=== PATIENT | female | born 1970 | race Caucasian/White ===

== ENCOUNTER 2022-04-23 15:22 | Outpatient (CLI) | payer BC, SELFPAY ==
--- OUTSIDE RECORDS SUMMARY | 2022-04-23 15:31 | XMS_ITS ---
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 Problem Chronic fatigue R53.82 Active 5270 2002 ALLERGIES No Known Allergies ENCOUNTERS Encounter Location Date Diagnosis [facility], [place] and [place], [place] climacteric sta latonya N95.1 [address] and Acute axilla ry lymphadenitis L0 4.2 [facility] [address] 15 Sep, 2021 Encounter f or cervical Pap [place] smear with pelvi c exam [address] Z01.419 ; Screen ing for hypothyroidism Z 13.29 ; Climacteric synd gurjit N95.1 ; Weight gain R6 3.5 and Pain in other criselda int M25.[address] [facility] [address] Sep, [place] climacteric sta latonya N95.1 ; [address] Chronic fatigue R53.82 ; Pain in other criselda int M25.59 ; Lymphadenitis I88.9 and Weight gain R63. 5 IMMUNIZATIONS No Known Immunizations SOCIAL HISTORY Qualifiers Date Never Smoker REASON FOR REFERRAL FUNCTIONAL STATUS PLAN OF CARE Activity Details Future Appointment Provider Name:Nabeel Colby, 2022-05-24 10:00:00 AM, [address] [place], [address], VITAL SIGNS Height 60 in 2021-09-17 Weight 151.4 lbs 2021-09-17 BMI 29.57 kg/m2 2021-09-17 Blood pressure systolic 128 mm Hg 2021-09-17 Blood pressure diastolic 68 mm Hg 2021-09-17 MEDICATIONS Medication Instructions Dosage Frequency Start Date End Date Duration S tatus Cyclobenzaprine HCl Acti ve Calcium Active Vitamin D3 Active Probiotic Active PROCEDURES Procedure Date Ordered Result Body Site ASSAY OF SEX HORMONE GLOBUL Sep 18, 2021 GONADOTROPIN (LH) Sep 18, 2021 ASSAY OF PROLACTIN Sep 18, 2021 GONADOTROPIN (FSH) Sep 18, 2021 ASSAY OF ESTRADIOL Sep 18, 2021 DEHYDROEPIANDROSTERONE Sep 18, 2021 TOTAL CORTISOL Sep 18, 2021 ASSAY THYROID STIM HORMONE Sep 18, 2021 ASSAY OF TOTAL TESTOSTERONE Sep 18, 2021 ASSAY OF TESTOSTERONE Sep 18, 2021 COMPLETE CBC W/AUTO DIFF WBC Sep 18, 2021 RESULTS Name Result Date Reference Range CBC (INCLUDES DIFF/PLT) 2021-09-17 ABSOLUTE BASOPHILS 32 0-200 ABSOLUTE EOSINOPHILS 103 15-500 ABSOLUTE LYMPHOCYTES 2258 696-2352 ABSOLUTE MONOCYTES 697 200-950 ABSOLUTE NEUTROPHILS 3105 0030-7098 BASOPHILS 0.6 EOSINOPHILS 1.9 HEMATOCRIT 40.8 35.0-45.0 HEMOGLOBIN 13.7 11.7-15.5 LYMPHOCYTES 27.1 MCH 28.7 27.0-33.0 MCHC 33.6 32.0-36.0 MCV 85.5 80.0-100.0 MONOCYTES 12.9 MPV 9.3 7.5-12.5 NEUTROPHILS 57.5 PLATELET COUNT 291 140-400 RDW 13.0 11.0-15.0 RED BLOOD CELL COUNT 4.77 3.80-5.10 WHITE BLOOD CELL COUNT 5.4 3.8-10.8 ESTRADIOL 2021-09-17 ESTRADIOL <15 DHEA SULFATE 2021-09-17 DHEA SULFATE 26 5-167 FSH 2021-09-17 FSH 198.0 LH 2021-09-17 LH 57.3 PROLACTIN 2021-09-17 PROLACTIN 8.1 CORTISOL, TOTAL 2021-09-17 CORTISOL, TOTAL 4.1 TSH 2021-09-17 TSH 1.32 SEX HORMONE BINDING GLOBULIN 2021-09-17 SEX HORMONE BINDING GLOBULIN 55 17- 124 TESTOSTERONE, TOTAL, LC/MS/MS 2021-09-17 TESTOSTERONE, TOTAL, MS 14 2-45 TESTOSTERONE, FREE 2021-09-17 TESTOSTERONE, FREE 1.1 0.2-5.0 REASON FOR VISIT Insurance Providers [facility]ly [facility] Health Member Patient Patient Patient Patient Patient Subscriber Subscriber Subscriber Group Insurance Plan Plan Plan Plan ID Relationship Address Phone Name Date of ID Name Date of No Type Insurance Insurance Insurance Coverage to Subscriber Address Phone Name Dates BCBS [address] [place] self [place] [id number] [place] [id number] [address] [facility] [id number] MEDICAL (GENERAL) HISTORY Type Description Date Medical History Arthritits Surgical History Tonsils/adenoids- childhood Surgical History tubes as child Surgical History shoulder surgery 2018 Surgical History carpal tunnel surgery 95 and 96 Surgical History low back fusion Surgical History neck fusion 2008 Surgical History breast implants 2011 breast reduction 20 08 Surgical History hernia repair 2019
--- OUTSIDE RECORDS SUMMARY | 2022-04-23 15:31 | XMS_ITS | Clinical Summary ---
:1970 Author Organization [facility] [place] [address] Care Team Providers Name Role Phone Nonstaff, Doctor Primary Care Provider Unavailable Allergies Active Allergy Reactions Severity Noted Date Comments Mold *Unknown 01/30/2017 sinus infection Medications Medication Sig Dispensed Refills Start Date End Date Status pregabalin (LYRICA) 100 Take 75 mg by 0 Active mg capsule mouth. Lactobac 0 Active no.41-Bifidobact no.7 (PROBIOTIC-10) 70 mg (3 billion cell) cap acetaminophen (TYLENOL Take 500 mg by 0 Active EXTRA STRGTH) 500 mg mouth. tablet acetaminophen-codeine, Take 1-2 Tabs by 0 05/09/2018 Active 300-30 mg, mouth. (TYLENOL-CODEINE #3) tablet azithromycin (ZITHROMAX) TAKE 2 TABLETS 0 09/10/2018 Active 250 mg tablet BY MOUTH FOR ONE DAY THEN ONE TABLET DAILY FOR FOUR DAYS cefdinir (OMNICEF) 300 TAKE ONE CAPSULE 0 09/04/2018 Active mg capsule BY MOUTH TWICE A DAY FOR 10 DAYS cyclobenzaprine Take 10 mg by 0 Active (FLEXERIL) 10 mg tablet mouth. LYRICA 75 mg capsule 0 10/07/2018 Active Active Problems No known active problems Social History Tobacco Use Types Packs/Day Years Used Date Never Assessed Sex Assigned at Date Recorded Not on file Obstetrics History Last Filed Vital Signs Vital Sign Reading Time Taken Comments Blood Pressure - - Pulse - - Temperature - - Respiratory Rate - - Oxygen Saturation - - Inhaled Oxygen Concentration - - Weight 59 kg (130 lb) 10/20/2018 8:18 AM CDT Height 152.4 cm (5') 10/20/2018 8:18 AM CDT Body Mass Index 25.39 10/20/2018 8:18 AM CDT Plan of Treatment Health Maintenance Due Date Last Done Comments COVID-19 vaccine series (#1) 1970 Tdap 1979 Depression screening for age 12+ 1980 Hepatitis C screening for age 1005/29/1986 18-79 Tetanus booster 1988 Colonoscopy through age 75 2013 Lipids for age 45-75 2013 Mammogram for age 45-75 2013 Zoster (shingles) series for age 1005/29/2018 50+ (1 of 2) BMI (ht and wt on same day) for 10/21/2019 10/20/2018 age 18+ Pap test for age 21-65 10/16/2021 10/16/2018, 10/16/2018, 08/19/2013, Additional history exists Influenza for age 50-64 04/04/2022 Results Not on filefrom Last 3 Months Insurance Payer Benefit Plan / Subscriber ID Effective Dates Phone Addre ss Type Group BLUE CROSS BLUE CROSS OF [id number] 2017-Present [address] [place] [address] Care Teams Handling Tech Relationship Specialty Start Date End Date Nonstaff, Doctor PCP - General 06/14/11 NON STAFF DOCTOR
--- OUTSIDE RECORDS SUMMARY | 2022-04-23 15:32 | XMS_ITS | Encounter Summary ---
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 #1: Juan - Phone 1: [phone] Health and Illness - Reason for Admission heriated disc perfusion c6-7 as Stated by Patient Role Relationships/Living Environment - Significant spouse; child; 2 children (16 & 14 y.o.) Relationships - Primary parent; wage earner Roles/Responsibiliti_ es - 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; 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 For - Lives With children; spouse - Living Arrangements house; Main floor, upstairs, basement - Home Accessibility stairs w/i home; stairs to enter home; stairs (1 railing present) - Number of Stairs to 5 Enter Home - Number of Stairs 18 Within Home - Transportation family or friend will provide Available Review of Systems - Usual Activity moderate Tolerance - Regular Exercise yes - Exercise Type walking; running prior to january - Exercise 5-7 times/wk Amount/Frequency - Equipment Currently no Used at Home - Ambulation 0 - Independent with ambulation - Transferring 0 - Independent with transfers - Toileting 0- Independent with toileting - Bathing 4- Completely dependent for bathing - Dressing 4- Completely dependent for dressing - Eating 0- Independent with eating - Swallowing no swallowing issues reported - Cognition no cognition issues reported - Communication/speech no speech or language problems - Fall history within No history of falls last six months - Which of the above none functional risks had a recent onset or change? - Influenza vaccine N/A; Not currently flu season (11/02 - 05/03) - Pneumococcal Vaccine never immunized BERNICE Pressley (PT)[Signed 08:58] Authored: Role Relationships/Living Environment, Review of Systems WENDY GIANG (RN)[Signed 17:03] Authored: General Information, Health and Illness, Review of Systems Interface, Recycling Program Manager - 10/20/2010 9:18 PM CDT Progress Note - :: D: Pt arrived from PACU 1445 post ACDF, L illiac graft. VSS. Neuro's intact. Dsg anterior neck is CDI, NIYA draining scant serosanguious drainage. Pt nauseous, vomited x2, some retching. LS clear, BS hypo. IV infusing L hand. Assisted to BR x2. PVR showed 447cc. Pt would like to try to void again before being cathed. Tolerating sips of clears. Rates pain @ 4, declines pain med @ this time. I/A; Instructed in pain managment plan and to ask if she needs anything. Medicated for nausea x1. Pt has menses. Will moniter UO, straight cath if unable to empty adequately. Instructed on IS, uses with encouragement. P: Continue with POC. Signatures WENDY GIANG (RN)[Signed 18:11] Authored: Progress Note documented in this encounter Plan of Treatment Not on filedocumented as of this encounter Visit Diagnoses Not on filedocumented in this encounter
--- OUTSIDE RECORDS SUMMARY | 2022-04-23 15:32 | XMS_ITS | Encounter Summary ---
:1970 Author Organization [facility] Address [address] [place] [address] Care Team Providers Name Role Phone Unavailable Primary Care Provider Unavailable Encounter Details Date Type Department Care Team Description 03/10/2009 Office Visit-[place] [address] [place], [place] [address] (Wo rk) Social History Tobacco Use Types Packs/Day Years Used Date Never Assessed Sex Assigned at Date Recorded Not on file documented as of this encounter Progress Notes Bishop Smith MD - 03/10/2009 1:30 PM CDT Director Of Field Coordination: Aliyah Keane Status: Amended, Final Encounter: 10 Mar 2009 Type: Rooming Note Reason For Visit Neck pain/herniated cervial disk Do you have any other appointments, tests or procedures within the [facility] system for this same day? No. Pain Eval Current history of pain associated with this visit is as follows: Location: neck, bilateral upper extremities Quality: Severity: 7-8 (Pain scale 1-10, with 10 being the worst) Duration: constant Timing: constant Context: Modifying factors: Associated signs/symptoms: Personal Hx Behavioral history: No tobacco use. Home environment: No secondhand tobacco smoke in home. Vital Signs Recorded by tswi on 10 Mar 2009 01:44 PM BP:115/70, RUE, Sitting, HR: 89 b/min, Height: 60 in, Weight: 127.5 lb, BMI: 24.9 kg/m2, Pain Scale: 8. Current Meds Multivitamin/Iron TABS;TAKE 1 TABLET ONCE DAILY.; RPT Ibuprofen 200 TABS;TAKE 1 TABLET EVERY 6 HOURS NEEDED.; RPT. Signature Signed By: Aliyah Keane RN; 03/10/2009 1:45 PM SCRUB TECH. Signed By: Aliyah Keane RN; 03/10/2009 2:44 PM SCRUB TECH. Signed By: Aliyah Keane RN; 03/10/2009 4:13 PM SCRUB TECH. Bishop Smith MD - 03/10/2009 1:30 PM CDT Director Of Field Coordination: Bishop Smith Status: Final - Signature Encounter: 10 Mar 2009 Type: Neurosurgery Letter Department of Neurosurgery [address] [facility] [address] [place] [address] [facility] First Floor, Clinic [address] [place] [address] March 10, 2009 Lor Grimaldo MD [address] [place] [address] RE: Josie Booker : 1970 AROLDO: 03/10/[address] Grimaldo: It was pleasure to see Ms. Booker today in consultation for her cervical radiculopathy. As you knowglynn is a 38-year-old female who has had a several year history of neck pain. However, over the last month or two this neck pain has worsened and has started to cause problems with tingling and pain in the right arm as well as some mild tingling in the left arm. She also reports having some mild neck spasms. The patient has tried several modes of conservative therapy including cervical traction, chiropractic, physical therapy and epidural injections. These have all helped somewhat however, these haveall eventually worn off and she is left with her worsening pain. For her past medical, family, social history was reviewed and the patient filled out a neurosurgicalservices patient health history form which is scanned into the medical record. Of note the patient has previously had a lumbar fusion for spondylolisthesis. She also has had carpal tunnel surgery, otherwise she is in good health and is quite physically fit. Current medications include ibuprofen and Tylenol with codeine. 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 On examination the patient is awake, alert, and oriented, in no apparent distress. Speech is fluent and clear. The patient is oriented to person, place and time. Pupils are equal, round and reactive tolight. Extraocular movements are intact. Facial sensation is intact to light touch. Hearing is intact to speech. Facial movements are full and symmetric. Tongue is midline. Palate elevates symmetrically. Shoulder shrug is 5/5 bilaterally. Strength in upper extremities is 5/5 in all muscle groups. Strength in her lower extremities is 5/5 in all muscle groups bilaterally. Reflexes are normal and symmetric with 1 bilaterally in the triceps and biceps and 1 in the quadriceps. To pinprick testing the patient does not have any obvious sensory loss. Imaging: On review of her imaging the patient has a fairly large right-sided C6- 7 herniated disc. This is superimposed on a picture of a mild multilevel degenerative disease. Assessment: Right C7 radiculopathy with C6-7 herniated disc. Plan: I had a long discussion with Ms. Booker today about the treatment options for this. The patient has already tried multiple nonoperative management strategies. I do not have much to add in regards to this. The patient is clearly frustrated with her lack of her improvement given what she has tried so far and is eager to be rid of her pain. For cervical radiculopathy there are two potential treatment options, one would be C6-7 anterior cervical discectomy and fusion and the second would be a right C6-7 foraminotomy and posterior discectomy. The advantages and disadvantages of these were discussed with the patient. The disadvantage of the anterior surgery would be that it would be a fusion and that this could eventually lead to accelerated degeneration advancement to the level of the fusion, although relatively speaking this risk if not that great in magnitude however, the advantages that a fusion would eliminate any risk in the future of further problem at this level. A posterior cervical foraminotomy and discectomy would have the disadvantage of potentially causing more neck pain althoughI do this through a minimally invasive approach, which usually neck pain is not too problematic, butin not performing a fusion it is possible to have recurrent symptoms from more problems at this level in the future. I have discussed these problems at length with the patient and her . While the patient and her seem eager to proceed with surgery she would like the weekend to think about it, especially which approach she would prefer me to take. I stated that my first choice would probably be the anterior cervical discectomy and fusion but that the posterior approach would bequite reasonable as well. The patient is planning on calling when they return from out of town on Friday and we will discuss which approach and when we will perform the surgery. Thank you very much for this kind referral. Sincerely, Bishop Smith M.D. Crusher Assembler Department of Neurosurgery MEDINA:11 Electronically signed by:Bishop Smith M.D. Mar 15 2009 7:38AM SCRUB TECH Author documented in this encounter Plan of Treatment Not on filedocumented as of this encounter Visit Diagnoses Not on filedocumented in this encounter
--- OUTSIDE RECORDS SUMMARY | 2022-04-23 15:32 | XMS_ITS | Encounter Summary ---
:1970 Author Organization [facility] Address [address] [place] [address]. [place] [address] Care Team Providers Name Role Phone [facility] Primary Care Provide r Reason for Referral Diagnostic Imaging XR (Routine) - Closed Specialty Diagnoses / Procedures Referred By Contact Refer red To Contact Diagnoses Oropharyngeal dysphagia Richard Mullins MD Procedures XR Video Swallow with MALTED MILK SUPERVISOR or OT [facility] [address] [place] [address] Referral ID Status Reason Start Date Expiration Date Visits Requ ested Visits Authorized [id number] Closed 11/23/2021 11/23/2022 1 1 Reason for Visit Diagnostic Imaging XR (Routine) - Closed Specialty Diagnoses / Procedures Referred By Contact Refer red To Contact Diagnoses Oropharyngeal dysphagia Richard Mullins MD Procedures XR Video Swallow with MALTED MILK SUPERVISOR or OT [facility] [address] [place] [address] Referral ID Status Reason Start Date Expiration Date Visits Requ ested Visits Authorized [id number] Closed 11/23/2021 11/23/2022 1 1 Encounter Details Date Type Department Care Team Description 12/13/2021 Hospital Encounter [facility] Richard Mullins O ropharyngeal [facility] MD dysphagia [address] GA[place] [address] [phone] [address] [place] [address] Social History Tobacco Use Types Packs/Day Years Used Date Never Smoker Alcohol Use Standard Drinks/Week Comments Yes 0 (1 standard drink = 0.6 oz pure alcoho l) Sex Assigned at Date Recorded Not on file COVID-19 Exposure Response Date Recorded In the last 10 days, have you been in contact with No / Unsu re 12/13/2021 1:43 PM CDT someone who was confirmed or suspected to have Coronavirus/COVID-19? documented as of this encounter Medications at Time of Discharge Medication Sig Dispensed Refills Start Date End Date acetaminophen-codeine Take 1-2 tablets by 12 tablet 0 05/09 (TYLENOL WITH CODEINE #3) mouth every 6 hours 300-30 MG per tablet as needed for pain CYCLOBENZAPRINE HCL PO 0 oxyCODONE-acetaminophen Take 1-2 tablets by 15 tablet 0 (PERCOCET) 5-325 MG per mouth every 4 hours tablet as needed for moderate to severe pain Pregabalin (LYRICA PO) Take 75 mg by mouth 2 0 times daily Vitamins A & D (VITAMIN A Apply topically as 0 & D) ointment needed for dry skin or irritation documented as of this encounter Plan of Treatment Not on filedocumented as of this encounter Procedures Procedure Name Priority Date/Time Associated Diagnosis Comme nts XR VIDEO SWALLOW Routine 12/13/2021 2:18 PM Oropharyngeal Resu lts for this WITH MALTED MILK SUPERVISOR OR OT CDT dysphagia procedure are in the results section. documented in this encounter Results XR Video Swallow with MALTED MILK SUPERVISOR or OT (12/13/2021 2:18 PM CDT) Anatomical Region Laterality Modality Radio Fluoroscopy Specimen (Source) Anatomical Location Collection Method / Collectio n Time Received Time / Laterality Volume Impressions 12/13/2021 4:18 PM CDT IMPRESSION: 1. No aspiration or penetration. 2. Please refer to the speech pathology report for further details. This study includes only the cervical es ophagus. EVER MONTALVO MD Narrative 12/13/2021 4:18 PM CDT VIDEO SWALLOW WITH MALTED MILK SUPERVISOR OR OT ?? 12/13/2021 2:18 PM HISTORY: Oropharyngeal dysphagia. COMPARISON: None. FINDINGS: ??A swallow study was performe d in coordination with a member from the speech pathology service. Total fluoroscopy time was 0.6 minutes. 10 spot fluoroscopic images, an d/or cine clips were obtained. 1 view in lateral projection. Various co nsistencies of barium were given to the patient to swallow, and the swallowing mechanism was observed using fluoroscopy. No aspiration or penetration. Normal pil l swallowing. Procedure Note Ever Montalvo MD - 12/13/2021Forma tting of this note might be different from the original. VIDEO SWALLOW WITH MALTED MILK SUPERVISOR OR OT 12/13/2021 2 :18 PM HISTORY: Oropharyngeal dysphagia. COMPARISON: None. FINDINGS: A swallow study was performed in coordination with a member from the speech pathology service. Total fluoroscopy time was 0.6 minutes. 10 spot fluoroscopic images, an d/or cine clips were obtained. 1 view in lateral projection. Various co nsistencies of barium were given to the patient to swallow, and the swallowing mechanism was observed using fluoroscopy. No aspiration or penetration. Normal pil l swallowing. IMPRESSION: 1. No aspiration or penetration. 2. Please refer to the speech pathology report for further details. This study includes only the cervical es ophagus. EVER MONTALVO MD Richard Mullins MD IMG DIAGNOSTIC IMAGING ORDER PORSHA documented in this encounter Visit Diagnoses Diagnosis Oropharyngeal dysphagia Dysphagia, oropharyngeal phase documented in this encounter Administered Medications Inactive Administered Medications - up to 3 most recent administrations Medication Order MAR Action Action Date Dose Rate Site barium sulfate (EZ-DISK) 700 MG tablet Starting on Yadira 12/13/21 at 1400, For 1 dose, Kerry Burgess: cabinet override barium sulfate (EZ-DISK) tablet 700 mg Given 12/13/2021 2:09 PM CDT 700 mg 700 mg, Oral, ONCE, On Yadira 12/13/21 at 1430, For 1 dose barium sulfate (VARIBAR THIN Liquid) 40 % oral Given 0 12/13/2021 2:08 PM CDT 24 g suspension 24 g 24 g (60 mL), Oral, ONCE, On Yadira 12/13/21 at 1430, For 1 dose barium sulfate (VARIBAR) 40 % pudding/paste Given 12/13/2021 2:09 PM CDT 20 mLs 20 mL 20 mL, Oral, ONCE, On Yadira 12/13/21 at 1430, For 1 dose documented in this encounter Care Teams Display Associate Relationship Specialty Start Date End Date Clinic, [facility] PCP - General 05/09/[address] [place] [address] documented as of this encounter
--- OUTSIDE RECORDS SUMMARY | 2022-04-23 15:32 | XMS_ITS | Encounter Summary ---
:1970 Author Organization [facility] Address [address] [place] [address] Care Team Providers Name Role Phone Unavailable Primary Care Provider Unavailable Encounter Details Date Type Department Care Team Description 03/10/2009 Office Visit-[facility] INTERFACE [facility] DEPT Unknown, Provider Social History Tobacco Use Types Packs/Day Years Used Date Never Assessed Sex Assigned at Date Recorded Not on file documented as of this encounter Progress Notes Unknown, Provider - 03/10/2009 1:30 PM CDT Air Motor Repairer: Aliyah Keane Status: Final Encounter: 10 Mar 2009 Type: Teaching Flowsheet Teaching Flowsheet Relevant Diagnosis: herniated cervical disk Teaching Topic:pre op teaching Person(s) involved in teaching: Patient Spouse Motivation Level: Asks Questions: Yes Eager to Learn: Yes Cooperative: Yes Receptive (willing/able to accept information): Yes Patient Family demonstrates understanding of the following: Reason for the appointment, diagnosis and treatment plan: Yes Knowledge of proper use of medications and conditions for which they are ordered (with special attention to potential side effects or drug interactions): Yes Which situations necessitate calling provider and whom to contact: Yes Teaching Concerns Addressed Pre-op Teaching Discussed pre-op routine and requirements to include: surgical procedure, post- op recovery and expectations, need for H&P, NPO prior to OR, pre-op antibacterial showers, pain control and importanceof follow-up visits. Surgery scheduling will coordinate OR time/date and update patient as appropriate. 3C will call with more instructions 24-48 hour pre-op. Ample time was provided for patient questions and in-depth discussion of topics of heightened interest. An eight ounce bottle of antibacterial soap solution was given to patient as well as specific instructions for use. Patient/family/significant other verbalized understanding of instructions. Approximately 20 minutes spent with patient and family discussing and reviewing. Proper use and care of pre op folder and technicare (medical equip, care aids, etc.): Yes Nutritional needs and diet plan: Yes Pain management techniques: Yes Wound Care: Yes How and/when to access community resources: Yes Instructional Materials Used/Given: pre op folder and technicare. Signature Signed By: Aliyah Keane RN; 03/10/2009 2:48 PM PLASTIC SURGEON. documented in this encounter Plan of Treatment Not on filedocumented as of this encounter Visit Diagnoses Not on filedocumented in this encounter
--- OUTSIDE RECORDS SUMMARY | 2022-04-23 15:32 | XMS_ITS | Encounter Summary ---
:1970 Author Organization [facility] Address [address] [place] [address] Care Team Providers Name Role Phone Unavailable Primary Care Provider Unavailable Encounter Details Date Type Department Care Team Description 03/20/2009 Discharge Summary [facility] Richar Mackay (Needle Control Cheniller) [facility] MD Axel Results [facility] [address] [place], [place] [address] (Wo rk) Social History Tobacco Use Types Packs/Day Years Used Date Never Assessed Sex Assigned at Date Recorded Not on file documented as of this encounter Progress Notes Richar Dupree - 04/05/2009 8:29 AM CDT FINAL REVISED On the day of admission, Ms. Thomason underwent an uncomplicated anterior cervical decompression andfusion at C6-C7 for a large disk herniation. The surgery went well. She awoke, was neurologically intact. Her voice was working well. Her arm pain is much relieved and her triceps and other C7 enervated muscles are showing early recovery. She was able to be discharged home on the afternoon of the first postoperative day with Percocet and Valium for pain management. She will be seen in the outpatient setting in 1 week's time for further clinical follow-up. Revised account #: 04/05/2009, hn Electronically signed on 04/05/2009 08:27 by RICHAR DUPREE MD MT: Name: RAHAT THOMASON MRN: [id number] Account: [id number] : 1970 Admit Date: [id number] Discharge Date: 03/21/2009 Document: [id number] documented in this encounter Plan of Treatment Not on filedocumented as of this encounter Visit Diagnoses Not on filedocumented in this encounter
--- OUTSIDE RECORDS SUMMARY | 2022-04-23 15:32 | XMS_ITS | Clinical Summary ---
:1970 Author Organization [facility] Address [address] [place] [address] Care Team Providers Name Role Phone Clinic, [facility] Primary Care Provide r Allergies No known active allergies Medications Medication Sig Dispensed Refills Start Date End Date Status Vitamins A & D (VITAMIN Apply topically 0 Active A & D) ointment as needed for dry skin or irritation oxyCODONE-acetaminophen Take 1-2 tablets 15 tablet 0 4 Active (PERCOCET) 5-325 MG per by mouth every 4 tablet hours as needed for moderate to severe pain Pregabalin (LYRICA PO) Take 75 mg by 0 Active mouth 2 times daily CYCLOBENZAPRINE HCL PO 0 Active acetaminophen-codeine Take 1-2 tablets 12 tablet 0 05/09/2018 Active (TYLENOL WITH CODEINE by mouth every 6 #3) 300-30 MG per hours as needed tablet for pain Social History Tobacco Use Types Packs/Day Years Used Date Never Smoker Alcohol Use Standard Drinks/Week Comments Yes 0 (1 standard drink = 0.6 oz pure alcoho l) Sex Assigned at Date Recorded Not on file Last Filed Vital Signs Vital Sign Reading Time Taken Comments Blood Pressure 111/69 05/09/2018 3:30 AM CDT Pulse 76 05/09/2018 5:18 AM CDT Temperature 36.6 ??C (97.9 ??F) 05/09/2018 12:20 AM CDT Respiratory Rate 16 05/09/2018 5:18 AM CDT Oxygen Saturation 99% 05/09/2018 5:18 AM CDT Inhaled Oxygen Concentration - - Weight 58.5 kg (129 lb) 06/24/2014 7:51 PM INSTRUMENTATION AND CONTROLS TECHNICIAN Height 152.4 cm (5') 06/24/2014 7:51 PM INSTRUMENTATION AND CONTROLS TECHNICIAN Body Mass Index 25.19 06/24/2014 7:51 PM INSTRUMENTATION AND CONTROLS TECHNICIAN Plan of Treatment Health Maintenance Due Date Last Done Comments ADVANCE CARE PLANNING 1970 ANNUAL REVIEW OF HM ORDERS 1968 CT COLONOGRAPHY 1968 FIT-DNA (Cologuard) 1970 FIT 1970 FLEX SIG 1970 MAMMO SCREENING 1970 PREVENTIVE CARE VISIT 1968 COLONOSCOPY 1978 COLORECTAL CANCER SCREENING 1978 HIV SCREENING 1983 HEPATITIS C SCREENING 1986 PAP 1989 LIPID 2013 ZOSTER IMMUNIZATION (1 of 2018 2) PHQ-2 (once per calendar 08/04/2021 year) COVID-19 Vaccine (4 - 10/06/2021 06/08/2021, 10/27/2020, Booster for Moderna series) 09/28/2020 INFLUENZA VACCINE (#1) 2022 04/28/2020, 05/31/2019, 05/31/2019, Additional history exists DTAP/TDAP/TD IMMUNIZATION 05/07/2022 05/07/2012, 02/23/2009 , (5 - Td or Tdap) 04/27/1999, Additional history exists HEPATITIS B IMMUNIZATION Aged Out 02/24/2015, 01/19/2015 No longer eligible based on patient 's age to complete this topic IPV IMMUNIZATION Aged Out No longer eligi ble based on patient 's age to complete this topic MENINGITIS IMMUNIZATION Aged Out No longe r eligible based on patient 's age to complete this topic Pneumococcal Vaccine: Aged Out No longer eligible Pediatrics (0 to 5 Years) based on patient's age and At-Risk Patients (6 to to co mplete this topic 64 Years) Insurance Payer Benefit Plan / Subscriber ID Effective Dates Phone Addre ss Type Group BCBS [place] OF [place] [id number] 2017-[employer] [phone] [address] [address] Indemnity t 0 [place]EL [id number] Care Teams Concrete Vibrator Operator Relationship Specialty Start Date End Date Clinic, [facility] PCP - General 05/09/[address] [place] [address]
--- OUTSIDE RECORDS SUMMARY | 2022-04-23 15:32 | XMS_ITS | Encounter Summary ---
:1970 Author Organization [facility] Address [address] [place] [address]. [place] [address] Care Team Providers Name Role Phone [facility] Primary Care Provide r Reason for Referral Rehab Therapy Integrated Services (Routine) - Authorized Specialty Diagnoses / Procedures Referred By Contact Refer red To Contact Diagnoses Oropharyngeal dysphagia [address] [place] [address] Phone: Referral ID Status Reason Start Date Expiration Date Visits V isits Requested Authorized [id number] Authorized 11/23/2021 08/03/2022 365 365 Encounter Details Date Type Department Care Team Description 11/23/2021 Transcribe Orders GENERIC EXTERNAL Richard Mullins, Sydnie pharyngeal DATA DEPARTMENT dysphagia (Primary Dx) [facility] [address] [place], [place] [address] Social History Tobacco Use Types Packs/Day Years Used Date Never Smoker Alcohol Use Standard Drinks/Week Comments Yes 0 (1 standard drink = 0.6 oz pure alcoho l) Sex Assigned at Date Recorded Not on file documented as of this encounter Plan of Treatment Scheduled Referrals Name Type Priority Associated Diagnoses Order S chedule Speech Therapy Referral Referral Routine Oropharyngeal dys phagia Ordered: 11/23/2021 documented as of this encounter Visit Diagnoses Diagnosis Oropharyngeal dysphagia - Primary Dysphagia, oropharyngeal phase documented in this encounter Care Teams Emr Specialist Relationship Specialty Start Date End Date [facility] PCP - General 05/09/18 [address] [place] [address] documented as of this encounter
--- OUTSIDE RECORDS SUMMARY | 2022-04-23 15:32 | XMS_ITS | Encounter Summary ---
:1970 Author Organization [facility] Address [address] [place] [address]. [place] [address] Care Team Providers Name Role Phone [facility] Primary Care Provide r Reason for Visit Rehab Therapy Integrated Services (Routine) - Authorized Specialty Diagnoses / Procedures Referred By Contact Refer red To Contact Diagnoses Oropharyngeal dysphagia [address] [address] Phone: Referral ID Status Reason Start Date Expiration Date Visits V isits Requested Authorized [id number] Authorized 11/23/2021 08/03/2022 365 365 Encounter Details Date Type Department Care Team Description 12/13/2021 Hospital Encounter [facility] Adwoa Mullins MD [facility] [address] [place] [address] Rehabilitation Services Janell Chowdhury, SUPERVISOR [employer] [facility] [address] [place] [address] Social History Tobacco Use Types Packs/Day Years [...] or irritation documented as of this encounter Progress Notes Janell Chowdhury, SUPERVIS[employer] - 12/13/2021 2:58 PM CDT Video Fluoroscopic Swallow Study (VFSS): 12/13/21 1400 General Information Type Of Visit Initial Start Of Care Date 12/13/21 Referring Physician Richard Mullins MD ([facility]) Orders Evaluate And Treat Medical Diagnosis oropharyngeal dysphagia R13.12 Onset Of Illness/injury Or Date Of Surgery 11/19/21 (order date) Precautions/limitations No Known Precautions/limitations Hearing WFL Pertinent History of Current Problem/OT: Additional Occupational Profile Info Referral from pt's GI provider to assess oropharyngeal swallow function in the context of the following dysphagia symptoms: difficulty swallowing foods such as breads, feeling as if they stick near thelevel of the sternal notch. She has had the following esophageal assessments completed within the last 3 months: esophaghram (per pt results showed classic acid reflux) and EGD (per patient no significant findings). She reports getting medical care through multiple different health care entities (e.g., most recently with [facility], [place] [facility]) and I do not have access to all her PMHx/notes/testing within my EMR. Per patient, her PMHx includes: C6-7 anterior cervical fusion ~ 9 years ago. She reports she has recently been diagnosed with fibromyalgia, chronic fatigue syndrome and a neural desensitizedsyndrome. During a recent test she reports that an unidentified lesion was found at C2, provider at [place] is ordering an MRI for further assessment though this has not been completed. She says work up for MS is occuring as well. Respiratory Status Room air Prior Level Of Function Swallowing Prior Level Of Function Comment Regular solid foods/thin liquids. Recently has been taking extra time to chew her food thoroughly. 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 Patient Role/employment History Employed Patient/family Goals To figure out what's causing her dysphagia symptoms Abuse Screen (yes response referral indicated) Feels Unsafe at Home or Work/School no Feels Threatened by Someone no Does Anyone Try to Keep You From Having Contact with Others or Doing Things Outside Your Home? no Physical Signs of Abuse Present no VFSS Evaluation VFSS Additional Documentation Yes VFSS Eval: Radiology Radiologist Dr. Montalvo Views Taken left lateral;A/P Physical Location of Procedure [facility], Radiology Dept, Fluoroscopy Suite VFSS Eval: Thin Liquid Texture Trial Mode of Presentation, Thin Liquid cup;straw;self-fed Order of Presentation 1, 2, 7 Preparatory Phase WFL Oral Phase, Thin Liquid Premature pharyngeal entry Pharyngeal Phase, Thin Liquid Delayed swallow reflex Rosenbek's Penetration Aspiration Scale: Thin Liquid Trial Results 2 - contrast enters airway, remains above the vocal cords, no residue remains (penetration) Diagnostic Statement Flash laryngeal penetration with thin liquids 2/2 premature bolus spillage, though this is deemed functional. VFSS Eval: Puree Solid Texture Trial Mode of Presentation, Puree spoon;self-fed Order of Presentation 3 Preparatory Phase WFL Oral Phase, Puree WFL Pharyngeal Phase, Puree WFL Rosenbek's Penetration Aspiration Scale: Puree Food Trial Results 1 - no aspiration, contrast does not enter airway VFSS Eval: Regular Texture Trial (Solid) Mode of Presentation self-fed Order of Presentation 4, 5, 6; barium tablet: 8, 9, 10 Preparatory Phase WFL Oral Phase WFL Pharyngeal Phase WFL Rosenbek's Penetration Aspiration Scale 1 - no aspiration, contrast does not enter airway Diagnostic Statement No pharyngeal bolus retention observed even when pt verbalized beginning of sensation of food sticking, pointing to level of sternal notch (after 2nd and 3rd gosia cracker bites in a row, videos 5/6) -- by time esophageal sweep was completed, no retention was observed within esophagus either. Barium tablet with notable slow movement through esophagus, requiring x3 extra sips of water for it to enter the stomach Esophageal Phase of Swallow Patient reports or presents with symptoms of esophageal dysphagia Yes Esophageal sweep performed during today???s vidofluoroscopic exam Yes;Please refer to radiologist's report for details Esophageal comments No barium residuals observed in esophagus during esophageal sweep; Barium tabletwith notable slow movement through esophagus, requiring x3 extra sips of water for it to enter the stomach Swallow Eval: Clinical Impressions Skilled Criteria for Therapy Intervention No problems identified which require skilled intervention Functional Assessment Scale (FAS) 6 Dysphagia Outcome Severity Scale (KEVYN) Level 6 - KEVYN Treatment Diagnosis functional oropharyngeal swallow Diet texture recommendations Regular diet;Thin liquids (level 0) Recommended Feeding/Eating Techniques alternate between small bites and sips of food/liquid (chew thorroghly --- strategies for esophageal clearance) Demonstrates Need for Referral to Another Service (back to GI provider) Anticipated Discharge Disposition home Patient, family and/or staff in agreement with Plan of Care Yes Clinical Impression Comments Pt presents with no appreciable oropharyngeal dysphagia, swallow within functional limits (WFL), on video fluoroscopic swallow study. Pt assessed with thin liquids, puree solids, regular solids and 13 mm barium tablet in lateral and anteroposterior (A/P) positioning. Mastication WFL, anterior to posterior bolus oral transit WFL and oral clearance WFL. Premature bolus spillage to the pyriform sinuses with thin liquids without significant delay (judged WFL); timely pharyngeal swallow at the base of tongue with solids. Base of tongue retraction WFL, hyolaryngeal elevation/excursion WFL, epiglottic inversion WFL/complete and upper esophageal sphincter relaxation during the swallow WFL. Symmetrical bolus transfer through pharynx in A/P view. Flash laryngeal penetration with thin liquids 2/2 premature bolus spillage, though this is deemed functional. No pharyngeal bolus retention observed even when pt verbalized beginning of sensation of food sticking, pointing to level of sternal notch (after 2nd and 3rd gosia cracker bites in a row, videos 5/6) -- by time esophageal sweep was completed, no retention was observed within esophagus either. Barium tablet with notable slow movement through esophagus, requiring x3 extra sips of water for it to enterthe stomach. Pt inquiring re: C6-7 cervical hardware's possible effects on swallow - I educated her that I do notsee any posterior protrusions around this hardware (which can sometimes occur) and it did not appearto impact swallow function during this assessment. Pt educated on results of assessment directly following including video review with explanation of oropharyngeal anatomy/physiology, her current functional swallow and recommendations to follow up withGI provider. Total Session Time [employer] Eval: VideoFluoroscopic Swallow function Minutes (62011) 16 Total Evaluation Time 16 documented in this encounter Plan of Treatment Scheduled Referrals Name Type Priority Associated Diagnoses Order S chedule Speech Therapy Referral Referral Routine Oropharyngeal dys phagia Ordered: 11/23/2021 documented as of this encounter Visit Diagnoses Not on filedocumented in this encounter Care Teams Orthotics Technician Relationship Specialty Start Date End Date Clinic, [facility] PCP - General 05/09/[address] [place] [id number] documented as of this encounter
--- OUTSIDE RECORDS SUMMARY | 2022-04-23 15:32 | XMS_ITS | Encounter Summary ---
:1970 Author Organization [place] Address [address] [facility] [place] [address] Care Team Providers Name Role Phone Clinic, [facility] Primary Care Provide r Reason for Visit Reason Comments Shoulder Pain Encounter Details Date Type Department Care Team Description 05/09/2018 [facility] of [facility]; [facility] Emergency Dep t [address] [facility] Biceps tendonitis, left; [address] [place], [place] Bursitis [place] [id number] [phone] Social History Tobacco Use Types Packs/Day Years Used Date Never Smoker Alcohol Use Standard Drinks/Week Comments Yes 0 (1 standard drink = 0.6 oz pure alcoho l) Sex Assigned at Date Recorded Not on file documented as of this encounter Last Filed Vital Signs Vital Sign Reading Time Taken Comments Blood Pressure 111/69 05/09/2018 3:30 AM CDT Pulse 76 05/09/2018 5:18 AM CDT Temperature 36.6 ??C (97.9 ??F) 05/09/2018 12:20 AM CDT Respiratory Rate 16 05/09/2018 5:18 AM CDT Oxygen Saturation 99% 05/09/2018 5:18 AM CDT Inhaled Oxygen Concentration - - Weight - - Height - - Body Mass Index - - documented in this encounter Discharge Instructions Discharge InstructionsNanci De La Vega MD - 05/09/2018 4:36 AM CDT Images from the original note were not included. Understanding Biceps Tendonitis A tendon is a strong band of tissue that connects muscle to bone. The biceps muscle is in the front of the upper arm. It helps with movements such as bending the elbow or raising the arm. The upper endof the biceps muscle is called the proximal end. It has two tendons called the long head and the short head. These tendons attach the muscle to the bones in the shoulder. Biceps tendonitis occurs when either of these tendons is irritated or red and swollen (inflamed). Most cases involve the long head. Causes of biceps tendonitis Causes can include: ?? Wear and tear of the tendon from aging or normal use over time ?? Overuse of the tendon from sports or work activities, especially those that involve repeated overhead movements ?? Injury to the tendon from a fall or other accident ?? Other problems in the shoulder, such as shoulder impingement or a rotator cuff tear Symptoms of biceps tendonitis Common symptoms include: ?? Pain in the front of the shoulder that may also travel down the arm. The pain may be worse with activity and at night. ?? Swelling in the shoulder ?? Clicking or catching sensation when using the arm and shoulder ?? Trouble moving the arm and shoulder Treating biceps tendonitis Treatment for biceps tendonitis may include: ?? Resting the arm and shoulder. This involves limiting certain movements, such as reaching above the head or raising the arm. These can slow healing and make symptoms worse. You may also need to limitcertain sports and types of work for a time. ?? Cold therapy. This involves using items such as ice packs to help relieve symptoms. Cold can helpreduce pain and swelling. ?? Medicines. These help relieve pain and swelling. NSAIDs (nonsteroidal anti- inflammatory drugs) are the most common medicines used. Medicines may be prescribed or bought hyht-vbh-[id number]. They may begiven as pills. Or they may be applied to the skin in the form of a gel, cream, or patch. ?? Injections of medicine into the injured area. These help relieve pain and swelling for a time. ?? Physical therapy and exercises. ??These help improve strength and range of motion in the arm and shoulder. Possible complications ?? If the tendon isn???t given time to heal, symptoms may worsen. Also, the tendon may tear (rupture). ?? If the tendon ruptures or doesn???t get better with treatment, your healthcare provider may recommend surgery. This most often involves repairing and reattaching the tendon. ?? When to call your healthcare provider Call your healthcare provider right away if you have any of these: ?? Fever of 100.4??F (38??C) or higher, or as directed ?? Symptoms that don???t get better with treatment, or get worse ?? Weakness or instability in the arm or shoulder ?? Sudden sharp pain, bruising, swelling, popping or snapping sensation, or bulge in the upper arm or shoulder ?? New symptoms Date Last Reviewed: 10/12/2015 ?? [phone] [employer]. [address] [place] [address], [place] 1969767. All rights reserved. This information is not intended as a substitute for professional medical care. Always follow your healthcare professional's instructions. Bursitis You have bursitis. This is an inflammation of the bursa. These are small, fluid- filled sacs that surround the larger joints of the body. The bursa help the muscles and tendons move smoothly over the joints. Bursitis often happens in the shoulder. But it can also affect the elbows, hips, pelvis, knees, toes, and heels. Bursitis can be caused by injury, overuse of the joint, or infection of the bursa. Symptoms include pain and tenderness over a joint. Symptoms get worse with movement. Bursitis is treated with an anti-inflammatory medicine and by resting the joint. More severe cases require injection of medicine directly into the bursa. Home care ?? Rest the painful joint and protect it from movement. This will allow the inflammation to heal faster. ?? Apply an ice pack over the injured area for??no more than 15 to??20 minutes. Do this every??3 to 6??hours??for the first??24 to 48 hours. Keep using ice packs 3 to 4 times a day until the pain and swelling improves.? To make an ice pack, put ice cubes in a sealed plastic??zip-lock??bag. Wrap the bag in a??clean, thin??towel or cloth. Never put ice or an ice pack directly on the skin. As the ice melts, be carefulto avoid getting any wrap or splint wet. ?? You may take??czuz-zsh-dvcdzwe pain medicine to treat pain and inflammation, unless another medicine was prescribed.??Anti-inflammatory pain medicines may be more effective. Talk with your provider beforeusing these medicines if you have chronic liver or kidney disease, or ever had a stomach ulcer or GI (gastrointestinal) bleeding. ?? As your symptoms improve, slowly begin to move the joint. Do not overuse the joint. This may cause the symptoms to flare up again. When to seek medical advice Call your healthcare provider right away if any of these occur: ?? Redness over the painful area ?? Increasing pain or swelling at the joint ?? Fever of 100.4??F (38??C) or above lasting for 24 to 48 hours Date Last Reviewed: 06/24/2015 ?? [id number] [employer]. [address] [place] [address], [place] [address]. All rights reserved. This information is not intended as a substitute for professional medical care. Always follow your healthcare professional's instructions. documented in this encounter Medications at Time of Discharge [...] or irritation documented as of this encounter ED Notes Roel High RN - 05/09/2018 3:45 AM CDT Pt continues to report no pain, still appearing comfortable. Roel High RN - 05/09/2018 2:45 AM CDT Pt reports improvement in pain and that it is easier to move her arm, pt unable to give a severity number, but says she is feeling much improved, sleeping upon entry to room. Sujit Gross RN - 05/09/2018 12:18 AM CDT Left shoulder pain getting worst. History of bilateral shoulder pain, surgery on right shoulder. HasMRI schedule on . ABCs intact, gcs 15, AA&Ox3. Nanci De La Vega MD - 05/09/2018 12:08 AM CDT History Chief Complaint: Shoulder Pain HPI Josie Booker is a 47 year old female with a history of chronic back and neck pain and calcific tendinitis in both shoulders who presents with her for evaluation of left shoulder pain. Per the patient's report, she had right shoulder surgery in October to remove calcium deposits brought on by her calcific tendinitis. Her recovery went well but lately her left shoulder has been having increased pain. She notes that her left arm feels like there is a rubber band around it, decreasing circulation, and feels cold. Additionally, the patient reports that she does not have full range of motion in her left arm and her left shoulder is tender to the touch. This evening the patient went to shut a door with her left arm when pain originating in her left shoulder was so painful that it prompted her to present to the emergency department. The pain wraps around her upper arm to the front and radiates down. She had an X-ray a while ago that confirmed tendinitis in both of her shoulders but the pain in her left shoulder has accelerated faster than she remembers her right shoulder pain progressing. The patient mentions that she has an MRI scheduled for next and an appointment with her orthopedic surgeon at [facility] on June 02. All other symptoms are negative. Allergies: No known drug allergies Medications: Cyclobenzaprine Lyrica Percocet Past Medical History: The patient does not have any past pertinent medical history. Past Surgical History: Back surgery Breast surgery ENT surgery Orthopedic surgery Family History: History reviewed. No pertinent family history. Social History: Smoking status: Never smoker Alcohol use: Yes Marital Status: [2] Review of Systems Constitutional: Negative for fever. Musculoskeletal: Positive for arthralgias and myalgias. Negative for joint swelling. Skin: Negative for rash and wound. Neurological: Positive for weakness. All other systems reviewed and are negative. Physical Exam Patient Vitals for the past 24 hrs: BP Temp Temp src Pulse Heart Rate Resp SpO2 05/09/18 0358 - - - - - - 95 % 05/09/18 0357 - - - 95 95 - 95 % 05/09/18 0356 - - - - - - 95 % 05/09/18 0330 111/69 - - - - - 95 % 05/09/18 0315 121/71 - - - - - 96 % 05/09/18 0300 122/67 - - - - - 96 % 05/09/18 0245 123/70 - - - - - 93 % 05/09/18 0236 127/76 - - - - - 97 % 05/09/18 0215 - - - - - - 99 % 05/09/18 0200 - - - - - - 99 % 05/09/18 0145 - - - - - - 97 % 05/09/18 0020 (!) 140/98 97.9 ??F (36.6 ??C) Oral 103 103 24 100 % Physical Exam General: Patient is alert and interactive when I enter the room, in distress secondary to pain Head: The scalp, face, and head appear normal Eyes: Conjunctivae are normal ENT: The nose is normal Pinnae are normal External acoustic canals are normal Neck: Trachea midline CV: Pulses are normal Resp: No respiratory distress Abdomen: Soft, non-tender, non-distended Musc: Normal muscular tone Maximal and significant tenderness to insertion of proximal biceps tendon, difficulty with ROM secondary to pain and thus difficult to test strength, 2+ radial pulse, arm well perfused, no shoulder effusion palpated with no erythema or warmth Skin: No rash or lesions noted Neuro: Speech is normal and fluent. Face is symmetric. Moving all extremities well. Psych: Awake. Alert. Normal affect. Appropriate interactions. Emergency Department Course Imaging: Radiographic findings were communicated with the patient who voiced understanding of the findings. XR shoulder left G/E 3 views IMPRESSION: No acute fracture or dislocation. As read by Radiology Laboratory: CBC: WNL (WBC 7.0, HGB 12.1, PLT 212) BMP: Glucose 104 (H), Calcium 8.1 (L), WNL (Creatinine 0.97) CRP inflammation: <2.9 Erythrocyte sedimentation rate: 6 Interventions: 0206 Tylenol 300-30 MG 1 tablet PO 0234 Toradol 15 mg IM Emergency Department Course: Past medical records, nursing notes, and vitals reviewed. 0106: I performed an exam of the patient and obtained history, as documented above. IV inserted and blood drawn. The patient was sent for a shoulder XR while in the emergency department, findings above. 0203: I rechecked the patient. Explained findings to the patient. 0306: I rechecked the patient. 0436: I rechecked the patient. Findings and plan explained to the Patient. Patient discharged home with instructions regarding supportive care, medications, and reasons to return. The importance of close follow-up was reviewed. Impression & Plan Medical Decision Making: Josie Booker is a 47 year old female with a history of osteoarthritis who presents with left shoulder pain. Patient was quite uncomfortable when I arrived to the room. She has maximal tenderness at her biceps tendon which is concerning for bicep tendinitis. She has tenderness in her left triceps and u pper arm as well, she is warm and well perfused distally. It is difficult to assess strength secondary to her pain. It is very mildly warm to touch with no erythema and no obvious effusion palpated. When I did do a bedside ultrasound there was no effusion within the joint, however there was fluid around her bicep tendon and the humerus, possibly the bursa thus it could be bicep tendinitis versus shoulder bursitis. She was persistently tachycardic even though after pain medication she was greatly improved and almost resolved. Given this, we did do blood work and IV fluids. Her heart rate came down with this. She has no signs of infection on her blood work and with no fever and rapid improvement of her pain I think patient can be discharged. I will give her a course of pain medication and have her follow up with orthopedics and then get an MRI scheduled. Return precautions discussed. Patient discharged. Diagnosis: ICD-10-CM 1. Acute pain of left shoulder M25.512 CBC with platelets differential Basic metabolic panel CRP inflammation Erythrocyte sedimentation rate auto 2. Biceps tendonitis, left M75.22 3. Bursitis of shoulder, left M75.52 Disposition: discharged to home Discharge Medications: New Prescriptions ACETAMINOPHEN-CODEINE (TYLENOL WITH CODEINE #3) 300-30 MG PER TABLET Take 1-2 tablets by mouth every 6 hours as needed for pain Heron Mateo 05/09/2018 [facility] EMERGENCY DEPARTMENT Scribe Disclosure: I, Heron Mateo, am serving as a scribe at 1:06 AM on 05/09/2018 to document services personally performed by Nanci De La Vega MD based on my observations and the provider's statements to me. Nanci De La Vega MD 05/09/182309 Nanci De La Vega MD 05/09/182311 documented in this encounter Plan of Treatment Not on filedocumented as of this encounter Procedures Procedure Name Priority Date/Time Associated Comments Diagnosis CBC WITH PLATELETS & STAT 05/09/2018 3:49 AM Acute pain of left Results for this DIFFERENTIAL CDT shoulder procedure are i n the results section. ERYTHROCYTE STAT 05/09/2018 3:49 AM Acute pain of left Res ults for this SEDIMENTATION RATE CDT shoulder procedure are in AUTO the results section. CRP INFLAMMATION STAT 05/09/2018 3:49 AM Acute pain of left Results for this CDT shoulder procedure are i n the results section. BASIC METABOLIC PANEL STAT 05/09/2018 3:49 AM Acute pain of left Results for this CDT shoulder procedure are i n the results section. XR SHOULDER LEFT G/E 3 STAT 05/09/2018 1:34 AM Results for this VIEWS CDT procedure are i n the results section. documented in this encounter Results Erythrocyte sedimentation rate auto (05/09/2018 3:49 AM CDT) P athologist Signature Sed Rate 6 0 - 20 mm/h 05/09/2018 [facility] 4:33 AM CDT HOSPITAL Specimen Anatomical Collection Method Collection Time Receive d Time (Source) Location / / Volume Laterality Blood specimen 05/09/2018 3:49 AM 018 4:11 (specimen) CDT AM CDT Nanci De La Vega MD LAB - BLOOD ORDERABLES Performing Organization Address City/State/ZIP Code Phon e Number [facility] [address] [place], [place] [address] [facility] [address] [place], [place] [address] [phone] CRP inflammation (05/09/2018 3:49 AM CDT) athologist Signature CRP Inflammation <2.9 0.0 - 8.0 05/09/2018 [place] mg/L 4:23 AM [facility] Specimen Anatomical Collection Method Collection Time Receive d Time (Source) Location / / Volume Laterality Blood specimen 05/09/2018 3:49 AM 018 4:11 (specimen) CDT AM CDT Nanci De La Vega MD LAB - BLOOD ORDERABLES Performing Organization Address City/State/ZIP Code Phon e Number [place] [address] [place] [place], [place] [address] [place] [address] [address] [place], [place] [address] [phone] (ABNORMAL) Basic metabolic panel (05/09/2018 3:49 AM CDT) athologist [facility] Sodium 139 133 - 144 05/09/2018 [place] mmol/L 4:23 AM [facility] Potassium 3.8 3.4 - 5.3 05/09/2018 [place] mmol/L 4:23 AM [facility] Chloride 107 94 - 109 05/09/2018 [facility] mmol/L 4:23 AM [facility] Carbon Dioxide 27 20 - 32 05/09/2018 [place] mmol/L 4:23 AM [facility] Anion Gap 5 3 - 14 05/09/2018 [facility] mmol/L 4:23 AM [facility] Glucose 104 (H) 70 - 99 05/09/2018 [place] mg/dL 4:23 AM [facility] Urea Nitrogen 19 7 - 30 05/09/2018 [place] mg/dL 4:23 AM [facility] Creatinine 0.97 0.52 - 05/09/2018 [facility] 1.04 mg/dL 4:23 AM [facility] GFR Estimate 61 >60 05/09/2018 [place] mL/min/1.7 4:[address] Comment: Non GFR Calc GFR Estimate If 74 >60 mL/min/1.7m2 05/09/2018 4:23 A M [facility] Comment: GFR Calc Calcium 8.1 (L) 8.5 - 10.1 mg/dL 05/09/2018 4:23 AM [facility] Specimen Anatomical Collection Method Collection Time Receive d Time (Source) Location / / Volume Laterality Blood specimen 05/09/2018 3:49 AM 018 4:11 (specimen) CDT AM CDT Nanci De La Vega MD LAB - BLOOD ORDERABLES Performing Organization Address City/State/ZIP Code Phon e Number [place] [address] [address] [place] [address] [facility] [address] [phone] CBC with platelets differential (05/09/2018 3:49 AM CDT) [facility] Method Time Signature WBC 7.0 4.0 - 05/09/2018 [facility] 11.0 4:13 AM [facility] 10e9/L [facility] RBC Count 4.17 3.8 - 5.2 05/09/2018 [facility] 10e12/L 4:13 AM [facility] Hemoglobin 12.1 11.7 - 05/09/2018 [facility] 15.7 g/dL 4:13 AM [facility] Hematocrit 35.4 35.0 - 05/09/2018 [facility] 47.0 % 4:13 AM [facility] MCV 85 78 - 100 05/09/2018 [facility] fl 4:13 AM [facility] MCH 29.0 26.5 - 05/09/2018 [facility] 33.0 pg 4:13 AM [facility] MCHC 34.2 31.5 - 05/09/2018 [facility] 36.5 g/dL 4:13 AM [facility] RDW 12.5 10.0 - 05/09/2018 [facility] 15.0 % 4:13 AM [facility] Platelet Count 212 150 - 450 05/09/2018 [facility] 10e9/L 4:13 AM [facility] Diff Method Automated 05/09/2018 [facility] Method 4:13 AM [facility] % Neutrophils 74.6 % 05/09/2018 [facility] 4:13 AM [facility] % Lymphocytes 13.2 % 05/09/2018 [facility] 4:13 AM [facility] % Monocytes 10.7 % 05/09/2018 [facility] 4:13 AM [facility] % Eosinophils 0.6 % 05/09/2018 [facility] 4:13 AM [facility] % Basophils 0.6 % 05/09/2018 [facility] 4:13 AM [facility] % Immature 0.3 % 05/09/2018 [facility] Granulocytes 4:13 AM [facility] Nucleated RBCs 0 0 /100 05/09/2018 [facility] 4:13 AM [facility] Absolute 5.2 1.6 - 8.3 05/09/2018 [facility] Neutrophil 10e9/L 4:13 AM [facility] Absolute 0.9 0.8 - 5.3 05/09/2018 [facility] Lymphocytes 10e9/L 4:13 AM [facility] Absolute 0.8 0.0 - 1.3 05/09/2018 [facility] Monocytes 10e9/L 4:13 AM [facility] Absolute 0.0 0.0 - 0.7 05/09/2018 [facility] Eosinophils 10e9/L 4:13 AM [facility] Absolute 0.0 0.0 - 0.2 05/09/2018 [facility] Basophils 10e9/L 4:13 AM [facility] Abs Immature 0.0 0 - 0.4 05/09/2018 [facility] Granulocytes 10e9/L 4:13 AM [facility] Absolute 0.0 05/09/2018 [facility] Nucleated RBC 4:13 AM [facility] Specimen Anatomical Collection Method Collection Time Receive d Time (Source) Location / / Volume Laterality Blood specimen 05/09/2018 3:49 AM 018 4:11 (specimen) CDT AM T Nanci De La Vega MD LAB - BLOOD ORDERABLES Performing Organization Address City/State/ZIP Code Phon e Number M [facility] [address] [place] [address] [facility] [address] [address] [phone] XR Shoulder Left G/E 3 Views (05/09/2018 1:34 AM CDT) Anatomical Region Laterality Modality Shoulder, Left Shoulder Left Digital Radiogra phy Specimen (Source) Anatomical Location Collection Method / Collectio n Time Received Time / Laterality Volume Impressions 05/09/2018 3:04 AM CDT IMPRESSION: No acute fracture or dislocation. SRIRAM CRAIG MD Narrative 05/09/2018 3:04 AM CDT XR SHOULDER LT G/E 3 VW ??05/09/2018 1:34 AM INDICATION: Pain, no trauma. COMPARISON: None. Procedure Note Sriram Craig MD - 05/09/2018F ormatting of this note might be different from the original. XR SHOULDER LT G/E 3 VW 05/09/2018 1:34 A M INDICATION: Pain, no trauma. COMPARISON: None. IMPRESSION: No acute fracture or disloca tion. SRIRAM CRAIG MD Nanci De La Vega MD IMG DIAGNOSTIC IMAGING ORDER PORSHA documented in this encounter Visit Diagnoses Diagnosis Acute pain of left shoulder Biceps tendonitis, left Bursitis of shoulder, left Disorders of bursae and tendons in shoul daly region, unspecified documented in this encounter Administered Medications Inactive Administered Medications - up to 3 most recent administrations Medication Order MAR Action Action Date Dose Rate Site acetaminophen-codeine (TYLENOL Given 05/09/2018 2:06 AM CDT 1 ta blet #3) 300-30 MG per tablet 1 tablet 1 tablet, Oral, ONCE, On 05/09/18 at 0201, For 1 dose, Maximum acetaminophen dose from all sources= 75 mg/kg/day not to exceed 4 grams ketorolac (TORADOL) injection 15 mg Given 05/09/2018 2:34 AM CDT 15 mg 15 mg, Intramuscular, ONCE, On 05/09/18 at 0229, For 1 dose, Can cause pain on injection. Administer through a running maintenance fluid over 1 minute followed by a flush. If patient complains of pain on injection, may dilute 15-30 mg in 5 mL and push over 1 to 2 minutes. documented in this encounter Active and Recently Administered Medications Times are shown in CDT. Scheduled Medication Order 05/07/2018 05/08/2018 05/09/2018 acetaminophen-codeine (TYLENOL #3) 300-30 MG per tablet 1 tablet (COMPLETED) 0206 (Given - Provider: Terrell Haji RN) 1 tablet, Oral, ONCE, 05/09/18 at 020 1, For 1 dose, Maximum acetaminophen dose from all sources= 75 mg/kg/day not to exceed 4 grams ketorolac (TORADOL) injection 15 mg (COMPLETED) 0234 (Given - Provider: Terrell Haji RN) 15 mg, Intramuscular, ONCE, 05/09/18 at 0229, For 1 dose, Can cause pain on injection. Administer through a running maintenance fluid over 1 minute followed by a flush. If patient complains of pain o n injection, may dilute 15-30 mg in 5 mL and push over 1 to 2 mi nutes. documented in this encounter Care Teams Press Washer Relationship Specialty Start Date End Date Clinic, [facility] PCP - General 05/09/[address] [place] [id number] documented as of this encounter
--- OUTSIDE RECORDS SUMMARY | 2022-04-23 15:32 | XMS_ITS | Encounter Summary ---
:1970 Author Organization [facility] Address [address] [place] [address] Care Team Providers Name Role Phone Clinic, [facility] Primary Care Provider [phone] Reason for Visit Reason Comments Abdominal Pain Encounter Details Date Type Department Care Team Description 06/24/2014 Emergency [facility] Gene Reddy MD Acute epigastric pain (Primary Dx); [facility] Emergency Dep t EMERGENCY PHYSICIANS Atypical chest pain [address] [place], [place] [address] [id number] [place] [address] [place] [address] (Wo rk) Social History Tobacco Use Types Packs/Day Years Used Date Never Smoker Alcohol Use Standard Drinks/Week Comments Yes 0 (1 standard drink = 0.6 oz pure alcoho l) Sex Assigned at Date Recorded Not on file documented as of this encounter Last Filed Vital Signs Vital Sign Reading Time Taken Comments Blood Pressure 107/69 06/24/2014 10:15 PM TRUCK MANAGER Pulse 97 06/24/2014 7:51 PM TRUCK MANAGER Temperature 37.1 ??C (98.8 ??F) 06/24/2014 7:51 PM TRUCK MANAGER Respiratory Rate 18 06/24/2014 7:51 PM TRUCK MANAGER Oxygen Saturation 96% 06/24/2014 10:15 PM TRUCK MANAGER Inhaled Oxygen Concentration - - Weight 58.5 kg (129 lb) 06/24/2014 7:51 PM TRUCK MANAGER Height 152.4 cm (5') 06/24/2014 7:51 PM TRUCK MANAGER Body Mass Index 25.19 06/24/2014 7:51 PM TRUCK MANAGER documented in this encounter Discharge Instructions Discharge InstructionsShapin, Gene P, MD - 06/24/2014 10:06 PM CST Discharge Instructions Abdominal Pain Abdominal pain can be caused by many things. Your evaluation today does not show the exact cause foryour pain. Your doctor today has decided that it is unlikely your pain is due to a life threatening problem, or a problem requiring surgery or hospital admission. Sometimes those problems cannot be found right away, so it is very important that you follow up as directed. Sometimes only the changes which occur over time allow the cause of your pain to be found. Return to the Emergency Department for a recheck in 8-12 hours if your pain continues. If your pain gets worse, changes in location, or feels different, return to the Emergency Department right away. ADULTS: Return to the Emergency Department right away if: ??? You get an oral temperature above 102oF or as directed by your doctor. ??? You have blood in your stools (bright red or black, tarry stools). ??? You keep throwing up or can???t drink liquids. ??? You see blood when you throw up. ??? You can???t have a bowel movement or you can???t pass gas. ??? Your stomach gets bloated or bigger. ??? Your skin or the whites of your eyes look yellow. ??? You faint. ??? You have bloody, frequent or painful urination. ??? You have new symptoms or anything that worries you. CHILDREN: Return to the Emergency Department right away if your child has any of the above-listed symptoms or the following: ??? Pushes your hand away or screams/cries when his/her belly is touched. ??? You notice your child is very fussy or weak. ??? Your child is very tired and is too tired to eat or drink. ??? Your child is dehydrated. Signs of dehydration can be: o Your has had no wet diapers in 4-5 hours. o Your older child has not passed urine in 6-8 hours. o Your infant or child starts to have dry mouth and lips, or no saliva or tears. WOMEN: Return to the Emergency Department right away if you have any of the above-listed symptoms or the following: ??? You have bleeding, leaking fluid or passing tissue from the vagina. ??? You have worse pain or cramping, or pain in your shoulder or back. ??? You have vomiting that will not stop. ??? You have painful or bloody urination. ??? You have a temperature of 100oF or more. ??? Your baby is not moving as much as usual. ??? You faint. ??? You get a bad headache with or without eye problems and abdominal pain. ??? You have a convulsion or seizure. ??? You have unusual discharge from your vagina and abdominal pain. Abdominal pain is pretty common during . Your pain may or may not be related to your . You should follow-up closely with your OB doctor so they can evaluate you and your baby. Until you follow-up with your regular doctor, do the following: ??? Avoid sex and do not put anything in your vagina. ??? Drink clear fluids. ??? Only take medications approved by your doctor. MORE INFORMATION: Appendicitis: A possible cause of abdominal pain in any person who still has their appendix is acuteappendicitis. Appendicitis is often hard to diagnose. Testing does not always rule out early appendicitis or other causes of abdominal pain. Close follow-up with your doctor and re-evaluations may be needed to figure out the reason for your abdominal pain. Follow-up: It is very important that you make an appointment with your clinic and go to the appointment. If you do not follow-up with your primary doctor, it may result in missing an important development which could result in permanent injury or disability and/or lasting pain. If there is any problemkeeping your appointment, call your doctor or return to the Emergency Department. Medications: Take your medications as directed by your doctor today. Before using ylip-hop-suibmxd medications, ask your doctor and make sure to take the medications as directed. If you have any questions about medications, ask your doctor. Diet: Resume your normal diet as much as possible, but do not eat fried, fatty or spicy foods while you have pain. Do not drink alcohol or have caffeine. Do not smoke tobacco. Probiotics: If you have been given an antibiotic, you may want to also take a probiotic pill or eat yogurt with live cultures. Probiotics have good bacteria to help your intestines stay healthy. Studies have shown that probiotics help prevent diarrhea and other intestine problems (including C. diff infection) when you take antibiotics. You can buy these without a prescription in the pharmacy section of the store. If you were given a prescription for medicine here today, be sure to read all of the information (including the package insert) that comes with your prescription. This will include important information about the medicine, its side effects, and any warnings that you need to know about. The pharmacist who fills the prescription can provide more information and answer questions you may have about the medicine. If you have questions or concerns that the pharmacist cannot address, please call or return to the Emergency Department. Opioid Medication Information Pain medications are among the most commonly prescribed medicines, so we are including this information for all our patients. If you did not receive pain medication or get a prescription for pain medicine, you can ignore it. You may have been given a prescription for an opioid (narcotic) pain medicine and/or have received apain medicine while here in the Emergency Department. These medicines can make you drowsy or impaired. You must not drive, operate dangerous equipment, or engage in any other dangerous activities whiletaking these medications. If you drive while taking these medications, you could be arrested for DUI, or driving under the influence. Do not drink any alcohol while you are taking these medications. Opioid pain medications can cause addiction. If you have a history of chemical dependency of any type, you are at a higher risk of becoming addicted to pain medications. Only take these prescribed medications to treat your pain when all other options have been tried. Take it for as short a time and asfew doses as possible. Store your pain pills in a secure place, as they are frequently stolen and provide a dangerous opportunity for children or visitors in your house to start abusing these powerful medications. We will not replace any lost or stolen medicine. As soon as your pain is better, you should flush all your remaining medication. Many prescription pain medications contain Tylenol?? (acetaminophen), including Vicodin??, Tylenol #3??, Elkin??, Lortab??, and Percocet??. You should not take any extra pills of Tylenol?? if you are using these prescription medications or you can get very sick. Do not ever take more than 3000 mg of acetaminophen in any 24 hour period. All opioids tend to cause constipation. Drink plenty of water and eat foods that have a lot of fiber, such as fruits, vegetables, prune juice, apple juice and high fiber cereal. Take a laxative if you don???t move your bowels at least every other day. Miralax??, Milk of Magnesia, Colace??, or Senna?? can be used to keep you regular. Remember that you can always come back to the Emergency Department if you are not able to see your regular doctor in the amount of time listed above, if you get any new symptoms, or if there is anything that worries you. Discharge Instructions Chest Pain You have been seen today for chest pain or discomfort. At this time, your doctor has found no signs that your chest pain is due to a serious or life-threatening condition, (or you have declined more testing and/or admission to the hospital). However, sometimes there is a serious problem that does not show up right away. Your evaluation today may not be complete and you may need further testing and evaluation. You need to follow-up with your regular doctor within 3 days. Return to the Emergency Department if: ??? Your chest pain changes, gets worse, starts to happen more often, or comes with less activity. ??? You are short of breath. ??? You get very weak or tired. ??? You pass out or faint. ??? You have any new symptoms, like fever, cough, numb legs, or you cough up blood. ??? You have anything else that worries you. Until you follow-up with your regular doctor please do the following: ??? Take one aspirin daily unless you have an allergy or are told not to by your doctor. ??? If a stress test appointment has been made, go to the appointment. ??? If you have questions, contact your regular doctor. If your doctor today has told you to follow-up with your regular doctor, it is very important that you make an appointment with your clinic and go to the appointment. If you do not follow-up with your primary doctor, it may result in missing an important development which could result in permanent injury or disability and/or lasting pain. If there is any problem keeping your appointment, call your doctor or return to the Emergency Department. If you were given a prescription for medicine here today, be sure to read all of the information (including the package insert) that comes with your prescription. This will include important information about the medicine, its side effects, and any warnings that you need to know about. The pharmacist who fills the prescription can provide more information and answer questions you may have about the medicine. If you have questions or concerns that the pharmacist cannot address, please call or return to the Emergency Department. Opioid Medication Information Pain medications are among the most commonly prescribed medicines, so we are including this information for all our patients. If you did not receive pain medication or get a prescription for pain medicine, you can ignore it. You may have been given a prescription for an opioid (narcotic) pain medicine and/or have received apain medicine while here in the Emergency Department. These medicines can make you drowsy or impaired. You must not drive, operate dangerous equipment, or engage in any other dangerous activities whiletaking these medications. If you drive while taking these medications, you could be arrested for DUI, or driving under the influence. Do not drink any alcohol while you are taking these medications. Opioid pain medications can cause addiction. If you have a history of chemical dependency of any type, you are at a higher risk of becoming addicted to pain medications. Only take these prescribed medications to treat your pain when all other options have been tried. Take it for as short a time and asfew doses as possible. Store your pain pills in a secure place, as they are frequently stolen and provide a dangerous opportunity for children or visitors in your house to start abusing these powerful medications. We will not replace any lost or stolen medicine. As soon as your pain is better, you should flush all your remaining medication. Many prescription pain medications contain Tylenol?? (acetaminophen), including Vicodin??, Tylenol #3??, Elkin??, Lortab??, and Percocet??. You should not take any extra pills of Tylenol?? if you are using these prescription medications or you can get very sick. Do not ever take more than 3000 mg of acetaminophen in any 24 hour period. All opioids tend to cause constipation. Drink plenty of water and eat foods that have a lot of fiber, such as fruits, vegetables, prune juice, apple juice and high fiber cereal. Take a laxative if you don???t move your bowels at least every other day. Miralax??, Milk of Magnesia, Colace??, or Senna?? can be used to keep you regular. Remember that you can always come back to the Emergency Department if you are not able to see your regular doctor in the amount of time listed above, if you get any new symptoms, or if there is anything that worries you. K MANAGER documented in this encounter Medications at Time of Discharge Medication Sig Dispensed Refills Start Date End Date oxyCODONE-acetaminophen Take 1-2 tablets by 15 tablet 0 (PERCOCET) 5-325 MG per mouth every 4 hours tablet as needed for moderate to severe pain Vitamins A & D (VITAMIN A Apply topically as 0 & D) ointment needed for dry skin or irritation ondansetron (ZOFRAN ODT) Take 1 tablet (4 mg) 10 tablet 0 1 08/24/2013 06/27/2014 4 MG disintegrating by mouth every 8 tablet hours as needed for nausea ranitidine (ZANTAC) 150 Take 1 tablet (150 30 tablet 0 06/0507/09/2014 MG tablet mg) by mouth 2 times daily for 15 days documented as of this encounter ED Notes Jennifer Young RN - 06/24/2014 8:35 PM CST Pt refused dilaudid. K MANAGER Gene Reddy MD - 06/24/2014 7:56 PM CST History Chief Complaint: Abdominal Pain HPI Josie Booker is an otherwise healthy 44 year old female who presents with abdominal pain. At approximately 7 AM today the patient states she developed dull, achy diffuse abdominal pain that was intermittent throughout the day and resolved after lunch. At approximately 3:30 PM the patient states shehad the onset of severe RUQ pain that made it difficult to breathe and she doubled over. [facility] [place], had a GI cocktail with no relief, had a bedside US performed, and was diagnosed with a gall stone. She was advised to present to the ED for possible surgical intervention. Currently here in the ED the patient complains of RUQ abdominal pain that radiates tothe mid sternum. The patient states she has never had this pain before. She denies nausea, vomit, orfever. The patient also reports feeling fatigued as of late. She voices no other complaints at this time. Allergies: NKDA Medications: The patient is currently on no regular medications. Past Medical History: History reviewed. No pertinent past medical history. Past Surgical History: Breast surgery Back surgery ENT surgery Orthopedic surgery Family History: The patient denies a pertinent family history. Social History: Marital status: Tobacco use: negative Alcohol use: negative Patient presents to the ED with . Review of Systems Constitutional: Positive for fatigue. Negative for fever. Cardiovascular: Positive for chest pain. Gastrointestinal: Positive for abdominal pain. Negative for nausea and vomiting. All other systems reviewed and are negative. Physical Exam First Vitals: BP: 134/81 mmHg Pulse: 97 Temp: 98.8 ??F (37.1 ??C) Resp: 18 Height: 152.4 cm (5') Weight: 58.514 kg (129 lb) SpO2: 98 % Physical Exam Constitutional: Oriented to person, place, and time. Appears in minor distress secondary to pain. HENT: Head: Atraumatic Mouth/Throat: Oropharynx is clear and moist. Eyes: EOM are normal. Pupils are equal, round, and reactive to light. Neck: Neck supple. Cardiovascular: Normal rate, regular rhythm and normal heart sounds. Exam reveals no gallop and no friction rub. No murmur heard. Pulmonary/Chest: Effort normal and breath sounds normal. No respiratory distress. No wheezes. No rales. Abdominal: Soft. No distension.RUQ tenderness with positive Valenzuela's sign. No rebound and no guarding. Musculoskeletal: Normal range of motion. Neurological: Alert and oriented to person, place, and time. Moves all 4 extremities spontaneously Skin: No rash noted. No pallor. Emergency Department Course ECG: @ 2019 Rate 88 bpm. AK interval 150 ms. QRS duration 66 ms. QT/QTc 346/418 ms. P-R-T axes 65. Notes: Normal sinus rhythm with sinus arrhythmia. Septal infarct, age undetermined. Abnormal ECG. Time read 2019. Imaging: US Abdomen Limited: IMPRESSION: Negative, no gallstones identified. REJI CASILLAS MD Radiographic findings were communicated with the patient and family who voiced understanding of the findings. Laboratory: CBC: WBC 5.7 (WNL) HGB 14.9 (WNL) PLT 212 (WNL) Rest WNL CMP: Cr 1.02 (WNL) GFR 58 (low) Alkphos 22 (low) Rest WNL Lipase: 239 (WNL) HCG: negative Interventions: Zantac, 50 mg, IV Zofran, 4 mg, IV NS, 1 L, IV ED Course: The patient was roomed. The patient was placed on pulse oximetry. The patient's medical charts were reviewed and I examined the patient. I personally reviewed the laboratory results with the Patient and spouse and answered all related questions prior to discharge. Findings and plan explained to the Patient and spouse. Patient discharged home with instructions regarding supportive care, medications, and reasons to return. The importance of close follow-up was reviewed. The patient was prescribed Percocet, Zofran, and Zantac. Impression & Plan Medical Decision Making: This patient is a 44 year old female who presents to the ED complaining of RUQ abdominal pain radiating to her chest. She was referred here from her primary doctor???s office with concern for possible biliary colic. The differential includes biliary colic, pneumothorax, GERD, ACS, gastritis, and othercauses. She had a work up as seen above. Her ECG shows no ischemic changes. Her troponin was negative. The patient has a PERC score of zero and I think PE is unlikely. US is negative for obvious occultcystitis. Lab work is otherwise reassuring. Upon reevaluation the patient???s pain has greatly improved. There still may be biliary colic. If symptoms continue she may require a HIDA scan which I do bel ieve can be appropriately done as an outpatient. She will be discharged to home with a prescription for Zantac, Zofran, and Percocet. The patient was advised to follow up with her PCP. She should return for worsening abdominal pain, fever, vomiting, shortness of breath, or chest pain. Diagnosis: 1. Acute epigastric pain (789.06, 338.19) 2. Atypical chest pain (786.59) Disposition: The patient was discharged home and advised to follow up with PCP. IMaria T, am serving as a scribe on 06/24/2014 at 7:56 PM to personally document servicesperformed by Dr. Shapin based on my observations and the provider's statements to me. Gene Reddy MD 06/24/14 2244 K MANAGER Aimee Taylor, RN - 06/24/2014 7:54 PM CST Sent over from clinic, epigastric pain started this am subsided and then again worse at home 05/13 Did have U/S Tonight at Dx with gallstone Was told to come over to er and have possible surgery ABC intact K MANAGER documented in this encounter Plan of Treatment Not on filedocumented as of this encounter Procedures Procedure Name Priority Date/Time Associated Comments Diagnosis XR CHEST 2 VIEWS STAT 06/24/2014 10:02 Results for this PM TRUCK MANAGER procedure are i n the results section. TROPONIN POCT Routine 06/24/2014 9:38 PM Results for this TRUCK MANAGER procedure are i n the results section. US ABDOMEN LIMITED STAT 06/24/2014 9:14 PM Res ults for this TRUCK MANAGER procedure are i n the results section. CBC WITH PLATELETS & STAT 06/24/2014 8:30 PM R esults for this DIFFERENTIAL TRUCK MANAGER procedure are i n the results section. LIPASE STAT 06/24/2014 8:30 PM Results f or this TRUCK MANAGER procedure are i n the results section. HCG QUALITATIVE STAT 06/24/2014 8:30 PM Result s for this TRUCK MANAGER procedure are i n the results section. COMPREHENSIVE STAT 06/24/2014 8:30 PM Results for this METABOLIC PANEL TRUCK MANAGER procedure ar e in the results section. EKG 12-LEAD, TRACING STAT 06/24/2014 8:19 PM R esults for this ONLY TRUCK MANAGER procedure are i n the results section. documented in this encounter Results Chest XR, PA & LAT (06/24/2014 10:02 PM TRUCK MANAGER) Anatomical Region Laterality Modality Chest Computed Radiography Specimen (Source) Anatomical Location Collection Method / Collectio n Time Received Time / Laterality Volume Impressions 06/24/2014 10:04 PM TRUCK MANAGER IMPRESSION: No active infiltrate. ? REJI CASILLAS MD Narrative 06/24/2014 10:04 PM TRUCK MANAGER XR CHEST 2 VW ?? 06/24/2014 10:02 PM HISTORY: chest pain, COMPARISON: None. FINDINGS: The heart is negative. ??The l ungs are clear. The pulmonary vasculature is normal. ??The bones and s oft tissues are unremarkable. ? Procedure Note Thien Casillas MD - 06/24/2014For matting of this note might be different from the original. XR CHEST 2 VW 06/24/2014 10:02 PM HISTORY: chest pain, COMPARISON: None. FINDINGS: The heart is negative. The jeanne gs are clear. The pulmonary vasculature is normal. The bones and sof t tissues are unremarkable. IMPRESSION IMPRESSION: No active infiltrate. REJI CASILLAS MD Gene Reddy MD IMG DIAGNOSTIC IMAGING ORDER PORSHA Troponin POCT (06/24/2014 9:38 PM TRUCK MANAGER) athologist Signature Troponin I 0.00 0.00 - 0.10 POINT OF CARE ug/L TEST, HANDHELD METER Specimen Anatomical Collection Method Collection Time Receive d Time (Source) Location / / Volume Laterality 06/24/2014 9:38 PM 4 TRUCK MANAGER 10:00 PM TRUCK MANAGER Gene Reddy MD LAB - ENTER/EDIT POCT Performing Organization Address City/State/ZIP Code Phon e Number FV POINT OF CARE TEST, HANDHELD METER POINT OF CARE TEST, HANDHELD METER US Abdomen Limited (06/24/2014 9:14 PM TRUCK MANAGER) Anatomical Region Laterality Modality Abdomen/Pelvis Ultrasound Specimen (Source) Anatomical Location Collection Method / Collectio n Time Received Time / Laterality Volume Impressions 06/24/2014 9:25 PM TRUCK MANAGER IMPRESSION: ??Negative, no gallstones identified. REJI CASILLAS MD Narrative 06/24/2014 9:25 PM TRUCK MANAGER US ABDOMEN LIMITED ??06/24/2014 9:14 PM HISTORY: ??RUQ pain, COMPARISON: None. FINDINGS: Gallbladder: Normal with no cholelithias is, no wall thickening, and no focal tenderness. Bile ducts: ??CHD is normal diameter. ?? No intrahepatic biliary dilatation. Liver: ??Normal. Pancreas: ??Normal. Right kidney: ??Normal. ? Procedure Note Thien Casillas MD - 06/24/2014For matting of this note might be different from the original. US ABDOMEN LIMITED 06/24/2014 9:14 PM HISTORY: RUQ pain, COMPARISON: None. FINDINGS: Gallbladder: Normal with no cholelithias is, no wall thickening, and no focal tenderness. Bile ducts: CHD is normal diameter. No i ntrahepatic biliary dilatation. Liver: Normal. Pancreas: Normal. Right kidney: Normal. IMPRESSION IMPRESSION: Negative, no gallstones iden tified. REJI CASILLAS MD Gene Reddy MD IMG US ORDERABLES HCG QUALitative (06/24/2014 8:30 PM TRUCK MANAGER) [facility] Method Time Signature HCG Qualitative Negative NEG [facility] LAB Specimen Anatomical Collection Method Collection Time Receive d Time (Source) Location / / Volume Laterality Blood specimen 06/24/2014 8:30 PM 014 8:49 (specimen) TRUCK MANAGER PM TRUCK MANAGER Gene Reddy MD LAB - BLOOD ORDERABLES Performing Organization Address [facility]/ZIP [facility] e Number [facility] [address], [place] [address] [facility] LAB Lipase (06/24/2014 8:30 PM TRUCK MANAGER) athologist Signature Lipase [phone] [facility] U/L [facility] [facility] Comment: Effective 03/02/2014, the reference range for this assay has changed to reflect new instrumentation/methodology. Specimen Anatomical Collection Method Collection Time Receive d Time (Source) Location / / Volume Laterality Blood specimen 06/24/2014 8:30 PM 014 8:49 (specimen) TRUCK MANAGER PM TRUCK MANAGER Gene Reddy MD LAB - BLOOD ORDERABLES Performing Organization Address [facility] e Number [facility] [address], [place] [address] [facility] (ABNORMAL) Comprehensive metabolic panel (06/24/2014 8:30 PM TRUCK MANAGER) athologist Signature Sodium 138 133 - 144 [place] mmol/L [facility] Potassium 3.6 3.4 - 5.3 [place] mmol/L [facility] Chloride 104 94 - 109 [place] mmol/L [facility] Carbon Dioxide 27 20 - 32 [place] mmol/[facility] Anion Gap 7 3 - 14 [place] mmol/L [facility] Glucose 88 70 - 99 [place] mg/dL [facility] Comment: Effective 03/02/2014, the reference range for this assay has changed to reflect new instrumentation/methodology. Urea Nitrogen 21 7 - 30 mg/dL [facility] Comment: Effective 03/02/2014, the reference range for this assay has changed to reflect new instrumentation/methodology. Creatinine 1.02 0.52 - 1.04 mg/dL [facility] GFR Estimate 58 (L) >60 mL/min/1.7m2 [facility] Comment: Non GFR Calc GFR Estimate If Black 71 >60 mL/min/1.7m2 [facility] Comment: GFR Calc Calcium 8.8 8.5 - 10.1 mg/dL [facility] Comment: Effective 03/02/2014, the reference range for this assay has changed to reflect new instrumentation/methodology. Bilirubin Total 0.5 0.2 - 1.3 mg/dL [facility] Albumin 4.1 3.4 - 5.0 g/dL [facility] Protein Total 7.5 6.8 - 8.8 g/dL [facility] Alkaline Phosphatase 22 (L) 40 - 150 U/L [facility] ALT 25 0 - 50 U/L [facility] AST 21 0 - 45 U/L [facility] Specimen Anatomical Collection Method Collection Time Receive d Time (Source) Location / / Volume Laterality Blood specimen 06/24/2014 8:30 PM 014 8:49 (specimen) TRUCK MANAGER PM TRUCK MANAGER Gene Reddy MD LAB - BLOOD ORDERABLES Performing Organization Address City/State/ZIP Code Phon e Number M [facility] [address] [address] [facility] CBC with platelets differential (06/24/2014 8:30 PM TRUCK MANAGER) [facility] gist Method Time Signature WBC 5.7 4.0 - [facility] 11.0 [facility] 10e9/L [facility] RBC Count 5.03 3.8 - 5.2 [place] 10e12/L [facility] Hemoglobin 14.9 11.7 - [place] 15.7 g/dL [facility] Hematocrit 42.9 35.0 - [place] 47.0 % [facility] MCV 85 78 - 100 [place] fl [facility] MCH 29.6 26.5 - [facility] 33.0 pg [facility] MCHC 34.7 31.5 - [place] 36.5 g/dL [facility] RDW 12.5 10.0 - [place] 15.0 % [facility] Platelet Count 212 150 - 450 [place] 10e9[facility] Diff Method Automated [facility] % Neutrophils 60.6 % [facility] % Lymphocytes 25.1 % [facility] % Monocytes 13.3 % [facility] % Eosinophils 0.5 % [facility] % Basophils 0.5 % [facility] % Immature 0.0 % [place] Granulocytes [facility] Absolute 3.5 1.6 - 8.3 [place] Neutrophil 10e9/[facility] Absolute 1.4 0.8 - 5.3 [place] Lymphocytes [address] LAB Absolute 0.8 0.0 - 1.3 [place] Monocytes [address] [place] [address] LAB Absolute 0.0 0.0 - 0.[address] [place] Eosinophils [address] [place] [address] LAB Absolute 0.0 0.0 - 0.[address] [place] Basophils [address] [place] [address] LAB Abs Immature 0.0 0 - 0.4 [place] Granulocytes [address] [place] [address] LAB Specimen Anatomical Collection Method Collection Time Receive d Time (Source) Location / / Volume Laterality Blood specimen 06/24/2014 8:30 PM 014 8:49 (specimen) TRUCK MANAGER PM TRUCK MANAGER Gene Reddy MD LAB - BLOOD ORDERABLES Performing Organization Address City/State/ZIP Code Phon e Number M [facility] [address] [place], [place] [address] [facility] EKG 12-lead, tracing only (06/24/2014 8:19 PM TRUCK MANAGER) [facility] gist Method Time Signature Interpretation ECG Click View RADIOLOGY Image link RESULTS to view waveform and result Specimen (Source) Anatomical Collection Method Collection Time Re ceived Time Location / / Volume Laterality 06/24/2014 8:19 PM TRUCK MANAGER Gene Reddy MD ECG ORDERABLES Performing Organization Address City/State/ZIP Code Phon e Number RADIOLOGY RESULTS documented in this encounter Visit Diagnoses Diagnosis Acute epigastric pain - Primary Abdominal pain, epigastric Atypical chest pain Other chest pain documented in this encounter Administered Medications Inactive Administered Medications - up to 3 most recent administrations Medication Order MAR Action Action Date Dose Rate Site ondansetron (ZOFRAN) injection 4 mg Given 06/24/2014 8:31 PM TRUCK MANAGER 4 mg 4 mg, Intravenous, EVERY 30 MIN PRN, nausea, vomiting, Administer over 2-5 Minutes, Starting on Fri06/24/14 at 2003, For 3 doses, May repeat in 30 minutes as needed, up to 3 doses. ranitidine (ZANTAC) injection 50 mg Given 06/24/2014 8:34 PM TRUCK MANAGER 50 mg 50 mg, Intravenous, ONCE, On Fri06/24/14 at 2004, For 1 dose sodium chloride 0.9 % BOLUS New Bag 06/24/2014 8:37 PM TRUCK MANAGER 1,000 m Ls 1000 mL/hr 1,000 mL Intravenous, 1,000 mL, ONCE, at 1,000 mL/hr, Administer over 1 Hours, On Fri06/24/14 at 2004, For 1 dose documented in this encounter Active and Recently Administered Medications Times are shown in TRUCK MANAGER. Scheduled Medication Order 06/22/2014 06/23/2014 06/24/2014 ranitidine (ZANTAC) injection 50 mg (COMPLETED) 2033 (Given - Provider: Jennifer Young RN) 50 mg, Intravenous, ONCE, Fri06/24/14 at 2004, For 1 dose sodium chloride 0.9 % BOLUS 1,000 mL (COMPLETED) 2036 (New Bag - Provider: Jennifer Young RN)2207 (Stopped - Provider: Jennifer Young RN) Intravenous, 1,000 mL, ONCE, at 1,000 mL /hr, Administer over 1 Hours, On Fri06/24/14 at 2004, For 1 dose PRN Medication Order 06/22/2014 06/23/2014 06/24/2014 ondansetron (ZOFRAN) injection 4 mg (CANCELED) 2030 (Given - Provider: Jennifer Young, BRIAN) 4 mg, Intravenous, EVERY 30 MIN PRN, [place], vomiting, for 2 Minutes, Starting 06/24/14 at 2004, For 3 doses, May repeat in 30 minutes as needed, up to 3 doses. documented in this encounter Care Teams [address] Judge Relationship Specialty Start Date End Date Clinic, [facility] PCP - General 06/24/14 05/08/[address] [place] [id number] documented as of this encounter
--- OUTSIDE RECORDS SUMMARY | 2022-04-23 15:32 | XMS_ITS | Encounter Summary ---
:1970 Author Organization [place] Address [address] [facility] [place] [address] Care Team Providers Name Role Phone Unavailable Primary Care Provider Unavailable Encounter Details Date Type Department Care Team Description 03/20/2009 Results Only [facility] Richar Dupree, [facility] Radiology Results [facility] [address] [place], [place] [id number] (Wo rk) Social History Tobacco Use Types Packs/Day Years Used Date Never Assessed Sex Assigned at Date Recorded Not on file documented as of this encounter Plan of Treatment Not on filedocumented as of this encounter Procedures Procedure Name Priority Date/Time Associated Diagnosis Comme [facility] X-RAY CERV SPINE Routine 03/20/2009 8:13 AM Re sults for this COMPLETE CDT procedure are i n the results section. documented in this encounter Results X-RAY CERV SPINE 7 VIEWS (03/20/2009 8:13 AM CDT) Specimen (Source) Anatomical Collection Method Collection Time Re ceived Time Location / / Volume Laterality 03/20/2009 8:13 AM CDT Impressions RADIOLOGY RESULTS - 03/20/2009 2:09 PM C DT CERVICAL SPINE FIVE OR MORE VIEWS ??Mar 20, 2009 8:13 AM HISTORY: Preoperative anterior cervical decompression. Fusion C6-C7. FINDINGS: Five views of the cervical spi ne including flexion and extension views demonstrates C1 through C7 without sign of fracture, displacement, or other acute findings. T here is intervertebral disc space narrowing noted associated with C5 -C6. Flexion and extension views suggest reduced flexion range of m otion without evidence for subluxation/instability. Prevertebral so ft tissues appear normal. IMPRESSION: C5-C6 disc space narrowing w ith lesser involvement of the disc above and below. Reduced flexion ra nge of motion without subluxation. Richar Dupree MD GENERAL IMAGING Performing Organization Address City/State/ZIP Code Phon e Number RADIOLOGY RESULTS documented in this encounter Visit Diagnoses Not on filedocumented in this encounter
--- OUTSIDE RECORDS SUMMARY | 2022-04-23 15:32 | XMS_ITS | Encounter Summary ---
:1970 Author Organization [place] Address [address] [place] [address] Care Team Providers Name Role Phone [facility] Primary Care Provide r Encounter Details Date Type Department Care Team Description 12/13/2021 Travel Social History Tobacco Use Types Packs/Day Years [...] have Coronavirus/COVID-19? documented as of this encounter Plan of Treatment Not on filedocumented as of this encounter Visit Diagnoses Not on filedocumented in this encounter Care Teams Street Supervisor Relationship Specialty Start Date End Date [facility] PCP - General 05/09/[address] [place] [id number] documented as of this encounter
--- OUTSIDE RECORDS SUMMARY | 2022-04-23 15:32 | XMS_ITS | Encounter Summary ---
:1970 Author Organization [place] Address [address] [place] [address] Care Team Providers Name Role Phone Unavailable Primary Care Provider Unavailable Encounter Details Date Type Department Care Team Description 03/25/2009 Historic Gripper Installer INTERFACED REPORT InterfaceOksana MD Social History Tobacco Use Types Packs/Day Years Used Date Never Assessed Sex Assigned at Date Recorded Not on file documented as of this encounter Plan of Treatment Not on filedocumented as of this encounter Visit Diagnoses Not on filedocumented in this encounter
--- OUTSIDE RECORDS SUMMARY | 2022-04-23 15:32 | XMS_ITS | Encounter Summary ---
:1970 Author Organization [place] Address [address] [place] [address] Care Team Providers Name Role Phone Unavailable Primary Care Provider Unavailable Encounter Details Date Type Department Care Team Description 03/21/2009 Historic Notes INTERFACED REPORT Interface, Transcript on, Social History Tobacco Use Types Packs/Day Years Used Date Never Assessed Sex Assigned at Date Recorded Not on file documented as of this encounter Progress Notes Interface, Interventional Technologist - 10/20/2010 9:16 PM CDT Progress Note - :: Status: D: VSS, HR 113, pain 6/10- gave MOrphine- pt is hesitant about taking pain meds, nausea early on during the night- gave 10mg compazine- pt is feeling better, soft collar on -JAMES dressing, independently using BR- voiding, NIYA has minimal serosang. drainage, CMS intact- strong hand dried fruit washer, PIV infusing for now. I/A: discussed plan for the night, administered pain meds and antiematic, performed routine assessments and frequent checks, encouraged pt to express needs and concerns, placed call within reach length, pt seems to be resting for now. P: Will continue to monitor and assess and intervene if necessary. AMANDA Valenzuela (BRIAN)[Signed 06:47] Authored: Progress Note Interface, Interventional Technologist - 10/20/2010 9:16 PM CDT General Information - Patient Profile See Profile for full history and prior level of Review: function - Onset Date: - Referring Physician: Richar Dupree - Patient/Family Goals: Dress and move around house on own - History of Present DJD Problem: - Treatment Diagnosis: C6-7 disc herniation - Precautions/Limitati_ Spine precautions ons: - Weight Bearing No weight bearing restrictions Status: - Observations: Lying in bed. Seems fatigued Cognitive Status - Orientation: orientation to person, place and time - Level of alert; lethargic/somnolent Consciousness: - Follows Commands and 100% of the time Answers Questions: - Personal Safety and intact Judgment: - Memory: intact Pain - Pain: Yes (see Vital Signs flowsheet), back of neck; 10 Posture - Posture: Posture was appropriate Range of Motion - Range of Motion: ROM was appropriate in all areas Strength - Strength: Deficits were identified - Comments: Pain with MMT biceps bilaterally, 4-/5 All other MMT 5/5 Bed Mobility: Rolling/Turning - Level of independent [place]: Bed Mobility: Scooting/Bridging - Level of independent [place]: Bed Mobility: Sit to Supine - Level of independent [place]: Bed Mobility: Supine to Sit - Level of independent [place]: Transfer: Sit to Stand - Level of independent [place]: Transfer: Stand to Sit - Level of independent [place]: Gait Skills - Level of modified independent [place]: - Gait Distance: 150 feet Gait Analysis - Gait Deviations Slowed gait speed Noted: - Comments: Pt became nauseated and had a vomiting episode on return to room. Pt transferred to , returned to room. Stairs/Curb - Stairs: Modified independent, 1 rail, Stairs, 3 Sensation - Sensation: Sensation was appropriate in all areas Proprioception/Coordination - Proprioception/coord_ proprioception and coordination were appropriate ination: in all area Treatment Plan - Treatments: Gait Training, Strengthening Clinical Impression - Skilled Criteria for Yes Therapy Intervention Met: - PT Practice Pattern: Musculoskeletal - Assessment: Pt is a 38 y.o. female s/p cervical spine surgery. Pt has 2 flights of stairs at home that she needs to be able to ambulate up/down independently. Pt children are able to assist her with minor needs during the day. available at night. PT intervention indicated for 1 additional session to train in stair ambulation and instruct/educate in HEP and spinal health program. - Rehabilitation Good, to achieve stated therapy goals Potential: - Predicted Duration of 1 day Therapy: - Predicted Frequency BID of Therapy: - Discharge Home; Home with outpatient services Destination: - Risks and Benefits of Yes Treatment have been explained.: - Patient, family Yes and/or staff in agreement with Plan of Care: BERNICE Pressley (PT)[Signed 09:23] Authored: General Information, Cognitive Status, Pain, Posture, Range of Motion, Strength, Bed Mobility: Rolling/Turning, Bed Mobility: Scooting/Bridging, Bed Mobility: Sit to Supine, Bed Mobility: Supine to Sit, Transfer: Sit to Stand, Transfer: Stand to Sit, Gait Skills, Gait Analysis, Stairs/Curb, Sensation, Proprioception/Coordination, Treatment Plan, Clinical Impression Interface, Interventional Technologist - 10/20/2010 9:15 PM CDT Discharge Summary - Reason for Discharge All goals and outcomes met, no further needs identified, Discharge from facility, to home - Progress toward Goals met achieving short term goals/half-way goals - Comments PT: Pt will meet the following goals by 03/21/09 1) Pt will ambulate up/down 18 stairs wtih 1 rail mod I in order to get to her bedroom at home. 2) Pt will ambulate 75' with no nausea or dizziness. 3) Pt will be I in HEP - Continued Therapy Possible need to outpatient PT depending on Recommended return of UE strength and/or UE tingling symptoms BERNICE Pressley (PT)[Signed 13:30] Authored: Discharge Summary Interface, Interventional Technologist - 10/20/2010 9:14 PM CDT Progress Note - :: Focus: Discharge D- Patient has orders to discharge and meets criteria. The patient is agreeable to discharge. I/A Reviewed discharge orders with the patient, including medications. Pt declined prescriptions and will take only ES tylenol @ home. Pain relief is adequate from this and stronger meds make her nauseous. Patient understands discharge orders as they are written. Wearing soft collar. P. Discharge as ordered. Patient instructed to follow up with primary physican with any further questions they may have. WENDY Bray (RN)[Signed 20:07] Authored: Progress Note documented in this encounter Plan of Treatment Not on filedocumented as of this encounter Visit Diagnoses Not on filedocumented in this encounter
--- OUTSIDE RECORDS SUMMARY | 2022-04-23 15:32 | XMS_ITS | Encounter Summary ---
:1970 Author Organization [place] Address [address] [place] [address] Care Team Providers Name Role Phone Unavailable Primary Care Provider Unavailable Encounter Details Date Type Department Care Team Description 03/28/2009 Discharge Summary [facility] Richar Mackay (Automotive Service Advisor) [facility] MD Axel Results [facility] [address] [place], [place] [id number] (Wo rk) Social History Tobacco Use Types Packs/Day Years Used Date Never Assessed Sex Assigned at Date Recorded Not on file documented as of this encounter Progress Notes Richar Dupree - 04/04/2009 7:03 AM CDT PRELIMINARY On the day of admission, Ms. Thomason [...] in 1 week's time for further clinical followup. RICHAR DUPREE MD [place]: Name: ARHAT THOMASON MRN: [id number] Account: [id number] : 1970 Admit Date: [id number] Discharge Date: 03/28/2009 Document: [id number] documented in this encounter Plan of Treatment Not on filedocumented as of this encounter Visit Diagnoses Not on filedocumented in this encounter
--- OUTSIDE RECORDS SUMMARY | 2022-04-23 15:32 | XMS_ITS | Encounter Summary ---
:1970 Author Organization [facility] Address [address] [place] [address] Care Team Providers Name Role Phone Unavailable Primary Care Provider Unavailable Encounter Details Date Type Department Care Team Description 03/20/2009 Operative Report [facility] Richar Dupree (Manager Field Sales) [facility] MD Axel Results [facility] [address] [place], [place] [id number] (Wo rk) Social History Tobacco Use Types Packs/Day Years Used Date Never Assessed Sex Assigned at Date Recorded Not on file documented as of this encounter Progress Notes Richar Dupree - 03/21/2009 2:57 PM CDT FINAL SURGEON: Richar Dupree MD GARBAGE PICK UP WORKER: MARIELLE Stearns PREOPERATIVE DIAGNOSIS: Large herniated disc C6-C7 with triceps weakness. POSTOPERATIVE DIAGNOSIS: Large herniated disc C6-C7 with triceps weakness. PROCEDURE PERFORMED: Anterior cervical decompression and fusion C6-C7, bone marrow aspirate, allograft bone plate fixation. DESCRIPTION OF PROCEDURE: Ms. Thomason was taken to the operating room, given satisfactory general endotracheal anesthetic, was appropriately positioned, prepared and draped for anterior cervical surgery. All neurovascular pressure points were carefully and deliberately protected. Great care was used to maintain the neck well within demonstrated preoperative range of motion, no tapes were used. After careful positioning, prepping and draping, a standard left-sided anterolateral exposure was utilized. Proximal 1 inch incision was used. Skin, subcutaneous tissue and platysma were divided via skin incision and the anterior border of sternocleidomastoid was mobilized proximally and distally andreleased. The middle layer of cervical fascia was put on stretch and released. She had a high-ridingand proximally inserted omohyoid and for that reason, the dissection was done below the omohyoid. The middle layer of cervical fascia was bluntly dissected. Great care was used to avoid the tracheoesophageal groove and recurrent laryngeal nerve, neither of which were seen or sought after. The retropharyngeal space was bluntly developed and ultimately once clear, the pretracheal and prevertebral fascia was split thus exposing the anterior spine and check radiograph verified our operative level. Careful bilateral subperiosteal reflection of the longus colli was carried out and surprisingly, deep self-retaining retractors were necessary in order to clear the clavicle and provide adequate exposure. Up-down exposure was maintained with [place] pin post device. The discectomy was begun by first cleaning anterior osteophytes away from the annulus with hand instruments, so the disc annulus was incised and piecemeal discectomy down the posterior longitudinal ligament was carried out. Motorized dissection was used in a parallel fashion to remove cartilaginous endplate and improve operative exposure. The posterior longitudinal ligament was identified, thinned and ultimately removed from [id number]. It became quite clear that this lady had an extruded disc herniation. There was some tenaciousness to the fibrovascular granulation tissue which had formed aboutthe take-off of the nerve root. A very deliberate decompression of the takeoff of the nerve root was carried out once the epidural space positively identified. Numerous small fragments and one extrudedfragment was removed. Given the chronicity of this disc, we did not get one clean large fragment butrather numerous bits of small somewhat scarred disc material. Ultimately, the takeoff of the nerve root was identified and decompressed within the absolute limits of the anterior approach. At the termination of the decompression, a blunt nerve hook was carefully swept about the distal margins of the vertebral endplate. The dura appeared to not be tented by an obvious fragment. Everything appeared to be satisfactory decompressed and a blunt nerve hook passed into the foramen without incident. The hemostasis was secured. There were several epidural veins, which required judicious use of pledgets of Gelfoam but ultimately prior to bone graft placement, to be described below, the vertebral body endplates and the epidural space were quite dry. Careful measurement of the disc space with a gentle mechanical distraction yielded 7-mm size and this allograft was soaked with a 2 mL of bone marrow aspirate, which was harvested from the left anterior superior iliac spine suitably distal to the ASIS. A unicortical laterally based puncture was used to withdraw 2 mL and soak the bone graft. Additional morcellized fragments from the osteophytectomy and uncovertebral section were used to augment the fusion construct off to the sides. A 12-mm Biomet plate was sculpted to accept the anterior cervical lordosis. 12- mm screws were incrementally inserted. Her bone was outstandingly hard and had superb fixation at all 4 screws. Incremental images were obtained to guide plate placement. Given the limited exposure, the plate went on the AP view was very slightly canted to allow for the screws to be passed into the [place] post-holes. After verification of the locking mechanisms per pipe bending machine operator's instructions, final images were stored for documentation sake. The posterior aspect of the esophagus was inspected. It was clean and dry. There was no evidence oftrauma, tear or leakage. Indigo [place] was instilled. There was no evidence of leakage. A layered anatomical closure over suction drain consisting of 3-0 in the platysma, 4-0 in the subcutaneous tissue and 5-0 Prolene in the skin completed the operation. Estimated blood loss was less than 25 mL. Sponge and needle count correct. There were no apparent intraoperative or technical complications. Of note is that the endotracheal tube was deflated and reinflated in order to minimize intratracheal pressure as well as loosening the retractors went feasible. Final clinical diagnosis is that of chronic soft disc herniation requiring anterior decompression and fusion. There was a large annular tear over the posterior longitudinal ligament and the extruded fragments contained therein. Electronically signed on 03/21/2009 14:57 by RICHAR DUPREE MD MT: [id number] Name: RAHAT THOMASON MRN: [id number] Account: [id number] : 1970 Procedure Date: 03/20/2009 Document: [id number] cc: Lor Grimaldo MD documented in this encounter Plan of Treatment Not on filedocumented as of this encounter Visit Diagnoses Not on filedocumented in this encounter
--- OUTSIDE RECORDS SUMMARY | 2022-04-23 15:33 | XMS_ITS | Encounter Summary ---
:1970 Author Organization [facility] Address [address] [place] [address] Care Team Providers Name Role Phone Britney Jarrett MD Primary Care Provider Reason for Referral (Routine) - Closed Specialty Diagnoses / Procedures Referred By Contact Refer red To Contact Diagnoses Left lumbar radiculitis Braeden Barragan MD Procedures Dexamethasone [address] [facility] [address] [place] [address] Referral ID Status Reason Start Date Expiration Date Visits Requ ested Visits Authorized [id number] Closed 10/07/2018 01/06/2020 1 1 LOGGING MUD ANALYSIS CAPTAIN (Routine) - Closed Specialty Diagnoses / Procedures Referred By Contact Refer red To Contact Diagnoses Left lumbar radiculitis Braeden Barragan MD Procedures Dexamethasone [address] [facility] [address] [place] [address] Referral ID Status Reason Start Date Expiration Date Visits Requ ested Visits Authorized [id number] Closed 10/07/2018 01/06/2020 1 1 LOGGING MUD ANALYSIS CAPTAIN Reason for Visit Reason Comments Procedure Procedure/Equipment (Routine) - Incomplete Specialty Diagnoses / Procedures Referred By Contact Refer red To Contact Diagnoses Left lumbar radiculitis Doni Conway MD Procedures FL C Arm 20 Pain Management [address] [facility] [address] [place] [address] Referral ID Status Reason Start Date Expiration Date Visits V isits Requested Authorized [id number] Incomplete 10/03/2018 01/02/2020 1 1 Encounter Details Date Type Department Care Team Description 10/07/2018 Procedure Visit [facility] Doni Conway MD [address] [facility] [place] [id number] Procedure [address] [facility] Braeden Barragan MD [address] [facility] [place] [id number] [place] [address] 3, Tria Rad Rn [phone] Social History Tobacco Use Types Packs/Day Years Used Date Smoking Tobacco: Never Smokeless Tobacco: Never Alcohol Use Standard Drinks/Week Comments Yes 0 (1 standard drink = 0.6 oz pure alcoho l) rare Alcohol Habits Answer Date Recorded How often do you have a drink containing alcohol? Not asked How many drinks containing alcohol do you have on a typical Not asked day when you are drinking? How often do you have six or more drinks on one occasion? No t asked Comment: rare 03/23/2016 Sex Assigned at Date Recorded Not on file documented as of this encounter Last Filed Vital Signs Vital Sign Reading Time Taken Comments Blood Pressure 131/76 10/07/2018 3:35 PM WELL LOGGING MUD ANALYSIS CAPTAIN Pulse 87 10/07/2018 3:35 PM WELL LOGGING MUD ANALYSIS CAPTAIN Temperature 37 ??C (98.6 ??F) 10/07/2018 2:47 PM WELL LOGGING MUD ANALYSIS CAPTAIN Respiratory Rate 18 10/07/2018 3:35 PM WELL LOGGING MUD ANALYSIS CAPTAIN Oxygen Saturation 100% 10/07/2018 3:35 PM WELL LOGGING MUD ANALYSIS CAPTAIN Inhaled Oxygen Concentration - - Weight 59 kg (130 lb) 10/07/2018 2:47 PM WELL LOGGING MUD ANALYSIS CAPTAIN Height 152.4 cm (5') 10/07/2018 2:47 PM WELL LOGGING MUD ANALYSIS CAPTAIN Body Mass Index 25.39 10/07/2018 2:47 PM WELL LOGGING MUD ANALYSIS CAPTAIN documented in this encounter Patient Instructions Patient InstructionsSaElina power RN - 10/07/2018 2:50 PM CST FOLLOW UP PLAN: Please follow up with Dr. Doni Conway in 10-14 days; call [phone] to schedule an appointment if you do not already have one. Lumbar Epidural Injection Post-Procedure Instructions: ?? Rest today, you may resume your normal activities tomorrow (Physical Therapy & director day care center can also be resumed next day). ?? Refrain from driving until tomorrow (Local anesthetic near the spine has the potential to make you weak or slow your reaction time) ?? Apply ice to site (20 minutes on/ 20 minutes off) for the next 48 hours if you experience any soreness or pain. ?? No heat to site for next 48 hours (car seat warmers, heating pads, electric blankets, etc) ?? No tub baths, pools, hot tubs or lakes for 2 days. You may shower. ?? Resume your regular diet and medications ?? One or more band-aids have been applied to the injection site(s). Please leave on today; you may remove them in the morning. If they fall off, no need to replace. ?? After a few hours the numbing (anesthetic) will wear off and pain may return. It often takes about 3-10 days for the steroid to reach full effect, as a result you may not notice any significant decrease in pain for a week or more ?? If you experience shortness of breath, pain when breathing, or severe swelling, perineal numbness, loss of bowel or bladder control, or progressive extremity weakness that does not resolve in 6 hours notify the doctor. If it is after normal clinic hours (8a-4p), go to the nearest emergency room for evaluation. ?? You may experience the following symptoms which are NORMAL ?? up to 6 hours after your injection: ?? Warmth ?? Tingling ?? Heaviness ?? Numbness ?? Can last a day or 2 post injection ?? Flushing in face ?? Insomnia/difficulty sleeping ?? If the symptoms last more than 12 hours, call the doctor If you have a severe headache that goes away when lying down, this may be a spinal headache - thisis not an emergency, but please alert our team so we can help you manage it. This is uncommon. Dr. Braeden Barragan MD Interventional Pain Physician and Anesthesiologist Please contact the Pain Nurse ([phone]) for all medical/procedural questions regarding your care at the [facility] Please contact our Nitrogen Operator ([phone]) for all administrative/scheduling questions related to the [facility] Medication Requests: ?? Prescriptions requiring refills must be requested from the prescribing physician. If Dr. Barragan prescribed your medication, call the number above. If any other physician prescribed your medication, please contact his or her office to discuss. LOGGING MUD ANALYSIS CAPTAIN documented in this encounter Progress Notes Renetta Domingo RN - 10/07/2018 2:50 PM CST Patient here for LESI procedure. Patient rates pain in lower back, 3/10 at rest, 8/10 with activity.Verified NPO status. Pre-op teaching completed, patient verbalizes understanding. 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 Consent per MD. LOGGING MUD ANALYSIS CAPTAIN Elina Eduardo RN - 10/07/2018 2:50 PM CST Patient tolerated procedure well, vital signs stable. Post-procedure pain level 0/10 at rest, 0/10 with activity. Discharge instructions given (written & verbal review), patient verbalized understanding. Patient discharged to home at 1558 via wheelchair with spouse. Patient c/o of heaviness left leg, patient advised to use caution over the next 6 hours until resolves. Assisted to car in wheelchair. LOGGING MUD ANALYSIS CAPTAIN documented in this encounter Procedure Notes Braeden Barragan MD - 10/07/2018 2:50 PM CST Procedure Note Lumbar Transforaminal Epidural Steroid Injection under Flouro Procedure Date: 10/07/2018 Patient: Josie Booker 1970 PREOPERATIVE DIAGNOSIS: Lumbar Radicular Pain POSTOPERATIVE DIAGNOSIS: Lumbar Radicular Pain OPERATION PERFORMED: Left Lumbar Transforaminal Epidural Steroid Injection at levels: L5/S1 Given the patient's grade 3 spondylolisthesis and altered anatomy, as well as significant osteophytic change, approach at this level required a high degree of cranial tilt of the C-arm. Interventionalist: Braeden Barragan MD Sedation was not used ESTIMATED BLOOD LOSS: None FLUIDS: 0 mL FLUOROSCOPY WAS USED. TOTAL SEDATION TIME: 0 minutes. INDICATIONS FOR PROCEDURE: This is a 48 y.o. year old female with a clinical picture consistent with the above-mentioned diagnosis, resulting in radicular pain to the Left lower extremity as confirmed on clinical exam and imaging studies. Pain has been refractory to conservative therapy. PROCEDURE AND FINDINGS: The patient was greeted in the pre procedure holding area. The risk, benefits and alternatives to the procedure were again reviewed with the patient and written informed consent was placed in the chart. Prior to the procedure a time out was completed, verifying correct patient, procedure, site, positioning, and implants and/or special equipment. The patient was taken to the procedure room and positioned prone on the fluoroscopy table. Then a shale planer operator film was taken to identify the correct level. The skin was prepped and draped in the usual sterile fashion. The overlying skin and subcutaneous tissue was anesthetized using a 25-gauge 1-1/2 inch needle with 1% preservative-free lidocaine for a total volume of 2 mls. Then a 22-gauge 5 inch Quincke spinal needle was advanced under fluoroscopic guidance using an oblique view just inferior to the pedicle of the L5 level to the laterality mentioned above. The fluoroscopy view was changed to the AP and lateral views and the needle position was confirmed to be within the foramen. I then attached a flushed 20-inch length of low-volume microbore tubing to the needle hub to minimize any further needle movement or introduction of air. Then 1 mls of Isovue-M 200 dye from a10cc vial was injected under AP view at each level with DSA and confirmed adequate spread along the nerve root and in the epidural space. There was no evidence of intravascular uptake or intrathecal spr ead on imaging. A lateral view was also taken confirming adequate epidural spread. At this point, 10 mg of dexamethasone was injected along with 2.0 mls of 0.25% bupivacaine per level. The needle was then re-styletted and removed. The needle insertion site was dressed appropriately. The patient was carefully escorted to the recovery room where they were monitored for a brief periodof time. 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 Prior to the procedure, the patient reported a pain score of 3/10 at rest and 8/10 with activity. Shortly before discharge, we noted a pain score of 0/10 at rest and 0/10 with activity. Follow-up will be Clinic Visit with Dr. Conway, per pertinent documentation. COMPLICATIONS: None LOGGING MUD ANALYSIS CAPTAIN documented in this encounter Plan of Treatment Not on filedocumented as of this encounter Procedures Procedure Name Priority Date/Time Associated Diagnosis Comme nts FL C ARM 20 PAIN Routine 10/07/2018 3:24 PM Left lumbar Resul ts for this MANAGEMENT WELL LOGGING MUD ANALYSIS CAPTAIN radiculitis procedure are i n the results section. documented in this encounter Results FL C Arm 20 Pain Management (10/07/2018 3:24 PM WELL LOGGING MUD ANALYSIS CAPTAIN) Anatomical Region Laterality Modality Radiographic Imaging Specimen (Source) Anatomical Location Collection Method / Collectio n Time Received Time / Laterality Volume Narrative 10/07/2018 3:47 PM WELL LOGGING MUD ANALYSIS CAPTAIN Images obtained during surgical procedure. Doni Conway MD RAD FL documented in this encounter Visit Diagnoses Diagnosis Left lumbar radiculitis Thoracic or lumbosacral neuritis or radi culitis, unspecified documented in this encounter Care Teams Nurse Midwife Relationship Specialty Start Date End Date Britney Jarrett MD PCP - General 04/04/161999 [place] [address] documented as of this encounter
--- OUTSIDE RECORDS SUMMARY | 2022-04-23 15:33 | XMS_ITS | Encounter Summary ---
:1970 Author Organization [facility] Address [address] [place] [address] Care Team Providers Name Role Phone Britney Jarrett MD Primary Care Provider Reason for Visit Procedure/Equipment (Routine) - Incomplete Specialty Diagnoses / Procedures Referred By Contact Refer red To Contact Diagnoses Chronic pain of right knee Cristal Calero MD Procedures XR Knee Lt 1-[address] [facility] [facility] [address] [place] [address] Referral ID Status Reason Start Date Expiration Date Visits V isits Requested Authorized [id number] Incomplete 03/27/2020 06/26/2021 1 1 Encounter Details Date Type Department Care Team Description 03/27/2020 Ancillary [facility] Cristal Calero Chronic pain of Procedure [address] [facility] [place] [address] [phone] Social History Tobacco Use Types Packs/Day Years [...] Name Priority Date/Time Associated Comments Diagnosis XR KNEE LT 1-2 VIEWS Routine 03/27/2020 12:19 PM Chronic pain of Results for this COMPARISON CDT right knee procedure are i n the results section. XR KNEE RT 3 VIEWS Routine 03/27/2020 12:19 PM Chronic pain of Results for this CDT right knee procedure are i n the results section. documented in this encounter Results XR Knee Lt 1-2 Views Comparison (03/27/2020 12:19 PM CDT) Anatomical Region Laterality Modality Lower Extremity, Knee Digital Radiograph y Specimen (Source) Anatomical Collection Method Collection Time Re ceived Time Location / / Volume Laterality 03/27/2020 12:09 PM CDT Impressions 03/27/2020 12:35 PM CDT COMPARISON: ??05/26/2016 FINDINGS: ?? Right knee: 3 views. No acute fractures or dislocations. Mild narrowing of the medial compartment may be degenerative. Lateral compartment is unremarkable. Mild lateral patellar subluxation and tilt wit h mild degenerative arthrosis. No joint effusion. Left knee: 2 views. No acute fractures o r dislocations. Chondrocalcinosis of the medial and lateral compartments. Mild narrowing of the medial compartment is likely degenerative. Lateral compartment is unremarkable. Lateral patellar subluxati on and tilt with mild degenerative arthrosis. Procedure Note Richar Lockwood MD - 03/27/2020Formatti ng of this note might be different from the original. IMPRESSION COMPARISON: 05/26/2016 FINDINGS: Right knee: 3 views. No acute fractures or dislocations. Mild narrowing of the medial compartment may be degenerative. Lateral compartment is unremarkable. Mild lateral patellar subluxation and tilt with mild degenerative arthrosis. No joint effusio n. Left knee: 2 views. No acute fractures o r dislocations. Chondrocalcinosis of the medial and lateral compartments. Mild narrowing of the medial compartment is likely degenerative. Lateral compartment is unremarkable. Lateral patellar subluxation and tilt wi th mild degenerative arthrosis. Cristal Calero MD RAD GD XR Knee Rt 3 Views (03/27/2020 12:19 PM CDT) Anatomical Region Laterality Modality Lower Extremity, Knee Digital Radiograph y Specimen (Source) Anatomical Collection Method Collection Time Re ceived Time Location / / Volume Laterality 03/27/2020 12:09 PM CDT Impressions 03/27/2020 12:35 PM CDT COMPARISON: ??05/26/2016 FINDINGS: ?? Right knee: 3 views. No acute fractures or dislocations. Mild narrowing of the medial compartment may be degenerative. Lateral compartment is unremarkable. Mild lateral patellar subluxation and tilt wit h mild degenerative arthrosis. No joint effusion. Left knee: 2 views. No acute fractures o r dislocations. Chondrocalcinosis of the medial and lateral compartments. Mild narrowing of the medial compartment is likely degenerative. Lateral compartment is unremarkable. Lateral patellar subluxati on and tilt with mild degenerative arthrosis. Procedure Note Richar Lockwood MD - 03/27/2020Formatti ng of this note might be different from the original. IMPRESSION COMPARISON: 05/26/2016 FINDINGS: Right knee: 3 views. No acute fractures or dislocations. Mild narrowing of the medial compartment may be degenerative. Lateral compartment is unremarkable. Mild lateral patellar subluxation and tilt with mild degenerative arthrosis. No joint effusio n. Left knee: 2 views. No acute fractures o r dislocations. Chondrocalcinosis of the medial and lateral compartments. Mild narrowing of the medial compartment is likely degenerative. Lateral compartment is unremarkable. Lateral patellar subluxation and tilt wi th mild degenerative arthrosis. Cristal Calero MD RAD GD documented in this encounter Visit Diagnoses Diagnosis Chronic pain of right knee documented in this encounter Care Teams Java Performance Engineer Relationship Specialty Start Date End Date Britney Jarrett MD PCP - General 04/04/161999 [place] [address] documented as of this encounter
--- OUTSIDE RECORDS SUMMARY | 2022-04-23 15:33 | XMS_ITS | Encounter Summary ---
:1970 Author Organization [facility] Address [address] [place] [address] Care Team Providers Name Role Phone Britney Jarrett MD Primary Care Provider Reason for Visit Reason Comments QUESTIONS, GENERAL Encounter Details Date Type Department Care Team Description 01/31/2020 Telephone [facility] Terrell Velasquez, QUESTIONS, GENERAL [address] [facility] [place], [place] [address] [address] [facility] [phone] [place] [address] (Wo rk) Social History Tobacco Use Types [...] on file documented as of this encounter Nursing Notes Radha Mckee - 01/31/2020 10:48 AM CDT Has the patient recently had surgery or an injury? No How may we help you today? Patient is wondering how long she would have to wait if any before she can get into the pool after her injection. Describe your symptoms/concerns: n/a When did the issue start: n/a Have you been seen for this recently?: n/a [Recruiting And Selection Consultant/Appt Center: If yes, please include date and provider.] Is it okay to leave detailed message on your voicemail? Yes [Recruiting And Selection Consultant/Appt Center: If this call is after 3 p.m., communicate to patient: If we are not able to get back to you by the end of the day and your symptoms worsen please contact the Careline] documented in this encounter Plan of Treatment Not on filedocumented as of this encounter Visit Diagnoses Not on filedocumented in this encounter Additional Health Concerns Infection Onset Date Last Indicated Resolved Time R/O COVID19 03/08/2020 03/08/2020 03/11/2020 1:28 AM CDT documented as of this encounter Care Teams Chief Cloth Finishing Range Operator Relationship Specialty Start Date End Date Britney Jarrett MD PCP - General 04/04/[address] [place] [address] documented as of this encounter
--- OUTSIDE RECORDS SUMMARY | 2022-04-23 15:33 | XMS_ITS | Encounter Summary ---
:1970 Author Organization [facility] Address [address], [place] [address] Care Team Providers Name Role Phone Britney Jarrett MD Primary Care Provider Reason for Visit Reason Comments Post Visit Follow Up Phone Call Encounter Details Date Type Department Care Team Description 03/23/2019 Telephone [facility] Cary Lyons, Post Visit Follow Up [address] [facility] RN Phone Call [place], [place] [address] Social History Tobacco Use Types Packs/Day Years [...] on filedocumented in this encounter Care Teams Computer Consultant Relationship Specialty Start Date End Date Britney Jarrett MD PCP - General 04/04/[address]1999 [place] [address] documented as of this encounter
--- OUTSIDE RECORDS SUMMARY | 2022-04-23 15:33 | XMS_ITS | Encounter Summary ---
:1970 Author Organization [facility] Address [address] [place] [address] Care Team Providers Name Role Phone Britney Jarrett MD Primary Care Provider Reason for Visit Reason Comments Questions office visit 4-17 Encounter Details Date Type Department Care Team Description 11/20/2017 Telephone [facility] Terrell Mccarthy, Talisha price (office CENTER MD visit 4-17) [address] [facility] [address] [place] [address] [place] [address] [address] [place], [place] [phone] (Wo rk) Social History Tobacco Use Types [...] documented as of this encounter Nursing Notes Manuel [place] RN - 11/25/2017 4:13 PM CDT Note is available. Pt called and left a message that if she has questions to call back. A message was left with the plan of care for her. Direct nursing line given to call back with any other questions or concerns. Megan Mckeon RN - 11/20/2017 8:30 AM CDT Patient called in with questions that she had after her clinic visit. Note from visit not ready from dictation yet. Left voice mail answering some of the questions but told her I wanted the note for reference. Will call back after note available. Left message on patient voice mail regarding this. documented in this encounter Plan of Treatment Not on filedocumented as of this encounter Visit Diagnoses Not on filedocumented in this encounter Care Teams Plant Reliability Engineer Relationship Specialty Start Date End Date Britney Jarrett MD PCP - General 04/04/[address] [place] [address] documented as of this encounter
--- OUTSIDE RECORDS SUMMARY | 2022-04-23 15:33 | XMS_ITS | Encounter Summary ---
:1970 Author Organization [facility] Address [address], [place] [address] Care Team Providers Name Role Phone Britney Jarrett MD Primary Care Provider Encounter Details Date Type Department Care Team Description 10/04/2018 Correspondence External to [facility] ORDER Social History Tobacco Use Types Packs/Day Years [...] documented as of this encounter Care Teams Baker Biscuit Relationship Specialty Start Date End Date Britney Jarrett MD PCP - General 04/04/[address] [place] [address] documented as of this encounter
--- OUTSIDE RECORDS SUMMARY | 2022-04-23 15:33 | XMS_ITS | Encounter Summary ---
:1970 Author Organization [facility] Address [address], [place] [address] Care Team Providers Name Role Phone Britney Jarrett MD Primary Care Provider Reason for Visit Reason Comments Pre-procedure Call Encounter Details Date Type Department Care Team Description 03/17/2019 Telephone [facility] Cary Lyons, Pre-procedure Call [address] [place], [place] [address] Social History Tobacco Use Types [...] on filedocumented in this encounter Care Teams Automated Access Systems Technician Relationship Specialty Start Date End Date Britney Jarrett MD PCP - General 04/04/[address] [place] [address] documented as of this encounter
--- OUTSIDE RECORDS SUMMARY | 2022-04-23 15:33 | XMS_ITS | Encounter Summary ---
:1970 Author Organization [facility] Address [address] [place] [address] Care Team Providers Name Role Phone Britney Jarrett MD Primary Care Provider Reason for Visit Reason Comments SHOULDER PAIN Encounter Details Date Type Department Care Team Description 05/26/2018 Office Visit [facility] Terrell Mccarthy, [facility] shoulder CENTER pain, unspecified [address] [facility] [address] [facility] [address] laterality (Primary [place], [place] [address] [place], [place] Dx) [phone] (Wo rk) Social History Tobacco Use Types [...] documented as of this encounter Progress Notes Terrell Mccarthy MD - 05/26/2018 4:27 PM CDT NAME: RAHAT THOMASON MR#: [id number] CSN: [id number] AUTHENTICATING CLINICIAN: Terrell Mccarthy MD CONFIRM #: [id number] LOC: 711 CLINIC PROGRESS NOTE DATE OF VISIT: 05/26/2018 : 1970 CHIEF COMPLAINT: Right shoulder status post distal clavicle excision, biceps tenodesis, glenohumeral debridement, left shoulder pain. HISTORY OF PRESENT ILLNESS: Ms. Thomason returns today for followup. She has done pretty well in the right shoulder, but she had excruciating left shoulder pain recently. This was so bad she went to the emergency department where they did an ultrasound and found fluid in there. They told her that she needed to go to be evaluated. She came to the acute injury clinic where she had an MRI scan ordered and was given a subacromial steroid injection by Dr. Flores. This included Marcaine. She has seen a substantial and significant improvement in her symptoms on that left side since. I reviewed with her the findings of her MRI scan. It was done at [facility], but in scanned into our electronic medical record. To my interpretation, it shows a mild superior labral abnormality. There is no evidence of full-thickness rotator cuff tearing. There is no medialization of the biceps. There are some mild arthritic changes at the acromioclavicular joint, but no evidence of full- thickness cartilageloss in the glenohumeral joint. There is no evidence of full- thickness rotator cuff tearing or fattyatrophy. PHYSICAL EXAM: On exam today, she is a well-developed woman in mild distress. She articulates and communicates wellwith a normal affect. She discusses her care well. I spent a total of 17 minutes of [id number]-mi-[id number] time, 12 of which was spent on coordination of care and counseling, discussing her care with her today. I think on her right side she can progress as tolerated, but on her left, I told her that I did not see anything surgically urgent. I told her that I thought it was reasonable for her to continue to do a home exercise program on this side as well. I told her that if her shoulder injection wears off, I would like to see her back so I can evaluate her and see what the most stimulated portions of her examination are, so that we could guide her intervention, such surgical treatment better. I told her that at that time, we would have a discussion about what kind of surgical interventions might be possible if such were indeed indicated at that time. She demonstrated a good understanding of this. We also talked about the possibility that she could have some kind of enthesopathy or rheumatologic disorder. She has previously seen a sports clerk, and was told she did not have rheumatoid arthritis because her labs were negative. We discussed that labs canchange over time, and how there can be non rheumatoid rheumatologic disorders. She demonstrated an excellent understanding of all of this, and will contact the office down the road should any additional problems arise. JPB:MEDQ C: R:05/26/18 16:52 CONFIRM#:[id number] documented in this encounter Plan of Treatment Not on filedocumented as of this encounter Visit Diagnoses Diagnosis Chronic shoulder pain, unspecified later ality - Primary documented in this encounter Care Teams Vice President Network Relationship Specialty Start Date End Date Britney Jarrett MD PCP - General 04/04/[address] [place] [address] documented as of this encounter
--- OUTSIDE RECORDS SUMMARY | 2022-04-23 15:33 | XMS_ITS | Encounter Summary ---
:1970 Author Organization [facility] Address [address] [place] [address] Care Team Providers Name Role Phone Britney Jarrett MD Primary Care Provider Reason for Visit Procedure/Equipment (Routine) - Incomplete Specialty Diagnoses / Procedures Referred By Contact Refer red To Contact Diagnoses Chronic left shoulder pain Terrell Mccarthy MD Procedures US Injection Lt Tendon or Ligament [address] [facility] [address] [place] [address] Referral ID Status Reason Start Date Expiration Date Visits V isits Requested Authorized [id number] Incomplete 12/28/2019 03/28/2021 1 1 Encounter Details Date Type Department Care Team Description 02/23/2020 Ancillary [facility] Terrell Mccarthy Chronic left Procedure [address] MD [address] [facility] [address] [phone] Social History Tobacco Use Types Packs/Day Years [...] Name Priority Date/Time Associated Diagnosis Comme nts US INJECTION LT Routine 02/23/2020 11:00 AM Chronic left Resul ts for this TENDON OR LIGAMENT CDT shoulder pain procedur e are in the results section. documented in this encounter Results US Injection Lt Tendon or Ligament (02/23/2020 11:00 AM CDT) Anatomical Region Laterality Modality Ultrasound Specimen (Source) Anatomical Collection Method Collection Time Re ceived Time Location / / Volume Laterality 02/23/2020 10:38 AM CDT Impressions 02/23/2020 11:03 AM CDT PROCEDURE: Calcific deposit noted over t he distal subscapularis tendon. The risks, benefits, and alternatives were discusse d and the patient granted informed written and verbal consent. ??A final pause was performed to verify site of injection and patient identification. ??1% lidocaine w as utilized for local anesthesia. ??Using sterile technique and ultrasound guidanc e a 25-gauge needle was advanced into the left shoulder biceps tendon sheath. ??Ne edle tip position within the left shoulder biceps tendon sheath was confirmed with ultrasound and permanent images were stored in PACS. Approximately 2 mL Lidocaine an d 1 mL Depo-Medrol (40 mg/mL) administered into the left shoulder biceps tendon she ath without complication. ??The patient's preprocedure pain score was 3/10, immedi ate post procedure pain score 3/10. Procedure Note Jayesh Tipton MD - 02/23/2020 IMPRESSION PROCEDURE: Calcific deposit noted over t he distal subscapularis tendon. The risks, benefits, and alternatives were discussed and the patient granted informed written and verbal consent. A final pause was performed to verify site of injection and patient identification. 1% lidocaine was utilized for local anesthesia. Using sterile technique and ultrasound guidance a 25-gauge needle was advanced into the left shoulder biceps tendon sheath. Needle tip position withi n the left shoulder biceps tendon sheath was confirmed with ultrasound and permanent images were stored in PACS. Approximately 2 mL Lidocaine and 1 mL Depo-Medrol (40 mg/mL) administered into the left shoulder radha ps tendon sheath without complication. The patient's preprocedure pain score was 3/10, immediate post procedure pain score 3/10. Terrell Mccarthy MD [facility] documented in this encounter Visit Diagnoses Diagnosis Chronic left shoulder pain Pain in joint, shoulder region documented in this encounter Administered Medications Inactive Administered Medications - up to 3 most recent administrations Medication Order MAR Action Action Date Dose Rate Site methylPREDNISolone acetate Given 02/23/2020 11:15 AM 40 mg Other (DEPO-medrol) injection 40 mg CDT 40 mg, Intramuscular, ONCE, On Fri02/23/20 at 1115, For 1 dose, Do not give in deltoid muscle. documented in this encounter Care Teams Inter Com Servicer Relationship Specialty Start Date End Date Britney Jarrett MD PCP - General 04/04/[address] [place] [address] documented as of this encounter
--- OUTSIDE RECORDS SUMMARY | 2022-04-23 15:33 | XMS_ITS | Encounter Summary ---
:1970 Author Organization [facility] Address [address] [place] [address] Care Team Providers Name Role Phone Britney Jarrett MD Primary Care Provider Encounter Details Date Type Department Care Team Description 03/08/2020 Notes/Orders [place] [address] Family Roz Diehl Ph aryngitis, unspecified etiology; Medicine [place], RN Chest pressure; [address] Fatigue, unspecified type; [place], [place] Headache, unsp ecified headache type [phone] Social History Tobacco Use Types Packs/Day Years [...] Name Priority Date/Time Associated Diagnosis Comme nts 2019 NOVEL Routine 03/08/2020 10:58 Pharyngitis, Results for this CORONAVIRUS AM CDT unspecified etio logy procedure are in Chest pressure the results Fatigue, unspecified section . type Headache, unspecified headache type documented in this encounter Results 2019 Novel Coronavirus (COVID-19) (03/08/2020 10:58 AM CDT) Patholo gist Method Time Signature SARS Cov-2 Not Provided 03/11/2020 [facility] Source 12:28 AM CDT LABORATORIES Comment: Specimen source was not provided. ??Plea se refer to the [facility] Test Directory for validated specimen source information: [email or web address]/test ing. ??Interpret results with caution. SARS-CoV-2 by PCR Not Detected 03/11/2020 12:28 AM CDT [facility] Comment: INTERPRETIVE INFORMATION: SARS-CoV-2 (CO VID-19) by SANDRA This test should be ordered for the dete ction of the 2019 novel coronavirus SARS-CoV-2 in individuals wh o meet SARS-CoV-2 clinical and/or epidemiological criteria. The Coronavirus SARS-CoV-2 (COVID-19) by nucleic acid amplification test is for in vitro diagn ostic use under the FDA Emergency Use Authorization (EUA) for US laboratories certified under CLIA to perform high complexity te sts. This test has not been FDA cleared or approved. In complia nce with this authorization, please visit [email or web address]/infectious-disea se/coronavirus for more information and to access the applicable information sheets. If the result is Not Detected, this does not rule out the presence of PCR inhibitors in the patient specime n or assay specific nucleic acid in concentrations below the level of detection by the assay. Performed by [facility], [address] [place] [address] [email or web address], Evangelist Mcfadden MD, Lab. Director Specimen Anatomical Collection Method Collection Time Receive d Time (Source) Location / / Volume Laterality Swab (Source Non-blood 03/08/2020 10:58 03/08/2020 8:25 Required) Collection / AM CDT PM CDT Unknown Asaf Diop PA-C LAB_1 Performing Organization Address City/State/ZIP Code Phon e Number [facility] [address] [place] [address] [phone] documented in this encounter Visit Diagnoses Diagnosis Pharyngitis, unspecified etiology Chest pressure Other chest pain Fatigue, unspecified type Headache, unspecified headache type documented in this encounter Additional Health Concerns Infection Onset Date Last Indicated Resolved Time R/O COVID19 03/08/2020 03/08/2020 03/11/2020 1:28 AM CDT documented as of this encounter Care Teams Laboratory Associate Relationship Specialty Start Date End Date Britney Jarrett MD PCP - General 04/04/[address] [place] [address] documented as of this encounter
--- OUTSIDE RECORDS SUMMARY | 2022-04-23 15:33 | XMS_ITS | Encounter Summary ---
:1970 Author Organization [facility] Address [address], [place] [address] Care Team Providers Name Role Phone Britney Jarrett MD Primary Care Provider Reason for Visit Procedure/Equipment (Routine) - Incomplete Specialty Diagnoses / Procedures Referred By Contact Refer red To Contact Procedures Provider, Foreign Images Foreign Image(S) XR Shoulder [address] [place] [address] Referral ID Status Reason Start Date Expiration Date Visits V isits Requested Authorized [id number] Incomplete 05/09/2018 08/08/2019 1 1 Encounter Details Date Type Department Care Team Description 05/09/2018 Imaging Radiology PACS Provider, Foreign Images [address] [facility] [address] [place] [address] [place] [address] Social History Tobacco Use Types Packs/Day Years [...] Name Priority Date/Time Associated Diagnosis Comme nts FOREIGN IMAGE(S) XR Routine 05/09/2018 1:34 PM Re sults for this SHOULDER LT CDT procedure are i n the results section. documented in this encounter Results Foreign Image(S) XR Shoulder Lt (05/09/2018 1:34 PM CDT) Specimen (Source) Anatomical Location Collection Method / Collectio n Time Received Time / Laterality Volume Narrative PN POCT - 05/09/2018 1:34 PM CDT These outside images have been uploaded into PACS. If the results were provided, they will be located in the pa brigido's chart under the Media or Imaging tab. Foreign Images Provider RAD NON-REPORTABLES Performing Organization Address City/State/ZIP Code Phon e Number POCT PN POCT documented in this encounter Visit Diagnoses Not on filedocumented in this encounter Care Teams Solvent Recoverer Relationship Specialty Start Date End Date Britney Jarrett MD PCP - General 04/04/[address] [place] [address] documented as of this encounter
--- OUTSIDE RECORDS SUMMARY | 2022-04-23 15:33 | XMS_ITS | Encounter Summary ---
:1970 Author Organization [facility] Address [address] [address] Care Team Providers Name Role Phone Britney Jarrett MD Primary Care Provider Reason for Visit Reason Comments CONSULT Arthritis Encounter Details Date Type Department Care Team Description 04/24/2018 Initial Consult [place] Osteoarthri tis of multiple joints, unspecified osteoarthritis type (Primary Dx); Rheumatology MD Dao Degenerative spinal arthritis [address] [id number] [phone] Social History Tobacco Use Types Packs/Day Years [...] Sign Reading Time Taken Comments Blood Pressure 124/85 04/24/2018 2:48 PM CDT Pulse 83 04/24/2018 2:48 PM CDT Temperature - - Respiratory Rate - - Oxygen Saturation - - Inhaled Oxygen Concentration - - Weight - - Height - - Body Mass Index - - documented in this encounter Progress Notes Dao Ron MD - 04/24/2018 1:30 PM CDT Subjective: I was requested by JEVON Barrett to evaluate the patient for arthritis. History of present illness: A 47-year-old female who came in here for evaluation of arthritis. She has decided to have an evaluation with a color artist for the 1st time to help rule out rheumatoid arthritis and anything else that she could possibly miss, and possible fibromyalgia. She is known to have significant osteoarthritis and degenerative arthritis for several years. 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 However, she did not recall of having had an obvious injury. She was also told to have calcific shoudler tendinitis clinically and radio-graphically requiring left shoulder surgery, history of torn meniscus and osteoarthritis of the left knee on the MRI, and significant degenerative arthritis over her cervical spines and lower back. She underwent C6-C7 fusion 8 years ago and L5-S1 surgical fusion when she was in high school. Overall, her symptoms were under good control with all things considered until approximately 3 yearsago when she started noticing more pain over her mid lower back. She decided to have a chiropractic treatment at that time. After the chiropractic maneuver, she developed worsening lower back pain and occasional distal radiation into the left leg. Her symptoms have been present ever since. The symptoms of low back and peripheral joints are present more or less all day long. They could potentially be worsened with more activities such as prolonged standing, bending. She has not been able to exercise like what she wanted to do in the past. If she pushes herself to do exercise, she will pay for it on the following day. She tries several medications including acetaminophen, glwd-vpw-[id number] anti- inflammatory medication, cortisone injection, massage therapy, chiropractor, physical therapy, inversion table. They are temporarily helpful but not adequately. She went to [facility] to see a spinal surgeon who ordered several MRIs and told her that she has an incurable and irreversible arthritis, with lower back spondylolisthesis. Additional surgery was not offered. She also was evaluated at pain clinic at [facility]. She has been certified for medical marijuana use but has not started it. She was also suspected by her primary care provider to have a possible fibromyalgia. She was tried on Cymbalta but could not tolerate it. Gabapentin was not much helpful. She has been prescribed Wegfcs18 mg capsule to try but has not started it yet. She has had chronic insomnia and attributes it to joint aching and pain. She also has intermittent muscle spasm and uses cyclobenzaprine as needed which seems to be helpful. It also helps her maintain sleeping. She has not tried taking this medication on the regular basis. She usually goes to bed about 10:50 PM but does not fall asleep until 1 am. 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 She has been frustrated and has exhausted lots of options including surgeries. She would like to know whether this could be rheumatoid arthritis, what type of exercises she should do, whether that she also has fibromyalgia and what other treatment she can try. If possible, she would like to use as least medication as possible. She reported no unusual skin rashes to suggest psoriasis, cutaneous manifestation of systemic lupus/dermatomyositis or scleroderma syndrome, history of unexplained pericardial/pleural effusion, Raynaud, tightening of the skin, history of unexplained nephritis/proteinuria, jaundice/hepatitis, previous blood transfusion, bleeding tendency, peptic ulcer disease/GI bleeding, thrombotic event, is complicated with frequent miscarriages/congenital heart block/ lupus or toxic the pregnancyor complications associated with antiphospholipid syndrome. Her mother and maternal grandmother both have osteoarthritis. Paternal grandfather had osteoarthritis. A sister of her requires knee arthroplasty for knee arthritis. A nephew has ichthyosis. There is no obvious family history of psoriasis, psoriatic arthritis, iritis/uveitis, spondylitis/spondyloarthropathy, inflammatory bowel disease, rheumatoid arthritis, systemic lupus, polymyositis/dermatomyositis, Sjogren's syndrome, scleroderma syndrome, mixed connective tissue disease or crystal-induced arthritis. A complete review of the systems is otherwise unremarkable except for subjective weakness of her left upper extremity due to shoulder pain, occasional tingling of her feet on the left side, depression due to chronic pain. Past Medical History: Calcific tendinitis left shoulder. Discoid meniscus of knee. Chondrocalcinosis. Medial epicondylitis available. History of cervical spine surgery. Herniated disc. Seasonal allergies. Status post lumbar spinal fusion 1984. Status post breast implants. History of tonsillectomy. Status post carpal tunnel surgery. History of cervical spinal fusion. History of endometrial ablation. History of left shoulder surgery. 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 Nonsmoker. Drinks lightly twice a month. with 2 children. Current medications: Please see the most updated medication lists in the EMR. These are reviewed. Adverse drug reactions: No known adverse drug reaction. Physical exams: BP 124/85 (BP Location: Left Arm, BP Cuff Size: Adult Regular/Long) Pulse 83 General appearance: A middle-aged female who was not in acute physical distress. Skin: No rash, tophus, nodules, open-wound ulcers, Raynaud changes, telangiectasia, sclerodermatous and dermatomyositis skin changes, psoriasis, psoriatic nail or anything suggesting vasculitis, erythema nodosum. Normal nailfold capillaries. HEENT: No psoriasis on the scalp. No conjunctivitis, scleritis or active uveitis or synaechia. Normal extra ocular movements. No sinus tenderness. No malar rash, discoid rash, oral or nasal mucosal ulcers. No nasal septal perforation. No thyromegaly. Respiratory: Normal respiratory effort. Lungs are clear with good breath sounds. Heart: RR without audible murmurs, rubs, or gallops. Musculoskeletal exams: All 4 extremities were examined. Left-sided anterior surgical scar and lower back surgical scars. Osteoarthritic changes at various degrees over her finger knuckle joints, more prominent over the DIP and PIP joints, less prominent over thumb IP and 1st CMC joints. Similar osteoarthritic changes over her 1st MTP joints. Left bunionette. Patellar crepitus without signs of inflammation or effusion. Low back surgical scars as described above. No tenderness, obvious kyphoscoliosis of the spine so palpable muscle spasm. Negative straight leg raising test. Normal gait, normal musclepower and tone. She has 14/18 fibromyalgia tender spots. Laboratory exams: On 11/02/2015, ESR 2. CRP less than 0.5. On 11/18/2017, x-ray of the right shoulder demonstrate a status post resection of calcium and postsurgical changes proximal humerus. Otherwise normal shoulder. On 03/17/2017, x-ray of the left shoulder demonstrated no acute fracture. Glenohumeral joint is located. No proximal migration of the humeral head noted. No joint space narrowing noted in the glenohumeral joint. No joint space noted is joint. Calcium deposits noted in the rotator cuff consistent with calcific tendinitis. On 07/29/2016, MRI of the left knee demonstrated: 1. Mild strain in the musculotendinous portion of the popliteus and adjacent posterior lateral jointcapsule. 2. No other evidence of significant ligamentous or tendinous injury. 3. Mild to moderate chondromalacia in the patellofemoral and medial compartments. 4. Small tears in the medial and lateral menisci as described above. On 06/18/2014, MRI of the right knee demonstrated: 1. Lower pole patellar full-thickness lateral chondromalacia and mild to moderate medial chondral thinning and fissuring. Chondral surface fibrillation otherwise. Adjacent Hoffa fat pad T2 signal with enlargement of the small cyst, suggesting lateral fat pad impingement. No evidence of patella jose guadalupe or patellar subluxation. 2. No other internal derangement identified. Outside records from [facility]: On 09/25/2017, white blood cells 5.1, hemoglobin 13.4, platelet count 206. Normal serum electrolytes.Normal ionized calcium. Glucose 90. Negative blood test for the Babesia, anaplasma, and Ehrlichia. Assessment and plans: 1. Osteoarthritis/degenerative arthritis of both peripheral and axial joints. 2. No clinical evidence of autoimmune inflammatory arthritis including rheumatoid arthritis. 3. Concurrent secondary fibromyalgia. Pain is rated as 6.5. RAPID 3 score is 14.7. I had a long discussion with the patient. It has seemed to me that osteoarthritis has developed in this patient at a relatively early age. Although this is a not uncommon, it is not impossible and thisseems to run in her family and sibling members. 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 In addition, she also has significant centralized component of pain due to poor sleep, which is partly blamed by her musculoskeletal joint symptoms. The centralized component of pain has caused heightened nerve sensitivity causing secondary fibromyalgia. I assured her today that I do not see a clinical evidence of autoimmune inflammatory arthritis including rheumatoid arthritis or an autoimmune inflammatory arthritis. She has no clinical joint effusion, synovitis/inflammatory arthritis on examination. I would recommend the followin. Discussed with the patient about my clinical impression as above. I assured her clinically that she does not have clinical autoimmune inflammatory arthritis. 2. We discussed about management of osteoarthritis and concurrent presence of secondary fibromyalgia. There is no curative medical treatment available at this point. For osteoarthritis, there is no available disease modifying agent at this point. We discussed about general joint protection, avoiding injuries/trauma, low- impact exercises in the poor is preferable, topical treatment with heating/icing of cream containing salicylate/lidocaine gel, as needed acetaminophen up to 3000 mg a day and/nbra-ryy-pxptdki anti-inflammatory medication as needed. Intra-articularcortisone injection if medication is not adequate considering a surgical option after failing medication. If the symptoms are still not under good control, I suggested her to continue having a follow-up with pain clinic for symptomatic control. She actually has been certified to qualify for medical marijuana use. She asked about spinal stimulation. I told her that I have very limited experience with some of my patients with these procedures. The data from randomized control trial is lacking and the benefit varies. She can discuss this option with her provider in the pain clinic if this will be the option that she would like to explore. For her fibromyalgia, I suggested low-impact exercises and improving sleep. She has tried Cymbalta and gabapentin and they are either not tolerated or not effective. I asked her to start with regular use of cyclobenzaprine 10-40 mg before bedtime to adjust the dose to assure good sleep without unacceptable morning grogginess or side effects. If this is helpful, she will continue it. If this is not helpful, the use of Lyrica can also be added. The dose should be slowly titrated up by 50-75 mg every few days to the maximal tolerated dose per symptoms but not more than 100 mg 3 times a day. If this isstill not tolerated or not helpful enough, pain management through pain clinic will be the last resource. 3. I suggested her to have blood tests today for 25-hydroxy vitamin D, TSH, iron studies and serum calcium. I will correspond with her regarding the test results. Follow up in rheumatology there is an additional question. She will have a follow-up with her primary care provider and provider in the pain clinic with the above recommendation. Total time 60 minutes, 40 minutes counseling. CC: JEVON Barrett [address] [place] [address] documented in this encounter Plan of Treatment Not on filedocumented as of this encounter Results GLORIA - Ferritin (04/24/2018 3:02 PM CDT) athologist Signature Ferritin Serum 152 9 - 204 PN SOFT ng/mL Specimen Anatomical Collection Method Collection Time Receive d Time (Source) Location / / Volume Laterality 04/24/2018 3:02 PM 8 6:30 CDT PM CDT Narrative PN SOFT - 04/24/2018 7:25 PM CDT Performed at [address] [address] CLIA number [id number] Dao Ron MD LAB_1 Performing Organization Address [facility] Phon e Number PN SOFT [address] [place] [address] [phone] (ABNORMAL) Total Iron and Iron Binding Capacity (04/24/2018 3:02 PM CDT) athologist Signature Iron, Serum 53 50 - 170 PN SOFT ug/dL Transferrin 228 180 - 382 PN SOFT mg/dL Iron Binding 285 250 - 450 PN SOFT Capacity, ug/dL Calculated Iron Saturation 19 (L) 20 - 55 % PN SOFT Specimen Anatomical Collection Method Collection Time Receive d Time (Source) Location / / Volume Laterality 04/24/2018 3:02 PM 8 6:30 CDT PM CDT Narrative PN SOFT - 04/24/2018 7:51 PM CDT Performed at [address] [address] CLIA number [id number] Dao Ron MD LAB_1 Performing Organization Address [facility] Phon e Number PN SOFT [address] [place] [address] [phone] CA - Calcium (04/24/2018 3:02 PM CDT) athologist Signature Calcium 9.7 8.4 - 10.4 PN SOFT mg/dL Specimen Anatomical Collection Method Collection Time Receive d Time (Source) Location / / Volume Laterality 04/24/2018 3:02 PM 8 3:02 CDT PM CDT Narrative PN SOFT - 04/24/2018 3:26 PM CDT Performed at [facility], [address] [place] [address] CLIA number [id number] Dao Ron MD LAB_1 Performing Organization Address [facility] Phon e Number PN SOFT [address] [place] [address] TSH with Free T4 (if TSH Abnormal) (04/24/2018 3:02 PM CDT) athologist Signature Thyroid 0.80 0.30 - PN SOFT Stimulating 4.50 Hormone uIU/mL Specimen Anatomical Collection Method Collection Time Receive d Time (Source) Location / / Volume Laterality 04/24/2018 3:02 PM 8 6:30 CDT PM CDT Narrative PN SOFT - 04/24/2018 7:25 PM CDT Performed at [address] [address] CLIA number [id number] Dao Ron MD LAB_1 Performing Organization Address [facility] Phon e Number PN SOFT [address] [place] [address] VITD - Vitamin D (In house) (04/24/2018 3:02 PM CDT) athologist Signature Vitamin D 25 Oh 25 20 - 80 PN SOFT ng/mL Comment: Deficiency = <20 Adequate ??= 20-29 Preferred = 30-50 Uncertain safety = 51-80 High = >80 Specimen Anatomical Collection Method Collection Time Receive d Time (Source) Location / / Volume Laterality 04/24/2018 3:02 PM 8 6:23 CDT PM CDT Narrative PN SOFT - 04/24/2018 6:58 PM CDT Performed at [address] [address] CLIA number [id number] Dao Ron MD LAB_1 Performing Organization Address [facility] Phon e Number PN SOFT [address] [place] [address] [phone] documented in this encounter Visit Diagnoses Diagnosis Osteoarthritis of multiple joints, unspe cified osteoarthritis type - Primary Degenerative spinal arthritis ([facility]) Spondylosis of unspecified site without mention of myelopathy Osteoarthritis of multiple joints, unspe cified osteoarthritis type Degenerative spinal arthritis ([facility]) Spondylosis of unspecified site without mention of myelopathy documented in this encounter Care Teams Adhesion Tester Relationship Specialty Start Date End Date Britney Jarrett MD PCP - General 04/04/161999 [place] [address] documented as of this encounter
--- OUTSIDE RECORDS SUMMARY | 2022-04-23 15:33 | XMS_ITS | Encounter Summary ---
:1970 Author Organization [facility] Address [address] [place] [address] Care Team Providers Name Role Phone Britney Jarrett MD Primary Care Provider Reason for Referral (Routine) - Closed Specialty Diagnoses / Procedures Referred By Contact Refer red To Contact Diagnoses Calcific tendinitis of left shoulder Garrett Chairez MD Procedures Triamcinolone Acet Inj Nos: (per 10 mg) [address] [facility] [place], [place] [address] Referral ID Status Reason Start Date Expiration Date Visits Requ ested Visits Authorized [id number] Closed 07/10/2020 10/09/2021 1 1 S TUTOR Reason for Visit Reason Comments SHOULDER PAIN recheck left calficic tendin its Encounter Details Date Type Department Care Team Description 07/09/2020 Office Visit [facility] Garrett Chairez, Calcif ic tendinitis Urgent Care MD of left shoulder [address] [facility] (Primary Dx) [place], [place] [address] [place], [place] [phone] (Wo rk) Social History Tobacco Use Types [...] Pressure - - Pulse - - Temperature 36.8 ??C (98.2 ??F) 07/09/2020 10:24 AM MATHS TUTOR Respiratory Rate - - Oxygen Saturation - - Inhaled Oxygen Concentration - - Weight - - Height - - Body Mass Index - - documented in this encounter Patient Instructions Patient InstructionsArt Woo, ATC - 07/09/2020 10:[address] Garrett Chairez MD [facility], [place] [facility] Nurse Line: [phone] Please contact Orthopedic Urgent Care line for all requests and questions. Medication Requests: Prescriptions are not filled on Weekends or on Weekdays after 3:00PM For all medication refills: Request a refill using [employer] or contact your Pharmacy To schedule appointments: [phone] Paperwork Requests: FMLA or disability paperwork can be faxed to: [phone] Medical records: [phone] (option 4) [facility] Worker's Compensation Services E-mail Address: [email or web address] Diagnosis: Left shoulder calcific tendonitis and biceps tendonitis Plan: Toradol injection Follow-up with Dr. Mccarthy The left shoulder was injected with Kenalog-40 and lidocaine. Avoid Strenuous Activity for the remainder of the day and avoid activities that cause pain for one to two weeks following the injection. Signs and Symptoms to watch for: If you have any redness, warmth or increasing pain at the site of the injection or develop a fever, please call [phone] You've just had a steroid (cortisone) injection: Steroid injections are among the most frequently used treatments in orthopedics. Steroid injections are used for a wide range of conditions from arthritis, to bursitis, to tennis elbow, etc. The two most common side-effects of steroid shots called ???steroid flare??? and ???steroid flush. Steroid flare can cause an increase in symptoms in the first 24-48 hours after a steroid injection. This will usually subside within a few days, and is a cause from the additional fluid in your joint, and the trauma to the joint lining from the injection. This pain usually subsides quickly and can be aided with an ice pack and over the counter anti-inflammatory medication. Steroid flush is a flushing sensation and redness of their face. This reaction is more common in women, but can occur in men as well, and is seen into up to 15 percent of patients. This can begin within a few hours of the injection and may last for a few days. It is not dangerous, and will resolve itself. Diabetic patients also can have their blood sugar levels affected. Patients with diabetes should carefully monitor their blood sugar as steroid can cause a temporary rise in their levels. Patients taking insulin should be especially careful, checking their blood sugar often and adjusting the insulin doses, if necessary. Steroid injections can only be repeated every 3 or 4 months. For some conditions there may also be alimited total number of times it is safe to repeat an injection. RISKS: Infection ?? Whenever there is a break in the skin, like when a needle is used to administer steroid, there darren chance of infection this is very unlikely to happen, usually would occur days after the injection.Signs and symptoms to watch for: fever, streaking redness, pus, drainage, foul odor, localized redness that continues to get worse, come to the office if symptoms are recognized during business hours, or proceed to the emergency room if symptoms are recognized after office hours. Skin Pigment Changes ?? Patients should also be aware that steroid may cause skin around the injection site to lighten. This is not harmful or long lasting. Loss of Fatty Tissue ?? This is one reason we limit the number of steroid injections administered. High doses of steroid can have detrimental effects on some tissues in the body, though due to the dosage we use the risk isextremely rare. When injected into fatty tissue, steroid can lead to a problem called fat atrophy. Fat atrophy causes loss of fatty tissue, which can lead to dimpling of the skin or the thinning out offat. Skin will feel thin. Patients who get steroid injections in the heel to treat plantar fasciitismay find walking painful as fat that usually cushions their steps may thin out. Tendon Rupture ?? Steroid can also cause weakening of tendons. This is one reason to limit the number of steroid injections administered. S TUTOR documented in this encounter Progress Notes Garrett Chairez MD - 07/09/2020 10:20 AM CST Josie Booker [id number] 1970 [facility] Follow-Up 07/09/2020 History of Present Illness: Josie Booker is a 50 y.o. female who presents for follow-up regarding calcific tendinitis of the left shoulder. She was last evaluated for this problem on 12/28/[address] Terrell Mccarthy. At that time, Dr. Tejada recommended physical therapy after obtaining an injection. About 2 years ago, she was unable to lift her arm and was seen in the ER. She was given a Toradol injection which provided relief. She had an injection in February in her biceps for bicep tendinosis. Today, she states she is experiencing the same symptoms she did 2 years ago. Physical Exam: Temp 36.8 ??C (98.2 ??F) (Tympanic) General: The patient is alert. Neuro: Normal Cardiovascular: Normal capillary refill Left Shoulder: Very tender at the anterior shoulder, less so posteriorly. Very limited motion secondary to pain. Passively I can get her to full motion but is quite guarded. Good initial cuff strength but has weakness. Positive Speed's test and Araujo's. Neck: Some limitation to flexion and external rotation. Patient has had surgery there. Imaging: None indicated. Assessment: Diagnosis and Associated Orders ICD-10-CM 1. Calcific tendinitis of left shoulder M75.32 Biceps tenosynovitis Plan: Educated the patient regarding her condition and management. After a discussion recommended a subacromial injection to buy her some time. She also responded well to a Toradol injection. The patient verbalized understanding. Follow-up with Dr. Mccarthy. Procedure: Left Subacromial Cortisone Injection Risks, alternatives, and potential benefits were discussed, and the patient consents to proceed witha steroid injection. Using aseptic technique and a betadine prep, the patient underwent a left shoulder subacromial joint injection using a 22-gauge needle with 9mL 1% plain Lidocaine and 40 mg of triamcinolone. There were no complications with the procedure. Scribe Disclosure: I, Mehnaz Manley, am serving as a scribe to document services personally performed by Garrett Chairez MD at this visit, based upon the provider's statements to me. All documentation has been reviewed by the aforementioned provider prior to being entered into the official medical record. Portions of this medical record were completed by a scribe. UPON MY REVIEW AND AUTHENTICATION BY ELECTRONIC SIGNATURE, this confirms (a) I performed the applicable clinical services, and (b) the recordis accurate. Garrett Chairez MD S TUTOR documented in this encounter Plan of Treatment Not on filedocumented as of this encounter Visit Diagnoses Diagnosis Calcific tendinitis of left shoulder - P rimary Calcifying tendinitis of shoulder documented in this encounter Care Teams Sheet Metal Installer Relationship Specialty Start Date End Date Britney Jarrett MD PCP - General 04/04/161999 [place] [address] documented as of this encounter
--- OUTSIDE RECORDS SUMMARY | 2022-04-23 15:33 | XMS_ITS | Encounter Summary ---
:1970 Author Organization [employer] [facility] Address [address] [place] [address] Care Team Providers Name Role Phone Britney Jarrett MD Primary Care Provider Reason for Referral Procedure/Equipment (Routine) - Incomplete Specialty Diagnoses / Procedures Referred By Contact Refer red To Contact Diagnoses Chronic left shoulder pain Terrell Mccarthy MD Procedures US Injection Lt Tendon or Ligament [address] [facility] [address] [address] [place], [place] [address] Referral ID Status Reason Start Date Expiration Date Visits V isits Requested Authorized [id number] Incomplete 12/28/2019 03/28/2021 1 1 Procedure/Equipment (Routine) - Incomplete Specialty Diagnoses / Procedures Referred By Contact Refer red To Contact Diagnoses Chronic left shoulder pain Terrell Mccarthy MD Procedures XR Shoulder Lt 2+ Views [address] [place] [address] [address] [place], [place] [address] Referral ID Status Reason Start Date Expiration Date Visits V isits Requested Authorized [id number] Incomplete 12/28/2019 03/28/2021 1 1 Reason for Visit Reason Comments Follow-up Lt shoulder Encounter Details Date Type Department Care Team Description 12/28/2019 Office Visit [facility] Terrell Mccarthy, Substation Inspector [facility] shoulder CENTER MD pain (Primary Dx) [address] [facility] [address] [place] [address] [place] [address] [place] [phone] (Wo rk) Social History Tobacco Use Types [...] encounter Progress Notes Terrell Mccarthy MD - 12/28/2019 12:00 PM CDT NAME: RAHAT THOMASON MR#: [id number] CSN: [id number] AUTHENTICATING CLINICIAN: Terrell Mccarthy MD CONFIRM #: [id number] LOC: 711 CLINIC PROGRESS NOTE DATE OF VISIT: 12/28/2019 : 1970 CHIEF COMPLAINT: Left shoulder pain. HISTORY OF PRESENT ILLNESS: Ms. Thomason is a very pleasant 49-year-old woman who returns today for followup regarding her left shoulder. Of note, she has had a previous right shoulder distal clavicle excision, biceps tenodesis, glenohumeral debridement on October 02, 2017. She states that her right shoulder is doing very well; however, she is starting to have increasing symptoms in her left shoulder, which prompted her visit today. She states that she has pain primarily in the anterior aspect of the shoulder; however, she additionally has pain with any sort of lateral movements away from her body in that shoulder. She describes the pain as deep, achy, occasionally sharp, radiating to her deltoid insertion anteriorly down the front of her shoulder into her elbow. She denies any pain radiating distally. She does mention that shehas a history of prior cervical radiculopathy infusions that are being managed at a [facility]. Additionally, she has lumbar fusions. Additionally, they are being managed down at [facility] and is doing well. She states that the left shoulder pain has actually slightly improved since her spine surgeon started her on Arthrotec approximately 1 week ago; however, she does continue to have occasional symptoms. She mentions that she has no acute injury to the shoulder that she can remember; however, ithas been bothering her for quite some time. She has tried anti-inflammatory medications, as mentioned previously with Arthrotec helping some, as well as physical therapy; however, the physical therapy has not been consistent for her left shoulder. She has had physical therapy on her previously operated on shoulder and her back. Additionally, she states she had some sort of injection anteriorly into her left shoulder, which she states was into the biceps muscle belly itself. This provided little to no relief and she is curious in pursuing additional details and options. PHYSICAL EXAM: GENERAL: Alert and oriented x3. Appropriate mood and affect. No acute distress. EXTREMITIES: Left shoulder range of motion is forward elevation to about 120 degrees and limited by pain, lateral elevation to about 85 degrees, limited by exquisite pain, this is actively passively. She is additionally limited by pain with lateral elevation. Her external rotation with the arm in abduction is 80 degrees. Internal rotation is to the inferior border of the scapula. She has a negative lift-off, negative belly press, negative horn blower. She has 5/5 strength in her infraspinatus and supraspinatus tendons and these are quite painful when tested. She does have tenderness anteriorly in her biceps groove and additionally is demonstrated with a positive speed's, positive Chetek's that is improved with supination. She has no tenderness in her acromioclavicular joint. She does have tenderness laterally over the shoulder at the rotator cuff insertion. She is neurovascularly intact distally and has good palpable pulses. IMAGING STUDIES: X-rays of the left shoulder, 4 views, including AP, Grashey, scapular Y and axillary lateral were reviewed. These demonstrate some fluffy calcifications in the rotator cuff near the insertion, likely resources representative of calcific tendinosis as well as well-maintained joint spaces. She has no glenohumeraljoint space narrowing. No fractures, dislocations, or additional osseous lesions. ASSESSMENT: 1.Proximal biceps tendinitis. 2.Calcific tendinopathy of the rotator cuff. PLAN: We had a nice long discussion with Ms. Thomason regarding her left shoulder and that she has a diagnosis of a proximal biceps tendinitis and calcific tendinitis as well. We mentioned that we are encouraged by the improvement in her symptoms with her current regimen Arthrotec and would like her to continue with that. Additionally, we think she may benefit from an ultrasound-guided bicipital sheath injection as this is likely her primary pain generator. We will also recommend her with formal physical therapy for the left shoulder, as she has not done this, to begin approximately 1 week after her injection and she voiced understanding with the reasoning regarding this and that this may help with all of her above diagnoses of the calcific tendinitis and proximal biceps tendinopathy. We mentioned to her that this is more reliably going to improve some of the symptoms in her proximal biceps; however, the calcific tendinitis is a relatively unpredictable clinical entity and that we may have to wait andsee if she will require a similar surgery as she had on her right, which would be a potential proximal biceps tenodesis versus a tenotomy, which she actually mentioned that she would favor a tenotomy on the left side given her cervical issues and pain with prolonged sling use from her previous surgery. We think this is perfectly reasonable, so the final plan for her is going to be a proximal biceps injection and physical therapy. Follow up in 2-3 months p.r.n. I have personally examined this patient, and have reviewed the clinical presentation and progress note, including the pertinent radiographs with the fellow. I agree with the treatment plan as outlined.The plan was formulated with the fellow on the day of the dictation and personally edited by me where appropriate. I personally discussed the treatment plan with the patient. Dictated by: Zeus Blanchard MD JPB:WILDER C: R:12/28/19 22:36 CONFIRM#:[id number] documented in this encounter Plan of Treatment Not on filedocumented as of this encounter Results US Injection Lt Tendon [...] procedure pain score 3/10. Terrell Mccarthy MD RAD US XR Shoulder Lt 2+ Views (12/28/2019 3:15 PM CDT) Anatomical Region Laterality Modality Upper Extremity, Shoulder Digital Radiog yazmin Specimen (Source) Anatomical Location Collection Method / Collectio n Time Received Time / Laterality Volume Narrative 01/09/2020 12:11 PM CDT Lleft shoulder, 4 views, including AP, Grashey, scapular Y and axillary lateral were reviewed. ??These demonstra te some fluffy calcifications in the rotator cuff near the insertion, lik herbert resources representative of calcific tendinosis as well as well-maintained criselda int spaces. ??She has no glenohumeral joint space narrowing. ??No fractures, dislocations, or additional osseous lesions. Terrell Mccarthy MD RAD GD documented in this encounter Visit Diagnoses Diagnosis Chronic left shoulder pain - Primary Pain in joint, shoulder region Chronic left shoulder pain Pain in joint, shoulder region Chronic left shoulder pain Pain in joint, shoulder region documented in this encounter Care Teams Wood Milling Machine Hand Relationship Specialty Start Date End Date Britney Jarrett MD PCP - General 04/04/161999 [place] [address] documented as of this encounter
--- OUTSIDE RECORDS SUMMARY | 2022-04-23 15:33 | XMS_ITS | Encounter Summary ---
:1970 Author Organization [facility] Address [address] [place] [address] Care Team Providers Name Role Phone Britney Jarrett MD Primary Care Provider Reason for Referral (Routine) - Closed Specialty Diagnoses / Procedures Referred By Contact Refer red To Contact Diagnoses Calcific tendinitis of left shoulder Jignesh Flores DO Procedures Triamcinolone Acet Inj Nos: (per 10 mg) [address] [facility] [place], [place] [address] Referral ID Status Reason Start Date Expiration Date Visits Requ ested Visits Authorized [id number] Closed 05/10/2018 08/09/2019 1 1 Reason for Visit Reason Comments SHOULDER PAIN left / ongoing Encounter Details Date Type Department Care Team Description 05/09/2018 Office Visit [facility] Jignesh Flores DO Calcific tendinitis Urgent Care [address] of left shoulder [address] [place], [place] (Primary Dx) [place], [place] [phone] (Wo rk) Social History Tobacco Use Types [...] Pressure - - Pulse - - Temperature 36.5 ??C (97.7 ??F) 05/09/2018 12:52 PM CDT Respiratory Rate - - Oxygen Saturation - - Inhaled Oxygen Concentration - - Weight - - Height - - Body Mass Index - - documented in this encounter Patient Instructions Patient InstructionsMary Santoyo RN - 05/09/2018 12:[address] Augusto Flores DO, [facility] Primary Care Sports Medicine Medication Requests: Prescriptions are not filled on Weekends or on Weekdays after 3:00PM For all medication refills: Request a refill using MyChart or contact your Pharmacy Acute Injury Clinic Nurse Line: Please contact Acute Injury Clinic Nurse line for all medical requests and questions at [phone] MRI Scheduling: To schedule an MRI at [facility] please call [phone] Paperwork Requests: Questions regarding FMLA or disability paperwork please call [phone] Phone lines are answered 8AM to 5PM Friday - Friday Workers??? Compensation: Please contact our department for any Work Comp concerns at Email: [email or web address] Shoulder injection for calcific tendonitis Follow up with Dr. Mccarthy as planned The left shoulder was injected with Kenalog-40 and marcaine. Avoid Strenuous Activity for the remainder of the day and avoid activities that cause pain for one to two weeks following the injection. Signs and Symptoms to watch for: If you have any redness, warmth or increasing pain at the site of the injection or develop a fever, please call [phone] documented in this encounter Progress Notes Jignesh Flores DO - 05/09/2018 12:40 PM CDT [facility] [place] [facility] 05/09/2018 Chief Complaint: Left shoulder pain History of Present Illness: Josie Booker is a 47 y.o. female who presents for evaluation of left shoulder pain. The patient reports she has na ongoing history of bilateral shoulder pain which she has been seeing Dr. Mccarthy for. She had a right shoulder surgery done with Dr. Mccarthy last month and since then everything has beengoing well in the right shoulder. She reports the left shoulder pain, localized to the triceps and radiating down into the arm, has grown progressively worse in the last couple of weeks. She feels thispain is similar to the right shoulder pain however it onset quicker and seems to be more severe. Last night, on 05/08/2018, she went to the ER as her pain was excruciating with any arm movement. Theydid x-rays and an ultrasound and administered a shot of Tramadol. She is here today requesting an injection to get her through until her appointment scheduled with Dr. Mccarthy on 06/02/2018 as she is travelling out of state on 05[place]20/2018 and her pain is interfering with all daily activities. Review of Systems: Positive for numbness and tingling and arthritis. Negative for fevers, chills, or sweats. Negative for cardiovascular, pulmonary, gastrointestinal, neurologic, renal, or endocrine issues. 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 Enjoys reading, movies, and exercising. Family History: Joint problems Bone problems Heart problems Diabetes Cancer Physical Exam: Temp 36.5 ??C (97.7 ??F) (Tympanic) General: Normal Gait Skin: Skin is warm and dry without lesions or rashes. Neuro: Normal. Cardiovascular: Normal capillary refill. Left Shoulder: Non-tender over the sternoclavicular joint, acromioclavicular joint, and rotator cuff. Tender over the anterior capsule and proximal biceps tendon. Active range of motion unable due to agurding. Rotator cuff strength testing: not assessed. Right Shoulder: Exam normal. Imaging: Radiographs of the left shoulder - 3 views (05/08/18): No acute fracture or dislocation. Foreign images. I independently reviewed and interpreted the imaging studies above; the results were discussed with the patient during today's visit. Assessment: Diagnosis and Associated Orders ICD-10-CM 1. Calcific tendinitis of left shoulder M75.32 Plan: Diagnosis and treatment options were discussed with the patient. After a discussion, recommended a left shoulder subacromial cortisone injection. The patient verbalized understanding and wished to proceed. The patient will follow- up with Dr. Mccarthy for further care. Procedure: Left Shoulder Cortisone Injection Therapeutic cortisone injection was discussed with patient. They elected to proceed after risks, alternatives, and potential benefits were discussed. 40mg triamcinolone and 9cc Marcaine injected into the left subacromial shoulder using sterile technique. The patient tolerated the procedure well without any complications. Scribe Disclosure: Mary Kay Burgos, am serving as a scribe to document services personally performed by Jignesh Flores DO at this visit, based upon the provider's statements to me. All documentation has been reviewed by the aforementioned provider prior to being entered into the official medical record. Portions of this medical record were completed by a scribe. UPON MY REVIEW AND AUTHENTICATION BY ELECTRONIC SIGNATURE, this confirms (a) I performed the applicable clinical services, and (b) the recordis accurate. Jignesh Flores DO documented in this encounter Plan of Treatment Not on filedocumented as of this encounter Visit Diagnoses Diagnosis Calcific tendinitis of left shoulder - P rimary Calcifying tendinitis of shoulder documented in this encounter Care Teams Civil Engineering Professor Relationship Specialty Start Date End Date Britney Jarrett MD PCP - General 04/04/161999 [place] [address] documented as of this encounter
--- OUTSIDE RECORDS SUMMARY | 2022-04-23 15:33 | XMS_ITS | Encounter Summary ---
:1970 Author Organization [facility] Address [address] [address] Care Team Providers Name Role Phone Britney Jarrett MD Primary Care Provider Reason for Visit Reason Onset Date Comments Pharyngitis way cough occas chest heaviness no chest pain sinus juan facial pressure no fever fa tigue not sleeping well x5d Video Visit 03/08/2020 Encounter Details Date Type Department Care Team Description 03/08/2020 Telemedicine [place] [address] Asaf Diop J, Pharyngi tis, unspecified etiology (Primary Dx); Family Medicine PA-C Chest pressure; [address] [address] [facility] Fatigue, unspecified type; [place], [place] Headache, uns pecified headache type; [id number] Suspected COVID-19 virus infection [phone] Social History Tobacco Use Types Packs/Day Years [...] - Inhaled Oxygen Concentration - - Weight 62.1 kg (137 lb) 03/08/2020 9:34 AM CDT per pt Height - - Body Mass Index 26.76 03/22/2019 8:38 AM CDT documented in this encounter Progress Notes Asaf Diop PA-C - 03/08/2020 10:00 AM CDT Subjective: Today's visit with Josie was conducted as a scheduled video visit. Chief Complaint Patient presents with ??? Pharyngitis way cough occas chest heaviness no chest pain sinus juan facial pressure no fever fatigue not sleeping well x5d ??? Video Visit History of present illness: Josie Booker is a 49 y.o. female via video visit with a 5 day history of sore throat, headache, cough, and body aches. Has mild congestion. Has some chest pressure/heaviness but no overt shortness of breath or chest pain. No abdominal pain, nausea or vomiting. Did have one day where she had a metallic taste in mouth but that has resolved. No loss of smell. No obvious exposure to anyone with COVID but at a couple of showers this past week where people did not where masks. No underlying health issues. Review of Systems: Constitutional: No fevers, but body aches and fatigue Eyes: No eye pain, redness, drainage ENT: Positive for sore throat, mild congested. No current loss of taste/smell CHEST: Positive for cough, and chest pressure HEART: No chest pain, no edema. ABD: No abdominal pain, nausea, vomiting or diarrhea. M/S: No back pain, joint pain or swelling, no muscle pain. NEURO: Positive for headaches. No dizziness, weakness SKIN: No rashes or itching, no worrisome skin lesions. PSYCH: No issues with anxiety or depression. Medications: Reviewed and reconciled in medical record at visit. Allergies: Reviewed and updated in medical record at visit. Objective: Wt 137 lb (62.1 kg) Comment: per pt BMI 26.76 kg/m?? GEN: Alert, oriented, not acutely distressed.Does not appear acutely ill. EYES: EOMI, no redness or drainage. ENT: Appears mildly congested NECK: Normal ROM CHEST: Normal effort ABD: No apparent discomfort SKIN: No noted rashes M/S: No noted joint swelling or redness. NEURO: CN 2-12 appear grossly intact. Moving all extremities PSYCH: Alert and oriented. Normal affect. Assessment/Plan: 1. Pharyngitis, unspecified etiology 2. Chest pressure 3. Fatigue, unspecified type 4. Headache, unspecified headache type 5. Suspected COVID-19 virus infection Plan: Discussed signs and symptoms of worsening condition as well as indications for more acute follow up/ER follow up. Given the followin). Orders placed to set up drive through COVID and Strep testing. Will follow up and treat accordingly. 2). Continue symptomatic treatment with fluids, rest, Ibuprofen, and Tylenol. 3). Close follow-up with worsening symptoms, increased breathing difficulty, feeling sicker, or withany concerns, or if not improving. Clinician located at clinic. Patient located at home Billing based on: Complexity Asaf Diop PA-C documented in this encounter Plan of Treatment Not on filedocumented as of this encounter Procedures Procedure Name Priority Date/Time Associated Diagnosis Comme nts STREP GROUP A, Waiting 03/08/2020 10:58 AM Pharyngitis, Result s for this MOLECULAR DETECTION CDT unspecified etiology procedure are in Headache, the results unspecified headache section . type documented in this encounter Results STREP GROUP A, Molecular Detection (03/08/2020 10:58 AM CDT) [facility] Group A Strep Not Detected Not Detected 03/08/2020 [facility] 5:09 PM CDT LAB Specimen Anatomical Collection Method Collection Time Receive d Time (Source) Location / / Volume Laterality Swab (Source THROAT SWAB / Non-blood 03/08/2020 10:58 03/08/2020 2:37 Required) Unknown Collection / AM CDT PM CDT Unknown Asaf Diop PA-C LAB_1 Performing Organization Address City/State/ZIP Code Phon e Number [facility] [address] [place] [address] [phone] 2018 Novel Coronavirus (COVID-19) (03/08/2020 10:58 AM CDT) [facility] Signature SARS Cov-2 Not Provided 03/11/2020 [facility] 12:28 AM CDT LABORATORIES Comment: Specimen source was not provided. ??Plea se refer to the [facility] Laboratory Test Directory for validated specimen source information: [email or web address].[facility]/test ing. ??Interpret results with caution. SARS-CoV-2 by PCR Not Detected 03/11/2020 12:28 AM CDT [facility]ORATOR[facility] Comment: INTERPRETIVE INFORMATION: SARS-CoV-2 (CO VID-19) by [...] complia nce with this authorization, please visit [email or web address]/infectious-disea [email or web address] for more information and to access the applicable information sheets. If the result is Not Detected, this does not rule out the presence of PCR inhibitors in the patient specime n or assay specific nucleic acid in concentrations below the level of detection by the assay. Performed by [facility], [address] [place] [address] [email or web address], Evangelist Mcfadden MD, Lab. Director Specimen Anatomical Collection Method Collection Time Receive d Time (Source) Location / / Volume Laterality Swab (Source Non-blood 03/08/2020 10:58 03/08/2020 8:25 Required) Collection / AM CDT PM CDT Unknown Asaf Diop PA-C LAB_1 Performing Organization Address City/State/ZIP Code Phon e Number [facility] [address] [place], [place] [address] documented in this encounter Visit Diagnoses Diagnosis Pharyngitis, unspecified etiology - Prim christine Chest pressure Other chest pain Fatigue, unspecified type Headache, unspecified headache type Suspected COVID-19 virus infection documented in this encounter Care Teams Phy Therapist Relationship Specialty Start Date End Date Britney Jarrett MD PCP - General 04/04/[address] [place] [address] documented as of this encounter
--- OUTSIDE RECORDS SUMMARY | 2022-04-23 15:33 | XMS_ITS | Encounter Summary ---
:1970 Author Organization [facility] Address [address] [place] [address] Care Team Providers Name Role Phone Britney Jarrett MD Primary Care Provider Reason for Visit Procedure/Equipment (Routine) - Incomplete Specialty Diagnoses / Procedures Referred By Contact Refer red To Contact Diagnoses Arthralgia of right ankle Cristal Calero MD Procedures XR Ankle Rt 3 Views [address] [facility] [address] [place] [address] Referral ID Status Reason Start Date Expiration Date Visits V isits Requested Authorized [id number] Incomplete 03/27/2020 06/26/2021 1 1 Encounter Details Date Type Department Care Team Description 03/27/2020 Ancillary [facility] Cristal Calero Arthralgia of right Procedure [address] [facility] [place] [address] [phone] Social History Tobacco Use Types Packs/Day Years [...] Priority Date/Time Associated Diagnosis Comme nts XR ANKLE RT 3 VIEWS Routine 03/27/2020 12:20 PM Arthralgia of right Results for this CDT ankle procedure are i n the results section. documented in this encounter Results XR Ankle Rt 3 Views (03/27/2020 12:20 PM CDT) Anatomical Region Laterality Modality Lower Extremity, Ankle, Foot & Ankle Dig ital Radiography Specimen (Source) Anatomical Collection Method Collection Time Re ceived Time Location / / Volume Laterality 03/27/2020 12:09 PM CDT Impressions 03/27/2020 12:32 PM CDT COMPARISON: ??None. FINDINGS: ??No definite fracture or disl ocation is identified. ??Ankle mortise appears intact. Plantar calcaneal enthesophyte. Procedure Note Richar Lockwood MD - 03/27/2020Formatti ng of this note might be different from the original. IMPRESSION COMPARISON: None. FINDINGS: No definite fracture or disloc ation is identified. Ankle mortise appears intact. Plantar calcaneal enthesophyte. Cristal Calero MD RAD GD documented in this encounter Visit Diagnoses Diagnosis Arthralgia of right ankle Pain in joint, ankle and foot documented in this encounter Care Teams Student Support Services Director Relationship Specialty Start Date End Date Britney Jarrett MD PCP - General 04/04/[address] [place] [address] documented as of this encounter
--- OUTSIDE RECORDS SUMMARY | 2022-04-23 15:33 | XMS_ITS | Encounter Summary ---
:1970 Author Organization [facility] Address [address] [place] [address] Care Team Providers Name Role Phone Britney Jarrett MD Primary Care Provider Reason for Visit Procedure/Equipment (Routine) - Incomplete Specialty Diagnoses / Procedures Referred By Contact Refer red To Contact Diagnoses Chronic left shoulder pain Terrell Mccarthy MD Procedures XR Shoulder Lt 2+ Views [address] [facility] [address] [place] [address] Referral ID Status Reason Start Date Expiration Date Visits V isits Requested Authorized [id number] Incomplete 12/28/2019 03/28/2021 1 1 Encounter Details Date Type Department Care Team Description 12/28/2019 Ancillary [facility] Terrell Mccarthy Chronic left Procedure [address] [facility] [place] [address] [phone] Social History Tobacco Use Types Packs/Day Years [...] Priority Date/Time Associated Diagnosis Comme nts XR SHOULDER LT 2+ Routine 12/28/2019 3:15 PM Chronic left Resu lts for this VIEWS CDT shoulder pain procedure are in the results section. 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 ??She has no glenohumeral joint space narrowing. ??No fractures, dislocations, or additional osseous lesions. Terrell Mccarthy MD RAD GD documented in this encounter Visit Diagnoses Diagnosis Chronic left shoulder pain Pain in joint, shoulder region documented in this encounter Care Teams Registered Radiographer Relationship Specialty Start Date End Date Britney Jarrett MD PCP - General 04/04/[address] [place] [address] documented as of this encounter
--- OUTSIDE RECORDS SUMMARY | 2022-04-23 15:33 | XMS_ITS | Clinical Summary ---
:1970 Author Organization [facility] Address [address] [place] [address] Care Team Providers Name Role Phone Britney Jarrett MD Primary Care Provider Source Comments You are receiving this document as you are listed as the primary care provider,follow-up provider, or the patient has been referred to you for consultation.This is in compliance with the Medicare and Medicaid EHR Incentive Program,which states Providers who transition their patient to another setting of careor provider of care or refers their patient to another provider of care shouldprovide summarycare record for each transition of care or referral. [facility] Allergies No known active allergies Medications Medication Sig Dispensed Refills Start Date End Date Status Probiotic Product (SUPER 0 Active PROBIOTIC OR) cyclobenzaprine Take 10 mg by 0 Active (FLEXERIL) 10 MG tablet mouth three times a day as needed for Muscle Spasms. VITAMIN D OR 1,000 mg. 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 Status post lumbar spinal fusion 03/27/2020 Overview: L3-4 and L5-S1 Calcific tendinitis of left shoulder 03/17/2017 Calcific tendonitis 08/26/2016 Overview: Calcific tendonitis, right shoulder Discoid meniscus of knee 08/24/2016 Chondrocalcinosis 08/24/2016 Overview: Chondrocalcinosis, left knee H/O cervical spine surgery 02/23/2014 Medial epicondylitis of elbow 02/11/2014 Unspecified disorder of menstruation and other abnorma l bleeding from 12/12/2005 female genital tract Overview: 12/07SisiAlepawel Immunizations Name Administration Dates Next Due DT Ped 07/22/1994 Flu Vac (3+ yrs) 06/14/2003, 06/17/2002, 06/23/2001, 07/24/2000, 05/14/1999 Influenza, Unspecified Formulation 05/12/1998, 05/18/1997, 1 Td 04/27/1999, 07/22/1994 Varicella 09/08/1997 (Deferred: Immune by Disease) Family History Medical History Relation Name Comments Diabetes Father Stroke Maternal Grandmother 92 Heart Attack Paternal Grandfather ag e 45 Cancer Paternal Grandmother breast ? 65 Cancer, Colon Negative Family History Hyperlipidemia Negative Family History Hypertension Negative Family History Thyroid Disorder Negative Family History Relation Name Status Comments Father Alive Mother Alive Brother 1 Alive Brother 2 Alive Daughter Alive Maternal Grandfather Maternal Grandmother Paternal Grandfather Paternal Grandmother Sister 1 Alive Sister 2 Alive Son Alive Social History Tobacco Use Types Packs/Day Years [...] Sign Reading Time Taken Comments Blood Pressure 123/72 03/22/2019 9:27 AM CDT Pulse 80 03/22/2019 9:27 AM CDT Temperature 36.8 ??C (98.2 ??F) 07/09/2020 10:24 AM SUPERVISOR ASSEMBLY ROOM Respiratory Rate 18 03/22/2019 9:27 AM CDT Oxygen Saturation 97% 03/22/2019 9:27 AM CDT Inhaled Oxygen Concentration - - Weight 63.5 kg (140 lb) 03/27/2020 12:03 PM CDT Height 152.4 cm (5') 03/27/2020 12:03 PM CDT Body Mass Index 27.34 03/27/2020 12:03 PM CDT Plan of Treatment Health Maintenance Due Date Last Done Comments Colon Cancer Screening Plan 1970 Due Hep C Screening (Preventive 1970 Services) HepB (1) 1970 COVID-19 Vaccine (#1) 1970 HIV Screening (Preventive 1984 Services) Mammogram 10/25/1998 10/25/1997 Cervical Cancer Screening 02/06/2007 02/05/2007, 04/02/2004 , Due 05/17/2002, Additional history exists Adult Preventive Visit 02/06/2008 02/05/2007, 04/05/2005, 04/02/2004, Additional history exists Cholesterol 2013 02/02/2007, 04/02/2004, 08/08/1998 Zoster/Shingles (1 of 2) 2018 Influenza (#1) 2022 04/28/2020, 05/31/2019, 05/05/2018, Additional history exists DTaP/Tdap/Td (4 - Tdap) 05/07/2022 05/07/2012, 04/27/1999, 07/22/1994, Additional history exists HepA Aged Out 02/24/2015, 01/19/2015 No longer eligible based on patient 's age to complete this topic Hib Aged Out No longer eligib le based on patient 's age to complete this topic IPV (Polio) Aged Out No longer eligib le based on patient 's age to complete this topic MCV4 Aged Out No longer eligib le based on patient 's age to complete this topic Pneumococcal Aged Out No longer eligib le based on patient 's age to complete this topic Medical Devices Implanted Type Area Lotteries Agent Device Shelf Model / Identifier Expiration Serial / Date Lot Scr Biotendesis Swivelock - [id number] DEVICE Right: [employer] 05/03/2019 AR- [id number] / Implanted: Qty: 1 on 10/02/2017 by Terrell Mccarthy MD at [facility] 0 / [id number] Insurance Payer Benefit Plan Subscriber ID Effective Phone Address Typ e / Group Dates [place]OY[place] [id number] 2013-Pre [phone] [address] Workers Comp [employer] sent [address] [place] [address] [place] [id number] 2019-Pres [address] ent [id number] [place] [address] Josie Booker Personal/Family Self 1970 [id number] [phone] [employer] (Work) [id number] Josie Booker Personal/Family Self 1970 [id number] [place] [address] Josie Booker Workers Comp Self 1970 [id number] [place] [address] Josie Booker Workers Comp Self 1970 [id number] [address] Advance Directives Latest Code Status on File Code Status Date Activated Date Inactivated Comments 03/07/2005 4:09 PM 03/07/2005 4:09 PM Care Teams Security Control Assessor Relationship Specialty Start Date End Date Britney Jarrett MD PCP - General 04/04/16[address] [place] [address]
--- OUTSIDE RECORDS SUMMARY | 2022-04-23 15:33 | XMS_ITS | Encounter Summary ---
:1970 Author Organization [facility] Address [address] [place] [address] Care Team Providers Name Role Phone Britney Jarrett MD Primary Care Provider Reason for Referral Procedure/Equipment (Routine) - Incomplete Specialty Diagnoses / Procedures Referred By Contact Refer red To Contact Diagnoses Left lumbar radiculitis Doni Conway MD Procedures FL C Arm 20 Pain Management [address] [facility] [place], [place] [address] Referral ID Status Reason Start Date Expiration Date Visits V isits Requested Authorized [id number] Incomplete 10/03/2018 01/02/2020 1 1 [facility] [employer] [facility]S Reason for Visit Reason Comments Follow-up lumbar MRI results Encounter Details Date Type Department Care Team Description 10/03/2018 Office Visit [facility] Doni Conway MD Left lumbar radiculitis (Primary Dx); Urgent Care [address] [place] [address] History of lumbar fusion [address] [place], [place] [address] [phone] (Wo rk) Social History Tobacco Use Types [...] on file documented as of this encounter Patient Instructions Patient InstructionsMary Santoyo RN - 10/03/2018 2:[address] Doni Conway MD Sports & Orthopaedic Medicine [facility] Medication Requests: Prescriptions are not filled on Weekends or on Weekdays after 3:00PM For all medication refills: Request a refill using MyChart or contact your Pharmacy Acute Injury Clinic Nurse Line: Please contact Acute Injury Clinic Nurse line for all medical requests and questions at [phone] Junior Account Manager: Please call Jess Webb for all administrative questions at MRI Scheduling: To schedule an MRI at [facility] please call [phone] Phone lines are answered 8AM to 5PM Friday - Friday. Workers??? Compensation: Please contact our department for any Work Comp concerns at Email: [email or web address] Response Strategies discharge [facility] [employer] [facility] documented in this encounter Progress Notes Doni Conway MD - 10/03/2018 2:30 PM CST Josie Booker [id number] 1970 [facility] Orthopaedic [facility] Follow-Up 10/03/2018 History of Present Illness: Josie Booker is a 48 y.o. female who presents for follow-up regarding low back pain. I last evaluated the patient on 09/21/2018 at which time she reported intermittent low back pain Exacerbated by sitting and standing. She had been using Lyrica and animal daycare provider as treatment. The patient noted new left medial leg and heel pain. I recommended undergoing a repeat MRI of the lumbar spine for further evaluation and continuing with her other interventions. Today, she presents to discuss the resultsof her MRI. There have not been any new or worsening symptoms. Imaging: MR of the lumbar spine (09/29/2018): 1. Solid dorsal fusion from L4 the sacrum and the interbody fusion at L5-S1 with residual grade 3 spondylolisthesis at L5-S1 and persistent severe bilateral upper down the foraminal stenosis/L5 ganglion compression. 2. Mild left subarticular recess encroachment at L3-4 due to facet/ligamentum flavum hypertrophy andsmall gas-containing synovial cyst as noted on 12/13/2016 CT imaging. 3. No central stenosis. Report per radiology. I independently reviewed the imaging study above; the results were discussed with the patient. Diagnostic Impression: 1. Left lumbar radiculitis 2. History of lumbar fusion Plan: We discussed the results of her MRI and I updated the patient on her condition and treatment optionsavailable to her. The patient verbalized understanding of the information discussed. I recommended undergoing a TFESI targeting the left L5 nerve root. We also discussed the possibility of a spinal cord stimulator. Follow-up two weeks after her injection. Total Time: 20 minutes Counseling Time: 20 minutes discussing above Scribe Disclosure: ITobin, am serving as a scribe to document services personally performed by Doni Conway MD at this visit, based upon the provider's statements to me. All documentation has been reviewed by the aforementioned provider prior to being entered into the official medical record. Portions of this medical record were completed by a scribe. UPON MY REVIEW AND AUTHENTICATION BY ELECTRONIC SIGNATURE, this confirms (a) I performed the applicable clinical services, and (b) the recordis accurate. Doni Conway MD documented in this encounter Plan of Treatment Not on filedocumented as of this encounter Results FL C Arm 20 Pain Management (10/07/2018 3:24 PM DIRECTOR OF GRANTS) Anatomical Region Laterality Modality Radiographic Imaging Specimen (Source) Anatomical Location Collection Method / Collectio n Time Received Time / Laterality Volume Narrative 10/07/2018 3:47 PM DIRECTOR OF GRANTS Images obtained during surgical procedure. Doni Conway MD RAD [place] documented in this encounter Visit Diagnoses Diagnosis Left lumbar radiculitis - Primary Thoracic or lumbosacral neuritis or radi culitis, unspecified History of lumbar fusion Left lumbar radiculitis Thoracic or lumbosacral neuritis or radi culitis, unspecified documented in this encounter Care Teams Event Security Officer Relationship Specialty Start Date End Date Britney Jarrett MD PCP - General 04/04/16[address] [place] [address] documented as of this encounter
--- OUTSIDE RECORDS SUMMARY | 2022-04-23 15:33 | XMS_ITS | Encounter Summary ---
:1970 Author Organization [facility] Address [address] [place] [address] Care Team Providers Name Role Phone Britney Jarrett MD Primary Care Provider Reason for Visit Reason Comments APPOINTMENT REQUEST Encounter Details Date Type Department Care Team Description 12/15/2019 Telephone [facility] Terrell Velasquez, APPOINTMENT REQUEST [address] [facility] [place], [place] [address] [address] [facility] [phone] [place] [address] (Wo rk) Social History Tobacco Use Types [...] documented as of this encounter Nursing Notes Stu Paz - 12/15/2019 10:13 AM CDT This telegraphic typewriter repairer left the following voicemail with the patient regarding her appointment with Dr. Mccarthy on 01/04/20: ???I???m calling regarding your appointment with Dr. Mccarthy on January 03. Dr. Mccarthy has been summoned for jury duty during that time. Dr. Mccarthy has reviewed your upcoming clinic visit and would like to see in person in clinic on December 27 at 3:00pm. Please give us a call back at [phone] to reschedule your January 03 appointment to December 27 at 3:00pm. If that date does not work for you, your appointment will need to be rescheduled to a later date. Thanks.?? documented in this encounter Plan of Treatment Not on filedocumented as of this encounter Visit Diagnoses Not on filedocumented in this encounter Care Teams Paper Production Engineer Relationship Specialty Start Date End Date Britney Jarrett MD PCP - General 04/04/16[address] [place] [address] documented as of this encounter
--- OUTSIDE RECORDS SUMMARY | 2022-04-23 15:33 | XMS_ITS | Encounter Summary ---
:1970 Author Organization [facility] Address [address] [place] [address] Care Team Providers Name Role Phone Britney Jarrett MD Primary Care Provider Encounter Details Date Type Department Care Team Description 04/24/2018 Lab Visit [facility] Osteoarthritis of multiple j oints, unspecified osteoarthritis type; 09456 [facility] Deg[place] [address] Social History Tobacco Use Types Packs/Day Years [...] Name Priority Date/Time Associated Diagnosis Comme nts VITAMIN D Routine 04/24/2018 3:02 PM Osteoarthritis of Resu lts for this 25-HYDROXY, TOTAL CDT multiple joints, proced ure are in unspecified the results osteoarthritis t ype section. Degenerative spinal arthritis FERRITIN Routine 04/24/2018 3:02 PM Osteoarthritis of Resu lts for this CDT multiple joints, procedure a re in unspecified the results osteoarthritis t ype section. Degenerative spinal arthritis TSH, SENSITIVE Routine 04/24/2018 3:02 PM Osteoarthritis of Re sults for this (WITH REFLEX) CDT multiple joints, procedure are in unspecified the results osteoarthritis t ype section. Degenerative spinal arthritis IRON PROFILE Routine 04/24/2018 3:02 PM Osteoarthritis of Resu lts for this (IRON,TIBC,%SAT.(C CDT multiple joints, proce dure are in ALC)) unspecified the results osteoarthritis t ype section. Degenerative spinal arthritis CALCIUM Routine 04/24/2018 3:02 PM Osteoarthritis of Resu lts for this CDT multiple joints, procedure a re in unspecified the results osteoarthritis t ype section. Degenerative spinal arthritis documented in this encounter Results GLORIA - Ferritin (04/24/2018 3:02 PM CDT) athologist Signature Ferritin Serum 152 9 - 204 PN SOFT ng/mL Specimen Anatomical Collection Method Collection Time Receive d Time (Source) Location / / Volume Laterality 04/24/2018 3:02 PM 8 6:30 CDT PM CDT Narrative PN SOFT - 04/24/2018 7:25 PM CD[place] [address] CLIA number [id number] Dao Ron MD LAB_1 Performing Organization Address [facility] Phon e Number PN SOFT [address] [place] [phone] (ABNORMAL) Total Iron and Iron Binding Capacity [...] - 04/24/2018 7:51 PM CDT Performed at [place] [address] [place] [address] CLIA number [id number] Dao Ron MD LAB_1 Performing Organization Address [facility]/ZIP Code Phon e Number PN SOFT [address] [place] [address] [place] - Calcium (04/24/2018 3:02 PM CDT) athologist Signature Calcium 9.7 8.4 - 10.4 PN SOFT mg/dL Specimen Anatomical Collection Method Collection Time Receive d Time (Source) Location / / Volume Laterality 04/24/2018 3:02 PM 8 3:02 CDT PM CDT Narrative PN SOFT - 04/24/2018 3:26 PM CDT Performed at [facility], [address] [place] [address] CLIA number [id number] Dao Ron MD LAB_1 Performing Organization Address [facility] Phon e Number PN SOFT [address] [place] [address] TSH with Free T4 (if TSH Abnormal) (04/24/2018 3:02 PM CDT) athologist Signature Thyroid 0.80 0.30 - PN SOFT Stimulating 4.50 Hormone uIU/mL Specimen Anatomical Collection Method Collection Time Receive d Time (Source) Location / / Volume Laterality 04/24/2018 3:02 PM 8 6:30 CDT PM CDT Narrative PN SOFT - 04/24/2018 7:25 PM CDT Performed at [facility] [address] [place] [address] CLIA number [id number] Dao Ron MD LAB_1 Performing Organization Address [facility] Phon e Number PN SOFT [address] [place] [address] VITD - Vitamin D (In house) (04/24/2018 [...] PM 8 6:23 CDT PM CDT Narrative MARIELLA MORE - 04/24/2018 6:58 PM CDT Performed at [facility], [address] [place] [address] CLIA number [id number] Dao Ron MD LAB_1 Performing Organization Address City/State/ZIP Code Phon e Number [facility] [address] [place] [address] documented in this encounter Visit Diagnoses Diagnosis Osteoarthritis of multiple joints, unspe cified osteoarthritis type Degenerative spinal arthritis ([facility]) Spondylosis of unspecified site without mention of myelopathy documented in this encounter Care Teams Commissary Production Supervisor Relationship Specialty Start Date End Date Britney Jarrett MD PCP - General 04/04/16[address] [place] [address] documented as of this encounter
--- OUTSIDE RECORDS SUMMARY | 2022-04-23 15:33 | XMS_ITS | Encounter Summary ---
:1970 Author Organization [facility] Address [address], [place] [address] Care Team Providers Name Role Phone Britney Jarrett MD Primary Care Provider Reason for Visit Procedure/Equipment (Routine) - Incomplete Specialty Diagnoses / Procedures Referred By Contact Refer red To Contact Procedures Provider, Foreign Images Foreign Image(S) XR [address] [facility] [place] [address] Referral ID Status Reason Start Date Expiration Date Visits V isits Requested Authorized [id number] Incomplete 05/26/2018 08/25/2019 1 1 Encounter Details Date Type Department Care Team Description 05/14/2018 Imaging Radiology PACS Provider, Foreign Images [address] [facility] [address] [place] [address] [place] [address] Social History Tobacco Use Types Packs/Day Years [...] Procedure Name Priority Date/Time Associated Comments Diagnosis FOREIGN IMAGE(S) XR Routine 05/14/2018 2:50 PM Re sults for this FLUOROSCOPY CDT procedure are i n the results section. documented in this encounter Results Foreign Image(S) XR Fluoroscopy (05/14/2018 2:50 PM CDT) Specimen (Source) Anatomical Location Collection Method / Collectio n Time Received Time / Laterality Volume Narrative PN POCT - 05/26/2018 2:43 PM CDT These outside images have been uploaded into PACS. If the results were provided, they will be located in the pa marcelnt's chart under the Media or Imaging tab. Foreign Images Provider RAD NON-REPORTABLES Performing Organization Address City/State/ZIP Code Phon e Number POCT PN POCT documented in this encounter Visit Diagnoses Not on filedocumented in this encounter Care Teams Welt Wheeler Relationship Specialty Start Date End Date Britney Jarrett MD PCP - General 04/04/16[address] [place] [address] documented as of this encounter
--- OUTSIDE RECORDS SUMMARY | 2022-04-23 15:33 | XMS_ITS | Encounter Summary ---
:1970 Author Organization [facility] Address [address], [place] [address] Care Team Providers Name Role Phone Britney Jarrett MD Primary Care Provider Reason for Referral Procedure/Equipment (Routine) - Incomplete Specialty Diagnoses / Procedures Referred By Contact Refer red To Contact Diagnoses Left lumbar radiculitis Doni Conway MD Procedures FL C Arm 20 [facility] [address] [place] [address] 1 Referral ID Status Reason Start Date Expiration Date Visits V isits Requested Authorized [id number] Incomplete 03/02/2019 05/31/2020 1 1 Reason for Visit Reason Comments Orders Needed injection Encounter Details Date Type Department Care Team Description 03/02/2019 Telephone [facility] Doni Conway MD Orders Needed CENTER [address] [place] [address] (injection) [address] [place], [place] [address] [phone] (Wo rk) Social History Tobacco Use Types [...] documented as of this encounter Nursing Notes Oralia Carlos, RN - 03/02/2019 12:02 PM CDT Pt calling and requesting repeat back injection. Pt states good relief from last injection and wouldlike the same one. Pt of Zoraida last seen 10/03 for Diagnostic Impression: 1. Left lumbar radiculitis 2. History of lumbar fusion Orders placed for Left TFESI L5 with Dr. Barragan. Pt advised to f/u 2 weeks after injection documented in this encounter Plan of Treatment Not on filedocumented as of this encounter Results FL C Arm 20 Pain Management (03/22/2019 9:17 AM CDT) Anatomical Region Laterality Modality Radiographic Imaging Specimen (Source) Anatomical Location Collection Method / Collectio n Time Received Time / Laterality Volume Narrative 03/22/2019 9:20 AM CDT Images obtained during surgical procedure. Doni Conway MD RAD FL documented in this encounter Visit Diagnoses Diagnosis Left lumbar radiculitis - Primary Thoracic or lumbosacral neuritis or radi culitis, unspecified Left lumbar radiculitis Thoracic or lumbosacral neuritis or radi culitis, unspecified documented in this encounter Care Teams Biomedical Engineer Relationship Specialty Start Date End Date Britney Jarrett MD PCP - General 04/04/161999 [place] [address] documented as of this encounter
--- OUTSIDE RECORDS SUMMARY | 2022-04-23 15:33 | XMS_ITS | Encounter Summary ---
:1970 Author Organization [facility] Address [address], [place] [address] Care Team Providers Name Role Phone Britney Jarrett MD Primary Care Provider Encounter Details Date Type Department Care Team Description 04/27/2018 Notes/Orders [facility] [address] [facility] [place] [address] [facility] [phone] [facility] N [id number] (Wo rk) Social History Tobacco Use Types [...] on filedocumented in this encounter Care Teams Ticket Taker Ferryboat Relationship Specialty Start Date End Date Britney Jarrett MD PCP - General 04/04/161999 [place] [address] documented as of this encounter
--- OUTSIDE RECORDS SUMMARY | 2022-04-23 15:33 | XMS_ITS | Encounter Summary ---
:1970 Author Organization [facility] Address [address] [place] [address] Care Team Providers Name Role Phone Britney Jarrtet MD Primary Care Provider Reason for Referral Consult/Transfer Care (Routine) - Closed Specialty Diagnoses / Procedures Referred By Contact Refer red To Contact Diagnoses Tarlov Doni Sal MD [address] [place] [address]102 1 Referral ID Status Reason Start Date Expiration Date Visits Requ ested Visits Authorized [id number] Closed 10/04/2018 01/03/2020 1 1 Scheduling Instructions Your provider has recommended an appoint ment with Calista Schumacher. You may call [phone] to schedule your appoi ntment. If you do not schedule an appointment within the next 1 to 3 business days, we will call you to help arrange your appointment. We suggest you call your [facility] insurance company about your coverage and benefits for this appointment. OR Reason for Visit Reason Comments Orders Needed Encounter Details Date Type Department Care Team Description 10/04/2018 Telephone [facility] Shayna Conway MD Orders Needed Care [facility] [address] [place] [address] [place] [phone] Social History Tobacco Use Types Packs/Day Years [...] documented as of this encounter Nursing Notes Do Ku RN - 10/07/2018 8:31 AM CST Order and facesheet faxed to Dr. Lane's office at [phone]. Pt informed via VM. Shanel Fink RN - 10/05/2018 1:44 PM CST Clinical Lab Specialist l/m on an identified secure voicemail informing the pt. That called from Neurosurgery clinic stating Dr. Miller no longer see pt.s with Tarlov cysts. He has not seen pt.s for four years regarding these cyst. He doesn't know of anyone in the area thatdoes. Clinical Lab Specialist informed the pt. That she would be routing this new information back to Dr. Conway and his nurse, Do. The pt. Was informed that Dr. Conway is in house on 10/07/18. Shanel Fink RN - 10/05/2018 1:41 PM CST , from Neurosurgery dept. Called and informed chief writer that Dr. Miller no longer sees pt.s with Tarlov cysts. He hasn't done so in four years. They don't know of anyone that does see pt.s with this. Please advise and inform the pt. Shanel Fink RN - 10/05/2018 10:26 AM CST Pt. L/m stating the fax number for Dr. Allen office is: [phone]. Faxed her order successfully and l/m on her identified secure voicemail stating this. Shanel Fink RN - 10/04/2018 12:08 PM CST Clinical Lab Specialist informed the pt. That Dr. Conway had placed a neurosurgery consult for her and that it was faxed successfully to the [facility]. Shanel Fink RN - 10/04/2018 11:21 AM CST Per VO from Dr. Conway, 1. The left hip pain may be coming from the Lumbar issues. Will address this concern two weeks afterthe JUNIOR with Dr. Conway. He can do this injection in office then, if needed. 2. Dr. To see for the Tarlov cysts is: Dr. Jaylen Allen at [facility].Faxed this order successfully to [phone], Dr. Allen office. Pt. Was given this information above as well as the phone number and address to the [facility] in [place], [place]. She asked that we place a consult to the neurosurgery center. Pended. Please approve or deny. Shanel Fink RN - 10/04/2018 11:01 AM CST Pt. Calling in stating she saw Dr. Conway yesterday in the [facility]. She has two questions: 1. Who is the Dr. She is to see about the two Tarlov cysts at S [address]. She states Dr. Conway was going to let her know. 2. She is wondering if she could have a cortisone injection to the left hip trochanter as well on the day of her JUNIOR (40 mg Kenalog each site). She states she has bursitis. Pt. Says this can be found in her images. Advise. 10/03/18 Dr. Conway Diagnostic Impression: 1. Left lumbar radiculitis 2. History of lumbar fusion ?? Plan: We discussed the results of her MRI and I updated the patient on her condition and treatment optionsavailable to her. The patient verbalized understanding of the information discussed. I recommended undergoing a TFESI targeting the left L5 nerve root. We also discussed the possibility of a spinal cord stimulator. Follow-up two weeks after her injection. ? Total Time: 20 minutes Counseling Time: 20 minutes discussing above ? Scribe Disclosure: I, Tobin Solorzano, am serving as a scribe to document services personally performed by Doni Conway MD at this visit, based upon the provider's statements to me. All documentation has been reviewed by the aforementioned provider prior to being entered into the official medical record. ?? Portions of this medical record were completed by a scribe. UPON MY REVIEW AND AUTHENTICATION BY ELECTRONIC SIGNATURE, this confirms (a) I performed the applicable clinical services, and (b) the recordis accurate. ? Doni Conway MD Note Details OR documented in this encounter Plan of Treatment Scheduled Referrals Name Type Priority Associated Diagnoses [facility] Referral Routine Tarlov cysts Ord ered: 10/04/2018 Consult-Adult documented as of this encounter Visit Diagnoses Diagnosis Tarlov cysts - Primary Mononeuritis of unspecified site documented in this encounter Care Teams Director Apparel Relationship Specialty Start Date End Date Britney Jarrett MD PCP - General 04/04/161999 [place] [address] documented as of this encounter
--- OUTSIDE RECORDS SUMMARY | 2022-04-23 15:33 | XMS_ITS | Encounter Summary ---
:1970 Author Organization [facility] Address [address] [place] [address] Care Team Providers Name Role Phone Britney Jarrett MD Primary Care Provider Reason for Referral (Routine) - Closed Specialty Diagnoses / Procedures Referred By Contact Refer red To Contact Diagnoses Left lumbar radiculitis Braeden Barragan MD Procedures Dexamethasone [address] [place] [address] Dr [place] [address] Referral ID Status Reason Start Date Expiration Date Visits Requ ested Visits Authorized [id number] Closed 03/22/2019 06/20/2020 1 1 Reason for Visit Reason Comments Post Visit Follow Up Phone Call Procedure Procedure/Equipment (Routine) - Incomplete Specialty Diagnoses / Procedures Referred By Contact Refer red To Contact Diagnoses Left lumbar radiculitis Doni Conway MD Procedures FL C Arm 20 [facility] Management [address] [place] [address] Dr [place] [address] Referral ID Status Reason Start Date Expiration Date Visits V isits Requested Authorized [id number] Incomplete 03/02/2019 05/31/2020 1 1 Encounter Details Date Type Department Care Team Description 03/22/2019 Procedure Visit [facility] Doni Conway MD [address] [facility] [place] [address] Post Visit Follow Up [address] [place] [address] Braeden Barragan MD [address] [facility] [place] [address] Phone Call; [place] [address], Micaela [place] [address] Social History Tobacco Use Types Packs/Day Years [...] Pulse 80 03/22/2019 9:27 AM CDT Temperature 36.6 ??C (97.9 ??F) 03/22/2019 8:38 AM CDT Respiratory Rate 18 03/22/2019 9:27 AM CDT Oxygen Saturation 97% 03/22/2019 9:27 AM CDT Inhaled Oxygen Concentration - - Weight 59.9 kg (132 lb) 03/22/2019 8:38 AM CDT Height 152.4 cm (5') 03/22/2019 8:38 AM CDT Body Mass Index 25.78 03/22/2019 8:38 AM CDT documented in this encounter Patient Instructions Patient InstructionsRenetta Domingo RN - 03/22/2019 8:30 AM CDT FOLLOW UP PLAN: Please follow up with Dr. Doni Conway in 10-14 days; call [phone] to schedule an appointment if you do not already have one. Lumbar Epidural Injection Post-Procedure Instructions: ?? Rest today, you may resume your normal activities tomorrow (Physical Therapy & skin care specialist can also be resumed next day). ?? [...] and Anesthesiologist Please contact the Pain Nurse ([phone]) for all medical/procedural questions regarding your care at the [facility] Please contact our Civil Engineer In Training ([phone]) for all administrative/scheduling questions related to the [facility] Medication Requests: Prescriptions requiring refills must be requested from the prescribing physician. If Dr. Barragan prescribed your medication, call the number above. If any other physician prescribed your medication, please contact his or her office to discuss. documented in this encounter Progress Notes Karmen Ferrara RN - 03/22/2019 8:30 AM CDT Patient here for JUNIOR procedure. Patient rates pain in low back,left glute,leg, 5/10 at rest, 7/10 with activity. Also numbness and tingling left legVerified NPO status. Pre-op teaching completed, patient verbalizes understanding. Confirmed pt has delivery driver/customer service home. Consent per MD. Renetta Domingo RN - 03/22/2019 8:30 AM CDT Patient tolerated procedure well, vital signs stable. Post-procedure pain level 2/10 at rest, 1/10 with activity. Discharge instructions given (written & verbal review), patient verbalized understanding. Patient discharged to home at 937am via ambulatory with delivery driver/customer service. documented in this encounter Procedure Notes Braeden Barragan MD - 03/22/2019 8:30 AM CDT Procedure Note Lumbar Transforaminal Epidural Steroid Injection under Flouro Procedure Date: 03/22/2019 Patient: Josie Booker 1970 PREOPERATIVE DIAGNOSIS: Lumbar Radicular Pain POSTOPERATIVE DIAGNOSIS: Lumbar Radicular Pain OPERATION PERFORMED: Left Lumbar Transforaminal Epidural Steroid Injection at levels: L5/S1 Given the patient's grade 3 spondylolisthesis and altered anatomy, as well as significant osteophytic change, approach at this level again required a high degree of cranial tilt [...] prone on the fluoroscopy table. Then a full service vending driver film was taken to identify the correct [...] and was discharged home, with a delivery driver/customer service, in stable condition with post procedural instructions. Prior to the procedure, the patient reported a pain score of 5/10 at rest and 7/10 with activity. Shortly before discharge, we noted a pain score of 2/10 at rest and 1/10 with activity. Follow-up will be Clinic Visit with Dr. Conway, per pertinent documentation. COMPLICATIONS: None documented in this encounter Plan of Treatment Not on filedocumented as of this encounter Procedures Procedure Name Priority Date/Time Associated Diagnosis Comme nts FL C ARM 20 PAIN Routine 03/22/2019 9:17 AM Left lumbar Resul ts for this MANAGEMENT CDT radiculitis procedure are i n the results [...] unspecified documented in this encounter Care Teams Rougher Machine Operator Relationship Specialty Start Date End Date Britney Jarrett MD PCP - General 04/04/161999 [place] [address] documented as of this encounter
--- OUTSIDE RECORDS SUMMARY | 2022-04-23 15:33 | XMS_ITS | Encounter Summary ---
:1970 Author Organization [facility] Address [address] [place] [address] Care Team Providers Name Role Phone Britney Jarrett MD Primary Care Provider Reason for Referral Consult/Transfer Care (Routine) - Closed Specialty Diagnoses / Procedures Referred By Contact Refer red To Contact Diagnoses Pes planus of both feet Cristal Calero MD [address] [place] [address] [address] [place] [address] Referral ID Status Reason Start Date Expiration Date Visits Requ ested Visits Authorized [id number] Closed 03/27/2020 06/26/2021 1 1 Scheduling Instructions Your provider has recommended an appoint ment with [facility]. You may call [phone] t o schedule your appointment. If you do not schedule an appointment within the next 1 to 3 business days, we will call you to help arrange your appointment. We sugges t you call your health insurance company about your coverage and benefits for thi s appointment. Therapies (Routine) - Closed Specialty Diagnoses / Procedures Referred By Contact Refer red To Contact Diagnoses Chronic pain of right knee Arthralgia of right ankle Cristal Calero MD [address] [facility] [address] [address] [place] [address] Referral ID Status Reason Start Date Expiration Date Visits Requ ested Visits Authorized [id number] Closed 03/27/2020 05/26/2020 1 1 Scheduling Instructions This order is your clinician's recommend ation for a service and is not an insurance referral which authorizes payment. The r ecommended service and/or location may not be covered by your insurance plan. Please c all the number on your insurance card to find out your specific benefits and coverage for the recommended services and/or location. If you need help scheduling the recommen ded services, please ask your clinician's staff to assist you. Procedure/Equipment (Routine) - Incomplete Specialty Diagnoses / Procedures Referred By Contact Refer red To Contact Diagnoses Arthralgia of right ankle Cristal Calero MD Procedures XR Ankle Rt 3 Views [address] [place] [address] Referral ID Status Reason Start Date Expiration Date Visits V isits Requested Authorized [id number] Incomplete 03/27/2020 06/26/2021 1 1 Procedure/Equipment (Routine) - Incomplete Specialty Diagnoses / Procedures Referred By Contact Refer red To Contact Diagnoses Chronic pain of right knee Cristal Calero MD Procedures XR Knee Lt 1-2 Views Comparison [address] [place] [address] Referral ID Status Reason Start Date Expiration Date Visits V isits Requested Authorized [id number] Incomplete 03/27/2020 06/26/2021 1 1 Procedure/Equipment (Routine) - Incomplete Specialty Diagnoses / Procedures Referred By Contact Refer red To Contact Diagnoses Chronic pain of right knee Cristal Calero MD Procedures XR Knee Rt 3 Views [address] [facility] [address] [place] [address] 1 Referral ID Status Reason Start Date Expiration Date Visits V isits Requested Authorized [id number] Incomplete 03/27/2020 06/26/2021 1 1 Reason for Visit Reason Comments Knee Pain or Injury ANKLE PAIN Encounter Details Date Type Department Care Team Description 03/27/2020 Office Visit Cristal Dao pain of right knee (Primary Dx); TARUN Sood MD Arthralgia of right ankle; [address] [facility] Pes planus of both feet; [place], [place] Weakness; [phone] Chondromalacia of right patella; [phone] Acquired hallux valgus of right foot; (Work) Status post lumbar spinal fusion Social History Tobacco Use Types Packs/Day Years [...] - Inhaled Oxygen Concentration - - Weight 63.5 kg (140 lb) 03/27/2020 12:03 PM CDT Height 152.4 cm (5') 03/27/2020 12:03 PM CDT Body Mass Index 27.34 03/27/2020 12:03 PM CDT documented in this encounter Patient Instructions Patient InstructionsParadise Echevarria, ATC - 03/27/2020 11:[address] 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 Consultation 03/27/2020 Chief Complaint: Right Knee and Right Ankle Pain History of Present Illness: Josie Booker is a 49 y.o. female with a complicated past medical history including 2 lumbar fusions -- L5-S1 in 1985 and L3-4 in August 2019 at [facility]. Neurosurgeon is requesting x-rays of lumbar spine to evaluate hardware. Today reports: 1. Right knee: pain began 3 months ago. No history of trauma, injury, or surgery. Localizes pain at medial and lateral joint line. Denies swelling, locking, catching, or giving way. States knee feels loose with popping. Pain with standing. Has numbness and tingling at baseline since her lumbar surgery. Range of motion is not restricted. Sleep is not disrupted due to pain. Is not limping due to pain. Has been evaluated by Dr. Flores for right medial knee pain on 06/18/14 and x-rays revealed mild medial joint space narrowing. MRI of knee from 06/18/14 demonstrated inferior pole of patella with full thickness chondromalacia, medial and lateral patellar chondromalacia, and fat pad impingement; no evidence of meniscal tears or other abnormality. 2. Right Ankle: pain began 3 months go. No history of trauma, injury, or surgery (including ankle sprains). Localizes pain at plantar aspect of calcaneus radiating into the myotendinous area of Achilles. Sinus tarsi region feels out of place. Denies swelling. Pain with first steps in the morning. Feels peroneal muscle is tight. Range of motion is not restricted. Sleep is not disrupted due to pain. Is limping due to pain. Was evaluated by a Jigsawyer at [facility] and diagnosed with plantar fasciitis. Has treated both with PT at [facility], caretaker grounds for ankle adjustments, shock wave therapy, foot massage with lacrosse ball and frozen water bottle, and massage at [facility]. Tried Strassburg sock last night for the first time. Does not go barefoot at home. Has custom orthotics. 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 . No tobacco use. No illicit drug use. Occasional alcohol consumption. Exercises daily with walking, elliptical, and strengthening. Wears seatbelt always. Review of Systems: Positive for weight gain and early onset osteoporosis. See above, otherwise complete 15-point reviewof systems is negative. Physical Exam: Ht 1.524 m (5') Wt 63.5 kg (140 lb) BMI 27.34 kg/m?? GENERAL: Alert female. No apparent distress. MUSCULOSKELETAL: Right Hip/Lumbar Spine: Soreness at L3-4 more than L4-5. Range of motion is restricted with bending to left and extension, no sharp pain. Circumduction of hip is not restricted and pain free. Flexion, torsion left and right, and bending to right is not restricted and pain free. Hip flexion to 120 degrees, internal and external rotation to 40 and 60 degrees, respectively. Negative internal hip impingement test, anteriorly and posteriorly. Hamstrings are not tight. Negative log roll. Compression of pelvis causes low back soreness. Sore over IT band. Nontender over greater trochanteric bursa. Weakness of gluteus medius and aicha. Right Knee - No visible deformity or joint effusion present. Hip flexion, knee flexion and extension5/5. Flexion to 120 degrees. Extends to 0 degrees. No pain over patellar or quad tendon nontender atpatellar facets. No pain with patellar compression, including inferior pole. Nontender at medial andlateral joint line. Collaterals stable at 0 and 30 degrees of flexion. Negative Sandi's, bounce test, Stan's, anterior and posterior drawer, Apley's, and Thessaly's. Single leg squat does not demonstrate valgus deformity, but has crepitus. Right Ankle/Foot: Pes planus. Normal heel varus with toe rise. Hallux valgus. No soft tissue swelling. No joint effusion present. No tenderness at medial or lateral malleolus, navicula, base of fifth metatarsal, tibiotalar joint, tibia, fibula, or fibular head. Tender at sinus tarsi region. Resisted pl kumar/dorsiflexion 5/5, pain free. Resisted internal/external rotation 5/5, external rotation causessoreness in peroneal muscle. Resisted inversion/eversion 5/5, pain free. Negative talar tilt, forcedexternal rotation, and anterior drawer. Heel cord is not tight. Sharp tenderness in plantar fascial region. Negative calcaneal squeeze test. Calf is supple. Nontender in myotendinous, insertional, or midsubstance of Achilles. Nontender over peroneal muscle. SKIN: No ecchymosis or erythema. NEUROVASCULAR: Non-antalgic gait. PT pulse intact. DTRs within normal limits, patella and Achilles. Heel and toe walk intact. Negative straight leg raise. Imaging: Radiographs of the right knee - 3 views (03/27/20): No acute fractures or dislocations. Mild narrowing of the medial compartment may be degenerative. Lateral compartment is unremarkable. Mild lateral patellar subluxation and tilt with mild degenerative arthrosis. No joint effusion. Radiographs of the right ankle 3 views (03/27/20): No definite fracture or dislocation is identified. Ankle mortise appears intact. Plantar calcaneal enthesophyte. Report per radiology. Imaging studies above were independently reviewed and discussed with patient. Assessment: 1. 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 Lateral patellar tilt 3. Core weakness 4. 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 Right hallux valgus, which may be affecting gait 6. Pes planus 7. Right plantar fasciitis 8. Status post lumbar fusion at L5-S1 in 1985 and L3-4 in August 2019 - Cannot comment on hardware stability, however do not strongly suspect lumbar radiculopathy Discussed treatment options with patient. Josie's pain is multifactorial. She inquires about lumbar spine. I informed her that given she has had spine surgery, she would be best served by seeing a medical billing and coding specialist or certainly her spine surgeon. Given her primary providers is within the [facility] system, she will obtain lumbar x-rays there. Has tried some interventions for plantar fasciitis and for knee pain, but has not optimized treatment. Sinus tarsi injection and right knee visco supplementation injection were offered--she wishes to consider these. . Plan: 1. Continue with PT for diagnoses mentioned above, could try patellar taping 2. Follow up if she wishes to try a right knee visco supplementation injection and/or sinus tarsi corticosteroid injection 3. Avoid any barefoot walking 4. Consider Hoka running shoes 5. Consult with specialty plant supervisor for custom orthotics 6. Continue with activities as tolerated 7. Will begin using Strassburg sock on a regular basis 8. Try towel stretch of heel cords in the morning prior to ambulation 9. Complete lumbar x-rays at PCP clinic and follow up with spine surgeon. Patient reports all her questions were answered. Total time: 60 minutes Counseling time: 40 minutes Referring Provider: PATIENT SELF REFERRAL, [place] [address] Primary Care Provider: [address] [place] [id number] Scribe Disclosure: Scribed for Cristal Calero MD by Afia Batres Market Research Specialist. I, Cristal Calero MD, have personally reviewed and agree with the information entered by the scribe. documented in this encounter Plan of Treatment Scheduled Referrals Name Type Priority Associated Diagnoses Order S chedule Physical Therapy Referral Routine Chronic pain of right Or dered: 03/27/2020 knee Arthralgia of right ankle [facility] CONSULT (AMB) Referral Routine Pes planus of bot h feet Ordered: 03/27/2020 documented as of this encounter Results XR Ankle Rt 3 [...] calcaneal enthesophyte. Cristal Calero MD RAD GD XR Knee Lt 1-2 Views Comparison (03/27/2020 [...] Diagnoses Diagnosis Chronic pain of right knee - Primary Arthralgia of right ankle Pain in joint, ankle and foot Pes planus of both feet Weakness Other malaise and fatigue Chondromalacia of right patella Chondromalacia of patella Acquired hallux valgus of right foot Hallux valgus (acquired) Status post lumbar spinal fusion Arthrodesis status Chronic pain of right knee Arthralgia of right ankle Pain in joint, ankle and foot documented in this encounter Care Teams Hogshead Hand Relationship Specialty Start Date End Date Britney Jarrett MD PCP - General 04/04/[address] [place] [address] documented as of this encounter
--- OUTSIDE RECORDS SUMMARY | 2022-04-23 15:33 | XMS_ITS | Encounter Summary ---
:1970 Author Organization [facility] Address [address], [place] [address] Care Team Providers Name Role Phone Britney Jarrett MD Primary Care Provider Reason for Visit Reason Comments Orders Needed Encounter Details Date Type Department Care Team Description 07/10/2020 Telephone [facility] Terrell Velasquez MD Orders Needed [address] [facility] [place] [address] [place] [address] [phone] (Wo rk) Social History Tobacco Use Types [...] documented as of this encounter Nursing Notes Megan Mckeon RN - 07/11/2020 4:27 PM CST Checked with regarding requested injection. Orders received. Call placed to patient and left voice message that the imaging center will be calling her to schedule. Brandi Santiago - 07/10/2020 1:05 PM CST Has the patient recently had surgery or an injury? n/a What referral/order is being requested: Left shoulder USGI Why is the referral/order needed: Patient is wanting to know if the provider would recommend for thepatient to get an injection in left shoulder shoulder FL. pls advise recommendations and discuss with patient. Is it okay to leave detailed message on your voicemail? yes [Moto Mix Operator/Appt Center: If this call is after 3 p.m., communicate to patient: If we are not able to get back to you by the end of the day and your symptoms worsen please contact the Careline] [Moto Mix Operator: Please inform patient that a referral does not guarantee insurance coverage. Patients should call the member services number on the back of their insurance ID card to understand whatcoverage for the services they are requesting.] STRIAL PARAMEDIC documented in this encounter Plan of Treatment Not on filedocumented as of this encounter Visit Diagnoses Diagnosis Left shoulder pain, unspecified chronici ty - Primary documented in this encounter Care Teams Public Relations Player Relationship Specialty Start Date End Date Britney Jarrett MD PCP - General 04/04/[address] [place] [address] documented as of this encounter
--- OUTSIDE RECORDS SUMMARY | 2022-04-23 15:33 | XMS_ITS | Encounter Summary ---
:1970 Author Organization [facility] Address [address] [address] Care Team Providers Name Role Phone Britney Jarrett MD Primary Care Provider Reason for Visit Procedure/Equipment (Routine) - Incomplete Specialty Diagnoses / Procedures Referred By Contact Refer red To Contact Procedures Provider, Foreign Images Foreign Image(S) MR Shoulder [address] [place] [address] Referral ID Status Reason Start Date Expiration Date Visits V isits Requested Authorized [id number] Incomplete 05/26/2018 08/25/2019 1 1 Encounter Details Date Type Department Care Team Description 05/14/2018 Imaging Radiology PACS Provider, Foreign Images [address] [facility] [address] [place] [address] [place] [address] Social History Tobacco Use Types Packs/Day Years [...] Date/Time Associated Diagnosis Comme nts FOREIGN IMAGE(S) MR Routine 05/14/2018 2:45 PM Re sults for this SHOULDER LT CDT procedure are i n the results section. documented in this encounter Results Foreign Image(S) MR Shoulder Lt (05/14/2018 2:45 PM CDT) Specimen (Source) Anatomical Location Collection Method / Collectio n Time Received Time / Laterality Volume Narrative PN POCT - 05/26/2018 2:42 PM CDT These outside images have been uploaded into PACS. If the results were provided, they will be located in the pa brigido's chart under the Media or Imaging tab. Foreign Images Provider RAD NON-REPORTABLES Performing Organization Address City/State/ZIP Code Phon e Number POCT PN POCT documented in this encounter Visit Diagnoses Not on filedocumented in this encounter Care Teams Heating And Blending Supervisor Relationship Specialty Start Date End Date Britney Jarrett MD PCP - General 04/04/[address] [place] [address] documented as of this encounter
--- OUTSIDE RECORDS SUMMARY | 2022-04-23 15:33 | XMS_ITS | Encounter Summary ---
:1970 Author Organization [facility] Address [address] [address] Care Team Providers Name Role Phone Britney Jarrett MD Primary Care Provider Reason for Visit Reason Comments Back Pain low Encounter Details Date Type Department Care Team Description 09/21/2018 Office Visit [facility] Doni Conway MD Chronic bilateral low back pain without sciatica (Primary Dx); Urgent Care [address] [facility] History of lumbar fusion [address] [place], [place] [address] [phone] (Wo rk) Social History Tobacco Use Types [...] - - Temperature 36.8 ??C (98.2 ??F) 09/21/2018 3:10 PM LOOM REPAIRER Respiratory Rate - - Oxygen Saturation - - Inhaled Oxygen Concentration - - Weight - - Height - - Body Mass Index - - documented in this encounter Patient Instructions Patient Janeth Miller RN - 09/21/2018 3:[address] Doni Conway MD Sports & Orthopaedic Medicine [facility] Medication Requests: Prescriptions are not filled on Weekends or on Weekdays after 3:00PM For all medication refills: Request a refill using MyChart or contact your Pharmacy Acute Injury Clinic Nurse Line: Please contact Acute Injury Clinic Nurse line for all medical requests and questions at [phone] Chocolate Dipper: Please call Jess Webb for all administrative questions at MRI Scheduling: To schedule an MRI at [facility] please call [phone] Phone lines are answered 8AM to 5PM Friday - Friday. Workers??? Compensation: Please contact our department for any Work Comp concerns at Email: [email or web address] MRI to be scheduled at [facility] in [place] Follow up for results and recommendations REPAIRER documented in this encounter Progress Notes Doni Conway MD - 09/21/2018 3:00 PM CST Josie Booker [id number] 1970 [facility] Acute Injury Clinic 09/21/2018 Chief Complaint: Low Back Pain History of Present Illness: Josie Booker is a 48 y.o. female who presents for follow-up of low back pain. Patient was last evaluated by myself on 01/29/2017 for post-laminectomy syndrome and bilateral low back pain radiating into the bilateral legs. Since that time her symptoms have been intermittent and she has been seeing achiropractor and massage therapist over this time. They have noticed newer lumps in her back, but she denies any pain around these. Her low back pain is worse with even short duration sitting and standing. She has been taking 75 mg of Lyrica daily. The patient notes new left medial leg and heel pain. She had her ankle adjusted by her chiropractor but pain has been worse since. Review of Systems: Denies fever, rash, numbness or tingling. Physical Exam: Temp 36.8 ??C (98.2 ??F) (Tympanic) General: She is alert, cooperative, in no acute distress.?? Mood and affect are appropriate.?? Cardiovascular: Posterior tibial pulses are palpable bilaterally. Back: She ambulates with a normal gait and performs transitional movements with ease. With lumbar flexion patient can reach toes. Lumbar extension is full. Neuro:??She has 5/5 strength throughout the bilateral lower extremities.??Sensation is intact to light touch over the L3, L4, L5 and S1 dermatomes bilaterally. Diagnostic Impression: 1. Acute on chronic low back pain without sciatica 2. History of lumbar fusion Plan: Educated the patient regarding her condition and management. After a discussion recommended an updated lumbar spine MRI, ordered as an open MRI at [facility]. She will continue with her other regular interventions. The patient verbalized understanding. Follow-up for MRI results. Scribe Disclosure: I, Jose E Fregoso, am serving as a scribe to document services personally performed by Doni Conway MD at this visit, based upon the provider's statements to me. All documentation has been reviewedby the aforementioned provider prior to being entered into the official medical record. Portions of this medical record were completed by a scribe. UPON MY REVIEW AND AUTHENTICATION BY ELECTRONIC SIGNATURE, this confirms (a) I performed the applicable clinical services, and (b) the recordis accurate. Doni Conway MD REPAIRER documented in this encounter Plan of Treatment Not on filedocumented as of this encounter Visit Diagnoses Diagnosis Chronic bilateral low back pain without sciatica - Primary History of lumbar fusion documented in this encounter Care Teams Biophysics Professor Relationship Specialty Start Date End Date Britney Jarrett MD PCP - General 04/04/[address] [place] [address] documented as of this encounter
--- OUTSIDE RECORDS SUMMARY | 2022-04-23 15:33 | XMS_ITS | Encounter Summary ---
:1970 Author Organization [facility] Address [address] [address] Care Team Providers Name Role Phone Britney Jarrett MD Primary Care Provider Reason for Visit Reason Comments Post Visit Follow Up Phone Call Encounter Details Date Type Department Care Team Description 10/08/2018 Telephone [facility] Renetta Domingo, Post Visit Follow Up [address] [facility] RN Phone Call [place], [place] [address] Social History Tobacco Use Types [...] on filedocumented in this encounter Care Teams Proposal Development Manager Relationship Specialty Start Date End Date Britney Jarrett MD PCP - General 04/04/[address] [place] [address] documented as of this encounter
--- OUTSIDE RECORDS SUMMARY | 2022-04-23 15:33 | XMS_ITS | Encounter Summary ---
:1970 Author Organization [facility] Address [address] [place] [address] Care Team Providers Name Role Phone Britney Jarrett MD Primary Care Provider Reason for Visit (Routine) - Incomplete Specialty Diagnoses / Procedures Referred By Contact Refer red To Contact Procedures Doni Conway MD Foreign Image(s) MR L-Spine [address] [facility] [address] [place], [place] [address] Referral ID Status Reason Start Date Expiration Date Visits V isits Requested Authorized [id number] Incomplete 10/03/2018 01/02/2020 1 1 Encounter Details Date Type Department Care Team Description 09/29/2018 Ancillary Procedure [facility] Radiology PACS oDni Conway MD [address] [facility] [address] [place] [address] [place] [address] [place] [address] (Felecia rk) Social History Tobacco Use Types Packs/Day [...] Diagnosis Comme nts FOREIGN IMAGE(S) MR Routine 09/29/2018 12:00 AM R esults for this L-SPINE WO IV CONT TUCKING MACHINE OPERATOR procedure are in the results section. documented in this encounter Results Foreign Image(s) MR L-Spine WO IV Cont (09/29/2018 12:00 AM TUCKING MACHINE OPERATOR) Specimen (Source) Anatomical Location Collection Method / Collectio n Time Received Time / Laterality Volume Narrative PN POCT - 10/03/2018 2:39 PM TUCKING MACHINE OPERATOR These outside images have been uploaded into PACS. If the results were provided, they will be located in the ut brigido's chart under the Media or Imaging tab. Doni Conway MD RAD NON-REPORTABLES Performing Organization Address City/State/ZIP Code Phon e Number POCT PN POCT documented in this encounter Visit Diagnoses Not on filedocumented in this encounter Care Teams Lead Software Tester Relationship Specialty Start Date End Date Britney Jarrett MD PCP - General 04/04/161999 [place] [address] documented as of this encounter
--- OUTSIDE RECORDS SUMMARY | 2022-04-23 15:34 | XMS_ITS | Encounter Summary ---
:1970 Author Organization [facility] Address [address] [place] [address] Care Team Providers Name Role Phone Britney Jarrett MD Primary Care Provider Reason for Visit Procedure/Equipment (Routine) - Incomplete Specialty Diagnoses / Procedures Referred By Contact Refer red To Contact Diagnoses Postop check Terrell Mccarthy MD Procedures XR Shoulder Rt 2+ Views [address] [facility] [address] [place] [address] Referral ID Status Reason Start Date Expiration Date Visits V isits Requested Authorized [id number] Incomplete 11/18/2017 02/17/2019 1 1 Encounter Details Date Type Department Care Team Description 11/18/2017 Imaging [facility] Terrell Mccarthy MD Postop check [address] [facility] [address] [facility] [place] [address] [place] [address] [phone] (Wo rk) Social History Tobacco Use Types [...] Date/Time Associated Diagnosis Comme nts XR SHOULDER RT 2+ Routine 11/18/2017 3:09 PM Postop check Resu lts for this VIEWS CDT procedure are i n the results section. documented in this encounter Results XR Shoulder Rt 2+ Views (11/18/2017 3:09 PM CDT) Anatomical Region Laterality Modality Upper Extremity, Shoulder Digital Radiog yazmin Specimen (Source) Anatomical Location Collection Method / Collectio n Time Received Time / Laterality Volume Narrative 11/25/2017 8:22 AM CDT AP and lateral of the glenohumeral joint, AP and lateral of scapula. Indication: ??Shoulder surgery. ??Compar sidney views in the EMR demonstrate postsurgical changes with reduction in t he size of the calcific focus and a biceps tenodesis screw placement. ?? Radiographic impression: ??Status post r esection of calcium and postsurgical changes of the proximal hum erus. Otherwise normal shoulder. ?? Terrell Mccarthy MD RAD GD documented in this encounter Visit Diagnoses Diagnosis Postop check Follow-up examination, following unspeci fied surgery documented in this encounter Care Teams Rn Hospital Relationship Specialty Start Date End Date Britney Jarrett MD PCP - General 04/04/161999 [place] [address] documented as of this encounter
--- OUTSIDE RECORDS SUMMARY | 2022-04-23 15:34 | XMS_ITS | Encounter Summary ---
:1970 Author Organization [facility] Address [address] [place] [address] Care Team Providers Name Role Phone Britney Jarrett MD Primary Care Provider Reason for Referral Procedure/Equipment (Routine) - Incomplete Specialty Diagnoses / Procedures Referred By Contact Refer red To Contact Diagnoses Surgery, elective Terrell Mccarthy MD Procedures BRIT Arthroscopy Shoulder Rt [address] [facility] [address] [place] [address] Referral ID Status Reason Start Date Expiration Date Visits V isits Requested Authorized [id number] Incomplete 09/30/2017 12/30/2018 1 1 CAL TRANSCRIPTION RADIOLOGY Encounter Details Date Type Department Care Team Description 09/30/2017 Notes/Orders [facility] Terrell Mccarthy, Surg muna, elective CENTER (Primary Dx) [address] [facility] [address] [facility] [place] [address] [place] [phone] (Wo rk) Social History Tobacco Use Types [...] on filedocumented as of this encounter Results BRIT Arthroscopy Shoulder Rt (10/02/2017 8:36 AM MEDICAL TRANSCRIPTION RADIOLOGY) Anatomical Region Laterality Modality Upper Extremity, Shoulder Endoscopy Specimen (Source) Anatomical Location Collection Method / Collectio n Time Received Time / Laterality Volume Narrative This result has an attachment that is no t available. Terrell Mccarthy MD RAD NON-REPORTABLES documented in this encounter Visit Diagnoses Diagnosis Surgery, elective - Primary Unspecified elective surgery for purpose s other than remedying health states documented in this encounter Care Teams Certified Athletic Trainer Relationship Specialty Start Date End Date Brtiney Jarrett MD PCP - General 04/04/161999 [place] [address] documented as of this encounter
--- OUTSIDE RECORDS SUMMARY | 2022-04-23 15:34 | XMS_ITS | Encounter Summary ---
:1970 Author Organization [facility] Address [address] [place] [address] Care Team Providers Name Role Phone Britney Jarrett MD Primary Care Provider Reason for Visit Reason Comments Questions c/o numbness in arm and hand Encounter Details Date Type Department Care Team Description 10/10/2017 Telephone [facility] Terrell Mccarthy, Talisha price (c/o CENTER numbness in arm and [address] [facility] hand) [place], [place] [address] [place], [place] [phone] (Wo rk) Social History Tobacco Use Types [...] encounter Nursing Notes Megan Mckeon RN - 10/10/2017 1:52 PM CST Patient called in with questions regarding numbness and tingling in forearm and hand. Instructed patient to remove sling BID allowing arm to her side and to rest in the chair with sling off and supported on her lap with pillows. She states that it helps some but the symptoms don't ever go away completely. Describes her hand as warm and nails normal. She had arm symptoms prior to surgery, and I told her that the swelling and manipulation of tissue may have increased her symptoms. She is taking tylenol during the day and Neurontin with a 1/2 pain pill at night. She is making surethere is no pressure on the elbow inside of the sling. She is icing. Incisions she describe are doing well. No fever present. She has appointment to see Dr. Mccarthy in Friday. She will continue to observe her symptoms. 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
--- OUTSIDE RECORDS SUMMARY | 2022-04-23 15:34 | XMS_ITS | Encounter Summary ---
:1970 Author Organization [facility] Address [address] [place] [address] Care Team Providers Name Role Phone Britney Jarrett MD Primary Care Provider Reason for Visit Reason Onset Date Comments Refill 10/03/2017 Encounter Details Date Type Department Care Team Description 10/03/2017 Refill [facility]A Terrell Velasquez MD Refill [address] [facility] [address] [facility] [place], [place] [address] [place] [address] [phone] (Wo rk) Social History Tobacco Use Types [...] encounter Nursing Notes Megan Mckeon RN - 10/03/2017 4:44 PM CST The DOD has left for the day. The resident Good Amado was notified of need for change in medications. He is authorizing the refill for zofran and norco for this patient. T WORKER documented in this encounter Plan of Treatment Not on filedocumented as of this encounter Visit Diagnoses Not on filedocumented in this encounter Care Teams Director Cloud Transformation Relationship Specialty Start Date End Date Britney Jarrett MD PCP - General 04/04/161999 [place] [address] documented as of this encounter
--- OUTSIDE RECORDS SUMMARY | 2022-04-23 15:34 | XMS_ITS | Encounter Summary ---
:1970 Author Organization [facility] Address [address] [place] [address] Care Team Providers Name Role Phone Britney Jarrett MD Primary Care Provider Encounter Details Date Type Department Care Team Description 10/02/2017 Anesthesia Event [facility] Enmanuel Harmon MD [address] [facility] [address] [place], [place] [address] [place], [place] [phone] (Wo rk) Anesthesia Record Procedure Summary Procedure Name Responsible Anesthesia Start Anesthesia Stop Anesthesiologist Time Time RIGHT shoulder Enmanuel Harmon MD 10/02/17 1003 10/02/17 113 4 arthroscopic subacromial decompression, biceps tenodesis, calcium debridement, possible rotator cuff repair and possible distal clavicle excision (Right: Shoulder) Events Date Time Event Comment 10/02/2017 0935 IV plmt Harris Ryan, GRAY TENDER 0938 IV Plmt Comp IV was placed in Preop area by Jordin Mitchell APRN, GRAY TENDER for adminis tration of IV fluids, IV antibiotics, and IV pre-op sedation. Patient was continuously mon itored by Jordin Mitchell APRN, GRAY TENDER during the place ment. 1003 1003 An Start 1006 An Start Data 1012 An Oxygen Mask Spontaneous res pirations with adequate air exchange. 1017 MD/DO Present 1026 Quick Note Time out complet ed 1125 an stop data 1134 An Stop Care transferred . 1134 Care Handoff Note I discussed wi th the receiving nurse and we: 1) Identified the p atient, rogers family member(s) or patient surrogat e 2) Identified the responsible practitioner 3) Reviewed the pertinent medical history 4) Discu ssed the surgical/procedure course 5) Reviewed intr a-op anesthesia management and issues during an esthesia 6) Set expectations for the post-procedu re period 7) Allowed opportunity for questions an d acknowledgement of understanding of report Electr onically signed by Radha Atkins APRN , GRAY TENDER 1202 MD/DO Present Name Total midazolam 2 mg/2 mL injection (aka VERSED) 4 mg lidocaine 2% PF injection aka (XYLOCAINE) 80 mg propofol 10 mg/mL for procedural sedation (aka diPRIva n) 20 mg propofol 10 mg/mL (aka diPRIvan) 328.03 mg ondansetron injection (aka ZOFRAN) 4 mg dexamethasone 4 mg/mL injection (aka DECADRON) 4 mg ceFAZolin (aka ANCEF) 2 g in dextrose 100 ml IVPB 2 g phenylephrine-NaCl 0.9% 100 mcg/mL syringe (aka SARAH-SY NEPHRINE) 250 mcg lactated ringers infusion 1,400 mL Agents Name O2 Air Blood No blood administrations on file. Lines, Drains, and Airways Type Details Placement Removal Peripheral IV Placement Date: 10/02/17 0000 by 10/02/17 1339 néstor Vang 10/02/17; Inserted Jordin Mitchell Laurie J RN by?: GRAY TENDER; Size LYNETTE FIELDS (Gauge): 20 G; Orientation: Left; Site Prep: Alcohol; Local Anesthetic: Injectable, Lidocaine 1%; Insertion attempts: 1; Patient Tolerance: Tolerated well; Removal Date: 10/02/17; Removal Time: 1339 Incision/Surgical Site 10/02/17; 1027; 10/02/17 1027 by 10/16/17 1340 by Alivia, Shoulder; Right; Sultana Malone Discontinu e 10/16/17; 1340 RN documented in this encounter Social History Tobacco Use Types Packs/Day Years [...] on file documented as of this encounter Miscellaneous Notes Anesthesia Postprocedure Evaluation - Enmanuel Harmon MD - 10/02/2017 12:49 PM CST [facility] Post-op Note Patient: Josie Booker Post-Op Diagnosis: Shoulder pain, right Procedure Performed: Procedure(s): RIGHT shoulder arthroscopic subacromial decompression, biceps tenodesis, calcium debridement, possible rotator cuff repair and possible distal clavicle excision x x x Anesthesia Type: Regional Post-op vital signs: BP 111/63 Pulse (!) 106 Temp 97.9 ??F (36.6 ??C) (Oral) Resp 14 Ht 4' 11.25 Wt 60.3 kg (133 lb) LMP Comment: no longers get d/t ablation SpO2 96% BMI 26.64 kg/m2 Pain Score: Preferred Pain Scale: number (Numeric Rating Pain Scale) Pain Rating (0-10): Rest: acceptable, 2 Post-op assessment: No anesthesia complication. Patient location: PACU Airway Status: Patent Cardiovascular function: Satisfactory Hydration status: Satisfactory PONV: None Level of Consciousness: Awake Fully Participates Postop Assessment: Patient tolerated procedure well. Electronically signed by: Enmanuel Harmon MD 10/02/2017 12:49 PM ICE MANAGER Anesthesia Preprocedure Evaluation - Enmanuel Harmon MD - 10/02/2017 9:44 AM CST [facility] An[facility] Pre-op Evaluation Procedure: Procedure(s): RIGHT shoulder arthroscopic subacromial decompression, biceps tenodesis, calcium debridement, possible rotator cuff repair and possible distal clavicle excision x x x HPI: 47 y.o. old female with Shoulder pain, right NPO Status: Last Fluid Intake Time: 0500 (water) Last Fluid Intake Date: 10/02/17 Last Food Intake Date: 10/01/17 Last Food Intake Time: 2200 No Known Allergies Past Medical History: Diagnosis Date ??? Calcific tendinitis of left shoulder 03/17/2017 ??? Calcific tendonitis, right shoulder 08/26/2016 ??? Normal delivery 1991 Jose Rafael ??? Normal delivery 1994 Marianne ??? PONV (postoperative nausea and vomiting) Patient Active Problem List Diagnosis ??? Unspecified disorder of menstruation and other abnormal bleeding from female genital tract ??? Medial epicondylitis of elbow ??? H/O cervical spine surgery ??? Discoid meniscus of knee ??? Chondrocalcinosis ??? Calcific tendonitis ??? Calcific tendinitis of left shoulder Past Surgical History: Procedure Laterality Date ??? ADENOIDECTOMY PRIMARY; UNDER AGE 10 ??? BACK SURGERY 1985 lumbar fusion for spondylolisthesis ??? BX BREAST; PERQ W/O GUID -SEP PROC 1997 R breast-benign ??? CERVICAL SPINE SURGERY 2008 Fusion of C6-7 ??? MAMMAPLASTY MAR; W/PROSTHETIC IMPL 1999 ??? NEUROPLASTY; MEDIAN CARPAL TUNNEL 12/1995 R ??? NEUROPLASTY; MEDIAN CARPAL TUNNEL 05/1996 L ??? SURGERY CONSULT-ADULTS 1985 back-spondylolysthesis with fusion ??? TONSILLECT PRIM/SEC; UNDER AGE 10 Outpatient Prescriptions Marked as Taking for the 10/02/17 encounter (Hospital Encounter) Medication Sig Dispense Refill ??? cyclobenzaprine (FLEXERIL) 10 MG tablet Take 10 mg by mouth three times a day as needed for Muscle Spasms. ??? Probiotic Product (SUPER PROBIOTIC OR) Current Facility-Administered Medications Medication Dose Route Frequency ??? acetaminophen (TYLENOL) tablet 1,000 mg 1,000 mg Oral Once ??? ceFAZolin (aka ANCEF) 2 g in dextrose 100 ml IVPB 2 g Intravenous Once ??? fentaNYL (SUBLIMAZE) injection 25-50 mcg 25-50 mcg Intravenous Once ??? fentaNYL (SUBLIMAZE) injection 25-50 mcg 25-50 mcg Intravenous Q5MIN PRN ??? HYDROmorphone injectable 0.2-0.4 mg 0.2-0.4 mg Intravenous Q10MIN PRN ??? hydrOXYzine pamoate (VISTARIL) capsule 25 mg 25 mg Oral Once ??? lactated ringers infusion Intravenous Continuous ??? meperidine (DEMEROL) injection 12.5 mg 12.5 mg Intravenous Q5MIN PRN ??? midazolam (VERSED) injection 1-2 mg 1-2 mg Intravenous Once ??? morphine injectable 1-2 mg 1-2 mg Intravenous Q5MIN PRN ??? ondansetron (ZOFRAN) injection 4 mg 4 mg Intravenous Q4H PRN ??? oxyCODONE (OXYCONTIN) controlled release tablet 10 mg 10 mg Oral Once Labs: Lab Results Component Value Date/Time GLUCOSE 78 12/12/2005 04:07 PM Lab Results Component Value Date/Time WBC 6.7 12/12/2005 04:07 PM HGB 13.6 12/12/2005 04:07 PM HCT 39.4 12/12/2005 04:07 PM PLTS 300 12/12/2005 04:07 PM No results found for: INR No results found for: HCGQUANT Urine : Result: Negative Urine : Blood Bank: No results found for: ABORH, ABSCR EKG: No results found for this or any previous visit. Physical Exam: BP (!) 143/84 Pulse (!) 114 Temp 98.3 ??F (36.8 ??C) (Oral) Resp 16 Ht 4' 11.25 Wt 60.3 kg (133 lb) LMP Comment: no longers get d/t ablation SpO2 98% BMI 26.64 kg/m2 Assessment/Plan: Review of Systems Patient does not have GERD. Patient is not a smoker. The patient denies alcohol use. Patient denies any recent URI. History of PONV: Yes. History of motion sickness: No. Patient denies any personal or family history of anesthesia complications (PONV). Exam Mental Status: Alert and oriented. Mallampati score: I (One). Mouth opening: Normal Thyromental Distance: > 3 finger breadths and Normal Neck Extension: Full Neck Circumference > 40 cm?: No Current airway assessment:Normal Dentition: Normal. Cardiac Exam: Regular rate and rhythm. Respiratory Exam: Breath sounds clear to auscultation Assessment ASA Status: 1 . Plan Anesthesia type: Peripheral Nerve Block Induction: Maintenance: Postoperative pain management (PONV): Plan for postoperative opioid use PONV Risk Score Peds:0 PONV Risk Score Adult: 4 PONV Prophylaxis (planned):Decadron and Ondansetron Anesthetic plan, risks, benefits and alternatives discussed with: Patient Chronic neck pain H&P Reviewed and Patient examined, no change observed IV access Antibiotics per surgery Electronically signed by: Enmanuel Harmon MD 10/02/2017 9:44 AM ICE MANAGER Anesthesia Procedure Notes - Enmanuel Harmon MD - 10/02/2017 9:43 AM SERVICE MANAGER Associated Order(s): [facility] PERIPHERAL BLOCK Peripheral Block Patient Location: Pre-op Start time: 10/02/2017 9:40 AM End time: 10/02/2017 9:43 AM Procedure Type: Supraclavicular Timeout: Correct Position: yes Correct Site: yes Correct Laterality:yes Correct Patient: yes Correct Procedure:yes Correct Site Marked:yes risks and benefits discussed patient agrees to proceed IV checked site marked anesthesia consent monitors and equipment checked patient identified surgical consent pre-op evaluation timeout performed at surgeon's request Local Anesthetics: Ropivacaine 0.5 % Total Volume (ml): 35 Peripheral Nerve Block: Patient Position: sitting Sterile Prep:Betadine, Mask and Sterile gloves Monitoring:EKG, continuous pulse oximetry and blood pressure monitoring Procedures:ultrasound guided Local Infiltration: Lidocaine 1% Laterality: right Ultrasound: Ultrasound used for needle placement, Permanent image stored, The nerve structure appeared normal, if not explain in comment, US was used to visualize the spread of anesthestic, The U/S image did not reveal any readily apparent pathological abnormalities; if not, explain in comments, Patient agrees to proceed, , Needle:insulated Needle Gauge:21 G Needle Length:2 in Bolus Via:needle Bolus given as slow fractionated injection:Yes Blood aspirated:No Paresthesias: No Bleeding at site:No Complications: none Attestations:I personally performed the procedure. ICE MANAGER documented in this encounter Plan of Treatment Pending Results Name Type Priority Associated Diagnoses Date/Ti me Tria Peripheral Block Other Routine 2017 9:44 AM SERVICE MANAGER documented as of this encounter Procedures Procedure Name Priority Date/Time Associated Diagnosis Comme nts [facility] PERIPHERAL BLOCK Routine 10/02/2017 9:44 AM SERVICE MANAGER Procedure Note - Bird Harmon MD - 10/02/2017 9:43 AM CSTThis note is in progress. Formatting of this note migh t be different from the original. Peripheral Block Patient Location: Pre-op Start time: 10/02/2017 9:40 AM End time: 10/02/2017 9:43 AM Procedure Type: Supraclavicu lar Timeout: Correct Position: yes Correct Site: yes Correct Laterality:yes Correct Patient: yes Correct Procedure:yes Correct Site Marked:yes risks and benefits discussed patient agrees to proceed IV checked site marked anesthesia consent monitors and equipment check ed patient identified surgical consent pre-op evaluation timeout performed at surgeon's request Local Anesthetics: Ropivacaine 0.5 % Total Volume (ml): 35 Peripheral Nerve Block: Patient Position: sitting Sterile Prep:Betadine, Mask and Sterile gloves Monitoring:EKG, continuous p ulse oximetry and blood pressure monitoring Procedures:ultrasound guided Local Infiltration: Lidocain e 1% Laterality: right Ultrasound: Ultrasound used for needle p lacement, Permanent image stored, The nerve structure appeared normal, if not explain in comment, US was used to visualize the spread of anesthestic, The U/S image did not reveal any readily apparent pathological abnormalities; if not, explain in comments, Patient agrees to proceed, , Needle:insulated Needle Gauge:21 G Needle Length:2 in Bolus Via:needle Bolus given as slow fraction ated injection:Yes Blood aspirated:No Paresthesias: No Bleeding at site:No Complications: none Attestations:I personally pe rformed the procedure. documented in this encounter Visit Diagnoses Not on filedocumented in this encounter Administered Medications Inactive Administered Medications - up to 3 most recent administrations Medication Order MAR Action Action Date Dose Rate Site ceFAZolin (aka ANCEF) 2 g in Given 10/02/2017 10:03 AM SERVICE MANAGER 2 g dextrose 100 ml IVPB 2 g, Intravenous, Administer over 30 Minutes, ONCE, On Yadira 10/02/17 at 0930, For 1 dose, Infuse within 60 minutes prior to incision; Re-dose 1 gram IV every 4 hours after initial dose until incision closed., Pre-op dexamethasone (aka DECADRON) injection Given 10/02/2017 10:19 AM SERVICE MANAGER 4 mg Intravenous, Starting on Yadira 10/02/17 at 1019 lactated ringers infusion Started 10/02/2017 10:36 AM SERVICE MANAGER Intravenous, at 30 mL/hr, CONTINUOUS, Starting on Yadira 10/02/17 at 0930, Pre-op Started 10/02/2017 9:38 AM SERVICE MANAGER lidocaine 2% PF (XYLOCAINE) injection Given 10/02/2017 10:12 AM SERVICE MANAGER 80 mg Intravenous, Starting on Yadira 10/02/17 at 1012, Until Yadira 10/02/17 at 1134 midazolam (aka VERSED) injection Given 10/02/2017 11:09 AM SERVICE MANAGER 1 mg Intravenous, Starting on Yadira 10/02/17 at 1003 Given 10/02/2017 10:25 AM SERVICE MANAGER 1 mg Given 10/02/2017 10:03 AM SERVICE MANAGER 2 mg ondansetron (ZOFRAN) injection Given 10/02/2017 11:16 AM SERVICE MANAGER 4 mg Intravenous, Starting on Yadira 10/02/17 at 1116, Until Yadira 10/02/17 at 1134 phenylephrine-NaCl 0.9% 100 mcg/mL syringe Given 10/02 10:52 AM SERVICE MANAGER 100 mcg (aka SARAH-SYNEPHRINE) Starting on Yadira 10/02/17 at 1041 Given 10/02/2017 10:45 AM SERVICE MANAGER 100 mcg Given 10/02/2017 10:41 AM SERVICE MANAGER 50 mcg propofol (aka diPRIvan) Started 10/02/2017 10:12 80 mcg/kg/min 28. 94 mL/hr injection AM SERVICE MANAGER Intravenous, Starting on Yadira 10/02/17 at 1012 propofol (aka diPRIvan) injection Given 10/02/2017 11:09 AM SERVICE MANAGER 20 mg Intravenous, Starting on Yadira 10/02/17 at 1109 documented in this encounter Care Teams Patient Biller Relationship Specialty Start Date End Date Britney Jarrett MD PCP - General 04/04/161999 [place] [address] documented as of this encounter
--- OUTSIDE RECORDS SUMMARY | 2022-04-23 15:34 | XMS_ITS | Encounter Summary ---
:1970 Author Organization [employer] Address [address] [place] [address] Care Team Providers Name Role Phone Britney Jarrett MD Primary Care Provider Reason for Visit Reason Comments Paperwork off work statement Encounter Details Date Type Department Care Team Description 09/17/2017 Notes/Orders [facility] Terrell Velasquez MD [address] [facility] [address] [place] [address] [place], [place] [address] [place] [address] [phone] (Wo rk) Social History Tobacco Use Types [...] documented as of this encounter Progress Notes Megan Mckeon RN - 09/17/2017 11:59 AM CST Patient's employer wanted note for dates patient will be off work. Note faxed to Hanna Casper at [phone]. Patient will be off from October 02- October 24. Her surgery is October 02. Patient was notified it was faxed. [employer] documented in this encounter Plan of Treatment Not on filedocumented as of this encounter Visit Diagnoses Not on filedocumented in this encounter Care Teams Abstract Writer Relationship Specialty Start Date End Date Britney Jarrett MD PCP - General 04/04/161999 [place] [address] documented as of this encounter
--- OUTSIDE RECORDS SUMMARY | 2022-04-23 15:34 | XMS_ITS | Encounter Summary ---
:1970 Author Organization [employer] Address [address] [place] [address] Care Team Providers Name Role Phone Britney Jarrett MD Primary Care Provider Reason for Visit Reason Comments Physical Therapy Encounter Details Date Type Department Care Team Description 10/21/2017 Office Visit [facility] Cathi Carbone, Afterboubacar e following surgery of the musculoskeletal system (Primary Dx); Center, Physical PT Pain in joint of right shoulder Therapy [address] [place] [id number] Social History Tobacco Use Types Packs/Day Years [...] documented as of this encounter Progress Notes Cathi Carbone, PT - 10/21/2017 10:45 AM CDT [facility] Physical Therapy Daily Note Visit Number: 2 [employer] [place]: 2 of 40 ?? Initial Certification Period: 10/15/2017 to 01/13/18 Referring Provider: Terrell Mccarthy Diagnosis: Chronic R shoulder pain Date of Surgery: 10/02/17 Surgical Procedure: 1.?Right shoulder arthroscopic biceps tenodesis. 2.?Right shoulder arthroscopic distal clavicle excision. 3.?Right shoulder extensive further debridement of the glenohumeral joint, including debridement of calcific focus from the supraspinatus. 4.?Right shoulder arthroscopic subacromial decompression, with bony acromioplasty. Orders: Evaluate & treat Precautions/Contraindications: Post-op plan: 1.?The patient will be discharged to home today on oral analgesics. ?? 2.?She should have Codman exercises, but no other active or passive rangeof motion at this time. 3.?At the 2-week hansel, she will begin gentle progressive 4-quadrant stretching. 4.?Total sling time will be 4 weeks. 5.?Between 4 and 12 weeks, she will be limited to a 10-pound lifting restriction. 6.?At 2 months, she will have unrestricted 4-quadrant stretching, periscapular stabilization and strengthening. ??Radiographs will also be obtained at that visit. ?? Comments in PT order: Gentle, progressive four quadrant stretching. No strengthening or resistive. Ok to remove sling and being ADLs on 10/30. ?? Date of Onset: Years of shoulder pain Standardized Functional Scores: QuickDash: 73% on ADL section (higher scores represent greater disability) History: Josie Booker is a 47 y.o. female who presents nearly 2 weeks s/p R shoulder scope with biceps tenodesis. Patient reports shoulder is doing well. She just had follow up with Dr. Mccarthy yesterday and he adjusted her pain medications and this has helped a lot. Pain was so severe and uncomfortable that she felt like she wanted to cut her arm off. She was having a lot of pain into the shoulder with it feeling like blood was pooling into elbow. She has been struggling with having numbness/tingling into her hand. Her first two fingers are numb all the time, sometimes her thumb is involved aswell. She reports that Dr. Mccarthy reports that pain she is experiencing are all normal. She is sleeping ok - cannot wait to get sling off. Today was the first day things have felt better since surgery.She is taking off the sling to rest throughout the day and has been doing her pendulums 3-4 times a day and these hurt so good. ?? Patient has hx of chronic neck and back pain - hx of fusions in neck and back. 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 She is currently getting PT for her neck and back once every 2 weeks at [facility]- focus on muscle massage. Was diagnosed with irreversible arthritic disease at [facility] this July. She was told that her body holds more calcium and that she should focus her strengthening more on function vs. Previous levels of strengthening as a weight trainer. ?? 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 Patient???s Therapy Goals: Return to lifting if she can and return to functional tasks and mobility without limitations. ?? SUBJECTIVE: Pain: Pain was an 8/10 yesterday, better today. Patient Report: Patient had a tough weekend due to shoulder pain. She is having difficulty with pressure at the elbow. Her fingers are still numb. She really feels that her symptoms are coming from thesling. She had a massage since last visit and this helped a little. HEP went well OBJECTIVE: Today???s Findings: Shoulder PROM: Flexion: 95 Abduction: 56 (from previous) IR: To stomach ER: 5 past neutral Flexibility: Upper traps: Tight on R Strength: Deferred Palpation: TTP at incision sites TREATMENT TODAY: Therapeutic Exercise (CPT 11536) x 15 minutes: Patient was instructed on exercises, cued for proper technique, and given hand outs for exercises added to home program. ?? Access Code: [email or web address] ?? Exercises Standing Shoulder External Rotation Stretch in Doorway Seated Shoulder Flexion Towel Slide at Table Top ADDED Standing shoulder flexion stretch at wall Supine shoulder ER AAROM with dowel Self mobilization of upper traps and posterior RC with lacrosse ball Cross body stretch Verbal review of remaining HEP: Seated Upper Trapezius Stretch Seated Scapular Retraction Median Nerve Flossing with just elbow and wrist motion. Standing Elbow Flexion Extension AROM Seated Forearm Supination Pronation - cues to avoid end range supination stretching ?? Manual therapy, 1 or more regions (CPT 69990) x 15 minutes: Utilized for the purpose of increasing joint mobility, range of motion, and decreasing pain and soft tissue restrictions. ?? PROM to R shoulder in flexion, ER IASTM to common wrist extensor tendon Hot Pack (CPT 29480): Moist hot pack applied to upper traps to facilitate decreased muscle tightnessand decreased pain Timed Code Treatment Minutes: 30 Total Treatment Minutes: 45 ASSESSMENT: Patient returns to PT this date with minimal progress in R shoulder pain. Patient is 2.5 weeks s/p Rshoulder arthroscopy with biceps tenodesis. She continues to demonstrate significant difficulty withradicular pain into her R UE with numbness into her fingers. Muscle tightness secondary to good compliance of wearing the sling is significantly increased this date contributing to her increased pain. Patient responds well to manual therapy techniques and progression in 4-quadrant stretching. PLAN: Continue per protocol and progress 4-quadrant stretching as tolerated. EXPECTED FUNCTIONAL OUTCOMES/GOALS: ONGOING HEP/Independent Management: Demonstrate independence with HEP and self- management following each treatment session ADL's: Resume previous sleep pattern without awakening due to symptoms in 3-4 weeks. [place] hair and face in 6 weeks. Dress, including don and doff shirt and pants with ease in 5-6 weeks. Reach overhead to cupboards with ease in 8 weeks. Driving: Use affected upper extremity for driving in 5 weeks. Work: Return to work full duty as a teacher in 5 weeks. Sports/Leisure: Return to prior level of leisure or recreational activities, including strength and cardio training without an increase in symptoms or limitations in 14 weeks. Outcomes: Improve Functional outcome score to at least </= 15% in 14 weeks. Therapist: Cathi Carbone, JARET 10:54 AM 10/21/2017 documented in this encounter Plan of Treatment Not on filedocumented as of this encounter Visit Diagnoses Diagnosis Aftercare following surgery of the muscu loskeletal system - Primary Aftercare following surgery of the muscu loskeletal system, NEC Pain in joint of right shoulder Pain in joint, shoulder region documented in this encounter Care Teams Furnace Tender Relationship Specialty Start Date End Date Britney Jarrett MD PCP - General 04/04/161999 [place] [address] documented as of this encounter
--- OUTSIDE RECORDS SUMMARY | 2022-04-23 15:34 | XMS_ITS | Encounter Summary ---
:1970 Author Organization [facility] Address [address] [place] [address] Care Team Providers Name Role Phone Britney Jarrett MD Primary Care Provider Reason for Referral Therapies (Routine) - Closed Specialty Diagnoses / Procedures Referred By Contact Refer red To Contact Diagnoses Chronic right shoulder pain Terrell Mccarthy MD [address] [place] [phone] Referral ID Status Reason Start Date Expiration Date Visits Requ ested Visits Authorized [id number] Closed 10/14/2017 12/13/2017 1 1 Scheduling Instructions Your provider has recommended an appoint ment with [facility]. You may call [phone] to schedule your appoi ntment. If you do not schedule an appointment within the next 1 to 3 business days, we will call you to help arrange your appointment. We suggest you call your [facility] insurance company about your coverage and benefits for this appointment. Reason for Visit Reason Comments Post Op Exam Encounter Details Date Type Department Care Team Description 10/14/2017 Office Visit [facility] Terrell Mccarthy Upper Cutter Machine [facility] shoulder pain [address] [facility] [address] [facility] (Primary Dx) [place] [address] [place], [place] [phone] (Wo rk) Social History Tobacco Use Types [...] encounter Progress Notes Terrell Mccarthy MD - 10/14/2017 1:00 PM CDT Doing well. Off pain meds Sens GILT Ax Incisions C/D/I Sets Delt Warm/WP hand wiggles fingers Plan: Advance per op report. Refill pain meds PRN Using neurontin and advil. documented in this encounter Plan of Treatment Scheduled Referrals Name Type Priority Associated Diagnoses Order S [facility] Physical Therapy Referral Routine Chronic right shoulder p ain Ordered: 10/14/2017 documented as of this encounter Visit Diagnoses Diagnosis Chronic right shoulder pain - Primary Pain in joint, shoulder region documented in this encounter Care Teams Editing Intern Relationship Specialty Start Date End Date Britney Jarrett MD PCP - General 04/04/161999 [place] [address] documented as of this encounter
--- OUTSIDE RECORDS SUMMARY | 2022-04-23 15:34 | XMS_ITS | Encounter Summary ---
:1970 Author Organization [employer] Address [address] [place] [address] Care Team Providers Name Role Phone Britney Jarrett MD Primary Care Provider Reason for Visit Reason Comments Questions FOLLOWING PAIN CONSULT Encounter Details Date Type Department Care Team Description 11/07/2017 Telephone [facility] Terrell Mccarthy, Talisha price (FOLLOWING CENTER MD PAIN CONSULT) [address] [place] [address] [address] [place] [address] [place], [place] [phone] (Wo rk) Social History Tobacco Use Types [...] encounter Nursing Notes Megan Mckeon RN - 11/07/2017 11:51 AM CDT Patient had many questions regarding her shoulder, her neck, tightness and spasm with activities, and advice from the pain clinic. Discussed all her symptoms and it was felt to return to Dr. Mccarthy to have discussion, was best solution. Patient was scheduled for appointment for discussion. documented in this encounter Plan of Treatment Not on filedocumented as of this encounter Visit Diagnoses Not on filedocumented in this encounter Care Teams Rn Team Leader Relationship Specialty Start Date End Date Britney Jarrett MD PCP - General 04/04/16[address] [place] [address] documented as of this encounter
--- OUTSIDE RECORDS SUMMARY | 2022-04-23 15:34 | XMS_ITS | Encounter Summary ---
:1970 Author Organization [facility] Address [address] [place] [address] Care Team Providers Name Role Phone Britney Jarrett MD Primary Care Provider Reason for Visit Reason Comments CONSULT Consult/Transfer Care (Routine) - Closed Specialty Diagnoses / Procedures Referred By Contact Refer red To Contact Diagnoses S/P shoulder surgery Terrell Mccarthy MD [address] [place], [place] [address] Referral ID Status Reason Start Date Expiration Date Visits Requ ested Visits Authorized [id number] Closed 10/21/2017 01/20/2019 1 1 Encounter Details Date Type Department Care Team Description 10/24/2017 Initial Consult [facility] Cristal Be, NURSE INSTRUCTOR, RESEARCH EDITOR [address] [place] [phone] Right hand paresthesia (Primary Dx); [address] M[address] Nielsen [place] [address] Social History Tobacco Use Types Packs/Day [...] Sign Reading Time Taken Comments Blood Pressure 116/78 10/24/2017 8:43 AM CDT Pulse - - Temperature - - Respiratory Rate - - Oxygen Saturation - - Inhaled Oxygen Concentration - - Weight 57.6 kg (127 lb) 10/24/2017 8:43 AM CDT Height 152.4 cm (5') 10/24/2017 8:43 AM CDT Body Mass Index 24.8 10/24/2017 8:43 AM CDT documented in this encounter Patient Instructions Patient InstructionsCristal Be, NURSE INSTRUCTOR, RESEARCH EDITOR - 10/24/2017 8:40 AM CDT 1. Investigations: No further testing needed. 2. Consults: no new consultations recommended at this time 3. Interventions: If numbness and tingling persists after you discontinue your sling, you could consider a cervical epidural steroid injection.( I would like Dr. Mccarthy to approve this since the steroid could impede healing). We will hold off on this intervention at this time. An educational video on common pain conditions and pain clinic procedures is available on the [facility] web site by searching Pain Program Procedures. 4. Medications: -- Lidocaine 4% patches are available over the counter. They can be worn on for 12 hours and off for12 hours. There are several brands available. --Nerve Membrane stabilizers Continue gabapentin and consider increasing dosage as below if needed Gabapentin Titration Week AM Dose Mid-day Dose PM Dose 1 - - 300mg 2 300mg - 300mg 3 300mg 300mg 300mg 4 300mg 300mg 600mg The risks and benefits of starting this new medications were discussed, in detail, with the patient.We specifically spoke about the potential for sedating side effects and the dangers associated with sedation. The patient was counseled not to drive a motor vehicle until after they were familiar with how the medication impacted attention and reaction. --NSAIDs: Continue ibuprofen or Arthotec as current --Tylenol: Do not underestimate the utility of this class of medication when used in conjunction with the rest of this plan. Tylenol, 1000mg up to every 8 hours as needed for pain. --Muscle Relaxant: This medication class can be habit forming and sedating; typically is not used for classification inspector pain management. In the short term, however, we will continue flexeril 1-2 times a day. --Supplements: -Start magnesium glycinate 400mg daily for mild to moderate muscle relaxant properties and synergy with prescription pain medications. This can most readily found at [employer] or via [employer]. This supplement does not require a prescription and is very low risk. --Opioids: In the [facility], we adhere to federal recommendations and do not prescribe fpc opioids for chronic non-cancer pain. 5. Physical Therapy: The patient was made aware that our pain program emphasizes an interdisciplinary approach to comprehensive pain management; at this time, based on the patient???s presentation, physical therapy would likely improve the patient???s pain constellation- continue PT 6. Caring for you: The patient was made aware that our pain center emphasizes an interdisciplinary approach to comprehensive pain management; She was informed that we have access to a pain psychologist, specializing in behavioral techniques to improve pain control If she believes she would benefit from exploring this therapy, referral will be provided at that time. 7. Integrative Health: Information offered on the [facility] Integrative Health Program which focuses on holistic approaches to health care focusing on the mind, body and spirit. Living Well consults, Healing touch, Pilates, Yoga, massage therapy and acupuncture are all available at [facility]. Call [phone] to schedule. 8. Follow Up: as needed documented in this encounter Progress Notes Cary Lyons RN - 10/24/2017 8:40 AM CDT THERMOPLASTIC TECHNICIAN 10/24/17 Karmen Ferrara RN - 10/24/2017 8:40 AM CDT Patient here for pain consult. She rates her right shoulder and arm pain 5/10 at rest and 8/10 when arm bent (in sling). She complains of numbness in 3 fingers on right hand ristal Stevens APRN, AGUSTIN - 10/24/2017 8:40 AM CDT Subjective: Thank you for the opportunity to see your patient, Josie Booker at the [facility]. She wasseen by Cristal Be CNP . Documents reviewed prior to seeing the patient included notes by Dr. Mccarthy. I also personally reviewed the patient-completed new patient questionnaire which has been imaged in to [facility]. As you know Josie Booker is a 47 y.o. female who presents to our clinic with Chief Complaint Patient presents with ??? CONSULT . Josie presents to the pain program with a chief complaint of numbness and tingling in half of the thumb, the entire 1st and 2nd fingers of the right hand. The numbness extends up just past her wrist. She is status post recent right shoulder surgery performed by Dr. Wilks 10-02-17. Her history is significant for C6-C7 ACDF. She started to have some numbness in her fingers prior to her shoulder surgery. Since the shoulder surgery however, the numbness has progressed from intermittent to constant. This numbness was evaluated by her spine surgeon at [facility] earlier this year. Carpal tunnel was considered but an EMG was performed in July and was normal. Her most recent imaging of her cervical spine was performed in July 2017 which does show right-sided C6 nerve impingement. Her symptoms appear more in the C7 dermatomal distribution, though we discussed some individual variability in dermatomes. At this time she continues to wear a sling but the sling comes off next week. She is not having any symptoms of complex regional pain syndrome such as temperature change, color change, swelling,allodynia or hyperalgesia. She is currently in physical therapy both for her shoulder at [facility] and for her neck at another facility. In addition to her chronic neck pain she also has chronic low back pain and is status post lumbar fusion. She recently had a workup for lumbar rhizotomy but failed to have pain relief during the anesthetic phase of the medial branch blocks so did not proceed. She has had epidural steroid injections into her low back and neck before, but none recently. She plans to have a rhizotomy workup for her cervical spine in January at [facility]. Ultimately, the patient was referred by Dr. Baum for the numbness and tingling to our pain management center for further evaluation and optimization. HPI and Pain Description: The pain is Tingling and located in the right shoulder with tingling in theright hand. The pain doesnot radiate. The pain is persistent with severe pain attacks. The worst pain score over the last week was 8. (Pain in her shoulder) The lowest pain score over thelast week was 3. The average pain score over the last week was 5. Aggravating factors include The tingling in her fingers has been made worse by having her arm in a sling. This also exacerbated some myofascial pain in the right trapezius area . Relieving factors include Her symptoms are better when she straightens out her arm. Other Symptoms: The patient does endorse numbness, does endorse weakness, does not endorse bladder dysfunction,does not endorse bowel dysfunction, does not endorse chills, fever and/or night sweats, does not have unintended weight loss. The patient does not endorse allodynia. Psychosocial Factors: The patient describes her mood as good. She does not have suicidal ideation. Her sleep has been affected by the pain. She is able to do their ADL's. She is employed. 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 She is currently on leave because of her shoulder surgery. There is not pending litigation related to the presenting pain condition. She is not on SSDI. Specialists Seen: The patient was referred by Dr. Mccarthy. Other providers seen for this condition include: neurosurgeon. At [facility] The patient does not have a controlled substance contract with another provider. Investigations Performed and Pertinent Image Review by Date: MRI- [facility] portal I personally reviewed the available images EXAM: MRI OF THE CERVICAL SPINE WITHOUT CONTRAST CLINICAL INFORMATION: 47-year-old female with bilateral neck pain. Tingling sensation extending downthe arms. History of prior cervical fusion surgery in 2009. TECHNICAL INFORMATION: Sagittal T1, T2, STIR, sagittal MPGR, axial MPGR and axial long TR/long TE noncontrast images. COMPARISON: CT cervical spine dated 08/25/2015. INTERPRETATION: Normal cervical lordotic alignment. No osseous lesion or fracture. Benign vertebral hemangioma at T1. No cord lesion. Normal craniocervical junction. At C7-T1, normal dorsal disc margin with patent central canal and neural foramina. Normal facet joints. At C6-C7, solid ACDF with no central stenosis or foraminal nerve impingement. Normal facet joints. At C5-C6, moderate severe disc degeneration with central and slightly right- sided disc bulge effacing the thecal sac without cord compression. Moderate right foraminal narrowing with disc encroaching on the right C6 nerve. Patent left nerve root canal. At C4-C5, moderate spondylosis/disc degeneration with bulge and osteophyte nearly abutting the cord without stenosis or compression. Accompanying uncinate spurring contributes to moderate bilateral foraminal stenosis. Mild bilateral facet arthropathy. At C3-C4, 2 mm midline disc protrusion indents the thecal sac without cord compression. Foramina arepatent. Moderate right facet arthropathy. At C2-C3, Small midline protrusion with widely patent central canal and neural foramina. Normal facet joints. At C1-2, normal facet joints and ligamentous structures. No compression at the cervicomedullary junction. Sections through the upper thoracic spine demonstrate mild superior endplate deformity at T2 may be developmental or old posttraumatic. No disc herniation or cord compression. CONCLUSION: 1. Right lateralizing bulge and osteophyte at C5-6 with uncinate spurring causes moderate foraminal narrowing with encroachment on the right C6 root. 2. Bulge and osteophyte at C4-5 with moderate bilateral foraminal narrowing and no focal neural compression. 3. Spondylitic ridging nearly abuts the cord at C4-5 and C5-C6, but no cord compression at any cervical level. 4. Solid C6-7 ACDF with no recurrent stenosis or neural impingement. 5. No inflammatory facet arthropathy. Pain Medications Trialed: Opioids: Ultram NSAIDs: ibuprofen, Tylenol, Arthrotec TCA/SNRIs: none Stabilizers: gabapenin (Neurontin) Muscle Relaxers: cyclobenzaprine (Flexeril) Other Medications: Lidocaine patch/topical Current Pain Medications: Ibuprofen 800 mg as needed, hydrocodone one half tablet twice a day p.r.n., Flexeril 1 tablet twice a day as needed, lidocaine patches, gabapentin 100 mg at night Other Medications Outpatient Medications Prior to Visit Medication Sig Dispense Refill ??? gabapentin (NEURONTIN) 100 MG capsule Take 3 Caps by mouth at bedtime as needed for Other (pain)for up to 10 doses. 30 Cap 2 ??? MULTIPLE VITAMIN TABS Take 1 tablet by mouth once a day 30 prn ??? Multiple Vitamins-Minerals (MULTIVITAMIN OR) Take 1 tablet by mouth daily (every 24 hours). ??? Probiotic Product (SUPER PROBIOTIC OR) ??? Specialty Vitamins Products (WOMENS NORRIS PAT OR) ??? traMADol (ULTRAM) 50 MG tablet Take 1 Tab by mouth every 6 hours as needed. (Patient not taking:Reported on 10/24/2017) 30 Tab 0 ??? cyclobenzaprine (FLEXERIL) 10 MG tablet Take 10 mg by mouth three times a day as needed for Muscle Spasms. ??? ondansetron (ZOFRAN-ODT) 4 MG disintegrating tablet Take 1 Tab by mouth every 8 hours as needed.16 Tab 0 No facility-administered medications prior to visit. The patient is not systemically anticoagulated. Allergies: No Known Allergies Noninterventional Techniques: physical therapy, Chiropractic manipulation (NUCCA), TENS unit She has been educated on behavioral techniques to reduce pain at [facility] Interventional Techniques Employed: Epidural Steroid Injections these event performed at [facility] on both her low back and neck. She recently had a workup for radiofrequency ablation of her lumbar facet joints. However the medial branch blocks were not effective so this was not pursued. She is scheduled in January to have the same workup done for her neck. Past Medical History: Past Medical History: Diagnosis Date ??? Calcific tendinitis of left shoulder 03/17/2017 ??? Calcific tendonitis, right shoulder 08/26/2016 ??? Normal delivery 1993 [place] [address] ??? Normal delivery 1996 Marianne ??? PONV (postoperative nausea and vomiting) Past Surgical History: Past Surgical History: Procedure Laterality Date ??? ADENOIDECTOMY PRIMARY; UNDER AGE 10 ??? BACK SURGERY 1985 lumbar fusion for spondylolisthesis ??? BX BREAST; PERQ W/O GUID -SEP PROC 1997 R breast-benign ??? CERVICAL SPINE SURGERY 2008 Fusion of C6-7 ??? MAMMAPLASTY MAR; W/PROSTHETIC IMPL 1999 ??? NEUROPLASTY; MEDIAN CARPAL TUNNEL 12/1995 R ??? NEUROPLASTY; MEDIAN CARPAL TUNNEL 05/1996 L ??? SHOULDER SURGERY Right 10/02/2017 bone spur removed,removed calcifications ??? SURGERY CONSULT-ADULTS 1985 back-spondylolysthesis with fusion ??? TONSILLECT PRIM/SEC; UNDER AGE 10 Family History: Family history is noncontributory for pain or substance abuse disorders Social History: Social History Social History ??? Marital status: Spouse name: Juan[employer] ??? Number of children: 2 ??? 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 Smoking status: Never Smoker ??? Smokeless tobacco: Never Used ??? Alcohol use Yes Comment: rare ??? Drug use: No ??? Sexual activity: Yes Partners: Male control/ protection: Surgical Comment: -vasectomy Other Topics Concern ??? Not on file Social History Narrative Prescription Monitoring Program Report: As I am helping to treat this patient's clinically significant pain and considering medication options as part of a broader management scheme, I personally reviewed the patient's up-to-date THERMOPLASTIC TECHNICIAN report for [place], as well as any other pertinent, available states. This did reveal consistency with our records. I did not appreciate any concerning behavior or suspicious patterns in the patient's prescription history. I used this information while constructing a tailored treatment plan, considering risks and benefits of treatment, non- treatment and alternative treatment regarding opioid pain medications and other controlled substances. Psychiatric History: no established psychiatric history Review of Systems: 05/17 systems were reviewed and are negative except where noted in the HPI or here: A comprehensive review of systems was negative. Pertinent Labs/Test Results and Dates: No results found for: CREATININE No results found for: ALKPHOS, BILIRUBINTOT, BILIRUBINTOT, BILIRUBINTOT, POCBILIRUBIN, BILIRUBINDIR,BILIRUBINDIR, BILIRUBINDIR, TPRO, TPRO, ALB, AST, ALT, ALT, ALT Lab Results Component Value Date/Time Platelets 300 12/12/2005 1607 Platelets 256 04/02/2004 1345 Platelets 274 12/13/1997 1026 No results found for: INR, LABPROT, PROTIME Objective BP 116/78 Ht 1.524 m (5') Wt 57.6 kg (127 lb) BMI 24.8 kg/m2 Estimated body mass index is 24.8kg/(m^2) as calculated from the following: Height as of this encounter: 1.524 m (5'). Weight as of this encounter: 57.6 kg (127 lb). Appearance: Grooming: appropriate Level of Distress: NAD Assistive Devices: none Physical Exam: General: No apparent distress HEENT: Pupils equal and round, nasopharynx clear, oropharynx clear Resp: Non-labored breathing Heart: Regular rate Abdomen: Non-distended Psych: Oriented; appropriate affect and insight, non-pressured speech Skin: No rashes or lesions appreciated on exposed skin Neuromuscular Exam: Upon initial assessment, the patient is seated in a comfortable position. Rises from a seated position without difficulty. Upon inspection there is not evidence of scoliosis. Exam for symmetry and allignment reveals no abnormalities. Muscle bulk appears adequate. There is not evidence of erythema, edema in the extremities. Palpation of the neck and shoulder muscles does reveal tenderness. Active ROM exam does reveal limited range of motion of the cervical spine. Limited range of motion of the right shoulder in this postoperative period ROM is grossly intact at the elbow, wrist, and thoracic spine. Motor strength exam reveals: Wrist extension R 5/5, L 5/5 Wrist flexion R 5/5, L 5/5 Finger abduction R 5/5, L 5/5 Sensory exam is intact grossly in the upper extremities- except for patient reporting decreased sensation to light touch in the medial aspect of the right thumb right forefinger and right middle finger. The sensory disturbance extends up to just past her right wrist in the medial aspect. Assessment: Josie is a 47 y.o. year-old female with: 1. Paresthesias in the right hand-likely cervical radicular in nature. Josie reports having these paresthesias prior to her recent shoulder surgery, though the symptoms have been exacerbated by wearinga shoulder harness. EMG performed at [facility] in July 2017 for this issue was normal per patient report. Her symptoms follow a dermatomal distribution and recent cervical MRI shows impingement of the right C6 nerve. The fingers involved however are in the C7 dermatomal distribution, though we discussed some individual variability in dermatomes. She will stop wearing her arm sling next week Asha am hopeful that the symptoms will subside with time and physical therapy. (She is in PT for both neck and shoulder). During the next few weeks she may increase her gabapentin to treat her symptoms. Should the numbnessand tingling persist despite time and discontinuation of the sling a future treatment option is a cervical epidural steroid injection. Continue PT. Plan: 1. Investigations: No further testing needed. 2. Consults: no new consultations recommended at this time 3. Interventions: If numbness and tingling persists after you discontinue your sling, you could consider a cervical epidural steroid injection.( I would like Dr. Mccarthy to approve this since the steroid could impede healing). We will hold off on this intervention at this time. An educational video on common pain conditions and pain clinic procedures is available on the [facility] web site by searching Pain Program Procedures. 4. Medications: -- Lidocaine 4% patches are available over the counter. They can be worn on for 12 hours and off for12 hours. There are several brands available. --Nerve Membrane stabilizers Continue gabapentin and consider increasing dosage as below if needed Gabapentin Titration Week AM Dose Mid-day Dose PM Dose 1 - - 300mg 2 300mg - 300mg 3 300mg 300mg 300mg 4 300mg 300mg 600mg The risks and benefits of starting this new medications were discussed, in detail, with the patient.We specifically spoke about the potential for sedating side effects and the dangers associated with sedation. The patient was counseled not to drive a motor vehicle until after they were familiar with how the medication impacted attention and reaction. --NSAIDs: Continue ibuprofen or Arthotec as current --Tylenol: Do not underestimate the utility of this class of medication when used in conjunction with the rest of this plan. Tylenol, 1000mg up to every 8 hours as needed for pain. --Muscle Relaxant: This medication class can be habit forming and sedating; typically is not used for classification inspector pain management. In the short term, however, we will continue flexeril 1-2 times a day. --Supplements: -Start magnesium glycinate 400mg daily for mild to moderate muscle relaxant properties and synergy with prescription pain medications. This can most readily found at [employer] or via [employer]. This supplement does not require a prescription and is very low risk. --Opioids: In the [facility], we adhere to federal recommendations and do not prescribe fpc opioids for chronic non-cancer pain. 5. Physical Therapy: The patient was made aware that our pain program emphasizes an interdisciplinary approach to comprehensive pain management; at this time, based on the patient???s presentation, physical therapy would likely improve the patient???s pain constellation- continue PT 6. Caring for you: The patient was made aware that our pain center emphasizes an interdisciplinary approach to comprehensive pain management; She was informed that we have access to a pain psychologist, specializing in behavioral techniques to improve pain control If she believes she would benefit from exploring this therapy, referral will be provided at that time. 7. Integrative Health: Information offered on the [facility] Integrative Health Program which focuses on holistic approaches to health care focusing on the mind, body and spirit. Living Well consults, Healing touch, Pilates, Yoga, massage therapy and acupuncture are all available at [facility]. Call [phone] to schedule. 8. Follow Up: as needed documented in this encounter Plan of Treatment Not on filedocumented as of this encounter Visit Diagnoses Diagnosis Right hand paresthesia - Primary Disturbance of skin sensation Cervical radiculopathy Brachial neuritis or radiculitis nos documented in this encounter Care Teams Career Development Coordinator/Teacher Relationship Specialty Start Date End Date Britney Jarrett MD PCP - General 04/04/161999 [place] [address] documented as of this encounter
--- OUTSIDE RECORDS SUMMARY | 2022-04-23 15:34 | XMS_ITS | Encounter Summary ---
:1970 Author Organization [facility] Address [address] [place] [address] Care Team Providers Name Role Phone Britney Jarrett MD Primary Care Provider Encounter Details Date Type Department Care Team Description 10/02/2017 Hospital Encounter [facility] Terrell Mccarthy, [address] [facility] Kevin trevizo MD [place], [place] [address] [address] [facility] [phone] [place] [address] (Wo rk) Social History Tobacco Use Types [...] Sign Reading Time Taken Comments Blood Pressure 108/62 10/02/2017 1:00 PM BOX OFFICE MANAGER Pulse 108 10/02/2017 1:00 PM BOX OFFICE MANAGER Temperature 36.7 ??C (98 ??F) 10/02/2017 1:35 PM BOX OFFICE MANAGER Respiratory Rate 14 10/02/2017 1:00 PM BOX OFFICE MANAGER Oxygen Saturation 96% 10/02/2017 1:00 PM BOX OFFICE MANAGER Inhaled Oxygen Concentration - - Weight 60.3 kg (133 lb) 10/02/2017 9:00 AM BOX OFFICE MANAGER Height 150.5 cm (4' 11.25) 10/02/2017 9:00 AM BOX OFFICE MANAGER Body Mass Index 26.64 10/02/2017 9:00 AM BOX OFFICE MANAGER documented in this encounter Discharge Instructions Discharge InstructionsGeorgia Vang RN - 10/02/2017 11:49 AM CST Discharge Information The following was provided to the patient - Instruction sets: Caring for yourself after Shoulder Arthroscopy Collateral information: Anesthesia - Regional Deep Vein Thrombosis How to prevent and treat constipation after surgery Recover Well Understanding Pain Shoulder Pendulum Exercises Patient take-homes: Cryocuff Ultrasling You may discontinue the dressing on POD #4. The water can run right over the sticky tapes underneaththe dressing. You should wear your sling at all times except for showering and doing exercises. You should do Codman's (Pendulum) exercises. Please do these twice per day. You may take NSAIDs (Advil, Aleve, ibuprofen, naproxen, tylenol, acetaminophen) if needed for pain. Your follow-up appointment should have been made when you scheduled the surgery. Please contact Dr. Mccarthy's office where you saw him pre-operatively for further details. OFFICE MANAGER documented in this encounter Medications at Time of Discharge Medication Sig Dispensed Refills Start Date End Date Probiotic Product (SUPER 0 PROBIOTIC OR) cyclobenzaprine (FLEXERIL) Take 10 mg by 0 10/24/2017 10 MG tablet mouth three times a day as needed for Muscle Spasms. gabapentin (NEURONTIN) 100 Take 3 Caps by 30 Cap 0 10/0210/14/2017 MG capsule mouth at bedtime as needed for Other (pain) for up to 10 doses. HYDROmorphone (DILAUDID) 2 Take 1-2 Tabs by 60 Tab 0 08/201710/14/2017 MG tablet mouth every 3 hours as needed. hydrOXYzine pamoate Take 1-2 Caps by 30 Cap 0 10/02/2017 10/14/2017 (VISTARIL) 25 MG capsule mouth three times a day as needed. ibuprofen (MOTRIN) 800 MG Take 1 Tab by 42 Tab 0 2 018 10/14/2017 tablet mouth every 8 hours as needed for Pain. MULTIPLE VITAMIN TABS Take 1 tablet by 30 0 04/02/20 04 04/24/2018 mouth once a day Multiple Vitamins-Minerals Take 1 tablet by 0 04/201004/24/2018 (MULTIVITAMIN OR) mouth daily (every 24 hours). Specialty Vitamins Products 0 03/08/2020 (WOMENS NORRIS PAT OR) documented as of this encounter Procedure Notes Terrell Mccarthy MD - 10/02/2017 12:00 PM CST NAME: JOSIE THOMASON MR#: [id number] CSN: [id number] AUTHENTICATING CLINICIAN: Terrell Mccarthy MD CONFIRM #: [id number] LOC: 725 OPERATIVE REPORT DATE OF OPERATION: 10/02/2017 : 1970 SURGEON: Terrell Mccarthy MD PREOPERATIVE DIAGNOSES: 1.Right shoulder calcific tendinitis of the supraspinatus. 2.Right shoulder symptomatic biceps tendon tendinitis. 3.Right shoulder symptomatic acromioclavicular joint arthritis. 4.Right shoulder subacromial bursitis. POSTOPERATIVE DIAGNOSES: 1.Right shoulder supraspinatus calcific tendinitis. 2.Right shoulder complex labral tearing, with biceps tendon scarring into the rotator interval, and tenosynovitis. 3.Right shoulder symptomatic acromioclavicular joint arthritis. 4.Right shoulder subacromial bursitis, with bony impingement. SURGICAL PROCEDURE: 1.Right shoulder arthroscopic biceps tenodesis. 2.Right shoulder arthroscopic distal clavicle excision. 3.Right shoulder extensive further debridement of the glenohumeral joint, including debridement of calcific focus from the supraspinatus. 4.Right shoulder arthroscopic subacromial decompression, with bony acromioplasty. ANESTHESIA: Interscalene blockade, plus sedation. ESTIMATED BLOOD LOSS: Less than 25 mL. IMPLANTS: A 1 x 6.25 mm BioComposite SwiveLock anchor in the biceps. INDICATIONS: Ms. Thomason is a very pleasant 47-year-old woman with history of pain and disability in her shoulder. She had an extensive trial of nonsurgical management, including activity modification, analgesics, and injections. After discussion of risks and benefits of surgical versus nonsurgical management, she elected to proceed with surgical remediation. DESCRIPTION OF PROCEDURE: The patient was positively identified in the preanesthesia care area, surgical site was initialed byme, and her consent was reviewed with her. She was then taken to the operative theater. She was placed in well-padded beach-chair position, prepped and draped in the usual sterile fashion for right upper extremity surgery. Prior to surgical initiation a time-out was held in accordance with hospital policy. Verbal verification of delivery of prophylactic intravenous antibiotics was performed. After establishment of a posterior viewing portal, an anterior interval portal was made under directvisualization. Diagnostic arthroscopy was then possible, with findings as follows: The upper portion of the subscapularis was intact. The pouch was synovitic, but devoid of loose bodies. Posterior cuff was intact. Superior cuff had less than 25%, partial-thickness, undersurface, articular-sided, rotator cuff tearing. The articular surface of the humerus and the glenoid was pristine.There was some mild fraying on the anterior superior labrum. The biceps tendon was densely inherently scarred into the rotator interval. This required actual dissection to separate it from the rotator interval contents. This was done with a shaver and an ablator. The biceps tendon was then tagged twice with 0 PDS sutures and amputated off the anterosuperior labrum. I debrided the anterior, superior, and posterior maria guadalupe. I debrided the contents of the rotator interval. I debrided between this labral construct and the supraspinatus, where there was also dense and adherent scarring. After this extensive arthro-debridement of the glenohumeral joint, I turned my attention to the subacromial space. Upon entering the subacromial space, massive and significant bursitis was encountered. I debrided this with a shaver and an ablator. Working through an anterolateral portal, I denuded the undersurface of the acromion of all soft tissues, including the CA ligament, and I used a motorized randy to resectan anterolaterally based wedge of bone from the undersurface of the acromion that tapered posteromedially until a type 1 acromial morphology was created. I verified from orthogonal views that this was indeed the case. I identified the calcific focus. I placed a probe in this. I was able to bring all of the calcium out that was visible, and it was the classic goop-like toothpaste consistency calcium in a calcific tendinitis focus. I copiously debrided this, but it did not require repair, as there was only a small fen estration. The rest of the removal proceeded by blunt dissection, pushing it out through the small fenestration. After this, I meticulously removed as much of the calcium as I could from the joint. I turned my attention to the biceps tenodesis. Viewing through the anterolateral portal, I made a low anterolateral portal under direct visualization. I brought the biceps tendon out through the low anterolateral portal after opening the transverse humeral ligament. A rotating retrograde migratory Krackow stitch was placed in the biceps tendon, and 3 cm of diseased tendon was removed. I placed the biceps tendon deep into a 6.5 mm drill hole in the inferior aspect of the bicipital groove, and held itwith a 6.25 mm BioComposite SwiveLock anchor. This effected an excellent biceps tenodesis. The rest of the contents of bicipital groove were denuded of all soft tissues using an ablator and a shaver. Viewing from posteriorly, the anterior, inferior, and posterior capsular constraints were removed from the acromioclavicular joint. The superior ligamentous structures were preserved. A motorized randy was used to resect the lateral aspect of the clavicle until a 1 cm resection was performed. I verified that I could see circumferential cortical bone and there was no anterosuperior or posterosuperior residual bone. All instruments were removed. Closure was with 3-0 interrupted Monocryl sutures. Steri-Strips and sterile nonadherent dressing applied. A sling was placed. POSTOPERATIVE PLAN: 1.The patient will be discharged to home today on oral analgesics. 2.She should have Codman exercises, but no other active or passive range of motion at this time. 3.At the 2-week hansel, she will begin gentle progressive 4-quadrant stretching. 4.Total sling time will be 4 weeks. 5.Between 4 and 12 weeks, she will be limited to a 10-pound lifting restriction. 6.At 2 months, she will have unrestricted 4-quadrant stretching, periscapular stabilization and strengthening. Radiographs will also be obtained at that visit. CC: ARTURO ODONNELL MD [address] [place] [id number] NIYAB:WILDER C: R:10/02/17 11:24 CONFIRM#:[id number] OFFICE MANAGER documented in this encounter Plan of Treatment Scheduled Orders Name Type Priority Associated Diagnoses Order S chedule POCT Glucose: Point of Care Routine Once today st arting now for 1 Occurrences s tarting 10/02/2017 unti l 10/02/2017 documented as of this encounter Procedures Procedure Name Priority Date/Time Associated Diagnosis Comme nts ARTHROSCOPIC EXCISION 10/02/2017 10:05 AM Shoulder leatha n, right DISTAL CLAVICLE BOX OFFICE MANAGER ARTHROSCOPIC SHOULDER 10/02/2017 10:05 AM Shoulder leatha n, right REPAIR ROTATOR CUFF BOX OFFICE MANAGER ARTHROSCOPY SHOULDER WITH 10/02/2017 10:05 AM Shoulder pain, right BICEPS TENODESIS BOX OFFICE MANAGER ARTHROSCOPIC SUBACROMIAL 10/02/2017 10:05 AM Shoulder pain, right DECOMPRESSION SHOULDER BOX OFFICE MANAGER documented in this encounter Visit Diagnoses Not on filedocumented in this encounter Administered Medications Inactive Administered Medications - up to 3 most recent administrations Medication Order MAR Action Action Date Dose Rate Site acetaminophen (TYLENOL) tablet Given 10/02/2017 9:45 AM BOX OFFICE MANAGER 1,00 0 mg 1,000 mg 1,000 mg, Oral, ONCE, On Yadira 10/02/17 at 0930, For 1 dose, Give in Preop., Pre-op EPINEPHrine 10 mg in sodium Given 10/02/2017 10:28 AM BOX OFFICE MANAGER 10 mL Right Shoulder chloride 0.9 % 3,000 mL ONCE PRN, Starting on Yadira 10/02/17 at 1018, Intra-op lactated ringers infusion Started 10/02/2017 10:36 AM BOX OFFICE MANAGER Intravenous, at 30 mL/hr, CONTINUOUS, Starting on Yadira 10/02/17 at 0930, Pre-op Started 10/02/2017 9:38 AM BOX OFFICE MANAGER documented in this encounter Active and Recently Administered Medications Times are shown in BOX OFFICE MANAGER. Scheduled Medication Order 09/30/2017 10/01/2017 10/02/2017 acetaminophen (TYLENOL) tablet 1,000 mg (COMPLETED) 0945 (Given - Provider: Paradise Alston RN) 1,000 mg, Oral, ONCE, Yadira 10/02/17 at 0930, For 1 dose, Give in Pr eop., Pre-op ceFAZolin (aka ANCEF) 2 g in dextrose 100 ml IVPB (COMPLETED) 1003 (Given - Provider: Radha Atkins APRN, CRNA) 2 g, Intravenous, Administer over 30 Min utes, ONCE, Yadira 10/02/17 at 0930, For 1 dose, Infuse within 60 minutes prior to incision; Re-dose 1 gram IV every 4 hours after initial dose until incision closed., Pre-op fentaNYL (SUBLIMAZE) injection 25-50 mcg 0930 (Due) 25-50 mcg, Intravenous, ONCE, Yadira 10/02/17 at 0930, For 1 dose, Notify Anesthesiologist if total cumulative dose in excess of 250 mcg., Pre-op hydrOXYzine pamoate (VISTARIL) capsule 25 mg 929 (Due) 25 mg, Oral, ONCE, Yadira 3 at 0930, F or 1 dose, Give with small sips of water, Pre-op midazolam (VERSED) injection 1-2 mg 929 (Due) 1-2 mg, Intravenous, ONCE, Yadira 10/02/17 at 0930, For 1 dose, Pre-o p oxyCODONE (OXYCONTIN) controlled release tablet 10 mg 929 (Due) 10 mg, Oral, ONCE, Yadira 3 at 0930, F or 1 dose, Give with small sips of water, Pre-op Continuous Medication Order 09/30/2017 10/01/2017 10/02/2017 lactated ringers infusion 0938 ( Started - Provider: Radha Atkins APRN, CRNA)1036 (Started - Provider: Radha Atkins APRN, CRNA)1134 (Anesthesia Fluid - Provider: Radha Atkins APRN, CRNA) Intravenous, at 30 mL/hr, CONTINUOUS, Starting Yadira 10/02/17 at 093 0, Pre-op PRN Medication Order 09/30/2017 10/01/2017 10/02/2017 EPINEPHrine 10 mg in sodium chloride 0.9 % 3,000 mL 1028 (Given - Provider: Terrell Mccarthy MD - Comment: bags x6) ONCE PRN, Starting Yadira 10/02/17 at 1018, Intra-op fentaNYL (SUBLIMAZE) injection 25-50 mcg 25-50 mcg, Intravenous, [id number], Other, Moderate to Severe Pain (pain score 5 and above) in the immediate postop period when faster on-set, short acting agent is desired., Starting Yadira 10/02/17 at 0852, Administer every 5 minutes as needed, to a maximum cumulative dose of 250 mcg. For patients with a regional, spinal, or local anesthetic, may give for anticipated pain as the anesthetic wears off., PACU/Recovery HYDROmorphone injectable 0.2-0.4 mg 0.2-0.4 mg, Intravenous, Q10MIN PRN, Oth er, : Moderate to Severe Pain (pain score 5 and above) in the immediate postop period when longer acting agent is desired., Starting Yadira 10/02/17 at 0852, Maximum c umulative dose is 2 mg. For patients wit h a regional, spinal, or local anesthetic, may give for anticipated pain as the anesthetic wears off., PACU/Recovery meperidine (DEMEROL) injection 12.5 mg 12.5 mg, Intravenous, [id number], Shiverin g, Starting Yadira 10/02/17 at 0852, For 2 doses, Maximum cumulative dose is 25 mg. Do not give to patients receiving MAO inhibitors (e.g. phenelzine (NARDIL), tranylc ypromine (PARNATE), selegiline (ELDEPRYL))., PACU/Recovery morphine injectable 1-2 mg 1-2 mg, Intravenous, [id number], Other, Mo derate to Severe Pain (pain score 5 and above) Moderate to Severe Pain (pain score 5 and above) in the immediate postop period when longer acting agent is desired and HYDROmorphone is not tolerated., St arting Yadira 10/02/17 at 0852, Maximum cumulative dose is 12 mg. For patients with a regional, spinal, or local anesthetic, may give for anticipated pain as the anesthetic wears off., PACU/Recovery ondansetron (ZOFRAN) injection 4 mg 4 mg, Intravenous, Q4H PRN, Nausea, Vomi ting, Starting Yadira 10/02/17 at 0852, If multiple medications are ordered for nausea or vomiting - administer in the following priority based on medications ordered, effectiveness and availability: ondanse tripp (ZOFRAN) > prochlorPERAZINE (COMPAZINE) > diphenhydrAMINE (BENADRYL) > hydrOXYzine HCl (VISTARIL)> ePHEDrine > scopolamine (TRANSDERM-SCOP)., PACU/Recovery documented in this encounter Care Teams Radio Recorder Relationship Specialty Start Date End Date Britney Jarrett MD PCP - General 04/04/161999 [place] [address] documented as of this encounter
--- OUTSIDE RECORDS SUMMARY | 2022-04-23 15:34 | XMS_ITS | Encounter Summary ---
:1970 Author Organization [facility] Address [address] [place] [address] Care Team Providers Name Role Phone Britney Jarrett MD Primary Care Provider Reason for Visit Reason Comments Questions post op Encounter Details Date Type Department Care Team Description 10/07/2017 Telephone [facility] Terrell Velasquez, Questions (post op) [address] [facility] [place], [place] [address] [address]100 [facility] [phone] [place], [place] [address] (Wo rk) Social History Tobacco Use Types [...] encounter Nursing Notes Megan Mckeon RN - 10/07/2017 11:44 AM CST Patient called with post op questions. Reviewed the sling, pendulum exercises and icing. Has had some numbness in the hand. Reviewed pressure points of elbow and wrist to prevent sling compressing them. She will continue to ice, take the sling off BID for 15 minutes to assist in stretching out forearm.She will continue to do the hand exercises. Instructed to call for questions. Reviewed her medications, she is doing well. 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
--- OUTSIDE RECORDS SUMMARY | 2022-04-23 15:34 | XMS_ITS | Encounter Summary ---
:1970 Author Organization [facility] Address [address] [place] [address] Care Team Providers Name Role Phone Britney Jarrett MD Primary Care Provider Reason for Visit Reason Comments Physical Therapy Encounter Details Date Type Department Care Team Description 10/29/2017 Office Visit [facility] Leticia Roland, [facility], Physical ASSISTANT PROFESSOR OF NURSING surgery of the Therapy [address] [facility] [address] [place], [place] (Prim christine Dx) [address] [address] [place], [place] [phone] (Work) [phone] Social History Tobacco Use Types Packs/Day Years [...] documented as of this encounter Progress Notes Leticia Roland, ASSISTANT PROFESSOR OF NURSING - 10/29/2017 7:30 AM CDT [facility] Physical Therapy Daily Note Visit Number: 5 [employer] [place]: 5 of 40 ASSISTANT PROFESSOR OF NURSING visit #3 ?? Initial Certification Period: 10/15/2017 to 01/13/18 [...] and back. 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 She is currently getting PT for her neck and back once every 2 weeks at [facility]- focus on muscle massage. Was diagnosed with irreversible arthritic disease at [facility] this July. She was told that her body holds more calcium and that she should focus her strengthening more on function vs. Previous levels of strengthening as a personal property appraiser. ?? 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 Patient???s Therapy Goals: Return to lifting if she can and return to functional tasks and mobility without limitations. ?? SUBJECTIVE: Pain: Pain was an 0/10 Patient Report: no c/o today, stated Sleeper's stretch is the most challenging, still 25% of tingling and numbness left but it's getting better. OBJECTIVE: Today???s Findings: Shoulder PROM: Flexion: 95 Abduction: 56 (from previous) IR: To stomach ER: 5 past neutral Flexibility: Upper traps: Tight on R Strength: Deferred Palpation: TTP at incision sites TREATMENT TODAY: Therapeutic Exercise (CPT 53190) x 15 minutes: Patient was instructed on exercises, cued for proper technique, and given hand outs for exercises added to home program. Wall slides make her UT tighten up ?? Access Code: [email or web address] ?? Exercises Standing Shoulder External Rotation Stretch in Doorway Seated Shoulder Flexion Towel Slide at Table Top ADDED Standing shoulder flexion stretch at wall - discussed to hold off this one for now Supine shoulder ER AAROM with dowel Self mobilization of upper traps and posterior RC with lacrosse ball Cross body stretch Sleeper's stretch Pect stretch on the wall Ice x 15min ?? Timed Code Treatment Minutes: 30 Total Treatment Minutes: 45 ASSESSMENT: Doing well with her shoulder re-hab, less worried about the tingling, and it's getting better. Was more relaxed with PROM PLAN: Continue per protocol and progress 4-quadrant stretching as tolerated. EXPECTED FUNCTIONAL OUTCOMES/GOALS: ONGOING HEP/Independent Management: Demonstrate independence with HEP and self- management following each treatment session ADL's: Resume previous sleep pattern without awakening due to symptoms in 3-4 weeks. [place] hair and face in 6 weeks. Dress, [...] least </= 15% in 14 weeks. Therapist: Leticia Roland 7:30 AM 10/29/2017 Supervising PT has reviewed and modified as appropriate the treatment and plan ofcare. Zee Iglesias DPT documented in this encounter Plan of Treatment Not on filedocumented as of this encounter Visit Diagnoses Diagnosis Aftercare following surgery of the [facility] - Primary Aftercare following surgery of the muscu loskeletal system, NEC documented in this encounter Care Teams Linen Keeper Relationship Specialty Start Date End Date Britney Jarrett MD PCP - General 04/04/161999 [place] [address] documented as of this encounter
--- OUTSIDE RECORDS SUMMARY | 2022-04-23 15:34 | XMS_ITS | Encounter Summary ---
:1970 Author Organization [facility] Address [address] [place] [address] Care Team Providers Name Role Phone Britney Jarrett MD Primary Care Provider Reason for Visit Reason Comments Physical Therapy Encounter Details Date Type Department Care Team Description 10/24/2017 Office Visit [facility] Leticia Roland, [facility], Physical WHEEL OF FORTUNE DEALER surgery of the Therapy [address] [facility] musculoskeletal system [address] [place], [place] (Prim christine Dx) [address] [address] [place], [place] [phone] (Work) [phone] Social History Tobacco Use Types Packs/Day Years [...] of this encounter Progress Notes Leticia Roland, WHEEL OF FORTUNE DEALER - 10/24/2017 7:00 AM CDT [facility] Physical Therapy Daily Note Visit Number: 3 [place]: 3 of 40 WHEEL OF FORTUNE DEALER visit #1 ?? Initial Certification Period: 10/15/2017 to 01/13/18 [...] back. 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 She is currently getting PT for her neck and back once every 2 weeks at [facility]- focus on muscle massage. Was diagnosed with irreversible arthritic disease at [place] this July. She was told that her body holds more calcium and that she should focus her strengthening more on function vs. Previous levels of strengthening as a personal fitness manager. ?? 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 Patient???s Therapy Goals: Return to lifting if she can and return to functional tasks and mobility without limitations. ?? SUBJECTIVE: Pain: Pain was an 8/10 yesterday, better today. Patient Report: Patient stated numbness in R 3 fingers, pain is under control with meds. Has been doing her exercises. Sleeping without a sling now. Has and appt at pain clinic today. OBJECTIVE: Today???s Findings: Shoulder PROM: Flexion: 95 Abduction: 56 (from previous) IR: To stomach ER: 5 past neutral Flexibility: Upper traps: Tight on R Strength: Deferred Palpation: TTP at incision sites TREATMENT TODAY: Therapeutic Exercise (CPT 43633) x 15 minutes: Patient was instructed on exercises, cued for proper technique, and given hand outs for exercises added to home program. Wall slides make her UT tighten up ?? Access Code: [email or web address] ?? Exercises Standing Shoulder External Rotation Stretch [...] Manual therapy, 1 or more regions (CPT 07764) x 15 minutes: Utilized for the purpose of increasing joint mobility, range of motion, and decreasing pain and soft tissue restrictions. ?? PROM to R shoulder in flexion, ER STM to UT Shoulder clock passive STM to parascap muscles STM to Pect muscle Tool assisted STM to R UT Hot Pack (CPT 11874): Moist hot pack applied to upper traps to facilitate decreased muscle tightnessand decreased pain Timed Code Treatment Minutes: 30 Total Treatment Minutes: 45 ASSESSMENT: No pain complains today, doing well with that but is very worried about numbness in her hand and arm. Very focused on passive therapy. Did well with exercises today. PLAN: Continue per protocol and progress 4-quadrant stretching as tolerated. EXPECTED FUNCTIONAL OUTCOMES/GOALS: ONGOING HEP/Independent Management: Demonstrate independence with HEP and self- management following each treatment session ADL's: Resume previous sleep pattern without awakening due to symptoms in 3-4 weeks. [place] hair and face in 6 weeks. Dress, [...] 15% in 14 weeks. Therapist: Leticia Roland 7:01 AM 10/24/2017 Supervising PT has reviewed and modified as appropriate the treatment and plan ofcare. Zee Iglesias, TASHA documented in this encounter Plan of Treatment Not on filedocumented as of this encounter Visit Diagnoses Diagnosis Aftercare following surgery of the [facility] loskeletal system - Primary Aftercare following surgery of the [facility] loskeletal system, NEC documented in this encounter Care Teams Data Coder Operator Relationship Specialty Start Date End Date Britney Jarrett MD PCP - General 04/04/161999 [place] [address] documented as of this encounter
--- OUTSIDE RECORDS SUMMARY | 2022-04-23 15:34 | XMS_ITS | Encounter Summary ---
:1970 Author Organization [facility] Address [address] [place] [address] Care Team Providers Name Role Phone Britney Jarrett MD Primary Care Provider Encounter Details Date Type Department Care Team Description 10/02/2017 Surgery [facility] Terrell Mccarthy P, RIGHT shoulder [address] [facility] Kevin trevizo MD arthroscopic [place], [place] [address] [address] [facility] subacromial [phone] [place], [place] decompressio n, biceps [id number] tenodesis, calcium [phone] (Wo rk) debridement, possible rotator c uff repair and possible di stal clavicle excisi on Social History Tobacco Use Types Packs/Day Years [...] Sign Reading Time Taken Comments Blood Pressure 111/63 10/02/2017 11:50 AM GROCERY STOCK CLERK Pulse 106 10/02/2017 11:50 AM GROCERY STOCK CLERK Temperature 36.6 ??C (97.9 ??F) 10/02/2017 11:34 AM GROCERY STOCK CLERK Respiratory Rate 14 10/02/2017 11:50 AM GROCERY STOCK CLERK Oxygen Saturation 96% 10/02/2017 11:50 AM GROCERY STOCK CLERK Inhaled Oxygen Concentration - - Weight 60.3 kg (133 lb) 10/02/2017 9:00 AM GROCERY STOCK CLERK Height 150.5 cm (4' 11.25) 10/02/2017 9:00 AM GROCERY STOCK CLERK Body Mass Index 26.64 10/02/2017 9:00 AM GROCERY STOCK CLERK documented in this encounter Discharge Instructions Discharge [...] you saw him pre-operatively for further details. ERY STOCK CLERK documented in this encounter Medications at Time [...] Take 1 Tab by 42 Tab 0 018 10/14/2017 tablet mouth every 8 hours [...] 12:00 PM CST NAME: JOSIE THOMASON MR#: [id number] CSN: [id number] AUTHENTICATING CLINICIAN: Terrell Mccarthy MD CONFIRM #: [id number] LOC: 725 OPERATIVE REPORT DATE OF OPERATION: [...] at that visit. CC: ARTURO ODONNELL MD [address] [place] [address] JPB:WILDER C: R:10/02/17 11:24 CONFIRM#:[id number] ERY STOCK CLERK documented in this encounter Plan of Treatment Scheduled Orders Name Type Priority Associated Diagnoses Order S chedule POCT Glucose: Point of Care Routine Once today st arting now for 1 Occurrences s tarting 10/02/2017 unti l 10/02/2017 documented as of this encounter Procedures Procedure Name Priority Date/Time Associated Diagnosis Comme nts ARTHROSCOPIC EXCISION 10/02/2017 10:05 AM Shoulder leatha n, right DISTAL CLAVICLE GROCERY STOCK CLERK ARTHROSCOPIC SHOULDER 10/02/2017 10:05 AM Shoulder leatha n, right REPAIR ROTATOR CUFF GROCERY STOCK CLERK ARTHROSCOPY SHOULDER WITH 10/02/2017 10:05 AM Shoulder pain, right BICEPS TENODESIS GROCERY STOCK CLERK ARTHROSCOPIC SUBACROMIAL 10/02/2017 10:05 AM Shoulder pain, right DECOMPRESSION SHOULDER GROCERY STOCK CLERK documented in this encounter Visit Diagnoses Diagnosis Shoulder pain, right Pain in joint, shoulder region documented in this encounter Administered Medications Inactive Administered Medications - up to 3 most recent administrations Medication Order MAR Action Action Date Dose Rate Site acetaminophen (TYLENOL) tablet Given 10/02/2017 9:45 AM GROCERY STOCK CLERK 1,00 0 mg 1,000 mg 1,000 mg, Oral, ONCE, On Yadira 10/02/17 at 0930, For 1 dose, Give in Preop., Pre-op EPINEPHrine 10 mg in sodium Given 10/02/2017 10:28 AM GROCERY STOCK CLERK 10 mL Right Shoulder chloride 0.9 % 3,000 mL ONCE PRN, Starting on Yadira 10/02/17 at 1018, Intra-op lactated ringers infusion Started 10/02/2017 10:36 AM GROCERY STOCK CLERK Intravenous, at 30 mL/hr, CONTINUOUS, Starting on Yadira 10/02/17 at 0930, Pre-op Started 10/02/2017 9:38 AM GROCERY STOCK CLERK documented in this encounter Active and Recently Administered Medications Times are shown in GROCERY STOCK CLERK. Scheduled Medication Order 09/30/2017 10/01/2017 10/02/2017 acetaminophen (TYLENOL) tablet 1,000 mg (COMPLETED) 0945 (Given - Provider: Paradise Alston RN) 1,000 mg, Oral, ONCE, Yadira 3 at 0930, For 1 dose, Give in Pr eop., Pre-op ceFAZolin (aka ANCEF) 2 g in dextrose 100 ml IVPB (COMPLETED) 1003 (Given - Provider: Radha Atkins APRN, LYNETTE) 2 g, Intravenous, Administer over 30 Min utes, ONCE, Yadira 10/02/17 at 0930, For 1 dose, Infuse within 60 minutes prior to incision; Re-dose 1 gram IV every 4 hours after initial dose until incision closed., Pre-op fentaNYL (SUBLIMAZE) injection 25-50 mcg 30 (Due) 25-50 mcg, Intravenous, ONCE, Yadira 3 at 0930, For 1 dose, Notify Anesthesiologist if total cumulative dose in excess of 250 mcg., Pre-op hydrOXYzine pamoate (VISTARIL) capsule 25 mg 929 (Due) 25 mg, Oral, ONCE, Yadira 3 at 0930, F or 1 dose, Give with small sips of water, Pre-op midazolam (VERSED) injection 1-2 mg 929 (Due) 1-2 mg, Intravenous, ONCE, Yadira 318 at 0930, For 1 dose, Pre-o p oxyCODONE (OXYCONTIN) controlled release tablet 10 mg 929 (Due) 10 mg, Oral, ONCE, Yadira 318 at 0930, F or 1 dose, Give with small sips of water, Pre-op Continuous Medication Order 09/30/2017 10/01/2017 10/02/2017 lactated ringers infusion 0938 ( Started - Provider: Radha Atkins APRN, CRNA)1036 (Started - Provider: Radha Atkins APRN, LYNETTE)1134 (Anesthesia Fluid - Provider: Radha Atkins APRN, CRNA) Intravenous, at 30 mL/hr, CONTINUOUS, Starting Yadira 10/02/17 at 093 0, Pre-op PRN Medication Order 09/30/2017 10/01/2017 10/02/2017 EPINEPHrine 10 mg in sodium chloride 0.9 % 3,000 mL 1028 (Given - Provider: Terrell Mccarthy MD - Comment: bags x6) ONCE PRN, Starting Yadira 10/02/17 at 1018, Intra-op fentaNYL (SUBLIMAZE) injection 25-50 mcg 25-50 mcg, Intravenous, [id number], Other, Moderate to Severe Pain (pain score [...] (DEMEROL) injection 12.5 mg 12.5 mg, Intravenous, [id number], Shiverin g, Starting Yadira 10/02/17 at 0852, For 2 doses, Maximum cumulative dose is 25 mg. Do not give to patients receiving MAO inhibitors (e.g. phenelzine (NARDIL), tranylc ypromine (PARNATE), selegiline (ELDEPRYL))., PACU/Recovery morphine injectable 1-2 mg 1-2 mg, Intravenous, [id number], Other, Mo derate to Severe Pain (pain [...] PACU/Recovery documented in this encounter Care Teams Call Center Professional Relationship Specialty Start Date End Date Britney Jarrett MD PCP - General 04/04/161999 [place] [address] documented as of this encounter
--- OUTSIDE RECORDS SUMMARY | 2022-04-23 15:34 | XMS_ITS | Encounter Summary ---
:1970 [facility] Address [address] [place] [address] Care Team Providers Name Role Phone Britney Jarrett MD Primary Care Provider Reason for Referral Procedure/Equipment (Routine) - Incomplete Specialty Diagnoses / Procedures Referred By Contact Refer red To Contact Diagnoses Postop check Terrell Mccarthy MD Procedures XR Shoulder Rt 2+ Views [address] [place] [address] Referral ID Status Reason Start Date Expiration Date Visits V isits Requested Authorized [id number] Incomplete 11/18/2017 02/17/2019 1 1 Reason for Visit Reason Comments SHOULDER PAIN Encounter Details Date Type Department Care Team Description 11/18/2017 Office Visit [facility] Terrell Mccarthy, Post op check (Primary CENTER MD Dx) [address] [place] [address] [place], [place] [phone] (Wo rk) Social History Tobacco Use Types [...] encounter Progress Notes Terrell Mccarthy MD - 10/02/2017 12:00 PM CST NAME: RAHAT THOMASON MR#: [id number] CSN: [id number] AUTHENTICATING CLINICIAN: Terrell Mccarthy MD CONFIRM #: [id number] LOC: 711 CLINIC PROGRESS NOTE DATE OF VISIT: 10/02/2017 : 1970 CHIEF COMPLAINT: Postsurgical pain. DATE OF SURGERY: 10/02/2017. HISTORY OF PRESENT ILLNESS: Ms. Thomason returns today for followup. She has really turned a corner over the last couple weeks after distal clavicle, biceps tenodesis and decompression. She notes her pain is a lot better. She is feeling better. She is happy with her result so far. She has been dealing with some back stuff as well. She is getting some left-sided symptoms. She is doing physical therapy and Orthology. PHYSICAL EXAM: On exam today, she has 135 degrees of forward elevation, 135 degrees of lateral elevation, 40 degrees of external rotation, side internal rotation up the back to L1. IMAGING STUDIES: AP and lateral of the glenohumeral joint and and lateral of scapula. Indication: Shoulder surgery. Comparison views in the EMR demonstrate postsurgical changes with reduction in the size of the calcific focus and a biceps tenodesis screw placement. Radiographic impression: Status post resection of calcium and postsurgical changes of the proximal humerus. Otherwise normal shoulder. ASSESSMENT: Status post above procedure, doing well. PLAN: I had a nice talk with Ms. Thomason today. It is fine for her to progress her activities and see me back at the next anniversary of her surgery. JPB:MEDQ C: R:11/20/17 07:54 CONFIRM#:[id number] documented in this encounter Plan of Treatment Not on filedocumented as of this encounter Results XR Shoulder Rt 2+ [...] this encounter Visit Diagnoses Diagnosis Postop check - Primary Follow-up examination, following unspeci fied surgery Postop check Follow-up examination, following unspeci fied surgery documented in this encounter Care Teams Corporate Claims Examiner Relationship Specialty Start Date End Date Britney Jarrett MD PCP - General 04/04/161999 [place] [address] documented as of this encounter
--- OUTSIDE RECORDS SUMMARY | 2022-04-23 15:34 | XMS_ITS | Encounter Summary ---
:1970 Author Organization [facility] Address [address] [place] [address] Care Team Providers Name Role Phone Britney Jarrett MD Primary Care Provider Reason for Visit Reason Comments Physical Therapy Encounter Details Date Type Department Care Team Description 10/27/2017 Office Visit [facility] PT and Ed Leticia Roland, [facility], Physical MACHINE GROUP LEADER surgery of the Therapy [address] [facility] musculoskeletal system [address] [place], [place] (Prim christine Dx) [address] [address] [place], [place] [phone] (Work) [phone] Social History Tobacco Use Types Packs/Day Years [...] of this encounter Progress Notes Leticia Roland, MACHINE GROUP LEADER - 10/27/2017 7:30 AM CDT [facility] Physical Therapy Daily Note Visit Number: 4 [place]: 4 [place] 40 MACHINE GROUP LEADER visit #2 ?? Initial Certification Period: 10/15/2017 to 01/13/18 [...] and back. 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 She is currently getting PT for her neck and back once every 2 weeks at [facility]- focus on muscle massage. Was diagnosed with irreversible arthritic disease at [place] this July. She was told that her body holds more calcium and that she should focus her strengthening more on function vs. 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 ?? 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 Patient???s Therapy Goals: Return to lifting if she can and return to functional tasks and mobility without limitations. ?? SUBJECTIVE: Pain: Pain was an 0/10 Patient Report: was seen in pain clinic, tingling might be coming from her neck. She is starting to wean off the brace. No shoulder pain. More tingling when she is wearing a brace. OBJECTIVE: Today???s Findings: Shoulder PROM: Flexion: 95 Abduction: 56 (from previous) IR: To stomach ER: 5 past neutral Flexibility: Upper traps: Tight on R Strength: Deferred Palpation: TTP at incision sites TREATMENT TODAY: Therapeutic Exercise (CPT 29658) x 15 minutes: Patient was instructed on exercises, cued for proper technique, and given hand outs for exercises added to home program. Wall slides make her UT tighten up ?? Access Code: [email or web address] ?? Exercises Standing Shoulder External Rotation Stretch [...] ASSESSMENT: Doing well with her shoulder re-hab, still very concerned with tingling and numbness in her R arm. Doing well with exercises, no pain , doing them corectly PLAN: Continue per protocol and progress 4-quadrant stretching as tolerated. EXPECTED FUNCTIONAL OUTCOMES/GOALS: ONGOING HEP/Independent Management: Demonstrate independence with HEP and self- management following each treatment session ADL's: Resume previous sleep pattern without awakening due to symptoms in 3-4 weeks. [place] hair and face in 6 weeks. Dress, [...] 15% in 14 weeks. Therapist: Leticia Roland 7:33 AM 10/27/2017 Supervising PT has reviewed and modified as appropriate the treatment and plan ofcare. Tona Winkler DPT documented in this encounter Plan of Treatment Not on filedocumented as of this encounter Visit Diagnoses Diagnosis Aftercare following surgery of the [place] loskeletal system - Primary Aftercare following surgery of the [facility] [place]keletal system, NEC documented in this encounter Care Teams Meter Maintenance Person Relationship Specialty Start Date End Date Britney Jarrett MD PCP - General 04/04/161999 [place] [address] documented as of this encounter
--- OUTSIDE RECORDS SUMMARY | 2022-04-23 15:34 | XMS_ITS | Encounter Summary ---
:1970 Author Organization [employer] [facility] Address [address] [place] [address] Care Team Providers Name Role Phone Britney Jarrett MD Primary Care Provider Reason for Visit Reason Comments Physical Therapy Therapies (Routine) - Closed Specialty Diagnoses / Procedures Referred By Contact Refer red To Contact Diagnoses Chronic right shoulder pain Terrell Mccarthy MD [address] [facility] [place], [place] [address] Referral ID Status Reason Start Date Expiration Date Visits Requ ested Visits Authorized [id number] Closed 10/14/2017 12/13/2017 1 1 Encounter Details Date Type Department Care Team Description 10/15/2017 Office Visit [facility] Cathi Carbone, Aftercar e following surgery of the musculoskeletal system (Primary Dx); Center, Physical PT Pain in joint of right shoulder Therapy [address] [place] [address] [phone] Social History Tobacco Use Types Packs/Day Years [...] encounter Progress Notes Cathi Carbone, PT - 10/15/2017 4:45 PM CDT Physical Therapy Post-Op Shoulder Evaluation/Plan of Care Visit Number: 1 [facility] [place]: 1 of 40 Initial Certification Period: 10/15/2017 to 01/13/18 Referring Provider: Terrell Mccarthy Diagnosis: Chronic R shoulder pain Date of Surgery: 10/02/17 Surgical Procedure: 1. Right shoulder arthroscopic biceps tenodesis. 2. Right shoulder arthroscopic distal clavicle excision. 3. Right shoulder extensive further debridement of the glenohumeral joint, including debridement of calcific focus from the supraspinatus. 4. Right shoulder arthroscopic subacromial decompression, with bony acromioplasty. Orders: Evaluate & treat Precautions/Contraindications: Post-op plan: 1. The patient will be discharged to home today on oral analgesics. 2. She should have Codman exercises, but no other active or passive range of motion at this time. 3. At the 2-week hansel, she will begin gentle progressive 4-quadrant stretching. 4. Total sling time will be 4 weeks. 5. Between 4 and 12 weeks, she will be limited to a 10-pound lifting restriction. 6. At 2 months, she will have unrestricted 4-quadrant stretching, periscapular stabilization and strengthening. Radiographs will also be obtained at that visit. Comments in PT order: Gentle, progressive four quadrant stretching. No strengthening or resistive. Ok to remove sling and being ADLs on 10/30. Date of Onset: Years of shoulder pain [...] a day and these hurt so good. Patient has hx of chronic neck and back pain - hx of fusions in neck and back. 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 She is currently getting PT for her neck and back once every 2 weeks at [facility]- focus on muscle massage. Was diagnosed with irreversible arthritic disease at [place] this July. She was told that her body holds more calcium and that she should focus her strengthening more on function vs. Previous levels of strengthening as a personal property assessor. 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 Patient???s Therapy Goals: Return to lifting if she can and return to functional tasks and mobility without limitations. SUBJECTIVE: Pain Ratin-4/10 in the shoulder, finger numbness is the most frustrating. Past Medical History: See EMR for details regarding past medical history, medications and drug allergies. History pertinent to therapy includes PT once every 2 weeks for neck and back at [facility]. No hx ofPT for her shoulder prior to surgery. Review of Systems: Dx of irreversible arthritic disease from [place] this past winter. Early stages of osteoporosis. Patient denies any history of significant medical history including heart conditions, lung conditions or cancer. Past Medical History: Diagnosis Date ??? Calcific tendinitis of left shoulder 03/17/2017 ??? Calcific tendonitis, right shoulder 08/26/2016 ??? Normal delivery 1993 Jose Rafael ??? Normal delivery 1996 Marianne ??? PONV (postoperative nausea and vomiting) Past Surgical History: Procedure Laterality Date ??? [...] fusion ??? TONSILLECT PRIM/SEC; UNDER AGE 10 OBJECTIVE: General: Mood, orientation and behavior were appropriate. Patient was alert and oriented. Posture/Alignment: normal Cervical Screening: limited throughout ROM secondary to hx of cervical fusions and muscle tightness. Shoulder PROM: Flexion: 108 Abduction: 56 IR: To stomach ER: Neutral Joint mobility: Ribs: 1st rib: elevated on R Flexibility: Upper traps: Tight on R Neurological Screen: Dermatomes: Sensation intact - reports of numbness in right first finer. Median nerve tension: + on R Strength: Deferred Palpation: TTP at incision sites and R carpal tunnel Special tests: Tinel's: + on R Phalen's: + on R Functional Tests: Deferred TREATMENT TODAY: Physical Therapy Evaluation (CPT 72399): An evaluation was performed. The patient was determined to have moderate complexity based on history, examination, clinical presentation of the patient and the PT's clinical decision making. The patient was educated on the condition, planned therapy intervention and the expectations from treatment. Goals were a collaborative effort of the therapist and patient. Therapeutic Exercise (CPT 44388) x 15 minutes: Patient was instructed on exercises, cued for proper technique, and given hand outs for exercises added to home program. Access Code: [email or web address] Exercises Median Nerve Flossing with just elbow and wrist motion. Standing Elbow Flexion Extension AROM Seated Forearm Supination Pronation - cues to avoid end range supination stretching Standing Shoulder External Rotation Stretch in Doorway Seated Scapular Retraction Seated Shoulder Flexion Towel Slide at Table Top Seated Upper Trapezius Stretch Standing shoulder flexion stretch at wall - increased pain. Not added to HEP at this time. Reviewed pendulums - cues on passive motion with emphasis on shifting body weight Manual therapy, 1 or more regions (CPT 32994) x 15 minutes: Utilized for the purpose of increasing joint mobility, range of motion, and decreasing pain and soft tissue restrictions. PROM to R shoulder in flexion, ER and abduction. PROM to R elbow (flexion/extension) and R forearm (supination/pronation) 1st rib mobilizations grade II-III Self Care/Home Mgmt (CPT 49179) x 10 minutes: Patient was instructed/educated on clinical findings from evaluation Symptom management strategies; i.e. Ice/heat Educated on anatomy involved/ pathology observed Prognosis of condition/healing time frames/progression of MD protocol Activity modification/positions of comfort/ positions to avoid Instructed on techniques and proper movement patterns to improve ease of ADL???s Positioning for sleep/comfort Activities to avoid at home for safety Vasopneumatic Compression: Game ready to R shoulder with medium pressure for swelling and pain management x 15 minutes Timed Code Treatment Minutes: 40 Total Treatment Minutes: 75 Plan for next treatment session: Per protocol - continue progressing into 4 quadrant stretches as tolerated. Continue with PROM, progress nerve mobilization as needed. Education/Handouts: Diagnosis Education, Post-op restrictions, Sleep/rest positions, Use of sling Response to treatment: Decreased pain, Good understanding of HEP, Good understanding of post-op instructions, Increased ROM, Decreased numbness in fingers ASSESSMENT: Therapist Impression: Josie Booker is a 47 y.o. female who presents to PT nearly 2 weeks s/p R arthroscopic surgery with biceps tenodesis. Patient subjective reporting and objective findings are consistent with 13 days post operative with limitations in ROM, ADLs and strength secondary to compliance wearing her sling. Patient has a significant history of chronic neck and back pain. She presents with significant nerve sensitivity and nerve tension to her median nerve on the right. She responds well to initiation of nerve flossing this date with reports of decreased numbness by the end of the session. Patient will benefit from continued therapy to facilitate optimal rehabilitation s/p R shoulder surgery so she can return to PLOF with minimal limitations. Barriers to Learning: none Rehab Prognosis: Good PLAN: Planned Intervention/Education: Evaluation, Re-Evaluation, Education, Therapeutic Exercise, Manual Therapy, Neuromuscular Re-education, Self Care/Home Management, Therapeutic Activities, Ice, Heat, Vasopneumatic Compression, E- Stim: Unattended, E-Stim: Attended, TENS, Blood Flow Restriction Therapy PT Frequency/Duration: 1-2 x/week for 12-14 weeks for a total of 20-24 visits Discharge Plan: Goal achievement, goal achievement with home exercise program or if progress plateaus. Informed Consent: Risks, benefits and alternatives to treatment have been explained. Patient and/or family in agreement with care plan. EXPECTED FUNCTIONAL OUTCOMES/GOALS: HEP/Independent Management: Demonstrate independence with HEP and self- management following each treatment session ADL's: Resume previous sleep pattern without awakening due to symptoms in 3-4 weeks. [place] hair and face in 6 weeks. Dress, [...] at least </= 15% in 14 weeks. Evaluation and Plan of Care completed by: Cathi Carbone, PT 4:49 PM 10/15/2017 The value analyst is completed by the therapist and the referring clinician's electronic signature certifies medical necessity for the plan above. documented in this encounter Plan of Treatment Scheduled Referrals Name Type Priority Associated Diagnoses Order S [facility] Physical Therapy Referral Routine Chronic right shoulder p ain Ordered: 10/14/2017 documented as of this encounter Visit Diagnoses Diagnosis Aftercare following surgery of the muscu loskeletal system - Primary Aftercare following surgery of the muscu loskeletal system, NEC Pain in joint of right shoulder Pain in joint, shoulder region documented in this encounter Care Teams Powder And Primer Canning Leader Relationship Specialty Start Date End Date Britney Jarrett MD PCP - General 04/04/[address] [place] [address] documented as of this encounter
--- OUTSIDE RECORDS SUMMARY | 2022-04-23 15:34 | XMS_ITS | Encounter Summary ---
:1970 Author Organization [facility] Address [address] [place] [address] Care Team Providers Name Role Phone Britney Jarrett MD Primary Care Provider Reason for Referral Consult/Transfer Care (Routine) - Closed Specialty Diagnoses / Procedures Referred By Contact Refer red To Contact Diagnoses S/P shoulder surgery Terrell Mccarthy MD [address] [place] [address] CHET[place] JALLOH [address] 1 Referral ID Status Reason Start Date Expiration Date Visits Requ ested Visits Authorized [id number] Closed 10/21/2017 01/20/2019 1 1 Scheduling Instructions Your provider has recommended an appoint ment with [facility]. You may call [phone] to schedule your appoi ntment. If you do not schedule an appointment within the next 1 to 3 business days, we will call you to help arrange your appointment. We suggest you call your [employer] insurance company about your coverage and benefits for this appointment. Reason for Visit Reason Comments Questions regarding symptoms Encounter Details Date Type Department Care Team Description 10/21/2017 Telephone [facility] Terrell Mccarthy Ques tions (regarding JENERA MD symptoms) [address] [facility] [address] [place] [address] [place]all[place] [address] [address] [facility] [place] [place] [phone] (Wo rk) Social History Tobacco Use Types [...] Type Priority Associated Diagnoses Order S chedule Pain-Medical Adult Consult Referral Routine S/P shoulder s urgery Ordered: 10/21/2017 [facility] documented as of this encounter Visit Diagnoses Diagnosis S/P shoulder surgery - Primary Other postprocedural status documented in this encounter Care Teams Nut Tapper Relationship Specialty Start Date End Date Britney Jarrett MD PCP - General 04/04/161999 [place] [address] documented as of this encounter
--- OUTSIDE RECORDS SUMMARY | 2022-04-23 15:34 | XMS_ITS | Encounter Summary ---
:1970 Author Organization [facility] Address [address] [place] [address] Care Team Providers Name Role Phone Britney Jarrett MD Primary Care Provider Reason for Visit Reason Comments Questions nausea/vomiting Encounter Details Date Type Department Care Team Description 10/03/2017 Telephone [facility] Terrell Mccarthy, [facility] (nausea/vomiting) [address] [facility] [address] [facility] [place], [place] [address] [place], [place] [phone] (Wo rk) Social History Tobacco Use Types [...] Nursing Notes Megan Mckeon RN - 10/03/2017 4:51 PM CST Patient called with nausea and vomiting since surgery yesterday. Discussed the medications ordered for after surgery. Zofran was discussed and changing the Dilaudid to Noco due to intolerance of medications. DO has left. Pager the resident assessment nurse practitioner Dr. Amado. He has agreed to remotely approve the change in medications. Patient was called to discuss the changes and instructed on how to use the medications. Will check with patient on Friday. SPRING FORMER documented in this encounter Plan of Treatment Not on filedocumented as of this encounter Visit Diagnoses Not on filedocumented in this encounter Care Teams Dispensing Operator Relationship Specialty Start Date End Date Britney Jarrett MD PCP - General 04/04/[address] [place] [address] documented as of this encounter
--- OUTSIDE RECORDS SUMMARY | 2022-04-23 15:35 | XMS_ITS | Encounter Summary ---
:1970 Author Organization [facility] Address [address] [address] Care Team Providers Name Role Phone Britney Jarrett MD Primary Care Provider Reason for Visit Reason Comments Post-Op Follow Up Call Encounter Details Date Type Department Care Team Description 10/18/2015 Telephone [facility] Frances Reddy RN Post-Op Follow Up Call [address] [place], [place] [address] Social History Tobacco Use Types Packs/Day Years Used Date Smoking Tobacco: Never Alcohol Use Standard Drinks/Week Comments Not Asked 0 (1 standard drink = 0.6 oz pure alcoho l) 1/mo Sex Assigned at Date Recorded Not on file documented as of this encounter Nursing Notes Frances Reddy, RN - 10/18/2015 10:52 AM CDT Patient LM returning post procedure call stating he pain is back today. Attempted to call patient back, got her VM and left message stating steroids can take a few days to take effect. documented in this encounter Plan of Treatment Not on filedocumented as of this encounter Visit Diagnoses Not on filedocumented in this encounter Care Teams Programmer Relationship Specialty Start Date End Date Britney Jarrett MD PCP - General 04/15/13 04/03/[address]1999 [place] [address] documented as of this encounter
--- OUTSIDE RECORDS SUMMARY | 2022-04-23 15:35 | XMS_ITS | Encounter Summary ---
:1970 Author Organization [facility] Address [address] [place] [address] Care Team Providers Name Role Phone Britney Jarrett MD Primary Care Provider Reason for Visit Reason Comments Back Pain Encounter Details Date Type Department Care Team Description 01/02/2016 Office Visit [facility] Manan Lyman Facet arthropathy, 8[address] [facility] MD [place] lumbar (Primary Dx) [place], [place] [address] [phone] [address] [place] [address] Social History Tobacco Use Types Packs/Day Years Used Date Smoking Tobacco: Never Alcohol Use Standard Drinks/Week Comments Not Asked 0 (1 standard drink = 0.6 oz pure alcoho l) 1/mo Sex Assigned at Date Recorded Not on file documented as of this encounter Patient Instructions Patient InstructionsAnastasiya Nunez MA - 01/02/2016 3:[address] Manan Pearce MD Orthopaedic Spine Surgery Please contact Vicky for all administrative questions at [phone] Please contact the Spine Nurse for all medical related questions at [phone] Medication Requests: Prescriptions are not filled on Weekends or on Weekdays after 3:00PM For all medication refills: Request a refill using MyChart or contact your Pharmacy documented in this encounter Progress Notes Manan Pearce MD - 01/02/2016 4:04 PM CDT Progress Notes signed by Manan Pearce MD at 01/09/[address] Author: Manan Pearce MD Service: (none) Author Type: Physician Filed: 01/09/16 0744 Note Time: 01/04/161449 Status: Signed Intertype Operator: Manan Pearce MD (Physician) NAME: RAHAT THOMASON MR#: [id number] CSN: [id number] AUTHENTICATING CLINICIAN: Manan Pearce MD CONFIRM #: [id number] LOC: 711 CLINIC PROGRESS NOTE DATE OF VISIT: 01/02/2016 : 1970 Ms. Thomason presents today in followup. Since last being seen she was seen at the [facility]. They apparently did PSIS joint injections as well as SI joint injections. Unfortunately these have failed to alleviate symptoms, although postprocedure day 3 she globally felt better; however, was not betterat all during the anesthetic portion. OBJECTIVE: On physical exam today, Ms. Thomason does ambulate with a nonantalgic, nonmyelopathic gait pattern. Strength is symmetric without deficits in both lower extremities. Erickson's maneuver is negative bilaterally. However, she does have pain with hyperextension. Her CT scan was reviewed which does confirm uninstrumented fusion L4 through S1. Gaseous degeneration with substantial arthritic facet joint disease noted at L3- 4. SI joints patent without gaseous degeneration. 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 PLAN: I have suggested RFA workup L3-4 which she is in full agreement of. Follow up afterwards. She is to call if there are any additional questions or concerns. JDS:TH C: R:01/02/16 16:11 CONFIRM#:[id number] documented in this encounter Plan of Treatment Not on filedocumented as of this encounter Visit Diagnoses Diagnosis Facet arthropathy, lumbar (HRC) - Primar y Lumbosacral spondylosis without myelopat hy documented in this encounter Care Teams Net Mender Relationship Specialty Start Date End Date Britney Jarrett MD PCP - General 04/15/13 04/03/[address] [place] [address] documented as of this encounter
--- OUTSIDE RECORDS SUMMARY | 2022-04-23 15:35 | XMS_ITS | Encounter Summary ---
:1970 Author Organization [facility] Address [address] [place] [address] Care Team Providers Name Role Phone Britney Jarrett MD Primary Care Provider Reason for Visit Reason Comments Questions Encounter Details Date Type Department Care Team Description 10/03/2015 Telephone [facility] TER Doni Conway MD Questions [address] [facility] [address] [place] [address] [address] [place] [address] [phone] (Wo rk) Social History Tobacco Use Types Packs/Day Years Used Date Smoking Tobacco: Never Alcohol Use Standard Drinks/Week Comments Not Asked 0 (1 standard drink = 0.6 oz pure alcoho l) 1/mo Sex Assigned at Date Recorded Not on file documented as of this encounter Nursing Notes Jacinda Carrillo RN - 10/04/2015 10:22 AM CST Injection ordered, left VM for patient. ICAL TRANSCRIBER Doni Conway MD - 10/04/2015 9:16 AM CST Will schedule for bilateral L3-4 and L4-5 facet injections, follow up in clinic 2 weeks after injection. Jacinda Dixon RN - 10/03/2015 2:09 PM CST Patient calling, wanting to know if you were able to discuss her case with one of our spine surgeons. Last seen on 09/28/2015, no dictation available this time. ICAL TRANSCRIBER documented in this encounter Plan of Treatment Not on filedocumented as of this encounter Visit Diagnoses Diagnosis Bilateral low back pain without sciatica - Primary documented in this encounter Care Teams Senior Technologist Relationship Specialty Start Date End Date Britney Jarrett MD PCP - General 04/15/13 04/03/16[address] [place] [address] documented as of this encounter
--- OUTSIDE RECORDS SUMMARY | 2022-04-23 15:35 | XMS_ITS | Encounter Summary ---
:1970 Author Organization [facility] Address [address], [place] [address] Care Team Providers Name Role Phone Britney Jarrett MD Primary Care Provider Reason for Visit Reason Comments Refill Encounter Details Date Type Department Care Team Description 05/13/2014 Refill [facility] Bandar Hernandez MD Refill [address] [facility] [place] [address] [address] [place] [address] [phone] (Wo rk) Social History Tobacco Use Types [...] on filedocumented in this encounter Care Teams Plastic Block Boiler Reliner Relationship Specialty Start Date End Date Britney Jarrett MD PCP - General 04/15/13 04/03/[address]1999 [place] [address] documented as of this encounter
--- OUTSIDE RECORDS SUMMARY | 2022-04-23 15:35 | XMS_ITS | Encounter Summary ---
:1970 Author Organization [facility] Address [address] [place] [address] Care Team Providers Name Role Phone Britney Jarrett MD Primary Care Provider Reason for Visit Reason Comments Refill Encounter Details Date Type Department Care Team Description 03/10/2014 Refill [facility] Mary Grace Daniel MD Refill [address] [facility] [address] [facility] [place], [place] [address] [place] [address] [phone] (Wo rk) Social History Tobacco Use Types Packs/Day Years Used Date Smoking Tobacco: Never Alcohol Use Standard Drinks/Week Comments Not Asked 0 (1 standard drink = 0.6 oz pure alcoho l) 1/mo Sex Assigned at Date Recorded Not on file documented as of this encounter Nursing Notes Kiana Pena - 03/10/2014 10:38 AM CDT Patient presented to the acute injury clinic to obtain a copy of her MRI results printed from [facility] were only able to provide images at her 03-04-14 visit due to [facility] website being down. Results printed and provided to the patient. She is also inquiring about a muscle relaxer prescription that was offered to her at office visit and declined. documented in this encounter Plan of Treatment Not on filedocumented as of this encounter Visit Diagnoses Diagnosis Neck pain - Primary Cervicalgia documented in this encounter Care Teams Agricultural Science Professor Relationship Specialty Start Date End Date Britney Jarrett MD PCP - General 04/15/13 04/03/[address] [place] [address] documented as of this encounter
--- OUTSIDE RECORDS SUMMARY | 2022-04-23 15:35 | XMS_ITS | Encounter Summary ---
:1970 Author Organization [facility] Address [address] [address] Care Team Providers Name Role Phone Britney Jarrett MD Primary Care Provider Reason for Visit Reason Comments Refill Encounter Details Date Type Department Care Team Description 11/26/2014 Refill [facility] Bandar Hernandez MD Refill [address] [facility] [address] [facility] [place] [address] 1 [place] [address] [phone] (Wo rk) Social History Tobacco Use Types Packs/Day Years Used Date Smoking Tobacco: Never Alcohol Use Standard Drinks/Week Comments Not Asked 0 (1 standard drink = 0.6 oz pure alcoho l) 1/mo Sex Assigned at Date Recorded Not on file documented as of this encounter Nursing Notes Frances Morgan RN - 11/29/2014 10:28 AM CDT medication approved and e-scribed to pharmacy Frances Morgan RN - 11/28/2014 9:33 AM CDT last filled 05/13/14 #30 documented in this encounter Plan of Treatment Not on filedocumented as of this encounter Visit Diagnoses Not on filedocumented in this encounter Care Teams Cabinet Maker Relationship Specialty Start Date End Date Britney Jarrett MD PCP - General 04/15/13 04/03/[address] [place] [address] documented as of this encounter
--- OUTSIDE RECORDS SUMMARY | 2022-04-23 15:35 | XMS_ITS | Encounter Summary ---
:1970 Author Organization [facility] Address [address], [place] [address] Care Team Providers Name Role Phone Britney Jarrett MD Primary Care Provider Reason for Visit Reason Comments Back Pain Encounter Details Date Type Department Care Team Description 11/02/2015 Office Visit [facility] Doni Conway MD Cervical radiculitis CENTER [address] [place] [address] (Primary Dx) [address] [place], [place] [phone] (Wo rk) Social History Tobacco Use Types Packs/Day Years Used Date Smoking Tobacco: Never Alcohol Use Standard Drinks/Week Comments Not Asked 0 (1 standard drink = 0.6 oz pure alcoho l) 1/mo Sex Assigned at Date Recorded Not on file documented as of this encounter Patient Instructions Patient InstructionsPhiTammy baez, ATC - 11/02/2015 3:[address] Doni Conway MD [facility] Marble Ceiling Installer: Jess Webb Please contact Jess for all administrative questions at [phone] Please contact the Spine Nurse for all medical related questions at [phone] Office Hours: and Friday Medication Requests: Prescriptions are not filled on Weekends or on Weekdays after 3:00PM For all medication refills: Request a refill using MyChart or contact your Pharmacy follow up 2 weeks after injection. Surgical consult documented in this encounter Progress Notes Doni Conway MD - 11/14/2015 6:28 AM CDT Progress Notes signed by Doni Conway MD at 11/15/15 1300 Author: Doni Conway MD Service: (none) Author Type: Physician Filed: 11/15/15 1300 Note Time: 11/14/15 0803 Status: Signed Flattening Machine Operator: Doni Conway MD (Physician) NAME: RAHAT THOMASON MR#: [id number] CSN: [id number] AUTHENTICATING CLINICIAN: Doni Conway MD CONFIRM #: [id number] LOC: 711 CLINIC PROGRESS NOTE DATE OF VISIT: 11/02/2015 : 1970 CHIEF COMPLAINT: Follow up lower back pain and evaluate neck pain. HISTORY OF PRESENT ILLNESS: Rahat is a 45-year-old woman seen for evaluation of both her neck and low back pain. She did have bilateral facet injections performed at L3-4 and L4-5 on 10/17/2015. This did not provide her significant benefit. She reports she is still having bilateral back and leg pain which are roughly equal. She gets radiation into the bilateral calves as well as the medial legs and bilateral feet. She describesthis as both pain and numbness. She describes the pain as painful and burning. She also has bilateral neck pain. She did have a prior fusion anteriorly at C6-7 back in 2008. She also will get intermittent symptoms down both the left and right scapular borders, but no radiation into the upper extremities. Her pain is rated 5/10. PHYSICAL EXAM: Rahat is a pleasant woman in no acute distress. She has full cervical range of motion in all planes.She has 5/5 strength throughout the bilateral upper extremities. Sensation is intact to light touch over the C5 through T1 dermatomes. She has 2+ biceps, triceps and brachioradialis reflexes bilaterally. She has a negative Jeanine's test bilaterally. She has palpable radial pulses. She has a negativeSpurling's test bilaterally. IMAGING: Cervical MRI performed at [facility] on 03/02/2014 was reviewed. Please see full report in Epic. In short, there was severe 5-6 spondylosis with a disk bulge and right foraminal stenosis. There was a disk protrusion at C4-5 which contacts the cord, and there is also mild chronic right foraminal stenosis at this level. ASSESSMENT: 1. Acute on chronic low back pain with a history of a prior posterior fusion at L4-5 and L5-S1. 2. Neck pain with possible cervical radiculitis, also with a prior fusion at C6-7. PLAN: At the patient's request, we did obtain inflammatory markers today to evaluate for any possible underlying inflammatory arthropathy today. I will call her with the results. Since she has not received any benefit from the facet injections, she did request a surgical consult and this was placed today. We will also order a cervical epidural injection in the hopes we can affect her neck and scapular border symptoms. She will follow up with me 2 weeks after the procedure. JLE:ANTWAN C: R:11/14/15 06:36 CONFIRM#:[id number] documented in this encounter Plan of Treatment Not on filedocumented as of this encounter Procedures Procedure Name Priority Date/Time Associated Diagnosis Comme nts C-REACTIVE PROTEIN Routine 11/02/2015 3:37 PM Cervical radicul itis Results for this CDT procedure are i n the results section. ESR Routine 11/02/2015 3:37 PM Cervical radiculitis R esults for this CDT procedure are i n the results section. documented in this encounter Results C-Reactive Protein (11/02/2015 3:37 PM CDT) athologist Signature CRP <0.5 0.0 - 0.5 HP CONVERSION mg/dL Specimen Anatomical Collection Method Collection Time Receive d Time (Source) Location / / Volume Laterality 11/02/2015 3:37 PM 6 4:15 CDT PM CDT Narrative HP CONVERSION - 11/02/2015 4:40 PM CDT Performed at [facility] [place] [address] CLIA number [id number] Doni Conway MD LAB_1 Performing Organization Address City/State/ZIP Code Phon e Number HP CONVERSION ESR (11/02/2015 3:37 PM CDT) [facility] Method Time Signature Sedimentation Rate 2 0 - 20 HP CONVERSI ON mm/hr Specimen Anatomical Collection Method Collection Time Receive d Time (Source) Location / / Volume Laterality 11/02/2015 3:37 PM 6 4:15 CDT PM CDT Narrative HP CONVERSION - 11/02/2015 4:58 PM CDT Performed at [address] [address] CLIA number [id number] Doni Conway MD LAB_1 Performing Organization Address City/[facility] Phon e Number HP CONVERSION documented in this encounter Visit Diagnoses Diagnosis Cervical radiculitis - Primary Brachial neuritis or radiculitis nos documented in this encounter Care Teams Control And Recovery Special Tactics Relationship Specialty Start Date End Date Britney Jarrett MD PCP - General 04/15/13 04/03/161999 [place] [address] documented as of this encounter
--- OUTSIDE RECORDS SUMMARY | 2022-04-23 15:35 | XMS_ITS | Encounter Summary ---
:1970 Author Organization [facility] Address [address] [place] [address] Care Team Providers Name Role Phone Britney Jarrett MD Primary Care Provider Reason for Visit Reason Comments Knee Pain or Injury Encounter Details Date Type Department Care Team Description 08/19/2016 Surgical Consult [facility] Andrade Marsh MD Left knee pain, unspecified chronicity ( Primary Dx); [address] Chondrocalcinosis, left knee; [address] [place], [place] Discoid meniscus of knee, [place] [id number] Social History Tobacco Use Types Packs/Day Years [...] - Inhaled Oxygen Concentration - - Weight 58.1 kg (128 lb) 08/19/2016 2:12 PM PILLOWCASE CLEANER Height 152.4 cm (5') 08/19/2016 2:12 PM PILLOWCASE CLEANER Body Mass Index 25 08/19/2016 2:12 PM PILLOWCASE CLEANER documented in this encounter Progress Notes Andrade Marsh MD - 08/19/2016 3:07 PM CST NAME: RAHAT THOMASON MR#: [id number] CSN: [id number] AUTHENTICATING CLINICIAN: Andrade Marsh MD CONFIRM #: [id number] LOC: 711 CLINIC PROGRESS NOTE DATE OF VISIT: 08/19/2016 : 1970 CHIEF COMPLAINT: Left knee pain. HISTORY OF PRESENT ILLNESS: Ms. Thomason is a 46-year-old female who was referred to us by Dr. Butts for a left knee meniscus tear. She saw him last month after having had pain since May. She had been followed at their clinic. An injection was given in May. She states that initially she felt some improvement in her pain locally within the knee, and thought it felt that there was more lubricant. After that there was nomore improvement and she thought that it did not work overall. There is occasional popping and instability in her knee. She has been seeing her chiropractor for low back pain, as well as C-spine pain. She has a long history of neck and lower back issues for which she has seen therapy, as well as had so me surgeries. She has never had physical therapy for her knee however. PAST MEDICAL HISTORY: Cervical spine herniated nucleus pulposus, spondylolisthesis at L4, disc degeneration and stenosis, for which she is receiving nonsurgical and surgical care over the past year and a half. PAST SURGICAL HISTORY: 1. L5-S1 fusion in 1984. 2. Herniated disc and fusion at C6-7 in 2008. MEDICATIONS: 1. Probiotic. 2. Antibiotics for sinus infection. ALLERGIES: No known drug allergies. 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 She describes her activity as moderate. She denies substance abuse or tobacco use. She endorses occasional alcohol use. She exercises daily including cardioand weights. She uses her seatbelt always. REVIEW OF SYSTEMS: She endorses glass use, sinus infections, arthritis, chronic back pain, numbness and tingling intermittently in her extremities. She denies symptoms in the following systems including general, ears, mouth, cardiac, respiratory, GI, skin, , heme/lymph, endocrine and psychiatric. FAMILY HEALTH HISTORY: 1. Positive for cancer in her brother including throat. 2. Diabetes in her father. 3. Heart disease in father and brother. 4. Arthritis in her mother and father, osteoarthritis type. The intake form was reviewed, signed, and will be scanned into the EMR to act as a supplement to this dictation. PHYSICAL EXAM: Ms. Thomason is a 46-year-old female in no acute distress. She is alert and oriented and appears her stated age. Her cardiac and respiratory rates appear to be regular and unlabored. Her dedicated left knee exam revealed no gross swelling, no ecchymosis, no erythema. She had tenderness to palpation along the medial joint line. There is a minimal effusion. She had full range of motion from 0-135 degrees. She has stable knee to varus and valgus stress testing at 0 and 30 degrees, Stan which had approximately 3 mm of motion and was symmetric with the other side. She also had a negative posterior drawer. Her Sandi's test causes quite a bit of tenderness along the medial joint line and posterior along the joint line. This was especially true with external rotation. There is noclicking or popping with the test however. Distal neurovascular exam is within normal limits. IMAGING: X-rays were reviewed today from May which show chondrocalcinosis along the medial and lateral joint lines of the left knee. There are no fractures, dislocations or other bony lesions seen. The joint space appears to be well maintained. MRI from July was reviewed personally as well as by Dr. Marsh. This MRI shows medial meniscal fraying along the mid third. There is no gross tear radially seen, but this medial signal change in the meniscus may also be the result of the chondrocalcinosis. No displaced component. There is also lateral discoid meniscus which is seen, with a small posterior cyst related to it. There is a minimal joint effusion. ASSESSMENT: A 46-year-old female with mechanical left knee pain likely related to a medial meniscus tear, also with chondrocalcinosis and a lateral discoid meniscus. PLAN: We discussed with Ms. Thomason the diagnoses above. She understands that there are nonoperative and operative treatments of the diagnoses. She understands that we think that she may benefit from either of these courses. A nonoperative plan would include physical therapy and possible injections in the future. The physical therapy would be directed at the knee, hip, and core muscles, to be done in addition to the back therapy that she has been doing. Additionally, she is a candidate for diagnostic arthroscopy of the left knee. This would be to determine if there is a tear that would be treated with a partial meniscectomy. Given her mechanical symptoms, this is highly possible, and would justify this d iagnostic arthroscopy. She is going to consider both of these options, and she will contact us should she desire to proceed with surgical intervention. We discussed the risks and potential complications of knee arthroscopy. I have personally examined this patient, and have reviewed the clinical presentation and progress note, including the pertinent radiographs, with the fellow. I agree with the treatment plan as outlined. The plan was formulated with the fellow on the day of the dictation and personally edited by me where appropriate. I personally discussed the treatment plan with the patient. Dictated by: Woody Snyder MD TT: 25 minutes with 15 minutes counseling and developing treatment plan. 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
--- OUTSIDE RECORDS SUMMARY | 2022-04-23 15:35 | XMS_ITS | Encounter Summary ---
:1970 Author Organization [facility] Address [address], [place] [address] Care Team Providers Name Role Phone Britney Jarrett MD Primary Care Provider Encounter Details Date Type Department Care Team Description 06/22/2015 Notes/Orders [facility] Simin Higginbotham, RN [address] [place], [place] [address] Social History Tobacco Use Types [...] on filedocumented in this encounter Care Teams Car Repairer Relationship Specialty Start Date End Date Britney Jarrett MD PCP - General 04/15/13 04/03/16[address] [place] [address] documented as of this encounter
--- OUTSIDE RECORDS SUMMARY | 2022-04-23 15:35 | XMS_ITS | Encounter Summary ---
:1970 Author Organization [facility] Address [address] [place] [address] Care Team Providers Name Role Phone Britney Jarrett MD Primary Care Provider Encounter Details Date Type Department Care Team Description 06/18/2014 Imaging [facility] Knee pain [address] [place], [place] [address] Social History Tobacco Use Types [...] Name Priority Date/Time Associated Diagnosis Comme nts MR KNEE RT WO IV Routine 06/18/2014 1:29 PM Knee pain Resul ts for this CONT CORSETIER procedure are i n the results section. documented in this encounter Results MR Knee Rt WO IV Cont (06/18/2014 1:29 PM CORSETIER) Anatomical Region Laterality Modality Lower Extremity, Knee, Skeletal, Thigh, Leg Right Other Specimen (Source) Anatomical Location Collection Method / Collectio n Time Received Time / Laterality Volume Impressions 06/19/2014 9:43 AM CORSETIER IMPRESSION: ?? 1. Lower pole patellar full-thickness la teral chondromalacia and mild to moderate medial chondral thinning and fissuring. Chondral surface fibrillation otherwise. Adjacent Hoffa fat pad T2 signal with e nlargement of the small cyst, suggesting lateral fat pad impingement. No evidence of patella jose guadalupe or patellar subluxation. 2. No other internal derangement identif ied. Narrative 06/19/2014 9:43 AM CORSETIER TECHNIQUE: ??Routine MRI of the right knee was performed without contrast. ? COMPARISON: ??03/06/2010 ? FINDINGS: ? MEDIAL COMPARTMENT: ??There are no focal cartilage defects. ??The meniscus appears intact and is without evidence of tear. ? LATERAL COMPARTMENT: ??There are no foca l cartilage defects. ??The meniscus appears intact and is without evidence of tear. ? PATELLOFEMORAL JOINT: ??Lower pole later al patellar full-thickness chondral loss, and median ridge and medial patellar chondral thinning and fissuring, underlying patellar marrow edema, and adjacent lat eral Hoffa fat pad T2 signal hyperintens ity and cyst formation are again noted. This cyst is slightly larger. There is surface fibrillation of the upper pole patellar cartilage. Trochlear cartilage is intact. No patellar subluxation. There is no significant joint effusion or popliteal cyst. ?? No intra-articular loose body is identified . ? LIGAMENTS AND TENDONS: ??The anterior cr uciate ligament is intact. ??The medial collateral ligament is intact. ??The posterior cruciate ligament, iliotibial band, fibular collateral ligament and biceps femoris tendons are intact. ?? The popli teus muscle and tendon are intact. ?? There is no eviden ce of injury to the posterolateral corner supporting structures. EXTENSOR MECHANISM: The quadriceps and p atellar tendons are intact. The medial retinaculum, medial patellofemoral ligament, and lateral retinaculum are intact. ? MARROW AND SOFT TISSUES: ??The marrow si gnal is otherwise within normal limits. ??The soft tissue signal is otherwise normal. ? Procedure Note Enmanuel Mcintosh MD - 01/21/2016Forma tting of this note might be different from the original. TECHNIQUE: Routine MRI of the right knee was performed without contrast. COMPARISON: 03/06/2010 FINDINGS: MEDIAL COMPARTMENT: There are no focal c artilage defects. The meniscus appears intact and is without evidence of tear. LATERAL COMPARTMENT: There are no focal cartilage defects. The meniscus appears intact and is without evidence of tear. PATELLOFEMORAL JOINT: Lower pole lateral patellar full-thickness chondral loss, and median ridge and medial patellar chondral thinning and fissuring, underlying patellar marrow edema, and adjacent lateral Hoffa fat pad T2 signal hyperintensity and cys t formation are again noted. This cyst is slightly larger. There is surface fibrillation of the upper pole patellar cartilage. Trochlear cartilage is intact. No patellar subluxation. There is no significant joint effusion or popliteal cyst. No intra-articular loose body is identified . LIGAMENTS AND TENDONS: The anterior cruc iate ligament is intact. The medial collateral ligament is intact. The posterior cruciate ligament, iliotibial band, fibular collateral ligament and biceps femoris tendons are intact. The popliteus muscle and tendon are intact. There is no evidence of injury to the posterolateral corner supporting structures. EXTENSOR MECHANISM: The quadriceps and p atellar tendons are intact. The medial retinaculum, medial patellofemoral ligament, and lateral retinaculum are intact. MARROW AND SOFT TISSUES: The marrow sign al is otherwise within normal limits. The soft tissue signal is otherwise normal. IMPRESSION IMPRESSION: 1. Lower pole patellar full-thickness la teral chondromalacia and mild to moderate medial chondral thinning and fissuring. Chondral surface fibrillation otherwise. Adjacent Hoffa fat pad T2 signal with enlargement of the small cyst, suggesting lateral fa t pad impingement. No evidence of patella jose guadalupe or patellar subluxation. 2. No other internal derangement identif ied. Jignesh REYNOLDS MRI documented in this encounter Visit Diagnoses Diagnosis Knee pain Pain in joint, lower leg documented in this encounter Care Teams Golf Club Head Inspector Relationship Specialty Start Date End Date Britney Jarrett MD PCP - General 04/15/13 04/03/161999 [place] [address] documented as of this encounter
--- OUTSIDE RECORDS SUMMARY | 2022-04-23 15:35 | XMS_ITS | Encounter Summary ---
:1970 Author Organization [facility] Address [address] [place] [address] Care Team Providers Name Role Phone Britney Jarrett MD Primary Care Provider Reason for Visit Reason Comments Questions Encounter Details Date Type Department Care Team Description 12/18/2015 Telephone [facility] MAURA Manan Lyman MD Questions [address] [facility] [address] [place], [place] [address] [place], [place] [phone] (Wo rk) Social History Tobacco Use Types Packs/Day Years Used Date Smoking Tobacco: Never Alcohol Use Standard Drinks/Week Comments Not Asked 0 (1 standard drink = 0.6 oz pure alcoho l) 1/mo Sex Assigned at Date Recorded Not on file documented as of this encounter Nursing Notes Zonia Rivera RN - 12/21/2015 4:52 PM CDT Provider's support assistant reported that Pt would need to come in for CT results and discussion of plan. Pt contacted and informed that she would need to return to clinic for results per provider's directive. ECT MANAGER PROCESS DEVELOPMENT Zonia Rivera RN - 12/19/2015 1:37 PM CDT Pt called 2nd time and left with information documented (see below). Pt also is requesting return call with CT results; she would like some idea of results prior to her scheduled follow-up 01/02/16. Pt call back # [phone] ECT MANAGER PROCESS DEVELOPMENT Manuel Washington RN - 12/18/2015 3:34 PM CDT Pt has an appointment with provider on 01/02/[address] results and next plan of care. Pt wanted CT results this week. Explained to patient provider will be in the office tomorrow and nurse will have provider look at CT tomorrow. CT was done at [facility]. Pt also states she was seen at [facility] and had injections done down there including her SI joints. Explained to patient she will need to bring her results and discuss the results with Dr. Pearce in clinic. Pt is in agreement with plan. ECT MANAGER PROCESS DEVELOPMENT documented in this encounter Plan of Treatment Not on filedocumented as of this encounter Visit Diagnoses Not on filedocumented in this encounter Care Teams Button Cutting Machine Operator Relationship Specialty Start Date End Date Britney Jarrett MD PCP - General 04/15/13 04/03/161999 [place] [address] documented as of this encounter
--- OUTSIDE RECORDS SUMMARY | 2022-04-23 15:35 | XMS_ITS | Encounter Summary ---
:1970 Author Organization [facility] Address [address] [place] [address] Care Team Providers Name Role Phone Britney Jarrett MD Primary Care Provider Reason for Visit Procedure/Equipment (Routine) - Incomplete Specialty Diagnoses / Procedures Referred By Contact Refer red To Contact Diagnoses Left knee pain, unspecified chronicity Mary Grace Daniel MD Procedures XR Knee Lt 3 Views [address] [facility] [place], [place] [address] Referral ID Status Reason Start Date Expiration Date Visits V isits Requested Authorized [id number] Incomplete 05/26/2016 08/25/2017 1 1 Encounter Details Date Type Department Care Team Description 05/26/2016 Imaging [facility] Mary Grace Daniel, Left knee pain, [address] [facility] unspecified chronicity [place], [place] [address] [address] [phone] [place] [address] (Wo rk) Social History Tobacco Use Types [...] Priority Date/Time Associated Diagnosis Comme nts XR KNEE RT 1-2 VIEWS Routine 05/26/2016 2:20 PM Left knee pain , Results for this COMPARISON CDT unspecified procedure are i n chronicity the results section. XR KNEE LT 3 VIEWS Routine 05/26/2016 2:20 PM Left knee pain, Results for this CDT unspecified procedure are i n chronicity the results section. documented in this encounter Results XR Knee Rt 1-2 Views Comparison (05/26/2016 2:20 PM CDT) Anatomical Region Laterality Modality Lower Extremity, Knee Digital Radiograph y Specimen (Source) Anatomical Location Collection Method / Collectio n Time Received Time / Laterality Volume Narrative 05/30/2016 10:31 AM CDT Left knee series Indication: Pain. Findings: Left knee shows chondrocalcino sis throughout the medial and lateral joint spaces. No obvious fractur e. Minimal patellofemoral degenerative change. Right knee shows we ll-preserved joint spaces. Mary Grace MILES GD XR Knee Lt 3 Views (05/26/2016 2:20 PM CDT) Anatomical Region Laterality Modality Lower Extremity, Knee Digital Radiograph y Specimen (Source) Anatomical Location Collection Method / Collectio n Time Received Time / Laterality Volume Narrative 05/30/2016 10:31 AM CDT Left knee series Indication: Pain. Findings: Left knee shows chondrocalcino sis throughout the medial and lateral joint spaces. No obvious fractur e. Minimal patellofemoral degenerative change. Right knee shows we ll-preserved joint spaces. Mary Grace KASPER documented in this encounter Visit Diagnoses Diagnosis Left knee pain, unspecified chronicity documented in this encounter Care Teams Broomcorn Scraper Relationship Specialty Start Date End Date Britney Jarrett MD PCP - General 04/04/161999 [place] [address] documented as of this encounter
--- OUTSIDE RECORDS SUMMARY | 2022-04-23 15:35 | XMS_ITS | Encounter Summary ---
:1970 Author Organization [facility] Address [address], [place] [address] Care Team Providers Name Role Phone Britney Jarrett MD Primary Care Provider Reason for Visit Procedure/Equipment (Routine) - Incomplete Specialty Diagnoses / Procedures Referred By Contact Refer red To Contact Procedures Andrade Marsh MD Foreign Image(S) MR [address] [facility] [address] Extremity Rt [place], [place] [address] Referral ID Status Reason Start Date Expiration Date Visits V isits Requested Authorized [id number] Incomplete 09/02/2016 12/02/2017 1 1 Encounter Details Date Type Department Care Team Description 08/29/2016 Imaging [id number] RADIOLOGY CENTRAL FILM Andrade Murillo MD LIBRARY [address] [facility] [address] [place], [place] [id number] [place] [address] Social History Tobacco Use Types Packs/Day Years [...] Diagnosis Comme nts FOREIGN IMAGE(S) MR Routine 08/29/2016 12:00 AM R esults for this EXTREMITY RT ZIGZAG STITCHER procedure are i n the results section. documented in this encounter Results Foreign Image(S) MR Extremity Rt (08/29/2016 12:00 AM ZIGZAG STITCHER) Specimen (Source) Anatomical Location Collection Method / Collectio n Time Received Time / Laterality Volume Narrative PN POCT - 09/02/2016 2:34 PM ZIGZAG STITCHER These outside images have been uploaded into PACS. If the results were provided, they will be located on the Me joce tab in the patient's chart. Andrade Marsh MD RAD NON-REPORTABLES Performing Organization Address City/State/ZIP Code Phon e Number POCT PN POCT documented in this encounter Visit Diagnoses Not on filedocumented in this encounter Care Teams Vice President Of Manufacturing Relationship Specialty Start Date End Date Britney Jarrett MD PCP - General 04/04/161999 [place] [address] documented as of this encounter
--- OUTSIDE RECORDS SUMMARY | 2022-04-23 15:35 | XMS_ITS | Encounter Summary ---
:1970 Author Organization [facility] Address [address] [place] [address] Care Team Providers Name Role Phone Britney Jarrett MD Primary Care Provider Reason for Visit Reason Comments Refill Encounter Details Date Type Department Care Team Description 06/18/2015 Refill [facility] Bandar Hernandez MD Refill [address] [facility] [place] [address] [place] [address] [phone] (Wo rk) Social History Tobacco Use Types Packs/Day Years Used Date Smoking Tobacco: Never Alcohol Use Standard Drinks/Week Comments Not Asked 0 (1 standard drink = 0.6 oz pure alcoho l) 1/mo Sex Assigned at Date Recorded Not on file documented as of this encounter Nursing Notes Simin Higginbotham, RN - 06/21/2015 1:59 PM CST [facility] calls regarding refill request of Flexeril. Please approve or deny. Thank you. 06-18-2015 Dr. Flores ASSESSMENT AND PLAN: Right medial knee pain likely secondary to meniscal tear or chondral defect. Diagnosis and treatment options discussed with the patient. Given her duration of symptoms, I recommend MRI of the right knee. She is to follow up after to discuss results and further treatment options. Activity modifications discussed. L OPERATOR HELPER documented in this encounter Plan of Treatment Not on filedocumented as of this encounter Visit Diagnoses Not on filedocumented in this encounter Care Teams Supervisor Baking Relationship Specialty Start Date End Date Britney Jarrett MD PCP - General 04/15/13 04/03/161999 [place] [address] documented as of this encounter
--- OUTSIDE RECORDS SUMMARY | 2022-04-23 15:35 | XMS_ITS | Encounter Summary ---
:1970 Author Organization [facility] Address [address], [place] [address] Care Team Providers Name Role Phone Britney Jarrett MD Primary Care Provider Reason for Visit Reason Comments SHOULDER PAIN Encounter Details Date Type Department Care Team Description 08/26/2016 Surgical Consult [facility] Andrade Marsh MD Calcific tendonitis, right shoulder ([facility] D[facility]); CENTER [address] [place] [address] Chronic right shoulder pain [address] [place] [address] [phone] Social History Tobacco Use Types Packs/Day Years [...] - - Weight 58.1 kg (128 lb) 08/26/2016 2:15 PM WELFARE SERVICE AIDE Height 152.4 cm (5') 08/26/2016 2:15 PM WELFARE SERVICE AIDE Body Mass Index 25 08/26/2016 2:15 PM WELFARE SERVICE AIDE documented in this encounter Progress Notes Andrade Marsh MD - 09/03/2016 11:47 AM CST NAME: RAHAT THOMASON MR#: [id number] CSN: [id number] AUTHENTICATING CLINICIAN: Andrade Marsh MD CONFIRM #: [id number] LOC: 711 CLINIC PROGRESS NOTE DATE OF VISIT: 08/26/2016 : 1970 INTERVAL HISTORY: 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 I had previously seen her for her knee. She is here to specifically address her shoulder today. She has been having right shoulder and arm pain over the last 2 or 3 years. She characterizes it more as a tightness and then increase in pain in the last 6 months. She also has a history of 2 disc herniations, thinks this may be related to overuse of lifting weights. Sleeping on that side, lifting arm above her head, rotating the arm, holding weight all seem to make her symptoms worse. Heat, rest, notlifting things make her symptoms better. Her treatment to-date has included an injection in her neck. She has also tried some physical therapy. Has a history of a neck fusion at C6-C7, also history of a low back fusion L5- S1, history of carpal tunnel surgery as well. She occasionally will use some Tylenol and a muscle relaxant. She is right-hand dominant. PHYSICAL EXAM: Height 60 inches tall. Weight 128 pounds. RIGHT SHOULDER: There is no erythema or ecchymosis. She has a positive Neer's. Negative Anderson. Pain to the posterior joint line with cross-body testing. No tenderness on her AC joint. Had pain with resisted thumbs down abduction. Had good strength in her rotator cuff but gave way pretty readily withresisted thumbs down abduction secondary to pain. She had a painful [place]'s test. Negative lift-off. Had good strength. Maybe some mild discomfort with lift-off and belly-press tests. She is not tender in her bicipital groove. She has full elbow extension. Her arm and forearm compartments are soft to palpation. Her distal neurovascular exam is grossly within normal limits today. IMAGING: There are x-rays from [facility] from 08/16/2016. They are imported. Formal read from another provider. My independent review demonstrates no acute fracture is seen. The glenohumeral joint is located. There are calcific deposits noted in the rotator cuff consistent with calcific tendinitis. ASSESSMENT: 1.Calcific tendinitis, right shoulder. 2.Possible associated rotator cuff tear, right shoulder. 3.Pain, right shoulder. PLAN: I reviewed the clinical findings with her today. We discussed treatment options moving forward. Based on our discussion, she would like to get an MRI of her right shoulder for further characterization of her rotator cuff. I am in agreement with that. We had a discussion regarding getting an MRI. She does get a little claustrophobia. I think that possibly getting an arthrogram would be helpful as wellto help assess her labrum and biceps anchor as well. We are going to schedule this at [facility]. Hopefully, they can do it on their open scanner. She will follow up with me after the MRI. Total time 15 minutes, 10 minutes counseling and developing our treatment plan. GBF: C: R:09/01/16 22:06 CONFIRM#:[id number] ARE SERVICE AIDE documented in this encounter Plan of Treatment Not on filedocumented as of this encounter Visit Diagnoses Diagnosis Calcific tendonitis, right shoulder - Pr imary Calcium deposits in tendon and bursa Chronic right shoulder pain Pain in joint, shoulder region documented in this encounter Care Teams Seed Sales Manager Relationship Specialty Start Date End Date Britney Jarrett MD PCP - General 04/04/[address] [place] [address] documented as of this encounter
--- OUTSIDE RECORDS SUMMARY | 2022-04-23 15:35 | XMS_ITS | Encounter Summary ---
:1970 Author Organization [facility] Address [address], [place] [address] Care Team Providers Name Role Phone Britney Jarrett MD Primary Care Provider Reason for Visit Reason Comments Back Pain Encounter Details Date Type Department Care Team Description 09/28/2015 Surgical Consult [facility] Doni Conway, [facility] facet joint CENTER MD syndrome (Primary [address] [facility] [address] [place] [address] Dr Dx) [place] [address] [phone] Social History Tobacco Use Types Packs/Day Years [...] - Inhaled Oxygen Concentration - - Weight 58.5 kg (129 lb) 09/28/2015 3:38 PM TRAFFIC OPERATOR Height 152.4 cm (5') 09/28/2015 3:38 PM TRAFFIC OPERATOR Body Mass Index 25.19 09/28/2015 3:38 PM TRAFFIC OPERATOR documented in this encounter Patient Instructions Patient InstructionsMelani Hector MA - 09/28/2015 5:[address] Doni Conway MD Orthopeadic Spine Ornamental Machine Operator: Jess Webb Please contact Jess for all administrative questions at [phone] Please contact the Spine Nurse for all medical related questions at [phone] Office Hours: and Friday Medication Requests: Prescriptions are not filled on Weekends or on Weekdays after 3:00PM For all medication refills: Request a refill using MyChart or contact your Pharmacy Your Provider would like you to schedule a Follow Up as needed with Dr. Conway Appointment Scheduling: Can be done at the service desk lead or by calling our main number [phone] Follow up as discussed - possible consult with spine surgeon FIC OPERATOR documented in this encounter Progress Notes Doni Conway MD - 10/25/2015 2:41 PM CDT Progress Notes signed by Doni Conway MD at 10/26/15 1046 Author: Doni Conway MD Service: (none) Author Type: Physician Filed: 10/26/15 1046 Note Time: 10/25/151526 Status: Signed Enamel Buffer: Doni Conway MD (Physician) NAME: RAHAT THOMASON MR#: [id number] CSN: [id number] AUTHENTICATING CLINICIAN: Doni Conway MD CONFIRM #: [id number] LOC: 711 CLINIC PROGRESS NOTE DATE OF VISIT: 09/28/2015 : 1970 CHIEF COMPLAINT: Lower back pain. HPI: Rahat is a 45-year-old woman who has had longstanding lower back pain. She did have a fusion at L4-L5 and L5-S1 performed in 1985. In 07/2015 she did go in to see a chiropractor for her neck. At that time he ended up also doing some lower back adjustments. After 3 such adjustments she began developingtingling in her bilateral lower legs. After that she went to [facility] in [place] in September. She had 2 visits and her back pain increased after this. Now she is experiencing bilateral lower neck pain along with some radiation into her right calf and into the balls of her feet. She did have an MRI performed at [facility] on 07/25/2015, which showed a solid noninstrumented bilateral posterior fusion at L4-L5 and L5-S1. Additionally there was severe disk degeneration along with bridging osteophytes and severe bilateral foraminal stenosis and compression of the L5 ganglion. She reports that her pain ranges from 5-9/10 in intensity. Most of her pain is in the back and the symptoms in the leg are more tingling in nature. Her symptoms are worse with any prolonged sitting or standing. Her symptoms are also worse with lifting. Her symptoms are better with stretching. PAST MEDICAL HISTORY: She also has a history of neck pain and had a C6-7 fusion in 2008. 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 She lives with her . She is a nonsmoker. She reports occasional social use of alcohol. REVIEW OF SYSTEMS: A 14-point review of systems was performed and was unremarkable except as noted in the history of present illness. FAMILY HISTORY: No family history of cancer, cardiac disease or diabetes is reported. EXAM: Rahat is a pleasant woman in no acute distress. She has relatively full lumbar flexion and extension. She has 5/5 strength throughout the bilateral lower extremities. Sensation is intact to light touchover the L4, L5 and S1 dermatomes. She has 2+ patellar and Achilles reflexes bilaterally. She has a n egative straight leg raise bilaterally. She has a negative femoral stress test bilaterally. She has no Yuri or long tract signs present. She ambulates with a normal gait. She has palpable posterior tibial pulses. Her SI provocation tests are negative. She has a negative JORDEN. She has a negative Stinchfield test bilaterally. ASSESSMENT: Worsening low back pain likely secondary to some facet irritation after a twisting maneuver performed at both the chiropractic office and on the Campanisto-Truli machines at [facility]. PLAN: I will schedule her for lumbar facet injections at the L3-4 level bilaterally and if possible at theL4-5 level. I will have her followup with me 2 weeks following the procedure. CHRIST:SOFY C: R:10/25/15 14:51 CONFIRM#:[id number] Melani Hector MA - 10/12/2015 10:49 AM CST Symptoms: Onset of pain: repeat occurrence low back pain, right leg pain, left leg pain and cervical pain Pain severity: 9 Timing: constant Quality: aching, burning, dull, sharp and stabbing Trend: Worsening Oswestry: Pain is aggravated by: sitting, standing, walking, lifting, bending, twisting, reaching, jarring, bowel movement, housework and running Pain is improved by: exercises Associated symptoms: Numbness/tingling: left leg and right leg Red flags: Yes. duration of symptoms greater than 6 weeks despite conservative treatment plan, neurologic deficits including numbness, tingling, weakness, fercal incontinence, bladder dysfunction, or focal neurologic deficit, abdominal pain, unrelenting night pain and pain continues at rest. Yellow flags: Yes. psychosocial issues - affecting activities/life/ability to cope with ongoing pain/problems Sleep problems: yes Weakness: left leg and right leg Bladder incontinence: no Depression: no Treatment: physical therapy, traction, massage, chiropractic treatment, heat, icing, home exercises,medications and surgery Review of systems: Please see Epic flowchart which was reviewed. Pertinent positives are: see dictation. Family History: family history is not on file. Family history of spine disease: yes - dad has spondylolisthesis in low back, sister has in mid/low back, other sister has degenerative disc disease Social History: reports that she has never smoked. She has never used smokeless tobacco. She reportsthat she drinks alcohol. She reports that she does not use illicit drugs. FIC OPERATOR documented in this encounter Plan of Treatment Not on filedocumented as of this encounter Visit Diagnoses Diagnosis Lumbar facet joint syndrome ([facility]) - Prim christine documented in this encounter Care Teams Dish Technician Relationship Specialty Start Date End Date Britney Jarrett MD PCP - General 04/15/13 04/03/161999 [place] [address] documented as of this encounter
--- OUTSIDE RECORDS SUMMARY | 2022-04-23 15:35 | XMS_ITS | Encounter Summary ---
:1970 Author Organization [facility] Address [address], [place] [address] Care Team Providers Name Role Phone Britney Jarrett MD Primary Care Provider Reason for Visit Reason Comments Pre-procedure Call Encounter Details Date Type Department Care Team Description 10/13/2015 Telephone [facility] Rekha Levy, Pre-procedure Call [address] [place], [place] [address] Social History Tobacco Use Types [...] on filedocumented in this encounter Care Teams Food Dehydrator Operator Relationship Specialty Start Date End Date Britney Jarrett MD PCP - General 04/15/13 04/03/161999 [place] [address] documented as of this encounter
--- OUTSIDE RECORDS SUMMARY | 2022-04-23 15:35 | XMS_ITS | Encounter Summary ---
:1970 Author Organization [facility] Address [address] [address] Care Team Providers Name Role Phone Britney Jarrett MD Primary Care Provider Reason for Visit Reason Comments Post-Op Follow Up Call Encounter Details Date Type Department Care Team Description 10/18/2015 Telephone [facility] Frances Reddy RN Post-Op Follow Up Call [address] [place], [place] [address] Social History Tobacco Use Types Packs/Day Years Used Date Smoking Tobacco: Never Alcohol Use Standard Drinks/Week Comments Not Asked 0 (1 standard drink = 0.6 oz pure alcoho l) 1/mo Sex Assigned at Date Recorded Not on file documented as of this encounter Plan of Treatment Not on filedocumented as of this encounter Visit Diagnoses Not on filedocumented in this encounter Care Teams Science Analyst Relationship Specialty Start Date End Date Britney Jarrett MD PCP - General 04/15/13 04/03/161999 [place] [address] documented as of this encounter
--- OUTSIDE RECORDS SUMMARY | 2022-04-23 15:35 | XMS_ITS | Encounter Summary ---
:1970 Author Organization [facility] Address [address] [place] [address] Care Team Providers Name Role Phone Britney Jarrett MD Primary Care Provider Reason for Referral Procedure/Equipment (Routine) - Incomplete Specialty Diagnoses / Procedures Referred By Contact Refer red To Contact Diagnoses Chronic pain of left knee Richard Butts MD Procedures MR Knee Lt WO IV Cont [address] [facility] [place] 1143 1 Referral ID Status Reason Start Date Expiration Date Visits V isits Requested Authorized [id number] Incomplete 07/29/2016 10/28/2017 1 1 NEER SYSTEM ADMINISTRATOR Reason for Visit Reason Comments Knee Pain or Injury Lt knee pain x 5 mos Encounter Details Date Type Department Care Team Description 07/29/2016 Office Visit [facility] Richard Butts, Chronic pain of left Urgent Care knee (Primary Dx) [address] [facility] [place] [address] [place] [phone] [id number] (Wo rk) Social History Tobacco Use Types [...] Sign Reading Time Taken Comments Blood Pressure 110/68 07/29/2016 3:20 PM ENGINEER SYSTEM ADMINISTRATOR Pulse - - Temperature 36.4 ??C (97.6 ??F) 07/29/2016 3:20 PM ENGINEER SYSTEM ADMINISTRATOR Respiratory Rate - - Oxygen Saturation - - Inhaled Oxygen Concentration - - Weight - - Height - - Body Mass Index - - documented in this encounter Patient Instructions Patient InstructionsSimin Epperson ATC - 07/29/2016 3:[address] Richard Butts MD Sports & Orthopaedic Medicine [facility] Medication Requests: Prescriptions are not filled on Weekends or on Weekdays after 3:00PM For all medication refills: Request a refill using [facility] or contact your Pharmacy [facility] Nurse Line: [phone] Please contact [facility] Nurse line for all medical requests and questions Clinical Researcher: Adina Gamez Please call Adina for all administrative questions at [phone] MRI Scheduling: To schedule an MRI at [facility] please call [phone] Left knee pain Follow up in clinic for MRI results NEER SYSTEM ADMINISTRATOR documented in this encounter Progress Notes Richard Butts MD - 07/30/2016 9:18 AM CST NAME: RAHAT THOMASON MR#: [id number] CSN: [id number] AUTHENTICATING CLINICIAN: Richard Butts MD CONFIRM #: [id number] LOC: 711 CLINIC PROGRESS NOTE DATE OF VISIT: 07/29/2016 : 1970 Rahat Thomason is here for left knee pain that has been present for the last 5-6 months prior to seeing Dr. Daniel on 05/26/2016. She is a followup from Dr. Daniel's visit. She had had a knee steroid injection for possible chondrocalcinosis pain and this only helped 10-15%. She still has pain that f eels like it is specific to the knee with bending, twisting and straightening her knee. Her pain is over both the mediolateral and posterior aspect of the knee. It feels like there might be a deflated tennis ball in the back of her knee when she bends it. 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 She denies any swelling. She feels like her low back pain has been feeling better recently, and she does have a significant history of low backissues including L5-S1 spinal fusion and potential spine stimulator from [place]. Pain is 3-8/10. REVIEW OF SYSTEMS: No fever or rash. No diabetes or stomach problems. Numbness and tingling positive as it relates to the low back. PAST SURGICAL HISTORY: Carpal tunnel syndrome, lumbar spinal fusion and herniated disc and fusion at C6-C7. FAMILY HISTORY: Joint problems, diabetes and heart problems. 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 ALLERGIES: None. MEDICATIONS: Per Epic. OBJECTIVE: Height 60 inches. Weight 129 pounds. Temperature 97.6. Blood pressure 110/68. Well-appearing female in no acute distress. Alert and oriented x3. LEFT KNEE: No effusion. No obvious mass or cyst palpated. Full flexion with pain. Full extension. Varus, valgus, Stan and posterior drawer intact. IMAGING: Left knee x-rays from 05/26/2016 show medial and lateral compartment chondrocalcinosis. ASSESSMENT: Left knee pain with features that might suggest a left knee joint source such as meniscal tear, chondrocalcinosis or other pathology such as popliteal cyst. Also possible is radicular symptoms as she has a significant lumbar history that could be related to spinal stenosis. PLAN: Recommended MRI of her left knee given her lack of significant improvement with her knee joint steroid injection. Will have her follow up after MRI results to determine if there is a knee joint source that needs to be treated or whether she should be referred back to her managing spine doctor for a radicular source. SAB:CORNELIA C: R:07/29/16 19:28 CONFIRM#:[id number] NEER SYSTEM ADMINISTRATOR documented in this encounter Plan of Treatment Not on filedocumented as of this encounter Results MR Knee Lt WO IV Cont (07/29/2016 4:50 PM ENGINEER SYSTEM ADMINISTRATOR) Anatomical Region Laterality Modality Lower Extremity, Knee, Skeletal, Thigh, Leg Left Magnetic Resonance Specimen (Source) Anatomical Collection Method Collection Time Re ceived Time Location / / Volume Laterality 07/29/2016 4:28 PM ENGINEER SYSTEM ADMINISTRATOR Impressions 07/30/2016 8:42 AM ENGINEER SYSTEM ADMINISTRATOR IMPRESSION: 1. Mild strain in the musculotendinous p ortion of the popliteus and adjacent posterior lateral joint capsule. 2. No other evidence of significant liga mentous or tendinous injury. 3. 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 4. Small tears in the medial and lateral menisci as described above. Narrative 07/30/2016 8:42 AM ENGINEER SYSTEM ADMINISTRATOR TECHNIQUE: Routine MRI of the left knee was performed without contrast. COMPARISON: None. FINDINGS: MEDIAL COMPARTMENT: Mild fraying of the articular cartilage in the weightbearing portion of the medial femoral condyle. Small horizontal tear in the junction of the anterior horn and body of the medial meniscus extending to the inferior artic ular surface. LATERAL COMPARTMENT: There are no focal cartilage defects. Discoid lateral meniscus variant with mild apical free edge fraying and tearing of the posterior horn of the lateral meniscus. PATELLOFEMORAL JOINT: Moderate-sized are a of moderate thinning fraying and full- thickness fissuring in the articular cartilage of the patellar apex. Small joint effusion. No osteocartilaginous bodies are identified. LIGAMENTS AND TENDONS: The anterior and posterior cruciate ligaments, medial collateral ligament, iliotibial band, fibular collateral ligament and biceps femoris tendons are intact. Mild strain in the m usculotendinous portion of the popliteus and adjacent posterior lateral joint capsule. There is no other evidence of injury to the posterolateral corner supporting structures. EXTENSOR MECHANISM: The quadriceps and p atellar tendons are normal. The medial retinaculum, medial patellofemoral ligament, and lateral retinaculum are normal. MARROW AND SOFT TISSUES: There is no abn ormal signal or evidence of soft tissue mass. Procedure Note Giovanny Chirinos MD - 07/30/2016For matting of this note might be different from the original. TECHNIQUE: Routine MRI of the left knee was performed without contrast. COMPARISON: None. FINDINGS: MEDIAL COMPARTMENT: Mild fraying of the articular cartilage in the weightbearing portion of the medial femoral condyle. Small horizontal tear in the junction of the anterior horn and body of the medial meniscus extending to the inferior articular surf sruthi. LATERAL COMPARTMENT: There are no focal cartilage defects. Discoid lateral meniscus variant with mild apical free edge fraying and tearing of the posterior horn of the lateral meniscus. PATELLOFEMORAL JOINT: Moderate-sized are a of moderate thinning fraying and full- thickness fissuring in the articular cartilage of the patellar apex. Small joint effusion. No osteocartilaginous bodies are identified. LIGAMENTS AND TENDONS: The anterior and posterior cruciate ligaments, medial collateral ligament, iliotibial band, fibular collateral ligament and biceps femoris tendons are intact. Mild strain in the musculotendinous portion of the popliteus and adjacent po sterior lateral joint capsule. There is no other evidence of injury to the posterolateral corner supporting structures. EXTENSOR MECHANISM: The quadriceps and p atellar tendons are normal. The medial retinaculum, medial patellofemoral ligament, and lateral retinaculum are normal. MARROW AND SOFT TISSUES: There is no abn ormal signal or evidence of soft tissue mass. IMPRESSION IMPRESSION: 1. Mild strain in the musculotendinous p ortion of the popliteus and adjacent posterior lateral joint capsule. 2. No other evidence of significant liga mentous or tendinous injury. 3. 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 4. Small tears in the medial and lateral menisci as described above. Richard Butts MD RAD MRI documented in this encounter Visit Diagnoses Diagnosis Chronic pain of left knee - Primary Pain in joint, lower leg Chronic pain of left knee Pain in joint, lower leg documented in this encounter Care Teams Pitch Flaker Relationship Specialty Start Date End Date Britney Jarrett MD PCP - General 04/04/161999 [place] [address] documented as of this encounter
--- OUTSIDE RECORDS SUMMARY | 2022-04-23 15:35 | XMS_ITS | Encounter Summary ---
:1970 Author Organization [facility] Address [address] [place] [address] Care Team Providers Name Role Phone Britney Jarrett MD Primary Care Provider Reason for Visit Reason Comments Back Pain Neck Pain Encounter Details Date Type Department Care Team Description 12/05/2015 Surgical Consult [facility] Thiago Pearce stenosis of CENTER Manan Harmon MD lumbosacral region [address] (Primary Dx) [place], [place] [address] [facility] [address] [place] [address] Social History Tobacco Use Types [...] - - Weight 58.5 kg (129 lb) 12/05/2015 2:33 PM CDT Height 152.4 cm (5') 12/05/2015 2:33 PM CDT Body Mass Index 25.19 12/05/2015 2:33 PM CDT documented in this encounter Patient Instructions Patient InstructionsAnastasiya Nunez MA - 12/05/2015 2:[address] Manan Pearce MD Orthopaedic Spine Surgery Please contact Vicky for all administrative questions at [phone] Please contact the Spine Nurse for all medical related questions at [phone] Medication Requests: Prescriptions are not filled on Weekends or on Weekdays after 3:00PM For all medication refills: Request a refill using MyChart or contact your Pharmacy documented in this encounter Progress Notes Manan Pearce MD - 12/05/2015 3:55 PM CDT Progress Notes signed by Manan Pearce MD at 12/19/15 1042 Author: Manan Pearce MD Service: (none) Author Type: Physician Filed: 12/19/15 1042 Note Time: 12/07/151435 Status: Signed Upholsterer Assembly Line: aMnan Pearce MD (Physician) NAME: RAHAT THOMASON MR#: [id number] CSN: [id number] AUTHENTICATING CLINICIAN: Manan Pearce MD CONFIRM #: [id number] LOC: 711 CLINIC PROGRESS NOTE DATE OF VISIT: 12/05/2015 : 1970 Ms. Thomason presents today with a chief complaint of low back pain with paresthesias into bilateral extremities. 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 Conway in regards to low back pain that has been progressive in nature since 07/2015 when she started visiting with her chiropractor for some low back ache. This has been worsened in her opinion by the manual manipulation and significant lumbar treatment she was receiving. Symptoms now are worse with sitting, standing, exercising, lifting, bending, twisting and alleviated with lying down and/or stretching. Symptoms significantly worsened with extension of the low back. She denies any bowel or bladder dysfunction or coordination issues or weakness into the lower extremities, but does describe paresthesias that radiates into bilateral extremities along the buttocks, posterolateral thigh, to theposterior calf and into the bottom of her feet of both lower extremities. Describes her symptoms as 60% back, 40% bilateral lower extremity, right equal to left. 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 Niko had a bilateral intraarticular facet joint injections at L3-4, also attempted at L4-5 but unsuccessful. The facet joint injections at L3-4 were not significantly diagnostic for her nor did they provide any significant relief at this point. She is following with the surgeons and team down at [facility] as well and they performed an EMG of bilateral lower extremities that does reveal chronic S1 electrophysiology, but no acute or active denervation. PAST MEDICAL HISTORY: Relatively benign as Ms. Thomason is a healthy, 45-year-old female denying hypertension, cardiac disease, pulmonary disease, personal history of cancer, stroke, seizure, diabetes, GI, renal or liver disease. PAST SURGICAL HISTORY: She had C6-7 anterior cervical decompression and fusion done by Dr. Dupree 7 years ago. She had an L5-S1 grade 2 spondylolisthesis [place] [address] Boateng . She had tonsils and adenoids removedas a child. Bilateral carpal tunnel release and breast augmentation. FAMILY MEDICAL HISTORY: Significant for her dad having low back surgery as well as a sister requiring surgery. CURRENT MEDICATIONS: None. ALLERGIES: No known drug allergies. SOCIAL HISTORY: Denies smoking or tobacco use. Rarely consumes alcohol. 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 REVIEW OF SYSTEMS: A 13-point review of systems was undertaken by myself in the presence of the patient and found to benegative unless otherwise stated in the HPI. PHYSICAL EXAM: Ms. Thomason is a pleasant, 45-year-old female who presents today standing 60 inches tall, weighs 129pounds. Her gait is symmetric and balanced, free from ataxia, antalgia or any myelopathic symptoms. Inspection of her lumbar spine reveals the midline incision that is well-healed free from erythema, edema or any obvious signs of infection. She does have palpable tenderness over both the midline and paraspinal muscles bilaterally. Sciatic notch tenderness is also positive bilaterally. Range of motionis more painful with extension but reduced only slightly, full with flexion and lateral bending bilaterally. Motor strength testing of bilateral extremities reveals 5/5 strength that is symmetric aboutthe iliopsoas, quads, hamstrings, anterior tib, EHL, peroneal and gastrocs bilaterally. Sensation remains intact to light touch in bilateral extremities. Negative clonus bilaterally. Straight leg raiseis negative bilaterally. Hip range of motion full with internal and external rotation bilaterally. Erickson's test is negative bilaterally in supine position. IMAGING: MRI of Ms. Thomason's lumbar spine available for review in the [employer] PACS system here today does reveal posterior solid arthrodesis L4 through the sacrum un-instrumented as well as a grade 3 spondylolisthesis of L5 on S1 and bilateral foraminal stenosis at L5-S1. There is slight anterolisthesisof L3 on L4 with a facet joint arthropathy bilaterally at L3-4. ASSESSMENT: Lumbar spondylolisthesis L3-4, facet joint arthropathy likely the source of her back pain at this point. Stable posterior spinal fusion L4 to the sacrum done at an outside institution in 1984. PLAN: At this point, multiple treatment options and alternatives were discussed in detail by myself and Dr. Pearce. At this point we do recommend two things, a CT scan of her lumbar spine as well as medial branch blocks at L3-4 bilaterally and if effective proceed on with rhizotomies of the L3-4 facet joints. Ms. Thomason was in agreement with the plan. All questions were answered appropriately. She willfollowup after the CT scan and injections to discuss the results as well as options moving forward. I, Kenton Yanes PA-C, am serving as a scribe on 12/05/2015 to personally document services performed and statements dictated by Dr. Manan Pearce. I, Dr. Manan Pearce, was present during the services described in this documentation. I have reviewed the document for accuracy. Dictated by: Kenton Yanes PA-C JDS:SOFY C: R:12/05/15 16:38 CONFIRM#:[id number] documented in this encounter Plan of Treatment Not on filedocumented as of this encounter Visit Diagnoses Diagnosis Foraminal stenosis of lumbosacral region ([facility]) - Primary Spinal stenosis, lumbar region, without neurogenic claudication documented in this encounter Care Teams Terrazzo Tile Setter Relationship Specialty Start Date End Date Britney Jarrett MD PCP - General 04/15/13 04/03/16[address] [facility] [place] [address] documented as of this encounter
--- OUTSIDE RECORDS SUMMARY | 2022-04-23 15:35 | XMS_ITS | Encounter Summary ---
:1970 Author Organization [facility] Address [address] [place] [address] Care Team Providers Name Role Phone Britney Jarrett MD Primary Care Provider Encounter Details Date Type Department Care Team Description 06/18/2014 Imaging [facility] Knee pain [address] [place], [place] [address] Social History Tobacco Use Types [...] Diagnosis XR KNEE LT 1-2 VIEWS Routine 06/18/2014 12:22 PM Knee pain Results for this COMPARISON MACHINE SET UP TECHNICIAN procedure are i n the results section. XR KNEE RT 3 VIEWS Routine 06/18/2014 12:22 PM Knee pain Re sults for this MACHINE SET UP TECHNICIAN procedure are i n the results section. documented in this encounter Results XR Knee Lt 1-2 Views Comparison (06/18/2014 12:22 PM MACHINE SET UP TECHNICIAN) Anatomical Region Laterality Modality Lower Extremity, Knee Other Specimen (Source) Anatomical Location Collection Method / Collectio n Time Received Time / Laterality Volume Narrative 06/19/2014 10:07 AM MACHINE SET UP TECHNICIAN Three views of the right knee. AP, lateral and sunrise views are negative for fracture subluxation or joint space abnormality. Two views the left knee, AP and sunrise views are negative for fracture or subluxation. There is intrameniscal calcification present. Procedure Note Jignesh Flores - 01/21/2016Formatting of t his note might be different from the original. Three views of the right knee. AP, later al and sunrise views are negative for fracture subluxation or joint space abnormality. Two views the left knee, AP and sunrise views are negative for fracture or subluxation. There is intrameniscal calcification present. Jignesh CHAPARRO XR Knee Rt 3 Views (06/18/2014 12:22 PM MACHINE SET UP TECHNICIAN) Anatomical Region Laterality Modality Lower Extremity, Knee Other Specimen (Source) Anatomical Location Collection Method / Collectio n Time Received Time / Laterality Volume Narrative 06/19/2014 10:07 AM MACHINE SET UP TECHNICIAN Three views of the right knee. AP, lateral and sunrise views are negative for fracture subluxation or joint space abnormality. Two views the left knee, AP and sunrise views are negative for fracture or subluxation. There is intrameniscal calcification present. Procedure Note Jignesh Flores - 01/21/2016Formatting of t his note might be different from the original. Three views of the right knee. AP, later al and sunrise views are negative for fracture subluxation or joint space abnormality. Two views the left knee, AP and sunrise views are negative for fracture or subluxation. There is intrameniscal calcification present. Jignesh CHAPARRO documented in this encounter Visit Diagnoses Diagnosis Knee pain Pain in joint, lower leg documented in this encounter Care Teams Cognos Report Developer Relationship Specialty Start Date End Date Britney Jarrett MD PCP - General 04/15/13 04/03/161999 [place] [address] documented as of this encounter
--- OUTSIDE RECORDS SUMMARY | 2022-04-23 15:35 | XMS_ITS | Encounter Summary ---
:1970 Author Organization [facility] Address [address] [place] [address] Care Team Providers Name Role Phone Britney Jarrett MD Primary Care Provider Reason for Referral Therapies (Routine) - Closed Specialty Diagnoses / Procedures Referred By Contact Refer red To Contact Diagnoses Calcific tendinitis Andrade Marsh MD [address] [place] [address] [place], [place] [address] Referral ID Status Reason Start Date Expiration Date Visits Requ ested Visits Authorized [id number] Closed 09/02/2016 11/01/2016 1 1 AS GOODS SUPERVISOR (Routine) - Closed Specialty Diagnoses / Procedures Referred By Contact Refer red To Contact Diagnoses Calcific tendinitis Andrade Marsh MD Procedures Triamcinolone Acet Inj Nos: (per 10 mg) [address] [facility] [place], [place] [address] Referral ID Status Reason Start Date Expiration Date Visits Requ ested Visits Authorized [id number] Closed 09/07/2016 12/07/2017 1 1 AS GOODS SUPERVISOR Reason for Visit Reason Comments SHOULDER PAIN Encounter Details Date Type Department Care Team Description 09/02/2016 Office Visit [facility] Andrade Marsh MD Calcific tendinitis, CENTER [address] right shoulder [address] [place], [place] (Primary Dx) [place], [place] [id number] [phone] (Wo rk) Social History Tobacco Use Types [...] documented as of this encounter Progress Notes Andrade Marsh MD - 09/10/2016 9:24 AM CST NAME: RAHAT THOMASON MR#: [id number] CSN: [id number] AUTHENTICATING CLINICIAN: Andrade Marsh MD CONFIRM #: [id number] LOC: 711 CLINIC PROGRESS NOTE DATE OF VISIT: 09/02/2016 : 1970 INTERVAL HISTORY: Ms. Thomason is seen in follow up today. In the interval time period she has undergone an MRI arthrogram of her shoulder. There has been no significant change in her symptoms. MRI: MRI is reviewed from [facility] dated 08/29/2016. MRI demonstrates calcific tendinitis involving the central portion of the right supraspinatus. There is some associated tendinopathy. No full-thickness rotator cuff tear seen. There is some spurring noted on the undersurface of the acromion. Long head of the biceps is intact. No definite labral tear seen. ASSESSMENT: 1.Calcific tendinitis with calcium deposit, supraspinatus, right shoulder. 2.Bursitis/rotator cuff tendinopathy, right shoulder. 3.Pain, right shoulder. PLAN: Reviewed clinical findings with her today. We reviewed her MRI. We discussed options for treatment moving forward. She would like to try a subacromial corticosteroid injection today. I reminded her of the risks and benefits of that. If she does not get good relief from that we discussed other options i ncluding ultrasound-guided trephination of this area. We also discussed surgical option. A surgical option would be a right shoulder arthroscopic calcific tendonitis debridement, subacromial decompression with acromioplasty with or without rotator cuff repair. We discussed the operation. We discussed the typical rehabilitation following surgery as well including possible shoulder immobilizer use if arotator cuff repair would be needed. Her questions were answered. She wished to proceed with the injection today. PROCEDURE NOTE: The posterior aspect of the right shoulder was prepped in the usual aseptic technique. A 22-gauge needle was used to inject 4 mL of 1% lidocaine without epinephrine and 1 mL of Kenalog (40 mg) was injected into the subacromial space. There were no immediate complications. A sterile dressing was applied. Total time 15 minutes, 10 minutes counseling and developing our treatment plan. GBF:JOSELUIS C: R:09/07/16 13:47 CONFIRM#:[id number] AS GOODS SUPERVISOR documented in this encounter Plan of Treatment Scheduled Referrals Name Type Priority Associated Diagnoses Order S [facility] Physical Therapy Referral Routine Calcific tendinitis, rig ht Ordered: 09/02/2016 shoulder documented as of this encounter Visit Diagnoses Diagnosis Calcific tendinitis, right shoulder - Pr imary Calcium deposits in tendon and bursa documented in this encounter Care Teams In Classroom Tutor Relationship Specialty Start Date End Date Britney Jarrett MD PCP - General 04/04/161999 [place] [address] documented as of this encounter
--- OUTSIDE RECORDS SUMMARY | 2022-04-23 15:35 | XMS_ITS | Encounter Summary ---
:1970 Author Organization [facility] Address [address], [place] [address] Care Team Providers Name Role Phone Britney Jarrett MD Primary Care Provider Reason for Visit Reason Comments Pre-procedure Call Encounter Details Date Type Department Care Team Description 11/22/2015 Telephone [facility] Frances Reddy RN Pre-procedure Call [address] [place], [place] [address] Social History Tobacco Use Types [...] on filedocumented in this encounter Care Teams Nature Photographer Relationship Specialty Start Date End Date Britney Jarrett MD PCP - General 04/15/13 04/03/161999 [place] [address] documented as of this encounter
--- OUTSIDE RECORDS SUMMARY | 2022-04-23 15:35 | XMS_ITS | Encounter Summary ---
:1970 Author Organization [facility] Address [address] [place] [address] Care Team Providers Name Role Phone Britney Jarrett MD Primary Care Provider Reason for Visit Reason Comments Knee Pain or Injury Encounter Details Date Type Department Care Team Description 06/18/2014 Office Visit [facility] Jignesh Flores DO Knee pain (Primary Urgent Care [address] [place] [address] DR Dx) [address] [place], [place] [address] [phone] (Wo rk) Social History Tobacco Use Types Packs/Day Years Used Date Smoking Tobacco: Never Alcohol Use Standard Drinks/Week Comments Not Asked 0 (1 standard drink = 0.6 oz pure alcoho l) 1/mo Sex Assigned at Date Recorded Not on file documented as of this encounter Last Filed Vital Signs Vital Sign Reading Time Taken Comments Blood Pressure 110/72 06/18/2014 11:52 AM MILK ROUTE DELIVERER Pulse - - Temperature 36.3 ??C (97.3 ??F) 06/18/2014 11:52 AM MILK ROUTE DELIVERER Respiratory Rate - - Oxygen Saturation - - Inhaled Oxygen Concentration - - Weight - - Height - - Body Mass Index - - documented in this encounter Patient Instructions Patient InstructionsKarmen [place] 06/18/2014 12:[address] Augusto Flores DO, CAQ [facility] Primary Care Sports Medicine Bag Sealer: Kiana Pena Please fax all paperwork correspondence to [phone] [facility] Nurse Line: [phone] Please contact [facility] Nurse line for all requests and questions. Medication Requests: Prescriptions are not filled on Weekends or on Weekdays after 3:00PM For all medication refills: Request a refill using MyChart or contact your Pharmacy Right Knee MRI - Will call with results ROUTE DELIVERER documented in this encounter Progress Notes Jignesh Flores DO - 06/18/2014 6:20 PM CST Progress Notes signed by Jignesh Flores DO at 06/19/14 1007 Author: Jignesh Flores DO Service: (none) Author Type: Physician Filed: 06/19/14 1007 Note Time: 06/19/14919 Status: Signed Biofuels Plant Operations Engineer: Jignesh Flores DO (Physician) NAME: RAHAT THOMASON MR#: [id number] CSN: [id number] AUTHENTICATING CLINICIAN: Jignesh Flores DO CONFIRM #: [id number] LOC: 711 CLINIC PROGRESS NOTE DATE OF VISIT: 06/18/2014 : 1970 CHIEF COMPLAINT: Right knee pain. HPI: Rahat is a healthy-appearing 44-year-old woman here for complaints of medial right knee pain. She has noticed symptoms off and on for the past year. Recently in the past 2 months, her pain has gotten significantly worse, especially with trying to do running and workouts. The knee feels very sore and stiff after workouts. She has a hard time bending it all the way. She denies any locking or instability. She has not noticed swelling either. She has been seen previously at [facility] for knee problems, but she cannot remember which knee it was. No surgery was needed. PAST MEDICAL HISTORY: Unchanged from previous visit. REVIEW OF SYSTEMS: Negative for fevers, chills or sweats. VITAL SIGNS: Pain is rated 8/10. Height 60 inches tall. Weight 126 pounds. Temperature 97.3 degrees. Blood pressure 110/72. PHYSICAL EXAM: The patient is alert and oriented x3, in no acute distress. Gait is normal. Skin is warm and dry without lesions or rashes. Neurovascular status of the right and left lower extremities are intact. Leftknee exam is normal. Right knee exam reveals no obvious swelling or effusion. Tenderness to palpation along the medial joint line. Able to achieve full knee flexion and extension through pain. She has 5/5 quadriceps, hamstring, and gastrocsoleus strength. Negative anterior drawer, posterior drawer andLachman test. Negative varus and valgus stress test. Painful Sandi test. No patellar apprehensionwith lateral shift. IMAGING: Three views of the right knee. AP, lateral and sunrise views ordered and interpreted by myself at today's visit are negative for fracture subluxation or joint space abnormality. Two views the left knee, AP and sunrise views, ordered and interpreted by myself at today's visit are negative for fracture or subluxation. There is intrameniscal calcification present. ASSESSMENT AND PLAN: Right medial knee pain likely secondary to meniscal tear or chondral defect. Diagnosis and treatment options discussed with the patient. Given her duration of symptoms, I recommend MRI of the right knee. She is to follow up after to discuss results and further treatment options. Activity modifications discussed. PAULINE:ANTWAN C: R:06/18/14 18:31 CONFIRM#:[id number] ROUTE DELIVERER documented in this encounter Plan of Treatment Not on filedocumented as of this encounter Visit Diagnoses Diagnosis Knee pain - Primary Pain in joint, lower leg documented in this encounter Care Teams Tier Lift Truck Operator Relationship Specialty Start Date End Date Britney Jarrett MD PCP - General 04/15/13 04/03/161999 [place] [address] documented as of this encounter
--- OUTSIDE RECORDS SUMMARY | 2022-04-23 15:35 | XMS_ITS | Encounter Summary ---
:1970 Author Organization [facility] Address [address] [place] [address] Care Team Providers Name Role Phone Britney Jarrett MD Primary Care Provider Reason for Referral Procedure/Equipment (Routine) - Incomplete Specialty Diagnoses / Procedures Referred By Contact Refer red To Contact Diagnoses Left knee pain, unspecified chronicity Mary Grace Daniel MD Procedures XR Knee Rt 1-2 Views Comparison [address] [facility] [place], [place] [address] Referral ID Status Reason Start Date Expiration Date Visits V isits Requested Authorized [id number] Incomplete 05/26/2016 08/25/2017 1 1 Procedure/Equipment (Routine) - Incomplete Specialty Diagnoses / Procedures Referred By Contact Refer red To Contact Diagnoses Left knee pain, unspecified chronicity Mary Grace Daniel MD Procedures XR Knee Lt 3 Views [address] [facility] [place] [address] Referral ID Status Reason Start Date Expiration Date Visits V isits Requested Authorized [id number] Incomplete 05/26/2016 08/25/2017 1 1 Reason for Visit Reason Comments Knee Pain or Injury left knee pain x 3 weeks Encounter Details Date Type Department Care Team Description 05/26/2016 Office Visit [facility] Mary Grace Daniel Chondro calcinosis of knee, left (Primary Dx); Urgent Care [place] Left knee pain, unspecified chronicity [address] [facility] [address] [place] [address] [phone] Social History Tobacco Use Types Packs/Day Years [...] Sign Reading Time Taken Comments Blood Pressure 100/60 05/26/2016 2:09 PM CDT Pulse - - Temperature 36.7 ??C (98 ??F) 05/26/2016 2:09 PM CDT Respiratory Rate - - Oxygen Saturation - - Inhaled Oxygen Concentration - - Weight 57.6 kg (127 lb) 05/26/2016 2:09 PM CDT Height 152.4 cm (5') 05/26/2016 2:09 PM CDT Body Mass Index 24.8 05/26/2016 2:09 PM CDT documented in this encounter Patient Instructions Patient InstructionsSawKarmen Mohinder - 05/26/2016 2:[address] Mary Grace Daniel MD Sports & Orthopaedic Medicine [facility] Medication Requests: Prescriptions are not filled on Weekends or on Weekdays after 3:00PM For all medication refills: Request a refill using MyChart or contact your Pharmacy [facility] Nurse Line: [phone] Please contact [facility] Nurse line for all medical requests and questions Passenger Representative: Melanie King Please call Ashley for all administrative questions at [phone] MRI Scheduling: To schedule an MRI at [facility] please call [phone] The left knee was injected with Kenalog-40 and lidocaine. Avoid Strenuous Activity for the remainder of the day and avoid activities that cause pain for one to two weeks following the injection. Signs and Symptoms to watch for: If you have any redness, warmth or increasing pain at the site of the injection or develop a fever, please call [phone] documented in this encounter Progress Notes Mary Grace Daniel MD - 05/27/2016 10:23 AM CDT NAME: RAHAT THOMASON MR#: [id number] CSN: [id number] AUTHENTICATING CLINICIAN: Mary Grace Daniel MD CONFIRM #: [id number] LOC: 711 CLINIC PROGRESS NOTE DATE OF VISIT: 05/26/2016 : 1970 CHIEF COMPLAINT: Knee pain. This is a 45-year-old female who is coming in with left-sided knee pain. Unfortunately she is havingsignificant lumbar issues right now. She previously had a lumbar fusion and she is now having instability at 2 levels above the fusion and they are at the point of trying everything they can to avoid surgical intervention. She is doing gabapentin, slowly working up her dose. The next thing they will be doing is a spine stimulator and after that they would consider surgery. She is being treated at [facility]. She finds that her left leg is constantly with a tight achy feeling. Her left knee has become increasingly uncomfortable. She has had times in the past where she has tweaked her knee, but recently it has started to feel more tight, especially in the morning. 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 She rates her pain in the left knee as 5-8/10 and it is mostly lateral, occasional medial. No mechanical symptoms and no obvious swelling seen. REVIEW OF SYSTEMS: No fevers, chills, rashes or skin changes. She does have radiculopathy down both legs consistent with her low back issues. PAST MEDICAL HISTORY: Lumbar spine issues with previous surgery fusion at L5-S1. Previous neck surgical fusion and carpal tunnel surgery. PHYSICAL EXAM: Temperature 98.0. Height 5 feet. Weight 127 pounds. Pleasant female in no acute distress. She does move cautiously. Exam of her left lower extremity shows overall normal appearance. No obvious fasciculations are appreciated. Her left knee has no effusion. She is tender over the lateral joint space. Ligamentous exam is normal and Sandi's testing reproduces a slight tightness over the lateral aspectof the knee but no mechanical symptoms reproduced. IMAGING: X-rays were ordered and independently reviewed. Left knee series Indication: Pain. Findings: Left knee shows chondrocalcinosis throughout the medial and lateral joint spaces. No obvious fracture. Minimal patellofemoral degenerative change. Right knee shows well-preserved joint spaces. ASSESSMENT: Left leg radicular pain in addition to left knee chondrocalcinosis. PLAN: We discussed that a portion of her pain may be benefitted from corticosteroid therefore using superolateral approach and sterile technique, after a discussion of the pros and cons, Kenalog 40 mg and 1%, 4 mL, are injected into the left knee. She tolerates this well and will be following up if she has any further questions. HDT: C: R:05/26/16 20:27 CONFIRM#:[id number] documented in this encounter Plan of Treatment Not on filedocumented as of this encounter Results XR Knee Rt 1-2 [...] shows we ll-preserved joint spaces. Mary Grace Daniel MD RAD GD XR Knee Lt 3 Views (05/26/2016 [...] shows we ll-preserved joint spaces. Mary Grace Daniel MD RAD GD documented in this encounter Visit Diagnoses Diagnosis Chondrocalcinosis of knee, left - Primar y Left knee pain, unspecified chronicity Left knee pain, unspecified chronicity documented in this encounter Care Teams Lead Mason Tender Relationship Specialty Start Date End Date Britney Jarrett MD PCP - General 04/04/161999 [place] [address] documented as of this encounter
--- OUTSIDE RECORDS SUMMARY | 2022-04-23 15:35 | XMS_ITS | Encounter Summary ---
:1970 Author Organization [facility] Address [address] [place] [address] Care Team Providers Name Role Phone Britney Jarrett MD Primary Care Provider Reason for Visit Reason Comments Knee Pain or Injury Left MRI Results Encounter Details Date Type Department Care Team Description 07/30/2016 Office Visit [facility] Richard Butts, Left kn ee pain, Urgent Care MD unspecified [address] [facility] [address] [facility] [address] chronicity (Primary [place], [place] [address] [place], [place] Dx) [phone] (Wo rk) Social History Tobacco Use Types [...] Pressure - - Pulse - - Temperature 36.2 ??C (97.2 ??F) 07/30/2016 10:01 AM NEGATIVE TURNER APPRENTICE Respiratory Rate - - Oxygen Saturation - - Inhaled Oxygen Concentration - - Weight - - Height - - Body Mass Index - - documented in this encounter Patient Instructions Patient InstructionsSimin Epperson, ATC - 07/30/2016 10:[address] Richard Butts MD Sports & Orthopaedic Medicine [facility] Medication Requests: Prescriptions are not filled on Weekends or on Weekdays after 3:00PM For all medication refills: Request a refill using MyChart or contact your Pharmacy [facility] Nurse Line: [phone] Please contact [facility] Nurse line for all medical requests and questions Wafer Fabrication Operator: Adina Gamez Please call Adina for all administrative questions at [phone] MRI Scheduling: To schedule an MRI at [facility] please call [phone] Left knee pain Follow up as needed Consider: 1. Time, rest, therapy 2. Surgical referral 3. Repeat steroid injection TIVE TURNER APPRENTICE documented in this encounter Progress Notes Richard Butts MD - 07/31/2016 7:59 AM CST NAME: RAHAT THOMASON MR#: [id number] CSN: [id number] AUTHENTICATING CLINICIAN: Richard Butts MD CONFIRM #: [id number] LOC: 711 CLINIC PROGRESS NOTE DATE OF VISIT: 07/30/2016 : 1970 Rahat Thomason here for followup of left knee MRI results. Was last seen by myself on 07/29/2016. Please see that note for further details. MRI left knee 07/29/2016: 1.Mild sprain in the musculotendinous portion of the popliteus and adjacent posterolateral joint capsule. 2.No other evidence of significant ligamentous or tendinous injury. 3.Mild to moderate chondromalacia in the patellofemoral and medial compartments. 4.Small tears in the medial and lateral menisci as described above. ASSESSMENT: Left knee pain with multiple potential etiologies. MRI does show potential mild strain in the popliteus area of the knee; however, I would have expected her to be improved by now with rest and physicaltherapy. She also has chondromalacia in the patellofemoral and medial compartment of the knee as well as small tears in the medial and lateral meniscus. Both of these findings could be causing her symptoms. However, they are not significantly large. I cannot completely rule out lumbar radiculopathy given patient's significant low back history. PLAN: We discussed multiple options including time rest and ongoing physical therapy. She could consider asurgical referral to discuss the meniscus tears. Since she has failed a steroid injection, we could consider repeating that in the future. She will likely continue with therapy, time and rest and will consider surgical referral or steroid injection in the future. Follow up as needed. SAB:TH C: R:07/30/16 15:34 CONFIRM#:[id number] TIVE TURNER APPRENTICE documented in this encounter Plan of Treatment Not on filedocumented as of this encounter Visit Diagnoses Diagnosis Left knee pain, unspecified chronicity - Primary documented in this encounter Care Teams Cuff Setter Overlock Relationship Specialty Start Date End Date Britney Jarrett MD PCP - General 04/04/161999 [place] [address] documented as of this encounter
--- OUTSIDE RECORDS SUMMARY | 2022-04-23 15:35 | XMS_ITS | Encounter Summary ---
:1970 Author Organization [facility] Address [address], [place] [address] Care Team Providers Name Role Phone Britney Jarrett MD Primary Care Provider Reason for Visit Procedure/Equipment (Routine) - Incomplete Specialty Diagnoses / Procedures Referred By Contact Refer red To Contact Procedures Andrade Marsh MD Foreign Image(S) XR [address] [facility] [address] Extremity Rt [place], [place] [address] Referral ID Status Reason Start Date Expiration Date Visits V isits Requested Authorized [id number] Incomplete 08/19/2016 11/18/2017 1 1 Encounter Details Date Type Department Care Team Description 08/16/2016 Imaging [id number] RADIOLOGY CENTRAL FILM Andrade Murillo MD LIBRARY [address] [facility] [address] [facility] [place] [address] [place] [address] Social History Tobacco Use Types Packs/Day Years [...] Diagnosis Comme nts FOREIGN IMAGE(S) XR Routine 08/16/2016 12:00 AM R esults for this EXTREMITY RT GYPSUM CALCINER procedure are i n the results section. documented in this encounter Results Foreign Image(S) XR Extremity Rt (08/16/2016 12:00 AM GYPSUM CALCINER) Specimen (Source) Anatomical Location Collection Method / Collectio n Time Received Time / Laterality Volume Narrative PN POCT - 08/19/2016 3:36 PM GYPSUM CALCINER These outside images have been uploaded into PACS. If the results were provided, they will be located on the Me joce tab in the patient's chart. Andrade Marsh MD RAD NON-REPORTABLES Performing Organization Address City/State/ZIP Code Phon e Number POCT PN POCT documented in this encounter Visit Diagnoses Not on filedocumented in this encounter Care Teams Dog Show Judge Relationship Specialty Start Date End Date Britney Jarrett MD PCP - General 04/04/161999 [place] [address] documented as of this encounter
--- OUTSIDE RECORDS SUMMARY | 2022-04-23 15:35 | XMS_ITS | Encounter Summary ---
:1970 Author Organization [facility] Address [address] [place] [address] Care Team Providers Name Role Phone Britney Jarrett MD Primary Care Provider Reason for Visit Reason Comments LAB RESULTS Encounter Details Date Type Department Care Team Description 06/20/2014 Telephone [facility] Jignesh Flores, LAB RESULTS [address] [place] [address] [place] [address] [place] [address] [phone] (Wo rk) Social History Tobacco Use Types Packs/Day Years Used Date Smoking Tobacco: Never Alcohol Use Standard Drinks/Week Comments Not Asked 0 (1 standard drink = 0.6 oz pure alcoho l) 1/mo Sex Assigned at Date Recorded Not on file documented as of this encounter Nursing Notes Jignesh Flores, - 06/20/2014 4:15 PM CST I called and spoke with patient about right knee MRI results. IMPRESSION: 1. Lower pole patellar full-thickness lateral chondromalacia and mild to moderate medial chondral thinning and fissuring. Chondral surface fibrillation otherwise. Adjacent Hoffa fat pad T2 signal with enlargement of the small cyst, suggesting lateral fat pad impingement. No evidence of patella jose guadalupe or patellar subluxation. 2. No other internal derangement identified. Recommend activity modifications and compression knee sleeve. If no improvement then call to schedule PT. EACH MANAGER documented in this encounter Plan of Treatment Not on filedocumented as of this encounter Visit Diagnoses Not on filedocumented in this encounter Care Teams Retirement Benefits Specialist Relationship Specialty Start Date End Date Britney Jarrett MD PCP - General 04/15/13 04/03/161999 [place] [address] documented as of this encounter
--- OUTSIDE RECORDS SUMMARY | 2022-04-23 15:35 | XMS_ITS | Encounter Summary ---
:1970 Author Organization [facility] Address [address] [place] [address] Care Team Providers Name Role Phone Britney Jarrett MD Primary Care Provider Reason for Visit Procedure/Equipment (Routine) - Incomplete Specialty Diagnoses / Procedures Referred By Contact Refer red To Contact Diagnoses Chronic pain of left knee Richard Butts MD Procedures MR Knee Lt WO IV Cont [address] [facility] [address] [place] [address] Referral ID Status Reason Start Date Expiration Date Visits V isits Requested Authorized [id number] Incomplete 07/29/2016 10/28/2017 1 1 Encounter Details Date Type Department Care Team Description 07/29/2016 Imaging [facility] MRI Richard Butts MD Chronic pain of left [address] [facility] [place] [address] [facility] [place] [address] [phone] (Wo rk) Social History Tobacco Use Types [...] Date/Time Associated Diagnosis Comme nts MR KNEE LT WO IV Routine 07/29/2016 4:50 PM Chronic pain of le ft Results for this CONT BUSINESS OFFICE TECHNICIAN knee procedure are i n the results section. documented in this encounter Results MR Knee Lt WO IV Cont (07/29/2016 4:50 PM BUSINESS OFFICE TECHNICIAN) Anatomical Region Laterality Modality Lower Extremity, Knee, Skeletal, Thigh, Leg Left Magnetic Resonance Specimen (Source) Anatomical Collection Method Collection Time Re ceived Time Location / / Volume Laterality 07/29/2016 4:28 PM BUSINESS OFFICE TECHNICIAN Impressions 07/30/2016 8:42 AM BUSINESS OFFICE TECHNICIAN IMPRESSION: 1. Mild strain in the musculotendinous p ortion of the popliteus and adjacent posterior lateral joint capsule. 2. No other evidence of significant liga mentous or tendinous injury. 3. 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 4. Small tears in the medial and lateral menisci as described above. Narrative 07/30/2016 8:42 AM BUSINESS OFFICE TECHNICIAN TECHNIQUE: Routine MRI of the left knee [...] Diagnoses Diagnosis Chronic pain of left knee Pain in joint, lower leg documented in this encounter Care Teams Social Services Aide Relationship Specialty Start Date End Date Britney Jarrett MD PCP - General 04/04/161999 [place] [address] documented as of this encounter
--- OUTSIDE RECORDS SUMMARY | 2022-04-23 15:35 | XMS_ITS | Encounter Summary ---
:1970 Author Organization [facility] Address [address] [place] [address] Care Team Providers Name Role Phone Britney Jarrett MD Primary Care Provider Reason for Referral (Routine) - Closed Specialty Diagnoses / Procedures Referred By Contact Refer red To Contact Diagnoses Calcific tendinitis of left shoulder Calcific tendonitis Pain of both shoulder joints Andrade Marsh MD Procedures Triamcinolone Acet Inj Nos: (per 10 mg) [address] [facility] [address] [facility] [address] [place] [address] Referral ID Status Reason Start Date Expiration Date Visits Requ ested Visits Authorized [id number] Closed 03/18/2017 06/17/2018 1 1 Procedure/Equipment (Routine) - Incomplete Specialty Diagnoses / Procedures Referred By Contact Refer red To Contact Diagnoses Calcific tendinitis of left shoulder Calcific tendonitis Pain of both shoulder joints Andrade Marsh MD Procedures XR Shoulder Lt 2+ Views [address] [facility] [place] [address] [place] [address] Referral ID Status Reason Start Date Expiration Date Visits V isits Requested Authorized [id number] Incomplete 03/17/2017 06/16/2018 1 1 Reason for Visit Reason Comments SHOULDER PAIN Encounter Details Date Type Department Care Team Description 03/17/2017 Surgical Consult [facility] Andrade Marsh MD Pain of both shoulder joints (Primary Dx ); CENTER [address] [facility] Calcific tendinitis of left shoulder; [address] [place], [place] Calcific tendonitis, [place] [address] [phone] Social History Tobacco Use Types Packs/Day Years [...] - Inhaled Oxygen Concentration - - Weight 57.2 kg (126 lb) 03/17/2017 3:26 PM CDT Height 152.4 cm (5') 03/17/2017 3:26 PM CDT Body Mass Index 24.61 03/17/2017 3:26 PM CDT documented in this encounter Progress Notes Andrade Marsh MD - 03/17/2017 3:00 PM CDT [facility] Consultation 03/17/2017 Chief Complaint: Left shoulder pain History of Present Illness: Josie Booker is a 46 y.o. female status-post recent cervical spine surgery, who presents for evaluation of left shoulder pain. I last evaluated the patient 09/02/2016 for right shoulder pain which she reported had been going on for the past 2-3 years. Radiographs of her right shoulder obtained from her primary care clinic showed calcific deposits in the rotator cuff consistent with calcific tendinitis. She underwent subacromial injection of her right shoulder. Today, she reports that she had good pain relief following this injection, but her pain has since returned and has been gradually worsening over time. She also states that she has started to have similar pain on her left side. She locates this new pain to her anterior left shoulder, rating it at 4-8/10, saying that this is much worse thanher right shoulder. This pain worsens with movement and daily activities, and gives her difficulty sleeping. She presents today requesting a subacromial injection on her left shoulder and possibly her right shoulder. Of note, she is currently attending physical therapy for neck pain. Allergies: No known drug allergies. Current Medications: No chronic medications. 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 Per the intake form, she does not use drugs or tobacco products, and she drinks occasionally. Josie always wears a seatbelt. She exercises daily including cardio and weights. She describes her activity as moderate. Family History: The patient's family history includes Cancer in her paternal grandmother; Diabetes in her father; Heart Attack in her paternal grandfather; Stroke in her maternal grandmother. There is no historyof Cancer, Colon, Hyperlipidemia, Hypertension, or Thyroid Disorder. Review of Systems: A 15-point review of systems obtained and is significant for symptoms as mentioned above. The patient has no prior history of diabetes, DVT, PE or other clotting disorders. The General Medical History Form dated 03/17/2017 was updated, signed and reviewed with the patient; this is located in [facility] in [facility]. Physical Exam: Height: 1.524 m (5') Wgt: 57.2 kg (126 lb) General: Age-appropriate. No apparent distress. Cooperative and comfortable during exam. Bilateral Shoulders: There is no erythema or ecchymosis. She has a positive Neer's bilaterally. Mildly positive Anderson bilaterally. Pain to the posterior joint line with cross-body testing on the leftshoulder, negative crossbody on the right. No tenderness on her AC joint on the right or left. Had pain with resisted thumbs down abduction bilaterally, did give way bilaterally secondary to pain, 5/5 strength. 5/5 with ER and belly press bilaterally, minimal pain. She had a painful Gregg's test bilaterally. She has full elbow extension on both arms. Her distal neurovascular exam is grossly within normal limits bilaterally. Imaging: True AP, scapular Y, and axillary view of the left shoulder. No acute fracture is seen. The glenohumeral joint is located. No proximal migration of the humeral head noted. no joint space narrowing noted in the glenohumeral joint. No joint space noted in the AC joint. There is calcium deposits noted inthe rotator cuff consistent with calcific tendinitis. I ordered and independently reviewed the imaging studies above; the results were discussed with the patient. Assessment: 1. Pain, bilateral shoulders 2. Rotator cuff calcific tendinitis, bilateral shoulders 3. Subacromial bursitis, bilateral shoulders Plan: We discussed the clinical and radiographic findings. We discussed the diagnosis and her questions were answered. We discussed management options, including surgical and non-surgical treatment options. I discussed with the patient the risks of corticosteroid injections. At this time, she would like to proceed with subacromial injection of her bilateral shoulders, and this was performed per the procedure note below. This will be the second injection on the right and the first injection on the left. Patient is currently in physical therapy for her neck, and referral was given for her to begin physicaltherapy for her shoulders. Should her pain persist or worsen she can follow-up as needed for repeat e valuation and further discussion of treatment options. We have yet to obtain an MRI of her left shoulder, and I feel this would be a next step in her evaluation. We discussed other options also, including arthroscopic debridement and US-guided trephination. She will consider those if her symptoms do not resolve. Procedures: The posterior aspect of the bilateral shoulders were prepped in the usual aseptic technique. A 22-gauge needle was used to inject 4 mL of 1% lidocaine without epinephrine and 1 mL of Kenalog (40 mg) was injected into the subacromial spaces of each shoulder. There were no immediate complications. A sterile dressing was applied. Total time 15 minutes, 10 minutes counseling and developing our treatment plan. cc: PATIENT SELF REFERRAL, [place] [address] Scribe Disclosure: Arsalan Burgos, am serving as a scribe to document services personally performed by Andrade Marsh MD at this visit, based upon the provider's statements to me. All documentation has been reviewed by the aforementioned provider prior to being entered into the official medical record. Entered on 03/17/17 at 12:46 PM. I, Andrade Marsh MD, attest that the above named individual is acting in scribe capacity, has observed my performance of the services performed at this visit and has documented them in accordance withmy direction. Entered on 03/17/17 at 12:46 PM. Andrade Marsh MD documented in this encounter Plan of Treatment Not on filedocumented as of this encounter Results XR Shoulder Lt 2+ Views (03/17/2017 3:40 PM CDT) Anatomical Region Laterality Modality Upper Extremity, Shoulder Digital Radiog yazmin Specimen (Source) Anatomical Location Collection Method / Collectio n Time Received Time / Laterality Volume Narrative 03/18/2017 10:18 PM CDT True AP, scapular Y, and axillary view of the left shoulder. ??No acute fracture is seen. ??The glenohumeral carrie nt is located. ??No proximal migration of the humeral head noted. no joint space narrowing noted in the glenohumeral joint. No joint space noted in the AC joint. ??There is calcium deposits noted in the rotator cu ff consistent with calcific tendinitis. Andrade Marsh MD RAD GD documented in this encounter Visit Diagnoses Diagnosis Pain of both shoulder joints - Primary Calcific tendinitis of left shoulder Calcifying tendinitis of shoulder Calcific tendonitis, right shoulder Calcium deposits in tendon and bursa Left shoulder pain, unspecified chronici ty documented in this encounter Care Teams Director Of Global Talent Relationship Specialty Start Date End Date Britney Jarrett MD PCP - General 04/04/161999 [place] [address] documented as of this encounter
--- OUTSIDE RECORDS SUMMARY | 2022-04-23 15:35 | XMS_ITS | Encounter Summary ---
:1970 Author Organization [facility] Address [address] [place] [address] Care Team Providers Name Role Phone Britney Jarrett MD Primary Care Provider Reason for Visit Reason Comments Back Problem back pain Encounter Details Date Type Department Care Team Description 01/29/2017 Office Visit [facility] Doni Conway MD Status post laminectomy with spinal fusi on (Primary Dx); Urgent Care [address] [place] [address] Post laminectomy syndrome; [address] [place], [place] Bilateral low back pain radi ating into the bilateral legs [place], [place] [id number] [phone] (Wo rk) Social History Tobacco Use Types [...] Pressure - - Pulse - - Temperature 36.6 ??C (97.8 ??F) 01/29/2017 8:42 AM CDT Respiratory Rate - - Oxygen Saturation - - Inhaled Oxygen Concentration - - Weight 58.1 kg (128 lb) 01/29/2017 8:42 AM CDT Height 152.4 cm (5') 01/29/2017 8:42 AM CDT Body Mass Index 25 01/29/2017 8:42 AM CDT documented in this encounter Patient Instructions Patient InstructionsBreonna Ross LPN - 01/29/2017 8:[address] Doni Conway MD Sports & Orthopaedic Medicine [facility] Medication Requests: Prescriptions are not filled on Weekends or on Weekdays after 3:00PM For all medication refills: Request a refill using MyChart or contact your Pharmacy Acute [facility] Nurse Line: Please contact Acute Injury Clinic Nurse line for all medical requests and questions at [phone] Continuing Education Director: Please call Jess Webb for all administrative questions at MRI Scheduling: To schedule an MRI at [facility] please call [phone] Workers??? Compensation: Please contact our department for any Work Comp concerns at Email: [email or web address] Assessment: 1. Post laminectomy syndrome 2. Bilateral low back pain radiating into the bilateral legs ?? Plan: I agree with the recommendation to see Dr. Jesus as previously scheduled. She voiced understanding and agreement with this plan. She will follow up with me as needed. documented in this encounter Progress Notes Doni Conway MD - 01/29/2017 8:40 AM CDT [facility] 01/29/2017 Chief Complaint: Low back pain History of Present Illness: Josie Booker is a 46 y.o. female who presents for follow up of low back pain. She has a longstanding history of low back pain. She did have a fusion at L4-L5 and L5-S1 performed in 1985. Around thattime she went to a chiropractor for lumbar spine adjustments and following this developed tingling in her bilateral lower legs. Following this she attended [facility] which resulted increased pain to her bilateral low back. This has since persisted and often radiates into her right calf and foot. I last evaluated her for this on 09/28/2015 at which time we elected to treat her ongoing symptoms with a lumbar facet injections at the level of L3-4 and L4-5. She underwent the injection at the L3-4 on 10/17/2015 with only mild relief to her pain, please see that note for further detail regarding the L4-5 level (autofused). She has additionally undergone SI joint injections without improvement in her ongoing symptoms. Lumbar medial branch blocks as part of a lumbarRFA workup did not provide her enough relief to proceed with rhizotomy. She recently underwent a CT scan at [facility], see report as below. She has a consult with Dr. Jesus at [place] coming up and needs anon surgical evaluation prior to his appointment per her insurance. She continues to have pain to her bilateral low back with radiating numbness and tingling into her bilateral legs. Her pain is worsened with prolonged standing and sitting. She has limited back extension. She denies acute injury. Review of Systems: The patient denies fever, rash. (+) numbness and tingling. 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 Physical Exam: Temp 36.6 ??C (97.8 ??F) (Tympanic) Ht 1.524 m (5') Wt 58.1 kg (128 lb) BMI 25 kg/m2 General: She is alert, cooperative, in no acute distress.?? Mood and affect are appropriate.?? Cardiovascular: Posterior tibial pulses are palpable bilaterally. Back: She ambulates with a normal gait. She has full lumbar flexion and less than 5 degrees of extension.??She has 5/5 strength throughout the bilateral lower extremities. She has 2+ patellar and Achilles reflexes bilaterally.??Sensation is intact to light touch over the L4, L5 and S1 dermatomes.??Shehas a negative straight leg raise bilaterally. There are no long tract or Yuri signs present. Mildly positive JORDEN bilaterally. Imaging: CT of the lumbar spine - (12/13/2016): 1. Moderate adjacent level L3-4 spondylosis with bilateral facet gaseous degeneration and gas-containing right greater than left ventral medial synovial type cyst. 2. Solid L4-S1 fusion with chronic up down bony foraminal stenosis at L5-S1. 3. No disc herniation or focal neural compression. As compared to previous study, mild progression of facet arthropathy at L3-4 and more prominent gas- containing right-sided synovial type cyst. I independently reviewed the imaging studies above; the results were discussed with the patient. Assessment: 1. Post laminectomy syndrome 2. Bilateral low back pain radiating into the bilateral legs Plan: I agree with the recommendation to see Dr. Jesus as previously scheduled. She voiced understanding and agreement with this plan. She will follow up with me as needed. Scribe Disclosure: IMaria Teresa, am serving as a scribe to document services personally performed by Doni Conway MD at this visit, based upon the provider's statements to me. All documentation has been reviewed by the aforementioned provider prior to being entered into the official medical record. Entered on at 8:46 AM. I, Doni Conway MD, attest that the above named individual is acting in scribe capacity, has observed my performance of the services performed at this visit and has documented them in accordance with my direction. Entered on 01/29/17 at 8:46 AM. Doni Conway MD documented in this encounter Plan of Treatment Not on filedocumented as of this encounter Visit Diagnoses Diagnosis Status post laminectomy with spinal fusi on - Primary Arthrodesis status Post laminectomy syndrome Postlaminectomy syndrome, unspecified re gion Bilateral low back pain radiating into t he bilateral legs documented in this encounter Care Teams Nursing Program Director Relationship Specialty Start Date End Date Britney Jarrett MD PCP - General 04/04/161999 [place] [address] documented as of this encounter
--- OUTSIDE RECORDS SUMMARY | 2022-04-23 15:35 | XMS_ITS | Encounter Summary ---
:1970 Author Organization [facility] Address [address] [place] [address] Care Team Providers Name Role Phone Britney Jarrett MD Primary Care Provider Reason for Visit Procedure/Equipment (Routine) - Incomplete Specialty Diagnoses / Procedures Referred By Contact Refer red To Contact Diagnoses Calcific tendinitis of left shoulder Calcific tendonitis Pain of both shoulder joints Andrade Marsh MD Procedures XR Shoulder Lt 2+ Views [address] [facility] [place], [place] [address] Referral ID Status Reason Start Date Expiration Date Visits V isits Requested Authorized [id number] Incomplete 03/17/2017 06/16/2018 1 1 Encounter Details Date Type Department Care Team Description 03/17/2017 Imaging [facility] Andrade Marsh MD Left shoulder pain, [address] [facility] unspecified chronicity [place], [place] [address] [place] [address] [phone] (Wo rk) Social History Tobacco Use Types [...] Comme nts XR SHOULDER LT 2+ Routine 03/17/2017 3:40 PM Left shoulder leatha n, Results for this VIEWS CDT unspecified procedure are i n chronicity [...] in this encounter Visit Diagnoses Diagnosis Left shoulder pain, unspecified chronici ty documented in this encounter Care Teams Single Fold Machine Operator Relationship Specialty Start Date End Date Britney Jarrett MD PCP - General 04/04/161999 [place] [address] documented as of this encounter
--- OUTSIDE RECORDS SUMMARY | 2022-04-23 15:35 | XMS_ITS | Encounter Summary ---
:1970 Author Organization [facility] Address [address] [address] Care Team Providers Name Role Phone Britney Jarrett MD Primary Care Provider Reason for Visit Reason Comments LAB RESULTS Encounter Details Date Type Department Care Team Description 11/03/2015 Telephone [facility] Doni Conway MD LAB RESULTS [address] [facility] [address] [facility] [place] [address] [place] [address] [phone] (Wo rk) Social History Tobacco Use Types Packs/Day Years Used Date Smoking Tobacco: Never Alcohol Use Standard Drinks/Week Comments Not Asked 0 (1 standard drink = 0.6 oz pure alcoho l) 1/mo Sex Assigned at Date Recorded Not on file documented as of this encounter Nursing Notes Doni Conway MD - 11/03/2015 10:20 AM CDT Advised inflammatory markers were normal, follow up as planned. documented in this encounter Plan of Treatment Not on filedocumented as of this encounter Visit Diagnoses Not on filedocumented in this encounter Care Teams Display Decorator Relationship Specialty Start Date End Date Britney Jarrett MD PCP - General 04/15/13 04/03/161999 [place] [address] documented as of this encounter
--- OUTSIDE RECORDS SUMMARY | 2022-04-23 15:35 | XMS_ITS | Encounter Summary ---
:1970 Author Organization [facility] Address [address] [address] Care Team Providers Name Role Phone Britney Jarrett MD Primary Care Provider Reason for Visit Reason Comments Refill Encounter Details Date Type Department Care Team Description 07/13/2015 Refill [facility] Bandar Hernandez MD Refill [address] [facility] [place] [address] [place] [address] [phone] (Wo rk) Social History Tobacco Use Types Packs/Day Years Used Date Smoking Tobacco: Never Alcohol Use Standard Drinks/Week Comments Not Asked 0 (1 standard drink = 0.6 oz pure alcoho l) 1/mo Sex Assigned at Date Recorded Not on file documented as of this encounter Nursing Notes April Richardson RN - 07/18/2015 12:13 PM CST Police Commanding Officer notified [facility] pharmacy that pt needs to be seen prior to Rx being refill. R COATER documented in this encounter Plan of Treatment Not on filedocumented as of this encounter Visit Diagnoses Not on filedocumented in this encounter Care Teams Plant Maintenance Technician Relationship Specialty Start Date End Date Britney Jarrett MD PCP - General 04/15/13 04/03/161999 [place] [address] documented as of this encounter
--- OUTSIDE RECORDS SUMMARY | 2022-04-23 15:35 | XMS_ITS | Encounter Summary ---
:1970 Author Organization [facility] Address [address] [place] [address] Care Team Providers Name Role Phone Britney Jarrett MD Primary Care Provider Reason for Visit Reason Comments Procedure Encounter Details Date Type Department Care Team Description 10/17/2015 Procedure Visit [facility] Braeden Barragan MD [address] [place] [address] Procedure [address], [address] [place], [place] [address] Social History Tobacco Use Types Packs/Day Years Used Date Smoking Tobacco: Never Alcohol Use Standard Drinks/Week Comments Not Asked 0 (1 standard drink = 0.6 oz pure alcoho l) 1/mo Sex Assigned at Date Recorded Not on file documented as of this encounter Last Filed Vital Signs Vital Sign Reading Time Taken Comments Blood Pressure 122/78 10/17/2015 2:25 PM CDT Pulse 90 10/17/2015 2:25 PM CDT Temperature 37.4 ??C (99.3 ??F) 10/17/2015 1:28 PM CDT Respiratory Rate 18 10/17/2015 2:25 PM CDT Oxygen Saturation 100% 10/17/2015 2:25 PM CDT Inhaled Oxygen Concentration - - Weight 57.2 kg (126 lb) 10/17/2015 1:28 PM CDT Height 152.4 cm (5') 10/17/2015 1:28 PM CDT Body Mass Index 24.61 10/17/2015 1:28 PM CDT documented in this encounter Patient Instructions Patient InstructionsBerndt Mary Grace L, RN - 10/17/2015 1:32 PM CDT FOLLOW UP PLAN: Please follow up with Dr. Doni Conway in 10-14 days; call [phone] to schedule an appointment if you do not already have one. Facet Injection Post-Procedure Instructions: ?? Rest today ?? Refrain from driving until tomorrow ?? Apply ice to site (20 minutes on/ 20 minutes off) for the next 48 hours if you experience any soreness or pain. ?? No heat to site for next 48 hours ?? No tub baths, pools, hot tubs or lakes for 2 days. You may shower. ?? Resume your regular diet and medications (Blood thinners per the chart you were given). ?? You may experience the following symptoms up to 6 hours after your injection: ?? Warmth ?? Tingling ?? Heaviness ?? Numbness ?? Flushing in face If the symptoms last more than 12 hours, call the doctor Dr. Braeden Barragan MD Interventional Pain Physician and Anesthesiologist Please contact the Pain Nurse ([phone]) for all medical/procedural questions regarding your care at the [facility] Please contact Rosa ([phone]) for all administrative/scheduling questions related to the [facility] Medication Requests: Prescriptions requiring refills must be requested from the prescribing physician. If Dr. Barragan prescribed your medication, call the number above. If any other physician prescribed your medication, please contact his or her office to discuss. documented in this encounter Progress Notes Mary Grace Pineda RN - 10/17/2015 2:27 PM CDT Patient tolerated procedure well, vital signs stable. Post-procedure pain level 4/10 at rest, 4/10 with activity. Discharge instructions given (written & verbal review), patient verbalized understanding. Patient discharged to home at 1430 via ambulatory with miniature train driver. Radha Newsome RN - 10/17/2015 1:30 PM CDT Patient here for Facet injections. Patient rates pain in back, 6/10 at rest, 4/10 with activity. Verified NPO status. Pre-op teaching completed, patient verbalizes understanding. Confirmed pt has miniature train driver home. Consent per MD. CTOR BUSINESS DEVELOPMENT documented in this encounter Procedure Notes Braeden Barragan MD - 10/17/2015 4:09 PM CDT Procedure Note Intra-articular Facet Injection Procedure Date: 10/17/2015 Josie Booker Date of : 1970 PREOPERATIVE DIAGNOSIS: Diagnosis and Associated Orders ICD-10-CM ICD-9-CM 1. Spondylosis of lumbar region without myelopathy or radiculopathy ([facility]) M47.816 721.3 2. Bilateral low back pain without sciatica ([facility]) M54.5 724.2 POSTOPERATIVE DIAGNOSIS: Same. OPERATION PERFORMED: bilateral Intra-Articular Facet Injections at the level(s): L3/4 and L4/5 Interventionalist: Braeden Barragan MD IV SEDATION #1: Midazolam:0 mg IV SEDATION #2: Fentanyl: 0 mcg ESTIMATED BLOOD LOSS: None FLUIDS: 0mL, 0.9% Sodium Chloride FLUOROSCOPY WAS USED. TOTAL SEDATION TIME: 0 minutes. COMPLICATIONS: None INDICATIONS FOR PROCEDURE: This is a 45 y.o. year old female with a clinical picture consistent with facet arthropathy and facet-mediated pain. PROCEDURE AND FINDINGS: After the potential risks, benefits, and alternatives of the procedure were explained to the patient, written informed consent was obtained and an IV was not started. The patient had been NPO for greater than 6 hours, and had an accompanying adult miniature train driver. The patient was taken to the procedure room and placed in the prone position. A time out was completed verifying correct patient, procedure, site, position, implants, and/or special equipment. The areaover the spine was prepped and draped in the usual sterile fashion using Duraprep. At this point, the fluoroscopic view was obtained in a slightly oblique fashion. The bilateral facet joints at level(s) mentioned above were identified; L3/4 was clearly identifiable. It appears that L4 and L5 have almost entirely autofused. There is no discernible joint line at this level despite multiplanar imaging. As there may still be some incomplete fusion and a joint capsule present, we made the decision to access the location we would expect the joint capsule to be when comparing the L4/5 level with higher levels. Using a 1.5-inch 25-gauge needle, the skin and subcutaneous tissue were infiltrated with approximately 3mL of 1% lidocaine at each level. After achieving sufficient anesthesia, 22-gauge 3.5-inch needles were advanced under live fluoroscopic guidance to a facet joint intra-articular position at the aforementioned levels - I started with the right side. The image was transitioned to a lateral view and verification of the needle tips was achieved, noting adequate but safe depth. At this point, in the AP view, 0.5mls of Isovue- M 200 dye from a 10cc vial was injected at each level and we found good outline of the L3/4. At the L4/5 level that revealed contrast spread in a periarticular region where we would expect the L4/5 joint to be. A treatment mixture containing 4cc of 0.5% Bupivacaine and 40mg Kenalog was prepared. At this point, 1mLtotal injectate volume, from the steriod-containing mixture was injected at each level. The needles were re-styletted and removed. The identical procedure was then repeated on the left side - again, I had clear L3/4 joint line and intra-articular spread, but at the L4/5 level, as no joint line was identifiable, as expected, I saw periarticular contrast spread. The total steroid dose was 40mg of Kenalog. The patient tolerated the procedure well and was taken to the recovery room. After observation for an appropriate period of time, the patient was discharged with an accompanying adult miniature train driver. Of note, the patient's pre-procedural pain level was 6 out of 10. Post- procedural pain level was a 4out of 10. Follow up will be: with Dr. Conway, per pertinent [facility] documentation. documented in this encounter Plan of Treatment Not on filedocumented as of this encounter Procedures Procedure Name Priority Date/Time Associated Comments Diagnosis FL C ARM 30 PAIN Routine 10/17/2015 2:02 PM Bilateral low back Results for this MANAGEMENT CDT pain without procedure are i n sciatica the results section. POCT URINE Routine 10/17/2015 1:30 PM Bilateral low back Results for this CDT pain without procedure are i n sciatica the results section. documented in this encounter Results FL C Arm 30 Pain Management (10/17/2015 2:02 PM CDT) Anatomical Region Laterality Modality Other Specimen (Source) Anatomical Location Collection Method / Collectio n Time Received Time / Laterality Volume Narrative 10/17/2015 2:54 PM CDT Images obtained during surgical procedur e. See procedure note in Epic on this date. Procedure Note Clinical Immunologist Cm, Radiology - 01/21/2016 Images obtained during surgical procedur e. See procedure note in Epic on this date. Doni Conway MD RAD FL POCT URINE (10/17/2015 1:30 PM CDT) [facility] Home gist Method Time Signature Urine Negative HP CONVERSION Test - POC Control Line Yes HP CONVERSION Present, Clear Background - Internal control Cartridge Lot# [id number] HP CONVERSION Specimen (Source) Anatomical Collection Method Collection Time Re ceived Time Location / / Volume Laterality 10/17/2015 1:30 PM CDT Braeden Barragan MD PN POINT OF CARE TESTS Performing Organization Address City/State/ZIP Code Phon e Number HP CONVERSION documented in this encounter Visit Diagnoses Diagnosis Spondylosis of lumbar region without mye lopathy or radiculopathy ([facility]) - Primary Lumbosacral spondylosis without myelopat hy Bilateral low back pain without sciatica documented in this encounter Care Teams Boiler Tenders Supervisor Relationship Specialty Start Date End Date Britney Jarrett MD PCP - General 04/15/13 04/03/161999 [place] [address] documented as of this encounter
--- OUTSIDE RECORDS SUMMARY | 2022-04-23 15:35 | XMS_ITS | Encounter Summary ---
:1970 [facility] Address [address], [place] [address] Care Team Providers Name Role Phone Britney Jarrett MD Primary Care Provider Reason for Visit Reason Comments SHOULDER PAIN Encounter Details Date Type Department Care Team Description 08/26/2017 Surgical Consult [facility] Terrell Mccarthy cific tendinitis of left shoulder (Primary Dx); TARUN Flores MD Calcific tendonitis [address] [place] [address] [phone] Social History Tobacco Use Types Packs/Day Years [...] encounter Progress Notes Terrell Mccarthy MD - 08/26/2017 12:00 PM CST NAME: RAHAT THOMASON MR#: [id number] CSN: [id number] AUTHENTICATING CLINICIAN: Terrell Mccarthy MD CONFIRM #: [id number] LOC: 711 CLINIC PROGRESS NOTE DATE OF VISIT: 08/26/2017 : 1970 CHIEF COMPLAINT: Bilateral right greater than left shoulder pain. HISTORY OF PRESENT ILLNESS: Ms. Thomason is a very pleasant 47-year-old lcvlp-gori-gflajhqi woman with a history of right greaterthan left shoulder pain. She has had many years of shoulder pain and originally sought care with Dr.Gary Marsh. Dr. Marsh did bilateral shoulder injections for diagnosis of calcific tendinitis. At that time she saw substantial improvement in each of her shoulders, but substantially worsening pain over time. Eventually, this went away completely. She ultimately sought care at [place], where she got bilateral biceps ultrasound- guided injections which gave her good relief for a couple of days, but again was only temporary. She has a longstanding history of pain in her shoulders as well as in her neck. She has had cervicalspine surgery. She has proximal level degenerative disk disease below what sounds like a C6-7 fusion. She has also had lumbar spine fusion. She is scheduled for some treatments in her shoulder and her neck. She is scheduled for a rhizotomy procedure, per her report. She notes that she has numbness and pain down into both arms. She has had an EMG at [facility] by her spine surgeon, who says that her pain is not coming from her carpal tunnel, but rather from her shoulder. Now she has pain and reduction in her movements. 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 She cannot make full arm circles. PAST MEDICAL HISTORY: Significant for arthritic disease, calcific tendinosis, and spine problems. MEDICATIONS: Arthrotec (intermittent), a muscle relaxer as needed, and a vitamin. She also takes a probiotic. PAST SURGICAL HISTORY: Significant for ear tubes and tonsils in childhood, carpal tunnel in both wrists, low back fusion atL5-S1, and neck fusion at C6-7. The neck fusion was in 2008. She had postoperative nausea and vomiting. 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 FAMILY HISTORY: There is no family history of dislocating shoulders, dislocating kneecaps, rotator cuff tears, rheumatoid arthritis. REVIEW OF SYSTEMS: Returned positive for arthritis, chronic back pain, numbness or tingling in the arms and feet, and glasses; but otherwise negative for general, eyes, nose and sinus, respiratory, cardiac, mouth, ears, gastrointestinal, skin, genitourinary, neurologic, musculoskeletal, heme/lymphatic, endocrine, and psychiatric disorders. IMAGING: MRI scan dated 08/29/2016. Imaging Assessment: This shows calcium in the supraspinatus and no evidence of full-thickness cartilage loss. There is evidence of acromioclavicular joint arthritis with increased T2 signal on the clavicular side of the joint. IMAGING: Radiographs dated 03/17/2017. Imaging Assessment: These show supraspinatus and subscapularis calcific tendinitis, probably at the lateral aspect of the rotator interval. EXAM: She is a well-appearing woman in obvious distress. She articulates and communicates well with a normal affect. Her extraocular movements are intact. Her breathing is nonlabored. Her sensation is intactin the axillary, musculocutaneous, median, radial, and ulnar nerve distributions. She has a warm andwell-perfused hand with a palpable radial pulse. She has normal hair and sweat patterns without any evidence of skin breakdown and no swelling or palpable lymphadenopathy in the shoulder and arm region. She has 160 degrees of bilateral forward elevation, 150 degrees of painful lateral elevation, 50 degrees of external rotation at the side, and internal rotation up the back to T12. She has normal bellypress and lift-off bilaterally. She has pain at the biceps tendon on the right. This is 3/3 and recreates her symptoms. She has a positive Speed's, Yergason's, and Onondaga's. She has tenderness to palpation (2/3) at the acromioclavicular joint on the right side and 1/3 on the left. She has 4/5 forwardelevator and external rotator strength because of pain. ASSESSMENT: 1.Right shoulder symptomatic acromioclavicular joint arthritis. 2.Right shoulder biceps disease with tenosynovitis. 3.Right shoulder calcific tendinitis. 4.Right shoulder subacromial bursitis. PLAN: I had a lengthy talk with Ms. Thomason today. We talked at length about surgical and nonsurgical treatment of her shoulder. I told her there are no guarantees with surgery. She could be no better or even worse. She could get stiff, infected, need further surgery, have injury to the nerves and arteries that power the hand and arm, reaction to anesthetic with damage to the heart, lungs, brain and even . She demonstrated a good understanding of this and wished to proceed with consideration of her surgical options. We talked about return to work, the fact that her radicular symptoms would not be improved by this, and the fact that if I had a big enough defect in her rotator cuff tendon after removal of the calcific focus, she would require repair. We talked about the different recuperation times (4 weeks for a te nodesis versus 6 weeks for cuff repair) for sling use. She has been indicated for arthroscopic subacromial decompression, arthroscopic biceps tenodesis, arthroscopic calcium debridement with possible rotator cuff repair, and arthroscopic distal clavicle excision. She will contact the office if she would like to proceed with surgical intervention. JPB:MEDPatricia C: R:08/26/17 18:07 CONFIRM#:[id number] NOLOGY MANAGER documented in this encounter Plan of Treatment Not on filedocumented as of this encounter Visit Diagnoses Diagnosis Calcific tendinitis of left shoulder - P rimary Calcifying tendinitis of shoulder Calcific tendonitis Calcium deposits in tendon and bursa documented in this encounter Care Teams Cloth Bin Packer Relationship Specialty Start Date End Date Britney Jarrett MD PCP - General 04/04/161999 [place] [address] documented as of this encounter
--- OUTSIDE RECORDS SUMMARY | 2022-04-23 15:36 | XMS_ITS | Encounter Summary ---
:1970 Author Organization [facility] Address [address] [place] [address] Care Team Providers Name Role Phone Madisyn Smalls APRN, CNP Primary Care Provider [phone] Reason for Visit Reason Comments LASER TREATMENT Encounter Details Date Type Department Care Team Description 02/05/2007 Office Visit [facility], Other Plastic Surgery for Un acceptable Cosmetic Appearance; [address] [facility]. 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 [place], [place] [address] [place], [place] [phone] [address] Social History Tobacco Use Types Packs/Day Years Used Date Smoking Tobacco: Never Alcohol Use Standard Drinks/Week Comments Not Asked 0 (1 standard drink = 0.6 oz pure alcoho l) 1/mo Sex Assigned at Date Recorded Not on file documented as of this encounter Progress Notes Hebert Joiner - 02/05/2007 12:00 AM CDT Patient comes in today for sixth laser destruction of right lateral distal ankle tattoo. Again, there has been some mild scarring in the center with a red hot was noted and also on the more anterior portion. However, she is still fine with that given that the tattoo does seem to be fading. After full discussion, she does agree that we are reaching what appears to be the maximum improvement relative to the risks of further scarring, and we both believe that this probably will be the last treatment. She understands that there could be more scarring, there could be dyspigmentation, and that there would be to some degree residual tattoo. With her informed consent, knowing there would be a charge of $140 to [employer] and an independent fee to [employer], procedure was done. PROCEDURE: using appropriate eye protection using the [employer] Q-Switched Nd:YAG laser at 1064 wavelength 1000 millijoule with a 2 mm spot size were applied over multiple zones of remnant tattoo pigment on the right lower ankle. Patient tolerated well. Aftercare instructions were reviewed, dressings placed. This was all after 1% lidocaine with epinephrin locally. She will return to clinic p.r.n. 02/05/2007 12:19 P cc: Hebert Joiner - 02/05/2007 12:00 AM CDT documented in this encounter Plan of Treatment Not on filedocumented as of this encounter Visit Diagnoses Diagnosis Other plastic surgery for unacceptable c osmetic appearance Other dyschromia documented in this encounter Care Teams Route Jumper Relationship Specialty Start Date End Date Madisyn Smalls, DONNIE, JAVA SOFTWARE ENGINEER PCP - General 03/03/02 11/04/10 [address] [place] [address] documented as of this encounter
--- OUTSIDE RECORDS SUMMARY | 2022-04-23 15:36 | XMS_ITS | Encounter Summary ---
:1970 Author Organization [facility] Address [address], [place] [address] Care Team Providers Name Role Phone Britney Jarrett MD Primary Care Provider Reason for Visit Reason Comments Foot Pain or Injury Encounter Details Date Type Department Care Team Description 04/15/2013 Office Visit [facility] Jesus Patricio, Rosalina yeboah in (Primary Dx) Urgent Care [address] [place] [address] [address] [place] [address] [place], [place] [phone] (Wo rk) Social History Tobacco Use Types Packs/Day Years Used Date Smoking Tobacco: Never Alcohol Use Standard Drinks/Week Comments Not Asked 0 (1 standard drink = 0.6 oz pure alcoho l) 1/mo Sex Assigned at Date Recorded Not on file documented as of this encounter Last Filed Vital Signs Vital Sign Reading Time Taken Comments Blood Pressure - - Pulse - - Temperature 36.9 ??C (98.4 ??F) 04/15/2013 4:07 PM CDT Respiratory Rate - - Oxygen Saturation - - Inhaled Oxygen Concentration - - Weight 58.8 kg (129 lb 9 oz) 04/15/2013 4:07 PM CDT Height 147.3 cm (4' 10) 04/15/2013 4:07 PM CDT Body Mass Index 27.08 04/15/2013 4:07 PM CDT documented in this encounter Patient Instructions Patient InstructionsKarli Cooper - 04/15/2013 5:[address] Jesus Patricio MD Sports & Orthopaedic Medicine Acute [facility] Catalyst Impregnator: Kiana Loges Please call [facility] for all administrative questions at [phone] Please contact Nurse Triage for all medical questions at [phone] Please contact your Pharmacy for all medication refill requests documented in this encounter Progress Notes Jesus Patricio MD - 04/15/2013 5:47 PM CDT Progress Notes signed by Jesus Patricio MD at 04/18/13947 Author: Jesus Patricio MD Service: (none) Author Type: Physician Filed: 04/18/13947 Note Time: 04/15/131935 Status: Signed Aerial Installer: Jesus Patricio MD (Physician) NAME: RAHAT THOMASON VISIT: [id number] DICTATING CLINICIAN: JESUS PATRICIO MD JOB: [id number] Med JOB: [id number] LOC: 3711 CLINIC PROGRESS NOTE DATE OF VISIT: 04/15/2013 : 1970 This 42-year-old female presents for evaluation of right great toe injury suffered 04/14/2013. The patient fell and tripped going up stair and the toe hyperextended. She now complains of pain and difficulty with ambulation. Occasionally she will get some numbness and tingling. She has noticed a little bit of swelling. She has done some icing and ibuprofen. No prior history of great toe problems. MEDICAL HISTORY: Significant for herniated disk in her neck and chronic low back issues with spinal fusion. 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 OBJECTIVE: In general, she is alert and oriented x3. She is not acutely in distress. Temperature: 98.5. She does walk with a limp. She has swelling of the great toe. She has significant tenderness at the MTP joint. Slight loss of full motion there. She has good strength. Neurovascularly she is intact. Contralateral side is unremarkable. X-RAYS: X-rays are ordered and independently reviewed. Indication: Right great toe pain. Findings: No fracture, subluxation or joint space abnormalities. ASSESSMENT AND PLAN: Great toe sprain. Offered boot or postop shoe. She took the boot. Suggest frequent icing, Tylenol and ibuprofen as needed. If not making significant progress in the next month or getting worse, we will see her back for reevaluation. IM: 04/15/2013 05:47:47 pm MT: 27 documented in this encounter Plan of Treatment Not on filedocumented as of this encounter Visit Diagnoses Diagnosis Toe pain - Primary Pain in limb documented in this encounter Care Teams Nutrition Associate Relationship Specialty Start Date End Date Britney Jarrett MD PCP - General 04/15/13 04/03/161999 [place] [address] documented as of this encounter
--- OUTSIDE RECORDS SUMMARY | 2022-04-23 15:36 | XMS_ITS | Encounter Summary ---
:1970 Author Organization [facility] Address [address] [place] [address] Care Team Providers Name Role Phone Steve Alston MD Primary Care Provider Encounter Details Date Type Department Care Team Description 02/01/2009 PN Conversion Only [facility] [address] [facility] [place] [address] Social History Tobacco Use Types Packs/Day Years Used Date Smoking Tobacco: Never Alcohol Use Standard Drinks/Week Comments Not Asked 0 (1 standard drink = 0.6 oz pure alcoho l) 1/mo Sex Assigned at Date Recorded Not on file documented as of this encounter Plan of Treatment Not on filedocumented as of this encounter Visit Diagnoses Not on filedocumented in this encounter Care Teams Linux Kernel Developer Relationship Specialty Start Date End Date Steve Alston MD PCP - General 11/05/10 04/14/[address] [place] [address] [place] MACHUCA [address] documented as of this encounter
--- OUTSIDE RECORDS SUMMARY | 2022-04-23 15:36 | XMS_ITS | Encounter Summary ---
:1970 Author Organization [facility] Address [address], [place] [address] Care Team Providers Name Role Phone Madisyn Smalls APRN, CNP Primary Care Provider [phone] Reason for Visit Reason Comments BREAST LUMP left armpit area Encounter Details Date Type Department Care Team Description 04/03/2007 Office Visit [facility] Madisyn Smalls S inusitis (Chronic) (Primary Dx); Practice [facility] Axillary Swelling [address] [address] [phone] (Wo rk) Social History Tobacco Use Types Packs/Day Years Used Date Smoking Tobacco: Never Alcohol Use Standard Drinks/Week Comments Not Asked 0 (1 standard drink = 0.6 oz pure alcoho l) 1/mo Sex Assigned at Date Recorded Not on file documented as of this encounter Last Filed Vital Signs Vital Sign Reading Time Taken Comments Blood Pressure 120/68 04/03/2007 1:40 PM CDT Pulse 78 04/03/2007 1:40 PM CDT Temperature 36.7 ??C (98.1 ??F) 04/03/2007 1:40 PM CDT Respiratory Rate 12 04/03/2007 1:40 PM CDT Oxygen Saturation - - Inhaled Oxygen Concentration - - Weight - - Height - - Body Mass Index - - documented in this encounter Patient Instructions Patient Cbbxctmnzdlg76/31/2007 2:15 PM CDT Start the Flonase and monitor your symptoms this fall, Call or return to clinic prn if these symptoms worsen, fail to improve as anticipated, or if new symptoms develop. 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 1-Every fall she seems to get a sinus infection get put on Amoxicillin-it hangs on and then finally improved-never treated for allergies. Over the past several weeks has been experiencing more sinus fullness, slight scratchy throat and generally feeling slightly ill, No fevers, chills or sweats. Getting ready to go back to teaching and has been quite busy. 2-also noticed some swelling in her left axillary area over the past couple of weeks-just got her menses today which came one week early, has implants-exams are difficulty, breast Ca FH in PGM only OBJECTIVE: BP 120/68 Pulse 78 Temp (Src) 98.1 ??F (36.7 ??C) (Oral) Resp 12 LMP 04/03/2007 She appears well, alert and oriented, neatly and casually dressed, in no apparent distress. Ear/Nose/Mouth: External ears and nose are without lesions. Auditory canals have no redness, swelling, drainage or obstructing wax. TMs have no dullness, opacity, or bulging. Hearing is grossly intact.Teeth and gums show no sign of inflammation. Oropharynx shows no sign of inflammation or exudate EYES: PERRLA, EOMI, no conjunctival injection, no photophobia S1 and S2 normal, no murmurs, clicks, gallops or rubs. Regular rate and rhythm. Chest is clear; no wheezes or rales. No edema or jugular venous distension. Breasts: Breasts are symmetric. Exam difficult due to presence of implants, No dominant, discrete, fixed or suspicious masses are noted. No skin or nipple changes. No right axillary nodes. Left axillary area exam reveals severally minimally enlarged lymph nodes tender to the touch Self exam is taught and encouraged. Mammogram - mammogram [id number] ACR-1, no other mammograms (younger than 40) ASSESSMENT: URI vs allergy symptoms Left axillary adenopathy PLAN: Will try Flonase, Discussed medication in detail, including dosing, side effects, and interactions. Call or return to clinic prn if these symptoms worsen, fail to improve as anticipated, or if new symptoms develop. Will monitor the axillary area and call me in two weeks if discomfort and swelling persist-may send for ultrasound at that time. Josie indicates she understands and agrees with the plan of care. See After Visit Summary, patient instructions and orders. Madisyn Smalls NP documented in this encounter Plan of Treatment Not on filedocumented as of this encounter Visit Diagnoses Diagnosis Sinusitis (chronic) - Primary Unspecified sinusitis (chronic) Axillary swelling Swelling of limb documented in this encounter Care Teams Sub Plant Manager Relationship Specialty Start Date End Date Madisyn Smalls, HYDROMETALLURGICAL ENGINEER, TRAFFIC SERGEANT PCP - General 03/03/02 11/04/10 [address] [place] [address] documented as of this encounter
--- OUTSIDE RECORDS SUMMARY | 2022-04-23 15:36 | XMS_ITS | Encounter Summary ---
:1970 Author Organization [facility] Address [address] [place] [address] Care Team Providers Name Role Phone Britney Jarrett MD Primary Care Provider Encounter Details Date Type Department Care Team Description 04/15/2013 Imaging [facility] Toe pain [address] [place], [place] [address] Social History Tobacco Use Types [...] Priority Date/Time Associated Diagnosis Comme nts XR TOE RT 1ST GREAT Routine 04/15/2013 4:58 PM Toe pain Re sults for this 3 VIEWS CDT procedure are i n the results section. documented in this encounter Results XR Toe Rt 1st Great (04/15/2013 4:58 PM CDT) Anatomical Region Laterality Modality Lower Extremity, Foot, Foot & Ankle Othe r Specimen (Source) Anatomical Location Collection Method / Collectio n Time Received Time / Laterality Volume Narrative 04/15/2013 9:09 PM CDT Indication: ??Right great toe pain. Findings: ??No fracture, subluxation or joint space abnormalities. ?? Procedure Note Garrett Chairez MD - 01/19/2016Format ting of this note might be different from the original. Indication: Right great toe pain. Findings: No fracture, subluxation or criselda int space abnormalities. Garrett Chairez MD RAD GD documented in this encounter Visit Diagnoses Diagnosis Toe pain Pain in limb documented in this encounter Care Teams Music Journalist Relationship Specialty Start Date End Date Britney Jarrett MD PCP - General 04/15/13 04/03/16[address] [place] [address] documented as of this encounter
--- OUTSIDE RECORDS SUMMARY | 2022-04-23 15:36 | XMS_ITS | Encounter Summary ---
:1970 Author Organization [facility] Address [address] [address] Care Team Providers Name Role Phone Britney Jarrett MD Primary Care Provider Reason for Visit Reason Comments Hand Therapy Encounter Details Date Type Department Care Team Description 03/10/2014 Office Visit [facility] Brittanie Costa, OTR/L Medial epicondylitis [address] [facility] of elbow (Primary Dx) [place] [address] [phone] (Wo rk) Social History Tobacco Use Types Packs/Day Years Used Date Smoking Tobacco: Never Alcohol Use Standard Drinks/Week Comments Not Asked 0 (1 standard drink = 0.6 oz pure alcoho l) 1/mo Sex Assigned at Date Recorded Not on file documented as of this encounter Progress Notes Brittanie Costa OTR/L - 03/10/2014 1:03 PM CDT Hand Therapy Progress Note Date of : 1970 Referring Provider: Ovidio Mcdowell MD Diagnosis: Left medial epicondylitis. Orders: Evaluate and treat, splint, home exercise program including eccentric loading. Date of Onset: September 2013. Cause: Patient developed pain while working out with her parent trainer using free weights. Hand Dominance: Right Past medical History/Precautions: Refer to electronic medical record for past medical history, medications, and drug allergies. Hx of L6-7 fusion and cervical C6-7 fusion. Current right medial epicondylosis as well but left side if worse. Right hand current MCP sprain. She is treating it with bipin trejo now. Patient did stop weight lifting for 10 days when her elbow injury first happened but then returned to weight lifting. 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 Leisure/Sports: Weight lifts with a parent trainer 4x/week, biking, roller blading, kettle pena class, cross fit. Functional Limitations: The patient reports pain and/or difficulty with gripping, carrying, lifting,weight lifting and ADLs that involve resistance such as vacuuming and grocery shopping. SUBJECTIVE: The patient reports having MRI for a few weeks ago. Per MD continue therapy for elbow tendonitis. OBJECTIVE: Pain: Patient rates resting pain /10. Patient rates pain with working out /. 10/10 pain with pull ups. Edema: No swelling observed at the medial elbow. AROM: The patient has full motion at the elbow and wrist. Wrist AROM Right Left Extension/Flexion 60/65 60/70 Supination/Pronation 90/75 90/75 Extrinsic flexibility: Wrist extensor: Right: NT, Left: 0-65 degrees wrist flexor: Right: NT, Left: 0-45 degrees++ Strength: Did not test right side due to a MCP sprain in her hand. Right Left Pain-free technology methodology consultant, elbow at 0 degrees extension NT 44 lbs Maximum technology methodology consultant, elbow at 90 degrees flexion NT 55 lbs Sensation: The patient reports their sensation is intact. Special Tests: Left Palpation just distal to medial epicondyle + Palpation to medial epicondyle + Resisted wrist flexion (FCR greater than FCU) + Resisted FDS fingers + for ring finger only Resisted pronation - Valgus stress to elbow - Tinel's over cubital tunnel - Brito: + indicates reproduction of symptoms/pain. - indicates no symptoms/pain. Mild, moderate or severe = pain level with testing. NT = Not tested. TREATMENT INTERVENTION: The patient was educated on the condition, planned therapy intervention, and expectations from treatment. Goals were a collaborative effort between the patient and therapist. Risks, benefits, and alternatives to treatment have been explained. The patient was in agreement with the care plan. Splint: Reviewed appropriate application and use of a counter-force brace with symptom provoking activity asneeded during the day. She was able to technology methodology consultant 60# vs. 55# with the counter force strap. Patient will purchase the strap if she feels it will be helpful. Exercises: Reviewed and performed forearm stretches (with forearm pronated), 3-4x/day, 3 repetitions of each exercise with 30 second holds. May progress to advanced flexor stretches as tolerated but advised to make sure they are painfree. Did not initiate eccentric strengthening due to elevated pain. Reviewed flexor isometrics strengthening. Recommended ice massage as needed. Manual therapy: Performed instrument assisted soft tissue mobilization using Graston Technique instruments to myofascial restrictions of the flexor pronator wad especially near the origin, wrist extensors, triceps and biceps. Post manual therapy completed Hybresis #1 for a 3 minute application to medial epicondyle in order to reduce skin impedance. 1.5mL dexamethasone per standard protocol. Education: The patient was educated on the diagnosis, activity modification techniques, and pain management techniques including use of ice and trigger point release. ASSESSMENT: Symptoms are consistent with medial epicondylitis. Functional limitations are due to pain and decreased flexibility and strength. Rehab prognosis is good to achieve stated goals. Mood, orientation, and behavior were appropriate. Patient was alert and oriented. No apparent barriers to learning observed. Functional Goals: Following today???s treatment session, the patient will: demonstrate understanding of splint wear and care instructions. demonstrate understanding of activity modification techniques. demonstrate understanding of pain management techniques. demonstrate understanding of home exercise program. STG: Patient will lift up to 5# grocery bag with minimal to no difficulty or pain in 6 weeks. LTG: Patient will perform aircraft engine specialist and weight lift using free weights with minimal to no difficulty or pain in 12 weeks. PLAN: The patient will return for additional therapy. Discharge is planned as functional outcomes are achieved, progress has reached a plateau or adequate progress is made such that the patient is able to self-manage with their home program. Patient was provided with the clinic number and instructed to callwith any questions or concerns. Next Treatment Session: Check response to hybresisRe-eval and progress HEP. Initiate modalities for additional pain relief, continue Graston. Check on advancing flexor stretches to supinated stretches. Visit frequency/duration: Patient will be seen 1x every other week for 4 visits. Treatment Plan: AROM, AAROM, PROM, strengthening, modalities, manual therapy, patient education and training. Total Treatment Time: 45 minutes Therapist Signature: JUANY Alva/Hiwot,T #[id number] Visit #08/08 Charges: Therapeutic Exercise (CPT 45473) 30 minutes Manual Therapy, 1 or more regions (CPT 98135) 15 minutes documented in this encounter Plan of Treatment Not on filedocumented as of this encounter Visit Diagnoses Diagnosis Medial epicondylitis of elbow - Primary documented in this encounter Care Teams Web Designer Developer Relationship Specialty Start Date End Date Britney Jarrett MD PCP - General 04/15/13 04/03/16[address] [place] [address] documented as of this encounter
--- OUTSIDE RECORDS SUMMARY | 2022-04-23 15:36 | XMS_ITS | Encounter Summary ---
:1970 Author Organization [facility] Address [address] [place] [address] Care Team Providers Name Role Phone Steve Alston MD Primary Care Provider Encounter Details Date Type Department Care Team Description 12/04/2010 PN Conversion Only CONVERSION CONVERSION Steve Alston MD [address] [facility] [address] [place], [place] [address] (Wo rk) Social History Tobacco Use Types [...] on filedocumented in this encounter Care Teams Heavy Equipment Diesel Mechanic Relationship Specialty Start Date End Date Steve Alston MD PCP - General 11/05/10 04/14/[address] [place] [address] documented as of this encounter
--- OUTSIDE RECORDS SUMMARY | 2022-04-23 15:36 | XMS_ITS | Encounter Summary ---
:1970 Author Organization [facility] Address [address] [address] Care Team Providers Name Role Phone Britney Jarrett MD Primary Care Provider Reason for Visit Reason Comments Elbow Pain Encounter Details Date Type Department Care Team Description 02/23/2014 Office Visit [facility] Mary Grace Mcgowan radiculopathy (Primary Dx); Urgent Care [facility] [place] H/O cervical spine surgery; [address] [facility] [address] [place] [address] [place]ial [place] [address] [phone] (Wo rk) Social History Tobacco Use Types [...] - - Temperature 36.8 ??C (98.2 ??F) 02/23/2014 3:37 PM CDT Respiratory Rate - - Oxygen Saturation - - Inhaled Oxygen Concentration - - Weight - - Height - - Body Mass Index - - documented in this encounter Patient Instructions Patient InstructionsVera Bone MA - 02/23/2014 3:[address] Mary Grace Daniel MD Sports & Orthopaedic Medicine [facility] Compensation And Hris Analyst: Kiana Loges Please fax all paperwork correspondence to [phone] [facility] Nurse Line: [phone] Please contact [facility] Nurse line for all requests and questions. Medication Requests: Prescriptions are not filled on Weekends or on Weekdays after 3:00PM For all medication refills: Request a refill using MyChart or contact your Pharmacy documented in this encounter Progress Notes Mary Grace Daniel MD - 02/25/2014 8:07 AM CDT Progress Notes signed by Mary Grace Daniel MD at 02/25/142052 Author: Mary Grace Daniel MD Service: (none) Author Type: Physician Filed: 02/25/142052 Note Time: 02/25/14954 Status: Signed Room Manager: Mary Grace Daniel MD (Physician) NAME: RAHAT THOMASON MR#: [id number] CSN: [id number] AUTHENTICATING CLINICIAN: Mary Grace Daniel MD CONFIRM #: [id number] LOC: 711 CLINIC PROGRESS NOTE DATE OF VISIT: 02/23/2014 : 1970 CHIEF COMPLAINT: Left arm pain. HISTORY OF PRESENT ILLNESS: This is a pleasant, 43-year-old female who is quite concerned as she recently has had medial epicondylitis, but underlying this she has had a problem with neck degenerative disks. Five years ago she had C6-7 surgery was told that the 2 levels above were degenerative as well, but did not require surgery. She has also had low back surgery. Since the beginning of all this, she has recently started doingtwo separate things. One of them is that she has been doing CATHERINE therapy to her left arm. The second is that she has been working with a personal lines sales rep who has been having her laying on a foam roller behind her shoulder blades and working with increasing her range of motion of her neck. During this timeframe she started to get radicular symptoms into her left arm, going to the medial aspect of the elbow into the medial aspect of the hand. She does have her 5 year checkup with her surgeon, Dr. Dupree, coming up in the next week, but is concerned about all of the underlying issues and is tearful thatthere may be another surgery involved for her neck. PHYSICAL EXAM: Temperature 98.2. Pleasant but tearful female accompanied by her . Examination of her cervical spine, overall normal in appearance. She has no one focal area of tenderness to palpation. Her range of motion is symmetric right to left, and mildly reproductive of radicular symptoms. Examination ofher left upper extremity does reproduce pain along the medial epicondyle and she has pain reproducedwith resisted flexion of the wrist localized to the medial epicondyle. She has intact dermatomes andintact strength. ASSESSMENT: Left medial epicondylitis and cervical radiculopathy. PLAN: At this point in time we discussed that I think most of her cervical radicular symptoms are being recreated by the fact that she is working with a personal lines sales rep to try to engage range of motion, which I think is probably not of benefit to her. I would not recommend that she continue on that path and because of the increased pain with the CATHERINE, I would also recommend that she discontinue that as well. I would prefer that she work with a hand therapist and do traditional physical therapy for her medial epicondylitis. We will get an MRI of her cervical spine with and without contrast to help her understand at what state her neck is in, particularly in light of the fact that she will be following with Dr. Dupree and they can discuss the results further. She will have this done at [facility] for claustrophobia and also because this is where her previous MRI was done. HDT:SOFY C: R:02/25/14 08:16 CONFIRM#:[id number] documented in this encounter Plan of Treatment Not on filedocumented as of this encounter Visit Diagnoses Diagnosis Cervical radiculopathy - Primary Brachial neuritis or radiculitis nos H/O cervical spine surgery Personal history of surgery to other org ans Medial epicondylitis of elbow documented in this encounter Care Teams Technical Document Writer Relationship Specialty Start Date End Date Britney Jarrett MD PCP - General 04/15/13 04/03/16[address] [place] [address] documented as of this encounter
--- OUTSIDE RECORDS SUMMARY | 2022-04-23 15:36 | XMS_ITS | Encounter Summary ---
:1970 Author Organization [facility] Address [address] [address] Care Team Providers Name Role Phone Britney Jarrett MD Primary Care Provider Reason for Visit Reason Comments Hand Pain or Injury INJURY, ELBOW Encounter Details Date Type Department Care Team Description 02/07/2014 Office Visit [facility] Ovidio Mcdowell W, Medial epicondylitis of elbow (Primary Dx); Urgent Care Finger sprain; [address] [facility] Pain in joint, [place] [address] [phone] (Wo rk) Social History Tobacco Use Types Packs/Day Years Used Date Smoking Tobacco: Never Alcohol Use Standard Drinks/Week Comments Not Asked 0 (1 standard drink = 0.6 oz pure alcoho l) 1/mo Sex Assigned at Date Recorded Not on file documented as of this encounter Last Filed Vital Signs Vital Sign Reading Time Taken Comments Blood Pressure 100/58 02/07/2014 1:06 PM CDT Pulse - - Temperature 36.7 ??C (98.1 ??F) 02/07/2014 1:06 PM CDT Respiratory Rate - - Oxygen Saturation - - Inhaled Oxygen Concentration - - Weight 58.1 kg (128 lb) 02/07/2014 1:06 PM CDT Height 152.4 cm (5') 02/07/2014 1:06 PM CDT Body Mass Index 25 02/07/2014 1:06 PM CDT documented in this encounter Patient Instructions Patient InstructionsLetty Hernandez, COLLABORATING SUPERVISING PHYSICIAN - 02/07/2014 1:[address] Ovidio Mcdowell MD Sports & Orthopaedic Medicine [facility] Customer Service Rep: Kiana Pena Please fax all paperwork correspondence to [phone] [facility] Nurse Line: [phone] Please contact [facility] Nurse line for all requests and questions. Medication Requests: Prescriptions are not filled on Weekends or on Weekdays after 3:00PM For all medication refills: Request a refill using MyChart or contact your Pharmacy Lt elbow pain Rt hand pain documented in this encounter Progress Notes Ovidio Mcdowell MD - 02/09/2014 1:50 PM CDT Progress Notes signed by Ovidio Mcdowell MD at 02/11/14925 Author: Ovidio Mcdowell MD Service: (none) Author Type: Physician Filed: 02/11/14925 Note Time: 02/09/141455 Status: Signed Gridcap Machine Operator: Ovidio Mcdowell MD (Physician) NAME: RAHAT THOMASON MR#: [id number] CSN: [id number] AUTHENTICATING CLINICIAN: Ovidio Mcdowell MD CONFIRM #: [id number] LOC: 711 CLINIC PROGRESS NOTE DATE OF VISIT: 02/07/2014 : 1970 CHIEF COMPLAINT: Elbow pain and finger pain. HISTORY OF PRESENT ILLNESS: This 43-year-old female presents for evaluation of elbow pain that has been going on for approximately 4 months, her hand just since January. She states that she was moving a table and her fingers got bent back. In addition, she has had pain with weightlifting of her elbow. She feels like it flares up mostly with doing curls or pulling or lifting things. Her finger is more painful with twisting jars or lids off. She states that it hurts on the inside portion of her elbow. She has tried some rest and activity modification to this point. REVIEW OF SYSTEMS: No fever or rash. She does have some numbness and tingling. PAST MEDICAL HISTORY: Negative for diabetes. She does have a history of carpal tunnel and spondylolisthesis. 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 Enjoys [employer] and weightlifting. PHYSICAL EXAM: Her temperature is 98.1. SKIN: Normal. Capillary refill normal. NEUROLOGIC: Normal. EVALUATION OF HER LEFT ELBOW: Reveals tenderness to palpation over the medial epicondyle. She has pain with resisted wrist flexion. No pain over the lateral epicondyle or olecranon. EVALUATION OF HER RIGHT HAND: Reveals tenderness to palpation along the ring finger metacarpophalangeal joint. She is able extend her fingers against resistance, flex at the DIP and PIP joints against resistance. There is no rotational deformity. There is no subluxation of a tendon or mass. There is no boutonniere or swan neck deformity. RADIOGRAPHIC STUDIES: X-rays were ordered and independently reviewed. Three views of the right ring finger. INDICATION: Pain. FINDINGS: No definitive fracture. ASSESSMENT: 1. Right ring finger metacarpophalangeal joint sprain. 2. Left elbow medial epicondylitis. PLAN: Educated the patient regarding her condition and management. After discussion recommended bipin straps, taping of her finger and hand therapy for eccentric loading and home exercise program for her left elbow. I did discuss with her autologous blood injection should she not improve with therapy. She verbalized understanding. CWM: C: R:02/09/14 13:59 CONFIRM#:[id number] documented in this encounter Plan of Treatment Not on filedocumented as of this encounter Visit Diagnoses Diagnosis Medial epicondylitis of elbow - Primary Finger sprain Sprain of hand, unspecified site Pain in joint, hand documented in this encounter Care Teams Office Manager Receptionist Relationship Specialty Start Date End Date Britney Jarrett MD PCP - General 04/15/13 04/03/161999 [place] [address] documented as of this encounter
--- OUTSIDE RECORDS SUMMARY | 2022-04-23 15:36 | XMS_ITS | Encounter Summary ---
:1970 Author Organization [facility] Address [address] [address] Care Team Providers Name Role Phone Britney Jarrett MD Primary Care Provider Encounter Details Date Type Department Care Team Description 03/02/2014 Imaging [id number] RADIOLOGY [facility] [address] [place] [address] Social History Tobacco Use Types Packs/Day Years [...] Diagnosis Comme nts FOREIGN IMAGE(S) MR Routine 03/02/2014 12:00 AM R esults for this SPINE CDT procedure are i n the results section. documented in this encounter Results Foreign Image(S) MR Spine (03/02/2014 12:00 AM CDT) Anatomical Region Laterality Modality Spine Other Specimen (Source) Anatomical Location Collection Method / Collectio n Time Received Time / Laterality Volume Narrative 03/04/2014 10:49 AM CDT These outside images have been uploaded into PACS. If the results were provided, they will be located on the Media tab in the patient's chart. Procedure Note Conversion, Imr - 06/20/2016Formatting o f this note might be different from the original. These outside images have been uploaded into PACS. If the results were provided, they will be located on the Media tab in the patient's chart. Mary Grace Daniel MD RAD NON-REPORTABLES documented in this encounter Visit Diagnoses Not on filedocumented in this encounter Care Teams Clothes Separator Relationship Specialty Start Date End Date Britney Jarrett MD PCP - General 04/15/13 04/03/16[address] [place] [address] documented as of this encounter
--- OUTSIDE RECORDS SUMMARY | 2022-04-23 15:36 | XMS_ITS | Encounter Summary ---
:1970 Author Organization [facility] Address [address] [address] Care Team Providers Name Role Phone Luis Smalls APRN, CNP Primary Care Provider [phone] Reason for Visit Reason Comments ROUTINE HEALTH MAINTENANCE Encounter Details Date Type Department Care Team Description 02/05/2007 Office Visit [facility] Luis Smalls R outine General Medical Examination at Health Care Facility (Primary Dx); Practice [facility] Breast Screening, Unspecified; [address] [facility] [address] [facility] Screening for Malignant [place] [address] [phone] (Wo rk) Social History Tobacco Use Types Packs/Day Years Used Date Smoking Tobacco: Never Alcohol Use Standard Drinks/Week Comments Not Asked 0 (1 standard drink = 0.6 oz pure alcoho l) 1/mo Sex Assigned at Date Recorded Not on file documented as of this encounter Last Filed Vital Signs Vital Sign Reading Time Taken Comments Blood Pressure 94/60 02/05/2007 2:40 PM CDT Pulse 78 02/05/2007 2:40 PM CDT Temperature 36.9 ??C (98.5 ??F) 02/05/2007 2:40 PM CDT Respiratory Rate 12 02/05/2007 2:40 PM CDT Oxygen Saturation - - Inhaled Oxygen Concentration - - Weight 55.5 kg (122 lb 4 oz) 02/05/2007 2:40 PM CDT Height 149.9 cm (4' 11) 02/05/2007 2:40 PM CDT Body Mass Index 24.69 02/05/2007 2:40 PM CDT documented in this encounter Patient Instructions Patient Nlleaqlihqpo54/05/2007 3:16 PM CDT Body mass index is 24.69 kg/(m^2). documented in this encounter Progress Notes Luis Smalls - 02/06/2007 8:10 AM CDT S> Rahat Thomason a 36 yr yr old female is in for routine health maintenance. She feels generally well. Current concerns: none-has been doing LA weight loss and had been down to 120- unable to get there again. Menses are regular and predictable Sexual activity: monogamous in a stable relationship Contraception: with vasectomy Cardiovascular risk factors: Total # of Risk Factors for this patient = 0 Nutrition/diet/weight concerns: no concerns Calcium intake: three or more servings daily Present dietary habits: sticks closely to a low fat, high fiber diet. Present exercise habits: exercises vigorously 5-7 times a week. Health Maintenance Topic Date Due ??? Imm: hbv (#1) 1970 ??? Imm: td 04/27/2009 ??? Pap 02/05/2010 CHOLESTEROL (mg/dl) Date Value 02/02/2007 154 04/02/2004 208* HDL (mg/dl) Date Value 02/02/2007 62 LDL, CALC. (mg/dl) Date Value 02/02/2007 78 TRIGLYCERIDE (mg/dl) Date Value 02/02/2007 70 I have asked the patient and reviewed the following history(ies): Family, Medical, Social and Surgical Review of systems include: EYES: no visual blurring, no double vision, no eye pain, ENT: no decrease in hearing, no dental problems, no persistently sore throat RESPIRATORY: no shortness of breath, no cough, no wheezing CARDIOVASCULAR: no palpitations, no chest pain GASTROINTESTINAL: normal appetite, no nausea, no heartburn or reflux, no abdominal pain, no melena, no hematochezia, no constipation, no diarrhea GENITOURINARY: no dysuria, no frequency, no urgency, no hematuria, no incontinence, no vaginal itching or discharge, no intermenstrual, or post-coital bleeding MUSCULOSKELETAL: no weakness, no muscle pains SKIN: no rash, no hair changes, no nail changes, no pigmentation change NEUROLOGIC: no numbness or tingling of hands, no numbness or tingling of feet, no syncope PSYCHIATRIC: no sleep disturbances, no anxiety, no depression, no excessive alcohol consumption, no illegal drug use, no relationship problems, no sexual difficulties, HEMATOLOGIC/LYMPHATIC/IMMUNOLOGIC: no fevers, no night sweats, no chills, no unexpected weight loss ENDOCRINE: no cold intolerance, no heat intolerance, no polydypsia, no polyphagia O> General: 36 yr pleasant female who appears her stated age. BP 94/60 Pulse 78 Temp (Src) 98.5 ??F (36.9 ??C) (Oral) Resp 12 Ht 4' 11 (1.499 m) Wt 122lbs 4.0 oz (55.452 kg) LMP 01/18/2007 Body mass index is 24.69 kg/(m^2). Last 2 Encounter Wt Readings: Date Wt 02/05/2007 122 lbs 4.0 oz (55.452 kg) 12/12/2005 135 lbs 8.0 oz (61.462 kg) HEENT: Eyes: no lesions of lids, mattering or redness Head: normocephalic Mouth and throat: without erythema or lesions of the mucosa Nose: without septal or mucosal abnormalities Ears: external canals and TMs free of lesions or abnormalities Neck: supple, without adenopathy or thyromegaly. Lungs: clear to auscultation, no wheezes, no crackles Breasts: no dominant mass or nipple changes, no axillary or supraclavicular adenopathy, no skin changes CV: regular rate and rhythm, normal S1 and S2 without murmur or click Abd: soft, non-tender, no masses, no hepatomegaly or splenomegaly. : normal appearance of external genitalia, vaginal mucosa, and cervix and no palpable abnormalities on bimanual exam MS: extremities: no sign of deformity, atrophy, tenderness, asymmetry or edema, good muscle tone & symmetry, normal alignment of lower extremities Skin: clear to inspection and with no palpable abnormalities. Neuro: sensation and motor function grossly intact; cranial nerves without obvious abnormalities. A> Preventive Evaluation and Exam Encounter Diagnoses Code Name Primary? V70.0A Routine General Medical Examination at Health Care Facility Yes ??? V76.10 Breast Screening, Unspecified ??? V76.2 Screening for Malignant Neoplasm of the Cervix P> See today's orders for details Discussed the importance of low fat, high fiber diet and regular daily exercise, encouraged adequatecalcium intake and recommended no more than 1 alcoholic beverage per day Follow-up in 1 Year for preventive care or as directed if low risk. Rahat is encouraged to do monthly BSE, come in to clinic for yearly CBE See after visit summary and patient instructions. Luis Smalls NP 8:09 AM 02/06/2007 documented in this encounter Plan of Treatment Not on filedocumented as of this encounter Procedures Procedure Name Priority Date/Time Associated Diagnosis Comme nts PAP TEST, ROUTINE Routine 02/05/2007 2:40 PM Screening for Res ults for this CDT Malignant Neoplasm procedure are in of the Cervix the results section. documented in this encounter Results PAP TEST, ROUTINE [[id number]] (02/05/2007 2:40 PM CDT) Component Value Ref Test Analysis Performed At [facility] Range Method Time Signature Cytology, (NOTE) Logic[employer] Pap Bicycle Mechanic Cytology Report Patient Name: RAHAT THOMASON Taken: 02/05/2007 Received: 02/06/2007 Reported: 02/16/2007 Physician(s): LUIS SMALLS ([id number]) ?Source of Specimen Liquid routine Pap, cervical/endocervical: ?Specimen Adequacy ?Satisfactory for evaluation. ??Endocervical component present. ? Final Cytologic Interpretation/Result NEGATIVE FOR INTRAEPITHELIAL LESION OR MALIGNANCY (NILM) ? crw2/02/16/2007 Electronically Signed Out By Veronique Akins, ??CT (ASCP ) Veronique Akins, ??CT (ASCP) ?Pap Smear History ?Date of Last Menstrual Period: ? 01/18/07 ?Contraceptive History: ?Not Stated/Unknown ?Other Clinical Conditions: ?LAST PAP: Normal HPV reflex testing requested with interpretation of ASCUS ? Specimen Anatomical Collection Method Collection Time Receive d Time (Source) Location / / Volume Laterality 02/05/2007 2:40 PM 7 6:18 CDT AM CDT Luis Smalls APRN, CNP LAB_1 Performing Organization Address City/State/ZIP Code Phon e Number [facility] [phone] [address] documented in this encounter Visit Diagnoses Diagnosis Routine general medical examination at [facility] facility - Primary Routine general medical examination at a [facility] facility Breast screening, unspecified Screening for malignant neoplasm of the cervix documented in this encounter Care Teams Oil Spreader Operator Relationship Specialty Start Date End Date Luis Smalls APRN, CNP PCP - General 03/03/02 11/04/10 [address] [place] [address] documented as of this encounter
--- OUTSIDE RECORDS SUMMARY | 2022-04-23 15:36 | XMS_ITS | Encounter Summary ---
:1970 Author Organization [facility] Address [address] [address] Care Team Providers Name Role Phone Britney Jarrett MD Primary Care Provider Reason for Visit Reason Comments Arm Injury Neck Pain Encounter Details Date Type Department Care Team Description 03/04/2014 Office Visit [facility] Mary Grace Daniel Medial epicondylitis of elbow (Primary Dx); Urgent Care MD [place] H/O cervical spine surgery [address] [place] [address] [place], [place] [address] [phone] (Wo rk) Social History Tobacco Use Types Packs/Day Years Used Date Smoking Tobacco: Never Alcohol Use Standard Drinks/Week Comments Not Asked 0 (1 standard drink = 0.6 oz pure alcoho l) 1/mo Sex Assigned at Date Recorded Not on file documented as of this encounter Last Filed Vital Signs Vital Sign Reading Time Taken Comments Blood Pressure - - Pulse - - Temperature 36.4 ??C (97.5 ??F) 03/04/2014 11:02 AM CDT Respiratory Rate - - Oxygen Saturation - - Inhaled Oxygen Concentration - - Weight - - Height - - Body Mass Index - - documented in this encounter Patient Instructions Patient InstructionsGogo Montalvo MA - 03/04/2014 11:[address] Mary Grace Daniel MD Sports & Orthopaedic Medicine [facility] Document Review Attorney: Kiana Pena Please fax all paperwork correspondence to [phone] [facility] Nurse Line: [phone] Please contact [facility] Nurse line for all requests and questions. Medication Requests: Prescriptions are not filled on Weekends or on Weekdays after 3:00PM For all medication refills: Request a refill using MyChart or contact your Pharmacy neck and arm pain medial epicondylitis Hand PT follow up as needed documented in this encounter Progress Notes Mary Grace Daniel MD - 03/05/2014 7:06 PM CDT Progress Notes signed by Mary Grace Daniel MD at 03/09/142053 Author: Mary Grace Daniel MD Service: (none) Author Type: Physician Filed: 03/09/142053 Note Time: 03/07/14714 Status: Signed Curb Setter Helper: Mary Grace Daniel MD (Physician) NAME: RAHAT THOMASON MR#: [id number] CSN: [id number] AUTHENTICATING CLINICIAN: Mary Grace Daniel MD CONFIRM #: [id number] LOC: 711 CLINIC PROGRESS NOTE DATE OF VISIT: 03/04/2014 : 1970 CHIEF COMPLAINT: Elbow pain. This is a 43-year-old female coming in with medial-sided elbow pain and she also has a history of cervical surgery and we obtained an MRI for radicular symptoms. MRI done at [facility] shows: 1. Postoperative changes at C6-7 with a diskectomy and fusion. There is no postoperative complication at C6-7 status post anterior instrumented diskectomy and fusion, although osseous fusion status is indeterminate. 2. Severe C5-6 spondylosis with bulge and mild right foraminal stenosis without cord impingement. 3. C4-5 disk protrusion contacts the cord with mild chronic right foraminal stenosis. 4. C3-4 disk bulge without stenosis or neural impingement and no signal cord alteration or mass lesion. PHYSICAL EXAM: Pleasant female accompanied by her . Examination of the left elbow continues to show her to be tender along the medial epicondyle and along the ulnar nerve in that region. PLAN: At this point in time we discussed the cervical spine MRI, that there is nothing that needs dramaticimmediate attention. She already has a followup with her surgeon who will be reviewing this MRI withher at that point in time. At this point in time she has only been doing home exercises for her leftelbow. I really recommend that she work with the hand therapist to do more aggressive therapy for itand she will be following with her surgeon as well as returning if she is having ongoing problems. HDT: C: R:03/05/14 19:21 CONFIRM#:[id number] documented in this encounter Plan of Treatment Not on filedocumented as of this encounter Visit Diagnoses Diagnosis Medial epicondylitis of elbow - Primary H/O cervical spine surgery Personal history of surgery to other org ans documented in this encounter Care Teams Senior Writer Relationship Specialty Start Date End Date Britney Jarrett MD PCP - General 04/15/13 04/03/161999 [place] [address] documented as of this encounter
--- OUTSIDE RECORDS SUMMARY | 2022-04-23 15:36 | XMS_ITS | Encounter Summary ---
:1970 Author Organization [facility] Address [address] [place] [address] Care Team Providers Name Role Phone Steve Alston MD Primary Care Provider Encounter Details Date Type Department Care Team Description 03/06/2010 Office Visit [facility] Sharifa Huber MD Care [address] [employer] [address] [place] [address] [place] [id number] [phone] Social History Tobacco Use Types Packs/Day Years Used Date Smoking Tobacco: Never Alcohol Use Standard Drinks/Week Comments Not Asked 0 (1 standard drink = 0.6 oz pure alcoho l) 1/mo Sex Assigned at Date Recorded Not on file documented as of this encounter Progress Notes Sharifa Huber MD - 03/06/2010 12:01 AM CDT Progress Notes signed by Sharifa Huber MD at 03/07/10 0922 Author: Sharifa Huber MD Service: (none) Author Type: Physician Filed: 11/25/10 0149 Note Time: 03/06/10 0001 Status: Signed Application Support: Sharifa Huber MD (Physician) NAME: RAHAT THOMASON VISIT: [id number] DICTATING CLINICIAN: SHARIFA HUBER MD JOB: [id number] LOC: 3711 CLINIC PROGRESS NOTE DATE OF VISIT: 03/06/2010 : 1970 SUBJECTIVE: This is a 39-year-old female who has been seen in the past for her left knee. She comes in with worsening right knee pain. The pain is localized to the inner aspect, and she has clicking, catching, and locking. The pain is worse with long periods on her feet or sitting in the same position. There is difficulty with kneeling and squatting. She has tried ice and antiinflammatories with no improvement. REVIEW OF SYSTEMS: No fevers, chills, joint pain or swelling in other joints. CURRENT MEDICATIONS: Reviewed on electronic medical record as were past medical history and surgical history. ADR/ALLERGIES: REVIEWED ON ELECTRONIC MEDICAL RECORD WERE PAST MEDICAL HISTORY AND SURGICAL HISTORY. 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 She enjoys cardio and strength training. She denies tobacco. PHYSICAL EXAM: Her temperature is 98.0. GENERAL: She is alert, pleasant, and in no acute distress. She ambulates with a limp favoring her right knee. On inspection of the right knee, there is a small effusion compared to the contralateral side. She has tenderness to palpation over the medial joint line, mainly at the posterior aspect and along the proximal medial tibia. There is pain with circumduction and Sandi's maneuvers. She is otherwise ligamentously, neurovascularly, and neurologically intact. X-RAYS: Three views of the right knee reviewed by me today. Indication: Right knee pain and swelling. Results: Mild medial compartment Throckmorton's changes. Small effusion on lateral views. No loose bodies or cortical defects. ASSESSMENT: Right knee pain and swelling concerning for a medial meniscal tear. PLAN: I recommended sending the patient for an MRI to evaluate her medial meniscus and check for a loose body or chondral lesion not visible on today's x-rays. I would consider a cortisone injection with physical therapy depending on the response. If there is a large displaced tear, she may benefit from surgical intervention. ADDENDUM: The patient returned after her right knee MRI. Results are as follows: 1. Mild chondromalacia patella. 2. Edema and small cystic change in the superior lateral portion of Hoffa's fat pad between the lateral patellar facet and lateral femoral trochlea, suggestive of an impingement injury. 3. Findings suggestive of mild pes anserine bursitis. This is ready by Dr. Giovanny Chirinos ASSESSMENT AND PLAN: Right knee pain and swelling with no MRI evidence for meniscal injury, but signs consistent with pes anserine bursitis as well as Hoffa's fat pad impingement. I discussed the results with the patient. I recommended formal physical therapy, working on range of motion and strength. She can use ice and antiinflammatories. I would like to see her back in two weeks if not improving. I would consider a cortisone injection. At physical therapy, she will also get dexamethasone iontophoresis and phonophoresis. DOCUMENT: [id number] documented in this encounter Plan of Treatment Not on filedocumented as of this encounter Procedures Procedure Name Priority Date/Time Associated Diagnosis Comme nts XR KNEE RT 3 VIEWS Routine 03/06/2010 9:14 AM Res ults for this CDT procedure are i n the results section. documented in this encounter Results XR Knee Rt 3 Views (03/06/2010 9:14 AM CDT) Anatomical Region Laterality Modality Lower Extremity, Knee Other Specimen (Source) Anatomical Location Collection Method / Collectio n Time Received Time / Laterality Volume Narrative 03/06/2010 9:14 AM CDT Indication: ??Right knee pain and swelling. Results: ??Mild medial compartment Fairb ank's changes. ??Small effusion on lateral views. ??No loose bodies or c ortical defects. Dictating SHARIFA MEEHAN MD Procedure Note Sharifa Huber MD - 01/19/2016Formatt ing of this note might be different from the original. Indication: Right knee pain and swelling . Results: Mild medial compartment Fairban k's changes. Small effusion on lateral views. No loose bodies or cor tical defects. Dictating SHARIFA MEEHAN MD Sharifa Huber MD RAD GD documented in this encounter Visit Diagnoses Not on filedocumented in this encounter Care Teams Web Services Manager Relationship Specialty Start Date End Date Steve Alston MD PCP - General 11/05/10 04/14/[address] [place] [address] [address] [place] [address] documented as of this encounter
--- OUTSIDE RECORDS SUMMARY | 2022-04-23 15:36 | XMS_ITS | Encounter Summary ---
:1970 Author Organization [facility] Address [address] [place] [address] Care Team Providers Name Role Phone Steve Alston MD Primary Care Provider Encounter Details Date Type Department Care Team Description 02/01/2009 Office Visit [facility] William Quan MD Care [facility] [address] [place] [address] [place], [place] [address] [phone] Social History Tobacco Use Types Packs/Day Years Used Date Smoking Tobacco: Never Alcohol Use Standard Drinks/Week Comments Not Asked 0 (1 standard drink = 0.6 oz pure alcoho l) 1/mo Sex Assigned at Date Recorded Not on file documented as of this encounter Progress Notes William Quan MD - 02/01/2009 12:01 AM CDT Progress Notes signed by William Quan MD at 02/18/09 1406 Author: William Quan MD Service: (none) Author Type: Physician Filed: 11/24/10 1555 Note Time: 02/01/09 0001 Status: Signed Technical Support Professional: William Quan MD (Physician) NAME: RAHAT THOMASON VISIT: [id number] DICTATING CLINICIAN: WILLIAM QUAN MD JOB: [id number] LOC: 3711 CLINIC PROGRESS NOTE DATE OF VISIT: 02/01/2009 : 1970 SUBJECTIVE: Rahat is a 38-year-old woman who complains of neck pain. She has had longstanding neck pain issues but in the last 2-1/2 weeks this has worsened. She complains of numbness and tingling over the flexor surface of her forearm and near her triceps. She also notices that her triceps on the right is weak. In addition, she has numbness over her 2nd and 3rd fingers. She recently had an MRI at [facility] of her cervical spine and would like evaluation for her neck today. The pain is mild to moderate. It is worse with activity and better with rest. No fever and no rash. 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 She is usually healthy with the exception of some lower back surgery for spondylolisthesis in 1984. OBJECTIVE: GENERAL: Appears well in no acute distress. Alert and oriented, cooperative and pleasant. NECK: Neck range of motion is normal. Spurling's causes some radiating discomfort into the arm. No cervical spine tenderness. Shoulder shrug is negative. Testing of the strength in the upper extremity reveals that the triceps strength is 4+/5 on the right but otherwise all the strength in the upper extremity is 5/5. There is some sensation deficit over the hand, the 2nd and 3rd fingers. Otherwise, there is no sensory deficit. Skin is intact. IMAGING: The MRI report from [facility] was reviewed with the patient and there are several findings of abnormalities in the cervical spine, the most prominent of which being a disk herniation at C6-7 compressing the right C7 nerve root. ASSESSMENT: This is a 38-year-old woman with right C7 cervical radiculopathy. RECOMMENDATIONS: 1. Physical therapy to work on neck strengthening and range of motion. 2. Follow closely in the clinic to monitor her strength and if triceps strength or any arm strength is changing or worsening we will take more aggressive action. 3. Follow up as scheduled with Dr. Serrano but if unable to get in in the next week to 2 weeks followup in the [facility] for reevaluation. 4. Will consider referral to injection clinic in the future for pain relief. 5. Will consider consultation with neurosurgery regarding surgical options in the future if symptoms progress. 6. Return to clinic sooner if symptoms worsen or change. DOCUMENT: [id number]. nilson documented in this encounter Plan of Treatment Not on filedocumented as of this encounter Visit Diagnoses Not on filedocumented in this encounter Care Teams Batting Machine Operator Relationship Specialty Start Date End Date Steve Alston MD PCP - General 11/05/10 04/14/[address] [place] [address] [address] [place] [address] documented as of this encounter
--- OUTSIDE RECORDS SUMMARY | 2022-04-23 15:36 | XMS_ITS | Encounter Summary ---
:1970 Author Organization [facility] Address [address], [place] [address] Care Team Providers Name Role Phone Steve Alston MD Primary Care Provider Encounter Details Date Type Department Care Team Description 03/06/2010 PN Conversion Only [facility] [address] [place], [place] [address] Social History Tobacco Use Types Packs/Day Years Used Date Smoking Tobacco: Never Alcohol Use Standard Drinks/Week Comments Not Asked 0 (1 standard drink = 0.6 oz pure alcoho l) 1/mo Sex Assigned at Date Recorded Not on file documented as of this encounter Last Filed Vital Signs Vital Sign Reading Time Taken Comments Blood Pressure - - Pulse - - Temperature 36.7 ??C (98.1 ??F) 03/06/2010 9:02 AM CDT C: 36 .7 C Respiratory Rate - - Oxygen Saturation - - Inhaled Oxygen Concentration - - Weight - - Height - - Body Mass Index - - documented in this encounter Plan of Treatment Not on filedocumented as of this encounter Procedures Procedure Name Priority Date/Time Associated Diagnosis Comme nts MR KNEE RT WO IV Routine 03/06/2010 10:55 AM Resu lts for this CONT CDT procedure are i n the results section. documented in this encounter Results MR Knee Rt WO IV Cont (03/06/2010 10:55 AM CDT) Anatomical Region Laterality Modality Lower Extremity, Knee, Skeletal, Thigh, Leg Right Other Specimen (Source) Anatomical Location Collection Method / Collectio n Time Received Time / Laterality Volume Impressions 03/06/2010 10:55 AM CDT : 1. 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 2. Edema and small cystic change in the superior lateral portion of Hoffa's fat pad between the lateral gagnon llar facet and lateral femoral trochlea is suggestive of an imp ingement injury. 3. Findings suggestive of mild pes anser ine bursitis. Dictating ALDEN HAZEL Radiologist Narrative 03/06/2010 10:55 AM CDT TECHNIQUE: ??Routine MRI of the right knee was performed without contrast. COMPARISON: ??None. FINDINGS: MEDIAL COMPARTMENT: ??There are no focal cartilage defects. The medial meniscus is normal without evidence of t ear. LATERAL COMPARTMENT: ??There are no foca l cartilage defects. The lateral meniscus is normal without evide nce of tear. PATELLOFEMORAL JOINT: ??Thinning and fra stevan the articular cartilage in the inferior patellar apex and adjace nt medial and lateral patellar facet. ?? There is no significa nt joint effusion or popliteal cyst. No osteocartilaginous bodies are i dentified. LIGAMENTS AND TENDONS: ??The anterior an d posterior cruciate ligaments, medial collateral ligament, i liotibial band, fibular collateral ligament and biceps femoris t endons are intact. The popliteus muscle and tendon are normal. There is no evidence of injury to the posterolateral corner supp orting structures. The quadriceps and patellar tendons are norm al. Minimal edema near the pes anserine tendon insertion suggestive of mild pes anserine bursitis. ??Edema and small cystic diaz e in the superior lateral portion of Hoffa's fat pad between the l ateral patellar facet and lateral femoral trochlea is suggestive o f an impingement injury. MARROW AND SOFT TISSUES: ??There is no a bnormal marrow signal or evidence of soft tissue mass. Procedure Note Alden Chirinos MD - 01/19/2016For matting of this note might be different from the original. TECHNIQUE: Routine MRI of the right knee was performed without contrast. COMPARISON: None. FINDINGS: MEDIAL COMPARTMENT: There are no focal c artilage defects. The medial meniscus is normal without evidence of t ear. LATERAL COMPARTMENT: There are no focal cartilage defects. The lateral meniscus is normal without evide nce of tear. PATELLOFEMORAL JOINT: Thinning and frayi ng the articular cartilage in the inferior patellar apex and adjace nt medial and lateral patellar facet. There is no significant joint effusion or popliteal cyst. No osteocartilaginous bodies are i dentified. LIGAMENTS AND TENDONS: The anterior and posterior cruciate ligaments, medial collateral ligament, i liotibial band, fibular collateral ligament and biceps femoris t endons are intact. The popliteus muscle and tendon are normal. There is no evidence of injury to the posterolateral corner supp orting structures. The quadriceps and patellar tendons are norm al. Minimal edema near the pes anserine tendon insertion suggestive of mild pes anserine bursitis. Edema and small cystic change in the superior lateral portion of Hoffa's fat pad between the l ateral patellar facet and lateral femoral trochlea is suggestive o f an impingement injury. MARROW AND SOFT TISSUES: There is no abn ormal marrow signal or evidence of soft tissue mass. IMPRESSION : 1. 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 2. Edema and small cystic change in the superior lateral portion of Hoffa's fat pad between the lateral gagnon llar facet and lateral femoral trochlea is suggestive of an imp ingement injury. 3. Findings suggestive of mild pes anser ine bursitis. Dictating ALDEN HAZEL Radiologist Oni Huber MD RAD MRI documented in this encounter Visit Diagnoses Not on filedocumented in this encounter Care Teams Retail Associate Relationship Specialty Start Date End Date Steve Alston MD PCP - General 11/05/10 04/14/[address] [place] [address] [address] [place] [address] documented as of this encounter
--- OUTSIDE RECORDS SUMMARY | 2022-04-23 15:36 | XMS_ITS | Encounter Summary ---
:1970 Author Organization [facility] Address [address] [place] [address] Care Team Providers Name Role Phone Steve Alston MD Primary Care Provider Reason for Visit Reason Comments Other Encounter Details Date Type Department Care Team Description 02/21/2010 Telephone [facility] [place], Message Other [address] [place] [address] Social History Tobacco Use Types Packs/Day Years Used Date Smoking Tobacco: Never Alcohol Use Standard Drinks/Week Comments Not Asked 0 (1 standard drink = 0.6 oz pure alcoho l) 1/mo Sex Assigned at Date Recorded Not on file documented as of this encounter Progress Notes Center, Message - 02/21/2010 10:03 AM CDT Phone Note filed by Qwbcg at 11/24/10 8031 Author: Qwbcg Service: (none) Author Type: (none) Filed: 11/24/10 9433 Note Time: 02/21/10 1003 Status: Signed Boilerhouse Mechanic: Qwbcg (Resource) Please scheudle surgery for today. SORRY!! Post op 7-10 dys. Thanks! Created on 21Feb2010 10:03am by XOCHILT MONTANO On 21Feb2010 10:30am MACI WISEMAN wrote: It's actually Jose Rafael Booker having the surgery, not felipe. I partially made a slog for him but if he needs post op appts you will need to send the [facility] the information. if ?'s call me at [phone]. Acknowledged by XOCHILT MONTANO on 11:23am CIPAL ANDROID DEVELOPER documented in this encounter Plan of Treatment Not on filedocumented as of this encounter Visit Diagnoses Not on filedocumented in this encounter Care Teams Log Yard Manager Relationship Specialty Start Date End Date Steve Alston MD PCP - General 11/05/10 04/14/[address] [place] [address] [address] [address] documented as of this encounter
--- OUTSIDE RECORDS SUMMARY | 2022-04-23 15:36 | XMS_ITS | Encounter Summary ---
:1970 Author Organization [facility] Address [address] [place] [address] Care Team Providers Name Role Phone Britney Jarrett MD Primary Care Provider Encounter Details Date Type Department Care Team Description 02/07/2014 Imaging [facility] Pain in joint, hand [address] [place], [place] [address] Social History Tobacco Use Types [...] Priority Date/Time Associated Diagnosis Comme nts XR FINGER RT RING Routine 02/07/2014 1:40 PM Pain in joint, way nd Results for this 2+ VIEWS CDT procedure are i n the results section. documented in this encounter Results XR Finger Rt Ring (02/07/2014 1:40 PM CDT) Anatomical Region Laterality Modality Upper Extremity, Hand Other Specimen (Source) Anatomical Location Collection Method / Collectio n Time Received Time / Laterality Volume Narrative 02/09/2014 4:15 PM CDT Three views of the right ring finger. INDICATION: Pain. FINDINGS: No definitive fracture. Procedure Note Ovidio Mcdowell MD - 01/21/2016Formatt ing of this note might be different from the original. Three views of the right ring finger. INDICATION: Pain. FINDINGS: No definitive fracture. Ovidio Mcdowell MD RAD GD documented in this encounter Visit Diagnoses Diagnosis Pain in joint, hand documented in this encounter Care Teams Peoplesoft Hcm Consultant Relationship Specialty Start Date End Date Britney Jarrett MD PCP - General 04/15/13 04/03/[address]1999 [place] [address] documented as of this encounter
--- OUTSIDE RECORDS SUMMARY | 2022-04-23 15:36 | XMS_ITS | Encounter Summary ---
:1970 Author Organization [facility] Address [address] [address] Care Team Providers Name Role Phone Steve Alston MD Primary Care Provider Encounter Details Date Type Department Care Team Description 09/12/2009 Office Visit [facility] Jesus Patricio MD [address] [place], [place] [address] [place] [address] [phone] Social History Tobacco Use Types Packs/Day Years [...] - - Temperature 36.5 ??C (97.7 ??F) 09/12/2009 5:23 PM CONTRIBUTION SOLICITOR C: 36 .5 C Respiratory Rate - - Oxygen Saturation - - Inhaled Oxygen Concentration - - Weight - - Height - - Body Mass Index - - documented in this encounter Progress Notes Jesus Patricio MD - 09/12/2009 12:01 AM CST Progress Notes signed by Jesus Patricio MD at 09/14/09 0801 Author: Jesus Patricio MD Service: (none) Author Type: Physician Filed: 11/24/102125 Note Time: 09/12/092125 Status: Signed Nail Kegger: Jesus Patricio MD (Physician) NAME: RAHAT THOMASON VISIT: [id number] DICTATING CLINICIAN: JESUS PATRICIO MD JOB: [id number] LOC: 3711 CLINIC PROGRESS NOTE DATE OF VISIT: 09/12/2009 SUBJECTIVE: A 39-year-old female who presents for evaluation of left knee pain that is bothering her for quite some time. It just started to get worse over the last week. The patient denies any particular injury. She is quite active with exercise. She has been working with a link trainer operator. She complains of difficulty with squatting and going up and down stairs. Complains of pain under the kneecap. At rest it is 0/10. When she is going up and down stairs it is approximately 7/10. Occasionally does complain of the leg giving out on her. PAST MEDICAL HISTORY: Significant for spondylolisthesis for which she has had spinal fusion. She has had a herniated disk in her neck and also has carpal tunnel syndrome. 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 OBJECTIVE: T: 97.7. In general, she is in no acute distress. She walks with a normal gait. She does have increased pain with squatting. Examination of the left knee shows no significant effusion, no erythema or ecchymosis. She has full range of motion. She is tender over the medial and lateral facets. She does have a negative Stan's, varus and valgus stress, anterior and posterior drawer. Negative Sandi's testing. She has weak lower abs, weak hip abductors. Three views of the knee were ordered and interpreted by me. Indications: Left knee pain. Assessment: Negative. ASSESSMENT AND PLAN: Left knee patellofemoral syndrome with intermittent quadriceps inhibition. The patient will be placed into physical therapy for core strengthening and support around her knee. Suggest followup in 4 to 6 weeks if not improving. If not improved in that time I would consider imaging with an MRI. DOCUMENT: [id number] RIBUTION SOLICITOR documented in this encounter Plan of Treatment Not on filedocumented as of this encounter Procedures Procedure Name Priority Date/Time Associated Diagnosis Comme nts XR KNEE LT 3 VIEWS Routine 09/12/2009 5:43 PM Res ults for this CONTRIBUTION SOLICITOR procedure are i n the results section. documented in this encounter Results XR Knee Lt 3 Views (09/12/2009 5:43 PM CONTRIBUTION SOLICITOR) Anatomical Region Laterality Modality Lower Extremity, Knee Other Specimen (Source) Anatomical Location Collection Method / Collectio n Time Received Time / Laterality Volume Narrative 09/12/2009 5:43 PM CONTRIBUTION SOLICITOR Indications: ??Left knee pain. Assessment: ??Negative. Dictating JESUS SAHA MD Procedure Note Jesus Patricio MD - 01/19/2016Format ting of this note might be different from the original. Indications: Left knee pain. Assessment: Negative. Dictating JESUS SAHA MD Jesus Patricio MD RAD GD documented in this encounter Visit Diagnoses Not on filedocumented in this encounter Care Teams Grant Manager Relationship Specialty Start Date End Date Steve Alston MD PCP - General 11/05/10 04/14/[address] [place] [address] [facility] [place] [address] documented as of this encounter
--- OUTSIDE RECORDS SUMMARY | 2022-04-23 15:36 | XMS_ITS | Encounter Summary ---
:1970 Author Organization [employer] Address [address] [address] Care Team Providers Name Role Phone Britney Jrarett MD Primary Care Provider Reason for Visit Reason Comments Hand Therapy Encounter Details Date Type Department Care Team Description 02/10/2014 Initial Consult [facility] Jagruti Cooper, Medial epicondylitis [address] [facility] OTR/L of elbow (Primary Dx) Drive [address] [facility] [place] [address] [phone] Social History Tobacco Use Types Packs/Day Years Used Date Smoking Tobacco: Never Alcohol Use Standard Drinks/Week Comments Not Asked 0 (1 standard drink = 0.6 oz pure alcoho l) 1/mo Sex Assigned at Date Recorded Not on file documented as of this encounter Progress Notes Jagruti Cooper, OTR/L - 02/10/2014 11:31 AM CDT Hand Therapy Evaluation Date of : 1970 Referring Provider: Ovidio Mcdowell MD Diagnosis: Left medial epicondylitis. Orders: Evaluate and treat, splint, home exercise program including eccentric loading. Date of Onset: September 2013. Cause: Patient developed pain while working out with her water trainer using free weights. Hand Dominance: Right Past medical History/Precautions: Refer to electronic medical record for past medical history, medications, and drug allergies. Hx of L6-7 fusion and cervical C6-7 fusion. Current right medial epicondylosis as well but left side if worse. Right hand current MCP sprain. She is treating it with bipin strajunie now. Patient did stop weight lifting for 10 days when her elbow injury first happened but then returned to weight lifting. 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 Leisure/Sports: Weight lifts with a water trainer 4x/week, biking, roller blading, kettle pena class, cross fit. Functional Limitations: The patient reports pain and/or difficulty with gripping, carrying, lifting,weight lifting and ADLs that involve resistance such as vacuuming and grocery shopping. SUBJECTIVE: The patient arrives stating that her and her water trainer are working on strengthening opposite muscles but she still notices an increase in medial elbow pain with her work outs. I have a high pain tolerance so I can push through a lot. I have a lot more pain lifting with my palms up. OBJECTIVE: Pain: Patient rates resting pain 0/10. Patient rates pain with working out 4- 5/10. 8-9/10 pain with pull ups. Edema: No swelling observed at the medial elbow. Extrinsic flexibility: Wrist extensor: Right: NT, Left: 0-65 degrees wrist flexor: Right: NT, Left: 0-45 degrees++ AROM: The patient has full motion at the elbow and wrist. Wrist AROM Right Left Extension/Flexion 60/65 60/70 Supination/Pronation 90/75 90/75 Strength: Did not test right side due to a MCP sprain in her hand. Right Left Pain-free feed project engineer, elbow at 0 degrees extension NT 44 lbs Maximum feed project engineer, elbow at 90 degrees flexion NT 55 [...] during the day. She was able to feed project engineer 60# vs. 55# with the counter force strap. Patient will purchase the strap if she feels it will be helpful. Exercises: Issued handout, instructed in and performed forearm stretches (with forearm pronated), 3-4x/day, 3 repetitions of each exercise with 30 second holds. May progress to advanced flexor stretches as tolerated but advised to make sure they are painfree. Attempted eccentric strengthening with 1# weight which increased patient's pain so started with wrist flexor isometrics completing 10 reps with 10 second holds. Manual therapy: Performed instrument assisted soft tissue mobilization using Graston Technique instruments to myofascial restrictions of the flexor pronator wad especially near the origin, wrist extensors, triceps and biceps. Education: The patient was educated on the [...] Following today???s treatment session, the patient will: ??? demonstrate understanding of splint wear and care instructions. ??? demonstrate understanding of activity modification techniques. ??? demonstrate understanding of pain management techniques. ??? demonstrate understanding of home exercise program. STG: Patient will lift up to 5# grocery bag with minimal to no difficulty or pain in 6 weeks. LTG: Patient will perform electronic semiconductor processor and weight lift using free weights with [...] any questions or concerns. Next Treatment Session: Re-eval and progress HEP. Initiate modalities for additional pain relief, continue Graston. Check on advancing flexor stretches to supinated stretches. Visit frequency/duration: Patient will be seen 1x every other week for 4 visits. Treatment Plan: AROM, AAROM, PROM, strengthening, modalities, manual therapy, patient education and training. Total Treatment Time: 60 minutes Therapist Signature: Jagruti Cooper, OTR/L, T #[id number] Visit #08/08 Charges: Occupational Therapy Evaluation (CPT 57986) Therapeutic Exercise (CPT 65272) 15 minutes Manual Therapy, 1 or more regions (CPT 32374) 8 minutes documented in this encounter Plan of Treatment Not on filedocumented as of this encounter Visit Diagnoses Diagnosis Medial epicondylitis of elbow - Primary documented in this encounter Care Teams Well Logging Captain Mud Analysis Relationship Specialty Start Date End Date Britney Jarrett MD PCP - General 04/15/13 04/03/161999 [place] [address] documented as of this encounter
--- OUTSIDE RECORDS SUMMARY | 2022-04-23 15:37 | XMS_ITS | Encounter Summary ---
:1970 [facility] Address [address] [address] Care Team Providers Name Role Phone Madisyn Smalls APRN, CNP Primary Care Provider [phone] Encounter Details Date Type Department Care Team Description 06/14/2003 Office Visit [facility] Ximena Kelly MD VACCINE FOR INFLUENZA Department [address] [place] [id number] [place] [address] [phone] Social History Tobacco Use Types Packs/Day Years Used Date Smoking Tobacco: Never Assessed Sex Assigned at Date Recorded Not on file documented as of this encounter Progress Notes Ruddy Kelly - 06/14/2003 12:00 AM DAIRY TESTER Y TESTER documented in this encounter Plan of Treatment Not on filedocumented as of this encounter Visit Diagnoses Diagnosis VACCINE FOR INFLUENZA documented in this encounter Care Teams Neurosurgery Spine Physician Relationship Specialty Start Date End Date Madisyn Smalls APRN, CNP PCP - General 03/03/02 11/04/10 [address] [place] [address] documented as of this encounter
--- OUTSIDE RECORDS SUMMARY | 2022-04-23 15:37 | XMS_ITS | Encounter Summary ---
:1970 Author Organization [facility] Address [address] [place] [address] Care Team Providers Name Role Phone Madisyn Smalls APRN, CNP Primary Care Provider [phone] Encounter Details Date Type Department Care Team Description 03/08/2004 Correspondence [facility]ESH [facility]iner [facility] MD Hebert SURGICAL/LASER [address]. [address] PROCEDURE [place], [place] [address] [place], [place] [phone] Social History Tobacco Use Types Packs/Day Years Used Date Smoking Tobacco: Never Assessed Sex Assigned at Date Recorded Not on file documented as of this encounter Progress Notes Hebert Joiner - 03/08/2004 12:00 AM CDT documented in this encounter Plan of Treatment Not on filedocumented as of this encounter Visit Diagnoses Not on filedocumented in this encounter Care Teams Tank Truck Milk Receiver Relationship Specialty Start Date End Date Madisyn Smalls APRN, CNP PCP - General 03/03/02 11/04/10 [address] [place] [address] documented as of this encounter
--- OUTSIDE RECORDS SUMMARY | 2022-04-23 15:37 | XMS_ITS | Encounter Summary ---
:1970 Author Organization [facility] Address [address] [place] [address] Care Team Providers Name Role Phone Madisyn Smalls APRN, CNP Primary Care Provider [phone] Reason for Visit Reason Comments LASER TREATMENT Encounter Details Date Type Department Care Team Description 12/04/2006 Office Visit [facility], Other Plastic Surgery for Un acceptable Cosmetic Appearance; [address] [facility]. 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 [address] [facility] [place] [address] [place], [place] [phone] Social History Tobacco Use Types Packs/Day Years Used Date Smoking Tobacco: Never Alcohol Use Standard Drinks/Week Comments Not Asked 0 (1 standard drink = 0.6 oz pure alcoho l) 1/mo Sex Assigned at Date Recorded Not on file documented as of this encounter Progress Notes Hebert Joiner - 12/04/2006 12:00 AM CDT Patient comes in today for a fifth laser destruction on her right lateral distal ankle tattoo. This is the second time we are using the Mousie Nd: YAG laser. There has been some mild scarring in the center where the red heart was as noted in the past and some minimal scarring around the blue-back curvilinear section, however, that is subtle to minimal at worst. She is fine with everything and happy things are disappearing. On her last treatment that we did (first time using the Mousie Nd: YAG laser), she really did not get much of a response at all. After review with her knowing there will be another charge of $97 (note that since we quoted her this lima last time and did not tell her there was a change coming, I am going to honor that. Next time she understands she will be paying $140 to [employer] - this is all in addition to the cicayda fee, which is independent), procedure was done. PROCEDURE: With all parties present, using appropriate eye protection and using a Gigalocal Q-switched Nd: YAG laser at 1064 wavelength, first at 900 mJ and then at 1000 mJ with a 2 mm spot size, the blue-back curvilinear sections of the tattoo were subjected to destruction (this is after 1% lidocaine with epinephrine injected locally for anesthesia). Patient tolerated well. Bandage placed. Aftercare instructions reviewed. She will return to clinic in a few months for followup depending upon how she is doing. 12/04/2006 12:40 P cc: Hebert Joiner - 12/04/2006 12:00 AM CDT documented in this encounter Plan of Treatment Not on filedocumented as of this encounter Visit Diagnoses Diagnosis Other plastic surgery for unacceptable c osmetic appearance Other dyschromia documented in this encounter Care Teams Product Evangelist Relationship Specialty Start Date End Date Madisyn Smalls APRN, CROZE CUTTER HELPER PCP - General 03/03/02 11/04/10 [address] [place] [address] documented as of this encounter
--- OUTSIDE RECORDS SUMMARY | 2022-04-23 15:37 | XMS_ITS | Encounter Summary ---
:1970 Author Organization [facility] Address [address] [place] [address] Care Team Providers Name Role Phone Madisyn Smalls APRN, AGUSTIN Primary Care Provider [phone] Reason for Visit Reason Comments LASER TREATMENT tattoo Encounter Details Date Type Department Care Team Description 02/06/2006 Office Visit [facility], PLASTIC SURGERY NEC; [address] [facility]. Lisa Ambrosio MD DYSCHROMIA OTHER; [place], [place] [address] DERMATITIS NOS [phone] [place] [address] Social History Tobacco Use Types Packs/Day Years Used Date Smoking Tobacco: Never Alcohol Use Standard Drinks/Week Comments Not Asked 0 (1 standard drink = 0.6 oz pure alcoho l) 1/mo Sex Assigned at Date Recorded Not on file documented as of this encounter Consult Notes Hebert Joiner - 02/06/2006 12:00 AM CDTSUBJECTIVE: The patient comes in today for two problems. One is a third laser tattoo destruction on her right ankle. She said she has had substantial clearing since her last (second) treatment on March 08, 2004. She understands there could be scarring, inefficacy, discomfort. She did have some itching in the red heart and so that was not treated last time. That itching is long since gone. She understands there will be a charge of destruction of one lesion for katena of $97 and then $180 fee for [employer], all for each treatment. In addition, on her left cheek for about a year now she has had two little spots with central decreased pigmentation. There is no scaling or itch. There is some peripheral darkening with sun, otherwise, no symptoms. No other skin problems. OBJECTIVE: Patient no acute distress, mildly obese, otherwise, well nourished, well developed with appropriate affect. On the left cheek there are two approximately centimeter sized what appear to be maculopapules with a central depression and mild hypopigmentation and a peripheral hyperpigmentation. No scale appreciated. The tattoo on her right ankle appears to be more broken up than last time. The blue black especially is substantially broken up and fell cutter but even the red heart is broken up more too. ASSESSMENT: Tattoo, improving, status post two treatments of Nd YAG laser. Macules on left cheek. PLAN: Given the apparent clinically mild nature of the left cheek lesion, further evaluation was not done today and she opted not to have a biopsy done but will have her come back in a month for reevaluation of that and possible biopsy. In the meantime, with her informed consent, procedure was done. PROCEDURE: With all parties present using appropriate eye protection and after 1% Xylocaine with epinephrine locally to the tattoo on the right lateral ankle, a Nd YAG 5 laser was used to destroy the blue black and red pigment. A 2 millimeter spot size was used at 12.5 jewels/cm2 in overlapping fashion over the blue black scrolled imprint with a 1032 nanometer setting. The dials were then changed to 532 nanometers and the red heart was treated. The patient tolerated well. Whitish crusting appeared as expected. Dressing applied. After care instructions reviewed and she will return in a month for either a second treatment and reevaluation of the left cheek or just the latter. 02/06/2006 12:55 P cc: documented in this encounter Plan of Treatment Not on filedocumented as of this encounter Visit Diagnoses Diagnosis Other plastic surgery for unacceptable c osmetic appearance Other dyschromia Contact dermatitis and other eczema, due to unspecified cause documented in this encounter Care Teams Correctional Nurse Relationship Specialty Start Date End Date Madisyn Smalls, DONNIE, [facility] PCP - General 03/03/02 11/04/10 [address] [place] [address] documented as of this encounter
--- OUTSIDE RECORDS SUMMARY | 2022-04-23 15:37 | XMS_ITS | Encounter Summary ---
:1970 Author Organization [facility] Address [address], [place] [address] Care Team Providers Name Role Phone Madisyn Smalls APRN, AGUSTIN Primary Care Provider [phone] Encounter Details Date Type Department Care Team Description 01/30/2004 Telephone [facility] Joiner [facility] [address] [facility] [place], [place] [address] [place] [address] [phone] (Wo rk) Social History Tobacco Use Types Packs/Day Years Used Date Smoking Tobacco: Never Assessed Sex Assigned at Date Recorded Not on file documented as of this encounter Nursing Notes Hebert Joiner - 01/30/2004 12:00 AM CDTPatient called earlier about her tattoo. It just does not seem to be improving in terms of the black curvilinear design. The red of the heart seems a little bit semi conductor assembler. It did blister a bit and is now healing. Still a little tender, but it is doing okay. However, according to her, no reaction really occurred over the blue-black zone. Because of that, I told her that if she wanted to keep going, we could increase the energy delivered on the blue-black zone and possibly decrease the energy in the red zone a bit and I would hold my fee (although not the laser fee) until a month or so after the next treatment so we can see if it improves and if not I will just give her a postop visit at no charge. She was happy with that and she will return in March for a second treatment. P cc: documented in this encounter Plan of Treatment Not on filedocumented as of this encounter Visit Diagnoses Not on filedocumented in this encounter Care Teams Bobbin Hauler Relationship Specialty Start Date End Date Madisyn Smalls APRN, DRYWALL TAPER HELPER PCP - General 03/03/02 11/04/10 [address] [place] [address] documented as of this encounter
--- OUTSIDE RECORDS SUMMARY | 2022-04-23 15:37 | XMS_ITS | Encounter Summary ---
:1970 [facility] Address [address] [place] [address] Care Team Providers Name Role Phone Madisyn Smalls APRN, CNP Primary Care Provider [phone] Encounter Details Date Type Department Care Team Description 12/08/2003 Correspondence [facility] MAHESH Joiner STATEMENT OF [address] [facility] Hebert NON-COVERAGE/BENEFICI [address]. [address] AMELIE AGREEMENT [place], [place] [address] [place], [place] [phone] Social History Tobacco Use Types Packs/Day Years Used Date Smoking Tobacco: Never Assessed Sex Assigned at Date Recorded Not on file documented as of this encounter Progress Notes Hebert Joiner - 12/08/2003 12:00 AM CDT documented in this encounter Plan of Treatment Not on filedocumented as of this encounter Visit Diagnoses Not on filedocumented in this encounter Care Teams Steaming Cabinet Tender Relationship Specialty Start Date End Date Madisyn Smalls APRN, CNP PCP - General 03/03/02 11/04/10 [address] [place] [address] documented as of this encounter
--- OUTSIDE RECORDS SUMMARY | 2022-04-23 15:37 | XMS_ITS | Encounter Summary ---
:1970 [facility] Address [address] [place] [address] Care Team Providers Name Role Phone Madisyn Smalls APRN, CNP Primary Care Provider [phone] Encounter Details Date Type Department Care Team Description 02/06/2006 Correspondence [facility], STATEMENT OF [address] [facility]. MD Hebert NON-COVERAGE [address]. [address] BENEFICIARY AGREEMENT [place], [place] [address] [place], [place] [phone] [address] Social History Tobacco Use Types Packs/Day Years Used Date Smoking Tobacco: Never Alcohol Use Standard Drinks/Week Comments Not Asked 0 (1 standard drink = 0.6 oz pure alcoho l) 1/mo Sex Assigned at Date Recorded Not on file documented as of this encounter Progress Notes Hebert Joiner - 02/06/2006 12:00 AM CDT documented in this encounter Plan of Treatment Not on filedocumented as of this encounter Visit Diagnoses Not on filedocumented in this encounter Care Teams Electron Tube Assembler Relationship Specialty Start Date End Date Madisyn Smalls APRN, CNP PCP - General 03/03/02 11/04/10 [address] [place] [address] documented as of this encounter
--- OUTSIDE RECORDS SUMMARY | 2022-04-23 15:37 | XMS_ITS | Encounter Summary ---
:1970 Author Organization [facility] Address [address], [place] [address] Care Team Providers Name Role Phone Madisyn Smalls APRN, CNP Primary Care Provider [phone] Reason for Visit Reason Comments Follow-up, NOS sore throat Encounter Details Date Type Department Care Team Description 03/07/2005 Office Visit [facility] Jose E Angeles TE PHARYNGITIS(SORE Practice JMD THROAT) (Primary Dx) [address] [place] [address] [facility] ANE [address] [place], [place] [phone] [address] Social History Tobacco Use Types Packs/Day Years Used Date Smoking Tobacco: Never Alcohol Use Standard Drinks/Week Comments Not Asked 0 (1 standard drink = 0.6 oz pure alcoho l) Sex Assigned at Date Recorded Not on file documented as of this encounter Last Filed Vital Signs Vital Sign Reading Time Taken Comments Blood Pressure 100/56 03/07/2005 3:59 PM CDT Pulse 80 03/07/2005 3:59 PM CDT Temperature 37.4 ??C (99.4 ??F) 03/07/2005 3:59 PM CDT Respiratory Rate 16 03/07/2005 3:59 PM CDT Oxygen Saturation - - Inhaled Oxygen Concentration - - Weight 62 kg (136 lb 9.6 oz) 03/07/2005 3:59 PM CDT Height - - Body Mass Index 27.13 04/02/2004 1:00 PM CDT documented in this encounter Progress Notes 03/07/2005 3:40 PM CDT 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 It especially bothers at night. Sudafed and gargles offer slight help. Objective: General appearance: well developed, well nourished and in no acute distress HEENT: Eyes: no lesions of lids, mattering or redness Head: normocephalic Mouth and throat: without erythema or lesions of the mucosa Nose: without septal or mucosal abnormalities Ears: external canals and TMs free of lesions or abnormalities Lungs: clear to auscultation, no wheezes or rales. Rapid strep is negative. Assessment: viral pharyngitis. PLAN: Symptomatic treatment. Vicodin. Recheck depending on clinical course. Vipul Angeles MD Department of Family Practice documented in this encounter Plan of Treatment Not on filedocumented as of this encounter Procedures Procedure Name Priority Date/Time Associated Diagnosis Comme nts STREP GRP A, RAPID Waiting 03/07/2005 4:05 PM Acute Res ults for this SCREEN CDT Pharyngitis(Sore procedure a re in Throat) the results section. documented in this encounter Results STREP GRP A, RAPID SCREEN (03/07/2005 4:05 PM CDT) [facility] [employer] [facility] Method Time Signature Patient Home None [facility] Phone # Patient Work None [facility] Phone # Grp A Rapid Negative NEG [facility] Screen Grp A Culture Negative NEG [facility] Final Specimen Anatomical Collection Method Collection Time Receive d Time (Source) Location / / Volume Laterality 03/07/2005 4:05 PM 5 4:06 CDT PM CDT Jose E Angeles MD LAB_1 Performing Organization Address City/State/ZIP Code Phon e Number [facility] [phone] [facility] [address] [phone] documented in this encounter Visit Diagnoses Diagnosis Acute pharyngitis - Primary documented in this encounter Care Teams Quality Process Auditor Relationship Specialty Start Date End Date Madisyn Smalls, MUD TANK OPERATOR, VALUE ANALYSIS COORDINATOR PCP - General 03/03/02 11/04/10 [address] [place] [address] documented as of this encounter
--- OUTSIDE RECORDS SUMMARY | 2022-04-23 15:37 | XMS_ITS | Encounter Summary ---
:1970 Author Organization [facility] Address [address] [place] [address] Care Team Providers Name Role Phone Madisyn Smalls APRN, CNP Primary Care Provider [phone] Encounter Details Date Type Department Care Team Description 02/02/2007 Orders Only [facility] or Screening for Lipoid [id number] [facility] Disorders [place], [place] [address] Social History Tobacco Use Types Packs/Day Years Used Date Smoking Tobacco: Never Alcohol Use Standard Drinks/Week Comments Not Asked 0 (1 standard drink = 0.6 oz pure alcoho l) 1/mo Sex Assigned at Date Recorded Not on file documented as of this encounter Plan of Treatment Not on filedocumented as of this encounter Procedures Procedure Name Priority Date/Time Associated Diagnosis Comme nts LIPID PANEL, FAST > Routine 02/02/2007 8:24 AM Screening for L ipoid Results for this 12 HOUR CDT Disorders procedure are i n the results section. documented in this encounter Results CHOLESTEROL LIPID PANEL FAST >12HR (02/02/2007 8:24 AM CDT) P athologist Signature Cholesterol 154 <200 mg/dl [facility] Triglyceride 70 <200 mg/dl [facility] HDL 62 >35 mg/dl [facility] LDL, Calc. 78 mg/dl [facility] Hours Fasting 12 hours [facility] Specimen Anatomical Collection Method Collection Time Receive d Time (Source) Location / / Volume Laterality 02/02/2007 8:24 AM 7 8:25 CDT AM CDT Madisyn Smalls APRN, CNP LAB_1 Performing Organization Address City/State/ZIP Code Phon e Number [facility] [phone] [facility] [address] [address] documented in this encounter Visit Diagnoses Diagnosis Screening for lipoid disorders documented in this encounter Care Teams Director Of Diversity And Inclusion Relationship Specialty Start Date End Date Madisyn Smalls APRN, VENEER STACKER PCP - General 03/03/02 11/04/10 [address] [place], [place] [id number] documented as of this encounter
--- OUTSIDE RECORDS SUMMARY | 2022-04-23 15:37 | XMS_ITS | Encounter Summary ---
:1970 Author Organization [facility] Address [address] [place] [address] Care Team Providers Name Role Phone Madisyn Smalls APRN, CNP Primary Care Provider [phone] Reason for Visit Reason Onset Date Comments SINUS PAIN/PRESSURE 12/01/2006 Encounter Details Date Type Department Care Team Description 12/01/2006 Telephone [facility] Madisyn Smalls S INUS PAIN/PRESSURE Practice [facility] [address] [facility] [id number] [place] [address] [place], [place] [phone] (Wo rk) Social History Tobacco Use Types Packs/Day Years Used Date Smoking Tobacco: Never Alcohol Use Standard Drinks/Week Comments Not Asked 0 (1 standard drink = 0.6 oz pure alcoho l) 1/mo Sex Assigned at Date Recorded Not on file documented as of this encounter Nursing Notes Madisyn Smalls - 12/01/2006 4:48 PM CDT Unable to reach Josie-washington left that I have sent a prescription through to her pharmacy of choiceand she should continue with home treatments and follow up as needed, Madisyn Smalls NP Megan Lovett - 12/01/2006 4:45 PM CDT LMTCB Mindy Stoddard - 12/01/2006 3:45 PM CDT For 6 days now she has had congestion,pain and pressure above eyes, green drainage. She had sinus infection in August and was put on amoxicillin and that did help. documented in this encounter Plan of Treatment Not on filedocumented as of this encounter Visit Diagnoses Diagnosis Sinusitis - Primary Unspecified sinusitis (chronic) documented in this encounter Care Teams Criminal Intelligence Analyst Relationship Specialty Start Date End Date Madisyn Smalls APRN, COMPENSATION AGENT PCP - General 03/03/02 11/04/10 [address] [place] [address] documented as of this encounter
--- OUTSIDE RECORDS SUMMARY | 2022-04-23 15:37 | XMS_ITS | Encounter Summary ---
:1970 Author Organization [facility] Address [address] [address] Care Team Providers Name Role Phone Madisyn Smalls APRN, CNP Primary Care Provider [phone] Reason for Visit Reason Comments Irregular menstrual periods Encounter Details Date Type Department Care Team Description 12/12/2005 Office Visit [facility] Madisyn Smalls M ENSTRUAL DISORDER NOS (Primary Dx); Practice [facility] SCREEN DI[facility]ETES [facility] [address] [facility] [address] [place] [address] [phone] (Wo rk) Social History Tobacco Use Types Packs/Day Years Used Date Smoking Tobacco: Never Alcohol Use Standard Drinks/Week Comments Not Asked 0 (1 standard drink = 0.6 oz pure alcoho l) 1/mo Sex Assigned at Date Recorded Not on file documented as of this encounter Last Filed Vital Signs Vital Sign Reading Time Taken Comments Blood Pressure 110/70 12/12/2005 3:40 PM CDT Pulse 70 12/12/2005 3:40 PM CDT Temperature 36.7 ??C (98 ??F) 12/12/2005 3:40 PM CDT Respiratory Rate 12 12/12/2005 3:40 PM CDT Oxygen Saturation - - Inhaled Oxygen Concentration - - Weight 61.5 kg (135 lb 8 oz) 12/12/2005 3:40 PM CDT Height - - Body Mass Index 26.68 04/05/2005 10:13 AM CDT documented in this encounter Patient Instructions Patient Qzgrsrbgzwkh69/11/2006 3:40 PM CDT Stop by the lab today-I will mail your results Start your oral contraceptive pills and take them for the next 3-4 mos-Call or return to clinic prnif these symptoms worsen, fail to improve as anticipated, or if new symptoms develop. 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 This past month there were only 2 weeks between her periods. No intermenstrual bleeding, no post-coital bleeding, no dyspareunia. No symptoms of hypoor hyperthyroidism: no decreased or increased weight, no feeling cold/chilly or excessively warm, nodiarrhea or constipation, no undue sweatiness, anxiety or palpitations. No hot flashes, flushes or sweats. Her has had a vasectomy. Last pap and pelvic 04/2004. She had problems with irregular menses in 2000 and we put her on Alesse for several months and they returned to normal. No absolute contraindications to oral contraceptive pill use. No changes big changes in diet, exercise, weight or stress. OBJECTIVE: BP 110/70 Pulse 70 Temp (Src) 98 (Oral) Resp 12 Wt 135 lbs 8.0 oz (61.5kg) LMP 12/05/2005 She appears well, in no apparent distress. Alert and oriented times three, pleasant and cooperative. Vital signs are as noted by the nurse. Thyroid: no enlargement, tenderness, or palpable mass. ASSESSMENT: Irregular menses PLAN: See After Visit Summary, patient instructions and orders. Madisyn Smalls NP Total time of visit/time spent in counseling and education TT15/CT10. documented in this encounter Plan of Treatment Not on filedocumented as of this encounter Procedures Procedure Name Priority Date/Time Associated Diagnosis Comme nts TSH, SENSITIVE Routine 12/12/2005 4:07 PM Menstrual Disorder R esults for this CDT Nos procedure are i n the results section. COMPLETE BLOOD Routine 12/12/2005 4:07 PM Menstrual Disorder R esults for this COUNT-NO DIFF CDT Nos procedure are in the results section. GLUCOSE Routine 12/12/2005 4:07 PM Screen Diabetes Result s for this CDT Mellitus procedure are i n the results section. documented in this encounter Results GLUCOSE - RANDOM < 8HR FASTING (V77.1) (12/12/2005 4:07 PM CDT) athologist Signature Glucose 78 65 - 115 [facility] mg/dl Hours Fasting 4 hours [facility] Specimen Anatomical Collection Method Collection Time Receive d Time (Source) Location / / Volume Laterality 12/12/2005 4:07 PM 6 4:08 CDT PM CDT Madisyn Smalls APRN, CNP LAB_1 Performing Organization Address [facility] Phon e Number Captain Wise [phone] [address] TSH, SENSITIVE (12/12/2005 4:07 PM CDT) athologist Signature TSH, Sensitive 1.27 0.3 - 5.0 [facility] uIU/ml Specimen Anatomical Collection Method Collection Time Receive d Time (Source) Location / / Volume Laterality 12/12/2005 4:07 PM 6 4:08 CDT PM CDT Madisyn Smalls APRN, CNP LAB_1 Performing Organization Address [facility] Phon e Number Captain Wise [phone] [address] HEMOGRAM/PLTS (12/12/2005 4:07 PM CDT) athologist Signature WBC 6.7 4.0 - 11.0 [facility] k/ul RBC 4.63 4.0 - 5.2 [facility] M/ul Hemoglobin 13.6 12.0 - 16.0 [facility] g/dl HCT 39.4 36.0 - 46.0 [facility] % MCV 85.1 80 - 100 fl [facility] MCH 29.4 26 - 34 pg [facility] MCHC 34.5 32 - 36 % [facility] RDW 13.0 11.5 - 14.5 [facility] % Platelets 300 150 - 450 [facility] k/ul Specimen Anatomical Collection Method Collection Time Receive d Time (Source) Location / / Volume Laterality 12/12/2005 4:07 PM 4:08 CDT PM CDT Madisyn Smalls APRN, CNP LAB_1 Performing Organization Address City/State/ZIP Code Phon e Number [facility] [phone] [address] documented in this encounter Visit Diagnoses Diagnosis Unspecified disorder of menstruation and other abnormal bleeding from female genital tract - Primary Screening for diabetes mellitus documented in this encounter Care Teams Study Manager Relationship Specialty Start Date End Date Madisyn Smalls APRN, CNP PCP - General 03/03/02 11/04/10 [address] [place] [address] documented as of this encounter
--- OUTSIDE RECORDS SUMMARY | 2022-04-23 15:37 | XMS_ITS | Encounter Summary ---
:1970 Author Organization [facility] Address [address] [place] [address] Care Team Providers Name Role Phone Madisyn Smalls APRN, CNP Primary Care Provider [phone] Reason for Visit Reason Onset Date Comments QUESTIONS, GENERAL 09/15/2006 Encounter Details Date Type Department Care Team Description 09/15/2006 Telephone [facility] Madisyn Smalls, Patricia UESTEDY, chicken tender [facility] [address] [address] [place] [address] [phone] (Wo rk) Social History Tobacco Use Types Packs/Day Years Used Date Smoking Tobacco: Never Alcohol Use Standard Drinks/Week Comments Not Asked 0 (1 standard drink = 0.6 oz pure alcoho l) 1/mo Sex Assigned at Date Recorded Not on file documented as of this encounter Nursing Notes Mónica Neff - 09/15/2006 9:58 AM CST Pt was offered appt 1st avail on 09-23 at 8;30 . Having to chk Her schedule [facility] [employer] Sy Moncada - 09/15/2006 9:31 AM CST Patient would like to speak to her either provider or nurse. Name of patient's provider: Nataly Smalls Summarize the patient's question or concern: pt would like an appt on nurse schedule for flu shot on09/22/06 @ 9:15am with daughter, schedule was full. Sy Moncada [employer] documented in this encounter Plan of Treatment Not on filedocumented as of this encounter Visit Diagnoses Not on filedocumented in this encounter Care Teams Ship Rigger Relationship Specialty Start Date End Date Madisyn Smalls APRN, WATER PUMP OPERATOR PCP - General 03/03/02 11/04/10 [address] [place] [address] documented as of this encounter
--- OUTSIDE RECORDS SUMMARY | 2022-04-23 15:37 | XMS_ITS | Encounter Summary ---
:1970 Author Organization [facility] Address [address] [place] [address] Care Team Providers Name Role Phone Madisyn Smalls APRN, AGUSTIN Primary Care Provider [phone] Encounter Details Date Type Department Care Team Description 03/03/2003 Office Visit [facility], BONE/SKIN NEOPLASM NOS; [address] Lisa Ambrosio MD BENIGN NEOPLASM SKIN NEC; [place], [place] [address] DYSCHROMIA OTHER; [phone] [place], [place] BENIGN SARAH SK IN LEG [id number] Social History Tobacco Use Types Packs/Day Years Used Date Smoking Tobacco: Never Assessed Sex Assigned at Date Recorded Not on file documented as of this encounter Progress Notes 03/03/2003 10:15 AM CDT Josie Booker is here today for several lesions and ?'s re tattoo. Primary care provider is STORM Noble LPN, 03/03/2003, 10:24 AM Hebert Joiner - 03/03/2003 12:00 AM CDTSUBJECTIVE: Patient comes in today for several problems. She has a lesion on her left leg that she hits with a razor. She has had it for some time. It is not changing. In addition, on her right eyebrow zone, for years now and to the point where she can never remember not having it, she has had a bump, possibly enlarging. Came on a little more when she was a teenager and has not been treated thus far. She has on her right upper breast a brown spot that has been there that she is concerned about. It is not clear if it is changing, might be a little bit tender. Also a newer mole on her mid lower back that she would like me to look at. Finally, she has a tattoo on her right lateral ankle that she would like to discuss removing. No other skin problems today. OBJECTIVE: Patient in no acute distress, well-nourished, well-developed with appropriate affect. On her left lateral distal leg, there is a typical targetoid 7 mm brown skin-colored dermoepidermal papule, with dimple sign positive. On her right medial eyebrow zone is approximately a 6 mm mamillated surfaced irregular papule. On her right upper breast, there is a 5-6 mm siu-red irregular maculopapule. On her mid low back is a 5 mm irregular maculopapule within a scar status post back surgery. On her right lateral distal ankle is a 10 x 30 mm tattoo. In the center, there is a 1.5 cm red heart with an outline of blue-black and on either side there is a curvilinear pattern in blue-black. This was placed about five years ago she said and she does not mind the heart but she does not like the rest of it. 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 No other skin problems. ASSESSMENT: 1. 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 2. 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 3. Atypical mole on her right upper breast. 4. Atypical mole on her mid lower back. 5. Professional blue, black and red tattoo. PLAN: Discussion with patient concerning diagnosis, treatment options and complications. At this point, we held off on shaving the dermatofibroma but will consider that when she returns to clinic. A shave biopsy was done to A - mid low back, a 2 mm punch biopsy followed by 6-0 nylon x1 was done to B - right medial eyebrow zone and a shave biopsy was done to C - right upper breast. She understands there will be scars where these surgeries were done. She will return in about a week to have the suture removed and do the shave excision of the dermatofibroma knowing it could recur and there will be a scar there. Finally, reviewed laser removal of the tattoo. I told her we would charge her for two lesions which would about $110 but in addition, there would be about $180 fee for the laser. She was more interested in getting the blue/black done so we focused on that. I told her it would take a number of sessions and that there was no guarantee that it would be all gone, that the treatment could scar although unlikely, that there could be residual. She will let us know about that. 12:53 P cc: documented in this encounter Plan of Treatment Not on filedocumented as of this encounter Visit Diagnoses Diagnosis Neoplasm of unspecified nature of bone, soft tissue, and skin (HRC) Neoplasm of unspecified nature of bone, soft tissue, and skin Benign neoplasm of other specified sites of skin Other dyschromia Benign neoplasm of skin of lower limb, i ncluding hip documented in this encounter Care Teams Mechanic Chief Relationship Specialty Start Date End Date Madisyn Smalls, ELECTRONIC SCALE TESTER, PRESSER AND SHAPER KNITTED GOODS PCP - General 03/03/02 11/04/10 [address] [place] [address] documented as of this encounter
--- OUTSIDE RECORDS SUMMARY | 2022-04-23 15:37 | XMS_ITS | Encounter Summary ---
:1970 Author Organization [facility] Address [address] [place] [address] Care Team Providers Name Role Phone Madisyn Smalls APRN, CNP Primary Care Provider [phone] Reason for Visit Reason Onset Date Comments INFECTION, SINUS 08/08/2006 Encounter Details Date Type Department Care Team Description 08/08/2006 Telephone [facility] Madisyn Smalls, I NFECTION, SINUS Practice [facility] [address] [address] [place] [address] [phone] (Wo rk) Social History Tobacco Use Types Packs/Day Years Used Date Smoking Tobacco: Never Alcohol Use Standard Drinks/Week Comments Not Asked 0 (1 standard drink = 0.6 oz pure alcoho l) 1/mo Sex Assigned at Date Recorded Not on file documented as of this encounter Nursing Notes Megan Lovett - 08/08/2006 1:24 PM CST The patient indicates understanding of these issues and agrees with the plan. D GOODS STOCK CLERK Madisyn Smalls - 08/08/2006 12:33 PM CST Please call patient and let her know I have sent a prescription for Amoxicillin to her pharmacy. Please review home care and Call or return to clinic prn if these symptoms worsen, fail to improve as anticipated, or if new symptoms develop. D GOODS STOCK CLERK Megan Naik - 08/08/2006 12:04 PM CST Triage Reference: SINUS CONGESTION AND PAIN - ADULT CNG (c) 2004 CONCERN: has had a sinus infection before, states it feels the same. Head congestion is not relievedwith sudafed. States she gets a back ache whenever she has a sinus infection and she has that now too. Using advil and sudafed prn. Denies cough, sore throat or fever. STAT SYMPTOMS:. Very severe facial pain? No Visual Disturbance?No Periorbital swelling or erythema? No Facial swelling or erythema? No Fever > 102 with above symptoms? No ASSESSMENT: Complications: none VURI Symptoms : states she has post nasal drip running down the back of her throat during the night causing her to wake up with a sore throat, It is not sore now. Once she blows her nose first thing inthe morning, it stays congested the rest of the day. States her nasal drainage is greenish. The headpressure is the worst symptom. Denies cough or ear pain. Length of URI symptoms: less than 7 days Sinus Symptoms : colored nasal drainage, poor response to decongestants and headache mostly above the eyes Complicating Symptoms: none Smoker? No Smoking enviroment? No TRIAGE: Does Patient have any medication allergies?No Voice sounds mildly nasal. PLAN: To Provider for recommendation and call her back D GOODS STOCK CLERK Mindy Stoddard - 08/08/2006 11:41 AM CST Friday she started having symptoms of sinus infection. Has green drainage,sinus pressure,headache. Has taken OTC advil and sudafed and this is not very well. [facility]. D GOODS STOCK CLERK documented in this encounter Plan of Treatment Not on filedocumented as of this encounter Visit Diagnoses Diagnosis Sinusitis - Primary Unspecified sinusitis (chronic) documented in this encounter Care Teams Education General Manager Relationship Specialty Start Date End Date Madisyn Smalls, DIRECTOR OF RELIGIOUS LIFE, RESTAURANT CULINARY MANAGER PCP - General 03/03/02 11/04/10 [address] [place] [id number] documented as of this encounter
--- OUTSIDE RECORDS SUMMARY | 2022-04-23 15:37 | XMS_ITS | Encounter Summary ---
:1970 Author Organization [facility] Address [address] [place] [address] Care Team Providers Name Role Phone Madisyn Smalls APRN, CNP Primary Care Provider [phone] Reason for Visit Reason Comments ROUTINE HEALTH MAINTENANCE Encounter Details Date Type Department Care Team Description 04/05/2005 Office Visit [facility] Madisyn Smalls P REVENTIVE CARE EXAM (Primary Dx); Practice [facility] PREVENTIVE CARE EXAM; [address] [facility] [address] SCREEN MAL NEOP-BREAST,[place] [address] [phone] (Wo rk) Social History Tobacco Use Types Packs/Day Years Used Date Smoking Tobacco: Never Alcohol Use Standard Drinks/Week Comments Not Asked 0 (1 standard drink = 0.6 oz pure alcoho l) 1/mo Sex Assigned at Date Recorded Not on file documented as of this encounter Last Filed Vital Signs Vital Sign Reading Time Taken Comments Blood Pressure 104/70 04/05/2005 10:13 AM CDT Pulse 76 04/05/2005 10:13 AM CDT Temperature 36.7 ??C (98.1 ??F) 04/05/2005 10:13 AM CDT Respiratory Rate 12 04/05/2005 10:13 AM CDT Oxygen Saturation - - Inhaled Oxygen Concentration - - Weight 60.1 kg (132 lb 8 oz) 04/05/2005 10:13 AM CDT Height 151.8 cm (4' 11.75) 04/05/2005 10:13 AM CDT Body Mass Index 26.09 04/05/2005 10:13 AM CDT documented in this encounter Progress Notes 04/05/2005 10:00 AM CDT S> Josie Booker a 34 yr yr old female is in for routine health maintenance. She feels generally well. Current concerns: none. Menses are regular and predictable, comin a little sooner in the month than they have in the past Sexual activity: monogamous in a stable relationship . No history of abnormal paps. Contraception: vasectomy . Cardiovascular risk factors: Total # of Risk Factors for this patient = 0 Nutrition/diet/weight concerns: wants to lose about 10 pounds Present dietary habits: tries to make low fat, high fiber choices most of the time. Present exercise habits: exercises vigorously 3-5 times a week. Date Due Procedure 04/27/2009 - IMM: TD 04/02/2007 - PAP CHOLESTEROL (mg/dl) Date Value 04/02/2004 208* HDL (mg/dl) Date Value 04/02/2004 61 I have asked the patient and reviewed the following history(ies): Family, Medical, Social and Surgical Review of systems include: EYES: no visual blurring, no double vision, no eye pain, ENT: no decrease in hearing, no dental problems, no persistently sore throat, RESPIRATORY: no shortness of breath, no cough, no wheezing, CARDIOVASCULAR: no palpitations, no chest pain, GASTROINTESTINAL: normal appetite, no nausea, no heartburnor relux, no abdominal pain, no melena, no hematochezia, no constipation, no diarrhea, GENITO URINARY: no dysuria, no frequency, no urgency, no hematuria, no incontinence, MUSCULOSKELETAL: no weakness,no muscle pains, SKIN: no rash, no hair changes, no nail changes, no pigmentation change, NEUROLOGIC: no numbness or tingling of hands, no numbness or tingling of feet, no syncope, PSYCHIATRIC: no sleep disturbances, no anxiety, no depression, no excessive alcohol consumption, no illega l drug use, nomarital problems, no sexual difficulties, HEMATOLOGIC/LYMPHATIC/IMMUNOLOGIC: no fevers, no night sweats, no chills, no unexpected weight loss, ENDOCRINE: no cold intolerance, no heat intolerance, no polydypsia, no polyphagia O> General: 34 yr pleasant female who appears her stated age. Today's vital signs were reviewed by me. HEENT: Eyes: no lesions of lids, mattering [...] no axillary or supraclavicular adenopathy, no skin changes, implants present-exam difficult CV: regular rate and rhythm, normal S1 [...] obvious abnormalities. A> Preventive Evaluation and Exam P> See today's orders for details Discussed the importance of: Low fat, high fiber diet and Regular exercise, Encouraged adequate calcium intake Follow-up in 1 Year for preventive care or as directed if low risk. Josie is encouraged to do monthly BSE, come in to clinic for yearly CBE Madisyn Smalls NP 4:28 PM 06/20/2004 documented in this encounter Nursing Notes 04/05/2005 10:00 AM CDT >> KIMBER HANSON 04/05/2005 10:20 am Josie Booker is here today for rhm. Are you having pain today, that you want to discuss with the provider? -NO Method of control? -vasectomy PARA 2-0-0-2 Patient does Self Breast exams? -YES, implants 1999 BP was taken on the RIGHT arm. Large cuff used- NO Immunizations up to date? -YES Preventive Services up to date? -YES PAP SMEAR, ROUTINE (no units) Date Value Low High Status 12/12/2000 Final Value: See Separate Report Performed at [facility] HDL (mg/dl) Date Value 04/02/2004 61 Mammogram done? -Yes, date: neg Where: ig. Bone Density study done? -No testing done. Do you ever feel physically threatened or emotionally afraid -NO Tobacco Status reviewed? (see History Social-Substance) -YES lavatory attendant offered? -NOT APPLICABLE. Aspirin taken daily? - NO Health Education given? -YES. Patient's phone [phone] (home) [phone] (work) Kimber Hanson LPN 04/05/2005 10:15 AM Eye exam: L: 20/ 20, R: 20/ 20 Lenses: NO documented in this encounter Plan of Treatment Not on filedocumented as of this encounter Visit Diagnoses Diagnosis Routine general medical examination at [facility] facility - Primary Routine general medical examination at [facility] care facility Breast screening, unspecified documented in this encounter Care Teams Net Finisher Relationship Specialty Start Date End Date Madisyn Smalls APRN, SURPLUS PROPERTY DISPOSAL AGENT PCP - General 03/03/02 11/04/10 [address] [place] [address] documented as of this encounter
--- OUTSIDE RECORDS SUMMARY | 2022-04-23 15:37 | XMS_ITS | Encounter Summary ---
:1970 Author Organization [facility] Address [address] [place] [address] Care Team Providers Name Role Phone Steve Alston MD Primary Care Provider Encounter Details Date Type Department Care Team Description 06/08/2003 PN Conversion Only DIRECTOR SKILLS 3800 CONV [address] [facility] [address] Social History Tobacco Use Types Packs/Day Years Used Date Smoking Tobacco: Never Assessed Sex Assigned at Date Recorded Not on file documented as of this encounter Plan of Treatment Not on filedocumented as of this encounter Visit Diagnoses Not on filedocumented in this encounter Care Teams Guest Relations Officer Relationship Specialty Start Date End Date Steve Alston MD PCP - General 11/05/10 04/14/[address] [place] [address] [address] [address] documented as of this encounter
--- OUTSIDE RECORDS SUMMARY | 2022-04-23 15:37 | XMS_ITS | Encounter Summary ---
:1970 Author [facility] Address [address] [place] [address] Care Team Providers Name Role Phone Steve Alston MD Primary Care Provider Encounter Details Date Type Department Care Team Description 12/05/2003 Correspondence External to External, Provid er LASER DATA [place] [address] Social History Tobacco Use Types Packs/Day Years Used Date Smoking Tobacco: Never Assessed Sex Assigned at Date Recorded Not on file documented as of this encounter Progress Notes Interface, In Chrtscr And Scan - 07/22/2011 9:[address] MECHANIC documented in this encounter Plan of Treatment Not on filedocumented as of this encounter Visit Diagnoses Not on filedocumented in this encounter Care Teams Sales Closer Relationship Specialty Start Date End Date Steve Alston MD PCP - General 11/05/10 04/14/[address] [place] [address] documented as of this encounter
--- OUTSIDE RECORDS SUMMARY | 2022-04-23 15:37 | XMS_ITS | Encounter Summary ---
:1970 Author Organization [facility] Address [address] [place] [address] Care Team Providers Name Role Phone Madisyn Smalls APRN, CNP Primary Care Provider [phone] Encounter Details Date Type Department Care Team Description 03/03/2003 Orders Only External to [facility] Unknown, Physici an [address] [place], [place] [address] (Wo rk) Social History Tobacco Use Types Packs/Day Years Used Date Smoking Tobacco: Never Assessed Sex Assigned at Date Recorded Not on file documented as of this encounter Procedure Notes Olivia Plaza - 03/03/2003 12:00 AM CDTAssociated Order(s): OUTSIDE LAB documented in this encounter Plan of Treatment Not on filedocumented as of this encounter Procedures Procedure Name Priority Date/Time Associated Diagnosis Comme nts OUTSIDE LAB 03/03/2003 12:00 AM Results for this CDT procedure are i n the results section . documented in this encounter Results OUTSIDE LAB (03/03/2003 12:00 AM CDT) Narrative 03/03/2003 12:00 AM CDT This result has an attachment that is no t available. Ordered by an unspecified provider. Transcriptions Olivia Plaza - 03/03/2003 12:00 AM CDT Physician Unknown DUMMY/OTHER/AR documented in this encounter Visit Diagnoses Not on filedocumented in this encounter Care Teams Dynamics Ax Technical Architect Relationship Specialty Start Date End Date Madisyn Smalls APRN, CNP PCP - General 03/03/02 11/04/10 [address] [facility] [place] [address] documented as of this encounter
--- OUTSIDE RECORDS SUMMARY | 2022-04-23 15:37 | XMS_ITS | Encounter Summary ---
:1970 Author Organization [facility] Address [address] [place] [address] Care Team Providers Name Role Phone Madisyn Smalls APRN, CNP Primary Care Provider Encounter Details Date Type Department Care Team Description 03/08/2003 Orders Only [facility] Unknown, Physician [address] [place], [place] [address] [place] [address] [phone] (Wo rk) Social History Tobacco Use Types Packs/Day Years Used Date Smoking Tobacco: Never Assessed Sex Assigned at Date Recorded Not on file documented as of this encounter Procedure Notes Hebert Joiner - 03/08/2003 12:00 AM CDTAssociated Order(s): OUTSIDE LAB documented in this encounter Plan of Treatment Not on filedocumented as of this encounter Procedures Procedure Name Priority Date/Time Associated Diagnosis Comme nts OUTSIDE LAB 03/08/2003 12:00 AM Results for this CDT procedure are i n the results section . documented in this encounter Results OUTSIDE LAB (03/08/2003 12:00 AM CDT) Narrative 03/08/2003 12:00 AM CDT This result has an attachment that is no t available. Ordered by an unspecified provider. Transcriptions Hebert Joiner - 03/08/2003 12:00 AM CDT Physician Unknown DUMMY/OTHER/AR documented in this encounter Visit Diagnoses Not on filedocumented in this encounter Care Teams Inspector Watch Assembly Relationship Specialty Start Date End Date Madisyn Smalls APRN, STRIP FEEDER PCP - General 03/03/02 11/04/10 [address] [place] [address] documented as of this encounter
--- OUTSIDE RECORDS SUMMARY | 2022-04-23 15:37 | XMS_ITS | Encounter Summary ---
:1970 Author Organization [facility] Address [address] [address] Care Team Providers Name Role Phone Madisyn Smalls APRN, CNP Primary Care Provider [phone] Encounter Details Date Type Department Care Team Description 04/06/2004 Correspondence [facility] Madisyn Smalls, LAB TEST F/U Practice [facility] [address] [facility] [address] [place] [address] [address] [place] [address] [phone] (Wo rk) Social History Tobacco Use Types Packs/Day Years Used Date Smoking Tobacco: Never Assessed Alcohol Use Standard Drinks/Week Comments Not Asked 0 (1 standard drink = 0.6 oz pure alcoho l) Sex Assigned at Date Recorded Not on file documented as of this encounter Progress Notes Madisyn Smalls - 04/06/2004 12:00 AM CDT documented in this encounter Plan of Treatment Not on filedocumented as of this encounter Visit Diagnoses Not on filedocumented in this encounter Care Teams Acoustic Engineer Relationship Specialty Start Date End Date Madisyn Smalls APRN, CNP PCP - General 03/03/02 11/04/10 [address] [place] [address] documented as of this encounter
--- OUTSIDE RECORDS SUMMARY | 2022-04-23 15:37 | XMS_ITS | Encounter Summary ---
:1970 Author Organization [facility] Address [address], [place] [address] Care Team Providers Name Role Phone Madisyn Smalls APRN, CNP Primary Care Provider Reason for Visit Reason Comments EXPOSURE TO, STREP THROAT Encounter Details Date Type Department Care Team Description 03/03/2005 Office Visit [facility] P HARYNGITIS(SORE [place] THROAT) (Primary Dx) [address] [place], [place] [address] Social History Tobacco Use Types Packs/Day Years Used Date Smoking Tobacco: Never Assessed Alcohol Use Standard Drinks/Week Comments Not Asked 0 (1 standard drink = 0.6 oz pure alcoho l) Sex Assigned at Date Recorded Not on file documented as of this encounter Last Filed Vital Signs Vital Sign Reading Time Taken Comments Blood Pressure 118/74 03/03/2005 1:36 PM CDT Pulse 100 03/03/2005 1:36 PM CDT Temperature 36.8 ??C (98.3 ??F) 03/03/2005 1:36 PM CDT Respiratory Rate - - Oxygen Saturation - - Inhaled Oxygen Concentration - - Weight - - Height - - Body Mass Index - - documented in this encounter Progress Notes 03/03/2005 1:30 PM CDT SUBJECTIVE: Josie Booker is an 34 yr female who presents for evaluation and treatment of sore throat. Symptoms include ear pain on right and sore throat. Onset 3 days, gradually worsening since that time. Known Strep exposure: household exposure. Current outpatient prescriptions: AMOXICILLIN 500 MG OR CAPS,1 tid,Disp: 30,Rfl: 0 MULTIPLE VITAMIN TABS,Take 1 tablet by mouth once a day,Disp: 30,Rfl: prn VITAMIN C 500 MG OR TABS,1 tab daily,Disp: 30,Rfl: 0 VITAMIN E 400UNIT ORAL CAPS,1 tab daily,Disp: 30,Rfl: 0 Review of patient's allergies indicates: Nka Tobacco Use: Not Asked Alcohol Use: Not Asked OBJECTIVE: BP 118/74 Pulse 100 Temp (Src) 98.3 (Tympanic) General appearance: healthy, in no distress Ears: R TM - WNL: pearly, mansfield with good light reflex and scars, L TM - WNL: pearly, mansfield with goodlight reflex and scars Nose: normal Oropharynx: mild erythema Neck: supple and no adenopathy Lungs: clear to auscultation without any rales or rhonchi bilaterally Heart: regular rate and rhythm ASSESSMENT: Acute pharyngitis - r/o Strep PLAN: Dx: Strep screen is neg Rx: 1) Symptomatic treatment with fluids, acetaminophen. 2) Recheck as needed for persistence, worsening, appearance of new symptoms. PE: Discussed possible etiologies of symptoms and need for antibiotic treatment if Strep found. Harry Castro MD documented in this encounter Plan of Treatment Not on filedocumented as of this encounter Procedures Procedure Name Priority Date/Time Associated Diagnosis Comme nts STREP GRP A, RAPID Waiting 03/03/2005 1:45 PM Acute Res ults for this SCREEN CDT Pharyngitis(Sore procedure a re in Throat) the results section. documented in this encounter Results STREP GRP A, RAPID SCREEN (03/03/2005 1:45 PM CDT) [facility] Method Time Signature Patient Home None [facility] Phone # Patient Work None [facility] [employer] Phone # Grp A Rapid Negative [facility] Screen Grp A Culture Negative [facility] Final Specimen Anatomical Collection Method Collection Time Receive d Time (Source) Location / / Volume Laterality 03/03/2005 1:45 PM 5 1:46 CDT PM CDT Harry Castro MD LAB_1 Performing Organization Address City/State/ZIP Code Phon e Number [facility] [phone] [employer] [address] [place] [id number] documented in this encounter Visit Diagnoses Diagnosis Acute pharyngitis - Primary documented in this encounter Care Teams Livestock Buyer Relationship Specialty Start Date End Date Madisyn Smalls, DONINE, TECHNICAL STAFF ASSISTANT PCP - General 03/03/02 11/04/10 [address] [place] [address] documented as of this encounter
--- OUTSIDE RECORDS SUMMARY | 2022-04-23 15:37 | XMS_ITS | Encounter Summary ---
:1970 Author Organization [facility] Address [address] [place] [address] Care Team Providers Name Role Phone Madisyn Smalls APRN, CNP Primary Care Provider [phone] Encounter Details Date Type Department Care Team Description 12/08/2003 Correspondence [facility] MAHESH Joiner [facility] [address] [facility] Hebert [facility] / LASER [address]. [address] PROCEDURE [place], [place] [address] [place], [place] [phone] [address] Social History Tobacco Use Types Packs/Day Years Used Date Smoking Tobacco: Never Assessed Sex Assigned at Date Recorded Not on file documented as of this encounter Progress Notes Hebert Joiner - 12/08/2003 12:00 AM CDT documented in this encounter Plan of Treatment Not on filedocumented as of this encounter Visit Diagnoses Not on filedocumented in this encounter Care Teams Drug Worker Relationship Specialty Start Date End Date Madisyn Smalls APRN, CNP PCP - General 03/03/02 11/04/10 [address] [place] [address] documented as of this encounter
--- OUTSIDE RECORDS SUMMARY | 2022-04-23 15:37 | XMS_ITS | Encounter Summary ---
:1970 Author Organization [facility] Address [address] [address] Care Team Providers Name Role Phone Madisyn Smalls APRN, CNP Primary Care Provider [phone] Encounter Details Date Type Department Care Team Description 03/14/2003 Office Visit [facility] [address] [facility] [address] [place], [place] [address] [place] [address] [phone] (Wo rk) Social History Tobacco Use Types Packs/Day Years Used Date Smoking Tobacco: Never Assessed Sex Assigned at Date Recorded Not on file documented as of this encounter Progress Notes Hebert Joiner - 03/14/2003 12:00 AM CDTBiopsy of 03/08/03 on her left lateral lower leg was reported as favoring dermatofibroma. This is consistent with the clinical impression. Card sent. 11:49 A cc: documented in this encounter Plan of Treatment Not on filedocumented as of this encounter Visit Diagnoses Not on filedocumented in this encounter Care Teams Fire Chief'S Aide Relationship Specialty Start Date End Date Madisyn Smalls APRN, CNP PCP - General 03/03/02 11/04/10 [address] [place] [address] documented as of this encounter
--- OUTSIDE RECORDS SUMMARY | 2022-04-23 15:37 | XMS_ITS | Encounter Summary ---
:1970 Author Organization [facility] Address [address] [address] Care Team Providers Name Role Phone Madisyn Smalls APRN, CNP Primary Care Provider [phone] Reason for Visit Reason Onset Date Comments PRESCRIPTION, NOS 09/24/2006 Encounter Details Date Type Department Care Team Description 09/24/2006 Telephone [facility] Madisyn Smalls P RESCRIPTION, NOS [facility] [address] [address] [place] [address] [phone] (Wo rk) Social History Tobacco Use Types Packs/Day Years Used Date Smoking Tobacco: Never Alcohol Use Standard Drinks/Week Comments Not Asked 0 (1 standard drink = 0.6 oz pure alcoho l) 1/mo Sex Assigned at Date Recorded Not on file documented as of this encounter Nursing Notes Tanesha Robert - 09/24/2006 11:45 AM CST Triage Reference: SINUS CONGESTION AND PAIN - ADULT CNG (c) 2004 CONCERN: length of this. STAT SYMPTOMS:. Very severe facial pain? No Visual Disturbance?No Periorbital swelling or erythema? No Facial swelling or erythema? No Fever > 102 with above symptoms? No ASSESSMENT: Complications: none VURI Symptoms : Cough r/t PND and Rhinorrhea/PND green discharge Length of URI symptoms: 7 days, or more Sinus Symptoms : colored nasal drainage, poor response to decongestants, maxillary pressure present and headache Complicating Symptoms: none Smoker? No Smoking enviroment? No TRIAGE: Does Patient have any medication allergies?No Standing order for medication treatment because Patient has symptoms of bacterial sinusitis with no complicated history or symptoms: Treat Per Sinus standing order Per Dr. Cabrera or Amoxicillin 500mg TID for 10 days HOME TREATMENT: Discussed per guideline: Decongestants: (avoid if hx. uncontrolled HTN) Pseudoephedrine HCL (sudafed) 60 mg q 4-6 hrs, not to exceed 4 doses in 24 hrs Decongestant nasal sprays for no longer than 3 days Oxymetazoline (afrin), Phenylephrine HCL (Neosynephrine) Analgesics (acetaminophen, ibuprofen 200mg, 2-3 tab bid with food or ASA) if no contraindications Sleep with head of bed elevated Rest, increase fluids to 8-10 glasses/day, humidify air, steamy showers, Saline irrigation/nasal drops/nasal spray Commercial (ocean, salinex, nasal) or homemade-1/4 tsp salt dissolved in 1 cup water; use bulb syringe or dropper purchased from store C/B if symptoms worsen, or if symptoms have not resolved in 1 week PLAN: Called RX into [facility] per Dr. Cabrera. RAM ASSOCIATE Tanesha Robert - 09/24/2006 8:55 AM CST Left message to call back. RAM ASSOCIATE Do Mcpherson - 09/24/2006 8:09 AM CST Would like RX for Sinus Infection without being seen. Has had sinus infection before and she has thesame symptoms pain pressure green drainage. Has been treating with tylenol for head pain, and sudafed for the green nasal drainage, and drainage running down the back of the throat. Would like nurse toaddress this as her DrEarl Is not in today. Would RX sent to [facility] in [place]. RAM ASSOCIATE documented in this encounter Plan of Treatment Not on filedocumented as of this encounter Visit Diagnoses Not on filedocumented in this encounter Care Teams Telephone Surveyor Relationship Specialty Start Date End Date Madisyn Smalls, DONNIE, CHEMICAL SALES REPRESENTATIVE PCP - General 03/03/02 11/04/10 [address] [place] [address] documented as of this encounter
--- OUTSIDE RECORDS SUMMARY | 2022-04-23 15:37 | XMS_ITS | Encounter Summary ---
:1970 Author Organization [facility] Address [address] [place] [address] Care Team Providers Name Role Phone Madisyn Smalls APRN, CNP Primary Care Provider [phone] Reason for Visit Reason Comments LASER TREATMENT Encounter Details Date Type Department Care Team Description 03/06/2006 Office Visit [facility] (UNSPECIFIED); [address] Lisa Ambrosio MD DYSCHROMIA UNSPECIFIED [place], [place] [address] [facility] [phone] [place] [address] Social History Tobacco Use Types Packs/Day Years Used Date Smoking Tobacco: Never Alcohol Use Standard Drinks/Week Comments Not Asked 0 (1 standard drink = 0.6 oz pure alcoho l) 1/mo Sex Assigned at Date Recorded Not on file documented as of this encounter Consult Notes Hebert Joiner - 03/06/2006 12:00 AM CDTSUBJECTIVE: The patient comes in for a couple of problems. One, to reevaluate the laser destruction of her tattoo on her right lateral ankle, it seems to be going nicely. Still a little bit irritated and scaling and erythematous, but the tattoo ink seems to be disappearing slowly. She also wanted to talk about her face, however. She was to see another tumbling machine operator who thought she might have had melasma and gave her Tri-Mana which seems to be helping a little bit. She describes some darkness on her cheeks, a little bit on her chin, it is not clear how long it has been there. She has been using foundation in the past when she has seen me and it is not clear that she has had hyperpigmentation all about. The last time I saw her on February 06, 2006, she did have 2 centimeter-sized macules with central depression, mild hypopigmentation and a peripheral hyperpigmentation. She also has a little bump on her right cheek that is asymptomatic. No other skin problems today. OBJECTIVE: The patient is in no acute distress, mildly obese, otherwise well-nourished, well-developed with appropriate affect. With no foundation on today she does have a little bit of acneiform eruption with some mild erythema on her cheeks and her chin. There is a little bit of hyperpigmentation in those areas also. On the left cheek there seems to be three somewhat oval zones of relative hypopigmentation. This is relative to the surrounding peripheral hyperpigmentation that is mild, but possibly in keeping with the normal skin tone that she has elsewhere. On her right cheek there is approximately a 3-millimeter flat siu, questionably warty papule. ASSESSMENT: Seborrheic keratosis versus flat wart on her right cheek. ? postinflammatory hyper/hypopigmentation versus melasma. Possible acne and/or rosacea. PLAN:Discussion with the patient concerning diagnosis, treatment options, complications. At this time she just wished to continue with the Tri-Mana. I told her to use it daily and not more than two months, but also stressed the need for good broad spectrum sunscreen with frequently applying it and avoiding sun. Note that she was on control pills for one month about three months ago for period regulation which seems to have helped so she stopped using it. Did review melasma and interaction with sun and hormonal change. For now will hold off on laser treatment, however if she wants to have another one she can call and if it is within a number of months we can just see her at the time for reevaluation, but if there is any question of scarring or persistent problems she can call and we can see her otherwise. Total time 25 minutes, 20 minutes counseling. 03/06/2006 10:58 A cc: documented in this encounter Plan of Treatment Not on filedocumented as of this encounter Visit Diagnoses Diagnosis Viral warts, unspecified Dyschromia, unspecified documented in this encounter Care Teams Handle Sander Operator Relationship Specialty Start Date End Date Madisyn Smalls, ROOMING HOUSE INSPECTOR, RESTAURANT CREW MEMBER PCP - General 03/03/02 11/04/10 [address] [place] [address] documented as of this encounter
--- OUTSIDE RECORDS SUMMARY | 2022-04-23 15:37 | XMS_ITS | Encounter Summary ---
:1970 Author Organization [facility] Address [address] [place] [address] Care Team Providers Name Role Phone Madisyn Smalls APRN, CNP Primary Care Provider [phone] Encounter Details Date Type Department Care Team Description 03/08/2004 Correspondence None Unknown, Physici an CONSENT/ RELEASE [address] [place], [place] [address] (Wo rk) Social History Tobacco Use Types Packs/Day Years Used Date Smoking Tobacco: Never Assessed Sex Assigned at Date Recorded Not on file documented as of this encounter Progress Notes Unknown, Physician - 03/08/2004 12:00 AM CDT documented in this encounter Plan of Treatment Not on filedocumented as of this encounter Visit Diagnoses Not on filedocumented in this encounter Care Teams Social Work Assistant Relationship Specialty Start Date End Date Madisyn Smalls APRN, CNP PCP - General 03/03/02 11/04/10 [address] [place] [address] documented as of this encounter
--- OUTSIDE RECORDS SUMMARY | 2022-04-23 15:37 | XMS_ITS | Encounter Summary ---
:1970 Author Organization [facility] Address [address], [place] [address] Care Team Providers Name Role Phone Madisyn Smalls APRN, AGUSTIN Primary Care Provider [phone] Reason for Visit Reason Onset Date Comments SINUSITIS 11/02/2004 Encounter Details Date Type Department Care Team Description 11/02/2004 Telephone [facility] Madisyn Smalls A PRN, SINUSITIS Practice [facility] [address] [facility] [id number] [place] [address] [address] [place] [address] [phone] (Wo rk) Social History Tobacco Use Types Packs/Day Years Used Date Smoking Tobacco: Never Assessed Alcohol Use Standard Drinks/Week Comments Not Asked 0 (1 standard drink = 0.6 oz pure alcoho l) Sex Assigned at Date Recorded Not on file documented as of this encounter Nursing Notes 11/02/2004 11:59 PM MASKING MACHINE OPERATOR >> REGIS ZHU Fri Nov 02, 2004 4:01 PM Triage Reference: SINUS CONGESTION AND PAIN - ADULT CNG (c) 2004 CONCERN: sinusitis. STAT SYMPTOMS:. Very severe facial pain? No Visual Disturbance?No Periorbital swelling or erythema? No Facial swelling or erythema? No Fever > 102 with above symptoms? No ASSESSMENT: Complications: none VURI Symptoms : Cough and Rhinorrhea/PND Length of URI symptoms: 7 days, or more Sinus Symptoms : colored nasal drainage, poor response to decongestants, maxillary pressure presentand headache Complicating Symptoms: none Smoker? No Smoking enviroment? No TRIAGE: Does Patient have any medication allergies?No Standing order for medication treatment because Patient has symptoms of bacterial sinusitis with nocomplicated history or symptoms: Treat Per Sinus standing order Per Cure amoxicillin 500mg 3xd 10 days, Call back if symptoms wors en or if symptoms have not resolved or Review home treatment HOME TREATMENT: Pseudoephedrine HCL (sudafed) 60 mg q 4-6 hrs, not to exceed 4 doses in 24 hrs Analgesics (Acetaminophen, Ibuprofen 200mg, 2-3 tab bid with food or ASA Sleep with head of bed elevated rest, increase fluids to 8-10 glasses/day, humidify air, steamy showers, Commercial (ocean, salinex, nasal) or homemade-1/4 tsp salt dissolved in 1 cup water; use bulb syringe or dropper purchased from store Plan: Script sent to [facility] as directed. >> MARY Patel Nov 02, 2004 3:24 PM head cold for 8 days, feels same as sinus infection that she has had in past. Hoping to get RX without being seen. RX at [facility] [phone]. documented in this encounter Plan of Treatment Not on filedocumented as of this encounter Visit Diagnoses Not on filedocumented in this encounter Care Teams Veterinary Receptionist Relationship Specialty Start Date End Date Madisyn Smalls APRN, AUTO BODY SERVICE MECHANIC PCP - General 03/03/02 11/04/10 [address] [place] [address] documented as of this encounter
--- OUTSIDE RECORDS SUMMARY | 2022-04-23 15:37 | XMS_ITS | Encounter Summary ---
:1970 Author Organization [facility] Address [address] [place] [address] Care Team Providers Name Role Phone Luis Smalls APRN, CNP Primary Care Provider [phone] Encounter Details Date Type Department Care Team Description 04/02/2004 Orders Only [facility] or Luis Smalls, [address] [facility] AGUSTIN FIELDS [place], [place] [address] [facility] [phone] [place] [address] (Wo rk) Social History Tobacco Use Types [...] Diagnosis Comme nts PAP TEST, ROUTINE Routine 04/02/2004 12:00 AM Res ults for this CDT procedure are i n the results section. documented in this encounter Results PAP TEST, ROUTINE (04/02/2004 12:00 AM CDT) Component Value Ref Test Analysis Performed At [facility] Range Method Time Signature Cytology, Pap (NOTE) [facility] Label [facility]er Cytology Report Patient Name: RAHAT THOMASON Taken: 04/02/04 Received: 04/04/04 Reported: 04/12/04 Physician(s): LUIS SMALLS ([id number]) ?Source of Specimen Liquid routine Pap, cervical/endocervical: ?Specimen Adequacy ?Satisfactory for evaluation. ??Endocervical component present. ? Final Cytologic Interpretation/Result NEGATIVE FOR INTRAEPITHELIAL LESION OR MALIGNANCY (NILM) ? sv/04/12/04 Electronically Signed Out By NIMA Garcia (ASCP) NIMA Garcia (ASCP) ?Pap Smear History ?Date of Last Menstrual Period: ? 03/20/04 ?Other Clinical Conditions: ?LAST PAP: NORMAL HPV reflex testing requested with interpretation of ASCUS ? Specimen (Source) Anatomical Collection Method Collection Time Re ceived Time Location / / Volume Laterality 04/02/2004 04/04/2004 11:3 5 AM CDT Luis Smalls APRN AIR CARRIER OPERATIONS INSPECTOR LAB_1 Performing Organization Address City/State/ZIP Code Phon e Number [address] [id number] [place], [place] [phone] documented in this encounter Visit Diagnoses Not on filedocumented in this encounter Care Teams Auditor Relationship Specialty Start Date End Date Luis Smalls APRN, AIR CARRIER OPERATIONS INSPECTOR PCP - General 03/03/02 11/04/10 [address] [place] [address] documented as of this encounter
--- OUTSIDE RECORDS SUMMARY | 2022-04-23 15:37 | XMS_ITS | Encounter Summary ---
:1970 Author Organization [facility] Address [address] [place] [address] Care Team Providers Name Role Phone Madisyn Smalls APRN, AGUSTIN Primary Care Provider [phone] Encounter Details Date Type Department Care Team Description 03/08/2004 Office Visit [facility], PLASTIC SURGERY NEC; [address] Lisa Ambrosio MD DYSCHROMIA OTHER [place], [place] [address] [facility] [phone] [place] [address] Social History Tobacco Use Types Packs/Day Years Used Date Smoking Tobacco: Never Assessed Sex Assigned at Date Recorded Not on file documented as of this encounter Progress Notes 03/08/2004 10:15 AM CDT Josie Booker is here today for laser tx. Primary care provider is STORM Noble LPN, 03/08/2004, 10:19 AM Hebert Joiner - 03/08/2004 12:00 AM CDTSUBJECTIVE: Patient comes in today for second laser destruction of tattoo on her right ankle. Since our last treatment, she has had very little effect in her mind of the blue-gallegos surrounding curvilinear pattern. The red heart in the center has had some itching; it has persisted and a little whitish rodriguez. Otherwise though, she wants to take a second try. I did talk with her on the phone because of decreased effect from this, I told her we could give it one more try and delay the [facility] charge until she is at least satisfied that the second treatment did something; otherwise, we would not charge her. We will call her in a month for that. She knows that [facility] will charge her today. The central red heart has questionable decreased pigmentation. There is a little bit of scale and possibly eczematous change focally but it is not real clear, certainly not anything more than subtle. There is some breaking up of the blue-black pigment curvilinear pattern around the heart but not terribly traumatic. Given all the above with her informed consent, the Nd:YAG 5 laser was used to destroy just the blue-black pigment. I chose not to treat the red today to see if the itching will resolve. Hopefully, there would not be any eczematous reaction that is of any duration. But as I told her initially, that rarely could happen. With her informed consent, then the procedure was done. PROCEDURE: With all parties present, using appropriate eye protection and using a Q-YAG laser with a 2mm spot size and 10.5 J/cm2 increasing jail through treatment to 11.5 J/cm2 were applied to the curvilinear pattern in blue-black ink around the red heart at 1064 nanometers. This was all after 1% Xylocaine with epinephrine and Bioclusive transparent dressing. Patient tolerated it well. A whitish discoloration appearance is expected. Aftercare instructions reviewed. Return to clinic in two months (schedule). Will call in one month to find out how she is doing. D: cc: documented in this encounter Plan of Treatment Not on filedocumented as of this encounter Visit Diagnoses Diagnosis Other plastic surgery for unacceptable c osmetic appearance Other dyschromia documented in this encounter Care Teams Fell Cutter Relationship Specialty Start Date End Date Madisyn Smalls APRN, AUTOMATIC NAILING MACHINE FEEDER PCP - General 03/03/02 11/04/10 [address] [place] [address] documented as of this encounter
--- OUTSIDE RECORDS SUMMARY | 2022-04-23 15:37 | XMS_ITS | Encounter Summary ---
:1970 Author Organization [employer] Address [address] [place] [address] Care Team Providers Name Role Phone Madisyn Smalls APRN, AGUSTIN Primary Care Provider [phone] Encounter Details Date Type Department Care Team Description 12/08/2003 Office Visit [facility], PLASTIC SURGERY NEC; [address] Lisa Ambrosio MD DYSCHROMIA OTHER [place], [place] [address] [address] [facility] [phone] [place] [address] Social History Tobacco Use Types Packs/Day Years Used Date Smoking Tobacco: Never Assessed Sex Assigned at Date Recorded Not on file documented as of this encounter Progress Notes 12/08/2003 10:45 AM CDT Josie Booker is here today for laser tx right ankle tattoo. Primary care provider is STORM Noble LPN, 12/08/2003, 10:51 AM Hebert Joiner - 12/08/2003 12:00 AM CDTSUBJECTIVE: Patient comes in today for first laser destruction of tattoo on her right ankle (see note of 12/05/03 for specifics of tattoo), which is a professional blue-black symmetrical scroll with a small central red heart. Again, reviewed diagnosis, treatment options, complications including inefficacy, scarring, discomfort and the cost, which would be $191 for the [facility] and $99 for [employer]. Note that these charges would be at each visit and it would take a number of visits, possibly as few as four and possibly as many as 12 to get the maximum improvement. She understands and accepts all these; and with her informed consent, procedure was done. PROCEDURE: Using the Q-YAG laser with a 4-mm spot size at 3.3 joules/cm2 in 1064 setting, multiple pulses were administered around the blue-black scrolled area on either side and the outline of the heart and then the settings were changed to first four at 3.3 and then without much of effect to 12.2-mm size at 12.0 joules/cm2, pulses were administered to the red heart at 532 nm. Patient tolerated well. This is all after 1% Xylocaine with epinephrine locally. After care instructions were reviewed, and she will return in three months for a second treatment. 12:23 P cc: documented in this encounter Plan of Treatment Not on filedocumented as of this encounter Visit Diagnoses Diagnosis Other plastic surgery for unacceptable c osmetic appearance Other dyschromia documented in this encounter Care Teams Quality Control Auditor Relationship Specialty Start Date End Date Madisyn Smalls APRN, WAGON PERSON PCP - General 03/03/02 11/04/10 [address] [place] [address] documented as of this encounter
--- OUTSIDE RECORDS SUMMARY | 2022-04-23 15:37 | XMS_ITS | Encounter Summary ---
:1970 Author Organization [facility] Address [address] [place] [address] Care Team Providers Name Role Phone Madisyn Smalls APRN, CNP Primary Care Provider [phone] Encounter Details Date Type Department Care Team Description 02/06/2006 Correspondence None Hp Rois, Provider CONSENT AND RELEASE Social History Tobacco Use Types Packs/Day Years Used Date Smoking Tobacco: Never Alcohol Use Standard Drinks/Week Comments Not Asked 0 (1 standard drink = 0.6 oz pure alcoho l) 1/mo Sex Assigned at Date Recorded Not on file documented as of this encounter Progress Notes Jh Curry, Provider - 02/06/2006 12:00 AM CDT documented in this encounter Plan of Treatment Not on filedocumented as of this encounter Visit Diagnoses Not on filedocumented in this encounter Care Teams Datastage Architect Relationship Specialty Start Date End Date Madisyn Smalls APRN, CNP PCP - General 03/03/02 11/04/10 [address] [place] [address] documented as of this encounter
--- OUTSIDE RECORDS SUMMARY | 2022-04-23 15:37 | XMS_ITS | Encounter Summary ---
:1970 Author Organization [employer] Address [address] [address] Care Team Providers Name Role Phone Madisyn Smalls APRN, CNP Primary Care Provider [phone] Encounter Details Date Type Department Care Team Description 04/02/2004 Office Visit [facility] Madisyn Smalls P REVENTIVE CARE EXAM Practice AGUST[place] FIELDS [address] [address] [phone] (Wo rk) Social History Tobacco Use Types Packs/Day Years Used Date Smoking Tobacco: Never Assessed Alcohol Use Standard Drinks/Week Comments Not Asked 0 (1 standard drink = 0.6 oz pure alcoho l) Sex Assigned at Date Recorded Not on file documented as of this encounter Last Filed Vital Signs Vital Sign Reading Time Taken Comments Blood Pressure 100/80 04/02/2004 1:00 PM CDT Pulse 78 04/02/2004 1:00 PM CDT Temperature 36.6 ??C (97.9 ??F) 04/02/2004 1:00 PM CDT Respiratory Rate 12 04/02/2004 1:00 PM CDT Oxygen Saturation - - Inhaled Oxygen Concentration - - Weight 62.8 kg (138 lb 8 oz) 04/02/2004 1:00 PM CDT Height 151.1 cm (4' 11.5) 04/02/2004 1:00 PM CDT Body Mass Index 27.51 04/02/2004 1:00 PM CDT documented in this encounter Progress Notes 04/02/2004 1:00 PM CDT Addended by: KIMBER HANSON on: 04/13/2004, 11:31:59 AM (via Web). Comment: wnl pap letter sent to pt today via mail Josie Booker is here today for pe/pap. Are you having pain today, that you want to discuss with the provider? -YES Method of control? -vasectomy PARA 2-0-0-2 Patient does Self Breast exams? -YES, implants in 1999 BP was taken on the RIGHT arm. Large cuff used- NO Immunizations up to date? -YES Preventive Services up to date? -YES PAP SMEAR, ROUTINE (no units) Date Value Low High Status 12/12/2000 Final Value: See Separate Report Performed at [facility] CHOLESTEROL (mg/dl) Date Value 08/08/1998 166 HDL (mg/dl) Date Value 08/08/1998 54 Mammogram done? -Yes, date: neg Where: ig. Bone Density study done? -No testing done. Do you ever feel physically threatened or emotionally afraid -NO Tobacco Status reviewed? (see History Social-Substance) -YES board attendant offered? -NOT APPLICABLE. Aspirin taken daily? - NO Health Education given? -YES. Patient's phone [phone] (home) [phone] (work) Kimber Hanson LPN 04/02/2004 1:14 PM Vision check done RT eye 20/20, LT eye 20/20. Correction used? no BP 100/80 Pulse 78 Temp 97.9 Resp 12 Ht 4' 11.50 (1.51m) Wt 138 lbs 8 oz (62.8kg) LMP 03/20/2004 Nka, , Current outpatient prescriptions: MULTIPLE VITAMIN TABS,Take 1 tablet by mouth once a day,Disp: 30,Rfl: prn VITAMIN C 500MG ORAL TABS,1 tab daily,Disp: 30,Rfl: 0 VITAMIN E 400 UNIT OR CAPS,1 tab daily,Disp: 30,Rfl: 0 S> Josie Booker is in for routine health maintenance. She feels generally well. 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 Current concerns: menses are occuring q 25-31 days-much more aware of ovulation with some lower pelvic cramping from ovulation under menses starts, no PCB, no dyspareunia, no concerns re: STIs, no persistent bloating. Menses are as above Sexual activity: monogamous in a stable relationship . Contraception: has had a vasectomy. Cardiovascular risk factors: Total # of Risk Factors for this patient = 0 Nutrition/diet/weight concerns: wants a healthier diet Present dietary habits: tries to make low fat, high fiber choices most of the time. Present exercise habits: exercises vigorously 3-5 times a week. Domestic violence concerns:denies any concern I have asked the patient and reviewed the following history(ies): Family, Medical, Social and Surgical, no FH of colon Ca Review of systems include: EYES: no visual blurring, no double vision, no eye pain, ENT: no abnormally frequent URIs, no decrease in hearing, no dental problems, no persistently sore throat, RESPIRATORY: no shortness of breath,no cough, no wheezing, CARDIOVASCULAR: no palpitations, no chest pain, GASTROINTESTINAL: normal appet ite, no dysphagia, no nausea, no abdominal pain, no melena, no hematochezia, no constipation, no diarrhea, GENITOURINARY: no dysuria , no frequency, no urgency, no hematuria, no incontinence, MUSCULOSKELETAL: no weakness, no muscle pains, SKIN: no rash, no itch, no scaling, no hair changes, no nail changes, no pigmentation change, is having tatoo removed LLleg by dermatology NEUROLOGIC: no numbness or tingling of hands, no numbness or tingling of feet, no syncope, PSYCHIATRIC: no sleep disturbances, no anxiety, no depression, no excessive alcohol consumption, no illegal drug use, no marital problems, no sexual difficulties, HEMATOLOGIC/LYMPHATIC/IMMUNOLOGIC: no fevers, no night sweats, no chills, no weight loss, ENDOCRINE: no cold intolerance, no heat intolerance, no polydypsia, no polyphagia,no thyroid disorder, no diabetes O> General: 33 yr pleasant female who appears her stated age. HEENT: Eyes: no lesions of lids, mattering or redness Head: normocephalic Mouth and throat: without erythema or lesions of the mucosa Nose: without septal or mucosal abnormalities Ears: external canals and TMs free of lesions or abnormalities. Neck: supple, without adenopathy or thyromegaly. Lungs: clear to auscultation, no wheezes, no crackles Breasts: no dominant mass or nipple changes and exam is difficult due to bilateral breast implants CV: regular rate and rhythm, normal S1 [...] Low fat, high fiber diet and Regular exercise Follow-up in 1 Years for preventive care. Pt is encouraged to continue to monitor her menses and pelvic discomfort-if this increases in severity or frequency or she develops new symptoms she should RTC for further evaluation. Madisyn Smalls NP 1:49 PM 04/02/2004 documented in this encounter Plan of Treatment Not on filedocumented as of this encounter Visit Diagnoses Diagnosis Routine general medical examination at [facility] Routine general medical examination at a [facility] care facility documented in this encounter Care Teams Supervisor Welding Equipment Repairer Relationship Specialty Start Date End Date Madisyn Smalls APRN, HOME CARE MUSIC THERAPIST PCP - General 03/03/02 11/04/10 [address] [place] [address] documented as of this encounter
--- OUTSIDE RECORDS SUMMARY | 2022-04-23 15:37 | XMS_ITS | Encounter Summary ---
:1970 Author Organization [facility] Address [address] [place] [address] Care Team Providers Name Role Phone Madisyn Smalls APRN, AGUSTIN Primary Care Provider Encounter Details Date Type Department Care Team Description 12/05/2003 Office Visit [facility], DYSCHROMIA OTHER; [address] Lisa Ambrosio MD BENIGN SARAH SKIN LEG [place], [place] [address] [address] [facility] [phone] [place] [address] Social History Tobacco Use Types Packs/Day Years Used Date Smoking Tobacco: Never Assessed Sex Assigned at Date Recorded Not on file documented as of this encounter Progress Notes 12/05/2003 1:45 PM CDT Josie Booker is here today for laser consult. Primary care provider is STORM Noble LPN, 12/05/2003, 1:51 PM Hebert Joiner - 12/05/2003 12:00 AM CDTS: Patient comes in today for re- discussion of a tattoo and the bump. The tattoo is on her right lateral ankle and has been there for 4-1/2 years. Never been treated for destruction but she is tired of it and realizes it was a mistake and would like to see if there is anything that can be done about it. I did see her for the same problem on 03/14/03 and she is back just for a further discussion of possible approaches. In addition there is a bump on her left lateral ankle. Was a symptomatic dermatofibroma when I saw her before and it was shaved flush with the skin. It has stayed away in thickness but the darkness seems to be possibly slowly coming back. It is not clear. No other skin problems. O: Patient in no acute distress. Well-nourished, well-developed with appropriate affect. On her left lateral ankle is a typical targetoid 6-7 mm brown slightly pink skin colored dermal epidermal papule. It is flat. On her right lateral ankle is a 9-1/2 to 10 x 3 cm tattoo. There is a central red heart with a blue/black symmetrical scroll pattern on either side. A: Dermatofibroma, residual, asymptomatic. Tattoo. P: Discussion with patient concerning diagnosis, treatment options and complications. Reassurance. At this point we decided to go no further with the dermatofibroma since any further surgery may make it worse. For the tattoo I did describe we could do nothing, she could use make-up over it or one of the other non-specific destructive processes (excision, derm abrasion, salabrasion, etc.) or the more specific laser destruction. I reviewed the use of the Nd:YAG laser. I reviewed with her that it did not have guaranteed success, that it was a little uncomfortable requiring either intralesional Lidocaine or a topical anesthetic, and that it could scar. She understands all of this. There will be a charge of $191 for Gratci for 10 minutes, and $5 a minute thereafter, along with the [employer] destructive fee of approximately $100 to $150. All of these are for each session and it may take 8 +/- sessions to get maximum medical improvement. She is willing to forge ahead and so we have scheduled her for this when the laser comes in, and then will have to see her back in March and then May if we are going to proceed more. Return to clinic to see me for cosmetic destruction of the tattoo. P cc: documented in this encounter Plan of Treatment Not on filedocumented as of this encounter Visit Diagnoses Diagnosis Other dyschromia Benign neoplasm of skin of lower limb, i ncluding hip documented in this encounter Care Teams Pole Peeling Machine Operator Helper Relationship Specialty Start Date End Date Madisyn Smalls, DONNIE, CASKET ASSEMBLER METAL PCP - General 03/03/02 11/04/10 [address] [place] [address] documented as of this encounter
--- OUTSIDE RECORDS SUMMARY | 2022-04-23 15:37 | XMS_ITS | Encounter Summary ---
:1970 Author Organization [facility] Address [address] [place] [address] Care Team Providers Name Role Phone Madisyn Smalls APRN, AGUSTIN Primary Care Provider Reason for Visit Reason Comments LASER TREATMENT tattoo Encounter Details Date Type Department Care Team Description 08/07/2006 Office Visit [facility], Other Plastic Surgery for Un acceptable Cosmetic Appearance; [address] [place] 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 [place], [place] [address] [place], [place] [phone] [address] Social History Tobacco Use Types Packs/Day Years Used Date Smoking Tobacco: Never Alcohol Use Standard Drinks/Week Comments Not Asked 0 (1 standard drink = 0.6 oz pure alcoho l) 1/mo Sex Assigned at Date Recorded Not on file documented as of this encounter Consult Notes Hebert Joiner - 08/07/2006 12:00 AM SPREADER SUBJECTIVE: The patient comes in today for a fourth treatment to the tattoo on her right lateral distal ankle. Again reviewed diagnosis, treatment options and complications with her including but not limited to inefficacy, scarring, discomfort, infection. With her informed consent, procedure was done. She understands there will be a charge of $97 for Viagogo and another separate amount for Mogi. PROCEDURE: With all parties present, using appropriate eye protection and using a [employer] Q-switch Nd:YAG laser at 1064 setting, first at mostly 600 millijoules and then for a few areas 700 millijoules using a 2 millimeter handpiece at 5 pulses per second, destructive laser energy was administered to the remnant of the blue-black tattoo. There was some noted scarring and hyperpigmentation in the central heart (the red color was pretty much gone) and a little bit at either end of the otherwise blue-black inked tattoo. There was substantial reduction of the pigment, however, and the patient was generally happy with the result and wished to proceed forward with further treatment, which was done today as noted. Aftercare instructions reviewed. Petroleum jelly and dressing applied. She will return to clinic at her discretion in January, possibly April also. 08/07/2006 8:43 A cc: ADER documented in this encounter Plan of Treatment Not on filedocumented as of this encounter Visit Diagnoses Diagnosis Other plastic surgery for unacceptable c osmetic appearance Other dyschromia documented in this encounter Care Teams Mold Breaker Relationship Specialty Start Date End Date Madisyn Smalls, DONNIE, RESIDENT IN DIAGNOSTIC RADIOLOGY PCP - General 03/03/02 11/04/10 [address] [place] [address] documented as of this encounter
--- OUTSIDE RECORDS SUMMARY | 2022-04-23 15:37 | XMS_ITS | Encounter Summary ---
:1970 Author Organization [facility] Address [address] [place] [address] Care Team Providers Name Role Phone Madisyn Smalls APRN, CNP Primary Care Provider [phone] Encounter Details Date Type Department Care Team Description 04/02/2004 Orders Only [place] [facility] Madisyn Smalls, [address] [facility] AGUSTIN FIELDS [place], [place] [address] [facility] [phone] [place] [address] (Wo rk) Social History Tobacco [...] Name Priority Date/Time Associated Diagnosis Comme nts COMPLETE BLOOD Routine 04/02/2004 1:45 PM Results for this COUNT-W/DIFF CDT procedure are i n the results section. CHOLESTEROL, TOTAL Routine 04/02/2004 1:45 PM Res ults for this AND HDL CDT procedure are i n the results section. TSH, SENSITIVE Routine 04/02/2004 1:45 PM Results for this (WITH REFLEX) CDT procedure are in the results section. GLUCOSE Routine 04/02/2004 1:45 PM Results f or this CDT procedure are i n the results section. documented in this encounter Results TSH, SENSITIVE (04/02/2004 1:45 PM CDT) athologist Signature TSH 1.52 0.30 - 5.00 [facility] uIU/ml Thyroid Meds No [facility] Specimen Anatomical Collection Method Collection Time Receive d Time (Source) Location / / Volume Laterality 04/02/2004 1:45 PM 4 1:46 CDT PM CDT Madisyn Smalls APRN, CNP LAB_1 Performing Organization Address City/[facility] Code Phon e Number [facility] [phone] [facility] [address] [phone] HEMOGRAM/PLTS/DIFF (04/02/2004 1:45 PM CDT) athologist Signature WBC 5.8 3.6 - 11.0 [facility] k/ul RBC 5.06 4.0 - 5.2 [facility] M/ul Hemoglobin 15.0 12.0 - [facility] 16.0 g/dl HCT 43.5 36.0 - [facility] 46.0 % MCV 86.0 80 - 100 [facility] fl MCH 29.6 26 - 34 pg [facility] MCHC 34.4 32 - 36 % [facility] RDW 12.6 11.5 - [facility] 14.5 % Platelets 256 150 - 450 [facility] k/ul PMN/Band 62 43 - 72 % [facility] Lymph 26 17 - 43 % [facility] [place] 10 4 - 12 % [facility] Eos 1 0 - 8 % [facility] Baso 1 0 - 1 % [facility] Neutrophil 3.6 1.8 - 7.7 [facility] Absolute k/ul Lymph Absolute 1.5 1.0 - 4.8 [facility] k/ul [place] Absolute 0.6 0.1 - 0.7 [facility] k/ul Eos Absolute 0.1 0.0 - 0.5 [facility] k/ul Baso Absolute 0.0 0.0 - 0.2 [facility] k/ul Specimen Anatomical Collection Method Collection Time Receive d Time (Source) Location / / Volume Laterality 04/02/2004 1:45 PM 4 1:46 CDT PM CDT Madisyn Smalls APRN, CNP LAB_1 Performing Organization Address City/State/ZIP Code Phon e Number [facility] [phone] [facility] [address] [address] GLUCOSE - RANDOM < 8HR FASTING (V77.1) (04/02/2004 1:45 PM CDT) P athologist Signature Glucose 73 65 - 115 [facility] mg/dl Hours Fasting 0 hours [facility] Specimen Anatomical Collection Method Collection Time Receive d Time (Source) Location / / Volume Laterality 04/02/2004 1:45 PM 4 1:46 CDT PM CDT Madisyn Smalls APRN, CNP LAB_1 Performing Organization Address [facility]/ZIP Code Phon e Number [facility] [phone] [facility] [address] [place] [phone] (ABNORMAL) CHOLESTEROL, TOTAL AND HDL (04/02/2004 1:45 PM CDT) Component Value Ref Test Analysis Performed At [facility] gist Range Method Time Signature Cholesterol 208 (H) <200 [facility] mg/dl Cholesterol Result should not be interpreted without the patient's [facility] history of Cholesterol cardiovascular [facility] risk factors. HDL 61 >35 [facility] mg/dl Specimen Anatomical Collection Method Collection Time Receive d Time (Source) Location / / Volume Laterality 04/02/2004 1:45 PM 4 1:46 CDT PM CDT Madisyn Smalls APRN, CNP LAB_1 Performing Organization Address City/[facility]/ZIP [facility] Phon e Number [facility] [phone] [facility] [address] [place] [phone] documented in this encounter Visit Diagnoses Not on filedocumented in this encounter Care Teams Records Management Clerk Relationship Specialty Start Date End Date Madisyn Smalls APRN, AGUSTIN PCP - General 03/03/02 11/04/10 [address] [place] [address] documented as of this encounter
--- OUTSIDE RECORDS SUMMARY | 2022-04-23 15:37 | XMS_ITS | Encounter Summary ---
:1970 Author Organization [facility] Address [address] [place] [address] Care Team Providers Name Role Phone Madisyn Smalls APRN, AGUSTIN Primary Care Provider [phone] Encounter Details Date Type Department Care Team Description 03/08/2003 Office Visit [facility], BENIGN SARAH SKIN LEG; [address] Lisa Ambrosio MD INTEGUMENT TISS SYMP [place], [place] [address] [address] [facility] [phone] [place], [place] [id number] Social History Tobacco Use Types Packs/Day Years Used Date Smoking Tobacco: Never Assessed Sex Assigned at Date Recorded Not on file documented as of this encounter Progress Notes Hebert Joiner - 03/08/2003 12:00 AM CDTSUBJECTIVE: The patient comes in today for a number of problems. One is suture removal for the biopsies done on 03/03/03 in addition to discussion of those. In addition, we were going to shave/remove the dermatofibroma on her left lateral lower leg, because she hits it with the razor. She understands, however, there will be a scar and the dermatofibroma could regrow, and so both from a functional and from a cosmetic standpoint there is no guarantees that she'll be better off than where she is now before the surgery. With that acceptance and understanding, procedure was done. Shave removal of dermatofibroma left lower leg accomplished and submitted. 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 Total time 10 minutes, 5 minutes counseling. P cc: documented in this encounter Plan of Treatment Not on filedocumented as of this encounter Visit Diagnoses Diagnosis Benign neoplasm of skin of lower limb, i ncluding hip Other symptoms involving skin and integu mentary tissues documented in this encounter Care Teams Door Fitter Relationship Specialty Start Date End Date Madisyn Smalls APRN, FUEL INJECTION SERVICER PCP - General 03/03/02 11/04/10 [address] [place] [address] documented as of this encounter
--- OUTSIDE RECORDS SUMMARY | 2022-04-23 15:37 | XMS_ITS | Encounter Summary ---
:1970 Author Organization [facility] Address [address] [place] [address] Care Team Providers Name Role Phone Madisyn Smalls APRN, CNP Primary Care Provider [phone] Reason for Visit Reason Comments Sore Throat Encounter Details Date Type Department Care Team Description 08/27/2005 Office Visit [facility] Nursing Nurse, Adult Av ACUT E PHARYNGITIS(SORE Department THROAT) (Primary Dx) [address] [id number] 24 Social History Tobacco Use Types Packs/Day Years Used Date Smoking Tobacco: Never Alcohol Use Standard Drinks/Week Comments Not Asked 0 (1 standard drink = 0.6 oz pure alcoho l) 1/mo Sex Assigned at Date Recorded Not on file documented as of this encounter Last Filed Vital Signs Vital Sign Reading Time Taken Comments Blood Pressure - - Pulse - - Temperature 37.9 ??C (100.3 ??F) 08/27/2005 4:15 PM SCALLOP DREDGER Respiratory Rate - - Oxygen Saturation - - Inhaled Oxygen Concentration - - Weight - - Height - - Body Mass Index - - documented in this encounter Nursing Notes 08/27/2005 4:15 PM CST >> CHRISTA RASHEED 08/27/2005 4:49 pm S: Josie Booker complains of sore throat lasting 2 day(s). Other presenting symptoms include: NONE Fever? 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 Phone number: [phone] (home) [phone] (work), A: Sore Throat P: Wait for rapid strep results Christa Rasheed LPN, 4:45 PM 08/27/2005 documented in this encounter Plan of Treatment Not on filedocumented as of this encounter Procedures Procedure Name Priority Date/Time Associated Diagnosis Comme nts STREP GRP A, RAPID Waiting 08/27/2005 4:30 PM Acute Res ults for this SCREEN SCALLOP DREDGER Pharyngitis(Sore procedure a re in Throat) the results section. documented in this encounter Results (ABNORMAL) STREP GRP A, RAPID SCREEN (08/27/2005 4:30 PM SCALLOP DREDGER) [facility] Method Time Signature Patient Home None [employer] Phone # Patient Work None [employer] Phone # Grp A Rapid Positive NEG [employer] Screen (A) Specimen Anatomical Collection Method Collection Time Receive d Time (Source) Location / / Volume Laterality 08/27/2005 4:30 PM 6 4:31 SCALLOP DREDGER PM SCALLOP DREDGER Jose E Angelse MD LAB_1 Performing Organization Address City/State/ZIP Code Phon e Number [facility] [phone] [employer] [address] [place] [phone] documented in this encounter Visit Diagnoses Diagnosis Acute pharyngitis - Primary documented in this encounter Care Teams Electric Motor Control Assembler Relationship Specialty Start Date End Date Madisyn Smalls APRN, OIL TESTER PCP - General 03/03/02 11/04/10 [address] [place], [place] [id number] documented as of this encounter
--- OUTSIDE RECORDS SUMMARY | 2022-04-23 15:37 | XMS_ITS | Encounter Summary ---
:1970 Author Organization [facility] Address [address], [place] [address] Care Team Providers Name Role Phone Madisyn Smalls APRN, CNP Primary Care Provider [phone] Encounter Details Date Type Department Care Team Description 08/26/2004 Office Visit [facility] ACUTE URI NOS; [address] [facility] ACUTE SINUSITIS NOS [place], [place] [address] Social History Tobacco Use Types Packs/Day Years Used Date Smoking Tobacco: Never Assessed Alcohol Use Standard Drinks/Week Comments Not Asked 0 (1 standard drink = 0.6 oz pure alcoho l) Sex Assigned at Date Recorded Not on file documented as of this encounter Last Filed Vital Signs Vital Sign Reading Time Taken Comments Blood Pressure 116/70 08/26/2004 2:15 PM TREASURER SAVINGS BANK Pulse 82 08/26/2004 2:15 PM TREASURER S[employer]INGS [employer]ANK Temperature 37.2 ??C (98.9 ??F) 08/26/2004 2:15 PM TREASURER S[employer]INGS BANK Respiratory Rate 14 08/26/2004 2:15 PM TREASURER SAVINGS BANK Oxygen Saturation - - Inhaled Oxygen Concentration - - Weight - - Height - - Body Mass Index - - documented in this encounter Progress Notes 08/26/2004 2:15 PM TREASURER S[employer] Room # na Rooming time: 2:27 PM Josie Booker is here today for sinus pressure one week and cough three days. Accompanied by son. History is obtained from patient. O2 Sat.: not done. Peak Flow: not done. AccuCheck: not done. Weight taken with patient clothed? not done. Temperature source: ORAL. Pulse source: radial B/P was : taken on the right arm. B/P cuff size:Regular. Tobacco Status reviewed? (see History Social-Substance) -YES Lives in a smoking environment : NO. Vision checked: not done, performed and documented in nurse's note. and not performed. Last Tetanus: utd, Immunizations up to date: YES. In the past year, have you been physically or emotionally mistreated by someone important to you? -NO cloak room attendant offered -NOT APPLICABLE. Health Education given -NO. Primary provider: Madisyn Smalls NP Contact phone number [phone] (home) [phone] (work) Alternate phone number - Lauren Gutierrez LPN 08/26/2004 2:27 PM Current outpatient prescriptions: MULTIPLE VITAMIN TABS,Take 1 tablet by mouth once a day,Disp: 30,Rfl: prn VITAMIN C 500MG ORAL TABS,1 tab daily,Disp: 30,Rfl: 0 VITAMIN E 400UNIT ORAL CAPS,1 tab daily,Disp: 30,Rfl: 0 Nka, , Luzma Marquez - 08/26/2004 12:00 AM CSTSUBJECTIVE: Tgmlak-fpo-zskz-old who has had a cold for about a week, now in the last few days has developed ongoing pounding sinus headache, increased cough at nighttime. Temp was 101 this a.m. Elevated temperature has only been in the last 2 days despite respiratory symptoms for over a week. OBJECTIVE: Temperature is 98.9 currently. She looks uncomfortable and is definitely tender to percussion over the maxillary sinus areas. No lid edema or erythema. Nasal exam does show evidence of purulent secretions in the area of the sinus ostia. Throat with nonspecific findings, no particular adenopathy. Lungs are clear. ASSESSMENT: Sinusitis complicating viral respiratory infection. PLAN: She's placed on amoxicillin. She is told this is to help with sinusitis, but it will not likely help with the cough and anterior burning type chest discomfort which likely is viral. Since presentation with her adenovirus is suspected as the primary infection. 11:13 P cc: [employer] documented in this encounter Plan of Treatment Not on filedocumented as of this encounter Visit Diagnoses Diagnosis Acute upper respiratory infections of un specified site Acute sinusitis, unspecified documented in this encounter Care Teams Embossing Toolsetter Relationship Specialty Start Date End Date Madisyn Smalls, MARKETING ROTATION ASSOCIATE, RETAIL ASSISTANT STORE MANAGER PCP - General 03/03/02 11/04/10 [address] [place] [address] documented as of this encounter
--- OUTSIDE RECORDS SUMMARY | 2022-04-23 15:37 | XMS_ITS | Encounter Summary ---
:1970 Author Organization [facility] Address [address], [place] [address] Care Team Providers Name Role Phone Madisyn Smalls APRN, CNP Primary Care Provider [phone] Encounter Details Date Type Department Care Team Description 08/26/2004 Emergency Room [facility] Luzma Marquez, Return to work/[facility] MD arreguin [address] [address] [place], [place] [phone] [address] Social History Tobacco Use Types Packs/Day Years Used Date Smoking Tobacco: Never Assessed Alcohol Use Standard Drinks/Week Comments Not Asked 0 (1 standard drink = 0.6 oz pure alcoho l) Sex Assigned at Date Recorded Not on file documented as of this encounter Progress Notes Luzma Marquez - 08/26/2004 12:00 AM PRE CODER CODER documented in this encounter Plan of Treatment Not on filedocumented as of this encounter Visit Diagnoses Not on filedocumented in this encounter Care Teams Audit Partner Relationship Specialty Start Date End Date Madisyn Smalls APRN, CNP PCP - General 03/03/02 11/04/10 [address] [place] [address] documented as of this encounter
--- OUTSIDE RECORDS SUMMARY | 2022-04-23 15:37 | XMS_ITS | Encounter Summary ---
:1970 Author Organization [facility] Address [address] [place] [address] Care Team Providers Name Role Phone Madisyn Smalls APRN, CNP Primary Care Provider [phone] Encounter Details Date Type Department Care Team Description 08/07/2006 Correspondence [facility], [facility] [facility] MD Hebert NON-COVERAGE/BENEFICI S. [address] AMELIE AGREEMENT [place], [place] [address] [place], [place] [phone] [address] Social History Tobacco Use Types Packs/Day Years Used Date Smoking Tobacco: Never Alcohol Use Standard Drinks/Week Comments Not Asked 0 (1 standard drink = 0.6 oz pure alcoho l) 1/mo Sex Assigned at Date Recorded Not on file documented as of this encounter Progress Notes Hebert Joiner - 08/07/2006 12:00 AM COOK MAYONNAISE MAYONNAISE documented in this encounter Plan of Treatment Not on filedocumented as of this encounter Visit Diagnoses Not on filedocumented in this encounter Care Teams Forward Air Controller/Air Officer Relationship Specialty Start Date End Date Madisyn Smalls APRN, CNP PCP - General 03/03/02 11/04/10 [address] [place] [address] documented as of this encounter
--- OUTSIDE RECORDS SUMMARY | 2022-04-23 15:38 | XMS_ITS | Encounter Summary ---
:1970 Author Organization [facility] Address [address] [place] [address] Care Team Providers Name Role Phone Madisyn Smalls APRN, CNP Primary Care Provider [phone] Encounter Details Date Type Department Care Team Description 02/22/2003 Orders Only [facility] [place] [address] [place], [place] [address] U[facility]SSIGNED CLINIC [phone] 00 00, [address] Social History Tobacco Use Types Packs/Day Years Used Date Smoking Tobacco: Never Assessed Sex Assigned at Date Recorded Not on file documented as of this encounter Plan of Treatment Not on filedocumented as of this encounter Procedures Procedure Name Priority Date/Time Associated Diagnosis Comme nts STREP GRP A, RAPID Waiting 02/22/2003 11:36 AM Re sults for this SCREEN CDT procedure are i n the results section. documented in this encounter Results (ABNORMAL) RAPID, GPA STREP SCREEN (WAITI (02/22/2003 11:36 AM CDT) [facility] gist Method Time Signature Patient Home [id number] [employer] Phone # Patient Work None [employer] Phone # Grp A Rapid Positive (A) [employer] Screen Specimen Anatomical Collection Method Collection Time Receive d Time (Source) Location / / Volume Laterality 02/22/2003 11:36 02/22/2003 AM CDT 11:37 AM CDT [facility]_1 Performing Organization Address City/State/ZIP Code Phon e Number [facility] [phone] [facility] [address] [place] [address] [place] [address] documented in this encounter Visit Diagnoses Not on filedocumented in this encounter Care Teams Power Nut Runner Operator Relationship Specialty Start Date End Date Madisyn Smalls APRN, FOAM RUBBER MOLDER PCP - General 03/03/02 11/04/10 [address] [place], [place] [id number] documented as of this encounter
--- OUTSIDE RECORDS SUMMARY | 2022-04-23 15:38 | XMS_ITS | Encounter Summary ---
:1970 [facility] Address [address] [place] [address] Care Team Providers Name Role Phone Madisyn Smlals APRN, CNP Primary Care Provider [phone] Encounter Details Date Type Department Care Team Description 01/20/2003 Office Visit [facility] Madisyn Smalls, Practice [facility] [address] [facility] [address] [place], [place] [address] [place] [address] [phone] (Wo rk) Social History Tobacco Use Types Packs/Day Years Used Date Smoking Tobacco: Never Assessed Sex Assigned at Date Recorded Not on file documented as of this encounter Progress Notes Madisyn Smalls - 01/20/2003 12:00 AM CDT documented in this encounter Plan of Treatment Not on filedocumented as of this encounter Visit Diagnoses Not on filedocumented in this encounter Care Teams Railroad Signal And Switch Operator Relationship Specialty Start Date End Date Madisyn Smalls APRN, CNP PCP - General 03/03/02 11/04/10 [address] [place] [address] documented as of this encounter
--- OUTSIDE RECORDS SUMMARY | 2022-04-23 15:38 | XMS_ITS | Encounter Summary ---
:1970 Author Organization [facility] Address [address], [place] [address] Care Team Providers Name Role Phone Madisyn Smalls APRN, CNP Primary Care Provider [phone] Encounter Details Date Type Department Care Team Description 09/11/2002 Office Visit [facility] INUSITIS NOS; [place] DYSFUNCT EUSTACHIAN TUBE [address] [place], [place] [address] Social History Tobacco Use Types Packs/Day Years Used Date Smoking Tobacco: Never Assessed Sex Assigned at Date Recorded Not on file documented as of this encounter Last Filed Vital Signs Vital Sign Reading Time Taken Comments Blood Pressure 98/66 09/11/2002 10:00 AM PRODUCT SUPPORT SPECIALIST Pulse 76 09/11/2002 10:00 AM PRODUCT SUPPORT SPECIALIST Temperature 37.6 ??C (99.6 ??F) 09/11/2002 10:00 AM PRODUCT SUPPORT SPECIALIST Respiratory Rate 12 09/11/2002 10:00 AM PRODUCT SUPPORT SPECIALIST Oxygen Saturation - - Inhaled Oxygen Concentration - - Weight - - Height - - Body Mass Index - - documented in this encounter Progress Notes 09/11/2002 10:00 AM PRODUCT SUPPORT SPECIALIST Room # n/a Rooming time: 10:08 AM Josie Booker is here today for congestion, watery eyes, and sore throat. Accompanied by unaccompanied. History is obtained from patient. O2 Sat.: not done. Peak Flow: not done. AccuCheck: not done. Weight taken with patient clothed? not done. Temperature source: ORAL. Pulse source: radial B/P was taken on the right arm arm. B/P cuff size:Regular. Tobacco Status reviewed? (see History Social-Substance) -NO Lives in a smoking environment : NO. Vision checked: not done, not done. Last Tetanus: up to date, Immunizations up to date: YES. In the past year, have you been physically or emotionally mistreated by someone important to you? -NO drying room attendant offered -NOT APPLICABLE. Health Education given -NO. Primary provider: Madisyn Smalls NP Contact phone number [phone] (home) [phone] (work) Alternate phone number . Ciera Meza RN 09/11/2002 10:08 AM Epifanio Omaira - 09/11/2002 12:00 AM CSTSUBJECTIVE: 32-year-old lady presenting with nasal congestion, sore throat, postnasal drip, thick yellow nasal discharge, facial pain and pressure and headache, and eye pain. She has had the symptoms for one week. She has a low-grade fever. No cough. Her ears are very plugged up. She has had similar symptoms in the past and she believes she has a sinus infection. She hasn't had very many sinus infections but she has had a few. She had a previous episode where she developed an ear infection with middle ear fluid and plugged up ears that required two course of antibiotics and several weeks to clear up. She has a history of repeated ear infections and PE tubes as a child. OBJECTIVE: Temperature is 99.6. Blood pressure is normal. She does not appear to be toxic. She is not in any acute distress. Nasal mucosa is boggy and somewhat inflamed. Throat looks normal. Rapid strep test is negative. The tympanic membranes are both thin and retracted with scarring and tympanosclerotic plaques, suggestive of repeated otitis media in the past and consistent with a history of PE tubes. I don't see any fluid at this point, nor do I see any evidence of inflammation or infection. She has some facial pain and tenderness in the maxillary sinus areas and ethmoid areas bilaterally. ASSESSMENT: Acute sinusitis and eustachian tube dysfunction. PLAN: She is advised to continue with decongestants, possibly even use topical nasal decongestant such as Afrin for a few days. She is treated with amoxicillin 500 mg po TID for 10 days. She is advised to follow up if not significantly better over the next few days. IN SUMMARY: ACUTE SINUSITIS AND EUSTACHIAN TUBE DYSFUNCTION cc: UCT SUPPORT SPECIALIST documented in this encounter Plan of Treatment Not on filedocumented as of this encounter Visit Diagnoses Diagnosis Acute sinusitis, unspecified Dysfunction of eustachian tube Dysfunction of Eustachian tube documented in this encounter Care Teams Safety Investigator Relationship Specialty Start Date End Date Madisyn Smalls APRN, END TOUCHING MACHINE OPERATOR PCP - General 03/03/02 11/04/10 [address] [place] [address] documented as of this encounter
--- OUTSIDE RECORDS SUMMARY | 2022-04-23 15:38 | XMS_ITS | Encounter Summary ---
:1970 [facility] Address [address] [place] [address] Care Team Providers Name Role Phone Madisyn Smalls APRN, CNP Primary Care Provider [phone] Encounter Details Date Type Department Care Team Description 11/01/2002 Telephone [place] [facility] Madisyn Smalls, Harris PRN, Practice [facility] [address] [facility] [address] [place], [place] [address] [place] [address] [phone] (Wo rk) Social History Tobacco Use Types Packs/Day Years Used Date Smoking Tobacco: Never Assessed Sex Assigned at Date Recorded Not on file documented as of this encounter Nursing Notes Madisyn Smalls - 11/01/2002 12:00 AM ASSISTANT PRODUCTION MANAGER STANT PRODUCTION MANAGER documented in this encounter Plan of Treatment Not on filedocumented as of this encounter Visit Diagnoses Not on filedocumented in this encounter Care Teams .Net Architect Relationship Specialty Start Date End Date Madisyn Smalls APRN, CNP PCP - General 03/03/02 11/04/10 [address] [place] [address] documented as of this encounter
--- OUTSIDE RECORDS SUMMARY | 2022-04-23 15:38 | XMS_ITS | Encounter Summary ---
:1970 Author Organization [facility] Address [address] [place] [address] Care Team Providers Name Role Phone Unassigned, Provider Primary Care Provider Unavailable Encounter Details Date Type Department Care Team Description 12/27/2000 Office Visit [facility] ACUTE SINUSITIS NOS [address] [place], [place] [address] Social History Tobacco Use Types Packs/Day Years Used Date Smoking Tobacco: Never Assessed Sex Assigned at Date Recorded Not on file documented as of this encounter Progress Notes Omaira Godfrey - 12/27/2000 12:00 AM CDTS: A 30-year-old lady presenting with symptoms of nasal congestion, nasal discharge, watery eyes, facial pressure, frontal headache of two weeks' duration. Yellow-green nasal discharge especially in the morning. Started out with a sore throat. Has a very slight dry cough mostly from postnasal drip but no chest congestion or chest cough. No fever or chills. Her daughter has a sinus infection as well and although neither the patient or her daughter has had sinus allergies in the past allergies are being considered in her daughter's case. She herself does not have history of allergies. O: ON EXAM: Temperature is 98.1, pulse 72, respiratory rate 60, and blood pressure 100/70. Patient's tympanic membranes reveal scarring in the tympanic membranes and tympanosclerotic plaques consistent with the patient's history of previous ear infections and ear surgery. The rest of her exam is nonrevealing. Her nasal mucosa is somewhat boggy, inflamed. THROAT: Looks fairly normal. NECK: Is supple. LUNGS: Are clear. HEART: Is regular and rhythmic. S1, S2 without murmur. She has no facial puffiness or redness but some tenderness on pressure. A: Acute sinusitis. P: Amoxicillin 500 mg po tid for ten days. Follow-up if not significantly better in a few days. IN SUMMARY: ACUTE SINUSITIS cc: documented in this encounter Plan of Treatment Not on filedocumented as of this encounter Visit Diagnoses Diagnosis Acute sinusitis, unspecified documented in this encounter Care Teams Slip Tender Relationship Specialty Start Date End Date Unassigned, Provider PCP - General 07/21/00 03/02/[address] [place] [address] documented as of this encounter
--- OUTSIDE RECORDS SUMMARY | 2022-04-23 15:38 | XMS_ITS | Encounter Summary ---
:1970 Author Organization [facility] Address [address] [place] [address] Care Team Providers Name Role Phone Madisyn Smalls APRN, CNP Primary Care Provider [phone] Encounter Details Date Type Department Care Team Description 05/17/2002 [facility] Madisyn Smalls G YNECOLOGIC EXAMINATION; Practice [facility] ACUTE URI NOS; [address] [facility] [address] [facility] [place] [address] [phone] (Wo rk) Social History Tobacco Use Types Packs/Day Years Used Date Smoking Tobacco: Never Assessed Sex Assigned at Date Recorded Not on file documented as of this encounter Progress Notes Madisyn Smalls - 05/17/2002 12:00 AM CDTS: 31 year-old female presents to clinic for routine health maintenance, Pap and pelvic. She has regular monthly menses, no IMB, no PCB, no dyspareunia. and in a monogamous relationship. Her has had a vasectomy. No problems with vaginal itching or discharge. No problems with depression or abuse. 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 Things are going well between them. She has no chronic medical problems. She has a history of tonsillectomy, adnoidectomy, back surgery, right breast biopsy which was benign in 1997, bilateral breast implants in year 1999. She has been having problems with sinusitis and has completed Amoxicillin and azithromycin. Her head is feeling slightly better, she has decreased hearing out of her left ear, feels as though it is draining. Some postnasal drainage, no fever, chills or sweats. Medications: Sudafed. No known drug allergies. Family history: Mother migraines, paternal grandmother breast cancer. Review of systems: General state of health has been good except for above upper respiratory infection. No fever, chills or sweats. No chest pain or palpitations or dizziness. No shortness of breath, cough or wheezing. No abdominal pain. cc: Madisyn Smalls - 05/17/2002 12:00 AM CDTS: 31 year-old female presents to clinic for routine health maintenance, Pap and pelvic. She has regular monthly menses, no IMB, no PCB, no dyspareunia. and in a monogamous relationship. Her has had a vasectomy. No problems with vaginal itching or discharge. No problems with depression or abuse. 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 Things are going well between them. She has no chronic medical problems. She has a history of tonsillectomy, adenoidectomy, back surgery, right breast biopsy which was benign in 1997, bilateral breast implants in year 1999. She has been having problems with sinusitis and has completed Amoxicillin and azithromycin. Her head is feeling slightly better. She has decreased hearing out of her left ear, feels as though it is draining. Some postnasal drainage. No fever, chills or sweats. Medications: Sudafed. No known drug allergies. Family history: Mother migraines, paternal grandmother breast cancer. Review of systems: General state of health has been good except for above upper respiratory infection. No fevers, chills or sweats. No chest pain or palpitations or dizziness. No shortness of breath, cough or wheezing. No abdominal pain, diarrhea, constipation or melena. No dysuria or hematuria. O: Weight 135.8 pounds, temperature 97, pulse 78, respiratory rate 12, blood pressure 108/70. Alert, oriented and cooperative, well groomed, in no apparent distress. PERRLA. OP clear. Tympanic membranes pearly gallegos, translucent. The left tympanic membrane is slightly bulging with clear serous fluid behind the tympanic membrane. There is no erythema or purulence. Neck without adenopathy or thyromegaly. Heart regular rate and rhythm. Lungs clear to auscultation. Breasts are palpated, exam is limited due to implants. Abdomen flat, no tenderness or masses. External genitalia negative. Vagina pink, moist and without lesions or discharge. Pap taken. Negative CMT. Uterus small, firm, mobile, non-tender. No adnexal fullness or tenderness. A: 1) Routine health maintenance, Pap and pelvic. Breast exam. 2) LSOM. P: 1) Continue with Sudafed, hot packing, follow-up in clinic if symptoms don't completely resolve over the next two weeks. 2) Return to clinic in one year for routine health maintenance. Encouraged monthly self breast exam. She understands and agrees with this plan. IN SUMMARY: ROUTINE HEALTH MAINTENANCE/LSOM cc: documented in this encounter Plan of Treatment Not on filedocumented as of this encounter Visit Diagnoses Diagnosis Gynecological examination Acute upper respiratory infections of un specified site Screening for malignant neoplasm of the cervix documented in this encounter Care Teams Final Block Press Operator Relationship Specialty Start Date End Date Madisyn Smalls, DONNIE, CRAFT DEMONSTRATOR PCP - General 03/03/02 11/04/10 [address] [place] [address] documented as of this encounter
--- OUTSIDE RECORDS SUMMARY | 2022-04-23 15:38 | XMS_ITS | Encounter Summary ---
:1970 Author Organization [facility] Address [address], [place] [address] Care Team Providers Name Role Phone Madisyn Smalls APRN, CNP Primary Care Provider [phone] Encounter Details Date Type Department Care Team Description 06/17/2002 Office Visit [facility] Jose E [place] [address] [place] [address] ANITHA [place] [address] [place], [place] [phone] [address] Social History Tobacco Use Types Packs/Day Years Used Date Smoking Tobacco: Never Assessed Sex Assigned at Date Recorded Not on file documented as of this encounter Progress Notes Jose E Angeles - 06/17/2002 12:00 AM TRAINING DEVELOPER NING DEVELOPER documented in this encounter Plan of Treatment Not on filedocumented as of this encounter Visit Diagnoses Diagnosis VACCINE FOR INFLUENZA documented in this encounter Care Teams Air Conditioning Manager Relationship Specialty Start Date End Date Madisyn Smalls APRN, CNP PCP - General 03/03/02 11/04/10 [address] [place] [address] documented as of this encounter
--- OUTSIDE RECORDS SUMMARY | 2022-04-23 15:38 | XMS_ITS | Encounter Summary ---
:1970 Author Organization [facility] Address [address], [place] [address] Care Team Providers Name Role Phone Unassigned, Provider Primary Care Provider Unavailable Encounter Details Date Type Department Care Team Description 03/09/2001 Office Visit [facility] HEADACHE ; Practice [facility] VISUAL DISTURBANCE NOS [address] [place] [address] [place] [address] [place] [address] Social History Tobacco Use Types Packs/Day Years Used Date Smoking Tobacco: Never Assessed Sex Assigned at Date Recorded Not on file documented as of this encounter Progress Notes Meliza Bandar Diallo - 03/09/2001 12:00 AM CDTS: The patient is here for headache and blurred vision. Apparently last night she had a 20 minute episode of blurred vision in her left visual field. She noticed a C shaped area of blurring of her vision which resolved and then was followed by frontal headache. No nausea, vomiting or diarrhea. She had a similar episode a month ago in the evening, similar to the timing of her episode yesterday. She is uncertain as to whether previous episode of visual disturbance was followed by a headache. She does have a long past history of headaches. She also has family history with her mother having severe migraines. No numbness or weakness. O: Alert, in no acute distress. Blood pressure 120/80. Temperature 98.2. Pulse is 80 and regular. HEENT: exam reveals PERRL, extraocular movements intact. . funduscopic exam reveals sharp disk margins. Visual aly are intact. Throat is clear. Neck is supple without adenopathy. Cranial nerves II-XII are grossly intact. Sensory and motor exam within normal limits. Deep tendon reflexes 2+ bilaterally in the upper and lower extremities. Negative Romberg. Negative tandem gait. A: Symptoms consistent with possible classic migraine. P: Findings discussed at length with the patient. Ibuprofen prn. She is encouraged to keep a diary of any further visual disturbances and follow up immediately with any increase in symptoms including further visual changes, numbness or weakness. Patient understands and is in agreement with the plan. IN SUMMARY: HEADACHE. VISUAL DISTURBANCE. cc: documented in this encounter Plan of Treatment Not on filedocumented as of this encounter Visit Diagnoses Diagnosis Headache(784.0) Headache Unspecified visual disturbance documented in this encounter Care Teams Water Main Pipe Layer Relationship Specialty Start Date End Date Unassigned, Provider PCP - General 07/21/00 03/02/[address] [place] [address] documented as of this encounter
--- OUTSIDE RECORDS SUMMARY | 2022-04-23 15:38 | XMS_ITS | Encounter Summary ---
:1970 Author Organization [facility] Address [address] [place] [address] Care Team Providers Name Role Phone Madisyn Smalls APRN, CNP Primary Care Provider [phone] Encounter Details Date Type Department Care Team Description 09/11/2002 Orders Only [facility] [address] [place], [place] [address] Social History Tobacco Use Types Packs/Day Years Used Date Smoking Tobacco: Never Assessed Sex Assigned at Date Recorded Not on file documented as of this encounter Plan of Treatment Not on filedocumented as of this encounter Procedures Procedure Name Priority Date/Time Associated Diagnosis Comme nts STREP GRP A, RAPID Waiting 09/11/2002 10:23 AM Re sults for this SCREEN NURSE PRACTITIONER HOME ASSESSMENTS procedure are i n the results section. documented in this encounter Results RAPID, GPA STREP SCREEN (WAITI (09/11/2002 10:23 AM NURSE PRACTITIONER HOME ASSESSMENTS) [facility] Method Time Signature Patient Home None [facility] Phone # Patient Work None [employer] Phone # Grp A Rapid Negative [facility] Screen Grp A Culture Negative [employer] Final Specimen Anatomical Collection Method Collection Time Receive d Time (Source) Location / / Volume Laterality 09/11/2002 10:23 09/11/2002 AM NURSE PRACTITIONER HOME ASSESSMENTS 10:24 AM NURSE PRACTITIONER HOME ASSESSMENTS [facility] LAB_1 Performing Organization Address City/State/ZIP Code Phon e Number [facility] [phone] [employer] [address] [address] documented in this encounter Visit Diagnoses Not on filedocumented in this encounter Care Teams Parts Control Clerk Relationship Specialty Start Date End Date Madisyn Smalls, DONNIE, DIGITAL MEDIA BUYER PCP - General 03/03/02 11/04/10 [address] [place] [address] documented as of this encounter
--- OUTSIDE RECORDS SUMMARY | 2022-04-23 15:38 | XMS_ITS | Encounter Summary ---
:1970 Author Organization [facility] Address [address] [place] [address] Care Team Providers Name Role Phone Unassigned, Provider Primary Care Provider Unavailable Encounter Details Date Type Department Care Team Description 06/23/2001 Office Visit [facility], Dorothy Mccarthy FOR INFLUENZA Practice [address] [facility] [address] [facility] [address] [address] [place] [address] (Wo rk) Social History Tobacco Use Types Packs/Day Years Used Date Smoking Tobacco: Never Assessed Sex Assigned at Date Recorded Not on file documented as of this encounter Plan of Treatment Not on filedocumented as of this encounter Visit Diagnoses Diagnosis VACCINE FOR INFLUENZA documented in this encounter Care Teams Core Paster Relationship Specialty Start Date End Date Unassigned, Provider PCP - General 07/21/00 03/02/02 [address] [place] [address] documented as of this encounter
--- OUTSIDE RECORDS SUMMARY | 2022-04-23 15:38 | XMS_ITS | Encounter Summary ---
:1970 Author Organization [facility] Address [address] [place] [address] Care Team Providers Name Role Phone Luis Smalls APRN, CNP Primary Care Provider [phone] Encounter Details Date Type Department Care Team Description 05/17/2002 Orders Only Luis Smalls APRN, [place]UST[place] [address] [place] [address] (Wo rk) Social History Tobacco Use Types Packs/Day Years Used Date Smoking Tobacco: Never Assessed Sex Assigned at Date Recorded Not on file documented as of this encounter Plan of Treatment Not on filedocumented as of this encounter Procedures Procedure Name Priority Date/Time Associated Diagnosis Comme nts PAP TEST, ROUTINE Routine 05/17/2002 12:00 AM Res ults for this CDT procedure are i n the results section. documented in this encounter Results PAP SMEAR, ROUTINE (05/17/2002 12:00 AM CDT) [facility] Method Time Signature Cytology, Pap (NOTE) REGIONS Relationship Executive Cytology Report Patient Name: RAHAT THOMASON Taken: 05/17/02 Received: 05/18/02 Reported: 05/20/02 Physician(s): LUIS SMALLS ([id number]) ? [id number] Final Cytologic Diagnosis Cervical Endocervical,routine: ? Satisfactory for evaluation. ??Endocervical cells and/or squamous metaplastic cells ??present. ? WITHIN NORMAL LIMITS (WNL) Comment tlp/05/20/02 Electronically Signed Out By NIMA Marks (ASC) Veronique Akins, ??CT (ASCP) NIMA Marks (ASCP) Source of Specimen(s) Cervical Endocervical,routine Clinical History Date of Last Menstrual Period: ? 05/09/02` Menstrual History: Contraceptive History: Cancer History: Infection History: Treatment History: Other Clinical Conditions: LAST PAP: 12/02 Other Related Clinical Data Specimen (Source) Anatomical Collection Method Collection Time Re ceived Time Location / / Volume Laterality 05/17/2002 05/18/2002 10:4 8 AM CDT Luis Smalls APRN, CNP LAB_1 Performing Organization Address City/State/[facility] Phon e Number [address] [address] [place], [place] [phone] documented in this encounter Visit Diagnoses Not on filedocumented in this encounter Care Teams Heel Coverer Machine Operator Relationship Specialty Start Date End Date Luis Smalls APRN, JEWEL HOLE DRILLER PCP - General 03/03/02 11/04/10 [address] [place] [address] documented as of this encounter
--- OUTSIDE RECORDS SUMMARY | 2022-04-23 15:38 | XMS_ITS | Encounter Summary ---
:1970 Author Organization [facility] Address [address] [place] [address] Care Team Providers Name Role Phone Britney Jarrett MD Primary Care Provider Encounter Details Date Type Department Care Team Description 12/12/2000 Orders Only Madisyn Villanueva, [address] DONNIE, AGUSTIN [place], [place] [phone] [facility] [phone] [place] [address] (Wo rk) Social History Tobacco Use Types Packs/Day Years Used Date Smoking Tobacco: Never Assessed Sex Assigned at Date Recorded Not on file documented as of this encounter Plan of Treatment Not on filedocumented as of this encounter Procedures Procedure Name Priority Date/Time Associated Diagnosis Comme nts PAP TEST, ROUTINE Routine 12/12/2000 2:02 PM Resu lts for this CDT procedure are i n the results section. documented in this encounter Results PAP SMEAR, ROUTINE (12/12/2000 2:02 PM CDT) [facility] Method Time Signature Pap Smear, See Separate Report [facility] Routine Performed at [facility] Specimen Anatomical Collection Method Collection Time Receive d Time (Source) Location / / Volume Laterality 12/12/2000 2:02 PM 1 2:03 CDT PM CDT Madisyn Smalls APRN, CNP LAB_1 Performing Organization Address City/State/ZIP Code Phon e Number [facility] [phone] [facility] [address] [place] [phone] documented in this encounter Visit Diagnoses Not on filedocumented in this encounter Care Teams Director Of User Experience Relationship Specialty Start Date End Date Britney Jarrett MD PCP - General 04/15/13 04/03/161999 [place] [address] documented as of this encounter
--- OUTSIDE RECORDS SUMMARY | 2022-04-23 15:38 | XMS_ITS | Encounter Summary ---
:1970 Author Organization [facility] Address [address] [place] [address] Care Team Providers Name Role Phone Madisyn Smalls APRN, CNP Primary Care Provider [phone] Reason for Visit Reason Comments HEARING LOSS OTITIS SINUSITIS Encounter Details Date Type Department Care Team Description 05/04/2002 Telephone Careline Christa Ibanez, HEARING LOSS; OTITIS; [address] RN SINUSITIS [place], [place] [address] AFTER HOURS [facility] [phone] 282 [facility], [address] Social History Tobacco Use Types Packs/Day Years Used Date Smoking Tobacco: Never Assessed Sex Assigned at Date Recorded Not on file documented as of this encounter Nursing Notes 05/04/2002 11:59 PM CDT >> CHRISTA Carmen May 04, 2002 3:28 PM >> CALL RECEIVED. Contact: Seen last Sat dx'd with a cold, then seen again 04/29 dx'd with a sinusitis and OM, startedon Amox. Still with difficulty hearing on Friday left ear so pt called and Rx was switched to Zithr omax. States this is the 3rd day on Zithromax, along with taking OTC Sinutab, wqhich she takes q4hr. C/O still cannot hear well left side. States her headcongestion has cleared up for the most part, still with some runny nose. States when she bends over her hearing clears, but as soon as she star ts toraise her head hearing dimishes by at least 50%. Pt is asking what else she can do. Meds: Zithromax and the Sinutab. NKA to medications. Advised plain Sudafed, (no need for Sinutab since pt denies ear or sinus pain). Sudafed 30-60mg, tid . Reassured pt that she has not lost hearing since it returns when she bends head over. Told pt clin ic will check with MD to see if antihistamine should be taken, (Careline cannot advise antihistamine with Sinusitis Dx, per Sinusitis Guidelines, Copyright(c) 2001 [facility]. [place], [place] ). Pt will await CB from clinic today. documented in this encounter Plan of Treatment Not on filedocumented as of this encounter Visit Diagnoses Not on filedocumented in this encounter Care Teams Customs Appraiser Relationship Specialty Start Date End Date Madisyn Smalls APRN, AUTO SERVICE ADVISOR PCP - General 03/03/02 11/04/10 [address] [place] [address] documented as of this encounter
--- OUTSIDE RECORDS SUMMARY | 2022-04-23 15:38 | XMS_ITS | Encounter Summary ---
:1970 Author Organization [facility] Address [address] [place] [address] Care Team Providers Name Role Phone Unassigned, Provider Primary Care Provider Unavailable Encounter Details Date Type Department Care Team Description 12/22/2000 Office Visit [place] [facility], Adult Av ACUTE PHARYNGITIS(SORE Practice THROAT) [address] [place], [place] [address] Social History Tobacco Use Types Packs/Day Years Used Date Smoking Tobacco: Never Assessed Sex Assigned at Date Recorded Not on file documented as of this encounter Plan of Treatment Not on filedocumented as of this encounter Visit Diagnoses Diagnosis Acute pharyngitis documented in this encounter Care Teams Produce Shipper Relationship Specialty Start Date End Date Unassigned, Provider PCP - General 07/21/00 03/02/[address] [place] [address] documented as of this encounter
--- OUTSIDE RECORDS SUMMARY | 2022-04-23 15:38 | XMS_ITS | Encounter Summary ---
:1970 Author Organization [facility] Address [address] [place] [address] Care Team Providers Name Role Phone Madisyn Smalls APRN, CNP Primary Care Provider [phone] Encounter Details Date Type Department Care Team Description 04/29/2002 Office Visit [place] [facility] Bianca Esqueda, ACUTE URI NOS; Medicine MD OTITIS MEDIA NOS [address] [facility] [address] [place], [place] [address] [facility] [phone] [address] [place], [place] [address] (Wo rk) Social History Tobacco Use Types Packs/Day Years Used Date Smoking Tobacco: Never Assessed Sex Assigned at Date Recorded Not on file documented as of this encounter Progress Notes Bianca Esqueda - 04/29/2002 12:00 AM CDTS: 31 year-old woman here for evaluation of facial pain. Starting a week ago she developed nasal congestion, postnasal drip and sore throat. She was seen in urgent care on Friday where strep test was negative. Since then she has developed increasingly severe frontal and maxillary pain, pressure, now with ear plugging and some ear pain. She is intermittently feeling hot and cold but no shaking chills. She denies any cough, shortness of breath or wheezing. She is a non-smoker. She has been using [id number] Sudafed on a regular basis which has not been helping. She had one sinus infection in the distant past. She does have a history of recurrent ear infections. O: Young female, skin appears mildly flushed, is warm and dry. Weight 138 pounds, temperature 97.7, pulse 78 and regular, respiratory rate 14 unlabored, blood pressure 128/68. Lungs are clear. Eyes are not injected. Oropharynx is normal. There is no cervical adenopathy. Both tympanic membranes were bulging, the left one appears erythematous as well. A: Upper respiratory infection with what appears to be early otitis on the left. P: Will treat her with Amoxicillin 500 mg t.i.d. for 10 days. IN SUMMARY: UPPER RESPIRATORY INFECTION/OTITIS MEDIA cc: documented in this encounter Plan of Treatment Not on filedocumented as of this encounter Visit Diagnoses Diagnosis Acute upper respiratory infections of un specified site Unspecified otitis media documented in this encounter Care Teams Clinical Social Worker Relationship Specialty Start Date End Date Madisyn Smalls APRN, PRISON TEACHER PCP - General 03/03/02 11/04/10 [address] [place] [address] documented as of this encounter
--- OUTSIDE RECORDS SUMMARY | 2022-04-23 15:38 | XMS_ITS | Encounter Summary ---
:1970 Author Organization [facility] Address [address] [place] [address] Care Team Providers Name Role Phone Madisyn Smalls APRN, CNP Primary Care Provider Encounter Details Date Type Department Care Team Description 04/24/2002 Orders Only Social History Tobacco Use Types Packs/Day Years Used Date Smoking Tobacco: Never Assessed Sex Assigned at Date Recorded Not on file documented as of this encounter Plan of Treatment Not on filedocumented as of this encounter Procedures Procedure Name Priority Date/Time Associated Diagnosis Comme nts STREP GRP A, RAPID Waiting 04/24/2002 1:23 PM Res ults for this SCREEN CDT procedure are i n the results section. documented in this encounter Results RAPID, GPA STREP SCREEN (WAITI (04/24/2002 1:23 PM CDT) [facility] Method Time Signature Patient Home None [facility] Phone # Patient Work None [facility] Phone # Grp A Rapid Negative [facility] Screen Grp A Culture Negative [facility] Final Specimen Anatomical Collection Method Collection Time Receive d Time (Source) Location / / Volume Laterality 04/24/2002 1:23 PM 2 1:24 CDT PM CDT [facility] LAB_1 Performing Organization Address City/State/ZIP Code Phon e Number [facility] [phone] [facility] [address] [phone] documented in this encounter Visit Diagnoses Not on filedocumented in this encounter Care Teams Shape Brick Molder Relationship Specialty Start Date End Date Madisyn Smalls APRN, CNP PCP - General 7/31/02 4/3/11 [address] [place] [address] documented as of this encounter
--- OUTSIDE RECORDS SUMMARY | 2022-04-23 15:38 | XMS_ITS | Encounter Summary ---
:1970 Author Organization [facility] Address [address], [place] [address] Care Team Providers Name Role Phone Madisyn Smalls APRN, CNP Primary Care Provider [phone] Encounter Details Date Type Department Care Team Description 04/24/2002 [facility] Visit [facility] U RI NOS; [place] ACUTE PHARYNGITIS(SORE THROA T) [address] [place], [place] [address] Social History Tobacco Use Types Packs/Day Years Used Date Smoking Tobacco: Never Assessed Sex Assigned at Date Recorded Not on file documented as of this encounter Last Filed Vital Signs Vital Sign Reading Time Taken Comments Blood Pressure 108/66 04/24/2002 12:45 PM CDT Pulse 80 04/24/2002 12:45 PM CDT Temperature 36.3 ??C (97.3 ??F) 04/24/2002 12:45 PM CDT Respiratory Rate 16 04/24/2002 12:45 PM CDT Oxygen Saturation - - Inhaled Oxygen Concentration - - Weight - - Height - - Body Mass Index - - documented in this encounter Progress Notes 04/24/2002 12:45 PM CDT Room # n/a Rooming time: 1:12 PM No current prescriptions on file. Josie Booker is here today for sorethroat, head congestion, ear pain, nasal drainage, tired Accompanied by the patient. History is obtained from the patient. Weight taken with patient clothed? not done. Temperature source: oral. B/P was taken on the right arm arm. B/P cuff size:Regular. Tobacco Status -never. Lives in a smoking environment : no. O2 Sat.: not done. Peak Flow: not done. AccuCheck: not done. Vision checked: not done, not done. Last Tetanus: current, Immunizations up to date: yes. In the past year, have you been physically or emotionally mistreated by someone important to you? no. Resources given? no. automat car attendant offered -not applicable. Health Education given -no. Primary provider: Madisyn Smalls NP Contact phone number [phone] (home) [phone] (work) Alternate phone number . 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 Has felt tired. Also has had a sore throat, some fullness in her ears. No fever or chills. OBJECTIVE: Alert in no acute distress. Tympanic membranes retracted bilaterally. No sinus tenderness. Throat reveals cobblestoning. Neck is supple without adenopathy. Lungs are clear. Heart: Regular rate and rhythm. Rapid strep screen is negative. ASSESSMENT: Upper respiratory infection. PLAN: Symptomatic cares. Push fluids. Follow up p.r.n. IN SUMMARY: Upper respiratory infection. cc: documented in this encounter Plan of Treatment Not on filedocumented as of this encounter Visit Diagnoses Diagnosis Acute upper respiratory infections of un specified site Acute pharyngitis documented in this encounter Care Teams Bodywork Therapist Relationship Specialty Start Date End Date Madisyn Smalls, VAMP PRESSER, SUPPORT STAFF PCP - General 03/03/02 11/04/10 [address] [place] [address] documented as of this encounter
--- OUTSIDE RECORDS SUMMARY | 2022-04-23 15:38 | XMS_ITS | Encounter Summary ---
:1970 Author Organization [facility] Address [address] [address] Care Team Providers Name Role Phone Unassigned, Provider Primary Care Provider Unavailable Encounter Details Date Type Department Care Team Description 12/27/2000 Orders Only [place] Robin Bradley MD Practice [facility] [address] [place] [address]. [address] [place] [address] [place] [address] [phone] (Wo rk) Social History Tobacco Use Types Packs/Day Years Used Date Smoking Tobacco: Never Assessed Sex Assigned at Date Recorded Not on file documented as of this encounter Plan of Treatment Not on filedocumented as of this encounter Visit Diagnoses Not on filedocumented in this encounter Care Teams Clinical Business Manager Relationship Specialty Start Date End Date Unassigned, Provider PCP - General 07/21/00 03/02/02 [address] [place] [address] documented as of this encounter
--- OUTSIDE RECORDS SUMMARY | 2022-04-23 15:38 | XMS_ITS | Encounter Summary ---
:1970 Author Organization [facility] Address [address] [place] [address] Care Team Providers Name Role Phone Madisyn Smalls APRN, AGUSTIN Primary Care Provider [phone] Reason for Visit Reason Comments Medication Request Encounter Details Date Type Department Care Team Description 05/02/2002 Telephone Careline Jorge Alberto Murray, Medication Request [address] [place], [place] [address] [place] [phone] [place], [place] [address] Social History Tobacco Use Types Packs/Day Years Used Date Smoking Tobacco: Never Assessed Sex Assigned at Date Recorded Not on file documented as of this encounter Nursing Notes 05/02/2002 11:59 PM CDT >> JORGE ALBERTO MURRAY Edroy May 02, 2002 9:03 AM >> COMPLETED ON FriMay 02, 2002 9:40 AM >> CALL RECEIVED. Contact: [phone] [place] [phone] Josie Booker calling with request for new medication: she is currently taking Amox. for an ear in fection and sinusitis. She states that she is not having any improvement in her sx, and she has hadZithromax in the past. Patient reports problems with no improvement.. Allergies reviewed and verified; NKDA. will route Rx request to bonbon dipper provider, Dr.Thomas Kelly, and he ordered Zithromax 500 mg stat, and 250mg per day x 4 days. Rx called to [facility]. Call back plan: if no improvement or worsening of sx. documented in this encounter Plan of Treatment Not on filedocumented as of this encounter Visit Diagnoses Not on filedocumented in this encounter Care Teams Aircraft Engine Dismantler Relationship Specialty Start Date End Date Madisyn Smalls, DONNIE, WORSHIP LEADER PCP - General 03/03/02 11/04/10 [address] [place] [address] documented as of this encounter
--- OUTSIDE RECORDS SUMMARY | 2022-04-23 15:38 | XMS_ITS | Encounter Summary ---
:1970 Author Organization [facility] Address [address] [place] [address] Care Team Providers Name Role Phone Unassigned, Provider Primary Care Provider Unavailable Encounter Details Date Type Department Care Team Description 09/29/2001 Office Visit Bandar Mitchell, ACUTE URI NOS Practice [address] [place] [address] [place] [address] [place], [place] [address] (Wo rk) Social History Tobacco Use Types Packs/Day Years Used Date Smoking Tobacco: Never Assessed Sex Assigned at Date Recorded Not on file documented as of this encounter Progress Notes Bandar Haider - 09/29/2001 12:00 AM CSTS: URI symptoms over the last five days. Patient concerned about possible sinus infection. No facial pain. NO fevers. Has had postnasal drainage. Other family members are ill as well. O: Alert and in no acute distress. BP: 114/76. Temperature: 98.1 degrees. Pulse: 80. TMs retracted bilaterally, right greater then left. No sinus tenderness. Nasal mucosa is edematous and boggy with clear exudates. Throat reveals cobblestoning. Neck is supple with minimal anterior cervical adenopathy. Lungs are clear bilaterally. No wheezes, rales or rhonchi. Heart: RRR without murmur. A: URI. P: Push fluids. Sudafed prn. Follow up prn. IN SUMMARY: URI. cc: ICAL REGISTERED NURSE Bandar Haider - 09/29/2001 12:00 AM CSTS: URI symptoms over the last five days. Patient concerned about possible sinus infection. No facial pain. NO fevers. Has had postnasal drainage. Other family members are ill as well. O: Alert and in no acute distress. BP: 114/76. Temperature: 98.1 degrees. Pulse: 80. TMs retracted bilaterally, right greater then left. No sinus tenderness. Nasal mucosa is edematous and boggy with clear exudates. Throat reveals cobblestoning. Neck is supple with minimal anterior cervical adenopathy. Lungs are clear bilaterally. No wheezes, rales or rhonchi. Heart: RRR without murmur. A: URI. P: Push fluids. Sudafed prn. Follow up prn. IN SUMMARY: URI. cc: ICAL REGISTERED NURSE documented in this encounter Plan of Treatment Not on filedocumented as of this encounter Visit Diagnoses Diagnosis Acute upper respiratory infections of un specified site documented in this encounter Care Teams Flight Operations Dispatch Clerk Relationship Specialty Start Date End Date Unassigned, Provider PCP - General 07/21/00 03/02/[address] [place] [address] documented as of this encounter
--- OUTSIDE RECORDS SUMMARY | 2022-04-23 15:38 | XMS_ITS | Encounter Summary ---
:1970 Author Organization [facility] Address [address] [place] [address] Care Team Providers Name Role Phone Madisyn Smalls APRN, CNP Primary Care Provider [phone] Encounter Details Date Type Department Care Team Description 05/08/2002 [facility] Visit [facility] [place] HEARING LOSS NOS; [address] [facility] [place] N[place], [place] [address] Social History Tobacco Use Types Packs/Day Years Used Date Smoking Tobacco: Never Assessed Sex Assigned at Date Recorded Not on file documented as of this encounter Last Filed Vital Signs Vital Sign Reading Time Taken Comments Blood Pressure 100/66 05/08/2002 3:15 PM CDT Pulse - - Temperature 36.9 ??C (98.5 ??F) 05/08/2002 3:15 PM CDT Respiratory Rate - - Oxygen Saturation - - Inhaled Oxygen Concentration - - Weight - - Height - - Body Mass Index - - documented in this encounter Progress Notes 05/08/2002 3:15 PM CDT Persistant Lt. ear pain for 2 wks. Sandhya Camargo 3:25 PM Luciana Joseph PA-C - 05/08/2002 12:00 AM CDTS. Patient comes in and she was seen last for sinus infection and an ear infection and was put on Amoxicillin. She states that this didn't help and she called and over the phone was switched to Zithromax. She said that her sinuses have been clearing but her ear has not improved. She states that she has just the sensation of fluid in her left ear and also she cannot hear as well. O. On exam the patient is in no acute distress. Head, eyes, ears, nose, throat - Tympanic membranes are nonerythematous, there is no bulging, bilateral normal light reflex and able to visualize normal bony landmarks. Throat is clear with no exudates. Lungs are clear to auscultation. Heart has a regular rate and rhythm without murmur. A. Decreased Hearing, Resolving Sinusitis. Resolved Otitis Media. P. Since her sinus infection is clearing and the ear infection appears to also have cleared I don't see a reason for treatment at this time. Patient has been taking Sudafed and I can encourage her to continue to do so. I gave her a sinusitis handout to give her some more ways to help drain her sinuses to hopefully help the pressure and the fluid in her ear and I have recommended that she follow-up with her primary care doctor if hearing does not return to normal in the next week. IN SUMMARY: DECREASING HEARING cc: documented in this encounter Plan of Treatment Not on filedocumented as of this encounter Visit Diagnoses Diagnosis Unspecified hearing loss Otalgia, unspecified documented in this encounter Care Teams Baker Bench Relationship Specialty Start Date End Date Madisyn Smalls APRN, MEDICAL LABORATORY TECHNOLOGIST PCP - General 03/03/02 11/04/10 [address] [place] [address] documented as of this encounter
--- OUTSIDE RECORDS SUMMARY | 2022-04-23 15:38 | XMS_ITS | Encounter Summary ---
:1970 Author Organization [facility] Address [address] [place] [address] Care Team Providers Name Role Phone Madisyn Smalls APRN, CNP Primary Care Provider [phone] Reason for Visit Reason Comments SINUS PAIN/PRESSURE Encounter Details Date Type Department Care Team Description 01/20/2003 Telephone Careline Wendy Mcknight SINUS PAIN/PRESSURE [address] Lisa Menjivar RN [place], [place] [address] Social History Tobacco Use Types Packs/Day Years Used Date Smoking Tobacco: Never Assessed Sex Assigned at Date Recorded Not on file documented as of this encounter Nursing Notes 01/20/2003 11:59 PM CDT >> WENDY MCKNIGHT [facility] Jan 20, 2003 8:57 AM >> CALL RECEIVED. Contact: self [phone] Triage Reference: SINUS CONGESTION AND PAIN - ADULT CNG (c) 2001 CONCERN: Caller states that she thinks she has another sinus infection. STAT SYMPTOMS:. Very severe facial pain? No Visual Disturbance?No Periorbital swelling or erythema? No Facial swelling or erythema? No Fever > 102 with above symptoms? No ASSESSMENT: Duration of sx. is approx 4-5 days. Colored nasal drainage? Yes, yellow Headache? Yes Severe? NO ; Responds to decongestants? No Maxillary Pressure present? No History of sinusitis? Yes Fever/chills?: No Cough? Yes, draining down the back of the thraot, Purulent sputum? No. SOB? No Sore throat? No Laryngitis? No Ear pain? No Vomiting or dehydration? No Rash? No Facial pain? pain around eyes, forehead pain Problem with chronic nasal polyps or deviated septum? No. Partial or failed response to antibiotics? partial response to amoxicillin with last sinus infection , pt was switched to Zpak with good results. Complicated History? none History of smoking: No Allergies: No; Is patient ? No. Medications: No prescriptions on file. Medication allergies: NO. Triage: complicated Hx HOME TREATMENT: Discussed per guideline:. PLAN: We need to share information about this medical issue with the facility we are directing you to, in order to facilitate the continuation of your care. Do I have your permission to do so? Yes To Provider/Nurse at clinic for follow up Home treat & monitor symptoms, call back if they increase or if concerns Follow up clinic and/or Primary Care Provider. Caller states that when she last was Rx amoxicillin for a sinus infection it did not work well. Shewas then switched to a Zpak with very good results. Caller is requesting a Rx for the Zpak be call ed in for her. Caller can be reached at [phone] and would like a call with further instruction s regarding a Rx to be picked up. Caller would like Rx called in to [facility] [phone]. documented in this encounter Plan of Treatment Not on filedocumented as of this encounter Visit Diagnoses Not on filedocumented in this encounter Care Teams Floor Hand Relationship Specialty Start Date End Date Madisyn Smalls, DONNIE, MACHINE ADJUSTER LEADER CASE TRIM PCP - General 03/03/02 11/04/10 [address] [place] [address] documented as of this encounter
--- OUTSIDE RECORDS SUMMARY | 2022-04-23 15:38 | XMS_ITS | Encounter Summary ---
:1970 Author Organization [facility] Address [address] [place] [address] Care Team Providers Name Role Phone Madisyn Smalls APRN, CNP Primary Care Provider [phone] Encounter Details Date Type Department Care Team Description 02/22/2003 Office Visit [place] Nurse, Adult Av STRE P SORE THROAT Department [id number] [place] [address] 55 24 Social History Tobacco Use Types Packs/Day Years Used Date Smoking Tobacco: Never Assessed Sex Assigned at Date Recorded Not on file documented as of this encounter Last Filed Vital Signs Vital Sign Reading Time Taken Comments Blood Pressure 94/62 02/22/2003 11:30 AM CDT Pulse - - Temperature 36.2 ??C (97.2 ??F) 02/22/2003 11:30 AM CDT Respiratory Rate - - Oxygen Saturation - - Inhaled Oxygen Concentration - - Weight - - Height - - Body Mass Index - - documented in this encounter Progress Notes 02/22/2003 11:30 AM CDT S: Josie Booker complains of sore throat lasting 5 day(s). Other presenting symptoms include: HEADACHE Pertinent medical history includes: STREP EXPSURE IN FAMILY/OTHER O: Objective exam of patient indicates RED, INFLAMED THROAT Complicating symptoms or history includes: NONE A: STREPTOCOCCAL PHARYNGITIS (Rapid Strep Screen POSITIVE, per lab result) P: Plan of care includes: SORE THROAT HEALTH ED GIVEN REVIEWED HOME TREATMENT/COMFORT MEASURES FOR SORE THROAT NOTIFY CLINIC IF NO IMPROVEMENT AFTER 48 HOURS PATIENT ADVISED OF CONTAGIOUSNESS UNTIL ON MEDICATION FOR 24 HOURS PERSCRIPTION GIVEN PER DR Cameron Pineda per Pt request. Phone number: [phone] (home) [phone] (work), alternate number . Wanda Hinkle LPN, 11:32 AM 02/22/2003 documented in this encounter Plan of Treatment Not on filedocumented as of this encounter Visit Diagnoses Diagnosis Streptococcal sore throat documented in this encounter Care Teams Instructor Traffic Safety Relationship Specialty Start Date End Date Madisyn Smalls APRN, CLUB STEWARD PCP - General 03/03/02 11/04/10 [address] [place] [address] documented as of this encounter
--- OUTSIDE RECORDS SUMMARY | 2022-04-23 15:38 | XMS_ITS | Encounter Summary ---
:1970 Author Organization [facility] Address [address] [place] [address] Care Team Providers Name Role Phone Britney Jarrett MD Primary Care Provider Encounter Details Date Type Department Care Team Description 12/22/2000 Orders Only Madisyn Villanueva, [address] AGUSTIN FI[place], [place] [phone] [facility] [phone] [place] [address] (Wo rk) Social History Tobacco Use Types Packs/Day Years Used Date Smoking Tobacco: Never Assessed Sex Assigned at Date Recorded Not on file documented as of this encounter Plan of Treatment Not on filedocumented as of this encounter Procedures Procedure Name Priority Date/Time Associated Diagnosis Comme nts STREP GRP A, RAPID Waiting 12/22/2000 2:23 PM Res ults for this SCREEN CDT procedure are i n the results section. documented in this encounter Results RAPID, GPA STREP SCREEN (WAITI (12/22/2000 2:23 PM CDT) [facility] gist Method Time Signature Patient Home None [facility] Phone # Patient Work None [facility] Phone # Grp A Rapid Negative [facility] Screen Grp A Culture Negative [facility] Final Specimen Anatomical Collection Method Collection Time Receive d Time (Source) Location / / Volume Laterality 12/22/2000 2:23 PM 1 2:24 CDT PM CDT Madisyn Smalls APRN, CNP LAB_1 Performing Organization Address City/State/ZIP Code Phon e Number [facility] [phone] [facility] [address] [address] documented in this encounter Visit Diagnoses Not on filedocumented in this encounter Care Teams Military Administrative Technician Relationship Specialty Start Date End Date Britney Jarrett MD PCP - General 04/15/13 04/03/161999 [place] [address] documented as of this encounter
--- OUTSIDE RECORDS SUMMARY | 2022-04-23 15:39 | XMS_ITS | Encounter Summary ---
:1970 Author Organization [facility] Address [address], [place] [address] Care Team Providers Name Role Phone Unassigned, Provider Primary Care Provider Unavailable Reason for Visit Reason Comments SORE THROAT, VIA INTERFACE Encounter Details Date Type Department Care Team Description 08/12/2000 Office Visit [facility] Madisyn Smalls A CUTE URI NOS; Practice CONSTRUCTION REP, ANESTHESIA RESIDENT ACUTE PHARYNGITIS(SORE THROAT) [address] [facility] [address] [place] [id number] [phone] (Wo rk) Social History Tobacco Use Types Packs/Day Years Used Date Smoking Tobacco: Never Assessed Sex Assigned at Date Recorded Not on file documented as of this encounter Progress Notes Madisyn Smalls - 08/12/2000 12:00 AM CSTS: 30-year old white female presents to clinic concerned about sore throat and right ear pain for the last couple of days. She also has some nasal congestion and discharge. Has had no fever, chills or sweats. No cough. Last took Tylenol Cold at 8:30 this morning, otherwise, not using any medication. She is a nonsmoker and works out of the home. No known exposure to strep throat. Daughter is with her today, otherwise, healthy woman. O: Weight: 136 pounds. Temperature: 98.2 degrees. Blood pressure 120/80. Alert, oriented, cooperative, well groomed, and in no apparent distress. Conjunctiva not injected. Nasal mucosa pink and moist. OP shows some slight erythema of the posterior pharynx. No tonsillar edema or exudate. TMs pearly gallegos, translucent. Neck is supple, no adenopathy. Rapid Strep Screen is negative. A: 1. URI with pharyngitis. P: 1. Increase fluids, Tylenol or ibuprofen for comfort. Sudafed as directed to help with nasal congestion and postnasal drainage. Salt water gargles. Return to clinic if symptoms worsen or fail to improve over the course of the next week. IN SUMMARY :URI WITH PHARYNGITIS. cc: SET UP WORKER documented in this encounter Plan of Treatment Not on filedocumented as of this encounter Visit Diagnoses Diagnosis Acute upper respiratory infections of un specified site Acute pharyngitis documented in this encounter Care Teams Embedded Processor Relationship Specialty Start Date End Date Unassigned, Provider PCP - General 07/21/00 03/02/[address] [place] [address] documented as of this encounter
--- OUTSIDE RECORDS SUMMARY | 2022-04-23 15:39 | XMS_ITS | Encounter Summary ---
:1970 Author Organization [facility] Address [address] [place] [address] Care Team Providers Name Role Phone Madelin Becerril MD Primary Care Provider Reason for Visit Reason Comments PAIN, NOS VIA INTERFACE Encounter Details Date Type Department Care Team Description 02/27/2000 Office Visit [facility] Saravanan, Andrade MYALGIA AND MYOSITIS NOS; [address], DDS, [place] ENTHESOPATHY, [place] [address] Social History Tobacco Use Types Packs/Day Years Used Date Smoking Tobacco: Never Assessed Sex Assigned at Date Recorded Not on file documented as of this encounter Plan of Treatment Not on filedocumented as of this encounter Visit Diagnoses Diagnosis Myalgia and myositis, unspecified Mylagia and myositis, unspecified Enthesopathy of unspecified site documented in this encounter Care Teams Abrasive Coating Machine Operator Relationship Specialty Start Date End Date Madelin Becerril MD PCP - General 07/17/1996 07/20/00 [address] [place] [address] documented as of this encounter
--- OUTSIDE RECORDS SUMMARY | 2022-04-23 15:39 | XMS_ITS | Encounter Summary ---
:1970 Author Organization [facility] Address [address] [place] [address] Care Team Providers Name Role Phone Unassigned, Provider Primary Care Provider Unavailable Encounter Details Date Type Department Care Team Description 12/11/2000 Office Visit [facility] Madisyn Smalls G YNECOLOGIC Practice INSPECTOR HAIRSPRING TRUING, DATA WAREHOUSE SPECIALIST EXAMINATION [address] [facility] [address] [place] [address] [phone] (Wo rk) Social History Tobacco Use Types Packs/Day Years Used Date Smoking Tobacco: Never Assessed Sex Assigned at Date Recorded Not on file documented as of this encounter Progress Notes Madisyn Smalls - 12/11/2000 12:00 AM CDTS: 30-year old female presents to clinic for routine health maintenance, pap smear and pelvic. Please see the note from 12/08/00 discussing her regular menstrual periods. She does bring in a card today with a record of her menstrual periods over the last four months. She bled from August 13 through the . She had one day of spotting on August 26. 25 days later she bled from September 07 to the . 30 days later bled from October 04 through the . 28 days later bled from October 31 through November 04. 19 days later bled from November 20 through November 22. 15 days later bled from December 02 through the . She's had no menstrual bleeding since that time. She's and in a monogamous relationship. No history of abnormal menstrual bleeding in the past.She states she feels as though she's about to have another menstrual period. She'd been on control pills in the past and went off of these once her had a vasectomy in 1994. Please see the review of the past medical history from our last visit. No problems with depression or abuse. She did have bilateral breasts placed in July of 2000 and occasionally does breast self-exam. Medications: calcium supplementation one a day, one a day vitamin, magnesium supplement. NKDA. Family history is negative for hypertension, hyperlipidemia, early [place] or diabetes mellitus. Paternal grandmother with breast cancer. ROS: general state of health has been good except for menstrual irregularities. No fevers, chills or sweats. No chest pain or dizziness. No cough or wheezing. No nausea, vomiting, diarrhea, constipation or melena. No urinary complaints. O: BP: 110/60. Alert, oriented, cooperative, well groomed, and in no apparent distress. PERRLA. OP clear. TMs pearly gallegos, translucent. Neck without adenopathy or thyromegaly. Heart: RRR. Lungs: CTA. Breasts without masses or tenderness. Exam is difficult due to breast implants. No axillary supraclavicular lymphadenopathy. No nipple changes. Abdomen: flat, no tenderness or masses. EG: negative. BSU: negative. Vagina: pink without lesions or discharge. Cervix is clean. Pap smear taken with cyto brush and spatula. Negative CMT. Small, firm, mobile, nontender. No adnexal fullness or tenderness. A: 1. Routine health maintenance, pap and pelvic. Breast exam. 2. Irregular menses. P: 1. Reviewed Josie's lab results from our last visit. She had a normal hemoglobin, glucose, TSH and FSH. Will await the results of her current pap smear. In the meantime in an attempt to regulate her menses, will start her on Alesse one p.o. q.d. x 28 days. Start on the Friday of her next menstrual period. She will complete three cycles and then return to clinic for follow up.She's to continue to monitor her bleeding and record this. She has no absolute contraindications to OCP usage. We discussed the minor side affects and risks. She understands and agrees with this plan. IN SUMMARY: ROUTINE HEALTH MAINTENANCE,PAP SMEAR AND PELVIC, BREAST EXAM,IRREGULAR MENSES. cc: documented in this encounter Plan of Treatment Not on filedocumented as of this encounter Visit Diagnoses Diagnosis Gynecological examination documented in this encounter Care Teams Planting Material Remover Relationship Specialty Start Date End Date Unassigned, Provider PCP - General 07/21/00 03/02/[address] [place] [address] documented as of this encounter
--- OUTSIDE RECORDS SUMMARY | 2022-04-23 15:39 | XMS_ITS | Encounter Summary ---
:1970 Author Organization [facility] Address [address] [place] [address] Care Team Providers Name Role Phone Madelin Becerril MD Primary Care Provider Reason for Visit Reason Comments PE AND PAP VIA INTERFACE Encounter Details Date Type Department Care Team Description 12/24/1999 Office Visit [facility] Madisyn Smalls P REVENTIVE CARE EXAM; Practice AUTOMOTIVE WORKER FOREMAN, BRACE MAKER GYNECOLOGIC EXAMINATION; [address] [facility] [address] [facility] SCREEN MAL NEOP-BREAST,UNSPEC; [place], [place] TM JOIN T DISORDER, UNSPEC [phone] (Wo rk) Social History Tobacco Use Types Packs/Day Years Used Date Smoking Tobacco: Never Assessed Sex Assigned at Date Recorded Not on file documented as of this encounter Progress Notes Madisyn Smalls - 12/24/1999 12:00 AM CDTSUBJECTIVE: This 29-year-old white female presents to clinic for routine health maintenance. She is a 2, para 2-0-0-2, with x 2 in 1991 and 1994. She is regular monthly menses with no IMB, no PCB, no dyspareunia. She is and in a monogamous relationship. No problems with depression or abuse. Her has had a vasectomy. She does monthly BSE and has found no abnormalities. She does have a history of a right breast biopsy which returned benign in March 1998. Patient has 2 concerns today. She has a lesion which she believes started as a mole on her left lateral lower leg which she would like removed. She has brought this up to physicians in the past and it was felt to be benign. She notes it has not been irritated or bleeding unless nicked when she is shaving. She has seen no color change. She does feel it is slightly larger than it has been in the past. Her other concern is a long history of TMJ disease. She was first diagnosed at age 18 and was given an appliance at that time. She states she used that rather sporadically, as she did not feel this helped at all. She had tried massage therapy for her tight jaw muscles and this has not improved. She has worked with her dentist and he had suggested that she see her primary care provider for referral to a TMJ specialist. She notes that her chin is off-center to the right. She has catching and clicking in her TMJ bilaterally. Sometimes has pain with eating or talking. She has frequent jaw clenching which she associates with stress. She has also noticed some aching on the left side if she sleeps on that side. Last dental visit was 8 months ago. Patient's third concern is that she had been taking an herbal remedy call Grow Bust. She is not sure what herbs were contained in this pill, however, it was designed to help her lose weight and increase her bust size. She noticed after being on this medication approximately a month, she began to break out in hives on her torso. These were erythematous and mildly itchy. She showed them to a physician at her son's appointment last week and was encouraged to discontinue the herbal remedy. She did stop taking that on 12/20/99 and has noticed some decrease in the pigmentation of these hives and no pruritus. PAST MEDICAL HISTORY: Bilateral carpal tunnel release, tympanostomy with PE tube placement x 3, tonsillectomy and adenoidectomy, right breast biopsy, low back surgery 1985, liposuction hips, thighs and buttocks 1990. FAMILY HISTORY: No hypertension, early CVD, diabetes mellitus or colon cancer. History of breast cancer in paternal grandmother. HABITS: Alcohol: 2 servings per month. Nicotine: None. Elicit drugs: None. Exercise: Aerobics or similar exercise every other day. Tries to eat a well-balanced diet, 5 fruits or vegetables per day, 2-3 servings of dairy products plus calcium supplement per day. Also takes One-A-Day for Women. 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 He is a public speaking coach. Immunization up-to-date REVIEW OF SYSTEMS: General state of health is good. Weight is stable. No fever, chills or sweats. No chest pain, palpitations or dizziness. No shortness of breath, wheezing or cough. No nausea or vomiting, diarrhea, constipation or melena. No dysuria, urgency, frequency or hematuria. OBJECTIVE: Weight 134 pounds. Pulse 86. Blood pressure 110/70. Alert, oriented, cooperative, well-groomed, in no apparent distress. PERRLA. OP clear, good dentition, no popping or crackling with palpation of the temporomandibular joints, however, the left side is much more pronounced and the chin is, indeed, off-center to the right. She does have tenderness bilaterally with palpation. EACs clear, TMs pearly gallegos, translucent. Neck is supple, no lymphadenopathy. Breasts are symmetric, except for a surgical scar on the right upper lateral quadrant, some palpable scar tissue below this, otherwise, no masses or tenderness bilaterally, no nipple retraction, no nipple discharge. No axillary or supraclavicular lymphadenopathy. No other skin changes noted. S1, S2, without murmur, S3 or S4, RRR. Lungs CTA. Abdomen is soft, no tenderness or masses, negative HSM. EG negative. BSU negative. Vagina pink, moist, without lesions or discharge. Pap taken with Cytobrush and spatula. Negative CMT. Uterus appears small, firm, mobile, nontender. No adnexal fullness or tenderness. The left lateral lower leg shows a well-delineated, symmetric macular light-brown lesion that is 6 mm x 6 mm, appears benign. There are multiple, approximately 20 to 30, light pink, macular lesions, no bigger than 5 mm in diameter on the torso and abdomen. No other lesions noted. ASSESSMENT: 1. Routine health maintenance with Pap and breast exam. 2. Temporomandibular joint disorder bilaterally. 3. Benign-appearing lesion left lateral lower leg. PLAN: 1. Return to clinic in 1 year for routine health maintenance. Continue with monthly BSE. 2. She is given a referral to temporomandibular joint disorder specialist. Should follow up with me p.r.n. 3. Discussed removal of lesion at left lateral lower leg. This appears benign. She is notified that if this would be removed for cosmetic purposes, she may need to pay a fee for this. She understands. 4. Strongly discouraged from taking any herbal remedies thought to alter her breast tissue makeup, especially with her history of breast biopsy in 1997. She may opt to contact Carla Gonzalez, pharmacist, with ingredients of this herbal remedy to discuss interactions with possible medications and her development of hives. cc: documented in this encounter Plan of Treatment Not on filedocumented as of this encounter Visit Diagnoses Diagnosis Routine general medical examination at [facility] facility Routine general medical examination at [facility] care facility Gynecological examination Breast screening, unspecified Temporomandibular joint disorders, unspe cified documented in this encounter Care Teams Cotton Seed Culler Relationship Specialty Start Date End Date Madelin Becerril MD PCP - General 07/17/1996 07/20/00 [address] [place] [address] documented as of this encounter
--- OUTSIDE RECORDS SUMMARY | 2022-04-23 15:39 | XMS_ITS | Encounter Summary ---
:1970 Author Organization [facility] Address [address] [address] Care Team Providers Name Role Phone Unassigned, Provider Primary Care Provider Unavailable Encounter Details Date Type Department Care Team Description 12/08/2000 Office Visit [facility] Madisyn Smalls M ALAISE AND FATIGUE (OTHER); Practice EXTRUSION DIE TEMPLATE MAKER, MD ALLERGY IMMUNOLOGY MENSTRUAL DISORDER NOS [address] [facility] [address] [place] [address] [phone] (Wo rk) Social History Tobacco Use Types Packs/Day Years Used Date Smoking Tobacco: Never Assessed Sex Assigned at Date Recorded Not on file documented as of this encounter Progress Notes Madisyn Smalls - 12/08/2000 12:00 AM CDTS: 30-year-old female presents to clinic concerned about menstrual irregularities. Over the last 6 months she's been noticing some changes in her menstrual periods. She's been having slightly more clotting and cramping. Over the last 2 months she believes she's been having menstrual bleeding occurring every 15 days. She usually bleeds for approximately 5-6 days. She's used to menstrual periods occurring every 29 days lasting for 5 days. She started bleeding last on 12/02/00 and has had some mild spotting today. She did have intercourse last night. Her has had a vasectomy. She has noticed no intermenstrual bleeding. She's had no postcoital bleeding or dyspareunia. No vaginal discharge or itching. She and her are in a monogamous relationship. He is her one and only partner. She states she has been feeling as though she's had hot flashes but has had these off and on for several years. She denies any breast tenderness or nipple discharge. Believe her mother went through menopause in her mid 50's. Josie was on control pills in the past and went off these in 1994 after had a vasectomy. Prior to being on control pills she's always had regular monthly menses. She is 2, para 2-0-0-2 with normal spontaneous vaginal delivery in 1991 and 1994. PAST MEDICAL HISTORY: notable for carpal tunnel release in 1995 x 2. Back surgery for spondylolisthesis in 1985, tonsillectomy and adenoidectomy as a child, PE tubes x 3, liposuction hips, thighs and buttocks in 1990 and again in July of 2000. At that time she also had bilateral breast implants. She does have a history of f right breast biopsy, which was benign in 1997. Medications: calcium 500 mg 1 po q d, One-a-day vitamin 1 po q d, magnesium supplement 1 po q d. She is taking this for bloating. No known drug allergies. REVIEW OF SYSTEMS: general state of health has been good. Weight is stable. No fever or chills. No chest pain, palpitations or dizziness. No diarrhea or constipation. No skin or hair changes other than increased acne on her chin. O: Weight: 135 lbs. Temperature 99. Pulse: 80. Blood pressure 120/70. Alert, oriented, cooperative, well groomed and in no apparent distress. Neck is supple. No thyromegaly. Pelvic exam is not done today. A: 1. Irregular menses. P: 1. Josie is given a menstrual record card. She will take this home and record her menstrual periods over the last year. She is to return to clinic later this week for routine health maintenance pap and pelvic. No intercourse the night before. She's also to make sure she is not bleeding on that day. Labs pending include hemoglobin, TSH, glucose and FSH. She understands and agrees with this plan. IN SUMMARY: IRREGULAR MENSES cc: documented in this encounter Plan of Treatment Not on filedocumented as of this encounter Visit Diagnoses Diagnosis Other malaise and fatigue Unspecified disorder of menstruation and other abnormal bleeding from female genital tract documented in this encounter Care Teams Boiler Maker Relationship Specialty Start Date End Date Unassigned, Provider PCP - General 07/21/00 03/02/02 [address] [place] [address] documented as of this encounter
--- OUTSIDE RECORDS SUMMARY | 2022-04-23 15:39 | XMS_ITS | Encounter Summary ---
:1970 Author Organization [facility] Address [address] [place] [address] Care Team Providers Name Role Phone Luis Smalls APRN, AGUSTIN Primary Care Provider [phone] Encounter Details Date Type Department Care Team Description 12/24/1999 Orders Only Unknown, Physici an [address] [place], [place] [id number] (Wo rk) Social History Tobacco Use Types Packs/Day Years Used Date Smoking Tobacco: Never Assessed Sex Assigned at Date Recorded Not on file documented as of this encounter Plan of Treatment Not on filedocumented as of this encounter Procedures Procedure Name Priority Date/Time Associated Diagnosis Comme nts EXCELSIOR MACHINE TENDER CYTOLOGY Routine 12/24/1999 9:15 AM Results f or this CDT procedure are i n the results section . documented in this encounter Results EXCELSIOR MACHINE TENDER CYTOLOGY (12/24/1999 9:15 AM CDT) [facility] Method Time Signature Air Intelligence Officer Cytology Air Intelligence Officer Cytology Report [facility] Patient Name: RAHAT THOMASON Taken: 12/24/99 Received: 12/25/99 Reported: 12/28/99 Physician(s): Joseph Abraham MD PhD ([id number]) LUIS SMALLS ? [id number] Final Cytologic Diagnosis Cervical Endocervical,routine: ? Satisfactory for evaluation. ??Endocervical cells and/or squamous metaplastic cells ??present. Satisfactory for evaluation but limited by obscuring inflammation. ? WITHIN NORMAL LIMITS (WNL) ? Comment smm/12/28/99 Electronically Signed Out By NIMA Leon (ASCP)NIMA Leon (ASCP) ? Source of Specimen(s) Cervical Endocervical,routine Clinical History Date of Last Menstrual Period: ? 11/29/99 Menstrual History: Contraceptive History: Cancer History: Infection History: Treatment History: Other Clinical Conditions: LAST PAP: 08/08/98 [facility] [id number] Other Related Clinical Data Specimen Anatomical Collection Method Collection Time Receive d Time (Source) Location / / Volume Laterality 12/24/1999 9:15 AM 0 CDT 10:27 AM CDT Physician Unknown UNLISTED CODE Performing Organization Address City/State/ZIP Code Phon e Number [address] [address] [place], [place] [phone] documented in this encounter Visit Diagnoses Not on filedocumented in this encounter Care Teams Scout Sniper Relationship Specialty Start Date End Date Luis Smalls, DONNIE, ADMINISTRATIVE SUPPORT ASSOC PCP - General 03/03/02 11/04/10 [address] [place] [address] documented as of this encounter
--- OUTSIDE RECORDS SUMMARY | 2022-04-23 15:39 | XMS_ITS | Encounter Summary ---
:1970 Author Organization [facility] Address [address], [place] [address] Care Team Providers Name Role Phone Madelin Becerril MD Primary Care Provider Reason for Visit Reason Comments MOLE,EVALUATION VIA INTERFACE Encounter Details Date Type Department Care Team Description 01/02/2000 Office Visit Caryn Marcos [facility] Bandar Haider SKIN DIS ORDER NOS Practice [place] [address] Caryn Marcos [place] [address] [address] [address] [place], [place] [address] (Wo rk) Social History Tobacco Use Types Packs/Day Years Used Date Smoking Tobacco: Never Assessed Sex Assigned at Date Recorded Not on file documented as of this encounter Progress Notes Bandar Haiderony - 01/02/2000 12:00 AM CDTS: Patient here for evaluation of skin lesion on her left lower leg. States that the lesion begin as a mole 10 years ago which was quite small. Over the past 10 years she has noticed some enlargement with stability in size over the last two to three years. No personal or family history of skin cancer. Otherwise has been feeling well. O: Alert and in no acute distress. Examination of the lateral aspect of the lower left leg reveals a 5 x 6 mm diameter flat, siu pigmented lesion with sharp borders. No surrounding skin lesions noted. No scaling . A: Benign appearing nevus. P: Findings discussed at length with the patient. Options include continued observation for any changes in light of the stability over the last two to three years. The patient also was offered biopsy if she wishes. She had numerous questions with regards to total excision of the lesion. However, this would lead to a sizable scar . Potential complications discussed with the patient. At this point, she will observe for any further changes in the lesion and follow up prn. 20 minutes spent with the patient, the majority of which involved counseling. IN SUMMARY: MOLE. cc: documented in this encounter Plan of Treatment Not on filedocumented as of this encounter Visit Diagnoses Diagnosis Unspecified disorder of skin and subcuta neous tissue documented in this encounter Care Teams Gymnasium Teacher Relationship Specialty Start Date End Date Madelin Becerril MD PCP - General 07/17/1996 07/20/[address] [place] [address] documented as of this encounter
--- OUTSIDE RECORDS SUMMARY | 2022-04-23 15:39 | XMS_ITS | Encounter Summary ---
:1970 Author Organization [facility] Address [address] [place] [address] Care Team Providers Name Role Phone Madelin Becerril MD Primary Care Provider Reason for Visit Reason Comments PAIN, NOS VIA INTERFACE Encounter Details Date Type Department Care Team Description 03/26/2000 Office Visit [facility] Estevan, Alesia [facility] [address] [place] [address] CONDITION [phone] Social History Tobacco Use Types Packs/Day Years Used Date Smoking Tobacco: Never Assessed Sex Assigned at Date Recorded Not on file documented as of this encounter Plan of Treatment Not on filedocumented as of this encounter Visit Diagnoses Diagnosis Psychic factors associated with diseases classified elsewhere (HRC) Psychic factors associated with diseases classified elsewhere documented in this encounter Care Teams Customer Solutions Architect Relationship Specialty Start Date End Date Madelin Becerril MD PCP - General 07/17/1996 07/20/00 [address] [place] [address] documented as of this encounter
--- OUTSIDE RECORDS SUMMARY | 2022-04-23 15:39 | XMS_ITS | Encounter Summary ---
:1970 Author Organization [facility] Address [address] [place] [address] Care Team Providers Name Role Phone Madelin Becerril MD Primary Care Provider Encounter Details Date Type Department Care Team Description 06/14/1999 Orders Only Diane Johnston MD [address] [facility] 80 (Wo rk) Social History Tobacco Use Types Packs/Day Years Used Date Smoking Tobacco: Never Assessed Sex Assigned at Date Recorded Not on file documented as of this encounter Plan of Treatment Not on filedocumented as of this encounter Procedures Procedure Name Priority Date/Time Associated Diagnosis Comme nts VAGINAL WET PREP Waiting 06/14/1999 2:41 PM Resul ts for this SOFT SHOE DANCER procedure are i n the results section. documented in this encounter Results WET PREP, VAGINAL (06/14/1999 2:41 PM SOFT SHOE DANCER) [facility] Method Time Signature Epithelials Moderate [facility] % Atrophic 0 [facility] Epith WBC'S Occ [facility] Bacteria Moderate [facility] Clue Cells 0 [facility] Trichomonas 0 [facility] Yeast Positive [facility] pH 4.5 3.5 - 4.5 [facility] Comment Vaginal [facility] Cream Present Specimen Anatomical Collection Method Collection Time Receive d Time (Source) Location / / Volume Laterality 06/14/1999 2:41 PM 9 2:42 SOFT SHOE DANCER PM SOFT SHOE DANCER Diane Johnston MD LAB_1 Performing Organization Address City/State/ZIP Code Phon e Number [facility] [phone] [facility] [address] [address] documented in this encounter Visit Diagnoses Not on filedocumented in this encounter Care Teams Chief Station Engineer Relationship Specialty Start Date End Date Madelin Becerril MD PCP - General 07/17/1996 07/20/[address] [place] [address] documented as of this encounter
--- OUTSIDE RECORDS SUMMARY | 2022-04-23 15:39 | XMS_ITS | Encounter Summary ---
:1970 Author Organization [facility] Address [address] [place] [address] Care Team Providers Name Role Phone Britney Jarrett MD Primary Care Provider Encounter Details Date Type Department Care Team Description 12/08/2000 Orders Only [facility] Madisyn Smalls H, [address] BOAT OUTBOARD ENGINE MECHANIC, MANAGER PRICING [place], [place] [phone] [facility] [phone] [place] [address] (Wo rk) Social History Tobacco Use Types Packs/Day Years Used Date Smoking Tobacco: Never Assessed Sex Assigned at Date Recorded Not on file documented as of this encounter Plan of Treatment Not on filedocumented as of this encounter Procedures Procedure Name Priority Date/Time Associated Diagnosis Comme nts HEMOGLOBIN, BLOOD Waiting 12/08/2000 1:57 PM Resu lts for this CDT procedure are i n the results section. FSH Routine 12/08/2000 1:57 PM Results f or this CDT procedure are i n the results section. TSH, SENSITIVE Routine 12/08/2000 1:57 PM Results for this (WITH REFLEX) CDT procedure are in the results section. GLUCOSE Routine 12/08/2000 1:57 PM Results f or this CDT procedure are i n the results section. documented in this encounter Results TSH, SENSITIVE (12/08/2000 1:57 PM CDT) P athologist Signature TSH 0.93 0.30 - 5.00 [facility] uIU/ml Thyroid Meds No [facility] Specimen Anatomical Collection Method Collection Time Receive d Time (Source) Location / / Volume Laterality 12/08/2000 1:57 PM 1 1:58 CDT PM CDT Madisyn Smalls APRN, CNP LAB_1 Performing Organization Address [facility] Phon e Number [facility] [phone] [facility] [address] [place] [phone] FSH (12/08/2000 1:57 PM CDT) [facility] Method Time Signature FSH 6.0 mIU/ml [facility] FSH Expected Values- [facility] Prepubertal: ??<5.0 Follicular: ??2.5-10.2 Midcycle: ??3.4-33.4 Luteal: ??1.5-9.1 Postmenopausal: ??23.0-116.3 Specimen Anatomical Collection Method Collection Time Receive d Time (Source) Location / / Volume Laterality 12/08/2000 1:57 PM 1 1:58 CDT PM CDT Madisyn Smalls APRN, CNP LAB_1 Performing Organization Address [facility] Phon e Number [facility] [phone] [phone] GLUCOSE - RANDOM < 8HR FASTING) (12/08/2000 1:57 PM CDT) athologist Signature Glucose 105 65 - 115 [facility] mg/dl Hours Fasting 2.25 hours [facility] Specimen Anatomical Collection Method Collection Time Receive d Time (Source) Location / / Volume Laterality 12/08/2000 1:57 PM 1 1:58 CDT PM CDT Madisyn Smalls APRN, CNP LAB_1 Performing Organization Address [facility] Phon e Number [facility] [phone] [phone] HEMOGLOBIN, BLOOD (12/08/2000 1:57 PM CDT) P athologist Signature Hemoglobin 14.6 12.0 - 16.0 [facility] g/dl Specimen Anatomical Collection Method Collection Time Receive d Time (Source) Location / / Volume Laterality 12/08/2000 1:57 PM 1 1:58 CDT PM CDT Madisyn Smalls APRN, MANAGER PRICING LAB_1 Performing Organization Address City/State/ZIP Code Phon e Number [facility] [phone] [facility] [address] [phone] documented in this encounter Visit Diagnoses Not on filedocumented in this encounter Care Teams Senior Compliance Analyst Relationship Specialty Start Date End Date Britney Jarrett MD PCP - General 04/15/13 04/03/161999 [place] [address] documented as of this encounter
--- OUTSIDE RECORDS SUMMARY | 2022-04-23 15:39 | XMS_ITS | Encounter Summary ---
:1970 Author Organization [facility] Address [address] [place] [address] Care Team Providers Name Role Phone Madelin Becerril MD Primary Care Provider Reason for Visit Reason Comments OD EXAM VIA INTERFACE Encounter Details Date Type Department Care Team Description 07/12/1999 Office Visit [facility], Jignesh Haskins, OD MYOPIA [address] [place], [place] [address] Social History Tobacco Use Types Packs/Day Years Used Date Smoking Tobacco: Never Assessed Sex Assigned at Date Recorded Not on file documented as of this encounter Plan of Treatment Not on filedocumented as of this encounter Visit Diagnoses Diagnosis Myopia documented in this encounter Care Teams Apple Peeler Operator Relationship Specialty Start Date End Date Madelin Becerril MD PCP - General 07/17/1996 07/20/[address] [place] [address] documented as of this encounter
--- OUTSIDE RECORDS SUMMARY | 2022-04-23 15:39 | XMS_ITS | Encounter Summary ---
:1970 Author Organization [facility] Address [address] [place] [address] Care Team Providers Name Role Phone Unassigned, Provider Primary Care Provider Unavailable Encounter Details Date Type Department Care Team Description 12/11/2000 Orders Only [facility], [place] [address] Social History Tobacco Use Types Packs/Day Years Used Date Smoking Tobacco: Never Assessed Sex Assigned at Date Recorded Not on file documented as of this encounter Plan of Treatment Not on filedocumented as of this encounter Visit Diagnoses Not on filedocumented in this encounter Care Teams Assistant Professor Of Dietetics Relationship Specialty Start Date End Date Unassigned, Provider PCP - General 07/21/00 03/02/[address] [place] [address] documented as of this encounter
--- OUTSIDE RECORDS SUMMARY | 2022-04-23 15:39 | XMS_ITS | Encounter Summary ---
:1970 Author Organization [facility] Address [address] [place] [address] Care Team Providers Name Role Phone Madisyn Smalls APRN, CNP Primary Care Provider [phone] Encounter Details Date Type Department Care Team Description 12/11/2000 Orders Only Madisyn Smalls APRN, CNP [address] [place] [address] (Wo rk) Social History Tobacco Use Types Packs/Day Years Used Date Smoking Tobacco: Never Assessed Sex Assigned at Date Recorded Not on file documented as of this encounter Plan of Treatment Not on filedocumented as of this encounter Procedures Procedure Name Priority Date/Time Associated Diagnosis Comme nts SENIOR EXECUTIVE ASSISTANT CYTOLOGY Routine 12/11/2000 10:40 AM Results for this CDT procedure are i n the results section . documented in this encounter Results SENIOR EXECUTIVE ASSISTANT CYTOLOGY (12/11/2000 10:40 AM CDT) [facility] Method Time Signature Packager Head Cytology Packager Head Cytology Report [facility] Patient Name: RAHAT THOMASON Taken: 12/11/00 Received: 12/15/00 Reported: 12/20/00 Physician(s): MADISYN SMALLS ([id number]) ? [id number] Final Cytologic Diagnosis Cervical Endocervical,routine: ? Satisfactory for evaluation. ??Endocervical cells and/or squamous metaplastic cells ??present. ? WITHIN NORMAL LIMITS (WNL) ? Comment dt/12/20/00 Electronically Signed Out By NIMA Lovelace (ASCP)NIMA Lovelace (ASCP) ? Source of Specimen(s) Cervical Endocervical,routine Clinical History Date of Last Menstrual Period: ? 12/02/00 Menstrual History: Contraceptive History: Cancer History: Infection History: Treatment History: Other Clinical Conditions: LAST PAP: Other Related Clinical Data Specimen Anatomical Collection Method Collection Time Receive d Time (Source) Location / / Volume Laterality 12/11/2000 10:40 12/15/2000 1:07 AM CDT PM CDT Madisyn Smalls APRN, CNP UNLISTED CODE Performing Organization Address City/State/ZIP Code Phon e Number [address] [address] [place], [place] [phone] documented in this encounter Visit Diagnoses Not on filedocumented in this encounter Care Teams Marine Electrician Apprentice Relationship Specialty Start Date End Date Madisyn Smalls APRN, BILLET BED OPERATOR PCP - General 03/03/02 11/04/10 [address] [place] [address] documented as of this encounter
--- OUTSIDE RECORDS SUMMARY | 2022-04-23 15:39 | XMS_ITS | Encounter Summary ---
:1970 Author Organization [facility] Address [address] [place] [address] Care Team Providers Name Role Phone Madelin Becerril MD Primary Care Provider Reason for Visit Reason Comments PAIN, NOS VIA INTERFACE Encounter Details Date Type Department Care Team Description 01/23/2000 Office Visit [facility] Saravanan, Andrade MYALGIA AND MYOSITIS NOS; [address] C, DDS, MS TENSION HEADACHE; [place] [address] PSYCHOGENIC DISORDER NEC; [phone] ENTHESOPATHY, S ITE NOS Social History Tobacco Use Types Packs/Day Years Used Date Smoking Tobacco: Never Assessed Sex Assigned at Date Recorded Not on file documented as of this encounter Plan of Treatment Not on filedocumented as of this encounter Visit Diagnoses Diagnosis Myalgia and myositis, unspecified Mylagia and myositis, unspecified Tension headache Other specified psychophysiological malf unction (HRC) Other specified psychophysiological malf unction Enthesopathy of unspecified site documented in this encounter Care Teams Ferris Wheel Operator Relationship Specialty Start Date End Date Madelin Becerril MD PCP - General 07/17/1996 07/20/[address] [place] [address] documented as of this encounter
--- OUTSIDE RECORDS SUMMARY | 2022-04-23 15:39 | XMS_ITS | Encounter Summary ---
:1970 Author Organization [email or web address] Address [address] [place] [address] Care Team Providers Name Role Phone Madelin Becerril MD Primary Care Provider Encounter Details Date Type Department Care Team Description 01/23/2000 Office Visit Karmen David, PT Social History Tobacco Use Types Packs/Day Years Used Date Smoking Tobacco: Never Assessed Sex Assigned at Date Recorded Not on file documented as of this encounter Progress Notes Karmen David - 01/23/2000 12:00 AM CDTSUBJECTIVE: The patient is a 29-year-old female with primary complaint of jaw pain left greater than right along the zygoma. She describes it as an ache on a daily basis most of the time. She also experiences headaches in temporal or suboccipital area about 4 x per week. Sometimes she will awake with the pain and admits to some dull headache a lot of the time but tends to live with it. She reports clicking left TMJ with yawning and wide opening occasionally. She reports increased pain with heavy chewing, public speaking, clenching and wide opening such as for a dentist visit. Massaging helps some. She has not tried using heat or cold. She has tried two soft splints in the past with no benefit The patient also has cervical upper back tension and soreness but these are secondary to her jaw and head pain. She has seen the massage therapist some in the past and her will massage her neck and upper back every night. She does experience some left ear pain. The patient normally sleeps supine, side lying or prone, but laying left side lying can increase the pain in left jaw. The patient admits to clenching all the time including nighttime. She admits to lip biting when she is thinking or concentrating. She chews gum about one time per week. She has become aware of protruding her jaw when she is angry and also admits to probable shoulder bracing. She has been chewing entirely on the right as it seems more sore on the left. She is exercising every other day which feels good but sometimes will notice clenching with exercising. 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 She feels that she has a good setup for chair and computer. She also does some public speaking for [employer]. She is the mother of two children. The patient reports long-term jaw and head pain since high school, but it seems to be worse recently. She has had physical therapy in the past for her neck and for her back. She underwent fusion-type of surgery in high school to her low back. If she feels tension or knots in her shoulders, she will do some of the exercises she was instructed in previously, and will use a tennis ball for deep massage. OBJECTIVE: Mandibular opening to 44 mm with deviation to the right and early translation on the left. In neutral her mandible is slightly deviated to the right and the patient reports right side hits first. The patient also reports pain with protrusion. Palpation reveals tenderness bilateral masseter, temporalis, lateral TMJ capsule, sternocleidomastoid, upper trapezius, suboccipitals and levator scapula. Cervical mobility is restricted with bilateral side bending at 70% with stretch pain at end ranges and forward flexion stretch. Rotation to the left at 90%. Strength in neck and upper back are within normal limits. Jaw strength also is grossly within normal limits but reports pain with resistance to lateral trusion. Noted both tongue and mucosal ridging. She rests with her tongue up on palate, but also touching the incisors. She has slight forward head on neck posture, rounded shoulders and winging of scapula. ASSESSMENT: Possible contributory factors include clenching, daytime and nocturnal gum chewing, lip biting, bracing, unilateral chew, right pared opening pattern, posture of tongue, jaw, head and shoulders. Goals of treatment are to decrease pain and headaches, promote relaxation, improve opening pattern, improve posture, and have the patient maintain herself independent with home exercise program. Rehab potential is good. TREATMENT: Today the patient was instructed in postural correction exercises, including controlled rotational opening and rhythmic stabilization followed by jaw stretch. Encouraged bilateral chew. Future treatment will include instruction in cervical range of motion, jaw active opening in a straight pattern and possibly mobilization to right TMJ. PLAN: Will follow up with patient in 1-2 weeks on a short-term basis. cc: documented in this encounter Plan of Treatment Not on filedocumented as of this encounter Visit Diagnoses Not on filedocumented in this encounter Care Teams Terrazzo Laborer Relationship Specialty Start Date End Date Madelin Becerril MD PCP - General 07/17/1996 07/20/[address] [place] [address] documented as of this encounter
--- OUTSIDE RECORDS SUMMARY | 2022-04-23 15:39 | XMS_ITS | Encounter Summary ---
:1970 Author Organization [facility] Address [address] [place] [address] Care Team Providers Name Role Phone Madelin Becerril MD Primary Care Provider Encounter Details Date Type Department Care Team Description 01/23/2000 Office Visit Andrade Coe, DDS, MS Social History Tobacco Use Types Packs/Day Years Used Date Smoking Tobacco: Never Assessed Sex Assigned at Date Recorded Not on file documented as of this encounter Progress Notes Andrade Coe - 01/23/2000 12:00 AM CDTSUBJECTIVE: This pleasant 29-year-old woman presented with the chief complaint of bilateral jaw pain and headaches. She experienced the jaw pain bilaterally in the zygomatic and superior masseter muscle region as a dull ache at a 4 of 10 on an almost constant daily basis. It is increased with public speaking, heavy chewing and when she is at the dentist. She has also noted times when she cannot open her mouth normally and has had occasional TM joint clicking. Her headaches are of two types; one appearing in the temporal region and one in the suboccipital region. They are basically tension-type headaches as a dull ache as a 5 of 10 level occurring four days a week. They are increased with stress in that they are worst or related to her jaw pain. She is very aware of clenching her teeth all the time, clenching her teeth when sleeping and occasionally chewing on her lips. 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 She was treated with soft athletic-type mouth guards by her dentist on at least two occasions and these were not particularly helpful for her. 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 There is some stress related to balancing all the demands on her work and home life. She has noted that she feels sleep deprived, and that her sleep has been of poor quality of late. OBJECTIVE: The patient showed maximum opening of 44 mm with pain in the left masseter muscle region. There were no detectable TM joint sounds on the date of examination. There was moderate to severe tenderness to palpation throughout the muscles of mastication and cervical muscles, and moderate tenderness of the TM joints bilaterally. Her dentition was stable. Soft tissue intraorally was within normal limits and cranial nerves III-XII were grossly intact. She has had some concern about a perception of facial asymmetry. She does show some facial asymmetry but definitely within normal variation. ASSESSMENT: My diagnosis is one of masticatory and cervical myofascial pain related to tension-type headaches. She also has a secondary TM joint capsulitis which is relatively modest. Contributing to her pain are her parafunctional clenching habits, sleep-related bruxism, psychosocial issues and her sleep deprivation. PLAN: I prescribed Flexeril 10 mg q.h.s. 21 tablets. I am also having her see our physical therapist to establish a home exercise program for the jaw and neck and our health psychologist, Dr. Alesia Barreto, for relaxation training. This may include biofeedback. I will follow up with her in 3-4 weeks and consider the need for using an intraoral appliance. I believe her prognosis to be good as she is quite motivated to get involved in a self care program. Date: January 23, 2000 cc: documented in this encounter Plan of Treatment Not on filedocumented as of this encounter Visit Diagnoses Not on filedocumented in this encounter Care Teams Strategic Marketing Specialist Relationship Specialty Start Date End Date Madelin Becerril MD PCP - General 07/17/1996 07/20/[address] [place] [address] documented as of this encounter
--- OUTSIDE RECORDS SUMMARY | 2022-04-23 15:39 | XMS_ITS | Encounter Summary ---
:1970 Author Organization [facility] Address [address] [place] [address] Care Team Providers Name Role Phone Britney Jarrett MD Primary Care Provider Encounter Details Date Type Department Care Team Description 08/12/2000 Orders Only Madisyn Villanueva, [address] [place], [place] [address] [phone] [facility] [phone] [place] [address] (Wo rk) Social History Tobacco Use Types Packs/Day Years Used Date Smoking Tobacco: Never Assessed Sex Assigned at Date Recorded Not on file documented as of this encounter Plan of Treatment Not on filedocumented as of this encounter Procedures Procedure Name Priority Date/Time Associated Diagnosis Comme nts STREP GRP A, RAPID Waiting 08/12/2000 1:12 PM Res ults for this SCREEN LIFE SKILLS CONSULTANT procedure are i n the results section. documented in this encounter Results RAPID, GPA STREP SCREEN (WAITI (08/12/2000 1:12 PM LIFE SKILLS CONSULTANT) [facility] Method Time Signature Patient Home [id number] [facility]Dog [facility] Phone # Patient Work None [facility] Phone # Grp A Rapid Negative [facility] Screen Grp A Culture Negative [facility] Final Specimen Anatomical Collection Method Collection Time Receive d Time (Source) Location / / Volume Laterality 08/12/2000 1:12 PM 1 1:13 [facility] PM [facility] Madisyn Smalls APRN, CNP LAB_1 Performing Organization Address City/State/ZIP Code Phon e Number [facility] [phone] [facility] [address] [phone] documented in this encounter Visit Diagnoses Not on filedocumented in this encounter Care Teams B[employer] Library Technical Assistant Relationship Specialty Start Date End Date Britney Jarrett MD PCP - General 04/15/13 04/03/161999 [place] [address] documented as of this encounter
--- OUTSIDE RECORDS SUMMARY | 2022-04-23 15:39 | XMS_ITS | Encounter Summary ---
:1970 Author Organization [facility] Address [address] [place] [address] Care Team Providers Name Role Phone Madelin Becerril MD Primary Care Provider Reason for Visit Reason Comments PAIN, NOS VIA INTERFACE Encounter Details Date Type Department Care Team Description 03/26/2000 Office Visit [facility] [place] [facility] Saravanan, Andrade MYALGIA AND MYOSITIS NOS; [address] C, DDS, MS ENTHESOPATHY, [place] [address] Social History Tobacco Use Types Packs/Day Years Used Date Smoking Tobacco: Never Assessed Sex Assigned at Date Recorded Not on file documented as of this encounter Plan of Treatment Not on filedocumented as of this encounter Visit Diagnoses Diagnosis Myalgia and myositis, unspecified Mylagia and myositis, unspecified Enthesopathy of unspecified site documented in this encounter Care Teams Judicial Assistant Relationship Specialty Start Date End Date Madelin Becerril MD PCP - General 07/17/1996 07/20/[address] [place] [address] documented as of this encounter
--- OUTSIDE RECORDS SUMMARY | 2022-04-23 15:39 | XMS_ITS | Encounter Summary ---
:1970 Author Organization [facility] Address [address], [place] [address] Care Team Providers Name Role Phone Britney Jarrett MD Primary Care Provider Encounter Details Date Type Department Care Team Description 01/23/2000 Orders Only Madelin Becerril MD [address] [place], [place] [address] (Wo rk) Social History Tobacco Use Types [...] documented as of this encounter Care Teams Asphalt Heater Tender Relationship Specialty Start Date End Date Britney Jarrett MD PCP - General 04/04/161999 [place] [address] documented as of this encounter
--- OUTSIDE RECORDS SUMMARY | 2022-04-23 15:39 | XMS_ITS | Encounter Summary ---
:1970 Author Organization [facility] Address [address] [place] [address] Care Team Providers Name Role Phone Madelin Becerril MD Primary Care Provider Reason for Visit Reason Comments PAIN, NOS VIA INTERFACE Encounter Details Date Type Department Care Team Description 03/26/2000 Office Visit [facility] Rilesterr, Vanessa MYALGIA AND MYOSITIS [address] M, [place] [address] Social History Tobacco Use Types Packs/Day Years Used Date Smoking Tobacco: Never Assessed Sex Assigned at Date Recorded Not on file documented as of this encounter Plan of Treatment Not on filedocumented as of this encounter Visit Diagnoses Diagnosis Myalgia and myositis, unspecified Mylagia and myositis, unspecified documented in this encounter Care Teams Personal Development Mentor Relationship Specialty Start Date End Date Madelin Becerril MD PCP - General 07/17/1996 07/20/[address] [place] [address] documented as of this encounter
--- OUTSIDE RECORDS SUMMARY | 2022-04-23 15:39 | XMS_ITS | Encounter Summary ---
:1970 Author Organization [facility] Address [address] [address] Care Team Providers Name Role Phone Unassigned, Provider Primary Care Provider Unavailable Encounter Details Date Type Department Care Team Description 07/24/2000 Office Visit [facility] Abby Quan VACC INE FOR INFLUENZA Practice [facility] [place] [id number] [place] [address] [phone] Social History Tobacco Use Types Packs/Day Years Used Date Smoking Tobacco: Never Assessed Sex Assigned at Date Recorded Not on file documented as of this encounter Plan of Treatment Not on filedocumented as of this encounter Visit Diagnoses Diagnosis VACCINE FOR INFLUENZA documented in this encounter Care Teams Agricultural Services Director Relationship Specialty Start Date End Date Unassigned, Provider PCP - General 07/21/00 03/02/[address] [place] [address] documented as of this encounter
--- OUTSIDE RECORDS SUMMARY | 2022-04-23 15:39 | XMS_ITS | Encounter Summary ---
:1970 Author Organization [facility] Address [address] [place] [address] Care Team Providers Name Role Phone Madelin Becerril MD Primary Care Provider Reason for Visit Reason Comments PAIN, NOS VIA INTERFACE Encounter Details Date Type Department Care Team Description 01/28/2000 Office Visit [facility] Estevan, Alesia [facility]CHIC [facility] [address] [place] [address] CONDITION [phone] Social History Tobacco Use Types Packs/Day Years Used Date Smoking Tobacco: Never Assessed Sex Assigned at Date Recorded Not on file documented as of this encounter Plan of Treatment Not on filedocumented as of this encounter Visit Diagnoses Diagnosis Psychic factors associated with diseases classified elsewhere ([facility]) Psychic factors associated with diseases classified elsewhere documented in this encounter Care Teams Director Agricultural Services Relationship Specialty Start Date End Date Madelin Becerril MD PCP - General 07/17/1996 07/20/00 [address] [place] [address] documented as of this encounter
--- OUTSIDE RECORDS SUMMARY | 2022-04-23 15:39 | XMS_ITS | Encounter Summary ---
:1970 Author Organization [facility] Address [address] [place] [address] Care Team Providers Name Role Phone Madelin Becerril MD Primary Care Provider Encounter Details Date Type Department Care Team Description 01/28/2000 Office Visit Alesia Barreto Social History Tobacco Use Types Packs/Day Years Used Date Smoking Tobacco: Never Assessed Sex Assigned at Date Recorded Not on file documented as of this encounter Progress Notes Alesia Barreto - 01/28/2000 12:00 AM CDTSYMPTOMS: The patient is a 29-year-old female who was referred by Dr. Andrade Coe for management of TMJ symptoms, relaxation training and stress management. Her primary symptoms are jaw pain, headaches and musculoskeletal pain. HISTORY OF SYMPTOMS: Please refer to the patient's medical chart for a summary of her medical treatments. Her medical chart was not available for review for today's appointment. The patient, who likes to be known as Josie, reported that she could only stay 45 minutes because of some scheduling conflicts with her . She reported that she has probably had TMJ symptoms since high school when she was participating in gymnastics. The intensity and frequency of her symptoms have increased in the past 1-1 years. 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 She described her TMJ symptoms as problems with daily bilateral jaw pain (which is experienced as a tired achy feeling), that she wakes up to in the morning, that goes up and down during the course of the day depending on the level of stress and the activity level of that day, and seems to be better on vacation, and problems with headaches. She described herself as having two types of headaches. The first type of headache is described as a tension headache experienced as a dull achy sensation in her bilateral temples. Oftentimes, this area feels tender to the touch. It occurs 2-3 x a week and will often begin during supper. The second type of headache is described as a migraine-like headache that is experienced across her forehead, is sometimes accompanied by nausea, and results in increased sensitivity (having a sensation that blinking hurts and her hair hurts). She thought that laying down sometimes helped with the migraine headaches and that a possible food trigger for her migraine headaches might be MSG. The parafunctional habits that she acknowledged as possibly troublesome for her are muscle bracing and clenching (especially when she is feeling angry, frustrated or concentrating). She described her current sleep as not very good. Prior to the of her children, she reported that she had no difficulties in falling asleep nor sleeping through the night. Since the of her children, she described her sleep as more choppy and reported that she will awaken often during the night. She gets by on 7-8 hours of sleep when in reality she might need 9 or 10 hours of sleep. Although Dr. Coe prescribed a muscle relaxant for her, she reported that she only took it one time because she is concerned that she will not be able to awaken during the night if her kids need her. She reported that her is a airborne mission systems who often works out of town, resulting in her oftentimes being a single parents. In terms of exercise, she exercises 30-40 minutes every other day (doing Nahid Armando, roller blading, riding the bicycle, or using her [place] [employer]). She described her diet as good and regular and indicated that she does not drink any caffeinated beverages. She did not express any concerns about dehydration. PERSONAL HISTORY: Although we had a 45-minute appointment, 15 minutes of that time was spent in explaining the suggestion I was making to her at the end of the consultation. Consequently, we did not have as much time to gather information about her symptoms nor her family life. I know she is and has two children who are ages 7 and 4. Her has worked for the past 11 years as a airborne mission systems. For the past five years, they have been working on his business together out of their home. As a airborne mission systems, she reported that he is often traveling, which results in her doing a lot of single parenting. 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 MENTAL STATUS: The patient was a well groomed woman who appeared alert and cooperative. She had no difficulties in initiating and maintaining the conversation. Her affect was appropriate for the topics covered. She did not appear to be in acute distress, did not express any suicidal nor homicidal ideation, and did not express any thought disorder. ASSESSMENT: There appears to be a number of parafunctional triggers (muscle bracing, clenching), some self care triggers (sleep deprivation), and some psychosocial triggers (balancing the responsibilities of work and home, being a single parent when her is often out of town for work) that probably contribute to the level of intensity and frequency of her physical symptoms. I used the mind/body framework to help her understand the nature of her symptoms and to help her understand how these different factors may affect her symptoms. Bainbridge I - 316.00 (psychological factors associated with medical condition) Bainbridge II - no diagnosis Bainbridge III - TMJ symptoms Bainbridge IV - balancing the responsibilities of work and home Bainbridge V - GAF is 75-80 The amount of time spent with the patient was 45 minutes. PLAN: The patient will [facility]. I asked her to get a copy of the relaxation tape, taught her the hip pocket technique for monitoring her parafunctional habits, encouraged her to sleep 9-10 hours a night, encouraged her to take a wind-down time before she goes to bed, taught her the meditation breath to help her fall back asleep when she awakens in the middle of the night, encouraged her to exercise in the morning or late afternoons, and encouraged her to take the muscle relaxant prescribed by Dr. Coe. cc: documented in this encounter Plan of Treatment Not on filedocumented as of this encounter Visit Diagnoses Not on filedocumented in this encounter Care Teams Phlebotomist Medical Lab Assistant Relationship Specialty Start Date End Date Madelin Becerril MD PCP - General 07/17/1996 07/20/[address] [place] [address] documented as of this encounter
--- OUTSIDE RECORDS SUMMARY | 2022-04-23 15:39 | XMS_ITS | Encounter Summary ---
:1970 Author Organization [facility] Address [address] [place] [address] Care Team Providers Name Role Phone Britney Jarrett MD Primary Care Provider Encounter Details Date Type Department Care Team Description 12/24/1999 Orders Only Madisyn Villanueva, [address] [place], [place], [place] [phone] [facility] [phone] [place] [address] (Wo rk) Social History Tobacco Use Types Packs/Day Years Used Date Smoking Tobacco: Never Assessed Sex Assigned at Date Recorded Not on file documented as of this encounter Plan of Treatment Not on filedocumented as of this encounter Procedures Procedure Name Priority Date/Time Associated Diagnosis Comme nts PAP TEST, ROUTINE Routine 12/24/1999 9:15 AM Resu lts for this CDT procedure are i n the results section. documented in this encounter Results PAP SMEAR, ROUTINE (12/24/1999 9:15 AM CDT) [facility] Method Time Signature Pap Smear, See Separate Report [facility] Routine Performed at [facility] Specimen Anatomical Collection Method Collection Time Receive d Time (Source) Location / / Volume Laterality 12/24/1999 9:15 AM 0 3:46 CDT PM CDT Madisyn Smalls APRN, CNP LAB_1 Performing Organization Address City/State/ZIP Code Phon e Number [facility] [phone] [facility] [address] [place] [phone] documented in this encounter Visit Diagnoses Not on filedocumented in this encounter Care Teams Keyliner Relationship Specialty Start Date End Date Britney Jarrett MD PCP - General 04/15/13 04/03/161999 [place] [address] documented as of this encounter
--- OUTSIDE RECORDS SUMMARY | 2022-04-23 15:39 | XMS_ITS | Encounter Summary ---
:1970 Author Organization [facility] Address [address] [place] [address] Care Team Providers Name Role Phone Madelin Becerril MD Primary Care Provider Reason for Visit Reason Comments PAIN, NOS VIA INTERFACE Encounter Details Date Type Department Care Team Description 01/23/2000 Office Visit [facility] TMD Frankie, Karmen A, MYALGIA AND MYOSITIS [address] [place] [address] Social History Tobacco Use Types Packs/Day Years Used Date Smoking Tobacco: Never Assessed Sex Assigned at Date Recorded Not on file documented as of this encounter Plan of Treatment Not on filedocumented as of this encounter Visit Diagnoses Diagnosis Myalgia and myositis, unspecified Mylagia and myositis, unspecified documented in this encounter Care Teams Polysomnograph Tech Relationship Specialty Start Date End Date Madelin Becerril MD PCP - General 07/17/1996 07/20/[id number] [place] [address] [place] [id number] documented as of this encounter
--- OUTSIDE RECORDS SUMMARY | 2022-04-23 15:40 | XMS_ITS | Encounter Summary ---
:1970 Author Organization [facility] Address [address] [place] [address] Care Team Providers Name Role Phone Madelin Becerril MD Primary Care Provider Encounter Details Date Type Department Care Team Description 12/26/1997 Office Visit [facility] Franky Malagon MD [place] [address] [address] PHARYNGITIS(SORE [id number] THROAT) [place], [place] [phone] (W ork) [address] [phone] Social History Tobacco Use Types Packs/Day Years Used Date Smoking Tobacco: Never Assessed Sex Assigned at Date Recorded Not on file documented as of this encounter Progress Notes Marlene Ewing - 12/26/1997 12:00 AM CDTS: Josie Booker is a 27-year-old female who is here today because of a scratchy throat. She has had this for about 10 days. It subsided and now it is back again. She states it radiates to her ears when she swallows. It feels like sharp pain in the back of her throat. She had not had any conjunctivitis and no significant stuffy nose. No known history of strep exposure and no family members are ill. She does have two small children. They have not been exposed to strep either as far as she knows. O: On physical examination, temperature is 98.7, pulse is 88, respiratory rate 18 and blood pressure is 100/60. In general, she is in no acute distress. HEENT exam shows the tympanic membranes to be clear bilaterally and the canals are clear bilaterally. No significant erythema or swelling to the face. Conjunctivae are clear without mattering. Posterior pharynx is very mildly red. No significant adenopathy. Rapid strep was negative. A: Pharyngitis, allergic versus viral. P: Comfort cares as directed. If high fever or associated symptoms, call primary physician. cc: documented in this encounter Plan of Treatment Not on filedocumented as of this encounter Visit Diagnoses Diagnosis Acute pharyngitis documented in this encounter Care Teams Mgmt Analyst Relationship Specialty Start Date End Date Madelin Becerril MD PCP - General 07/17/1996 07/20/[address] [place] [address] documented as of this encounter
--- OUTSIDE RECORDS SUMMARY | 2022-04-23 15:40 | XMS_ITS | Encounter Summary ---
:1970 Author Organization [facility] Address [address] [place] [address] Care Team Providers Name Role Phone Madelin Becerril MD Primary Care Provider Encounter Details Date Type Department Care Team Description 11/03/1997 Office Visit [facility] Kilo Winston DIFF CYSTIC Medicine MD MASTOPATHY [address] [place], [place] [address] Social History Tobacco Use Types Packs/Day Years Used Date Smoking Tobacco: Never Assessed Sex Assigned at Date Recorded Not on file documented as of this encounter Progress Notes Kilo Winston - 11/03/1997 12:00 AM CSTS This 27-year-old woman has discovered a nodularity in the upper outer quadrant of her right breast. O In the presence of her and nurse Rosie Sylvester, a professional breast examination was performed. There is no nipple discharge. No nipple bleeding. No nipple inversion. No dimple. No dominant mass. There is an area of fine, granular nodularity upper outer quadrant right breast. Each axilla is clear of lymphadenopathy. A Mammograms appear perfectly benign with considerable fibroglandular density in the upper outer quadrant right breast. P The patient is quite nervous. I offered both observation and biopsy, stereotactic biopsy would only confuse the issue as it would not obtain an adequate sample as there is almost l/4 of the breast involved in the fibroglandular density. I have offered excisional biopsy to the patient. She will consider. cc: Madelin Huber MD documented in this encounter Plan of Treatment Not on filedocumented as of this encounter Visit Diagnoses Diagnosis Diffuse cystic mastopathy documented in this encounter Care Teams Regulatory Affairs Consultant Relationship Specialty Start Date End Date Madelin Becerril MD PCP - General 07/17/1996 07/20/[address] [place] [address] documented as of this encounter
--- OUTSIDE RECORDS SUMMARY | 2022-04-23 15:40 | XMS_ITS | Encounter Summary ---
:1970 Author [facility] Address [address] [place] [address] Care Team Providers Name Role Phone Madelin Becerril MD Primary Care Provider Encounter Details Date Type Department Care Team Description 12/16/1997 Outpatient Kilo Winston MD Social History Tobacco Use Types Packs/Day Years Used Date Smoking Tobacco: Never Assessed Sex Assigned at Date Recorded Not on file documented as of this encounter Plan of Treatment Not on filedocumented as of this encounter Visit Diagnoses Diagnosis Sebaceous cyst documented in this encounter Care Teams Rotary Filter Operator Relationship Specialty Start Date End Date Madelin Becerril MD PCP - General 07/17/1996 07/20/[address] [place] [address] documented as of this encounter
--- OUTSIDE RECORDS SUMMARY | 2022-04-23 15:40 | XMS_ITS | Encounter Summary ---
:1970 [facility] Address [address], [place] [address] Care Team Providers Name Role Phone Madelin Becerril MD Primary Care Provider Encounter Details Date Type Department Care Team Description 12/13/1997 Office Visit [facility] Madelin Becerril, LUM P OR MASS IN BREAST; Practice MD PREOP EXAM OTHER SPECIFIED [id number] [place] [address] [address] [place], [place] [address] [phone] Social History Tobacco Use Types Packs/Day Years Used Date Smoking Tobacco: Never Assessed Sex Assigned at Date Recorded Not on file documented as of this encounter Plan of Treatment Not on filedocumented as of this encounter Visit Diagnoses Diagnosis Lump or mass in breast Other specified pre-operative examinatio n documented in this encounter Care Teams Work Ticket Distributor Relationship Specialty Start Date End Date Madelin Becerril MD PCP - General 07/17/1996 07/20/00 [address] [place] [address] documented as of this encounter
--- OUTSIDE RECORDS SUMMARY | 2022-04-23 15:40 | XMS_ITS | Encounter Summary ---
:1970 Author Organization [facility] Address [address] [place] [address] Care Team Providers Name Role Phone Madelin Becerril MD Primary Care Provider Reason for Visit Reason Comments EARACHE Encounter Details Date Type Department Care Team Description 02/18/1998 Telephone Careline Christa Christian, RN E[facility] [address] [place], [place] [address] [phone] [place] [address] Social History Tobacco Use Types Packs/Day Years Used Date Smoking Tobacco: Never Assessed Sex Assigned at Date Recorded Not on file documented as of this encounter Nursing Notes 02/18/1998 11:59 PM CDT >> CALL RECEIVED. Contact: [phone] >> CHRISTA CHRISTIAN 02/18/1998 12:50 pm Patient calls concerning self. States URI x 2 weeks with nasal congestion. c/o facial pressure and right ear pain today. Denies drainage. States difficulty hearing sound is muffled, Denies fever, vomiting, cough , wheeze or other symptoms. no stat symptoms per [facility] ear pain guidelines, copyright (c) 1993 [facility]: healthy, otitis MEDICATIONS: sinutab, vitamins ALLERGIES: none PLAN: AVUCC 12 min adult med documented in this encounter Plan of Treatment Not on filedocumented as of this encounter Visit Diagnoses Not on filedocumented in this encounter Care Teams Family Resource Coordinator Relationship Specialty Start Date End Date Madelin Becerril MD PCP - General 07/17/1996 07/20/00 [address] [place] [address] documented as of this encounter
--- OUTSIDE RECORDS SUMMARY | 2022-04-23 15:40 | XMS_ITS | Encounter Summary ---
:1970 Author Organization [facility] Address [address] [place] [address] Care Team Providers Name Role Phone Madelin Becerril MD Primary Care Provider Encounter Details Date Type Department Care Team Description 02/18/1998 Office Visit [facility] Shirley Carrillo MD OTITIS MEDIA [facility] [address] [facility] [address] [place], [place] [phone] (Wo rk) Social History Tobacco Use Types Packs/Day Years Used Date Smoking Tobacco: Never Assessed Sex Assigned at Date Recorded Not on file documented as of this encounter Progress Notes Ladi Arredondo - 02/18/1998 12:00 AM CDTS. This is a 27-year-old woman with a two week history of upper respiratory infection and nasal congestion. She states that she has been having some clear nasal discharge, which is now a little bit greener, some maxillary sinus pressure. She states, however, that now she is actually being able to breath a little easier through her nose, but that she started with some right ear pain today. She has a history of otitis media in the past, and often gets them after a upper respiratory infection. She has had a slight cough, and last week she had a fever to 101. Her appetite is slightly decreased, and she is sleeping OK. There is no wheezing or chills, sweats, or vomiting, or persistent cough. O. Alert, no acute distress, blood pressure 110/60, temperature 98.5 orally. Left tympanic membrane shows a little bit of old scaring but is normal color and normal light reflex and landmarks. Right tympanic membrane is very erythematous superiorly and anteriorly with a fluid bubble bulging outward posteriorly and superiorly that is clear to cloudy. Sinuses are mildly tender bilaterally maxillary. Nasal mucosa is slightly red but not boggy or swollen. Oropharynx is pink. Neck supple, non-tender. Chest clear to auscultation. CV, S1 and S2 without murmurs or gallops. A. and P. Right otitis media, potentially early sinusitis. Zithromax, 250 mg #6, 2 po day 1, then 1 po day 2 through 5. Increase fluids, may use some ocean spray or [id number] nose spray for the next two to three days if needed. If symptoms increase or persist over the next three to five days she is to return to clinic for a recheck. cc: documented in this encounter Plan of Treatment Not on filedocumented as of this encounter Visit Diagnoses Diagnosis Unspecified otitis media documented in this encounter Care Teams Mortgage Funder Relationship Specialty Start Date End Date Madelin Becerril MD PCP - General 07/17/1996 07/20/[address] [place] [address] documented as of this encounter
--- OUTSIDE RECORDS SUMMARY | 2022-04-23 15:40 | XMS_ITS | Encounter Summary ---
:1970 Author Organization [facility] Address [address] [place] [address] Care Team Providers Name Role Phone Madelin Becerril MD Primary Care Provider Encounter Details Date Type Department Care Team Description 10/21/1997 Office Visit Madelin Becerril MD PREVENTIVE CARE EXAM [address] [place], [place] [address] (Wo rk) Social History Tobacco Use Types Packs/Day Years Used Date Smoking Tobacco: Never Assessed Sex Assigned at Date Recorded Not on file documented as of this encounter Progress Notes Madelin Becerril - 10/21/1997 12:00 AM CSTS: This is a 26-year-old who's here for a physical and pap. She has three major concerns: 1) She's had some moles. She'd like to have two moles checked. First one on the left lower leg. It's gotten a little bit bigger. It bleeds. She was seen before and was told that it was not a mole. Her second mole is on the lower back. Is dark in color, seems to be near a scar for a previous back surgery. 2) Second concern is a right breast lump. Seems to be small beady-like size. Noticed it the last four weeks, has not changed in size, is nontender, has some clear discharge from the breast, sometimes milky in color. No family history of breast cancer. Mother had benign breast biopsy. She's concerned because she's been reading more about breast cancers and wants to make sure everything is okay. She feels that she has lumpy breasts. Noticed at her last ovulation time she had increased breast tenderness. 3) Her third concern is weight loss. She was interested in decreasing her weight. Noticed that her weight is what made her depressed over the last three months. She's on Metabolife now and has noticed a 5 to 6 pound weight loss and feels good about exercising. Goes to the gym maybe twice a week and is active with her children. She did look into liposuction. Was not sure she wants to continue with this plan. Her last pap smear was in . She hasn't had normal paps smears recently. Last menstrual period 10-10-97. Para 2/0/0/2. with vasectomy. Last tetanus in . Last cholesterol was normal. She denies any other significant concerns. O: Alert and cooperative. WEIGHT: 133. BP: 120/80. Extraocular movements were intact. Pupils equal, round, reacted to light. Nose, mouth clear. Neck no thyromegaly. Lungs clear. Heart regular rate and rhythm. No murmur. Breast exam showed bilaterally fibrous tissue with area of concern on the right upper quadrant did show fibrous tissue with a small area with about 1 to 2 mm inside a small ridge-like feeling that she was concerned about was on top of fibrous tissue. She had no nipple discharge. No other abnormal masses. She did have fibrous tissue on the left breast. Abdomen flat and nontender. External genitalia, vagina and cervix appears within normal limits. Pap smear taken. Pelvic exam anteflexed uterus with non-palpable adnexa. A: Healthcare maintenance. P: Pap was sent. Mammogram was ordered but I suspect that this is more fibrous tissue but will follow-up with her mammogram. Reassurance given. The mole on her back did not look suspicious and the left lower leg lesion was not a mole but actually a small dermal fibroma. I did advise healthy eating habits and regular exercise to help with her weight loss. She'll follow-up in one year for annual physicals. cc: documented in this encounter Plan of Treatment Not on filedocumented as of this encounter Visit Diagnoses Diagnosis Routine general medical examination at [facility] Routine general medical examination at [facility] care facility documented in this encounter Care Teams Mold Shifter Relationship Specialty Start Date End Date Madelin Becerril MD PCP - General 07/17/1996 07/20/[address] [place] [address] documented as of this encounter
--- OUTSIDE RECORDS SUMMARY | 2022-04-23 15:40 | XMS_ITS | Encounter Summary ---
:1970 Author Organization [facility] Address [address], [place] [address] Care Team Providers Name Role Phone Madelin Becerril MD Primary Care Provider Encounter Details Date Type Department Care Team Description 08/08/1998 Office Visit [facility] Madelin Becerril, PRE OP EXAM OTHER SPECIFIED; Practice MD [place] [address] [facility] [address] [place], [place] [address] [phone] Social History Tobacco Use Types Packs/Day Years Used Date Smoking Tobacco: Never Assessed Sex Assigned at Date Recorded Not on file documented as of this encounter Progress Notes Madelin Becerril - 08/08/1998 12:00 AM CSTS: This is a 28-year-old here for pre- op physical examination for liposuction to be done over the buttocks, hips and upper thighs. In addition, she would like her normal physical examination done. Her last Pap was which was normal. LMP: 07/21/98, normal menses. She is with 2 children. Two vaginal deliveries. She has had multiple surgeries including bilateral carpal tunnel, tonsillectomy, PE tubes placed and back surgery. Habits include occasional caffeine but good calcium intake. No smoking or drinking. She does take a multivitamin. Last tetanus in . Last cholesterol was normal at 159. O: Pleasant, alert, cooperative. Weight: 138. B/P: 106/76. T: 97. P: 100. R: 16. EOM's normal. A: Normal exam as noted on her pre-op physical with normal breast exam with bilateral fibrous tissue scar seen in the upper right side. External genitalia, vagina and cervix appear within normal limits. Pap smear was taken. Pelvic exam showed a retroflexed uterus, non-palpable adnexa confirmed with rectal exam. Essentially the remainder of her exam was unremarkable. A: Health care maintenance. P: Will draw her cholesterol today. Completed her pre-op physical examination. Will follow-up with her in one year. IN SUMMARY: [facility] EXAM - PRE-OP P.E. cc: documented in this encounter Plan of Treatment Not on filedocumented as of this encounter Visit Diagnoses Diagnosis Other specified pre-operative examinatio n Obesity, unspecified ([facility]) Obesity, unspecified documented in this encounter Care Teams Take Down Inspector Relationship Specialty Start Date End Date Madelin Becerril MD PCP - General 07/17/1996 07/20/[address] [place] [address] documented as of this encounter
--- OUTSIDE RECORDS SUMMARY | 2022-04-23 15:40 | XMS_ITS | Encounter Summary ---
:1970 [facility] Address [address] [place] [address] Care Team Providers Name Role Phone Madelin Becerril MD Primary Care Provider Encounter Details Date Type Department Care Team Description 03/23/1998 Office Visit [facility] Kilo Winston MD [facility] FOLLOW-UP Medicine [address] [place], [place] [address] Social History Tobacco Use Types Packs/Day Years Used Date Smoking Tobacco: Never Assessed Sex Assigned at Date Recorded Not on file documented as of this encounter Progress Notes Kilo Winston - 03/23/1998 12:00 AM CDTS The patient returns s/p excisional biopsy of the right breast. O The deep induration is gone. Fortunately, the incision is beginning to pale appropriately toward the axillary side. It has not changed yet toward the clavicular side. I am encouraged that the sun damage may not result in an unsightly scar. A At any rate she has made the expected recovery. P The patient is released. She will return p.r.n. for perceived problems. cc: documented in this encounter Plan of Treatment Not on filedocumented as of this encounter Visit Diagnoses Diagnosis Follow-up examination following surgery documented in this encounter Care Teams Chief Client Officer Relationship Specialty Start Date End Date Madelin Becerril MD PCP - General 07/17/1996 07/20/[address] [place] [address] documented as of this encounter
--- OUTSIDE RECORDS SUMMARY | 2022-04-23 15:40 | XMS_ITS | Encounter Summary ---
:1970 Author Organization [facility] Address [address] [place] [address] Care Team Providers Name Role Phone Madelin Becerril MD Primary Care Provider Encounter Details Date Type Department Care Team Description 10/25/1997 Orders Only Madelin Becerril MD LUMP OR MASS IN BREAST; [address] FAMILY HX-BREAST [place], [place] [address] (Wo rk) Social History Tobacco Use Types Packs/Day Years Used Date Smoking Tobacco: Never Assessed Sex Assigned at Date Recorded Not on file documented as of this encounter Procedure Notes Bandar Kumar - 10/25/1997 12:00 AM CSTAssociated Order(s): MAMMOGRAM, BILATERAL DIAGNOSTIC CLINICAL DATA: BILAT MAMMO/PALPABLE/ADD'L VIEWS INTERPRETATION: BILATERAL MAMMOGRAM 10/25/97: Study includes focal compression views of the upper outer quadrant of the right breast. There are no suspicious masses or calcifications seen. There is no mammographic evidence for malignancy. ACR BIRADS CATEGORY 1 - NEGATIVE MAMMOGRAM Bandar Kumar MD cc: Radiology IG Madelin Huber MD ER BUNCHER OPERATOR documented in this encounter Plan of Treatment Not on filedocumented as of this encounter Procedures Procedure Name Priority Date/Time Associated Diagnosis Comme nts MAMMOGRAM, 10/25/1997 12:00 AM Lump Or Mass In Resul ts for this BILATERAL DIAGNOSTI FELLER BUNCHER OPERATOR Breast procedure are in Family Hx-Breast the results Malig section. documented in this encounter Results MAMMOGRAM, BILATERAL DIAGNOSTIC (10/25/1997 12:00 AM FELLER BUNCHER OPERATOR) Anatomical Region Laterality Modality Breast Other Specimen (Source) Anatomical Location Collection Method / Collectio n Time Received Time / Laterality Volume 10/25/1997 Transcriptions Bandar Kumar - 10/25/1997 12 :00 AM CSTCLINICAL DATA: BILAT MAMMO/PALPABLE/ADD'L VIEWS INTERPRETATION: BILATERAL MAMMOGRAM 10/25: Study includes focal compression views of the upper outer chad drant of the right breast. There are no suspicious masses or calcif ications seen. There is no mammographic evidence for malignancy. ACR BIRADS CATEGORY 1 - NEGATIVE MAMMOGR AM Bandar Kumar MD cc: Radiology IG Madelin Huber MD Madeiln Becerril MD RAD_BI documented in this encounter Visit Diagnoses Diagnosis Lump or mass in breast Family history of malignant neoplasm of breast documented in this encounter Care Teams Low Pressure Kettle Operator Relationship Specialty Start Date End Date Madelin Becerril MD PCP - General 07/17/1996 07/20/[address] [place] [address] documented as of this encounter
--- OUTSIDE RECORDS SUMMARY | 2022-04-23 15:40 | XMS_ITS | Encounter Summary ---
:1970 Author Organization [facility] Address [address] [place] [address] Care Team Providers Name Role Phone Madelin Becerril MD Primary Care Provider Encounter Details Date Type Department Care Team Description 03/21/1998 Office Visit [facility] Enmanuel Hutchison MD CERVICALGIA [address] [facility] [address] [place], [place] [address] [place] [address] [phone] (Wo rk) Social History Tobacco Use Types Packs/Day Years Used Date Smoking Tobacco: Never Assessed Sex Assigned at Date Recorded Not on file documented as of this encounter Progress Notes Enmanuel Hutchison - 03/21/1998 12:00 AM CDTS: The patient is a 27-year-old female who is in for neck pain. She states that this has been present for approximately five days. She has a history of back surgery, going back several years, and she has occasionally had some mild discomfort in her neck but it has never been as significant as this. Her pain started innocently enough after no injury and it has slowly increased over the first couple of days. She then went to a massage therapist and the massage therapist thought that she had something more going on than just needing a relaxant massage. She, therefore, came in here. She has tried some Tylenol which she said has not been helpful. She has taken a couple of ibuprofen and that has helped some of her pain and discomfort. O: Her examination today reveals that she has approximately 75% of motion in all directions of her neck. She has tenderness at the insertion of the trapezius at the occiput and she has tenderness going down to the superior angle of the scapula bilaterally and out to the shoulder. She has some tenderness along the rhomboids and the inferior trapezius muscles also has some mild tenderness. Her lower back is not tender and she has no other symptom of other illness on general examination. A: Neck pain secondary to unknown mild. P: Most likely recommend that she do range of motion exercises and I discussed this with her and gave her neck book. I recommended that she go on 2400 mg of ibuprofen per day and recommended that she continue the ice and heat that she has been recommended by the massage therapist. I reassured her that this was a temporary process and that this would take care of itself with time without any treatment at all. cc: documented in this encounter Plan of Treatment Not on filedocumented as of this encounter Visit Diagnoses Diagnosis Cervicalgia documented in this encounter Care Teams End Polisher Relationship Specialty Start Date End Date Madelin Becerril MD PCP - General 07/17/1996 07/20/[address] [place] [address] documented as of this encounter
--- OUTSIDE RECORDS SUMMARY | 2022-04-23 15:40 | XMS_ITS | Encounter Summary ---
:1970 Author Organization Formerly [facility] Address [address] [place] [address] Care Team Providers Name Role Phone Madelin Becerril MD Primary Care Provider Encounter Details Date Type Department Care Team Description 08/08/1998 Orders Only Madelin Becerril MD [address] [place], [place] [address] (Wo rk) Social History Tobacco Use Types Packs/Day Years Used Date Smoking Tobacco: Never Assessed Sex Assigned at Date Recorded Not on file documented as of this encounter Plan of Treatment Not on filedocumented as of this encounter Procedures Procedure Name Priority Date/Time Associated Diagnosis Comme nts HEMOGLOBIN, BLOOD Waiting 08/08/1998 2:51 PM Resu lts for this STUNT WOMAN procedure are i n the results section. CHOLESTEROL, TOTAL Routine 08/08/1998 2:51 PM Res ults for this AND HDL STUNT WOMAN procedure are i n the results section. documented in this encounter Results CHOLESTEROL, TOTAL AND HDL (08/08/1998 2:51 PM STUNT WOMAN) P athologist Signature Cholesterol 166 <200 mg/dl [facility] HDL 54 >35 mg/dl Eat Specimen Anatomical Collection Method Collection Time Receive d Time (Source) Location / / Volume Laterality 08/08/1998 2:51 PM 199 9 2:52 [facility] PM STUN[facility] WOMAN Madelin Becerril MD LAB_1 Performing Organization Address City/State/ZIP Code Phon e Number [facility] [phone] [facility] [address] [phone] HEMOGLOBIN, BLOOD (08/08/1998 2:51 PM ST[facility]T [facility]OMAN) athologist Signature Hemoglobin 14.1 12.0 - 16.0 [facility] g/dl Specimen Anatomical Collection Method Collection Time Receive d Time (Source) Location / / Volume Laterality 08/08/1998 2:51 PM 9 2:52 [facility] PM [facility]OMAN Madelin Becerril MD LAB_1 Performing Organization Address City/State/ZIP Code Phon e Number [facility] [phone] [facility] [address] [phone] documented in this encounter Visit Diagnoses Not on filedocumented in this encounter Care Teams Sustainable Design Coordinator Relationship Specialty Start Date End Date Madelin Becerril MD PCP - General 07/17/1996 07/20/[address] [place] [address] documented as of this encounter
--- OUTSIDE RECORDS SUMMARY | 2022-04-23 15:40 | XMS_ITS | Encounter Summary ---
:1970 Author Organization [facility] Address [address] [place] [address] Care Team Providers Name Role Phone Madelin Becerril MD Primary Care Provider Encounter Details Date Type Department Care Team Description 01/16/1998 Office Visit [place] [facility] Kilo Winston MD [facility] FOLLOW-UP Medicine [address] [place], [place] [address] Social History Tobacco Use Types Packs/Day Years Used Date Smoking Tobacco: Never Assessed Sex Assigned at Date Recorded Not on file documented as of this encounter Progress Notes Kilo Winston - 01/16/1998 12:00 AM CDTSymptoms: It seems a little swollen. O: She has an eschar over the incision and she had a serious sunburn postoperatively unfortunately. A: She is healing appropriately in the depths. P: I'll see her again in two months. She'll protect herself from the sun in the interim. cc: documented in this encounter Plan of Treatment Not on filedocumented as of this encounter Visit Diagnoses Diagnosis Follow-up examination following surgery documented in this encounter Care Teams Surgery Attendant Relationship Specialty Start Date End Date Madelin Becerril MD PCP - General 07/17/1996 07/20/[address] [place] [address] documented as of this encounter
--- OUTSIDE RECORDS SUMMARY | 2022-04-23 15:40 | XMS_ITS | Encounter Summary ---
:1970 Author Organization [facility] Address [address] [place] [address] Care Team Providers Name Role Phone Madelin Becerril MD Primary Care Provider Reason for Visit Reason Comments LACERATION, FINGER av [facility] [place] adult appt Encounter Details Date Type Department Care Team Description 04/27/1999 Telephone Careline Radha [place], LACERATION, FINGER (av [address] RN [facility] 24 min adult appt) [place], [place] [address] [facility] [phone] [facility] [address] Social History Tobacco Use Types Packs/Day Years Used Date Smoking Tobacco: Never Assessed Sex Assigned at Date Recorded Not on file documented as of this encounter Nursing Notes 04/27/1999 11:59 PM CDT >> CALL RECEIVED. Contact: >> RADHA MORRIS 04/27/1999 06:36 pm CONCERN: 28 year old female calling and states that she cut her finger. STAT SYMPTOMS: none per Laceration CNG 1997. ASSESSMENT: Incid-1/2 hr. ago. Wound assessment: depth/description: 1/2 inch long and deep-over knuckle, foreign material/object in wound: no, moderate amt of bleeding, bleeding is controlled, sensation/movement of area beyond site: some tingling. Signs of infection: none. Work related: no. Last tetanus shot: within 10 years. PMH: healthy. CURRENT MEDICATIONS: no. MEDICATION ALLERGIES: no. HOME TREATMENT: not discussed. PLAN: UC tonight. documented in this encounter Plan of Treatment Not on filedocumented as of this encounter Visit Diagnoses Not on filedocumented in this encounter Care Teams Carbon Brushes Assembler Relationship Specialty Start Date End Date Madelin Becerril MD PCP - General 07/17/1996 07/20/[address] [place] [address] documented as of this encounter
--- OUTSIDE RECORDS SUMMARY | 2022-04-23 15:40 | XMS_ITS | Encounter Summary ---
:1970 Author Organization [facility] Address [address] [place] [address] Care Team Providers Name Role Phone Madelin Becerril MD Primary Care Provider Reason for Visit Reason Comments Suture/Staple Removal VIA INTERFACE Encounter Details Date Type Department Care Team Description 05/04/1999 Office Visit [place] [facility] Unknown, DRESSNG CHANGE Practice Physician SUTURE/STAPLE REMOVAL [address] [facility] [address], [place] [address] [place], [place] [phone] [address] Social History Tobacco Use Types Packs/Day Years Used Date Smoking Tobacco: Never Assessed Sex Assigned at Date Recorded Not on file documented as of this encounter Plan of Treatment Not on filedocumented as of this encounter Visit Diagnoses Diagnosis Attention to dressings and sutures documented in this encounter Care Teams Supervisor Bakery Sanitation Relationship Specialty Start Date End Date Madelin Becerril MD PCP - General 07/17/1996 07/20/00 [address] [place] [address] documented as of this encounter
--- OUTSIDE RECORDS SUMMARY | 2022-04-23 15:40 | XMS_ITS | Encounter Summary ---
:1970 Author Organization [facility] Address [address] [place] [address] Care Team Providers Name Role Phone Madelin Becerril MD Primary Care Provider Reason for Visit Reason Comments RAO GUTIERREZ MD Encounter Details Date Type Department Care Team Description 12/26/1997 Telephone Careline Keily Mcknight SORE THROAT, MD [address] STUCCO PLASTERER, ASBESTOS COVERER [place], [place] [address] [phone] [place], [place] [address] (Wo rk) Social History Tobacco Use Types Packs/Day Years Used Date Smoking Tobacco: Never Assessed Sex Assigned at Date Recorded Not on file documented as of this encounter Nursing Notes 12/26/1997 11:59 PM CDT >> CALL RECEIVED. Contact: [phone] self >> KEILY MCKNIGHT 12/26/1997 09:33 am sore throat x 10d, went away, now back again, no fever, no other sx, radiates to ears when swallows, no dyspnea, can swallow, very painful, throat red, no chills documented in this encounter Plan of Treatment Not on filedocumented as of this encounter Visit Diagnoses Not on filedocumented in this encounter Care Teams Configuration Management Advisor Relationship Specialty Start Date End Date Madelin Becerril MD PCP - General 07/17/1996 07/20/00 [address] [address] documented as of this encounter
--- OUTSIDE RECORDS SUMMARY | 2022-04-23 15:40 | XMS_ITS | Encounter Summary ---
:1970 Author Organization [facility] Address [address] [place] [address] Care Team Providers Name Role Phone Madelin Becerril MD Primary Care Provider Reason for Visit Reason Comments VAGINITIS VIA INTERFACE Encounter Details Date Type Department Care Team Description 06/14/1999 Office Visit [facility] Diane Johnston VAGINITIS/VULVOVAGINIT Practice BMD IS, UNSPEC(BACTERIAL V [address] [phone] [address] Social History Tobacco Use Types Packs/Day Years Used Date Smoking Tobacco: Never Assessed Sex Assigned at Date Recorded Not on file documented as of this encounter Progress Notes Diane Johnston - 06/14/1999 12:00 AM CSTS: Miss Booker comes to clinic today for evaluation of vaginitis. She tells me that she's not had this problem in the past and notes now that for the past week and half she's had vaginal itching both internally and at the external perineum. She has had a discharge that has been non-odorous and notes that she's had an occasional red rash at the perineum. She also complains of a burning sensation with intercourse. Review of systems finds that she has no fevers, nausea or vomiting or change in bowel or bladder habits. She denies any dysuria. Previous medical history is non-contributory. She takes no medications and has no known drug allergies. O: Abdomen is soft, non-distended, non-tender. Bowel sounds are present. There is no hepatosplenomegaly. Genitourinary exam finds a normal perineum. Vaginal vault is with a thick white discharge that is non-odorous. Cervix is normal in appearance. There is no cervical motion tenderness and adnexa are benign. A wet prep is sent which reveals some scant yeast, as well as a possible clue cell. Laboratory does report that its difficult read as there is some cream contamination from the Monistat vaginal cream that she was using. A/P: Vaginitis. By history I am more concerned about bacterial vaginosis rather than yeast. However, did opt to treat her for both. I gave her a prescription for the Metrogel vaginal one applicator per vagina q hs x 5-7 nights as well as Diflucan 150 mg po x 1. Miss Booker will follow-up in clinic on an as indicated basis. IN SUMMARY: VAGINITIS cc: documented in this encounter Plan of Treatment Not on filedocumented as of this encounter Visit Diagnoses Diagnosis Vaginitis and vulvovaginitis, unspecifie d documented in this encounter Care Teams Tube And Rod Straightener Relationship Specialty Start Date End Date Madelin Becerril MD PCP - General 07/17/1996 07/20/[address] [place] [address] documented as of this encounter
--- OUTSIDE RECORDS SUMMARY | 2022-04-23 15:40 | XMS_ITS | Encounter Summary ---
:1970 Author Organization [facility] Address [address] [place] [address] Care Team Providers Name Role Phone Madelin Becerril MD Primary Care Provider Encounter Details Date Type Department Care Team Description 12/22/1997 Office Visit [place] [facility] Kilo Winston MD S [facility] FOLLOW-UP Medicine [address] [facility] [place], [place] [address] Social History Tobacco Use Types Packs/Day Years Used Date Smoking Tobacco: Never Assessed Sex Assigned at Date Recorded Not on file documented as of this encounter Progress Notes Kilo Winston - 12/22/1997 12:00 AM CDTS: Patient returns S/P benign right breast biopsy. O: She has been sun exposed. She has a rather serious sunburn of the upper torso, including the incision. A: There seems to be some superficial wound damage secondary to the sunburn. Steri-strips removed. P: I have cautioned her against reaching with her right arm and also against sun exposure. She will wear a pad over the area continually when outside, with her bra, and a bandage whenever necessary. I'll see her again in two weeks for follow-up. Pathology report is fibrocystic disease of the breast. cc: documented in this encounter Plan of Treatment Not on filedocumented as of this encounter Visit Diagnoses Diagnosis Follow-up examination following surgery documented in this encounter Care Teams Resolution Manager Relationship Specialty Start Date End Date Madelin Becerril MD PCP - General 07/17/1996 07/20/00 [address] [place] [address] documented as of this encounter
--- OUTSIDE RECORDS SUMMARY | 2022-04-23 15:40 | XMS_ITS | Encounter Summary ---
:1970 [facility] Address [address] [place] [address] Care Team Providers Name Role Phone Madelin Becerril MD Primary Care Provider Encounter Details Date Type Department Care Team Description 12/26/1997 Notes/Orders Epic, [place] [address] Social History Tobacco Use Types Packs/Day Years Used Date Smoking Tobacco: Never Assessed Sex Assigned at Date Recorded Not on file documented as of this encounter Plan of Treatment Not on filedocumented as of this encounter Procedures Procedure Name Priority Date/Time Associated Diagnosis Comme nts STREP GRP A, RAPID Waiting 12/26/1997 10:47 AM Re sults for this SCREEN CDT procedure are i n the results section. documented in this encounter Results RAPID, GPA STREP SCREEN (WAITING) (12/26/1997 10:47 AM CDT) [facility] Method Time Signature Patient Home [id number] [employer] Phone # Patient Work [id number] [employer] Phone # Grp A Rapid Negative [facility] Screen Grp A Culture Negative [facility] Final Specimen Anatomical Collection Method Collection Time Receive d Time (Source) Location / / Volume Laterality 12/26/1997 10:47 12/26/1997 AM CDT 10:48 AM CDT Narrative [facility] - 12/26/1997 10:47 AM CDT Ordered by URGENT CARE Internal Processing Epic LAB_1 Performing Organization Address City/State/ZIP Code Phon e Number [facility] [phone] [facility] [address] [phone] documented in this encounter Visit Diagnoses Not on filedocumented in this encounter Care Teams Sewing Machine Operator Semiautomatic Relationship Specialty Start Date End Date Madelin Becerril MD PCP - General 07/17/1996 07/20/[address] [place] [address] documented as of this encounter
--- OUTSIDE RECORDS SUMMARY | 2022-04-23 15:40 | XMS_ITS | Encounter Summary ---
:1970 Author Organization [facility] Address [address], [place] [address] Care Team Providers Name Role Phone Britney Jarrett MD Primary Care Provider Encounter Details Date Type Department Care Team Description 02/18/1998 Orders Only ZzLadi [place] [address] Social History Tobacco Use Types Packs/Day Years [...] documented as of this encounter Care Teams B2B Outside Sales Representative Relationship Specialty Start Date End Date Britney Jarrett MD PCP - General 04/04/161999 [place] [address] documented as of this encounter
--- OUTSIDE RECORDS SUMMARY | 2022-04-23 15:40 | XMS_ITS | Encounter Summary ---
:1970 Author [facility] Address [address] [place] [address] Care Team Providers Name Role Phone Madelin Becerril MD Primary Care Provider Reason for Visit Reason Comments SHOT,FLU VIA INTERFACE Encounter Details Date Type Department Care Team Description 05/14/1999 Office Visit [place] [facility] Unknown, VACCINE FOR INFLUENZA Practice Physician [id number] [place] [address] [address], [place] [address] [place], [place] [phone] [address] Social History Tobacco Use Types Packs/Day Years Used Date Smoking Tobacco: Never Assessed Sex Assigned at Date Recorded Not on file documented as of this encounter Plan of Treatment Not on filedocumented as of this encounter Visit Diagnoses Diagnosis VACCINE FOR INFLUENZA documented in this encounter Care Teams Dry Cleaning Machine Operator Helper Relationship Specialty Start Date End Date Madelin Becerril MD PCP - General 07/17/1996 07/20/00 [address] [address] documented as of this encounter
--- OUTSIDE RECORDS SUMMARY | 2022-04-23 15:40 | XMS_ITS | Encounter Summary ---
:1970 Author Organization [facility] Address [address] [place] [address] Care Team Providers Name Role Phone Madelin Becerril MD Primary Care Provider Reason for Visit Reason Comments LACERATION, FINGER VIA INTERFACE Encounter Details Date Type Department Care Team Description 04/27/1999 Office Visit [facility] OPEN WO UND SITE NOS; [place] VACCINE FOR TETANUS + DIPHTH [place] [address] [place], [place] [address] Social History Tobacco Use Types Packs/Day Years Used Date Smoking Tobacco: Never Assessed Sex Assigned at Date Recorded Not on file documented as of this encounter Progress Notes Omaira Godfrey - 04/27/1999 12:00 AM CDTS. 28-year-old lady who sustained a cut to the right middle finger when her hand slipped through an apple slicer. The laceration is on the dorsum of the distal interphalangeal joint. It is superficial but every time she bends it, it gaps and it bleeds. O. On exam: she has a 1-1/2 centimeter laceration over the distal interphalangeal joint of the dorsum of the middle finger of the right hand. The laceration on exam is very superficial, not involving the joint or any other structures besides the skin and very superficial subcutaneous tissue. Circulation motion sensation is intact. Temperature is 99.5, pulse 80, respiratory rate 16, blood pressure 120/70. A. and P. The wound was cleaned with Hibiclens and sutured with 5-0 Nylon under sterile conditions with local anesthesia of Lidocaine 1 percent without epinephrine. Two sutures were applied. The patient tolerated the procedure well. Wound care instructions were given. Suture removal in seven days. Follow-up if any signs of infection, and wound care instructions were given. A TD booster was given. The patient's last Tetanus shot was July 1994. IN SUMMARY: LACERATION, RIGHT MIDDLE FINGER cc: documented in this encounter Plan of Treatment Not on filedocumented as of this encounter Visit Diagnoses Diagnosis Open wound(s) (multiple) of unspecified site(s), without mention of complication Need for Td vaccine Need for prophylactic vaccination with t etanus-diphtheria (Td) documented in this encounter Care Teams Piercer Operator Relationship Specialty Start Date End Date Madelin Becerril MD PCP - General 07/17/1996 07/20/[address] [place] [address] documented as of this encounter
--- OUTSIDE RECORDS SUMMARY | 2022-04-23 15:40 | XMS_ITS | Encounter Summary ---
:1970 [facility] Address [address] [place] [address] Care Team Providers Name Role Phone Madelin Becerril MD Primary Care Provider Encounter Details Date Type Department Care Team Description 05/12/1998 Office Visit [facility] [place], [facility] Practice [address] [facility] [address] [place] [address] [phone] Social History Tobacco Use Types Packs/Day Years Used Date Smoking Tobacco: Never Assessed Sex Assigned at Date Recorded Not on file documented as of this encounter Plan of Treatment Not on filedocumented as of this encounter Visit Diagnoses Diagnosis VACCINE FOR INFLUENZA documented in this encounter Care Teams Tube And Manifold Builder Relationship Specialty Start Date End Date Madelin Becerril MD PCP - General 07/17/1996 07/20/00 [address] [place] [address] documented as of this encounter
--- OUTSIDE RECORDS SUMMARY | 2022-04-23 15:40 | XMS_ITS | Encounter Summary ---
:1970 Author Organization [facility] Address [address] [place] [address] Care Team Providers Name Role Phone Madelin Becerril MD Primary Care Provider Encounter Details Date Type Department Care Team Description 05/11/1998 Office Visit [facility] Madelin Becerril, STELLA HINKLE; Practice [facility] [address] [facility] [address] [place], [place] [address] [place] [address] [phone] (Wo rk) Social History Tobacco Use Types Packs/Day Years Used Date Smoking Tobacco: Never Assessed Sex Assigned at Date Recorded Not on file documented as of this encounter Progress Notes Madelin Becerril - 05/11/1998 12:00 AM CDTS: 27-year-old follow-up of neck problems and mole evaluation. Has continued to have neck problems, feeling more weak in the neck bilaterally especially when she hyperextends. It seems like it takes a lot of effort to george again. She denies any numbness or tingling down her arm. Has been doing some exercising as instructed by Dr. Hutchison. Massage, heat, no ice, Ibuprofen didn't seem to make much difference. Saw a chiropractor, did not seem to help. Is willing to go to physical therapy. In addition was concerned about a mole she noted on the inner aspect of the right upper thigh. Is not sure how long she has had. This is dark in color, may have a little irregular border. Does admit to having high sun exposure while she was younger. O: Alert and cooperative. Blood pressure 102/62. Skin: About a 2 millimeter dark brown flat nevus noted on the inner right leg. It was mostly well circumscribed. She had a similar lesion noted on the left upper thigh. As for the neck she had no tenderness of palpation of the bony processes but did complain of tenderness over the upper trapezius muscles and into the lower aspect. Full range of motion. A: 1. Normal appearing mole. 2. Chronic neck pain. P: Reassurance given that I didn't feel that this mole was suspicious nor that it need removal but did give her a handout on melanoma. Asked her to continue to have close observations of skin lesions. As for her neck, we'll send to physical therapy. No x-ray was done at this time. Patient will follow-up with me as needed for that. Continue on Ibuprofen, exercising as instructed earlier. IN SUMMARY: CHRONIC NECK PAIN; MOLE EVAL cc: documented in this encounter Plan of Treatment Not on filedocumented as of this encounter Visit Diagnoses Diagnosis Cervicalgia Benign neoplasm of skin of lower limb, i ncluding hip documented in this encounter Care Teams Record Changer Tester Relationship Specialty Start Date End Date Madelin Becerril MD PCP - General 07/17/1996 07/20/00 [address] [place] [address] documented as of this encounter
--- OUTSIDE RECORDS SUMMARY | 2022-04-23 15:40 | XMS_ITS | Encounter Summary ---
:1970 Author Organization [facility] Address [address] [place] [address] Care Team Providers Name Role Phone Madelin Becerril MD Primary Care Provider Encounter Details Date Type Department Care Team Description 12/13/1997 Notes/Orders Madelin Becerril MD [address] [place], [place] [address] (Wo rk) Social History Tobacco Use Types Packs/Day Years Used Date Smoking Tobacco: Never Assessed Sex Assigned at Date Recorded Not on file documented as of this encounter Plan of Treatment Not on filedocumented as of this encounter Procedures Procedure Name Priority Date/Time Associated Diagnosis Comme nts CBC HEME PANEL Waiting 12/13/1997 10:26 AM Result s for this CDT procedure are i n the results section . documented in this encounter Results CBC HEME PANEL (12/13/1997 10:26 AM CDT) P athologist Signature WBC 6.5 4.2 - 10.0 [facility] k/ul RBC 4.92 3.8 - 5.4 [facility] M/ul Hemoglobin 14.1 12 - 16 [facility] g/dl HCT 42.1 35 - 46 % [facility] MCV 86 80 - 98 fl [facility] MCH 28.7 27 - 34 pg [facility] MCHC 33.5 32 - 36 % [facility] Platelets 274 150 - 450 [facility] k/ul Specimen Anatomical Collection Method Collection Time Receive d Time (Source) Location / / Volume Laterality 12/13/1997 10:26 12/13/1997 AM CDT 10:27 AM CDT Madelin Becerril MD LAB_1 Performing Organization Address City/State/ZIP Code Phon e Number [facility] [phone] [phone] documented in this encounter Visit Diagnoses Not on filedocumented in this encounter Care Teams Matrix Repairer Relationship Specialty Start Date End Date Madelin Becerril MD PCP - General 07/17/1996 07/20/[address] [place] [address] documented as of this encounter
--- OUTSIDE RECORDS SUMMARY | 2022-04-23 15:41 | XMS_ITS | Encounter Summary ---
:1970 Author Organization [facility] Address [address] [place] [address] Care Team Providers Name Role Phone Madelin Becerril MD Primary Care Provider Encounter Details Date Type Department Care Team Description 05/01/1996 Office Visit [facility] Jose E Domingo, ACUTE URI [facility] [address] [facility] [place], [place] [address] [facility] [phone] [place] [address] (Wo rk) Social History Tobacco Use Types Packs/Day Years Used Date Smoking Tobacco: Never Assessed Sex Assigned at Date Recorded Not on file documented as of this encounter Plan of Treatment Not on filedocumented as of this encounter Visit Diagnoses Diagnosis Acute upper respiratory infections of un specified site documented in this encounter Care Teams Pattern Stamper Relationship Specialty Start Date End Date Madelin Becerril MD PCP - General 07/17/1996 07/20/[address] [place] [address] documented as of this encounter
--- OUTSIDE RECORDS SUMMARY | 2022-04-23 15:41 | XMS_ITS | Encounter Summary ---
:1970 Author Organization [facility] Address [address] [place] [address] Care Team Providers Name Role Phone Madelin Becerril MD Primary Care Provider Encounter Details Date Type Department Care Team Description 09/06/1997 Office Visit Ruddy Kelly MD UNSPECIFIED VIRAL INFECTION [address] [place] [address] (Wo rk) Social History Tobacco Use Types Packs/Day Years Used Date Smoking Tobacco: Never Assessed Sex Assigned at Date Recorded Not on file documented as of this encounter Progress Notes Ruddy Kelly - 09/06/1997 12:00 AM CSTS: Patient with onset on 09/04/97 of frontal headache, watery eyes, sore throat, chest heaviness, loose non-productive cough. Developed a low grade temp, 99 last night, 101 this morning. Has also developed myalgias, feeling warm and cold at various times. Has had a history of frequent ear infections and her right ear feels a little pressure, but not like a typical ear infection. O: Temp is 99.9. She has very minimal conjunctival injection, no mattering or significant tearing. Ear canals are clear. Left TM appears normal with no erythema or dullness. Right TM has very minimal injection over the malleus, but otherwise the TM appears benign. Throat is minimally erythematous. Neck with no significant adenopathy. Chest is clear to auscultation. There is no sinus tenderness with palpation. Nasal mucosa is edematous. A: Probable viral syndrome, possibly influenza. No evidence of otitis media or sinusitis at this time. P: We discussed symptomatic care. Certainly, if she develops increased focal symptoms or increased ear pain, to return for re-assessment. If her ear pain gets dramatically worse, I may just treat her with antibiotics because of her frequent history of OM. cc: SITION ADVISOR documented in this encounter Plan of Treatment Not on filedocumented as of this encounter Visit Diagnoses Diagnosis Unspecified viral infection, in conditio ns classified elsewhere and of unspecified site documented in this encounter Care Teams Ski Patroller Relationship Specialty Start Date End Date Madelin Becerril MD PCP - General 07/17/1996 07/20/00 [address] [place] [address] documented as of this encounter
--- OUTSIDE RECORDS SUMMARY | 2022-04-23 15:41 | XMS_ITS | Encounter Summary ---
:1970 Author Organization [facility] Address [address] [address] Care Team Providers Name Role Phone Britney Jarrett MD Primary Care Provider Encounter Details Date Type Department Care Team Description 06/10/1995 Orders Only Madelin Huber Social History Tobacco Use Types Packs/Day Years [...] documented as of this encounter Care Teams Mobile Web Application Developer Relationship Specialty Start Date End Date Britney Jarrett MD PCP - General 04/04/[address] [place] [address] documented as of this encounter
--- OUTSIDE RECORDS SUMMARY | 2022-04-23 15:41 | XMS_ITS | Encounter Summary ---
:1970 Author Organization [facility] Address [address] [place] [address] Care Team Providers Name Role Phone Madelin Becerril MD Primary Care Provider Encounter Details Date Type Department Care Team Description 03/27/1995 Office Visit Madelin Becerril MD Supervision of other [address] [place] [address] (Wo rk) Social History Tobacco Use Types Packs/Day Years Used Date Smoking Tobacco: Never Assessed Sex Assigned at Date Recorded Not on file documented as of this encounter Plan of Treatment Not on filedocumented as of this encounter Visit Diagnoses Diagnosis Supervision of other normal documented in this encounter Care Teams Used Car Make Ready Mechanic Relationship Specialty Start Date End Date Madelin Becerril MD PCP - General 07/17/1996 07/20/00 [address] [address] documented as of this encounter
--- OUTSIDE RECORDS SUMMARY | 2022-04-23 15:41 | XMS_ITS | Encounter Summary ---
:1970 Author Organization [facility] Address [address] [place] [address] Care Team Providers Name Role Phone Madelin Becerril MD Primary Care Provider Encounter Details Date Type Department Care Team Description 06/10/1995 Office Visit Madelin Becerril MD Carpal tunnel syndrome [address] [place], [place] [address] (Wo rk) Social History Tobacco Use Types Packs/Day Years Used Date Smoking Tobacco: Never Assessed Sex Assigned at Date Recorded Not on file documented as of this encounter Progress Notes Madelin Becerril MD - 06/10/1995 12:00 AM CSTS: 25 y/o who complains of bilateral wrist pain. She admits that she thinks she has carpal tunnel, has all the symptoms that she has read about. Is wondering if there is anything else that can be done. She did c/o this prior to her and was given wrist splints, as well as Ibuprofen. During her the symptoms seemed to have subsided, did have occasional pain, but now she continues to have worsening pain especially the left greater than right. Having difficulty sleeping at night. She is presently post , approximately 3 mo., is doing all cares for her child, as well as noticed some pain in her upper neck. She denies any numbness or tingling down her arms but most of the pain extends from the wrist into the fingers affecting the thumb as well as the first three digits. She sometimes has weakness when she first awakens. O: Pleasant 25 y/o, alert and cooperative. Wrists showed no obvious areas of swelling, erythema or ecchymosis. She had no obvious tenderness to palpation over the wrist itself or bony processes. She had FROM at her wrists. Web Weaver strength was 5/5 with thumb adduction 5/5. Phalen test was positive with positive Tinel left greater than right. DTR's 2+/4 throughout and pulses were intact. As for her neck, she had FROM though she did c/o pain at the full movements over the upper trapezius muscles. A: Neck pain probably due to muscular strain and tension with carpal tunnel. P: Told her that carpal tunnel could be related to the and would probably resolve within the year. However, since she is already on the wrist splints and the Naprosyn and it isn't helping, we could switch her to Ibuprofen t.i.d. In addition, I discussed the use of cortisone injection and this could help with her dx. as well as give her some symptomatic relief if she is interested in doing so. We briefly discussed surgery and what that entails, but Josie is definitely not interested in doing that at this time. I concurred that we should probably wait until she is one year out of her to see if her symptoms do subside. As for her neck, she should continue with her ROM and watching her neck movements. 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 Ibuprofen 800 mg. one p.o. t.i.d. p.r.n. pain was given to the patient. Continue with wrist splints. F/u with Dr. Myeer or for injection if desired. cc: documented in this encounter Plan of Treatment Not on filedocumented as of this encounter Visit Diagnoses Diagnosis Carpal tunnel syndrome documented in this encounter Care Teams Environmental Health And Safety Leader Relationship Specialty Start Date End Date Madelin Becerril MD PCP - General 07/17/1996 07/20/[address] [place] [address] documented as of this encounter
--- OUTSIDE RECORDS SUMMARY | 2022-04-23 15:41 | XMS_ITS | Encounter Summary ---
:1970 Author Organization [facility] Address [address] [place] [address] Care Team Providers Name Role Phone Madelin Becerril MD Primary Care Provider Encounter Details Date Type Department Care Team Description 12/30/1996 Office Visit [facility], Jignesh Haskins, MYOPIA; [address] [facility] [place], [place] [address] Social History Tobacco Use Types Packs/Day Years Used Date Smoking Tobacco: Never Assessed Sex Assigned at Date Recorded Not on file documented as of this encounter Plan of Treatment Not on filedocumented as of this encounter Visit Diagnoses Diagnosis Myopia Examination of eyes and vision documented in this encounter Care Teams Clinical Nurse Reviewer Relationship Specialty Start Date End Date Madelin Becerril MD PCP - General 07/17/1996 07/20/00 [address] [address] documented as of this encounter
--- OUTSIDE RECORDS SUMMARY | 2022-04-23 15:41 | XMS_ITS | Encounter Summary ---
:1970 Author Organization [facility] Address [address], [place] [address] Care Team Providers Name Role Phone Madelin Becerril MD Primary Care Provider Encounter Details Date Type Department Care Team Description 06/12/1995 Office Visit Oni Meyer MD Carpal tunnel syndrome [address] [place], [place] [address] (Wo rk) Social History Tobacco Use Types Packs/Day Years Used Date Smoking Tobacco: Never Assessed Sex Assigned at Date Recorded Not on file documented as of this encounter Progress Notes Oni Meyer MD - 06/12/1995 12:00 AM CSTS: 25 YO woman here with persistent symptoms of carpal tunnel syndrome since her . She has been wearing wrist splints at nighttime but still has considerable discomfort. She would like to give a trial of a cortisone injection of the wrist. Her left wrist symptoms seem to be worse. O: Positive Tinel's sign bilat. especially on the left. No evidence of hand muscle wasting. Some subjective weakness of the hand muscles according to the patient. A: CTS since . P: After discussion with the patient the skin was cleaned with betadine solution and a small skin wheal of 1% Lidocaine was used to numb the skin surface. Next a 25 gauge 1 in. needle was used and directed just ulnar to the palmaris longus tendon at the proximal crease of the wrist and directed down approx. 30 and directed slightly radially into the carpal tunnel. 1 cc of Celestone mixed with 1cc of Marcaine was injected into the carpal tunnel. The patient experienced no paresthesias or dysesthesias during the injection. She did experience a slight increase in her baseline tingling in the distribution of the median nerve as the pressure of the fluid injecting into the canal increased. Patient tolerated procedure well. Allow 1-6 wks. for cortisone to begin to take effect. Patient was informed that for a day or two her sx. may actually be worse. F/u at any time if injection of the other wrist is desired. cc: documented in this encounter Plan of Treatment Not on filedocumented as of this encounter Visit Diagnoses Diagnosis Carpal tunnel syndrome documented in this encounter Care Teams Steel Shot Header Operator Relationship Specialty Start Date End Date Madelin Becerril MD PCP - General 07/17/1996 07/20/[address] [place] [address] documented as of this encounter
--- OUTSIDE RECORDS SUMMARY | 2022-04-23 15:41 | XMS_ITS | Encounter Summary ---
:1970 Author Organization [facility] Address [address] [address] Care Team Providers Name Role Phone Madelin Becerril MD Primary Care Provider Encounter Details Date Type Department Care Team Description 11/28/1995 Office Visit [facility] Ann Marie Rincon, Carpal tunnel syndrome [address] [place], [place] [address] Social History Tobacco Use Types Packs/Day Years Used Date Smoking Tobacco: Never Assessed Sex Assigned at Date Recorded Not on file documented as of this encounter Plan of Treatment Not on filedocumented as of this encounter Visit Diagnoses Diagnosis Carpal tunnel syndrome documented in this encounter Care Teams Event Mgr Relationship Specialty Start Date End Date Madelin Becerril MD PCP - General 07/17/1996 07/20/00 [address] [place] [address] documented as of this encounter
--- OUTSIDE RECORDS SUMMARY | 2022-04-23 15:41 | XMS_ITS | Encounter Summary ---
:1970 Author Organization [facility] Address [address] [place] [address] Care Team Providers Name Role Phone Madelin Becerril MD Primary Care Provider Encounter Details Date Type Department Care Team Description 05/21/1995 Office Visit Enmanuel Hutchison M D Other general counseling and [address] [place] [address] management [phone] (Wo rk) Social History Tobacco Use Types Packs/Day Years Used Date Smoking Tobacco: Never Assessed Sex Assigned at Date Recorded Not on file documented as of this encounter Progress Notes Enmanuel Hutchison MD - 05/21/1995 12:00 AM CDTSEarl Blackman are here for a vasectomy consult. They are 26 and 24. They have a 3 yr. old male child and a 6 wk. old female child. They had been planning on having only 2 children. They have talked about it for some time. They are not interested in having any other further children. I informed them of their young age, and how this is a permanent procedure and how they could prevent effectively for the next several years and then to do a more permanent procedure at that time. They, however, are focused on getting a vasectomy. They understand that it is permanent and they understand it is irreversible. They also understand that there is a failure rate and we talked about the semen samples before using giving up on contraception. We talked about vasectomy vs tubal ligations and in the end they both came out and acknowledged the fact that I was giving them negative information about the permanence of the vasectomy, but that they are very comfortable and very clear in their understanding that this is a procedure which will not allow them to have further children in the future and that they are prepared for that and they are comfortable with that. They were given information on other complications, instructions on pre and post vasectomy and the consent sheet and they viewed the video tape. O. Exam revealed that Juan has a Nl. external genitalia, inguinal canals. A. O.K. For Vasectomy. P. Per/Scheduling. cc: documented in this encounter Plan of Treatment Not on filedocumented as of this encounter Visit Diagnoses Diagnosis Other general counseling and advice for contraceptive management documented in this encounter Care Teams Datastage Architect Relationship Specialty Start Date End Date Madelin Becerril MD PCP - General 07/17/1996 07/20/[address] [place] [address] documented as of this encounter
--- OUTSIDE RECORDS SUMMARY | 2022-04-23 15:41 | XMS_ITS | Encounter Summary ---
:1970 Author Organization [facility] Address [address], [place] [address] Care Team Providers Name Role Phone Britney Jarrett MD Primary Care Provider Encounter Details Date Type Department Care Team Description 08/10/1996 Orders Only Madelin Huber Social History Tobacco [...] documented as of this encounter Care Teams Government Employee Relationship Specialty Start Date End Date Britney Jarrett MD PCP - General 04/04/16[address] [place] [address] documented as of this encounter
--- OUTSIDE RECORDS SUMMARY | 2022-04-23 15:41 | XMS_ITS | Encounter Summary ---
:1970 Author Organization [facility] Address [address] [place] [address] Care Team Providers Name Role Phone Madelin Becerril MD Primary Care Provider Encounter Details Date Type Department Care Team Description 05/20/1995 Office Visit Madelin Becerril MD Routine [address] follow-up [place], [place] [address] (Wo rk) Social History Tobacco Use Types Packs/Day Years Used Date Smoking Tobacco: Never Assessed Sex Assigned at Date Recorded Not on file documented as of this encounter Progress Notes Madelin Becerril MD - 05/20/1995 12:00 AM CDTS. 24 yr. old here for her 6 wk post check. She delivered an 8 oz. 14 oz. female by vaginal delivery on 04-04-95, had a 4th degree tear and was sewn up by Ob-Cigar Packer And Picker. She denies any problems at this time. She is ambulating without any difficulties. Not breast feeding and felt some breast engorgement about 4-5 days, but thereafter has been feeling o.k. She denies any abnormal discharge. Abodmen is soft without any tenderness and her lochia stopped about 2 1/2 wks. ago after delivery. She is awaiting her next period. She is sexually active with her using condoms at this time. Will be having a discussion with Dr. Sreekanth Hutchison about vasectomy tomorrow. O. 24 yr. old who is alert and cooperative, in NAD. Wt. 134 lbs. Prepregnancy Wt. was about 129 lbs. B.P. 92/62. Breast Exam showed no tenderness. No redness. No palpable masses. No discharge. Abdomen is soft & nontender. - External Genitalia, Cervix appear WNL. Pap Smear was taken using a wooden spatula and cytobrush. Pelvic Exam revealed a slightly retoflexed uterus, nonpalpable adnexae and rectal exam confirms. Perineum was intact. No Hgb. was drawn so she was having no complaints. A. 6 Wk. Post . P. Advised to continue with her appt. to see Dr. Sreekanth Hutchison to discuss permanent sterilization, however, I offer that they should add a spermicide on top of condoms to help reduce the chance of . She will f/u for yearly PE's, earlier if any other problems do arise. cc: documented in this encounter Plan of Treatment Not on filedocumented as of this encounter Visit Diagnoses Diagnosis Routine follow-up documented in this encounter Care Teams Muleser Relationship Specialty Start Date End Date Madelin Becerril MD PCP - General 07/17/1996 07/20/[address] [place] [address] documented as of this encounter
--- OUTSIDE RECORDS SUMMARY | 2022-04-23 15:41 | XMS_ITS | Encounter Summary ---
:1970 Author Organization [facility] Address [address] [address] Care Team Providers Name Role Phone Madelin Becerril MD Primary Care Provider Encounter Details Date Type Department Care Team Description 05/12/1996 Office Visit Carolina MD VACCINE FOR INFLUENZA [facility] [address] [place], [place] [address] Social History Tobacco Use Types Packs/Day Years Used Date Smoking Tobacco: Never Assessed Sex Assigned at Date Recorded Not on file documented as of this encounter Plan of Treatment Not on filedocumented as of this encounter Visit Diagnoses Diagnosis VACCINE FOR INFLUENZA documented in this encounter Care Teams Projector Booth Operator Relationship Specialty Start Date End Date Madelin Becerril MD PCP - General 07/17/1996 07/20/00 [address] [place] [address] documented as of this encounter
--- OUTSIDE RECORDS SUMMARY | 2022-04-23 15:41 | XMS_ITS | Encounter Summary ---
:1970 Author Organization [facility] Address [address] [place] [address] Care Team Providers Name Role Phone Madelin Becerril MD Primary Care Provider Encounter Details Date Type Department Care Team Description 11/25/1995 Office Visit Oni Meyer MD Carpal tunnel syndrome [address] [address] [place], [place] [address] (Wo rk) Social History Tobacco Use Types Packs/Day Years Used Date Smoking Tobacco: Never Assessed Sex Assigned at Date Recorded Not on file documented as of this encounter Progress Notes Oni Meyer MD - 11/25/1995 12:00 AM CDTS: 25-year-old woman here with right wrist pain numbness, essentially symptoms of carpal tunnel syndrome. The patient had a cortisone injection of her left wrist in and has been doing well without recurrence of symptoms in that wrist. She had a similar injection in the right wrist in and now has had recurrence with persistent numbness throughout the day, no relief with splinting or anti-inflammatories and feeling of weakness in the hand and fingers. O: Positive Tinel's sign on the right. No actual muscle wasting but some objective weakness. A: carpal tunnel syndrome right hand. P: Would recommend EMG nerve conduction studies to assess level of nerve damage and then refer the patient to ortho for their evaluation and probable carpal tunnel release procedure on the right side. I will take care of the paperwork for that referral. cc: documented in this encounter Plan of Treatment Not on filedocumented as of this encounter Visit Diagnoses Diagnosis Carpal tunnel syndrome documented in this encounter Care Teams Agriculture Inspector Relationship Specialty Start Date End Date Madelin Becerril MD PCP - General 07/17/1996 07/20/[address] [place] [address] documented as of this encounter
--- OUTSIDE RECORDS SUMMARY | 2022-04-23 15:41 | XMS_ITS | Encounter Summary ---
:1970 Author Organization [facility] Address [address] [place] [address] Care Team Providers Name Role Phone Madelin Becerril MD Primary Care Provider Encounter Details Date Type Department Care Team Description 08/10/1996 Office Visit Madelin Becerril MD OTITIS MEDIA NOS; [address] ACUTE PHARYNGITIS(SORE THROAT) [place], [place] [address] (Wo rk) Social History Tobacco Use Types Packs/Day Years Used Date Smoking Tobacco: Never Assessed Sex Assigned at Date Recorded Not on file documented as of this encounter Progress Notes Madelin Becerril - 08/10/1996 12:00 AM CSTS. 26 yr. old who complains of a S/T which started 2-3 days ago with Rt. ear pain, started last night, fever is about 99. Daughter at home with Rt. ear infection and conjunctivitis. No known strep exposure. Has noticed a change in voice with nasal congestion, PND. No hx of strep in the past. O. 26 yr. old who is alert and cooperative. B.P. 120/80, Temp. 98.4. Rt. TM is erythematous, retracted and dull. Lt. TM was pearly gallegos in color. Nose- Mild swelling, Posterior Pharynx is slightly red and neck is supple with tender submandibular lymphadenopathy. RSS was Neg. A. ROM With Pharyngitis. P. Plenty of fluids and warm salt water gargles, Tylenol or Advil for pain. Warm wash cloth to the ear, Bactrim DS l po b.i.d. x 10 days. F/U if ear pain persists after treatment. Will be contacted if screen becomes positive. cc: documented in this encounter Plan of Treatment Not on filedocumented as of this encounter Visit Diagnoses Diagnosis Unspecified otitis media Acute pharyngitis documented in this encounter Care Teams Structural Steel Fitter Relationship Specialty Start Date End Date Madelin Becerril MD PCP - General 07/17/1996 07/20/[address] [place] [address] documented as of this encounter
--- OUTSIDE RECORDS SUMMARY | 2022-04-23 15:41 | XMS_ITS | Encounter Summary ---
:1970 Author Organization [facility] Address [address] [place] [address] Care Team Providers Name Role Phone Madelin Becerril MD Primary Care Provider Encounter Details Date Type Department Care Team Description 03/07/1997 Office Visit Madelin Becerril MD PREVENTIVE CARE EXAM [address] [place], [place] [address] (Wo rk) Social History Tobacco Use Types Packs/Day Years Used Date Smoking Tobacco: Never Assessed Sex Assigned at Date Recorded Not on file documented as of this encounter Progress Notes Madelin Becerril - 03/07/1997 12:00 AM CDTS. 26 yr. old here for PE and pap. Last pap 1994, was post was Nl. She had Nl. ones in 1993 and 1994. She has never had any abnormal ones. LMP 7-21-97. 27 days between periods, 4-5 days of flow. had a vasectomy. She is a 2, Para 2001. Last tetanus in 1993, last Cholesterol drawn in 1993, was Nl. at 159. Medical problems include bilateral carpal tunnel, both had surgical repair and with good results. She has had a tonsillectomy, PE tubes, placed back surgery in 1985. Habits include no alcohol, tobacco, no significant caffeine. She does do monthly breast exams and denies any changes. Calcium is about l serving per/day. She does take a multi-vitamin and has regular exercise 2-3 x per/week. Family Hx is unremarkable. 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 O. Pleasant female alert and cooperative. Wt. 135 lbs. B.P. 120/74. EOM's are intact. PERRLA. TM's are pearly gallegos in color, Nose,Mouth, Clear. Neck - No thyromegaly. Lungs are clear. Heart - Regular rate and rhythm. Breast Exam - Bilateral fibrous tissue. No abnormal masses. Abdomen is flat and nontender. External Genitalia, Vagina, Cervix appear WNL. Pap Smear is taken. Pelvic Exam small anteflexed uterus. Nonpalpable adnexa. A. RHM P. Pap available in l month. F/U for yearly exam. Advised reglar exercise, healthy eating habits, calcium supplement and f/u in l year. cc: documented in this encounter Plan of Treatment Not on filedocumented as of this encounter Visit Diagnoses Diagnosis Routine general medical examination at [facility] Routine general medical examination at [facility] facility documented in this encounter Care Teams Senior Scrum Master Relationship Specialty Start Date End Date Madelin Becerril MD PCP - General 07/17/1996 07/20/[address] [place] [address] documented as of this encounter
--- OUTSIDE RECORDS SUMMARY | 2022-04-23 15:41 | XMS_ITS | Encounter Summary ---
:1970 Author Organization [facility] Address [address] [place] [address] Care Team Providers Name Role Phone Madelin Becerril MD Primary Care Provider Encounter Details Date Type Department Care Team Description 04/04/1995 [place] [address] [place], [place] [id number] (Wo rk) Social History Tobacco Use Types Packs/Day Years Used Date Smoking Tobacco: Never Assessed Sex Assigned at Date Recorded Not on file documented as of this encounter Plan of Treatment Not on filedocumented as of this encounter Visit Diagnoses Diagnosis Normal delivery Other current maternal conditions classi fiable elsewhere, with delivery Fourth-degree perineal laceration, with delivery Outcome of delivery, single liveborn documented in this encounter Care Teams Associate Director Of Nursing Relationship Specialty Start Date End Date Madelin Becerril MD PCP - General 07/17/1996 07/20/[address] [place] [address] documented as of this encounter
--- OUTSIDE RECORDS SUMMARY | 2022-04-23 15:41 | XMS_ITS | Encounter Summary ---
:1970 Author Organization [facility] Address [address] [place] [address] Care Team Providers Name Role Phone Madelin Becerril MD Primary Care Provider Encounter Details Date Type Department Care Team Description 05/25/1996 Office Visit Madelin Becerril MD UNSPECIFIED PREOPERATIVE EXAM; [address] CARPAL TUNNEL SYNDROME [place] [address] (Wo rk) Social History Tobacco Use Types Packs/Day Years Used Date Smoking Tobacco: Never Assessed Sex Assigned at Date Recorded Not on file documented as of this encounter Plan of Treatment Not on filedocumented as of this encounter Visit Diagnoses Diagnosis Preoperative examination, unspecified Carpal tunnel syndrome documented in this encounter Care Teams Mannequin Decorator Relationship Specialty Start Date End Date Madelin Becerril MD PCP - General 07/17/1996 07/20/[address] [place] [address] documented as of this encounter
--- OUTSIDE RECORDS SUMMARY | 2022-04-23 15:41 | XMS_ITS | Encounter Summary ---
:1970 Author Organization [facility] Address [address] [place] [address] Care Team Providers Name Role Phone Madelin Becerril MD Primary Care Provider Encounter Details Date Type Department Care Team Description 12/16/1995 Office Visit Madelin Becerril MD UNSPECIFIED PREOPERATIVE EXAM; [address] CARPAL TUNNEL SYNDROME [place] [address] (Wo rk) Social History Tobacco Use Types Packs/Day Years Used Date Smoking Tobacco: Never Assessed Sex Assigned at Date Recorded Not on file documented as of this encounter Plan of Treatment Not on filedocumented as of this encounter Visit Diagnoses Diagnosis Preoperative examination, unspecified Carpal tunnel syndrome documented in this encounter Care Teams Fermentologist Relationship Specialty Start Date End Date Madelin Becerril MD PCP - General 07/17/1996 07/20/[address] [place] [address] documented as of this encounter
--- OUTSIDE RECORDS SUMMARY | 2022-04-23 15:41 | XMS_ITS | Encounter Summary ---
:1970 Author Organization [facility] Address [address], [place] [address] Care Team Providers Name Role Phone Britney Jarrett MD Primary Care Provider Encounter Details Date Type Department Care Team Description 12/18/1995 Orders Only Bandar Santamaria MD [address] [place], [place] [address] Social History Tobacco Use Types Packs/Day Years [...] documented as of this encounter Care Teams Repair Table Operator Relationship Specialty Start Date End Date Britney Jarrett MD PCP - General 04/04/[address] [place] [address] documented as of this encounter
--- OUTSIDE RECORDS SUMMARY | 2022-04-23 15:41 | XMS_ITS | Encounter Summary ---
:1970 Author Organization [facility] Address [address] [place] [address] Care Team Providers Name Role Phone Madelin Becerril MD Primary Care Provider Encounter Details Date Type Department Care Team Description 03/11/1996 Office Visit Jose E Baig CARPAL TUNNEL SYNDROME Practice MD [facility] [address] [place] [address] Social History Tobacco Use Types Packs/Day Years Used Date Smoking Tobacco: Never Assessed Sex Assigned at Date Recorded Not on file documented as of this encounter Progress Notes Vipul Angeles - 03/11/1996 12:00 AM CDTS. Here for recurrent wrist pain. She has documented carpal tunnel syndrome and has had fci relief of sx's from a steroid injection in the wrist. She is s/p Rt. carpal tunnel release and feels that the present time is inconvenient to undergo another release and would like to do that to Jun. or Jul. These options were discussed and was elected to proceed with her request, ie, AristoCort 25 mg. per/cc., 0.5 cc. injected into the carpal tunnel. cc: documented in this encounter Plan of Treatment Not on filedocumented as of this encounter Visit Diagnoses Diagnosis Carpal tunnel syndrome documented in this encounter Care Teams Grant Specialist Relationship Specialty Start Date End Date Madelin Becerril MD PCP - General 07/17/1996 07/20/[address] [place] [address] documented as of this encounter
--- OUTSIDE RECORDS SUMMARY | 2022-04-23 15:41 | XMS_ITS | Encounter Summary ---
:1970 Author Organization [facility] Address [address] [place] [address] Care Team Providers Name Role Phone Madelin Becerril MD Primary Care Provider Encounter Details Date Type Department Care Team Description 05/18/1997 Office Visit Bandar Haider MD VACCINE FOR INFLUENZA [address] [place], [place] [address] (Wo rk) Social History Tobacco Use Types Packs/Day Years Used Date Smoking Tobacco: Never Assessed Sex Assigned at Date Recorded Not on file documented as of this encounter Plan of Treatment Not on filedocumented as of this encounter Visit Diagnoses Diagnosis VACCINE FOR INFLUENZA documented in this encounter Care Teams Digital Forensic Analyst Relationship Specialty Start Date End Date Madelin Becerril MD PCP - General 07/17/1996 07/20/[address] [place] [address] documented as of this encounter
--- OUTSIDE RECORDS SUMMARY | 2022-04-23 15:41 | XMS_ITS | Encounter Summary ---
:1970 Author Organization [facility] Address [address] [place] [address] Care Team Providers Name Role Phone Madelin Becerril MD Primary Care Provider Encounter Details Date Type Department Care Team Description 04/02/1995 Office Visit Abby Quan MD Supervision of other normal [address] [address] (Wo rk) Social History Tobacco Use Types Packs/Day Years Used Date Smoking Tobacco: Never Assessed Sex Assigned at Date Recorded Not on file documented as of this encounter Plan of Treatment Not on filedocumented as of this encounter Visit Diagnoses Diagnosis Supervision of other normal documented in this encounter Care Teams Rail Crew Member Relationship Specialty Start Date End Date Madelin Becerril MD PCP - General 07/17/1996 07/20/[address] [place] [address] documented as of this encounter
--- OUTSIDE RECORDS SUMMARY | 2022-04-23 15:41 | XMS_ITS | Encounter Summary ---
:1970 Author Organization [facility] Address [address] [place] [address] Care Team Providers Name Role Phone Madelin Becerril MD Primary Care Provider Encounter Details Date Type Department Care Team Description 06/04/1995 Office Visit Magan Bell MD VACCINE FOR INFLUENZA [address] [place] [address] (Wo rk) Social History Tobacco Use Types Packs/Day Years Used Date Smoking Tobacco: Never Assessed Sex Assigned at Date Recorded Not on file documented as of this encounter Plan of Treatment Not on filedocumented as of this encounter Visit Diagnoses Diagnosis VACCINE FOR INFLUENZA documented in this encounter Care Teams Regional Guide Relationship Specialty Start Date End Date Madelin Becerril MD PCP - General 07/17/1996 07/20/[address] [place] [address] documented as of this encounter
--- OUTSIDE RECORDS SUMMARY | 2022-04-23 15:41 | XMS_ITS | Encounter Summary ---
:1970 Author Organization [facility] Address [address] [place] [address] Care Team Providers Name Role Phone Madelin Becerril MD Primary Care Provider Encounter Details Date Type Department Care Team Description 07/24/1995 Office Visit Oni Meyer MD Carpal tunnel syndrome [address] [facility] [address] [place], [place] [address] (Wo rk) Social History Tobacco Use Types Packs/Day Years Used Date Smoking Tobacco: Never Assessed Sex Assigned at Date Recorded Not on file documented as of this encounter Progress Notes Oni Meyer MD - 07/24/1995 12:00 AM CSTS. 25 yr. old woman who is here for f/u on recent carpal tunnel injection of the Lt. wrist. Pt. is quite pleased with the results there. States that her sx's began to resolve within 3 days and now are completely gone and that injection was about 5 wks. ago. She would like to have the other wrist injected as well, since the sx's are becoming more bothersome keeping her awake at night, etc. O. Positive Tinel's Sign on the Rt. Neg. on the Lt. No evidence of hand muscle wasting. A. Carpal Tunnel Syndrome, Rt. Side. P. As before the skin was cleaned with alcohol solution and a skin wheal of l% Lidocaine was used to numb the skin surface. Next a 25 gauge 1 1/2 needle was used and directed just ulnar to the palmaris longus tendon at the proximal crease of the wrist, and directed downward approx. 30 degrees and directed slightly radially into the carpal tunnel. l cc. of Celestone mixed with l cc. of Marcaine was injected into the carpal tunnel. Pt. experienced no paresthesia's or disasthesia's during the injection. She tolerated the procedure well. Allow l-6 weeks for Cortisone to take it's full effect. F/U if sx's recur. cc: documented in this encounter Plan of Treatment Not on filedocumented as of this encounter Visit Diagnoses Diagnosis Carpal tunnel syndrome documented in this encounter Care Teams Chairman And Chief Executive Officer Relationship Specialty Start Date End Date Madelin Becerril MD PCP - General 07/17/1996 07/20/00 [address] [place] [address] documented as of this encounter
--- OUTSIDE RECORDS SUMMARY | 2022-04-23 15:41 | XMS_ITS | Encounter Summary ---
:1970 Author Organization [facility] Address [address] [place] [address] Care Team Providers Name Role Phone Madelin Becerril MD Primary Care Provider Encounter Details Date Type Department Care Team Description 06/04/1995 Office Visit Harris Jarrett MD Carpal tunnel syndrome [address] [place], [place] [id number] (Wo rk) Social History Tobacco Use Types Packs/Day Years Used Date Smoking Tobacco: Never Assessed Sex Assigned at Date Recorded Not on file documented as of this encounter Progress Notes Harris Jarrett MD - 06/04/1995 12:00 AM LINE LEADER Josie's in with what I think is carpal tunnel syndrome. She had some complaint earlier on and her Mother has pretty significant carpal tunnel syndrome. So she's aware of the symptomatology. She's getting a lot more numbness and tingling in her hands with the least little flexion of her wrists now. She's recent delivery with a 3-mth.old daughter. She's also got some neck discomfort, but her symptoms that reproduced very quickly after wrist flexion which is not typical for any cervical impingement syndrome. They think it is carpal tunnel. She is not , but with the recent and the lifting and carrying of the infant that I think she has to do, I think this is pretty typical carpal tunnel related to and we would like to be very conservative out to a year post anyway. To think we can get her to volodymyr. On exam, she's got discomfort at extremes ROM of her neck, but neurologically strength is fully intact in the upper extremities. Reflexes are intact and to point discrimination in her hands is fully intact bilaterally. So there aren't deficits. I did give her a neck care book and emphasized the importance of proper posture of her neck and shoulders as well. But I think if she could wear the wrist splints even when she's up and about during the day and at night, if she can't wear both wrist splints during the day she could alternate and protect each wrist temporarily and than I gave her a prescription for Naprosyn 500mg p.o. b.i.d. as an anti-inflammatory agent and asked her to do some regular stretches. I suppose if her symptoms are just really debilitating and bothersome and keeping her from sleeping, she could consider a cortisone injection. Although, even that seems a bit invasive given our expectation that she'll resolve without intervention. But that would be a choice to make. I don't do those so she would have to see one of the providers who does. I think and do, I don't know who else. cc: LEADER documented in this encounter Plan of Treatment Not on filedocumented as of this encounter Visit Diagnoses Diagnosis Carpal tunnel syndrome documented in this encounter Care Teams Moshgiach Relationship Specialty Start Date End Date Madelin Becerril MD PCP - General 07/17/1996 07/20/00 [address] [place] [address] documented as of this encounter
--- OUTSIDE RECORDS SUMMARY | 2022-04-23 15:41 | XMS_ITS | Encounter Summary ---
:1970 Author Organization [facility] Address [address] [place] [address] Care Team Providers Name Role Phone Britney Jarrett MD Primary Care Provider Encounter Details Date Type Department Care Team Description 06/04/1995 Orders Only Harris Jarrett MD [address] [place], [place] [id number] (Wo rk) Social History Tobacco Use Types [...] documented as of this encounter Care Teams Telephone Information Clerk Relationship Specialty Start Date End Date Britney Jarrett MD PCP - General 04/04/16[address] [place] [address] documented as of this encounter
--- OUTSIDE RECORDS SUMMARY | 2022-04-23 15:42 | XMS_ITS | Encounter Summary ---
:1970 Author Organization [facility] Address [address] [place] [address] Care Team Providers Name Role Phone Madelin Becerril MD Primary Care Provider Encounter Details Date Type Department Care Team Description 03/20/1995 Office Visit Madelin Becerril MD Supervision of other [address] normal [place] [address] (Wo rk) Social History Tobacco Use Types Packs/Day Years Used Date Smoking Tobacco: Never Assessed Sex Assigned at Date Recorded Not on file documented as of this encounter Plan of Treatment Not on filedocumented as of this encounter Visit Diagnoses Diagnosis Supervision of other normal documented in this encounter Care Teams Patient Svcs Mgr Relationship Specialty Start Date End Date Madelin Becerril MD PCP - General 07/17/1996 07/20/00 [address] [address] documented as of this encounter
--- OUTSIDE RECORDS SUMMARY | 2022-04-23 15:42 | XMS_ITS | Encounter Summary ---
:1970 Author Organization [facility] Address [address] [place] [address] Care Team Providers Name Role Phone Madelin Becerril MD Primary Care Provider Encounter Details Date Type Department Care Team Description 09/13/1994 [address] [facility] [facility] [address], Miko or excessive Practice MARIFER Storey weight gain in [address] , unspecified [place] [phone] as to episode of care [phone] Social History Tobacco Use Types Packs/Day Years Used Date Smoking Tobacco: Never Assessed Sex Assigned at Date Recorded Not on file documented as of this encounter Consult Notes Cordelia Dorado RD - 09/13/1994 12:00 AM CSTShe was referred by Dr. Thien Covington for Nutritional counseling for weight gain for . S: Ms. Booker reports that she is here because was concerned about how much weight she gained with her last . She reports having lost 9 lbs in the 1st 3 months of her and then gaining a total of 43 lbs. She was not exercising during that but feels that she was eating well and not overeating. She reports a typical day that she is up at 7:30 with her 2-year-old, has 2 cups of cereal, milk approximately 1 cup of skim and 2 pieces of toast with margarine and jam. At 10 am if she is feeling sick she will 2 more pieces of toast with margarine and jam. At noon she will have a sandwich either ham or go to [employer] with a few chips and water. At 2 or 3 in the afternoon she will have cheese and crackers an apple or carrot sticks. At 6 pm what she considers a large portion 2 or 3 cups or more of spaghetti or lasagna or hot dish. She normally does not eat in the evening unless she is feeling sick which may be a couple of times a week. She is currently starting an aerobics class for . After her last she was on weight watchers and lost all of her weight down to a 119 lbs which was 3 lbs less than her pre- weight. O: 23-year-old female. Height 5'0. Pre- weight 129 lbs. On 09-09-94 she had an increased 2 lbs to 131 lbs at 12 weeks. Her expected date of confinement is 04-01-95. A: I instructed the patient on normal weight gain for using a weight gain guide and nutrition for handouts which I gave her. I also instructed her on a good eating guide which she received. She seems to understand food portions because of her history with weight watchers. It appears that what she overeats is usually meat portions and starch portions and added fat. P: 1. To continue the aerobics for class 3 times a week. 2. To follow the nutrition guide for not going below the minimum servings but not exceeding 6 oz of meat per day. 3. If excess weight gain occurs to 1st limit all added fats, fatty foods and excess sugar and then to reduce starches to the minimal amount which is 6 servings per day. 4. If weight gain and is excessive then to record her intake daily comparing her to her guideline. If she is following all of the recommendation she will need to except the weight gain that results. cc: Cordelia Dorado R.D. URE MANAGER documented in this encounter Plan of Treatment Not on filedocumented as of this encounter Visit Diagnoses Diagnosis Edema or excessive weight gain in pregna ncy, unspecified as to episode of care documented in this encounter Care Teams Pecan Gatherer Relationship Specialty Start Date End Date Madelin Becerril MD PCP - General 07/17/1996 07/20/[address] [place] [id number] documented as of this encounter
--- OUTSIDE RECORDS SUMMARY | 2022-04-23 15:42 | XMS_ITS | Encounter Summary ---
:1970 Author Organization [facility] Address [address] [place] [address] Care Team Providers Name Role Phone Madelin Becerril MD Primary Care Provider Encounter Details Date Type Department Care Team Description 12/10/1993 Office Visit Bandar Haider Locali zed superficial swelling, mass, or lump; General symptoms [place] [address] [place], [place] [address] (Wo rk) Social History Tobacco Use Types Packs/Day Years Used Date Smoking Tobacco: Never Assessed Sex Assigned at Date Recorded Not on file documented as of this encounter Progress Notes Bandar Haider MD - 12/10/1993 12:00 AM CDTS: Pt. has a mole on her leg which she wishes to have checked. Also has been feeling ill over the past 2 months. Complains of fatigue, morning nausea and dizziness. Has been retaining fluids, has morning body aches, hot flashes and some breast tenderness. Has had regular periods on her Brevicon. Home tests have been neg. Symptoms began 2 months after she had started on her Brevicon. Previously had been on Modicon. O: Alert and INAD. HEENT exam is benign. Neck is supple w/out adenopathy or thyromegaly. Lungs are clear. Heart regular rate and rhythm w/out murmur. Abdomen is soft and nontender. Exam of the left leg reveals a 1 cm diameter circular, lightly isu pigmented lesion w/out exudates. Urine test today is neg. UA is unremarkable. A: 1. Benign mole. 2. Symptoms which appear consistent w/ BCP side affects. P: At this point will switch to Desogen 28 day BCP's. She is encouraged to follow up in the next 1-2 months for recheck. cc: documented in this encounter Plan of Treatment Not on filedocumented as of this encounter Visit Diagnoses Diagnosis Localized superficial swelling, mass, or lump General symptoms NEC Other general symptoms documented in this encounter Care Teams Upkeep Worker Relationship Specialty Start Date End Date Madelin Becerril MD PCP - General 07/17/1996 07/20/00 [address] [place] [id number] documented as of this encounter
--- OUTSIDE RECORDS SUMMARY | 2022-04-23 15:42 | XMS_ITS | Encounter Summary ---
:1970 Author Organization [facility] Address [address] [place] [address] Care Team Providers Name Role Phone Madelin Becerril MD Primary Care Provider Encounter Details Date Type Department Care Team Description 11/11/1994 Office Visit Madelin Becerril MD Supervision of [...] normal documented in this encounter Care Teams Egg Grader Relationship Specialty Start Date End Date Madelin Becerril MD PCP - General 07/17/1996 07/20/00 [address] [id number] documented as of this encounter
--- OUTSIDE RECORDS SUMMARY | 2022-04-23 15:42 | XMS_ITS | Encounter Summary ---
:1970 Author Organization [facility] Address [address] [place] [address] Care Team Providers Name Role Phone Madelin Becerril MD Primary Care Provider Encounter Details Date Type Department Care Team Description 01/06/1995 Office Visit Madelin Becerril MD Supervision of [...] normal documented in this encounter Care Teams Compliance Counsel Relationship Specialty Start Date End Date Madelin Becerril MD PCP - General 07/17/1996 07/20/00 [address] [address] documented as of this encounter
--- OUTSIDE RECORDS SUMMARY | 2022-04-23 15:42 | XMS_ITS | Encounter Summary ---
:1970 Author [facility] Address [address] [place] [address] Care Team Providers Name Role Phone Madelin Becerril MD Primary Care Provider Encounter Details Date Type Department Care Team Description 12/09/1994 Office Visit Madelin Becerril MD Supervision of [...] normal documented in this encounter Care Teams Senior Occupational Therapist Relationship Specialty Start Date End Date Madelin Becerril MD PCP - General 07/17/1996 07/20/00 [address] [address] documented as of this encounter
--- OUTSIDE RECORDS SUMMARY | 2022-04-23 15:42 | XMS_ITS | Encounter Summary ---
:1970 Author Organization [facility] Address [address] [place] [address] Care Team Providers Name Role Phone Madelin Becerril MD Primary Care Provider Encounter Details Date Type Department Care Team Description 08/07/1993 Office Visit Radha Degroot AP RN, DROP PIT WORKER Gynecological examination [address] [place], [place] [address] (Wo rk) Social History Tobacco Use Types Packs/Day Years Used Date Smoking Tobacco: Never Assessed Sex Assigned at Date Recorded Not on file documented as of this encounter Plan of Treatment Not on filedocumented as of this encounter Visit Diagnoses Diagnosis Gynecological examination documented in this encounter Care Teams Grinding Wheel Facer Relationship Specialty Start Date End Date Madelin Becerril MD PCP - General 07/17/1996 07/20/[address] [place] [address] documented as of this encounter
--- OUTSIDE RECORDS SUMMARY | 2022-04-23 15:42 | XMS_ITS | Encounter Summary ---
:1970 Author [facility] Address [address] [place] [address] Care Team Providers Name Role Phone Madelin Becerril MD Primary Care Provider Encounter Details Date Type Department Care Team Description 09/17/1994 Office Visit Madelin Becerril MD Counseling; [address] Supervision of other normal [address] [place] [phone] (Wo rk) Social History Tobacco Use Types Packs/Day Years Used Date Smoking Tobacco: Never Assessed Sex Assigned at Date Recorded Not on file documented as of this encounter Plan of Treatment Not on filedocumented as of this encounter Visit Diagnoses Diagnosis Counseling Counseling NOS Supervision of other normal documented in this encounter Care Teams Ground Systems Engineer Relationship Specialty Start Date End Date Madelin Becerril MD PCP - General 07/17/1996 07/20/[address] [place] [address] documented as of this encounter
--- OUTSIDE RECORDS SUMMARY | 2022-04-23 15:42 | XMS_ITS | Encounter Summary ---
:1970 Author Organization [facility] Address [address] [place] [address] Care Team Providers Name Role Phone Madelin Becerril MD Primary Care Provider Encounter Details Date Type Department Care Team Description 08/12/1994 Office Visit Jose E Baig of other Practice MD Shayna [facility] [address] [place], [place] [id number] Social History Tobacco Use Types Packs/Day Years Used Date Smoking Tobacco: Never Assessed Sex Assigned at Date Recorded Not on file documented as of this encounter Progress Notes Jose E Angeles MD - 08/12/1994 12:00 AM CSTS. Here for brief OB exam. LMP ll-20, giving EDC of 8-27-95. Menses 11/30, last menses was a pill withdrawal,so ovulation is uncertain. Generally feeling good with slight nausea and no vomiting. No risks for ectopic. O. Pelvic Exam is Nl. A. Low Risk For Ectopic . P. Vitamins. Routine Ob. Return for lst OB exam. cc: GATOR SPRINKLING SYSTEM documented in this encounter Plan of Treatment Not on filedocumented as of this encounter Visit Diagnoses Diagnosis Supervision of other normal documented in this encounter Care Teams Clam Sorter Relationship Specialty Start Date End Date Madelin Becerril MD PCP - General 07/17/1996 07/20/00 [address] [id number] documented as of this encounter
--- OUTSIDE RECORDS SUMMARY | 2022-04-23 15:42 | XMS_ITS | Encounter Summary ---
:1970 Author Organization [facility] Address [address] [place] [address] Care Team Providers Name Role Phone Madelin Becerril MD Primary Care Provider Encounter Details Date Type Department Care Team Description 02/20/1995 Office Visit Madelin Becerril MD Supervision of [...] normal documented in this encounter Care Teams Hat And Cap Opener Relationship Specialty Start Date End Date Madelin Becerril MD PCP - General 07/17/1996 07/20/00 [address] [id number] documented as of this encounter
--- OUTSIDE RECORDS SUMMARY | 2022-04-23 15:42 | XMS_ITS | Encounter Summary ---
:1970 Author Organization [facility] Address [address] [place] [address] Care Team Providers Name Role Phone Madelin Becerril MD Primary Care Provider Encounter Details Date Type Department Care Team Description 03/13/1995 Office Visit Madelin Becerril MD Supervision of [...] normal documented in this encounter Care Teams Buck Presser Relationship Specialty Start Date End Date Madelin Becerril MD PCP - General 07/17/1996 07/20/00 [address] [address] documented as of this encounter
--- OUTSIDE RECORDS SUMMARY | 2022-04-23 15:42 | XMS_ITS | Encounter Summary ---
:1970 Author [facility] Address [address] [place] [address] Care Team Providers Name Role Phone Madelin Becerril MD Primary Care Provider Encounter Details Date Type Department Care Team Description 01/13/1995 Office Visit Madelin Becerril MD Supervision of [...] normal documented in this encounter Care Teams Etcher Apprentice Relationship Specialty Start Date End Date Madelin Becerril MD PCP - General 07/17/1996 07/20/00 [address] [address] documented as of this encounter
--- OUTSIDE RECORDS SUMMARY | 2022-04-23 15:42 | XMS_ITS | Encounter Summary ---
:1970 Author [facility] Address [address] [address] Care Team Providers Name Role Phone Madelin Becerril MD Primary Care Provider Encounter Details Date Type Department Care Team Description 01/01/1995 Office Visit [facility] Graham Beaulieu ntenatal and Gynecology MD Arabella screening [address] [place] [address] Social History Tobacco Use Types Packs/Day Years Used Date Smoking Tobacco: Never Assessed Sex Assigned at Date Recorded Not on file documented as of this encounter Plan of Treatment Not on filedocumented as of this encounter Visit Diagnoses Diagnosis Other screening Other specified screening documented in this encounter Care Teams Repeater Chief Relationship Specialty Start Date End Date Madelin Becerril MD PCP - General 07/17/1996 07/20/00 [address] [place] [address] documented as of this encounter
--- OUTSIDE RECORDS SUMMARY | 2022-04-23 15:42 | XMS_ITS | Encounter Summary ---
:1970 Author [facility] Address [address] [place] [address] Care Team Providers Name Role Phone Madelin Becerril MD Primary Care Provider Encounter Details Date Type Department Care Team Description 01/20/1995 Office Visit Madelin Becerril MD Supervision of [...] normal documented in this encounter Care Teams Window Clerk Relationship Specialty Start Date End Date Madelin Becerril MD PCP - General 07/17/1996 07/20/00 [address] [address] documented as of this encounter
--- OUTSIDE RECORDS SUMMARY | 2022-04-23 15:42 | XMS_ITS | Encounter Summary ---
:1970 Author [facility] Address [address] [place] [address] Care Team Providers Name Role Phone Steve Alston MD Primary Care Provider Encounter Details Date Type Department Care Team Description 08/04/1989 PN Conversion Only ULTRASOUND TESTER [address] [facility] Steve Alston [facility] [address] [facility] [address] [address] [place] [address] (Wo rk) Social History Tobacco Use Types Packs/Day Years Used Date Smoking Tobacco: Never Assessed Sex Assigned at Date Recorded Not on file documented as of this encounter Plan of Treatment Not on filedocumented as of this encounter Visit Diagnoses Not on filedocumented in this encounter Care Teams Coremaker Relationship Specialty Start Date End Date Steve Alston MD PCP - General 11/05/10 04/14/13 [address] [facility] [address] [place] [address] documented as of this encounter
--- OUTSIDE RECORDS SUMMARY | 2022-04-23 15:42 | XMS_ITS | Encounter Summary ---
:1970 Author Organization [facility] Address [address] [address] Care Team Providers Name Role Phone Madelin Becerril MD Primary Care Provider Encounter Details Date Type Department Care Team Description 05/15/1994 Office Visit Bandar Haider MD Pain in joint, lower leg [address] [place], [place] [phone] (Wo rk) Social History Tobacco Use Types Packs/Day Years Used Date Smoking Tobacco: Never Assessed Sex Assigned at Date Recorded Not on file documented as of this encounter Progress Notes Bandar Haider MD - 05/15/1994 12:00 AM CDTS. Rt. knee pain for 3-4 wks. 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 No swelling or limitation of ROM. Worse when she sits cross legged or ascends stairs. 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 O. Lt. knee is unremarkable. Rt. knee reveals no other swelling or erythema. Moderately positive groin test. No ligamentous instability or limitation of ROM. A. Rt. Patello-Femoral Pain. P. Ice, Ibuprofen, rest. Exercises were given. F/U in 2-3 wks. prn. cc: documented in this encounter Plan of Treatment Not on filedocumented as of this encounter Visit Diagnoses Diagnosis Pain in joint, lower leg documented in this encounter Care Teams Marble Finisher Relationship Specialty Start Date End Date Madelin Becerril MD PCP - General 07/17/1996 07/20/[address] [place] [address] documented as of this encounter
--- OUTSIDE RECORDS SUMMARY | 2022-04-23 15:42 | XMS_ITS | Encounter Summary ---
:1970 Author Organization [facility] Address [address] [place] [address] Care Team Providers Name Role Phone Madelin Becerril MD Primary Care Provider Encounter Details Date Type Department Care Team Description 07/22/1994 Office Visit Jose E Baig of skin Practice MD Shayna [facility] [address] [place], [place] [phone] Social History Tobacco Use Types Packs/Day Years Used Date Smoking Tobacco: Never Assessed Sex Assigned at Date Recorded Not on file documented as of this encounter Progress Notes Jose E Angeles MD - 07/22/1994 12:00 AM CSTS. Here for Rt. arm and wrist pain. For the last 3 yrs. she would find that her hand would go numb on occasion and just recently it has been more bothersome. This last weekend she had a lot of mid Rt. forearm pain particularly at night. Seems to increase with use of the wrist. Had difficulty sleeping last Friday night because of the pain and numbness. 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 She does have a fair amount of tightness of the neck and upper back. At age l4 she had a neck injury which resulted with her being treated with a brace for a period of time. O. Full motion of the neck and she has some discomfort or slowness at extremes of motion. Neuro Exam is Neg. There is no tenderness of the wrist. Flexion of the wrist causes some tingling in the hand. A. Somewhat puzzling picture, possible CTS, possible thoracic outlet syndrome. P. For now will treat with bilateral wrist splints particularly at night. TSH. Routine DT. Neck book. Ibuprofen. cc: NARY SPECIALIST documented in this encounter Plan of Treatment Not on filedocumented as of this encounter Visit Diagnoses Diagnosis Disturbance of skin sensation documented in this encounter Care Teams Director Of Casework Relationship Specialty Start Date End Date Madelin Becerril MD PCP - General 07/17/1996 07/20/00 [address] [place] [address] documented as of this encounter
--- OUTSIDE RECORDS SUMMARY | 2022-04-23 15:42 | XMS_ITS | Encounter Summary ---
:1970 Author [facility] Address [address] [place] [address] Care Team Providers Name Role Phone Madelin Becerril MD Primary Care Provider Encounter Details Date Type Department Care Team Description 03/04/1995 Office Visit Madelin Becerril MD Supervision of [...] normal documented in this encounter Care Teams Welder/Installer Relationship Specialty Start Date End Date Madelin Becerril MD PCP - General 07/17/1996 07/20/00 [address] [address] documented as of this encounter
--- OUTSIDE RECORDS SUMMARY | 2022-04-23 15:42 | XMS_ITS | Encounter Summary ---
:1970 Author Organization [facility] Address [address] [place] [address] Care Team Providers Name Role Phone Madelin Becerril MD Primary Care Provider Encounter Details Date Type Department Care Team Description 09/09/1994 Office Visit Thien Covington MD Supervision of other normal [address] [place] [address] (Wo rk) Social History Tobacco Use Types Packs/Day Years Used Date Smoking Tobacco: Never Assessed Sex Assigned at Date Recorded Not on file documented as of this encounter Plan of Treatment Not on filedocumented as of this encounter Visit Diagnoses Diagnosis Supervision of other normal documented in this encounter Care Teams Supervisor Body Assembly Relationship Specialty Start Date End Date Madelin Becerril MD PCP - General 07/17/1996 07/20/[address] [place] [address] documented as of this encounter
--- OUTSIDE RECORDS SUMMARY | 2022-04-23 15:42 | XMS_ITS | Encounter Summary ---
:1970 Author Organization [facility] Address [address] [address] Care Team Providers Name Role Phone Britney Jarrett MD Primary Care Provider Encounter Details Date Type Department Care Team Description 02/25/1995 Orders Only Madelin Huber Social History Tobacco [...] documented as of this encounter Care Teams Fire Prevention Bureau Captain Relationship Specialty Start Date End Date Britney Jarrett MD PCP - General 04/04/161999 [place] [address] documented as of this encounter
--- OUTSIDE RECORDS SUMMARY | 2022-04-23 15:42 | XMS_ITS | Encounter Summary ---
:1970 [facility] Address [address] [place] [address] Care Team Providers Name Role Phone Madelin Becerril MD Primary Care Provider Encounter Details Date Type Department Care Team Description 03/18/1995 Office Visit Madelin Becerril MD Supervision of [...] normal documented in this encounter Care Teams Vocational Rehabilitation Counselor Relationship Specialty Start Date End Date Madelin Becerril MD PCP - General 07/17/1996 07/20/00 [address] [address] documented as of this encounter
--- OUTSIDE RECORDS SUMMARY | 2022-04-23 15:42 | XMS_ITS | Encounter Summary ---
:1970 [facility] Address [address] [place] [address] Care Team Providers Name Role Phone Madelin Becerril MD Primary Care Provider Encounter Details Date Type Department Care Team Description 02/06/1995 Office Visit Madelin Becerril MD Supervision of [...] normal documented in this encounter Care Teams Butt Sawyer Relationship Specialty Start Date End Date Madelin Becerril MD PCP - General 07/17/1996 07/20/00 [address] [address] documented as of this encounter
--- OUTSIDE RECORDS SUMMARY | 2022-04-23 15:42 | XMS_ITS | Encounter Summary ---
:1970 [facility] Address [address] [place] [address] Care Team Providers Name Role Phone Madelin Becerril MD Primary Care Provider Encounter Details Date Type Department Care Team Description 10/14/1994 Office Visit Madelin Becerril MD Supervision of [...] normal documented in this encounter Care Teams Boomswing Operator Relationship Specialty Start Date End Date Madelin Becerril MD PCP - General 07/17/1996 07/20/00 [address] [address] documented as of this encounter
--- OUTSIDE RECORDS SUMMARY | 2022-04-23 15:42 | XMS_ITS | Encounter Summary ---
:1970 Author [facility] Address [address] [place] [address] Care Team Providers Name Role Phone Madelin Becerril MD Primary Care Provider Encounter Details Date Type Department Care Team Description 02/25/1995 Office Visit Madelin Becerril MD Supervision of [...] normal documented in this encounter Care Teams Reception Clerk Relationship Specialty Start Date End Date Madelin Becerril MD PCP - General 07/17/1996 07/20/00 [address] [address] documented as of this encounter
--- OUTSIDE RECORDS SUMMARY | 2022-04-23 15:43 | XMS_ITS | Encounter Summary ---
:1970 Author Organization [facility] Address [address] [place] [id number] Care Team Providers Name Role Phone Unavailable Primary Care Provider Unavailable Reason for Visit Outpatient (Routine) - Closed Specialty Diagnoses / Procedures Referred By Contact Refer red To Contact Neurology Diagnoses Mass Axilla Left Pain Back Thoracic Fatigue Primary Osteoarthritis Cervical Spine Cyst Renal Abnormal Magnetic Resonance Imaging Mu Kong D.O. [facility] Procedures Neurology - General neurology eConsult [address] [place] [address] [phone] Referral ID Status Reason Start Date Expiration Date Visits Requ ested Visits Authorized [id number] Closed 12/07/2021 12/07/2022 1 1 Encounter Details Date Type Department Care Team Description 12/11/2021 Internal E-Consult Department of Mu Kong D.O. [address] [place] [address] [phone] Mass Axilla Left; Neurology in Lyndon Camacho M.D., Ph.D. [address] [place] [phone] Pain Back Thoracic; [facility]; [place] Primary Osteoarthritis Cervi roberto Spine; [address] [facility] Cyst Renal; [place], [place] Abnormal Magne tic Resonance Imaging [phone] Social History Tobacco Use Types Packs/Day Years Used Date Smoking Tobacco: Never Smokeless Tobacco: Never Alcohol Use Standard Drinks/Week Comments Yes 0 (1 standard drink = 0.6 oz pure alcoho l) Alcohol Habits Answer Date Recorded How often do you have a drink containing alcohol? Monthly or less 11/30/2021 How many drinks containing alcohol do you have on a 1 or 2 11/30/2021 typical day when you are drinking? How often do you have six or more drinks on one Never 11/30/2021 occasion? Comment: Not asked Social Isolation Answer Date Recorded In a typical week, how many times do you Once a week 11/30/2021 talk on the phone with family, friends, or neighbors? How often do you get together with friends Once a week 11/30/2021 or relatives? How often do you attend anabaptism or caodaism More than 4 time s per year 11/30/2021 services? Do you belong to any clubs or organizations Yes 11/30/2021 such as anabaptism groups, unions, fraternal or athletic groups, or school groups? How often do you attend meetings of the More than 4 times pe r year 11/30/2021 clubs or organizations you belong to? Are you now , , , 11/30/2021 , never or living with a partner? Physical Activity Answer Date Recorded On average, how many days per week do you engage in moderate to 3 days 11/30/2021 strenuous exercise (like walking fast, running, jogging, dancing, swimming, biking, or other activities that cause a light or heavy sweat)? On average, how many minutes do you engage in exercise at th is 40 min 11/30/2021 level? Stress Answer Date Recorded Do you feel stress - tense, restless, nervous, or To some ex tent 11/30/2021 anxious, or unable to sleep at night because your mind is troubled all the time - these days? Financial Resource Strain Answer Date Recorded How hard is it for you to pay for the very basics like Not v muna hard 11/30/2021 food, housing, medical care, and heating? Intimate Partner Violence Answer Date Recorded Within the last year, have you been afraid of your partner o r No 11/30/2021 ex-partner? Within the last year, have you been humiliated or emotionall y No 11/30/2021 abused in other ways by your partner or ex-partner? Within the last year, have you been kicked, hit, slapped, or No 11/30/2021 otherwise physically hurt by your partner or ex-partner? Within the last year, have you been raped or forced to have any No 11/30/2021 kind of sexual activity by your partner or ex-partner? Food Insecurity Answer Date Recorded Within the past 12 months, you worried that your food would Never true 11/30/2021 run out before you got money to buy more. Within the past 12 months, the food you bought just didn't N ever true 11/30/2021 last and you didn't have money to get more. Transportation Needs Answer Date Recorded In the past 12 months, has lack of transportation kept you f rom No 11/30/2021 medical appointments or from getting medications? In the past 12 months, has lack of transportation kept you f rom No 11/30/2021 meetings, work, or getting things needed for daily living? Housing Stability Answer Date Recorded In the last 12 months, was there a time when you were not ab le No 11/30/2021 to pay the mortgage or rent on time? In the last 12 months, how many places have you lived? 1 11/30/2021 In the last 12 months, was there a time when you did not hav e a No 11/30/[address] sleep or slept in a alf (including now)? Education Answer Date Recorded What is the highest level of school Master's degree (e.g., M A, MS, 08/08/2019 you have completed or the highest Anika, MEd, DIETITIAN CONSULTANT, SINDY) degree you have received? Sex Assigned at Date Recorded Female 03/04/2018 7:21 PM CDT documented as of this encounter Consult Notes Lyndon Camacho M.D., Ph.D. - 12/18/2021 4:00 PM CDT SUBJECTIVE Ordering Physician: Mu Kong D.O. The patient was not personally interviewed or examined. The history and examination findings are based on the clinical documentation provided and/or discussed with a physician or provider who had personally interviewed and examined the patient. Time spent: Five minutes or more of medical review. Chief Complaint / Reason for Visit A consult was placed regarding Josie Booker, a 51 y.o. female. Clinical question to be answered: Recommendation on need for evaluation or follow-up of the outside MRI interpretation finding of Apparently new nonspecific punctate focus of white matter signal abnormality in the cord at C2-3. History of Present Illness I reviewed the note of Dr. Salvador from December 18, 2021 , documenting a history of generalized fatigue& widespread pain with the diagnoses of fibromyalgia and chronic fatigue syndrome. 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 Hercervical spine MRI scan documents a C6-7 instrumented fusion. OBJECTIVE I reviewed her MRI cervical spine scan from May 03, 2021. I note that neuroradiology commentedabout a C2-3 punctate lesion. I saw that lesion only on the sagittal STIR images. I did not see thaton the axial images. The images were done without contrast. ASSESSMENT / PLAN # 1 C2-3 MRI cervical spine punctate lesion This lesion does not seem obviously relevant to the symptoms for which Mrs. Booker is being evaluated. To my eye, this lesion was barely perceptible and I only sought on one sequence. It does not haveany ominous qualities and I do not think that it needs to be further evaluated unless symptoms or signs suggest a high cervical lesion. documented in this encounter Plan of Treatment Not on filedocumented as of this encounter Visit Diagnoses Diagnosis Mass Axilla Left Pain Back Thoracic Fatigue Primary Osteoarthritis Cervical Spine Cyst Renal Abnormal Magnetic Resonance Imaging documented in this encounter
--- OUTSIDE RECORDS SUMMARY | 2022-04-23 15:43 | XMS_ITS | Clinical Summary ---
:1970 Author Organization [facility] Address [address] [place] [address] Care Team Providers Name Role Phone Unavailable Primary Care Provider Unavailable Source Comments Patient records contain information from all sites at [facility]. For routine questions regarding patient records, call [phone] during business hours, M-F 8:00 AM - 5:00 PM Central Time. Record requests for emergency care only can be directed to [phone] at any time.[facility] Allergies Active Allergy Reactions Severity Noted Date Comments Mold Other (see comments) 01/30/2017 sinus i nfection Medications Medication Sig Dispensed Refills Start Date End Date Status acetaminophen (TYLENOL) Take 1,000 mg by 0 Active 500 mg tablet mouth as needed for pain. cholecalciferol, vitamin Take 1,000 Units 0 Active D3, 25 mcg (1,000 Unit) by mouth every tablet morning. cyclobenzaprine Take 5-10 mg by 0 Active (FLEXERIL) 10 mg tablet mouth as needed for muscle spasms. Lactobacillus Take 1 capsule 0 A ctive acidophilus (Probiotic) by mouth every 10 billion cell capsule morning. calcium carbonate 1,500 Take 600 mg of 0 09/19/2021 Active mg (600 mg calcium) calcium by mouth tablet daily. Active Problems Problem Noted Date Primary Osteoarthritis Cervical Spine 12/07/2021 Cyst Renal 12/07/2021 Fatigue 12/03/2021 Screening Osteoporosis 12/03/2021 Pain Back Thoracic 12/03/2021 Fibromyalgia 12/03/2021 Mass Axilla Left 12/03/2021 Gastroesophageal Reflux Disease 12/03/2021 Preoperative Exam 04/21/2019 Overview: Added automatically from request for mckenna bonilla [id number] Stenosis Spinal 04/21/2019 Overview: Added automatically from request for mckenna bonilla [id number] Encounters Date Type Specialty Care Team Description 03/14/2022 Ancillary Procedure Radiology Saadiq, Abnormal Findings On Rayya A, Diagnostic Imag ing Of D.O. Other Parts Of Musculoskeletal System 02/01/2022 Clinical Integrative Ayan, Communication Medicine Yung E, R.NEarl 01/31/2022 Education Integrative Hanh Garcia Fibromyalgia (P [facility] Medicine E, R.N. Dx) from Last 3 Months Immunizations Name Administration Dates Next Due DT, Pediatric 07/22/1994 HepA / HepB 02/24/2015, 01/19/2015 Influenza TIV (IM) 05/06/2013, 05/07/2012, 05/28/2011, 05/31/2010, 06/14/2003, 06/17/2002, 06/23/2001, 07/24/2000, 05/14/1999 Influenza, Injectable, Quadrivalent 05/31/2019 Influenza, Seasonal, Injectable 05/06/2013, 05/07/2012, 05/05, 05/31/2010, 06/14/2003, 06/17/2002, 06/23/2001, 07/24/2000, 05/14/1999 Influenza, Unspecified 05/31/2019, 05/12/1998, 05/18/1997, 05/12/1996 RZV (SHINGRIX) 12/03/2021 (Deferred: Other) Td (Adult), adsorbed 04/27/1999, 07/22/1994 Td Preservative Free (TENIVAC, 02/23/1999 DECAVAC) Tdap 05/07/2012, 05/07/2012, 02/23/2009 TyVi (inj) 01/19/2015 influenza vaccine quad 04/28/2020, 05/05/2018, 09/11/2017, (FLUZONE/FLUARIX) (6 months and 05/05/2014 older)(PF) Family History Medical History Relation Name Comments Other cancer Brother Dmitriy Schiller Throat Cancer - 52 years old ADD Daughter Marianne Booker Diabetes Daughter Marianne Booker Type 1 Diabetes Father Yovani Alejoiller Type 2 Stroke Father Yovani Martinez 81 years old Arthritis Mother Jenniffer Martinez Breast cancer Mother Jenniffer Martinez Osteoporosis Mother Jenniffer Martinez Leukemia Paternal Grandmother Jolly Martinez Other cancer Sister Alondra Bacon Uterine cancer- 55 years old Relation Name Status Comments Brother Dmitriy Martinez Daughter Marianne Booker Father Yovani Martinez Mother Jenniffer Martinez Paternal Grandmother Jolly Martinez Sister Alondra Bacon Social History Tobacco Use Types Packs/Day Years [...] or relatives? How often do you attend christian or cheondoism More than 4 time s per year 11/30/2021 services? Do you belong to any clubs or organizations Yes 11/30/2021 such as christian groups, unions, fraternal or athletic groups, or [...] place to sleep or slept in a retirement (including now)? Education Answer Date Recorded What is the highest level of school Master's degree (e.g., M A, MS, 08/08/2019 you have completed or the highest Anika, MEd, ENTERPRISE ANALYST, SINDY) degree you have received? Sex Assigned at Date Recorded Female 03/04/2018 7:21 PM CDT Last Filed Vital Signs Vital Sign Reading Time Taken Comments Blood Pressure 116/77 12/03/2021 7:48 AM CDT Pulse 81 12/03/2021 7:48 AM CDT Temperature 37 ??C (98.6 ??F) 08/14/2019 12:30 PM RESEARCH LABORATORY MANAGER Respiratory Rate 17 08/14/2019 12:30 PM RESEARCH LABORATORY MANAGER Oxygen Saturation 98% 08/14/2019 12:34 PM RESEARCH LABORATORY MANAGER Inhaled Oxygen Concentration - - Weight 67.8 kg (149 lb 7.6 oz) 12/03/2021 7:48 AM CDT Height 153.1 cm (5' 0.28) 12/03/2021 7:48 AM CDT Body Mass Index 28.93 12/03/2021 7:48 AM CDT Plan of Treatment Health Maintenance Due Date Last Done Comments CT Colonography 1970 Cologuard 1970 FIT 1970 HIV Screening 1970 Hepatitis B Vaccines (3 of 07/27/2015 02/24/2015, 5 3 - Hep B Twinrix 3-dose series) Zoster Vaccines (1 of 2) 2018 COVID-19 Vaccine (4 - 08/03/2021 06/08/2021, 10/27/2020, Booster for Moderna series) 09/28/2020 Cervical Cancer Screening 10/16/2021 10/16/2018, 08/03/2014 (Performed elsewhere) Influenza Vaccine (#1) 2022 04/28/2020, 05/31/2019, 05/31/2019, Additional history exists DTaP,Tdap,and Td Vaccines 05/07/2022 05/07/2012, 05/07/2012 , (6 - Td or Tdap) 02/23/2009, Additional history exists Mammogram 08/27/2022 08/27/2021, 02/13/2021, 02/09/2020, Additional history exists Hepatitis C Screening 12/03/2022 Postponed from 1970 (Alicia ent Refused) Fasting Glucose for 12/04/2024 12/04/2021, 08/11/2019 Diabetes Screening Lipid (Cholesterol) 12/04/2026 12/04/2021, 08/03/2015 Screening (Performed elsewhere) Colonoscopy 05/26/2029 05/26/2019 (Performed elsewhere) Colorectal Cancer Screening 05/26/2029 Depression Screening Completed 12/02/2021 (Annual PHQ-2) Pneumococcal vaccine (0-64 Aged Out No lo nger eligible years) based on patient 's age to complete this topic Medical Devices Implanted Type Area Log Handling Equipment Operator Device Shelf Model / Serial Identifier Expiration / Lot Date Allogenic, Femoral Head - [id number] - [id number] Bone or Posterior [facility] - 07/08/2021 [id number] / Implanted: Qty: 1 on 08/12/2019 by Steve Farias M.D. at [facility] Tissue : Spine Temple [id number] / Lumbar Tie Siding [id number] Breast Implant-08/04/2009 Breast Bilateral Implanted: 08/04/2009 (Quantity not on file) Implant : Breast Hardware E.G. Pins/Screws/Rods-08/04/2008 Hardware Neck Implanted: 08/04/2008 (Quantity not on file) e.g. pins/screws /rods Description: C6-C7 part of fusion Spn Noble Exp Pr Ld 6.35x65 - Sna - [id number] Hardware e.g. Posterior: Spine Depuy [id number] / Implanted: Qty: 1 on 08/12/2019 by Steve Farias M.D. at [facility] pins/screws/rods Lumbar Synthes NA / NA Procedures Procedure Name Priority Date/Time Associated Diagnosis Comme nts INTERPRETATION OF RAD - Routine 03/14/2022 8:10 Abnormal Findings O n Results for OUTSIDE MR HEAD (most inpatients PM CDT Diagnostic Imaging th is procedure and all Of Other Parts Of are in the outpatients) Musculoskeletal results System section. from Last 3 Months Results Interpretation of Outside MR Head (03/14/2022 8:10 PM CDT) Anatomical Region Laterality Modality Neuroradiology RST LOS, Neuroradiology ARZ LOS, N/A Magnetic Resonance Neuroradiology FLA LOS, Head, Other Specimen (Source) Anatomical Collection Method Collection Time Re ceived Time Location / / Volume Laterality 03/15/2022 7:07 AM CDT Impressions 03/15/2022 11:32 AM CDT No intracranial abnormality. Nothing for demyelinating disease. Narrative 03/15/2022 11:32 AM CDT EXAM: ??INTERPRETATION OF OUTSIDE MR HEAD COMPARISON: ??Outside MRI cervical spine 05/03/2021. FINDINGS: Outside MRI brain without IV contrast : No findings for supratentorial or infrat entorial T2 hyperintense lesions. Nothing to suggest a demyelinating lesion. Previously seen pu nctate T2 hyperintense focus at C2-C3 is not visualized/covered on this exam. Nothing for infarct, mass, hemorrhage or extra-axial fluid collection. Trace mucosal thickening ethmoid air cells and right maxillary si nus. Mastoid air cells are clear. Mild right TMJ arthrosis. Procedure Note Jonathan Dowling M.D. - 03/15/2022Formatt ing of this note might be different from the original. EXAM: INTERPRETATION OF OUTSIDE MR HEAD COMPARISON: Outside MRI cervical spine 0 05/03/2021. FINDINGS: Outside MRI brain without IV contrast : No findings for supratentorial or infrat entorial T2 hyperintense lesions. Nothing to suggest a demyelinating lesion. Previously seen pu nctate T2 hyperintense focus at C2-C3 is not visualized/covered on this exam. Nothing for infarct, mass, hemorrhage or extra-axial fluid collection. Trace mucosal thickening ethmoid air cells and right maxillary si nus. Mastoid air cells are clear. Mild right TMJ arthrosis. IMPRESSION: No intracranial abnormality. Nothing for demyelinating disease. Mu Kong D.O. IMRobin MRI PROCEDURES from Last 3 Months Insurance Payer Benefit Plan Subscriber ID Effective Dates Phone Address Type / Group [facility]UE [facility] [id number] [facility] [phone] [address] [address] PPO [facility] [address] [place] [address] Advance Directives For more information, please contact: [phone] Latest Code Status on File Code Status Date Activated Date Inactivated Comments Full Code 08/12/2019 1:44 PM 08/14/2019 3:15 PM Full Code: Discussed
--- OUTSIDE RECORDS SUMMARY | 2022-04-23 15:43 | XMS_ITS | Encounter Summary ---
:1970 Author Organization [facility] Address [address] [place] [address] Care Team Providers Name Role Phone Unavailable Primary Care Provider Unavailable Encounter Details Date Type Department Care Team Description 12/07/2021 Ancillary Department of Saadiq, Rayya Mass Axilla L eft; Procedure Radiology in A, D.O. Pain Back Thoracic; [place] [id number] [address] [facility]; [place], [place] Primary Osteoarthritis Cervi roberto Spine [address] [facility] [phone] [place], [place] [phone] (Work) Social History Tobacco Use Types Packs/Day Years [...] or relatives? How often do you attend mormon or roman catholic More than 4 time s per year 11/30/2021 services? Do you belong to any clubs or organizations Yes 11/30/2021 such as mormon groups, unions, fraternal or athletic groups, or [...] place to sleep or slept in a half-way (including now)? Education Answer Date Recorded What is the highest level of school Master's degree (e.g., M A, MS, 08/08/2019 you have completed or the highest Anika, MEd, CLINICAL EDITOR, SINDY) degree you have received? Sex Assigned at Date Recorded Female 03/04/2018 7:21 PM CDT documented as of this encounter Plan of Treatment Not on filedocumented as of this encounter Procedures Procedure Name Priority Date/Time Associated Diagnosis Comme nts INTERPRETATION OF RAD - Routine 12/07/2021 Mass Axilla Le ft Results for OUTSIDE MR SPINE (most inpatients 12:49 PM CDT Pain Back Thor acic this procedure and all Fatigue are in the outpatients) Primary results Osteoarthritis section. Cervical Spine documented in this encounter Results Interpretation of Outside MR Spine (12/07/2021 12:49 PM CDT) Anatomical Region Laterality Modality Neuroradiology RST LOS, Neuroradiology ARZ LOS, N/A Magnetic Resonance Neuroradiology FLA LOS, Spine, Other Specimen (Source) Anatomical Collection Method Collection Time Re ceived Time Location / / Volume Laterality 12/07/2021 1:10 PM CDT Impressions 12/07/2021 1:21 PM CDT No significant change since 07/25/2015. Narrative 12/07/2021 1:21 PM CDT EXAM: ??INTERPRETATION OF OUTSIDE MR SPINE FINDINGS: ??MRI thoracic spine without g adolinium 05/03/2021. Indication neck and back pain. Comparison low-field strength MR 015. The thoracic cord and conus appear intac t. No thoracic spinal canal stenosis. Incidental vertebral body hemangioma at T1. Subtle chronic be nign depression of the T2 superior endplate is not changed. Mild right facet hypertrophy at T4-5 wit hout significant foraminal compromise. Mild disc bulge at T10-11 is not significantly changed, wit h no significant foraminal compromise. Procedure Note Noe Henley M.D. - 12/07/2021Format ting of this note might be different from the original. EXAM: INTERPRETATION OF OUTSIDE MR SPINE FINDINGS: MRI thoracic spine without christofer olinium 05/03/2021. Indication neck and back pain. Comparison low-field strength MR 015. The thoracic cord and conus appear intac t. No thoracic spinal canal stenosis. Incidental vertebral body hemangioma at T1. Subtle chronic be nign depression of the T2 superior endplate is not changed. Mild right facet hypertrophy at T4-5 wit hout significant foraminal compromise. Mild disc bulge at T10-11 is not significantly changed, wit h no significant foraminal compromise. IMPRESSION: No significant change since 07/25/2015. Mu DONOHUE MRI PROCEDURES documented in this encounter Visit Diagnoses Diagnosis Mass Axilla Left Pain Back Thoracic Fatigue Primary Osteoarthritis Cervical Spine documented in this encounter
--- OUTSIDE RECORDS SUMMARY | 2022-04-23 15:43 | XMS_ITS | Encounter Summary ---
:1970 Author Organization [facility] Address [address] [place] [address] Care Team Providers Name Role Phone Unavailable Primary Care Provider Unavailable Reason for Visit Reason Comments Fibromyalgia Encounter Details Date Type Department Care Team Description 01/07/2022 Education Integrative Medicine and Yung Botello, Fibromyalgia Health in [facility] [address] [facility] [address] [place] [phone] Social History Tobacco Use Types Packs/Day Years [...] or relatives? How often do you attend tenriism or yazdanism More than 4 time s per year 11/30/2021 services? Do you belong to any clubs or organizations Yes 11/30/2021 such as tenriism groups, unions, fraternal or athletic groups, or [...] place to sleep or slept in a longterm (including now)? Education Answer Date Recorded What is the highest level of school Master's degree (e.g., M A, MS, 08/08/2019 you have completed or the highest Anika, MEd, BANQUET BARTENDER, SINDY) degree you have received? Sex Assigned at Date Recorded Female 03/04/2018 7:21 PM CDT documented as of this encounter Progress Notes Yung Botello R.Erica. - 01/07/2022 1:00 PM CDT Ms. Booker attended virtual class alone. Patient completed the first half (240 minutes) of the 8 hour [facility] self-management session. They were 1 of 4 participants. Education conducted via real-time audio/video technology by Dianna Dutta R.N., Yung Botello R.N. and Jagruti Guaman R.N. in [facility] to the patient in their home. OBJECTIVE Information about the following educational topics was provided during first session of group class:symptoms:: 1. Definition,and body processes associated with fibromyalgia and chronic fatigue 2. Acute versus chronic pain 3. Cycle of chronic pain and fatigue; 4. Effects of chronic stress and introduce self-management including stress management. 5. Medication and Nutrition The following written materials were provided: Fibromyalgia: road to wellness (KI2504-208), Chronic Fatigue: Road to Wellness (EP1584 - 200), stretches and exercise guidelines to help with chronic painor fatigue (SU9962 nzz0707), Finding Reliable Health Information on the Internet (TT0186), Time Management (MT7038), Time Management worksheet ([id number]), Energy-saving Techniques (BU2196-91), Relaxation Skills to Relieve your Symptoms ([id number]), Exercise; Getting Started ([id number]),, Eat Well: Use the Plate Method (BK2512), How to get the Healthy sleep you need ([id number]),Gentle Yoga ([id number]), It's Your Life; Take Charge (ZU4773-55), My Personal Plan (GD2084-52) and Understanding Central Sensitization (UJ1819-58) were also provided. ASSESSMENT / PLAN Patient verbalized understanding of program content. Patient may continue to need reinforcement of fibromyalgia and/or chronic fatigue syndrome self- management strategies by primary care provider. documented in this encounter Plan of Treatment Not on filedocumented as of this encounter Visit Diagnoses Diagnosis Fibromyalgia documented in this encounter Additional Health Concerns Assessment Noted Time PHQ-9 Depression Total Score: 5 12/16/2021 12:24 PM CD T documented as of this encounter
--- OUTSIDE RECORDS SUMMARY | 2022-04-23 15:43 | XMS_ITS | Encounter Summary ---
:1970 Author Organization [facility] Address [address] [place] [address] Care Team Providers Name Role Phone Unavailable Primary Care Provider Unavailable Reason for Referral Specialty Diagnoses / Procedures Referred By Contact Refer red To Contact RST Darvin [facility] [address] [place] [phone] Referral ID Status Reason Start Date Expiration Date Visits Requ ested Visits Authorized Encounter Details Date Type Department Care Team Description 01/31/2022 Education Integrative Medicine and Hanh Garcia F ibromyalgia (Primary Health in [facility]) [place] [address] [facility] [address] [place] [phone] Social History Tobacco Use Types Packs/Day Years [...] or relatives? How often do you attend baptist or episcopal More than 4 time s per year 11/30/2021 services? Do you belong to any clubs or organizations Yes 11/30/2021 such as baptist groups, unions, fraternal or athletic groups, or [...] place to sleep or slept in a detention (including now)? Education Answer Date Recorded What is the highest level of school Master's degree (e.g., M A, MS, 08/08/2019 you have completed or the highest Anika, MEd, SAMPLE CARRIER, SINDY) degree you have received? Sex Assigned at Date Recorded Female 03/04/2018 7:21 PM CDT documented as of this encounter Progress Notes Kristi Perea R.N. - 01/31/2022 8:00 AM CDT SUBJECTIVE CHIEF COMPLAINT / REASON FOR VISIT Ms. Booker attended virtual class alone. Patient completed the second half (240 minutes) of the 8 hour [facility] self-management session. They were 1 of 4 participants. Education conducted via real-time audio/video technology by Hanh Garcia R.N. and Kristi Perea R.N. and Brittanie Do; Healthy Living Program in [facility] to the patient in their home OBJECTIVE Information about the following educational topics was provided during session 2 of group class: 1. Symptom Focused Behavior 2. Sleep Hygeine 3. Thought Restructuring and Mood 4. Moderation and Time Management 5. Step-graded exercise and benefits of exercise 6. Relaxation 7. Complimentary Therapies 8. Goal setting and difficult day planning. Written materials were provided during Class 1. ASSESSMENT / PLAN The patient plans to utilize the following self-management skills: exercise by exploring online yogaoptions. Patient verbalized understanding of program content. Patient may continue to need reinforcement of fibromyalgia and/or chronic fatigue syndrome self- management strategies by primary care provider. documented in this encounter Plan of Treatment Scheduled Referrals Name Type Priority Associated Diagnoses Order S sherry Fibromyalgia Outpatient Referral Routine Fibromyalgia Ordered: self-guided eLearning 2021 documented as of this encounter Visit Diagnoses Diagnosis Fibromyalgia - Primary documented in this encounter Additional Health Concerns Assessment Noted Time PHQ-9 Depression Total Score: 5 12/16/2021 12:24 PM CD T documented as of this encounter
--- OUTSIDE RECORDS SUMMARY | 2022-04-23 15:43 | XMS_ITS | Encounter Summary ---
:1970 Author Organization [facility] Address [address] [place] [address] Care Team Providers Name Role Phone Unavailable Primary Care Provider Unavailable Reason for Referral Outpatient (Routine) - Closed Specialty Diagnoses / Procedures Referred By Contact Refer red To Contact Neurology Diagnoses Mass Axilla Left Pain Back Thoracic Fatigue Primary Osteoarthritis Cervical Spine Cyst Renal Abnormal Magnetic Resonance Imaging Mu Kong D.O. [facility] Procedures Neurology - General neurology eConsult [address] [place] [address] Referral ID Status Reason Start Date Expiration Date Visits Requ ested Visits Authorized [id number] Closed 12/07/2021 12/07/2022 1 1 Reason for Visit Appointment Request (Routine) - Closed Specialty Diagnoses / Procedures Referred By Contact Refer red To Contact General Internal Medicine Referral ID Status Reason Start Date Expiration Date Visits Requ ested Visits Authorized [id number] Closed 11/30/2021 11/30/2022 1 Encounter Details Date Type Department Care Team Description 12/07/2021 Telemedicine Division of General Mu Kong Mass Axilla Left (Primary Dx); Internal Medicine in [facility] Pain Back Thoracic; [place], [place] [address] [facility] Fatigue; [address] [place], [place] Primary Osteoarthritis Cervi roberto Spine; [place] [address] Cyst Renal; [phone] Abnormal Magnetic Resonance Imaging Social History Tobacco Use Types Packs/Day Years [...] or relatives? How often do you attend protestant or roman catholic More than 4 time s per year 11/30/2021 services? Do you belong to any clubs or organizations Yes 11/30/2021 such as protestant groups, unions, fraternal or athletic groups, or [...] place to sleep or slept in a prison (including now)? Education Answer Date Recorded What is the highest level of school Master's degree (e.g., M A, MS, 08/08/2019 you have completed or the highest Anika, MEd, GOPHERMAN, SINDY) degree you have received? Sex Assigned at Date Recorded Female 03/04/2018 7:21 PM CDT documented as of this encounter Progress Notes Mu Kong D.O. - 12/07/2021 2:00 PM CDT SUBJECTIVE REFERRAL SOURCE No ref. provider found HISTORY OF PRESENT ILLNESS This is a summary of Earl Josie Booker's evaluation in [facility]. Patient is returning after completing the recommended tests and consultations. ASSESSMENT / PLAN # chest pain and discomfort with outside diagnosis of costochondritis vs swallowing difficulty (dysphagia) - patient is currently under the care and has evaluation set up locally with her gastroenterology team. It was decided that she will continue to get the comprehensive workup done and when she has it she will bring me the reports/results of the EGD with pathology report, swallow evaluation and any other testing that was done locally for review. # 1 C2-3 MRI cervical spine punctate lesion Interpretation outside MR C-spine (05/03/2021): 1. Apparently new nonspecific punctate focus of white matter signal abnormality in the cord at C2-3.2. Otherwise stable examination since 07/10/2017. Neurology recommendation: - This lesion does not seem obviously relevant to the symptoms for which Mrs. Booker is being evaluated. To my eye, this lesion was barely perceptible and I only sought on one sequence. It does not have any ominous qualities and I do not think that it needs to be further evaluated unless symptoms or signs suggest a high cervical lesion. # hyperlipidemia - total cholesterol 269, HDL 80, LDL 170, triglyceride 93 - ASCVD Risk score: 1.3% (which is low risk for coronary artery disease/heart attack within the next10 years). - At these levels I would like her to improve her diet and have a regular exercise regimen. She doesnot need to be started on medication at this time. ?? # lump left armpit # Family history of breast cancer US Left axilla (12/04/2021): There is an approximately 0.4 x 2.0 x 1.7 cm in size ovoid shaped, fat-containing, mass like structure in the subcutaneous tissues of the left axillary region at the area of the patient's palpable concern. Doppler evaluation demonstrates no detectable internal blood flow. The lesion does not extend through the underlying muscular fascia. This structure demonstrates sonographic appearance most compatible with a subcutaneous lipoma. No left axillary lymphadenopathy. No other mass or fluid collection in the region. Recommendation: - Continue clinical follow-up with physical examination with primary crying provider yearly or earlier if there is any acute change noted by the patient. Specifically I have requested the patient not to palpated frequently as this may cause some irritation. - if there is a concerning change or increase in size then can consider further evaluation with a dedicated MRI scan or histologic confirmation. ?? # renal lesion versus cyst Patient noted that she has a renal lesion versus as cyst that is followed locally. Interpretation US (08/27/2020): Stable appearance of the 1.5 cm avascular hypoechoic lesion in the mid right kidney. Findings likely represent a renal cyst with or without hemorraghic/proteinaceous components with a small cystic renal lesion considered less likely. Recommendation: I explained to the patient that it is most likely a benign lesion that does not require any intervention at this time. If there is any concern can consider repeat ultrasound in 1 year or earlier if new symptoms arise. ?? # Fibromyalgia vs chronic fatigue vs central sensitization I had an extensive discussion with the patient on the pathophysiology as well as multimodality treatment for fibromyalgia. Specifically we discussed: 1) Exercise: Scheduled exercise regimen with gradual increase in intensity as well as duration. Information was given on a schedule to follow at this time. 2) Stress management: We discussed breathing exercises. she was given information on [place] relaxationtechnique/Meditation breathing instruction Tarun (AT EASE). 3) Improving sleep quality: Specifically we discussed trying sleep deprivation by waking up earlier in the morning at scheduled times and going to bed at specific time every night, to see if this wouldincrease her quality of sleep. Additionally, would recommend following the tips noted below, to establish healthy sleep habits: -- Keep a consistent sleep schedule. Get up at the same time every day, even on weekends or during vacations. -- Set a bedtime that is early enough for you to get at least 7 hours of sleep. -- Don't go to bed unless you are sleepy. -- If you don't fall asleep after 20 minutes, get out of bed. -- Establish relaxing bedtime rituals. -- Use your bed only for sleep and sex. -- Make your bedroom quiet and relaxing. Keep the room at a comfortable, cool temperature. -- Limit exposure to light in the evenings. -- Don't eat a large meal before bedtime. If you are hungry at night, eat a light, healthy snack. -- Exercise regularly and maintain a healthy diet. -- Avoid consuming caffeine in the late afternoon or evening. -- Avoid consuming alcohol before bedtime. -- Reduce your fluid intake before bedtime. 4) Improving eating habits: Recommend having a good breakfast in the morning, eating frequent small healthy meals, every 4 hours (rather than going long durations without food), eating dinner at least 3-4 hours prior to bed time and, staying away from food that seem to trigger symptoms. # CKD stage IIIA Creatinine 1.19 with EGFR 52. Going through the chart was noted that the last labs done at our facility was in 2019 with creatinine of 1.06 and EGFR 61. - We discussed the importance of appropriate hydration daily as well as minimizing nephrotoxins suchas NSAIDs (ibuprofen/Advil, Aleve/naproxen, etc) as well as iodine contacts material as much as possible. Spent greater than 25 mins. Images, laboratory tests, and consultations were reviewed with the patient in detail. Lengthy discussion. I have provided the rationale for my recommendations and the plan of management. It is a pleasure being part of the care for Ms. Josie Booker. documented in this encounter Plan of Treatment Not on filedocumented as of this encounter Results Interpretation of Outside US Abdomen and or Pelvis (12/07/2021 12:53 PM CDT) Anatomical Region Laterality Modality Ultrasound RST LOS, Ultrasound ARZ LOS, Ultrasound FLA LOS, N/A Ultrasound Abdomen, Other, Pelvis Specimen (Source) Anatomical Collection Method Collection Time Re ceived Time Location / / Volume Laterality 12/07/2021 1:29 PM CDT Impressions 12/07/2021 1:45 PM CDT Stable appearance of the 1.5 cm avascular hypoechoic lesion in the mid right kidney. Findings likely represent a renal cyst w ith or without hemorraghic/proteinaceous components with a small cystic renal lesion considered les s likely. Narrative 12/07/2021 1:45 PM CDT EXAM: ??INTERPRETATION OF OUTSIDE US ABDOMEN AND OR PELVIS COMPARISON: ??CT abdomen pelvis 10/26/19. FINDINGS: ??Interpretation of outside no ncontrast bilateral renal ultrasound with color Doppler dated 08/27/2021. Right kidney: 9.52 cm Cortical thickness: Normal. ?? Parenchymal echogenicity: Normal. Collecting system: No hydronephrosis Masses: In the mid right kidney, there i s a 1.5 cm avascular hypoechoic lesion. This is stable in comparison to outside CT abdomen pelvis 10/25/2020. Left kidney: 8.40 cm Cortical thickness: Normal. ?? Parenchymal echogenicity: Normal. Collecting system: No hydronephrosis. Masses: None detected. Procedure Note Kartik Aquino M.D. - 12/07/2021Form atting of this note might be different from the original. EXAM: INTERPRETATION OF OUTSIDE US ABDOM EN AND OR PELVIS COMPARISON: CT abdomen pelvis 10/25/2020 . FINDINGS: Interpretation of outside nonc ontrast bilateral renal ultrasound with color Doppler dated 08/27/2021. Right kidney: 9.52 cm Cortical thickness: Normal. Parenchymal echogenicity: Normal. Collecting system: No hydronephrosis Masses: In the mid right kidney, there i s a 1.5 cm avascular hypoechoic lesion. This is stable in comparison to outside CT abdomen pelvis 10/25/2020. Left kidney: 8.40 cm Cortical thickness: Normal. Parenchymal echogenicity: Normal. Collecting system: No hydronephrosis. Masses: None detected. IMPRESSION: Stable appearance of the 1.5 cm avascula r hypoechoic lesion in the mid right kidney. Findings likely represent a renal cyst w ith or without hemorraghic/proteinaceous components with a small cystic renal lesion considered les s likely. Mu DONOHUE US PROCEDURES Interpretation of Outside MR Spine (12/07/2021 12:49 [...] change since 07/25/2015. Mu DONOHUE MRI PROCEDURES Interpretation of Outside MR Spine (12/07/2021 12:48 PM CDT) Anatomical Region Laterality Modality Neuroradiology RST LOS, Neuroradiology ARZ LOS, N/A Magnetic Resonance Neuroradiology FLA LOS, Spine, Other Specimen (Source) Anatomical Collection Method Collection Time Re ceived Time Location / / Volume Laterality 12/07/2021 12:56 PM CDT Impressions 12/07/2021 1:09 PM CDT 1. Apparently new nonspecific punctate focus of white matter signal abnormality in the cord at C2-3. 2. Otherwise stable examination since . Narrative 12/07/2021 1:09 PM CDT EXAM: ??INTERPRETATION OF OUTSIDE MR SPINE FINDINGS: ??MRI cervical spine without g adolinium 05/03/2021. Indication neck and back pain. Comparison 07/10/2017. The foramen magnum again appears patent. There is an equivocal new nonspecific punctate focus of T2 hyperintensity in the cervical cord at C 2-3 (se 13/im 7). The cord otherwise has normal signal characteristics. C2-3: A tiny central protrusion is again present. The neural foramina are widely patent. C3-4: Minimal disc bulge/osteophyte comp patria. The left neural foramen is widely patent. Moderate right facet hypertrophy contributes to m ild to moderate right foraminal narrowing. C4-5: Moderate disc bulge/osteophyte com plex minimally narrows the spinal canal. Mild bilateral foraminal narrowing. C5-6: Moderate chronic spondylosis. Mild focal spinal canal narrowing. Equivocal right ventral cord flattening. Mild right foraminal narrowi ng. C6-7: Previous ACDF. The neural foramina and spinal canal remain widely patent. C7-T1: The disc appears intact. Mild fac et hypertrophy. Patent neural foramina. The vertebral body hemangioma is again demonstrated in the T1 vertebral body. Procedure Note Noe Henley M.D. - 12/07/2021Format ting of this note might be different from the original. EXAM: INTERPRETATION OF OUTSIDE MR SPINE FINDINGS: MRI cervical spine without christofer olinium 05/03/2021. Indication neck and back pain. Comparison 07/10/2017. The foramen magnum again appears patent. There is an equivocal new nonspecific punctate focus of T2 hyperintensity in the cervical cord at C 2-3 (se 13/im 7). The cord otherwise has normal signal characteristics. C2-3: A tiny central protrusion is again present. The neural foramina are widely patent. C3-4: Minimal disc bulge/osteophyte comp patria. The left neural foramen is widely patent. Moderate right facet hypertrophy contributes to m ild to moderate right foraminal narrowing. C4-5: Moderate disc bulge/osteophyte com plex minimally narrows the spinal canal. Mild bilateral foraminal narrowing. C5-6: Moderate chronic spondylosis. Mild focal spinal canal narrowing. Equivocal right ventral cord flattening. Mild right foraminal narrowi ng. C6-7: Previous ACDF. The neural foramina and spinal canal remain widely patent. C7-T1: The disc appears intact. Mild fac et hypertrophy. Patent neural foramina. The vertebral body hemangioma is again demonstrated in the T1 vertebral body. IMPRESSION: 1. Apparently new nonspecific punctate f ocus of white matter signal abnormality in the cord at C2-3. 2. Otherwise stable examination since . Mu DONOHUE MRI PROCEDURES documented in this encounter Visit Diagnoses Diagnosis Mass Axilla Left - Primary Pain Back Thoracic Fatigue Primary Osteoarthritis Cervical Spine Cyst Renal Abnormal Magnetic Resonance Imaging Mass Axilla Left Pain Back Thoracic Fatigue Primary Osteoarthritis Cervical Spine Mass Axilla Left Pain Back Thoracic Fatigue Primary Osteoarthritis Cervical Spine Mass Axilla Left Pain Back Thoracic Fatigue Primary Osteoarthritis Cervical Spine Cyst Renal documented in this encounter
--- OUTSIDE RECORDS SUMMARY | 2022-04-23 15:43 | XMS_ITS | Encounter Summary ---
:1970 Author Organization [facility] Address [address] [place] [address] Care Team Providers Name Role Phone Unavailable Primary Care Provider Unavailable Reason for Visit Reason Comments Fibromyalgia Outpatient (Routine) - Closed Specialty Diagnoses / Procedures Referred By Contact Refer red To Contact Integrative Medicine Diagnoses Fibromyalgia [facility]., [facility] [address] [place] [phone] Referral ID Status Reason Start Date Expiration Date Visits Requ ested Visits Authorized [id number] Closed 11/30/2021 11/30/2022 1 1 Encounter Details Date Type Department Care Team Description 12/18/2021 Education Integrative Medicine and Nakia Carrillo M.D., M.S. [address] [place] [phone] [facility] in [facility] Manuel Finch, REarlNEarl [place] [address] [place] [phone] Social History Tobacco Use Types Packs/Day Years [...] or relatives? How often do you attend worship or hindu More than 4 time s per year 11/30/2021 services? Do you belong to any clubs or organizations Yes 11/30/2021 such as worship groups, unions, fraternal or athletic groups, or [...] place to sleep or slept in a [place] (including now)? Education Answer Date Recorded What is the highest level of school Master's degree (e.g., M A, MS, 08/08/2019 you have completed or the highest Anika, MEd, INVESTIGATOR INTERNAL AFFAIRS, SINDY) degree you have received? Sex Assigned at Date Recorded Female 03/04/2018 7:21 PM CDT documented as of this encounter Progress Notes Manuel Finch, R.N. - 12/18/2021 11:30 AM CDT RN met with patient for education, questions, and any additional concerns following Fibromyalgia [facility] Fatigue [facility] MD evaluation. Content addressed: FSMS description, Scheduling questions , Location of class questions and Questions post provider visit Materials given: Managing your Fibromyalgia ([id number]) and Fibromyalgia folder including Fibromyalgia and Chronic Fatigue Suggested Resources, Vitamin D and Chronic Pain, Self-Management Tools, Time Management Worksheets (YP3104-31 and VF1540-02), Finding Reliable Health Information on the Internet ([id number]), Eat Well: Use the Plate Method ([id number]), How to get the Healthy sleep you need ([id number]), Managing Your Time for a Balanced Life ([id number]), suggested resources and business card, Gentle Yoga ([id number]), Exercise: Getting Started and Staying with it ([id number]), It's Your Life... Take Charge (DT0537-82), Strength Training for Adults ([id number]), Stretches and Exercise Guidelines to Help with Chronic Pain or Fatigue ([id number]), Techniques to Help You Save Energy ([id number]), Using Relaxation Skills to Relieve Your Symptoms([id number]) For additional educational material please cut and paste to your browser search, the following the link below to be directed to digital education videos related to Fibromyalgia, Chronic Fatigue, and Central Sensitization provided by [facility]: [email or web address] All questions and concerns were addressed. Patient was given the phone number to the Fibromyalgia and Chronic Fatigue Clinic for any additional questions. documented in this encounter Plan of Treatment Not on filedocumented as of this encounter Visit Diagnoses Not on filedocumented in this encounter Additional Health Concerns Assessment Noted Time PHQ-9 Depression Total Score: 5 12/16/2021 12:24 PM CD T documented as of this encounter
--- OUTSIDE RECORDS SUMMARY | 2022-04-23 15:43 | XMS_ITS | Encounter Summary ---
:1970 Author Organization [facility] Address [address] [place] [address] Care Team Providers Name Role Phone Unavailable Primary Care Provider Unavailable Encounter Details Date Type Department Care Team Description 12/10/2021 Orders Only Department of Vascular Patty Kong D.O. Medicine in [place], [facility] [address] [place], [place] [address] [facility] [phone] [place] [phone] Social History Tobacco Use Types Packs/Day Years [...] or relatives? How often do you attend islam or oriental orthodox More than 4 time s per year 11/30/2021 services? Do you belong to any clubs or organizations Yes 11/30/2021 such as islam groups, unions, fraternal or athletic groups, or [...] minutes do you engage in exercise at is 40 min 11/30/2021 level? Stress Answer [...] place to sleep or slept in a nursing home (including now)? Education Answer Date Recorded What is the highest level of school Master's degree (e.g., M A, MS, 08/08/2019 you have completed or the highest Anika, MEd, FOREIGN TRADE TEACHER, SINDY) degree you have received? Sex Assigned at Date Recorded Female 03/04/2018 7:21 PM CDT documented as of this encounter Plan of Treatment Not on filedocumented as of this encounter Visit Diagnoses Not on filedocumented in this encounter
--- OUTSIDE RECORDS SUMMARY | 2022-04-23 15:43 | XMS_ITS | Encounter Summary ---
:1970 Author Organization [facility] Address [address] [place] [address] Care Team Providers Name Role Phone Unavailable Primary Care Provider Unavailable Encounter Details Date Type Department Care Team Description 12/07/2021 Ancillary Department of Saadiq, Rayya Mass Axilla L eft; Procedure Radiology in A, D.O. Pain Back Thoracic; [place], [address] [place] [address] Fatigue; [place], [place] Primary Osteoarthritis Cervi roberto Spine; [address] [place] [phone] Cyst Renal [place], [place] [phone] (Work) Social History Tobacco Use Types Packs/Day [...] or relatives? How often do you attend yazidi or sabianism More than 4 time s per year 11/30/2021 services? Do you belong to any clubs or organizations Yes 11/30/2021 such as yazidi groups, unions, fraternal or athletic groups, or [...] place to sleep or slept in a assisted (including now)? Education Answer Date Recorded What is the highest level of school Master's degree (e.g., M Harris, MS, 08/08/2019 you have completed or the highest Anika, MEd, CRAYON MOLDING MACHINE OPERATOR, SINDY) degree you have received? Sex Assigned at Date Recorded Female 03/04/2018 7:21 PM CDT documented as of this encounter Plan of Treatment Not on filedocumented as of this encounter Procedures Procedure Name Priority Date/Time Associated Diagnosis Comme nts INTERPRETATION OF RAD - Routine 12/07/2021 Mass Axilla Le ft Results for OUTSIDE US ABDOMEN (most inpatients 12:53 PM CDT Pain Back Th oracic this procedure AND OR PELVIS and all Fatigue are in the outpatients) Primary results Osteoarthritis section. Cervical Spine Cyst Renal documented in this encounter Results Interpretation of Outside US [...] les s likely. Mu DONOHUE US PROCEDURES documented in this encounter Visit Diagnoses Diagnosis Mass Axilla Left Pain Back Thoracic [place] Primary Osteoarthritis Cervical Spine Cyst Renal documented in this encounter
--- OUTSIDE RECORDS SUMMARY | 2022-04-23 15:43 | XMS_ITS | Encounter Summary ---
:1970 Author Organization [facility] Address [address] [place] [address] Care Team Providers Name Role Phone Unavailable Primary Care Provider Unavailable Encounter Details Date Type Department Care Team Description 02/01/2022 Clinical Communication Integrative Medicine Yung Botello and Health in E, R.N. [place], [place] [address] [facility] [address] [place] [phone] Social History Tobacco Use Types Packs/Day Years [...] or relatives? How often do you attend zoroastrian or catholic More than 4 time s per year 11/30/2021 services? Do you belong to any clubs or organizations Yes 11/30/2021 such as zoroastrian groups, unions, fraternal or athletic groups, or [...] have completed or the highest Anika, MEd, ICING MIXER, SINDY) degree you have received? Sex Assigned at Date Recorded Female 03/04/2018 7:21 PM CDT documented as of this encounter Miscellaneous Notes Telephone Encounter - Yung Botello, R.N. - 02/01/2022 9:39 AM CDT SUBJECTIVE CHIEF COMPLAINT / REASON FOR CALL No chief complaint on file. Information Discussed Patient contacted to discuss Fibromyalgia Follow up program to see if she would be interested in participating. PLAN Disposition/Recommendation: Patient will think about it and plan to contact RN back this afternoon. Information/Education: patient/caller able to teach back Caller agreeable to plan of care: yes The following references were used: nursing clinical judgement documented in this encounter Plan of Treatment Not on filedocumented as of this encounter Visit Diagnoses Not on filedocumented in this encounter Additional Health Concerns Assessment Noted Time PHQ-9 Depression Total Score: 5 12/16/2021 12:24 PM CD T documented as of this encounter
--- OUTSIDE RECORDS SUMMARY | 2022-04-23 15:43 | XMS_ITS | Encounter Summary ---
:1970 Author Organization [facility] Address [address] [place] [address] Care Team Providers Name Role Phone Unavailable Primary Care Provider Unavailable Encounter Details Date Type Department Care Team Description 03/14/2022 Ancillary Department of Mu Kong Abnormal Find ings On Procedure Radiology in A, D.O. Diagnostic Imaging Of [address] Other Parts Of [place], [place] Musculoskeletal System [address] [place] [phone] [place], [place] [phone] (Work) Social History Tobacco Use Types Packs/Day [...] or relatives? How often do you attend buddhist or anabaptist More than 4 time s per year 11/30/2021 services? Do you belong to any clubs or organizations Yes 11/30/2021 such as buddhist groups, unions, fraternal or athletic groups, or [...] have completed or the highest Anika, MEd, PHYSICIAN ALLERGIST IMMUNOLOGIST, SINDY) degree you have received? Sex Assigned [...] in the outpatients) Musculoskeletal results System section. documented in this encounter Results Interpretation of Outside MR Head (03/14/2022 [...] intracranial abnormality. Nothing for demyelinating disease. Mu DONOHUE MRI PROCEDURES documented in this encounter Visit Diagnoses Diagnosis Abnormal Findings On Diagnostic Imaging Of Other Parts Of Musculoskeletal System documented in this encounter Additional Health Concerns Assessment Noted Time PHQ-9 Depression Total Score: 5 12/16/2021 12:24 PM CD T documented as of this encounter
--- OUTSIDE RECORDS SUMMARY | 2022-04-23 15:43 | XMS_ITS | Encounter Summary ---
:1970 Author Organization [facility] Address [address] [place] [address] Care Team Providers Name Role Phone Unavailable Primary Care Provider Unavailable Encounter Details Date Type Department Care Team Description 12/07/2021 Ancillary Department of Saadiq, Rayya Mass Axilla L eft; Procedure Radiology in A, D.O. Pain Back Thoracic; [place] [address] [address] [facility]; [place], [place] Primary Osteoarthritis Cervi roberto Spine [address] [facility] [address] [place], [place] [phone] (Work) Social History Tobacco Use Types Packs/Day [...] or relatives? How often do you attend religious or sabianist More than 4 time s per year 11/30/2021 services? Do you belong to any clubs or organizations Yes 11/30/2021 such as religious groups, unions, fraternal or athletic groups, or [...] have completed or the highest Anika, MEd, PIPE STEM REPAIRER, SINDY) degree you have received? Sex Assigned at Date Recorded Female 03/04/2018 7:21 PM CDT documented as of this encounter Plan of Treatment Not on filedocumented as of this encounter Procedures Procedure Name Priority Date/Time Associated Diagnosis Comme nts INTERPRETATION OF RAD - Routine 12/07/2021 Mass Axilla Le ft Results for OUTSIDE MR SPINE (most inpatients 12:48 PM CDT Pain Back Thor acic this procedure and all Fatigue are in the outpatients) Primary results Osteoarthritis section. Cervical Spine documented in this encounter Results Interpretation of Outside MR Spine (12/07/2021 12:48 [...]
--- OUTSIDE RECORDS SUMMARY | 2022-04-23 15:43 | XMS_ITS | Encounter Summary ---
:1970 Author Organization [facility] Address [address] [place] [address] Care Team Providers Name Role Phone Unavailable Primary Care Provider Unavailable Reason for Visit Reason Comments Fibromyalgia Outpatient (Routine) - Closed Specialty Diagnoses / Procedures Referred By Contact Refer red To Contact Integrative Medicine Diagnoses Fibromyalgia Nakia Carrillo M.D., [facility] [address] [place] [phone] Referral ID Status Reason Start Date Expiration Date Visits Requ ested Visits Authorized [id number] Closed 11/30/2021 11/30/2022 1 1 Encounter Details Date Type Department Care Team Description 12/18/2021 Nurse Only Integrative Medicine and Nakia Carrillo M.D., M.S. [address] [place] [phone] Fibromyalgia Health in [place], Manuel Finch, REarlN. [place] [address] [place] [phone] Social History Tobacco Use Types Packs/Day [...] or relatives? How often do you attend jew or scientology More than 4 time s per year 11/30/2021 services? Do you belong to any clubs or organizations Yes 11/30/2021 such as jew groups, unions, fraternal or athletic groups, or [...] place to sleep or slept in a group home (including now)? Education Answer Date Recorded What is the highest level of school Master's degree (e.g., M A, MS, 08/08/2019 you have completed or the highest Anika, MEd, CAD APPLICATION SUPPORT SPECIALIST, SINDY) degree you have received? Sex Assigned at Date Recorded Female 03/04/2018 7:21 PM CDT documented as of this encounter Progress Notes Manuel Finch, REarlN. - 12/18/2021 9:00 AM CDT SUBJECTIVE CHIEF COMPLAINT / REASON FOR VISIT Ms. Booker is a 51 y.o. female who is alone and who presents with chronic pain, widespread musculoskeletal pain, profound fatigue, unrefreshing sleep and sensory sensitivities. This note is in collaboration with Lamine Salvador M.D. . HISTORY OF PRESENT ILLNESS Patient reports a gradual onset of pain and fatigue. Associated factors related to onset of symptomsmay include surgery. Patient indicates that her pain began in high school with back pain related to lordosis. She was in gymnastics and has hereditary spine issues and she had a fusion at that time. Reports 20 good years after the first fusion. And since then has had additional fusions lumbar and cervical. She notes afterage 38 she began to have worsening pain in her shoulders, neck and back. At times she had pain in other areas but intermittently. Now with daily pain and experiencing more difficulty managing and spending more time daily trying to assess and modify her activities to accommodate or decrease the pain. Notes having chronic sinus issues for the past 5 years as well. Most recent surgery, decompression posterior lumbar spine with fusion, in 08/2019. She then notes she had many COVID symptoms in the summer and was told by a provider that she had COVID even though her swab returned negative. She hadher COVID booster vaccination in June of 2021 which was [employer] and developed a lump under her armpit that initially was thought to be related to the vaccination but she has now been told that is probably not the case. Increasing pain since summer but noted profound fatigue for the past 6 months. She has pain in her hands, shoulders, neck, back, feet and describes an electrical jolt from her hip to her big toe intermittently. In addition to the pain and fatigue she began experiencing GI is sues and recently diagnosed with costochondritis. She no longer gets refreshing sleep and she is unable to do many activities she previously enjoyed. 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 Fridays she comes home and is in her pajamas by 5 pm and rests, limits activities on the weekend. She understands her activities will be modified due to her spinal issues. Patient reports she has always been a high energy/activity person and she is trying to adjust to this as a new identity. She is used to doing CrossFit and other high impact activities. She will now need to do low impact activity for preservation of her mobility and pain reduction. PAIN Patient has had complaints of pain in the past 7 days. Patient reports pain in these areas: left shoulder, right jaw, left hip/buttock, lower leg, left, right hip/buttock, lower leg, right , neck, upper back, lower back, chest and abdomen. See above for details. Pain has been present on both sides of the body, above and below the waist, in multiple muscle groups and in multiple joints without redness or swelling over the past 13 years. The pain is described asconstant with variable intensity with qualities of sharpness, dullness, aching, generalized flu-likepain, stiffness, tenderness, migratory and tightness, zingers, electrical jolts. Patient describes her pain level on a scale of 0-10 (with 10 being the worst pain imaginable and 0 being no pain) as a 7. FATIGUE Patient reports presence of fatigue. See above for details. Patient describes fatigue as present for6 months or more, results in substantial reduction or impairment in the ability to engage in pre-illness levels of occupational, educational, social or personal activities, it is not substantially relieved by rest, is of new onset (not lifelong), includes orthostatic intolerance, does not include cognitive impairment and includes post exertional malaise. Patient rates today's fatigue level on a scaleof 0-10 (with 10 being the worst fatigue imaginable and 0 being no fatigue) as a 7. Patient reports the degree of fatigue in the past week as moderate. Pain and/or fatigue symptoms are aggravated by overexertion, physical activity, repetitive motion, stress, weather changes, poor sleep, prolonged sitting, prolonged standing and inactivity. OTHER FIBROMYALGIA OR CHRONIC FATIGUE ASSOCIATED SYMPTOMS The patient reports additional symptoms frequently experienced in the past 6 months: chest discomfort, depressed mood, difficulty falling asleep and staying asleep, headache, heartburn, nausea, numbness/tingling of extremities, palpitations, TMJ symptoms, cold intolerance, decreased sex drive, dry eyes, hearing difficulties, heat intolerance, lightheadedness, ringing in the ears and sense of imbalance. SLEEP Patient has difficulties with sleep and reports unrefreshing sleep (reports severity as moderate in the past week) , snoring, difficulty falling asleep and difficulty staying asleep. Patient reports averaging 7 hours of sleep nightly and denies napping during the day. Previously up until 11 pm and nowis ready for bed by 9:30. Falls asleep initially but when awakens in the night it is difficult returning to sleep. Patient has had a sleep disorder consult in the past and she reports it showed minimal sleep apnea and she has just utilized behavioral interventions to treat. Patient reports the following criteria for restless legs syndrome: none of the four essential restless legs syndrome criteria. MEMORY Patient reports difficulty with memory or concentration. Memory issues include difficulty with word find. Patient reports severity of cognitive symptoms of the past 7 days as mild MOOD Patient reports current stressors: job, pain impeding her ability to do the things she needs and wants to do. Patient endorses symptoms or concerns with mood. Patient endorses symptoms of: anxiety, sadness, irritability and frustration. Patient relates mood issues to the impact her medical issues have impactedand will continue to impact her life. Patient is currently diagnosed with: no diagnoses at this time. Patient is currently being treated for: no diagnoses at this time. Patient is on the following moodmedications: none. Current psychiatric follow-up includes: none. The patient has the following suicide risk factors: white and chronic pain. The patient has the following suicide protective factors: strong treatment alliance with current health care team, ability to engage in all aspects of treatment, adherence to treatment, strong interpersonal skills, high motivation to resolve current problems, insight and management of stressors, supportive spouse and spiritually active. The suicide inquiry reveals no suicidal ideation. Current/past history abuse issues: denies current abuse issues and no reported past history Do you feel safe in your home/life situation currently? 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 EXERCISE Patient has a current exercise routine, which includes walks daily, light wt. lifting and riding bike. Low impact activities.. MEDICATION HISTORY Patient has been treated with opioids for chronic pain. Patient has taken prescription NSAIDS or non-opioid pain medications. Patient has taken OTC pain medication. Patient has previously used the following medications: Gabapentin or Neurontin, Duloxetine Hydrochloride or Cymbalta, Cyclobenzaprine or Flexeril, Prednisone, Tylenol, Vitamin D and lidocain patches, cbd oil, briefly utilized medical marijuana. SOCIAL HISTORY Marital Status: Recent history of falls (past 3 months): none Caffeine use: none. The patient has family members with similar symptoms as the patient but haven't been diagnosed with fibromyalgia or chronic fatigue syndrome. sister. OBJECTIVE PHYSICAL EXAM Refer to [facility] for mood assessment. The patient has the following 2016 ACR Fibromyalgia criteria: Widespread Pain Index (0-19): 11 Number of Pain Regions (0-5): 4 Severity score (0-12): 7 Tender Points: 17/18 standard tender points are positive: right occiput, left occiput, right low cervical, left low cervical, right trapezius, left trapezius, right scapular, left scapular, right gluteal, left gluteal, right greater trochanter, left greater trochanter, right second rib, left second rib, right lateral epicondyle, left lateral epicondyle, left medial fat pad proximal to joint line of knee Symptoms have been present at a similar level for at least 3 months. The patient reports the following Chronic Fatigue criteria: substantial decrease in function, persisting more than or equal to 6 months, post-exertional malaise, unrefreshing sleep and orthostatic intolerance ASSESSMENT / PLAN For diagnosis and treatment plan refer to provider's note. NURSING DIAGNOSIS:Chronic Pain and Fatigue documented in this encounter Plan of Treatment Not on filedocumented as of this encounter Visit Diagnoses Diagnosis Fibromyalgia documented in this encounter Additional Health Concerns Assessment Noted Time PHQ-9 Depression Total Score: 5 12/16/2021 12:24 PM CD T documented as of this encounter
--- OUTSIDE RECORDS SUMMARY | 2022-04-23 15:43 | XMS_ITS | Encounter Summary ---
:1970 Author Organization [facility] Address [address] [place] [id number] Care Team Providers Name Role Phone Unavailable Primary Care Provider Unavailable Reason for Visit Behavioral Health (Routine) - Closed Specialty Diagnoses / Procedures Referred By Contact Refer red To Contact Diagnoses Fibromyalgia Lamine Salvador M.D. [facility] Procedures OT Evaluate and treat - Mental health [address] [place] [address] [phone] Referral ID Status Reason Start Date Expiration Date Visits Requ ested Visits Authorized [id number] Closed 12/18/2021 12/18/2022 1 1 Encounter Details Date Type Department Care Team Description 12/19/2021 Comprehensive Visit Department of Physical Sunds Lamine falcon M.D. [address] [place] [phone] Decline Functional Status (Primary Dx); Medicine and Domonique Park M.S., O.T. 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 Sex Assigned at Date Recorded Female 03/04/2018 7:21 PM CDT documented as of this encounter Consult Notes Domonique Park, M.S., O.T. - 12/19/2021 3:30 PM CDT Occupational Therapy Biofeedback Outpatient Evaluation/Treatment SUBJECTIVE Patient's Name: Josie Booker Referring Provider: Lamine Salvador M.D. Rehab Diagnosis: 1. Decline Functional Status 2. Fibromyalgia Reason for Referral: Occupational therapy evaluation and treatment- Biofeedback assisted relaxation Payor: [employer] / Plan: [employer] [place] / Product Type: PPO / PERTINENT MEDICAL / SURGICAL HISTORY: Patient Active Problem List Diagnosis ??? Preoperative Exam ??? Stenosis Spinal ??? Fatigue ??? Screening Osteoporosis ??? Pain Back Thoracic ??? Fibromyalgia ??? Mass Axilla Left ??? Gastroesophageal Reflux Disease ??? Primary Osteoarthritis Cervical Spine ??? Cyst Renal Past Surgical History: Procedure Laterality Date ??? AUGMENTATION BREAST 2018 1999 implants and 2010 replacement implants, 2019 implant reduction ??? CERVICAL FUSION 2009 2010 C6/C7 fusion ??? CERVICAL FUSION 2009 C6-C7 fusion ??? DECOMPRESSION POSTERIOR LUMBAR AND FUSION N/A 08/12/2019 Procedure: Posterior lumbar decompression, Extend current fusion up to L3-4, proceed as indicated.;Surgeon: Steve Jesus M.D.; Location: [facility] ??? LUMBAR FUSION 1984 1984 (L5/S1 fusion) and ??? SHOULDER ARTHROSCOPY 10/2017 ??? TONSILLECTOMY 1978 ??? UMBILICAL HERNIA REPAIR 2020 mesh Please review the electronic medical record for full history of present illness. Josie Booker is a 51 y.o. female who presents to outpatient occupational therapy for evaluation. Her symptoms consist of fatigue, widespread body pain, and fibromyalgia. Client reports no previous experience with biofeedback. Client reports some previous instruction in relaxation techniques, including breathing exercises. 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 Due to symptoms, client reports she is often fatigued following work and is unable to engage in many daily activities in the evening and on the weekend. Client enjoys photography, however has been limited and would like to be able to engage in this meaningful occupation. OBJECTIVE Biofeedback: Biofeedback Participation: Patient seen individually for biofeedback session Precautions: None Initial/Resting - Right Upper Trapezius (??V): 0.67 Initial/Resting - Left Upper Trapezius (??V): 0.0 (Unable to accurately measure due to technical difficulties) Initial/Resting - Respiration Rate (bpm): 10.67 Tense/Release (Initial) - Right Upper Trapezius (??V) : Good contraction, good release Tense/Release (Initial) - Left Upper Trapezius (??V): Good contraction, good release Co-Contractions (Initial) - Right Upper Trapezius (??V): Minimum (2-5??V) Co-Contractions (Initial) - Left Upper Trapezius (??V): None (<2??V) Response to Biofeedback - Right Upper Trapezius: Less than 1 Response to Biofeedback - Left Upper Trapezius: Less than 1 Response to Biofeedback - Respiration Rate: 6-7 TREATMENT Treatment today consisted of: ADL Addressed: Neuromuscular Re-education: Respiratory pattern and shoulder muscle tensions were measured using an assessment protocol. Client was noted to hold no significant tension in bilateral shoulders during assessment protocol and throughout conversation. She was somewhat surprised to see low tensions, but overall reported feeling fairly relaxed at time of session. Client recognizes she can hold significant tension in response to her symptoms. Client's initial respiratory pattern was slower than typical at about 10 breaths per minute with adequate abdominal movement, which may reflect some previous experience with breathing techniques. Client was educated in the sympathetic and parasympathetic responses including how muscles tend toreflexively tense when pain or other stress is present. Client was educated to increase awareness ofgeneral muscle tensions and to begin focusing on relaxing muscles throughout the day. Client was also instructed in the relaxation technique of diaphragmatic breathing as a means to activate the parasympathetic response while providing verbal and biofeedback cues. Time was allowed for client to practice these relaxation skills. During conversation, respiratory rate noted to increase to 12-18 breaths per minute. Following practice and focus on breathing, client easily able to slow down breathing to 6 breaths per minute with verbal and biofeedback cues. Client indicated this pace felt comfortable. She describes herself as a perfectionist which she reports was causing an increase in anxiety when seeing her breath on the screen and experienced increased success when looking away from screen. Though, later in session able to let go of some of the perfectionist tendencies and allow for learning through biofeedback cues. She demonstrated ability to relax and maintain a good resting level in bilateral shoulders. Client then participated in a simple unilateral tabletop activity. Client was noted to usea lower amount of tension in bilateral shoulders during the activity. Client demonstrated no significant co-contraction in either shoulder when working with the other during activity. Client was fairlysuccessful with maintaining diaphragmatic breathing during the activity and appeared to think about it often, but cues were helpful. The role that intensity and speed of activity plays in ability to control tensions and breathing was also discussed and encouragement was provided to perform tasks with moderation in mind. Encouraged client to consider making these changes for health reasons rather thanbecause of her symptoms. Client was encouraged to remain active despite symptoms but consider modifying her typical approach to activities incorporating more relaxation as able. Client was then introduced to potential home training devices. Further explored clients daily activity plan and helped problem solve concerns client had. Contact monitoring: PPE used during therapy: Therapist was wearing the following PPE throughout entire session: surgicalmask and eye protection Patient was wearing a mask during therapy session: yes Assessment Clinical Impression: With therapist cues and biofeedback client was able to demonstrate very good use of relaxation skills while at rest and during activities. Client appears to be very interested in pursuing home trainingdevices. Client appears to have good understanding of relaxation techniques taught this session and is highly motivated to continue working on them independently. Client had no further questions. Rehab Potential: Ms. Booker has good potential to achieve established occupational therapy goals within the time frame outlined below, provided she actively participates in her occupational therapy treatment plan and home program. Occupational Profile and History review: Expanded Performance Deficits: 3 - 5 performance deficits Evaluation Complexity: Moderate Functional Goals and Timeframe's: OT Goal #1: Client will verbalize and demonstrate understanding of the use of muscle relaxation techniques in activities of daily living as instructed in by dismissal from Occupational Therapy biofeedback. OT Goal #1 Status: Achieved OT Goal #2: Client will verbalize and demonstrate understanding of the use of diaphragmatic breathing in activities of daily living as instructed by dismissal from Occupational Therapy biofeedback. OT Goal #2 Status: Achieved OT Goal #3: Client will develop a plan for continued use of muscle relaxation techniques and diaphragmatic breathing in activities of daily living by dismissal from Occupational Therapy biofeedback. OT Goal #3 Status: Achieved OT Goal #4: Client will verbalize understanding of home biofeedback system options as indicated by dismissal from Occupational Therapy biofeedback. OT Goal #4 Status: Achieved Plan Ms. Booker was educated regarding evaluative findings, diagnosis, prognosis, potential risks and benefits of rehabilitation interventions. A collaborative effort was used to establish goals and plan of care. She was informed of her right to make decisions regarding her care, including refusal of examination or treatment or selection of therapy services from another provider if desired. The treatmentplan may be progressed or modified based upon her response to treatment. Treatment Plan: Start of Plan of Care: 12/19/2021 Number of Visits: One time visit OT Duration: Plan: Discontinue OT OT Plan Comments: Skilled OT goals met. No further biofeedback necessary. Treatment interventions may include: Treatment Interventions: Self-care/home management, Neuromuscular re-education Occupational Therapy Attestation Statement: Patient agrees with the plan of care and goals. Time Spent with Patient Evaluations OT Eval - Mod Complexity: 10 min Therapeutic Interventions Home Management Training (min): 50 min Neuromuscular Re-Education (min): 30 min Time Tracking Total Timed Units (min): 80 min Total Treatment Time (min): 90 min Domonique Park, OTR/L documented in this encounter Plan of Treatment Not on filedocumented as of this encounter Visit Diagnoses Diagnosis Decline Functional Status - Primary Fibromyalgia documented in this encounter Additional Health Concerns Assessment Noted Time PHQ-9 Depression Total Score: 5 12/16/2021 12:24 PM CD T documented as of this encounter
--- OUTSIDE RECORDS SUMMARY | 2022-04-23 15:43 | XMS_ITS | Encounter Summary ---
:1970 Author Organization [facility] Address [address] [place] [address] Care Team Providers Name Role Phone Unavailable Primary Care Provider Unavailable Reason for Visit Reason Comments Review OSM Encounter Details Date Type Department Care Team Description 12/05/2021 Clinical Communication Division of General Farooq Kong, Review [facility] Internal Medicine in [place], [place] [address] [facility] [address] [place] [phone] Social History Tobacco Use Types Packs/Day Years [...] or relatives? How often do you attend confucianist or denominational More than 4 time s per year 11/30/2021 services? Do you belong to any clubs or organizations Yes 11/30/2021 such as confucianist groups, unions, fraternal or athletic groups, or [...] place to sleep or slept in a custodial (including now)? Education Answer Date Recorded What is the highest level of school Master's degree (e.g., M A, MS, 08/08/2019 you have completed or the highest Anika, MEd, PRINTING ROLLER HANDLER, SINDY) degree you have received? Sex Assigned at Date Recorded Female 03/04/2018 7:21 PM CDT documented as of this encounter Miscellaneous Notes Telephone Encounter - Mercy Combs - 12/05/2021 4:42 PM CDT Received [facility] from [facility] [employer]. This has been scanned into the Patient's Chart in [employer]. RTN Appt: 12/07 Dr. Kong documented in this encounter Plan of Treatment Not on filedocumented as of this encounter Visit Diagnoses Not on filedocumented in this encounter
--- OUTSIDE RECORDS SUMMARY | 2022-04-23 15:43 | XMS_ITS | Encounter Summary ---
:1970 Author Organization [facility] Address [address] [place] [address] Care Team Providers Name Role Phone Unavailable Primary Care Provider Unavailable Reason for Referral Behavioral Health (Routine) - Closed Specialty Diagnoses / Procedures Referred By Contact Refer red To Contact Diagnoses Fibromyalgia Lamine Salvador M.D. [facility] Procedures OT Evaluate and treat - Mental health [address] [place], [place] [id number] Referral ID Status Reason Start Date Expiration Date Visits Requ ested Visits Authorized [id number] Closed 12/18/2021 12/18/2022 1 1 Reason for Visit Outpatient (Routine) - Closed Specialty Diagnoses / Procedures Referred By Contact Refer red To Contact Integrative Medicine Diagnoses Fibromyalgia Nakia Carrillo M.D., [facility] [address] [place] [address] Referral ID Status Reason Start Date Expiration Date Visits Requ ested Visits Authorized [id number] Closed 11/30/2021 11/30/2022 1 1 Encounter Details Date Type Department Care Team Description 12/18/2021 Comprehensive Visit Integrative Medicine [place], Fibromyalgia and Health in Lamine Vines M.D. (Primary Dx) [place], [place] [address] [facility] [address] [place] [phone] Social History Tobacco Use Types Packs/Day Years [...] or relatives? How often do you attend holiness or quaker More than 4 time s per year 11/30/2021 services? Do you belong to any clubs or organizations Yes 11/30/2021 such as holiness groups, unions, fraternal or athletic groups, or [...] place to sleep or slept in a fdc (including now)? Education Answer Date Recorded What is the highest level of school Master's degree (e.g., M A, MS, 08/08/2019 you have completed or the highest Anika, MEd, YOGA TEACHER, SINDY) degree you have received? Sex Assigned at Date Recorded Female 03/04/2018 7:21 PM CDT documented as of this encounter Consult Lamine Gottlieb M.D. - 12/18/2021 10:00 AM CDT REFERRAL Nakia Carrillo M.D., M.* REASON FOR CONSULT Arthralgia, myalgia, fatigue, concern for central sensitization HISTORY OF PRESENT ILLNESS Ms. Josie Bianca Jhony is a 51 y.o. female who presents to the [facility] for evaluation of widespread musculoskeletal pain, fatigue and unrefreshing sleep. This note is incollaboration with Ms. Manuel Finch R.N. Please see the nurse note for additional intake history. 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 Pain was initially concentrated in the neck and low back but early in her 4th decade, started becoming more widespread, with interval worsening after turning 48 and also after experiencing COVID-19 like viral symptoms in the summer of 2019. 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 Ms. Booker reflects this overall timeframe was expectedly associated with increased stress, grief, decreased sleep and self cares with associated increased pain and muscle tension levels. Current pain is fairly diffuse, with intermittent whole body flu-like malaise. Especially over the last 6 months, fatigue has worsened however she is still maintaining her work as a teacher, but tending to use the evenings and weekends for recovery. There is unrefreshing sleep, post exertional malaise, however no significant brain fog or orthostasis. She has noted feeling off balance after bending over or head movements, including turning around. 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 We reviewed a number of symptoms including TMJ, fatigue and pain as per above, muscle spasms, irritable bowel symptoms, e xperiencing sharp ???zingers?? , sore throat and cardiac palpitations that are frequently seen in central sensitization. She has additionally noted environmental sensitivities including repetitive sounds and strong odors. She has tried both gabapentin and duloxetine previously, but recalls being on them a short time, several weeks without prohibitive side effects and has not been especially inclined toward medication management. Multiple nonpharmacologic therapies including respiratory care technician, physical therapy, injections, stretching of the CBD oil also been utilized with some degree of benefit, although she consistently reports daily pain levels on the 4-5 level. The following portions of the patient's history were reviewed and updated as appropriate: allergies,current medications, family history, medical history, social history, surgical history and problem list. PHYSICAL EXAM General: Alert woman in no acute distress. Eyes: extra-ocular movements intact. Anicteric. Mental: Linear thought process with full and appropriate affect. Lymph: No anterior or posterior cervical, supraclavicular adenopathy Musculoskeletal: Tender points per the RN examination . Extremities: No lower extremity clubbing, cyanosis or edema.. Neuro: Cranial nerves 2 through 12 grossly intact. Skin: Not jaundiced. No petechia or purpura noted. ASSESSMENT / PLAN #1 Fibromyalgia #2 Chronic fatigue FINDINGS: Widespread Pain Index (WPI): 06/22 Symptom Severity (SS): 02/12 Tender Points: Depression Score (PHQ-9): 12/28 Anxiety Score (MIMI-7): 11/22 The following criteria for fibromyalgia are present: widespread pain on both sides of the body (above and below the waist), present for at least 3 months and at least 11 out of 18 tender points 4/5 regions The following criteria for chronic fatigue syndrome are present: persisting more than or equal to 6 months, post-exertional malaise and unrefreshing sleep SUMMARY IMPRESSIONS AND RECOMMENDATIONS: 1. Patient meets both the 1990 and 2016 [employer] diagnostic criteria for fibromyalgia. She additionally has multiple features of chronic fatigue syndrome, however no brain fog or orthostasis, therefore she does not fully meet the 2015 [place] [employer] criteria for syndromic fatigue. 2. She will attend the 1 day Fibromyalgia and Chronic Fatigue Treatment program. 3. Pharmacotherapy reviewed, in particular a trial of one of the SNRIs as detailed below. 4. Given described muscle tension and spasms, recommended biofeedback assisted relaxation. 5. Offered a physical therapy session which she could elect to do with home providers. She will let us know. DISCUSSION: We had a detailed discussion about the biological concepts underlying central sensitization with regard to symptoms. Central sensitization syndrome is a central nervous system response to heightened stress that amplifies sensation markedly. This produces an augmentation of responsiveness of central neurons to input from unimodal and polymodal receptors, with altered sensory processing in the brain, and malfunctioning of antinociceptive mechanisms. Both top-down and bottom-up mechanisms augment pain and sensitivity to a variety of peripheral stimuli, including physical exertion. We also reviewed rehabilitative approaches for her symptoms, including lifestyle modifications that are a core component of these rehabilitative strategies. Studies have demonstrated that slowly progressive incremental physical reconditioning and cognitive behavioral retraining are most effective at im proving chronic fatigue. I advised Ms. Booker complete the Fibromyalgia and Chronic Fatigue Treatment Program, which is our 8 hour self-management program that focuses on cognitive behavioral approaches, stress management, sleep hygiene, balanced lifestyle, moderation, energy conservation and graded exercise. She agreed to proceed with the program. INTEGRATIVE MEDICINE Health is comprised of physical, emotional, mental, spiritual, and community aspects. Physical health refers to conventional medical evaluations. Emotional health refers to active stress on health through the sympathetic nervous system. Mind/body therapies may decrease the physical effects of stress. Spiritual health refers to that which gives life a sense of meaning and purpose. Wellness comes by working within each of these areas in an integrative manner in conjunction with exercise and nutrition. Paced breathing, such as in meditation, has been found to be helpful by some patients. Several mediation apps are available on [employer] and the [employer]. She should perform this 10- 15 minutes twice daily for a couple of months and then assess its utility. Utilizing calming visualizations,such as nature scenes, can enhance the effect of the paced-breathing exercises ([employer] search: meditation and nature). Mind/body therapies, such as yoga, israel chi, exercise, and biofeedback, can also decrease the physical effects of stress. 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 CBThas been found to reduce the pain response and increase gallegos matter of the brain in fibromyalgia. Important components of cognitive behavioral therapy are as follows * Education reassurance; * Focus on functional gains rather than fibromyalgia as a disease; * Realistic goal setting; * Lifelong self-management; * Pacing and increasing activities; * Managing sleep; * Addressing cognitive dysfunction: use of daily planners, to do lists, attention techniques; * Recognizing the role of stress in symptom development; * Counteracting maladaptive thinking; * Relapse and maintenance; * Improved communication with others; * Assertiveness training; and * Use of medications. Often the manifestations of central sensitization coexist with mood disorders such as depression andanxiety. When these conditions are present, they can amply some of the debilitating symptoms and complicate recovery. Therefore, we strongly encourage our patients to work with their local physicians when mood symptoms are present. Psychiatry referrals can be facilitated by local physicians if necessary. SLEEP Overnight oximetry was normal. Notably, during overnight oximetry there were episodes of tachycardia. Given the nonrestorative sleep, this is unlikely related to REM sleep, but instead, given the history of fragmented sleep, more likely represents sleep hyperarousal, an inappropriate increased sympathetic drive during sleep, and hypersensitivity to environmental stimuli. Recommend No More Sleepless Nights Workbook, by Braeden Thompson. Ultimately, retraining of nocturnal hypersensitivity is the goal, rather than trying to eliminate any environmental stimuli, which would may prove to be an impossible task. General sleep hygiene practices: ?? Use the bedroom only for sleep and sex, not for reading or watching TV. Avoid using electronic devices for at least 1 hour before bedtime and avoid having a mobile device (e.g., cell phone) in the bedroom. ?? Keep the room dark. May need to tape over/cover any visible LED lights. ?? Try to make the bedroom as cool as tolerated, because the body takes cold as a sign that it's night and therefore that it's time to sleep. The optimal room temperature for sleep is around 60-68 degrees. This can also be promoted by taking a bath before bedtime (even if warm), or wearing a cooling cap at bedtime. ?? Recommend bright light exposure for about 30 minutes at the patient's desired get up time everyday. Outdoor light is always adequate, but some alarm clocks will slowly increase ambient light to simulate sunrise. ?? Consider listening to white noise, such as a fan blowing. ?? Keep active during the day. Exercise and get some fresh air. ?? Stick to a routine of going to bed and getting up at the same time each day. ?? Limit daytime naps to no more than 1 hour each day. ?? Avoid caffeine late in the day. ?? If you eat late at night, keep it light. ?? Keep a healthy weight. Being overweight may cause tiredness during the day and may worsen sleep apnea. ?? Try to reduce stress in your life by changing the things that cause stress. ?? Keep a to do journal. Before you go to bed, write down all the things you are worrying about. Then write down what you can do tomorrow. Garrett the other things as things to do later in the week. This will help clear your mind of worry. ?? Arrange your medicine schedule with your provider so that you take any drugs that might make you sleepy in the evening and drugs that may interfere with sleep during the day. ?? Avoid daily use of sleep medicines. You may become dependent on them or build up your tolerance to them so that they no longer work as well. Most sleeping pills should not be used for more than 2 weeks in a row. Could consider taking melatonin, 3 mg, about 2-4 hours prior to desired bedtime every day. ?? Try not to focus on falling asleep. For example, don't keep checking the clock and worry about why you are not asleep yet. If you are awake for more than 30 minutes, leave the bed and do not go backto bed until you feel ready to sleep. ?? Meditation/Relaxation techniques : [email or web address]?id=22 ?? Consider looking into the [employer] online program for behavioral management of insomnia. It instructs in sleep hygiene, relaxation techniques, cognitive and stimulus control strategies to enhance sleep. She will also be invited to submit electronic sleep logs, and receive individualized feedback andsuggestions as to how to improve rest. ?? Consider Dr. Farhad Webb's 4-7-8 breathing technique for sleep (https://www.youtube.com/watch?v=lMvB7niv8rO). Insomnia unresponsive to the above may require referral to a sleep specialist. PHYSICAL AND OCCUPATIONAL THERAPY Many patients will benefit from a brief period of targeted physical therapy for 8-12 weeks to improve musculoskeletal symptoms. Additionally, occupational therapy can be helpful for relaxation, stress management, life skills, and energy conservation. Referrals can be facilitated locally by the primary care provider. MEDICATIONS There is no evidence that pure opioids, such as morphine or oxycodone have any benefit in fibromyalgia. In addition, opioid-induced hyperalgesia is a serious concern, in which pain is worsened by opioid use. Although Tramadol has moderate evidence for efficacy, adverse events, drug cross-reactions, and opioid-induced hyperalgesia argue against its consistent use. Modest improvement of fibromyalgia has been observed with drugs targeting a diverse range of molecular mechanisms. However, no single drug has offered substantial efficacy. The heterogeneity of this disorder and widely varied responses to medications suggests existence of patient subgroups. As a result, therapies for fibromyalgia need to recognize the impact of central and peripheral aspects of the pathophysiology utilizing both medications and nonpharmacologic approaches. From a medication perspective, FDA-approved medications for fibromyalgia include duloxetine, milnacipran, and pregabalin. Additional options (non-FDA approved) include gabapentin and the older tricyclic agents (amitriptyline, nortriptyline). Ideally it is best to start with a single medication and slowly titrate upwards to a therapeutic dose, attempting to minimize adverse effects. A combined medication approach can also be undertaken. The advantage of this approach is the use of two different medications with different mechanisms at lower doses to minimize side effects with potential additive benefit from an overall symptom standpoint. A reasonable approach to medication initiation and titration is listed below. The rate of titration should be based on medication tolerability, presence of adverse effects, and the patient's sensitivity towards medications. Following medication initiation, a patient must be reevaluated by their local provider for efficacy and side effects. FDA approved: Duloxetine (SNRI): Best for pain + mood symptoms. ?? Start at 20 mg daily, increase over several uflwa-hh-hiffpe to 60 mg ?? Maximum dose: 60 mg daily Milnacipran (SNRI): Best for pain + mood symptoms. ?? Start at 6.25-12.5 mg daily, increase over several davnj-qh-xgyoqv 25-50 mg ?? Maximum dose: 100 mg twice daily Pregabalin (Qjjqz-7-kznjz calcium channel ligand): Best for pain + sleep + paresthesia symptoms. ?? Start at 25 mg daily, increase over several qvfbg-rm-yodegb to 50-75 mg ?? Maximum dose: 225 mg twice daily Non-FDA approved: Gabapentin: Best for pain + sleep + paresthesia symptoms. ?? Start at 100-300 mg nightly, increase over several oxkzg-uc-fucakx to 600 mg ?? If efficacious, a morning or afternoon dose can be started with gradual uptitration ?? Maximum dose: 2400 mg total per day Amitriptyline or Nortriptyline: Best for pain + sleep + paresthesia symptoms. ?? Start at 10 mg nightly, and increase over several olpkf-jx-agtydx to 50 mg ?? Maximum dose: 75 mg daily COMBINED MEDICATION APPROACH A combination of low dose SNRI (Duloxetine 30 mg daily, or Milnacipran 12.5-25 mg daily) along with a low dose of pregabalin or gabapentin (pregabalin 50-75 mg or gabapentin 300 mg at night) could be considered. The advantage of this approach is use of two different medications with different mechanisms at lower doses to minimize side effects with potential additive benefit from an overall symptom standpoint. ALTERNATIVE MEDICATIONS Naltrexone, an orally semisynthetic opiate antagonist, is FDA-approved for treatment of heroin/alcohol addiction, but there have been observations that naltrexone in very low doses can also mitigate fatigue and stress in fibromyalgia and multiple sclerosis patients. It has been found to reduce inflammatory cytokines which are elevated in chronic fatigue syndrome. It has also been used and chronic constipation and irritable bowel syndrome. Low dose naltrexone has side few effects but in most patientshas been found to be tolerable. The proposed mechanisms of pain relief with low-dose naltrexone (LDN) are largely not understood, but may include: 1. LDN is thought to work as a partial opioid agonist. 2. LDN opioid receptor blockade causes compensatory release of endogenous opioids. 3. Antagonism of Toll-like receptor-4 on microglia, which produces a variety of inflammatory factorssuch as pro-inflammatory cytokines, substance-P, nitric oxide, and excitatory amino acids. 4. LDN may target astrocytes, NADPH oxidase-2, and opioid growth factor receptor. 5. LDN may lead to transient increases in met-enkephalin and beta-endorphins, which in turn may improve energy and quality of life. 6. LDN is noted to reduce/supress the inflammatory cytokines TNF-alpha, IL-1-beta, IL-2, IL-6, IL-15, and IL-17, which are known to promote nociception, allodynia, and hyperalgesia, and are related to microglial activation. ?? Naltrexone 4.5 mg daily dose; compounded from grinding 50mg tablets (NOT slow-release form) with Avicel, lactose (if lactose intolerance is not a problem), or sucrose fillers to prepare 4.5 mg capsules. Trial for two months. [Reduced Pro-Inflammatory Cytokines after Eight Weeks of Low-Dose Naltrexone for Fibromyalgia. L Shayna Ha; Biomedicines 2017, 5(2), 16;] [The use of low-dose naltrexone (LDN) as a novel anti-inflammatory treatment for chronic pain, by Gilbert Haney, Leland Saldivar, Lizz Harmon. Clin Rheumatol (2014) 33:451-459] [Low dose naltrexone: side effects and efficacy in gastrointestinal disorders. Deborah Corral, et al. Int J Pharm Compd. 2009-Nov;14(2):171-3.] Total visit time greater than 70 minutes with at least 50% spent in patient Education, care coordination and counseling. documented in this encounter Plan of Treatment Not on filedocumented as of this encounter Visit Diagnoses Diagnosis Fibromyalgia - Primary documented in this encounter Additional Health Concerns Assessment Noted Time PHQ-9 Depression Total Score: 5 12/16/2021 12:24 PM CD T documented as of this encounter
--- OUTSIDE RECORDS SUMMARY | 2022-04-23 15:44 | XMS_ITS | Encounter Summary ---
:1970 Author Organization [facility] Address [address] [place] [address] Care Team Providers Name Role Phone Unavailable Primary Care Provider Unavailable Reason for Referral Outpatient (Routine) - Closed Specialty Diagnoses / Procedures Referred By Contact Refer red To Contact Diagnoses Mass Axilla Left Fibromyalgia Pain Back Thoracic Pain Back Screening Osteoporosis Gastroesophageal Reflux Disease Fatigue Mu Kong D.O. [facility] Procedures ECG 12 Lead [address] [place] [address] Referral ID Status Reason Start Date Expiration Date Visits Requ ested Visits Authorized [id number] Closed 12/03/2021 12/03/2022 1 1 utpatient (Routine) - Closed Specialty Diagnoses / Procedures Referred By Contact Refer red To Contact Diagnoses Mass Axilla Left Fibromyalgia Pain Back Thoracic Pain Back Screening Osteoporosis Gastroesophageal Reflux Disease Mu Crenshaw D.O. [place] Procedures DX Chest AP or PA and Lateral 2 Views [address] [place], [place] [address] Referral ID Status Reason Start Date Expiration Date Visits Requ ested Visits Authorized [id number] Closed 12/03/2021 12/03/2022 1 1 utpatient (Routine) - Closed Specialty Diagnoses / Procedures Referred By Contact Refer red To Contact Diagnoses Mass Axilla Left Mu Kong D.O. [facility] Procedures US Axilla Non Breast Left [address] [place], [place] [address] Referral ID Status Reason Start Date Expiration Date Visits Requ ested Visits Authorized [id number] Closed 12/03/2021 12/03/2022 1 1 Reason for Visit Reason Comments lump under armpit Fatigue Sore Throat lesion on kidney Abdominal Pain Disc Disorder Chest Pain Generalized Body Aches Appointment Request (Routine) - Closed Specialty Diagnoses / Procedures Referred By Contact Refer red To Contact General Internal Diagnoses General Medical Examination Adult Medicine Referral ID Status Reason Start Date Expiration Date Visits Requ ested Visits Authorized [id number] Closed 11/26/2021 11/26/2022 1 1 Encounter Details Date Type Department Care Team Description 12/03/2021 Comprehensive Visit Division of [facility] Mass Ax illa Left (Primary Dx); General Internal Jagdish Iglesias Fibromyalgia; Medicine in [address] [facility] Pain Back Thoracic; [place], [place] Pain Back; [place] [address] Screening Osteoporosis; [address] [facility] [phone] Gastroesophageal Reflux Dise ase; [place], [place] (Work) Fatigue [phone] Social History Tobacco Use Types Packs/Day Years [...] How often do you attend islam or evangelical More than 4 time s per year [...] place to sleep or slept in a intermediate (including now)? Education Answer Date Recorded What is the highest level of school Master's degree (e.g., M Harris, MS, 08/08/2019 you have completed or the highest Anika, MEd, [employer], SINDY) degree you have received? Sex Assigned at Date Recorded Female 03/04/2018 7:21 PM CDT documented as of this encounter Last Filed Vital Signs Vital Sign Reading Time Taken Comments Blood Pressure 116/77 12/03/2021 7:48 AM CDT Pulse 81 12/03/2021 7:48 AM CDT Temperature - - Respiratory Rate - - Oxygen Saturation - - Inhaled Oxygen Concentration - - Weight 67.8 kg (149 lb 7.6 oz) 12/03/2021 7:48 AM CDT Height 153.1 cm (5' 0.28) 12/03/2021 7:48 AM CDT Body Mass Index 28.93 12/03/2021 7:48 AM CDT documented in this encounter H&P Notes Mu Kong D.O. - 12/03/2021 8:00 AM CDT SUBJECTIVE REFERRAL SOURCE No ref. provider found CHIEF COMPLAINT/REASON FOR VISIT [facility]. CC: lump in armpit, chronic joint pain, back/neck pain, general fatigue, don't feel well, chest pain/stomach ache HISTORY OF PRESENT ILLNESS Mrs. Booker is a pleasant 51-year-old female from [place], [place], with a past medical historysignificant for history of spinal stenosis status post lumbar (L5-S1) fusion 1984, cervical fusion 2008, shoulder surgery 2017, breast augmentation in 2009 with exchange 2017, decompression with lumbarfusion August 2019, osteoarthritis, peripheral neuropathy and currently presenting with significantconcern for multiple GI issues as well as chronic fatigue symptoms. # chest pain and discomfort with outside diagnosis of costochondritis vs swallowing difficulty (dysphagia) - patient recalls a several years ago she initially presented with a difficult be a in swallowing. Specifically she recalls that she has sensation that it was hurting a when swallowing and food was getting stuck at the anterior chest level up. Evaluation done at that time including swallow evaluation was negative. Hence it was felt that her symptoms most likely was acid reflux and she was started on omeprazole. - recently with progressive increasing in anterior chest discomfort she followed up with a GI specialist locally who did a comprehensive evaluation including EGD on 10/12/2021. Report notes preliminaryimpression of chronic gastroesophageal reflux disease and she was recommend to continue with omeprazole 40 mg. However going through the report itself it was noted that she had normal esophagus withoutany strictures or evidence of Vallejo's. Mid and distal esophagus biopsies were taken to rule out EOE. Normal duodenum and stomach. Sessile Stomach polyps 3 mm was noted but not biopsied. I do not havethe pathology report but per patient it was completely normal without any concerning findings. - later on she followed up with an no other physician who noted that she continues to be on omeprazole 40 mg and hence recommend to reduce it to 20 mg. - recently she was evaluated in the ER when she presented with excruciating chest pain. She specifically noted that the pain was at the distal sternal level at the bra line and radiates circumferentially when it is severe. Patient also endorses worsening and pain with palpation of the sternum. The ER doctor noted that she was not having any cardiac issues and diagnosed her with costochondritis. She was recommended to stop the omeprazole (which was about 2 3 weeks ago). -patient describes the chest discomfort as intermittent heartburn symptoms with acute sharp pain at the distal sternal level that is exacerbated if she wears any tight clothes. # lump left armpit # Family history of breast cancer - patient noted that she is concerned that she has family history of breast cancer: Mom (diagnosed at 82) and a paternal grandmother (diagnosed at 45 and underwent complete mastectomy the time). - 1997 patient underwent a right breast biopsy that was benign. - 1999 patient underwent breast reduction and implants with subsequent exchange in 2019. - patient recalls that she has had an axillary lymph node that is palpable for some time that her local provider has been following up with ultrasound and physical examination. - 02/13/2021: Mammogram demonstrated scattered fibroglandular densities without any change when compared to imaging from 02/09/2020 and 03/23/2018. - 03/09/2021 ultrasound left breast noted normal left axillary lymph nodes with the largest measuring 2.3 x 0.7 x 1.0 cm. No evidence of malignancy. - 06/07/2021 patient a received a booster dose of Pfizer COVID vaccine. It is of note that her [id number] to doses verde Moderna. Few weeks after the booster dose as she noticed swelling in her left axilla that was somewhat discomforting and painful. She followed up with the local provider who noted that this is most likely reaction to the Pfizer immunization hand recommended just monitoring it. However, as she continued to have persistent symptomatology further evaluation was subsequently done including: - mammogram 08/27/2021: That was negative for malignancy - ultrasound left axilla: Negative for any concerning finding or changes. # chronic fatigue # polyarthralgia and myalgia Patient has had multiple surgeries in the past. Over time she has also noticed progressive worseningfatigue, and joint pain (in multiple joints). She is concerned that with her multiple medical symptomatology that is ongoing there may be an underlying issue that may be the cause of all her symptomatology hence would like to have a comprehensive evaluation rule out any other etiology that may be mimicking her symptoms along with the chronic fatigue and diagnosis of fibromyalgia. - these days she is noticing that it by late afternoon she is extremely fatigued to the point where she could easily fall asleep even during a meeting, (that is of concern). REVIEW OF SYSTEMS Complete Review of Symptoms done and only significant for those noted in History of Present Illness. MEDICAL HISTORY Reviewed and updated. SOCIAL HISTORY Reviewed and updated. FAMILY HISTORY Reviewed and updated. OBJECTIVE VITAL SIGNS BP 116/77 (BP Location: Left arm, Patient Position: Sitting, Cuff Size: Regular) Pulse 81 Ht 153.1 cm Wt 67.8 kg BMI 28.93 kg/m?? Body mass index is 28.93 kg/m??. PHYSICAL EXAMINATION General: Age-appropriate appearing female in no acute distress at this time. Alert and oriented to person, place, and time. Head: Atraumatic. Eyes: Sclerae anicteric. ENT: No oropharyngeal erythema or edema. Heart: Regular rate and rhythm. Normal S1, S2. I was unable to appreciate any S3, gallops, or murmurs. Lungs: Clear to auscultation bilaterally. No wheezes, rales, or rhonchi. Abdomen: Soft, nondistended, nontender. Normal bowel sounds were heard in all four quadrants. I was unable to appreciate any hepatosplenomegaly. Extremities: No cyanosis, clubbing, or edema. Neurologic: Cranial nerves 2-12 are grossly intact. Bilateral upper and lower extremity proximal anddistal muscle strength 5/5. Bilateral biceps, brachialis, and knee reflexes +2/4. ASSESSMENT / PLAN # chest pain and [...] that was done locally for review. # lump left armpit # Family history of breast cancer On examination and the fact that she has completely normal mammogram a, this is most likely a lipomaor a cystic lesion that is benign. It was decided we will get a repeat ultrasound and have it compared to the prior was by our radiologist. Additionally we will try to get the outside mammogram to be re viewed by our radiologist. # renal lesion versus cyst Patient noted that she has a renal lesion versus as cyst that is followed locally. I have requested this he would like to have the images reviewed by our radiologist I will be happy to set it up. She will try to send the images to me. # chronic fatigue # polyarthralgia and myalgia - we would go ahead and do comprehensive evaluation to rule out any other etiologies that may be mimicking her symptomatology. She is scheduled to have a consultation with our colleagues in fibromyalgia later on. Spent more than 90 minutes, less than 50% of the time in discussion. Images, laboratory tests, and consultations were reviewed with the patient in detail. Lengthy discussion. I have provided the rationale for my recommendations and the plan of management. It is a pleasure being part of the care for Ms. Josie Booker. documented in this encounter Plan of Treatment Not on filedocumented as of this encounter Results US Axilla Non Breast Left (12/04/2021 8:51 AM CDT) Anatomical Region Laterality Modality Chest, Ultrasound RST LOS, Ultrasound ARZ LOS, Ultrasound FL A Left Ultrasound LOS Specimen (Source) Anatomical Collection Method Collection Time Re ceived Time Location / / Volume Laterality 12/04/2021 8:53 AM CDT Impressions 12/04/2021 9:00 AM CDT There is an approximately 0.4 x 2.0 x 1.7 cm in size ovoid shaped, fat-containing, masslike structure in the subcutaneous t issues of the left axillary region at the area of the patient's palpable concern. Doppler eval uation demonstrates no detectable internal blood flow. The lesion does not extend through the under lying muscular fascia. This structure demonstrates sonographic appearance most compatible w ith a subcutaneous lipoma. Continued clinical follow-up with physical examination is recommended to e xclude a rapid growth or development of new symptoms, in which case further evaluation with a ded icated MRI scan or histologic confirmation would be indicated. No left axillary lymphadenopa thy. No other mass or fluid collection in the region. Narrative 12/04/2021 9:00 AM CDT EXAM: US AXILLA NON BREAST LEFT COMPARISON: None Procedure Note Contreras Nelson M.D. - 12/04/2021Forma tting of this note might be different from the original. EXAM: US AXILLA NON BREAST LEFT COMPARISON: None IMPRESSION: There is an approximately 0.4 x 2.0 x 1. 7 cm in size ovoid shaped, fat-containing, masslike structure in the subcutaneous t issues of the left axillary region at the area of the patient's palpable concern. Doppler eval uation demonstrates no detectable internal blood flow. The lesion does not extend through the under lying muscular fascia. This structure demonstrates sonographic appearance most compatible w ith a subcutaneous lipoma. Continued clinical follow-up with physical examination is recommended to e xclude a rapid growth or development of new symptoms, in which case further evaluation with a ded icated MRI scan or histologic confirmation would be indicated. No left axillary lymphadenopa thy. No other mass or fluid collection in the region. Mu DONOHUE US PROCEDURES DX Chest AP or PA and Lateral 2 Views (12/04/2021 8:10 AM CDT) Anatomical Region Laterality Modality Chest, Thoracic RST LOS, Thoracic ARZ LOS, Thoracic N/A Digital Radiography FLA LOS Specimen (Source) Anatomical Collection Method Collection Time Re ceived Time Location / / Volume Laterality 12/04/2021 8:14 AM CDT Impressions 12/04/2021 8:14 AM CDT PO changes both breasts. PO changes cervical and lumbar spine. Chest otherwise negative. Narrative 12/04/2021 8:14 AM CDT EXAM: ??DX CHEST AP OR PA AND LATERAL 2 VIEWS Procedure Note Erickson Kenyon M.D. - 12/04/2021Forma tting of this note might be different from the original. EXAM: DX CHEST AP OR PA AND LATERAL 2 EWS IMPRESSION: PO changes both breasts. PO changes cerv ical and lumbar spine. Chest otherwise negative. Mu DONOHUE DIAGNOSTIC IMAGING PROCE DURES Urinalysis with Microscopic: Urine, Midstream (12/04/2021 7:35 AM CDT) [facility] Method Time Signature Source Urine, Urine, 12/04/2021 DTL Midstream 8:20 AM CDT Color, U Yellow 12/04/2021 DTL 8:20 AM CDT Clarity, U Clear 12/04/2021 DTL 8:20 AM CDT Protein, U <4 <26 mg/dL 12/04/2021 DTL 1:13 PM CDT Protein/Osmol <0.21 <0.42 12/04/2021 DTL ality ratio 1:13 PM CDT Predicted 24 <159 mg/24 h 12/04/2021 DTL Hr Protein 1:13 PM CDT Predicted <646 mg/24 h 12/04/2021 DTL Range 1:13 PM CDT Specimen Anatomical Collection Method Collection Time Receive d Time (Source) Location / / Volume Laterality Urine (Urine, 12/04/2021 7:35 AM 12/05/19 8:20 Midstream) CDT AM CDT Mu Kong D.O. LAB URINE ORDERABLES Performing Organization Address City/[facility]/ZIP Code Phon e Number [facility] - [address] [place], [place] [address] [facility] [place] [address] Laboratories-[facility] [place] [facility] 200 [facility] Sedimentation Rate (12/04/2021 7:27 AM CDT) Analysis Performed At Patho logist Time Signature Sedimentation 2 2 - 22 12/04/2021 DTL Rate, B mm/h 8:52 AM CDT Specimen Anatomical Collection Method Collection Time Receive d Time (Source) Location / / Volume Laterality Blood (Blood, 12/04/2021 7:27 AM 12/05/19 7:49 Venous) CDT AM CDT Mu Kong D.O. LAB BLOOD ADD-ON Performing Organization Address City/[facility]/ZIP Code Phon e Number [facility] - [address] [place], [place] [address] [place] [address] [facility] [place] [facility] [address] [facility] Rheumatoid Factor (12/04/2021 7:27 AM CDT) P athologist Signature Rheumatoid <15 <15 IU/mL 12/04/2021 [facility] Factor, S 11:36 AM CDT Specimen Anatomical Collection Method Collection Time Receive d Time (Source) Location / / Volume Laterality Blood (Blood, 12/04/2021 7:27 AM 12/05/19 Venous) CDT 11:10 AM CDT Mu Kong D.O. LAB BLOOD ADD-ON Performing Organization Address City/[facility]/ZIP [facility] Phon e Number [facility] [address] [place] [address] [facility] [place] [address] Laboratory Medicine and Pathology [address] [place] Prothrombin Time (PT) (12/04/2021 7:27 AM CDT) P athologist Signature Prothrombin 10.5 9.4 - 12.5 12/04/2021 DTL Time, P sec 9:30 AM CDT INR 1.0 0.9 - 1.1 12/04/2021 DTL 9:30 AM CDT Comment: ----ADDITIONAL INFORMATION---- Standard intensity warfarin therapeutic range: 2.0 to 3.0 ?? High intensity warfarin therapeutic rang e: 2.5 to 3.5 Specimen Anatomical Collection Method Collection Time Receive d Time (Source) Location / / Volume Laterality Blood (Blood, 12/04/2021 7:27 AM 12/05/19 7:49 Venous) CDT AM CDT Mu Kong D.O. LAB BLOOD ADD-ON Performing Organization Address City/State/ZIP Code Phon e Number [facility] - [address] [place] [address] [place] [address] [facility] 200 [facility] Monoclonal Gammopathy Diagnostic (12/04/2021 7:27 AM CDT) [facility] Method Time Signature Therapeutic Unspecified 12/04/2021 [facility] Antibody 10:26 AM Administered? CDT Total Protein, 7.1 6.3 - 7.9 12/04/2021 [facility] S g/dL 11:01 AM CDT Joes Free 1.57 0.3300 - 12/04/2021 [facility] Light Chain, S 1.94 mg/dL 11:58 AM CDT Lambda Free 2.14 0.5700 - 12/04/2021 [facility] Light Chain, S 2.63 mg/dL 11:57 AM CDT Joes/Lambda 0.7336 0.2600 - 12/04/2021 [facility] FLC Ratio 1.65 11:58 AM CDT Albumin 3.8 3.4 - 4.7 12/04/2021 [facility] g/dL 3:52 PM CDT Alpha-1 0.2 0.1 - 0.3 12/04/2021 [facility] Globulin g/dL 3:52 PM CDT Alpha-2 1.0 0.6 - 1.0 12/04/2021 [facility] Globulin g/dL 3:52 PM CDT Beta-Globulin 0.9 0.7 - 1.2 12/04/2021 [facility] g/dL 3:52 PM CDT Gamma-Globulin 1.1 0.6 - 1.6 12/04/2021 [facility] g/dL 3:52 PM CDT A/G Ratio 1.15 12/04/2021 [facility] 3:52 PM CDT Impression No apparent monoclonal protein on serum electrophoresi s. 12/04/2021 [facility] 3:52 PM CDT See Isotype. Flag, Negative Negative 12/05/2021 [facility] M-protein 7:52 AM CDT Isotype M-protein No monoclonal 12/05/2021 [facility] Isotype protein 7:52 AM CDT MALDI-TOF MS detected. Comment: ----ADDITIONAL INFORMATION---- The submitted sample was assayed by five separate immunopurifications for IgG, IgA, IgM, kappa and lambda. ??The r esult reflects the findings of either no monoclonal protein detected or those monoclonal immunoglobulins that were detected. This test was developed and its performa nce characteristics determined by [facility] in a manner consistent with CLIA requirements. This test has not been cleared or approved by the [place] Aub[place] d and Drug Administration. Specimen Anatomical Collection Method Collection Time Receive d Time (Source) Location / / Volume Laterality Blood (Blood, 12/04/2021 7:27 AM 12/05/19 22 Venous) CDT 10:28 AM CDT Narrative [facility] - 12/05/2021 7:52 AM CDT Specimen Information: Specimen ID: [id number] Specimen Type: Blood Specimen Collection Start Date: 2 ??7:27 AM Specimen Received Date: 12/04/2021 10:28 AM Specimen ID: [id number] Specimen Type: Blood Specimen Collection Start Date: 2 ??7:27 AM Specimen Received Date: 12/04/2021 10:25 AM Mu Kong D.O. LAB BLOOD ADD-ON Performing Organization Address City/State/ZIP Code Phon e Number [facility] [address] [place] [address] [place] [address] [place] [address] Laboratory Medicine and Pathology [address] [place] [address] Dr. CORREA CRP (C-Reactive Protein) (12/04/2021 7:27 AM CDT) athologist Signature C-Reactive <3.0 <=8.0 mg/L 12/04/2021 DTL Protein (CRP), 2:09 PM CDT S Specimen Anatomical Collection Method Collection Time Receive d Time (Source) Location / / Volume Laterality Blood (Blood, 12/04/2021 7:27 AM 12/05/19 22 1:16 Venous) CDT PM CDT Mu Kong D.O. LAB BLOOD ADD-ON Performing Organization Address City/State/ZIP Code Phon e Number [facility] - [address] [place], [place] [address] [facility] [place] [address] Laboratories-[facility] [place] [facility] [address] [facility] Cortisol (12/04/2021 7:27 AM CDT) P athologist Signature Cortisol AM 10 7 - 25 12/04/2021 DTL Result mcg/dL 1:06 PM CDT Specimen Anatomical Collection Method Collection Time Receive d Time (Source) Location / / Volume Laterality Blood (Blood, 12/04/2021 7:27 AM 12/05/19 22 Venous) CDT 12:26 PM CDT Mu Kong D.O. LAB BLOOD ADD-ON Performing Organization Address City/State/ZIP Code Phon e Number [facility] - [address] [place], [place] [address] [facility] [place] [address] [facility] [address] [facility] CK (Creatine Kinase) (12/04/2021 7:27 AM CDT) P athologist Signature Creatine Kinase 97 26 - 192 12/04/2021 DTL (CK), S U/L 2:09 PM CDT Specimen Anatomical Collection Method Collection Time Receive d Time (Source) Location / / Volume Laterality Blood (Blood, 12/04/2021 7:27 AM 12/05/19 22 1:16 Venous) CDT PM CDT Mu Kong D.O. LAB BLOOD ADD-ON Performing Organization Address City/State/ZIP Code Phon e Number [facility] - [address] [place], [place] [address] [facility] [place] [address] [facility] [address] [facility] Celiac Disease Serology [place] (12/04/2021 7:27 AM CDT) Component Value Ref Test Analysis Performed Pathologis t Range Method Time At Signature Immunoglobulin A 117 61 - 356 12/04/2021 [facility] (IgA), S mg/dL 11:28 AM CDT Celiac Disease Negative serology. Celiac di sease unlikely. However, approximately 10% of 12/04/2021 [facility] Interpretation patients with celiac disease are seronegative. Also, patients who are already 10:22 PM adhering to a gluten-free diet may be seronegative. If hema iac disease is CDT highly clinically suspected, consider HLA-DQ typing. Specimen Anatomical Collection Method Collection Time Receive d Time (Source) Location / / Volume Laterality Blood (Blood, 12/04/2021 7:27 AM 12/05/19 Venous) CDT 10:25 AM CDT Narrative [facility] - 12/04/2021 10:22 PM CDT Specimen Information: Specimen ID: [id number] Specimen Type: Blood Specimen Collection Start Date: 2 ??7:27 AM Specimen Received Date: 12/04/2021 10:25 AM Specimen ID: [id number] Specimen Type: Blood Specimen Collection Start Date: 2 ??7:27 AM Specimen Received Date: 12/04/2021 10:28 AM Mu Kong D.O. LAB BLOOD ADD-ON Performing Organization Address City/State/ZIP Code Phon e Number [facility] [address] [place] [address] [facility]PPORT [facility] [place] [address] Laboratory Medicine and Pathology [address] [place] [address] Dr. CORREA (ABNORMAL) CBC with Differential, Blood (12/04/2021 7:27 AM CDT) Patholo gist Method Time Signature Hemoglobin 15.2 (H) 11.6 - 12/04/2021 DTL 15.0 g/dL 8:14 AM CDT Hematocrit 47.2 (H) 35.5 - 12/04/2021 DTL 44.9 % 8:14 AM CDT Erythrocytes 5.52 (H) 3.92 - 12/04/2021 DTL 5.13 8:14 AM CDT x10(12)/L MCV 85.5 78.2 - 12/04/2021 DTL 97.9 fL 8:14 AM CDT RBC Distrib Width 12.3 12.2 - 12/04/2021 DTL 16.1 % 8:14 AM CDT Platelet Count 285 157 - 371 12/04/2021 DTL x10(9)/L 8:14 AM CDT Leukocytes 4.5 3.4 - 9.6 12/04/2021 DTL x10(9)/L 8:14 AM CDT Neutrophils 2.71 1.56 - 12/04/2021 DTL 6.45 8:14 AM CDT x10(9)/L Lymphocytes 1.11 0.95 - 12/04/2021 DTL 3.07 8:14 AM CDT x10(9)/L Monocytes 0.49 0.26 - 12/04/2021 DTL 0.81 8:14 AM CDT x10(9)/L Eosinophils 0.10 0.03 - 12/04/2021 DTL 0.48 8:14 AM CDT x10(9)/L Basophils 0.07 0.01 - 12/04/2021 DTL 0.08 8:14 AM CDT x10(9)/L Specimen Anatomical Collection Method Collection Time Receive d Time (Source) Location / / Volume Laterality Blood (Blood, 12/04/2021 7:27 AM 12/05/19 22 7:49 Venous) CDT AM CDT Mu Kong D.O. LAB BLOOD ADD-ON Performing Organization Address City/State/ZIP Code Phon e Number [facility] - [address] [place], [place] [address] [facility] [place] [address] Laboratories-[facility] [address] Antibody to Extractable Nuclear Antigen Evaluation (12/04/2021 7:27 AM CDT) P athologist Signature SS-A/Ro Ab, <0.2 <1.0 12/04/2021 SDSC IgG, S (Negative) 1:06 PM CDT U SS-B/La Ab, <0.2 <1.0 12/04/2021 SDSC IgG, S (Negative) 1:06 PM CDT U Sm Ab, IgG, S <0.2 <1.0 12/04/2021 SDSC (Negative) 1:05 PM CDT U MIDLEVEL PROVIDER Ab, IgG, S 0.4 <1.0 12/04/2021 SDSC (Negative) 1:05 PM CDT U Scl 70 Ab, IgG, 0.3 <1.0 12/04/2021 SDSC S (Negative) 1:06 PM CDT U Maribell 1 Ab, IgG, S <0.2 <1.0 12/04/2021 SDSC (Negative) 1:05 PM CDT U Specimen Anatomical Collection Method Collection Time Receive d Time (Source) Location / / Volume Laterality Blood (Blood, 12/04/2021 7:27 AM 12/05/19 22 Venous) CDT 10:23 AM CDT Mu Kong D.O. LAB BLOOD ADD-ON Performing Organization Address City/[facility]/ZIP Code Phon e Number [facility] [address] [place] [address] [facility] [place] [address] Laboratory Medicine and Pathology [address] [place] Aldolase (12/04/2021 7:27 AM CDT) athologist Signature Aldolase, S 3.6 <7.7 U/L 12/04/2021 DT 10:11 AM CDT Specimen Anatomical Collection Method Collection Time Receive d Time (Source) Location / / Volume Laterality Blood (Blood, 12/04/2021 7:27 AM 12/05/19 22 9:17 Venous) CDT AM CDT Mu Kong D.O. LAB BLOOD NON ADD-ON Performing Organization Address City/[facility]/ZIP [facility] Phon e Number [facility] - [address] [place], [place] [address] [place] [address] Laboratories-[facility] [address] 25-Hydroxyvitamin D2 and D3 (12/04/2021 7:27 AM CDT) athologist Signature 25-Hydroxy D2 <4.0 ng/mL 12/04/2021 [facility] 11:27 PM CDT 25-Hydroxy D3 34 ng/mL 12/04/2021 [facility] 11:27 PM CDT 25-Hydroxy D 34 ng/mL 12/04/2021 [facility] Total 11:27 PM CDT Comment: ----REFERENCE VALUE---- 25-HYDROXY D TOTAL (D2+D3) Optimum level s in the healthy population are 20-50, patients with bone disease may benefit from higher levels within this r beatriz. ----ADDITIONAL INFORMATION---- This test was developed and its performa nce characteristics determined by [facility] in a manner consistent with CLIA requirements. This test has not been cleared or approved by the [place] d and Drug Administration. Specimen Anatomical Collection Method Collection Time Receive d Time (Source) Location / / Volume Laterality Blood (Blood, 12/04/2021 7:27 AM 12/05/19 Venous) CDT 10:53 AM CDT Mu Kong D.O. LAB BLOOD ADD-ON Performing Organization Address City/[facility] Phon e Number [facility] [address] [place], [place] [address] [facility] [place] [address] Laboratory Medicine and Pathology [address] [place] T4 (Thyroxine), Free (12/04/2021 7:27 AM CDT) athologist Signature T4 (Thyroxine), 1.3 0.9 - 1.7 12/04/2021 DT Free, S ng/dL 2:09 PM CDT Specimen Anatomical Collection Method Collection Time Receive d Time (Source) Location / / Volume Laterality Blood (Blood, 12/04/2021 7:27 AM 12/05/19 22 1:16 Venous) CDT PM CDT Mu Kong D.O. LAB BLOOD ADD-ON Performing Organization Address City/State/[facility] Phon e Number [facility] - [address] [place], [place] [address] [facility] [place] [address] Laboratories-[facility] [address] Pernicious Anemia [place] (12/04/2021 7:27 AM CDT) athologist Signature Vitamin B12 400 180 - 914 12/04/2021 [facility] Assay, S ng/L 12:52 PM CDT Comment: B-12 <400; MMA test was perform ed. Specimen Anatomical Collection Method Collection Time Receive d Time (Source) Location / / Volume Laterality Blood (Blood, 12/04/2021 7:27 AM 12/05/19 Venous) CDT 11:01 AM CDT Mu Kong D.O. LAB BLOOD NON ADD-ON Performing Organization Address City/State/ZIP Code Phon e Number [facility] [address] [place], [place] [address] [facility] [place] [address] Laboratory Medicine and Pathology [address] [place] NT-Pro B-Type Natriuretic Peptide (BNP) (12/04/2021 7:27 AM CDT) athologist Signature NT-Pro BNP 32 <=155 pg/mL 12/04/2021 DTL 2:09 PM CDT Comment: NT-proBNP values less than 300 pg/mL hav e a 99% negative predictive value for excluding acute congestive heart kelsey lure. A cutoff of 1200 pg/mL for patients with an eGFR<60 yields a diagno stic sensitivity and specificity of 89% and 72% for acute congestive heart f ailure. ??A diagnostic NT-proBNP cutoff of 900 pg/mL has been suggested i n adults 50-75 years of age in the absence of renal failure. Specimen Anatomical Collection Method Collection Time Receive d Time (Source) Location / / Volume Laterality Blood (Blood, 12/04/2021 7:27 AM 12/05/19 22 1:16 Venous) CDT PM CDT Mu Kong D.O. LAB BLOOD ADD-ON Performing Organization Address City/State/ZIP Code Phon e Number [facility] - [address] [place], [place] [address] [facility] [place] [address] Laboratories-[facility] [address] Ferritin (12/04/2021 7:27 AM CDT) athologist Signature Ferritin, S 95 11 - 307 12/04/2021 DTL mcg/L 1:16 PM CDT Specimen Anatomical Collection Method Collection Time Receive d Time (Source) Location / / Volume Laterality Blood (Blood, 12/04/2021 7:27 AM 12/05/19 22 Venous) CDT 12:26 PM CDT Mu Kong D.O. LAB BLOOD ADD-ON Performing Organization Address City/[facility]/ZIP Code Phon e Number [facility] - [address] [place], [place] [address] [place] [address] [place], [place] [id number] [place] [address] 200 [facility] D-Dimer (12/04/2021 7:27 AM CDT) athologist Signature D-Dimer, P 249 <=500 ng/mL 12/04/2021 DTL FEU 9:30 AM CDT Comment: ----ADDITIONAL INFORMATION---- D-dimer values less than or equal to 500 ng/mL fibrinogen equivalent units (FEU) may be used in co njunction with clinical pre-test probability to exclude deep vein thrombosis (DVT) and/or pulmonary emboli sm (PE). Specimen Anatomical Collection Method Collection Time Receive d Time (Source) Location / / Volume Laterality Blood (Blood, 12/04/2021 7:27 AM 12/05/19 22 7:49 Venous) CDT AM CDT Mu Kong D.O. LAB BLOOD ADD-ON Performing Organization Address City/[facility]/ZIP Code Phon e Number [facility] - [address] [place], [place] [address] [place] [address] [place], [place] [phone] [place] [address] [facility] Bilirubin, Direct (12/04/2021 7:27 AM CDT) athologist Signature Bilirubin, <0.2 0.0 - 0.3 12/04/2021 DT Direct, S mg/dL 2:09 PM CDT Specimen Anatomical Collection Method Collection Time Receive d Time (Source) Location / / Volume Laterality Blood (Blood, 12/04/2021 7:27 AM 12/05/19 22 1:16 Venous) CDT PM CDT Mu Kong D.O. LAB BLOOD ADD-ON Performing Organization Address City/[facility]/ZIP Code Phon e Number [facility] - [address] [place], [place] [address] [place] [address] [place] [address] [facility] (ABNORMAL) Lipid Panel (12/04/2021 7:26 AM CDT) P athologist Signature Cholesterol, 269 (H) mg/dL 12/04/2021 DTL Total 2:21 PM CDT Comment: ----REFERENCE VALUE---- Desirable: < 200 Borderline high: 200 - 239 High: > or = 240 Triglycerides 93 mg/dL 12/04/2021 2:21 PM CDT DTL Comment: ----REFERENCE VALUE---- Normal: <150 Borderline high: 150-199 High: 200-499 Very high: > or =500 Cholesterol, HDL, S 80 >=50 mg/dL 12/04/2021 2:21 PM CDT DTL Calculated LDL 170 (H) mg/dL 12/04/2021 2:21 PM CDT DT L Comment: ----REFERENCE VALUE---- Desirable: <100 mg/dL Above Desirable: 100-129 mg/dL Borderline High: 130-159 mg/dL High: 160-189 mg/dL Very High: >=190 mg/dL Cholesterol, Non-HDL, Calculated 189 (H) mg/dL 022 2:21 PM CDT DTL Comment: ----REFERENCE VALUE---- Desirable: <130 Above Desirable: 130-159 Borderline high: 160-189 High: 190-219 Very high: > or =220 Specimen Anatomical Collection Method Collection Time Receive d Time (Source) Location / / Volume Laterality Blood (Blood, 12/04/2021 7:26 AM 12/05/19 1:13 Venous) CDT PM CDT Mu Kong D.O. LAB BLOOD ADD-ON Performing Organization Address City/State/ZIP Code Phon e Number [facility] - [address] [place], [place] [address] [facility] [place] [address] Laboratories-[facility] [address] (ABNORMAL) Comprehensive Metabolic Panel (12/04/2021 7:26 AM CDT) Analysis Performed At Patho logist Time Signature Potassium, S 4.5 3.6 - 5.2 12/04/2021 DTL mmol/L 3:38 PM CDT Sodium, S 142 135 - 145 12/04/2021 DTL mmol/L 3:38 PM CDT Chloride, S 103 98 - 107 12/04/2021 DTL mmol/L 3:38 PM CDT Bicarbonate, S 26 22 - 29 12/04/2021 DTL mmol/L 3:38 PM CDT Anion Gap 13 7 - 15 12/04/2021 DTL 3:38 PM CDT BUN (Blood Urea 18 6 - 21 12/04/2021 DTL Nitrogen), S mg/dL 3:38 PM CDT Creatinine 1.19 (H) 0.59 - 12/04/2021 DTL 1.04 mg/dL 3:38 PM CDT eGFR-Non 52 (L) >=60 12/04/2021 DTL Black/ mL/min/BSA 3:38 PM CDT Hungarian Comment: ----ADDITIONAL INFORMATION---- Estimated GFR calculated using the 2009 CKD_EPI creatinine equation. eGFR-Black/ 60 >=60 mL/min/BSA 2021 3:38 PM CDT DTL Comment: ----ADDITIONAL INFORMATION---- Estimated GFR calculated using the 2009 CKD_EPI creatinine equation. Calcium, Total, S 9.5 8.6 - 10.0 mg/dL 12/04/2021 3:38 PM CDT DTL Glucose, S 88 70 - 140 mg/dL 12/04/2021 3:38 PM CDT D TL Protein, Total, S 7.1 6.3 - 7.9 g/dL 12/04/2021 3:38 P M CDT DTL Albumin, S 5.0 3.5 - 5.0 g/dL 12/04/2021 3:38 PM CDT D TL Aspartate Aminotransferase 24 8 - 43 U/L 12/04/2021 3 :38 PM CDT DTL (AST), S Alkaline Phosphatase, S 31 (L) 35 - 104 U/L 12/04/2021 3: 38 PM CDT DTL Alanine Aminotransferase 20 7 - 45 U/L 12/04/2021 3:3 8 PM CDT DTL (ALT), S Bilirubin, Total, S 0.5 <=1.2 mg/dL 12/04/2021 3:38 PM CDT DTL Specimen Anatomical Collection Method Collection Time Receive d Time (Source) Location / / Volume Laterality Blood (Blood, 12/04/2021 7:26 AM 12/05/19 2:29 Venous) CDT PM CDT Mu Kong D.O. LAB BLOOD ADD-ON Performing Organization Address City/[facility]/ZIP [facility] Phon e Number [facility] - [address] [place], [place] [address] [place] [id number] [place] [address] Iron and Total Iron-Binding Capacity (12/04/2021 7:26 AM CDT) athologist Signature Iron 97 35 - 145 12/04/2021 DTL mcg/dL 2:21 PM CDT Total Iron 309 250 - 400 12/04/2021 DTL Binding Capacity mcg/dL 2:21 PM CDT Percent 31 14 - 50 % 12/04/2021 DTL Saturation 2:21 PM CDT Specimen Anatomical Collection Method Collection Time Receive d Time (Source) Location / / Volume Laterality Blood (Blood, 12/04/2021 7:26 AM 12/05/19 1:13 Venous) CDT PM CDT Mu Kong D.O. LAB BLOOD ADD-ON Performing Organization Address City/[facility]/ZIP [facility] Phon e Number [facility] - [phone] [place] [address] ECG 12 Lead (12/03/2021 1:41 PM CDT) athologist Signature Ventricular Rate 74 BPM MUSE ECG/Min AL Interval 132 ms MUSE QRSD Interval 78 ms MUSE QT Interval 372 ms MUSE QTC Interval 412 ms MUSE P [place] 45 degrees MUSE R [place] 59 degrees MUSE T Wave [place] 67 degrees MUSE Specimen Anatomical Collection Method Collection Time Receive d Time (Source) Location / / Volume Laterality 12/03/2021 1:41 PM 2 1:49 CDT PM CDT Impressions MUSE - 12/03/2021 1:49 PM CDT Normal sinus rhythm Low anterior forces No previous ECGs available Reviewed by JUNAID Colunga Narrative This result has an attachment that is no t available. Procedure Note Leonard Fairchild M.D. - 12/03/2021Formatt ing of this note might be different from the original. IMPRESSION: Normal sinus rhythm Low anterior forces No previous ECGs available Reviewed by JUNAID Colunga Mu Kong D.O. ECG ORDERABLES Performing Organization Address City/State/ZIP Code Phon e Number MUSE MUSE NA documented in this encounter Visit Diagnoses Diagnosis Mass Axilla Left - Primary Fibromyalgia Pain Back Thoracic Pain Back Screening Osteoporosis Gastroesophageal Reflux Disease Fatigue Fibromyalgia Mass Axilla Left Pain Back Thoracic Pain Back Screening Osteoporosis Gastroesophageal Reflux Disease Fatigue Mass Axilla Left Fibromyalgia Pain Back Thoracic Pain Back Screening Osteoporosis Gastroesophageal Reflux Disease Fatigue Mass Axilla Left documented in this encounter
--- OUTSIDE RECORDS SUMMARY | 2022-04-23 15:44 | XMS_ITS | Encounter Summary ---
:1970 Author Organization [facility] Address [address] [place] [address] Care Team Providers Name Role Phone Unavailable Primary Care Provider Unavailable Reason for Visit Reason Comments COVID Inquiry Encounter Details Date Type Department Care Team Description 10/12/2020 Clinical Communication Department of [facility] in [place], [place] [address] [facility] [address] [place] [phone] Social History Tobacco Use Types Packs/Day Years [...] or relatives? How often do you attend sabianist or latter-day More than 4 time s per year 11/30/2021 services? Do you belong to any clubs or organizations Yes 11/30/2021 such as sabianist groups, unions, fraternal or athletic groups, or [...] have completed or the highest Anika, MEd, BALLING HEAD TENDER, SINDY) degree you have received? Sex Assigned at Date Recorded Female 03/04/2018 7:21 PM CDT documented as of this encounter Miscellaneous Notes Telephone Encounter - Danelle Negrete - 10/12/2020 8:50 AM CST ([facility] and [facility] locations only: If the patient is not having symptoms and is requesting COVID-19 Nasal Swab testing only, use the process listed in the COVID-19 Patient Requesting COVID PCR Test OTG COVID-19 [place] Patient Requesting COVID PCR Test). In the past 20 days have you had a swab for COVID that tested positive? 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
--- OUTSIDE RECORDS SUMMARY | 2022-04-23 15:44 | XMS_ITS | Encounter Summary ---
:1970 Author Organization [facility] Address [address] [place] [address] Care Team Providers Name Role Phone Unavailable Primary Care Provider Unavailable Reason for Referral Outpatient (Routine) - Closed Specialty Diagnoses / Procedures Referred By Contact Refer red To Contact Diagnoses Mass Axilla Left Mu Kong D.O. [facility] Procedures US Axilla Non Breast Left [address] [place] [phone] Referral ID Status Reason Start Date Expiration Date Visits Requ ested Visits Authorized [id number] Closed 12/03/2021 12/03/2022 1 1 Reason for Visit Outpatient (Routine) - Closed Specialty Diagnoses / Procedures Referred By Contact Refer red To Contact Diagnoses Mass Axilla Left Mu Kong D.O. [facility] Procedures US Axilla Non Breast Left [address] [place] [phone] Referral ID Status Reason Start Date Expiration Date Visits Requ ested Visits Authorized [id number] Closed 12/03/2021 12/03/2022 1 1 Encounter Details Date Type Department Care Team Description 12/04/2021 Hospital Encounter Department of Mu Kong Mass Axilla Left Radiology, [facility], in [address] [place], [place] [address] [place] [phone] [place], [place] [phone] (Work) [phone] Social History Tobacco Use Types Packs/Day Years [...] How often do you attend jew or quaker More than 4 time s [...] place to sleep or slept in a halfway (including now)? Education Answer Date Recorded What is the highest level of school Master's degree (e.g., M A, MS, 08/08/2019 you have completed or the highest Anika, MEd, STRAW BALER, SINDY) degree you have received? Sex Assigned at Date Recorded Female 03/04/2018 7:21 PM CDT documented as of this encounter Medications at Time of Discharge Medication Sig Dispensed Refills Start Date End Date acetaminophen (TYLENOL) 500 Take 1,000 mg by 0 mg tablet mouth as needed for pain. calcium carbonate 1,500 mg Take 600 mg of 0 09/19 (600 mg calcium) tablet calcium by mouth daily. cholecalciferol, vitamin D3, Take 1,000 Units by 0 25 mcg (1,000 Unit) tablet mouth every morning. cyclobenzaprine (FLEXERIL) Take 5-10 mg by 0 10 mg tablet mouth as needed for muscle spasms. Lactobacillus acidophilus Take 1 capsule by 0 (Probiotic) 10 billion cell mouth every capsule morning. documented as of this encounter Plan of Treatment Not on filedocumented as of this encounter Procedures Procedure Name Priority Date/Time Associated Comments Diagnosis US AXILLA NON RAD - Routine 12/04/2021 8:51 Mass Axilla Left Result s for this BREAST LEFT (most inpatients AM CDT procedure a re in and all the results outpatients) section. documented in this encounter Results US Axilla Non Breast [...] in the region. Mu DONOHUE US PROCEDURES documented in this encounter Visit Diagnoses Diagnosis Mass Axilla Left documented in this encounter
--- OUTSIDE RECORDS SUMMARY | 2022-04-23 15:44 | XMS_ITS | Encounter Summary ---
:1970 Author Organization [facility] Address [address] [place] [address] Care Team Providers Name Role Phone Unavailable Primary Care Provider Unavailable Encounter Details Date Type Department Care Team Description 12/01/2020 Hospital Encounter Department of [facility] Radiology, Juan C Kraft M.D. [facility], in [address] [place] [address] [place] [phone] [place], [place] [phone] (Work) [phone] Social History Tobacco Use Types Packs/Day Years [...] or relatives? How often do you attend pentecostalism or mormonism More than 4 time s per year 11/30/2021 services? Do you belong to any clubs or organizations Yes 11/30/2021 such as pentecostalism groups, unions, fraternal or athletic groups, or [...] place to sleep or slept in a chcf (including now)? Education Answer Date Recorded What is the highest level of school Master's degree (e.g., M A, MS, 08/08/2019 you have completed or the highest Anika, MEd, CAR PARK ATTENDANT, SINDY) degree you have received? Sex Assigned at Date Recorded Female 03/04/2018 7:21 PM CDT documented as of this encounter Medications at Time of Discharge Medication Sig Dispensed Refills Start Date End Date acetaminophen (TYLENOL) 500 Take 1,000 mg by 0 mg tablet mouth as needed for pain. cholecalciferol, vitamin Take 1,000 Units 0 D3, 25 mcg (1,000 Unit) by mouth every tablet morning. cyclobenzaprine (FLEXERIL) Take 5-10 mg by 0 10 mg tablet mouth as needed for muscle spasms. Lactobacillus acidophilus Take 1 capsule by 0 (Probiotic) 10 billion cell mouth every capsule morning. calcium carbonate 1,500 mg Take 1 tablet by 0 08/201512/07/2020 (600 mg calcium) tablet mouth 2 (two) times a day. One in AM, one in PM diclofenac-miSOPROStol Take 1 tablet by 60 tablet 2 020 12/07/2020 (ARTHROTEC 50) 50-200 mouth 2 (two) mg-mcg per DR tablet times a day. Do not crush or chew. mupirocin (BACTROBAN) 2 % Apply a dab to the 22 g 0 12/07/2020 ointment each nostril twice daily for 5 days. mv/FA/dha/epa/coQ10/Ca/D3/c Take 1 capsule by 0 12/03/2021 ran (WOMEN'S VITAPAK ORAL) mouth every morning. traMADol (ULTRAM) 50 mg Take 1 tablet (50 25 tablet 0 08/1812/07/2020 tabletIndications: Acute mg total) by mouth Pain Exception every 6 (six) hours as needed for severe pain or score 7-10 of 10 Indications: Acute Pain Exception. documented as of this encounter Plan of Treatment Not on filedocumented as of this encounter Procedures Procedure Name Priority Date/Time Associated Comments Diagnosis DX LUMBAR SPINE RAD - Routine 12/01/2020 9:57 Stenosis Spinal Resul ts for this 4+ VIEWS (most inpatients AM CDT procedure a re in and all the results outpatients) section. documented in this encounter Results DX Lumbar Spine 4+ Views (12/01/2020 9:57 AM CDT) Anatomical Region Laterality Modality Lumbar Spine, Musculoskeletal RST LOS, Neuroradiology N/A Digital Radiography ARZ LOS, Muskuloskeletal FLA LOS Specimen (Source) Anatomical Collection Method Collection Time Re ceived Time Location / / Volume Laterality 12/01/2020 10:16 AM CDT Impressions 12/01/2020 10:18 AM CDT Compared to an outside x-ray of 03/27/2020. Posterior robert and pedicle screw fixation L3 through L5 wit h bone grafting. Grade III-IV anterior spondylolisthesis of L5 on S1. Lumbosacr al facet arthritis. Degenerative changes both SI joints. PO changes in the pelvis . No instability on flexion and extension. No change in alignment since the prior study. Narrative 12/01/2020 10:18 AM CDT EXAM: ??DX LUMBAR SPINE 4+ VIEWS Procedure Note Frances Fair M.D. - 12/01/2020For matting of this note might be different from the original. EXAM: DX LUMBAR SPINE 4+ VIEWS IMPRESSION: Compared to an outside x-ray of 0. Posterior robert and pedicle screw fixation L3 through L5 wit h bone grafting. Grade III-IV anterior spondylolisthesis of L5 on S1. Lumbosacr al facet arthritis. Degenerative changes both SI joints. PO changes in the pelvis . No instability on flexion and extension. No change in alignment since the prior study. Maria Teresa DONOHUE DIAGNOSTIC IMAGING PROCE ALIRIO documented in this encounter Visit Diagnoses Diagnosis Stenosis Spinal documented in this encounter
--- OUTSIDE RECORDS SUMMARY | 2022-04-23 15:44 | XMS_ITS | Encounter Summary ---
:1970 Author Organization [facility] Address [address] [place] [address] Care Team Providers Name Role Phone Unavailable Primary Care Provider Unavailable Reason for Visit Outpatient (Routine) - Closed Specialty Diagnoses / Procedures Referred By Contact Refer red To Contact Orthopedic Surgery Maria Teresa Villanueva M .D. [facility] [address] [place] [address] Referral ID Status Reason Start Date Expiration Date Visits Requ ested Visits Authorized [id number] Closed 12/15/2019 12/14/2020 1 1 Encounter Details Date Type Department Care Team Description 12/01/2020 Office Visit Department of Steve Jesus (Primary Dx); Orthopedic Surgery ashley Haskins M.D. Laminectomy Lumbar Status [place], [place] [address] [facility] [address] [place] [phone] Social History Tobacco Use Types Packs/Day Years [...] How often do you attend religious or worship More than 4 time s per year [...] place to sleep or slept in a fci (including now)? Education Answer Date Recorded What is the highest level of school Master's degree (e.g., M A, MS, 08/08/2019 you have completed or the highest Anika, MEd, PERFORMANCE MAKEUP ARTIST, SINDY) degree you have received? Sex Assigned at Date Recorded Female 03/04/2018 7:21 PM CDT documented as of this encounter Progress Notes Steve Jesus M.D. - 12/01/2020 10:00 AM CDT NAME: Josie Booker : 1970 TODAY'S DATE: 12/01/20 Pain reported: 0/10 - Denies pain CHIEF COMPLAINT: 15 months HISTORY: Josie Booker is a 50 y.o. female who comes in today for follow up status post L3-4 decompression and extension of previous L4-S1 fusion on 08/12/19 for continued LBP and L>R LE pain andnumbness/tingling. She has been feeling well since surgery, her lower extremity pain and numbness has resolved. Overall she is very happy with the outcome of her back surgery. She notes about a month ago she had a double hernia repair. She has also been treated for TMJ that she would like Dr. Jesus is insight on. Answers for HPI/ROS submitted by the patient on 12/12/2019 Fatigue: Yes Feeling nervous, anxious or on edge: Yes NEUROLOGICAL: Motor: No. Sensory: No. Bladder: No. Bowel: No. Balance: No Manual Dexterity: No. 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 No chest pain or shortness of breath. Genitourinary: Positive for decreased libido. Musculoskeletal: Positive for arthralgias, back pain, pain or stiffness in the joints and muscle pain/stiffness. Neurological: Positive for numbness or shooting pain in hands, arms, legs, or feet, headaches and weakness in arms or legs. Psychiatric/Behavioral: Positive for decreased libido. The following systems were negative: Constitutional, Skin, Eyes, ENT, CV, Respiratory, GI, Hematologic PHYSICAL EXAM: GENERAL: Alert, oriented, in no apparent distress. Handedness: Right-handed Skin: Prior incision well healed: (Posterior midline). Motor: Lower Extremity: Left Right Iliopsoas: 12/06 12/06 Quadriceps: 12/06 12/06 Tibialis Ant: 12/06 12/06 EHL: 12/06 12/06 Gastrocs: 12/06 12/06 Hamstrings: 12/06 12/06 IMAGING: EXAM: DX LUMBAR SPINE 4+ VIEWS ?? IMPRESSION: Compared to an outside x-ray of 03/27/2020. Posterior robert and pedicle screw fixation L3 through L5 with bone grafting. Grade III-IV anterior spondylolisthesis of L5 on S1. Lumbosacral facet arthritis. Degenerative changes both SI joints. PO changes in the pelvis. No instability on flexion and extension. No change in alignment since the prior study. ASSESSMENT: #1 Stenosis Spinal #2 Laminectomy Lumbar Status Post Josie Booker is a 50 y.o. female who is now 15 months s/p L3-4 decompression with extension ofprior L4-S1 fusion on 08/12/19. Her preop BLE symptoms have resolved and she is healing well from thatstandpoint. We are very happy with her progress to this point. We discussed she could see changes in strength and stamina out to 2 years following her surgery. As regarding her TMJ the recommendations that she has been given are reasonable. She just needs to decide if they fit with the treatment plan she is looking at. PLAN: 1. Continue to stay active. She is activity as tolerated at this point. 2. Follow up on a PRN bases. 3. All of her questions were answered and she is comfortable with the plan. She knows to contact theclinic if any questions should arise. Reyna Sanchez R.N. The above history, physical, imaging, impression and plan were discussed with Dr. Jesus who waspresent and was in agreement. Kindly CC the following care team colleagues: PCP: No primary care provider on file. Answers for HPI/ROS submitted by the patient on 11/26/2020 Sinus congestion: Yes documented in this encounter Plan of Treatment Not on filedocumented as of this encounter Visit Diagnoses Diagnosis Stenosis Spinal - Primary Laminectomy Lumbar Status Post documented in this encounter
--- OUTSIDE RECORDS SUMMARY | 2022-04-23 15:44 | XMS_ITS | Encounter Summary ---
:1970 Author Organization [facility] Address [address] [place] [address] Care Team Providers Name Role Phone Unavailable Primary Care Provider Unavailable Encounter Details Date Type Department Care Team Description 06/15/2021 Orders Only RST PCP [facility] Breonna Montes M.D. [address] [place], [place] [phone] (Wo rk) Social History Tobacco Use Types [...] or relatives? How often do you attend buddhism or mandaeism More than 4 time s per year 11/30/2021 services? Do you belong to any clubs or organizations Yes 11/30/2021 such as buddhism groups, unions, fraternal or athletic groups, or [...] highest level of school Master's degree (e.g., Divine Iglesias MS, 08/08/2019 you have completed or the highest Anika, Tomas, ASSESSMENT NURSE, SINDY) degree you have received? Sex Assigned at Date Recorded Female 03/04/2018 7:21 PM CDT documented as of this encounter Plan of Treatment Not on filedocumented as of this encounter Visit Diagnoses Not on filedocumented in this encounter
--- OUTSIDE RECORDS SUMMARY | 2022-04-23 15:44 | XMS_ITS | Encounter Summary ---
:1970 Author Organization [facility] Address [address] [place] [address] Care Team Providers Name Role Phone Unavailable Primary Care Provider Unavailable Encounter Details Date Type Department Care Team Description 12/04/2021 Hospital Encounter Department of Lorena, Nakia Johnson lgia; Laboratory Medicine Kathy Mi, M.S . Mass Axilla Left; and Pathology, [address] [facility] Pain Back Thoracic; [facility], in [place], [place] Pain Ba ck; [place], [id number] Screening Osteoporosis; [place] [phone] Gastroesophageal Reflux Dise ase; [address] [facility] (Work) Fatigue [place], [place] [phone] (Fax) [phone] Social History Tobacco Use Types Packs/Day Years [...] or relatives? How often do you attend anabaptist or confucianist More than 4 time s per year 11/30/2021 services? Do you belong to any clubs or organizations Yes 11/30/2021 such as anabaptist groups, unions, fraternal or athletic groups, or school groups? How often do you attend meetings of the More than 4 times r year 11/30/2021 clubs or organizations you [...] level of school Master's degree (e.g., Divine Iglesias, MS, 08/08/2019 you have completed or the highest Anika, MEd, BRAKE OPERATOR, SINDY) degree you have received? Sex [...] Procedure Name Priority Date/Time Associated Comments Diagnosis MONOCLONAL GAMMOPATHY Routine 12/04/2021 7:27 Mass Axill a Left Results for DIAGNOSTIC, S AM CDT Fibromyalgia this procedure Pain Back Thorac ic are in the Pain Back results Screening section. Osteoporosis Gastroesophageal Reflux Disease Fatigue TX ORGANIC ACID 1 QUANT 2 Routine 12/04/2021 7:27 Results for AM CDT this procedure are in the results section. PERNICIOUS ANEMIA CASCADE, S Routine 12/04/2021 7:27 Mas s Axilla Left Results for AM CDT Fibromyalgia this procedure Pain Back Thorac ic are in the Pain Back results Screening section. Osteoporosis Gastroesophageal Reflux Disease Fatigue CELIAC DISEASE SEROLOGY Routine 12/04/2021 7:27 Mass Axi lla Left Results for CASCADE, S AM CDT Fibromyalgia this procedure Pain Back Thorac ic are in the Pain Back results Screening section. Osteoporosis Gastroesophageal Reflux Disease Fatigue AB TO EXTRACTABLE NUCLEAR AG Routine 12/04/2021 7:27 Mas s Axilla Left Results for EVAL, S AM CDT Fibromyalgia this procedure Pain Back Thorac ic are in the Pain Back results Screening section. Osteoporosis Gastroesophageal Reflux Disease Fatigue NT-PRO B-TYPE NATRIURETIC Routine 12/04/2021 7:27 Mass A xilla Left Results for PEPTIDE (BNP), S AM CDT Fibromyalgia this procedure Pain Back Thorac ic are in the Pain Back results Screening section. Osteoporosis Gastroesophageal Reflux Disease Fatigue TISSUE TRANSGLUTAMINASE Routine 12/04/2021 7:27 R esults for (TTG) AB, IGA, S AM CDT this proced ure are in the results section. CONNECTIVE TISSUE DISEASE Routine 12/04/2021 7:27 Fibromyalgia Results for CASCADE, PERI, S AM CDT this proce dure are in the results section. ALDOLASE, S Routine 12/04/2021 7:27 Mass Axilla Left Results for AM CDT Fibromyalgia this procedure Pain Back Thorac ic are in the Pain Back results Screening section. Osteoporosis Gastroesophageal Reflux Disease Fatigue 25-HYDROXYVITAMIN D2 AND D3, Routine 12/04/2021 7:27 Mas s Axilla Left Results for S AM CDT Fibromyalgia this procedure Pain Back Thorac ic are in the Pain Back results Screening section. Osteoporosis Gastroesophageal Reflux Disease Fatigue DEHYDROEPIANDROSTERONE Routine 12/04/2021 7:27 Fibromyalgia Re sults for SULFATE (DHEA-S) LEVEL, S AM CDT th is procedure are in the results section. SEDIMENTATION RATE, B Routine 12/04/2021 7:27 Mass Axill a Left Results for AM CDT Fibromyalgia this procedure Pain Back Thorac ic are in the Pain Back results Screening section. Osteoporosis Gastroesophageal Reflux Disease Fatigue PROTHROMBIN TIME (PT), P Routine 12/04/2021 7:27 Mass Ax illa Left Results for AM CDT Fibromyalgia this procedure Pain Back Thorac ic are in the Pain Back results Screening section. Osteoporosis Gastroesophageal Reflux Disease Fatigue D-DIMER, P Routine 12/04/2021 7:27 Mass Axilla Left Results for AM CDT Fibromyalgia this procedure Pain Back Thorac ic are in the Pain Back results Screening section. Osteoporosis Gastroesophageal Reflux Disease Fatigue CBC WITH DIFFERENTIAL, B Routine 12/04/2021 7:27 Mass Ax illa Left Results for AM CDT Fibromyalgia this procedure Pain Back Thorac ic are in the Pain Back results Screening section. Osteoporosis Gastroesophageal Reflux Disease Fatigue RHEUMATOID FACTOR, S/P Routine 12/04/2021 7:27 Mass Axil la Left Results for AM CDT Fibromyalgia this procedure Pain Back Thorac ic are in the Pain Back results Screening section. Osteoporosis Gastroesophageal Reflux Disease Fatigue C-REACTIVE PROTEIN (CRP), Routine 12/04/2021 7:27 Mass A xilla Left Results for S/P AM CDT Fibromyalgia this procedure Pain Back Thorac ic are in the Pain Back results Screening section. Osteoporosis Gastroesophageal Reflux Disease Fatigue T4 (THYROXINE), FREE, S Routine 12/04/2021 7:27 Mass Axi lla Left Results for AM CDT Fibromyalgia this procedure Pain Back Thorac ic are in the Pain Back results Screening section. Osteoporosis Gastroesophageal Reflux Disease Fatigue FERRITIN, S Routine 12/04/2021 7:27 Mass Axilla Left Results for AM CDT Fibromyalgia this procedure Pain Back Thorac ic are in the Pain Back results Screening section. Osteoporosis Gastroesophageal Reflux Disease Fatigue CREATINE KINASE (CK), S Routine 12/04/2021 7:27 Mass Axi lla Left Results for AM CDT Fibromyalgia this procedure Pain Back Thorac ic are in the Pain Back results Screening section. Osteoporosis Gastroesophageal Reflux Disease Fatigue CORTISOL, S Routine 12/04/2021 7:27 Mass Axilla Left Results for AM CDT Fibromyalgia this procedure Pain Back Thorac ic are in the Pain Back results Screening section. Osteoporosis Gastroesophageal Reflux Disease Fatigue BILIRUBIN DIRECT, S/P Routine 12/04/2021 7:27 Mass Axill a Left Results for AM CDT Fibromyalgia this procedure Pain Back Thorac ic are in the Pain Back results Screening section. Osteoporosis Gastroesophageal Reflux Disease Fatigue LIPID PANEL, S Routine 12/04/2021 7:26 Mass Axilla Left Results for AM CDT Fibromyalgia this procedure Pain Back Thorac ic are in the Pain Back results Screening section. Osteoporosis Gastroesophageal Reflux Disease Fatigue THYROID FUNCTION CASCADE, S Routine 12/04/2021 7:26 Fibromyalg ia Results for AM CDT this procedure are in the results section. IRON AND TOT IRON-BINDING Routine 12/04/2021 7:26 Mass A xilla Left Results for CAPACITY, S/P AM CDT Fibromyalgia this procedure Pain Back Thorac ic are in the Pain Back results Screening section. Osteoporosis Gastroesophageal Reflux Disease Fatigue COMPREHENSIVE METABOLIC Routine 12/04/2021 7:26 Mass Axi lla Left Results for PANEL, S/P AM CDT Fibromyalgia this procedure Pain Back Thorac ic are in the Pain Back results Screening section. Osteoporosis Gastroesophageal Reflux Disease Fatigue documented in this encounter Results Methylmalonic Acid (MMA), Quantitative, Serum (12/04/2021 7:27 AM CDT) Analysis Performed At Patho logist Time Signature Methylmalonic 0.29 <=0.40 12/06/2021 DTL Acid, QN, S nmol/mL 9:41 AM CDT Comment: No cellular B-12 deficiency. ----ADDITIONAL INFORMATION---- This test was developed and its performa nce characteristics determined by [facility] in a manner consistent with CLIA requirements. This test has not been cleared or approved by the U.[place]. Aubrey d and Drug Administration. Specimen Anatomical Collection Method Collection Time Receive d Time (Source) Location / / Volume Laterality Blood 12/04/2021 7:27 AM 2 CDT 12:52 PM CDT Mu Kong D.O. LAB BLOOD NON ADD-ON Performing Organization Address City/[facility]/ZIP Code Phon e Number [facility] - [address] [place] [address] 55 [address] [place] [address] Laboratories-[address] tTG (Tissue Transglutaminase), Antibody, IgA (12/04/2021 7:27 AM CDT) Patholo gist Method Time Signature Tissue <1.2 <4.0 12/04/2021 [facility] Transglutaminase Ab, (Negative 4:29 PM CDT IgA, S ) U/mL Specimen Anatomical Collection Method Collection Time Receive d Time (Source) Location / / Volume Laterality Blood 12/04/2021 7:27 AM 2 CDT 11:35 AM CDT Mu Harmon.Silvestre. LAB BLOOD ADD-ON Performing Organization Address City/[facility]/ZIP Code Phon e Number [facility] [address] [place], [place] [address] [facility] CENTER [facility] [place] [address] Laboratory Medicine and Pathology [address] [place] Sedimentation Rate (12/04/2021 7:27 AM CDT) Analysis Performed At Patho logist Time Signature Sedimentation 2 2 - 22 12/04/2021 DTL Rate, B mm/h 8:52 AM CDT Specimen Anatomical Collection Method Collection Time Receive d Time (Source) Location / / Volume Laterality Blood (Blood, 12/04/2021 7:27 AM 12/05/19 7:49 Venous) CDT AM CDT Mu Kong D.O. LAB BLOOD ADD-ON Performing Organization Address City/[facility]/ZIP Code Phon e Number [facility] - [address] [place], [place] 55 05 [place] [address] Laboratories-[facility] [address] Rheumatoid Factor (12/04/2021 7:27 AM CDT) athologist Signature Rheumatoid <15 <15 IU/mL 12/04/2021 [facility] Factor, S 11:36 AM CDT Specimen Anatomical Collection Method Collection Time Receive d Time (Source) Location / / Volume Laterality Blood (Blood, 12/04/2021 7:27 AM 12/05/19 Venous) CDT 11:10 AM CDT uM Kong D.O. LAB BLOOD ADD-ON Performing Organization Address City/[facility]/ZIP Code Phon e Number [facility] [address] [place], [place] [address] SUPPORT CENTER [facility] [place] [address] Laboratory Medicine and Pathology [address] [place] Prothrombin Time (PT) (12/04/2021 7:27 AM CDT) athologist Signature Prothrombin 10.5 9.4 - 12.5 [...] Organization Address City/State/ZIP Code Phon e Number [facility] - [address] [place], [place] [address] [facility] [place] [address] Laboratories-[facility] 200 [facility] Monoclonal Gammopathy Diagnostic (12/04/2021 7:27 AM CDT) [facility] Method Time Signature Therapeutic Unspecified 12/04/2021 [facility] Antibody 10:26 AM Administered? CDT Total Protein, 7.1 6.3 - 7.9 12/04/2021 [facility] S g/dL 11:01 AM CDT [place] Free 1.57 0.3300 - 12/04/2021 [facility] Light Chain, S 1.94 mg/dL 11:58 AM CDT Lambda Free 2.14 0.5700 - 12/04/2021 [facility] Light Chain, S 2.63 mg/dL 11:57 AM CDT [place]/Lambda 0.7336 0.2600 - 12/04/2021 [facility] FLC Ratio [...] AM CDT Isotype M-protein No monoclonal 12/05/2021 [facility] Isotype protein 7:52 AM CDT MALDI-TOF MS detected. Comment: ----ADDITIONAL INFORMATION---- The submitted sample was assayed by five separate immunopurifications for IgG, IgA, IgM, kappa and lambda. ??The r esult reflects the findings of either no monoclonal protein detected or those monoclonal immunoglobulins that were detected. This test was developed and its performa nce characteristics determined by [facility] in a manner consistent with CLIA requirements. This test has not been cleared or approved by the U.[place]. Aubrey d and Drug Administration. Specimen Anatomical Collection Method Collection Time Receive d Time (Source) Location / / Volume Laterality Blood (Blood, 12/04/2021 7:27 AM 12/05/19 Venous) CDT 10:28 AM CDT Narrative [facility] R - 12/05/2021 7:52 AM CDT Specimen Information: Specimen ID: [id number] Specimen Type: Blood Specimen Collection Start Date: 2 ??7:27 AM Specimen Received Date: 12/04/2021 10:28 AM Specimen ID: [id number] Specimen Type: Blood Specimen Collection Start Date: 2 ??7:27 AM Specimen Received Date: 12/04/2021 10:25 AM Mu Kong D.O. LAB BLOOD ADD-ON Performing Organization Address City/State/ZIP Code Phon e Number [facility] [address] [place] [id number] [address] [place] [address] [place] [address] Laboratory Medicine and Pathology [address] [place] [address] Dr. CORREA CRP (C-Reactive Protein) (12/04/2021 7:27 AM CDT) athologist Signature C-Reactive <3.0 <=8.0 mg/L 12/04/2021 [facility] Protein (CRP), 2:09 PM CDT S Specimen Anatomical Collection Method Collection Time Receive d Time (Source) Location / / Volume Laterality Blood (Blood, 12/04/2021 7:27 AM 12/05/19 22 1:16 Venous) CDT PM CDT Mu Kong D.O. LAB BLOOD ADD-ON Performing Organization Address City/[facility]/[place]IP [facility] [place] [facility] [place] [facility] - [address] [place], [place] [address] [place] [address] [facility] 200 [facility] Cortisol (12/04/2021 7:27 AM CDT) P athologist Signature Cortisol AM 10 7 - 25 12/04/2021 DTL Result mcg/dL 1:06 PM CDT Specimen Anatomical Collection Method Collection Time Receive d Time (Source) Location / / Volume Laterality Blood (Blood, 12/04/2021 7:27 AM 12/05/19 Venous) CDT 12:26 PM CDT Mu Kong D.O. LAB BLOOD ADD-ON Performing Organization Address City/[facility]/ZIP [facility] [place] Number [facility] - [address] CK (Creatine Kinase) (12/04/2021 7:27 AM CDT) P athologist Signature Creatine Kinase 97 26 - 192 12/04/2021 DTL (CK), S U/L 2:09 PM CDT Specimen Anatomical Collection Method Collection Time Receive d Time (Source) Location / / Volume Laterality Blood (Blood, 12/04/2021 7:27 AM 12/05/19 22 1:16 Venous) CDT PM CDT Mu Kong D.O. LAB BLOOD ADD-ON Performing Organization Address City/[facility] Phon e Number [facility] - [address] [place], [place] [address] [place] [address] Celiac Disease Serology [place] (12/04/2021 7:27 AM CDT) Component Value Ref Test Analysis Performed Pathologis t Range Method Time At Signature Immunoglobulin A 117 61 - 356 12/04/2021 [facility] (IgA), S mg/dL 11:28 AM CDT Celiac Disease Negative serology. Celiac di sease unlikely. However, approximately 10% of 12/04/2021 [facility] Interpretation patients with celiac disease are seronegative. Also, patients who are already 10:22 PM adhering to a gluten-free diet may be seronegative. If hema iac disease is CDT highly clinically suspected, consider HLA-DQ typing. Specimen Anatomical Collection Method Collection Time Receive d Time (Source) Location / / Volume Laterality Blood (Blood, 12/04/2021 7:27 AM 12/05/19 22 Venous) CDT 10:25 AM CDT Narrative [facility] SUPPORT SAQIBE R - 12/04/2021 10:22 PM CDT Specimen Information: Specimen ID: [id number] Specimen Type: Blood Specimen Collection Start Date: ??7:27 AM Specimen Received Date: 12/04/2021 10:25 AM Specimen ID: [id number] Specimen Type: Blood Specimen Collection Start Date: 2 ??7:27 AM Specimen Received Date: 12/04/2021 10:28 AM Mu Kong D.O. LAB BLOOD ADD-ON Performing Organization Address City/State/ZIP Code Phon e Number [facility] [address] [place] [address] [place] [address] Laboratory Medicine and Pathology [address] [place] (ABNORMAL) CBC with Differential, Blood (12/04/2021 7:27 AM CDT) [facility] Method Time Signature Hemoglobin 15.2 (H) 11.6 [...] Organization Address City/State/ZIP Code Phon e Number [facility] - [address] [place], [place] [address] [facility] [place] [address] Laboratories-[facility] 200 [facility] Antibody to Extractable Nuclear Antigen Evaluation (12/04/2021 7:27 AM CDT) P athologist Signature SS-A/Ro Ab, <0.2 <1.0 12/04/2021 [facility] IgG, S (Negative) 1:06 PM CDT U SS-B/La Ab, <0.2 <1.0 12/04/2021 [facility] IgG, S (Negative) 1:06 PM CDT U Sm Ab, IgG, S <0.2 <1.0 12/04/2021 [facility] (Negative) 1:05 PM CDT U TOOL SPECIALIST Ab, IgG, S 0.4 <1.0 12/04/2021 [facility] [...] Organization Address City/State/ZIP Code Phon e Number [facility] [address] [place], [place] [address] [facility] [place] [address] Laboratory Medicine and Pathology [address] [place] Aldolase (12/04/2021 7:27 AM CDT) athologist Signature Aldolase, S 3.6 <7.7 U/L 12/04/2021 DT 10:11 AM CDT Specimen Anatomical Collection Method Collection Time Receive d Time (Source) Location / / Volume Laterality Blood (Blood, 12/04/2021 7:27 AM 12/05/19 22 9:17 Venous) CDT AM CDT Mu Kong D.O. LAB BLOOD NON ADD-ON Performing Organization Address City/[facility]/ZIP Code Phon e Number [facility] - [address] [place], [place] [address] [place] [address] Laboratories-[facility] 200 [facility] 25-Hydroxyvitamin D2 and D3 (12/04/2021 7:27 AM CDT) athologist Signature 25-Hydroxy D2 <4.0 ng/mL 12/04/2021 [facility] 11:27 PM CDT 25-Hydroxy D3 34 ng/mL 12/04/2021 [facility] 11:27 PM CDT 25-Hydroxy D 34 ng/mL 12/04/2021 [facility] Total 11:27 PM CDT Comment: ----REFERENCE VALUE---- 25-HYDROXY D TOTAL (D2+D3) Optimum level s in the healthy population are 20-50, patients with bone disease may benefit from higher levels within this r beatriz. ----ADDITIONAL INFORMATION---- This test was developed and its performa nce characteristics determined by [facility] in a manner consistent with CLIA requirements. This test has not been cleared or approved by the U.[place]. Aub[place] d and Drug Administration. Specimen Anatomical Collection Method Collection Time Receive d Time (Source) Location / / Volume Laterality Blood (Blood, 12/04/2021 7:27 AM 12/05/19 Venous) CDT 10:53 AM CDT Mu Kong D.O. LAB BLOOD ADD-ON Performing Organization Address City/[facility]/ZIP Code Phon e Number [facility] [address] [place], [place] [address] SUPPORT [facility] [place] [address] Laboratory Medicine and Pathology [address] [place] T4 (Thyroxine), Free (12/04/2021 7:27 AM CDT) athologist Signature T4 (Thyroxine), 1.3 0.9 - 1.7 12/04/2021 [facility] Free, S ng/dL 2:09 PM CDT Specimen Anatomical Collection Method Collection Time Receive d Time (Source) Location / / Volume Laterality Blood (Blood, 12/04/2021 7:27 AM 12/05/19 1:16 Venous) CDT PM CDT Mu Kong D.O. LAB BLOOD ADD-ON Performing Organization Address City/[facility]/ZIP Code Phon e Number [facility] - [address] [place], [place] [address] [facility] [place] [place] [address] Laboratories-[facility] [address] Pernicious Anemia [place] (12/04/2021 7:27 AM CDT) athologist Signature Vitamin B12 400 180 - 914 12/04/2021 [facility] Assay, S ng/L 12:52 PM CDT Comment: B-12 <400; MMA test was perform ed. Specimen Anatomical Collection Method Collection Time Receive d Time (Source) Location / / Volume Laterality Blood (Blood, 12/04/2021 7:27 AM 12/05/19 22 Venous) CDT 11:01 AM CDT Mu Kong D.O. LAB BLOOD NON ADD-ON Performing Organization Address City/State/ZIP Code Phon e Number [facility] [address] [place], [place] [address] [facility] [place] [address] Laboratory Medicine and Pathology [address] [place] NT-Pro B-Type Natriuretic Peptide (BNP) (12/04/2021 7:27 AM CDT) [facility] NT-Pro BNP 32 <=155 pg/mL 12/04/2021 DTL [...] Laterality Blood (Blood, 12/04/2021 7:27 AM 12/05/19 1:16 Venous) CDT PM CDT Mu Kong D.O. LAB BLOOD ADD-ON Performing Organization Address City/[facility]/ZIP Code Phon e Number [facility] - [address] [place], [place] [address] [place] [id number] [place] [address] Ferritin (12/04/2021 7:27 AM CDT) [facility] Ferritin, S 95 11 - 307 12/04/2021 DTL mcg/L 1:16 PM CDT Specimen Anatomical Collection Method Collection Time Receive d Time (Source) Location / / Volume Laterality Blood (Blood, 12/04/2021 7:27 AM 12/05/19 Venous) CDT 12:26 PM CDT Mu Kong D.O. LAB BLOOD ADD-ON Performing Organization Address City/[facility] Phon e Number [facility] - [address] [place], [place] [address] [facility] [place]TM[place], [place] [address] [place] [address] D-Dimer (12/04/2021 7:27 AM CDT) P athologist Signature D-Dimer, P 249 <=500 ng/mL [...] D.O. LAB BLOOD ADD-ON Performing Organization Address City/[facility] Phon e Number [facility] - [address] [place], [place] [address] [place] [address] Bilirubin, Direct (12/04/2021 7:27 AM CDT) athologist Signature Bilirubin, <0.2 0.0 - 0.3 12/04/2021 DT Direct, S mg/dL 2:09 PM CDT Specimen Anatomical Collection Method Collection Time Receive d Time (Source) Location / / Volume Laterality Blood (Blood, 12/04/2021 7:27 AM 12/05/19 1:16 Venous) CDT PM CDT Mu Kong D.O. LAB BLOOD ADD-ON Performing Organization Address City/State/[facility] Code Phon e Number [facility] - [address] [place], [place] [address] [place] [address] Dehydroepiandrosterone Sulfate (DHEA-S) (12/04/2021 7:27 AM CDT) Component Value Ref Test Analysis Performed At [facility] gist Range Method Time Signature Dehydroepiandrosterone 34 16 - 195 12/04/2021 [facility] Sulfate, S mcg/dL 11:26 AM CDT Specimen Anatomical Collection Method Collection Time Receive d Time (Source) Location / / Volume Laterality Blood (Blood, 12/04/2021 7:27 AM 05/03/20 22 Venous) CDT 10:34 AM CDT Nakia Carrillo M.D., M.S. LAB BLOOD ADD-ON Performing Organization Address City/[facility]/ZIP Code Phon e Number [facility] [address] [place], [place] [address] [address] [facility] [place] [address] Laboratory Medicine and Pathology [address] [place] [address] Dr. CORRE[place] Connective Tissue Diseases [place] (12/04/2021 7:27 AM CDT) athologist [facility] Antinuclear Ab, 0.3 <=1.0 12/04/2021 [facility] S (Negative) 4:02 PM CDT U Comment: ----ADDITIONAL INFORMATION---- Method: Enzyme-linked immunoassay using HEp-2 nuclear extract supplemented with purified antig ens. Cyclic Citrullinated <15.6 <20.0 (Negative) U 12/04/2021 5:11 PM [facility] Peptide Ab, S CDT Interpretation SEE COMMENT 12/04/2021 5:11 PM [facility] CDT Comment: Tests for antibodies to dsDNA and RAMÓN an tigens are not performed automatically unless the MARIUM r esult is > or = 3.0 U. ??Studies performed at [facility] indicate that positive MARIUM results <3.0 U are rarely a ccompanied by positive second order tests. Specimen Anatomical Collection Method Collection Time Receive d Time (Source) Location / / Volume Laterality Blood (Blood, 12/04/2021 7:27 AM 12/05/19 Venous) CDT 10:25 AM CDT Nakia Carrillo M.D., M.S. LAB BLOOD ADD-ON Performing Organization Address City/[facility]/ZIP Code Phon e Number [facility] [address] [place], [place] [address] SUPPORT CENTER [facility] [place] [address] Laboratory Medicine and Pathology [address] [place] [address] Dr. CORREA (ABNORMAL) Lipid Panel (12/04/2021 7:26 AM CDT) athologist [facility] Cholesterol, 269 (H) mg/dL 12/04/2021 DTL Total [...] Organization Address City/State/ZIP Code Phon e Number [facility] - [address] [place], [place] [address] [facility] [place] [address] Laboratories-[facility] 200 [facility] (ABNORMAL) Comprehensive Metabolic Panel (12/04/2021 7:26 AM [...] 12/04/2021 DTL Black/ mL/min/BSA 3:38 PM CDT German Comment: ----ADDITIONAL INFORMATION---- Estimated GFR calculated using [...] Laterality Blood (Blood, 12/04/2021 7:26 AM 12/05/19 22 2:29 Venous) CDT PM CDT Mu Kong D.O. LAB BLOOD ADD-ON Performing Organization Address City/State/ZIP Code Phon e Number [facility] - [address] [place], [place] [address] [place] [address] [place] [address] [facility] 200 [facility] Iron and Total Iron-Binding Capacity (12/04/2021 7:26 [...] D.O. LAB BLOOD ADD-ON Performing Organization Address City/[facility] Code Phon e Number [facility] - [id number] [place] [address] Thyroid Function [place] (12/04/2021 7:26 AM CDT) athologist Signature TSH, Sensitive 1.6 0.3 - 4.2 12/04/2021 DTL mIU/L 3:28 PM CDT Specimen Anatomical Collection Method Collection Time Receive d Time (Source) Location / / Volume Laterality Blood (Blood, 12/04/2021 7:26 AM 12/05/19 22 1:13 Venous) CDT PM CDT Nakia Carrillo M.D., M.S. LAB BLOOD ADD-ON Performing Organization Address City/State/ZIP Code Phon e Number [facility] - [address] [place], [place] [address] [place] [id number] [place] [address] documented in this encounter Visit Diagnoses Diagnosis Fibromyalgia Mass Axilla Left Pain Back Thoracic Pain Back Screening Osteoporosis Gastroesophageal Reflux Disease Fatigue documented in this encounter
--- OUTSIDE RECORDS SUMMARY | 2022-04-23 15:44 | XMS_ITS | Encounter Summary ---
:[address] [facility] Address [address] [place] [address] Care Team Providers Name Role Phone Unavailable Primary Care Provider Unavailable Encounter Details Date Type Department Care Team Description 12/04/2021 Hospital Encounter Department of Saadiq, Rayya Mass Ax illa Left; Laboratory Medicine A, D.O. Fibromyalgia; and Pathology, [address] [facility] Pain Back Thoracic; [facility], in Pain Ba ck; [place], [address] Screening Osteoporosis; [place] [phone] Gastroesophageal Reflux Dise ase; [address] [facility] (Work) Fatigue [place], [place] [phone] [address] (Fax) [phone] Social History Tobacco Use Types Packs/Day Years [...] or relatives? How often do you attend evangelical or church More than 4 time s per year 11/30/2021 services? Do you belong to any clubs or organizations Yes 11/30/2021 such as evangelical groups, unions, fraternal or athletic groups, or [...] place to sleep or slept in a senior living (including now)? Education Answer Date Recorded What is the highest level of school Master's degree (e.g., Divine Iglesias, MS, 08/08/2019 you have completed or the highest Anika, MEd, BUS INFO CONSULTANT, SINDY) degree you have received? Sex [...] Procedure Name Priority Date/Time Associated Comments Diagnosis DIPSTICK, U Routine 12/04/2021 7:35 AM Results f or this CDT procedure are i n the results section. MICROSCOPIC AUTOMATED Routine 12/04/2021 7:35 AM Results for this CDT procedure are i n the results section. PH, U Routine 12/04/2021 7:35 AM Results f or this CDT procedure are i n the results section. OSMOLALITY, U Routine 12/04/2021 7:35 AM Results for this CDT procedure are i n the results section. URINALYSIS WITH Routine 12/04/2021 7:35 AM Mass Axilla L eft Results for this MICROSCOPIC CDT Fibromyalgia procedure are in Pain Back Thorac ic the results Pain Back section. Screening Osteoporosis Gastroesophageal Reflux Disease Fatigue documented in this encounter Results Dipstick, Urine (12/04/2021 7:35 AM CDT) [facility] gist Method Time Signature Hemoglobin, Negative Negative 12/04/2021 DTL QL, U 8:58 AM CDT Leukocyte Negative Negative 12/04/2021 DTL Esterase, U 8:58 AM CDT Nitrite, U Negative Negative 12/04/2021 DTL 8:58 AM CDT Ketone, U Negative Negative 12/04/2021 DTL mg/dL 8:58 AM CDT Glucose, U Negative Negative 12/04/2021 DTL mg/dL 8:58 AM CDT Specimen Anatomical Collection Method Collection Time Receive d Time (Source) Location / / Volume Laterality Urine 12/04/2021 7:35 AM 2 8:20 CDT AM CDT Mu Kong D.O. LAB URINE ORDERABLES Performing Organization Address City/[facility]/ZIP [facility] Phon e Number [facility] - [address] [place] [address] [facility] Osmolality, Urine (12/04/2021 7:35 AM CDT) athologist [facility] Osmolality, U [phone] - [phone] 12/04/2021 DTL mOsm/kg 9:09 AM CDT Specimen Anatomical Collection Method Collection Time Receive d Time (Source) Location / / Volume Laterality Urine 12/04/2021 7:35 AM 2 8:20 CDT AM CDT Mu Kong D.O. LAB URINE ORDERABLES Performing Organization Address City/[facility]/ZIP [facility] Phon e Number [facility] - [address] [place] [address] [facility] pH, Urine (12/04/2021 7:35 AM CDT) athologist Signature pH, U 5.5 4.5 - 8.0 12/04/2021 9:09 DTL AM CDT Specimen Anatomical Collection Method Collection Time Receive d Time (Source) Location / / Volume Laterality Urine 12/04/2021 7:35 AM 2 8:20 CDT AM CDT Mu Kong D.O. LAB URINE ORDERABLES Performing Organization Address [facility] Phon e Number [facility] - [address] [place], [place] [address] [facility] [place] [address] Microscopic Automated (12/04/2021 7:35 AM CDT) P athologist Signature Microscopy Normal 12/04/2021 DTL 8:58 AM CDT Squamous 1-3 /hpf 12/04/2021 DTL Epithelial 8:58 AM CDT Cells, U Specimen Anatomical Collection Method Collection Time Receive d Time (Source) Location / / Volume Laterality Urine 12/04/2021 7:35 AM 2 8:20 CDT AM CDT Mu Kong D.O. LAB URINE ORDERABLES Performing Organization Address [facility] Phon e Number [facility] - [address] [place] [address] [place] [address] Urinalysis with Microscopic: Urine, Midstream (12/04/2021 7:35 AM CDT) Patholo gist Method Time Signature Source Urine, Urine, 12/04/2021 [...] D.O. LAB URINE ORDERABLES Performing Organization Address City/State/ZIP Code Phon e Number [facility] - [address] [place], [place] [address] [facility] [place] [address] Laboratories-[facility] [address] documented in this encounter Visit Diagnoses Diagnosis Mass Axilla Left Fibromyalgia Pain Back Thoracic Pain Back Screening Osteoporosis Gastroesophageal Reflux Disease Fatigue documented in this encounter
--- OUTSIDE RECORDS SUMMARY | 2022-04-23 15:44 | XMS_ITS | Encounter Summary ---
:1970 Author Organization [facility] Address [address] [place] [address] Care Team Providers Name Role Phone Unavailable Primary Care Provider Unavailable Encounter Details Date Type Department Care Team Description 03/06/2021 Clinical Communication Department of Steve Jesus Orthopedic Surgery ashley Haskins M.D. [place], [place] [address] [facility] [address] [place] [phone] Social History Tobacco Use Types Packs/Day Years [...] or relatives? How often do you attend sikh or scientologist More than 4 time s per year 11/30/2021 services? Do you belong to any clubs or organizations Yes 11/30/2021 such as sikh groups, unions, fraternal or athletic groups, or [...] place to sleep or slept in a snf (including now)? Education Answer Date Recorded What is the highest level of school Master's degree (e.g., Divine Iglesias, MS, 08/08/2019 you have completed or the highest Anika, Tomas, PROMOTIONS FIRM ACCOUNTS MANAGER, SINDY) degree you have received? Sex Assigned at Date Recorded Female 03/04/2018 7:21 PM CDT documented as of this encounter Plan of Treatment Not on filedocumented as of this encounter Visit Diagnoses Not on filedocumented in this encounter
--- OUTSIDE RECORDS SUMMARY | 2022-04-23 15:44 | XMS_ITS | Encounter Summary ---
:1970 Author Organization [facility] Address [address] [place] [address] Care Team Providers Name Role Phone Unavailable Primary Care Provider Unavailable Reason for Referral Outpatient (Routine) - Closed Specialty Diagnoses / Procedures Referred By Contact Refer red To Contact Integrative Medicine Diagnoses Fibromyalgia Nakia Carrillo M.D., [facility] [address] [place] [address] Referral ID Status Reason Start Date Expiration Date Visits Requ ested Visits Authorized [id number] Closed 11/30/2021 11/30/2022 1 1 Scheduling Instructions CM Reason for Visit Reason Comments Triage Encounter Details Date Type Department Care Team Description 11/29/2021 Clinical Communication Division of General Prescheduli ng, Triage Internal Medicine in Provider [place], [place] [address] [place] [phone] Social History Tobacco Use Types Packs/Day Years [...] or relatives? How often do you attend judaism or church More than 4 time s per year 11/30/2021 services? Do you belong to any clubs or organizations Yes 11/30/2021 such as judaism groups, unions, fraternal or athletic groups, or [...] to sleep or slept in a senior care (including now)? Education Answer Date Recorded What is the highest level of school Master's degree (e.g., M A, MS, 08/08/2019 you have completed or the highest Anika, MEd, WILDLAND FIRE FIGHTER SPECIALIST, SINDY) degree you have received? Sex Assigned at Date Recorded Female 03/04/2018 7:21 PM CDT documented as of this encounter Miscellaneous Notes Telephone Encounter - Stu Sood - 11/29/2021 7:37 AM CDT Josie Booker 1970 [id number] 51 years Gender: Female Who filled out ARF: Patient?? Request: I have medical symptoms without a clear diagnosis MAIN SYMPTOM general fatigue, don't feel well, chest pain/stomach ache Description: always tired, feel bloated after I eat, chest feels tight sometimes, pain in the sternum area, pain in rib cage, chest sometimes feel tight/pressure, sometimes pain around rib cage/bra area, sometimes pain/discomfort in stomach area--hurts to push on sternum/stomach area, heart flutters sometimes or has irregular rhythm--not often, scratchy voice sometimes and have lost my voice 3 times ( said that sometimes is a symptom of acid reflux), sometimes dry cough, wake up in morning with reddish eyes Duration: 6 to 12 months Previous Eval: Yes Institution: [facility] ([place])- Dr. Rodriguez and Dr. Mullins for Endoscopy and initial consultation [facility] for swallow test [facility] for EKG due to chest pain Have had: Procedures (surgeries, colonoscopies, biopsies, etc.) Diagnosis: * Possible acid reflux and costochondritis Outcome: still in the process. They want to do another swallow test with a speech pathologist present to see what muscles do when swallowing. Expectations: I would like a second opinion. I just feel like something might be missing because I have other symptoms as well. I am not sure if they are related, but it is a bit challenging when two doctors (at [facility]) potentially have different viewpoints. ADDITIONAL - 1 lump in armpit Description: I have had a lump in my armpit since June. I had my 1st covid shot in 2020, then the booster on 2020. About 3 weeks after the shot, I got a lump about the size of a quarter--slightly bigger on the side as the shot. The lump in the armpit itches and was initially bothersome to lay on that side. I had a general doctor check the lump and she said it is most likely a reaction to the booster shot and that I should watch it. We continued to monitor it and 1 month later it hadn't gone away and still itched. They ordered a mammogram and ultrasound of the lump. The mammogram came out negative and the ultrasound didn't show anything. The radiologist said to continue to watch it and if itwas still there in a month-- that they would do a CT scan. When I called back a month later, they sent me to a general surgeon for consultation. She said it wasn't from the shot, it wasn't cancerous, basically uncertain. She didn't think there was a need to take it out, drain it, etc. I was trying to rule out if it was lipoma, cyst, cancer, etc. She said she could rule out cyst or cancer. I am worried that it is still there almost 6 months after having the booster shot. Duration: 6 to 12 months Previous Eval: Yes Institution: [facility] ([facility]) [facility] Have had: Procedures (surgeries, colonoscopies, biopsies, etc.), Images (X-Rays, CT scan, MRI scan, etc.) Diagnosis: Uncertain--- Outcome: It is basically at a stand still--just continuing to watch the lump. It is the same size, same shape, still itches. The pain to lay on that side at night is gone. Expectations: I just want to make sure I am not missing something. My mom and grandmother both had breast cancer in the armpit, so that is definitely on my mind. I just want to know what the lump actually is and whyit itches. ADDITIONAL - 2 chronic joint pain, back/neck pain Description: I have had 3 back surgeries --3 fusions and nerve decompression (one with Dr. Jesus at [facility] in August of 2019) and I am fully versed in spinal fusion, spinal care, and bone density, preservation of movement for long-term function. I have been dealing with degeneration for 15+ years. With each surgery, my pain has been reduced but with any fusion, it makes the vertebrae above and below it work that much harder. MRI imaging shows several levels with an array of degeneration, osteophytes, stenosis, spondlythesis---some mild, some moderate, a few severe. Body is always sore, muscles always tight.I go to massage therapy once a week and I never have a day without pain. The pain impacts my lifestyle on a daily basis. It is exhausting. I just want to feel better. Duration: More than 12 months Previous Eval: Yes Institution: Dr. Jesus - [facility] Dr. Dupree - [facility] Have had: Procedures (surgeries, colonoscopies, biopsies, etc.), Images (X-Rays, CT scan, MRI scan, etc.) Diagnosis: Dr. Jesus and I have discussed--I am on the arthritis train-it is just how fast train is moving Outcome: Continue to do what I can to move every day, stretch, keep weight down Expectations: I am wondering if I fall in the category of rheumatoid arthritis or if---with all these other issues--if I am missing something more systemically---rather than something orthopedic--something gastrology route---or something heart related---could all of these issues/symptoms be related some how with myimmune system? ADDITIONAL - 3 Description: Duration: Previous Eval: Institution: Have had: Diagnosis: Outcome: Expectations: ADDITIONAL - 4 Description: Duration: Previous Eval: Institution: Have had: Diagnosis: Outcome: Expectations: ADDITIONAL CONCERNS: ? LIFESTYLE MEDICINE CONSULTATION: No? CONDITIONS: Pain BOTHERED BY: Feeling nervous, anxious or on edge - Not being able to control or stop worrying - Little interest or pleasure in doing things - Feeling down, depressed, or helpless - Willing to speak to a mental health professional - PAIN LONGER THAN 3 MONTHS: Yes CARE PROVIDERS TO DATE: 4 LOWEST PAIN LAST 7 DAYS (0 to 10): 5 - Moderate pain PAIN INTERFERENCE PAST 3 MONTHS (0 to 10): 7 PAIN AREAS: NECK, Upper BACK, CHEST, ABDOMEN, Lower BACK FATIGUE A MAIN REASON FOR VISIT: FATIGUE/HOW LONG: PROBLEMS WITH SLEEP: SLEEP PROBLEMS LAST 2 WEEKS: SLEEP APNEA DIAGNOSIS: Willing to attend [facility] or [facility] appointments - Probably yes DAILY MEDS: 3 OPIOIDS: No CURRENT DIALYSIS: No CURRENT HEALTH/PAST YEAR: Fair CONFIDENCE: Agree NOT AVAILABLE: January 14, February 18, Mar 18, Apr 08 PHONE: [phone] documented in this encounter Plan of Treatment Scheduled Referrals Name Type Priority Associated Diagnoses Order S [facility] Integrative Medicine Outpatient Referral Routine Fibromyalgia Expected: - Fibromyalgia 12/04/2021, treatment program Expires: consult (clinic) 12/04/2022 documented as of this encounter Results Dehydroepiandrosterone Sulfate (DHEA-S) (12/04/2021 7:27 AM CDT) Component Value Ref Test Analysis Performed At [facility] Range Method Time Signature Dehydroepiandrosterone 34 16 - 195 12/04/2021 [facility] Sulfate, S mcg/dL 11:26 AM CDT Specimen Anatomical Collection Method Collection Time Receive d Time (Source) Location / / Volume Laterality Blood (Blood, 12/04/2021 7:27 AM 12/05/19 22 Venous) CDT 10:34 AM CDT Nakia Carrillo M.D., M.S. LAB BLOOD ADD-ON Performing Organization Address City/State/ZIP Code Phon e Number [facility] [address] [place] [address] [place] [address] Laboratory Medicine and Pathology [address] [place] [address] Dr. CORREA Connective Tissue Diseases [place] (12/04/2021 7:27 AM CDT) athologist Signature Antinuclear Ab, 0.3 <=1.0 12/04/2021 [facility] S (Negative) 4:02 PM CDT U Comment: ----ADDITIONAL INFORMATION---- Method: Enzyme-linked immunoassay using HEp-2 nuclear extract supplemented with purified antig ens. Cyclic Citrullinated <15.6 <20.0 (Negative) U 12/04/2021 5:11 PM [facility] Peptide Ab, S CDT Interpretation SEE COMMENT 12/04/2021 5:11 PM [facility] CDT Comment: Tests for antibodies to dsDNA and RAMÓN an tigens are not performed automatically unless the MARIUM r esult is > or = 3.0 U. ??Studies performed at [facility] indicate that positive MARIUM results <3.0 U are rarely a ccompanied by positive second order tests. Specimen Anatomical Collection Method Collection Time Receive d Time (Source) Location / / Volume Laterality Blood (Blood, 12/04/2021 7:27 AM 12/05/19 Venous) CDT 10:25 AM CDT Nakia Carrillo M.D., M.S. LAB BLOOD ADD-ON Performing Organization Address City/[facility] Phon e Number [facility] [address] [place] [address] [place] [address] Laboratory Medicine and Pathology [address] [place] [address] Dr. CORREA Thyroid Function [place] (12/04/2021 7:26 AM CDT) athologist Signature TSH, Sensitive 1.6 0.3 - 4.2 12/04/2021 DTL mIU/L 3:28 PM CDT Specimen Anatomical Collection Method Collection Time Receive d Time (Source) Location / / Volume Laterality Blood (Blood, 12/04/2021 7:26 AM 12/05/19 22 1:13 Venous) CDT PM CDT Nakia Carrillo M.D., M.S. LAB BLOOD ADD-ON Performing Organization Address City/State/ZIP Code Phon e Number [facility] - [address] [place], [place] [address] [facility] [place] [address] Laboratories-[facility] [address] [place] Home Overnight Oximetry (12/03/2021) Specimen (Source) Anatomical Location Collection Method / Collectio n Time Received Time / Laterality Volume 12/03/2021 Narrative [facility] - 12/04/2021 3:28 PM CD T This result has an attachment that is no t available. See PDF report for results Procedure Note Luis Enrique Bowser M.D., M.P.H. - 12/04/2021 See PDF report for results Nakia Carrillo M.D., M.S. PFT ORDERABLES Performing Organization Address City/[facility] Code Phon e Number [facility] documented in this encounter Visit Diagnoses Diagnosis Fibromyalgia - Primary Lump In Axillary Tail Of The Left Breast Fibromyalgia documented in this encounter
--- OUTSIDE RECORDS SUMMARY | 2022-04-23 15:44 | XMS_ITS | Encounter Summary ---
:1970 Author Organization [facility] Address [address] [place] [address] Care Team Providers Name Role Phone Unavailable Primary Care Provider Unavailable Encounter Details Date Type Department Care Team Description 06/13/2021 Orders Only RST PCP [facility] Breonna Montes M.D. [address] [place], [place] [phone] (Wo rk) Social History [...] or relatives? How often do you attend jainism or orthodoxy More than 4 time s per year 11/30/2021 services? Do you belong to any clubs or organizations Yes 11/30/2021 such as jainism groups, unions, fraternal or athletic groups, or [...] have completed or the highest Anika, Tomas, PEST TECHNICIAN, SINDY) degree you have received? Sex Assigned at Date Recorded Female 03/04/2018 7:21 PM CDT documented as of this encounter Plan of Treatment Not on filedocumented as of this encounter Visit Diagnoses Not on filedocumented in this encounter
--- OUTSIDE RECORDS SUMMARY | 2022-04-23 15:44 | XMS_ITS | Encounter Summary ---
:1970 Author Organization [facility] Address [address] [place] [address] Care Team Providers Name Role Phone Unavailable Primary Care Provider Unavailable Reason for Visit Appointment Request (Routine) - Closed Specialty Diagnoses / Procedures Referred By Contact Refer red To Contact Orthopedic Surgery Diagnoses Pain Back Referral ID Status Reason Start Date Expiration Date Visits Requ ested Visits Authorized [id number] Closed 04/13/2021 04/13/2022 1 1 Encounter Details Date Type Department Care Team Description 06/21/2021 Telemedicine [facility] Osteoa [facility]thritis Orthopedic Surgery in [facility] Cervical Spine (Primary [place], [place] [address] [facility]) [address] [place] [phone] Social History Tobacco Use Types Packs/Day Years [...] or relatives? How often do you attend taoist or denominational More than 4 time s per year 11/30/2021 services? Do you belong to any clubs or organizations Yes 11/30/2021 such as taoist groups, unions, fraternal or athletic groups, or [...] completed or the highest Anika, MEd, CLINICAL DERMATOLOGIST, SINDY) degree you have received? Sex Assigned at Date Recorded Female 03/04/2018 7:21 PM CDT documented as of this encounter Progress Notes Steve Jesus M.D. - 06/21/2021 1:00 PM CST Jhony's recent history, physical exam and current baseline status. She has continued with some chronic arthritic type pain and had noted while recovering from a viral illness that she was placed on prednisone and experienced a positive benefit from that we discussed that at length but due to her lowbone mineral density and the deleterious effects of chronic steroid use would not recommend this forher symptoms long-term. Reviewed her images in the seems stable in the cervical and other areas of the spine. The x-rays andthe MRI were reviewed and discussed in detail. At this time I would recommend continued active exercise programs and calcium and vitamin-D replacement. We are available in the future to discuss any changes are future developments but she certainly has a safe and stable spine at this time. Answers for HPI/ROS submitted by the patient on 06/18/2021 No general issues: Yes No eye issues: Yes Persistent hoarse voice: Yes Sinus congestion: Yes No heart issues: Yes No respiratory issues: Yes No GI issues: Yes Muscle pain/stiffness: Yes Pain or stiffness in the joints: Yes Back pain/stiffness: Yes No skin issues: Yes Numbness or shooting pain in hands, arms, legs or feet: Yes Change in sexual drive (decreased libido): Yes Feeling down, depressed, or hopeless: Yes No blood/lymph issues: Yes No urinary/reproductive issues: Yes NT CLERK documented in this encounter Plan of Treatment Not on filedocumented as of this encounter Visit Diagnoses Diagnosis Primary Osteoarthritis Cervical Spine - Primary documented in this encounter
--- OUTSIDE RECORDS SUMMARY | 2022-04-23 15:44 | XMS_ITS | Encounter Summary ---
:1970 Author Organization [facility] Address [address] [place] [address] Care Team Providers Name Role Phone Unavailable Primary Care Provider Unavailable Reason for Referral Outpatient (Routine) - Closed Specialty Diagnoses / Procedures Referred By Contact Refer red To Contact Diagnoses Mass Axilla Left Fibromyalgia Pain Back Thoracic Pain Back Screening Osteoporosis Gastroesophageal Reflux Disease Fatigue [facility] D[facility] Procedures DX Chest AP or PA and Lateral 2 Views [address] [place] [phone] Referral ID Status Reason Start Date Expiration Date Visits Requ ested Visits Authorized [id number] Closed 12/03/2021 12/03/2022 1 1 Reason for Visit Outpatient (Routine) - Closed Specialty Diagnoses / Procedures Referred By Contact Refer red To Contact Diagnoses Mass Axilla Left Fibromyalgia Pain Back Thoracic Pain Back Screening Osteoporosis Gastroesophageal Reflux Disease Fatigue Mu Kong D.O[facility] Procedures DX Chest AP or PA and Lateral 2 Views [address] [place] [address] Referral ID Status Reason Start Date Expiration Date Visits Requ ested Visits Authorized [id number] Closed 12/03/2021 12/03/2022 1 1 Encounter Details Date Type Department Care Team Description 12/04/2021 Hospital Encounter Department of [facility] Ax illa Left; Radiology, [facility] Fibromyalgia; Building, in [address] [place] [address] Pain Back Thoracic; [place], [place] Pain Back; [place] [address] Screening Osteoporosis; [address] [facility] [phone] Gastroesophageal Reflux Dise ase; [place], [place] (Work) Fatigue [phone] Social History Tobacco Use Types Packs/Day Years [...] or relatives? How often do you attend mormonism or caodaism More than 4 time s per year 11/30/2021 services? Do you belong to any clubs or organizations Yes 11/30/2021 such as mormonism groups, unions, fraternal or athletic groups, or [...] place to sleep or slept in a usp (including now)? Education Answer Date Recorded What is the highest level of school Master's degree (e.g., M A, MS, 08/08/2019 you have completed or the highest Ainka, MEd, AUTOMATIC PAD MAKING MACHINE OPERATOR, SINDY) degree you have received? [...] Name Priority Date/Time Associated Comments Diagnosis DX CHEST AP OR PA RAD - Routine 12/04/2021 8:10 Mass Axilla Le ft Results for this AND LATERAL 2 (most inpatients AM CDT Fibromyalgia procedure are in VIEWS and all Pain Back the results outpatients) Thoracic section. Pain Back Screening Osteoporosis Gastroesophageal Reflux Disease Fatigue documented in this encounter Results DX Chest AP or PA and Lateral [...] otherwise negative. [facility]IRIO documented in this encounter Visit Diagnoses Diagnosis Mass Axilla Left Fibromyalgia Pain Back Thoracic Pain Back Screening Osteoporosis Gastroesophageal Reflux Disease Fatigue documented in this encounter
--- OUTSIDE RECORDS SUMMARY | 2022-04-23 15:44 | XMS_ITS | Encounter Summary ---
:[address] [facility] Address [address] [place] [address] Care Team Providers Name Role Phone Unavailable Primary Care Provider Unavailable Encounter Details Date Type Department Care Team Description 12/03/2021 Diagnostic Division of Pulmonary Nakia Carrillo M.D ., Fibromyalgia Medicine in [facility] [address] [facility] [address] [place] [phone] (Wo rk) Social History Tobacco Use Types [...] have completed or the highest Anika, MEd, FAST FOOD SHIFT LEAD, SINDY) degree you have received? Sex Assigned at Date Recorded Female 03/04/2018 7:21 PM CDT documented as of this encounter Plan of Treatment Not on filedocumented as of this encounter Procedures Procedure Name Priority Date/Time Associated Diagnosis Comme nts PUL HOME OVERNIGHT Routine 12/03/2021 Fibromyalgia Results f or this OXIMETRY procedure are i n the results section . documented in this encounter Results PUL Home Overnight Oximetry (12/03/2021) Specimen (Source) Anatomical Location Collection Method / Collectio n Time Received Time / Laterality Volume 12/03/2021 Narrative CHARLES LOPEZ - 12/04/2021 3:28 PM CD T This result has an attachment that is no t available. See PDF report for results Procedure Note Luis Enrique Bowser M.D., M.P.H. - 12/04/2021 See PDF report for results Nakia Carrillo M.D., M.S. PFT ORDERABLES Performing Organization Address City/State/ZIP Code Phon e Number [facility] LOPEZ documented in this encounter Visit Diagnoses Diagnosis Fibromyalgia documented in this encounter
--- OUTSIDE RECORDS SUMMARY | 2022-04-23 15:44 | XMS_ITS | Encounter Summary ---
:1970 Author Organization [facility] Address [address] [place] [address] Care Team Providers Name Role Phone Unavailable Primary Care Provider Unavailable Reason for Referral Specialty Diagnoses / Procedures Referred By Contact Refer red To Contact Breonna Aquino M.D. [facility] [address] [place] [address] Referral ID Status Reason Start Date Expiration Date Visits Requ ested Visits Authorized TUMBLER Encounter Details Date Type Department Care Team Description 06/13/2021 Orders Only RST PCP [facility] Breonna Aquino M.D. [address] [place], [place] [phone] (Wo rk) Social History [...] or relatives? How often do you attend hinduism or restorationism More than 4 time s per year 11/30/2021 services? Do you belong to any clubs or organizations Yes 11/30/2021 such as hinduism groups, unions, fraternal or athletic groups, or [...] have completed or the highest Anika, MEd, SCISSORS SHARPENER, SINDY) degree you have received? Sex Assigned at Date Recorded Female 03/04/2018 7:21 PM CDT documented as of this encounter Plan of Treatment Scheduled Referrals Name Type Priority Associated Order Schedule Diagnoses Covid immunization Outpatient Referral Routine Ex pected: office visit Booster 021 (Approximate), Expires: 06/13/2022 documented as of this encounter Visit Diagnoses Not on filedocumented in this encounter
--- OUTSIDE RECORDS SUMMARY | 2022-04-23 15:45 | XMS_ITS | Encounter Summary ---
:1970 Author Organization [facility] Address [address] [place] [address] Care Team Providers Name Role Phone Unavailable Primary Care Provider Unavailable Reason for Visit Auth/Cert Specialty Diagnoses / Procedures Referred By Contact Refer red To Contact Diagnoses Preoperative Exam Stenosis Spinal Primary Osteoarthritis Lumbar Spine Radiculopathy Lumbosacral Spondylolisthesis Acquired Fusion Lumbar Spine Status Post Preoperative Exam [Z01.818] Stenosis Spinal [M48.00] Procedures IL KRISTOFER/FACE/FORAMIN 1 SEG LUMB IL KRISTOFER/FACE/FORAMIN EA ADD SEG IL ARTHRDSIS LUMB POSTR TECHNIQUE IL POSTR NON SEGM INSTRUMENTATION IL AUTOGRAFT LOCAL SPINE SURG IL LMNCTMY EXCISN LSN EXTRA LUMB DECOMPRESSION POSTERIOR LUMB AR WITH FUSION, Extend current fusion up to L3-4. proceed as indicated Referral ID Status Reason Start Date Expiration Date Visits Requ ested Visits Authorized [id number] 1 1 Encounter Details Date Type Department Care Team Description 08/12/2019 Anesthesia Event RST ROMB MAIN OR Tam Moulton III, M.D. 200 [place] [address] [address] [facility] Manan Newell M.D. [address] [place] [phone] [place] [address] Anesthesia Record Procedure Summary Procedure Name Responsible Anesthesia Start Anesthesia Stop Time Anesthesiologist Time Posterior lumbar Tam Moulton III, M.D. 08/12/19 0734 08/12 1246 decompression, Extend current fusion up to L3-4, proceed as indicated. (Spine Lumbar) Events Date Time Event Comment 08/12/2019 0734 In Room 0734 An Start Machine/Equipmen t Checked Infection Precau tions Followed Procedure/Site V erified NPO Status Verified Supine Standard ASA Monitors Applied 0743 An Induction 0745 An Intubation 0746 Turnover to Proceduralist EMG/Fo zachery 0758 Quick Note Pinions placed 0758 Kevin On 0851 Proc Start 0940 BP Support Discussed with Anesthesiologist 1136 Quick Note Surgical team le aning on NIBP, asked to reposit ion. 1211 Proc Fin 1229 Turnover to ANE Staff 1234 Airway Removal Criteria Met 1234 Extubation/Airway Removed 1237 an stop data 1238 Out of Room 1246 An End I completed my h andoff to the receiving staff during which we 1. Identified the p atient 2. Identified the r esponsible provider 3. Revi ewed the pertinent medical history 4. Discussed the surgical course 5. Reviewed intra-op anesthe idania management and issues during an esthesia 6. Set expectations for post-procedure period 7. Allowe d opportunity for questions and ac knowledgement of understanding. Name Total fentanyl injection 50 mcg/mL 250 mcg lidocaine 2% (mg) injection 100 mg propofol 10 mg/mL 310 mg propofol 10 mg/mL infusion 1,899.41 mg succinylcholine 20 mg/mL injection 140 mg phenylephrine 100 mcg/mL injection 1,100 mcg ondansetron 4 mg/2 mL injection 4 mg sugammadex 100 mg/mL injection 130 mg ketamine 10 mg/mL injection 30 mg ceFAZolin injection 2,000 mg (ANCEF) 4 g tranexamic acid 600 mg in NaCl 0.9% IVPB 600 mg tranexamic acid 8 mg/mL in NaCl 0.9% 250 mL infusion ( CYKLOKAPRON) 428.73 mg dexamethasone 4 mg/mL injection 8 mg HYDROmorphone PF 2 mg/mL injection 1.4 mg ketorolac 30 mg injection 15 mg Lactated Ringers Free Drip 1,000 mL lactated ringers free drip 2,500 mL albumin human bottle 5% 500 mL Agents No agents on file. Blood No blood administrations on file. Lines, Drains, and Airways Type Details Placement Removal Peripheral IV Placement Date: 08/12/19 0630 by 08/12/19; Placement Giulia Perez Time: 629; Catheter Size: 20 G; Orientation: Left; Location: Forearm; Site Prep: Chlorhexidine (Preferred); Technique: (tbl); Insertion Attempts: 1 Peripheral IV Placement Date: 08/12/19 0750 by 08/12/19; Placement GomezBishop W, Time: 749; Catheter OBSTETRICS GYN, LYNETTE, DNAP Size: 18 G; Orientation: Right; Location: Hand; Inserted by: Oscar Gomez CRNA ETT Placement Date: 08/12/19 0745 by 08/12/19 1234 b y 08/12/19; Placement GomezBishop W, Marcelino Gomez W, Time: 744 (created via LYNETTE FIELDS, DNAP Ana FIELDS, DNAP procedure documentation); Mask Ventilation: Easy mask; Type: Standard ETT; Single Lumen Tube Size: 7 mm; Cuffed: Yes; Blade Size: Marley 2; Location: Oral; Removal Date: 08/12/19; Removal Time: 1234 Indwelling Urinary Placement Date: 08/12/19 075 by 08/12/19 [phone] by Catheter 08/12/19; Placement Nakia Howard, R.NNakia Lockett, R.N. Time: 750; Inserted by: Lisa Howard RN; Type: Non-latex; Size: 16 Fr.; Balloon Size: 5 mL (inflated with 10 ml); Urine Returned: Yes; Removal Date: 08/12/19; Removal Time: 1226 (RETIRED) Incision 08/12/19; 820; Back; 08/12/19820 by 1418 by Posterior; 04/24/21 Nakia Howard, R.N. [facility] (Removed by background Maya mustafa [facility] completion utility); Automated B [facility] Job 1418 (Removed by background completion utility) documented in this encounter Social History Tobacco [...] or relatives? How often do you attend rastafari or restoration More than 4 time s per year 11/30/2021 services? Do you belong to any clubs or organizations Yes 11/30/2021 such as rastafari groups, unions, fraternal or athletic groups, or [...] place to sleep or slept in a [facility] (including now)? Education Answer Date Recorded What is the highest level of school Master's degree (e.g., M A, MS, 08/08/2019 you have completed or the highest Anika, MEd, CULLET WASHER, SINDY) degree you have received? Sex Assigned at Date Recorded Female 03/04/2018 7:21 PM CDT documented as of this encounter OR Notes Anesthesia Postprocedure Evaluation - Wong Lyon M.D. - 08/12/2019 1:15 PM CST Patient: Josie Booker Procedure Summary Date: 08/12/19 Room / Location: [address] / [facility] in [place], [place] Anesthesia Start: 34 Anesthesia Stop: 1246 Procedure: Posterior lumbar decompression, Extend current fusion up to L3-4, proceed as indicated. (N/A Spine Lumbar) Diagnosis: Stenosis Spinal (Stenosis Spinal [M48.00].) Provider: Steve Jesus M.D. Responsible Provider: Tam Moulton III, M.D. Anesthesia Type: general ASA Status: 2 Anesthesia Type: general Last vitals Vitals Value Taken Time BP 129/89 08/12/2019 1:00 PM Temp 37.1 ??C 08/12/2019 12:43 PM Pulse 116 08/12/2019 1:14 PM Resp 10 08/12/2019 1:14 PM SpO2 97 % 08/12/2019 1:14 PM Vitals shown include unvalidated device data. Please reference Vitals flowsheet for most recent vital signs. Anesthesia Post Evaluation Patient Disposition: general care unit Cardiovascular status: hemodynamics (HR & BP) acceptable Respiratory status: patent airway with spontaneous effort Temperature: normothermic Oxygen requirements: nasal cannula Level of consciousness: awake Pain score: pain adequately controlled and/or at baseline Post Op nausea/vomiting: none Hydration status: euvolemic ICAL TRIAL ASSISTANT Anesthesia Procedure Notes - Bishop Gomez APRN, CRNA - 08/12/2019 8:34 AM CSTAssociated Order(s): Airway Airway Date/Time: 08/12/2019 7:45 AM Performed by: Bishop Gomez APRN, CRNA Authorized by: Manan Newell M.D. Patient location during procedure: OR / Procedure Area PROCEDURE DETAILS: Mask difficulty assessment: easy mask Final airway type: direct laryngoscopy, intubation Laryngeal Manipulation: no Final airway difficulty of direct laryngoscopy (DL): 0-easy Final best view of glottic structures - Cormack/Lehane Score: grade 2A ETT location: oral Adult blade type: Marley 2 Adult tube size: 7 Adult ETT distance at teeth/gum: 22 Oral tube type: standard ETT Cuffed: yes Number of attempt to successful placement: 1 Airway confirmation: bilateral breath sounds, positive ETCO2 and bilateral chest rise Other previous techniques attempted: none PRE PROCEDURE DETAILS: Pre evaluation for airway management: procedure Urgency: elective Preop assessment of probable difficulty: no difficulty anticipated Preoxygenation: bag valve mask SEDATION / ANESTHESIA Anesthesia method: anesthesia POST PROCEDURE DETAILS: Procedure outcome: successful Airway event: no complications ICAL TRIAL ASSISTANT Anesthesia Preprocedure Evaluation - Manan Newell M.D. - 08/12/2019 7:18 AM CST Preprocedure Anesthesia & H&P Assessment Procedure Summary Date/Time: 08/12/19729 Procedure: Posterior lumbar decompression, Extend current fusion up to L3-4, proceed as indicated. (N/A Spine Lumbar) Diagnosis: Stenosis Spinal [M48.00] Pre-op diagnosis: Stenosis Spinal [M48.00]. Location: [address] / [facility] in [place], [place] Provider: Steve Jesus M.D. Pertinent components of the patient's history including current problem list, medical history, surgical history, family history, social history, medications and allergies were reviewed. Present illnessand pre-op diagnosis were confirmed. The planned surgery / procedure was verified with the patient /legal guardian. The patient's general health condition remains unchanged PROBLEM LIST Relevant Problems No relevant active problems OBJECTIVE PHYSICAL EXAMINATION Airway (HEENT) Mallampati: I TM Distance: >3 FB Neck ROM: Full Mouth Opening: >3 cm Upper Lip Bite Test Class: I Cardiovascular Rhythm: Regular Rate: Normal Cardiovascular Assessment: cardiovascular normal Functional Capacity: >4 METS Pulmonary Pulmonary Assessment: Clear General / Constitutional Constitutional Assessment: Normal General State of Health:: healthy appearing and calm ASSESSMENT / PLAN ANESTHESIA PLAN ASA: 2 Anesthesia Plan: general Listed for monitoring. A-line. Patient seen and allergies reviewed, anesthesia plan and risks discussed directly with patient /legal guardian or through an loin puller. Risks/Benefits/Alternatives of Blood transfusion discussed with patient / legal guardian, including an opportunity to ask questions and/or decline some or all transfusion therapies. The patient / legalguardian consented to the use of all blood products, as deemed medically necessary Approval to Proceed: approved for anesthesia ICAL TRIAL ASSISTANT documented in this encounter Plan of Treatment Not on filedocumented as of this encounter Procedures Procedure Name Priority Date/Time Associated Comments Diagnosis LDA ANE ENDOTRACHEAL Routine 08/12/2019 8:34 AM R esults for this AIRWAY CLINICAL TRIAL ASSISTANT procedure are i n the results section. documented in this encounter Results LDA ANE ENDOTRACHEAL AIRWAY (08/12/2019 8:34 AM CLINICAL TRIAL ASSISTANT) Narrative Bishop Gomez APRN, CRNA - 08/12/2019 8:34 AM CLINICAL TRIAL ASSISTANT Bishop Gomez APRN, CRNA ? 08/12/2019 ??8:35 AM Airway Date/Time: 08/12/2019 7:45 AM Performed by: Bishop Gomez APRN, CRN A Authorized by: Manan Newell M.D. Patient location during procedure: OR / Procedure Area PROCEDURE DETAILS: Mask difficulty assessment: easy mask Final airway type: direct laryngoscopy, intubation Laryngeal Manipulation: no ?? Final airway difficulty of direct laryng oscopy (DL): 0-easy Final best view of glottic structures - Cormack/Lehane Score: grade 2A ETT location: oral Adult blade type: Marley 2 Adult tube size: 7 Adult ETT distance at teeth/gum: 22 Oral tube type: standard ETT Cuffed: yes Number of attempt to successful placemen t: 1 Airway confirmation: bilateral breath so unds, positive ETCO2 and bilateral chest rise Other previous techniques attempted: non e PRE PROCEDURE DETAILS: Pre evaluation for airway management: pr ocedure Urgency: elective Preop assessment of probable difficulty: no difficulty anticipated Preoxygenation: bag valve mask SEDATION / ANESTHESIA Anesthesia method: anesthesia POST PROCEDURE DETAILS: ? Procedure outcome: successful ?? Airway event: no complications Manan Newell M.D. ANESTHESIA ORDERABLES documented in this encounter Visit Diagnoses Not on filedocumented in this encounter Administered Medications Inactive Administered Medications - up to 3 most recent administrations Medication Order MAR Action Action Date Dose Rate Site albumin human 5 % injection New Bag 08/12/2019 11:18 AM CLINICAL TRIAL ASSISTANT intravenous, Continuous Infusion: Per Instructions PRN, Starting on Yadira 08/12/19 at 1118, Anesthesia Intra-op ceFAZolin injection 2,000 mg (ANCEF) Given 08/12/2019 11:24 AM CLINICAL TRIAL ASSISTANT 2 g 2,000 mg (rounded from 1,475 mg = 25 mg/ kg ? 59 kg Order-specific weight), intravenous, Once, On Yadira 08/12/19 at 0745, For 1 dose, Intra-Op, Preoperatively within 1 hour prior to surgical incision If needed, reconstitute vial per package insert instructions. See IVAG for administration guidelines. , Drug Monitoring Program: Pharmacist to adjust medication dosing based on indication and drug clearance factors., Indications: Prophylaxis, surgical Given 08/12/2019 8:24 AM CLINICAL TRIAL ASSISTANT 2 g dexamethasone injection (DECADRON) Given 08/12/2019 8:42 AM CLINICAL TRIAL ASSISTANT 8 mg As needed, Starting on Yadira 08/12/19 at 0842, Anesthesia Intra-op fentaNYL injection (SUBLIMAZE) Given 08/12/2019 10:10 AM CLINICAL TRIAL ASSISTANT 25 mcg intravenous, As needed, Starting on Yadira 08/12/19 at 0743, Anesthesia Intra-op Given 08/12/2019 10:00 AM CLINICAL TRIAL ASSISTANT 25 mcg Given 08/12/2019 8:05 AM CLINICAL TRIAL ASSISTANT 50 mcg HYDROmorphone (PF) injection (DILAUDID) Given 08/12/2019 11:32 AM CLINICAL TRIAL ASSISTANT 0.2 mg As needed, Starting on Yadira 08/12/19 at 0847, Anesthesia Intra-op Given 08/12/2019 11:25 AM CLINICAL TRIAL ASSISTANT 0.2 mg Given 08/12/2019 9:17 AM CLINICAL TRIAL ASSISTANT 0.6 mg ketamine injection (KETALAR) Given 08/12/2019 7:43 AM CLINICAL TRIAL ASSISTANT 30 mg As needed, Starting on Yadira 08/12/19 at 0743, Anesthesia Intra-op ketorolac injection (TORADOL) Given 08/12/2019 12:46 PM CLINICAL TRIAL ASSISTANT 15 mg As needed, Starting on Yadira 08/12/19 at 1246, Anesthesia Intra-op lactated ringers New Bag 08/12/2019 11:52 AM CLINICAL TRIAL ASSISTANT intravenous, Continuous Infusion: Per Instructions PRN, Starting on Yadira 08/12/19 at 0734, Anesthesia Intra-op New Bag 08/12/2019 7:34 AM CLINICAL TRIAL ASSISTANT lactated ringers New Bag 08/12/2019 11:18 AM CLINICAL TRIAL ASSISTANT intravenous, Continuous Infusion: Per Instructions PRN, Starting on Yadira 08/12/19 at 0750, Anesthesia Intra-op New Bag 08/12/2019 10:08 AM CLINICAL TRIAL ASSISTANT New Bag 08/12/2019 7:50 AM CLINICAL TRIAL ASSISTANT lidocaine (PF) (cardiac) injection Given 08/12/2019 7:43 AM CLINICAL TRIAL ASSISTANT 100 mg intravenous, As needed, Starting on Yadira 08/12/19 at 0743, Anesthesia Intra-op ondansetron (PF) injection (ZOFRAN) Given 08/12/2019 11:51 AM CLINICAL TRIAL ASSISTANT 4 mg intravenous, As needed, Starting on Yadira 08/12/19 at 1151, Anesthesia Intra-op phenylephrine injection Given 08/12/2019 11:48 AM CLINICAL TRIAL ASSISTANT 100 mcg intravenous, As needed, Starting on Yadira 08/12/19 at 0842, Anesthesia Intra-op Given 08/12/2019 11:05 AM CLINICAL TRIAL ASSISTANT 100 mcg Given 08/12/2019 11:00 AM CLINICAL TRIAL ASSISTANT 50 mcg propofol 10 mg/mL infusion Rate/Dose 08/12/2019 65 mcg/kg/min 23.9 m L/hr (DIPRIVAN) Change 11:56 AM CLINICAL TRIAL ASSISTANT intravenous, Continuous Infusion: Per Instructions PRN, Starting on Yadira 08/12/19 at 0744, Anesthesia Intra-op Rate/Dose Change 08/12/2019 11:28 AM CLINICAL TRIAL ASSISTANT 75 mcg/kg/min 27.6 mL/hr Rate/Dose Change 08/12/2019 11:20 AM CLINICAL TRIAL ASSISTANT 100 mcg/kg/min 36.8 mL/hr propofol injection (DIPRIVAN) Given 08/12/2019 12:23 PM CLINICAL TRIAL ASSISTANT 40 mg intravenous, As needed, Starting on Yadira 08/12/19 at 0743, Anesthesia Intra-op Given 08/12/2019 11:21 AM CLINICAL TRIAL ASSISTANT 20 mg Given 08/12/2019 7:58 AM CLINICAL TRIAL ASSISTANT 50 mg succinylcholine (PF) injection (ANECTINE ) Given 08/12/2019 7:43 AM CLINICAL TRIAL ASSISTANT 140 mg intravenous, As needed, Starting on Yadira 08/12/19 at 0743, Anesthesia Intra-op sugammadex injection (BRIDION) Given 08/12/2019 12:23 PM CLINICAL TRIAL ASSISTANT 130 mg As needed, Starting on Yadira 08/12/19 at 1223, Anesthesia Intra-op tranexamic acid 600 mg in NaCl 0.9% IVPB New Bag 08/12/2019 8:04 AM CLINICAL TRIAL ASSISTANT 600 mg 600 mg (rounded from 590 mg = 10 mg/kg ? 59 kg Order-specific weight), intravenous, at 168 mL/hr, Administer over 20 Minutes, Once in surgery, OR use only, Starting on Yadira 08/12/19 at 0742, For 1 dose, Intra-Op tranexamic acid 8 mg/mL in New Bag 08/12/2019 8:25 AM CLINICAL TRIAL ASSISTANT 2 mg/kg/ hr 14.8 mL/hr NaCl 0.9% 250 mL infusion (CYKLOKAPRON) 2 mg/kg/hr ? 59 kg Order-specific weight (14.75 mL/hr, rounded to 14.8 mL/hr), intravenous, Continuous, Starting on Yadira 08/12/19 at 0745, Intra-Op, In OR until skin closure. Pharmacy to adjust infusion dose for renal function. premix bag documented in this encounter
--- OUTSIDE RECORDS SUMMARY | 2022-04-23 15:45 | XMS_ITS | Encounter Summary ---
:1970 Author Organization [facility] Address [address] [place] [address] Care Team Providers Name Role Phone Unavailable Primary Care Provider Unavailable Reason for Visit Outpatient (Routine) - Closed Specialty Diagnoses / Procedures Referred By Contact Refer red To Contact General Surgery Diagnoses Preoperative Exam Steve Jesus [place] M.D. [address] [place] [address] Referral ID Status Reason Start Date Expiration Date Visits Requ ested Visits Authorized [id number] Closed 04/21/2019 04/20/2020 1 1 Encounter Details Date Type Department Care Team Description 08/11/2019 Comprehensive Visit Preoperative Steve Jesus M.D. [address] [place] [phone] Preoperative Exam (Primary Dx); Evaluation Center in Venita Cooper APRN, C.N.PEarl [address] [place] [phone] Stenosis Spinal [place], [place] [address] [place] [phone] Social History Tobacco Use Types Packs/Day Years [...] or relatives? How often do you attend amish or voodoo More than 4 time s per year 11/30/2021 services? Do you belong to any clubs or organizations Yes 11/30/2021 such as amish groups, unions, fraternal or athletic groups, or [...] place to sleep or slept in a [facility] (including now)? Education Answer Date Recorded What is the highest level of school Master's degree (e.g., M A, MS, 08/08/2019 you have completed or the highest Anika, MEd, FUR NAILER, SINDY) degree you have received? Sex Assigned at Date Recorded Female 03/04/2018 7:21 PM CDT documented as of this encounter Last Filed Vital Signs Vital Sign Reading Time Taken Comments Blood Pressure 117/79 08/11/2019 9:30 AM METAL BUMPER Pulse 97 08/11/2019 9:30 AM METAL BUMPER Temperature 36.3 ??C (97.3 ??F) 08/11/2019 9:30 AM METAL BUMPER Respiratory Rate - - Oxygen Saturation 97% 08/11/2019 9:30 AM METAL BUMPER Inhaled Oxygen Concentration - - Weight 62.6 kg (138 lb 0.1 oz) 08/11/2019 9:30 AM METAL BUMPER Height 155.8 cm (5' 1.34) 08/11/2019 9:30 AM METAL BUMPER Body Mass Index 25.79 08/11/2019 9:30 AM METAL BUMPER documented in this encounter H&P Notes Venita Cooper APRN, C.N.P. - 08/11/2019 9:30 AM CST Preoperative Medical Evaluation Patient Name: Josie Booker Age: 49 y.o. Date of : 1970 Patient Address: [address] [place] [phone] Primary Care Provider: No primary care provider on file. Referring Physician: Steve Jesus M.D. Pending Procedure: DECOMPRESSION POSTERIOR LUMBAR WITH FUSION, Extend current fusion up to L3-4. proceed as indicated Surgeon: Steve Jesus M.D. HISTORY OF PRESENT ILLNESS Very pleasant 49 year old female with a least a 5 year history of low back pain. Recently her pain has worsened and she has developed radiculopathy bilaterally in both posterior legs and feet. Patient has been taking Flexeril as needed and Tylenol for pain. Preoperative assessment questions reviewed and completed Cardiovascular: Positive for rapid or fluttering heart beat. Patient notes occasional flutter or rapid heart rate, lasting only seconds. These have not been associated with any other cardiac symptoms and do not occur with exercise. Musculoskeletal: Positive for arthralgias, back pain, pain or stiffness in the joints and muscle pain/stiffness. Neurological: Positive for numbness or shooting pain in hands, arms, legs, or feet and weakness in arms or legs. The following systems were negative: Constitutional, Respiratory, Psych OBJECTIVE PHYSICAL EXAMINATION Airway (HEENT) Mallampati: III TM Distance: >3 FB Neck ROM: Full Mouth Opening: >3 cm Upper Lip Bite Test Class: I Cardiovascular Rhythm: Regular Rate: Normal Cardiovascular Assessment: cardiovascular normal Functional Capacity: >4 METS Pulmonary Pulmonary Assessment: Clear General / Constitutional Constitutional Assessment: Normal General State of Health:: healthy appearing Neurological Neurologic Assessment:??alert and alert and oriented x 3 Dental Dental Assessment: dentition intact Outside ECG dated 01/08/19 reviewed (available via scan - Document viewer). ASSESSMENT/PLAN Patient medically optimized for planned procedure: Yes Surgery Specific Risk Classification: Low Risk / Elevated Risk: Intermediate Risk Further Recommendations: None Reviewed NPO and preoperative medication guidelines with patient. Additional co-morbidity information can be found in the overview section of the problem list. 49 y.o. female exceeding 4 METS - by walking for 40-45 minutes three times a week. She is here for apreanesthetic medical examination prior to the planned procedure as listed above. Patient reports previous anesthesia related complications. Patient notes post operative nausea and vomiting and some difficulty waking after anesthesia. Airway Hx (aka airway management): none #1 Preoperative Exam ECG from 01/08/19 notes normal sinus rhythm #2 Stenosis Spinal L BUMPER documented in this encounter Plan of Treatment Not on filedocumented as of this encounter Visit Diagnoses Diagnosis Preoperative Exam - Primary Stenosis Spinal documented in this encounter
--- OUTSIDE RECORDS SUMMARY | 2022-04-23 15:45 | XMS_ITS | Encounter Summary ---
:1970 Author Organization [facility] Address [address] [place] [address] Care Team Providers Name Role Phone Unavailable Primary Care Provider Unavailable Reason for Visit Reason Comments COVID Inquiry Encounter Details Date Type Department Care Team Description 12/14/2019 Clinical Communication Department of TRINI Jesus [facility] in [place], [place] [address] [facility] [address] [place] [phone] Social History Tobacco Use Types Packs/Day Years [...] or relatives? How often do you attend yazdanism or baptist More than 4 time s per year 11/30/2021 services? Do you belong to any clubs or organizations Yes 11/30/2021 such as yazdanism groups, unions, fraternal or athletic groups, or [...] place to sleep or slept in a residential (including now)? Education Answer Date Recorded What is the highest level of school Master's degree (e.g., M A, MS, 08/08/2019 you have completed or the highest Anika, MEd, TYPEWRITERS FUNCTIONAL TESTER, SINDY) degree you have received? Sex Assigned at Date Recorded Female 03/04/2018 7:21 PM CDT documented as of this encounter Miscellaneous Notes Telephone Encounter - Eva Dempsey - 12/14/2019 2:33 PM CDT 1. In the past 14 days, have you been tested for COVID-19 with a positive or pending result? no 2. In the past 14 days, do you, anyone in the household, or anyone you have had prolonged exposure have (any of the following)? a. Fever = 38.0 C (100.5 F) lasting 24 hours? no b. New symptoms (Specifically: cough, shortness of breath, respiratory distress, sore throat, diarrhea, chills, myalgia's (muscle aches), loss of smell, or change or loss of taste sensation)? no c. Had close contact with persons who are under quarantine or isolation for COVID? no d. Had close contact with a patient with known or possible COVID-19? no Route reply to: n/a Scheduling Contact Number: [phone] documented in this encounter Plan of Treatment Not on filedocumented as of this encounter Visit Diagnoses Not on filedocumented in this encounter
--- OUTSIDE RECORDS SUMMARY | 2022-04-23 15:45 | XMS_ITS | Encounter Summary ---
:[address] [facility] Address [address] [place] [address] Care Team Providers Name Role Phone Unavailable Primary Care Provider Unavailable Reason for Visit Reason Onset Date Comments COVID Inquiry 12/17/2019 Encounter Details Date Type Department Care Team Description 12/17/2019 Clinical Communication Division of Gerard Fagan COVID Inquiry Endocrinology in [place], [place] [address] [facility] [address] [place] [phone] Social History Tobacco Use Types Packs/Day Years [...] or relatives? How often do you attend mandaen or rastafarian More than 4 time s per year 11/30/2021 services? Do you belong to any clubs or organizations Yes 11/30/2021 such as mandaen groups, unions, fraternal or athletic groups, or [...] place to sleep or slept in a long-term (including now)? Education Answer Date Recorded What is the highest level of school Master's degree (e.g., M A, MS, 08/08/2019 you have completed or the highest Ankia, MEd, LEARNING DISABLED TEACHER, SINDY) degree you have received? Sex Assigned at Date Recorded Female 03/04/2018 7:21 PM CDT documented as of this encounter Miscellaneous Notes Telephone Encounter - Noemi Arroyo - 12/17/2019 10:07 AM CDT 1. In the past 14 days, [...] patient with known or possible COVID-19? no Scheduling Contact Number: [phone] documented in this encounter Plan of Treatment Not on filedocumented as of this encounter Visit Diagnoses Not on filedocumented in this encounter
--- OUTSIDE RECORDS SUMMARY | 2022-04-23 15:45 | XMS_ITS | Encounter Summary ---
:1970 Author Organization [facility] Address [address] [place] [address] Care Team Providers Name Role Phone Unavailable Primary Care Provider Unavailable Reason for Visit Outpatient (Routine) - Closed Specialty Diagnoses / Procedures Referred By Contact Refer red To Contact Orthopedic Surgery Diagnoses [facility] [address] [place] [address] Referral ID Status Reason Start Date Expiration Date Visits Requ ested Visits Authorized [id number] Closed 04/21/2019 04/20/2020 1 1 Encounter Details Date Type Department Care Team Description 08/11/2019 Office Visit Department of Orthopedic Steve Jesus Preoperative Exam Surgery in Divine Fragoso M.D. [place] [address] [facility] [address] [place] [phone] Social History Tobacco Use Types Packs/Day Years [...] How often do you attend islam or baptist More than 4 time s [...] have completed or the highest Anika, MEd, INDUSTRIAL SEWER, SINDY) degree you have received? Sex Assigned at Date Recorded Female 03/04/2018 7:21 PM CDT documented as of this encounter Progress Notes Steve Jesus M.D. - 08/11/2019 11:00 AM CST Pain reported: 10/11 LONNIE: 32 NDI: PROMIS: 39.8 PHQ: 4 Pre-operative visit for: Primary Osteoarthritis, Lumbosacral spondylosoisthesis, Procedure: Posterior lumbar decompression with fusion L3-4 Date of procedure: 08/12/2019 Surgeon: Dr. Steve Jesus REASON FOR VISIT Josie Booker is a 49 y.o. female who presents to the office today for a preoperative consultation for planned Posterior lumbar decompression with fusion L3-4 on 08/12/19.Patient has failed medical treatment. Patient has been treated with and failed the following modalities: Injection, medication, physical therapy. Continues to have low back pain with left > right pain and numbness/tingling. Patient has undergone preoperative medical evaluation with JUAN ALBERTO Date: 08/11/19. Venita Cooper APRN, and has been medically optimized for surgery. After discussing risks, benefits, and alternatives to surgery, patient has elected to undergo surgery. SOCIAL HISTORY Tobacco use:denied Alcohol use: Social. Pain Medication: Ibuprofen The following portions of the patient's history were reviewed and updated as appropriate: allergies,current medications, family history, social history and surgical history. REVIEW OF SYSTEMS Patient denies fevers, chills, or constitutional symptoms otherwise. No chest pain or shortness of breath. Genitourinary: Positive for decreased libido. Musculoskeletal: Positive for arthralgias, back pain, pain or stiffness in the joints and muscle pain/stiffness. Neurological: Positive for numbness or shooting pain in hands, arms, legs, or feet and weakness in arms or legs. Psychiatric/Behavioral: Positive for decreased libido. The following systems were negative: Constitutional, Skin, Eyes, ENT, Respiratory, GI, Hematologic OBJECTIVE Vital Signs vitals were not taken for this visit. PHYSICAL EXAM Constitutional: Alert and Oriented x 3. Handedness: Right-handed Skin: Normal in planned surgical area. Motor: Upper Extremity: Left Right Deltoids: 5/5 5/5 Biceps: 5/5 5/5 Triceps: 5/5 5/5 Wrist Ext: 5/5 5/5 Wrist Flex: 5/5 5/5 Special Education Resource Teacher: 5/5 5/5 Lower Extremity: Left Right Iliopsoas: 5/5 5/5 Quadriceps: 5/5 5/5 Tibialis Ant: 5/5 5/5 EHL: 5/5 5/5 Gastrocs: 5/5 5/5 Hamstrings: 5/5 5/5 DIAGNOSTICS Hospital Outpatient Visit on 08/11/2019 Component Date Value ??? Potassium, S 08/11/2019 3.8 ??? Sodium, S 08/11/2019 142 ??? Chloride, S 08/11/2019 102 ??? Bicarbonate, S 08/11/2019 29 ??? Anion Gap 08/11/2019 11 ??? Bld Urea Nitrog(BUN), S 08/11/2019 22* ??? Creatinine, S 08/11/2019 1.06* ??? eGFR-Non Black 08/11/2019 61 ??? eGFR-Black 08/11/2019 70 ??? Calcium, Total, S 08/11/2019 9.7 ??? Glucose, S 08/11/2019 89 ??? Hemoglobin 08/11/2019 14.0 ??? Hematocrit 08/11/2019 43.4 ??? Erythrocytes 08/11/2019 4.96 ??? MCV 08/11/2019 87.5 ??? RBC Distrib Width 08/11/2019 12.8 ??? Platelet Count 08/11/2019 235 ??? Leukocytes 08/11/2019 4.5 ??? Neutrophils 08/11/2019 2.65 ??? Lymphocytes 08/11/2019 1.16 ??? Monocytes 08/11/2019 0.56 ??? Eosinophils 08/11/2019 0.12 ??? Basophils 08/11/2019 0.05 ??? ABORh 08/11/2019 A Neg ??? Antibody Screen 08/11/2019 Negative ? ? Type & Screen Expiration 08/11/2019 10/09/2019 23:59 ??? Testing Location 08/11/2019 [facility] No new imaging to review ASSESSMENT / PLAN The patient reports today for preoperative education, administration and surgical listing. We have additionally reviewed the [place] Model of Care, advance directives, risks and benefits of surgical and nonsurgical treatment as well as the [facility] concurrent surgery policy. We will plan for a scheduled Posterior lumbar decompression with fusion L3-4. Patient relates understanding and wishes to proceed with the operation. We will plan a two week follow up appointment for an incision check with a member of Dr. Jesus's team if you live locally. We will also get you set up with your 4 month appointment with new imaging. During the surgical case the patient should be position in a prone position with arms at her side shivam has had previous shoulder surgery on the right and is in need of a shoulder surgery on the left.She has a history of nausea and vomiting with anesthesia. She should also consider being evaluated in endocrinology here or locally as her bone mineral density showed osteopenia. She should in the meantime make sure to take 1200 mg of calcium with vitamin D daily. The above history, physical, imaging, impression and plan were discussed with Dr. Jesus who waspresent and was in agreement. 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
--- OUTSIDE RECORDS SUMMARY | 2022-04-23 15:45 | XMS_ITS | Encounter Summary ---
:1970 Author Organization [facility] Address [address] [place] [address] Care Team Providers Name Role Phone Unavailable Primary Care Provider Unavailable Encounter Details Date Type Department Care Team Description 12/20/2019 Hospital Encounter Department of Nakia Jesus Laboratory Medicine Steve Haskins M.D. Osteoporosis and Pathology, [address] [place] [address] in [place], [place] [address] [place] [address] [place], [place] (Work) [phone] Social History Tobacco Use Types Packs/Day Years [...] or relatives? How often do you attend samaritan or voodoo More than 4 time s per year 11/30/2021 services? Do you belong to any clubs or organizations Yes 11/30/2021 such as samaritan groups, unions, fraternal or athletic groups, or [...] have completed or the highest Anika, MEd, POWER GENERATION PLANT OPERATOR, SINDY) degree you have received? Sex [...] Name Priority Date/Time Associated Diagnosis Comme nts PHOSPHORUS Routine 12/20/2019 10:02 Screening Results for this (INORGANIC), S AM CDT Osteoporosis procedure are in the results section. CREATININE WITH Routine 12/20/2019 10:02 Screening Results for this EGFR, S/P AM CDT Osteoporosis procedure are i n the results section. CALCIUM, TOT, S/P Routine 12/20/2019 10:02 Screening Result s for this AM CDT Osteoporosis procedure are i n the results section. ALBUMIN, S/P Routine 12/20/2019 10:02 Screening Results for this AM CDT Osteoporosis procedure are i n the results section. 25-HYDROXYVITAMIN Routine 12/20/2019 10:01 Screening Result s for this D2 AND D3, S AM CDT Osteoporosis procedure are i n the results section. documented in this encounter Results Albumin (12/20/2019 10:02 AM CDT) athologist Signature Albumin, S 4.4 3.5 - 5.0 12/20/2019 DTL g/dL 12:04 PM CDT Specimen Anatomical Collection Method Collection Time Receive d Time (Source) Location / / Volume Laterality Blood (Blood, 12/20/2019 10:02 12/20/2019 Venous) AM CDT 11:03 AM CDT Steve Jesus M.D. LAB BLOOD ADD-ON Performing Organization Address City/State/ZIP Code Phon e Number [facility] - [address] [place], [place] [address] [facility] [place] [address] [facility] [address] Calcium, Total (12/20/2019 10:02 AM CDT) athologist Signature Calcium, Total, 9.9 8.6 - 10.0 12/20/2019 DTL S mg/dL 12:04 PM CDT Specimen Anatomical Collection Method Collection Time Receive d Time (Source) Location / / Volume Laterality Blood (Blood, 12/20/2019 10:02 12/20/2019 Venous) AM CDT 11:03 AM CDT Steve Jesus M.D. LAB BLOOD ADD-ON Performing Organization Address City/[facility]/ZIP Code Phon e Number [facility] - [address] [place], [place] [address] [place] [address] [place] [address] Laboratories-[address] Phosphorus Inorganic (12/20/2019 10:02 AM CDT) P athologist Signature Phosphorus 4.2 2.5 - 4.5 12/20/2019 DTL (Inorganic), S mg/dL 12:04 PM CDT Specimen Anatomical Collection Method Collection Time Receive d Time (Source) Location / / Volume Laterality Blood (Blood, 12/20/2019 10:02 12/20/2019 Venous) AM CDT 11:03 AM CDT Steve Jesus M.D. LAB BLOOD ADD-ON Performing Organization Address [facility] Phon e Number [facility] [address] (ABNORMAL) Creatinine with Estimated GFR (12/20/2019 10:02 AM CDT) Analysis Performed At Patho logist Time Signature Creatinine 1.06 (H) 0.59 - 12/20/2019 DTL 1.04 mg/dL 12:04 PM CDT eGFR-Non 61 >=60 12/20/2019 DTL Black/ mL/min/BSA 12:04 PM CDT S[place]inese Comment: ----ADDITIONAL INFORMATION---- Estimated GFR calculated using the 2009 CKD_EPI creatinine equation. eGFR-Black/ 70 >=60 mL/min/BSA 2019 12:04 PM CDT DTL Comment: ----ADDITIONAL INFORMATION---- Estimated GFR calculated using the 2009 CKD_EPI creatinine equation. Specimen Anatomical Collection Method Collection Time Receive d Time (Source) Location / / Volume Laterality Blood (Blood, 12/20/2019 10:02 12/20/2019 Venous) AM CDT 11:03 AM CDT Steve Jesus M.D. LAB BLOOD ADD-ON Performing Organization Address City/[facility]/ZIP Code Phon e Number [facility] - [address] [place], [place] [address] [facility] [place] [address] [facility] [address] 25-Hydroxyvitamin D2 and D3 (12/20/2019 10:01 AM CDT) P athologist Signature 25-Hydroxy D2 <4.0 ng/mL 12/21/2019 [facility] 11:56 PM CDT 25-Hydroxy D3 66 ng/mL 12/21/2019 [facility] 11:56 PM CDT 25-Hydroxy D 66 ng/mL 12/21/2019 [facility] Total 11:56 PM CDT Comment: Interpretation: 51-80 ng/mL (increased r isk of hypercalciuria) ----REFERENCE VALUE---- 25-HYDROXY D TOTAL (D2+D3) Optimum level s in the healthy population are 20-50, patients with bone disease may benefit from higher levels within this r beatriz. ----ADDITIONAL INFORMATION---- This test was developed and its performa nce characteristics determined by [facility] in a manner consistent with CLIA requirements. This test has not been cleared or approved by the [place] d and Drug Administration. Specimen Anatomical Collection Method Collection Time Receive d Time (Source) Location / / Volume Laterality Blood (Blood, 12/20/2019 10:01 12/20/2019 2:11 Venous) AM CDT PM CDT Steve Jesus M.D. LAB BLOOD ADD-ON Performing Organization Address City/State/ZIP Code Phon e Number [facility] [address] [place], [place] [address] [facility] [place] [address] Laboratory Medicine and Pathology [address] [place] documented in this encounter Visit Diagnoses Diagnosis Screening Osteoporosis documented in this encounter
--- OUTSIDE RECORDS SUMMARY | 2022-04-23 15:45 | XMS_ITS | Encounter Summary ---
:1970 Author Organization [facility] Address [address] [place] [address] Care Team Providers Name Role Phone Unavailable Primary Care Provider Unavailable Reason for Referral MRI/CAT/PET Scan (Routine) - Closed Specialty Diagnoses / Procedures Referred By Contact Refer red To Contact Radiology Diagnoses Arthrodesis Status Steve Jesus M.D. [facility] Procedures CT Lumbar Spine without IV Contrast [address] [place], [place] [id number] Referral ID Status Reason Start Date Expiration Date Visits Requ ested Visits Authorized [id number] Closed 08/12/2019 08/11/2020 1 1 GE ACCOUNTS AUDIT CLERK Outpatient (Routine) - Closed Specialty Diagnoses / Procedures Referred By Contact Refer red To Contact Orthopedic Surgery Steve Jesus [facility] Kathy [address] [place] [address] Referral ID Status Reason Start Date Expiration Date Visits Requ ested Visits Authorized [id number] Closed 08/12/2019 08/11/2020 1 1 GE ACCOUNTS AUDIT CLERK Reason for Visit Auth/Cert Specialty Diagnoses / Procedures Referred By Contact Refer red To Contact Diagnoses Preoperative Exam Stenosis Spinal Primary Osteoarthritis Lumbar Spine Radiculopathy Lumbosacral Spondylolisthesis Acquired Fusion Lumbar Spine Status Post Preoperative Exam [Z01.818] Stenosis Spinal [M48.00] Procedures TN KRISTOFER/FACE/FORAMIN 1 SEG LUMB TN KRISTOFER/FACE/FORAMIN EA ADD SEG TN ARTHRDSIS LUMB POSTR TECHNIQUE TN POSTR NON SEGM INSTRUMENTATION TN AUTOGRAFT LOCAL SPINE SURG TN LMNCTMY EXCISN LSN EXTRA LUMB DECOMPRESSION POSTERIOR LUMB AR WITH FUSION, Extend current fusion up to L3-4. proceed as indicated Referral ID Status Reason Start Date Expiration Date Visits Requ ested Visits Authorized [id number] 1 1 Encounter Details Date Type Department Care Team Description 08/12/2019 - Hospital Encounter [facility] Ann Marie, Stenosis Spinal (Primary Dx); 08/14/2019 [facility] Steve Bai M.D. Arthrodesis Status; [facility] [address] [facility] Debility; [place], [address] [place], [place] Decline Functional Status [address] [place] [id number] [place], [place] [phone] (Work) [phone] Social History Tobacco Use Types Packs/Day Years [...] or relatives? How often do you attend druze or oriental orthodox More than 4 time s per year 11/30/2021 services? Do you belong to any clubs or organizations Yes 11/30/2021 such as druze groups, unions, fraternal or athletic groups, or [...] place to sleep or slept in a penitentiary (including now)? Education Answer Date Recorded What is the highest level of school Master's degree (e.g., M A, MS, 08/08/2019 you have completed or the highest Anika, MEd, MACHINE FILLER, SINDY) degree you have received? Sex Assigned at Date Recorded Female 03/04/2018 7:21 PM CDT documented as of this encounter Last Filed Vital Signs Vital Sign Reading Time Taken Comments Blood Pressure 129/61 08/14/2019 12:30 PM CHARGE ACCOUNTS AUDIT CLERK Pulse 115 08/14/2019 12:35 PM CHARGE ACCOUNTS AUDIT CLERK Temperature 37 ??C (98.6 ??F) 08/14/2019 12:30 PM CHARGE ACCOUNTS AUDIT CLERK Respiratory Rate 17 08/14/2019 12:30 PM CHARGE ACCOUNTS AUDIT CLERK Oxygen Saturation 98% 08/14/2019 12:34 PM CHARGE ACCOUNTS AUDIT CLERK Inhaled Oxygen Concentration - - Weight 61.4 kg (135 lb 5.8 oz) 08/12/2019 6:45 AM CHARGE ACCOUNTS AUDIT CLERK Height 154 cm (5' 0.63) 08/12/2019 6:45 AM CHARGE ACCOUNTS AUDIT CLERK Body Mass Index 25.89 08/12/2019 6:45 AM CHARGE ACCOUNTS AUDIT CLERK documented in this encounter Discharge Summaries Art Albert M.D. - 08/14/2019 7:43 AM CST DISCHARGE SUMMARY BRIEF OVERVIEW Discharge Provider: Steve Jesus M.D. No primary care provider on file. Primary Care Provider Phone Number: None Primary Care Provider Fax Number: None Other Providers: None Admission Date: 08/12/2019 Discharge Date: 08/14/2019 PRINCIPAL DIAGNOSIS No Principal Problem: There is no principal problem currently on the Problem List. Please update theProblem List and refresh. SECONDARY DIAGNOSES Active Problems: Preoperative Exam Stenosis Spinal Resolved Problems: * No resolved hospital problems. * Surgery Information This Encounter Past Procedures (08/14/2018 to Today) Date Procedures Providers Location 08/12/2019 Posterior lumbar decompression, Extend current fusion up to L3-4, proceed as indicated. Steve Jesus M.D.Braig, Zachary V., M.D. RST ROMB OR DISCHARGE DISPOSITION Home or Self Care [1] ACTIVE ISSUES REQUIRING FOLLOW UP You will follow-up with Dr. Jesus approximately 4 months from the time of surgery with AP and Lateral Xrays and CT if you had a fusion of the spine. The details of this appointment will be sent toyou. For any questions regarding this appointment please call and ask to speak with Dr. Jesus's appointment desk. Please see your local provider at 2 weeks for a wound check. If youwish to arrange for this visit at our office, please let us know and we can arrange for you to see amember of Dr. Jesus's team. If you have any general questions or concerns please call during regular weekday working hours (8 am to 5 pm). For urgent issues at night or on weekends the patient may contact Dr. Jesus's service through the [facility] noodle press operator at . This number should not be used for routine questions that can be answered during business hours. If you have an emergency, please [phone]. If you have a brace or abdominal binder you must wear the brace at all times except when lying flat in bed. This can be put on once you are seated at the edge of the bed. You may also remove the brace to shower. When sitting up in a recliner or chair loosen it so air can get to your incision and to prevent the incision from getting moist. No bending, twisting, or stooping for three months. When turning move your shoulders, hips, and feetat the same time. Roll like a log when getting out of bed. No lifting greater than 10 pounds. A gallon of milk is approximately 9 pounds. Do not lift over thissize or amount. Do not lift over 10 pounds for 8 weeks following surgery for decompressions. Do not lift over 10 pounds until seen and advised by Dr. Jesus service if you have had a fusion surgery. Walk every hour at home. Gradually increase the distance and time of your walks, as you are able. Ifyou sit in a chair longer than an hour or only walk once or twice a day, your muscle will become very sore and painful. Your incision is closed with a dressing called Prineo, this appears like a tape. This should stay inplace until it falls off on its own. This should be at 2-3 weeks postoperative. As the edges of the dressing come away from the skin it can be trimmed with a scissors. If you have external sutures you need to have these removed by our service at 2 weeks post the surgery date or by your home [facility] physician or Nurse Practitioner or Physician Coil Tier. Leave the operative dressing in place for 3-4 days. The incision should be inspected daily for signsand symptoms of infection. Once there is 2 consecutive days without drainage your incision can be open to air. Apply a dressing only if brace or clothes irritating the incision. You may shower once you no longer have drains and your incision is not draining. No swimming pools, hot tubs, tub bathing, or [place] for 6 weeks post your surgical date. You mayshower as you wish. No formal physical therapy is required until six weeks after surgery if you had a decompression only. If you had a fusion, physical therapy is not required until after your first follow up appointment with Dr. Jesus's Service. Walking is the most physical therapy you should do in the immediate pos toperative period. NO smoking. Smoking decreases the chance of healing, especially in cases where a fusion was performed and decreases chance of improvement from the surgical procedure. Smoking increases your risk of infection. If you had a fusion surgery, do not take any type of anti-inflammatory medicine for the first 3 months after the surgery (Voltaren, Aspirin, Advil, Motrin, Aleve, Ibuprofen, Indocin, Celebrex or Vioxx). These medications inhibit the development of a solid fusion. If you have any questions about your medications please call us. You may use ES Tylenol as needed, but if you are taking a narcotic pain medication that has Tylenol in it do not consume greater than 4000 mg or 4 grams of Tylenol in a 24 hour period of time. Complications sometimes occur and we need to know about them so as to manage them correctly. Please contact us if you develop any of the following symptoms: fever (greater than 38.5 C/101 F; drainage from your wound; increased incisional pain; new numbness or tingling not present before you left the hospital. Also call us if you experience loss of bowel or bladder control; increased warmth or rednessat the incision sight; excessive vomiting, chills, or night sweats. Please see our contact information above. You may drive a car once you are no longer using pain medications and/or one month following surgery, when you feel you can safely control a car. You may want to check with your insurance company to make sure they have no restrictions either related to returning to driving. Narcotic Pain Medication: The patient may require narcotic pain medication (Percocet, oxycodone, Vicodin, etc) for several days after dismissal from the hospital. These medications may cause symptoms such as drowsiness, confusion, nausea, and constipation. The patient is encouraged to not use these medications any longer than necessary, as they may be addictive if used over an extended time period. While taking these medications we recommend an over the counter stool softener (such as Colace or Senokot-S) to help prevent constipation. In addition, the patient is advised not to operate any motorizedvehicles while taking these medications. Refills can only be provided during business hours. Plan ahead if you are going to need a refill. None OUTPATIENT FOLLOW UP No future appointments. TEST RESULTS PENDING AT DISCHARGE DETAILS OF HOSPITAL STAY REASON FOR ADMISSION Stenosis Spinal Stenosis Spinal HOSPITAL COURSE Surgery Information This Encounter Past Procedures (08/14/2018 to Today) Date Procedures Providers Location 08/12/2019 Posterior lumbar decompression, Extend current fusion up to L3-4, proceed as indicated. Steve Jesus M.D.rAt Albert M.D. [facility] OR Josie Booker was taken to the operative room by Steve Jesus MD for the procedure listed above. The intraoperative as well as the immediate postoperative course were uncomplicated. For further details of the surgery please see the operative note. The patient was transferred from the PACU to the general care floor for continued observation and monitoring. She progressed in the usual post-operative fashion without complications. The patient was treated with perioperative IV antibiotics. She was given liquids by mouth and eventually advanced as toleratedtowards a more general diet. Her pain was well controlled with oral pain medications. Physical therapy / Occupational therapy was consulted for assistance with mobilization and gait training. She was mobilizing without difficulty and was compliant with any activity restrictions. Her incision remained intact with no concerns. Her bowel and bladder function were acceptable. She then met criteria for discharge and was later dismissed from the hospital. For any further details please see the most recentorthopedic surgery progress note and any other co-managing teams dated 08/14/2019. CONSULTS ORDERED DURING THIS ADMISSION IP CONSULT TO CARE MANAGEMENT CONDITION AT DISCHARGE good Discharge instructions were provided to the patient and caregiver(s). GE ACCOUNTS AUDIT CLERK documented in this encounter Discharge Instructions AttachmentsThe following attachments cannot be sent through Care Everywhere. Tramadol (By mouth) (Tajik)documented in this encounter Medications at Time of Discharge Medication Sig Dispensed Refills Start Date End Date acetaminophen (TYLENOL) Take 1,000 mg by 0 500 mg tablet mouth as needed for pain. cholecalciferol, vitamin Take 1,000 Units 0 D3, 25 mcg (1,000 Unit) by mouth every tablet morning. cyclobenzaprine (FLEXERIL) Take 5-10 mg by 0 10 mg tablet mouth as needed for muscle spasms. Lactobacillus acidophilus Take 1 capsule by 0 (Probiotic) 10 billion mouth every cell capsule morning. mupirocin (BACTROBAN) 2 % Apply a dab to the 22 g 0 12/07/2020 ointment each nostril twice daily for 5 days. acetaminophen (TYLENOL) Take 2 tablets 120 tablet 0 08/14/19 20 08/29/2019 500 mg tablet (1,000 mg total) by mouth every 6 (six) hours for 15 days. traMADol (ULTRAM) 50 mg Take 1 tablet (50 18 tablet 0 08/1408/17/2019 tabletIndications: Acute mg total) by mouth Pain Exception every 4 (four) hours as needed for pain for up to 3 days Indications: Acute Pain Exception. calcium carbonate 1,500 mg Take 1 tablet by 0 08/201512/07/2020 (600 mg calcium) tablet mouth 2 (two) times a day. One in AM, one in PM mv/FA/dha/epa/coQ10/Ca/D3/ Take 1 capsule by 0 12/03/2021 cran (WOMEN'S VITAPAK mouth every ORAL) morning. traMADol (ULTRAM) 50 mg Take 2 tablets 18 tablet 0 08/14/19 20 08/18/2019 tabletIndications: Acute (100 mg total) by Pain Exception mouth every 6 (six) hours as needed for moderate pain or score 4-6 of 10 or severe pain or score 7-10 of 10 for up to 3 days Indications: Acute Pain Exception. documented as of this encounter Progress Notes Art Albert M.D. - 08/13/2019 6:23 AM CST PROGRESS NOTE Orthopedic Service: Dr. Jesus Hospital Admission Day: 08/12/2019 Hospital Day: 1 Date of Most Recent Surgery: 08/12/19 SUBJECTIVE Patient doing well. Overnight, patient had nausea with multiple rounds of emesis. This was successfully treated with Phenergan, and she has been asymptomatic since 2am. Pain controlled with just oral Tylenol. Passing gas, no bowel movement. Urinating appropriately. Tolerating PO. She has not yet been out of bed, but she is looking forward to this today. Mild tachycardia, otherwise vitals stable. OBJECTIVE Vitals: 08/13/19 0023 08/13/19 0041 08/13/19 0141 08/13/19 0405 BP: 108/59 Patient Position: Lying Lying Pulse: (!) 112 Heart Rate: Temp: 36.9 ??C Resp: 15 16 Height: Weight: SpO2: 96% TempSrc: Oral Oral Pain Score: 4 3 4 Pain Location: PHYSICAL EXAMINATION General: Alert and oriented x 3, not in acute distress, follows commands. Lungs: Non-labored respirations on room air Neuro: Lower Extremity: Hip Flexion: Left 5/5 Right 5/5 Hip Extension: Left 5/5 Right 5/5 Knee Flexion: Left 5/5 Right 5/5 Knee Extension: Left 5/5 Right 5/5 Ankle Plantarflexion: Left 5/5 Right 5/5 Ankle Dorsiflexion: Left 5/5 Right 5/5 1st Toe MCP Plantarflexion: Left 5/5 Right 5/5 1st Toe MCP Dorsiflexion: Left 5/5 Right 5/5 Sensation to soft touch intact and symmetric bilaterally in the obturator, LFC, sural, saphenous, deep peroneal, superficial peroneal and tibial distributions tested on exam. Upper Extremity: Finger Abduction: Left 5/5 Right 5/5 Thumb IP Flexion: Left 5/5 Right 5/5 Thumb IP Extension: Left 5/5 Right 5/5 Wrist Flexion: Left 5/5 Right 5/5 Wrist Extension: Left 5/5 Right 5/5 Elbow Flexion: Left 5/5 Right 5/5 Elbow Extension: Left 5/5 Right 5/5 Shoulder Abduction: Left 5/5 Right 5/5 Sensation to soft touch intact and symmetric bilaterally in the axillary, LABC, MABC, ulnar, median,radial distributions tested on exam. Vascular: DP 2+ bilaterally LABORATORY STUDIES (past 24 hours) No results found for this or any previous visit (from the past 24 hour(s)). IMAGING STUDIES (past 24 hours) No results found. ASSESSMENT / PLAN #1 Preoperative Exam #2 Stenosis Spinal Surgical Diagnosis/Procedure(s) Posterior lumbar decompression, Extend current fusion up to L3-4, proceed as indicated. Active Issues None Comorbidities Present on Admission None Ms. Booker is a pleasant 49 y.o. female who underwent a posterior lumbar decompression and extension of previous L4-S1 fusion up to L3. Patient doing well this morning. Overnight, patient had nausea with multiple rounds of emesis. This was successfully treated with Phenergan, and she has been asymptomatic since 2am. Pain controlled with just oral Tylenol. Passing gas, no bowel movement. Urinating appropriately. Tolerating PO. She has not yet been out of bed, but she is looking forward to this today. Mild tachycardia, otherwise vitalsstable. PLAN: - Will add flexeril (home medication) today for spasm. Patient expresses a desire to avoid tramadol/oxycodone given history of nausea with these medications. ?? Activity: With assistance ?? Antibiotics: masha-operative Cefazolin x 24 hours ?? Blood: hemodynamically stable, currently asymptomatic ?? Brace: none ?? Cultures: none ?? Diet: general diet ?? Drains: none ?? DVT Prophylaxis: SCD ?? Pain: Multimodal pain regimen ?? Urinary: Removed. ?? Disposition: Anticipate discharge to home. For any questions or concerns from 6 am until 6 pm, please page [facility] at [phone] For urgent matters from 6 pm until 6 am, please page Regina Henderson at [facility] [phone] Art Lennon M.D. - 08/12/2019 2:02 PM CST POST-OPERATIVE NOTE Orthopedic Service: Dr. Jesus Hospital Admission Day: 08/12/2019 Hospital Day: 0 Date of Most Recent Surgery: No surgery found SUBJECTIVE Patient doing well post-operatively. Her pain is under control. OBJECTIVE Vitals: 08/12/19 1325 08/12/19 1329 08/12/19 1330 08/12/19 1350 BP: 133/79 Patient Position: Lying Pulse: 108 108 (!) 121 Heart Rate: 108 108 Temp: 36.4 ??C 36.3 ??C Resp: 14 16 15 Height: Weight: SpO2: 99% 96% TempSrc: Oral Oral Pain Score: 5 - Moderate pain 5 - Moderate pain Pain Location: Back Back PHYSICAL EXAMINATION General: Alert and oriented x 3, not in acute distress, follows commands. Lungs: Non-labored respirations on room air Neuro: Lower Extremity: Hip Flexion: Left 5/5 Right 5/5 Hip Extension: Left 5/5 Right 5/5 Knee Flexion: Left 5/5 Right 5/5 Knee Extension: Left 5/5 Right 5/5 Ankle Plantarflexion: Left 5/5 Right 5/5 Ankle Dorsiflexion: Left 5/5 Right 5/5 1st Toe MCP Plantarflexion: Left 5/5 Right 5/5 1st Toe MCP Dorsiflexion: Left 5/5 Right 5/5 Sensation to soft touch intact and symmetric bilaterally in the obturator, LFC, sural, saphenous, deep peroneal, superficial peroneal and tibial distributions tested on exam. Upper Extremity: Finger Abduction: Left 5/5 Right 5/5 Thumb IP Flexion: Left 5/5 Right 5/5 Thumb IP Extension: Left 5/5 Right 5/5 Wrist Flexion: Left 5/5 Right 5/5 Wrist Extension: Left 5/5 Right 5/5 Elbow Flexion: Left 5/5 Right 5/5 Elbow Extension: Left 5/5 Right 5/5 Shoulder Abduction: Left 5/5 Right 5/5 Sensation to soft touch intact and symmetric bilaterally in the axillary, LABC, MABC, ulnar, median,radial distributions tested on exam. Vascular: DP 2+ bilaterally LABORATORY STUDIES (past 24 hours) No results found for this or any previous visit (from the past 24 hour(s)). IMAGING STUDIES (past 24 hours) No results found. ASSESSMENT / PLAN #1 Preoperative Exam #2 Stenosis Spinal Surgical Diagnosis/Procedure(s) Posterior lumbar decompression, Extend current fusion up to L3-4, proceed as indicated. Active Issues None Comorbidities Present on Admission None Ms. Booker is a pleasant 49 y.o. female who underwent a posterior lumbar decompression and extension of previous L4-S1 fusion up to L3. Her post- operative exam is appropriate with no neurologic deficits. PLAN: ?? Activity: With assistance ?? Antibiotics: masha-operative Cefazolin x 24 hours ?? Blood: hemodynamically stable, currently asymptomatic ?? Brace: none ?? Cultures: none ?? Diet: general diet ?? Drains: none ?? DVT Prophylaxis: SCD ?? Pain: Multimodal pain regimen ?? Urinary: Remove Marrero POD1 ?? Disposition: Anticipate discharge to home. For any questions or concerns from 6 am until 6 pm, please page [place] Marie service at [phone] For urgent matters from 6 pm until 6 am, please page [facility] [place] at [facility] [phone] GE ACCOUNTS AUDIT CLERK documented in this encounter Consult Notes Dillon Manriquez O.T. - 08/13/2019 2:19 PM CST Occupational Therapy Acute Hospital Inpatient Evaluation/Treatment SUBJECTIVE Patient's Name: Josie Booker Referring/Attending Provider: Steve Jesus M.D. Medical Diagnosis: Stenosis Spinal [M48.00] Stenosis Spinal [M48.00] Reason for Referral: Occupational Therapy Evaluation and Treatment PT/OT evaluation and treatment; orthopedic rehab; spine-no neuro deficits Onset Date: 08/12/19 Payor: [facility] / Plan: [facility] [place] / Product Type: PPO / PERTINENT MEDICAL / SURGICAL HISTORY: Patient Active Problem List Diagnosis ??? Preoperative Exam ??? Stenosis Spinal Past Surgical History: Procedure Laterality Date ??? AUGMENTATION BREAST 2000 implants and 2010 replacement implants, 2019 implant reduction ??? CERVICAL FUSION 2009 C6-C7 fusion ??? DECOMPRESSION POSTERIOR LUMBAR AND FUSION N/A 08/12/2019 Procedure: Posterior lumbar decompression, Extend current fusion up to L3-4, proceed as indicated.;Surgeon: Steve Jesus M.D.; Location: [facility] OR ??? OTHER SURGICAL HISTORY Shoulder surgery October 2017 ??? SPINE SURGERY 1984 (L5/S1 fusion) and 2009 C6/C7 fusion ??? 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 Home Equipment Gait Devices : (none) Patient/Caregiver Goals: Pt hopes to return to her home with spouse assist. Patient Comments: Patient was agreeable to session and denies pain at rest. Activity Orders (From admission, onward) Start Ordered 08/12/19 1344 Activity: Up with Assistance Until discontinued Comments: Lumbar fusion - bed rest day of surgery. Bed to Chair BID POD #1. Sitting on the edge of the bed is OK evening of surgery. Out of bed to chair TID and Ambulate with assistance QID starting POD#1 Limit lifting to less than 10-15 lbs Do not bend or twist at the waist Limit sitting to 20-30 minute intervals. Patient should lie down or walk in between sitting periods.There are no limitations for sitting in a recliner chair. Question: Activity Level: Answer: Up with Assistance 08/12/19 1343 Precautions Other Precautions: corset; spine precautions; limit sitting to 20-30 minutes Fall Risk (65 and older) Fall in the last 12 months: No Are you fearful of falling?: No OBJECTIVE Activity Tolerance Endurance: Tolerates 10 - 20 min exercise with multiple rests Balance Static Sitting-Balance: Good (Maintains balance without support) Dynamic Sitting-Balance: Good (Maintains balance without support) Static Standing-Balance: Good (Maintains balance without support) Dynamic Standing-Balance: Good (Maintains balance without support) General ROM / Strength Screening ROM - Upper Extremity Screen: Addressed, no concerns noted ROM - Lower Extremity Screen: Addressed, no concerns noted Strength - Upper Extremity Screen: Addressed, no concerns noted Strength - Lower Extremity Screen: Addressed, no concerns noted Cognition Arousal/Alertness: Appropriate responses to stimuli Orientation: Oriented X4 Following Commands: Follows all commands and directions without difficulty Bed Mobility - Supine to Sit # of Assistants: 1 Level of Assistance: Supervision/Set-up, Modified Independent Cuing: Verbal, Tactile Comments: Initial verbal cues for technique and sequencing but then patient able to complete with modified independence - educated on spinal protection principles Transfer - Bed, Chair, Wheelchair Level of Assistance: Independent Transfers - Toilet Level of Assistance: Independent LE Dressing LE Dressing Level of Assistance: Supervision/Set-up, Modified independent LE Dressing Delivery: Instructed, Practiced LE Dressing Comments: Some initial cue for technique and sequencing but then patient able to progress to modified independence by the end of the session Toileting Toileting Level of Assistance: Modified independent Outcome Measures Current ADL Status: [facility] Inpatient Short Form: Putting on and taking off regular lower body clothing?: None Putting on and taking off regular upper body clothing?: None Taking care of personal grooming such as brushing teeth?: None Bathing (including washing, rinsing, drying)?: None Toileting, which includes using toilet, bedpan, or urinal?: None Eating meals?: None Daily Activities Raw Score (max 24): 24 Daily Activities Standardized Score: 57.54 Daily Activities CMS 0-100% Score: 0 Daily Activities CMS Modifier: CH Interpretation: Clinicians answer the [facility] Inpatient Short Form based on observed patient activityand/or clinical judgement (ie. patient can be scored without physically performing each activity) According to scoring guidelines: Those going to home had an average score of 20.1 Those going home with home care had an average score of 17.9 Those going to SNF had an average score of 14 Those going to IRF had an average score of 13.6 Those going to a LTAC had an average score of 11.5 Assessment Discharge Recommendation: Intermittent supervision Clinical Impression: Patient is doing very well following surgery and was able to demonstrate ability to complete activities of daily living and mobility with modified independence. Appears to have good family support and has met of all her OT goals in the initial session. No further intervention is needed. Rehab potential: Ms. Booker has Excellent potential to achieve established occupational therapy goals within the time frame outlined below. Tiered OT Evaluation Codes: Personal Factors: None Occupational Profile and History review: Expanded Performance Deficits: 1 - 3 performance deficits Evaluation Complexity: Low Functional Goals: OT Goal #1: Patient and/or caregiver will be able to teachback 3/3 spinal protection principles (no bending, lifting and twisting) to increase functional safety following discharge(Met) OT Goal #2: Patient will be able to verbalize understanding of activity modification and energy conservation strategies to improve functional performance and efficiency with activities of daily living.(MET) OT Goal #3: Patient will be able to complete functional transfers with modified independence to increase independence and decrease reliance on caregiver.(MEt) Progress: Discontinue OT Plan Patient agrees with the plan of care and goals. Plan: Discontinue therapy OT Frequency: One-time visit OT Duration: One session only Requires Inpatient Follow-Up: No Discontinue therapy Treatment interventions may include: Therapeutic exercise, Self-care/home management, Therapeutic functional activity Billing: Time Spent with Patient OT Evaluation (min): 16 min Home Management Training (min): 11 min Time Calculation Total Timed Units (min): 11 min Total Treatment Time (min): 27 min Functional G-code Worksheet Daily Activities Raw Score (max 24): 24 Daily Activities Standardized Score: 57.54 Daily Activities CMS 0-100% Score: 0 Daily Activities CMS Modifier: ZAHIRA Manriquez O.T. GE ACCOUNTS AUDIT CLERK Rebecca Dunaway M.S., R.N. - 08/13/2019 11:43 AM CSTAssociated Order(s): IP CONSULT TO CARE MANAGEMENT Discharge Planning Assessment SUBJECTIVE Referral Data Referral Source: Provider/Service Referral Name: Cameron Ruiz Referral Reason: Discharge Planning Discharge Planning: Early screen discharge Who was present during the interview?: Patient, Spouse Payment Rep Services Used: No Patient Information Primary Caregiver: Self Accompanied by/Relationship: Juan Booker/Spouse Jew/Cultural Factors: [place] Diet/Texture: By mouth Legal Information Legal Decision Maker: Self Advance Directives: Power of Swager Operator for health care, Power of Swager Operator for finance Power of Swager Operator for Health Care Agent Name: Juan Booker Power of Swager Operator for Health Agent Contact Info: [phone] Power of Swager Operator for Finance Agent Name: Juan Booker Power of Swager Operator for Finance Agent Contact Info: [phone] OBJECTIVE Functional Status (ADLs) Functional Status: Independent Assistive Devices: Eyeglasses Level of Assistance: Independent Dressing: Independent Feeding: Independent Bathing: Independent Grooming: Independent Toileting: Independent Transfer to/from Bed, Chair Etc.: Independent Mobility: Independent Meal Prep: Independent Medication Setup/Administration: Independent Telephone Use: Independent Housekeeping: Independent Shopping: Independent Managing Finances: Independent Behavior: Oriented Communication: Can write, Talks, Understands speaking, Understands Tajik, Reads Environmental Supports Home Environment: House Anticipated Modifications to the Patient's Home: None Anticipated Needs/Assistive Devices ADL Anticipated Needs: None Equipment Anticipated Needs: None Transportation Needs: Support from family Finance/Insurance Primary insurance: [employer] Secondary insurance: N/A Does the Patient have any Financial Concerns?: No Income Source: Employed Income/Expense Information: Income meets expenses Discharge Planning Barriers To Discharge: None Strengths: Support of immediate family, Premorbid level of function, Support of extended family/friends, Attitude of self, Attitude of family, Ability to acquire knowledge Type of Residence: Private residence Support Systems: Spouse, Children, Family members, Friends/neighbors Assistance Recommended after Discharge: None Home Care Services: No Anticipated Discharge Destination: Home or Self Care Does the patient need discharge transport arranged?: No ASSESSMENT / PLAN ??Assessment: Met with the patient and spouse to discuss her prior level of care and home going needs. I reviewed my role of Marine Operations Coordinator. Patient reviewed her current hospitalization and appears to have understanding, insight and competence of her needs. Patient reviewed her home environment and support system; reviewing that her primary patient care provider - self and spouse will be able to provide care to patient post discharge. Patient reports that she feels safe and supported to return home with spouse/S.O. ?? Patient reports understanding that she will return home when medically stable and reports no concerns with this plan. Plan: Patient and Spouse appears to have understanding into patient needs and is appropriately planning for discharge at this time. I recommended the following: none at this time 1. Patient plans to return Home once medically stable for DC 2. Resources given:None 3. CM will continue to follow for any needs that arise. 4. Transportation home will be provided by Self/Family , Juan. 5. Reconnections needed None Signed by: Rebecca Dunaway M.S., R.N. 08/13/2019 GE ACCOUNTS AUDIT CLERK Megan Cooper P.T. - 08/13/2019 11:28 AM CST Physical Therapy Inpatient Evaluation/Treatment SUBJECTIVE Patient's Name: Josie Booker Referring/Attending Provider: Steve Jesus M.D. Medical Diagnosis: Stenosis Spinal [M48.00] Stenosis Spinal [M48.00] Reason for Referral: PT Evaluate and Treat PT/OT evaluation and treatment; orthopedic rehab; spine-no neuro deficits Onset Date: 08/12/19 Payor: [employer] / Plan: [employer] [place] / Product Type: PPO / PERTINENT MEDICAL / SURGICAL HISTORY: Patient Active Problem List Diagnosis ??? Preoperative Exam ??? Stenosis Spinal Past Surgical History: Procedure Laterality Date ??? AUGMENTATION BREAST 1999 implants and 2010 replacement implants, 2019 implant reduction ??? CERVICAL FUSION 2009 C6-C7 fusion ??? DECOMPRESSION POSTERIOR LUMBAR AND FUSION N/A 08/12/2019 Procedure: Posterior lumbar decompression, Extend current fusion up to L3-4, proceed as indicated.;Surgeon: Steve Jesus M.D.; Location: [facility] OR ??? OTHER SURGICAL HISTORY Shoulder surgery October 2017 ??? SPINE SURGERY 1984 (L5/S1 fusion) and 2009 C6/C7 fusion ??? TONSILLECTOMY 1978 History of Present Illness: s/p posterior lumbar decompression and extension of previous L4-S1 fusion up to L3 Prior Function / Occupational Profile Level of [place]: Independent with ADLs and functional transfers Lives With: Spouse Home Equipment Gait Devices : (none) Home Living Type of Home: House Home Layout: One level Home Access: Stairs to enter without rails Entrance Stairs-Number of Steps: 2 Home Living Comments: Pt reports ambulating independently without gait aid prior to surgery. Family/Caregiver Present: Yes(spouse) Patient/Caregiver Goals: Pt hopes to return to her home with spouse assist. Patient Comments: Pt reports pain is well-controlled at rest; willing to participate in therapy. Activity Orders (From admission, onward) Start Ordered 08/12/19 1344 Activity: Up with Assistance Until discontinued Comments: Lumbar fusion - bed rest day of surgery. Bed to Chair BID POD #1. Sitting on the edge of the bed is OK evening of surgery. Out of bed to chair TID and Ambulate with assistance QID starting POD#1 Limit lifting to less than 10-15 lbs Do not bend or twist at the waist Limit sitting to 20-30 minute intervals. Patient should lie down or walk in between sitting periods.There are no limitations for sitting in a recliner chair. Question: Activity Level: Answer: Up with Assistance 08/12/19 1343 Precautions Other Precautions: corset; spine precautions; limit sitting to 20-30 minutes Fall Risk (65 and older) Fall in the last 12 months: No Are you fearful of falling?: No OBJECTIVE Cognition Overall Cognitive Status: Intact Attention: Addressed, no concerns noted Following Commands: Follows all commands and directions without difficulty Safety / Judgment: Addressed, no concerns noted Impulsive: Addressed, no concerns noted Neuro/Integumentary Screen: Neuro Screen: light touch sensation intact General ROM / Strength Screening ROM - Upper Extremity Screen: Addressed, no concerns noted ROM - Lower Extremity Screen: Addressed, no concerns noted Strength - Upper Extremity Screen: Addressed, no concerns noted Strength - Lower Extremity Screen: Addressed, no concerns noted Bed Mobility - Supine to Sit # of Assistants: 1 Level of Assistance: Supervision/Set-up Device: None Cuing: Verbal Transfer - Sit to Stand # of Assistants: 1 Device: Front wheeled walker Level of Assistance: Supervision/Set-up Transfer - Stand to Sit # of Assistants: 1 Level of Assistance: Supervision/Set-up Device: Front wheeled walker Transfer - Bed, Chair, Wheelchair # of Assistants: 1 Method: Stand pivot Device: fww vs none Level of Assistance: Supervision/ Set-up Transfers - Toilet # of Assistants: 1 Level of Assistance: Supervision/Set-up Balance Static Sitting-Balance: Good (Maintains balance without support) Dynamic Sitting-Balance: Good (Maintains balance without support) Static Standing-Balance: Good (Maintains balance without support) Dynamic Standing-Balance: Good (Maintains balance without support) Gait Assessment # of Assistants: 1 Level of Assistance: Supervision/Set-up Device: Front wheeled walker, None Distance (m): 30 m Cuing: Verbal Assessment of Gait: flexed posture, short step length, slow gait speed Training/Intervention: upright posture, heel-toe step pattern Education provided this session: spine precautions and The patient/family were educated on safe transfer techniques with functional mobility/activity. The following coordination of care occurred today: Contacted Patient's nurse regarding discharge/safety recommendations Patient was left in bedside chair at end of session with call light in reach, all needs met and questions answered. Outcome Measures AM-PAC Inpatient Short Form: AM-PAC Mobility: How much difficulty does the patient currently have??? Turning over in bed (including adjusting bedclothes, sheets and blankets)?: A Little Sitting down on and standing up from a chair with arms (e.g., wheelchair, bedside commode, etc.): A Little Moving from lying on back to sitting on the side of the bed?: A Little AM-PAC Mobility: How much help from another person does the patient currently need??? Moving to and from a bed to a chair: A Little Need to walk in hospital room?: A Little Climbing 3-5 steps with a railing?: A Little Basic Mobility Raw Score: 18 Basic Mobility Standardized Score: 43.63 Interpretation: Clinicians answer the -[facility] Inpatient Short Form based on observed patient activityand/or clinical judgement (ie. patient can be scored without physically performing each activity) According to scoring guidelines: Those going to home had an average score of 20.1 Those going home with home care had an average score of 17.9 Those going to SNF had an average score of 14 Those going to IRF had an average score of 13.6 Those going to a LTAC had an average score of 11.5 Assessment Discharge Recommendation: Intermittent supervision Equipment Recommended PT: Walker From a physical therapy perspective, the level of care above has been recommended for Ms. Booker after hospital discharge. This level of care is based on her functional abilities during today's session. This may change throughout the hospital course and will be updated as appropriate. Clinical Impression of today's session: Currently, patient presents with impairments including pain, spine precautions, decreased activity tolerance resulting in the following functional deficits: requires supervision for mobility, fair endurance, may benefit from assistive device. Progressed mobility out of bed to/from bathroom and bedsidechair. Pt demonstrated bed mobility, transfers, and short distance ambulation with supervision for safety; pt may benefit from utilizing fww for mobility for energy efficiency, safety, and pain relief.Pt's spouse able to provide supervision for mobility while hospitalized and upon discharge to home. Rehab potential: Ms. Booker has Excellent potential to achieve established physical therapy goals within the time frame outlined below. Tiered PT Evaluation Codes: Personal Factors: None Examination elements: 3 Clinical Presentation: Evolving Clinical Decision Making: Moderate: 1-2 complicating factors, 3 eval elements, evolving clinical presentation Functional Goals: PT Inpatient Goals PT Goal #1: Pt will supine <-> sit independently to demonstrate ability to return home. PT Goal #2: Pt will ambulate with least restrictive device with supervision for 50 meters to demonstrate ability to return home. PT Goal #3: Pt will go up/down 2 stairs with min assist to demonstrate ability to return home. Plan Patient agrees with the plan of care and goals. Treatment Plan: Plan: Plan of care initiated PT Frequency: 5x/week PT Duration: until goals met or hospital discharge Requires Inpatient Follow-Up: Yes PT - Next Inpatient Appointment: 08/16/19 Plan Comments: pt safe to ambulate with spouse assist with or without walker Treatment interventions may include: Therapeutic exercise, Therapeutic functional activity, Gait training Billing: Time Spent with Patient PT Evaluation (min): 15 min Therapeutic Activity (min): 20 min Total Timed Units (min): 20 min Total Treatment Time (min): 35 min Functional G-code Worksheet Basic Mobility Raw Score: 18 Basic Mobility Standardized Score: 43.63 CMS 0-100% Score: 46.58 % Basic Mobility CMS Modifier: GENESIS Cooper P.T. GE ACCOUNTS AUDIT CLERK documented in this encounter Nursing Notes Lino Ragland R.N. - 08/14/2019 1:10 PM CST Shift Goals: Clinical Goals for the Shift: adequate pain control and prepare for DC today Identify possible barriers to meeting goals/advancing plan of care: none End of Shift Summary: Discharge instructions given to patient. AVS brought with patient/family. All personal items packed up per patient/family. Escort sent patient down stairs and family transported patient. Patient/family had no further questions for RN or MD at this time. GE ACCOUNTS AUDIT CLERK Adina Pandya RAnita - 08/14/2019 3:39 AM CST Shift Goals: Clinical Goals for the Shift: Pt. will not be nauseous and have adequate pain control Identify possible barriers to meeting goals/advancing plan of care: nausea End of Shift Summary: Pain controlled overnight with scheduled tylenol and prn flexeril/tramadol. Reported feeling nauseous and constipated at 0100; phenergan and suppository given. Nausea improved andshe had a small BM. Dressing remains C/D/I. Tolerates ambulation with minimal assistance. Will continue to monitor. GE ACCOUNTS AUDIT CLERK Farhad Garcia R.N. - 08/13/2019 3:02 PM CST Shift Goals: Clinical Goals for the Shift: Pt. will not be nauseous and have adequate pain control Identify possible barriers to meeting goals/advancing plan of care: N/A End of Shift Summary: VSS and afebrile. No nausea or vomiting. Constant 4-5/10 on pain scale. Scheduled tylenol were the only pain meds given. One long walk, half w/o walker half w/ walker. Adequate intake and output. Geena Vaughn RAnita - 08/13/2019 5:03 AM CST Shift Goals: Clinical Goals for the Shift: adequate pain and nausea control Identify possible barriers to meeting goals/advancing plan of care: post op pain, nausea End of Shift Summary: Pt reported pain 3-4 out of 10 for most of shift. Pt reported nausea and had many bouts of emesis during beginning of shift, which made pain management more difficult at first. However, after Phenergan was administered, pt was able to tolerate taking Tylenol at 0130 and consume food without nausea. Pt is able to turn independently in bed. Pt passed PVRs. Pt maintained on bed rest during night. Plan is to mobilize today according to orders. Will continue to assess and monitor. Problem: PAIN - ADULT Goal: PT VERBALIZES/DEMONSTRATES ADEQUATE COMFORT LEVEL OR BASELINE Outcome: Progressing Problem: SKIN/TISSUE INTEGRITY Goal: Skin/Tissue integrity maintained or improved Outcome: Progressing Problem: SAFETY ADULT Goal: Maintain a safe environment Outcome: Progressing Problem: POTENTIAL OR ACTUAL PRESSURE INJURY-ADULT Goal: Nutrient intake appropriate for improving, restoring or maintaining skin integrity Outcome: Progressing Problem: Compromised Skin Integrity Goal: Skin/Tissue integrity maintained or improved Outcome: Progressing GE ACCOUNTS AUDIT CLERK Lino Ragland R.N. - 08/12/2019 6:13 PM CST Shift Goals: Clinical Goals for the Shift: adequate pain control Identify possible barriers to meeting goals/advancing plan of care: none End of Shift Summary: Pain tolerable with cold pack. Patient declines to take opioid medication unless she has higher pain. For activities, please refer to the service's order. GE ACCOUNTS AUDIT CLERK documented in this encounter OR Notes Op Note - Steve Jesus M.D. - 08/12/2019 8:51 AM CST FULL OP NOTE Procedure(s): Posterior lumbar decompression, Extend current fusion up to L3-4, proceed as indicated. Surgeon(s) and Role: * Steve Jesus M.D. - Primary * rAt Albert M.D. - Associate Professor Of Anthropology Anesthesia Type General Pre-operative Diagnosis Stenosis Spinal Post-operative Diagnosis Stenosis Spinal Findings As expected. This case was substantially more difficult than usual because of significant effort and difficulty mobilizing and identifying anatomical structures due to altered surgical field secondary to distorted anatomy and previous surgery.This case was substantially more difficult than usual because of lysing adhesions/ scar tissue for 70 minutes. Complications None Description of Procedure Procedure: 1. Exposure previous laminectomy site, L4-S1 2. Posterior Lumbar decompression, L3-5 3. Foraminotomies L3; bilaterally 4. Posterior lumbar fusion L3-4 5. Posterior spinal instrumentation, lumbar spine L3-5 6. Allograft bone grafting, femoral head 7. Autograft bone grafting, from previous fusion mass L4-S1 8. Neurophysiologic monitoring, (IONM) EMG 9. Use of the operating microscope Following correct identification of the patient and the procedure to be performed, the patient underwent Marrero catheter placement and a general anesthetic. They were positioned prone in pinions on the Julian table frame, all pressure points were padded, antibiotics were continued and tranexamic acid started. The wound was prepped and draped in the usual sterile fashion. Headlamp illumination and loupe magnification were used throughout the case. Surgical pause completed to verify the sponge and needle counts and that all equipment necessary for the case was present and functioning. The previous skin was excised and the spine exposed. Two radiographic markers were placed and biplanar fluoroscopy brought into the operating room. A secondary spine pause was performed involving the entire operative team. We compared the intraoperative fluoroscopy images to the preoperative x-rays that were available. Once consensus was obtained that we were in fact at the intended levels, the case commenced. The area of the previous fusion was identified. There was scarring around the L4-S1 levels and a large fusion mass present over these areas. The area was quite distorted due to the size of the fusion mass, but there was an abundance of bone which was later harvested for autologous bone graft. The quality of th,e bone graft was seen to be quite soft suggestive of some osteoporosis The spine was prepared to accept interpedicular instrumentation at L3 to L5. These were placed and intraoperative fluoroscopy verified the implants to be in acceptable position. These were additionallystimulated with intraoperative EMG and there was no worrisome signs of nerve irritation. The lateralpars and transverse processes of L3, 4, and 5 were decorticated, rods were selected, contoured to fit and placed. Attention was then directed to the fusion mass. Autologous bone graft was taken in the standard fashion. The autologous bone graft was then placed posterior and posterior laterally over the decorticated spine with a [facility] bone bank femoral head. Retractors were placed and using curettes, Kerrison rongeurs and an irrigated sydney tip Midas Gentry drill, a posterior decompression was performed at the L3-5 levels under microscope magnification. Theprevious decompression produced a large amount of distortion of the normal anatomy as the previous laminectomy site was identified and cleared. A laminoforaminotomy was performed at the L3-4 level removing the inferior third of L3 superior third of L4 and the lateral recess flush to the medial wall ofthe pedicles of L4. The L3 nerve roots were then identified and a foraminotomy performed following these out through the foramen. Bleeding was controlled with bipolar cautery and Gelfoam thrombin. The same procedure was then repeated at the L4-5 levels including foraminotomies. The wound was irrigated with saline. A surgical pause was performed. All spine sponge and needle counts were found to be correct, then the wound was closed in layers in watertight fashion with absorbable suture without a drain. Exparel local anesthetic was used throughout and a Prineo dressing placed and covered. Patient was awakened taken recovery in stable condition. Specimens None Drains [REMOVED] Indwelling Urinary Catheter Non-latex 16 Fr. (Removed) 08/12/19 0751 Placed by: Lisa Howard RN Placed by External Staff?: Hand Hygiene Performed Prior to Insertion: Yes Sterile technique followed?: Yes Catheter Type: Non-latex Tube Size (Fr.): 16 Fr. Catheter Balloon Size: 5 mL Urine Returned: Yes Removal Reason: Removed 08/12/19 1226 Estimated Blood Loss 500 mL Implants Implant Name Type Inv. Item Serial No. Biometric Screener Lot No. LRB No. Used Action [employer], FEMORAL HEAD - [id number] - [id number] Bone or Tissue [employer]OG[employer], FEMORAL HEAD [id number] [facility] [id number] Posterior 1 Implanted SPN SCRW EXP SLD 6.35 7X45 - SNA - [id number] Hardware e.g. pins/screws/rods SPN SCRW EXP SLD 6.35 7X45 NA Depuy Synthes NA Posterior 4 Implanted SPN SCRW EXP SLD 6.35 8X55 - SNA - [id number] Hardware e.g. pins/screws/rods SPN SCRW EXP SLD 6.35 8X55 NA Depuy Synthes NA Posterior [address] EXP SGL MONO 6.35 - SNA - [id number] Hardware e.g. pins/screws/rods SPN SCRW ST EXP SGL MONO 6.35 NA Depuy Synthes NA Posterior 5 Implanted SPN YARY EXP TN LD 6.35X45 - SNA - [id number] Hardware e.g. pins/screws/rods SPN YARY EXP TN LD 6.35X45 NA Depuy Synthes NA Posterior 1 Implanted SPN YARY EXP TN LD 6.35X65 - SNA - [id number] Hardware e.g. pins/screws/rods SPN YARY EXP TN LD 6.35X65 NA Depuy Synthes NA Posterior 1 Implanted Steve Jesus M.D. GE ACCOUNTS AUDIT CLERK Brief Op Note - Art Albert M.D. - 08/12/2019 8:51 AM CST BRIEF OP NOTE Procedure(s): Posterior lumbar decompression, Extend current fusion up to L3-4, proceed as indicated. Surgeon(s) and Role: * Steve Jesus M.D. - Primary * Art Albert M.D. - Associate Professor Of Anthropology Anesthesia Type General Pre-operative Diagnosis Stenosis Spinal Post-operative Diagnosis Stenosis Spinal Findings As expected. Complications None Specimens None Drains Indwelling Urinary Catheter Non-latex 16 Fr. (Active) 08/12/19 0751 Placed by: Lisa Howard RN Placed by External Staff?: Hand Hygiene Performed Prior to Insertion: Yes Sterile technique followed?: Yes Catheter Type: Non-latex Tube Size (Fr.): 16 Fr. Catheter Balloon Size: 5 mL Urine Returned: Yes Removal Reason: Estimated Blood Loss 500 mL Implants Implant Name Type Inv. Item Serial No. Biometric Screener Lot No. LRB No. Used Action [employer]OGEN[employer], FEMORAL HEAD - [id number] - [id number] Bone or Tissue ALLOGENIC, FEMORAL HEAD [id number] [facility] [id number] Posterior 1 Implanted SPN SCRW EXP SLD 6.35 7X45 - SNA - [id number] Hardware e.g. pins/screws/rods SPN SCRW EXP SLD 6.35 7X45 NA Depuy Synthes NA Posterior 4 Implanted SPN SCRW EXP SLD 6.35 8X55 - SNA - [id number] Hardware e.g. pins/screws/rods SPN SCRW EXP SLD 6.35 8X55 NA Depuy Synthes NA Posterior [address] EXP SGL MONO 6.35 - SNA - [id number] Hardware e.g. pins/screws/rods SPN SCRW ST EXP SGL MONO 6.35 NA Depuy Synthes NA Posterior 5 Implanted SPN YARY EXP TN LD 6.35X45 - SNA - [id number] Hardware e.g. pins/screws/rods SPN YARY EXP TN LD 6.35X45 NA Depuy Synthes NA Posterior 1 Implanted SPN YARY EXP TN LD 6.35X65 - SNA - [id number] Hardware e.g. pins/screws/rods SPN YARY EXP TN LD 6.35X65 NA Depuy Synthes NA Posterior 1 Implanted Art Albert M.D. GE ACCOUNTS AUDIT CLERK documented in this encounter Miscellaneous Notes Hospital Course - Art Albert M.D. - 08/14/2019 7:41 AM CST Surgery Information This Encounter Past Procedures (08/14/2018 to Today) Date Procedures Providers Location 08/12/2019 Posterior lumbar decompression, Extend current fusion up to L3-4, proceed as indicated. Steve Jesus M.D.Braig, Zachary V., M.D. [facility] Josie Booker was taken to the operative room by Steve Jesus MD for the procedure listed above. The intraoperative as well as the immediate postoperative course were uncomplicated. For further details of the surgery please see the operative note. The patient was transferred from the PACU to the general care floor for continued observation and monitoring. She progressed in the usual post-operative fashion without complications. The patient was treated with perioperative IV antibiotics. She was given liquids by mouth and eventually advanced as toleratedtowards a more general diet. Her pain was well controlled with oral pain medications. Physical therapy / Occupational therapy was consulted for assistance with mobilization and gait training. She was mobilizing without difficulty and was compliant with any activity restrictions. Her incision remained intact with no concerns. Her bowel and bladder function were acceptable. She then met criteria for discharge and was later dismissed from the hospital. For any further details please see the most recentorthopedic surgery progress note and any other co-managing teams dated 08/14/2019. GE ACCOUNTS AUDIT CLERK documented in this encounter Plan of Treatment Scheduled Referrals Name Type Priority Associated Order Schedule Diagnoses Orthopedic Surgery Outpatient Referral Routine Ex pected: office visit 12/11/2019 (clinic) (Approximate), Expires: 08/12/2022 documented as of this encounter Procedures Procedure Name Priority Date/Time Associated Comments Diagnosis FL FLUORO LESS THAN RAD - Routine 08/12/2019 12:14 Res ults for 1 HOUR (most inpatients PM CHARGE ACCOUNTS AUDIT CLERK this proced ure and all are in the outpatients) results section. DECOMPRESSION 08/12/2019 7:09 Stenosis Spinal POSTERIOR LUMBAR AM CHARGE ACCOUNTS AUDIT CLERK WITH FUSION IONM - EMG Routine 08/12/2019 7:03 Results for AM CHARGE ACCOUNTS AUDIT CLERK this procedure are in the results section. documented in this encounter Results CT Lumbar Spine without IV Contrast (12/15/2019 9:34 AM CDT) Anatomical Region Laterality Modality Lumbar Spine, Neuroradiology RST LOS, N/A Co mputed Tomography, Computed Neuroradiology ARZ LOS, Neuroradiology T omography FLA LOS Specimen (Source) Anatomical Collection Method Collection Time Re ceived Time Location / / Volume Laterality 12/15/2019 9:35 AM CDT Impressions 12/15/2019 10:38 AM CDT Intact posterior instrumented fusion from L3-L5 without evidence of hardware failure, loosening, or pseudoar throsis. Unchanged advanced foraminal narrowing bilaterally at L5-S1. Narrative 12/15/2019 10:38 AM CDT EXAM: CT LUMBAR SPINE WITHOUT IV CONTRAST COMPARISON: CT lumbar spine of 9. Outside MRI lumbar spine 09/09/2018. FINDINGS: History of posterior lumbar de compression with extension of fusion to L3-L4 on 08/12/2019, previous laminectom ies and posterior instrumentation fusion from L4-S1. Five lumbar type vertebral bodies with m aintained heights. Unchanged grade 2 anterolisthesis of L5 on S1. Since 11/20, there has been placement of intact yary and screw posterior instrumen ezekiel fusion hardware from L3-L4 on the right and L3-L5 on the left. Pedicle scr ews are well seated without surrounding lucency to suggest loosening. No evidenc e of pseudoarthrosis. Bone graft material is noted throughout the posteri or elements of L3, L4, and L5. New laminectomy changes of L3 and L4 in the adjacent spinal canal has been decompressed. Unchanged solid bony fusio n posteriorly from L4 to S1 and advanced bilateral L5-S1 foraminal narrowing. No high-grade foraminal narrowing at any other lumbar level. Procedure Note Woody Smith M.D. - 12/15/2019Fo rmatting of this note might be different from the original. EXAM: CT LUMBAR SPINE WITHOUT IV CONTRAS T COMPARISON: CT lumbar spine of 9. Outside MRI lumbar spine 09/09/2018. FINDINGS: History of posterior lumbar de compression with extension of fusion to L3-L4 on 08/12/2019, previous laminectom ies and posterior instrumentation fusion from L4-S1. Five lumbar type vertebral bodies with m aintained heights. Unchanged grade 2 anterolisthesis of L5 on S1. Since 11/20, there has been placement of intact yary and screw posterior instrumen ezekiel fusion hardware from L3-L4 on the right and L3-L5 on the left. Pedicle scr ews are well seated without surrounding lucency to suggest loosening. No evidenc e of pseudoarthrosis. Bone graft material is noted throughout the posteri or elements of L3, L4, and L5. New laminectomy changes of L3 and L4 in the adjacent spinal canal has been decompressed. Unchanged solid bony fusio n posteriorly from L4 to S1 and advanced bilateral L5-S1 foraminal narrowing. No high-grade foraminal narrowing at any other lumbar level. IMPRESSION: Intact posterior instrumented fusion fro m L3-L5 without evidence of hardware failure, loosening, or pseudoar throsis. Unchanged advanced foraminal narrowing bilaterally at L5-S1. Steve Jesus M.D. IMG CT PROCEDURES DX Entire Spine Scoliosis 2-3 Views (12/15/2019 7:39 AM CDT) Anatomical Region Laterality Modality Spine, Musculoskeletal RST LOS, Neuroradiology ARZ N/A Digital Radiography LOS, Muskuloskeletal FLA LOS Specimen (Source) Anatomical Collection Method Collection Time Re ceived Time Location / / Volume Laterality 12/15/2019 7:46 AM CDT Impressions 12/15/2019 7:48 AM CDT Full-length view of the entire spine obtained for scoliosis evaluation. ??Posterior fusion L3-L5 wit h yary and pedicle screw fixation and bone grafting. Marked anterior subluxation L5 on S1. Anterior fusion C6-C7 with plate and screw fixation and interbody bone gr afting. 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 Accentuation of lumbar lordosis. PO changes right shoulder. Narrative 12/15/2019 7:48 AM CDT EXAM: ??DX ENTIRE SPINE SCOLIOSIS 2-3 VIEWS Procedure Note Gloria Crocker M.D. - 12/15/2019Format ting of this note might be different from the original. EXAM: DX ENTIRE SPINE SCOLIOSIS 2-3 VIEW S IMPRESSION: Full-length view of the entire spine obt ained for scoliosis evaluation. Posterior fusion L3-L5 with yary and pedicle screw fixation and bone grafting. Marked anterior subluxation L5 on S1. Anterior fusion C6-C7 with plate and screw fixation and interbody bone gr afting. 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 Accentuation of lumbar lordosis. PO changes right shoulder. Steve Jesus M.D. IMG DIAGNOSTIC IMAGING [facility] Fluoro Less Than 1 Hour (08/12/2019 12:14 PM CHARGE ACCOUNTS AUDIT CLERK) Specimen (Source) Anatomical Location Collection Method / Collectio n Time Received Time / Laterality Volume Narrative [facility] RST - 08/12/2019 12:15 PM CS T This exam does not require a radiologist review or interpretation. Please refer to the patient's medical record on this date for clinical details. Steve Jesus M.D. IMG FLUOROSCOPY PROCEDURES Performing Organization Address City/State/ZIP Code Phon e Number 152 [facility] IONM - EMG (08/12/2019 7:03 AM CHARGE ACCOUNTS AUDIT CLERK) Specimen (Source) Anatomical Collection Method Collection Time Re ceived Time Location / / Volume Laterality 08/12/2019 10:00 AM CHARGE ACCOUNTS AUDIT CLERK Narrative EMG - 08/12/2019 12:26 PM CHARGE ACCOUNTS AUDIT CLERK 12-Aug-2019 ? Intraoperative Monitoring ? Final Report Study Number: 7 EMG Hole Digger Truck Driver: Oscar Choi. 127 or [phone] Referred by: STEVE JESUS (127 or [phone]) Referred for: Referral Code: ?1957 RX: 1959 SUMMARY: Free running needle electromyog yazmin (EMG) was monitored during lumbar decompression and extension of prior lumbar fusion up to L 3. Needle recording electrodes were placed in the following muscles bilaterally: adductor longus, rectus femoris, vastus lateralis, tibialis anterior, and medial gastrocnemius. I pe rsonally provided professional oversight for this surgery. EMG No mechanically provoked EMG activity wa s observed. Triggered EMG Pedicle screw stimulation resulted in tr iggered EMG activity at the following thresholds (pulse duration = 200 ? ??sec): Left L3 = 22 mA ? Left L4 = 20 mA ? Left L5 = 20 mA Right L3 = 35 mA Right L4 = 26 mA Start monitorin:35 Stop monitorin:29 I personally provided professional overs ight for this surgery. Real-time neurophysiologic data was avSpiration lable for me to view and interrogate contemporaneously. Throughout monitoring, there were provis ions for continuous and immediate communication directly with the operating room team in the surg ical suite. Cameron Choi (127 or [phone])/[facility] [place] Surgery ? Staff ?Minutes Hole Digger Truck Driver 114 ? Nuclear Test Technician 114 ? This interpretation has been electron ically signed: Oscar Choi DO, PhD at 08/12/2019 12:25:12 PM CHARGE ACCOUNTS AUDIT CLERK Procedure Note Alex Choi, DEarlOEarl, Ph.D. - 020 12-Aug-2019 Intraoperative Monitoring Fi nal Report Study Number: [id number] EMG Hole Digger Truck Driver: Oscar Choi. 127 or [phone] Referred by: STEVE JESUS (127 or [phone]) Referred for: Referral Code: 1958 RX: 8 SUMMARY: Free running needle electromyog yazmin (EMG) was monitored during lumbar decompression and extension of prior lumbar fusion up to L 3. Needle recording electrodes were placed in the following muscles bilaterally: adductor longus, rectus femoris, vastus lateralis, tibialis anterior, and medial gastrocnemius. I pe rsonally provided professional oversight for this surgery. EMG No mechanically provoked EMG activity wa s observed. Triggered EMG Pedicle screw stimulation resulted in tr iggered EMG activity at the following thresholds (pulse duration = 200 ? ??sec): Left L3 = 22 mA Left L4 = 20 mA Left L5 = 20 mA Right L3 = 35 mA Right L4 = 26 mA Start monitorin:35 Stop monitorin:29 I personally provided professional overs ight for this surgery. Real-time neurophysiologic data was nilo labeze for me to view and interrogate contemporaneously. Throughout monitoring, there were provis ions for continuous and immediate communication directly with the operating room team in the surg ical suite. Cameron Choi (127 or [phone])/[facility] [place] Surgery Staff Minutes Hole Digger Truck Driver 114 Nuclear Test Technician 114 This interpretation has been electron ically signed: Oscar Choi DO, PhD at 08/12/2019 12:25:12 PM CHARGE ACCOUNTS AUDIT CLERK Steve Jesus M.D. NEUROLOGY ORDERABLES Performing Organization Address City/State/ZIP Code Phon e Number [facility] documented in this encounter Visit Diagnoses Diagnosis Stenosis Spinal - Primary Arthrodesis Status Debility Decline Functional Status Preoperative Exam Arthrodesis Status Arthrodesis Status documented in this encounter Admitting Diagnoses Diagnosis Preoperative Exam Stenosis Spinal documented in this encounter Administered Medications Inactive Administered Medications - up to 3 most recent administrations Medication Order MAR Action Action Date Dose Rate Site acetaminophen injection 1,000 New Bag 08/12/2019 1:00 PM 1,000 mg 400 mL/hr mg (OFIRMEV) CHARGE ACCOUNTS AUDIT CLERK 1,000 mg, intravenous, at 400 mL/hr, Administer over 15 Minutes, Once as needed, If patient has not received in previous 6 hours, Starting on Yadira 08/12/19 at 0726, For 1 dose, PACU (only), Oral unless RASS less than -1 or nausea/vomiting. Do not use if given in last 6 hours, Restriction Criteria (Pharmacy will review and approve if criteria met): Unable to take or tolerate medications administered via the enteral route or orally (not just NPO) acetaminophen tablet 1,000 mg (TYLENOL) Given 08/14/2019 12:37 PM CHARGE ACCOUNTS AUDIT CLERK 1,000 mg 1,000 mg, oral, Every 6 hours, First dose on Yadira 08/12/19 at 1930 Given 08/14/2019 6:40 AM CHARGE ACCOUNTS AUDIT CLERK 1,000 mg Given 08/14/2019 1:33 AM CHARGE ACCOUNTS AUDIT CLERK 1,000 mg bisacodyl suppository 10 mg (DULCOLAX) Given 08/14/2019 1:34 AM CHARGE ACCOUNTS AUDIT CLERK 10 mg 10 mg, rectal, Daily PRN, constipation, Starting on Fri08/12/19 at 1343, Ordered sequence of administration: polyethylene glycol, then bisacodyl until BM achieved. ceFAZolin in dextrose (iso-os) IVPB 2 New Bag 08/13/2019 4:04 AM CHARGE ACCOUNTS AUDIT CLERK 2 g 200 mL/hr g (ANCEF) 2 g, intravenous, at 200 mL/hr, Administer over 30 Minutes, Every 8 hours, First dose (after last reorder) on Yadira 08/12/19 at 1930, For 2 doses, Start within 8 hours of last IV dose. premix bag, Drug Monitoring Program: Pharmacist to adjust medication dosing based on indication and drug clearance factors., Indications: Prophylaxis, surgical New Bag 08/12/2019 6:56 PM CHARGE ACCOUNTS AUDIT CLERK 2 g 200 mL/hr cyclobenzaprine tablet 5 mg (FLEXERIL) Given 08/14/2019 3:31 AM CHARGE ACCOUNTS AUDIT CLERK 5 mg 5 mg, oral, 3 times daily PRN, muscle spasms, Starting on Fri08/13/19 at 0620 Given 08/13/2019 4:14 PM CHARGE ACCOUNTS AUDIT CLERK 5 mg Given 08/13/2019 9:34 AM CHARGE ACCOUNTS AUDIT CLERK 5 mg droperidol injection 0.625 mg (INAPSINE) Given 08/12/2019 3:32 PM CHARGE ACCOUNTS AUDIT CLERK 0.625 mg 0.625 mg, intravenous, Every 6 hours PRN, nausea, vomiting, Starting on Yadira 08/12/19 at 1343, For 48 hours, Total of 3 doses in 24 hour period. RASS must be -2 or higher to administer. Reassess for nausea or vomiting after at least 10 minutes. If nausea or vomiting persists administer next ordered antiemetic medications (order for antiemetic medication administration ondansetron then droperidol then promethazine). fentaNYL injection 25 mcg (SUBLIMAZE) Given 08/12/2019 1:25 PM CHARGE ACCOUNTS AUDIT CLERK 25 mcg 25 mcg, intravenous, Every 2 min PRN, For pain 4 or greater (maximum 100 mcg). If max dose of Fentanyl is reached and if pain is greater than 4, discontinue Fentanyl: give Hydromorphone, Starting on Yadira 08/12/19 at 0726, PACU (only) Given 08/12/2019 1:00 PM CHARGE ACCOUNTS AUDIT CLERK 25 mcg lactated ringers Continued from OR 08/12/2019 12:40 PM 20 mL/hr 20 mL/hr 20 mL/hr, intravenous, CHARGE ACCOUNTS AUDIT CLERK Continuous, Starting on Yadira 08/12/19 at 0900 lactated ringers Continued from OR 08/12/2019 12:40 PM 20 mL/hr 20 mL/hr 20 mL/hr, intravenous, CHARGE ACCOUNTS AUDIT CLERK Continuous, Starting on Yadira 08/12/19 at 0900, PACU & Post-Op NaCl 0.9% infusion Restarted 08/13/2019 4:35 AM CHARGE ACCOUNTS AUDIT CLERK 100 mL/hr 100 mL/hr 100 mL/hr, intravenous, Continuous, Starting on Yadira 08/12/19 at 1345, May discontinue when PO intake is greater than 500cc in an 8 hour shift. New Bag 08/12/2019 3:20 PM CHARGE ACCOUNTS AUDIT CLERK 100 mL/hr 100 mL/hr ondansetron (PF) injection 4 mg (ZOFRAN) Given 08/12/2019 7:09 PM CHARGE ACCOUNTS AUDIT CLERK 4 mg 4 mg, intravenous, Every 6 hours PRN, nausea, vomiting, Starting on Yadira 08/12/19 at 1730, For 48 hours, Reassess for nausea or vomiting after at least 10 minutes. If nausea or vomiting persists administer next ordered antiemetic medications (order for antiemetic medication administration ondansetron then droperidol then promethazine). promethazine injection 6.25 mg (PHENERGA N) Given 08/14/2019 1:34 AM CHARGE ACCOUNTS AUDIT CLERK 6.25 mg 6.25 mg, intravenous, Every 6 hours PRN, nausea, vomiting, Starting on Yadira 08/12/19 at 1343, For 48 hours, RASS must be -2 or higher to administer. Reassess for nausea/vomiting after at least 10 minutes. If nausea or vomiting persists administer next ordered antiemetic medications (order for antiemetic medication administration ondansetron then droperidol then promethazine). Given 08/13/2019 7:26 PM CHARGE ACCOUNTS AUDIT CLERK 6.25 mg Given 08/12/2019 9:58 PM CHARGE ACCOUNTS AUDIT CLERK 6.25 mg sennosides-docusate sodium 8.6-50 mg per Given 08/14/2019 9:15 A M CHARGE ACCOUNTS AUDIT CLERK 1 tablet tablet 1 tablet (SENOKOT-S) 1 tablet, oral, 2 times daily, First dose on Yadira 08/12/19 at 2100, Do not give if patient has diarrhea. Given 08/13/2019 8:23 PM CHARGE ACCOUNTS AUDIT CLERK 1 tablet Given 08/13/2019 8:25 AM CHARGE ACCOUNTS AUDIT CLERK 1 tablet traMADol tablet 100 mg (ULTRAM) 100 mg, oral, Every 6 hours PRN, moderat e pain or score 4-6 of 10, severe pain or score 7-10 of 10, Starting on Yadira 08/12/19 at 1343, First line therapy or for pain greater than comfort goal (not to exceed 400 mg in 24 hours). traMADol tablet 50 mg (ULTRAM) Given 08/13/2019 7:26 PM CHARGE ACCOUNTS AUDIT CLERK 50 mg 50 mg, oral, Every 6 hours PRN, mild pain or score 1-3 of 10, Starting on Yadira 08/12/19 at 1343, First line therapy documented in this encounter Active and Recently Administered Medications Times are shown in CHARGE ACCOUNTS AUDIT CLERK. Scheduled Medication Order 08/12/2019 08/13/2019 08/14/2019 acetaminophen tablet 1,000 mg (TYLENOL) 1956 (Not Give n - Provider: Tu Carrillo - Reason: Other - Comment: Pt vomited immediatly after consumping) 0041 (Given - Provider: Tu Carrillo)0700 (Given - Provider: Tu Carrillo)1318 (Given - Provider: Farhad Garcia, R.N.)1839 (Given - Provider: Harsha Frances R.N.) 0133 (Given - Provider: Adina addison R.N.)0640 (Given - Provider: Adina Pandya R.N.)1237 (Given - Provider: Lino Ragland R.N.) 1,000 mg, oral, Every 6 hours, First dose on Yadira 08/12/19 at 1930 ceFAZolin in dextrose (iso-os) IVPB 2 g (ANCEF) (COMPL ETED) 1856 (New Bag - Provider: Lino Ragland R.N.) 0404 (New Bag - Provider: Tu Carrillo) 2 g, intravenous, at 200 mL/hr, Administ er over 30 Minutes, Every 8 hours, First dose (after last reorder) on Yadira 08/12/19 at 1930, For 2 doses, Start within 8 hours of last IV dose. premix bag, Drug Shauna toring Program: Pharmacist to adjust med ication dosing based on indication and drug clearance factors., Indications: Prophylaxis, surgical ceFAZolin injection 2,000 mg (ANCEF) (COMPLETED) 0824 (Given - Provider: Bishop Gomez, DYE RANGE OPERATOR CLOTH, PATENT ATTORNEY)1124 (Given - Provider: Breonna Doll, DYE RANGE OPERATOR CLOTH, PATENT ATTORNEY) 2,000 mg (rounded from 1,475 mg = 25 mg/ kg ? 59 kg Order-Specific weight), intravenous, Once, On Yadira 08/12/19 at 0745, For 1 dose, Intra-Op, Preoperatively within 1 hour prior to surgical incision If nee ded, reconstitute vial per package inser t instructions. See IVAG for administration guidelines. , Drug Monitoring Program: Pharmacist to adjust medication dosing based on indication and drug clearance factors., Indications: Prophylaxis, surgical sennosides-docusate sodium 8.6-50 mg per tablet 1 tabl et (SENOKOT-S) 195 (Given - Provider: Tu Carrillo - Comment: with other meds) 0825 (Given - Provider: Farhad Garcia R.N.)2022 (Given - Provider: Kerry Alston R.N.) 0915 (Given - Provider: Lino Ragland R.N.) 1 tablet, oral, 2 times daily, First dos e on Yadira 08/12/19 at 2100, Do not give if patient has diarrhea. Continuous Medication Order 08/12/2019 08/13/2019 08/14/2019 lactated ringers (CANCELED) 1240 (Continued from OR - Provider: Madonna Parmar R.N. - Comment: 1000cc in bag)1327 (Continue to Inpatient Floor - Provider: Madonna Parmar R.N.)1400 (Handoff - Provider: Lino Ragland R.N.)195 8 (Stopped - Provider: Geena Alex R.N.) 20 mL/hr, intravenous, Continuous, Starting on Yadira 08/12/19 at 090 0 lactated ringers (CANCELED) 1240 (Continued from OR - Provider: Madonna Parmar R.N. - Comment: 500cc in bag)1326 (Stopped - Provider: Madonna Parmar R.N.) 20 mL/hr, intravenous, Continuous, Start ing on Yadira 08/12/19 at 0900, PACU & Post-Op NaCl 0.9% infusion (CANCELED) 1520 (New Bag - Provider : Lino Ragland R.N.)1958 (Handoff - Provider: Tu Carrillo) 0229 (Stopped - Provider: Geena Alex R.N.)0435 (Restarted - Provider: Geena Alex R.N.)1320 (Stopped - Provider: Farhad Garcia R.N.) 100 mL/hr, intravenous, Continuous, Star ting on Yadira 08/12/19 at 1345, May discontinue when PO intake is greater than 500cc in an 8 hour shift. tranexamic acid 8 mg/mL in NaCl 0.9% 250 mL infusion ( CYKLOKAPRON) (CANCELED) 0825 (New Bag - Provider: Bishop Gomez APRN, PATENT ATTORNEY)1203 (Stopped - Provider: Bishop Gomez APRN, LYNETTE) 2 mg/kg/hr ? 59 kg Order-Specific weight (14.75 mL/hr, rounded to 14.8 mL/hr), intravenous, at 14.8 mL/hr, Continuous, Starting on Yadira 08/12/19 at 0745, Intra-Op, In OR until skin closure. Pharmacy to ad just infusion dose for renal function. premix bag PRN Medication Order 08/12/2019 08/13/2019 08/14/2019 acetaminophen injection 1,000 mg (OFIRMEV) (COMPLETED) 1300 (New Bag - Provider: Madonna Parmar R.N.)1313 (Stopped - Provider: Madonna Parmar R.N.) 1,000 mg, intravenous, at 400 mL/hr, Adm inister over 15 Minutes, Once as needed, If patient has not received in previous 6 hours, Starting on Yadira 08/12/19 at 0726, For 1 dose, PACU (only), Oral unless JAREN S less than -1 or nausea/vomiting. Do no t use if given in last 6 hours, Restriction Criteria (Pharmacy will review and approve if criteria met): Unable to take or tolerate medications administered via the enteral route or orally (not just NPO) benzocaine-menthol 15-3.6 mg per lozenge 1 lozenge (CEPACOL) 1 lozenge, oral, As needed, sore throat, Starting Yadira 08/12/19 at 1343 bisacodyl suppository 10 mg (DULCOLAX) 0134 (Given - Provider: Adina Pandya R.N.) 10 mg, rectal, Daily PRN, constipation, Starting on Yadira 08/12/19 at 1343, Ordered sequence of administration: polyethylene glycol, then bisacodyl until BM achieved. bupivacaine liposome (PF) 20 mL, bupivacaine 30 mL 50 mL injection (CANCELED) 1150 (Given - Provider: Art Albert M.D.) As needed, Starting on Yadira 08/12/19 at 1150, Intra-Op cyclobenzaprine tablet 5 mg (FLEXERIL) 0 934 (Given - Provider: Farhad Garcia, R.N.)1614 (Given - Provider: Harsha Frances R.N.) 0331 (Given - Provider: Adina Pandya R.N.) 5 mg, oral, 3 times daily PRN, muscle spasms, Starting on 05/23 at 0620 droperidol injection 0.625 mg (INAPSINE) 1532 (Given - Provider: Lino Ragland R.NEarl) 0.625 mg, intravenous, Every 6 hours PRN , nausea, vomiting, Starting on Yadira 08/12/19 at 1343, For 48 hours, Total of 3 doses in 24 hour period. RASS must be - 2 or higher to administer. Reassess for nausea or vomiting after at least 10 minutes. If nausea or vomiting persists administer next ordered antiemetic medications (order for antiemetic medication administration ondansetron then droperidol then promethazine). fentaNYL injection 25 mcg (SUBLIMAZE) (CANCELED) 1300 (Given - Provider: Madonna Parmar REarlN.)1325 (Given - Provider: Madonna Parmar RRegino.) 25 mcg, intravenous, Every 2 min PRN, Fo r pain 4 or greater (maximum 100 mcg). If max dose of Fentanyl is reached and if pain is greater than 4, discontinue Fentanyl: give Hydromorphone, Starting on Yadira 08/12/19 at 0726, PACU (only) HYDROmorphone (PF) injection 0.2 mg (DILAUDID) 0.2 mg, intravenous, Every 2 hour PRN, s evere pain or score 7-10 of 10, Starting Yadira 08/12/19 at 1343, For 5 doses, May administer if pain is greater than 7 after scheduled and PRN regimen exhausted. If p ain remains greater than 7, notify primary service. loratadine tablet 10 mg (CLARITIN) 10 mg, oral, Daily PRN, allergies, for o pioid induced pruritus, Starting Yadira 08/12/19 at 1343 microfibrillar collagen hemostat powder (AVITENE FLOUR ) (CANCELED) 0932 (Given - Provider: Steve Jesus M.D. - Comment: mixed with thrombin 10,000 units) As needed, Starting on Yadira 08/12/19 at 0932, Intra-Op naloxone injection 0.2 mg (NARCAN) 0.2 mg, intravenous, As needed, respirat ory depression, Starting Yadira 08/12/19 at 1343, For respiratory rate less than 8 breaths per minute or RASS score of -3, - 4, -5. Apply oxygen to keep oxygen saturations greater than 90% and notify service. ondansetron (PF) injection 4 mg (ZOFRAN) 1909 (Given - Provider: Lino Ragland R.N.) 4 mg, intravenous, Every 6 hours PRN, na usea, vomiting, Starting on Yadira 08/12/19 at 1730, For 48 hours, Reassess for nausea or vomiting after at least 10 minutes. If nausea or vomiting persists administer next ordered antiemetic medications (or daly for antiemetic medication administration ondansetron then droperidol then promethazine). polyethylene glycol powder packet 1 packet (MIRALAX) 1 packet, oral, Daily PRN, constipation, Starting Yadira 08/12/19 at 1343, Ordered sequence of administration: polyethylene glycol, then bisacodyl until BM achieved. Avoid mixing with starch-based thickened liquids. polyvinyl alcohol-povidone (PF) ophthalmic solution 2 drop (REFR ESH CLASSIC) 2 drop, both eyes, 4 times daily PRN, dry eyes, Starting Yadira 08/12 at 1343 povidone iodine 0.25% in NaCl 0.9% irrigation solution (COMPLETED) 1054 (Given - Provider: Steve Jesus M.D.) irrigation, Once in surgery, OR use only , Starting on Yadira 08/12/19 at 0742, For 1 dose, Intra-Op, IRRIGATION USE ONLY promethazine injection 6.25 mg (PHENERGAN) 1531 (Retur n to Cabinet - Provider: Lino Ragland R.N.)2157 (Given - Provider: Tu Carrillo) 1925 (Given - Provider: Kerry Alston RAnita) 0134 (Given - Provider: Adina addison R.N.) 6.25 mg, intravenous, Every 6 hours PRN, nausea, vomiting, Starting on Yadira 08/12/19 at 1343, For 48 hours, RASS must be -2 or higher to administer. Reassess for nausea/vomiting after at least 10 minutes. If nausea or vomiting persists administe r next ordered antiemetic medications (order for antiemetic medication administration ondansetron then droperidol then promethazine). traMADol tablet 100 mg (ULTRAM)(Linked Group 1) 1925 (See Alternative - Provider: Kerry Alston RAnita) 100 mg, oral, Every 6 hours PRN, moderat e pain or score 4-6 of 10, severe pain or score 7-10 of 10, Starting on Yadira 08/12/19 at 1343, First line therapy or for pain greater than comfort goal (not to exceed 400 mg in 24 hours). traMADol tablet 50 mg (ULTRAM)(Linked Group 1) 1925 (Given - Provider: Kerry Alston R.N. - Comment: Pt. requesting lower dose for nausea) 50 mg, oral, Every 6 hours PRN, mild leatha n or score 1-3 of 10, Starting on Yadira 08/12/19 at 1343, First line therapy tranexamic acid 600 mg in NaCl 0.9% IVPB (COMPLETED) 0 804 (New Bag - Provider: Bishop Gomez APRN, LYNETTE) 600 mg (rounded from 590 mg = 10 mg/kg ? 59 kg Order-Specific weight), intravenous, at 168 mL/hr, Administer over 20 Minutes, Once in surgery, OR use only, Starting on Yadira 08/12/19 at 0742, For 1 dose, Intra-Op Linked Groups Order Group 1: traMADol tablet 50 mg (ULTRAM)Jump to med 50 mg, oral, Every 6 hours PRN, mild leatha n or score 1-3 of 10, Starting on Yadira 08/12/19 at 1343
First line therapy
Or traMADol tablet 100 mg (ULTRAM)Jump to med 100 mg, oral, Every 6 hours PRN, moderat e pain or score 4-6 of 10, severe pain or score 7-10 of 10, Starting on Yadira 08/12/19 at 1343
First line therapy or for pain greater than comfort goal (not to exceed 400 mg in 24 hours).
documented in this encounter
--- OUTSIDE RECORDS SUMMARY | 2022-04-23 15:45 | XMS_ITS | Encounter Summary ---
:1970 Author Organization [facility] Address [address] [place] [address] Care Team Providers Name Role Phone Unavailable Primary Care Provider Unavailable Reason for Referral MRI/CAT/PET Scan (Routine) - Closed Specialty Diagnoses / Procedures Referred By Contact Refer red To Contact Radiology Diagnoses Arthrodesis Status Steve Jesus M.D. [facility] Procedures CT Lumbar Spine without IV Contrast [address] [place] [address] Referral ID Status Reason Start Date Expiration Date Visits Requ ested Visits Authorized [id number] Closed 08/12/2019 08/11/2020 1 1 Reason for Visit MRI/CAT/PET Scan (Routine) - Closed Specialty Diagnoses / Procedures Referred By Contact Refer red To Contact Radiology Diagnoses Arthrodesis Status Steve Jesus M.D. [facility] Procedures CT Lumbar Spine without IV Contrast [address] [place] [address] Referral ID Status Reason Start Date Expiration Date Visits Requ ested Visits Authorized [id number] Closed 08/12/2019 08/11/2020 1 1 Encounter Details Date Type Department Care Team Description 12/15/2019 Hospital Encounter Department of Darin Jesus Status Radiology, Inderjit Haskins M.D. Building, in [address] [place], [place] [address] [facility] [address] [place], [place] [phone] (Work) [phone] Social History Tobacco Use Types Packs/Day Years [...] or relatives? How often do you attend episcopalian or church More than 4 time s per year 11/30/2021 services? Do you belong to any clubs or organizations Yes 11/30/2021 such as episcopalian groups, unions, fraternal or athletic groups, or [...] place to sleep or slept in a fpc (including now)? Education Answer Date Recorded What is the highest level of school Master's degree (e.g., M A, MS, 08/08/2019 you have completed or the highest Anika, MEd, BRICK LAYER, SINDY) degree you have received? Sex Assigned [...] Procedure Name Priority Date/Time Associated Comments Diagnosis CT LUMBAR SPINE RAD - Routine 12/15/2019 9:34 Arthrodesis Status Re sults for this WITHOUT IV (most inpatients AM CDT procedure a re in CONTRAST and all the results outpatients) section. documented in this encounter Results CT [...] 11/20, there has been placement of intact robert and screw posterior instrumen ezekiel fusion hardware [...] 11/20, there has been placement of intact robert and screw posterior instrumen ezekiel fusion hardware [...] advanced foraminal narrowing bilaterally at L5-S1. Steve DONOHUE CT PROCEDURES documented in this encounter Visit Diagnoses Diagnosis Arthrodesis Status documented in this encounter
--- OUTSIDE RECORDS SUMMARY | 2022-04-23 15:45 | XMS_ITS | Encounter Summary ---
:1970 Author Organization [facility] Address [address] [place] [address] Care Team Providers Name Role Phone Unavailable Primary Care Provider Unavailable Encounter Details Date Type Department Care Team Description 08/11/2019 Education Department of Orthopedic Steve Sandy M.D. [address] [place] [address] Preoperative Exam Surgery in [facility], Tam Varner R.N. [address] [place] [address] [place] [address] [place] [address] Social History Tobacco Use Types Packs/Day [...] How often do you attend jainism or jewish More than 4 time s per year [...] place to sleep or slept in a long term (including now)? Education Answer Date Recorded What is the highest level of school Master's degree (e.g., M Harris, MS, 08/08/2019 you have completed or the highest Anika, MEd, LABORER PIPELINES, SINDY) degree you have received? Sex Assigned at Date Recorded Female 03/04/2018 7:21 PM CDT documented as of this encounter Progress Notes Tam Dan, R.N. - 08/11/2019 4:00 PM CST Spine Surgery ([id number]) given. Preventing Falls discussed. Pain Scale discussed. Peripheral nerve block education provided. New NPO guideline provided. Total Joint Replacement Brito Messages ([id number]) provided. Advance Directives ([id number]) provided. Anesthesia Options ([id number]) given. Patient and spouse attended orthopedic pre-operative class in preparation for Spine surgery on 08/12/[address] Jesus. Patient plans on discharging to Home Self Care. Patient currently has/owns no gait aides and was advised to not purchase any gait aides until after surgery. All questions answered; Patient verbalized understanding. [facility] TECH documented in this encounter Plan of Treatment Not on filedocumented as of this encounter Visit Diagnoses Diagnosis Preoperative Exam documented in this encounter
--- OUTSIDE RECORDS SUMMARY | 2022-04-23 15:45 | XMS_ITS | Encounter Summary ---
:1970 Author Organization [facility] Address [address] [place] [address] Care Team Providers Name Role Phone Unavailable Primary Care Provider Unavailable Reason for Referral Outpatient (Routine) - Closed Specialty Diagnoses / Procedures Referred By Contact Refer red To Contact Orthopedic Surgery Maria Teresa Villanueva M .D. [facility] [address] [place] [address] Referral ID Status Reason Start Date Expiration Date Visits Requ ested Visits Authorized [id number] Closed 12/15/2019 12/14/2020 1 1 Physical Therapy (Routine) - Closed Specialty Diagnoses / Procedures Referred By Contact Refer red To Contact Massage Therapy Diagnoses Stenosis Spinal Maria Teresa Villanueva M.D. [address] [place] [address] Referral ID Status Reason Start Date Expiration Visits Visits Date Requested Authorized [id number] Closed Patient 12/15/2019 12/14/2020 1 1 Preference Physical Therapy (Routine) - Closed Specialty Diagnoses / Procedures Referred By Contact Refer red To Contact Physical Therapy Diagnoses Stenosis Spinal Maria Teresa Villanueva M.D. [address] [place] [address] Referral ID Status Reason Start Date Expiration Visits Visits Date Requested Authorized [id number] Closed Patient 12/15/2019 12/14/2020 1 1 Preference Reason for Visit Outpatient (Routine) - Closed Specialty Diagnoses / Procedures Referred By Contact Refer red To Contact [facility] [address] [place] [address] Referral ID Status Reason Start Date Expiration Date Visits Requ ested Visits Authorized [id number] Closed 08/12/2019 08/11/2020 1 1 Encounter Details Date Type Department Care Team Description 12/15/2019 Office Visit Department of Steve Jesus [facility] Orthopedic Surgery ashley Haskins M.D. (Primary Dx) [place], [place] [address] [facility] [address] [place] [phone] [phone] Social History Tobacco Use Types Packs/Day Years [...] or relatives? How often do you attend gnosticist or amish More than 4 time s per year 11/30/2021 services? Do you belong to any clubs or organizations Yes 11/30/2021 such as gnosticist groups, unions, fraternal or athletic groups, or [...] have completed or the highest Anika, MEd, FRUIT HARVESTER MACHINE OPERATOR, SINDY) degree you have received? Sex Assigned at Date Recorded Female 03/04/2018 7:21 PM CDT documented as of this encounter Progress Notes Steve Jesus M.D. - 12/15/2019 9:30 AM CDT NAME: Josie Booker : 1970 TODAY'S DATE: 12/15/19 Pain reported: 0/10 - Denies pain CHIEF COMPLAINT: 4 month f/u HISTORY: Josie Booker is a 49 y.o. female who comes in today for follow up status post L3-4 decompression and extension of previous L4-S1 fusion on 08/12/19 for continued LBP and L>R LE pain andnumbness/tingling. She has been feeling well since surgery and feels her LLE symptoms have resolved.She did note some right glute and lateral thigh numbness starting in September that was not present preop, but this has been slowly improving. She has been taking tylenol and flexeril PRN for her pain. She has also been walking daily, going up to one hour before she has any symptoms. She has also been slowly increasing leg lifts and squats. She does note that her prior neck and thoracic pain have beenworsened recently since she is now spending many hours on the computer. Her thoracic pain is the worst, which is currently 8/10 and has recently been worsening. She does see a chiropractor for this. Her neck pain is currently 5/10. She notes a pain that radiates up the right side of her neck as well as into the axilla of the right arm. She does have a hx of prior C6-7 ACDF. She was previously managing these symptoms with a massage therapist, but unfortunately has been unable to do so recently. She also notes numbness in the median nerve distribution of her hand. Answers for HPI/ROS submitted by the patient on 12/12/2019 Fatigue: Yes Feeling nervous, anxious or on edge: Yes NEUROLOGICAL: Motor: No. Sensory: RUE: numbness in median nerve distribution of hand. Bladder: No. Bowel: No. Balance: No Manual [...] decreased libido. The following systems were negative: Skin, Eyes, ENT, CV, Respiratory, GI, Hematologic PHYSICAL EXAM: GENERAL: Alert, oriented, in no apparent distress. Handedness: Right-handed Skin: Prior incision well healed: (Posterior midline). Motor: Upper Extremity: Left Right Deltoids: 5/5 5/5 Biceps: 5/5 5/5 Triceps: 5/5 5/5 Wrist Ext: 5/ 5/5 Wrist Flex: / 5/5 Product Support Specialist: /5 5/5 Lower Extremity: Left Right Iliopsoas: /5 5/5 Quadriceps: 5/5 5/5 Tibialis Ant: / 5/5 EHL: 5/5 5/5 Gastrocs: 5/5 5/5 Hamstrings: 5/5 5/5 Reflexes: Bi Tri BR Pat Ach Maureen IBR Clonus RIGHT 2 2 2 2 2 - - 0-2bts LEFT 2 2 2 2 2 - - 0-2bts IMAGING: DX ENTIRE SPINE SCOLI 2-3 V IMPRESSION: Full-length view of the entire spine obtained for scoliosis evaluation. Posterior fusion L3-L5 with robert and pedicle screw fixation and bone grafting. Marked anterior subluxation L5 on S1. Anterior fusion C6-C7 with plate and screw fixation and interbody bone grafting. 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 Accentuation of lumbar lordosis. PO changes right shoulder. CT L SPINE IMPRESSION: Intact posterior instrumented fusion from L3-L5 without evidence of hardware failure, loosening, or pseudoarthrosis. Unchanged advanced foraminal narrowing bilaterally at L5-S1. ASSESSMENT: Josie Booker is a 49 y.o. female who is now 4 months s/p L3-4 decompression with extension of prior L4-S1 fusion on 08/12/19. Her preop LLE symptoms have resolved and she is healing well from that standpoint. She does have a flare of her previously known cervical and thoracic pain. PLAN: 1. She is healing well from her surgery. 2. She will start formal PT for lumbar stabilization and core strengthening. Rx given. 3. She was given an Rx for massage therapy for cervical and thoracic spine. We will not pursue any surgical intervention at this time. 4. She will restart the arthrotec (celebrex caused GI upset). Rx printed and given to pt. 5. We will plan on seeing her back in 1 year from surgery with XR. 6. All of her questions were answered and she is comfortable with the plan. She knows to contact theclinic if any questions should arise. Maria Teresa Villanueva M.D. The above history, physical, imaging, impression and plan were discussed with Dr. Jesus who waspresent and was in agreement. Kindly CC the following care team colleagues: PCP: No primary care provider on file. documented in this encounter Plan of Treatment Scheduled Referrals Name Type Priority Associated Order Schedule Diagnoses PT non-[facility] referral Outpatient Referral Routine Stenosis Spin al Expected: 12/15/2019 (Approximate), Expires: 12/14/2022 PT non-[facility] referral Outpatient Referral Routine Stenosis Spin al Expected: 12/15/2019 (Approximate), Expires: 12/14/2022 Orthopedic Surgery Outpatient Referral Routine Ex pected: office visit 08/11/2020 (clinic) (Approximate), Expires: 12/14/2022 documented as of this encounter Results DX Lumbar Spine 4+ [...] study. Maria Teresa DONOHUE DIAGNOSTIC IMAGING PROCE DURLEXA documented in this encounter Visit Diagnoses Diagnosis Stenosis Spinal - Primary Stenosis Spinal documented in this encounter
--- OUTSIDE RECORDS SUMMARY | 2022-04-23 15:45 | XMS_ITS | Encounter Summary ---
:1970 Author Organization [facility] Address [address] [place] [address] Care Team Providers Name Role Phone Unavailable Primary Care Provider Unavailable Encounter Details Date Type Department Care Team Description 08/11/2019 Hospital Encounter Department of [facility] Exam Laboratory Medicine Steve Haskins M.D. and Pathology, [address] in [place], [place] [address] [place] [address] [place], [place] (Work) [phone] Social History Tobacco Use Types Packs/Day Years [...] How often do you attend yazidi or confucianism More than 4 time s per year [...] have completed or the highest Anika, MEd, PERSONNEL RECRUITER, SINDY) degree you have received? Sex Assigned at Date Recorded Female 03/04/2018 7:21 PM CDT documented as of this encounter Medications at Time of Discharge Medication Sig Dispensed Refills Start Date End Date acetaminophen (TYLENOL) Take 1,000 mg by 0 500 mg tablet mouth as needed for pain. cholecalciferol, vitamin Take 1,000 Units by 0 D3, 25 mcg (1,000 Unit) mouth every tablet morning. acetaminophen (TYLENOL) Take 2 tablets 120 tablet [...] Indications: Acute Pain Exception. calcium carbonate 1,500 Take 1 tablet by 0 201512/07/2020 mg (600 mg calcium) mouth 2 (two) times tablet a day. One in AM, one in PM traMADol (ULTRAM) 50 mg Take 2 tablets (100 18 tablet 0 06/202008/18/2019 tabletIndications: Acute mg total) by mouth Pain [...] Priority Date/Time Associated Diagnosis Comme nts CBC WITH Routine 08/11/2019 8:17 AM Preoperative Exam Resu lts for this DIFFERENTIAL, B INTERFACE ANALYST procedure ar e in the results section. TYPE AND SCREEN Routine 08/11/2019 8:17 AM Preoperative Exam R esults for this INTERFACE ANALYST procedure are i n the results section. BASIC METABOLIC Routine 08/11/2019 8:17 AM Preoperative Exam R esults for this PANEL, S/P INTERFACE ANALYST procedure are i n the results section. documented in this encounter Results Type and Screen (with reflex Antibody ID) (08/11/2019 8:17 AM INTERFACE ANALYST) Patholo gist Method Time Signature ABORh A Neg Not 08/11/2019 ETRM applicable 11:12 AM INTERFACE ANALYST Antibody Negative Negative 08/11/2019 ETRM Screen 11:25 AM INTERFACE ANALYST Type & Screen 10/09/2019 08/11/2019 ETRM Expiration 23:59 11:12 AM INTERFACE ANALYST Testing [place] DEFAULT 08/11/2019 ETRM Location 9:05 AM INTERFACE ANALYST Specimen Anatomical Collection Method Collection Time Receive d Time (Source) Location / / Volume Laterality Blood (Blood, 08/11/2019 8:17 AM 08/11/19 20 9:05 Venous) INTERFACE ANALYST AM INTERFACE ANALYST Steve Jesus M.D. LAB BLOOD BANK TEST ORDERABL ES Performing Organization Address City/State/ZIP Code Phon e Number [facility] - [address] [place], [place] [address] [facility] [place] [address] [facility] [address] CBC with Differential (08/11/2019 8:17 AM INTERFACE ANALYST) P athologist Signature Hemoglobin 14.0 11.6 - 08/11/2019 DTL 15.0 g/dL 8:59 AM INTERFACE ANALYST Hematocrit 43.4 35.5 - 08/11/2019 DTL 44.9 % 8:59 AM INTERFACE ANALYST Erythrocytes 4.96 3.92 - 08/11/2019 DTL 5.13 8:59 AM INTERFACE ANALYST x10(12)/L MCV 87.5 78.2 - 08/11/2019 DTL 97.9 fL 8:59 AM INTERFACE ANALYST RBC Distrib Width 12.8 12.2 - 08/11/2019 DTL 16.1 % 8:59 AM INTERFACE ANALYST Platelet Count 235 157 - 371 08/11/2019 DTL x10(9)/L 8:59 AM INTERFACE ANALYST Leukocytes 4.5 3.4 - 9.6 08/11/2019 DTL x10(9)/L 8:59 AM INTERFACE ANALYST Neutrophils 2.65 1.56 - 08/11/2019 DTL 6.45 8:59 AM INTERFACE ANALYST x10(9)/L Lymphocytes 1.16 0.95 - 08/11/2019 DTL 3.07 8:59 AM INTERFACE ANALYST x10(9)/L Monocytes 0.56 0.26 - 08/11/2019 DTL 0.81 8:59 AM INTERFACE ANALYST x10(9)/L Eosinophils 0.12 0.03 - 08/11/2019 DTL 0.48 8:59 AM INTERFACE ANALYST x10(9)/L Basophils 0.05 0.01 - 08/11/2019 DTL 0.08 8:59 AM INTERFACE ANALYST x10(9)/L Specimen Anatomical Collection Method Collection Time Receive d Time (Source) Location / / Volume Laterality Blood (Blood, 08/11/2019 8:17 AM 08/11/19 20 8:34 Venous) INTERFACE ANALYST AM INTERFACE ANALYST Steve Jesus M.D. LAB BLOOD ADD-ON Performing Organization Address City/State/[facility] Code Phon e Number [facility] - [address] [place] [address] [facility] [place] [address] [facility] [address] [facility] (ABNORMAL) BMP (Basic Metabolic Panel) (08/11/2019 8:17 AM INTERFACE ANALYST) Analysis Performed At Patho logist Time Signature Potassium, S 3.8 3.6 - 5.2 08/11/2019 DTL mmol/L 9:59 AM INTERFACE ANALYST Sodium, S 142 135 - 145 08/11/2019 DTL mmol/L 9:59 AM INTERFACE ANALYST Chloride, S 102 98 - 107 08/11/2019 DTL mmol/L 9:59 AM INTERFACE ANALYST Bicarbonate, S 29 22 - 29 08/11/2019 DTL mmol/L 9:59 AM INTERFACE ANALYST Anion Gap 11 7 - 15 08/11/2019 DTL 9:59 AM INTERFACE ANALYST BUN (Blood Urea 22 (H) 6 - 21 08/11/2019 DTL Nitrogen), S mg/dL 9:59 AM INTERFACE ANALYST Creatinine 1.06 (H) 0.59 - 08/11/2019 DTL 1.04 mg/dL 9:59 AM INTERFACE ANALYST eGFR-Non 61 >=60 08/11/2019 DTL Black/ mL/min/BSA 9:59 AM INTERFACE ANALYST [place] Comment: ----ADDITIONAL INFORMATION---- Estimated GFR calculated using the 2009 CKD_EPI creatinine equation. eGFR-Black/ 70 >=60 mL/min/BSA 2019 9:59 AM INTERFACE ANALYST DTL Comment: ----ADDITIONAL INFORMATION---- Estimated GFR calculated using the 2009 CKD_EPI creatinine equation. Calcium, Total, S 9.7 8.6 - 10.0 mg/dL 08/11/2019 9:59 AM INTERFACE ANALYST DTL Glucose, S 89 70 - 140 mg/dL 08/11/2019 9:59 AM INTERFACE ANALYST D TL Specimen Anatomical Collection Method Collection Time Receive d Time (Source) Location / / Volume Laterality Blood (Blood, 08/11/2019 8:17 AM 08/11/19 20 8:34 Venous) INTERFACE ANALYST AM INTERFACE ANALYST Steve Jesus M.D. LAB BLOOD ADD-ON Performing Organization Address City/State/ZIP Code Phon e Number [facility] - [address] [place], [place] [address] [facility] [place] [address] [facility] [address] documented in this encounter Visit Diagnoses Diagnosis Preoperative Exam documented in this encounter
--- OUTSIDE RECORDS SUMMARY | 2022-04-23 15:45 | XMS_ITS | Encounter Summary ---
:1970 Author Organization [facility] Address [address] [place] [address] Care Team Providers Name Role Phone Unavailable Primary Care Provider Unavailable Reason for Visit Outpatient (Routine) - Closed Specialty Diagnoses / Procedures Referred By Contact Refer red To Contact Endocrinology Diagnoses Screening Osteoporosis Steve Jesus Gay Autumn Chavez [address] [place] [address] Referral ID Status Reason Start Date Expiration Date Visits Requ ested Visits Authorized [id number] Closed 09/14/2019 09/13/2020 1 1 Encounter Details Date Type Department Care Team Description 12/20/2019 Comprehensive Visit Division of Steve Jesus M.D. [address] [place] [phone] Osteopenia (Primary Dx); Endocrinology in Gerard Fagan M.D. [address] [place] [phone] Screening Osteoporosis [place], [place] [address] [place] [phone] Social History Tobacco Use Types Packs/Day Years [...] How often do you attend druze or restorationism More than 4 time s [...] have completed or the highest Anika, Tomas, OUTSIDE REPAIRER SPECIAL, SINDY) degree you have received? Sex Assigned at Date Recorded Female 03/04/2018 7:21 PM CDT documented as of this encounter Last Filed Vital Signs Vital Sign Reading Time Taken Comments Blood Pressure 123/83 12/20/2019 1:04 PM CDT Pulse 97 12/20/2019 1:04 PM CDT Temperature - - Respiratory Rate - - Oxygen Saturation - - Inhaled Oxygen Concentration - - Weight 65.7 kg (144 lb 13.5 oz) 12/20/2019 1:04 PM CDT Height 152.9 cm (5' 0.2) 12/20/2019 1:04 PM CDT Body Mass Index 28.1 12/20/2019 1:04 PM CDT documented in this encounter Consult Notes Gerard Fagan M.D. - 12/20/2019 1:30 PM CDT SUBJECTIVE REFERRAL SOURCE Steve Jesus M.D., Department of Orthopedic Surgery. REASON FOR CONSULT Moderate postmenopausal osteopenia, without recent fractures. HISTORY OF PRESENT ILLNESS The patient is a very pleasant 49-year-old female referred for evaluation and management of moderate postmenopausal osteopenia, without recent fractures. The patient recently underwent posterior lumbar decompression, with extension of fusion up to L3-L4 by Dr. Steve Jesus of the Department of Orthopedic Surgery on August 12, 2019. The patient tolerated her procedure well. Her current entire spine images and CT scan of her lumbar spine on December 15, 2019, showed no evidence of asymptomatic vertebral compression fractures or rib fractures. The patient has not previously had lifetime clinical fractures. The patient's imaging shows previous laminectomies and posterior instrumentation fusion from L4 to S1, with her surgeon on August 12, 2019, extending her fusion to L3-L4. Pedicle screws were well seated and without surrounding lucency to suggest loosening. No evidence of pseudoarthrosis. Bone graft material was noted throughout the posterior elements of L3, L4, and L5. New laminectomy changes of L3 and L4 in her adjacent spinal canal have decompressed her spinal cord. Unchanged solid bony fusion posteriorly from L4 to S1 was noted, with advanced bilateral L5-S1 foraminal narrowing. The patient apparently was told by Dr. Jesus that her bones were soft at surgery. The patient's bone density test here on August 11, 2019, showed her lowest T- score to be -2.0 at herright femoral neck site, diagnostic of moderate osteopenia. Her other hip T-scores ranged between -1.0 and -1.8, in the mildly to moderately osteopenic range. Her L1-L3 lumbar spine T-score was -0.6, di agnostic of normal bone density. No previous values available for comparison here. The patient's FRAX 10-year estimate of absolute hip fracture risk was 0.8%, with 10-year absolute risk of major osteoporotic fracture 11.6%. U.S. National Osteoporosis Foundation guidelines recommend treatment if risk of hip fracture is greater than 3.0%, or risk of major osteoporotic fracture greaterthan 20.0%. No previous recommendation for antiresorptive or anabolic therapy by report. The patient currently takes calcium carbonate 600 mg one tablet twice daily, with vitamin D3 5000 International Units each day, and a women's multivitamin containing an additional 300 to 400 mg of elemental calcium per tablet. Her serum 25-hydroxyvitamin D is pending. The patient's current laboratory studies on December 20, 2019, show normal serum calcium, phosphorus, albumin, and mildly increased creatinine at 1.06 mg/dL, with eGFR normal at 61 mL/minute. The patient's family history is significant for atypical femoral fractures in her mother, who apparently took Fosamax long-term for up to 10 years before her fractures. No other family history of osteoporosis, other metabolic bone disease calcium-containing kidney stones, blue sclerae, or hyperextensible joints. She has not previously had calcium-containing kidney stones. No previous treatment with high-dose glucocorticoid therapy, anti-seizure medication, or over- replacement with L-thyroxine therapy. The following portions of the patient's history were reviewed and updated as appropriate: allergies,current medication, family history, medical history, surgical history, social history, problem list. OBJECTIVE PHYSICAL EXAMINATION General: Well-nourished, well-developed, healthy-appearing female, in no acute distress. Skin: Scattered moles. No acanthosis nigricans, xanthomas, or xanthelasma. Eyes: Sclerae are white. No obvious cataracts or arcus senilis. ENT: Hearing intact. Dentition in good repair. Thyroid: No visible enlargement. Spine: No significant kyphosis. Extremities: No edema. Gait: Normal. Balance: Normal. Mental: Intact. ASSESSMENT / PLAN #1 Moderate postmenopausal osteopenia, without previous fractures The patient has never had a fracture during her lifetime. Her spine imaging currently shows no asymptomatic vertebral compression fractures or rib fractures. The patient was apparently told by Dr. Jesus that she had soft bone at surgery. This clinical observation is not matched by her current DXAbone density report or clinical history. The patient's spine fusion in August 2019 has already healed by imaging. There is no reason to recommend anabolic therapy with Forteo or Tymlos now to stimulate healing of her fusion. If Dr. Jesus is concerned about her soft bone at surgery, then she would likely benefit from Fosamax, Reclast, or Prolia, given that she does not need bone stimulation to heal her fusion at this point. She is advised to reduce her calcium intake to calcium carbonate 600 mg one tablet each day, and to check on the amount of calcium that is in her women's multivitamin. Her total daily calcium intake should not exceed 1200 mg elemental calcium because of the risk of calcium-containing kidney stones. Her serum 25- hydroxyvitamin D is pending. Her vitamin D dose may need to be reduced, depending on her serum 25-hydroxyvitamin D level. She is advised to continue to use care in situations likely to provoke falls. She will be cautious when lifting more than 15-20 pounds. Walking for exercise 3-4 days each week for 30-45 minutes each day should help protect her skeletal integrity. Her bone density test should be rechecked in two years. If Dr. Jesus wants the patient to be on medication to strengthen her bone density, then [id number] mg once a week would likely be her best first choice, given that her previous fusion has now healed. These issues were discussed in detail with the patient, and a variety of questions answered during her office visit today. PATIENT EDUCATION: Ready to learn, no apparent learning barriers were identified; learning preferences include listening. Explained diagnosis and treatment plan; patient expressed understanding of the content. This was a P3 visit for a total time spent with the patient of 40 minutes. Gerard Fagan M.D. CT CT Job ID: [id number] documented in this encounter Plan of Treatment Not on filedocumented as of this encounter Visit Diagnoses Diagnosis Osteopenia - Primary Screening Osteoporosis documented in this encounter
--- OUTSIDE RECORDS SUMMARY | 2022-04-23 15:45 | XMS_ITS | Encounter Summary ---
:1970 Author Organization [facility] Address [address] [place] [address] Care Team Providers Name Role Phone Unavailable Primary Care Provider Unavailable Encounter Details Date Type Department Care Team Description 08/11/2019 Hospital Encounter Department of [facility] Exam Laboratory Medicine Steve Haskins M.D. and Pathology, [address] in [place], [place] [address] [place] [address] [place], [place] (Work) [phone] Social History Tobacco Use Types Packs/Day Years [...] or relatives? How often do you attend scientology or rastafarian More than 4 time s per year 11/30/2021 services? Do you belong to any clubs or organizations Yes 11/30/2021 such as scientology groups, unions, fraternal or athletic groups, or [...] have completed or the highest Anika, MEd, CONSTRUCTION REPRESENTATIVE, SINDY) degree you have received? Sex Assigned [...] Name Priority Date/Time Associated Diagnosis Comme nts STAPHYLOCOCCUS AUREUS, Routine 08/11/2019 8:17 Preoperative Ex am Results for this PCR AM ELECTRIC METER INSTALLER procedure are i n the results section. MRSA CULTURE Routine 08/11/2019 8:14 Results for this AM ELECTRIC METER INSTALLER procedure are i n the results section. documented in this encounter Results (ABNORMAL) Staphylococcus aureus PCR (08/11/2019 8:17 AM ELECTRIC METER INSTALLER) Component Value Ref Range Test Analysis Performed Pathologis t Method Time At Signature Staphylococcus Swab, Nares 08/12/2019 DTL aureus PCR 1:13 PM ELECTRIC METER INSTALLER Specimen Source Result Positive Not 08/12/2019 DTL (A) Applicable 1:13 PM ELECTRIC METER INSTALLER Comment: ----ADDITIONAL INFORMATION---- This test was developed and its performa nce characteristics determined by [facility] in a manner consistent with CLIA requirements. This test has not been cleared or approved by the U.S. Aubrey d and Drug Administration. Specimen Anatomical Collection Method Collection Time Receive d Time (Source) Location / / Volume Laterality Varies (Nares) 08/11/2019 8:17 AM 020 8:45 ELECTRIC METER INSTALLER AM ELECTRIC METER INSTALLER Steve Jesus M.D. LAB MICROBIOLOGY - GENERAL O RDABILIO Performing Organization Address City/State/ZIP Code Phon e Number [facility] - [address] [place] [address] [facility] MRSA Culture (08/11/2019 8:14 AM ELECTRIC METER INSTALLER) Analysis Performed At Patho logist Time Signature MRSA Culture No growth 08/13/2019 DTL of MRSA 1:53 PM ELECTRIC METER INSTALLER Specimen Anatomical Collection Method Collection Time Receive d Time (Source) Location / / Volume Laterality Nares 08/11/2019 8:14 AM 0 ELECTRIC METER INSTALLER 11:53 AM ELECTRIC METER INSTALLER Comment: Specimen Source Site: SWAB Steve Jesus M.D. LAB MICROBIOLOGY - GENERAL O RDERABLES Performing Organization Address City/State/ZIP Code Phon e Number [facility] - [address] [place] [address] [facility] documented in this encounter Visit Diagnoses Diagnosis Preoperative Exam documented in this encounter
--- OUTSIDE RECORDS SUMMARY | 2022-04-23 15:45 | XMS_ITS | Encounter Summary ---
:1970 Author Organization [facility] Address [address] [place] [address] Care Team Providers Name Role Phone Unavailable Primary Care Provider Unavailable Reason for Referral Outpatient (Routine) - Closed Specialty Diagnoses / Procedures Referred By Contact Refer red To Contact Diagnoses Preoperative Exam Steve Jesus M.D. [facility] Procedures BMD Bone Density Spine Hips [address] [place] [address] Referral ID Status Reason Start Date Expiration Date Visits Requ ested Visits Authorized [id number] Closed 04/21/2019 04/20/2020 1 1 RETE BUCKET UNLOADER Reason for Visit Outpatient (Routine) - Closed Specialty Diagnoses / Procedures Referred By Contact Refer red To Contact Diagnoses Preoperative Exam Steve Jesus M.D. [facility] Procedures BMD Bone Density Spine Hips [address] [place] [address] Referral ID Status Reason Start Date Expiration Date Visits Requ ested Visits Authorized [id number] Closed 04/21/2019 04/20/2020 1 1 Encounter Details Date Type Department Care Team Description 08/11/2019 Hospital Encounter Department of Karly Jesusoper юлия Exam Radiology, Juan C Haskins M.D. [facility], in [address] [place], [place] [address] [facility] [address] [place], [place] [phone] (Work) [phone] Social History Tobacco Use Types Packs/Day Years [...] or relatives? How often do you attend moravian or rastafarian More than 4 time s per year 11/30/2021 services? Do you belong to any clubs or organizations Yes 11/30/2021 such as moravian groups, unions, fraternal or athletic groups, or [...] have completed or the highest Anika, MEd, ARTISTS' BOOKING REPRESENTATIVE, SINDY) degree you have received? Sex [...] 10 billion mouth every cell capsule morning. acetaminophen (TYLENOL) Take 2 tablets 120 [...] day. One in AM, one in PM mupirocin (BACTROBAN) 2 % Apply a dab to the 22 g 0 12/07/2020 ointment each nostril twice daily for 5 days. mv/FA/dha/epa/coQ10/Ca/D3/ Take 1 capsule by 0 12/03/2021 [...] Procedure Name Priority Date/Time Associated Comments Diagnosis BMD BONE DENSITY RAD - Routine 08/11/2019 8:59 Preoperative Exam Re sults for this SPINE HIPS (most inpatients AM CONCRETE BUCKET UNLOADER procedure a re in and all the results outpatients) section. documented in this encounter Results BMD Bone Density Spine Hips (08/11/2019 8:59 AM CONCRETE BUCKET UNLOADER) Anatomical Region Laterality Modality Hip, Lumbar Spine, Nuclear Medicine RST LOS, N/A Radiographic Imaging Musculoskeletal ARZ LOS, Muskuloskeletal FLA LOS Specimen (Source) Anatomical Collection Method Collection Time Re ceived Time Location / / Volume Laterality 08/11/2019 12:57 PM CONCRETE BUCKET UNLOADER Impressions 08/11/2019 12:57 PM CONCRETE BUCKET UNLOADER Osteopenia Narrative 08/11/2019 12:57 PM CONCRETE BUCKET UNLOADER EXAM: ??BMD BONE DENSITY SPINE HIPS FINDINGS: Left Hip [single scan]: ?Femur Neck: BMD = ??0.793 g/cm (sq ) ?T-score = -1.8 ?Z-score = - 0.9 ?Total Hip: BMD = ??0.879 g/cm (sq) ?T-score = -1.0 ?Z-score = - 0.5 Right Hip [single scan]: ?Femur Neck: BMD = ??0.761 g/cm (sq ) ?T-score = -2.0 ?Z-score = - 1.2 ?Total Hip: BMD = ??0.883 g/cm (sq) ?T-score = -1.0 ?Z-score = - 0.5 Lumbar Spine ??[single scan]: ?L1: BMD = 1.024 g/cm (sq), T-score =-1.0, Z-score =-0.3 ?L2: BMD = 1.107 g/cm (sq), T-score =-0.8, Z-score =-0.2 ?L3: BMD = 1.166 g/cm (sq), T-score =-0.4, Z-score = 0.2 ?Total Lumbar Spine: BMD = ??1.103 g/cm (sq) ?T-score = -0.6 ?Z-score = ? ?0.0 Trabecular Bone Scores: ?L1-L3: TBS = 1.494 Please note: A more comprehensive DXA re port, including images and graphs, is available in [employer]. ?In the absence of other causes of low BMD or demonstrated skeletal ?fragility, osteoporosis may be joce gnosed in post-menopausal ? women when the T-score i s at or below -2.5 as defined by ?the WHO. Osteopenia is present at T-scores between -1 and -2.5 and ?normal BMD when T-score is at or a ángela -1.0. The diagnosis in ?pre-menopausal women and men can b e based on low bone mass or ?evidence of skeletal fragility in the appropriate clinical setting. Based on the bone density results, and o n the patient's answers to the Fracture Risk Assessment questionnaire (please refer to appropria te image stored in the BMD study in [email or web address]), the calculated ten year probability of fracture is: FRAX Score Major Osteoporotic: 11.6% Hip Fracture: ? 0.8% Procedure Note Cindy Handy M.D. - 08/11/2019Form atting of this note might be different from the original. EXAM: BMD BONE DENSITY SPINE HIPS FINDINGS: Left Hip [single scan]: Femur Neck: BMD = 0.793 g/cm (sq) T-score = -1.8 Z-score = -0.9 Total Hip: BMD = 0.879 g/cm (sq) T-score = -1.0 Z-score = -0.5 Right Hip [single scan]: Femur Neck: BMD = 0.761 g/cm (sq) T-score = -2.0 Z-score = -1.2 Total Hip: BMD = 0.883 g/cm (sq) T-score = -1.0 Z-score = -0.5 Lumbar Spine [single scan]: L1: BMD = 1.024 g/cm (sq), T-score =-1. 0, Z-score =-0.3 L2: BMD = 1.107 g/cm (sq), T-score =-0. 8, Z-score =-0.2 L3: BMD = 1.166 g/cm (sq), T-score =-0. 4, Z-score = 0.2 Total Lumbar Spine: BMD = 1.103 g/cm (s q) T-score = -0.6 Z-score = 0.0 Trabecular Bone Scores: L1-L3: TBS = 1.494 Please note: A more comprehensive DXA re port, including images and graphs, is available in [facility]. In the absence of other causes of low B MD or demonstrated skeletal fragility, osteoporosis may be diagnose d in post-menopausal women when the T-score is at or below -2.5 as defined by the WHO. Osteopenia is present at T-sco res between -1 and -2.5 and normal BMD when T-score is at or above -1.0. The diagnosis in pre-menopausal women and men can be bas ed on low bone mass or evidence of skeletal fragility in the a [facility] setting. Based on the bone density results, and o n the patient's answers to the Fracture Risk Assessment questionnaire (please refer to appropria te image stored in the BMD study in [employer]), the calculated ten year probability of fracture is: FRAX Score Major Osteoporotic: 11.6% Hip Fracture: 0.8% IMPRESSION: Osteopenia Steve DONOHUE DXA PROCEDURES documented in this encounter Visit Diagnoses Diagnosis Preoperative Exam documented in this encounter
--- OUTSIDE RECORDS SUMMARY | 2022-04-23 15:45 | XMS_ITS | Encounter Summary ---
:1970 Author Organization [facility] Address [address] [place] [address] Care Team Providers Name Role Phone Unavailable Primary Care Provider Unavailable Encounter Details Date Type Department Care Team Description 08/12/2019 Ancillary Procedure Department of Orthopedic Surgery Social History Tobacco Use Types Packs/Day Years [...] How often do you attend worship or advent More than 4 time s per year [...] have completed or the highest Anika, MEd, BUFFET MANAGER, SINDY) degree you have received? Sex Assigned at Date Recorded Female 03/04/2018 7:21 PM CDT documented as of this encounter Plan of Treatment Not on filedocumented as of this encounter Procedures Procedure Name Priority Date/Time Associated Comments Diagnosis ORTHOPEDIC SURGERY Routine 08/12/2019 12:00 PM Re sults for this IMAGE EXAM TOY STUFFER procedure are i n the results section. documented in this encounter Results Unspecified-Orthopedic Surgery Image Exam (08/12/2019 12:00 PM TOY STUFFER) Specimen (Source) Anatomical Location Collection Method / Collectio n Time Received Time / Laterality Volume Narrative [facility] - 08/13/2019 9:08 AM TOY STUFFER This order has been created and auto-finalized to support the import of images acquired without order. The clini roberto documentation to support these images can be found on the encounter fatuma t produced images. Provider Not In System IMG NON RAD IMAGING PROCEDUR ES Performing Organization Address City/State/ZIP Code Phon e Number [facility] NA documented in this encounter Visit Diagnoses Not on filedocumented in this encounter
--- OUTSIDE RECORDS SUMMARY | 2022-04-23 15:45 | XMS_ITS | Encounter Summary ---
:1970 Author Organization [facility] Address [address] [place] [address] Care Team Providers Name Role Phone Unavailable Primary Care Provider Unavailable Encounter Details Date Type Department Care Team Description 12/15/2019 Hospital Encounter Department of Darin Jesus [facility] Status Radiology, Juan C Haskins M.D. [facility], in [address] [place] [address] [place] [phone] [place], [place] [phone] (Work) [phone] Social History Tobacco Use Types Packs/Day Years [...] or relatives? How often do you attend synagogue or rastafarian More than 4 time s per year 11/30/2021 services? Do you belong to any clubs or organizations Yes 11/30/2021 such as synagogue groups, unions, fraternal or athletic groups, or [...] have completed or the highest Anika, MEd, GUT SORTER, SINDY) degree you have received? Sex Assigned [...] Name Priority Date/Time Associated Comments Diagnosis DX ENTIRE SPINE RAD - Routine 12/15/2019 7:39 Arthrodesis Status Re sults for this SCOLIOSIS 2-3 (most inpatients AM CDT procedure are in VIEWS and all the results outpatients) section. documented in this encounter Results DX Entire Spine Scoliosis 2-3 Views (12/15/2019 [...] scoliosis evaluation. ??Posterior fusion L3-L5 wit h robert and pedicle screw fixation and bone [...] lumbar lordosis. PO changes right shoulder. Steve DONOHUE [facility]NOST[facility] [place] [facility] documented in this encounter Visit Diagnoses Diagnosis Arthrodesis Status documented in this encounter
--- OUTSIDE RECORDS SUMMARY | 2022-04-23 15:45 | XMS_ITS | Encounter Summary ---
:1970 Author Organization [facility] Address [address] [place] [address] Care Team Providers Name Role Phone Unavailable Primary Care Provider Unavailable Encounter Details Date Type Department Care Team Description 10/11/2019 Clinical Communication Department of Steve Jesus Orthopedic Surgery ashley Haskins M.D. [place], [place] [address] [facility] [address] [place] [address] [phone] Social History Tobacco Use Types Packs/Day Years [...] or relatives? How often do you attend jain or yarsanism More than 4 time s per year 11/30/2021 services? Do you belong to any clubs or organizations Yes 11/30/2021 such as jain groups, unions, fraternal or athletic groups, or [...] have completed or the highest Anika, MEd, FIELD SERVICE POULTRY TECHNICIAN, SINDY) degree you have received? Sex Assigned at Date Recorded Female 03/04/2018 7:21 PM CDT documented as of this encounter Plan of Treatment Not on filedocumented as of this encounter Visit Diagnoses Not on filedocumented in this encounter
--- OUTSIDE RECORDS SUMMARY | 2022-04-23 15:45 | XMS_ITS | Encounter Summary ---
:1970 Author Organization [facility] Address [address] [place] [address] Care Team Providers Name Role Phone Unavailable Primary Care Provider Unavailable Reason for Visit Auth/Cert Specialty Diagnoses / Procedures Referred By Contact Refer red To Contact Diagnoses Preoperative Exam Stenosis Spinal Primary Osteoarthritis Lumbar Spine Radiculopathy Lumbosacral Spondylolisthesis Acquired Fusion Lumbar Spine Status Post Preoperative Exam [Z01.818] Stenosis Spinal [M48.00] Procedures NV KRISTOFER/FACE/FORAMIN 1 SEG LUMB NV KRISTOFER/FACE/FORAMIN EA ADD SEG NV ARTHRDSIS LUMB POSTR TECHNIQUE NV POSTR NON SEGM INSTRUMENTATION NV AUTOGRAFT LOCAL SPINE SURG NV LMNCTMY EXCISN LSN EXTRA LUMB DECOMPRESSION POSTERIOR LUMB AR WITH FUSION, Extend current fusion up to L3-4. proceed as indicated Referral ID Status Reason Start Date Expiration Date Visits Requ ested Visits Authorized [id number] 1 1 Encounter Details Date Type Department Care Team Description 08/12/2019 Surgery RST ROMB MAIN OR Steve Jesus Posterior lumbar [address] Kathy Haskins decompression, [place] [address] [address] [facility] current fusion up to [phone] [place], [place] L3-4[place] [id number] indicated. Social History Tobacco Use Types Packs/Day Years [...] or relatives? How often do you attend sabianism or jain More than 4 time s per year 11/30/2021 services? Do you belong to any clubs or organizations Yes 11/30/2021 such as sabianism groups, unions, fraternal or athletic groups, or [...] have completed or the highest Anika, MEd, DIGITAL CARTOGRAPHIC TECHNICIAN, SINDY) degree you have received? Sex Assigned at Date Recorded Female 03/04/2018 7:21 PM CDT documented as of this encounter Last Filed Vital Signs Vital Sign Reading Time Taken Comments Blood Pressure 128/84 08/12/2019 2:30 PM MUTUAL FUND MANAGER Pulse 91 08/12/2019 2:45 PM MUTUAL FUND MANAGER Temperature 36.3 ??C (97.3 ??F) 08/12/2019 1:50 PM MUTUAL FUND MANAGER Respiratory Rate 15 08/12/2019 1:50 PM MUTUAL FUND MANAGER Oxygen Saturation 93% 08/12/2019 2:45 PM MUTUAL FUND MANAGER Inhaled Oxygen Concentration - - Weight 61.4 kg (135 lb 5.8 oz) 08/12/2019 6:45 AM MUTUAL FUND MANAGER Height 154 cm (5' 0.63) 08/12/2019 6:45 AM MUTUAL FUND MANAGER Body Mass Index 25.89 08/12/2019 6:45 AM MUTUAL FUND MANAGER documented in this encounter Discharge Summaries Art [...] we can arrange for you to see amnadira of Dr. Jesus's team. If you have any general questions or concerns please call during regular weekday working hours (8 am to 5 pm). For urgent issues at night or on weekends the patient may contact Dr. Jesus's service through the [facility] pierce and shave press operator at . This number should not be used for routine questions that can be answered during business hours. If you have an emergency, please call911. If you have a brace or abdominal [...] post the surgery date or by your [facility] physician or Nurse Practitioner or Physician Can Patcher. Leave the operative dressing in place for [...] indicated. Steve Jesus M.D.Braig, Zachary V., M.D. [facility] OR Josie Booker was taken [...] were provided to the patient and caregiver(s). AL FUND MANAGER documented in this encounter Discharge Instructions AttachmentsThe following attachments cannot be sent through Care Everywhere. Tramadol (By mouth) (South Korean)documented in this encounter Medications at Time of [...] CST PROGRESS NOTE Orthopedic Service: Dr. Jesus [facility] Admission Day: 08/12/2019 Hospital Day: 1 Date [...] pm, please page Ann Marie service at [phone] For urgent matters from 6 pm until 6 am, please page [facility] at [facility] [phone] AL FUND MANAGER Art Albert M.D. - 08/12/2019 2:02 PM CST POST-OPERATIVE [...] 6 am until 6 pm, please page [facility] at [phone] For urgent matters from 6 pm until 6 am, please page Regina Henderson at [facility] [phone] AL FUND MANAGER documented in this encounter Consult Notes Dillon Manriquez, O.T. - 08/13/2019 2:19 PM CST Occupational Therapy Acute Hospital Inpatient Evaluation/Treatment SUBJECTIVE Patient's Name: Josie Booker Referring/Attending Provider: Steve Jesus M.D. Medical Diagnosis: Stenosis Spinal [M48.00] Stenosis Spinal [M48.00] Reason for Referral: Occupational Therapy Evaluation and Treatment PT/OT evaluation and treatment; orthopedic rehab; spine-no neuro deficits Onset Date: 08/12/19 Payor: [employer] / Plan: [facility] [place] / Product Type: PPO / PERTINENT [...] proceed as indicated.;Surgeon: Steve Jesus M.D.; Location: [facility] OR ??? 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 - 08/13/2019 11:43 AM CSTAssociated Order(s): IP CONSULT TO CARE MANAGEMENT Discharge Planning Assessment SUBJECTIVE Referral Data Referral Source: Provider/Service Referral Name: Cameron Ruiz Referral Reason: Discharge Planning Discharge Planning: Early screen discharge Who was present during the interview?: Patient, Spouse Riprap Placing Supervisor Services Used: No Patient Information Primary Caregiver: Self Accompanied by/Relationship: Juan Booker/Spouse Mandaen/Cultural Factors: [place] Diet/Texture: By mouth Legal Information Legal Decision Maker: Self Advance Directives: Power of Substation Mechanic for health care, Power of Substation Mechanic for finance Power of Substation Mechanic for Health Care Agent Name: Juan Booker Power of Substation Mechanic for Health Agent Contact Info: [phone] Power of Substation Mechanic for Finance Agent Name: Juan Jhony Power of Substation Mechanic for Finance Agent Contact Info: [phone] OBJECTIVE Functional Status (ADLs) Functional Status: Independent Assistive Devices: Eyeglasses Level of Assistance: Independent Dressing: Independent Feeding: Independent Bathing: Independent Grooming: Independent Toileting: Independent Transfer to/from Bed, Chair Etc.: Independent Mobility: Independent Meal Prep: Independent Medication Setup/Administration: Independent Telephone Use: Independent Housekeeping: Independent Shopping: Independent Managing Finances: Independent Behavior: Oriented Communication: Can write, Talks, Understands speaking, Understands South Korean, Reads Environmental Supports Home Environment: House Anticipated Modifications to the Patient's Home: None Anticipated Needs/Assistive Devices ADL Anticipated Needs: None Equipment Anticipated Needs: None Transportation Needs: Support from family Finance/Insurance Primary insurance: [place] Secondary insurance: N/A Does the Patient have [...] going needs. I reviewed my role of Expander. Patient reviewed her current hospitalization and appears to have understanding, insight and competence of her needs. Patient reviewed her home environment and support system; reviewing that her primary wild animal caretaker - self and spouse will be able [...] needed None Signed by: Rebecca Dunaway M.S., REarlN. 08/13/2019 AL FUND MANAGER Megan Cooper P.T. - 08/13/2019 11:28 AM CST Physical Therapy Inpatient Evaluation/Treatment SUBJECTIVE Patient's Name: Josie Booker Referring/Attending Provider: Steve Jesus M.D. Medical Diagnosis: Stenosis Spinal [M48.00] Stenosis Spinal [M48.00] Reason for Referral: PT Evaluate and Treat PT/OT evaluation and treatment; orthopedic rehab; spine-no neuro deficits Onset Date: 08/12/19 Payor: [employer] / Plan: [facility] [place] / Product Type: PPO / PERTINENT MEDICAL / SURGICAL HISTORY: Patient Active Problem List Diagnosis ??? Preoperative Exam ??? Stenosis Spinal Past Surgical History: Procedure Laterality Date ??? AUGMENTATION BREAST 2000 implants and 2011 replacement implants, 2019 implant reduction ??? CERVICAL FUSION 2009 C6-C7 fusion ??? DECOMPRESSION POSTERIOR LUMBAR AND FUSION N/A 08/12/2019 Procedure: Posterior lumbar decompression, Extend current fusion up to L3-4, proceed as indicated.;Surgeon: Steve Jesus M.D.; Location: [facility] OR ??? OTHER SURGICAL HISTORY Shoulder surgery October 2017 ??? SPINE SURGERY 1984 (L5/S1 fusion) and 2009 C6/C7 fusion ??? TONSILLECTOMY 1978 History of Present Illness: s/p posterior lumbar decompression and extension of previous L4-S1 fusion up to L3 Prior Function / Occupational Profile Level of [place]: Independent with ADLs and functional transfers Lives [...] needs met and questions answered. Outcome Measures -[facility] Inpatient Short Form: AM-PAC Mobility: How much [...] Standardized Score: 43.63 Interpretation: Clinicians answer the AM-PAC Inpatient Short Form based on observed patient [...] CMS 0-100% Score: 46.58 % Basic Mobility [facility] Modifier: GENESIS Cooper P.T. AL FUND MANAGER documented in this encounter Nursing Notes Lino [...] for RN or MD at this time. AL FUND MANAGER Adina Pandya R.N. - 08/14/2019 3:39 AM CST Shift Goals: [...] with minimal assistance. Will continue to monitor. AL FUND MANAGER Farhad Garcia R.N. - 08/13/2019 3:02 PM [...] half w/ walker. Adequate intake and output. AL FUND MANAGER Geena Alex R.N. - 08/13/2019 5:03 AM CST Shift Goals: [...] Skin/Tissue integrity maintained or improved Outcome: Progressing AL FUND MANAGER Lino Ragland R.N. - 08/12/2019 6:13 PM CST Shift Goals: Clinical Goals for the Shift: adequate pain control Identify possible barriers to meeting goals/advancing plan of care: none End of Shift Summary: Pain tolerable with cold pack. Patient declines to take opioid medication unless she has higher pain. For activities, please refer to the service's order. AL FUND MANAGER documented in this encounter OR Notes Op Note - Steve Jesus M.D. - 08/12/2019 8:51 AM CST FULL OP NOTE Procedure(s): Posterior lumbar decompression, Extend current fusion up to L3-4, proceed as indicated. Surgeon(s) and Role: * Steve Jesus M.D. - Primary * Art Albert M.D. - Bread Stacker Anesthesia Type General Pre-operative Diagnosis Stenosis Spinal [...] laterally over the decorticated spine with a [facility] bone bank femoral head. Retractors were placed [...] Implant Name Type Inv. Item Serial No. Authorization Rep Lot No. LRB No. Used Action ALLOGENIC, FEMORAL HEAD - [id number] - [id number] Bone or Tissue ALLOGENIC, FEMORAL HEAD [id number] [facility] [id number] Posterior 1 Implanted SPN SCRW EXP SLD 6.35 7X45 - SNA - [id number] Hardware e.g. pins/screws/rods SPN SCRW EXP SLD 6.35 7X45 NA Depuy Synthes NA Posterior 4 Implanted SPN SCRW EXP SLD 6.35 8X55 - SNA - [id number] Hardware e.g. pins/screws/rods SPN SCRW EXP SLD 6.35 8X55 NA Depuy Synthes NA Posterior [address] EXP SGL MONO 6.35 - SNA - [id number] Hardware e.g. pins/screws/rods SPN SCRW ST EXP SGL MONO 6.35 NA Depuy Synthes NA Posterior 5 Implanted SPN YARY EXP NV LD 6.35X45 - SNA - [id number] Hardware e.g. pins/screws/rods SPN YARY EXP NV LD 6.35X45 NA Depuy Synthes NA Posterior 1 Implanted SPN YARY EXP NV LD 6.35X65 - SNA - [id number] Hardware e.g. pins/screws/rods SPN YARY EXP NV LD 6.35X65 NA Depuy Synthes NA Posterior 1 Implanted Steve Jesus M.D. AL FUND MANAGER Brief Op Note - Art Albert M.D. - 08/12/2019 8:51 AM CST BRIEF OP NOTE Procedure(s): Posterior lumbar decompression, Extend current fusion up to L3-4, proceed as indicated. Surgeon(s) and Role: * Steve Jesus M.D. - Primary * Art Albert M.D. - Bread Stacker Anesthesia Type General Pre-operative Diagnosis Stenosis Spinal [...] Implant Name Type Inv. Item Serial No. Authorization Rep Lot No. LRB No. Used Action ALLOGENIC, FEMORAL HEAD - [id number] - [id number] Bone or Tissue ALLOGENIC, FEMORAL HEAD [id number] [facility] [id number] Posterior 1 Implanted SPN SCRW EXP SLD 6.35 7X45 - SNA - [id number] Hardware e.g. pins/screws/rods SPN SCRW EXP SLD 6.35 7X45 NA Depuy Synthes NA Posterior 4 Implanted SPN SCRW EXP SLD 6.35 8X55 - SNA - [id number] Hardware e.g. pins/screws/rods SPN SCRW EXP SLD 6.35 8X55 NA Depuy Synthes NA Posterior [address] EXP SGL MONO 6.35 - SNA - [id number] Hardware e.g. pins/screws/rods SPN SCRW ST EXP SGL MONO 6.35 NA Depuy Synthes NA Posterior 5 Implanted SPN YARY EXP NV LD 6.35X45 - SNA - [id number] Hardware e.g. pins/screws/rods SPN YARY EXP NV LD 6.35X45 NA Depuy Synthes NA Posterior 1 Implanted SPN YARY EXP NV LD 6.35X65 - SNA - [id number] Hardware e.g. pins/screws/rods SPN YARY EXP NV LD 6.35X65 NA Depuy Synthes NA Posterior 1 Implanted Art Albert M.D. AL FUND MANAGER documented in this encounter Miscellaneous Notes Hospital Course - Art Albert M.D. - 08/14/2019 7:41 AM CST Surgery Information This Encounter Past Procedures (08/14/2018 to Today) Date Procedures Providers Location 08/12/2019 Posterior lumbar decompression, Extend current fusion up to L3-4, proceed as indicated. Steve Jesus M.D.Braig, Zachary V., M.D. [facility] OR Josie Booker was taken [...] and any other co-managing teams dated 08/14/2019. AL FUND MANAGER documented in this encounter Plan of Treatment Scheduled Referrals Name Type Priority Associated Order Schedule Diagnoses Orthopedic Surgery Outpatient Referral Routine Ex pected: office visit 12/11/2019 (clinic) (Approximate), Expires: 08/12/2022 documented as of this encounter Procedures Procedure Name Priority Date/Time Associated Comments Diagnosis FL FLUORO LESS THAN RAD - Routine 08/12/2019 12:14 Res ults for 1 HOUR (most inpatients PM MUTUAL FUND MANAGER this proced ure and all are in the outpatients) results section. DECOMPRESSION 08/12/2019 7:09 Stenosis Spinal POSTERIOR LUMBAR AM MUTUAL FUND MANAGER WITH FUSION IONM - [facility] Routine 08/12/2019 7:03 Results for AM MUTUAL FUND MANAGER this procedure are in the results section. [...] lumbar lordosis. PO changes right shoulder. Steve MORALEZG DIAGNOSTIC IMAGING PROCE DURES FL Fluoro Less Than 1 Hour (08/12/2019 12:14 PM MUTUAL FUND MANAGER) Specimen (Source) Anatomical Location Collection Method / Collectio n Time Received Time / Laterality Volume Narrative [facility] - 08/12/2019 12:15 PM CS T This exam does not require a radiologist review or interpretation. Please refer to the patient's medical record on this date for clinical details. Steve MORALEZG FLUOROSCOPY PROCEDURES Performing Organization Address City/State/ZIP Code Phon e Number [facility] IONM - [facility] (08/12/2019 7:03 AM MUTUAL FUND MANAGER) Specimen (Source) Anatomical Collection Method Collection Time Re ceived Time Location / / Volume Laterality 08/12/2019 10:00 AM MUTUAL FUND MANAGER Narrative [facility] - 08/12/2019 12:26 PM MUTUAL FUND MANAGER 12-Aug-2019 ? Intraoperative Monitoring ? Final Report Study Number: 7 EMG Product Architect: Oscar Choi. 127 or [phone] Referred by: STEVE JESUS (127 or [phone]) Referred for: Referral Code: ?1959 RX: 1959 [...] for this surgery. Real-time neurophysiologic data was avai lable for me to view and interrogate contemporaneously. Throughout monitoring, there were provis ions for continuous and immediate communication directly with the operating room team in the surg ical suite. Cameron Choi (127 or [phone])/[facility] Surgery ? Staff ?Minutes Product Architect 114 ? Cdl A Driver 114 ? This interpretation has been electron ically signed: Oscar Choi, , PhD at 08/12/2019 12:25:12 PM MUTUAL FUND MANAGER Procedure Note Alex Choi D.O., Ph.D. - 020 12-Aug-2019 Intraoperative Monitoring Fi nal Report Study Number: 7 EMG Product Architect: Oscar Choi. 127 or [phone] Referred by: STEVE JESUS (127 or [phone]) Referred for: Referral Code: 8 RX: 8 SUMMARY: Free running needle electromyog yazmin (EMG) was monitored during lumbar decompression and extension of prior lumbar fusion up to L 3. Needle recording electrodes were placed in the following muscles bilaterally: adductor longus, rectus femoris, vastus lateralis, tibialis anterior, and medial gastrocnemius. I wolf rsonally provided professional oversight for this surgery. [...] for this surgery. Real-time neurophysiologic data was avai lable for me to view and interrogate contemporaneously. Throughout monitoring, there were provis ions for continuous and immediate communication directly with the operating room team in the surg ical suite. Cameron Choi (127 or [phone])/[facility] Surgery Staff Minutes Product Architect 114 Cdl A Driver 114 This interpretation has been electron ically signed: Oscar Choi DO, PhD at 08/12/2019 12:25:12 PM MUTUAL FUND MANAGER Steve Jesus M.D. NEUROLOGY ORDERABLES Performing Organization Address City/State/ZIP Code Phon e Number [facility] documented in this encounter Visit Diagnoses Diagnosis Stenosis Spinal - Primary Arthrodesis Status Debility Decline Functional Status Preoperative Exam Stenosis Spinal Arthrodesis Status Arthrodesis Status documented in this encounter Admitting Diagnoses Diagnosis Preoperative Exam Stenosis Spinal documented in this encounter Administered Medications Inactive Administered Medications - up to 3 most recent administrations Medication Order MAR Action Action Date Dose Rate Site acetaminophen tablet 1,000 mg Given 08/14/2019 12:37 PM MUTUAL FUND MANAGER 1,00 0 mg (TYLENOL) 1,000 mg, oral, Every 6 hours, First dose on Yadira 08/12/19 at 1930 Given 08/14/2019 6:40 AM MUTUAL FUND MANAGER 1,000 mg Given 08/14/2019 1:33 AM MUTUAL FUND MANAGER 1,000 mg bisacodyl suppository 10 mg (DULCOLAX) Given 08/14/2019 1:34 AM MUTUAL FUND MANAGER 10 mg 10 mg, rectal, Daily PRN, constipation, Starting on Yadira 08/12/19 at 1343, Ordered sequence of administration: polyethylene glycol, then bisacodyl until BM achieved. bupivacaine liposome (PF) 20 mL, bupivacaine Given 04/2020 11:50 AM MUTUAL FUND MANAGER 50 mL 30 mL 50 mL injection As needed, Starting on Yadira 08/12/19 at 1150, Intra-Op cyclobenzaprine tablet 5 mg (FLEXERIL) Given 08/14/2019 3:31 AM MUTUAL FUND MANAGER 5 mg 5 mg, oral, 3 times daily PRN, muscle spasms, Starting on Fri08/13/19 at 0620 Given 08/13/2019 4:14 PM MUTUAL FUND MANAGER 5 mg Given 08/13/2019 9:34 AM MUTUAL FUND MANAGER 5 mg droperidol injection 0.625 mg (INAPSINE) Given 08/12/2019 3:32 PM MUTUAL FUND MANAGER 0.625 mg 0.625 mg, intravenous, Every 6 [...] medication administration ondansetron then droperidol then promethazine). microfibrillar collagen hemostat Given 08/12/2019 9:32 AM MUTUAL FUND MANAGER 1 application Back powder (AVITENE FLOUR) As needed, Starting on Yadira 08/12/19 at 0932, Intra-Op ondansetron (PF) injection 4 mg (ZOFRAN) Given 08/12/2019 7:09 PM MUTUAL FUND MANAGER 4 mg 4 mg, intravenous, Every 6 hours PRN, nausea, vomiting, Starting on Yadira 08/12/19 at 1730, For 48 hours, Reassess for nausea or vomiting after at least 10 minutes. If nausea or vomiting persists administer next ordered antiemetic medications (order for antiemetic medication administration ondansetron then droperidol then promethazine). povidone iodine 0.25% in NaCl 0.9% Given 08/12/2019 10:54 AM MUTUAL FUND MANAGER 150 mL irrigation solution irrigation, Once in surgery, OR use only, Starting on Yadira 08/12/19 at 0742, For 1 dose, Intra-Op, IRRIGATION USE ONLY promethazine injection 6.25 mg (PHENERGA N) Given 08/14/2019 1:34 AM MUTUAL FUND MANAGER 6.25 mg 6.25 mg, intravenous, Every 6 hours PRN, nausea, vomiting, Starting on Yadira 08/12/19 at 1343, For 48 hours, RASS must be -2 or higher to administer. Reassess for nausea/vomiting after at least 10 minutes. If nausea or vomiting persists administer next ordered antiemetic medications (order for antiemetic medication administration ondansetron then droperidol then promethazine). Given 08/13/2019 7:26 PM MUTUAL FUND MANAGER 6.25 mg Given 08/12/2019 9:58 PM MUTUAL FUND MANAGER 6.25 mg sennosides-docusate sodium 8.6-50 mg per Given 08/14/2019 9:15 A M MUTUAL FUND MANAGER 1 tablet tablet 1 tablet (SENOKOT-S) 1 tablet, oral, 2 times daily, First dose on Yadira 08/12/19 at 2100, Do not give if patient has diarrhea. Given 08/13/2019 8:23 PM MUTUAL FUND MANAGER 1 tablet Given 08/13/2019 8:25 AM MUTUAL FUND MANAGER 1 tablet traMADol tablet 100 mg (ULTRAM) 100 mg, oral, Every 6 hours PRN, moderat e pain or score 4-6 of 10, severe pain or score 7-10 of 10, Starting on Yadira 1/9/20 at 1343, First line therapy or for pain greater than comfort goal (not to exceed 400 mg in 24 hours). traMADol tablet 50 mg (ULTRAM) Given 08/13/2019 7:26 PM MUTUAL FUND MANAGER 50 mg 50 mg, oral, Every 6 hours PRN, mild pain or score 1-3 of 10, Starting on Yadira 08/12/19 at 1343, First line therapy documented in this encounter Active and Recently Administered Medications Times are shown in MUTUAL FUND MANAGER. Scheduled Medication Order 08/12/2019 08/13/2019 08/14/2019 acetaminophen tablet 1,000 mg (TYLENOL) 1955 (Not Give n - Provider: Tu Carrillo - Reason: Other - Comment: Pt vomited immediatly after consumping) 0041 (Given - Provider: Tu Carrillo)0700 (Given - Provider: Tu Carrillo)1318 (Given - Provider: Farhad Garcia R.N.)1839 (Given - Provider: Harsha Frances R.N.) 0133 (Given - Provider: Adina addison, R.N.)0640 (Given - Provider: Adina Pandya R.N.)1237 [...] (ANCEF) (COMPLETED) 0824 (Given - Provider: Bishop Gomez APRN, COMMANDER INTERNAL AFFAIRS)1124 (Given - Provider: Breonna Doll APRN, COMMANDER INTERNAL AFFAIRS) 2,000 mg (rounded from 1,475 mg = [...] mg per tablet 1 tabl et (SENOKOT-S) 1956 (Given - Provider: Tu Carrillo - Comment: with other meds) 0825 (Given - Provider: Farhad Garcia REarlNEarl)2022 (Given - Provider: Kerry Alston R.N.) 0915 [...] R.N.)195 8 (Stopped - Provider: Geena Alex RAnita) 20 mL/hr, intravenous, Continuous, Starting on Yadira 08/12/19 at 090 0 lactated ringers (CANCELED) 1240 (Continued from OR - Provider: Clarence WorrellN. - Comment: 500cc in bag)1326 (Stopped - Provider: Clarence WorrellNEarl) 20 mL/hr, intravenous, Continuous, Start ing on [...] (New Bag - Provider: Bishop Gomez APRN, LYNETTE)1203 (Stopped - Provider: Bishop Gomez APRN, LYNETTE) 2 mg/kg/hr ? 59 kg Order-specific weight [...] Parmar REarlN.)1325 (Given - Provider: Madonna Parmar R.N.) 25 mcg, intravenous, Every 2 min PRN, [...] Ragland R.N.)2157 (Given - Provider: Tu Carrillo) 192 (Given - Provider: Kerry Alston R.N.) 0134 (Given - Provider: Adina addison REarlNEarl) 6.25 mg, intravenous, Every 6 hours PRN, [...] 1925 (See Alternative - Provider: Kerry Alston R.N.) 100 mg, oral, Every 6 hours PRN, [...] 0 804 (New Bag - Provider: Bishop Gomez, TELEGRAPH PLANT MAINTAINER, COMMANDER INTERNAL AFFAIRS) 600 mg (rounded from 590 mg = [...]
--- OUTSIDE RECORDS SUMMARY | 2022-04-23 15:45 | XMS_ITS | Encounter Summary ---
:1970 Author Organization [facility] Address [address] [place] [address] Care Team Providers Name Role Phone Unavailable Primary Care Provider Unavailable Reason for Visit Reason Comments COVID Nurse Line Encounter Details Date Type Department Care Team Description 12/01/2019 Clinical Communication Department of TRINI Jesus Nurse Line Orthopedic Surgery Steve Haskins M.D. in [place], [facility] [address] [place], [place] [address] [place] [phone] [place], [place] [phone] (Work) [phone] Social History Tobacco Use Types Packs/Day Years [...] How often do you attend yazdanism or congregational More than 4 time s per year [...] place to sleep or slept in a jail (including now)? Education Answer Date Recorded What is the highest level of school Master's degree (e.g., M A, MS, 08/08/2019 you have completed or the highest Anika, MEd, COLLEGE SPORTS COACH, SINDY) degree you have received? Sex Assigned at Date Recorded Female 03/04/2018 7:21 PM CDT documented as of this encounter Miscellaneous Notes Telephone Encounter - Brittanie Reyna - 12/01/2019 12:15 PM CDT 1. In the past 14 [...] or possible COVID-19? no Route reply to: Brittanie Young Contact Number: [phone] documented in this encounter Plan of Treatment Not on filedocumented as of this encounter Visit Diagnoses Not on filedocumented in this encounter
--- OUTSIDE RECORDS SUMMARY | 2022-04-23 15:46 | XMS_ITS | Encounter Summary ---
:1970 Author Organization [facility] Address [address] [place] [address] Care Team Providers Name Role Phone Unavailable Primary Care Provider Unavailable Encounter Details Date Type Department Care Team Description 12/23/2017 Abstract DATA ABSTRACTION Provider, Historical Social History Tobacco Use Types Packs/Day Years Used Date Smoking Tobacco: Never Alcohol Habits Answer Date Recorded How often [...] How often do you attend moravian or restoration More than 4 time s [...] place to sleep or slept in a care home (including now)? Sex Assigned at Date Recorded Female 03/04/2018 7:21 PM CDT documented as of this encounter Plan of Treatment Not on filedocumented as of this encounter Visit Diagnoses Not on filedocumented in this encounter
--- OUTSIDE RECORDS SUMMARY | 2022-04-23 15:46 | XMS_ITS | Encounter Summary ---
:1970 Author Organization [facility] Address [address] [place] [address] Care Team Providers Name Role Phone Unavailable Primary Care Provider Unavailable Reason for Visit Outpatient (Routine) - Closed Specialty Diagnoses / Procedures Referred By Contact Refer red To Contact Orthopedic Surgery Hebert Pereyra III, [place] [address] [place] M.D. [address] [place] [address] Referral ID Status Reason Start Date Expiration Date Visits Requ ested Visits Authorized [id number] Closed 11/16/2018 11/16/2019 1 1 Encounter Details Date Type Department Care Team Description 11/20/2018 Office Visit Department of [place], Stenosis Spina l (Primary Dx); Orthopedic Surgery Steve Haskins M.D. Primary Osteoarthritis Lumbar Spine; in [address] Radiculopathy Lumbosacral; [place], [place] Spondylolisthesis Acquired; [address] [place] [phone] Fusion Lumbar Spine Status Post [place], [place] [phone] (Work) [phone] Social History Tobacco Use Types Packs/Day Years Used Date Smoking Tobacco: Never Smokeless Tobacco: Never Alcohol Use Standard Drinks/Week Comments No 0 (1 standard drink = 0.6 oz [...] or relatives? How often do you attend congregation or cheondoism More than 4 time s per year 11/30/2021 services? Do you belong to any clubs or organizations Yes 11/30/2021 such as congregation groups, unions, fraternal or athletic groups, or [...] or slept in a [facility] (including now)? Sex Assigned at Date Recorded Female 03/04/2018 7:21 PM CDT documented as of this encounter Progress Notes Steve Jesus M.D. - 11/20/2018 2:30 PM CDT NAME: Josie Booker : 1970 TODAY'S DATE: 11/20/18 Pain reported: 11/11 CHIEF COMPLAINT: Follow up status post lumbar CT and L3-4 left facet injection. HISTORY: Josie Booker is a 48 y.o. female who comes in today for follow up status post Lumbar CT and Left L3-4 facet injection. She notes that her day started with pain of 5/10, the injection helped relieve some of the pain. Shenotes that her gluteal pain is better, the tingling she experiences in her feet is class. She notices her tailbone pain is better. Her hip continues to be sore. She notes that she can arch her back with less discomfort. NEUROLOGICAL: Motor: No. Sensory: BLE: right bottom of foot, left foot. Bladder: No. Bowel: No. Balance: No Manual Dexterity: No. 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 No chest pain or shortness of breath. Genitourinary: Positive for decreased libido. Musculoskeletal: Positive for arthralgias, back pain, pain or stiffness in the joints and muscle pain/stiffness. Neurological: Positive for numbness or shooting pain in hands, arms, legs, or feet. Psychiatric/Behavioral: Positive for decreased libido. The following systems were negative: Constitutional, Skin, Eyes, ENT, CV, Respiratory, GI, Hematologic PHYSICAL EXAM: GENERAL: Alert, oriented, in no apparent distress. Handedness: Right-handed Skin: no concerning areas. Motor: Lower Extremity: Left Right Iliopsoas: 12/06 12/06 Quadriceps: 12/06 12/06 Tibialis Ant: 12/06 12/06 EHL: 12/06 12/06 Gastrocs: 12/06 12/06 Hamstrings: 12/06 12/06 IMAGING: EXAM: CT LUMBAR SPINE WITHOUT IV CONTRAST ?? FINDINGS: CT lumbar spine without contrast 11/20/2018. Indication left radiculopathy. Comparison MRI 09/29/2018. ?? Grade 2/3 anterolisthesis of L5 on S1 is not definitely changed since 09/29/2018. This again results in severe bilateral L5-S1 foraminal stenosis. There appears to be solid bony fusion posteriorly at L4-S1. At L3-4 there is advanced facet arthropathy with the focus of air on the right indicating a right facet synovial cyst. Absence of visualization of this synovial cyst on the prior MRI suggests that it is small. The L3-4 and L4-5 neural foramina are patent bilaterally. The upper lumbar spine appears well preserved. ? IMPRESSION: 1. Grade 2/3 anterolisthesis of L5 on S1 is not definitely changed since 09/29/2018. 2. Posterior bony fusion L4-S1 appears solid bilaterally. EXAM: FL LUMBAR SPINE FACET INJECTION LEFT ?? PROCEDURE: Fluoroscopically-guided Left L3-4 Facet Joint Injection. ?? Pain score: Pre-procedural pain was rated: 5/10 Post-procedural pain was rated: 2/10 ?? Medications: Steroid: 2 mg betamethasone Local anesthetic: 3.3 mg of 0.5% ropivacaine ?? INDICATION: The patient reports the current pain syndrome to be of >1 year duration and presents today for a new injection. ?? TECHNIQUE: ?? Patient's pain pattern, clinical notes, and imaging were reviewed. 48-year-old female with low back and left greater than right leg pain. Pain has been ongoing for approximately 4 years. Remote history of L5-S1 fusion. She's had multiple prior injections without significant relief of her symptoms. 11/20/2018 CT and outside MRI 09/29/2018 demonstrate degenerative changes at the L3-L4 facets. A diagnostic and potentially therapeutic left L3-L4 facet injection was requested and performed. Using usual sterile technique, fluoroscopic guidance, and local anesthesia, a 3.5 inch 25-gauge spinal needle was advanced to the posterior aspect of the facet joint. With final needle tip position, a small amount of iodinated contrast confirmed intra-articular flow. Transient vascular uptake was not observed with final needle position. 1cc of 2:1 mixture of anesthetic:steroid was administered at the joint. The needle was withdrawn, restyletted, and removed. The patient experienced no complication. ?? PREPROCEDURE: Patient seen, evaluated, and history reviewed. Discussed risks (including, but not limited to, bleeding and infection); benefits; and alternatives for procedure and obtained informed consent. The side and site of the procedure was marked, when applicable, at the time of consent. The patient understood the information and questions answered. Immediately prior to starting the procedure in the presence of the assisting personnel, a procedural pause was conducted to verify correct patient identity and verification of procedure to be performed and as applicable, correct side and site, correct patient position, availability of implants, special equipment, or special requirements, and all image and specimen identification data. The roles and responsibilities of care team members, residents, and fellows were discussed. ? IMPRESSION: Fluoroscopically-guided facet joint injection. ASSESSMENT: #1 Stenosis Spinal #2 Primary Osteoarthritis Lumbar Spine #3 Radiculopathy Lumbosacral #4 Spondylolisthesis Acquired #5 Fusion Lumbar Spine Status Post Josie Booker is a 48 y.o. female comes into the clinic today for follow-up after her lumbar CTscan, and her left L3-[address]. [address] scan shows a solidly fused L4-S1. The facet injection does indicate that her pain generator is at that L3-4 region. We discussed continuing with conservative treatment as well as surgical intervention. It would be reasonable for her to continue with an [id number] NSAID to help with pain. We would like her to continue with a pain diary over the next few weeks to see how the injection works for her. If she does not find any durable relief with the injection, surgical intervention would be appropriate. For her leg symptoms we would recommend a decompression surgery, but if more of her pain is axial back pain it would be recommended to extend her fusion up to the L3-4 region as well as decompress. PLAN: 1. Keep a pain diary and send us updates through the patient portal on Friday. 2. We will not plan formal follow-up at this time but we would be happy to see her back in clinic atany time. 3. All of her questions were answered [...] Visit Diagnoses Diagnosis Stenosis Spinal - Primary Primary Osteoarthritis Lumbar Spine Radiculopathy Lumbosacral Spondylolisthesis Acquired Fusion Lumbar Spine Status Post documented in this encounter
--- OUTSIDE RECORDS SUMMARY | 2022-04-23 15:46 | XMS_ITS | Encounter Summary ---
:1970 Author Organization [facility] Address [address] [place] [id number] Care Team Providers Name Role Phone Unavailable Primary Care Provider Unavailable Reason for Visit Reason Onset Date Comments Appointment 02/25/2019 [place] side injection Encounter Details Date Type Department Care Team Description 02/25/2019 Clinical Communication Department of Lauro Jesus ([place] Orthopedic Surgery Steve Haskins M.D. side injection) in [place] [address] [address] [place], [place] [address] [place] [phone] [place], [place] [phone] (Work) [phone] Social History Tobacco Use Types Packs/Day Years [...] How often do you attend judaism or yazidi More than 4 time s per year [...] or slept in a fdc (including now)? Sex Assigned at Date Recorded Female 03/04/2018 7:21 PM CDT documented as of this encounter Miscellaneous Notes Telephone Encounter - Vanessa Randolph - 02/25/2019 12:53 PM CDT New order for hernesto has been scheduled and patient is aware. Telephone Encounter - Vanessa Randolph - 02/25/2019 10:30 AM CDT Patient calls in requesting today's left side injection be changed to hernesto. I spoke with Breonna in injection radiology and she would be able to swap out the left injection for the hernesto. Are you able to place a new order for hernesto? If this is not possible patient is ok with completing the left side injection. Please advise, thank you. Josie [phone] documented in this encounter Plan of Treatment Not on filedocumented as of this encounter Visit Diagnoses Not on filedocumented in this encounter
--- OUTSIDE RECORDS SUMMARY | 2022-04-23 15:46 | XMS_ITS | Encounter Summary ---
:1970 Author Organization [facility] Address [address] [place] [address] Care Team Providers Name Role Phone Unavailable Primary Care Provider Unavailable Reason for Referral Outpatient (Routine) - Closed Specialty Diagnoses / Procedures Referred By Contact Refer red To Contact Diagnoses Pain Back Steve Jesus M.D. [facility] Procedures FL Lumbar Spine Facet Injection Bilateral [facility] INJ FACET JT LUMB/SAC 1 LVL [address] [place], [place] [phone] Referral ID Status Reason Start Date Expiration Date Visits Requ ested Visits Authorized [id number] Closed 02/25/2019 02/25/2020 1 1 Reason for Visit Outpatient (Routine) - Closed Specialty Diagnoses / Procedures Referred By Contact Refer red To Contact Diagnoses Pain Back Steve Jesus M.D. [facility] Procedures FL Lumbar Spine Facet Injection Bilateral [facility] INJ FACET JT LUMB/SAC 1 LVL [address] [place] [address] Referral ID Status Reason Start Date Expiration Date Visits Requ ested Visits Authorized [id number] Closed 02/25/2019 02/25/2020 1 1 Encounter Details Date Type Department Care Team Description 02/25/2019 Hospital Encounter Department of Radiology, Steve Wong M.D. [address] [place] [phone] Pain Back [facility] Building, in James Coronado M.D. [address] [place] [phone] [place], [place] [address] [place] [address] Social History Tobacco Use Types Packs/Day [...] or relatives? How often do you attend muslim or hoahaoism More than 4 time s per year 11/30/2021 services? Do you belong to any clubs or organizations Yes 11/30/2021 such as muslim groups, unions, fraternal or athletic groups, or [...] slept in a nursing home (including now)? Sex Assigned at Date Recorded Female 03/04/2018 7:21 PM CDT documented as of this encounter Last Filed Vital Signs Vital Sign Reading Time Taken Comments Blood Pressure 115/84 02/25/2019 2:35 PM CDT Pulse 76 02/25/2019 2:35 PM CDT Temperature - - Respiratory Rate 14 02/25/2019 2:35 PM CDT Oxygen Saturation 99% 02/25/2019 2:35 PM CDT Inhaled Oxygen Concentration - - Weight - - Height - - Body Mass Index - - documented in this encounter Medications at Time of Discharge Medication Sig Dispensed Refills Start Date End Date acetaminophen (TYLENOL) 500 Take 1,000 mg by 0 mg tablet mouth as needed for pain. cholecalciferol, vitamin Take 1,000 Units 0 D3, 25 mcg (1,000 Unit) by mouth every tablet morning. azithromycin (ZITHROMAX) TAKE 2 TABLETS BY 0 02/0 02/201908/11/2019 250 mg tablet MOUTH FOR ONE DAY THEN ONE TABLET DAILY FOR FOUR DAYS calcium carbonate 1,500 mg Take 1 tablet by 0 08/201512/07/2020 (600 mg calcium) tablet mouth 2 (two) times a day. One in AM, one in PM cefdinir (OMNICEF) 300 mg TAKE ONE CAPSULE 0 0208/201808/11/2019 capsule BY MOUTH TWICE A DAY FOR 10 DAYS cyclobenzaprine HCl Take by mouth as 0 01/30/2017 08/11/2019 (CYCLOBENZAPRINE ORAL) needed. Lactobacillus acidophilus Take by mouth 0 017 08/11/2019 (PROBIOTIC ORAL) daily. documented as of this encounter Plan of Treatment Not on filedocumented as of this encounter Procedures Procedure Name Priority Date/Time Associated Comments Diagnosis FL LUMBAR SPINE RAD - Routine 02/25/2019 2:36 Pain Back Results for this FACET INJECTION (most inpatients PM CDT procedur e are in BILATERAL and all the results outpatients) section. documented in this encounter Results FL Lumbar Spine Facet Injection Bilateral (02/25/2019 2:36 PM CDT) Specimen (Source) Anatomical Collection Method Collection Time Re ceived Time Location / / Volume Laterality 02/25/2019 2:34 PM CDT Impressions [id number] - 02/25/2019 2:54 PM CDT Fluoroscopically-guided facet joint injections. NR Narrative [id number] - 02/25/2019 2:54 PM CDT EXAM: FL LUMBAR SPINE FACET INJECTION BILATERAL PROCEDURE: ??Fluoroscopically-guided Stoney ateral L3-4 Facet Joint Injection. Pain score: Pre-procedural pain was rated: ??6/10 ?? Post-procedural pain was rated: ??4/10 Medications: Steroid: ??4 mg betamethasone Local anesthetic: ??6.6 mg 0.5% ropivaca ine INDICATION: The patient reports the curr ent pain syndrome to be of >1 year duration and presents today for a mainte nance injection. TECHNIQUE: ?? The patient's pain pattern and imaging w ere reviewed. She has chronic axial low back pain, previously worse on the left and currently relatively symmetric. She had excellent response to the left L3-4 facet injection on 11/20/2018. Bilateral L3-4 facet injections have been requeste d which is reasonable. Prior procedural images and prior CT were used for anatom ic guidance. She has a remote history of L5-S1 fusion for pars defect related spo ndylolisthesis. Using usual sterile technique, fluorosco pic guidance, and local anesthesia, a 3.5 inch 25-gauge spinal needle was adva nced to the posterior aspect of each of the facet joints. ??With final needle ti p positions, a small amount of iodinated contrast was used to confirm their locat ions. Transient vascular uptake was not observed ??with final needle position. T he flow pattern was intra-articular at each joint. 1cc of 2:1 mixture of anesth etic:steroid was administered at each joint. Each needle was withdrawn, restyl etted, and removed. The patient experienced no complication. PREPROCEDURE: Patient seen, evaluated, a nd history reviewed. Discussed risks (including, but not limited to, bleeding and infection); benefits; and alternatives for procedure and obtained informed consent. The side and site of the procedure was marked, when applicabl e, at the time of consent. The patient understood the information and questions answered. Immediately prior to starting the procedure in the presence of the [facility] personnel, a procedural pause was conducted to verify correct patient iden tity and verification of procedure to be performed and as applicable, correct shea e and site, correct patient position, availability of implants, special equipm ent, or special requirements, and all image and specimen identification data. The roles and responsibilities of care team members, residents, and fellows katelyn trevizo discussed. Procedure Note James Coronado M.D. - 02/25/2019Formatt ing of this note might be different from the original. EXAM: FL LUMBAR SPINE FACET INJECTION BI LATERAL PROCEDURE: Fluoroscopically-guided Bilat eral L3-4 Facet Joint Injection. Pain score: Pre-procedural pain was rated: 6/10 Post-procedural pain was rated: 4/10 Medications: Steroid: 4 mg betamethasone Local anesthetic: 6.6 mg 0.5% ropivacain e INDICATION: The patient reports the curr ent pain syndrome to be of >1 year duration and presents today for a mainte nance injection. TECHNIQUE: The patient's pain pattern and imaging w ere reviewed. She has chronic axial low back pain, previously worse on the left and currently relatively symmetric. She had excellent response to the left L3-4 facet injection on 11/20/2018. Bilateral L3-4 facet injections have been requeste d which is reasonable. Prior procedural images and prior CT were used for anatom ic guidance. She has a remote history of L5-S1 fusion for pars defect related spo ndylolisthesis. Using usual sterile technique, fluorosco pic guidance, and local anesthesia, a 3.5 inch 25-gauge spinal needle was adva nced to the posterior aspect of each of the facet joints. With final needle tip positions, a small amount of iodinated contrast was used to confirm their locat ions. Transient vascular uptake was not observed with final needle position. The flow pattern was intra-articular at each joint. 1cc of 2:1 mixture of anesth etic:steroid was administered at each joint. Each needle was withdrawn, restyl etted, and removed. The patient experienced no complication. PREPROCEDURE: Patient seen, evaluated, a nd history reviewed. Discussed risks (including, but not limited to, bleeding and infection); benefits; and alternatives for procedure and obtained informed consent. The side and site of the procedure was marked, when applicabl e, at the time of consent. The patient understood the information and questions answered. Immediately prior to starting the procedure in the presence of the [facility] personnel, a procedural pause was conducted to verify correct patient iden tity and verification of procedure to be performed and as applicable, correct shea e and site, correct patient position, availability of implants, special equipm ent, or special requirements, and all image and specimen identification data. The roles and responsibilities of care team members, residents, and fellows wer e discussed. IMPRESSION: Fluoroscopically-guided facet joint inje ctions. NR Steve DONOHUE FLUOROSCOPY PROCEDURES Performing Organization Address City/State/ZIP Code Phon e Number [id number] NA documented in this encounter Visit Diagnoses Diagnosis Pain Back documented in this encounter Administered Medications Inactive Administered Medications - up to 3 most recent administrations Medication Order MAR Action Action Date Dose Rate Site betamethasone acetate & sodium Given 02/25/2019 2:24 PM CDT 4 mg Back phosphate injection (CELESTONE SOLUSPAN) Code/trauma/sedation medication, Starting on Yadira 02/25/19 at 1424 iohexol 300 mg iodine/mL solution (OMNIP AQUE) Given 02/25/2019 2:24 PM CDT 1 mL Back Code/trauma/sedation medication, Starting on Yadira 02/25/19 at 1424 lidocaine 10 mg/mL (1 %) injection Given 02/25/2019 2:21 PM CDT 4 mL Back (XYLOCAINE) Code/trauma/sedation medication, Starting on Yadira 02/25/19 at 1421 ropivacaine (PF) 5 mg/mL (0.5 %) injection Given 02/25/2019 2:27 PM CDT 1 mL Back (NAROPIN) Code/trauma/sedation medication, Starting on Yadira 02/25/19 at 1427 documented in this encounter
--- OUTSIDE RECORDS SUMMARY | 2022-04-23 15:46 | XMS_ITS | Encounter Summary ---
:1970 Author Organization [facility] Address [address] [place] [address] Care Team Providers Name Role Phone Unavailable Primary Care Provider Unavailable Encounter Details Date Type Department Care Team Description 01/19/2018 Orders Only Division of Pain Medicine Gali Baker in [facility] maru Draper, M.S. [address] [facility] [address] [place] [address] [place], [place] [phone] (Wo rk) Social History Tobacco Use Types [...] or relatives? How often do you attend gnosticism or scientology More than 4 time s per year 11/30/2021 services? Do you belong to any clubs or organizations Yes 11/30/2021 such as gnosticism groups, unions, fraternal or athletic groups, or [...] or slept in a usp (including now)? Sex Assigned at Date Recorded Female 03/04/2018 7:21 PM CDT documented as of this encounter Plan of Treatment Not on filedocumented as of this encounter Visit Diagnoses Not on filedocumented in this encounter
--- OUTSIDE RECORDS SUMMARY | 2022-04-23 15:46 | XMS_ITS | Encounter Summary ---
:1970 Author Organization [facility] Address [address] [place] [address] Care Team Providers Name Role Phone Unavailable Primary Care Provider Unavailable Reason for Visit Reason Onset Date Comments Predetermination needs info 06/16/2019 Encounter Details Date Type Department Care Team Description 06/16/2019 Clinical Department of Adriel Jesus on needs Communication Orthopedic Surgery Steve Haskins M.D. info in [address] [facility] [phone] Social History Tobacco Use Types Packs/Day Years [...] or relatives? How often do you attend quaker or zoroastrian More than 4 time s per year 11/30/2021 services? Do you belong to any clubs or organizations Yes 11/30/2021 such as quaker groups, unions, fraternal or athletic groups, or [...] or slept in a custodial (including now)? Sex Assigned at Date Recorded Female 03/04/2018 7:21 PM CDT documented as of this encounter Miscellaneous Notes Telephone Encounter - Cristal Awan APRN, CNS, M.S. - 06/22/2019 4:13 PM MID LEVEL PROVIDER Documentation complete LEVEL PROVIDER Telephone Encounter - Moon Cuello - 06/21/2019 4:10 PM CST Called Pre-Auth. It can be from a TELEPHONE INFORMATION CLERK, or someone from his team including a resident. LEVEL PROVIDER Telephone Encounter - Cristal Awan APRN, TATY, M.S. - 06/21/2019 3:59 PM MID LEVEL PROVIDER I have the information. Can you check with PreD to see if the note HAS to be Dr. Jesus or if it can be a member of the team? Thanks. (Note to self: L3-4) LEVEL PROVIDER Telephone Encounter - Radha Llamas - 06/16/2019 4:26 PM CST Images from the original note were not included. Ladi Lala Carol Ann ?? This patient's insurance, [facility], requires a Pre Determination review prior to this procedure. Oncethis is submitted to insurance, the review can take 10-15 days. ??Before we can submit, we will needthe below information documented in the chart. 1) Documentation from Dr. Jesus with summary of the conservative treatment the patient has tried and/or failed since the last visit. 2) ??Documentation with support for the procedure to include spine levels. Once this is available, please send our team an In Basket message RFL RST Prior Auth-PreD Team so the pre determination can be submitted. Thank you! LEVEL PROVIDER documented in this encounter Plan of Treatment Not on filedocumented as of this encounter Visit Diagnoses Not on filedocumented in this encounter
--- OUTSIDE RECORDS SUMMARY | 2022-04-23 15:46 | XMS_ITS | Encounter Summary ---
:1970 Author Organization [facility] Address [address] [place] [id number] Care Team Providers Name Role Phone Unavailable Primary Care Provider Unavailable Reason for Visit Outpatient (Routine) - Closed Specialty Diagnoses / Procedures Referred By Contact Refer red To Contact Pain Medicine Diagnoses Pain Back Steve Jesus M.D. [place] [address] [place] [phone] Referral ID Status Reason Start Date Expiration Date Visits Requ ested Visits Authorized [id number] Closed 10/05/2018 10/05/2019 1 1 Encounter Details Date Type Department Care Team Description 11/05/2018 Office Visit Division of Pain Romero Baker P.A.-Ana., M.S. [address] [place] [phone] Spondylosis Lumbar Without Myelopathy (P rimary Dx); Medicine in Natalya Solorzano P.A.-Jamie, M.S. [address] [place] [phone] Pain Back; [place], Spondylolisthes is Lumbar Region; [place] Fusion Lumbar Spine Status P ost; [address] [place] [address] [place] [phone] Social History Tobacco Use Types Packs/Day Years [...] or relatives? How often do you attend lutheran or shinto More than 4 time s per year 11/30/2021 services? Do you belong to any clubs or organizations Yes 11/30/2021 such as lutheran groups, unions, fraternal or athletic groups, or [...] or slept in a penitentiary (including now)? Sex Assigned at Date Recorded Female 03/04/2018 7:21 PM CDT documented as of this encounter Last Filed Vital Signs Vital Sign Reading Time Taken Comments Blood Pressure 119/83 11/05/2018 12:38 PM CDT Pulse 78 11/05/2018 12:38 PM CDT Temperature - - Respiratory Rate - - Oxygen Saturation - - Inhaled Oxygen Concentration - - Weight - - Height 153.1 cm (5' 0.28) 11/05/2018 12:38 PM CDT Body Mass Index - - documented in this encounter Consult Notes Natalya Solorzano P.A.-Ana., M.S. - 11/05/2018 1:00 PM CDT REFERRAL Steve Jesus M.D. CHIEF COMPLAINT / REASON FOR VISIT 1. Pain Back 2. Left Lower Extremity Pain HISTORY OF PRESENT ILLNESS Josie Booker is a 48 y.o. female who presents to the Pain Clinic for further evaluation and recommendations regarding ongoing chronic low back pain. Note patient was initially seen for pain Clinic consultation regarding low back pain and bilateral lower extremity numbness by Dr. Magana on December 06, 2015 and I would refer the interested reader to her detailed note on that date which outlines the history of this pain. Mrs. Booker returns to the pain clinic today stating that she had a [facility] at L5-S1 [facility] Her back and lower extremity pain has been worsening over the past 1 year. She has 50% low back pain and 50% left lower extremity pain. She was seen at [facility] bya neurosurgeon and offered an anterior/posterior fusion (Higginbotham procedure) for the indication of spondylolisthesis. She is meeting with Dr. Jesus November 16, 2018 for 2nd opinion. Presently, she endorses pain spanning from the L4 vertebral body through the sacrum. There is pain across the bilateral buttocks. From there, pain radiates down the left lower extremity in, seemingly, and S1 nerve distribution pattern. She has exhausted conservative treatments as well as medication trials (doesn't like to take oral medications) and injections. She has had facet joint injections, medial branch nerve blocks, and various epidural injections. On October 07, 2018 she had a left L5-S1 transforaminal epidural steroid injection at [facility] in the city is which she states reproduced her symptoms during the local anesthetic injection. Her left lower extremity was quite numb and difficult to bear weight following the injection. She did not receive any relief from the injection. Her pain is worse with standing for greater than 10 min, walking on a treadmill, riding a stationarybike, extending her lumbar spine, or sitting for prolonged periods of time. She tries to perform stretches daily and states even during stretching she will have worsened pain. She currently takes Lyrica 75 mg daily which takes the edge off her pain. She does massage therapy 1 time per week. Patient denies recent fevers, chills, infections, or antibiotic use. No allergies to contrast dye, local anesthetics or corticosteroid. No neurologic red flag symptoms. Pain score today is rated 6 to 7/10. Current Outpatient Prescriptions Medication Sig Dispense Refill ??? acetaminophen (TYLENOL) 500 mg tablet Take 500 mg by mouth as needed for pain. ??? calcium carbonate 1,500 mg (600 mg calcium) tablet Take 1 tablet by mouth 2 (two) times a day. ??? cyclobenzaprine HCl (CYCLOBENZAPRINE ORAL) Take by mouth as needed. ??? gabapentin (NEURONTIN) 100 mg capsule Take 100 mg by mouth. ??? Lactobacillus acidophilus (PROBIOTIC ORAL) Take by mouth daily. ??? MULTIVITAMIN ORAL Take 2 tablets by mouth 2 (two) times a day. Multiple vitamin tabs No current facility-administered medications for this visit. Allergies: Mold OBJECTIVE PHYSICAL EXAM GENERAL: Patient is seated in exam room chair in no acute distress. MENTAL STATUS: Oriented to person, place and time. Recent and remote memory are grossly intact. EYES: Pupils are 3 mm and symmetric. Conjunctiva, eyelids and irises are within normal limits. LUNGS: Normal respiratory efforts. SKIN: Inspection of posterior trunk reveals long vertical lumbar scar from previous fusion surgery. MUSCULOSKELETAL: Palpation: Tender over the L4 vertebral body. NEUROLOGIC: Strength: Bilateral lower extremity strength testing is grossly normal in all major muscle distributions. Reflexes: Patellar and Achilles reflexes are physiologic and symmetric. GAIT: Nonantalgic. She is able to toe-walk and heel-walk. SPINE: Lumbar spine forward flexion is full and intact. She has 50% reduction of lumbar spine extension. ASSESSMENT / PLAN #1 Pain Back #2 Spondylosis Lumbar Without Myelopathy #3 Spondylolisthesis Lumbar Region #4 Fusion Lumbar Spine Status Post #5 Radiculopathy Lumbar IMPRESSION: I have seen and evaluated the patient and discussed her case in detail with supervising physician Dr. Hughes, who also met with the patient today. It is my impression she continues to suffer from intractable back and left greater than right lower extremity pain with neuropathic features. She does not seem to have any neurologic red flag symptoms at this time. She is interested in 2nd opinion regarding spine surgery that she had been offered locally by her neurosurgeon. 1. Conservative: The patient has exhausted conservative therapies at this point. She understands to be as active as possible. 2. Medications: Patient does not wish to increase her medication list. This is understandable. 3. Injections: No further injection recommendations at this time. She has largely exhausted facet injections, epidural injections, sacroiliac joint injections, etc. 4. Interventional: Spinal cord stimulation had been discussed with the patient by Dr. Magana in 2016. We rediscussed this therapy today and gave her the neuromodulation pressure as well as the name ofthe various spinal cord stimulator vendors we use. She understands this is an option for her should she wish to move forward. We would set up a pain psychiatry evaluation, RN nurse education visit, andreturn visit with implanting physician in the future should she wish to proceed down this pathway. 5. Imaging: I did order a lumbar spine AP/lateral/flexion/extension films in anticipation of the patient meeting with Dr. Jesus November 16, 2018 as I anticipate he will wish to see these. Followup: Patient is welcome to follow up with the Pain Clinic at any time. PATIENT EDUCATION Ready to learn, no apparent learning barriers were identified: learning preferences included listening. Explained diagnosis and treatment plan; patient expressed understanding of the content. Ruddy Hughes D.O., M.P.H. - 11/05/2018 1:00 PM CDT PAIN MEDICINE SUPERVISORY NOTE Chief Complaint Supervisory note: Assisted by Ms. Natalya Solorzano PA-C, MS History of Presenting Illness I have seen and examined the patient with Ms. Natalya Solorzano PA-C, MS and agree with the excellent clinical documentation. 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 Natalya Solorzano PA-C, MS. In addition, I have personally reviewed the patient's past medical history, prior evaluations, family and social history, medication list, as well as the pertinent radiographic and laboratory findings. I have independently performed a focal physical examination. The COLTON note should be considered integral to my note for documentation purposes. I have discussed these findings with the COLTON and we have jointly formulated our impressions and plan of care. Please see Ms. Solorzano's consult note for full details of our visit. Patient has exhausted all conventional treatment modalities to date for her chronic low back and lower extremity pain. She rightfully is trying to prevent spine surgery unless absolutely indicated. [facility], but we shared with her our concern that we want to try to promote wellness and healing as much as possible and that surgical intervention if not absolutely indicated usually promotes more challenges and pain in the long run. She will proceed with lumbar flexion-extension films to better delineate whether there is a degree of concerning motion that could be corrected with a spine fusion. She will be seeing our colleagues inOrthopedic Spine surgery for their opinion. If spine surgery is not recommended by our colleagues here, then I certainly think the most reasonable next step is the therapy of spinal cord stimulation. Provided an opportunity to ask questions, and questions were answered to the best of my ability. PATIENT EDUCATION Ready to learn, no apparent learning barriers were identified; learning preferences included listening. Explained diagnosis and treatment plan; patient expressed understanding of the content. documented in this encounter Plan of Treatment Not on filedocumented as of this encounter Results DX Lumbar Spine 4+ Views (11/05/2018 2:11 PM CDT) Anatomical Region Laterality Modality Lumbar Spine, Musculoskeletal RST LOS, Neuroradiology N/A Computed Radiography ARZ LOS, Muskuloskeletal FLA LOS Specimen (Source) Anatomical Collection Method Collection Time Re ceived Time Location / / Volume Laterality 11/05/2018 3:07 PM CDT Impressions 11/05/2018 3:12 PM CDT IMPRESSION: ??No fracture. Grade III-IV anterolisthesis L5 on S1 is unchanged with ankylosis of the posterior elements L4 to S1. Slight anterolisthesis of L3 on L4. Advanced degenerative facet disea se L3-L4. No abnormal angular motion with flexion/extension. Mild disk space height loss at the remaining lumbar levels. Moderate SI joint degeneration. Narrative 11/05/2018 3:12 PM CDT EXAM: ??DX LUMBAR SPINE 4+ VIEWS Procedure Note William Blair M.D. - 11/05/2018For matting of this note might be different from the original. EXAM: DX LUMBAR SPINE 4+ VIEWS IMPRESSION: No fracture. Grade III-IV an terolisthesis L5 on S1 is unchanged with ankylosis of the posterior elements L4 to S1. Slight anterolisthesis of L3 on L4. Advanced degenerative facet disea se L3-L4. No abnormal angular motion with flexion/extension. Mild disk space height loss at the remaining lumbar levels. Moderate SI joint degeneration. Natalya Solorzano P.A.-C., M.S. IMG DIAGNOSTIC IMAGIN G PROCEDURES documented in this encounter Visit Diagnoses Diagnosis Spondylosis Lumbar Without Myelopathy - Primary Pain Back Spondylolisthesis Lumbar Region Fusion Lumbar Spine Status Post Radiculopathy Lumbar Pain Back Spondylosis Lumbar Without Myelopathy Spondylolisthesis Lumbar Region documented in this encounter
--- OUTSIDE RECORDS SUMMARY | 2022-04-23 15:46 | XMS_ITS | Encounter Summary ---
:1970 Author Organization [facility] Address [address] [place] [address] Care Team Providers Name Role Phone Unavailable Primary Care Provider Unavailable Reason for Visit Reason Onset Date Comments Follow-up 10/05/2018 Encounter Details Date Type Department Care Team Description 10/05/2018 Clinical Communication Department of Steve Jesus Follow-up Orthopedic Surgery ashley Haskins M.D. [place], [place] [address] [facility] [address] [place] [phone] Social History Tobacco Use Types Packs/Day Years [...] How often do you attend gnosticist or uatsdin More than 4 time s per year [...] this encounter Miscellaneous Notes Telephone Encounter - Reyna Sanchez R.N. - 10/08/2018 12:39 PM BOLT LOADER What ever works for the patient, but have our appointment after she see's the pain clinic. Thank you LOADER Telephone Encounter - Pedrito Orozco - 10/08/2018 10:21 AM CST There is not any days that Pain Clinic has availability when Dr. Jesus is in clinic through theend of December, does patient absolutely have to be seen on the same day as Pain Clinic or can it be two separate days with Pain Clinic first? LOADER Telephone Encounter - Reyna Sanchez R.N. - 10/05/2018 3:08 PM BOLT LOADER Orders are in. LOADER Telephone Encounter - Steve Jesus M.D. - 10/05/2018 2:27 PM BOLT LOADER Ok to return but do it same day as Pain Clinic consult. LOADER Telephone Encounter - Pedrito Orozco - 10/05/2018 9:58 AM CST Patient calls and states she saw a physician at [facility] in [place] and they recommended that patient's next step is to have a spinal cord stimulator. Patient's mri from 09-29-18 is in qreads. Patient is looking to have a second opinion in regards to this MRI. She was also told that L5 stenosis is advancing quite quickly. When she saw Dr. Jesus he said the opening was about half and the local physician says she is now close to 70%. Patient does have numbness and tingling down her left leg. Thereis also some cysts at S2, which they think might be causing some of her pelvic and leg pain. Ok to schedule, if so any additional testing? LOADER documented in this encounter Plan of Treatment Not on filedocumented as of this encounter Visit Diagnoses Not on filedocumented in this encounter
--- OUTSIDE RECORDS SUMMARY | 2022-04-23 15:46 | XMS_ITS | Encounter Summary ---
:1970 Author Organization [facility] Address [address] [place] [address] Care Team Providers Name Role Phone Unavailable Primary Care Provider Unavailable Encounter Details Date Type Department Care Team Description 02/02/2009 Hospital Encounter HX NO MAPPING Social History Tobacco Use Types Packs/Day Years Used Date Smoking Tobacco: Never Assessed Alcohol Habits Answer Date Recorded How often [...] How often do you attend druze or taoist More than 4 time s per year [...] or slept in a assisted (including now)? Sex Assigned at Date Recorded Female 03/04/2018 7:21 PM CDT documented as of this encounter Medications at Time of Discharge Medication Sig Dispensed Refills Start Date End Date MULTIVITAMIN ORAL Take 2 tablets by mouth 2 0 11/20/2018 (two) times a day. Multiple vitamin tabs documented as of this encounter Plan of Treatment Not on filedocumented as of this encounter Visit Diagnoses Not on filedocumented in this encounter
--- OUTSIDE RECORDS SUMMARY | 2022-04-23 15:46 | XMS_ITS | Encounter Summary ---
:1970 Author Organization [facility] Address [address] [place] [address] Care Team Providers Name Role Phone Unavailable Primary Care Provider Unavailable Encounter Details Date Type Department Care Team Description 12/06/2015 Hospital Encounter HX NO MAPPING Social History [...] How often do you attend baptist or oriental orthodox More than 4 time [...] place to sleep or slept in a skilled nursing (including now)? Sex Assigned at Date Recorded Female 03/04/2018 7:21 PM CDT documented as of this encounter Medications at Time of Discharge Medication Sig Dispensed Refills Start Date End Date calcium carbonate 1,500 Take 1 tablet by 0 201512/07/2020 mg (600 mg calcium) mouth 2 (two) times tablet a day. One in AM, one in PM MULTIVITAMIN ORAL Take 2 tablets by 0 04/02/2004 11/20/2018 mouth 2 (two) times a day. Multiple vitamin tabs documented as of this encounter Plan of Treatment Not on filedocumented as of this encounter Visit Diagnoses Not on filedocumented in this encounter
--- OUTSIDE RECORDS SUMMARY | 2022-04-23 15:46 | XMS_ITS | Encounter Summary ---
:1970 Author Organization [facility] Address [address] [place] [address] Care Team Providers Name Role Phone Unavailable Primary Care Provider Unavailable Reason for Referral Outpatient (Routine) - Closed Specialty Diagnoses / Procedures Referred By Contact Refer red To Contact Diagnoses Pain Back Steve Jesus M.D. [place] Procedures FL Lumbar Spine Facet Injection Bilateral PBRADOSF [facility]AL RADIOLOGY AND [facility] TECHNICAL RADIOLOGY PLACEHOLDER NE INJ FACET JT LUMB/SAC 1 LVL [address] [place] [address] Referral ID Status Reason Start Date Expiration Date Visits Requ ested Visits Authorized [id number] Closed 02/25/2019 02/25/2020 1 1 Encounter Details Date Type Department Care Team Description 02/25/2019 Orders Only Department of Daniel, Reyna Pain Zoila k (Primary Dx) Orthopedic Surgery in A, R.N. [place], [place] [address] [facility] [address] [place] [phone] Social History Tobacco Use Types Packs/Day Years [...] or relatives? How often do you attend mu-ism or zoroastrianism More than 4 time s per year 11/30/2021 services? Do you belong to any clubs or organizations Yes 11/30/2021 such as mu-ism groups, unions, fraternal or athletic groups, or [...] filedocumented as of this encounter Results FL Lumbar Spine Facet Injection Bilateral (02/25/2019 2:36 PM CDT) Specimen (Source) Anatomical Collection Method Collection Time Re ceived Time Location / / Volume Laterality 02/25/2019 2:34 PM CDT Impressions [id number] - 02/25/2019 2:54 PM CDT Fluoroscopically-guided facet joint injections. NR Narrative [id number] - 02/25/2019 2:54 PM CDT EXAM: FL [...] the procedure in the presence of the [facility] personnel, a procedural pause was conducted to [...] the procedure in the presence of the [facility] personnel, a procedural pause was conducted to verify correct patient iden tity and verification of procedure to be performed and as applicable, correct shea e and site, correct patient position, availability of implants, special equipm ent, or special requirements, and all image and specimen identification data. The roles and responsibilities of care team members, residents, and fellows katelyn e discussed. IMPRESSION: Fluoroscopically-guided facet joint inje ctions. NR Steve DONOHUE FLUOROSCOPY PROCEDURES Performing Organization Address City/State/ZIP Code Phon e Number [id number] NA documented in this encounter Visit Diagnoses Diagnosis Pain Back Pain Back - Primary documented in this encounter
--- OUTSIDE RECORDS SUMMARY | 2022-04-23 15:46 | XMS_ITS | Encounter Summary ---
:1970 Author Organization [facility] Address [address] [place] [address] Care Team Providers Name Role Phone Unavailable Primary Care Provider Unavailable Reason for Visit Reason Onset Date Comments Follow-up 01/19/2018 Encounter Details Date Type Department Care Team Description 01/19/2018 Clinical Communication Division of Pain Medicine in Follow-up [place], [place] [address] [place] [phone] Social History Tobacco Use Types Packs/Day [...] How often do you attend judaism or baptist More than 4 time s [...] or slept in a fci (including now)? Sex Assigned at Date Recorded Female 03/04/2018 7:21 PM CDT documented as of this encounter Miscellaneous Notes Telephone Encounter - Janell Bell L.P.N. - 01/19/2018 1:09 PM CDT PROCEDURE: Cervical Spine Medial Branch Nerve Block Bilateral MEDICATION: 2% Lidocaine PERCENT IMPROVEMENT: 20 % What activities did you do to test your pain during the 2-3 hours following your block that would normally cause you pain? Driving home Patient reports: Moderate improvement in pain level while performing usual activities. Result: Less than 50% relief, further appointments canceled and referring provider notified. Patientverbalized understanding. documented in this encounter Plan of Treatment Not on filedocumented as of this encounter Visit Diagnoses Not on filedocumented in this encounter
--- OUTSIDE RECORDS SUMMARY | 2022-04-23 15:46 | XMS_ITS | Encounter Summary ---
:1970 Author Organization [facility] Address [address] [place] [address] Care Team Providers Name Role Phone Unavailable Primary Care Provider Unavailable Reason for Visit Reason Onset Date Comments work status report 05/07/2019 Adjust time requested off? 05/07/2019 Encounter Details Date Type Department Care Team Description 05/07/2019 Clinical Communication Department of [place] work status report; Orthopedic Surgery Steve Haskins M.D. Adjust time in [place] [address] [address] [facility] requested off? [place], [place] [address] [facility] [address] [place], [place] [phone] (Work) [phone] Social History Tobacco Use Types Packs/Day Years [...] How often do you attend islam or buddhism More than 4 time s per year [...] this encounter Miscellaneous Notes Telephone Encounter - Zonia Gutierrez - 05/11/2019 9:58 AM CDT Patient calling to ask if she could get an updated AWSR. She said Dr. Jesus okayed 3 months offand would like the days to be 08/05/2019-10/22/2019. 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 If any questions, please call. Otherwise, updated form can be e-mailed like the last one. Telephone Encounter - Cristal Awan APRN, TATY, M.S. - 05/07/2019 5:04 PM CDT AWSR completed. Highly unlikely that she will need a body cast. Please pass along. Telephone Encounter - Radha Llamas - 05/07/2019 3:01 PM CDT Patient called in requesting a work status report for her work for [employer]. Surgery is on August 12. When is it possible for us to fill out a work status for patient? 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 E-mail to patient at . I am to call her if we are not able to complete this yet. Also, she wonders if she will be in a body cast for her surgery just like she had way back on her other surgery 30 years ago? documented in this encounter Plan of Treatment Not on filedocumented as of this encounter Visit Diagnoses Not on filedocumented in this encounter
--- OUTSIDE RECORDS SUMMARY | 2022-04-23 15:46 | XMS_ITS | Encounter Summary ---
:1970 Author Organization [facility] Address [address] [place] [address] Care Team Providers Name Role Phone Unavailable Primary Care Provider Unavailable Encounter Details Date Type Department Care Team Description 07/18/2017 Telemedicine Department of Orthopedic Surgery Social History Tobacco [...] or relatives? How often do you attend yarsanism or rastafarian More than 4 time s per year 11/30/2021 services? Do you belong to any clubs or organizations Yes 11/30/2021 such as yarsanism groups, unions, fraternal or athletic groups, or [...] or slept in a prison (including now)? Sex Assigned at Date Recorded Female 03/04/2018 7:21 PM CDT documented as of this encounter Plan of Treatment Not on filedocumented as of this encounter Procedures Procedure Name Priority Date/Time Associated Comments Diagnosis ORTHOPEDIC SURGERY Routine 07/18/2017 11:40 AM Re sults for this IMAGE EXAM FLOOR REPRESENTATIVE procedure are i n the results section. documented in this encounter Results ORTHOPEDIC SURGERY IMAGE EXAM (07/18/2017 11:40 AM FLOOR REPRESENTATIVE) Specimen (Source) Anatomical Collection Method Collection Time Re ceived Time Location / / Volume Laterality 07/18/2017 11:38 AM FLOOR REPRESENTATIVE Narrative [facility] - 07/18/2017 11:53 AM FLOOR REPRESENTATIVE This order has been created and auto-finalized [...]
--- OUTSIDE RECORDS SUMMARY | 2022-04-23 15:46 | XMS_ITS | Encounter Summary ---
:1970 Author Organization [facility] Address [address] [place] [address] Care Team Providers Name Role Phone Unavailable Primary Care Provider Unavailable Reason for Referral Outpatient (Routine) - Closed Specialty Diagnoses / Procedures Referred By Contact Refer red To Contact Diagnoses Pain Low Back Unspecified Hebert Pereyra III, [place] Procedures FL Lumbar Spine Facet Injection Left [facility] TECHNICAL RADIOLOGY PLACEHOLDER Kathy [address] [place] [address] Referral ID Status Reason Start Date Expiration Date Visits Requ ested Visits Authorized [id number] Closed 11/16/2018 11/16/2019 1 1 Reason for Visit Outpatient (Routine) - Closed Specialty Diagnoses / Procedures Referred By Contact Refer red To Contact Diagnoses Pain Low Back Unspecified Hebert Pereyra III, [place] Procedures FL Lumbar Spine Facet Injection Left [facility] TECHNICAL RADIOLOGY PLACEHOLDER Kathy [address] [place] [address] Referral ID Status Reason Start Date Expiration Date Visits Requ ested Visits Authorized [id number] Closed 11/16/2018 11/16/2019 1 1 Encounter Details Date Type Department Care Team Description 11/20/2018 Hospital Encounter Department of Yoanna Pereyra rd, III, M.D. [address] [place] [phone] Pain Low Back Radiology, Ruth Post M.D. [address] [place] [phone] [facility], in [place], [place] [address] [place] [phone] Social History Tobacco Use Types Packs/Day Years [...] or relatives? How often do you attend voodoo or baptist More than 4 time s per year 11/30/2021 services? Do you belong to any clubs or organizations Yes 11/30/2021 such as voodoo groups, unions, fraternal or athletic groups, or [...] slept in a senior living (including now)? Sex Assigned at Date Recorded Female 03/04/2018 7:21 PM CDT documented as of this encounter Last Filed Vital Signs Vital Sign Reading Time Taken Comments Blood Pressure 116/77 11/20/2018 1:16 PM CDT Pulse 87 11/20/2018 1:16 PM CDT Temperature 36.6 ??C (97.9 ??F) 11/20/2018 12:37 PM CDT Respiratory Rate - - Oxygen Saturation 99% 11/20/2018 1:16 PM CDT Inhaled Oxygen Concentration - - [...] (OMNICEF) 300 mg TAKE ONE CAPSULE 0 08/201808/11/2019 capsule BY MOUTH TWICE A DAY FOR 10 DAYS cyclobenzaprine HCl Take by mouth as 0 01/30/2017 08/11/2019 (CYCLOBENZAPRINE ORAL) needed. Lactobacillus acidophilus Take by mouth 0 017 08/11/2019 (PROBIOTIC ORAL) daily. documented as of this encounter Plan of Treatment Not on filedocumented as of this encounter Procedures Procedure Name Priority Date/Time Associated Comments Diagnosis FL LUMBAR SPINE RAD - Routine 11/20/2018 1:14 Pain Low Back Results for this FACET INJECTION (most inpatients PM CDT procedur e are in LEFT and all the results outpatients) section. documented in this encounter Results FL Lumbar Spine Facet Injection Left (11/20/2018 1:14 PM CDT) Specimen (Source) Anatomical Collection Method Collection Time Re ceived Time Location / / Volume Laterality 11/20/2018 1:17 PM CDT Impressions [id number] - 11/20/2018 1:26 PM CDT IMPRESSION: Fluoroscopically-guided facet joint injection. NR Narrative [id number] - 11/20/2018 1:26 PM CDT EXAM: FL LUMBAR SPINE FACET INJECTION LEFT PROCEDURE: Fluoroscopically-guided Left L3-4 Facet Joint Injection. Pain score: Pre-procedural pain was rated: ??5/10 ?? Post-procedural pain was rated: ??2/10 Medications: ?? Steroid: ??2 mg betamethasone Local anesthetic: ??3.3 mg of 0.5% ropiv acaine ?? INDICATION: The patient reports the curr ent pain syndrome to be of >1 year duration and presents today for a new in jection. TECHNIQUE: Patient's pain pattern, clinical notes, and imaging were reviewed. 48-year-old female with low back and left greater th an right leg pain. Pain has been ongoing for approximately 4 years. Remote histor y of L5-S1 fusion. She's had multiple prior injections without significant rel ief of her symptoms. 11/20/2018 CT and outside MRI 09/29/2018 demonstrate degene rative changes at the L3-L4 facets. A diagnostic and potentially therapeutic l eft L3-L4 facet injection was requested and performed. Using usual sterile technique, fluorosco pic guidance, and local anesthesia, a 3.5 inch 25-gauge spinal needle was adva nced to the posterior aspect of the facet joint. ??With final needle tip pos ition, a small amount of iodinated contrast confirmed intra-articular flow. Transient vascular uptake was not observed with final needle position. 1cc of 2:1 mixture of anesthetic:steroid was administered at the joint. The needl e was withdrawn, restyletted, and removed. The patient experienced no comp lication. PREPROCEDURE: Patient seen, evaluated, a nd history reviewed. Discussed risks (including, but not limited to, bleeding and infection); benefits; and alternatives for procedure and obtained informed consent. The side and site of the procedure was marked, when applicabl e, at the time of consent. The patient understood the information and questions answered. Immediately prior to starting the procedure in the presence of the [facility] personnel, a procedural pause was conducted to verify correct patient iden tity and verification of procedure to be performed and as applicable, correct shea e and site, correct patient position, availability of implants, special equipm ent, or special requirements, and all image and specimen identification data. The roles and responsibilities of care team members, residents, and fellows wer e discussed. Procedure Note Ruth Coe M.D. - 11/20/2018Forma tting of this note might be different from the original. EXAM: FL LUMBAR SPINE FACET INJECTION LE FT PROCEDURE: Fluoroscopically-guided Left L3-4 Facet Joint Injection. Pain score: Pre-procedural pain was rated: 5/10 Post-procedural pain was rated: 2/10 Medications: Steroid: 2 mg betamethasone Local anesthetic: 3.3 mg of 0.5% ropivac bj INDICATION: The patient reports the curr ent pain syndrome to be of >1 year duration and presents today for a new in jection. TECHNIQUE: Patient's pain pattern, clinical notes, and imaging were reviewed. 48-year-old female with low back and left greater th an right leg pain. Pain has been ongoing for approximately 4 years. Remote histor y of L5-S1 fusion. She's had multiple prior injections without significant rel ief of her symptoms. 11/20/2018 CT and outside MRI 09/29/2018 demonstrate degene rative changes at the L3-L4 facets. A diagnostic and potentially therapeutic l eft L3-L4 facet injection was requested and performed. Using usual sterile technique, fluorosco pic guidance, and local anesthesia, a 3.5 inch 25-gauge spinal needle was adva nced to the posterior aspect of the facet joint. With final needle tip posit ion, a small amount of iodinated contrast confirmed intra-articular flow. Transient vascular uptake was not observed with final needle position. 1cc of 2:1 mixture of anesthetic:steroid was administered at the joint. The needl e was withdrawn, restyletted, and removed. The patient experienced no comp lication. PREPROCEDURE: Patient seen, evaluated, a nd history reviewed. Discussed risks (including, but not limited to, bleeding and infection); benefits; and alternatives for procedure and obtained informed consent. The side and site of the procedure was marked, when applicabl e, at the time of consent. The patient understood the information and questions answered. Immediately prior to starting the procedure in the presence of the [facility] personnel, a procedural pause was conducted to verify correct patient iden tity and verification of procedure to be performed and as applicable, correct shea e and site, correct patient position, availability of implants, special equipm ent, or special requirements, and all image and specimen identification data. The roles and responsibilities of care team members, residents, and fellows wer e discussed. IMPRESSION: Fluoroscopically-guided face t joint injection. NR Hebert Pereyra III, M.D. IMG FLUOROSCOPY PROCEDURES Performing Organization Address City/State/ZIP Code Phon e Number [id number] NA documented in this encounter Visit Diagnoses Diagnosis Pain Low Back Unspecified documented in this encounter Administered Medications Inactive Administered Medications - up to 3 most recent administrations Medication Order MAR Action Action Date Dose Rate Site betamethasone acetate & sodium Given 11/20/2018 1:12 PM CDT 2 mg Back phosphate injection (CELESTONE SOLUSPAN) Code/trauma/sedation medication, Starting on Fri11/20/18 at 1312 iohexol 300 mg iodine/mL solution Given 11/20/2018 1:12 PM 0.25 mL Back (OMNIPAQUE) CDT Code/trauma/sedation medication, Starting on Fri11/20/18 at 1312 lidocaine 10 mg/mL (1 %) injection Given 11/20/2018 1:09 PM CDT 2 mL Back (XYLOCAINE) Code/trauma/sedation medication, Starting on Fri11/20/18 at 1309 ropivacaine (PF) 5 mg/mL (0.5 %) injection Given 11/20/2018 1:12 PM CDT 1 mL Back (NAROPIN) Code/trauma/sedation medication, Starting on Fri11/20/18 at 1312 documented in this encounter
--- OUTSIDE RECORDS SUMMARY | 2022-04-23 15:46 | XMS_ITS | Encounter Summary ---
:1970 Author Organization [facility] Address [address] [place] [address] Care Team Providers Name Role Phone Unavailable Primary Care Provider Unavailable Reason for Referral Outpatient (Routine) - Closed Specialty Diagnoses / Procedures Referred By Contact Refer red To Contact Pain Medicine Diagnoses Pain Back Steve Jesus M.D. [facility] [address] [place], [place] [address] Referral ID Status Reason Start Date Expiration Date Visits Requ ested Visits Authorized [id number] Closed 10/05/2018 10/05/2019 1 1 TRICIAN YARD Outpatient (Routine) - Closed Specialty Diagnoses / Procedures Referred By Contact Refer red To Contact [facility] [address] [place] [address] Referral ID Status Reason Start Date Expiration Date Visits Requ ested Visits Authorized [id number] Closed 10/05/2018 10/05/2019 1 1 TRICIAN YARD Encounter Details Date Type Department Care Team Description 10/05/2018 Orders Only Department of Reyna Sanchez k (Primary Dx) Orthopedic Surgery in [place] [place] [place], [place] [address] [facility] [address] [place] [phone] Social History Tobacco Use Types Packs/Day Years [...] or relatives? How often do you attend restorationist or druze More than 4 time s per year 11/30/2021 services? Do you belong to any clubs or organizations Yes 11/30/2021 such as restorationist groups, unions, fraternal or athletic groups, or [...] Outpatient Referral Routine Ex pected: office visit 10/05/2018 (clinic) (Approximate), Expires: 10/05/2021 Pain Medicine - Outpatient Referral Routine Pain Back Expec ezekiel: Spine consult 10/05/2018 (clinic) (Approximate), Expires: 10/05/2021 documented as of this encounter Visit Diagnoses Diagnosis Pain Back - Primary documented in this encounter
--- OUTSIDE RECORDS SUMMARY | 2022-04-23 15:46 | XMS_ITS | Encounter Summary ---
:1970 Author Organization [facility] Address [address] [place] [address] Care Team Providers Name Role Phone Unavailable Primary Care Provider Unavailable Encounter Details Date Type Department Care Team Description 06/22/2019 Documentation Department of Orthopedic Layla Jesus, Surgery in [place] [address] [address] [facility] [address] [place] [address] [phone] (Wo rk) Social History Tobacco Use Types [...] How often do you attend protestant or methodist More than 4 time s per year [...] or slept in a residential (including now)? Sex Assigned at Date Recorded Female 03/04/2018 7:21 PM CDT documented as of this encounter Progress Notes Cristal Awan APRN, TATY, M.S. - 06/22/2019 4:08 PM CST Mrs. Booker is a patient of Dr. Jesus. She is scheduled to proceed with a L3-4 decompression and fusion on 12 August 2019. She has a previous in situ fusion from L4-S1. The patient has trialed and failed conservative treatments. She underwent a bilateral L3-4 facet injection on 25 February 2019. She later underwent a L5 transforaminal epidural steroid injection on the left on 22 March 2019. She had marked diagnostic but no long-lasting therapeutic benefit from these injections. In addition to these injection she has been modifying her activities and utilizing [id number] and prescription medication to attempt to palliate her symptoms. DENTIAL AIDE documented in this encounter Plan of Treatment Not on filedocumented as of this encounter Visit Diagnoses Not on filedocumented in this encounter
--- OUTSIDE RECORDS SUMMARY | 2022-04-23 15:46 | XMS_ITS | Encounter Summary ---
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 Spondylolisthesis Lumbar Region in [place] [address] [address] [place], [place] [address] [place] [address] [place], [place] [phone] (Work) [phone] Social History Tobacco Use Types Packs/Day Years [...] or relatives? How often do you attend denominational or baptism More than 4 time s per year 11/30/2021 services? Do you belong to any clubs or organizations Yes 11/30/2021 such as denominational groups, unions, fraternal or athletic groups, or [...] mcg (1,000 Unit) mouth every tablet morning. azithromycin (ZITHROMAX) TAKE 2 TABLETS BY 0 02/0 02/201908/11/2019 250 mg tablet MOUTH FOR ONE DAY THEN ONE TABLET DAILY FOR FOUR DAYS calcium carbonate 1,500 mg Take 1 tablet by 0 08/201512/07/2020 (600 mg calcium) tablet mouth 2 (two) times a day. One in AM, one in PM cefdinir (OMNICEF) 300 mg TAKE ONE CAPSULE BY 0 0 09/04/2018 08/11/2019 capsule MOUTH TWICE A DAY FOR 10 DAYS cyclobenzaprine HCl Take by mouth as 0 01/30/2017 08/11/2019 (CYCLOBENZAPRINE ORAL) needed. Lactobacillus acidophilus Take by mouth 0 017 08/11/2019 (PROBIOTIC ORAL) daily. MULTIVITAMIN ORAL Take 2 tablets by 0 04/02/2004 11/20/2018 mouth 2 (two) times a day. Multiple vitamin tabs pregabalin (LYRICA) 75 mg Take 75 mg by 0 018 11/20/2018 capsule mouth. documented as of this encounter Plan of Treatment Not on filedocumented as of this encounter Procedures Procedure Name Priority Date/Time Associated Comments Diagnosis DX LUMBAR SPINE RAD - Routine 11/05/2018 2:11 Pain Back Results for this 4+ VIEWS (most inpatients PM CDT Spondylosis procedure a re in and all Lumbar Without the results outpatients) Myelopathy section. Spondylolisthesis Lumbar Region documented in this encounter Results DX Lumbar [...] this encounter Visit Diagnoses Diagnosis Pain Back Spondylosis Lumbar Without Myelopathy Spondylolisthesis Lumbar Region documented in this encounter
--- OUTSIDE RECORDS SUMMARY | 2022-04-23 15:46 | XMS_ITS | Encounter Summary ---
:1970 Author Organization [facility] Address [address] [place] [address] Care Team Providers Name Role Phone Unavailable Primary Care Provider Unavailable Reason for Referral MRI/CAT/PET Scan (Routine) - Closed Specialty Diagnoses / Procedures Referred By Contact Refer red To Contact Radiology Diagnoses Pain Low Back Unspecified Hebert Pereyra III [place] [facility] Procedures CT Lumbar Spine without IV Contrast [place] CT LUMBAR SPINE WO CNTRST [facility] CT LUMBAR SPINE WO CNTRST [place] CT LUMBAR SPINE WO CNTRST M.D. [address] [place], [place] [phone] Referral ID Status Reason Start Date Expiration Date Visits Requ ested Visits Authorized [id number] Closed 11/16/2018 11/16/2019 1 1 Outpatient (Routine) - Closed Specialty Diagnoses / Procedures Referred By Contact Refer red To Contact Orthopedic Surgery Hebert Pereyra III [facility] Chavez [address] [place] [address] Referral ID Status Reason Start Date Expiration Date Visits Requ ested Visits Authorized [id number] Closed 11/16/2018 11/16/2019 1 1 Scheduling Instructions Please schedule on same day as CT and fa cet injection. Please schedule 2-3 hours after facet injection so we can assess r elief. Outpatient (Routine) - Closed Specialty Diagnoses / Procedures Referred By Contact Refer red To Contact Diagnoses Pain Low Back Unspecified Hebert Pereyra III [facility] Procedures FL Lumbar Spine Facet Injection Left [facility]ICAL [facility] Kathy [address] [place] [phone] Referral ID Status Reason Start Date Expiration Date Visits Requ ested Visits Authorized [id number] Closed 11/16/2018 11/16/2019 1 1 Reason for Visit Outpatient (Routine) - Closed Specialty Diagnoses / Procedures Referred By Contact Refer red To Contact Orthopedic Surgery Steve Jesus [place] [facility] Chavez [address] [place] [address] Referral ID Status Reason Start Date Expiration Date Visits Requ ested Visits Authorized [id number] Closed 10/05/2018 10/05/2019 1 1 Encounter Details Date Type Department Care Team Description 11/16/2018 Office Visit Department of [place], Stenosis Spina l (Primary Dx); Orthopedic Surgery Steve Haskins M.D. Pain Low Back; in [address] Primary Osteoarthritis Lumbar Spine; [place], [place] Radiculopathy Lumbosacral; [address] [place] [phone] Spondylolisthesis Acquired; [place], [place] [phone] [place] [id number] (Work) [phone] Social History Tobacco Use Types Packs/Day Years [...] How often do you attend zoroastrian or yarsanism More than 4 time s [...] or slept in a half-way (including now)? Sex Assigned at Date Recorded Female 03/04/2018 7:21 PM CDT documented as of this encounter Progress Notes Steve Jesus M.D. - 11/16/2018 9:30 AM CDT NAME: Josie Booker : 1970 TODAY'S DATE: 11/16/18 @PAINASSESMENT@ CHIEF COMPLAINT: Low back pain, left leg pain LONNIE: 22 raw score, 44% NDI: 1 PROMIS: Physical health raw score 11, mental health raw score 9 PHQ-2: 2 HISTORY: Josie Booker is a 48 y.o. female who comes in today for evaluation of low back pain and left greater than right leg pain. We last saw her 1 year ago for similar symptoms. Briefly, she has a longstanding history of chronic low back pain and lower extremity leg pain. When she was 14 or 15she had a fusion of L5-S1. She states following this procedure she had no back pain or symptoms until 4-5 years ago. Over these past few years she has had persistent pain. This pain prevents her from doing the activities that she wants to do. She describes the pain is 50% low back pain and 50% extremity pain, mostly of the left leg. The low back pain is dull and constant, worse with standing or prolon ged activity. The pain radiates down her left leg past her knee and to the outside of her foot. She describes this pain as sharp. She also has intermittent bilateral paresthesias to both legs but worseon the left. She rates her pain as a 6/10. She has tried numerous non operative intervention including medication, epidural injections, facet injections, medial branch nerve blocks, massage, and physical therapy. She is currently taking Lyrica, Flexeril, and occasionally ibuprofen or Tylenol for her pain. She has been evaluated by a different surgeon who recommended combined anterior and posterior spinal fusion surgery. She has also been seen by our Pain Clinic for possible spinal cord stimulator placement. She is here to discuss her options move forward and look for a second opinion. NEUROLOGICAL: Motor: No. Sensory: Bilateral lower extremity paresthesias, worse in the left leg. Bladder: No. Bowel: No. Balance: The patient has had near-falls, but no falls in the last year. Manual Dexterity: No. Social History: Non smoker, social alcohol use Current Pain Medications: Lyrica, Flexeril, and occasionally ibuprofen or Tylenol for her pain. REVIEW OF SYSTEMS: . Genitourinary: Positive for decreased libido. Musculoskeletal: Positive for arthralgias, back pain, pain or stiffness in the joints and muscle pain/stiffness. Neurological: Positive for numbness or shooting pain in hands, arms, legs, or feet. Psychiatric/Behavioral: Positive for decreased libido. The following systems were negative: Constitutional, Skin, Eyes, ENT, CV, Respiratory, GI, Hematologic PHYSICAL EXAM: GENERAL: Alert, oriented, in no apparent distress. Motor: Upper Extremity: Left Right Deltoids: 12/06 12/06 Biceps: 12/06 12/06 Triceps: 12/06 12/06 Wrist Ext: 12/06 12/06 Wrist Flex: 12/06 12/06 Computer Graphics Illustrator: 12/06 12/06 Lower Extremity: Left Right Iliopsoas: 12/06 12/06 Quadriceps: 12/06 12/06 Tibialis Ant: 12/06 12/06 EHL: 12/06 12/06 Gastrocs: 12/06 12/06 Hamstrings: 12/06 12/06 Reflexes: Bi Tri BR Pat Ach Maureen IBR Clonus RIGHT 2 2 2 2 2 - - 0-2bts LEFT 2 2 2 2 2 - - 0-2bts IMAGING: Lumbar spine radiographs demonstrate grade III-IV anteriorlisthesis L5 on S1 which is unchanged compared to previous radiographs. 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 Slight anteriolisthesis of L3 on L4. She does have advanced degenerative facet disease L3-L4. I do not see any abnormal motion on flexion or extension radiographs. She does have some disc space height loss in her lumbar vertebrae as well as some moderate SI joint degeneration. ASSESSMENT: #1 Pain Low Back #2 Stenosis Spinal #3 Primary Osteoarthritis Lumbar Spine #4 Radiculopathy Lumbosacral #5 Spondylolisthesis Acquired #6 Fusion Lumbar Spine Status Post Josie Booker is a 48 y.o. female a past medical history significant for previous L5-S1 fusion as a teenager, and chronic low back pain for the past few years. She presents for evaluation and second opinion. We had a long discussion in regards to her symptoms, her previous treatment attempts, herimaging, and her options moving forward. She has tried many non operative modalities, and continues to have pain. She did have a injection in October which she claims was surrounding her left L5 nerve root which did provide quite a bit of pain relief. She is mostly complaining of low back and left leg pain, but does endorse some left hip pain and right leg pain. Is difficult to determine exactly where her pain is coming from, but I suspect is mostly from her back. She does have significant anteriolisthesis L5-S1, however from looking at her CT scan from 2017 it appears that this is well fused. She does have significant degenerative facet disease L3-L4 with positive vacuum sign. I suspect this to be a large contributor to her pain. We discussed the treatment plan moving forward including operative versus non operative management, however at this point I would like to get some more diagnostic information to see if we can pinpoint where her pain is coming from. Suggest we get an L3-L4 facet injection on the left side and then see her in clinic a few hours afterwards to assess and document her pain relief. I would also like to get a new CT scan to assess L5-S1 to see if it is fused. We also discussed consistently taking an over the counter anti-inflammatory medication such as Aleve to help improveher symptoms. PLAN: 1. New lumbar CT scan 2. Left L3-4 facet injection, with follow-up appointment scheduled a few hours after worse to clinically assess her symptoms and pain relief. We will make these appointments for the near future. 3. Regular use of daak-sdq-sbhxmil anti-inflammatory medication such as Aleve 4. All of her questions were answered and she is comfortable with the plan. She knows to contact theclinic if any questions should arise. Hebert Pereyra MD The above history, physical, imaging, impression and plan were discussed with Dr. Jesus who waspresent and was in agreement. Kindly CC the following care team colleagues: PCP: No primary care provider on file. documented in this encounter Plan of Treatment Scheduled Referrals Name Type Priority Associated Diagnoses Order S chedule Ortho Surg / Outpatient Referral Routine Expected : Podiatry estab pt 11/16/2018 visit (clinic) (Approximate) , Expires: 11/16/2021 documented as of this encounter Results FL Lumbar Spine Facet Injection Left (11/20/2018 1:14 PM CDT) Specimen (Source) Anatomical Collection Method Collection Time Re ceived Time Location / / Volume Laterality 11/20/2018 1:17 PM CDT Impressions [id number] - 11/20/2018 1:26 PM CDT IMPRESSION: Fluoroscopically-guided facet joint injection. NR Narrative [id number] - 11/20/2018 1:26 PM CDT EXAM: FL [...] the procedure in the presence of [facility], a procedural pause was conducted to verify correct patient iden tity and verification of procedure to be performed and as applicable, correct shea e and site, correct patient position, availability of implants, special equipm ent, or special requirements, and all image and specimen identification data. The roles and responsibilities of care team members, residents, and fellows katelny e discussed. Procedure Note Ruth Coe M.D. [...] the procedure in the presence of the [facility] personnel, a procedural pause was conducted to [...] Organization Address City/State/ZIP Code Phon e Number [id number] Lumbar Spine without IV Contrast (11/20/2018 10:25 AM CDT) Anatomical Region Laterality Modality Lumbar Spine, Neuroradiology RST LOS, Neuroradiology N/A Computed Tomography ARZ LOS, Neuroradiology FLA LOS Specimen (Source) Anatomical Collection Method Collection Time Re ceived Time Location / / Volume Laterality 11/20/2018 10:40 AM CDT Impressions 11/20/2018 10:57 AM CDT IMPRESSION: 1. Grade 2/3 anterolisthesis of L5 on S1 is not definitely changed since 09/29/2018. 2. Posterior bony fusion L4-S1 appears s olid bilaterally. Narrative 11/20/2018 10:57 AM CDT EXAM: CT LUMBAR SPINE WITHOUT IV CONTRAST FINDINGS: CT lumbar spine without contra st 11/20/2018. Indication left radiculopathy. Comparison MRI 09/29/2018 . Grade 2/3 anterolisthesis of L5 on S1 is not definitely changed since 09/29/2018. This again results in severe bilateral L5-S1 foraminal stenosis. There appears to be solid bony fusion po steriorly at L4-S1. At L3-4 there is advanced facet arthropathy with the focu s of air on the right indicating a right facet synovial cyst. Absence of visualiz ation of this synovial cyst on the prior MRI suggests that it is small. The L3-4 and L4-5 neural foramina are patent bilaterally. The upper lumbar spine appe ars well preserved. Procedure Note Noe Henley M.D. - 11/20/2018 EXAM: CT LUMBAR SPINE WITHOUT IV CONTRAS T FINDINGS: CT lumbar spine without contra st 11/20/2018. Indication left radiculopathy. Comparison MRI 09/29/2018 . Grade 2/3 anterolisthesis of L5 on S1 is not definitely changed since 09/29/2018. This again results in severe bilateral L5-S1 foraminal stenosis. There appears to be solid bony fusion po steriorly at L4-S1. At L3-4 there is advanced facet arthropathy with the focu s of air on the right indicating a right facet synovial cyst. Absence of visualiz ation of this synovial cyst on the prior MRI suggests that it is small. The L3-4 and L4-5 neural foramina are patent bilaterally. The upper lumbar spine appe ars well preserved. IMPRESSION: 1. Grade 2/3 anterolisthesis of L5 on S1 is not definitely changed since 09/29/2018. 2. Posterior bony fusion L4-S1 appears s olid bilaterally. Hebert Pereyra III, M.D. IMG CT PROCEDURES documented in this encounter Visit Diagnoses Diagnosis Stenosis Spinal - Primary Pain Low Back Unspecified Primary Osteoarthritis Lumbar Spine Radiculopathy Lumbosacral Spondylolisthesis Acquired Fusion Lumbar Spine Status Post Pain Low Back Unspecified Pain Low Back Unspecified documented in this encounter
--- OUTSIDE RECORDS SUMMARY | 2022-04-23 15:46 | XMS_ITS | Encounter Summary ---
:1970 Author Organization [facility] Address [address] [place] [address] Care Team Providers Name Role Phone Unavailable Primary Care Provider Unavailable Reason for Visit Reason Onset Date Comments Pre-visit Testing Orders 01/02/2018 Rhizotomy Medication Problem 01/02/2018 Arthrotec Appointment 01/02/2018 Will there be one sc heduled after injection? Encounter Details Date Type Department Care Team Description 01/02/2018 Clinical Communication Department of [place], Pre- visit Testing Orthopedic Surgery Steve Haskins M.D. Orders (Rhizotomy); in [place], [facility] [address] [facility] Med[facility] Problem Pre[place], [place] (Arth[facility]); [address] [facility] [phone] Appointment ([place], [place] [phone] there be one [id number] (Work) scheduled after [phone] injection?) (Fax) Social History Tobacco Use Types Packs/Day Years [...] or relatives? How often do you attend uatsdin or evangelical More than 4 time s per year 11/30/2021 services? Do you belong to any clubs or organizations Yes 11/30/2021 such as uatsdin groups, unions, fraternal or athletic groups, or [...] this encounter Miscellaneous Notes Telephone Encounter - Kofi Espinoza APRN, CNS, M.A.N. - 01/02/2018 1:31 PM CDT These 3 questions and many more have been addressed by myself, Cristal, and the pain clinic already. Telephone Encounter - Radha Cross - 01/02/2018 9:50 AM CDT #1 January when she comes for rhizotomy injections. Has a lot of degenerative joints...will the people who will be doing the injection have the ability to go to different locations if they feel it is necessary? Go beyond the recommendation referral? #2 Does she follow up with Dr. Jesus afterwards if the procedure is done or not? When would want to see patient? #3 Prescribed arthrotec. Not better on her stomach. Is taking Gabapentin. Is there any other route to take? Other medication or procedure? That goes beyond the treatment of arthrotec? Previously asked these questions but they have never been addressed. Patient said she can be called or a portal message is good too. documented in this encounter Plan of Treatment Not on filedocumented as of this encounter Visit Diagnoses Not on filedocumented in this encounter
--- OUTSIDE RECORDS SUMMARY | 2022-04-23 15:46 | XMS_ITS | Encounter Summary ---
:1970 Author Organization [facility] Address [address] [place] [address] Care Team Providers Name Role Phone Unavailable Primary Care Provider Unavailable Encounter Details Date Type Department Care Team Description 09/15/2015 Hospital Encounter HX RST EMERGENCY Provider, Historic [facility] Social History Tobacco Use Types Packs/Day Years [...] How often do you attend restorationist or restorationism More than 4 time s [...]
--- OUTSIDE RECORDS SUMMARY | 2022-04-23 15:46 | XMS_ITS | Encounter Summary ---
:1970 Author Organization [facility] Address [address] [place] [address] Care Team Providers Name Role Phone Unavailable Primary Care Provider Unavailable Reason for Referral Outpatient (Routine) - Closed Specialty Diagnoses / Procedures Referred By Contact Refer red To Contact Diagnoses Spondylosis Cervical Without Myelopathy Gali Loza P.A.-C., [facility] Procedures [place] Cervical Spine Medial Branch Nerve Block Bilateral M.S. [address] [place], [place] [address] Referral ID Status Reason Start Date Expiration Date Visits Requ ested Visits Authorized [id number] Closed 01/19/2018 01/19/2019 1 1 Reason for Visit Outpatient (Routine) - Closed Specialty Diagnoses / Procedures Referred By Contact Refer red To Contact Diagnoses Spondylosis Cervical Without Myelopathy Gali Loza P.A.-C., [facility] Procedures [place] Cervical Spine Medial Branch Nerve Block Bilateral M.S. [address] [place], [place] [address] Referral ID Status Reason Start Date Expiration Date Visits Requ ested Visits Authorized [id number] Closed 01/19/2018 01/19/2019 1 1 Encounter Details Date Type Department Care Team Description 01/19/2018 Hospital Encounter Division of Pain Gali Loza ndylosis Cervical Medicine in [place], Without Myelopa thy [place], [place] M.S. [address] [place] [phone] Social History Tobacco Use Types Packs/Day Years [...] How often do you attend synagogue or scientology More than 4 time s [...] Sign Reading Time Taken Comments Blood Pressure 134/79 01/19/2018 11:25 AM CDT Pulse 90 01/19/2018 11:25 AM CDT Temperature - - Respiratory Rate - - Oxygen Saturation 100% 01/19/2018 11:25 AM CDT Inhaled Oxygen Concentration - - Weight - - Height - - Body Mass Index - - documented in this encounter Medications at Time of Discharge Medication Sig Dispensed Refills Start Date End Date acetaminophen (TYLENOL) Take 1,000 mg by 0 500 mg tablet mouth as needed for pain. gabapentin (NEURONTIN) 100 Take 100 mg by 0 10/2411/05/2018 mg capsule mouth. Lactobacillus acidophilus Take by mouth 0 017 08/11/2019 (PROBIOTIC ORAL) daily. calcium carbonate 1,500 mg Take 1 tablet by 0 08/201512/07/2020 (600 mg calcium) tablet mouth 2 (two) times a day. One in AM, one in PM cyclobenzaprine HCl Take by mouth as 0 01/30/2017 08/11/2019 (CYCLOBENZAPRINE ORAL) needed. MULTIVITAMIN ORAL Take 2 tablets by 0 04/02/2004 11/20/2018 mouth 2 (two) times a day. Multiple vitamin tabs documented as of this encounter Procedure Notes Alfonzo Campbell M.D. - 01/19/2018 10:52 AM CDTAssociated Order(s): [place] CERVICAL SPINE MEDIAL BRANCH NERVE BLOCK INJECTION Post-Procedure Diagnose(s): Spondylosis Cervical Without Myelopathy [place] Cervical Spine Medial Branch Nerve Block Bilateral Date/Time: 01/19/2018 10:52 AM Performed by: ALFONZO CAMPBELL Authorized by: GALI LOZA Site: Cervical Procedure details: Pre-procedural pain: 5/10 Post-procedural pain: 4/10 Cervical: Medial branch block (MBB) Medial branch block (MBB): Left C5-C6, Right C5-C6, Left C7-T1 and Right C7-T1 Needle or RF cannula: Spinal Needle size: 22 G Needle length: 3.5 in Patient position: prone Fluoroscopic guidance: Yes Medication administered: Total volume injected (mL): 4 Injected medication(s): The injected medication(s) listed was divided equally between the identifiedinjection location(s) 4 mL lidocaine 20 mg/mL 3 mL iohexol 300 mg iodine/mL Anesthetic/Sedation Details: Anesthesia method: Local infiltration Lidocaine 1%: 4 mL Procedure details: Medial branch block ((MBB)) - cervical: Using fluoroscopy, the mid-body of the articular pillar at the appropriate levels were identified and marked. Using fluoroscopic guidance, a spinal needle was advanced to each target. After negative aspiration, the contrast was injected at each site. Spread of contrast approximated the region of the medial branches/dorsal ramus and there was no evidence of intravascular uptake. The patient tolerated the procedure well and there were no apparent complications.After appropriate observation, the patient was dismissed in good condition under their own power. The patient was instructed to keep a pain diary and report the results of the injection. Consent: Consent obtained: Written The benefits, risks and alternatives to the procedure and the potential need for sedation or anesthesia as well as the names, roles, and responsibilities of healthcare team members performing significant interventional tasks were discussed with the patient and/or decision maker.: yes The benefits, risks and alternatives to the possible need for blood products were discussed with the patient and/or decision maker.: Consent for transfusion was obtained Gunlock protocol: All relevant documentation and testing were reviewed and available. All required blood products, implants, devices and/or special equipment were made available as applicable. The pre-procedure verification was conducted, the correct site was marked if required, and the procedural time out was conducted prior to performing the procedure and confirmed in a procedural pause.: yes Pre-procedure details: Procedure purpose: Diagnostic Appropriate hand hygiene, gown, cap, mask, protective eyewear, sterile gloves, skin preparation, sterile drape, and strict aseptic technique were utilized as applicable for the procedure: yes Site preparation: Chlorhexidine documented in this encounter Plan of Treatment Not on filedocumented as of this encounter Procedures Procedure Name Priority Date/Time Associated Diagnosis Comme nts FL CERVICAL SPINE Routine 01/19/2018 11:25 AM Spondylosis Cerv ical Results for this MEDIAL BRANCH NERVE CDT Without Myelopathy pr ocedure are in BLOCK INJECTION the results section. documented in this encounter Results FL Cervical Spine Medial Branch Nerve Block Bilateral (01/19/2018 11:25 AM CDT) Specimen (Source) Anatomical Location Collection Method / Collectio n Time Received Time / Laterality Volume Narrative Alfonzo Campbell M.D. - 01/19/2018 10:5 2 AM CDT Alfonzo Campbell M.D. ? 01/19/2018 12:45 PM [place] Cervical Spine Medial Branch Nerve Bl ock Bilateral Date/Time: 01/19/2018 10:52 AM Performed by: ALFONZO CAMPBELL Authorized by: GALI LOZA ??Site: ??Cervical Procedure details: ??Pre-procedural pain: ??5/10 ??Post-procedural pain: ??4/10 ??Cervical: ??Medial branch block (MBB) ??Medial branch block (MBB): ??Left C5- C6, Right C5-C6, Left C7-T1 and Right C7-T1 ??Needle or RF cannula: ??Spinal ??Needle size: ??22 G ??Needle length: ??3.5 in ??Patient position: prone ??Fluoroscopic guidance: Yes ?? Medication administered: ??Total volume injected (mL): ??4 Injected medication(s): The injected med ication(s) listed was divided equally between the identified injection location(s) ??4 mL lidocaine 20 mg/mL ??3 mL iohexol 300 mg iodine/mL Anesthetic/Sedation Details: ??Anesthesia method: ??Local infiltrati on ??Lidocaine 1%: 4 mL Procedure details: ??Medial branch block ((MBB)) - cervica l: Using fluoroscopy, the mid-body of the articular pillar at the appropria te levels were identified and marked. Using fluoroscopic guidance, a s lauri needle was advanced to each target. After negative aspiration, the c ontrast was injected at each site. Spread of contrast approximated the robert on of the medial branches/dorsal ramus and there was no evidence of intra vascular uptake. The patient tolerated the procedure well and there w ere no apparent complications. After appropriate observation, the patie nt was dismissed in good condition under their own power. The patient was i nstructed to keep a pain diary and report the results of the injection. ?? Consent: ??Consent obtained: ??Written ??The benefits, risks and alternatives to the procedure and the potential need for sedation or anesthesia as well as the names, roles, and responsibilities of healthcare team memb ers performing significant interventional tasks were discussed with the patient and/or decision maker.: yes ?The benefits, risks and alternatives to the possible need for blood products were discussed with the patient and/or decision maker.: ??Consent for transfusion was obtained Gunlock protocol: ??All relevant documentation and testin g were reviewed and available. All required blood products, implants, devic es and/or special equipment were made available as applicable. The pre-pr ocedure verification was conducted, the correct site was marked i f required, and the procedural time out was conducted prior to performi ng the procedure and confirmed in a procedural pause.: yes ?? Pre-procedure details: ??Procedure purpose: ??Diagnostic ?Appropriate hand hygiene, gown, cap, mask, protective eyewear, sterile gloves, skin preparation, sterile drape, and strict aseptic technique were utilized as applicable for the procedure : yes ?Site preparation: ??Chlorhexidine Gali Loza P.A.-C. M.S. FLUORO GUIDED PAIN PROCE DURES documented in this encounter Visit Diagnoses Diagnosis Spondylosis Cervical Without Myelopathy documented in this encounter Administered Medications Inactive Administered Medications - up to 3 most recent administrations Medication Order MAR Action Action Date Dose Rate Site iohexol 300 mg iodine/mL solution 3 Given 01/19/2018 10:52 AM CD T 3 mL mL (OMNIPAQUE) 3 mL, injection, One-Time, Starting on Fri01/19/18 at 1052, For 1 dose lidocaine 20 mg/mL injection 4 mL (XYLOC BRIGETTE) Given 01/19/2018 10:52 AM CDT 4 mL 4 mL, injection, One-Time, Starting on Fri01/19/18 at 1052, For 1 dose documented in this encounter
--- OUTSIDE RECORDS SUMMARY | 2022-04-23 15:46 | XMS_ITS | Encounter Summary ---
:1970 Author Organization [facility] Address [address] [place] [address] Care Team Providers Name Role Phone Unavailable Primary Care Provider Unavailable Reason for Referral MRI/CAT/PET Scan (Routine) - Closed Specialty Diagnoses / Procedures Referred By Contact Refer red To Contact Radiology Diagnoses Pain Low Back Unspecified Hebert Pereyra III, [facility] Procedures CT Lumbar Spine without IV Contrast LA CT LUMBAR SPINE WO CNTRST HC CT LUMBAR SPINE WO CNTRST LA CT LUMBAR SPINE WO CNTRST M.D. [address] [place] [address] Referral ID Status Reason Start Date Expiration Date Visits Requ ested Visits Authorized [id number] Closed 11/16/2018 11/16/2019 1 1 Reason for Visit MRI/CAT/PET Scan (Routine) - Closed Specialty Diagnoses / Procedures Referred By Contact Refer red To Contact Radiology Diagnoses Pain Low Back Unspecified Hebert Pereyra III, [facility] Procedures CT Lumbar Spine without IV Contrast LA CT LUMBAR SPINE WO CNTRST HC CT LUMBAR SPINE WO CNTRST LA CT LUMBAR SPINE WO CNTRST M.D. [address] [place] [address] Referral ID Status Reason Start Date Expiration Date Visits Requ ested Visits Authorized [id number] Closed 11/16/2018 11/16/2019 1 1 Encounter Details Date Type Department Care Team Description 11/20/2018 Hospital Encounter Department of Hebert Pereyra Low Back Radiology, Juan C MCDONALD M.D. Building, in [address] [place], [place] 200 [facility] [address] [place], [place] [phone] (Wo rk) [phone] Social History Tobacco Use Types Packs/Day Years [...] How often do you attend yazdanism or episcopal More than 4 time s [...] or slept in a chcf (including now)? Sex Assigned at Date Recorded [...] (OMNICEF) 300 mg TAKE ONE CAPSULE 0 020 08/201808/11/2019 capsule BY MOUTH TWICE A DAY FOR 10 DAYS cyclobenzaprine HCl Take by mouth as 0 01/30/2017 08/11/2019 (CYCLOBENZAPRINE ORAL) needed. Lactobacillus acidophilus Take by mouth 0 017 08/11/2019 (PROBIOTIC ORAL) daily. documented as of this encounter Plan of Treatment Not on filedocumented as of this encounter Procedures Procedure Name Priority Date/Time Associated Comments Diagnosis CT LUMBAR SPINE RAD - Routine 11/20/2018 10:25 Pain Low Back Result s for this WITHOUT IV (most inpatients AM CDT procedure a re in CONTRAST and all the results outpatients) section. documented in this encounter Results CT Lumbar Spine without IV Contrast (11/20/2018 10:25 AM CDT) Anatomical Region Laterality Modality Lumbar Spine, Neuroradiology RST LOS, Neuroradiology N/A Computed Tomography ARZ LOS, Neuroradiology FLA [facility] Specimen (Source) Anatomical Collection Method Collection Time [...]
--- OUTSIDE RECORDS SUMMARY | 2022-04-23 15:46 | XMS_ITS | Encounter Summary ---
:1970 Author Organization [facility] Address [address] [place] [address] Care Team Providers Name Role Phone Unavailable Primary Care Provider Unavailable Reason for Visit Reason Onset Date Comments meds questions 12/11/2017 Communication 12/11/2017 Encounter Details Date Type Department Care Team Description 12/11/2017 Clinical Communication [facility] questions; Orthopedic Surgery Steve Haskins M.D. Communication in [address] [facility] [address] [phone] Social History Tobacco Use Types Packs/Day Years [...] or relatives? How often do you attend rastafarian or sikhism More than 4 time s per year 11/30/2021 services? Do you belong to any clubs or organizations Yes 11/30/2021 such as rastafarian groups, unions, fraternal or athletic groups, or [...] or slept in a alf (including now)? Sex Assigned at Date Recorded Female 03/04/2018 7:21 PM CDT documented as of this encounter Miscellaneous Notes Telephone Encounter - Kofi Espinoza APRN, CNS, M.A.N. - 12/17/2017 2:07 PM CDT Ms. Portillo, The arthrotec medication is the best tolerated of the antiinflammatory medication on the market. I would not recommend trying a different medication with the side effects you are describing. I believe your best bet for pain relief will be if you are a candidate for the Rhizotomy. Kofi Telephone Encounter - Radha Llamas - 12/16/2017 3:49 PM CDT Patient called back today and I relayed that a portal message was sent for the rhizotomy question. She wanted the medication question addressed. She also has a question about whether she should be having a follow up visit with us also? Please respond by portal for these questions like Kofi did for the other one. Telephone Encounter - Kofi Espinoza APRN, CNS, M.A.N. - 12/15/2017 11:51 AM CDT Ms. Booker, The cervical Rhizotomy procedure is completed in the department of pain management here at [facility]. They will be able to explain what to expect both during the diagnostic and therapeutic phases of treatment. Kofi Espinoza APRN Orthopedics Telephone Encounter - Radha Llamas - 12/11/2017 10:36 AM CDT Transferred message from Tykli dated 12/04 as Cristal attempted to call 12/08 and 12/09 (message left 12/09). Questions from patient: #1 In [address] Jesus changed her medication (arthrotec) but that is not going well. For her arthritis. Better on stomach. But she is getting bloating and constipation. Is there different avenue, meds to try, other injections etc?..something for relief of pain If a different medication would send to [facility] [place] [address]. #2 There was mention of Rhizotomy..schedule for cervical area.. at end of January. Did end up going to shoulder doctor. Did have shoulder surgery in October. It did cause more pain in neck from the surgery.Was expect.... Will there be a follow up with Dr. Ling after the Rhizotomy? If not a candidate for rhizotomy will she see Dr. Jesus? What would be next if it doesn't work out? . documented in this encounter Plan of Treatment Not on filedocumented as of this encounter Visit Diagnoses Not on filedocumented in this encounter
--- OUTSIDE RECORDS SUMMARY | 2022-04-23 15:46 | XMS_ITS | Encounter Summary ---
:1970 Author Organization [facility] Address [address] [place] [address] Care Team Providers Name Role Phone Unavailable Primary Care Provider Unavailable Reason for Visit Reason Onset Date Comments new orders 01/16/2018 Encounter Details Date Type Department Care Team Description 01/16/2018 Clinical Communication Department of Kwaku Jarvis new orders Orthopedic Surgery in .[place], [place] [address] [facility] [address] [place] [address] [phone] Social History Tobacco Use Types Packs/Day Years [...] How often do you attend hinduism or gnosticist More than 4 time s per year [...] this encounter Miscellaneous Notes Telephone Encounter - Jaleesa Huang - 01/16/2018 2:09 PM CDT Jaleesa at the pain clinic called stating that the orders for MVB-RFA did not transfer over from [facility]. Needing new orders that were originally sent by Dr Bennett. Jaleesa [phone] Thanks Rosey documented in this encounter Plan of Treatment Not on filedocumented as of this encounter Visit Diagnoses Diagnosis Pain Postoperative - Primary documented in this encounter
--- OUTSIDE RECORDS SUMMARY | 2022-04-23 15:46 | XMS_ITS | Encounter Summary ---
:1970 Author Organization [facility] Address [address] [place] [address] Care Team Providers Name Role Phone Unavailable Primary Care Provider Unavailable Reason for Visit Reason Onset Date Comments outside medical records 12/25/2017 Communication 12/25/2017 Encounter Details Date Type Department Care Team Description 12/25/2017 Clinical Communication Department of [facility] Orthopedic Surgery Steve Haskins M.D. records; in [place] [address] [facility] [address] [facility] [phone] [phone] Social History Tobacco Use Types Packs/Day Years [...] How often do you attend sabianism or zoroastrianism More than 4 time s [...] this encounter Miscellaneous Notes Telephone Encounter - Radha Llamas - 12/25/2017 8:10 AM CDT See outside records sent as FYI (in media tab, chart review) documented in this encounter Plan of Treatment Not on filedocumented as of this encounter Visit Diagnoses Not on filedocumented in this encounter
--- OUTSIDE RECORDS SUMMARY | 2022-04-23 15:46 | XMS_ITS | Encounter Summary ---
:1970 Author Organization [facility] Address [address] [place] [address] Care Team Providers Name Role Phone Unavailable Primary Care Provider Unavailable Encounter Details Date Type Department Care Team Description 12/18/2017 Orders Only Division of Pain Medicine Gali Baker in [facility] maru Draper, M.S. [address] [facility] [address] [place] [address] [place], [place] [phone] (Wo rk) Social History Tobacco Use Types [...] How often do you attend buddhism or buddhist More than 4 time s per year [...] or slept in a fpc (including now)? Sex Assigned at Date Recorded Female 03/04/2018 7:21 PM CDT documented as of this encounter Plan of Treatment Not on filedocumented as of this encounter Visit Diagnoses Not on filedocumented in this encounter
--- OUTSIDE RECORDS SUMMARY | 2022-04-23 15:46 | XMS_ITS | Encounter Summary ---
:1970 Author Organization [facility] Address [address] [place] [address] Care Team Providers Name Role Phone Unavailable Primary Care Provider Unavailable Reason for Referral Outpatient (Routine) - Closed Specialty Diagnoses / Procedures Referred By Contact Refer red To Contact Diagnoses Spondylosis Cervical Without Myelopathy Gali Loza P.A.-C., [facility] Procedures [place] Cervical Spine Medial Branch Nerve Block Bilateral M.S. [address] [place] [address] Referral ID Status Reason Start Date Expiration Date Visits Requ ested Visits Authorized [id number] Closed 01/19/2018 01/19/2019 1 1 Encounter Details Date Type Department Care Team Description 01/19/2018 Comprehensive Visit Division of Pain Gali Loza ondylosis Cervical Medicine in [place], Without Myelopa thy Sage, M.S. (Primary Dx) [place] [address] [facility] [address] [place] [id number] Social History Tobacco Use Types Packs/Day Years [...] How often do you attend lutheran or anabaptist More than 4 time s [...] [place] [facility] (including now)? Sex Assigned at Date Recorded Female 03/04/2018 7:21 PM CDT documented as of this encounter Last Filed Vital Signs Vital Sign Reading Time Taken Comments Blood Pressure 122/75 01/19/2018 9:18 AM CDT Pulse 83 01/19/2018 9:18 AM CDT Temperature - - Respiratory Rate - - Oxygen Saturation - - Inhaled Oxygen Concentration - - Weight 61.1 kg (134 lb 11.2 oz) 01/19/2018 9:18 AM CDT Height - - Body Mass Index 26.8 11/03/2015 7:54 AM CDT documented in this encounter Progress Notes Gali Loza P.A.-C., M.S. - 01/19/2018 9:30 AM CDT SUBJECTIVE CHIEF COMPLAINT / REASON FOR VISIT Josie Booker is a 47 y.o. female who was referred to Pain Medicine by Dr. Jesus for neck pain. Preprocedure evaluation only HISTORY OF PRESENT ILLNESS is a pleasant 47-year-old female from [place], [place] who presents the pain clinicunaccompanied. She has a past medical history significant for an ACDF of C6-7 8 years ago, chronic mechanical neck pain, history of a L5-S1 fusion, and chronic lower back pain. She is being referred by Dr. Jesus for consideration of cervical medial branch blocks radiofrequency ablation. localizes her pain to her posterior neck. This pain starts in the mid neck region and involves the down into the midthoracic region. She describes his pain as a constant ache. This pain is worse with lifting, movement, sleeping wrong, looking up, wearing a backpack, caring a bag, and with pulling items. His pain is improved temporarily with massage. She feels that this pain radiates into the mid thoracic region, and right upper extremity involving the posterior upper arm into the 1st 2 fingers and thumb on the right hand. She admits to she admits to numbness affecting the 1st 2 fingers in the right hand in the thumb. She feels that this has improved since undergoing her shoulder surgery in October of this year. underwent a right shoulder arthroscopic subacromial decompression, biceps tenodesis, anddistal clavicle excision on October 02, [address] Mccarthy at [facility]. Of note, has been seen in the Pain Clinic by Dr. Magana in November 2016 regarding her chronic lower back pain. At this in the discussed medication options including gabapentin and Cymbalta, addition to the option of a spinal cord stimulator. currently is using gabapentin 100 mg daily. She notes she was up to 300 mg daily however focal there was some cognitive side effects with this medication has since been weaning off. She currently uses Tylenol and ibuprofen with occasional cyclobenzaprine. She continues doing physical therapy weekly, massage therapy every 3 weeks and [facility] every 2-3 weeks which she feels is beneficial for her pain. denies any weakness in the upper extremities. She denies any changes to bowel or bladderfunction. She denies any recent fevers, chills, infections or antibiotic use. She has no allergies local anesthetic or to contrast. She is not taking blood thinning medications. She rates her pain today 5/10 in the neck and 8/10 the lower back. Current Outpatient Prescriptions Medication Sig Dispense Refill [...] facility-administered medications for this visit. Allergies: Mold @SOCHXMED@ History Drug use: Unknown The following portions of the patient's history were reviewed and updated as appropriate: allergies,current medications, family history, medical history, social history, surgical history and problem list. All systems were reviewed and found to be negative except as noted. REVIEW OF SYSTEMS REVIEW OF SYSTEMS OBJECTIVE PHYSICAL EXAM Physical Exam General: Pleasant 47 year old female seated comfortably in exam room chair in no acute distress Skin: Skin is dry and intact across posterior neck with no rashes, lesions, or erythema Eyes: Pupils are for mm bilateral Lungs: Nonlabored respiration Musculoskeletal: Palpation: Tenderness with palpation in the mid cervical paraspinal musculature, bilateral trapezii, and periscapular region. Range of motion: Cervical spine range of motion is intact Gait: Nonantalgic Neuro: Strength: Strength is normal symmetric in upper extremity muscle groups Mental: Oriented to person, place, and time. Appropriate mood and affect. Recent and remote memory are intact. ASSESSMENT / PLAN ASSESSMENT / PLAN Imaging: Plain films of cervical spine from July 2017 significant for mild posterior listhesis of C4 on C5 and C5 on C6, no substantial change with flexion or extension. Noted facet arthropathy. #1 Spondylosis Cervical Without Myelopathy Plan 1. Intervention: presents today for consideration of cervical medial branch blocks to the possibility of radiofrequency ablation. Given her areas of pain today I feel that her pain could bedue to adjacent segment disease above and below her C6-7 fusion. I have ordered medial branch blocksof the bilateral C5-6 and C7-T1 facet joints. The pathway from diagnostic medial branch blocks to radiofrequency denervation was discussed in detail with the patient today. Risks and benefits were discussed and all questions were answered. The patient states understanding and wishes to proceed. There are no contraindications. The patient understands they will have two diagnostic medial branch blocks; and after each block they will be required tokeep a pain diary recording their pain scores approximately every half hour until their pain has returned to baseline. During the time after the block, the patient was instructed to perform activities which typically aggravate their pain. The pain clinic nursing staff will be contacting the patient after each diagnostic block to assess the amount of benefit the patient received. If the patient has a significantly positive response to each of the diagnostic blocks, they may then move forward with theradiofrequency ablation procedure. Patient was instructed to be fasting for a minimum of eight hoursand to arrive with a regional otr company driver for the radiofrequency ablation procedure. The patient should give the procedure a minimum of two weeks to obtain full benefit. 2. Follow-up: does not have a soda follow up in the Pain Clinic. She has been seen approximately a year ago by Dr. Magana for evaluation of her lower back pain. We discussed if she not have significant improvement in her pain for undergoing her medial branch blocks to the bilateral C5-6 and C7-T1 facet joints a return the Pain Clinic could be considered for re-evaluation of her chronic neck pain. PATIENT EDUCATION Ready to learn, no apparent learning barriers were identified; learning preferences included listening. Explained diagnosis and treatment plan; patient expressed understanding of the content. documented in this encounter Plan of Treatment Not on filedocumented as of this encounter Results [place] Cervical Spine Medial [...] decision maker.: ??Consent for transfusion was obtained [place] protocol: ??All relevant documentation and testin g [...] yes ?Site preparation: ??Chlorhexidine Gali Loza P.A.-C. M.SEarl FLUORO GUIDED PAIN PROCE DURES documented in this encounter Visit Diagnoses Diagnosis Spondylosis Cervical Without Myelopathy - Primary Spondylosis Cervical Without Myelopathy documented in this encounter
--- OUTSIDE RECORDS SUMMARY | 2022-04-23 15:46 | XMS_ITS | Encounter Summary ---
:1970 Author Organization [facility] Address [address] [place] [address] Care Team Providers Name Role Phone Unavailable Primary Care Provider Unavailable Reason for Visit Reason Onset Date Comments Pre-visit Testing Orders 05/19/2019 Encounter Details Date Type Department Care Team Description 05/19/2019 Clinical Communication Department of [place], Pre- visit Testing Orthopedic Surgery Steve Haskins M.D. Orders in [place], [address] [place] [address] [place] [address] [place], [place] [phone] (Work) [phone] Social History Tobacco Use Types Packs/Day Years [...] How often do you attend gnosticist or faith More than 4 time s per year [...] Notes Telephone Encounter - Brittanie Reyna - 05/19/2019 10:15 AM CDT Error documented in this encounter Plan of Treatment Not on filedocumented as of this encounter Visit Diagnoses Not on filedocumented in this encounter
--- OUTSIDE RECORDS SUMMARY | 2022-04-23 15:46 | XMS_ITS | Encounter Summary ---
:1970 Author Organization [facility] Address [address] [place] [address] Care Team Providers Name Role Phone Unavailable Primary Care Provider Unavailable Encounter Details Date Type Department Care Team Description 12/18/2017 Clinical Communication Division of Pain Gali Baker, Medicine in [place], P.A.-C., M.S. [place] [address] [address] [facility] [address] [place] [phone] Social History Tobacco Use Types Packs/Day Years [...] or relatives? How often do you attend methodist or hindu More than 4 time s per year 11/30/2021 services? Do you belong to any clubs or organizations Yes 11/30/2021 such as methodist groups, unions, fraternal or athletic groups, or [...] or slept in a jail (including now)? Sex Assigned at Date Recorded Female 03/04/2018 7:21 PM CDT documented as of this encounter Plan of Treatment Not on filedocumented as of this encounter Visit Diagnoses Not on filedocumented in this encounter
--- OUTSIDE RECORDS SUMMARY | 2022-04-23 15:46 | XMS_ITS | Encounter Summary ---
:1970 Author Organization [facility] Address [address] [place] [address] Care Team Providers Name Role Phone Unavailable Primary Care Provider Unavailable Reason for Visit Reason Onset Date Comments away 07/31-08/07 before surgery 07/29/2019 Encounter Details Date Type Department Care Team Description 07/29/2019 Clinical Communication Department of [place], [facility] 07/31-08/07 Orthopedic Surgery Steve Haskins M.D. before surgery in [place] [address] [address] [place], [place] [address] [place] [phone] [place], [place] [phone] (Work) [phone] Social History Tobacco Use Types Packs/Day Years [...] How often do you attend protestant or samaritan More than 4 time s per year [...] or slept in a halfway (including now)? Sex Assigned at Date Recorded Female 03/04/2018 7:21 PM CDT documented as of this encounter Miscellaneous Notes Telephone Encounter - Cristal Awan APRN, TATY, M.S. - 07/29/2019 2:32 PM DISABILITY REPRESENTATIVE Noted. She is taking appropriate medications and does not need to stop any. Will not be contact the patient as we have no instructions that cannot be at her listing visit. She can be reassured if she calls back. BILITY REPRESENTATIVE Telephone Encounter - Radha Llamas - 07/29/2019 12:28 PM CST Josie called in just to say she will be on vacation from 07/31-08/07, back home on 08/08. She did not know if we would be trying to contact her about preop questions like what meds not to take. She is onlytaking calcium supplement, daily vitamin,a probiotic, no ibuprofen only tylenol, no fish oil. She will be available on 08/09- for a call if needed and then here at [facility] for appointments after that for preop appts and her surgery 08/12. BILITY REPRESENTATIVE documented in this encounter Plan of Treatment Not on filedocumented as of this encounter Visit Diagnoses Not on filedocumented in this encounter
--- OUTSIDE RECORDS SUMMARY | 2022-04-23 15:49 | XMS_ITS ---
:1970 Author Care Team Providers Name Role Phone JOE DE LOS SANTOS MD Primary Care Provider [phone] Allergies None recorded. Medications Name Status Start Date Stop Date ? ? azithromycin 250 mg tablet Completed ? 11/22 TAKE TWO TABLETS BY MOUTH ONE DOSE O N THE FIRST DAY, THEN TAKE ONE DAILY THEREAFTER. cephalexin 500 mg capsule Completed ? 2020 TAKE ONE CAPSULE BY MOUTH FOUR TIMES A DAY cyclobenzaprine 10 mg tablet Active ? Not available TAKE ONE-HALF TO ONE TABLET BY MOUTH THREE TIMES DAILY NEEDE D diclofenac 50 mg-misoprostol 200 mcg tablet,immed.and delaye d release Completed ? 11/22/2020 TAKE ONE TABLET BY MOUTH TWICE A DAY . DO NOT CRUSH OR CHEW . oxycodone 5 mg tablet Completed ? 11/22/2020 TAKE ONE TO TWO TABLETS BY MOUTH EVERY 4 HOURS NEEDED Probiotic Active ? Not available tramadol 50 mg tablet Completed ? 11/22/2020 Vitamin D3 Active ? Not available Problems None recorded. Procedures Date Name Performed by ? ? Procedure on Back Information not avai lable ? Shoulder Surgery Procedure Information n ot available ? Hernia Repair W/mesh Information not david ilable Results Lab Results None recorded. 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 [address], Ph. Social History Tobacco Smoking Status Never Smoker Vaccine List None recorded. Plan of Care Reminders Provider Appointments None recorded. ? ? Lab None recorded. ? ? Referral None recorded. ? ? Procedures None recorded. ? ? Surgeries None recorded. ? ? Imaging None recorded. ? ? Vitals Height Weight BMI 5 ft 140 lbs 27.3 kg/m2
[2022-04-23 21:47] LABS: Albumin* 4.4 g/dL (3.3-5.0); Chloride* 103 mmol/L (96-114); Potassium* 4.6 mmol/L (3.6-5.1); Sodium* 136 mmol/L (135-149)
[2022-04-23 21:49] LABS: Cholesterol* 235 mg/dL (90-199)
[2022-04-23 21:50] LABS: Alanine Aminotransferase* 14 U/L (4-35); Alkaline Phosphatase* 34 U/L (40-150); Aspartate Amino Transferase* 23 U/L (12-35); Bilirubin Total* 0.3 mg/dL (0.1-1.5); Blood Urea Nitrogen* 16 mg/dL (7-30); Calcium* 9.4 mg/dL (8.4-10.6); Carbon Dioxide* 26 mmol/L (20-32); Creatinine* 1.1 mg/dL (0.5-1.5); Estimated Glomerular Filt Rate 60 ml/min; Glucose* 82 mg/dL (60-115); HDL Cholesterol* 69 mg/dL (>=50); LDL Cholesterol Calculated 127 mg/dL (<100); Total Protein* 6.9 g/dL (6.0-8.3); Triglycerides* 197 mg/dL (40-149)
[2022-04-23 22:05] LABS: Vitamin D 25 Hydroxy* 41 ng/mL (30-80)
[2022-04-23 22:37] LABS: Hepatitis C Virus Antibody* Negative (Negative)
== END 2022-04-23 15:23 | disposition home or self-care (01) ==
PROVIDERS: PCP Family Medicine; Visit Provider Family Medicine
DX: R74.8 Abnormal levels of other serum enzymes (principal); R53.83 Other fatigue; E78.5 Hyperlipidemia, unspecified
CPT/HCPCS: 80053; 80061; 82306; 86803

== ENCOUNTER 2022-05-04 04:18 | Emergency (ER) | payer BC, SELFPAY ==
[2022-05-04 04:43] VITALS: BP 123/94; PULSE 123; RESP 20; TEMP 36.7; O2SAT 98; BMI 27.7
--- NOTE | 2022-05-04 04:59 | ED.NAVMDI ---
HPI - Nausea/Vomiting/Diarrhea General Time Seen by Provider: 04:59 Date Seen: 05/04/22 Chief complaint: Nausea/Vomiting Stated complaint: Vomiting Time Seen by Provider: 05/04/22 04:58 Source: patient, RN notes reviewed and old records reviewed Mode of arrival: ambulatory Limitations: no limitations History of Present Illness HPI Narrative: Josie is a very pleasant 51-year-old female with multiple medical problems including history of elevated creatinine, COVID in March, history of a kidney lesion and fibromyalgia who comes to the emergency room for evaluation regarding ongoing retching. Patient developed nausea with vomiting and now retching yesterday evening. It is without blood. There is no associated diarrhea. She has felt chilled. She notes that for the 1st few days of her COVID illness she also had vomiting without diarrhea. She does agree that her abdomen hurts. She still retains a gallbladder. Patient notes having some vertigo 1 week ago. She saw her chiropractor who has told her that if she is out of alignment this can cause dizziness. He reset her at list/axis and she has been doing better since that time. No rapid manipulations. No numbness or tingling of the extremities. Patient does have mild headache but states this is likely from the violence of her vomiting. No other illnesses at home. Patient has had runny nose in association with the vomiting. Associated nausea: Yes Related Data Home Medications Medication Instructions Recorded Confirmed Lactobacillus acidophilus 100 mg 100 mg PO QDAY 04/17/22 05/04/22 (1 billion cell) capsule acetaminophen 500 mg tablet 500 mg PO Q6H PRN 04/17/22 05/04/22 calcium carbonate 500 mg calcium mg PO DAILY 04/17/22 04/17/22 (1,250 mg) tablet cholecalciferol (vitamin D3) 25 2,000 unit PO DAILY 04/17/22 05/04/22 mcg (1,000 unit) capsule cyclobenzaprine 10 mg tablet 10 mg PO TID PRN 04/17/22 05/04/22 coenzyme Q10 75 mg capsule (Ultra 75 mg PO DAILY 05/04/22 05/04/22 CoQ10) Previous Rx's Medication Instructions Recorded trazodone 50 mg tablet 50 mg PO QDAY #30 tabs 04/18/22 Allergies Allergy/AdvReac Type Severity Reaction Status Date / Time mold Allergy Unknown nasal Verified 05/04/22 04:48 congestion No Known Drug Intolerances Allergy Unknown Verified 04/17/22 19:57 Review of Systems Status of ROS: Reports: 10 or more systems reviewed and unremarkable except as noted in History and below Const: Reports: chills Eyes: Denies: change in vision or blind spots ENMT: Denies: neck pain Cardio: Denies: chest pain or shortness of breath with exertion Resp: Denies: shortness of breath GI: Reports: abdominal pain, nausea and vomiting; Denies: diarrhea : Denies: painful urination or urinary frequency Musculo: Denies: neck pain Neuro: Reports: headache PFSH PFSH Medical History Abdominal pain Chest wall pain Encounter for postoperative care Excessive daytime sleepiness Fibromyalgia Headache History of eustachian tube dysfunction Pressure sensation in ear Throat pain Surgical History History of breast augmentation History of carpal tunnel release History of endometrial ablation History of hernia repair History of shoulder surgery History of spinal surgery History of tonsillectomy Status post cervical spinal arthrodesis Social History Smoking Status: Never smoker How often do you have a drink containing alcohol: 2-4 times a month AUDIT-C Alcohol total score: 2 Non-prescribed substance use: denies use Little interest or pleasure in doing things: not at all Feeling down, depressed, or hopeless: several days Exam Narrative: Exam Narrative: When I enter the room patient is retching while she is having her IV placed. Immediately following administration of Zofran patient's vomiting ceases. Const: Vital Signs, click to edit/add: Vital Signs - 24 hr 05/04/22 04:43 05/04/22 07:36 Temperature 98.1 F Pulse Rate [Left] 123 H 101 H Respiratory Rate 20 16 Blood Pressure [Ri ght Upper Arm] 123/94 H 120/82 Pulse Oximetry 98 99 Oxygen Delivery Me thod Room Air Room Air Pupils are normal reactive any EOM is full. Neck is supple. Oral cavity with moist mucous membranes. Heart with a tachycardic rate but normal rhythm. Lungs are clear bilaterally. Abdomen is soft there is some minimal tenderness in the epigastrium and right upper quadrant. Lower extremities without edema. No CVA tenderness with percussion. Documenting provider has reviewed patient's vital signs: yes Course Course Hospital Course: Differential diagnosis includes but is not limited to gastritis, small-bowel obstruction, biliary colic, gastroenteritis call mow the aortic pathology. Patient will undergo laboratory values to include CBC, comprehensive panel, lipase, amylase, urinalysis. Zofran 4 mg IV is given. Reevaluation(s) Reevaluation #1: Patient noted that she is feeling better and has not had any more vomiting after the Zofran. She notes that her upper abdomen especially under her ribs does have some is a persistent discomfort. She is pleased to know that her creatinine is normal. We are going to call in the cardiopulmonary technician for abdominal ultrasound. Reevaluation #2: Patient notes that she still has continuing pain in spite of negative ultrasound. She notes that is better than when she 1st arrived. She is describing it is under her ribcage. She states she thinks this is because she has not had anything to eat or drink. She is given Sprite and a cracker. Will also give her low-dose Toradol 15 mg IV. Re-examination shows symmetrical pedal pulses no evidence of abdominal pulsating mass. No rebound tenderness. Reevaluation #3: Patient notes that after eating she is feeling better. She did also received Toradol. Amylase minimally elevated lipase is negative. Patient will be departed home. Vital Signs Vital signs: Initial Vital Signs Temperature 98.1 F 05/04/22 04:43 Temperature Source Temporal Artery Scan 05/04/22 04:43 Pulse Rate 123 H 05/04/22 04:43 Pulse Rhythm 05/04/22 04:43 Respiratory Rate 20 05/04/22 04:43 Blood Pressure 123/94 H 05/04/22 04:43 Blood Pressure Mean 103 05/04/22 04:43 Blood Pressure Position Semi-Fowlers 05/04/22 04:43 Pulse Oximetry 98 05/04/22 04:43 Oxygen Delivery Method 05/04/22 04:43 Vital Signs Temperature 98.1 F 05/04/22 04:43 Pulse Rate 123 H 05/04/22 04:43 Respiratory Rate 20 05/04/22 04:43 Blood Pressure 123/94 H 05/04/22 04:43 Pulse Oximetry 98 05/04/22 04:43 Oxygen Delivery Method 05/04/22 04:43 Temperature 98.1 F 05/04/22 04:43 Pulse Rate 101 H 05/04/22 07:36 Respiratory Rate 16 05/04/22 07:36 Blood Pressure 120/82 05/04/22 07:36 Pulse Oximetry 99 05/04/22 07:36 Oxygen Delivery Method 05/04/22 07:36 MDM - Nausea/Vomiting/Diarrhea MDM Narrative Medical decision making narrative: 1. Abdominal pain-patient has had vomiting retching and abdominal pain sudden in onset without diarrhea or fever. Does describe some chills. Her laboratory values are reassuring and she has had relief of her vomiting with Zofran. Abdominal ultrasound negative. Patient is remarkably improved after Zofran. She has some persisting upper abdominal pain that has been relieved with eating and some Toradol. Re-examination is very reassuring. 2. History of elevated creatinine with normal creatinine today 3. Disposition-home. Patient is advised to rest, push fluids, avoid alcohol and heavy in spicy foods. She will need to return for recurrent symptoms onset of new symptoms especially fever. She voices understanding that we have not found an exact etiology of her discomfort today and that returning for new symptoms is encouraged. Otherwise follow-up with primary MD. Medical Records Attestation: I reviewed the patient's medical records. Lab Data Attestation: I reviewed the patient's lab results. Labs: Lab Results 05/04/22 05/04/22 05/04/22 Range/Units 05:03 05:03 05:03 WBC 8.77 (4.50-11.00) K/uL RBC 5.21 H (4.00-5.20) m/uL Hgb 14.8 (12.0-16.0) gm/dL Hct 43.8 (33.0-51.0) % MCV 84 (80-100) fL MCH 28 (26-34) pg MCHC 34 (32-36) gm/dL RDW Coeff of Loren 12.7 (11.5-15.5) % Plt Count 262 (140-440) K/uL Neut % (Auto) 90.5 H (42.0-72.0) % Lymph % (Auto) 3.5 L (20-44) % [place] % (Auto) 5.7 (0.0-11.0) % Eos % (Auto) 0.1 (0.0-7.0) % Baso % (Auto) 0.1 (0.0-3.0) % Neut # (Auto) 7.90 H (1.7-7.0) K/uL Lymph # (Auto) 0.30 L (0.90-2.90) K/uL [place] # (Auto) 0.50 (0.00-0.90) K/UL Eos # (Auto) 0.01 (0.00-0.50) K/uL Baso # (Auto) 0.01 (0.00-0.30) K/uL Abs Immat Gran (auto) 0.01 (0.00-0.30) K/uL Sodium 137 (135-149) mmol/L Potassium 4.2 (3.6-5.1) mmol/L Chloride 106 (96-114) mmol/L Carbon Dioxide 21 (20-32) mmol/L BUN 19 (7-30) mg/dL Creatinine 0.8 (0.5-1.5) mg/dL Estimated Creat Clear 58.42 Estimated GFR 88 ml/min Glucose 123 H (60-115) mg/dL Lactate 1.4 (0.5-1.9) mmol/L Calcium 9.4 (8.4-10.6) mg/dL Magnesium 2.2 (1.5-2.6) mg/dL Total Bilirubin 0.8 (0.1-1.5) mg/dL AST 31 (12-35) U/L ALT 20 (4-35) U/L Alkaline Phosphatase 32 L (40-150) U/L Total Protein 7.9 (6.0-8.3) g/dL Albumin 4.8 (3.3-5.0) g/dL Amylase 113 H (18-89) U/L Lipase 191 (23-300) U/L Urine Color (Yellow) Urine Appearance (Clear) Urine pH (5.0-8.5) Ur Specific [place] (1.000-1.030) Urine Protein (Negative) Urine Glucose (UA) (Negative) Urine Ketones (Negative) Urine Blood (Negative) Urine Nitrite (Negative) Urine Bilirubin (Negative) Urine Urobilinogen (0.2-1.0) Ur Leukocyte Esterase (Negative) Urine RBC (0-2) Urine WBC (0-5) Urine WBC Clumps (None) Ur Squamous Epith Cells (None-Few) Urine Bacteria (None) SARS-CoV-2 (PCR) (Negative) Influenza Type A (PCR) (Negative) Influenza Type B (PCR) (Negative) 05/04/22 05/04/22 Range/Units 05:25 05:30 WBC (4.50-11.00) K/uL RBC (4.00-5.20) m/uL Hgb (12.0-16.0) gm/dL Hct (33.0-51.0) % MCV (80-100) fL MCH (26-34) pg MCHC (32-36) gm/dL RDW Coeff of Loren (11.5-15.5) % Plt Count (140-440) K/uL Neut % (Auto) (42.0-72.0) % Lymph % (Auto) (20-44) % [place] % (Auto) (0.0-11.0) % Eos % (Auto) (0.0-7.0) % Baso % (Auto) (0.0-3.0) % Neut # (Auto) (1.7-7.0) K/uL Lymph # (Auto) (0.90-2.90) K/uL [place] # (Auto) (0.00-0.90) K/UL Eos # (Auto) (0.00-0.50) K/uL Baso # (Auto) (0.00-0.30) K/uL Abs Immat Gran (auto) (0.00-0.30) K/uL Sodium (135-149) mmol/L Potassium (3.6-5.1) mmol/L Chloride (96-114) mmol/L Carbon Dioxide (20-32) mmol/L BUN (7-30) mg/dL Creatinine (0.5-1.5) mg/dL Estimated Creat Clear Estimated GFR ml/min Glucose (60-115) mg/dL Lactate (0.5-1.9) mmol/L Calcium (8.4-10.6) mg/dL Magnesium (1.5-2.6) mg/dL Total Bilirubin (0.1-1.5) mg/dL AST (12-35) U/L ALT (4-35) U/L Alkaline Phosphatase (40-150) U/L Total Protein (6.0-8.3) g/dL Albumin (3.3-5.0) g/dL Amylase (18-89) U/L Lipase (23-300) U/L Urine Color Yellow (Yellow) Urine Appearance Clear (Clear) Urine pH 6.0 (5.0-8.5) Ur Specific [place] 1.020 (1.000-1.030) Urine Protein Negative (Negative) Urine Glucose (UA) Negative (Negative) Urine Ketones 1+ A (Negative) Urine Blood Negative (Negative) Urine Nitrite Negative (Negative) Urine Bilirubin Negative (Negative) Urine Urobilinogen 0.2 (0.2-1.0) Ur Leukocyte Esterase 1+ A (Negative) Urine RBC 0-2 (0-2) Urine WBC 0-2 (0-5) Urine WBC Clumps None (None) Ur Squamous Epith Cells Few (None-Few) Urine Bacteria None (None) SARS-CoV-2 (PCR) Negative SARS-CoV-2 (Negative) Influenza Type A (PCR) Negative PCR FLU A (Negative) Influenza Type B (PCR) Negative PCR FLU B (Negative) Imaging Data US - abdomen: Attestation: I have reviewed the pertinent imaging results. Radiologist's impression: Negative Discharge Plan Discharge Clinical Impression: Abdominal pain Patient Disposition: Home, Self-Care Condition: Improved Additional Instructions: Rest. Push fluids. [place] foods. Avoid alcohol or anything spicy. Return to the emergency room with recurrent symptoms, onset of fever, worsening pain. Prescriptions: No Action cholecalciferol (vitamin D3) 25 mcg (1,000 unit) capsule 2,000 unit PO DAILY calcium carbonate 500 mg calcium (1,250 mg) tablet PO DAILY acetaminophen 500 mg tablet 500 mg PO Q6H PRN Lactobacillus acidophilus 100 mg (1 billion cell) capsule 100 mg PO QDAY cyclobenzaprine 10 mg tablet 10 mg PO TID PRN trazodone 50 mg tablet 50 mg PO QDAY Qty: 30 12RF Rx Instructions: take about half an hour before bedtime Ultra CoQ10 75 mg capsule 75 mg PO DAILY Follow Up/Referrals: Jennifer De La Vega MD [Primary Care Provider] - Stand Alone Forms: [facility] Info Instructions
--- OUTSIDE RECORDS SUMMARY | 2022-05-04 05:29 | XMS_ITS | Encounter Summary ---
:1970 Author Organization [place] Address [address] [facility] [place] [address] Care Team Providers Name Role Phone Unavailable Primary Care Provider Unavailable Encounter Details Date Type Department Care Team Description 03/20/2009 Results Only [facility] Richar Dupree, [facility] Radiology Results [facility] [address] [place], [place] [id number] (Wo rk) Social History Tobacco Use Types Packs/Day Years Used Date Never Assessed Sex Assigned at Date Recorded Not on file documented as of this encounter Plan of Treatment Not on filedocumented as of this encounter Procedures Procedure Name Priority Date/Time Associated Diagnosis Comme [facility] X-RAY CERV SPINE Routine 03/20/2009 8:13 [...]
--- OUTSIDE RECORDS SUMMARY | 2022-05-04 05:29 | XMS_ITS | Encounter Summary ---
:1970 Author Organization [place] Address [address] [place] [address] Care Team Providers Name Role Phone Unavailable Primary Care Provider Unavailable Encounter Details Date Type Department Care Team Description 03/10/2009 Office Visit-[place] [address] [address] [place], [place] [address] (Wo rk) Social History Tobacco Use Types Packs/Day Years Used Date Never Assessed Sex Assigned at Date Recorded Not on file documented as of this encounter Progress Notes Bishop Smith MD - 03/10/2009 1:30 PM CDT Medical Transcriptionist: Aliyah Keane Status: Amended, Final Encounter: 10 Mar 2009 Type: Rooming Note Reason For Visit Neck pain/herniated cervial disk Do you have any other appointments, tests or procedures within the [facility] system for this same day? No. Pain [...] By: Aliyah Keane RN; 03/10/2009 1:45 PM SCHEDULING ADMINISTRATOR. Signed By: Aliyah Keane RN; 03/10/2009 2:44 PM SCHEDULING ADMINISTRATOR. Signed By: Aliyah Keane RN; 03/10/2009 4:13 PM SCHEDULING ADMINISTRATOR. Bishop Smith MD - 03/10/2009 1:30 PM CDT Medical Transcriptionist: Bishop Smith Status: Final - Signature Encounter: 10 Mar 2009 Type: Neurosurgery Letter Department of Neurosurgery [address] [facility] [address] [place] [address] Neurosurgery Clinic [facility] First Floor, Clinic [address] [place] [address] March 10, 2009 Lor Grimaldo MD [address] [place] [address] RE: Josie Booker : 1970 AROLDO: 03/10/2009 [...] this kind referral. Sincerely, Bishop Smith M.D. Pbx Inspector Department of Neurosurgery MEDINA:11 Electronically signed by:Bishop Smith M.D. Mar 15 2009 7:38AM SCHEDULING ADMINISTRATOR Author documented in this encounter Plan of Treatment Not on filedocumented as of this encounter Visit Diagnoses Not on filedocumented in this encounter
--- OUTSIDE RECORDS SUMMARY | 2022-05-04 05:29 | XMS_ITS | Encounter Summary ---
:1970 Author Organization [place] Address [address] [place] [address] Care Team Providers Name Role Phone Unavailable Primary Care Provider Unavailable Encounter Details Date Type Department Care Team Description 03/20/2009 Historic Notes INTERFACED REPORT Interface, Transcript onMD Social History Tobacco Use Types Packs/Day Years Used Date Never Assessed Sex Assigned at Date Recorded Not on file documented as of this encounter Progress Notes Interface, Service Provider - 10/20/2010 9:18 PM CDT General Information - How to be Addressed Josie - councilperson #1: Juan - Phone 1: [phone] Health and Illness - Reason for Admission [...] Health and Illness, Review of Systems Interface, Service Provider - 10/20/2010 9:18 PM CDT Progress Note [...]
--- OUTSIDE RECORDS SUMMARY | 2022-05-04 05:29 | XMS_ITS | Encounter Summary ---
:1970 Author Organization [place] Address [address] [place] [address] Care Team Providers Name Role Phone Unavailable Primary Care Provider Unavailable Encounter Details Date Type Department Care Team Description 03/10/2009 Office Visit-[facility] INTERFACE [facility] DEPT Unknown, Provider Social History Tobacco Use Types Packs/Day Years Used Date Never Assessed Sex Assigned at Date Recorded Not on file documented as of this encounter Progress Notes Unknown, Provider - 03/10/2009 1:30 PM CDT Shovel Oiler: Aliyah Keane Status: Final Encounter: 10 Mar [...] By: Aliyah Keane RN; 03/10/2009 2:48 PM ALUMINUM SHEET CUTTER. documented in this encounter Plan of Treatment Not on filedocumented as of this encounter Visit Diagnoses Not on filedocumented in this encounter
--- OUTSIDE RECORDS SUMMARY | 2022-05-04 05:29 | XMS_ITS | Encounter Summary ---
:1970 Author Organization [place] Address [address] [place] [address]. [place] [address] Care Team Providers Name Role Phone [facility] Primary Care Provide r Reason for Visit Rehab Therapy Integrated Services (Routine) - Authorized Specialty Diagnoses / Procedures Referred By Contact Refer red To Contact Diagnoses Oropharyngeal dysphagia [address] [address] Phone: Referral ID Status Reason Start Date Expiration Date Visits V isits Requested Authorized [id number] Authorized 11/23/2021 08/03/2022 365 365 Encounter Details Date Type Department Care Team Description 12/13/2021 Hospital Encounter [facility] Adwoa Mullins MD [place] [facility] [address] [place] [address] Rehabilitation Services Janell Chowdhury, NEWSPAPER PHOTOGRAPHER [facility] [address] [place] [address] Social History Tobacco Use [...] of this encounter Progress Notes Janell Chowdhury, NEWSPAPER PHOTOGRAPHER - 12/13/2021 2:58 PM CDT Video Fluoroscopic Swallow Study (VFSS): 12/13/21 1400 General Information Type Of Visit Initial Start Of Care Date 12/13/21 Referring Physician Richard Mullins MD ([facility]) Orders Evaluate And Treat Medical Diagnosis oropharyngeal [...] health care entities (e.g., most recently with [facility], [place] [facility]) and I do not have access to all her PMHx/notes/testing within my EMR. Per patient, her PMHx includes: C6-7 anterior cervical fusion ~ 9 years ago. She reports she has recently been diagnosed with fibromyalgia, chronic fatigue syndrome and a neural desensitizedsyndrome. During a recent test she reports that an unidentified lesion was found at C2, provider at [place] is ordering an MRI for further assessment [...] Taken left lateral;A/P Physical Location of Procedure [facility], Radiology Dept, Fluoroscopy Suite VFSS Eval: Thin [...] follow up withGI provider. Total Session Time NEWSPAPER PHOTOGRAPHER Eval: VideoFluoroscopic Swallow function Minutes (17097) 16 Total Evaluation Time 16 documented in this encounter Plan of Treatment Scheduled Referrals Name Type Priority Associated Diagnoses Order S chedule Speech Therapy Referral Referral Routine Oropharyngeal dys phagia Ordered: 11/23/2021 documented as of this encounter Visit Diagnoses Not on filedocumented in this encounter Care Teams Collections Representative Relationship Specialty Start Date End Date Clinic, [facility] PCP - General 05/09/[address] [place] [id number] documented as of this encounter
--- OUTSIDE RECORDS SUMMARY | 2022-05-04 05:29 | XMS_ITS | Encounter Summary ---
:1970 Author Organization [place] Address [address] [place] [address] Care Team Providers Name Role Phone Unavailable Primary Care Provider Unavailable Encounter Details Date Type Department Care Team Description 03/20/2009 Operative Report [facility] Richar Dupree (Telecommunications Line Installer) [facility] MD Axel Results [facility] [address] [place], [place] [address] (Wo rk) Social History Tobacco Use Types Packs/Day Years Used Date Never Assessed Sex Assigned at Date Recorded Not on file documented as of this encounter Progress Notes Richar Dupree - 03/21/2009 2:57 PM CDT FINAL SURGEON: Richar Dupree MD PIECE MARKER SMALL ARMS: MARIELLE Stearns PREOPERATIVE DIAGNOSIS: Large herniated disc [...] adequate exposure. Up-down exposure was maintained with [place] pin post device. The discectomy was begun by first cleaning anterior osteophytes away from the annulus with hand instruments, so the disc annulus was incised and piecemeal discectomy down the posterior longitudinal ligament was carried out. Motorized dissection was used in a parallel fashion to remove cartilaginous endplate and improve operative exposure. The posterior longitudinal ligament was identified, thinned and ultimately removed from [id number]. It became quite clear that this lady [...] the screws to be passed into the [place] post-holes. After verification of the locking mechanisms per hotel reservation agent's instructions, final images were stored for documentation sake. The posterior aspect of the esophagus was inspected. It was clean and dry. There was no evidence oftrauma, tear or leakage. Indigo [place] was instilled. There was no evidence of [...] YU Name: RAHAT THOMASON MRN: [id number] Account: [id number] : 1970 Procedure Date: 03/20/2009 Document: [id number] cc: Lor Grimaldo MD documented in this encounter Plan of Treatment Not on filedocumented as of this encounter Visit Diagnoses Not on filedocumented in this encounter
--- OUTSIDE RECORDS SUMMARY | 2022-05-04 05:29 | XMS_ITS | Clinical Summary ---
:1970 Author Organization [facility] Address [address] [place] [address] Care Team Providers Name Role Phone Clinic, [facility] Primary Care Provide r Allergies No known [...] 58.5 kg (129 lb) 06/24/2014 7:51 PM OCCUPATIONAL HEALTH AND SAFETY MANAGER Height 152.4 cm (5') 06/24/2014 7:51 PM OCCUPATIONAL HEALTH AND SAFETY MANAGER Body Mass Index 25.19 06/24/2014 7:51 PM OCCUPATIONAL HEALTH AND SAFETY MANAGER Plan of Treatment Health Maintenance Due Date [...] ss Type Group BCBS [place] [id number] 2017-[employer] [phone] [address] [address] Indemnity t 0 CHETNA CARMICHAEL [id number] Care Teams Wireless Manager Relationship Specialty Start Date End Date Clinic, [facility] PCP - General 05/09/[address] [place] [address]
--- OUTSIDE RECORDS SUMMARY | 2022-05-04 05:29 | XMS_ITS | Encounter Summary ---
:1970 Author Organization [place] Address [address] [place] [address] Care Team Providers Name Role Phone Unavailable Primary Care Provider Unavailable Encounter Details Date Type Department Care Team Description 03/25/2009 Historic Excel Specialist INTERFACED REPORT InterfaceOksana MD Social History Tobacco Use Types Packs/Day Years Used Date Never Assessed Sex Assigned at Date Recorded Not on file documented as of this encounter Plan of Treatment Not on filedocumented as of this encounter Visit Diagnoses Not on filedocumented in this encounter
--- OUTSIDE RECORDS SUMMARY | 2022-05-04 05:29 | XMS_ITS | Encounter Summary ---
:1970 Author Organization [place] Address [address] [place] [address] Care Team Providers Name Role Phone Clinic, [facility] Primary Care Provider [phone] Reason for Visit Reason Comments Abdominal Pain Encounter Details Date Type Department Care Team Description 06/24/2014 Emergency [facility] Gene Reddy MD Acute epigastric pain (Primary Dx); [facility] Emergency Dep t EMERGENCY PHYSICIANS Atypical chest pain [address] [place], [place] [address] [employer] [address] [place] [address] [place] [address] (Wo rk) Social History Tobacco Use Types Packs/Day Years Used Date Never Smoker Alcohol Use Standard Drinks/Week Comments Yes 0 (1 standard drink = 0.6 oz pure alcoho l) Sex Assigned at Date Recorded Not on file documented as of this encounter Last Filed Vital Signs Vital Sign Reading Time Taken Comments Blood Pressure 107/69 06/24/2014 10:15 PM COMMERCIAL LEASE ADMINISTRATOR Pulse 97 06/24/2014 7:51 PM COMMERCIAL LEASE ADMINISTRATOR Temperature 37.1 ??C (98.8 ??F) 06/24/2014 7:51 PM COMMERCIAL LEASE ADMINISTRATOR Respiratory Rate 18 06/24/2014 7:51 PM COMMERCIAL LEASE ADMINISTRATOR Oxygen Saturation 96% 06/24/2014 10:15 PM COMMERCIAL LEASE ADMINISTRATOR Inhaled Oxygen Concentration - - Weight 58.5 kg (129 lb) 06/24/2014 7:51 PM COMMERCIAL LEASE ADMINISTRATOR Height 152.4 cm (5') 06/24/2014 7:51 PM COMMERCIAL LEASE ADMINISTRATOR Body Mass Index 25.19 06/24/2014 7:51 PM COMMERCIAL LEASE ADMINISTRATOR documented in this encounter Discharge Instructions Discharge [...] directed by your doctor today. Before using fufp-occ-jlimipo medications, ask your doctor and make sure [...] contain Tylenol?? (acetaminophen), including Vicodin??, Tylenol #3??, Madison??, Lortab??, and Percocet??. You should not take [...] contain Tylenol?? (acetaminophen), including Vicodin??, Tylenol #3??, Madison??, Lortab??, and Percocet??. You should not take [...] if there is anything that worries you. ERCIAL LEASE ADMINISTRATOR documented in this encounter Medications at Time [...] 06/24/2014 8:35 PM CST Pt refused dilaudid. ERCIAL LEASE ADMINISTRATOR Gene Reddy MD - 06/24/2014 7:56 PM [...] she doubled over. [facility] [place], had a GI cocktail with no relief, [...] Course ECG: @ 2019 Rate 88 bpm. LA interval 150 ms. QRS duration 66 ms. [...] statements to me. Gene Reddy MD 06/24/14 224 ERCIAL LEASE ADMINISTRATOR Aimee Taylor, RN - 06/24/2014 7:54 PM CST Sent over from clinic, epigastric pain started this am subsided and then again worse at home 05/13 Did have U/S Tonight at Dx with gallstone Was told to come over to er and have possible surgery ABC intact ERCIAL LEASE ADMINISTRATOR documented in this encounter Plan of Treatment Not on filedocumented as of this encounter Procedures Procedure Name Priority Date/Time Associated Comments Diagnosis XR CHEST 2 VIEWS STAT 06/24/2014 10:02 Results for this PM COMMERCIAL LEASE ADMINISTRATOR procedure are i n the results section. TROPONIN POCT Routine 06/24/2014 9:38 PM Results for this COMMERCIAL LEASE ADMINISTRATOR procedure are i n the results section. US ABDOMEN LIMITED STAT 06/24/2014 9:14 PM Res ults for this COMMERCIAL LEASE ADMINISTRATOR procedure are i n the results section. CBC WITH PLATELETS & STAT 06/24/2014 8:30 PM R esults for this DIFFERENTIAL COMMERCIAL LEASE ADMINISTRATOR procedure are i n the results section. LIPASE STAT 06/24/2014 8:30 PM Results f or this COMMERCIAL LEASE ADMINISTRATOR procedure are i n the results section. HCG QUALITATIVE STAT 06/24/2014 8:30 PM Result s for this COMMERCIAL LEASE ADMINISTRATOR procedure are i n the results section. COMPREHENSIVE STAT 06/24/2014 8:30 PM Results for this METABOLIC PANEL COMMERCIAL LEASE ADMINISTRATOR procedure ar e in the results section. EKG 12-LEAD, TRACING STAT 06/24/2014 8:19 PM R esults for this ONLY COMMERCIAL LEASE ADMINISTRATOR procedure are i n the results section. documented in this encounter Results Chest XR, PA & LAT (06/24/2014 10:02 PM COMMERCIAL LEASE ADMINISTRATOR) Anatomical Region Laterality Modality Chest Computed Radiography Specimen (Source) Anatomical Location Collection Method / Collectio n Time Received Time / Laterality Volume Impressions 06/24/2014 10:04 PM COMMERCIAL LEASE ADMINISTRATOR IMPRESSION: No active infiltrate. ? REJI CASILLAS MD Narrative 06/24/2014 10:04 PM COMMERCIAL LEASE ADMINISTRATOR XR CHEST 2 VW ?? 06/24/2014 10:02 [...] ORDER PORSHA Troponin POCT (06/24/2014 9:38 PM COMMERCIAL LEASE ADMINISTRATOR) athologist Signature Troponin I 0.00 0.00 - 0.10 POINT OF CARE ug/L TEST, HANDHELD METER Specimen Anatomical Collection Method Collection Time Receive d Time (Source) Location / / Volume Laterality 06/24/2014 9:38 PM 4 COMMERCIAL LEASE ADMINISTRATOR 10:00 PM COMMERCIAL LEASE ADMINISTRATOR Gene Reddy MD LAB - ENTER/EDIT POCT Performing Organization Address City/State/ZIP Code Phon e Number FV POINT OF CARE TEST, HANDHELD METER POINT OF CARE TEST, HANDHELD METER US Abdomen Limited (06/24/2014 9:14 PM COMMERCIAL LEASE ADMINISTRATOR) Anatomical Region Laterality Modality Abdomen/Pelvis Ultrasound Specimen (Source) Anatomical Location Collection Method / Collectio n Time Received Time / Laterality Volume Impressions 06/24/2014 9:25 PM COMMERCIAL LEASE ADMINISTRATOR IMPRESSION: ??Negative, no gallstones identified. REJI CASILLAS MD Narrative 06/24/2014 9:25 PM COMMERCIAL LEASE ADMINISTRATOR US ABDOMEN LIMITED ??06/24/2014 9:14 PM HISTORY: [...] US ORDERABLES HCG QUALitative (06/24/2014 8:30 PM COMMERCIAL LEASE ADMINISTRATOR) [facility] Method Time Signature HCG Qualitative Negative NEG [facility] LAB Specimen Anatomical Collection Method Collection Time Receive d Time (Source) Location / / Volume Laterality Blood specimen 06/24/2014 8:30 PM 014 8:49 (specimen) COMMERCIAL LEASE ADMINISTRATOR PM COMMERCIAL LEASE ADMINISTRATOR Gene Reddy MD LAB - BLOOD ORDERABLES Performing Organization Address [facility]/ZIP [facility] e Number [facility] [address] [place], [place] [address] [facility] Lipase (06/24/2014 8:30 PM COMMERCIAL LEASE ADMINISTRATOR) athologist Signature Lipase 239 73 - 393 [facility] U/L [facility] Comment: Effective 03/02/2014, the reference range for this assay has changed to reflect new instrumentation/methodology. Specimen Anatomical Collection Method Collection Time Receive d Time (Source) Location / / Volume Laterality Blood specimen 06/24/2014 8:30 PM 014 8:49 (specimen) COMMERCIAL LEASE ADMINISTRATOR PM COMMERCIAL LEASE ADMINISTRATOR Gene Reddy MD LAB - BLOOD ORDERABLES Performing Organization Address [facility] e Number [facility] [address] [place], [place] [address] [facility] (ABNORMAL) Comprehensive metabolic panel (06/24/2014 8:30 PM COMMERCIAL LEASE ADMINISTRATOR) athologist Signature Sodium 138 133 - 144 [place] mmol/L [facility] Potassium 3.6 3.4 - 5.3 [place] mmol/L [facility] Chloride 104 94 - 109 [place] mmol/L [facility] Carbon Dioxide 27 20 - 32 [place] mmol/[facility] Anion Gap 7 3 - 14 [place] mmol/L [facility] Glucose 88 70 - 99 [place] mg/dL [facility] Comment: Effective 03/02/2014, the reference range for this assay has changed to reflect new instrumentation/methodology. Urea Nitrogen 21 7 - 30 mg/dL [facility] Comment: Effective 03/02/2014, the reference range for this assay has changed to reflect new instrumentation/methodology. Creatinine 1.02 0.52 - 1.04 mg/dL [facility] GFR Estimate 58 (L) >60 mL/min/1.7m2 [facility] LAB Comment: Non GFR Calc GFR Estimate If Black 71 >60 mL/min/1.7m2 F [facility] LAB Comment: GFR Calc Calcium 8.8 8.5 - 10.1 mg/dL [facility] Comment: Effective 03/02/2014, the reference range for this assay has changed to reflect new instrumentation/methodology. Bilirubin Total 0.5 0.2 - 1.3 mg/dL [facility] Albumin 4.1 3.4 - 5.0 g/dL [facility] Protein Total 7.5 6.8 - 8.8 g/dL [facility] Alkaline Phosphatase 22 (L) 40 - 150 U/L [facility] ALT 25 0 - 50 U/L [facility] AST 21 0 - 45 U/L [facility] Specimen Anatomical Collection Method Collection Time Receive d Time (Source) Location / / Volume Laterality Blood specimen 06/24/2014 8:30 PM 014 8:49 (specimen) COMMERCIAL LEASE ADMINISTRATOR PM COMMERCIAL LEASE ADMINISTRATOR Gene Reddy MD LAB - BLOOD ORDERABLES Performing Organization Address City/State/ZIP Code Phon e Number [facility] [address] [place] [address] [facility] CBC with platelets differential (06/24/2014 8:30 PM COMMERCIAL LEASE ADMINISTRATOR) [facility] Method Time Signature WBC 5.7 4.0 - [facility] 11.0 [facility] 10e9/L [facility] RBC Count 5.03 3.8 - 5.2 [place] 10e12/L [facility] Hemoglobin 14.9 11.7 - [place] 15.7 g/dL [facility] Hematocrit 42.9 35.0 - [place] 47.0 % [facility] MCV 85 78 - 100 [place] fl [facility] MCH 29.6 26.5 - [facility] 33.0 pg [facility] MCHC 34.7 31.5 - [place] 36.5 g/dL [facility] RDW 12.5 10.0 - [place] 15.0 % [facility] Platelet Count 212 150 - 450 [place] 10e9[facility] Diff Method Automated [facility] LAB % Neutrophils 60.6 % [facility] % Lymphocytes 25.1 % [facility] % Monocytes 13.3 % [facility] % Eosinophils 0.5 % [facility] % Basophils 0.5 % [facility] % Immature 0.0 % [place] Granulocytes [facility] Absolute 3.5 1.6 - 8.3 [place] Neutrophil 10e9/[facility] Absolute 1.4 0.8 - 5.3 [place] Lymphocytes [address] LAB Absolute 0.8 0.0 - 1.3 [place] Monocytes [address] [place] [address] LAB Absolute 0.0 0.0 - 0.7 [place] Eosinophils [address] [place] [address] LAB Absolute 0.0 0.0 - 0.2 [place] Basophils [address] [place] [address] LAB Abs Immature 0.0 0 - 0.4 [place] Granulocytes [address] [place] [address] LAB Specimen Anatomical Collection Method Collection Time Receive d Time (Source) Location / / Volume Laterality Blood specimen 06/24/2014 8:30 PM 014 8:49 (specimen) COMMERCIAL LEASE ADMINISTRATOR PM COMMERCIAL LEASE ADMINISTRATOR Gene Reddy MD LAB - BLOOD ORDERABLES Performing Organization Address City/State/ZIP Code Phon e Number [facility] [address] [place], [place] [address] [facility] EKG 12-lead, tracing only (06/24/2014 8:19 PM COMMERCIAL LEASE ADMINISTRATOR) [facility] gist Method Time Signature Interpretation ECG Click View RADIOLOGY Image link RESULTS to view waveform and result Specimen (Source) Anatomical Collection Method Collection Time Re ceived Time Location / / Volume Laterality 06/24/2014 8:19 PM COMMERCIAL LEASE ADMINISTRATOR Gene Reddy MD ECG ORDERABLES Performing Organization [...] injection 4 mg Given 06/24/2014 8:31 PM COMMERCIAL LEASE ADMINISTRATOR 4 mg 4 mg, Intravenous, EVERY 30 MIN PRN, nausea, vomiting, Administer over 2-5 Minutes, Starting on Fri06/24/14 at 2003, For 3 doses, May repeat in 30 minutes as needed, up to 3 doses. ranitidine (ZANTAC) injection 50 mg Given 06/24/2014 8:34 PM COMMERCIAL LEASE ADMINISTRATOR 50 mg 50 mg, Intravenous, ONCE, On Fri06/24/14 at 2004, For 1 dose sodium chloride 0.9 % BOLUS New Bag 06/24/2014 8:37 PM COMMERCIAL LEASE ADMINISTRATOR 1,000 m Ls 1000 mL/hr 1,000 mL Intravenous, 1,000 mL, ONCE, at 1,000 mL/hr, Administer over 1 Hours, On Fri06/24/14 at 2004, For 1 dose documented in this encounter Active and Recently Administered Medications Times are shown in COMMERCIAL LEASE ADMINISTRATOR. Scheduled Medication Order 06/22/2014 06/23/2014 06/24/2014 ranitidine [...] doses. documented in this encounter Care Teams Safety Engineer Pressure Vessels Relationship Specialty Start Date End Date Clinic, [facility] PCP - General 06/24/14 05/08/[address] [place] [address] documented as of this encounter
--- OUTSIDE RECORDS SUMMARY | 2022-05-04 05:29 | XMS_ITS | Encounter Summary ---
:1970 Author Organization [place] Address [address] [place] [address] Care Team Providers Name Role Phone [facility] Primary Care Provide r Encounter [...] on filedocumented in this encounter Care Teams Immigration Consultant Relationship Specialty Start Date End Date [facility] PCP - General 05/09/[address] [place] [address] documented as of this encounter
--- OUTSIDE RECORDS SUMMARY | 2022-05-04 05:29 | XMS_ITS | Encounter Summary ---
:1970 Author Organization [place] Address [address] [place] [address] Care Team Providers Name Role Phone Clinic, [facility] Primary Care Provide r Reason for Visit Reason Comments Shoulder Pain Encounter Details Date Type Department Care Team Description [facility]; [facility] Emergency Dep t [address] [facility] Biceps tendonitis, left; [address] [place], [place] Bursitis [place] [id number] [phone] Social History Tobacco Use Types Packs/Day Years [...] used. Medicines may be prescribed or bought [id number]. They may begiven as pills. Or they [...] New symptoms Date Last Reviewed: 10/12/2015 ?? [phone] [employer]. [address] [place] [address], [place] [id number]. All rights reserved. This information is not [...] wrap or splint wet. ?? You may take??ytla-bip-rgptvef pain medicine to treat pain and inflammation, [...] 48 hours Date Last Reviewed: 06/24/2015 ?? [phone] [employer] [address] [place] [address], [place] [address]. All rights reserved. This information is not [...] an appointment with her orthopedic surgeon at [facility] on June 02. All [...] as needed for pain Heron Mateo 05/09/2018 [facility] EMERGENCY DEPARTMENT Scribe Disclosure: I, Heron Mateo, [...] Rate 6 0 - 20 mm/h 05/09/2018 [facility] 4:33 AM CDT HOSPITAL Specimen Anatomical Collection Method Collection Time Receive d Time (Source) Location / / Volume Laterality Blood specimen 05/09/2018 3:49 AM 018 4:11 (specimen) CDT AM CDT Nanci De La Vega MD LAB - BLOOD ORDERABLES Performing Organization Address City/State/ZIP Code Phon e Number [facility] [address] [place], [place] [address] [facility] [address] [place], [place] [address] [phone] CRP inflammation (05/09/2018 3:49 AM CDT) athologist Signature CRP Inflammation <2.9 0.0 - 8.0 05/09/2018 [place] mg/L 4:23 AM [facility] Specimen Anatomical Collection Method Collection Time Receive d Time (Source) Location / / Volume Laterality Blood specimen 05/09/2018 3:49 AM 018 4:11 (specimen) CDT AM CDT Nanci De La Vega MD LAB - BLOOD ORDERABLES Performing Organization Address City/State/ZIP Code Phon e Number [place] [address] [address] [place], [place] [address] [place] [address] [address] [place], [place] [address] [phone] (ABNORMAL) Basic metabolic panel (05/09/2018 3:49 AM CDT) athologist [facility] Sodium 139 133 - 144 05/09/2018 [place] mmol/L 4:23 AM [facility] Potassium 3.8 3.4 - 5.3 05/09/2018 [place] mmol/L 4:23 AM [facility] Chloride 107 94 - 109 05/09/2018 [facility] mmol/L 4:23 AM [facility] Carbon Dioxide 27 20 - 32 05/09/2018 [place] mmol/L 4:23 AM [facility] Anion Gap 5 3 - 14 05/09/2018 [facility] mmol/L 4:23 AM [facility] Glucose 104 (H) 70 - 99 05/09/2018 [place] mg/dL 4:23 AM [facility] Urea Nitrogen 19 7 - 30 05/09/2018 [facility] mg/dL 4:23 AM [facility] Creatinine 0.97 0.52 - 05/09/2018 [facility] 1.04 mg/dL 4:23 AM [facility] GFR Estimate 61 >60 05/09/2018 [place] mL/min/1.7 4:[address] Comment: Non GFR Calc GFR Estimate If 74 >60 mL/min/1.7m2 05/09/2018 4:23 A M [facility] Comment: GFR Calc Calcium 8.1 (L) 8.5 - 10.1 mg/dL 05/09/2018 4:23 AM [facility] Specimen Anatomical Collection Method Collection Time Receive d Time (Source) Location / / Volume Laterality Blood specimen 05/09/2018 3:49 AM 018 4:11 (specimen) CDT AM CDT Nanci De La Vega MD LAB - BLOOD ORDERABLES Performing Organization Address City/State/ZIP Code Phon e Number [place] [address] [address] [place] [address] [facility] [address] [phone] CBC with platelets differential (05/09/2018 3:49 AM CDT) [facility] Method Time Signature WBC 7.0 4.0 - 05/09/2018 [facility] 11.0 4:13 AM [facility] 10e9/L [facility] RBC Count 4.17 3.8 - 5.2 05/09/2018 [facility] 10e12/L 4:13 AM [facility] Hemoglobin 12.1 11.7 - 05/09/2018 [facility] 15.7 g/dL 4:13 AM [facility] Hematocrit 35.4 35.0 - 05/09/2018 [facility] 47.0 % 4:13 AM [facility] MCV 85 78 - 100 05/09/2018 [facility] fl 4:13 AM [facility] MCH 29.0 26.5 - 05/09/2018 [facility] 33.0 pg 4:13 AM [facility] MCHC 34.2 31.5 - 05/09/2018 [facility] 36.5 g/dL 4:13 AM [facility] RDW 12.5 10.0 - 05/09/2018 [facility] 15.0 % 4:13 AM [facility] Platelet Count 212 150 - 450 05/09/2018 [facility] 10e9/L 4:13 AM [facility] Diff Method Automated 05/09/2018 [facility] Method 4:13 AM [facility] % Neutrophils 74.6 % 05/09/2018 [facility] 4:13 AM [facility] % Lymphocytes 13.2 % 05/09/2018 [facility] 4:13 AM [facility] % Monocytes 10.7 % 05/09/2018 [facility] 4:13 AM [facility] % Eosinophils 0.6 % 05/09/2018 [facility] 4:13 AM [facility] % Basophils 0.6 % 05/09/2018 [facility] 4:13 AM [facility] % Immature 0.3 % 05/09/2018 [facility] Granulocytes 4:13 AM [facility] Nucleated RBCs 0 0 /100 05/09/2018 [facility] 4:13 AM [facility] Absolute 5.2 1.6 - 8.3 05/09/2018 [facility] Neutrophil 10e9/L 4:13 AM [facility] Absolute 0.9 0.8 - 5.3 05/09/2018 [facility] Lymphocytes 10e9/L 4:13 AM [facility] Absolute 0.8 0.0 - 1.3 05/09/2018 [facility] Monocytes 10e9/L 4:13 AM [facility] Absolute 0.0 0.0 - 0.7 05/09/2018 [facility] Eosinophils 10e9/L 4:13 AM [facility] Absolute 0.0 0.0 - 0.2 05/09/2018 [facility] Basophils 10e9/L 4:13 AM [facility] Abs Immature 0.0 0 - 0.4 05/09/2018 [facility] Granulocytes 10e9/L 4:13 AM [facility] Absolute 0.0 05/09/2018 [place] Nucleated RBC 4:13 AM [facility] Specimen Anatomical Collection Method Collection Time Receive d Time (Source) Location / / Volume Laterality Blood specimen 05/09/2018 3:49 AM 018 4:11 (specimen) CDT AM T Nanci De La Vega MD LAB - BLOOD ORDERABLES Performing Organization Address City/State/ZIP Code Phon e Number M [facility] [address] [place] [address] [facility] [address] [phone] XR Shoulder Left G/E 3 Views (05/09/2018 [...] nutes. documented in this encounter Care Teams Loft Worker Relationship Specialty Start Date End Date Clinic, [facility] PCP - General 05/09/[address] [place] [address] documented as of this encounter
--- OUTSIDE RECORDS SUMMARY | 2022-05-04 05:29 | XMS_ITS | Encounter Summary ---
:1970 Author Organization [place] Address [address] [place] [address] Care Team Providers Name Role Phone Unavailable Primary Care Provider Unavailable Encounter Details Date Type Department Care Team Description 03/28/2009 Discharge Summary [facility] Richar Mackay (Machine Pecan Gatherer) [facility] MD Axel Results [facility] [address] [place], [place] [id number] (Wo rk) Social History Tobacco Use Types [...] clinical followup. RICHAR DUPREE MD MT: Name: RAHAT THOMASON MRN: [id number] Account: [id number] : 1970 Admit Date: [id number] Discharge Date: 03/28/2009 Document: [id number] documented in this encounter Plan of Treatment Not on filedocumented as of this encounter Visit Diagnoses Not on filedocumented in this encounter
--- OUTSIDE RECORDS SUMMARY | 2022-05-04 05:29 | XMS_ITS | Encounter Summary ---
:1970 Author Organization [place] Address [address] [place] [address]. [place] [address] Care Team Providers Name Role Phone [facility] Primary Care Provide r Reason for Referral Rehab Therapy Integrated Services (Routine) - Authorized Specialty Diagnoses / Procedures Referred By Contact Refer red To Contact Diagnoses Oropharyngeal dysphagia [address] [place] [address] Phone: Referral ID Status Reason Start Date Expiration Date Visits V isits Requested Authorized [id number] Authorized 11/23/2021 08/03/2022 365 365 Encounter Details Date Type Department Care Team Description 11/23/2021 Transcribe Orders GENERIC EXTERNAL Richard Mullins, Sydnie pharyngeal DATA DEPARTMENT dysphagia (Primary Dx) [place] [facility] [address] [place], [place] [id number] Social History Tobacco Use Types Packs/Day Years [...] phase documented in this encounter Care Teams Icu Registered Nurse Relationship Specialty Start Date End Date [facility] PCP - General 05/09/18 [address] [place] [address] documented as of this encounter
--- OUTSIDE RECORDS SUMMARY | 2022-05-04 05:29 | XMS_ITS | Encounter Summary ---
:1970 Author Organization [facility] Address [address] [place] [address] Care Team Providers Name Role Phone Unavailable Primary Care Provider Unavailable Encounter Details Date Type Department Care Team Description 03/21/2009 Historic Notes INTERFACED REPORT Interface, Transcript on, Social History Tobacco Use Types Packs/Day Years Used Date Never Assessed Sex Assigned at Date Recorded Not on file documented as of this encounter Progress Notes Interface, Electromechanical Assembler - 10/20/2010 9:16 PM CDT Progress Note - :: Status: D: VSS, HR 113, pain 6/10- gave MOrphine- pt is hesitant about taking pain meds, nausea early on during the night- gave 10mg compazine- pt is feeling better, soft collar on -JAMES dressing, independently using BR- voiding, NIYA has minimal serosang. drainage, CMS intact- strong hand diploma pharmacy technician, PIV infusing for now. I/A: discussed plan for the night, administered pain meds and antiematic, performed routine assessments and frequent checks, encouraged pt to express needs and concerns, placed call within reach length, pt seems to be resting for now. P: Will continue to monitor and assess and intervene if necessary. AMANDA Valenzuela (BRIAN)[Signed 06:47] Authored: Progress Note Interface, Electromechanical Assembler - 10/20/2010 9:16 PM CDT General Information [...] Bed Mobility: Rolling/Turning - Level of independent [place]: Bed Mobility: Scooting/Bridging - Level of independent [place]: Bed Mobility: Sit to Supine - Level of independent [place]: Bed Mobility: Supine to Sit - Level of independent [place]: Transfer: Sit to Stand - Level of independent [place]: Transfer: Stand to Sit - Level of independent [place]: Gait Skills - Level of modified independent [place]: - Gait Distance: 150 feet Gait Analysis [...] Sensation, Proprioception/Coordination, Treatment Plan, Clinical Impression Interface, Electromechanical Assembler - 10/20/2010 9:15 PM CDT Discharge Summary - Reason for Discharge All goals and outcomes met, no further needs identified, Discharge from facility, to home - Progress toward Goals met achieving short term goals/longterm goals - Comments PT: Pt will meet [...] Pressley (PT)[Signed 13:30] Authored: Discharge Summary Interface, Electromechanical Assembler - 10/20/2010 9:14 PM CDT Progress Note [...]
--- OUTSIDE RECORDS SUMMARY | 2022-05-04 05:29 | XMS_ITS ---
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 Problem Chronic fatigue R53.82 Active 5270 2002 ALLERGIES No Known Allergies ENCOUNTERS Encounter Location Date Diagnosis [facility] [place] and female [place], [place] climacteric sta latonya N95.1 [address] and Acute axilla ry lymphadenitis L0 4.2 [facility] [address] 15 Sep, 2021 Encounter f or cervical Pap [place], [place] smear with pelvi c exam [address] Z01.419 ; Screen ing for hypothyroidism Z 13.29 ; Climacteric synd gurjit N95.1 ; Weight gain R6 3.5 and Pain in other criselda int M25.[address] [facility] [address] Sep, [place] and female [place], [place] climacteric sta latonya N95.1 ; [address] Chronic fatigue R53.82 ; Pain in other criselda int M25.59 ; Lymphadenitis I88.9 and Weight gain R63. 5 IMMUNIZATIONS No Known Immunizations SOCIAL HISTORY Qualifiers Date Never Smoker REASON FOR REFERRAL FUNCTIONAL STATUS PLAN OF CARE Activity Details Future Appointment Provider Name:Nabeel Colby, 2022-05-24 10:00:00 AM, [address] [place], [address], VITAL SIGNS Height 60 in 2021-09-17 Weight [...] 0-200 ABSOLUTE EOSINOPHILS 103 15-500 ABSOLUTE LYMPHOCYTES [phone] ABSOLUTE MONOCYTES 697 200-950 ABSOLUTE NEUTROPHILS [phone] BASOPHILS 0.6 EOSINOPHILS 1.9 HEMATOCRIT 40.8 35.0-45.0 [...] 1.1 0.2-5.0 REASON FOR VISIT Insurance Providers [facility] Member Patient Patient Patient Patient Patient Subscriber Subscriber Subscriber Group Insurance Plan Plan Plan Plan ID Relationship Address Phone Name Date of ID Name Date of No Type Insurance Insurance Insurance Coverage to Subscriber Address Phone Name Dates BCBS [address] BCBS self [place] [id number] [place] [id number] 1 1 [facility] [id number] MEDICAL (GENERAL) HISTORY Type Description Date Medical History Arthritits Surgical History Tonsils/adenoids- childhood Surgical History tubes as child Surgical History shoulder surgery 2018 Surgical History carpal tunnel surgery 95 and 96 Surgical History low back fusion Surgical History neck fusion 2008 Surgical History breast implants 2011 breast reduction 20 08 Surgical History hernia repair 2019
--- OUTSIDE RECORDS SUMMARY | 2022-05-04 05:29 | XMS_ITS | Clinical Summary ---
:1970 Author Organization [facility] [place] [address] Care Team Providers Name Role Phone Nonstaff, [...] Type Group BLUE CROSS BLUE CROSS OF [id number] 2017-Present [address] [place] [address] Care Teams Regulatory Compliance Specialist Relationship Specialty Start Date End Date Nonstaff, Doctor PCP - General 06/14/11 NON STAFF DOCTOR
--- OUTSIDE RECORDS SUMMARY | 2022-05-04 05:29 | XMS_ITS | Encounter Summary ---
:1970 Author Organization [facility] Address [address] [place] [address] Care Team Providers Name Role Phone Unavailable Primary Care Provider Unavailable Encounter Details Date Type Department Care Team Description 03/20/2009 Discharge Summary [facility] Richar Mackay (Summer Associate) [facility] MD Axel Results [facility] [address] [place], [place] [address] (Wo rk) Social History Tobacco Use Types [...] MT: Name: RAHAT THOMASON MRN: [id number] Account: [id number] : 1970 Admit Date: [id number] Discharge Date: 03/21/2009 Document: [id number] documented in this encounter Plan of Treatment Not on filedocumented as of this encounter Visit Diagnoses Not on filedocumented in this encounter
--- OUTSIDE RECORDS SUMMARY | 2022-05-04 05:29 | XMS_ITS | Encounter Summary ---
:1970 Author Organization [facility] Address [address] [place] [address]. [place] [address] Care Team Providers Name Role Phone [facility] Primary Care Provide r Reason for Referral Diagnostic Imaging XR (Routine) - Closed Specialty Diagnoses / Procedures Referred By Contact Refer red To Contact Diagnoses Oropharyngeal dysphagia Richard Mullins MD Procedures XR Video Swallow with BRACELET MAKER NOVELTY or OT [facility] [address] [place] [address] Referral ID Status Reason Start Date Expiration Date Visits Requ ested Visits Authorized [id number] Closed 11/23/2021 11/23/2022 1 1 Reason for Visit Diagnostic Imaging XR (Routine) - Closed Specialty Diagnoses / Procedures Referred By Contact Refer red To Contact Diagnoses Oropharyngeal dysphagia Richard Mullins MD Procedures XR Video Swallow with BRACELET MAKER NOVELTY or OT [facility] [address] [place] [address] Referral ID Status Reason Start Date Expiration Date Visits Requ ested Visits Authorized [id number] Closed 11/23/2021 11/23/2022 1 1 Encounter Details Date Type Department Care Team Description 12/13/2021 Hospital Encounter [facility] Richard Mullins O ropharyngeal [facility] MD dysphagia [address] [place] [address] [phone] [address] [place] [address] Social History Tobacco Use Types Packs/Day Years [...] PM Oropharyngeal Resu lts for this WITH BRACELET MAKER NOVELTY OR OT CDT dysphagia procedure are in the results section. documented in this encounter Results XR Video Swallow with BRACELET MAKER NOVELTY or OT (12/13/2021 2:18 PM CDT) Anatomical [...] 12/13/2021 4:18 PM CDT VIDEO SWALLOW WITH BRACELET MAKER NOVELTY OR OT ?? 12/13/2021 2:18 PM HISTORY: [...] different from the original. VIDEO SWALLOW WITH BRACELET MAKER NOVELTY OR OT 12/13/2021 2 :18 PM HISTORY: [...] dose documented in this encounter Care Teams Kitchen Clerk Relationship Specialty Start Date End Date Clinic, [facility] PCP - General 05/09/[address] [place] [address] documented as of this encounter
--- OUTSIDE RECORDS SUMMARY | 2022-05-04 05:30 | XMS_ITS | Encounter Summary ---
:1970 Author Organization [facility] Address [address], [place] [address] Care Team Providers Name Role Phone Britney Jarrett MD Primary Care Provider Reason for Visit Procedure/Equipment (Routine) - Incomplete Specialty Diagnoses / Procedures Referred By Contact Refer red To Contact Procedures Provider, Foreign Images Foreign Image(S) XR [address] [facility] [place] [address] Referral ID Status Reason Start Date Expiration Date Visits V isits Requested Authorized [id number] Incomplete 05/26/2018 08/25/2019 1 1 Encounter Details Date Type Department Care Team Description 05/14/2018 Imaging Radiology PACS Provider, Foreign Images [address] [facility] [address] [place] [address] [place] [address] Social History Tobacco Use Types Packs/Day Years [...] on filedocumented in this encounter Care Teams Media/Instructional Designer Relationship Specialty Start Date End Date Britney Jarrett MD PCP - General 04/04/161999 [place] [address] documented as of this encounter
--- OUTSIDE RECORDS SUMMARY | 2022-05-04 05:30 | XMS_ITS | Encounter Summary ---
:1970 Author Organization [facility] Address [address] [place] [address] Care Team Providers Name Role Phone Britney Jarrett MD Primary Care Provider Reason for Referral Consult/Transfer Care (Routine) - Closed Specialty Diagnoses / Procedures Referred By Contact Refer red To Contact Diagnoses Pes planus of both feet Cristal Calero MD [address] [place] [address] [address] [place] [address] Referral ID Status Reason Start Date Expiration Date Visits Requ ested Visits Authorized [id number] Closed 03/27/2020 06/26/2021 1 1 Scheduling Instructions Your provider has recommended an appoint ment with [facility]. You may call [phone] t o schedule your appointment. If you [...] of right ankle Cristal Calero MD [address] [facility] [address] [place] [address] Referral ID Status Reason Start Date Expiration Date Visits Requ ested Visits Authorized [id number] Closed 03/27/2020 05/26/2020 1 1 Scheduling Instructions [...] Procedures XR Ankle Rt 3 Views [address] [facility] [address] [place] [address] Referral ID Status Reason Start Date Expiration Date Visits V isits Requested Authorized [id number] Incomplete 03/27/2020 06/26/2021 1 1 Procedure/Equipment (Routine) - Incomplete Specialty Diagnoses / Procedures Referred By Contact Refer red To Contact Diagnoses Chronic pain of right knee Cristal Calero MD Procedures XR Knee Lt 1-2 Views Comparison [address] [facility] [address] [place] [address] Referral ID Status Reason Start Date Expiration Date Visits V isits Requested Authorized [id number] Incomplete 03/27/2020 06/26/2021 1 1 Procedure/Equipment (Routine) - Incomplete Specialty Diagnoses / Procedures Referred By Contact Refer red To Contact Diagnoses Chronic pain of right knee Cristal Calero MD Procedures XR Knee Rt 3 Views [address] [facility] [address] [place] [address] Referral ID Status Reason Start Date Expiration Date Visits V isits Requested Authorized [id number] Incomplete 03/27/2020 06/26/2021 1 1 Reason for Visit Reason Comments Knee Pain or Injury ANKLE PAIN Encounter Details Date Type Department Care Team Description 03/27/2020 Office Visit Cristal Dao pain of right knee (Primary Dx); TARUN Sood MD Arthralgia of right ankle; [address] [facility] [facility] Pes planus of both feet; [place], [place] Weakness; [address] Chondromalacia of right patella; [phone] Acquired hallux valgus of right foot; (Work) [...] Avoid barefoot walking, consider Hoka running shoes Spine Surgeon consult: custom orthotics Straussberg sock at night Towel stretch in the morning Follow up as needed Consult with primary care provider for lumbar xrays documented in this encounter Progress Notes Cristal Calero MD - 03/27/2020 11:40 AM CDT Josie Booker [id number] 1970 [facility] Consultation 03/27/2020 Chief Complaint: Right Knee and Right Ankle Pain History of Present Illness: Josie Booker is a 49 y.o. female with a complicated past medical history including 2 lumbar fusions -- L5-S1 in 1985 and L3-4 in August 2019 at [facility]. Neurosurgeon is requesting x-rays of lumbar spine [...] due to pain. Was evaluated by a Autocad Electrical Designer at [facility] and diagnosed with plantar fasciitis. Has treated both with PT at [facility], day care teacher for ankle adjustments, shock wave therapy, foot [...] would be best served by seeing a technical service specialist or certainly her spine surgeon. Given her primary providers is within the [facility] system, she will obtain lumbar x-rays there. [...] Consider Hoka running shoes 5. Consult with printing machine operator for custom orthotics 6. Continue with activities [...] 40 minutes Referring Provider: PATIENT SELF REFERRAL, [place] [address] Primary Care Provider: [address] [place] [address] Scribe Disclosure: Scribed for Cristal Calero MD by Afia Batres Finished Cigar Maker. I, Cristal Calero MD, have personally reviewed and agree with the information entered by the scribe. documented in this encounter Plan of Treatment Scheduled Referrals Name Type Priority Associated Diagnoses Order S chedule Physical Therapy Referral Routine Chronic pain of right Or dered: 03/27/2020 knee Arthralgia of right ankle YARD SPOTTER CONSULT (AMB) Referral Routine Pes planus of [...] foot documented in this encounter Care Teams Law Professor Relationship Specialty Start Date End Date Britney Jarrett MD PCP - General 04/04/161999 [place] [address] documented as of this encounter
--- OUTSIDE RECORDS SUMMARY | 2022-05-04 05:30 | XMS_ITS | Encounter Summary ---
:1970 Author Organization [facility] Address [address] [place] [address] Care Team Providers Name Role Phone Britney Jarrett MD Primary Care Provider Reason for Visit Procedure/Equipment (Routine) - Incomplete Specialty Diagnoses / Procedures Referred By Contact Refer red To Contact Diagnoses Chronic pain of right knee Cristal Calero MD Procedures XR Knee Lt 1-2 Views Comparison [address] [facility] [address] [place] [address] Referral ID Status Reason Start Date Expiration Date Visits V isits Requested Authorized [id number] Incomplete 03/27/2020 06/26/2021 1 1 Encounter Details Date Type Department Care Team Description 03/27/2020 Ancillary [facility] Cristal Calero Chronic pain of Procedure [address] [facility] [place] [address] [phone] Social History Tobacco Use Types Packs/Day Years [...] knee documented in this encounter Care Teams Adoption Agent Relationship Specialty Start Date End Date Britney Jarrett MD PCP - General 04/04/16[address] [place] [address] documented as of this encounter
--- OUTSIDE RECORDS SUMMARY | 2022-05-04 05:30 | XMS_ITS | Encounter Summary ---
:1970 Author Organization [facility] Address [address] [address] Care Team Providers Name Role Phone Britney Jarrett MD Primary Care Provider Reason for Visit Reason Comments Post Visit Follow Up Phone Call Encounter Details Date Type Department Care Team Description 10/08/2018 Telephone [facility] Renetta Domingo, Post Visit Follow Up [address] [facility] RN Phone Call [place], [place] [address] Social History Tobacco Use Types [...] on filedocumented in this encounter Care Teams Hyperbaric Welder Diver Relationship Specialty Start Date End Date Britney Jarrett MD PCP - General 04/04/161999 [place] [address] documented as of this encounter
--- OUTSIDE RECORDS SUMMARY | 2022-05-04 05:30 | XMS_ITS | Encounter Summary ---
:1970 Author Organization [facility] Address [address], [place] [address] Care Team Providers Name Role Phone Britney [...] documented as of this encounter Care Teams Design Engineer Products Relationship Specialty Start Date End Date Britney Jarrett MD PCP - General 04/04/16[address] [place] [address] documented as of this encounter
--- OUTSIDE RECORDS SUMMARY | 2022-05-04 05:30 | XMS_ITS | Encounter Summary ---
:1970 Author Organization [facility] Address [address], [place] [address] Care Team Providers Name Role Phone Britney Jarrett MD Primary Care Provider Reason for Visit Reason Comments Post Visit Follow Up Phone Call Encounter Details Date Type Department Care Team Description 03/23/2019 Telephone [facility] Cary Lyons, Post Visit Follow Up [address] [facility] RN Phone Call [place], [place] [address] Social History Tobacco Use Types [...] on filedocumented in this encounter Care Teams Electrician Research Relationship Specialty Start Date End Date Britney Jarrett MD PCP - General 04/04/16[address] [place] [address] documented as of this encounter
--- OUTSIDE RECORDS SUMMARY | 2022-05-04 05:30 | XMS_ITS | Encounter Summary ---
:1970 [facility] Address [address], [place] [address] Care Team Providers Name Role Phone Britney Jarrett MD Primary Care Provider Reason for Visit Reason Onset Date Comments Pharyngitis way cough occas chest heaviness no chest pain sinus juan facial pressure no fever fa tigue not sleeping well x5d Video Visit 03/08/2020 Encounter Details Date Type Department Care Team Description 03/08/2020 Telemedicine [place] [address] Asaf Diop J, Pharyngi tis, unspecified etiology (Primary Dx); Family Medicine PA-C Chest pressure; [address] [address] [facility] Fatigue, unspecified type; [place], [place] Headache, uns pecified headache type; [address] Suspected COVID-19 virus infection [phone] Social History Tobacco Use Types Packs/Day Years [...] A, Molecular Detection (03/08/2020 10:58 AM CDT) [facility] A Strep Not Detected Not Detected 03/08/2020 [place] 5:09 PM CDT LAB Specimen Anatomical Collection Method Collection Time Receive d Time (Source) Location / / Volume Laterality Swab (Source THROAT SWAB / Non-blood 03/08/2020 10:58 03/08/2020 2:37 Required) Unknown Collection / AM CDT PM CDT Unknown Asaf Diop PA-C LAB_1 Performing Organization Address City/State/ZIP Code Phon e Number [place] [facility] [address] [place] [address] [phone] 2018 Novel Coronavirus (COVID-19) (03/08/2020 10:58 AM CDT) [facility] [employer] Time Signature SARS Cov-2 Not Provided 03/11/2020 [facility] Source 12:28 AM CDT LABORATORIES Comment: Specimen source was not provided. ??Plea se refer to the [facility] Test Directory for validated specimen source information: [email or web address]/test ing. ??Interpret results with caution. SARS-CoV-2 by PCR Not Detected 03/11/2020 12:28 AM CDT [facility] Comment: INTERPRETIVE INFORMATION: SARS-CoV-2 ([place] VID-19) [...] complia nce with this authorization, please visit [email or web address]/infectious-disea se/coronavirus for more information and to access the applicable information sheets. If the result is Not Detected, this does not rule out the presence of PCR inhibitors in the patient specime n or assay specific nucleic acid in concentrations below the level of detection by the assay. Performed by [facility], [address] [place] [address] www.[facility], Evangelist Mcfadden MD, Lab. Director Specimen Anatomical Collection Method Collection Time Receive d Time (Source) Location / / Volume Laterality Swab (Source Non-blood 03/08/2020 10:58 03/08/2020 8:25 Required) Collection / AM CDT PM CDT Unknown Asaf Diop PA-C LAB_1 Performing Organization Address City/State/ZIP Code Phon e Number [facility] [address] [place], [place] [address] documented in this encounter Visit Diagnoses Diagnosis Pharyngitis, unspecified etiology - Prim christine Chest pressure Other chest pain Fatigue, unspecified type Headache, unspecified headache type Suspected COVID-19 virus infection documented in this encounter Care Teams Enrobing Machine Operator Relationship Specialty Start Date End Date Britney Jarrett MD PCP - General 04/04/161999 [place] [address] documented as of this encounter
--- OUTSIDE RECORDS SUMMARY | 2022-05-04 05:30 | XMS_ITS | Encounter Summary ---
:1970 Author Organization [facility] Address [address], [place] [address] Care Team Providers Name Role Phone Britney Jarrett MD Primary Care Provider Reason for Referral Procedure/Equipment (Routine) - Incomplete Specialty Diagnoses / Procedures Referred By Contact Refer red To Contact Diagnoses Left lumbar radiculitis Doni Conway MD Procedures FL C Arm 20 [facility] [address] [place] [address] 1 Referral ID Status Reason Start Date Expiration Date Visits V isits Requested Authorized [id number] Incomplete 03/02/2019 05/31/2020 1 1 Reason for Visit Reason Comments Orders Needed injection Encounter Details Date Type Department Care Team Description 03/02/2019 Telephone [facility] Doni Conway MD Orders Needed CENTER [address] [place] [address] (injection) [address] [place], [place] [address] [phone] (Wo rk) Social History Tobacco Use Types [...] unspecified documented in this encounter Care Teams Electronic Data Processing Auditor Relationship Specialty Start Date End Date Britney Jarrtet MD PCP - General 04/04/161999 [place] [address] documented as of this encounter
--- OUTSIDE RECORDS SUMMARY | 2022-05-04 05:30 | XMS_ITS | Clinical Summary ---
:1970 Author Organization [facility] Address [address] [place] [address] Care Team Providers Name Role Phone Britney [...] 36.8 ??C (98.2 ??F) 07/09/2020 10:24 AM ADZING AND BORING MACHINE FEEDER Respiratory Rate 18 03/22/2019 9:27 AM CDT [...] this topic Medical Devices Implanted Type Area Plastics Supervisor Device Shelf Model / Identifier Expiration Serial / Date Lot Scr Biotendesis Swivelock - [id number] DEVICE Right: [employer] 05/03/2019 AR- [id number] / Implanted: Qty: 1 on 10/02/2017 by Terrell Mccarthy MD at [facility] SHOULDER 0 / [id number] Insurance Payer Benefit Plan Subscriber ID Effective Phone Address Typ e / Group Dates [place]OY[place] [id number] 2013-Pre [phone] [address] Workers Comp MUTUAL MUTUAL sent [address] [place] [address] [place] [id number] 2019-Pres [address] ent [id number] [place] [address] Josie Booker Personal/Family Self 1970 [id number]) [place] [phone] [employer] TREVI[employer] (Work) [address] Josie Bokoer Personal/Family Self 1970 [phone] [address] Josie Booker Workers Comp Self 1970 [id number] ([place] [address] Josie Booker Workers Comp Self 1970 [id number] ([place] [address] Advance Directives Latest Code Status on File Code Status Date Activated Date Inactivated Comments 03/07/2005 4:09 PM 03/07/2005 4:09 PM Care Teams Occupational Health Coordinator Relationship Specialty Start Date End Date Britney Jarrett MD PCP - General 04/04/[address] [place] [address]
--- OUTSIDE RECORDS SUMMARY | 2022-05-04 05:30 | XMS_ITS | Encounter Summary ---
:1970 Author Organization [employer] Address [address] [place] [address] Care Team Providers Name Role Phone Britney Jarrett MD Primary Care Provider Reason for Referral (Routine) - Closed Specialty Diagnoses / Procedures Referred By Contact Refer red To Contact Diagnoses Calcific tendinitis of left shoulder Garrett Chairez MD Procedures Triamcinolone Acet Inj Nos: (per 10 mg) [address] [facility] [place], [place] [address] Referral ID Status Reason Start Date Expiration Date Visits Requ ested Visits Authorized [id number] Closed 07/10/2020 10/09/2021 1 1 IONS CLERK Reason for Visit Reason Comments SHOULDER PAIN recheck left calficic tendin its Encounter Details Date Type Department Care Team Description 07/09/2020 Office Visit [facility] Garrett Chairez, Calcif ic tendinitis Urgent Care MD of left shoulder [address] [facility] (Primary Dx) [place] [address] [place], [place] [phone] (Wo rk) Social History Tobacco Use Types [...] 36.8 ??C (98.2 ??F) 07/09/2020 10:24 AM SESSIONS CLERK Respiratory Rate - - Oxygen Saturation - - Inhaled Oxygen Concentration - - Weight - - Height - - Body Mass Index - - documented in this encounter Patient Instructions Patient InstructionsArt Woo, ATC - 07/09/2020 10:[address] Garrett Chairez MD [facility], [place] [facility] Nurse Line: [phone] Please contact Orthopedic Urgent Care line for all requests and questions. Medication Requests: Prescriptions are not filled on Weekends or on Weekdays after 3:00PM For all medication refills: Request a refill using [employer] or contact your Pharmacy To schedule appointments: [phone] Paperwork Requests: FMLA or disability paperwork can be faxed to: [phone] Medical records: [phone] (option 4) [facility] Worker's Compensation Services E-mail Address: [email or web address] Diagnosis: Left shoulder calcific tendonitis and biceps [...] injection or develop a fever, please call [phone] You've just had a steroid (cortisone) injection: [...] limit the number of steroid injections administered. IONS CLERK documented in this encounter Progress Notes Garrett Chairez MD - 07/09/2020 10:20 AM CST Josie Booker [id number] 1970 [facility] Follow-Up 07/09/2020 History of [...] (b) the recordis accurate. Garrett Chairez MD IONS CLERK documented in this encounter Plan of Treatment Not on filedocumented as of this encounter Visit Diagnoses Diagnosis Calcific tendinitis of left shoulder - P rimary Calcifying tendinitis of shoulder documented in this encounter Care Teams Customer Support Representative Relationship Specialty Start Date End Date Britney Jarrett MD PCP - General 04/04/161999 [place] [address] documented as of this encounter
--- OUTSIDE RECORDS SUMMARY | 2022-05-04 05:30 | XMS_ITS | Encounter Summary ---
:1970 Author Organization [facility] Address [address] [place] [address] Care Team Providers Name Role Phone Britney Jarrett MD Primary Care Provider Reason for Referral Procedure/Equipment (Routine) - Incomplete Specialty Diagnoses / Procedures Referred By Contact Refer red To Contact Diagnoses Left lumbar radiculitis Doni Conway MD Procedures FL C Arm 20 Pain Management [address] [facility] [place], [place] [address] Referral ID Status Reason Start Date Expiration Date Visits V isits Requested Authorized [id number] Incomplete 10/03/2018 01/02/2020 1 1 CEMENT AND PAINT MAKER HELPER Reason for Visit Reason Comments Follow-up lumbar MRI results Encounter Details Date Type Department Care Team Description 10/03/2018 Office Visit [facility] Doni Conway MD Left lumbar radiculitis (Primary Dx); Urgent Care [address] [place] [address] History of lumbar fusion [address] [place], [place] [phone] (Wo rk) Social History Tobacco Use Types [...] for all medical requests and questions at [phone] Reading Tutor: Please call Jess Webb for all administrative questions at MRI Scheduling: To schedule an MRI at [facility] please call [phone] Phone lines are answered 8AM to 5PM Friday - Friday. Workers??? Compensation: Please contact our department for any Work Comp concerns at Email: [email or web address] Agile discharge CEMENT AND PAINT MAKER HELPER documented in this encounter Progress Notes Doni Conway MD - 10/03/2018 2:30 PM CST Josie Booker [id number] 1970 [facility] [place] [facility] Follow-Up 10/03/2018 History of Present Illness: Josie Booker is a 48 y.o. female who presents for follow-up regarding low back pain. I last evaluated the patient on 09/21/2018 at which time she reported intermittent low back pain Exacerbated by sitting and standing. She had been using Lyrica and care mgr as treatment. The patient noted new left [...] Arm 20 Pain Management (10/07/2018 3:24 PM ROOF CEMENT AND PAINT MAKER HELPER) Anatomical Region Laterality Modality Radiographic Imaging Specimen (Source) Anatomical Location Collection Method / Collectio n Time Received Time / Laterality Volume Narrative 10/07/2018 3:47 PM ROOF CEMENT AND PAINT MAKER HELPER Images obtained during surgical procedure. Doni Conway MD RAD [place] documented in this encounter Visit Diagnoses Diagnosis Left lumbar radiculitis - Primary Thoracic or lumbosacral neuritis or radi culitis, unspecified History of lumbar fusion Left lumbar radiculitis Thoracic or lumbosacral neuritis or radi culitis, unspecified documented in this encounter Care Teams Cordage Sales Representative Relationship Specialty Start Date End Date Britney Jarrett MD PCP - General 04/04/161999 [place] [address] documented as of this encounter
--- OUTSIDE RECORDS SUMMARY | 2022-05-04 05:30 | XMS_ITS | Encounter Summary ---
:1970 Author Organization [facility] Address [address] [place] [address] Care Team Providers Name Role Phone Britney Jarrett MD Primary Care Provider Reason for Visit Procedure/Equipment (Routine) - Incomplete Specialty Diagnoses / Procedures Referred By Contact Refer red To Contact Diagnoses Chronic left shoulder pain Terrell Mccarthy MD Procedures US Injection Lt Tendon or Ligament [address] [facility] [address] [place] [address] Referral ID Status Reason Start Date Expiration Date Visits V isits Requested Authorized [id number] Incomplete 12/28/2019 03/28/2021 1 1 Encounter Details Date Type Department Care Team Description 02/23/2020 Ancillary [facility] Terrell Mccarthy Chronic left Procedure [address] [facility] [place] [address] [phone] Social History Tobacco Use Types Packs/Day Years [...] procedure pain score 3/10. Terrell Mccarthy MD [facility] documented in this encounter Visit Diagnoses Diagnosis [...] muscle. documented in this encounter Care Teams Metal Alloy Scientist Relationship Specialty Start Date End Date Britney Jarrett MD PCP - General 04/04/161999 [place] [address] documented as of this encounter
--- OUTSIDE RECORDS SUMMARY | 2022-05-04 05:30 | XMS_ITS | Encounter Summary ---
:1970 Author Organization [employer] Address [address] [place] [address] Care Team Providers Name Role Phone Britney Jarrett MD Primary Care Provider Reason for Referral Procedure/Equipment (Routine) - Incomplete Specialty Diagnoses / Procedures Referred By Contact Refer red To Contact Diagnoses Chronic left shoulder pain Terrell Mccarthy MD Procedures US Injection Lt Tendon or Ligament [address] [facility] [address] [place] [address] Referral ID Status Reason Start Date Expiration Date Visits V isits Requested Authorized [id number] Incomplete 12/28/2019 03/28/2021 1 1 Procedure/Equipment (Routine) - Incomplete Specialty Diagnoses / Procedures Referred By Contact Refer red To Contact Diagnoses Chronic left shoulder pain Terrell Mccarthy MD Procedures XR Shoulder Lt 2+ Views [address] [place] [address] [place], [place] [address] Referral ID Status Reason Start Date Expiration Date Visits V isits Requested Authorized [id number] Incomplete 12/28/2019 03/28/2021 1 1 Reason for Visit Reason Comments Follow-up Lt shoulder Encounter Details Date Type Department Care Team Description 12/28/2019 Office Visit [facility] Terrell Mccarthy, Facilities Coordinator [facility] shoulder CENTER MD pain (Primary Dx) [address] [facility] [address] [place] [address] [place] [address] [place] [phone] (Wo rk) Social History Tobacco Use Types [...] 12:00 PM CDT NAME: RAHAT THOMASON MR#: [id number] CSN: [id number] AUTHENTICATING CLINICIAN: Terrell Mccarthy MD CONFIRM #: [id number] LOC: 711 CLINIC PROGRESS NOTE DATE OF [...] infusions that are being managed at a [facility]. Additionally, she has lumbar fusions. Additionally, they are being managed down at [facility] and is doing well. She states that [...] is demonstrated with a positive speed's, positive Ingalls's that is improved with supination. She has [...] the rotator cuff near the insertion, likely education courses sales representative of calcific tendinosis as well as [...] Zeus Blanchard MD JPB:WILDER C: R:12/28/19 22:36 CONFIRM#:[id number] documented in this encounter Plan of Treatment [...] rotator cuff near the insertion, lik herbert education courses sales representative of calcific tendinosis as well as [...] region documented in this encounter Care Teams Aircraft Maintenance Supervisor Relationship Specialty Start Date End Date Britney Jarrett MD PCP - General 04/04/161999 [place] [address] documented as of this encounter
--- OUTSIDE RECORDS SUMMARY | 2022-05-04 05:30 | XMS_ITS | Encounter Summary ---
:1970 Author Organization [employer] Address [address], [place] [address] Care Team Providers Name Role Phone Britney Jarrett MD Primary Care Provider Reason for Visit Reason Comments Back Pain low Encounter Details Date Type Department Care Team Description 09/21/2018 Office Visit [facility] Doni Conway MD Chronic bilateral low back pain without sciatica (Primary Dx); Urgent Care [address] [facility] History of lumbar fusion [address] [place], [place] [address] [phone] (Wo rk) Social History Tobacco Use Types [...] 36.8 ??C (98.2 ??F) 09/21/2018 3:10 PM PUBLIC RELATIONS SALES MARKETING Respiratory Rate - - Oxygen Saturation - [...] for all medical requests and questions at [phone] First Line Supervisor: Please call Jess Webb for all administrative questions at MRI Scheduling: To schedule an MRI at [facility] please call [phone] Phone lines are answered 8AM to 5PM Friday - Friday. Workers??? Compensation: Please contact our department for any Work Comp concerns at Email: [email or web address] MRI to be scheduled at [facility] in [place] Follow up for results and recommendations IC RELATIONS SALES MARKETING documented in this encounter Progress Notes Doni Conway MD - 09/21/2018 3:00 PM CST Josie Booker [id number] 1970 [facility] Orthopaedic Center Acute Injury Clinic 09/21/2018 Chief [...] MRI, ordered as an open MRI at [facility]. She will continue with her other regular [...] (b) the recordis accurate. Doni Conway MD IC RELATIONS SALES MARKETING documented in this encounter Plan of Treatment Not on filedocumented as of this encounter Visit Diagnoses Diagnosis Chronic bilateral low back pain without sciatica - Primary History of lumbar fusion documented in this encounter Care Teams Tool Builder Relationship Specialty Start Date End Date Britney Jarrett MD PCP - General 04/04/161999 [place] [address] documented as of this encounter
--- OUTSIDE RECORDS SUMMARY | 2022-05-04 05:30 | XMS_ITS | Encounter Summary ---
:1970 Author Organization [facility] Address [address], [place] [address] Care Team Providers Name Role Phone Britney Jarrett MD Primary Care Provider Reason for Visit Procedure/Equipment (Routine) - Incomplete Specialty Diagnoses / Procedures Referred By Contact Refer red To Contact Procedures Provider, Foreign Images Foreign Image(S) MR Shoulder [address] [place] [address] Referral ID Status Reason Start Date Expiration Date Visits V isits Requested Authorized [id number] Incomplete 05/26/2018 08/25/2019 1 1 Encounter Details Date Type Department Care Team Description 05/14/2018 Imaging Radiology PACS Provider, Foreign Images [address] [facility] [address] [place] [address] [place] [address] Social History Tobacco Use Types Packs/Day Years [...] on filedocumented in this encounter Care Teams Spot Remover Relationship Specialty Start Date End Date Britney Jarrett MD PCP - General 04/04/161999 [place] [address] documented as of this encounter
--- OUTSIDE RECORDS SUMMARY | 2022-05-04 05:30 | XMS_ITS | Encounter Summary ---
:1970 Author Organization [facility] Address [address] [place] [address] Care Team Providers Name Role Phone Britney Jarrett MD Primary Care Provider Reason for Visit Procedure/Equipment (Routine) - Incomplete Specialty Diagnoses / Procedures Referred By Contact Refer red To Contact Diagnoses Chronic left shoulder pain Terrell Mccarthy MD Procedures XR Shoulder Lt 2+ Views [address] [facility] [address] [place] [address] Referral ID Status Reason Start Date Expiration Date Visits V isits Requested Authorized [id number] Incomplete 12/28/2019 03/28/2021 1 1 Encounter Details Date Type Department Care Team Description 12/28/2019 Ancillary [facility] Terrell Mccarthy Chronic left Procedure [address] [facility] [place] [address] [phone] Social History Tobacco Use Types Packs/Day Years [...] rotator cuff near the insertion, lik herbert disability representative of calcific tendinosis as well as well-maintained criselda int spaces. ??She has no glenohumeral joint space narrowing. ??No fractures, dislocations, or additional osseous lesions. Terrell Mccarthy MD RAD [place] documented in this encounter Visit Diagnoses Diagnosis Chronic left shoulder pain Pain in joint, shoulder region documented in this encounter Care Teams Account Development Associate Relationship Specialty Start Date End Date Britney Jarrett MD PCP - General 04/04/161999 [place] [address] documented as of this encounter
--- OUTSIDE RECORDS SUMMARY | 2022-05-04 05:30 | XMS_ITS | Encounter Summary ---
:1970 Author Organization [facility] Address [address] [place] [address] Care Team Providers Name Role Phone Britney Jarrett MD Primary Care Provider Reason for Referral (Routine) - Closed Specialty Diagnoses / Procedures Referred By Contact Refer red To Contact Diagnoses Left lumbar radiculitis Braeden Barragan MD Procedures Dexamethasone [address] [facility] [address] [place] [address] Referral ID Status Reason Start Date Expiration Date Visits Requ ested Visits Authorized [id number] Closed 10/07/2018 01/06/2020 1 1 T CRIER (Routine) - Closed Specialty Diagnoses / Procedures Referred By Contact Refer red To Contact Diagnoses Left lumbar radiculitis Braeden Barragan MD Procedures Dexamethasone [address] [facility] [address] [place] [address] Referral ID Status Reason Start Date Expiration Date Visits Requ ested Visits Authorized [id number] Closed 10/07/2018 01/06/2020 1 1 T CRIER Reason for Visit Reason Comments Procedure Procedure/Equipment (Routine) - Incomplete Specialty Diagnoses / Procedures Referred By Contact Refer red To Contact Diagnoses Left lumbar radiculitis Doni Conway MD Procedures FL C Arm [address] [facility] [address] [place] [address] Referral ID Status Reason Start Date Expiration Date Visits V isits Requested Authorized [id number] Incomplete 10/03/2018 01/02/2020 1 1 Encounter Details Date Type Department Care Team Description 10/07/2018 Procedure Visit [facility] Pain Clinic Doni Conway MD [address] [facility] [place] [id number] Procedure [address] [employer] Braeden Barragan MD [address] [facility] [place] [id number] [place] [address] 3, Tria Rad Rn [phone] Social History Tobacco Use Types Packs/Day Years [...] Comments Blood Pressure 131/76 10/07/2018 3:[address] CRIER Pulse 87 10/07/2018 3:[address] [facility]RI[place] Temperature 37 ??C (98.6 ??F) 10/07/2018 2:[address] CRIER Respiratory Rate 18 10/07/2018 3:[address] CRIER Oxygen Saturation 100% 10/07/2018 3:[address] CRIER Inhaled Oxygen Concentration - - Weight 59 kg (130 lb) 10/07/2018 2:[address] CRIER Height 152.4 cm (5') 10/07/2018 2:[address] CRIER Body Mass Index 25.39 10/07/2018 2:[address] CRIER documented in this encounter Patient Instructions Patient InstructionsSaElina power RN - 10/07/2018 2:50 PM CST FOLLOW UP PLAN: Please follow up with Dr. Doni Conway in 10-14 days; call [phone] to schedule an appointment if you do not already have one. Lumbar Epidural Injection Post-Procedure Instructions: ?? Rest today, you may resume your normal activities tomorrow (Physical Therapy & health care attorney can also be resumed next day). ?? [...] and Anesthesiologist Please contact the Pain Nurse ([phone]) for all medical/procedural questions regarding your care at the [facility] Pain Program Please contact our Practical Nursing Teacher ([phone]) for all administrative/scheduling questions related to the [facility] Medication Requests: ?? Prescriptions requiring refills must be requested from the prescribing physician. If Dr. Barragan prescribed your medication, call the number above. If any other physician prescribed your medication, please contact his or her office to discuss. T CRIER documented in this encounter Progress Notes Renetta Domingo RN - 10/07/2018 2:50 PM CST Patient here for LESI procedure. Patient rates pain in lower back, 3/10 at rest, 8/10 with activity.Verified NPO status. Pre-op teaching completed, patient verbalizes understanding. 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 Consent per MD. T CRIER Elina Eduardo RN - 10/07/2018 2:50 PM [...] until resolves. Assisted to car in wheelchair. T CRIER documented in this encounter Procedure Notes Braeden [...] prone on the fluoroscopy table. Then a house coordinator film was taken to identify the correct [...] well and was discharged home, with a diesel pile driver operator, in stable condition with post procedural instructions. Prior to the procedure, the patient reported a pain score of 3/10 at rest and 8/10 with activity. Shortly before discharge, we noted a pain score of 0/10 at rest and 0/10 with activity. Follow-up will be Clinic Visit with Dr. Conway, per pertinent documentation. COMPLICATIONS: None T CRIER documented in this encounter Plan of Treatment Not on filedocumented as of this encounter Procedures Procedure Name Priority Date/Time Associated Diagnosis Comme nts FL C ARM 20 PAIN Routine 10/07/2018 3:24 PM Left lumbar Resul ts for this MANAGEMENT COURT CRIER radiculitis procedure are i n the results section. documented in this encounter Results FL C Arm 20 Pain Management (10/07/2018 3:[address] CRIER) Anatomical Region Laterality Modality Radiographic Imaging Specimen (Source) Anatomical Location Collection Method / Collectio n Time Received Time / Laterality Volume Narrative 10/07/2018 3:[address] CRIER Images obtained during surgical procedure. Doni Conway MD RAD [place] documented in this encounter Visit Diagnoses Diagnosis Left lumbar radiculitis Thoracic or lumbosacral neuritis or radi culitis, unspecified documented in this encounter Care Teams Visual And Stock Associate Relationship Specialty Start Date End Date Britney Jarrett MD PCP - General 04/04/161999 [place] [address] documented as of this encounter
--- OUTSIDE RECORDS SUMMARY | 2022-05-04 05:30 | XMS_ITS | Encounter Summary ---
:1970 Author Organization [facility] Address [address], [place] [address] Care Team Providers Name Role Phone Britney Jarrett MD Primary Care Provider Reason for Visit Reason Comments Pre-procedure Call Encounter Details Date Type Department Care Team Description 03/17/2019 Telephone [facility] Cary Lyons, Pre-procedure Call [address] [place], [place] [address] Social History Tobacco Use Types [...] on filedocumented in this encounter Care Teams Importer Exporter Relationship Specialty Start Date End Date Britney Jarrett MD PCP - General 04/04/161999 [place] [address] documented as of this encounter
--- OUTSIDE RECORDS SUMMARY | 2022-05-04 05:30 | XMS_ITS | Encounter Summary ---
:1970 Author Organization [facility] Address [address] [address] Care Team Providers Name Role Phone Britney Jarrett MD Primary Care Provider Reason for Visit Reason Comments Orders Needed Encounter Details Date Type Department Care Team Description 07/10/2020 Telephone [facility] Terrell Velasquez MD Orders Needed [address] [facility] [address] [facility] [place] [address] [place] [address] [phone] (Wo rk) Social History Tobacco Use Types [...] leave detailed message on your voicemail? yes [Denitrator Operator/Appt Center: If this call is after 3 p.m., communicate to patient: If we are not able to get back to you by the end of the day and your symptoms worsen please contact the Careline] [Denitrator Operator: Please inform patient that a referral does not guarantee insurance coverage. Patients should call the member services number on the back of their insurance ID card to understand whatcoverage for the services they are requesting.] TRATION TESTER documented in this encounter Plan of Treatment Not on filedocumented as of this encounter Visit Diagnoses Diagnosis Left shoulder pain, unspecified chronici ty - Primary documented in this encounter Care Teams Crew Mess Attendant Relationship Specialty Start Date End Date Britney Jarrett MD PCP - General 04/04/161999 [place] [address] documented as of this encounter
--- OUTSIDE RECORDS SUMMARY | 2022-05-04 05:30 | XMS_ITS | Encounter Summary ---
:1970 Author Organization [facility] Address [address] [place] [address] Care Team Providers Name Role Phone Britney Jarrett MD Primary Care Provider Encounter Details Date Type Department Care Team Description 03/08/2020 Notes/Orders [place] [address] Family Roz Diehl Ph aryngitis, unspecified etiology; Medicine Hiwot, RN Chest pressure; [address] Fatigue, unspecified type; [place], [place] Headache, unsp ecified headache type [address] [...] Time Signature SARS Cov-2 Not Provided 03/11/2020 [facility] Source 12:28 AM CDT LABORATORIES Comment: Specimen source was not provided. ??Plea se refer to the [facility] Test Directory for validated specimen source information: http://[email or web address]/test ing. ??Interpret results with caution. SARS-CoV-2 by PCR Not Detected 03/11/2020 12:28 AM CDT [facility] Comment: INTERPRETIVE INFORMATION: SARS-CoV-2 (CO VID-19) by [...] complia nce with this authorization, please visit [email or web address]/infectious-disea se/coronavirus for more information and to access the applicable information sheets. If the result is Not Detected, this does not rule out the presence of PCR inhibitors in the patient specime n or assay specific nucleic acid in concentrations below the level of detection by the assay. Performed by [email or web address], [address] [place] [address] [email or web address], Evangelist Mcfadden MD, Lab. Director Specimen Anatomical Collection Method Collection Time Receive d Time (Source) Location / / Volume Laterality Swab (Source Non-blood 03/08/2020 10:58 03/08/2020 8:25 Required) Collection / AM CDT PM CDT Unknown Asaf Diop PA-C LAB_1 Performing Organization Address City/State/ZIP Code Phon e Number [facility] [address] [place] [address] [phone] documented in this encounter Visit Diagnoses Diagnosis Pharyngitis, unspecified etiology Chest pressure Other chest pain Fatigue, unspecified type Headache, unspecified headache type documented in this encounter Additional Health Concerns Infection Onset Date Last Indicated Resolved Time R/O COVID19 03/08/2020 03/08/2020 03/11/2020 1:28 AM CDT documented as of this encounter Care Teams Corporate Technical Recruiter Relationship Specialty Start Date End Date Britney Jarrett MD PCP - General 04/04/161999 [place] [address] documented as of this encounter
--- OUTSIDE RECORDS SUMMARY | 2022-05-04 05:30 | XMS_ITS | Encounter Summary ---
:1970 Author Organization [facility] Address [address] [place] [address] Care Team Providers Name Role Phone Britney Jarrett MD Primary Care Provider Reason for Visit Procedure/Equipment (Routine) - Incomplete Specialty Diagnoses / Procedures Referred By Contact Refer red To Contact Diagnoses Arthralgia of right ankle Cristal Calero MD Procedures XR Ankle Rt 3 Views [address] [facility] [address] [place] [address] Referral ID Status Reason Start Date Expiration Date Visits V isits Requested Authorized [id number] Incomplete 03/27/2020 06/26/2021 1 1 Encounter Details Date Type Department Care Team Description 03/27/2020 Ancillary [facility] Cristal Calero Arthralgia of right Procedure [address] [facility] [place] [address] [phone] Social History Tobacco Use Types Packs/Day Years [...] foot documented in this encounter Care Teams Community Development Planner Relationship Specialty Start Date End Date Britney Jarrett MD PCP - General 04/04/161999 [place] [address] documented as of this encounter
--- OUTSIDE RECORDS SUMMARY | 2022-05-04 05:30 | XMS_ITS | Encounter Summary ---
:1970 Author Organization [facility] Address [address] [place] [address] Care Team Providers Name Role Phone Britney Jarrett MD Primary Care Provider Reason for Visit (Routine) - Incomplete Specialty Diagnoses / Procedures Referred By Contact Refer red To Contact Procedures Doni Conway MD Foreign Image(s) MR L-Spine [address] [facility] [address] SWANN IV Cont [place] [employer], [place] [address] Referral ID Status Reason Start Date Expiration Date Visits V isits Requested Authorized [id number] Incomplete 10/03/2018 01/02/2020 1 1 Encounter Details Date Type Department Care Team Description 09/29/2018 Ancillary Procedure [facility] Radiology PACS Doni Conway MD [address] [facility] [place] [address] [place] [address] [place] [address] [place] [address] (Felecia rk) Social History Tobacco Use Types [...] esults for this L-SPINE WO IV CONT GEOSCIENCE TECHNICIAN procedure are in the results section. documented in this encounter Results Foreign Image(s) MR L-Spine WO IV Cont (09/29/2018 12:00 AM GEOSCIENCE TECHNICIAN) Specimen (Source) Anatomical Location Collection Method / Collectio n Time Received Time / Laterality Volume Narrative PN POCT - 10/03/2018 2:39 PM GEOSCIENCE TECHNICIAN These outside images have been uploaded into PACS. If the results were provided, they will be located in the ne brigido's chart under the Media or Imaging tab. Doni Conway MD RAD NON-REPORTABLES Performing Organization Address City/State/ZIP Code Phon e Number POCT PN POCT documented in this encounter Visit Diagnoses Not on filedocumented in this encounter Care Teams Edge Grinder Machine Relationship Specialty Start Date End Date Britney Jarrett MD PCP - General 04/04/161999 [place] [address] documented as of this encounter
--- OUTSIDE RECORDS SUMMARY | 2022-05-04 05:30 | XMS_ITS | Encounter Summary ---
:1970 Author Organization [facility] Address [address] [place] [address] Care Team Providers Name Role Phone Britney Jarrett MD Primary Care Provider Reason for Referral Consult/Transfer Care (Routine) - Closed Specialty Diagnoses / Procedures Referred By Contact Refer red To Contact Diagnoses Tarlov Doni Sal MD [address] [place] [address] 1 Referral ID Status Reason Start Date Expiration Date Visits Requ ested Visits Authorized [id number] Closed 10/04/2018 01/03/2020 1 1 Scheduling Instructions Your provider has recommended an appoint ment with Calista Schumacher. You may call [phone] to schedule your appoi ntment. If you do not schedule an appointment within the next 1 to 3 business days, we will call you to help arrange your appointment. We suggest you call your [facility] insurance company about your coverage and benefits for this appointment. COORDINATOR Reason for Visit Reason Comments Orders Needed Encounter Details Date Type Department Care Team Description 10/04/2018 Telephone [facility] Shayna Conway MD Orders Needed Care [address] [facility] [address] [place] [address] [place] [facility] [phone] Social History Tobacco Use Types Packs/Day Years [...] facesheet faxed to Dr. Lane's office at [phone]. Pt informed via VM. Shanel Fink RN - 10/05/2018 1:44 PM CST Motel Keeper l/m on an identified secure voicemail informing the pt. That called from Neurosurgery clinic stating Dr. Miller no longer see pt.s with Tarlov cysts. He has not seen pt.s for four years regarding these cyst. He doesn't know of anyone in the area thatdoes. Motel Keeper informed the pt. That she would be routing this new information back to Dr. Conway and his nurse, Do. The pt. Was informed that Dr. Conway is in house on 10/07/18. Shanel Fink RN - 10/05/2018 1:41 PM CST , from Neurosurgery dept. Called and informed song writer that Dr. Miller no longer sees pt.s with Tarlov cysts. He hasn't done so in four years. They don't know of anyone that does see pt.s with this. Please advise and inform the pt. Shanel Fink RN - 10/05/2018 10:26 AM CST Pt. L/m stating the fax number for Dr. Allen office is: [phone]. Faxed her order successfully and l/m on her identified secure voicemail stating this. Shanel Fink RN - 10/04/2018 12:08 PM CST Motel Keeper informed the pt. That Dr. Conway had placed a neurosurgery consult for her and that it was faxed successfully to the [facility] [place]. Shanel Fink RN - 10/04/2018 11:21 AM CST Per VO from Dr. Conway, 1. The left hip pain may be coming from the Lumbar issues. Will address this concern two weeks afterthe JUNIOR with Dr. Conway. He can do this injection in office then, if needed. 2. Dr. To see for the Tarlov cysts is: Dr. Jaylen Allen at [facility].Faxed this order successfully to [phone], Dr. Allen office. Pt. Was given this information above as well as the phone number and address to the [facility] in [place], [place]. She asked that we place a consult to the neurosurgery center. Pended. Please approve or deny. Shanel Fink RN - 10/04/2018 11:01 AM CST Pt. Calling in stating she saw Dr. Conway yesterday in the [facility]. She has two questions: 1. Who is [...] accurate. ? Doni Conway MD Note Details COORDINATOR documented in this encounter Plan of Treatment Scheduled Referrals Name Type Priority Associated Diagnoses [facility] Referral Routine Tarlov cysts Ord ered: 10/04/2018 Consult-Adult documented as of this encounter Visit Diagnoses Diagnosis Tarlov cysts - Primary Mononeuritis of unspecified site documented in this encounter Care Teams Compliance Lead Relationship Specialty Start Date End Date Britney Jarrett MD PCP - General 04/04/161999 [place] [address] documented as of this encounter
--- OUTSIDE RECORDS SUMMARY | 2022-05-04 05:30 | XMS_ITS | Encounter Summary ---
:1970 Author Organization [facility] Address [address] [place] [address] Care Team Providers Name Role Phone Britney Jarrett MD Primary Care Provider Reason for Visit Reason Comments QUESTIONS, GENERAL Encounter Details Date Type Department Care Team Description 01/31/2020 Telephone [facility] Terrell Velasquez, QUESTIONS, GENERAL [address] [facility] [place], [place] [address] [address] [facility] [phone] [place] [address] (Wo rk) Social History Tobacco [...] you been seen for this recently?: n/a [Sap Basis Architect/Appt Center: If yes, please include date and provider.] Is it okay to leave detailed message on your voicemail? Yes [Sap Basis Architect/Appt Center: If this call is after 3 [...] documented as of this encounter Care Teams Literary Agent Relationship Specialty Start Date End Date Britney Jarrett MD PCP - General 04/04/161999 [place] [address] documented as of this encounter
--- OUTSIDE RECORDS SUMMARY | 2022-05-04 05:30 | XMS_ITS | Encounter Summary ---
:1970 Author Organization [facility] Address [address] [place] [address] Care Team Providers Name Role Phone Britney Jarrett MD Primary Care Provider Reason for Referral (Routine) - Closed Specialty Diagnoses / Procedures Referred By Contact Refer red To Contact Diagnoses Left lumbar radiculitis Braeden Barragan MD Procedures Dexamethasone [address] [place] [address] [address] [place] [address] Referral ID Status Reason Start Date Expiration Date Visits Requ ested Visits Authorized [id number] Closed 03/22/2019 06/20/2020 1 1 Reason for Visit Reason Comments Post Visit Follow Up Phone Call Procedure Procedure/Equipment (Routine) - Incomplete Specialty Diagnoses / Procedures Referred By Contact Refer red To Contact Diagnoses Left lumbar radiculitis Doni Conway MD Procedures FL C Arm 20 [facility] [address] [place] [address] [address] [place] [address] Referral ID Status Reason Start Date Expiration Date Visits V isits Requested Authorized [id number] Incomplete 03/02/2019 05/31/2020 1 1 Encounter Details Date Type Department Care Team Description 03/22/2019 Procedure Visit [facility] Doni Conway MD [address] [facility] [place] [address] Post Visit Follow Up [address] [place] [address] Braeden Barragan MD [address] [facility] [place] [address] Phone Call; [place] [address], Micaela Shipley Clothes Ironer [address] Social History Tobacco Use Types Packs/Day [...] Dr. Doni Conway in 10-14 days; call [phone] to schedule an appointment if you do not already have one. Lumbar Epidural Injection Post-Procedure Instructions: ?? Rest today, you may resume your normal activities tomorrow (Physical Therapy & child care counselor can also be resumed next day). ?? [...] and Anesthesiologist Please contact the Pain Nurse ([phone]) for all medical/procedural questions regarding your care at the [facility] Please contact our Electric Motor Controls Assembler ([phone]) for all administrative/scheduling questions related to the [...] completed, patient verbalizes understanding. 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 Consent per MD. Renetta Domingo RN - 03/22/2019 8:30 AM CDT Patient tolerated procedure well, vital signs stable. Post-procedure pain level 2/10 at rest, 1/10 with activity. Discharge instructions given (written & verbal review), patient verbalized understanding. Patient discharged to home at 937am via ambulatory with class a regional truck driver. documented in this encounter Procedure Notes Braeden [...] prone on the fluoroscopy table. Then a set up technician film was taken to identify the correct [...] well and was discharged home, with a class a regional truck driver, in stable condition with post procedural instructions. [...] unspecified documented in this encounter Care Teams Cloth Doffer Relationship Specialty Start Date End Date Britney Jarrett MD PCP - General 04/04/161999 [place] [address] documented as of this encounter
--- OUTSIDE RECORDS SUMMARY | 2022-05-04 05:30 | XMS_ITS | Encounter Summary ---
:1970 Author Organization [facility] Address [address] [place] [address] Care Team Providers Name Role Phone Britney Jarrett MD Primary Care Provider Reason for Visit Reason Comments APPOINTMENT REQUEST Encounter Details Date Type Department Care Team Description 12/15/2019 Telephone [facility] Terrell Velasquez, APPOINTMENT REQUEST [address] [facility] [place], [place] [address] [address] [facility] [phone] [place] [address] (Wo rk) Social History Tobacco Use Types [...] 12/15/2019 10:13 AM CDT This telegraphic typewriter operator chief left the following voicemail with the patient [...] Please give us a call back at [phone] to reschedule your January 03 appointment to [...] Britney Jarrett MD PCP - General 04/04/161999 [place] [address] documented as of this encounter
--- OUTSIDE RECORDS SUMMARY | 2022-05-04 05:31 | XMS_ITS | Encounter Summary ---
:1970 Author Organization [facility] Address [address] [place] [address] Care Team Providers Name Role Phone Britney Jarrett MD Primary Care Provider Reason for Referral Procedure/Equipment (Routine) - Incomplete Specialty Diagnoses / Procedures Referred By Contact Refer red To Contact Diagnoses Postop check Terrell Mccarthy MD Procedures XR Shoulder Rt 2+ Views [address] [facility] [address] [place] [address] Referral ID Status Reason Start Date Expiration Date Visits V isits Requested Authorized [id number] Incomplete 11/18/2017 02/17/2019 1 1 Reason for Visit Reason Comments SHOULDER PAIN Encounter Details Date Type Department Care Team Description 11/18/2017 Office Visit [facility] Terrell Mccarthy, Post op check (Primary CENTER MD Dx) [address] [facility] [address] [facility] [address] [place] [address] [place], [place] [phone] (Wo rk) Social History Tobacco Use Types [...] 12:00 PM CST NAME: RAHAT THOMASON MR#: [id number] CSN: [id number] AUTHENTICATING CLINICIAN: Terrell Mccarthy MD CONFIRM #: [...] surgery documented in this encounter Care Teams Multimedia Educational Specialist Relationship Specialty Start Date End Date Britney Jarrett MD PCP - General 04/04/161999 [place] [address] documented as of this encounter
--- OUTSIDE RECORDS SUMMARY | 2022-05-04 05:31 | XMS_ITS | Encounter Summary ---
:1970 Author Organization [facility] Address [address] [place] [address] Care Team Providers Name Role Phone Britney Jarrett MD Primary Care Provider Reason for Visit Reason Comments Questions nausea/vomiting Encounter Details Date Type Department Care Team Description 10/03/2017 Telephone [facility] Terrell Mccarthy, [facility] (nausea/vomiting) [address] [facility] [address] [facility] [place], [place] [address] [place], [place] [phone] (Wo rk) Social History Tobacco Use Types [...] medications. DO has left. Pager the resident medical collections representative Dr. Amado. He has agreed to remotely approve the change in medications. Patient was called to discuss the changes and instructed on how to use the medications. Will check with patient on Friday. CLOCK REPAIRER documented in this encounter Plan of Treatment Not on filedocumented as of this encounter Visit Diagnoses Not on filedocumented in this encounter Care Teams Journeyman Pipe Fitter Relationship Specialty Start Date End Date Britney Jarrett MD PCP - General 04/04/161999 [place] [address] documented as of this encounter
--- OUTSIDE RECORDS SUMMARY | 2022-05-04 05:31 | XMS_ITS | Encounter Summary ---
:1970 Author Organization [facility] Address [address] [place] [address] Care Team Providers Name Role Phone Britney Jarrett MD Primary Care Provider Reason for Visit Reason Comments Knee Pain or Injury Encounter Details Date Type Department Care Team Description 08/19/2016 Surgical Consult [facility] Andrade Marsh MD Left knee pain, unspecified chronicity ( Primary Dx); [address] Chondrocalcinosis, left knee; 8[address] [place], [place] Discoid meniscus of knee, [place] [phone] Social History Tobacco Use Types Packs/Day Years [...] 58.1 kg (128 lb) 08/19/2016 2:12 PM BATCH UNLOADER Height 152.4 cm (5') 08/19/2016 2:12 PM BATCH UNLOADER Body Mass Index 25 08/19/2016 2:12 PM BATCH UNLOADER documented in this encounter Progress Notes Andrade Marsh MD - 08/19/2016 3:07 PM CST NAME: RAHAT THOMASON MR#: [id number] CSN: [id number] AUTHENTICATING CLINICIAN: Andrade Marsh MD CONFIRM #: [...] treatment plan. 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
--- OUTSIDE RECORDS SUMMARY | 2022-05-04 05:31 | XMS_ITS | Encounter Summary ---
:1970 Author [facility] Address [address] [address] Care Team Providers Name Role Phone Britney Jarrett MD Primary Care Provider Encounter Details Date Type Department Care Team Description 04/27/2018 Notes/Orders [facility] [address] [facility] [place] [address] [address] [facility] [phone] [facility] N 733186 (Wo rk) Social History Tobacco Use Types [...] filedocumented in this encounter Care Teams Senior Hr Generalist Relationship Specialty Start Date End Date Britney Jarrett MD PCP - General 04/04/161999 [place] [address] documented as of this encounter
--- OUTSIDE RECORDS SUMMARY | 2022-05-04 05:31 | XMS_ITS | Encounter Summary ---
:1970 Author Organization [facility] Address [address] [address] Care Team Providers Name Role Phone Britney Jarrett MD Primary Care Provider Reason for Visit Procedure/Equipment (Routine) - Incomplete Specialty Diagnoses / Procedures Referred By Contact Refer red To Contact Procedures Andrade Marsh MD Foreign Image(S) MR [address] [facility] [address] Extremity Rt [place], [place] [address] Referral ID Status Reason Start Date Expiration Date Visits V isits Requested Authorized [id number] Incomplete 09/02/2016 12/02/2017 1 1 Encounter Details Date Type Department Care Team Description 08/29/2016 Imaging [id number] RADIOLOGY CENTRAL FILM Andrade Murillo MD LIBRARY [address] [facility] [address] [place], [place] [address] [place] [address] Social History Tobacco Use Types Packs/Day Years [...] AM R esults for this EXTREMITY RT COMMERCIAL INSTRUCTOR SUPERVISOR procedure are i n the results section. documented in this encounter Results Foreign Image(S) MR Extremity Rt (08/29/2016 12:00 AM COMMERCIAL INSTRUCTOR SUPERVISOR) Specimen (Source) Anatomical Location Collection Method / Collectio n Time Received Time / Laterality Volume Narrative PN POCT - 09/02/2016 2:34 PM COMMERCIAL INSTRUCTOR SUPERVISOR These outside images have been uploaded into PACS. If the results were provided, they will be located on the Me joce tab in the patient's chart. Andrade Marsh MD RAD NON-REPORTABLES Performing Organization Address City/State/ZIP Code Phon e Number POCT PN POCT documented in this encounter Visit Diagnoses Not on filedocumented in this encounter Care Teams Quality System Manager Relationship Specialty Start Date End Date Britney Jarrett MD PCP - General 04/04/161999 [place] [address] documented as of this encounter
--- OUTSIDE RECORDS SUMMARY | 2022-05-04 05:31 | XMS_ITS | Encounter Summary ---
:1970 Author Organization [facility] Address [address] [place] [address] Care Team Providers Name Role Phone Britney Jarrett MD Primary Care Provider Reason for Visit Reason Comments Questions c/o numbness in arm and hand Encounter Details Date Type Department Care Team Description 10/10/2017 Telephone [facility] Terrell Mccarthy, Talisha price (c/o CENTER numbness in arm and [address] [facility] [address] [facility] hand) [place], [place] [address] [place], [place] [phone] (Wo rk) Social History Tobacco Use Types [...] She will continue to observe her symptoms. NISTRATIVE OPERATIONS COORDINATOR documented in this encounter Plan of Treatment Not on filedocumented as of this encounter Visit Diagnoses Not on filedocumented in this encounter Care Teams Surgical Aide Relationship Specialty Start Date End Date Britney Jarrett MD PCP - General 04/04/161999 [place] [address] documented as of this encounter
--- OUTSIDE RECORDS SUMMARY | 2022-05-04 05:31 | XMS_ITS | Encounter Summary ---
:1970 Author Organization [facility] Address [address] [place] [address] Care Team Providers Name Role Phone Britney Jarrett MD Primary Care Provider Reason for Referral Therapies (Routine) - Closed Specialty Diagnoses / Procedures Referred By Contact Refer red To Contact Diagnoses Chronic right shoulder pain Terrell Mccarthy MD [address] [place] [address] 1 Referral ID Status Reason Start Date Expiration Date Visits Requ ested Visits Authorized [id number] Closed 10/14/2017 12/13/2017 1 1 Scheduling Instructions Your provider has recommended an appoint ment with [facility]. You may call [phone] to schedule your appoi ntment. If you do not schedule an appointment within the next 1 to 3 business days, we will call you to help arrange your appointment. We suggest you call your [facility] insurance company about your coverage and benefits for this appointment. Reason for Visit Reason Comments Post Op Exam Encounter Details Date Type Department Care Team Description 10/14/2017 Office Visit [facility] Terrell Mccarthy Lead Ramp Agent [facility] shoulder pain [address] [facility] [address] [facility] (Primary Dx) [place], [place] [address] [place], [place] [phone] (Wo rk) Social History Tobacco Use Types [...] Name Type Priority Associated Diagnoses Order S [facility] Physical Therapy Referral Routine Chronic right shoulder p ain Ordered: 10/14/2017 documented as of this encounter Visit Diagnoses Diagnosis Chronic right shoulder pain - Primary Pain in joint, shoulder region documented in this encounter Care Teams Rating Officer Relationship Specialty Start Date End Date Britney Jarrett MD PCP - General 04/04/161999 [place] [address] documented as of this encounter
--- OUTSIDE RECORDS SUMMARY | 2022-05-04 05:31 | XMS_ITS | Encounter Summary ---
:1970 Author Organization [email or web address] Address [address], [place] [address] Care Team Providers Name Role Phone Britney Jarrett MD Primary Care Provider Reason for Visit Reason Comments SHOULDER PAIN Encounter Details Date Type Department Care Team Description 08/26/2016 Surgical Consult [facility] Andrade Marsh MD Calcific tendonitis, right shoulder ([facility] Dx); CENTER [address] [place] [address] Chronic right shoulder pain 8[address] [place] [address] [phone] Social History Tobacco Use Types Packs/Day Years [...] 58.1 kg (128 lb) 08/26/2016 2:15 PM MEDICAL EQUIPMENT REPAIR TECHNICIAN Height 152.4 cm (5') 08/26/2016 2:15 PM MEDICAL EQUIPMENT REPAIR TECHNICIAN Body Mass Index 25 08/26/2016 2:15 PM MEDICAL EQUIPMENT REPAIR TECHNICIAN documented in this encounter Progress Notes Andrade Marsh MD - 09/03/2016 11:47 AM CST NAME: RAHAT THOMASON MR#: [id number] CSN: [id number] AUTHENTICATING CLINICIAN: Andrade Marsh MD CONFIRM #: [id number] LOC: 711 CLINIC PROGRESS NOTE DATE OF VISIT: 08/26/2016 : 1970 INTERVAL HISTORY: 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 She had a painful Odanah's test. Negative lift-off. Had good strength. Maybe some mild discomfort with lift-off and belly-press tests. She is not tender in her bicipital groove. She has full elbow extension. Her arm and forearm compartments are soft to palpation. Her distal neurovascular exam is grossly within normal limits today. IMAGING: There are x-rays from [facility] from 08/16/2016. They are imported. Formal read [...] We are going to schedule this at [facility]. Hopefully, they can do it on their open scanner. She will follow up with me after the MRI. Total time 15 minutes, 10 minutes counseling and developing our treatment plan. GBF: C: R:09/01/16 22:06 CONFIRM#:[id number] CAL EQUIPMENT REPAIR TECHNICIAN documented in this encounter Plan of Treatment Not on filedocumented as of this encounter Visit Diagnoses Diagnosis Calcific tendonitis, right shoulder - Pr imary Calcium deposits in tendon and bursa Chronic right shoulder pain Pain in joint, shoulder region documented in this encounter Care Teams Clothes Model Relationship Specialty Start Date End Date Britney Jarrett MD PCP - General 04/04/[address] [place] [address] documented as of this encounter
--- OUTSIDE RECORDS SUMMARY | 2022-05-04 05:31 | XMS_ITS | Encounter Summary ---
:1970 Author Organization [facility] Address [address], [place] [address] Care Team Providers Name Role Phone Britney Jarrett MD Primary Care Provider Reason for Visit Procedure/Equipment (Routine) - Incomplete Specialty Diagnoses / Procedures Referred By Contact Refer red To Contact Procedures Andrade Marsh MD Foreign Image(S) XR [address] [facility] [address] Extremity Rt [place], [place] [address] Referral ID Status Reason Start Date Expiration Date Visits V isits Requested Authorized [id number] Incomplete 08/19/2016 11/18/2017 1 1 Encounter Details Date Type Department Care Team Description 08/16/2016 Imaging [id number] RADIOLOGY CENTRAL FILM Andrade Murillo MD LIBRARY [address] [facility] [address] [facility] [place], [place] [address] [place] [address] Social History Tobacco Use Types Packs/Day Years [...] AM R esults for this EXTREMITY RT FINANCIAL ADVOCATE procedure are i n the results section. documented in this encounter Results Foreign Image(S) XR Extremity Rt (08/16/2016 12:00 AM FINANCIAL ADVOCATE) Specimen (Source) Anatomical Location Collection Method / Collectio n Time Received Time / Laterality Volume Narrative PN POCT - 08/19/2016 3:36 PM FINANCIAL ADVOCATE These outside images have been uploaded into PACS. If the results were provided, they will be located on the Me joce tab in the patient's chart. Andrade Marsh MD RAD NON-REPORTABLES Performing Organization Address City/State/ZIP Code Phon e Number POCT PN POCT documented in this encounter Visit Diagnoses Not on filedocumented in this encounter Care Teams Physics Department Chair Relationship Specialty Start Date End Date Britney Jarrett MD PCP - General 04/04/161999 [place] [address] documented as of this encounter
--- OUTSIDE RECORDS SUMMARY | 2022-05-04 05:31 | XMS_ITS | Encounter Summary ---
:1970 Author [facility] Address [address], [place] [address] Care Team Providers Name Role Phone Britney Jarrett MD Primary Care Provider Reason for Visit Procedure/Equipment (Routine) - Incomplete Specialty Diagnoses / Procedures Referred By Contact Refer red To Contact Procedures Provider, Foreign Images Foreign Image(S) XR Shoulder 3930 [place] [address] Referral ID Status Reason Start Date Expiration Date Visits V isits Requested Authorized [id number] Incomplete 05/09/2018 08/08/2019 1 1 Encounter Details Date Type Department Care Team Description 05/09/2018 Imaging Radiology PACS Provider, Foreign Images [address] [facility] 39[address] [place] [address] [place] [address] Social History Tobacco Use Types Packs/Day Years [...] on filedocumented in this encounter Care Teams Auto Body Painter Relationship Specialty Start Date End Date Britney Jarrett MD PCP - General 04/04/161999 [place] [address] documented as of this encounter
--- OUTSIDE RECORDS SUMMARY | 2022-05-04 05:31 | XMS_ITS | Encounter Summary ---
:1970 Author Organization [facility] Address [address] [place] [address] Care Team Providers Name Role Phone Britney Jarrett MD Primary Care Provider Reason for Referral (Routine) - Closed Specialty Diagnoses / Procedures Referred By Contact Refer red To Contact Diagnoses Calcific tendinitis of left shoulder Jignesh Flores DO Procedures Triamcinolone Acet Inj Nos: (per 10 mg) [address] [facility] [place], [place] [address] Referral ID Status Reason Start Date Expiration Date Visits Requ ested Visits Authorized [id number] Closed 05/10/2018 08/09/2019 1 1 Reason for Visit Reason Comments SHOULDER PAIN left / ongoing Encounter Details Date Type Department Care Team Description 05/09/2018 Office Visit [facility] Jignesh Flores DO Calcific tendinitis Urgent Care [address] of left shoulder 8[address] [place], [place] (Primary Dx) [place], [place] [address] [phone] (Wo rk) Social History Tobacco Use Types [...] for all medical requests and questions at [phone] MRI Scheduling: To schedule an MRI at [facility] please call [phone] Paperwork Requests: Questions regarding FMLA or disability paperwork please call [phone] Phone lines are answered 8AM to 5PM Friday - Friday Workers??? Compensation: Please contact our department for any Work Comp concerns at Email: [email or web address] Shoulder injection for calcific tendonitis Follow up [...] injection or develop a fever, please call [phone] documented in this encounter Progress Notes Jignesh Flores DO - 05/09/2018 12:40 PM CDT [facility] 05/09/2018 Chief Complaint: Left [...] shoulder documented in this encounter Care Teams Expanding Machine Operator Relationship Specialty Start Date End Date Britney Jarrett MD PCP - General 04/04/161999 [place] [address] documented as of this encounter
--- OUTSIDE RECORDS SUMMARY | 2022-05-04 05:31 | XMS_ITS | Encounter Summary ---
:1970 Author Organization [facility] Address [address] [place] [address] Care Team Providers Name Role Phone Britney Jarrett MD Primary Care Provider Reason for Visit Reason Comments Questions post op Encounter Details Date Type Department Care Team Description 10/07/2017 Telephone [facility] Terrell Velasquez, Questions (post op) 8[address] [facility] [place], [place] [address] [address]100 [facility] [phone] [place], [place] [address] (Wo rk) Social History Tobacco Use Types [...] Reviewed her medications, she is doing well. ILE ARTIST documented in this encounter Plan of Treatment Not on filedocumented as of this encounter Visit Diagnoses Not on filedocumented in this encounter Care Teams Instructional Materials Director Relationship Specialty Start Date End Date Britney Jarrett MD PCP - General 04/04/161999 [place] [address] documented as of this encounter
--- OUTSIDE RECORDS SUMMARY | 2022-05-04 05:31 | XMS_ITS | Encounter Summary ---
:1970 Author Organization [employer] Address [address], [place] [address] Care Team Providers Name Role Phone Britney Jarrett MD Primary Care Provider Reason for Visit Reason Comments CONSULT Arthritis Encounter Details Date Type Department Care Team Description 04/24/2018 Initial Consult Leslie Ariadne Osteoarthri tis of multiple joints, unspecified osteoarthritis type (Primary Dx); Rheumatology MD Dao Degenerative spinal arthritis [address] [address] [phone] Social History Tobacco Use Types Packs/Day Years [...] decided to have an evaluation with a train electronic technician for the 1st time to help rule [...] day. She tries several medications including acetaminophen, iwhn-xgr-oicanjv anti- inflammatory medication, cortisone injection, massage therapy, chiropractor, physical therapy, inversion table. They are temporarily helpful but not adequately. She went to [facility] to see a spinal surgeon who ordered several MRIs and told her that she has an incurable and irreversible arthritis, with lower back spondylolisthesis. Additional surgery was not offered. She also was evaluated at pain clinic at [facility]. She has been certified for medical marijuana use but has not started it. She was also suspected by her primary care provider to have a possible fibromyalgia. She was tried on Cymbalta but could not tolerate it. Gabapentin was not much helpful. She has been prescribed Kbkypj89 mg capsule to try but has not [...] other internal derangement identified. Outside records from [facility]: On 09/25/2017, white blood cells 5.1, [...] acetaminophen up to 3000 mg a day and/xowe-tnp-vrxrwqd anti-inflammatory medication as needed. Intra-articularcortisone injection if [...] minutes, 40 minutes counseling. CC: JEVON Barrett [address] [place] [address] documented in this encounter Plan of Treatment [...] - 04/24/2018 7:25 PM CDT Performed at [address] [address] CLIA number [id number] Dao Ron MD LAB_1 Performing Organization Address [facility] Phon e Number PN SOFT [address] [place] [address] (ABNORMAL) Total Iron and Iron Binding Capacity [...] - 04/24/2018 7:51 PM CDT Performed at [address] [address] CLIA number [id number] Dao Ron MD LAB_1 Performing Organization Address [facility] Phon e Number PN SOFT [address] [place] [address] CA - Calcium (04/24/2018 3:02 PM CDT) athologist Signature Calcium 9.7 8.4 - 10.4 PN SOFT mg/dL Specimen Anatomical Collection Method Collection Time Receive d Time (Source) Location / / Volume Laterality 04/24/2018 3:02 PM 8 3:02 CDT PM CDT Narrative PN SOFT - 04/24/2018 3:26 PM CDT Performed at [facility], [address] [place] [address] CLIA number [id number] Dao Ron MD LAB_1 Performing Organization Address [facility] Phon e Number PN SOFT [address] [place] [address] TSH with Free T4 (if TSH Abnormal) (04/24/2018 3:02 PM CDT) athologist Signature Thyroid 0.80 0.30 - PN SOFT Stimulating 4.50 Hormone uIU/mL Specimen Anatomical Collection Method Collection Time Receive d Time (Source) Location / / Volume Laterality 04/24/2018 3:02 PM 8 6:30 CDT PM CDT Narrative PN SOFT - 04/24/2018 7:25 PM CDT Performed at [address] [address] CLIA number [id number] Dao Ron MD LAB_1 Performing Organization Address [facility] Phon e Number PN SOFT [address] [place] [address] VITD - Vitamin D (In house) (04/24/2018 [...] - 04/24/2018 6:58 PM CDT Performed at [address] [address] CLIA number [id number] Dao Ron MD LAB_1 Performing Organization Address [facility] Phon e Number PN SOFT [address] [place] [address] [phone] documented in this encounter Visit Diagnoses Diagnosis Osteoarthritis of multiple joints, unspe cified osteoarthritis type - Primary Degenerative spinal arthritis ([facility]) Spondylosis of unspecified site without mention of myelopathy Osteoarthritis of multiple joints, unspe cified osteoarthritis type Degenerative spinal arthritis ([facility]) Spondylosis of unspecified site without mention of myelopathy documented in this encounter Care Teams Locomotive Operator Relationship Specialty Start Date End Date Britney Jarrett MD PCP - General 04/04/161999 [place] [address] documented as of this encounter
--- OUTSIDE RECORDS SUMMARY | 2022-05-04 05:31 | XMS_ITS | Encounter Summary ---
:1970 Author Organization [employer] Address [address] [place] [address] Care Team Providers Name Role Phone Britney Jarrett MD Primary Care Provider Reason for Visit Reason Comments Questions office visit 4-17 Encounter Details Date Type Department Care Team Description 11/20/2017 Telephone [facility] Terrell Mccarthy, Talisha price (office CENTER MD visit 4-17) [address] [facility] [address] [place] [address] [place] [address] [place], [place] [phone] (Wo rk) Social History Tobacco Use Types [...] on filedocumented in this encounter Care Teams Slot Supervisor Relationship Specialty Start Date End Date Britney Jarrett MD PCP - General 04/04/161999 [place] [address] documented as of this encounter
--- OUTSIDE RECORDS SUMMARY | 2022-05-04 05:31 | XMS_ITS | Encounter Summary ---
:1970 Author Organization [facility] Address [address] [place] [address] Care Team Providers Name Role Phone Britney Jarrett MD Primary Care Provider Encounter Details Date Type Department Care Team Description 10/02/2017 Anesthesia Event [facility] Enmanuel Harmon MD [address] [facility] Driv e [address] [place], [place] [address] [place], [place] [phone] (Wo rk) Anesthesia Record Procedure Summary Procedure Name Responsible Anesthesia Start Anesthesia Stop Anesthesiologist Time Time RIGHT shoulder Enmanuel Harmon MD 10/02/17 1003 10/02/17 113 4 arthroscopic subacromial decompression, biceps tenodesis, calcium debridement, possible rotator cuff repair and possible distal clavicle excision (Right: Shoulder) Events Date Time Event Comment 10/02/2017 0935 IV plmt Harris Ryan, USER INTERFACE DESIGNER 0938 IV Plmt Comp IV was placed in Preop area by Jordin Mitchell APRN, USER INTERFACE DESIGNER for adminis tration of IV fluids, IV antibiotics, and IV pre-op sedation. Patient was continuously mon itored by Jordin Mitchell APRN, USER INTERFACE DESIGNER during the place ment. 1003 1003 An [...] onically signed by Radha Atkins APRN , USER INTERFACE DESIGNER 1202 MD/DO Present Name Total midazolam 2 [...] Inserted Jordin Mitchell Laurie J RN by?: USER INTERFACE DESIGNER; Size LYNETTE FIELDS (Gauge): 20 G; Orientation: [...] by: Enmanuel Harmon MD 10/02/2017 12:49 PM PENDENT SALES REPRESENTATIVE Anesthesia Preprocedure Evaluation - Enmanuel Harmon MD [...] by: Enmanuel Harmon MD 10/02/2017 9:44 AM PENDENT SALES REPRESENTATIVE Anesthesia Procedure Notes - Enmanuel Harmon MD - 10/02/2017 9:43 AM INDEPENDENT SALES REPRESENTATIVE Associated Order(s): [facility] PERIPHERAL [facility] Peripheral Block [...] Complications: none Attestations:I personally performed the procedure. PENDENT SALES REPRESENTATIVE documented in this encounter Plan of Treatment Pending Results Name Type Priority Associated Diagnoses Date/Ti me Tria Peripheral Block Other Routine 2017 9:44 AM INDEPENDENT SALES REPRESENTATIVE documented as of this encounter Procedures Procedure Name Priority Date/Time Associated Diagnosis Comme nts [facility] PERIPHERAL BLOCK Routine 10/02/2017 9:44 AM INDEPENDENT SALES REPRESENTATIVE Procedure Note - Bird Harmon MD - [...] 2 g in Given 10/02/2017 10:03 AM INDEPENDENT SALES REPRESENTATIVE 2 g dextrose 100 ml IVPB 2 g, Intravenous, Administer over 30 Minutes, ONCE, On Yadira 10/02/17 at 0930, For 1 dose, Infuse within 60 minutes prior to incision; Re-dose 1 gram IV every 4 hours after initial dose until incision closed., Pre-op dexamethasone (aka DECADRON) injection Given 10/02/2017 10:19 AM INDEPENDENT SALES REPRESENTATIVE 4 mg Intravenous, Starting on Yadira 10/02/17 at 1019 lactated ringers infusion Started 10/02/2017 10:36 AM INDEPENDENT SALES REPRESENTATIVE Intravenous, at 30 mL/hr, CONTINUOUS, Starting on Yadira 10/02/17 at 0930, Pre-op Started 10/02/2017 9:38 AM INDEPENDENT SALES REPRESENTATIVE lidocaine 2% PF (XYLOCAINE) injection Given 10/02/2017 10:12 AM INDEPENDENT SALES REPRESENTATIVE 80 mg Intravenous, Starting on Yadira 10/02/17 at 1012, Until Yadira 10/02/17 at 1134 midazolam (aka VERSED) injection Given 10/02/2017 11:09 AM INDEPENDENT SALES REPRESENTATIVE 1 mg Intravenous, Starting on Yadira 10/02/17 at 1003 Given 10/02/2017 10:25 AM INDEPENDENT SALES REPRESENTATIVE 1 mg Given 10/02/2017 10:03 AM INDEPENDENT SALES REPRESENTATIVE 2 mg ondansetron (ZOFRAN) injection Given 10/02/2017 11:16 AM INDEPENDENT SALES REPRESENTATIVE 4 mg Intravenous, Starting on Yadira 10/02/17 at 1116, Until Yadira 10/02/17 at 1134 phenylephrine-NaCl 0.9% 100 mcg/mL syringe Given 10/02 10:52 AM INDEPENDENT SALES REPRESENTATIVE 100 mcg (aka SARAH-SYNEPHRINE) Starting on Yadira 10/02/17 at 1041 Given 10/02/2017 10:45 AM INDEPENDENT SALES REPRESENTATIVE 100 mcg Given 10/02/2017 10:41 AM INDEPENDENT SALES REPRESENTATIVE 50 mcg propofol (aka diPRIvan) Started 10/02/2017 10:12 80 mcg/kg/min 28. 94 mL/hr injection AM INDEPENDENT SALES REPRESENTATIVE Intravenous, Starting on Yadira 10/02/17 at 1012 propofol (aka diPRIvan) injection Given 10/02/2017 11:09 AM INDEPENDENT SALES REPRESENTATIVE 20 mg Intravenous, Starting on Yadira 10/02/17 at 1109 documented in this encounter Care Teams Type Photography Supervisor Relationship Specialty Start Date End Date Britney Jarrett MD PCP - General 04/04/161999 [place] [address] documented as of this encounter
--- OUTSIDE RECORDS SUMMARY | 2022-05-04 05:31 | XMS_ITS | Encounter Summary ---
:1970 Author Organization [email or web address] Address [address] [place] [address] Care Team Providers Name Role Phone Britney Jarrett MD Primary Care Provider Reason for Visit Reason Onset Date Comments Refill 10/03/2017 Encounter Details Date Type Department Care Team Description 10/03/2017 Refill [facility] Terrell Velasquez MD Refill [address] [facility] [address] [facility] [place], [place] [address] [place] [address] [phone] (Wo rk) Social History Tobacco Use Types [...] for zofran and norco for this patient. OUT TOWER FIRE WATCHER documented in this encounter Plan of Treatment Not on filedocumented as of this encounter Visit Diagnoses Not on filedocumented in this encounter Care Teams Scientific Publications Editor Relationship Specialty Start Date End Date Britney Jarrett MD PCP - General 04/04/161999 [place] [address] documented as of this encounter
--- OUTSIDE RECORDS SUMMARY | 2022-05-04 05:31 | XMS_ITS | Encounter Summary ---
:1970 Author Organization [facility] Address [address] [place] [address] Care Team Providers Name Role Phone Britney Jarrett MD Primary Care Provider Reason for Visit Reason Comments Physical Therapy Encounter Details Date Type Department Care Team Description 10/24/2017 Office Visit [facility] PT and Ed Leticia Roland, [facility], Physical BLENDING TECHNICIAN surgery of the Therapy [address] [facility] musculoskeletal system [address] [place], [place] (Prim christine Dx) [address] [address] [place], [place] [phone] (Work) [phone] Social History Tobacco Use Types Packs/Day Years [...] of this encounter Progress Notes Leticia Roland, BLENDING TECHNICIAN - 10/24/2017 7:00 AM CDT [facility] Physical Therapy Daily Note Visit Number: 3 [place]: 3 [place] 40 BLENDING TECHNICIAN visit #1 ?? Initial Certification Period: 10/15/2017 [...] back. 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 She is currently getting PT for her neck and back once every 2 weeks at [facility]- focus on muscle massage. Was diagnosed with irreversible arthritic disease at [place] this July. She was told that her body holds more calcium and that she should focus her strengthening more on function vs. Previous levels of strengthening as a personal injury attorney. ?? Method of Injury: Gradual onset Functional [...] incision sites TREATMENT TODAY: Therapeutic Exercise (CPT 93215) x 15 minutes: Patient was instructed on exercises, cued for proper technique, and given hand outs for exercises added to home program. Wall slides make her UT tighten up ?? Access Code: [email or web address] ?? Exercises Standing Shoulder External Rotation Stretch [...] Manual therapy, 1 or more regions (CPT 55657) x 15 minutes: Utilized for the purpose of increasing joint mobility, range of motion, and decreasing pain and soft tissue restrictions. ?? PROM to R shoulder in flexion, ER STM to UT Shoulder clock passive STM to parascap muscles STM to Pect muscle Tool assisted STM to R UT Hot Pack (CPT 66664): Moist hot pack applied to upper traps [...] awakening due to symptoms in 3-4 weeks. [place] hair and face in 6 weeks. Dress, [...] Diagnoses Diagnosis Aftercare [facility] - Primary Aftercare following surgery of the [facility] loskeletal system, NEC documented in this encounter Care Teams Relay Man Relationship Specialty Start Date End Date Britney Jarrett MD PCP - General 04/04/161999 [place] [address] documented as of this encounter
--- OUTSIDE RECORDS SUMMARY | 2022-05-04 05:31 | XMS_ITS | Encounter Summary ---
:1970 Author Organization [facility] Address [address] [place] [address] Care Team Providers Name Role Phone Britney Jarrett MD Primary Care Provider Reason for Visit Reason Comments Physical Therapy Therapies (Routine) - Closed Specialty Diagnoses / Procedures Referred By Contact Refer red To Contact Diagnoses Chronic right shoulder pain Terrell Mccarthy MD [address] [facility] [place], [place] [address] Referral ID Status Reason Start Date Expiration Date Visits Requ ested Visits Authorized [id number] Closed 10/14/2017 12/13/2017 1 1 Encounter Details Date Type Department Care Team Description 10/15/2017 Office Visit [facility] PT and Ed Cathi Carbone, Aftercar e following surgery of the musculoskeletal system (Primary Dx); Center, Physical PT Pain in joint of right shoulder Therapy [address] [place] [address] [phone] Social History Tobacco Use Types Packs/Day Years [...] Shoulder Evaluation/Plan of Care Visit Number: 1 [facility] [place]: 1 of 40 Initial Certification Period: [...] section (higher scores represent greater disability) History: oJsie Booker is a 47 y.o. female who [...] and back. 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 She is currently getting PT for her neck and back once every 2 weeks at [facility]- focus on muscle massage. Was diagnosed with irreversible arthritic disease at [place] this July. She was told that her body holds more calcium and that she should focus her strengthening more on function vs. 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 Method of Injury: Gradual onset Functional Limitations: [...] 2 weeks for neck and back at [facility]. No hx ofPT for her shoulder prior to surgery. Review of Systems: Dx of irreversible arthritic disease from [place] this past winter. Early stages of osteoporosis. [...] Deferred TREATMENT TODAY: Physical Therapy Evaluation (CPT 98236): An evaluation was performed. The patient was determined to have moderate complexity based on history, examination, clinical presentation of the patient and the PT's clinical decision making. The patient was educated on the condition, planned therapy intervention and the expectations from treatment. Goals were a collaborative effort of the therapist and patient. Therapeutic Exercise (CPT 78606) x 15 minutes: Patient was instructed on exercises, cued for proper technique, and given hand outs for exercises added to home program. Access Code: [email or web address] Exercises Median Nerve Flossing with just elbow [...] Manual therapy, 1 or more regions (CPT 07984) x 15 minutes: Utilized for the purpose of increasing joint mobility, range of motion, and decreasing pain and soft tissue restrictions. PROM to R shoulder in flexion, ER and abduction. PROM to R elbow (flexion/extension) and R forearm (supination/pronation) 1st rib mobilizations grade II-III Self Care/Home Mgmt (CPT 76455) x 10 minutes: Patient was instructed/educated on [...] awakening due to symptoms in 3-4 weeks. Vest hair and face in 6 weeks. Dress, [...] Cathi Carbone, PT 4:49 PM 10/15/2017 The engagement engineer is completed by the therapist and the referring clinician's electronic signature certifies medical necessity for the plan above. documented in this encounter Plan of Treatment Scheduled Referrals Name Type Priority Associated Diagnoses Order S [facility] Physical Therapy Referral Routine Chronic right shoulder p ain Ordered: 10/14/2017 documented as of this encounter Visit Diagnoses Diagnosis Aftercare following surgery of the muscu loskeletal system - Primary Aftercare following surgery of the muscu loskeletal system, NEC Pain in joint of right shoulder Pain in joint, shoulder region documented in this encounter Care Teams Attorney At Law Relationship Specialty Start Date End Date Britney Jarrett MD PCP - General 04/04/161999 [place] [address] documented as of this encounter
--- OUTSIDE RECORDS SUMMARY | 2022-05-04 05:31 | XMS_ITS | Encounter Summary ---
:1970 Author Organization [facility] Address [address] [place] [address] Care Team Providers Name Role Phone Britney Jarrett MD Primary Care Provider Reason for Referral Consult/Transfer Care (Routine) - Closed Specialty Diagnoses / Procedures Referred By Contact Refer red To Contact Diagnoses S/P shoulder surgery Terrell Mccarthy MD [address] [place] [address] [place] [address] 1 Referral ID Status Reason Start Date Expiration Date Visits Requ ested Visits Authorized [id number] Closed 10/21/2017 01/20/2019 1 1 Scheduling Instructions Your provider has recommended an appoint ment with [facility]. You may call [phone] to schedule your appoi ntment. If you do not schedule an appointment within the next 1 to 3 business days, we will call you to help arrange your appointment. We suggest you call your [employer] insurance company about your coverage and benefits for this appointment. Reason for Visit Reason Comments Questions regarding symptoms Encounter Details Date Type Department Care Team Description 10/21/2017 Telephone [facility] Terrell Mccarthy Ques tions (regarding GLENDALE MD symptoms) [address] [facility] [address] [place] [address] [place] [address] [facility] [place] [phone] (Wo rk) Social History Tobacco Use Types [...] status documented in this encounter Care Teams Manager Regional Relationship Specialty Start Date End Date Britney Jarrett MD PCP - General 04/04/161999 [place] [address] documented as of this encounter
--- OUTSIDE RECORDS SUMMARY | 2022-05-04 05:31 | XMS_ITS | Encounter Summary ---
:1970 Author Organization [facility] Address [address] [place] [address] Care Team Providers Name Role Phone Britney Jarrett MD Primary Care Provider Reason for Visit Reason Comments Physical Therapy Encounter Details Date Type Department Care Team Description 10/27/2017 Office Visit [facility] PT and Ed Leticia Roland, [facility], Physical FACIALIST surgery of the Therapy [address] [facility] musculoskeletal system [address] [place], [place] (Prim christine Dx) [address] [address] [place], [place] [phone] (Work) [phone] Social History Tobacco Use Types Packs/Day Years [...] of this encounter Progress Notes Leticia Roland, FACIALIST - 10/27/2017 7:30 AM CDT [facility] Physical Therapy Daily Note Visit Number: 4 [place]: 4 of 40 FACIALIST visit #2 ?? Initial Certification Period: 10/15/2017 [...] back. 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 She is currently getting PT for her neck and back once every 2 weeks at [facility]- focus on muscle massage. Was diagnosed with irreversible arthritic disease at [place] this July. She was told that her body holds more calcium and that she should focus her strengthening more on function vs. 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 ?? Method of Injury: Gradual onset Functional [...] incision sites TREATMENT TODAY: Therapeutic Exercise (CPT 79796) x 15 minutes: Patient was instructed on exercises, cued for proper technique, and given hand outs for exercises added to home program. Wall slides make her UT tighten up ?? Access Code: [email or web address] ?? Exercises Standing Shoulder External Rotation Stretch [...] awakening due to symptoms in 3-4 weeks. [place] hair and face in 6 weeks. Dress, [...] - Primary Aftercare following surgery of the [facility] loskeletal system, NEC documented in this encounter Care Teams Director Group Sales Relationship Specialty Start Date End Date Britney Jarrett MD PCP - General 04/04/161999 [place] [address] documented as of this encounter
--- OUTSIDE RECORDS SUMMARY | 2022-05-04 05:31 | XMS_ITS | Encounter Summary ---
:1970 Author Organization [facility] Address [address] [place] [address] Care Team Providers Name Role Phone Britney Jarrett MD Primary Care Provider Reason for Visit Reason Comments Knee Pain or Injury Left MRI Results Encounter Details Date Type Department Care Team Description 07/30/2016 Office Visit [facility] Richard Butts, Left kn ee pain, Urgent Care MD unspecified [address] [facility] [address] [facility] [address] chronicity (Primary [place], [place] [address] [place], [place] Dx) [phone] (Wo rk) Social History Tobacco Use Types [...] 36.2 ??C (97.2 ??F) 07/30/2016 10:01 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 Time, rest, therapy 2. Surgical referral 3. 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 SAB:TH C: R:07/30/16 15:34 CONFIRM#:147 TENANCE WORKER MUNICIPAL documented in this encounter Plan of Treatment Not on filedocumented as of this encounter Visit Diagnoses Diagnosis Left knee pain, unspecified chronicity - Primary documented in this encounter Care Teams Line Installer Repairer Relationship Specialty Start Date End Date Britney Jarrett MD PCP - General 04/04/16[address] [place] [address] documented as of this encounter
--- OUTSIDE RECORDS SUMMARY | 2022-05-04 05:31 | XMS_ITS | Encounter Summary ---
:1970 Author Organization [facility] Address [address] [place] [address] Care Team Providers Name Role Phone Britney Jarrett MD Primary Care Provider Reason for Visit Reason Comments Paperwork off work statement Encounter Details Date Type Department Care Team Description 09/17/2017 Notes/Orders [facility] Terrell Velasquez MD [address] [facility] [address] [place] [address] [place], [place] [address] [place] [address] [phone] (Wo rk) Social History Tobacco Use Types [...] work. Note faxed to Hanna Casper at [phone]. Patient will be off from October 02- October 24. Her surgery is October 02. Patient was notified it was faxed. [employer] SERVICES PRODUCER documented in this encounter Plan of Treatment Not on filedocumented as of this encounter Visit Diagnoses Not on filedocumented in this encounter Care Teams Machine Shop Worker Relationship Specialty Start Date End Date Britney Jarrett MD PCP - General 04/04/161999 [place] [address] documented as of this encounter
--- OUTSIDE RECORDS SUMMARY | 2022-05-04 05:31 | XMS_ITS | Encounter Summary ---
:1970 Author Organization [facility] Address [address] [place] [address] Care Team Providers Name Role Phone Britney Jarrett MD Primary Care Provider Reason for Visit Reason Comments Physical Therapy Encounter Details Date Type Department Care Team Description 10/29/2017 Office Visit [facility] PT and Ed Leticia Roland, [facility], Physical SOLAR DESIGNER surgery of the Therapy [address] [facility] musculoskeletal system [address] [place], [place] (Prim christine Dx) [address] [address] [place], [place] [phone] (Work) [phone] Social History Tobacco Use Types Packs/Day Years [...] of this encounter Progress Notes Leticia Roland, SOLAR DESIGNER - 10/29/2017 7:30 AM CDT [facility] Physical Therapy Daily Note Visit Number: 5 [place]: 5 of 40 SOLAR DESIGNER visit #3 ?? Initial Certification Period: 10/15/2017 [...] back. 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 She is currently getting PT for her neck and back once every 2 weeks at [facility]- focus on muscle massage. Was diagnosed with irreversible arthritic disease at [place] this July. She was told that her body holds more calcium and that she should focus her strengthening more on function vs. 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 ?? Method of Injury: Gradual onset Functional [...] incision sites TREATMENT TODAY: Therapeutic Exercise (CPT 82538) x 15 minutes: Patient was instructed on exercises, cued for proper technique, and given hand outs for exercises added to home program. Wall slides make her UT tighten up ?? Access Code: [email or web address] ?? Exercises Standing Shoulder External Rotation Stretch [...] awakening due to symptoms in 3-4 weeks. [place] hair and face in 6 weeks. Dress, [...] Diagnoses Diagnosis Aftercare following surgery of the [facility] loskeletal system - Primary Aftercare following surgery of the muscu loskeletal system, NEC documented in this encounter Care Teams Sample Mounter Relationship Specialty Start Date End Date Britney Jarrett MD PCP - General 04/04/161999 [place] [address] documented as of this encounter
--- OUTSIDE RECORDS SUMMARY | 2022-05-04 05:31 | XMS_ITS | Encounter Summary ---
:1970 Author Organization [facility] Address [address] [place] [address] Care Team Providers Name Role Phone Britney Jarrett MD Primary Care Provider Reason for Visit Procedure/Equipment (Routine) - Incomplete Specialty Diagnoses / Procedures Referred By Contact Refer red To Contact Diagnoses Postop check Terrell Mccarthy MD Procedures XR Shoulder Rt 2+ Views [address] [facility] [address] [place] [address] Referral ID Status Reason Start Date Expiration Date Visits V isits Requested Authorized [id number] Incomplete 11/18/2017 02/17/2019 1 1 Encounter Details Date Type Department Care Team Description 11/18/2017 Imaging [facility] Radiology Terrell Mccarthy MD Postop check [address] [facility] [address] [facility] [place] [address] [address] [address] [place] [address] [phone] (Wo rk) Social History Tobacco Use Types [...] surgery documented in this encounter Care Teams Tube Room Supervisor Relationship Specialty Start Date End Date Britney Jarrett MD PCP - General 04/04/16[address] [place] [address] documented as of this encounter
--- OUTSIDE RECORDS SUMMARY | 2022-05-04 05:31 | XMS_ITS | Encounter Summary ---
:1970 Author Organization [facility] Address [address] [place] [address] Care Team Providers Name Role Phone Britney Jarrett MD Primary Care Provider Encounter Details Date Type Department Care Team Description 04/24/2018 Lab Visit [facility] Osteoarthritis of multiple j oints, unspecified osteoarthritis type; [address] CardioMEMS Degenerative [place] [address] Social History Tobacco Use Types Packs/Day Years [...] - 04/24/2018 7:25 [place] [address] CLIA number [id number] Dao Ron MD LAB_1 Performing Organization Address [facility] Phon e Number PN SOFT [address] [place] [phone] (ABNORMAL) Total Iron and Iron Binding Capacity [...] - 04/24/2018 7:51 PM CDT Performed at [place] [address] [place] [address] CLIA number [id number] Dao Ron MD LAB_1 Performing Organization Address [facility]/ZIP Code Phon e Number PN SOFT [address] [place] [address] [place] - Calcium (04/24/2018 3:02 PM CDT) athologist Signature Calcium 9.7 8.4 - 10.4 PN SOFT mg/dL Specimen Anatomical Collection Method Collection Time Receive d Time (Source) Location / / Volume Laterality 04/24/2018 3:02 PM 8 3:02 CDT PM CDT Narrative PN SOFT - 04/24/2018 3:26 PM CDT Performed at [facility], [address] [place] [address] CLIA number [id number] Dao Ron MD LAB_1 Performing Organization Address [facility] Phon e Number PN SOFT [address] [place] [address] TSH with Free T4 (if TSH Abnormal) (04/24/2018 3:02 PM CDT) athologist Signature Thyroid 0.80 0.30 - PN SOFT Stimulating 4.50 Hormone uIU/mL Specimen Anatomical Collection Method Collection Time Receive d Time (Source) Location / / Volume Laterality 04/24/2018 3:02 PM 8 6:30 CDT PM CDT Narrative PN SOFT - 04/24/2018 7:25 PM CDT Performed at [facility] [address] [place] [address] CLIA number [id number] Dao Ron MD LAB_1 Performing Organization Address [facility] Phon e Number PN SOFT [address] [place] [address] VITD - Vitamin D (In house) (04/24/2018 [...] - 04/24/2018 6:58 PM CDT Performed at [facility], [address] [place] [address] CLIA number [id number] Dao Ron MD LAB_1 Performing Organization Address City/State/ZIP Code Phon e Number [facility] [address] [place] [address] documented in this encounter Visit Diagnoses Diagnosis Osteoarthritis of multiple joints, unspe cified osteoarthritis type Degenerative spinal arthritis (HRC) Spondylosis of unspecified site without mention of myelopathy documented in this encounter Care Teams Road Repairer Relationship Specialty Start Date End Date Britney Jarrett MD PCP - General 04/04/16[address] [place] [address] documented as of this encounter
--- OUTSIDE RECORDS SUMMARY | 2022-05-04 05:31 | XMS_ITS | Encounter Summary ---
:1970 Author Organization [facility] Address [address] [place] [address] Care Team Providers Name Role Phone Britney Jarrett MD Primary Care Provider Reason for Visit Reason Comments Physical Therapy Encounter Details Date Type Department Care Team Description 10/21/2017 Office Visit [facility] PT and Ed Cathi Carbone, Afterboubacar e following surgery of the musculoskeletal system (Primary Dx); Center, Physical PT Pain in joint of right shoulder Therapy [address] [place] [address] Social History Tobacco Use Types Packs/Day Years [...] Carbone, PT - 10/21/2017 10:45 AM CDT [facility] Physical Therapy Daily Note Visit Number: [...] back. 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 She is currently getting PT for her neck and back once every 2 weeks at [facility]- focus on muscle massage. Was diagnosed with irreversible arthritic disease at [place] this July. She was told that her body holds more calcium and that she should focus her strengthening more on function vs. 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 ?? Method of Injury: Gradual onset Functional [...] incision sites TREATMENT TODAY: Therapeutic Exercise (CPT 40074) x 15 minutes: Patient was instructed on exercises, cued for proper technique, and given hand outs for exercises added to home program. ?? Access Code: [email or web address] ?? Exercises Standing Shoulder External Rotation Stretch [...] Manual therapy, 1 or more regions (CPT 11135) x 15 minutes: Utilized for the purpose of increasing joint mobility, range of motion, and decreasing pain and soft tissue restrictions. ?? PROM to R shoulder in flexion, ER IASTM to common wrist extensor tendon Hot Pack (CPT 46432): Moist hot pack applied to upper traps [...] awakening due to symptoms in 3-4 weeks. [place] hair and face in 6 weeks. Dress, [...] region documented in this encounter Care Teams Broadcast News Producer Relationship Specialty Start Date End Date Britney Jarrett MD PCP - General 04/04/16[address] [place] [address] documented as of this encounter
--- OUTSIDE RECORDS SUMMARY | 2022-05-04 05:31 | XMS_ITS | Encounter Summary ---
:1970 Author Organization [facility] Address [address] [place] [address] Care Team Providers Name Role Phone Britney Jarrett MD Primary Care Provider Reason for Referral (Routine) - Closed Specialty Diagnoses / Procedures Referred By Contact Refer red To Contact Diagnoses Calcific tendinitis of left shoulder Calcific tendonitis Pain of both shoulder joints Andrade Marsh MD Procedures Triamcinolone Acet Inj Nos: (per 10 mg) [address] [place] [address] Referral ID Status Reason Start Date Expiration Date Visits Requ ested Visits Authorized [id number] Closed 03/18/2017 06/17/2018 1 1 Procedure/Equipment (Routine) - Incomplete Specialty Diagnoses / Procedures Referred By Contact Refer red To Contact Diagnoses Calcific tendinitis of left shoulder Calcific tendonitis Pain of both shoulder joints Andrade Marsh MD Procedures XR Shoulder Lt 2+ Views [address] [place] [address] Referral ID Status Reason Start Date Expiration Date Visits V isits Requested Authorized [id number] Incomplete 03/17/2017 06/16/2018 1 1 Reason for Visit Reason Comments SHOULDER PAIN Encounter Details Date Type Department Care Team Description 03/17/2017 Surgical Consult [facility] Andrade Marsh MD Pain of both shoulder joints (Primary Dx ); CENTER [address] [facility] Calcific tendinitis of left shoulder; [address] [place] Calcific tendonitis[place] [address] [phone] Social History Tobacco Use Types Packs/Day Years [...] Marsh MD - 03/17/2017 3:00 PM CDT [facility] Orthopaedic Surgery Consultation 03/17/2017 Chief Complaint: Left [...] with the patient; this is located in [facility] in [facility]. Physical Exam: Height: 1.524 m (5') [...] bilaterally, minimal pain. She had a painful Accomack's test bilaterally. She has full elbow extension [...] our treatment plan. cc: PATIENT SELF REFERRAL, [place] [address] Scribe Disclosure: Arsalan Burgos, am serving as [...] ty documented in this encounter Care Teams Rn Palliative Care Relationship Specialty Start Date End Date Britney Jarrett MD PCP - General 04/04/161999 [place] [address] documented as of this encounter
--- OUTSIDE RECORDS SUMMARY | 2022-05-04 05:31 | XMS_ITS | Encounter Summary ---
:1970 Author Organization [facility] Address [address] [place] [address] Care Team Providers Name Role Phone Britney Jarrett MD Primary Care Provider Reason for Visit Reason Comments CONSULT Consult/Transfer Care (Routine) - Closed Specialty Diagnoses / Procedures Referred By Contact Refer red To Contact Diagnoses S/P shoulder surgery Terrell Mccarthy MD [address] [facility] [address] [place], [place] [address] Referral ID Status Reason Start Date Expiration Date Visits Requ ested Visits Authorized [id number] Closed 10/21/2017 01/20/2019 1 1 Encounter Details Date Type Department Care Team Description 10/24/2017 Initial Consult [facility] Cristal Be, DOUBLE CUT SAWYER, COMPUTERIZED MILL MILL RECORDER [address] [facility] [address] [place] [id number] Right hand paresthesia (Primary Dx); [address] [facility] Micaela Nielsen Rn [place] [address] Social History Tobacco Use Types [...] this encounter Patient Instructions Patient InstructionsCristal Be, DOUBLE CUT SAWYER, COMPUTERIZED MILL MILL RECORDER - 10/24/2017 8:40 AM CDT 1. Investigations: [...] and sedating; typically is not used for watermaster pain management. In the short term, however, we will continue flexeril 1-2 times a day. --Supplements: -Start magnesium glycinate 400mg daily for mild to moderate muscle relaxant properties and synergy with prescription pain medications. This can most readily found at [employer], or via [employer]. This supplement does not require a prescription and is very low risk. --Opioids: In the [facility] Pain Program, we adhere to federal recommendations and do not prescribe residential opioids for chronic non-cancer pain. 5. Physical [...] 7. Integrative Health: Information offered on the [facility] Integrative Health Program which focuses on holistic approaches to health care focusing on the mind, body and spirit. Living Well consults, Healing touch, Pilates, Yoga, massage therapy and acupuncture are all available at [facility]. Call [phone] to schedule. 8. Follow Up: as needed documented in this encounter Progress Notes Cary Lyons RN - 10/24/2017 8:40 AM CDT VIDEOTAPE OPERATOR 10/24/17 Karmen Ferrara RN - 10/24/2017 8:40 [...] see your patient, Josie Booker at the [facility] Pain Program. She wasseen by Cristal Be CNP . Documents reviewed prior to seeing the patient included notes by Dr. Mccarthy. I also personally reviewed the patient-completed new patient questionnaire which has been imaged in to [facility]. As you know Josie Booker is [...] was evaluated by her spine surgeon at [facility] earlier this year. Carpal tunnel was considered [...] both for her shoulder at [facility] and for her neck at another [...] for her cervical spine in January at [facility]. Ultimately, the patient was referred by Dr. [...] ADL's. 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 She is currently on leave because of her shoulder surgery. There is not pending litigation related to the presenting pain condition. She is not on SSDI. Specialists Seen: The patient was referred by Dr. Mccarthy. Other providers seen for this condition include: neurosurgeon. At [facility] The patient does not have a controlled [...] on behavioral techniques to reduce pain at [facility] Interventional Techniques Employed: Epidural Steroid Injections these event performed at [facility] on both her low back and neck. [...] N/A Occupational History ??? Teacher [employer] Social History Main Topics ??? Smoking [...] scheme, I personally reviewed the patient's up-to-date VIDEOTAPE OPERATOR report for [place], as well as any other pertinent, available [...] by wearinga shoulder harness. EMG performed at [facility] in July 2017 for this issue was [...] and sedating; typically is not used for watermaster pain management. In the short term, however, we will continue flexeril 1-2 times a day. --Supplements: -Start magnesium glycinate 400mg daily for mild to moderate muscle relaxant properties and synergy with prescription pain medications. This can most readily found at [employer], or via [employer]. This supplement does not require a prescription and is very low risk. --Opioids: In the [facility], we adhere to federal recommendations and do not prescribe residential opioids for chronic non-cancer pain. 5. Physical [...] 7. Integrative Health: Information offered on the [facility] Integrative Health Program which focuses on holistic approaches to health care focusing on the mind, body and spirit. Living Well consults, Healing touch, Pilates, Yoga, massage therapy and acupuncture are all available at [facility]. Call [phone] to schedule. 8. Follow Up: as needed documented in this encounter Plan of Treatment Not on filedocumented as of this encounter Visit Diagnoses Diagnosis Right hand paresthesia - Primary Disturbance of skin sensation Cervical radiculopathy Brachial neuritis or radiculitis nos documented in this encounter Care Teams Forensic Computer Examiner Relationship Specialty Start Date End Date Britney Jarrett MD PCP - General 04/04/161999 [place] [address] documented as of this encounter
--- OUTSIDE RECORDS SUMMARY | 2022-05-04 05:31 | XMS_ITS | Encounter Summary ---
:1970 [facility] Address [address] [address] Care Team Providers Name Role Phone Britney Jarrett MD Primary Care Provider Reason for Visit Reason Comments SHOULDER PAIN Encounter Details Date Type Department Care Team Description 08/26/2017 Surgical Consult [facility] Terrell Mccarthy cific tendinitis of left shoulder (Primary Dx); TARUN Flores MD Calcific tendonitis [address] [place] [address] [phone] Social History Tobacco Use Types Packs/Day Years [...] 12:00 PM CST NAME: RAHAT THOMASON MR#: [id number] CSN: [id number] AUTHENTICATING CLINICIAN: Terrell Mccarthy MD CONFIRM #: [id number] LOC: 711 CLINIC PROGRESS NOTE DATE OF VISIT: 08/26/2017 : 1970 CHIEF COMPLAINT: Bilateral right greater than left shoulder pain. HISTORY OF PRESENT ILLNESS: Ms. Thomason is a very pleasant 47-year-old bghgd-evmx-flrrgiwy woman with a history of right greaterthan [...] away completely. She ultimately sought care at [facility], where she got bilateral biceps ultrasound- guided [...] arms. She has had an EMG at [facility] by her spine surgeon, who says that [...] She has a positive Speed's, Yergason's, and Gibson's. She has tenderness to palpation (2/3) at [...] surgical intervention. JPB:MEDPatricia C: R:08/26/17 18:07 CONFIRM#:[id number] DENT ASSOCIATE documented in this encounter Plan of Treatment Not on filedocumented as of this encounter Visit Diagnoses Diagnosis Calcific tendinitis of left shoulder - P rimary Calcifying tendinitis of shoulder Calcific tendonitis Calcium deposits in tendon and bursa documented in this encounter Care Teams Respiratory Therapist Assistant Relationship Specialty Start Date End Date Britney Jarrett MD PCP - General 04/04/161999 [place] [address] documented as of this encounter
--- OUTSIDE RECORDS SUMMARY | 2022-05-04 05:31 | XMS_ITS | Encounter Summary ---
:1970 Author Organization [facility] Address [address] [place] [address] Care Team Providers Name Role Phone Britney Jarrett MD Primary Care Provider Reason for Referral Therapies (Routine) - Closed Specialty Diagnoses / Procedures Referred By Contact Refer red To Contact Diagnoses Calcific tendinitis Andrade Marsh MD [address] [place] [address] [place], [place] [address] Referral ID Status Reason Start Date Expiration Date Visits Requ ested Visits Authorized [id number] Closed 09/02/2016 11/01/2016 1 1 KE ON MACHINE OPERATOR (Routine) - Closed Specialty Diagnoses / Procedures Referred By Contact Refer red To Contact Diagnoses Calcific tendinitis Andrade Marsh MD Procedures Triamcinolone Acet Inj Nos: (per 10 mg) [address] [facility] [place] [place] [address] Referral ID Status Reason Start Date Expiration Date Visits Requ ested Visits Authorized [id number] Closed 09/07/2016 12/07/2017 1 1 KE ON MACHINE OPERATOR Reason for Visit Reason Comments SHOULDER PAIN Encounter Details Date Type Department Care Team Description 09/02/2016 Office Visit [facility] Andrade Marsh MD Calcific tendinitis, CENTER [address] right shoulder [address] [place], [place] (Primary Dx) [place], [place] [address] [phone] (Wo rk) Social History Tobacco Use Types [...] 9:24 AM CST NAME: RAHAT THOMASON MR#: [id number] CSN: [id number] AUTHENTICATING CLINICIAN: Andrade Marsh MD CONFIRM #: [id number] LOC: 711 CLINIC PROGRESS NOTE DATE OF VISIT: 09/02/2016 : 1970 INTERVAL HISTORY: Ms. Thomason is seen in follow up today. In the interval time period she has undergone an MRI arthrogram of her shoulder. There has been no significant change in her symptoms. MRI: MRI is reviewed from [facility] dated 08/29/2016. MRI demonstrates calcific tendinitis involving [...] treatment plan. GBF:JOSELUIS C: R:09/07/16 13:47 CONFIRM#:[id number] KE ON MACHINE OPERATOR documented in this encounter Plan of Treatment Scheduled Referrals Name Type Priority Associated Diagnoses Order S [facility] Physical Therapy Referral Routine Calcific tendinitis, rig ht Ordered: 09/02/2016 shoulder documented as of this encounter Visit Diagnoses Diagnosis Calcific tendinitis, right shoulder - Pr imary Calcium deposits in tendon and bursa documented in this encounter Care Teams Technical Project Lead Relationship Specialty Start Date End Date Britney Jarrett MD PCP - General 04/04/161999 [place] [address] documented as of this encounter
--- OUTSIDE RECORDS SUMMARY | 2022-05-04 05:31 | XMS_ITS | Encounter Summary ---
:1970 Author Organization [facility] Address [address] [place] [address] Care Team Providers Name Role Phone Britney Jarrett MD Primary Care Provider Reason for Visit Procedure/Equipment (Routine) - Incomplete Specialty Diagnoses / Procedures Referred By Contact Refer red To Contact Diagnoses Calcific tendinitis of left shoulder Calcific tendonitis Pain of both shoulder joints Andrade Marsh MD Procedures XR Shoulder Lt 2+ Views [address] [facility] [place], [place] [address] Referral ID Status Reason Start Date Expiration Date Visits V isits Requested Authorized [id number] Incomplete 03/17/2017 06/16/2018 1 1 Encounter Details Date Type Department Care Team Description 03/17/2017 Imaging [facility] Andrade Marsh MD Left shoulder pain, [address] [facility] [address] [facility] unspecified chronicity [place], [place] [address] [place] [address] [phone] (Wo rk) Social History Tobacco Use Types [...] ty documented in this encounter Care Teams Employment Services Director Relationship Specialty Start Date End Date Britney Jarrett MD PCP - General 04/04/161999 [place] [address] documented as of this encounter
--- OUTSIDE RECORDS SUMMARY | 2022-05-04 05:31 | XMS_ITS | Encounter Summary ---
:1970 Author Organization [facility] Address [address] [place] [address] Care Team Providers Name Role Phone Britney Jarrett MD Primary Care Provider Encounter Details Date Type Department Care Team Description 10/02/2017 Hospital Encounter [facility] Terrell Mccarthy, [address] [facility] Kevin trevizo MD [place], [place] [address] [address] [facility] [phone] [place] [address] (Wo rk) Social History Tobacco Use Types [...] Comments Blood Pressure 108/62 10/02/2017 1:00 PM OFFENDER EMPLOYMENT SPECIALIST Pulse 108 10/02/2017 1:00 PM OFFENDER EMPLOYMENT SPECIALIST Temperature 36.7 ??C (98 ??F) 10/02/2017 1:35 PM OFFENDER EMPLOYMENT SPECIALIST Respiratory Rate 14 10/02/2017 1:00 PM OFFENDER EMPLOYMENT SPECIALIST Oxygen Saturation 96% 10/02/2017 1:00 PM OFFENDER EMPLOYMENT SPECIALIST Inhaled Oxygen Concentration - - Weight 60.3 kg (133 lb) 10/02/2017 9:00 AM OFFENDER EMPLOYMENT SPECIALIST Height 150.5 cm (4' 11.25) 10/02/2017 9:00 AM OFFENDER EMPLOYMENT SPECIALIST Body Mass Index 26.64 10/02/2017 9:00 AM OFFENDER EMPLOYMENT SPECIALIST documented in this encounter Discharge Instructions Discharge [...] you saw him pre-operatively for further details. NDER EMPLOYMENT SPECIALIST documented in this encounter Medications at Time [...] 12:00 PM CST NAME: JOSIE THOMASON MR#: [id number] CSN: [id number] AUTHENTICATING CLINICIAN: Terrell Mccarthy MD CONFIRM #: [id number] LOC: 725 OPERATIVE REPORT DATE OF OPERATION: [...] at that visit. CC: ARTURO ODONNELL MD [address] [place] [id number] NIYAB:WILDER C: R:10/02/17 11:24 CONFIRM#:[id number] NDER EMPLOYMENT SPECIALIST documented in this encounter Plan of Treatment Scheduled Orders Name Type Priority Associated Diagnoses Order S chedule POCT Glucose: Point of Care Routine Once today st arting now for 1 Occurrences s tarting 10/02/2017 unti l 10/02/2017 documented as of this encounter Procedures Procedure Name Priority Date/Time Associated Diagnosis Comme nts ARTHROSCOPIC EXCISION 10/02/2017 10:05 AM Shoulder leatha n, right DISTAL CLAVICLE OFFENDER EMPLOYMENT SPECIALIST ARTHROSCOPIC SHOULDER 10/02/2017 10:05 AM Shoulder leatha n, right REPAIR ROTATOR CUFF OFFENDER EMPLOYMENT SPECIALIST ARTHROSCOPY SHOULDER WITH 10/02/2017 10:05 AM Shoulder pain, right BICEPS TENODESIS OFFENDER EMPLOYMENT SPECIALIST ARTHROSCOPIC SUBACROMIAL 10/02/2017 10:05 AM Shoulder pain, right DECOMPRESSION SHOULDER OFFENDER EMPLOYMENT SPECIALIST documented in this encounter Visit Diagnoses Not on filedocumented in this encounter Administered Medications Inactive Administered Medications - up to 3 most recent administrations Medication Order MAR Action Action Date Dose Rate Site acetaminophen (TYLENOL) tablet Given 10/02/2017 9:45 AM OFFENDER EMPLOYMENT SPECIALIST 1,00 0 mg 1,000 mg 1,000 mg, Oral, ONCE, On Yadira 10/02/17 at 0930, For 1 dose, Give in Preop., Pre-op EPINEPHrine 10 mg in sodium Given 10/02/2017 10:28 AM OFFENDER EMPLOYMENT SPECIALIST 10 mL Right Shoulder chloride 0.9 % 3,000 mL ONCE PRN, Starting on Yadira 10/02/17 at 1018, Intra-op lactated ringers infusion Started 10/02/2017 10:36 AM OFFENDER EMPLOYMENT SPECIALIST Intravenous, at 30 mL/hr, CONTINUOUS, Starting on Yadira 10/02/17 at 0930, Pre-op Started 10/02/2017 9:38 AM OFFENDER EMPLOYMENT SPECIALIST documented in this encounter Active and Recently Administered Medications Times are shown in OFFENDER EMPLOYMENT SPECIALIST. Scheduled Medication Order 09/30/2017 10/01/2017 10/02/2017 acetaminophen [...] (SUBLIMAZE) injection 25-50 mcg 25-50 mcg, Intravenous, [id number], Other, Moderate to Severe Pain (pain score [...] (DEMEROL) injection 12.5 mg 12.5 mg, Intravenous, [id number], Shiverin g, Starting Yadira 10/02/17 at 0852, For 2 doses, Maximum cumulative dose is 25 mg. Do not give to patients receiving MAO inhibitors (e.g. phenelzine (NARDIL), tranylc ypromine (PARNATE), selegiline (ELDEPRYL))., PACU/Recovery morphine injectable 1-2 mg 1-2 mg, Intravenous, [id number], Other, Mo derate to Severe Pain (pain [...] PACU/Recovery documented in this encounter Care Teams Contract Clerk Relationship Specialty Start Date End Date Britney Jarrett MD PCP - General 04/04/161999 [place] [address] documented as of this encounter
--- OUTSIDE RECORDS SUMMARY | 2022-05-04 05:31 | XMS_ITS | Encounter Summary ---
:1970 Author Organization [facility] Address [address] [place] [address] Care Team Providers Name Role Phone Britney Jarrett MD Primary Care Provider Reason for Visit Reason Comments Questions FOLLOWING PAIN CONSULT Encounter Details Date Type Department Care Team Description 11/07/2017 Telephone [facility] Terrell Mccarthy, Talisha price (FOLLOWING CENTER MD PAIN CONSULT) [address] [facility] [address] [place] [address] [place] [address] [place], [place] [phone] (Wo rk) Social History Tobacco Use Types [...] on filedocumented in this encounter Care Teams Air Conditioning Unit Assembler Relationship Specialty Start Date End Date Britney Jarrett MD PCP - General 04/04/161999 [place] [address] documented as of this encounter
--- OUTSIDE RECORDS SUMMARY | 2022-05-04 05:31 | XMS_ITS | Encounter Summary ---
:1970 Author Organization [facility] Address [address] [place] [address] Care Team Providers Name Role Phone Britney Jarrett MD Primary Care Provider Encounter Details Date Type Department Care Team Description 10/02/2017 Surgery [facility] Terrell Mccarthy P, RIGHT shoulder [address] [facility] Kevin trevizo MD arthroscopic [place], [place] [address] [address] [facility] subacromial [phone] [place], [place] decompressio n, biceps [address] tenodesis, calcium [phone] (Wo rk) debridement, possible rotator c uff [...] Comments Blood Pressure 111/63 10/02/2017 11:50 AM CRUDE TESTER Pulse 106 10/02/2017 11:50 AM CRUDE TESTER Temperature 36.6 ??C (97.9 ??F) 10/02/2017 11:34 AM CRUDE TESTER Respiratory Rate 14 10/02/2017 11:50 AM CRUDE TESTER Oxygen Saturation 96% 10/02/2017 11:50 AM CRUDE TESTER Inhaled Oxygen Concentration - - Weight 60.3 kg (133 lb) 10/02/2017 9:00 AM CRUDE TESTER Height 150.5 cm (4' 11.25) 10/02/2017 9:00 AM CRUDE TESTER Body Mass Index 26.64 10/02/2017 9:00 AM CRUDE TESTER documented in this encounter Discharge Instructions Discharge [...] you saw him pre-operatively for further details. E TESTER documented in this encounter Medications at Time [...] 12:00 PM CST NAME: JOSIE THOMASON MR#: [id number] CSN: [id number] AUTHENTICATING CLINICIAN: Terrell Mccarthy MD CONFIRM #: [id number] LOC: 725 OPERATIVE REPORT DATE OF OPERATION: [...] that visit. CC: ARTURO ODONNELL MD [address] [place] [address] JPB:WILDER C: R:10/02/17 11:24 CONFIRM#:[id number] E TESTER documented in this encounter Plan of Treatment Scheduled Orders Name Type Priority Associated Diagnoses Order S chedule POCT Glucose: Point of Care Routine Once today st arting now for 1 Occurrences s tarting 10/02/2017 unti l 10/02/2017 documented as of this encounter Procedures Procedure Name Priority Date/Time Associated Diagnosis Comme nts ARTHROSCOPIC EXCISION 10/02/2017 10:05 AM Shoulder leatha n, right DISTAL CLAVICLE CRUDE TESTER ARTHROSCOPIC SHOULDER 10/02/2017 10:05 AM Shoulder leatha n, right REPAIR ROTATOR CUFF CRUDE TESTER ARTHROSCOPY SHOULDER WITH 10/02/2017 10:05 AM Shoulder pain, right BICEPS TENODESIS CRUDE TESTER ARTHROSCOPIC SUBACROMIAL 10/02/2017 10:05 AM Shoulder pain, right DECOMPRESSION SHOULDER CRUDE TESTER documented in this encounter Visit Diagnoses Diagnosis Shoulder pain, right Pain in joint, shoulder region documented in this encounter Administered Medications Inactive Administered Medications - up to 3 most recent administrations Medication Order MAR Action Action Date Dose Rate Site acetaminophen (TYLENOL) tablet Given 10/02/2017 9:45 AM CRUDE TESTER 1,00 0 mg 1,000 mg 1,000 mg, Oral, ONCE, On Yadira 10/02/17 at 0930, For 1 dose, Give in Preop., Pre-op EPINEPHrine 10 mg in sodium Given 10/02/2017 10:28 AM CRUDE TESTER 10 mL Right Shoulder chloride 0.9 % 3,000 mL ONCE PRN, Starting on Yadira 10/02/17 at 1018, Intra-op lactated ringers infusion Started 10/02/2017 10:36 AM CRUDE TESTER Intravenous, at 30 mL/hr, CONTINUOUS, Starting on Yadira 10/02/17 at 0930, Pre-op Started 10/02/2017 9:38 AM CRUDE TESTER documented in this encounter Active and Recently Administered Medications Times are shown in CRUDE TESTER. Scheduled Medication Order 09/30/2017 10/01/2017 10/02/2017 acetaminophen [...] (SUBLIMAZE) injection 25-50 mcg 25-50 mcg, Intravenous, [id number], Other, Moderate to Severe Pain (pain score [...] (DEMEROL) injection 12.5 mg 12.5 mg, Intravenous, [id number], Shiverin g, Starting Yadira 10/02/17 at 0852, For 2 doses, Maximum cumulative dose is 25 mg. Do not give to patients receiving MAO inhibitors (e.g. phenelzine (NARDIL), tranylc ypromine (PARNATE), selegiline (ELDEPRYL))., PACU/Recovery morphine injectable 1-2 mg 1-2 mg, Intravenous, [id number], Other, Mo derate to Severe Pain (pain [...] PACU/Recovery documented in this encounter Care Teams Healthcare Consultant Relationship Specialty Start Date End Date Britney Jarrett MD PCP - General 04/04/161999 [place] [address] documented as of this encounter
[2022-05-04] MEDS: ONDANSETRON 2 MG/ML inj 4 MG IVP (05:32)
--- OUTSIDE RECORDS SUMMARY | 2022-05-04 05:32 | XMS_ITS | Encounter Summary ---
:1970 Author Organization [facility] Address [address] [place] [address] Care Team Providers Name Role Phone Britney Jarrett MD Primary Care Provider Reason for Visit Reason Comments Back Pain Encounter Details Date Type Department Care Team Description 01/02/2016 Office Visit [facility] Manan Lyman Facet arthropathy, 8[address] [facility] MD [place] lumbar (Primary Dx) [place], [place] [address] [phone] [address] [place] [address] Social History Tobacco Use Types [...] contact Vicky for all administrative questions at [phone] Please contact the Spine Nurse for all medical related questions at [phone] Medication Requests: Prescriptions are not filled on [...] 01/09/16 0744 Note Time: 01/04/161449 Status: Signed Ship Fitter: Manan Pearce MD (Physician) NAME: RAHAT THOMASON MR#: [id number] CSN: [id number] AUTHENTICATING CLINICIAN: Manan Pearce MD CONFIRM #: [id number] LOC: 711 CLINIC PROGRESS NOTE DATE OF VISIT: 01/02/2016 : 1970 Ms. Thomason presents today in followup. Since last being seen she was seen at the [facility]. They apparently did PSIS joint injections [...] hy documented in this encounter Care Teams Tapper Shank Relationship Specialty Start Date End Date Britney Jarrett MD PCP - General 04/15/13 04/03/161999 [place] [address] documented as of this encounter
--- OUTSIDE RECORDS SUMMARY | 2022-05-04 05:32 | XMS_ITS | Encounter Summary ---
:1970 Author Organization [facility] Address [address] [address] Care Team Providers Name Role Phone Britney Jarrett MD Primary Care Provider Reason for Visit Reason Comments RESULTS, TEST Encounter Details Date Type Department Care Team Description 06/20/2014 Telephone [facility] Sorin Flores DO RESULTS, TEST Care [address] [place] [address] [address] [place] [address] [place] [id number] [phone] Social History Tobacco Use Types Packs/Day Years Used Date Smoking Tobacco: Never Alcohol Use Standard Drinks/Week Comments Not Asked 0 (1 standard drink = 0.6 oz pure alcoho l) 1/mo Sex Assigned at Date Recorded Not on file documented as of this encounter Nursing Notes Breonna Jimenez - 06/20/2014 3:56 PM CST Pt' calls requesting MRI results. Pt was scheduled with Dr. Flores for tomorrow 06/21/14 at 4pm to review MRI results. ING MILL OPERATOR documented in this encounter Plan of Treatment Not on filedocumented as of this encounter Visit Diagnoses Not on filedocumented in this encounter Care Teams J2Ee Programmer Relationship Specialty Start Date End Date Britney Jarrett MD PCP - General 04/15/13 04/03/161999 [place] [address] documented as of this encounter
--- OUTSIDE RECORDS SUMMARY | 2022-05-04 05:32 | XMS_ITS | Encounter Summary ---
:1970 Author Organization [facility] Address [address] [place] [address] Care Team Providers Name Role Phone Britney Jarrett MD Primary Care Provider Encounter Details Date Type Department Care Team Description 06/18/2014 Imaging [facility] Knee pain [address] [place], [place] [address] Social History Tobacco Use Types [...] PM Knee pain Results for this COMPARISON SPONGE MAKER procedure are i n the results section. XR KNEE RT 3 VIEWS Routine 06/18/2014 12:22 PM Knee pain Re sults for this SPONGE MAKER procedure are i n the results section. documented in this encounter Results XR Knee Lt 1-2 Views Comparison (06/18/2014 12:22 PM SPONGE MAKER) Anatomical Region Laterality Modality Lower Extremity, Knee Other Specimen (Source) Anatomical Location Collection Method / Collectio n Time Received Time / Laterality Volume Narrative 06/19/2014 10:07 AM SPONGE MAKER Three views of the right knee. AP, [...] Knee Rt 3 Views (06/18/2014 12:22 PM SPONGE MAKER) Anatomical Region Laterality Modality Lower Extremity, Knee Other Specimen (Source) Anatomical Location Collection Method / Collectio n Time Received Time / Laterality Volume Narrative 06/19/2014 10:07 AM SPONGE MAKER Three views of the right knee. AP, [...] leg documented in this encounter Care Teams Food Quality Technician Relationship Specialty Start Date End Date Britney Jarrett MD PCP - General 04/15/13 04/03/161999 [place] [address] documented as of this encounter
--- OUTSIDE RECORDS SUMMARY | 2022-05-04 05:32 | XMS_ITS | Encounter Summary ---
:1970 [facility] Address [address], [place] [address] Care Team Providers Name Role Phone Britney Jarrett MD Primary Care Provider Reason for Visit Reason Comments Refill Encounter Details Date Type Department Care Team Description 11/26/2014 Refill [facility] Bandar Hernandez MD Refill [address] [facility] [address] [facility] [place] [address] [place] [address] [phone] (Wo rk) Social History Tobacco Use Types [...] on filedocumented in this encounter Care Teams Operations Trainer Relationship Specialty Start Date End Date Britney Jarrett MD PCP - General 04/15/13 04/03/161999 [place] [address] documented as of this encounter
--- OUTSIDE RECORDS SUMMARY | 2022-05-04 05:32 | XMS_ITS | Encounter Summary ---
:1970 Author Organization [facility] Address [address], [place] [address] Care Team Providers Name Role Phone Britney Jarrett MD Primary Care Provider Reason for Visit Reason Comments Back Pain Encounter Details Date Type Department Care Team Description 11/02/2015 Office Visit [facility] Doni Conway MD Cervical radiculitis CENTER [address] [place] [address] (Primary Dx) [address] [place], [place] [address] [phone] (Wo rk) Social History Tobacco Use Types Packs/Day Years Used Date Smoking Tobacco: Never Alcohol Use Standard Drinks/Week Comments Not Asked 0 (1 standard drink = 0.6 oz pure alcoho l) 1/mo Sex Assigned at Date Recorded Not on file documented as of this encounter Patient Instructions Patient InstructionsPhiTammy baez, ATC - 11/02/2015 3:[address] Doni Conway MD [facility]ope[facility] Spine Operations Director: Jess Webb Please contact Jess for all administrative questions at [phone] Please contact the Spine Nurse for all medical related questions at [phone] Office Hours: and Friday Medication Requests: Prescriptions [...] 1300 Note Time: 11/14/15 0803 Status: Signed Flight Communications Operator: Doni Conway MD (Physician) NAME: RAHAT THOMASON MR#: [id number] CSN: [id number] AUTHENTICATING CLINICIAN: Doni Conway MD CONFIRM #: [...] test bilaterally. IMAGING: Cervical MRI performed at [facility] on 03/02/2014 was reviewed. Please see [...] - 11/02/2015 4:40 PM CDT Performed at [facility], [facility] [place] [address] CLIA number [id number] Doni Conway MD LAB_1 Performing Organization Address City/State/ZIP Code Phon e Number HP CONVERSION ESR (11/02/2015 3:37 PM CDT) [facility] Method Time Signature Sedimentation Rate 2 0 - 20 HP CONVERSI ON mm/hr Specimen Anatomical Collection Method Collection Time Receive d Time (Source) Location / / Volume Laterality 11/02/2015 3:37 PM 6 4:15 CDT PM CDT Narrative HP CONVERSION - 11/02/2015 4:58 PM CDT Performed at [address] [address] CLIA number [id number] Doni Conway MD LAB_1 Performing Organization Address City/[facility] Phon e Number HP CONVERSION documented in this encounter Visit Diagnoses Diagnosis Cervical radiculitis - Primary Brachial neuritis or radiculitis nos documented in this encounter Care Teams Rigging Worker Relationship Specialty Start Date End Date Britney Jarrett MD PCP - General 04/15/13 04/03/161999 [place] [address] documented as of this encounter
--- OUTSIDE RECORDS SUMMARY | 2022-05-04 05:32 | XMS_ITS | Encounter Summary ---
:1970 Author Organization [facility] Address [address] [place] [address] Care Team Providers Name Role Phone Britney Jarrett MD Primary Care Provider Reason for Visit Reason Comments Refill Encounter Details Date Type Department Care Team Description 06/18/2015 Refill [facility] Bandar Hernandez MD Refill [address] [facility] [address] [facility] [place] [address] [address] [place] [address] [phone] (Wo rk) Social History Tobacco Use Types [...] and further treatment options. Activity modifications discussed. AL DEVELOPER documented in this encounter Plan of Treatment Not on filedocumented as of this encounter Visit Diagnoses Not on filedocumented in this encounter Care Teams Back Winder Relationship Specialty Start Date End Date Britney Jarrett MD PCP - General 04/15/13 04/03/161999 [place] [address] documented as of this encounter
--- OUTSIDE RECORDS SUMMARY | 2022-05-04 05:32 | XMS_ITS | Encounter Summary ---
:1970 Author Organization [facility] Address [address] [address] Care Team Providers Name Role Phone Britney Jarrett MD Primary Care Provider Encounter Details Date Type Department Care Team Description 06/22/2015 Notes/Orders [facility] Simin Higginbotham, RN [address] [place], [place] [address] Social History Tobacco Use Types [...] on filedocumented in this encounter Care Teams Put In Beat Adjuster Relationship Specialty Start Date End Date Britney Jarrett MD PCP - General 04/15/13 04/03/161999 [place] [address] documented as of this encounter
--- OUTSIDE RECORDS SUMMARY | 2022-05-04 05:32 | XMS_ITS | Encounter Summary ---
:1970 Author Organization [facility] Address [address] [place] [address] Care Team Providers Name Role Phone Britney Jarrett MD Primary Care Provider Reason for Visit Reason Comments Questions Encounter Details Date Type Department Care Team Description 10/03/2015 Telephone [facility] TER Doni Conway MD Questions [address] [facility] [address] [place] [address] 1 [place] [address] [phone] (Wo rk) Social History Tobacco Use Types Packs/Day Years Used Date Smoking Tobacco: Never Alcohol Use Standard Drinks/Week Comments Not Asked 0 (1 standard drink = 0.6 oz pure alcoho l) 1/mo Sex Assigned at Date Recorded Not on file documented as of this encounter Nursing Notes Jacinda Carrillo RN - 10/04/2015 10:22 AM CST Injection ordered, left VM for patient. RTISING AGENCY MANAGER Doni Conway MD - 10/04/2015 9:16 AM CST Will schedule for bilateral L3-4 and L4-5 facet injections, follow up in clinic 2 weeks after injection. Jacinda Dixon RN - 10/03/2015 2:09 PM CST Patient calling, wanting to know if you were able to discuss her case with one of our spine surgeons. Last seen on 09/28/2015, no dictation available this time. RTISING AGENCY MANAGER documented in this encounter Plan of Treatment Not on filedocumented as of this encounter Visit Diagnoses Diagnosis Bilateral low back pain without sciatica - Primary documented in this encounter Care Teams Tariff Supervisor Relationship Specialty Start Date End Date Britney Jarrett MD PCP - General 04/15/13 04/03/161999 [place] [address] documented as of this encounter
--- OUTSIDE RECORDS SUMMARY | 2022-05-04 05:32 | XMS_ITS | Encounter Summary ---
:1970 Author Organization [facility] Address [address] [place] [address] Care Team Providers Name Role Phone Britney Jarrett MD Primary Care Provider Reason for Visit Procedure/Equipment (Routine) - Incomplete Specialty Diagnoses / Procedures Referred By Contact Refer red To Contact Diagnoses Chronic pain of left knee Richard Butts MD Procedures MR Knee Lt WO IV Cont [address] [facility] [place] [address] Referral ID Status Reason Start Date Expiration Date Visits V isits Requested Authorized [id number] Incomplete 07/29/2016 10/28/2017 1 1 Encounter Details Date Type Department Care Team Description 07/29/2016 Imaging [facility] MRI Richard Butts MD Chronic pain of left [address] [facility] [address] [facility] [place] [address] [address] [place] [address] [phone] (Wo rk) Social History Tobacco Use Types [...] of le ft Results for this CONT ORACLE E BUSINESS DEVELOPER knee procedure are i n the results section. documented in this encounter Results MR Knee Lt WO IV Cont (07/29/2016 4:50 PM ORACLE E BUSINESS DEVELOPER) Anatomical Region Laterality Modality Lower Extremity, Knee, Skeletal, Thigh, Leg Left Magnetic Resonance Specimen (Source) Anatomical Collection Method Collection Time Re ceived Time Location / / Volume Laterality 07/29/2016 4:28 PM ORACLE E BUSINESS DEVELOPER Impressions 07/30/2016 8:42 AM ORACLE E BUSINESS DEVELOPER IMPRESSION: 1. Mild strain in the musculotendinous p ortion of the popliteus and adjacent posterior lateral joint capsule. 2. No other evidence of significant liga mentous or tendinous injury. 3. 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 4. Small tears in the medial and lateral menisci as described above. Narrative 07/30/2016 8:42 AM ORACLE E BUSINESS DEVELOPER TECHNIQUE: Routine MRI of the left knee [...] leg documented in this encounter Care Teams Aviation Safety Officer Relationship Specialty Start Date End Date Britney Jarrett MD PCP - General 04/04/161999 [place] [address] documented as of this encounter
--- OUTSIDE RECORDS SUMMARY | 2022-05-04 05:32 | XMS_ITS | Encounter Summary ---
:1970 Author Organization [facility] Address [address], [place] [address] Care Team Providers Name Role Phone Britney Jarrett MD Primary Care Provider Reason for Visit Reason Comments Post-Op Follow Up Call Encounter Details Date Type Department Care Team Description 10/18/2015 Telephone [facility] Frances Reddy RN Post-Op Follow Up Call [address] [place], [place] [address] Social History Tobacco Use Types [...] on filedocumented in this encounter Care Teams Locomotive Mechanic Apprentice Relationship Specialty Start Date End Date Britney Jarrett MD PCP - General 04/15/13 04/03/161999 [place] [address] documented as of this encounter
--- OUTSIDE RECORDS SUMMARY | 2022-05-04 05:32 | XMS_ITS | Encounter Summary ---
:1970 Author Organization [facility] Address [address], [place] [address] Care Team Providers Name Role Phone Britney Jarrett MD Primary Care Provider Reason for Visit Reason Comments Pre-procedure Call Encounter Details Date Type Department Care Team Description 11/22/2015 Telephone [facility] Frances Reddy RN Pre-procedure Call [address] [place], [place] [address] Social History Tobacco Use Types Packs/Day Years Used Date Smoking Tobacco: Never Alcohol Use Standard Drinks/Week Comments Not Asked 0 (1 standard drink = 0.6 oz pure alcoho l) 1/mo Sex Assigned at Date Recorded Not on file documented as of this encounter Plan of Treatment Not on filedocumented as of this encounter Visit Diagnoses Not on filedocumented in this encounter Care Teams Associate Vice President Relationship Specialty Start Date End Date Britney Jarrett MD PCP - General 04/15/13 04/03/161999 [place] [address] documented as of this encounter
--- OUTSIDE RECORDS SUMMARY | 2022-05-04 05:32 | XMS_ITS | Encounter Summary ---
:1970 Author Organization [facility] Address [address] [place] [address] Care Team Providers Name Role Phone Britney Jarrett MD Primary Care Provider Reason for Visit Reason Comments Back Pain Neck Pain Encounter Details Date Type Department Care Team Description 12/05/2015 Surgical Consult [facility] Thiago Pearce stenosis of CENTER Manan Harmon MD lumbosacral region [address] [place] [address] (Primary Dx) [place], [place] [address] [facility] [address] [place] [address] Social History Tobacco Use Types [...] contact Vicky for all administrative questions at [phone] Please contact the Spine Nurse for all medical related questions at [phone] Medication Requests: Prescriptions are not filled on [...] 12/19/15 1042 Note Time: 12/07/151435 Status: Signed Cloth Classer: Manan Pearce MD (Physician) NAME: RAHAT THOMASON MR#: [id number] CSN: [id number] AUTHENTICATING CLINICIAN: Manan Pearce MD CONFIRM #: [id number] LOC: 711 CLINIC PROGRESS NOTE DATE OF VISIT: 12/05/2015 : 1970 Ms. Thomason presents today with a chief complaint of low back pain with paresthesias into bilateral extremities. 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 Niko had a bilateral intraarticular facet joint injections at L3-4, also attempted at L4-5 but unsuccessful. The facet joint injections at L3-4 were not significantly diagnostic for her nor did they provide any significant relief at this point. She is following with the surgeons and team down at [facility] as well and they performed an EMG [...] consumes alcohol. 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 REVIEW OF SYSTEMS: A 13-point review [...] lumbar spine available for review in the [email or web address] PACS system here today does reveal posterior [...] as well as options moving forward. I, Kenotn Yanes PA-C, am serving as a scribe [...] claudication documented in this encounter Care Teams Product Line Manager Relationship Specialty Start Date End Date Britney Jarrett MD PCP - General 04/15/13 04/03/16[address] [place] [id number] documented as of this encounter
--- OUTSIDE RECORDS SUMMARY | 2022-05-04 05:32 | XMS_ITS | Encounter Summary ---
:1970 Author Organization [facility] Address [address] [place] [address] Care Team Providers Name Role Phone Britney Jarrett MD Primary Care Provider Reason for Visit Reason Comments Questions Encounter Details Date Type Department Care Team Description 12/18/2015 Telephone [facility] Manan Lyman MD Questions [address] [facility] [address] [facility] [address] [place], [place] [address] 1 [place], [place] [phone] [address] (Wo rk) Social History Tobacco Use Types Packs/Day Years Used Date Smoking Tobacco: Never Alcohol Use Standard Drinks/Week Comments Not Asked 0 (1 standard drink = 0.6 oz pure alcoho l) 1/mo Sex Assigned at Date Recorded Not on file documented as of this encounter Nursing Notes Zonia Rivera RN - 12/21/2015 4:52 PM CDT Provider's hair or beauty salon assistant reported that Pt would need to come in for CT results and discussion of plan. Pt contacted and informed that she would need to return to clinic for results per provider's directive. UNTANT SUPERVISOR Zonia Rivera RN - 12/19/2015 1:37 PM CDT Pt called 2nd time and left with information documented (see below). Pt also is requesting return call with CT results; she would like some idea of results prior to her scheduled follow-up 01/02/16. Pt call back # [phone] UNTANT SUPERVISOR Manuel Washington RN - 12/18/2015 3:34 PM CDT Pt has an appointment with provider on 01/02/[address] results and next plan of care. Pt wanted CT results this week. Explained to patient provider will be in the office tomorrow and nurse will have provider look at CT tomorrow. CT was done at [facility]. Pt also states she was seen at [facility] and had injections done down there including her SI joints. Explained to patient she will need to bring her results and discuss the results with Dr. Pearce in clinic. Pt is in agreement with plan. UNTANT SUPERVISOR documented in this encounter Plan of Treatment Not on filedocumented as of this encounter Visit Diagnoses Not on filedocumented in this encounter Care Teams Briquette Machine Operator Relationship Specialty Start Date End Date Britney Jarrett MD PCP - General 04/15/13 04/03/161999 [place] [address] documented as of this encounter
--- OUTSIDE RECORDS SUMMARY | 2022-05-04 05:32 | XMS_ITS | Encounter Summary ---
:1970 Author Organization [facility] Address [address] [place] [address] Care Team Providers Name Role Phone Britney Jarrett MD Primary Care Provider Reason for Referral Procedure/Equipment (Routine) - Incomplete Specialty Diagnoses / Procedures Referred By Contact Refer red To Contact Diagnoses Left knee pain, unspecified chronicity Mary Grace Daniel MD Procedures XR Knee Rt 1-[address] [facility] [place], [place] [address] Referral ID Status Reason Start Date Expiration Date Visits V isits Requested Authorized [id number] Incomplete 05/26/2016 08/25/2017 1 1 Procedure/Equipment (Routine) - Incomplete Specialty Diagnoses / Procedures Referred By Contact Refer red To Contact Diagnoses Left knee pain, unspecified chronicity Mary Grace Daniel MD Procedures XR Knee Lt [address] [facility] [place] [address] Referral ID Status Reason Start Date Expiration Date Visits V isits Requested Authorized [id number] Incomplete 05/26/2016 08/25/2017 1 1 Reason for Visit Reason Comments Knee Pain or Injury left knee pain x 3 weeks Encounter Details Date Type Department Care Team Description 05/26/2016 Office Visit [facility] Mary Grace Daniel Chondro calcinosis of knee, left (Primary Dx); Urgent Care MD [place] Left knee pain, unspecified chronicity [address] [facility] [address] [facility] [place] [address] [phone] Social History Tobacco Use Types Packs/Day Years [...] your Pharmacy Acute Injury Clinic Nurse Line: [phone] Please contact Acute Injury Clinic Nurse line for all medical requests and questions Drivers' Cash Clerk: Melanie King Please call Ashley for all administrative questions at [phone] MRI Scheduling: To schedule an MRI at [facility] please call [phone] The left knee was injected with Kenalog-40 and lidocaine. Avoid Strenuous Activity for the remainder of the day and avoid activities that cause pain for one to two weeks following the injection. Signs and Symptoms to watch for: If you have any redness, warmth or increasing pain at the site of the injection or develop a fever, please call [phone] documented in this encounter Progress Notes Mary Grace Daniel MD - 05/27/2016 10:23 AM CDT NAME: RAHAT THOMASON MR#: [id number] CSN: [id number] AUTHENTICATING CLINICIAN: Mary Grace Daniel MD CONFIRM [...] consider surgery. She is being treated at [facility]. She finds that her left leg is [...] chronicity documented in this encounter Care Teams Shipping Weigher Relationship Specialty Start Date End Date Britney Jarrett MD PCP - General 04/04/161999 [place] [address] documented as of this encounter
--- OUTSIDE RECORDS SUMMARY | 2022-05-04 05:32 | XMS_ITS | Encounter Summary ---
:1970 Author Organization [facility] Address [address] [place] [address] Care Team Providers Name Role Phone Britney Jarrett MD Primary Care Provider Reason for Referral Procedure/Equipment (Routine) - Incomplete Specialty Diagnoses / Procedures Referred By Contact Refer red To Contact Diagnoses Chronic pain of left knee Richard Butts MD Procedures MR Knee Lt WO IV Cont [address] [facility] [place] [address] 1 Referral ID Status Reason Start Date Expiration Date Visits V isits Requested Authorized [id number] Incomplete 07/29/2016 10/28/2017 1 1 TRONIC TRAIN CONTROL TECHNICIAN Reason for Visit Reason Comments Knee Pain or Injury Lt knee pain x 5 mos Encounter Details Date Type Department Care Team Description 07/29/2016 Office Visit [facility] Richard Butts, Chronic pain of left Urgent Care knee (Primary Dx) [address] [facility] [address] [facility] [place] [address] [place] [phone] (Wo rk) Social History Tobacco Use Types [...] Comments Blood Pressure 110/68 07/29/2016 3:20 PM ELECTRONIC TRAIN CONTROL TECHNICIAN Pulse - - Temperature 36.4 ??C (97.6 ??F) 07/29/2016 3:20 PM ELECTRONIC TRAIN CONTROL TECHNICIAN Respiratory Rate - - Oxygen Saturation - [...] all medication refills: Request a refill using ViaCytet or contact your Pharmacy [facility] Nurse Line: [phone] Please contact [facility] Nurse line for all medical requests and questions Seamless Tube Roller: Adina Gamez Please call Adina for all administrative questions at [phone] MRI Scheduling: To schedule an MRI at [facility] please call [phone] Left knee pain Follow up in clinic for MRI results TRONIC TRAIN CONTROL TECHNICIAN documented in this encounter Progress Notes Richard Butts MD - 07/30/2016 9:18 AM CST NAME: RAHAT THOMASON MR#: [id number] CSN: [id number] AUTHENTICATING CLINICIAN: Richard Butts MD CONFIRM #: [...] spinal fusion and potential spine stimulator from [place]. Pain is 3-8/10. REVIEW OF SYSTEMS: No [...] radicular source. SAB:CORNELIA C: R:07/29/16 19:28 CONFIRM#:[id number] TRONIC TRAIN CONTROL TECHNICIAN documented in this encounter Plan of Treatment Not on filedocumented as of this encounter Results MR Knee Lt WO IV Cont (07/29/2016 4:50 PM ELECTRONIC TRAIN CONTROL TECHNICIAN) Anatomical Region Laterality Modality Lower Extremity, Knee, Skeletal, Thigh, Leg Left Magnetic Resonance Specimen (Source) Anatomical Collection Method Collection Time Re ceived Time Location / / Volume Laterality 07/29/2016 4:28 PM ELECTRONIC TRAIN CONTROL TECHNICIAN Impressions 07/30/2016 8:42 AM ELECTRONIC TRAIN CONTROL TECHNICIAN IMPRESSION: 1. Mild strain in the musculotendinous p ortion of the popliteus and adjacent posterior lateral joint capsule. 2. No other evidence of significant liga mentous or tendinous injury. 3. 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 4. Small tears in the medial and lateral menisci as described above. Narrative 07/30/2016 8:42 AM ELECTRONIC TRAIN CONTROL TECHNICIAN TECHNIQUE: Routine MRI of the left [...] leg documented in this encounter Care Teams Atv Mechanic Relationship Specialty Start Date End Date Britney Jarrett MD PCP - General 04/04/161999 [place] [address] documented as of this encounter
--- OUTSIDE RECORDS SUMMARY | 2022-05-04 05:32 | XMS_ITS | Encounter Summary ---
:1970 Author Organization [facility] Address [address] [place] [address] Care Team Providers Name Role Phone Britney Jarrett MD Primary Care Provider Encounter Details Date Type Department Care Team Description 06/18/2014 Imaging [facility] MRI Knee pain [address] [place], [place] [address] Social History Tobacco Use Types [...] Knee pain Resul ts for this CONT FISH ROE TECHNICIAN procedure are i n the results section. documented in this encounter Results MR Knee Rt WO IV Cont (06/18/2014 1:29 PM FISH ROE TECHNICIAN) Anatomical Region Laterality Modality Lower Extremity, Knee, Skeletal, Thigh, Leg Right Other Specimen (Source) Anatomical Location Collection Method / Collectio n Time Received Time / Laterality Volume Impressions 06/19/2014 9:43 AM FISH ROE TECHNICIAN IMPRESSION: ?? 1. Lower pole patellar full-thickness la teral chondromalacia and mild to moderate medial chondral thinning and fissuring. Chondral surface fibrillation otherwise. Adjacent Hoffa fat pad T2 signal with e nlargement of the small cyst, suggesting lateral fat pad impingement. No evidence of patella jose guadalupe or patellar subluxation. 2. No other internal derangement identif ied. Narrative 06/19/2014 9:43 AM FISH ROE TECHNICIAN TECHNIQUE: ??Routine MRI of the right knee [...] leg documented in this encounter Care Teams Reliability Manager Relationship Specialty Start Date End Date Britney Jarrett MD PCP - General 04/15/13 04/03/161999 [place] [address] documented as of this encounter
--- OUTSIDE RECORDS SUMMARY | 2022-05-04 05:32 | XMS_ITS | Encounter Summary ---
:1970 Author Organization [employer] Address [address] [place] [address] Care Team Providers Name Role Phone Britney Jarrett MD Primary Care Provider Reason for Visit Reason Comments Knee Pain or Injury Encounter Details Date Type Department Care Team Description 06/18/2014 Office Visit [facility] Jignesh Flores DO Knee pain (Primary Urgent Care [address] [place] [address] DR Dx) [address] [place], [place] [address] [phone] (Wo rk) Social History Tobacco Use Types Packs/Day Years Used Date Smoking Tobacco: Never Alcohol Use Standard Drinks/Week Comments Not Asked 0 (1 standard drink = 0.6 oz pure alcoho l) 1/mo Sex Assigned at Date Recorded Not on file documented as of this encounter Last Filed Vital Signs Vital Sign Reading Time Taken Comments Blood Pressure 110/72 06/18/2014 11:52 AM STACKER STRAIGHTENER Pulse - - Temperature 36.3 ??C (97.3 ??F) 06/18/2014 11:52 AM STACKER STRAIGHTENER Respiratory Rate - - Oxygen Saturation - - Inhaled Oxygen Concentration - - Weight - - Height - - Body Mass Index - - documented in this encounter Patient Instructions Patient InstructionsKarmen Spring 06/18/2014 12:[address] Augusto Flores DO, CAQ [facility] Primary Care Sports Medicine Transcription Specialist: Kiana Pena Please fax all paperwork correspondence to [phone] Acute Injury Clinic Nurse Line: [phone] Please contact [facility] Injury Clinic Nurse line for all requests and questions. Medication Requests: Prescriptions are not filled on Weekends or on Weekdays after 3:00PM For all medication refills: Request a refill using MyChart or contact your Pharmacy Right Knee MRI - Will call with results KER STRAIGHTENER documented in this encounter Progress Notes Jignesh Flores DO - 06/18/2014 6:20 PM CST Progress Notes signed by Jignesh Flores DO at 06/19/14 1007 Author: Jignesh Flores DO Service: (none) Author Type: Physician Filed: 06/19/14 1007 Note Time: 06/19/14919 Status: Signed Photographic Process Attendant: Jignesh Flores DO (Physician) NAME: RAHAT THOMASON MR#: [id number] CSN: [id number] AUTHENTICATING CLINICIAN: Jignesh Flores DO CONFIRM #: [...] either. She has been seen previously at [facility] for knee problems, but she cannot remember [...] modifications discussed. PAULINE:ANTWAN C: R:06/18/14 18:31 CONFIRM#:[id number] KER STRAIGHTENER documented in this encounter Plan of Treatment Not on filedocumented as of this encounter Visit Diagnoses Diagnosis Knee pain - Primary Pain in joint, lower leg documented in this encounter Care Teams Billing Machine Operator Relationship Specialty Start Date End Date Britney Jarrett MD PCP - General 04/15/13 04/03/161999 [place] [address] documented as of this encounter
--- OUTSIDE RECORDS SUMMARY | 2022-05-04 05:32 | XMS_ITS | Encounter Summary ---
:1970 Author Organization [facility] Address [address] [place] [address] Care Team Providers Name Role Phone Britney Jarrett MD Primary Care Provider Reason for Visit Procedure/Equipment (Routine) - Incomplete Specialty Diagnoses / Procedures Referred By Contact Refer red To Contact Diagnoses Left knee pain, unspecified chronicity Mary Grace Daniel MD Procedures XR Knee Lt 3 Views [address] [facility] [place] [address] Referral ID Status Reason Start Date Expiration Date Visits V isits Requested Authorized [id number] Incomplete 05/26/2016 08/25/2017 1 1 Encounter Details Date Type Department Care Team Description 05/26/2016 Imaging [facility] Mary Grace Daniel, Left knee pain, [address] [facility] unspecified chronicity [place], [place] [address] [address] [phone] [place] [address] (Wo rk) Social History Tobacco Use Types [...] chronicity documented in this encounter Care Teams Marketing [employer] Relationship Specialty Start Date End Date Britney Jarrett MD PCP - General 04/04/161999 [place] [address] documented as of this encounter
--- OUTSIDE RECORDS SUMMARY | 2022-05-04 05:32 | XMS_ITS | Encounter Summary ---
:1970 Author Organization [facility] Address [address], [place] [address] Care Team Providers Name Role Phone Britney Jarrett MD Primary Care Provider Reason for Visit Reason Comments Refill Encounter Details Date Type Department Care Team Description 07/13/2015 Refill [facility] nt [facility] Bandar Hernandez MD Refill [address] [facility] [place] [address] [place] [address] [phone] (Wo rk) Social History Tobacco Use Types Packs/Day Years Used Date Smoking Tobacco: Never Alcohol Use Standard Drinks/Week Comments Not Asked 0 (1 standard drink = 0.6 oz pure alcoho l) 1/mo Sex Assigned at Date Recorded Not on file documented as of this encounter Nursing Notes April Richardson RN - 07/18/2015 12:13 PM CST Marketing Finance Specialist notified [facility] pharmacy that pt needs to be seen prior to Rx being refill. F UNIT FORESTER documented in this encounter Plan of Treatment Not on filedocumented as of this encounter Visit Diagnoses Not on filedocumented in this encounter Care Teams Shield Installer Relationship Specialty Start Date End Date Britney Jarrett MD PCP - General 04/15/13 04/03/161999 [place] [address] documented as of this encounter
--- OUTSIDE RECORDS SUMMARY | 2022-05-04 05:32 | XMS_ITS | Encounter Summary ---
:1970 Author Organization [employer] Address [address], [place] [address] Care Team Providers Name Role Phone Britney Jarrett MD Primary Care Provider Reason for Visit Reason Comments Back Pain Encounter Details Date Type Department Care Team Description 09/28/2015 Surgical Consult [facility] Doni Conway, [facility] facet joint CENTER MD syndrome (Primary [address] [facility] [address] [place] [address] Dr Dx) [place] [address] [phone] Social History Tobacco Use Types Packs/Day Years [...] 58.5 kg (129 lb) 09/28/2015 3:38 PM SLAT BASKET TOP MAKER Height 152.4 cm (5') 09/28/2015 3:38 PM SLAT BASKET TOP MAKER Body Mass Index 25.19 09/28/2015 3:38 PM SLAT BASKET TOP MAKER documented in this encounter Patient Instructions Patient InstructionsMelani Hector MA - 09/28/2015 5:[address] Doni Conway MD Orthopeadic Spine Arborist: Jess Webb Please contact Jess for all administrative questions at [phone] Please contact the Spine Nurse for all medical related questions at [phone] Office Hours: and Friday Medication Requests: Prescriptions are not filled on Weekends or on Weekdays after 3:00PM For all medication refills: Request a refill using MyChart or contact your Pharmacy Your Provider would like you to schedule a Follow Up as needed with Dr. Conway Appointment Scheduling: Can be done at the front office clerk or by calling our main number [phone] Follow up as discussed - possible consult with spine surgeon BASKET TOP MAKER documented in this encounter Progress Notes Doni Conway MD - 10/25/2015 2:41 PM CDT Progress Notes signed by Doni Conway MD at 10/26/15 1046 Author: Doni Conway MD Service: (none) Author Type: Physician Filed: 10/26/15 1046 Note Time: 10/25/151526 Status: Signed Zigzag Elastic Attacher: Doni Conway MD (Physician) NAME: RAHAT THOMASON MR#: [id number] CSN: [id number] AUTHENTICATING CLINICIAN: Doni Conway MD CONFIRM #: [...] to [facility] in [place] in September. She had 2 visits and her back pain increased after this. Now she is experiencing bilateral lower neck pain along with some radiation into her right calf and into the balls of her feet. She did have an MRI performed at [facility] on 07/25/2015, which showed a solid noninstrumented [...] both the chiropractic office and on the [employer] machines at [facility]. PLAN: [...] that she does not use illicit drugs. BASKET TOP MAKER documented in this encounter Plan of Treatment Not on filedocumented as of this encounter Visit Diagnoses Diagnosis Lumbar facet joint syndrome (HRC) - Prim christine documented in this encounter Care Teams Quill Machine Tender Relationship Specialty Start Date End Date Britney Jarrett MD PCP - General 04/15/13 04/03/161999 [place] [address] documented as of this encounter
--- OUTSIDE RECORDS SUMMARY | 2022-05-04 05:32 | XMS_ITS | Encounter Summary ---
:1970 [address] [facility] Address [address], [place] [address] Care Team Providers Name Role Phone Britney Jarrett MD Primary Care Provider Reason for Visit Reason Comments LAB RESULTS Encounter Details Date Type Department Care Team Description 11/03/2015 Telephone [facility] Doni Conway MD LAB RESULTS [address] [facility] [address] [facility] [place] [address] 1 [place] [address] [phone] (Wo rk) Social History Tobacco Use Types [...] on filedocumented in this encounter Care Teams E Tailer Relationship Specialty Start Date End Date Britney Jarrett MD PCP - General 04/15/13 04/03/161999 [place] [address] documented as of this encounter
--- OUTSIDE RECORDS SUMMARY | 2022-05-04 05:32 | XMS_ITS | Encounter Summary ---
:1970 Author Organization [employer] Address [address] [place] [address] Care Team Providers Name Role Phone Britney Jarrett MD Primary Care Provider Reason for Visit Reason Comments LAB RESULTS Encounter Details Date Type Department Care Team Description 06/20/2014 Telephone [facility] Jignesh Flores, LAB RESULTS [address] [facility] [address] [place] [address] [place] [address] 1 [place] [address] [phone] (Wo rk) Social History Tobacco Use Types [...] no improvement then call to schedule PT. ROENTEROLOGIST documented in this encounter Plan of Treatment Not on filedocumented as of this encounter Visit Diagnoses Not on filedocumented in this encounter Care Teams Managed Care Analyst Relationship Specialty Start Date End Date Britney Jarrett MD PCP - General 04/15/13 04/03/161999 [place] [address] documented as of this encounter
--- OUTSIDE RECORDS SUMMARY | 2022-05-04 05:32 | XMS_ITS | Encounter Summary ---
:1970 Author Organization [facility] Address [address], [place] [address] Care Team Providers Name Role Phone Britney Jarrett MD Primary Care Provider Reason for Visit Reason Comments Post-Op Follow Up Call Encounter Details Date Type Department Care Team Description 10/18/2015 Telephone [facility] Frances Reddy RN Post-Op Follow Up Call [address] [place], [place] [address] Social History Tobacco Use Types [...] on filedocumented in this encounter Care Teams Procurement Buyer Relationship Specialty Start Date End Date Britney Jarrett MD PCP - General 04/15/13 04/03/161999 [place] [address] documented as of this encounter
--- OUTSIDE RECORDS SUMMARY | 2022-05-04 05:32 | XMS_ITS | Encounter Summary ---
:1970 Author Organization [facility] Address [address], [place] [address] Care Team Providers Name Role Phone Britney Jarrett MD Primary Care Provider Reason for Visit Reason Comments Pre-procedure Call Encounter Details Date Type Department Care Team Description 10/13/2015 Telephone [facility] Rekha Levy, Pre-procedure Call [address] [place], [place] [address] Social History Tobacco Use Types [...] on filedocumented in this encounter Care Teams Help Desk Engineer Relationship Specialty Start Date End Date Britney Jarrett MD PCP - General 04/15/13 04/03/161999 [place] [address] documented as of this encounter
[2022-05-04 05:33] LABS: Lactate* 1.4 mmol/L (0.5-1.9)
[2022-05-04] MEDS: 0.9 % SODIUM CHLORIDE 1000 ml 1,000 ML IV (05:33)
--- OUTSIDE RECORDS SUMMARY | 2022-05-04 05:33 | XMS_ITS | Encounter Summary ---
:1970 Author Organization [employer] Address [address], [place] [address] Care Team Providers Name Role Phone Madisyn Smalls APRN, CNP Primary Care Provider Reason for Visit Reason Comments Irregular menstrual periods Encounter Details Date Type Department Care Team Description 12/12/2005 Office Visit [facility] Madisyn Smalls M ENSTRUAL DISORDER NOS (Primary Dx); Practice [facility] [address] [facility] [address] [place] [address] [phone] (Wo rk) Social History Tobacco Use Types [...] documented in this encounter Patient Instructions Patient Isawfxlvkyjs12/11/2006 3:40 PM CDT Stop by the lab [...] athologist Signature Glucose 78 65 - 115 [facility] mg/dl Hours Fasting 4 hours [facility] Specimen Anatomical Collection Method Collection Time Receive d Time (Source) Location / / Volume Laterality 12/12/2005 4:07 PM 6 4:08 CDT PM CDT Madisyn Samlls APRN, CNP LAB_1 Performing Organization Address [facility] Phon e Number [employer] [phone] [address] TSH, SENSITIVE (12/12/2005 4:07 PM CDT) athologist Signature TSH, Sensitive 1.27 0.3 - 5.0 [facility] uIU/ml Specimen Anatomical Collection Method Collection Time Receive d Time (Source) Location / / Volume Laterality 12/12/2005 4:07 PM 6 4:08 CDT PM CDT Madisyn Smalls APRN, CNP LAB_1 Performing Organization Address [facility] Phon e Number [employer] [phone] [address] HEMOGRAM/PLTS (12/12/2005 4:07 PM CDT) athologist Signature WBC 6.7 4.0 - 11.0 [facility] k/ul RBC 4.63 4.0 - 5.2 [facility] M/ul Hemoglobin 13.6 12.0 - 16.0 [facility] g/dl HCT 39.4 36.0 - 46.0 [facility] [...] Address City/State/ZIP Code Phon e Number [facility] [phone] [address] documented in this encounter Visit Diagnoses Diagnosis Unspecified disorder of menstruation and other abnormal bleeding from female genital tract - Primary Screening for diabetes mellitus documented in this encounter Care Teams Engineering Design Supervisor Relationship Specialty Start Date End Date Madisyn Smalls APRN, CNP PCP - General 03/03/02 11/04/10 [address] [place] [address] documented as of this encounter
--- OUTSIDE RECORDS SUMMARY | 2022-05-04 05:33 | XMS_ITS | Encounter Summary ---
:1970 Author Organization [facility] Address [address] [place] [address] Care Team Providers Name Role Phone Madisyn Smalls APRN, CNP Primary Care Provider [phone] Encounter Details Date Type Department Care Team [...] on filedocumented in this encounter Care Teams Communications Tower Technician Relationship Specialty Start Date End Date Madisyn Smalls APRN, CNP PCP - General 03/03/02 11/04/10 [address] [place] [address] documented as of this encounter
--- OUTSIDE RECORDS SUMMARY | 2022-05-04 05:33 | XMS_ITS | Encounter Summary ---
:1970 Author Organization [facility] Address [address] [place] [address] Care Team Providers Name Role Phone Madisyn Smalls APRN, CNP Primary Care Provider Reason for Visit Reason Comments LASER TREATMENT Encounter Details Date Type Department Care Team Description 12/04/2006 Office Visit [facility], Other Plastic Surgery for Un acceptable Cosmetic Appearance; [address] [facility]. 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 [facility] [place] [place] [address] [place], [place] [phone] [address] Social History Tobacco Use Types Packs/Day Years [...] the second time we are using the Troy Nd: YAG laser. There has been some mild scarring in the center where the red heart was as noted in the past and some minimal scarring around the blue-back curvilinear section, however, that is subtle to minimal at worst. She is fine with everything and happy things are disappearing. On her last treatment that we did (first time using the Troy Nd: YAG laser), she really did not get much of a response at all. After review with her knowing there will be another charge of $97 (note that since we quoted her this lima last time and did not tell her there was a change coming, I am going to honor that. Next time she understands she will be paying $140 to [employer] - this is all in addition to the [employer] fee, which is independent), procedure was done. PROCEDURE: With all parties present, using appropriate eye protection and using a [employer] Q-switched Nd: YAG laser at 1064 wavelength, [...] dyschromia documented in this encounter Care Teams Qa Analyst Relationship Specialty Start Date End Date Madisyn Smalls APRN, SOLUTIONS SPECIALIST PCP - General 03/03/02 11/04/10 [address] [place] [address] documented as of this encounter
--- OUTSIDE RECORDS SUMMARY | 2022-05-04 05:33 | XMS_ITS | Encounter Summary ---
:1970 Author Organization [facility] Address [address] [address] Care Team Providers Name Role Phone Madisyn Smalls APRN, AGUSTIN Primary Care Provider [phone] Reason for Visit Reason Onset Date Comments SINUSITIS 11/02/2004 Encounter Details Date Type Department Care Team Description 11/02/2004 Telephone [facility] Madisyn Smalls A PRN, SINUSITIS Practice [facility] [address] [facility] [address] [place] [address] 24 [place] [address] [phone] (Wo rk) Social History Tobacco Use Types Packs/Day Years Used Date Smoking Tobacco: Never Assessed Alcohol Use Standard Drinks/Week Comments Not Asked 0 (1 standard drink = 0.6 oz pure alcoho l) Sex Assigned at Date Recorded Not on file documented as of this encounter Nursing Notes 11/02/2004 11:59 PM HOME CARE COORDINATOR >> REGIS ZHU Fri Nov 02, 2004 [...] purchased from store Plan: Script sent to [facility] as directed. >> MARY Patel Nov 02, 2004 3:24 PM head cold for 8 days, feels same as sinus infection that she has had in past. Hoping to get RX without being seen. RX at [facility] [phone]. documented in this encounter Plan of Treatment Not on filedocumented as of this encounter Visit Diagnoses Not on filedocumented in this encounter Care Teams Behavioral Technician Relationship Specialty Start Date End Date Madisyn Smalls APRN, STAVE SAW OPERATOR PCP - General 03/03/02 11/04/10 [address] [place] [address] documented as of this encounter
--- OUTSIDE RECORDS SUMMARY | 2022-05-04 05:33 | XMS_ITS | Encounter Summary ---
:1970 Author Organization [facility] Address [address] [place] [address] Care Team Providers Name Role Phone Madisyn Smalls APRN, CNP Primary Care Provider [phone] Reason for Visit Reason Onset Date Comments QUESTIONS, GENERAL 09/15/2006 Encounter Details Date Type Department Care Team Description 09/15/2006 Telephone [facility] Madisyn Smalls, Patricia UESTEDY, armature winder repair helper AGUSTIN FIELDS [address] [place] [address] [phone] (Wo rk) Social History Tobacco Use Types [...] 8;30 . Having to chk Her schedule OLOGY LABORATORY AIDE Sy Moncada - 09/15/2006 9:31 AM CST Patient would like to speak to her either provider or nurse. Name of patient's provider: Nataly Smalls Summarize the patient's question or concern: pt would like an appt on nurse schedule for flu shot on09/22/06 @ 9:15am with daughter, schedule was full. Sy Moncada OLOGY LABORATORY AIDE documented in this encounter Plan of Treatment Not on filedocumented as of this encounter Visit Diagnoses Not on filedocumented in this encounter Care Teams Operational Risk Consultant Relationship Specialty Start Date End Date Madisyn Smalls APRN, MOTOR SCOOTER REPAIRER PCP - General 03/03/02 11/04/10 [address] [place] [address] documented as of this encounter
--- OUTSIDE RECORDS SUMMARY | 2022-05-04 05:33 | XMS_ITS | Encounter Summary ---
:1970 Author Organization [employer] Address [address], [place] [address] Care Team Providers Name Role Phone Britney Jarrett MD Primary Care Provider Reason for Visit Reason Comments Hand Therapy Encounter Details Date Type Department Care Team Description 03/10/2014 Office Visit [facility] Brittanie Costa, OTR/L Medial epicondylitis [address] [facility] [address] [facility] of elbow (Primary Dx) [place] [address] [phone] (Wo rk) Social History Tobacco Use Types [...] developed pain while working out with her animal attendants and trainers using free weights. Hand Dominance: Right Past [...] the summer. Leisure/Sports: Weight lifts with a animal attendants and trainers 4x/week, biking, roller blading, kettle pena class, [...] sprain in her hand. Right Left Pain-free nylon hot wire cutter, elbow at 0 degrees extension NT 44 lbs Maximum nylon hot wire cutter, elbow at 90 degrees flexion NT 55 [...] during the day. She was able to nylon hot wire cutter 60# vs. 55# with the counter force [...] in 6 weeks. LTG: Patient will perform dyeing machine tender and weight lift using free weights with [...] Time: 45 minutes Therapist Signature: JUANY Alva/Hiwot,T #[id number] Visit #08/08 Charges: Therapeutic Exercise (CPT 57572) 30 minutes Manual Therapy, 1 or more regions (CPT 10719) 15 minutes documented in this encounter Plan of Treatment Not on filedocumented as of this encounter Visit Diagnoses Diagnosis Medial epicondylitis of elbow - Primary documented in this encounter Care Teams Weaving Loom Operator Relationship Specialty Start Date End Date Britney Jarrett MD PCP - General 04/15/13 04/03/161999 [place] [address] documented as of this encounter
--- OUTSIDE RECORDS SUMMARY | 2022-05-04 05:33 | XMS_ITS | Encounter Summary ---
:1970 Author Organization [facility] Address [address] [place] [address] Care Team Providers Name Role Phone Madisyn Smalls APRN, CNP Primary Care Provider [phone] Reason for Visit Reason Onset Date Comments SINUS PAIN/PRESSURE 12/01/2006 Encounter Details Date Type Department Care Team Description 12/01/2006 Telephone [facility] Madisyn Smalls S INUS PAIN/PRESSURE Practice AGUSTIN FIELDS [address] [facility] [address] [place] [address] [address] [place], [place] [phone] (Wo rk) Social History Tobacco Use Types [...] (chronic) documented in this encounter Care Teams Cause Analyst Relationship Specialty Start Date End Date Madisyn Smalls APRN, SALES ENGINEER ENGINEERED PRODUCTS PCP - General 03/03/02 11/04/10 [address] [place] [address] documented as of this encounter
--- OUTSIDE RECORDS SUMMARY | 2022-05-04 05:33 | XMS_ITS | Encounter Summary ---
:1970 Author Organization [facility] Address [address], [place] [address] Care Team Providers Name Role Phone Madisyn Smalls APRN, CNP Primary Care Provider [phone] Reason for Visit Reason Comments Sore Throat Encounter Details Date Type Department Care Team Description 08/27/2005 Office Visit [facility] Nurse, Adult Av ACUT E PHARYNGITIS(SORE Department THROAT) (Primary Dx) [address] [place] [address] 24 Social History Tobacco Use Types Packs/Day [...] 37.9 ??C (100.3 ??F) 08/27/2005 4:15 PM BIOTECHNICIAN Respiratory Rate - - Oxygen Saturation - - Inhaled Oxygen Concentration - - Weight - - Height - - Body Mass Index - - documented in this encounter Nursing Notes 08/27/2005 4:15 PM CST >> CHRISTA RASHEED 08/27/2005 4:49 pm S: Jsoie Booker complains of sore throat lasting 2 day(s). Other presenting symptoms include: NONE Fever? 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 Phone number: [phone] (home) [phone] (work), A: Sore Throat P: Wait for rapid strep results Christa Rasheed LPN, 4:45 PM 08/27/2005 documented in this encounter Plan of Treatment Not on filedocumented as of this encounter Procedures Procedure Name Priority Date/Time Associated Diagnosis Comme nts STREP GRP A, RAPID Waiting 08/27/2005 4:30 PM Acute Res ults for this SCREEN BIOTECHNICIAN Pharyngitis(Sore procedure a re in Throat) the results section. documented in this encounter Results (ABNORMAL) STREP GRP A, RAPID SCREEN (08/27/2005 4:30 PM BIOTECHNICIAN) [facility] Method Time Signature Patient Home None [employer] Phone # Patient Work None [facility] Phone # Grp A Rapid Positive NEG [place] Screen (A) Specimen Anatomical Collection Method Collection Time Receive d Time (Source) Location / / Volume Laterality 08/27/2005 4:30 PM 6 4:31 BIOTECHNICIAN PM BIOTECHNICIAN Jose E Angeles MD LAB_1 Performing Organization Address City/State/ZIP Code Phon e Number [facility] [phone] [place] [address] [place] [address] documented in this encounter Visit Diagnoses Diagnosis Acute pharyngitis - Primary documented in this encounter Care Teams Digital Product Specialist Relationship Specialty Start Date End Date Madisyn Smalls APRN, FOREST FIRE LOOKOUT PCP - General 03/03/02 11/04/10 [address] [place], [place] [address] documented as of this encounter
--- OUTSIDE RECORDS SUMMARY | 2022-05-04 05:33 | XMS_ITS | Encounter Summary ---
:1970 [facility] Address [address] [place] [address] Care Team Providers Name Role Phone Steve Alston MD Primary Care Provider Encounter Details Date Type Department Care Team Description 03/06/2010 Office Visit [facility] Sharifa Huber MD Care [address] [facility] [address] [place] [address] [place] [id number] [phone] Social History Tobacco Use Types Packs/Day Years [...] 0149 Note Time: 03/06/10 0001 Status: Signed Radioactivity Technician: Sharifa Huber MD (Physician) NAME: RAHAT THOMASON VISIT: [id number] DICTATING CLINICIAN: SHARIFA HUBER MD JOB: [id number] LOC: 3711 CLINIC PROGRESS NOTE DATE OF [...] pain and swelling. Results: Mild medial compartment Macon's changes. Small effusion on lateral views. No [...] also get dexamethasone iontophoresis and phonophoresis. DOCUMENT: [id number] documented in this encounter Plan of Treatment [...] on filedocumented in this encounter Care Teams Door Repairer Bus Relationship Specialty Start Date End Date Steve Alston MD PCP - General 11/05/10 04/14/[address] [place] [address] [address] [place] [address] documented as of this encounter
--- OUTSIDE RECORDS SUMMARY | 2022-05-04 05:33 | XMS_ITS | Encounter Summary ---
:1970 Author Organization [employer] Address [address] [address] Care Team Providers Name Role Phone Madisyn Smalls APRN, CNP Primary Care Provider [phone] Reason for Visit Reason Comments EXPOSURE TO, STREP THROAT Encounter Details Date Type Department Care Team Description 03/03/2005 Office Visit [facility] P HARYNGITIS(SORE [place] THROAT) (Primary Dx) [address] [place], [place] [address] Social History Tobacco Use [...] A, RAPID SCREEN (03/03/2005 1:45 PM CDT) [facility] Method Time Signature Patient Home None [place] [facility] Phone # Patient Work None [place] [facility] Phone # Grp A Rapid Negative NEG [facility] Screen Grp A Culture Negative NEG [facility] Final Specimen Anatomical Collection Method Collection Time Receive d Time (Source) Location / / Volume Laterality 03/03/2005 1:45 PM 5 1:46 CDT PM CDT Harry Castro MD LAB_1 Performing Organization Address City/State/ZIP Code Phon e Number [facility] [phone] [place] [facility] [address] [place] [address] documented in this encounter Visit Diagnoses Diagnosis Acute pharyngitis - Primary documented in this encounter Care Teams Sales And Retail Management Recruiter Relationship Specialty Start Date End Date Madisyn Smalls, DONNIE, TOUCH UP WORKER PCP - General 03/03/02 11/04/10 [address] [place] [address] documented as of this encounter
--- OUTSIDE RECORDS SUMMARY | 2022-05-04 05:33 | XMS_ITS | Encounter Summary ---
:1970 Author Organization [facility] Address [address] [address] Care Team Providers Name Role Phone Steve Alston MD Primary Care Provider Encounter Details Date Type Department Care Team Description 03/06/2010 PN Conversion Only [facility] [address] [place], [place] [address] Social History Tobacco Use Types [...] on filedocumented in this encounter Care Teams Printmaker Relationship Specialty Start Date End Date Steve Alston MD PCP - General 11/05/10 04/14/[address] [place] [address] [address] [place] [address] documented as of this encounter
--- OUTSIDE RECORDS SUMMARY | 2022-05-04 05:33 | XMS_ITS | Encounter Summary ---
:1970 Author Organization [facility] Address [address] [address] Care Team Providers Name Role Phone Madisyn Smalls APRN, CNP Primary Care Provider [phone] Reason for Visit Reason Comments BREAST LUMP left armpit area Encounter Details Date Type Department Care Team Description 04/03/2007 Office Visit [facility] Madisyn Smalls S inusitis (Chronic) (Primary Dx); Practice AGUSTIN FIELDS Axillary Swelling [address] [address] [phone] (Wo rk) Social History Tobacco Use Types [...] documented in this encounter Patient Instructions Patient Eelvbllfbzkx79/31/2007 2:15 PM CDT Start the Flonase and monitor your symptoms this fall, Call or return to clinic prn if these symptoms worsen, fail to improve as anticipated, or if new symptoms develop. Recheck your axillary/armpit area in a couple of weeks-if you still are having symptoms give me a call [phone] documented in this encounter Progress Notes Madisyn [...] is taught and encouraged. Mammogram - mammogram [address] ACR-1, no other mammograms (younger than 40) [...] limb documented in this encounter Care Teams Director Experimental Medicine Relationship Specialty Start Date End Date Madisyn Smalls, ENDOCRINOLOGY SPECIALIST, VAMPER PCP - General 03/03/02 11/04/10 [address] [place] [address] documented as of this encounter
--- OUTSIDE RECORDS SUMMARY | 2022-05-04 05:33 | XMS_ITS | Encounter Summary ---
:1970 Author Organization [employer] Address [address], [place] [address] Care Team Providers Name Role Phone Britney Jarrett MD Primary Care Provider Reason for Visit Reason Comments Hand Pain or Injury INJURY, ELBOW Encounter Details Date Type Department Care Team Description 02/07/2014 Office Visit [facility] Ovidio Mcdowell W, Medial epicondylitis of elbow (Primary Dx); Urgent Care Finger sprain; [address] [facility] [address] [facility] Pain in joint, [place] [address] [phone] (Wo rk) Social History Tobacco Use Types [...] this encounter Patient Instructions Patient InstructionsLetty Hernandez, BEHAVIOR MANAGEMENT SPECIALIST - 02/07/2014 1:[address] Ovidio Mcdowell MD Sports & Orthopaedic Medicine Acute Injury Clinic Zoning Engineer: Kiana Pena Please fax all paperwork correspondence to [phone] Acute Injury Clinic Nurse Line: [phone] Please contact Acute Injury Clinic Nurse line [...] Filed: 02/11/14925 Note Time: 02/09/141455 Status: Signed Facilities Manager: Ovidio Mcdowell MD (Physician) NAME: RAHAT THOMASON MR#: [id number] CSN: [id number] AUTHENTICATING CLINICIAN: Ovidio Mcdowell MD CONFIRM #: [...] hand documented in this encounter Care Teams Production Maintenance Mechanic Relationship Specialty Start Date End Date Britney Jarrett MD PCP - General 04/15/13 04/03/161999 [place] [address] documented as of this encounter
--- OUTSIDE RECORDS SUMMARY | 2022-05-04 05:33 | XMS_ITS | Encounter Summary ---
:1970 Author Organization [facility] Address [address] [place] [address] Care Team Providers Name Role Phone Steve Alston MD Primary Care Provider Reason for Visit Reason Comments Other Encounter Details Date Type Department Care Team Description 02/21/2010 Telephone [facility] [place], Message Other [address] [facility] [address] [place] [address] Social History Tobacco Use Types Packs/Day Years Used Date Smoking Tobacco: Never Alcohol Use Standard Drinks/Week Comments Not Asked 0 (1 standard drink = 0.6 oz pure alcoho l) 1/mo Sex Assigned at Date Recorded Not on file documented as of this encounter Progress Notes Center, Message - 02/21/2010 10:03 AM CDT Phone Note filed by [employer] at 11/24/10 0986 Author: [employer] Service: (none) Author Type: (none) Filed: 11/24/10 8587 Note Time: 02/21/10 1003 Status: Signed Feather Sawyer: [employer] (Resource) Please scheudle surgery for today. SORRY!! Post op 7-10 dys. Thanks! Created on 21Feb2010 10:03am by XOCHILT MONTANO On 21Feb2010 10:30am MACI WISEMAN wrote: It's actually Jose Rafael Booker having the surgery, not felipe. I partially made a slog for him but if he needs post op appts you will need to send the [facility] the information. if ?'s call me at [phone]. Acknowledged by XOCHILT MONTANO on 11:23am HMAKER APPRENTICE documented in this encounter Plan of Treatment Not on filedocumented as of this encounter Visit Diagnoses Not on filedocumented in this encounter Care Teams General Merchandise Manager Relationship Specialty Start Date End Date Steve Alston MD PCP - General 11/05/10 04/14/[address] [place] [address] [address] [place] [address] documented as of this encounter
--- OUTSIDE RECORDS SUMMARY | 2022-05-04 05:33 | XMS_ITS | Encounter Summary ---
:1970 Author Organization [employer] Address [address] [address] Care Team Providers Name Role Phone Britney Jarrett MD Primary Care Provider Reason for Visit Reason Comments Arm Injury Neck Pain Encounter Details Date Type Department Care Team Description 03/04/2014 Office Visit [facility] Mary Grace Daniel Medial epicondylitis of elbow (Primary Dx); Urgent Care MD [place] H/O cervical spine surgery [address] [place] [address] [place], [place] [address] [phone] (Wo rk) Social History Tobacco Use Types [...] Sports & Orthopaedic Medicine Acute Injury Clinic Machine Stuffer Automatic: Kiana Pena Please fax all paperwork correspondence to [phone] Acute Injury Clinic Nurse Line: [phone] Please contact Acute Injury Clinic Nurse line [...] Filed: 03/09/142053 Note Time: 03/07/14714 Status: Signed Remote Inpatient Coder: Mary Grace Daniel MD (Physician) NAME: RAHAT THOMASON MR#: [id number] CSN: [id number] AUTHENTICATING CLINICIAN: Mary Grace Daniel MD CONFIRM #: [id number] LOC: 711 CLINIC PROGRESS NOTE DATE OF VISIT: 03/04/2014 : 1970 CHIEF COMPLAINT: Elbow pain. This is a 43-year-old female coming in with medial-sided elbow pain and she also has a history of cervical surgery and we obtained an MRI for radicular symptoms. MRI done at [facility] shows: 1. Postoperative changes at C6-7 with [...] ans documented in this encounter Care Teams Research Director Relationship Specialty Start Date End Date Britney Jarrett MD PCP - General 04/15/13 04/03/161999 [place] [address] documented as of this encounter
--- OUTSIDE RECORDS SUMMARY | 2022-05-04 05:33 | XMS_ITS | Encounter Summary ---
:1970 Author Organization [facility] Address [address] [place] [address] Care Team Providers Name Role Phone Britney Jarrett MD Primary Care Provider Encounter Details Date Type Department Care Team Description 02/07/2014 Imaging [facility] Pain in joint, hand [address] [place], [place] [address] Social History Tobacco Use Types [...] hand documented in this encounter Care Teams Railroad Emergency Services Manager Relationship Specialty Start Date End Date Britney Jarrett MD PCP - General 04/15/13 04/03/161999 [place] [address] documented as of this encounter
--- OUTSIDE RECORDS SUMMARY | 2022-05-04 05:33 | XMS_ITS | Encounter Summary ---
:1970 Author Organization [facility] Address [address] [place] [address] Care Team Providers Name Role Phone Britney Jarrett MD Primary Care Provider Reason for Visit Reason Comments Refill Encounter Details Date Type Department Care Team Description 03/10/2014 Refill [facility] nt Care Mary Grace Daniel MD Refill [address] [facility] [facility] [address] [facility] [place], [place] [address] [address] [place] [address] [phone] (Wo rk) Social History Tobacco Use Types [...] Cervicalgia documented in this encounter Care Teams Fishing Boat Mate Relationship Specialty Start Date End Date Britney Jarrett MD PCP - General 04/15/13 04/03/161999 [place] [address] documented as of this encounter
--- OUTSIDE RECORDS SUMMARY | 2022-05-04 05:33 | XMS_ITS | Encounter Summary ---
:1970 Author Organization [facility] Address [address] [place] [address] Care Team Providers Name Role Phone Steve Alston MD Primary Care Provider Encounter Details Date Type Department Care Team Description 02/01/2009 Office Visit [facility] William Quan MD Care [facility] [address] [place] [address] [place], [place] [address] [phone] Social History Tobacco Use Types Packs/Day Years [...] 1555 Note Time: 02/01/09 0001 Status: Signed Tack Puller: William Quan MD (Physician) NAME: RAHAT THOMASON VISIT: [id number] DICTATING CLINICIAN: WILLIAM QUAN MD JOB: [id number] LOC: 3711 CLINIC PROGRESS NOTE DATE OF [...] fingers. She recently had an MRI at [facility] of her cervical spine and would like evaluation for her neck today. The pain is mild to moderate. It is worse with activity and better with rest. No fever and no rash. 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 She is usually healthy with the exception [...] is intact. IMAGING: The MRI report from [facility] was reviewed with the patient and [...] if symptoms worsen or change. DOCUMENT: [id number]. [id number]. nilson documented in this encounter Plan of Treatment Not on filedocumented as of this encounter Visit Diagnoses Not on filedocumented in this encounter Care Teams Trial Judge Relationship Specialty Start Date End Date Steve Alston MD PCP - General 11/05/10 04/14/[address] [place] [address] [address] [place] [place] [address] documented as of this encounter
--- OUTSIDE RECORDS SUMMARY | 2022-05-04 05:33 | XMS_ITS | Encounter Summary ---
:1970 Author Organization [facility] Address [address] [place] [address] Care Team Providers Name Role Phone Madisyn Smalls APRN, CNP Primary Care Provider [phone] Encounter Details Date Type Department Care Team Description 02/02/2007 Orders Only [facility] or Screening for Lipoid [address] [facility] Disorders [place], [place] [address] Social History Tobacco Use [...] Number [facility] [phone] [facility] [address] [address] documented in this encounter Visit Diagnoses Diagnosis Screening for lipoid disorders documented in this encounter Care Teams Turret Punch Operator Relationship Specialty Start Date End Date Madisyn Smalls APRN, ITALIAN TEACHER PCP - General 03/03/02 11/04/10 [address] [place], [place] [address] documented as of this encounter
--- OUTSIDE RECORDS SUMMARY | 2022-05-04 05:33 | XMS_ITS | Encounter Summary ---
:1970 Author Organization [facility] Address [address] [place] [address] Care Team Providers Name Role Phone Steve Alston MD Primary Care Provider Encounter Details Date Type Department Care Team Description 02/01/2009 PN Conversion Only [facility] CONV [address] [facility] [place] [address] Social History Tobacco Use Types Packs/Day Years Used Date Smoking Tobacco: Never Alcohol Use Standard Drinks/Week Comments Not Asked 0 (1 standard drink = 0.6 oz pure alcoho l) 1/mo Sex Assigned at Date Recorded Not on file documented as of this encounter Plan of Treatment Not on filedocumented as of this encounter Visit Diagnoses Not on filedocumented in this encounter Care Teams Physician Advisor Relationship Specialty Start Date End Date Steve Altson MD PCP - General 11/05/10 04/14/[address] [place] [address] [place] [address] documented as of this encounter
--- OUTSIDE RECORDS SUMMARY | 2022-05-04 05:33 | XMS_ITS | Encounter Summary ---
:1970 Author Organization [facility] Address [address] [place] [address] Care Team Providers Name Role Phone Madisyn Smalls APRN, AGUSTIN Primary Care Provider [phone] Reason for Visit Reason Comments LASER TREATMENT tattoo Encounter Details Date Type Department Care Team Description 08/07/2006 Office Visit [facility], Other Plastic Surgery for Un acceptable Cosmetic Appearance; [address] [facility] [address]. 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 [place], [place] [address] [place], [place] [phone] [address] Social History Tobacco Use Types Packs/Day Years Used Date Smoking Tobacco: Never Alcohol Use Standard Drinks/Week Comments Not Asked 0 (1 standard drink = 0.6 oz pure alcoho l) 1/mo Sex Assigned at Date Recorded Not on file documented as of this encounter Consult Notes Hebert Joiner - 08/07/2006 12:00 AM PROCESS LABORATORY SPECIALIST SUBJECTIVE: The patient comes in today for a fourth treatment to the tattoo on her right lateral distal ankle. Again reviewed diagnosis, treatment options and complications with her including but not limited to inefficacy, scarring, discomfort, infection. With her informed consent, procedure was done. She understands there will be a charge of $97 for [employer] and another separate amount for [employer]. PROCEDURE: With all parties present, using appropriate eye protection and using a [employer] Q-switch Nd:YAG laser at 1064 setting, first [...] possibly April also. 08/07/2006 8:43 A cc: ESS LABORATORY SPECIALIST documented in this encounter Plan of Treatment Not on filedocumented as of this encounter Visit Diagnoses Diagnosis Other plastic surgery for unacceptable c osmetic appearance Other dyschromia documented in this encounter Care Teams Paraeducator Relationship Specialty Start Date End Date Madisyn Smalls, DONNIE, DYNAMICS AX CONSULTANT PCP - General 03/03/02 11/04/10 [address] [place] [address] documented as of this encounter
--- OUTSIDE RECORDS SUMMARY | 2022-05-04 05:33 | XMS_ITS | Encounter Summary ---
:1970 Author Organization [employer] Address [address], [place] [address] Care Team Providers Name Role Phone Britney Jarrett MD Primary Care Provider Reason for Visit Reason Comments Elbow Pain Encounter Details Date Type Department Care Team Description 02/23/2014 Office Visit [facility] Mary Grace Mcgowan radiculopathy (Primary Dx); Urgent Care MD [place] H/O cervical spine surgery; [address] [facility] [address] [place] [address] Medial epicond[place] [address] [phone] (Wo rk) Social History Tobacco Use Types [...] Sports & Orthopaedic Medicine Acute Injury Clinic Broadcasting Equipment Mechanic: Kiana Loges Please fax all paperwork correspondence to [phone] Acute Injury Clinic Nurse Line: [phone] Please contact Acute Injury Clinic Nurse line [...] Filed: 02/25/142052 Note Time: 02/25/14954 Status: Signed International Trade Teacher: Mary Grace Daniel MD (Physician) NAME: RAHAT THOMASON MR#: [id number] CSN: [id number] AUTHENTICATING CLINICIAN: Mary Grace Daniel MD CONFIRM [...] she has been working with a personal driver who has been having her laying on [...] that she is working with a personal driver to try to engage range of motion, [...] further. She will have this done at [facility] for claustrophobia and also because this [...] elbow documented in this encounter Care Teams Hot Strip Mill Inspector Relationship Specialty Start Date End Date Britney Jarrett MD PCP - General 04/15/13 04/03/161999 [place] [address] documented as of this encounter
--- OUTSIDE RECORDS SUMMARY | 2022-05-04 05:33 | XMS_ITS | Encounter Summary ---
:1970 Author Organization [facility] Address [address], [place] [address] Care Team Providers Name Role Phone Britney Jarrett MD Primary Care Provider Reason for Visit Reason Comments Foot Pain or Injury Encounter Details Date Type Department Care Team Description 04/15/2013 Office Visit [facility] Orthopedic Jesus Patricio, Rosalina yeboah in (Primary Dx) Urgent Care [address] [facility] [address] [place] [address] [address] [place] [address] [place], [place] [phone] (Wo rk) Social History Tobacco Use Types [...] Sports & Orthopaedic Medicine Acute Injury Clinic Mogul Operator: Kiana Loges Please call [facility] for all administrative questions at [phone] Please contact Nurse Triage for all medical questions at [phone] Please contact your Pharmacy for all medication refill requests documented in this encounter Progress Notes Jesus Patricio MD - 04/15/2013 5:47 PM CDT Progress Notes signed by Jesus Patricio MD at 04/18/13947 Author: Jesus Patricio MD Service: (none) Author Type: Physician Filed: 04/18/13947 Note Time: 04/15/131935 Status: Signed Charge Auditor: Jesus Patricio MD (Physician) NAME: RAHAT THOMASON VISIT: [id number] DICTATING CLINICIAN: EJSUS PATRICIO MD JOB: [id number] Med JOB: [id number] LOC: 3711 CLINIC PROGRESS NOTE DATE OF [...] limb documented in this encounter Care Teams Hand Packer/Packager Relationship Specialty Start Date End Date Britney Jarrett MD PCP - General 04/15/13 04/03/161999 [place] [address] documented as of this encounter
--- OUTSIDE RECORDS SUMMARY | 2022-05-04 05:33 | XMS_ITS | Encounter Summary ---
:1970 Author Organization [facility] Address [address] [place] [address] Care Team Providers Name Role Phone Britney Jarrett MD Primary Care Provider Encounter Details Date Type Department Care Team Description 04/15/2013 Imaging [facility] Radiology Toe pain [address] [place], [place] [address] Social History Tobacco Use Types [...] limb documented in this encounter Care Teams Sole Layer Hand Relationship Specialty Start Date End Date Britney Jarrett MD PCP - General 04/15/13 04/03/161999 [place] [address] documented as of this encounter
--- OUTSIDE RECORDS SUMMARY | 2022-05-04 05:33 | XMS_ITS | Encounter Summary ---
:1970 Author Organization [facility] Address [address] [place] [address] Care Team Providers Name Role Phone Madisyn Smalls APRN, CNP Primary Care Provider [phone] Encounter Details Date Type Department Care Team Description 08/07/2006 Correspondence [facility], STATEMENT OF [address] [facility] MD [place] NON-COVERAGE/BENEFICI S. [address] AMELIE AGREEMENT [place], [place] [address] [place], [place] [phone] [address] Social History Tobacco Use Types Packs/Day Years Used Date Smoking Tobacco: Never Alcohol Use Standard Drinks/Week Comments Not Asked 0 (1 standard drink = 0.6 oz pure alcoho l) 1/mo Sex Assigned at Date Recorded Not on file documented as of this encounter Progress Notes [facility] Joiner - 08/07/2006 12:00 AM [facility] HAND documented in this encounter Plan of Treatment Not on filedocumented as of this encounter Visit Diagnoses Not on filedocumented in this encounter Care Teams Cyber Intel Planner Relationship Specialty Start Date End Date Madisyn Smalls APRN, CNP PCP - General 03/03/02 11/04/10 [address] [place] [address] documented as of this encounter
--- OUTSIDE RECORDS SUMMARY | 2022-05-04 05:33 | XMS_ITS | Encounter Summary ---
:1970 Author Organization [facility] Address [address] [place] [address] Care Team Providers Name Role Phone Madisyn Smalls APRN, CNP Primary Care Provider [phone] Encounter Details Date Type Department Care Team Description 02/06/2006 Correspondence [facility] Rhys, STATEMENT OF [address] [facility]. MD Hebert NON-COVERAGE S. [address] BENEFICIARY AGREEMENT [place], [place] [address] [place], [place] [phone] [address] Social History Tobacco Use Types Packs/Day Years [...] on filedocumented in this encounter Care Teams Timber Rider Relationship Specialty Start Date End Date Madisyn Smalls APRN, CNP PCP - General 03/03/02 11/04/10 [address] [place] [address] documented as of this encounter
--- OUTSIDE RECORDS SUMMARY | 2022-05-04 05:33 | XMS_ITS | Encounter Summary ---
:1970 Author Organization [facility] Address [address] [place] [address] Care Team Providers Name Role Phone Madisyn Smalls APRN, AGUSTIN Primary Care Provider [phone] Reason for Visit Reason Comments LASER TREATMENT tattoo Encounter Details Date Type Department Care Team Description 02/06/2006 Office Visit [facility], PLASTIC SURGERY NEC; [address] Lisa Amrbosio MD DYSCHROMIA OTHER; [place], [place] [address] DERMATITIS NOS [phone] [place] [address] Social History Tobacco Use Types Packs/Day Years [...] charge of destruction of one lesion for Yecuris of $97 and then $180 fee for [employer] Online, all for each treatment. In addition, on [...] black especially is substantially broken up and claim analyst but even the red heart is broken [...] cause documented in this encounter Care Teams Concrete Batching Plant Operator Relationship Specialty Start Date End Date Madisyn Smalls, DONNIE, FOOD AND BEVERAGE OPERATIONS MANAGER PCP - General 03/03/02 11/04/10 [address] [place] [address] documented as of this encounter
--- OUTSIDE RECORDS SUMMARY | 2022-05-04 05:33 | XMS_ITS | Encounter Summary ---
:1970 Author Organization [facility] Address [address], [place] [address] Care Team Providers Name Role Phone Britney Jarrett MD Primary Care Provider Reason for Visit Reason Comments Refill Encounter Details Date Type Department Care Team Description 05/13/2014 Refill [facility] nt Care Bandar Hernandez MD Refill [address] [facility] [address] [facility] [place] [address] [place] [address] [phone] (Wo rk) Social History Tobacco Use Types [...] on filedocumented in this encounter Care Teams System Developer Associate Manager Relationship Specialty Start Date End Date Britney Jarrett MD PCP - General 04/15/13 04/03/161999 [place] [address] documented as of this encounter
--- OUTSIDE RECORDS SUMMARY | 2022-05-04 05:33 | XMS_ITS | Encounter Summary ---
:1970 Author Organization [employer] Address [address], [place] [address] Care Team Providers Name Role Phone Britney Jarrett MD Primary Care Provider Reason for Visit Reason Comments Hand Therapy Encounter Details Date Type Department Care Team Description 02/10/2014 Initial Consult [facility] Hand Therapy Jagruti Cooper, Medial epicondylitis [address] [facility] OTR/L of elbow (Primary Dx) Drive [address] [facility] [place] [address] [phone] Social History Tobacco Use Types Packs/Day Years [...] developed pain while working out with her corporate sales trainer using free weights. Hand Dominance: Right [...] the summer. Leisure/Sports: Weight lifts with a corporate sales trainer 4x/week, biking, roller blading, kettle pena class, cross fit. Functional Limitations: The patient reports pain and/or difficulty with gripping, carrying, lifting,weight lifting and ADLs that involve resistance such as vacuuming and grocery shopping. SUBJECTIVE: The patient arrives stating that her and her corporate sales trainer are working on strengthening opposite muscles [...] sprain in her hand. Right Left Pain-free trial judge, elbow at 0 degrees extension NT 44 lbs Maximum trial judge, elbow at 90 degrees flexion NT 55 [...] during the day. She was able to trial judge 60# vs. 55# with the counter force [...] in 6 weeks. LTG: Patient will perform hardwood floor sander and weight lift using free weights with [...] minutes Therapist Signature: Jagruti Cooper, OTR/L, T #[id number] Visit #08/08 Charges: Occupational Therapy Evaluation (CPT 73851) Therapeutic Exercise (CPT 30850) 15 minutes Manual Therapy, 1 or more regions (CPT 42160) 8 minutes documented in this encounter Plan of Treatment Not on filedocumented as of this encounter Visit Diagnoses Diagnosis Medial epicondylitis of elbow - Primary documented in this encounter Care Teams Body Design Checker Relationship Specialty Start Date End Date Britney Jarrett MD PCP - General 04/15/13 04/03/161999 [place] [address] documented as of this encounter
--- OUTSIDE RECORDS SUMMARY | 2022-05-04 05:33 | XMS_ITS | Encounter Summary ---
:1970 Author Organization [facility] Address [address] [address] Care Team Providers Name Role Phone Madisyn Smalls APRN, CNP Primary Care Provider [phone] Reason for Visit Reason Onset Date Comments PRESCRIPTION, NOS 09/24/2006 Encounter Details Date Type Department Care Team Description 09/24/2006 Telephone [facility] Madisyn Smalls P RESCRIPTION, NOS [facility] [place]USTIN FIELDS [address] [address] [place] [address] [phone] (Wo rk) Social History Tobacco Use Types [...] in 1 week PLAN: Called RX into [facility] per Dr. Cabrera. ECKER Tanesha Robert - 09/24/2006 8:55 AM CST Left message to call back. ECKER Do Mcpherson - 09/24/2006 8:09 AM CST [...] not in today. Would RX sent to [facility] [place]. ECKER documented in this encounter Plan of Treatment Not on filedocumented as of this encounter Visit Diagnoses Not on filedocumented in this encounter Care Teams Parking Lot Signaler Relationship Specialty Start Date End Date Madisyn Smalls, DONNIE, SPOT WELDER LINE PCP - General 03/03/02 11/04/10 [address] [place] [address] documented as of this encounter
--- OUTSIDE RECORDS SUMMARY | 2022-05-04 05:33 | XMS_ITS | Encounter Summary ---
:1970 Author Organization [facility] Address [address], [place] [address] Care Team Providers Name Role Phone Madisyn Smalls APRN, CNP Primary Care Provider [phone] Reason for Visit Reason Comments ROUTINE HEALTH MAINTENANCE Encounter Details Date Type Department Care Team Description 04/05/2005 Office Visit [facility] Madisyn Smalls P REVENTIVE CARE EXAM (Primary Dx); Practice AGUSTIN FIELDS PREVENTIVE CARE EXAM; [address] [facility] [address] SCREEN MAL NEOP-BREAST,[place] [address] [phone] (Wo rk) Social History Tobacco Use Types [...] Final Value: See Separate Report Performed at [facility] HDL (mg/dl) Date Value 04/02/2004 59 Mammogram done? -Yes, date: neg Where: ig. Bone Density study done? -No testing done. Do you ever feel physically threatened or emotionally afraid -NO Tobacco Status reviewed? (see History Social-Substance) -YES fast food attendant offered? -NOT APPLICABLE. Aspirin taken daily? - NO Health Education given? -YES. Patient's phone [phone] (home) [phone] (work) Kimber Hanson LPN 04/05/2005 10:15 AM Eye exam: L: 20/ 20, R: 20/ 20 Lenses: NO documented in this encounter Plan of Treatment Not on filedocumented as of this encounter Visit Diagnoses Diagnosis Routine general medical examination at [facility] facility - Primary Routine general medical examination at [facility] care facility Breast screening, unspecified documented in this encounter Care Teams Paint Factory Worker Relationship Specialty Start Date End Date Madisyn Smalls APRN, MULTIPLE PUNCH PRESS OPERATOR PCP - General 03/03/02 11/04/10 [address] [place] [address] documented as of this encounter
--- OUTSIDE RECORDS SUMMARY | 2022-05-04 05:33 | XMS_ITS | Encounter Summary ---
:1970 Author Organization [facility] Address [address], [place] [address] Care Team Providers Name Role Phone Steve [place]ston MD Primary Care Provider Encounter Details Date Type Department Care Team Description 09/12/2009 Office Visit [facility] Urgent Jesus Patricio MD [address] [place], [place] [address] [place] [address] [phone] Social History Tobacco Use Types Packs/Day Years [...] 36.5 ??C (97.7 ??F) 09/12/2009 5:23 PM UTILITY TECHNICIAN C: 36 .5 C Respiratory Rate - [...] Filed: 11/24/102125 Note Time: 09/12/092125 Status: Signed Drier Feeder: Jesus Patricio MD (Physician) NAME: RAHAT THOMASON VISIT: [id number] DICTATING CLINICIAN: JESUS PATRICIO MD JOB: [id number] LOC: 3711 CLINIC PROGRESS NOTE DATE OF VISIT: 09/12/2009 SUBJECTIVE: A 39-year-old female who presents for evaluation of left knee pain that is bothering her for quite some time. It just started to get worse over the last week. The patient denies any particular injury. She is quite active with exercise. 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 She complains of difficulty with squatting and [...] would consider imaging with an MRI. DOCUMENT: [id number] ITY TECHNICIAN documented in this encounter Plan of Treatment Not on filedocumented as of this encounter Procedures Procedure Name Priority Date/Time Associated Diagnosis Comme nts XR KNEE LT 3 VIEWS Routine 09/12/2009 5:43 PM Res ults for this UTILITY TECHNICIAN procedure are i n the results section. documented in this encounter Results XR Knee Lt 3 Views (09/12/2009 5:43 PM UTILITY TECHNICIAN) Anatomical Region Laterality Modality Lower Extremity, Knee Other Specimen (Source) Anatomical Location Collection Method / Collectio n Time Received Time / Laterality Volume Narrative 09/12/2009 5:43 PM UTILITY TECHNICIAN Indications: ??Left knee pain. Assessment: ??Negative. Dictating JESUS SAHA MD Procedure Note Jesus Patricio MD - 01/19/2016Format ting of this note might be different from the original. Indications: Left knee pain. Assessment: Negative. Dictating JESUS SAHA MD Jesus Patricio MD RAD GD documented in this encounter Visit Diagnoses Not on filedocumented in this encounter Care Teams Prison Librarian Relationship Specialty Start Date End Date Steve Alston MD PCP - General 11/05/10 04/14/[address] [place] [address] [address] [facility] [place] [address] documented as of this encounter
--- OUTSIDE RECORDS SUMMARY | 2022-05-04 05:33 | XMS_ITS | Encounter Summary ---
:1970 Author Organization [facility] Address [address] [place] [address] Care Team Providers Name Role Phone Madisyn Smalls APRN, CNP Primary Care Provider [phone] Reason for Visit Reason Onset Date Comments INFECTION, SINUS 08/08/2006 Encounter Details Date Type Department Care Team Description 08/08/2006 Telephone [facility] Madisyn Smalls, I NFECTION, SINUS Practice AGUSTIN FIELDS [address] [address] [place] [address] [phone] (Wo rk) Social History Tobacco Use Types [...] these issues and agrees with the plan. ANESTHESIA MANAGER Madisyn Smalls - 08/08/2006 12:33 PM CST Please call patient and let her know I have sent a prescription for Amoxicillin to her pharmacy. Please review home care and Call or return to clinic prn if these symptoms worsen, fail to improve as anticipated, or if new symptoms develop. ANESTHESIA MANAGER Megan Naik - 08/08/2006 12:04 PM CST [...] Provider for recommendation and call her back ANESTHESIA MANAGER Mindy Stoddard - 08/08/2006 11:41 AM CST Friday she started having symptoms of sinus infection. Has green drainage,sinus pressure,headache. Has taken OTC advil and sudafed and this is not very well. [facility]. ANESTHESIA MANAGER documented in this encounter Plan of Treatment Not on filedocumented as of this encounter Visit Diagnoses Diagnosis Sinusitis - Primary Unspecified sinusitis (chronic) documented in this encounter Care Teams Director Of Primary Care Relationship Specialty Start Date End Date Madisyn Smalls, PAINTER AIRCRAFT, REDUCTION PLANT SUPERVISOR PCP - General 03/03/02 11/04/10 [address] [place] [id number] documented as of this encounter
--- OUTSIDE RECORDS SUMMARY | 2022-05-04 05:33 | XMS_ITS | Encounter Summary ---
:1970 Author Organization [facility] Address [address], [place] [address] Care Team Providers Name Role Phone Luis Smalls APRN, CNP Primary Care Provider [phone] Reason for Visit Reason Comments ROUTINE HEALTH MAINTENANCE Encounter Details Date Type Department Care Team Description 02/05/2007 Office Visit [facility] Luis Smalls R outine General Medical Examination at Health Care Facility (Primary Dx); Practice [facility] FIELDS Breast Screening, Unspecified; [address] [facility] [address] [facility] Screening for Malignant [place] [address] [phone] (Wo rk) Social History Tobacco Use Types [...] documented in this encounter Patient Instructions Patient Yucgrzlkixjv92/05/2007 3:16 PM CDT Body mass index is [...] Component Value Ref Test Analysis Performed At [facility] Range Method Time Signature Cytology, (NOTE) Chubbies Shorts Pap Site Safety Representative Cytology Report Patient Name: RAHAT THOMASON Taken: 02/05/2007 Received: 02/06/2007 Reported: 02/16/2007 Physician(s): LUIS SMALLS ([id number]) ?Source of Specimen Liquid routine Pap, cervical/endocervical: [...] Phon e Number [facility] [phone] [address] documented in this encounter Visit Diagnoses Diagnosis Routine general medical examination at [facility] facility - Primary Routine general medical examination at a [facility] facility Breast screening, unspecified Screening for malignant neoplasm of the cervix documented in this encounter Care Teams Chief Supply Chain Officer Relationship Specialty Start Date End Date Luis Smalls APRN, CNP PCP - General 03/03/02 11/04/10 [address] [place] [address] documented as of this encounter
--- OUTSIDE RECORDS SUMMARY | 2022-05-04 05:33 | XMS_ITS | Encounter Summary ---
:1970 Author Organization [facility] Address [address], [place] [address] Care Team Providers Name Role Phone Britney Jarrett MD Primary Care Provider Encounter Details Date Type Department Care Team Description 03/02/2014 Imaging P3930 RADIOLOGY [facility] [address] [place] [address] Social History Tobacco Use Types Packs/Day Years [...] filedocumented in this encounter Care Teams Retail Bakery Manager Relationship Specialty Start Date End Date Britney Jarrett MD PCP - General 04/15/13 04/03/161999 [place] [address] documented as of this encounter
--- OUTSIDE RECORDS SUMMARY | 2022-05-04 05:33 | XMS_ITS | Encounter Summary ---
:1970 Author Organization [facility] Address [address] [place] [address] Care Team Providers Name Role Phone Steve Alston MD Primary Care Provider Encounter Details Date Type Department Care Team Description 12/04/2010 PN Conversion Only CONVERSION CONVERSION Steve Alston MD [address] [facility] 5 [place], [place] [address] (Wo rk) Social History Tobacco [...] on filedocumented in this encounter Care Teams Structural Steel Worker Relationship Specialty Start Date End Date Steve Alston MD PCP - General 11/05/10 04/14/[address] [place] [address] documented as of this encounter
--- OUTSIDE RECORDS SUMMARY | 2022-05-04 05:33 | XMS_ITS | Encounter Summary ---
:1970 Author Organization [facility] Address [address] [place] [address] Care Team Providers Name Role Phone Madisyn Smalls APRN, CNP Primary Care Provider [phone] Reason for Visit Reason Comments LASER TREATMENT Encounter Details Date Type Department Care Team Description 03/06/2006 Office Visit [facility] MADHU Joiner (UNSPECIFIED); [address] [place] [address] Lisa Ambrosio MD DYSCHROMIA UNSPECIFIED [place], [place] [address] [facility] [phone] [place] [address] Social History Tobacco Use Types Packs/Day Years [...] face, however. She was to see another story writer who thought she might have had melasma [...] unspecified documented in this encounter Care Teams Millinery Department Manager Relationship Specialty Start Date End Date Madisyn Smalls, PROFESSIONAL DEVELOPMENT DIRECTOR, MOLTEN IRON POURER PCP - General 03/03/02 11/04/10 [address] [place] [address] documented as of this encounter
--- OUTSIDE RECORDS SUMMARY | 2022-05-04 05:33 | XMS_ITS | Encounter Summary ---
:1970 Author Organization [facility] Address [address] [address] Care Team Providers Name Role Phone Madisyn Smalls APRN, CNP Primary Care Provider [phone] Reason for Visit Reason Comments Follow-up, NOS sore throat Encounter Details Date Type Department Care Team Description 03/07/2005 Office Visit [facility] Jose E Angeles TE PHARYNGITIS(SORE Practice JMD THROAT) (Primary Dx) [address] [place] [address] [facility] ANE [address] [place], [place] [phone] [address] Social History Tobacco Use Types Packs/Day Years [...] A, RAPID SCREEN (03/07/2005 4:05 PM CDT) [facility] Method Time Signature Patient Home None [facility] [...] Code Phon e Number [facility] [phone] [facility] [address] [address] documented in this encounter Visit Diagnoses Diagnosis Acute pharyngitis - Primary documented in this encounter Care Teams Cash Register Mechanic Relationship Specialty Start Date End Date Madisyn Smalls, MEMBERSHIP SALES MANAGER, SALES ASSISTANT INSTITUTIONAL SALES PCP - General 03/03/02 11/04/10 [address] [place] [address] documented as of this encounter
--- OUTSIDE RECORDS SUMMARY | 2022-05-04 05:33 | XMS_ITS | Encounter Summary ---
:1970 Author Organization [facility] Address [address] [facility] [place] [address] Care Team Providers Name Role Phone Madisyn Smalls APRN, CNP Primary Care Provider [phone] Reason for Visit Reason Comments LASER TREATMENT Encounter Details Date Type Department Care Team Description 02/05/2007 Office Visit [facility], Other Plastic Surgery for Un acceptable Cosmetic Appearance; [address] [facility]. 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 [place], [place] [address] [place], [place] [phone] Social History Tobacco Use Types Packs/Day Years [...] would be a charge of $140 to [facility] [employer] and an independent fee to mojio, procedure was done. PROCEDURE: using appropriate eye protection using the Morning Tec Q-Switched Nd:YAG laser at 1064 wavelength 1000 [...] dyschromia documented in this encounter Care Teams Director Operating Relationship Specialty Start Date End Date Madisyn Smalls, DONNIE, BPM DEVELOPER PCP - General 03/03/02 11/04/10 [address] [place] [address] documented as of this encounter
[2022-05-04 05:34] LABS: Basophils Absolute Auto 0.01 K/uL (0.00-0.30); Basophils Percent Auto 0.1 % (0.0-3.0); Eosinophils Absolute Auto 0.01 K/uL (0.00-0.50); Eosinophils Percent Auto 0.1 % (0.0-7.0); Hematocrit 43.8 % (33.0-51.0); Hemoglobin* 14.8 gm/dL (12.0-16.0); Immature Granulocytes Abs Auto 0.01 K/uL (0.00-0.30); Lymphocytes Percent Auto 3.5 % (20-44); Mean Corpuscular HGB Conc 34 gm/dL (32-36); Mean Corpuscular Hemoglobin 28 pg (26-34); Mean Corpuscular Volume 84 fL (80-100); Monocytes Percent Auto 5.7 % (0.0-11.0); Neutrophils Percent Auto 90.5 % (42.0-72.0); Platelet Count* 262 K/uL (140-440); RDW Coefficient of Variation % 12.7 % (11.5-15.5); Red Blood Count 5.21 m/uL (4.00-5.20); White Blood Count* 8.77 K/uL (4.50-11.00)
--- OUTSIDE RECORDS SUMMARY | 2022-05-04 05:34 | XMS_ITS | Encounter Summary ---
:1970 Author Organization [facility] Address [address] [place] [address] Care Team Providers Name Role Phone Madisyn Smalls APRN, CNP Primary Care Provider [phone] Encounter Details Date Type Department Care Team Description 05/17/2002 Office Visit [facility] Madisyn Smalls G YNECOLOGIC EXAMINATION; Practice AGUSTIN FIELDS ACUTE URI NOS; [address] [facility] [address] 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 She works for [...] cervix documented in this encounter Care Teams Tray Casting Machine Operator Relationship Specialty Start Date End Date Madisyn Smalls, DONNIE, AGITATOR OPERATOR PCP - General 03/03/02 11/04/10 [address] [place] [address] documented as of this encounter
--- OUTSIDE RECORDS SUMMARY | 2022-05-04 05:34 | XMS_ITS | Encounter Summary ---
:1970 Author Organization [facility] Address [address], [place] [address] Care Team Providers Name Role Phone Madisyn Smalls APRN, CNP Primary Care Provider [phone] Encounter Details Date Type Department Care Team Description 03/14/2003 Office Visit [facility] Joiner MD [address] [facility] [address] [place], [place] [address] [place] [address] [phone] (Wo rk) Social History Tobacco Use Types [...] on filedocumented in this encounter Care Teams Registered Nurse Maternity Relationship Specialty Start Date End Date Madisyn Smalls APRN, CNP PCP - General 03/03/02 11/04/10 [address] [place] [address] documented as of this encounter
--- OUTSIDE RECORDS SUMMARY | 2022-05-04 05:34 | XMS_ITS | Encounter Summary ---
:1970 Author Organization [facility] Address [address] [place] [address] Care Team Providers Name Role Phone Madisyn Smalls APRN, CNP Primary Care Provider [phone] Reason for Visit Reason Comments SINUS PAIN/PRESSURE Encounter Details Date Type Department Care Team Description 01/20/2003 Telephone Careline Wendy Mcknight SINUS PAIN/PRESSURE [address] Lisa Menjivar RN [place], [place] [address] Social History Tobacco Use Types Packs/Day Years Used Date Smoking Tobacco: Never Assessed Sex Assigned at Date Recorded Not on file documented as of this encounter Nursing Notes 01/20/2003 11:59 PM CDT >> WENDY MCKNIGHT [facility] Jan 20, 2003 8:57 AM >> CALL RECEIVED. Contact: self [phone] Triage Reference: SINUS CONGESTION AND PAIN - [...] for her. Caller can be reached at [phone] and would like a call with further instruction s regarding a Rx to be picked up. Caller would like Rx called in to [facility] [phone]. documented in this encounter Plan of Treatment Not on filedocumented as of this encounter Visit Diagnoses Not on filedocumented in this encounter Care Teams Racing Manager Relationship Specialty Start Date End Date Madisyn Smalls, DONNIE, SKIVER HAND PCP - General 03/03/02 11/04/10 [address] [place] [address] documented as of this encounter
--- OUTSIDE RECORDS SUMMARY | 2022-05-04 05:34 | XMS_ITS | Encounter Summary ---
:1970 Author Organization [facility] Address [address] [place] [address] Care Team Providers Name Role Phone Madisyn Smalls APRN, CNP Primary Care Provider [phone] Encounter Details Date Type Department Care Team Description 02/22/2003 Orders Only [facility] Family Ciaran [address] [place], [place] [address] UNASSIGNED CLINIC [phone] 00 00, [address] Social History Tobacco Use Types Packs/Day Years [...] STREP SCREEN (WAITI (02/22/2003 11:36 AM CDT) [facility] gist Method Time Signature Patient Home [id number] [facility] Phone # Patient Work None [facility] Phone # Grp A Rapid Positive (A) Spectral Image Screen Specimen Anatomical Collection Method Collection Time Receive d Time (Source) Location / / Volume Laterality 02/22/2003 11:36 02/22/2003 AM CDT 11:37 AM CDT [facility] LAB_1 Performing Organization Address City/State/ZIP Code Phon e Number [facility] [phone] [facility] [address] [place] [address] [place] [address] documented in this encounter Visit Diagnoses Not on filedocumented in this encounter Care Teams Bottle Tester Relationship Specialty Start Date End Date Madisyn Smalls APRN, QUALITY COMPLIANCE CONSULTANT PCP - General 03/03/02 11/04/10 [address] [place], [place] [address] documented as of this encounter
--- OUTSIDE RECORDS SUMMARY | 2022-05-04 05:34 | XMS_ITS | Encounter Summary ---
:1970 Author Organization [facility] Address [address] [address] Care Team Providers Name Role Phone Madisyn Smalls APRN, AGUSTIN Primary Care Provider [phone] Encounter Details Date Type Department Care Team Description 01/30/2004 Telephone [facility] Hebert Joiner MD [address] [facility] 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 It did blister a bit and is [...] on filedocumented in this encounter Care Teams Microfilm Camera Operator Relationship Specialty Start Date End Date Madisyn Smalls APRN, SCALES INSPECTOR PCP - General 03/03/02 11/04/10 [address] [place] [address] documented as of this encounter
--- OUTSIDE RECORDS SUMMARY | 2022-05-04 05:34 | XMS_ITS | Encounter Summary ---
:1970 Author Organization [facility] Address [address] [place] [address] Care Team Providers Name Role Phone Madisyn Smalls APRN, CNP Primary Care Provider [phone] Encounter Details Date Type Department Care Team Description 09/11/2002 Orders Only [facility] [address] [place], [place] [address] Social History Tobacco Use Types Packs/Day Years Used Date Smoking Tobacco: Never Assessed Sex Assigned at Date Recorded Not on file documented as of this encounter Plan of Treatment Not on filedocumented as of this encounter Procedures Procedure Name Priority Date/Time Associated Diagnosis Comme nts STREP GRP A, RAPID Waiting 09/11/2002 10:23 AM Re sults for this SCREEN FILLER WIPER procedure are i n the results section. documented in this encounter Results RAPID, GPA STREP SCREEN (WAITI (09/11/2002 10:23 AM FILLER WIPER) [facility] Method Time Signature Patient Home None [facility] Phone # Patient Work None [employer] Phone # Grp A Rapid Negative [id number] Screen Grp A Culture Negative [employer] Final Specimen Anatomical Collection Method Collection Time Receive d Time (Source) Location / / Volume Laterality 09/11/2002 10:23 09/11/2002 AM FILLER WIPER 10:24 AM FILLER WIPER [facility] LAB_1 Performing Organization Address City/State/ZIP Code Phon e Number [facility] [phone] [employer] [address] [address] documented in this encounter Visit Diagnoses Not on filedocumented in this encounter Care Teams Pattern Changer And Repairer Relationship Specialty Start Date End Date Madisyn Smalls, DONNIE, OIL WINTERIZER PCP - General 03/03/02 11/04/10 [address] [place] [address] documented as of this encounter
--- OUTSIDE RECORDS SUMMARY | 2022-05-04 05:34 | XMS_ITS | Encounter Summary ---
:1970 Author Organization [facility] Address [address] [place] [address] Care Team Providers Name Role Phone Luis Smalls APRN, CNP Primary Care Provider [phone] Encounter Details Date Type Department Care Team Description 05/17/2002 Orders Only Luis Smalls APRN, AGUSTIN [address] [place] [address] (Wo rk) Social History Tobacco [...] PAP SMEAR, ROUTINE (05/17/2002 12:00 AM CDT) [facility] Method Time Signature Cytology, Pap (NOTE) [facility] Locomotive Mechanic Apprentice Cytology Report Patient Name: RAHAT THOMASON Taken: 05/17/02 Received: 05/18/02 Reported: 05/20/02 Physician(s): LUIS SMALLS ([id number]) ? [id number] Final Cytologic Diagnosis Cervical Endocervical,routine: ? Satisfactory [...] Smalls APRN, CNP LAB_1 Performing Organization Address City/State/[facility] Phon e Number [address] [address] [place], [place] [phone] documented in this encounter Visit Diagnoses Not on filedocumented in this encounter Care Teams Bellstand Attendant Relationship Specialty Start Date End Date Luis Smalls APRN, CONTROL ROOM AGENT PCP - General 03/03/02 11/04/10 [address] [place] [address] documented as of this encounter
--- OUTSIDE RECORDS SUMMARY | 2022-05-04 05:34 | XMS_ITS | Encounter Summary ---
:1970 Author Organization [facility] Address [address], [place] [address] Care Team Providers Name Role Phone Madisyn Smalls APRN, CNP Primary Care Provider [phone] Encounter Details Date Type Department Care Team Description 06/17/2002 Office [facility] Jose E [place] [address] [place] [address] ANITHA WALLACE [address] [place], [place] [phone] [address] Social History Tobacco Use Types Packs/Day Years Used Date Smoking Tobacco: Never Assessed Sex Assigned at Date Recorded Not on file documented as of this encounter Progress Notes Jose E Angeles - 06/17/2002 12:00 AM TELETYPE TECHNICIAN TYPE TECHNICIAN documented in this encounter Plan of Treatment Not on filedocumented as of this encounter Visit Diagnoses Diagnosis VACCINE FOR INFLUENZA documented in this encounter Care Teams Time Study Engineer Relationship Specialty Start Date End Date Madisyn Smalls APRN, CNP PCP - General 03/03/02 11/04/10 [address] [place] [address] documented as of this encounter
--- OUTSIDE RECORDS SUMMARY | 2022-05-04 05:34 | XMS_ITS | Encounter Summary ---
:1970 Author Organization [facility] Address [address] [place] [address] Care Team Providers Name Role Phone Madisyn Smalls APRN, CNP Primary Care Provider [phone] Encounter Details Date Type Department Care Team Description 03/08/2004 Correspondence [facility] MAHESH Joiner [facility] [facility] MD Hebert SURGICAL/LASER [address]. [address] PROCEDURE [place], [place] [address] [place], [place] [phone] [address] Social History Tobacco Use Types Packs/Day Years Used Date Smoking Tobacco: Never Assessed Sex Assigned at Date Recorded Not on file documented as of this encounter Progress Notes Hebret Joiner - 03/08/2004 12:00 AM CDT documented in this encounter Plan of Treatment Not on filedocumented as of this encounter Visit Diagnoses Not on filedocumented in this encounter Care Teams Science Technician Relationship Specialty Start Date End Date Madisyn Smalls APRN, CNP PCP - General 03/03/02 11/04/10 [address] [place] [address] documented as of this encounter
--- OUTSIDE RECORDS SUMMARY | 2022-05-04 05:34 | XMS_ITS | Encounter Summary ---
:1970 Author Organization [facility] Address [address] [place] [address] Care Team Providers Name Role Phone Madisyn Smalls APRN, AGUSTIN Primary Care Provider Encounter Details Date Type Department Care Team Description 03/08/2004 Office Visit [facility] Rhys, PLASTIC SURGERY NEC; [address] [place] [facility]. Lisa Ambrosio MD DYSCHROMIA OTHER [place], [place] [address] [address] [facility] [phone] [place] [address] Social History Tobacco Use Types Packs/Day Years [...] month for that. She knows that [facility] will charge her today. The central red [...] 2mm spot size and 10.5 J/cm2 increasing shelter through treatment to 11.5 J/cm2 were applied [...] dyschromia documented in this encounter Care Teams Special Ed Assistant Relationship Specialty Start Date End Date Madisyn Smalls APRN, CORONER'S JUROR PCP - General 03/03/02 11/04/10 [address] [place] [address] documented as of this encounter
--- OUTSIDE RECORDS SUMMARY | 2022-05-04 05:34 | XMS_ITS | Encounter Summary ---
:1970 Author [facility] Address [address], [place] [address] Care Team Providers Name Role Phone Madisyn Smalls APRN, CNP Primary Care Provider [phone] Encounter Details Date Type Department Care Team Description 06/14/2003 Office Visit [facility] Ximena Kelly MD VACCINE FOR INFLUENZA Department [address] [place] [address] [place] [address] [phone] Social History Tobacco Use Types Packs/Day Years Used Date Smoking Tobacco: Never Assessed Sex Assigned at Date Recorded Not on file documented as of this encounter Progress Notes Ruddy Kelly - 06/14/2003 12:00 AM FUEL BUYER BUYER documented in this encounter Plan of Treatment Not on filedocumented as of this encounter Visit Diagnoses Diagnosis VACCINE FOR INFLUENZA documented in this encounter Care Teams Shirt Maker Relationship Specialty Start Date End Date Madisyn Smalls APRN, CNP PCP - General 03/03/02 11/04/10 [address] [place] [address] documented as of this encounter
--- OUTSIDE RECORDS SUMMARY | 2022-05-04 05:34 | XMS_ITS | Encounter Summary ---
:1970 Author Organization [facility] Address [address] [place] [address] Care Team Providers Name Role Phone Madisyn Smalls APRN, CNP Primary Care Provider [phone] Encounter Details Date Type Department Care Team Description 03/08/2004 Correspondence None Unknown, Physici an CONSENT/ RELEASE [address] [place], [place] [address] (Wo rk) Social History Tobacco Use Types Packs/Day Years Used Date Smoking Tobacco: Never Assessed Sex Assigned at Date Recorded Not on file documented as of this encounter Progress Notes Unknown, Physician - 03/08/2004 12:00 AM CDT documented in this encounter Plan of Treatment Not on filedocumented as of this encounter Visit Diagnoses Not on filedocumented in this encounter Care Teams Digital Marketing Assistant Relationship Specialty Start Date End Date Madisyn Smalls APRN, CNP PCP - General 03/03/02 11/04/10 [address] [place] [address] documented as of this encounter
--- OUTSIDE RECORDS SUMMARY | 2022-05-04 05:34 | XMS_ITS | Encounter Summary ---
:1970 Author Organization [facility] Address [address] [place] [address] Care Team Providers Name Role Phone Steve Alston MD Primary Care Provider Encounter Details Date Type Department Care Team Description 12/05/2003 Correspondence External to External, Provid er LASER [place] [address] Social History Tobacco Use Types Packs/Day Years Used Date Smoking Tobacco: Never Assessed Sex Assigned at Date Recorded Not on file documented as of this encounter Progress Notes Interface, In Chrtscr And Scan - 07/22/2011 9:51 AM MOLDED GRID AND PARTS INSPECTOR ED GRID AND PARTS INSPECTOR documented in this encounter Plan of Treatment Not on filedocumented as of this encounter Visit Diagnoses Not on filedocumented in this encounter Care Teams Vending Machine Technician Relationship Specialty Start Date End Date Steve Alston MD PCP - General 11/05/10 04/14/[address] [place] [address] documented as of this encounter
--- OUTSIDE RECORDS SUMMARY | 2022-05-04 05:34 | XMS_ITS | Encounter Summary ---
:1970 Author Organization [facility] Address [address] [place] [address] Care Team Providers Name Role Phone Madisyn Smalls APRN, CNP Primary Care Provider [phone] Encounter Details Date Type Department Care Team Description 03/03/2003 Orders Only External to [facility] Unknown, Physici an [address] [place], [place] [address] (Wo rk) Social History Tobacco Use Types [...] on filedocumented in this encounter Care Teams Advertising Editor Relationship Specialty Start Date End Date Madisyn Smalls APRN, CNP PCP - General 03/03/02 11/04/10 [address] [facility] [place] [address] documented as of this encounter
--- OUTSIDE RECORDS SUMMARY | 2022-05-04 05:34 | XMS_ITS | Encounter Summary ---
:1970 Author Organization [employer] Address [address] [place] [address] Care Team Providers Name Role Phone Madisyn Smalls APRN, CNP Primary Care Provider [phone] Encounter Details Date Type Department Care Team Description 05/08/2002 [facility] Visit [facility] HEARING LOSS NOS; [address] [facility] OTALGIA NOS [place], [place] [address] Social History Tobacco Use [...] unspecified documented in this encounter Care Teams Simulation Software Engineer Relationship Specialty Start Date End Date Madisyn Smalls APRN, TRIAGE LICENSED PRACTICAL NURSE PCP - General 03/03/02 11/04/10 [address] [place] [address] documented as of this encounter
--- OUTSIDE RECORDS SUMMARY | 2022-05-04 05:34 | XMS_ITS | Encounter Summary ---
:1970 Author Organization [facility] Address [address] [address] Care Team Providers Name Role Phone Madisyn Smalls APRN, CNP Primary Care Provider [phone] Encounter Details Date Type Department Care Team Description 08/26/2004 [facility] Visit [facility] [place] ACUTE URI NOS; [address] [facility] ACUTE SINUSITIS NOS [place], [place] [address] Social History Tobacco Use Types Packs/Day Years Used Date Smoking Tobacco: Never Assessed Alcohol Use Standard Drinks/Week Comments Not Asked 0 (1 standard drink = 0.6 oz pure alcoho l) Sex Assigned at Date Recorded Not on file documented as of this encounter Last Filed Vital Signs Vital Sign Reading Time Taken Comments Blood Pressure 116/70 08/26/2004 2:15 PM ELECTRICAL MAINTENANCE MAN Pulse 82 08/26/2004 2:15 PM ELECTRICAL MAINTENANCE MAN Temperature 37.2 ??C (98.9 ??F) 08/26/2004 2:15 PM ELECTRICAL MAINTENANCE MAN Respiratory Rate 14 08/26/2004 2:15 PM ELECTRICAL MAINTENANCE MAN Oxygen Saturation - - Inhaled Oxygen Concentration - - Weight - - Height - - Body Mass Index - - documented in this encounter Progress Notes 08/26/2004 2:15 PM ELECTRICAL MAINTENANCE MAN Room # na Rooming time: 2:27 PM [...] mistreated by someone important to you? -NO cabana attendant offered -NOT APPLICABLE. Health Education given -NO. Primary provider: Madisyn Smalls NP Contact phone number [phone] (home) [phone] (work) Alternate phone number - Lauren Gutierrez LPN 08/26/2004 2:27 PM Current outpatient prescriptions: MULTIPLE VITAMIN TABS,Take 1 tablet by mouth once a day,Disp: 30,Rfl: prn VITAMIN C 500MG ORAL TABS,1 tab daily,Disp: 30,Rfl: 0 VITAMIN E 400UNIT ORAL CAPS,1 tab daily,Disp: 30,Rfl: 0 Nka, , Luzma Marquez - 08/26/2004 12:00 AM CSTSUBJECTIVE: Ulkeiu-mpk-kzwv-old who has had a cold for about [...] as the primary infection. 11:13 P cc: TRICAL MAINTENANCE MAN documented in this encounter Plan of Treatment Not on filedocumented as of this encounter Visit Diagnoses Diagnosis Acute upper respiratory infections of un specified site Acute sinusitis, unspecified documented in this encounter Care Teams Metal Bonder Relationship Specialty Start Date End Date Madisyn Smalls, ROLL GRINDER OPERATOR, PROFESSIONAL SKATEBOARDER PCP - General 03/03/02 11/04/10 [address] [place] [address] documented as of this encounter
--- OUTSIDE RECORDS SUMMARY | 2022-05-04 05:34 | XMS_ITS | Encounter Summary ---
:1970 Author Organization [facility] Address [address] [place] [address] Care Team Providers Name Role Phone Madisyn Smalls APRN, CNP Primary Care Provider [phone] Encounter Details Date Type Department Care Team Description 11/01/2002 Telephone [facility] Madisyn Smalls, Harris PRN, Practice [facility] [address] [facility] [address] [place], [place] [address] [place] [address] [phone] (Wo rk) Social History Tobacco Use Types Packs/Day Years Used Date Smoking Tobacco: Never Assessed Sex Assigned at Date Recorded Not on file documented as of this encounter Nursing Notes Madisyn Smalls - 11/01/2002 12:00 AM CIVIL DRAFTSMAN L DRAFTSMAN documented in this encounter Plan of Treatment Not on filedocumented as of this encounter Visit Diagnoses Not on filedocumented in this encounter Care Teams Superintendent Building Relationship Specialty Start Date End Date Madisyn Smalls APRN, CNP PCP - General 03/03/02 11/04/10 [address] [place] [address] documented as of this encounter
--- OUTSIDE RECORDS SUMMARY | 2022-05-04 05:34 | XMS_ITS | Encounter Summary ---
:1970 Author Organization [facility] Address [address] [place] [address] Care Team Providers Name Role Phone Madisyn Smalls APRN, AGUSTIN Primary Care Provider [phone] Encounter Details Date Type Department Care Team Description 03/08/2003 Office Visit [facility] [facility] Rhys, BENIGN SARAH SKIN LEG; [address] Lisa Ambrosio MD INTEGUMENT TISS SYMP [place], [place] [address] [address] [facility] [phone] [place], [place] [address] Social History Tobacco Use Types Packs/Day Years [...] tissues documented in this encounter Care Teams Regional Engagement Consultant Relationship Specialty Start Date End Date Madisyn Smalls APRN, COSTUMING SUPERVISOR PCP - General 03/03/02 11/04/10 [address] [place] [address] documented as of this encounter
--- OUTSIDE RECORDS SUMMARY | 2022-05-04 05:34 | XMS_ITS | Encounter Summary ---
:1970 Author Organization [facility] Address [address], [place] [address] Care Team Providers Name Role Phone Madisyn Smalls APRN, CNP Primary Care Provider [phone] Encounter Details Date Type Department Care Team Description 08/26/2004 Emergency Room [facility] Luzma Marquez, Return to work/[facility] MD arreguin [address] [address] [place], [place] [phone] [address] Social History Tobacco Use Types Packs/Day Years Used Date Smoking Tobacco: Never Assessed Alcohol Use Standard Drinks/Week Comments Not Asked 0 (1 standard drink = 0.6 oz pure alcoho l) Sex Assigned at Date Recorded Not on file documented as of this encounter Progress Notes Luzma Marquez - 08/26/2004 12:00 AM ELECTRIC MULE OPERATOR TRIC MULE OPERATOR documented in this encounter Plan of Treatment Not on filedocumented as of this encounter Visit Diagnoses Not on filedocumented in this encounter Care Teams Foundry Process Engineer Relationship Specialty Start Date End Date Madisyn Smalls APRN, CNP PCP - General 03/03/02 11/04/10 [address] [place] [address] documented as of this encounter
--- OUTSIDE RECORDS SUMMARY | 2022-05-04 05:34 | XMS_ITS | Encounter Summary ---
:1970 Author Organization [facility] Address [address] [place] [address] Care Team Providers Name Role Phone Madisyn Smalls APRN, CNP Primary Care Provider [phone] Encounter Details Date Type Department Care Team Description 02/22/2003 Office Visit [place] [facility] Nurse, Adult Av STRE P SORE THROAT Department [address] [place] [address] 55 24 Social History Tobacco Use Types [...] Cameron Pineda per Pt request. Phone number: [phone] (home) [phone] (work), alternate number . Wanda Hinkle LPN, 11:32 AM 02/22/2003 documented in this encounter Plan of Treatment Not on filedocumented as of this encounter Visit Diagnoses Diagnosis Streptococcal sore throat documented in this encounter Care Teams Senior Investment Analyst Relationship Specialty Start Date End Date Madisyn Smalls APRN, METHODS ENGINEER PCP - General 03/03/02 11/04/10 [address] [place] [address] documented as of this encounter
--- OUTSIDE RECORDS SUMMARY | 2022-05-04 05:34 | XMS_ITS | Encounter Summary ---
:1970 Author Organization [facility] Address [address] [place] [address] Care Team Providers Name Role Phone Madisyn Smalls APRN, CNP Primary Care Provider [phone] Encounter Details Date Type Department Care Team Description 01/20/2003 Office Visit [facility] Madisyn Smalls, Practice AGUSTIN FIELDS [address] [facility] [address] [place], [place] [address] [place] [address] [phone] (Wo rk) Social History Tobacco Use Types Packs/Day Years Used Date Smoking Tobacco: Never Assessed Sex Assigned at Date Recorded Not on file documented as of this encounter Progress Notes Madisyn Smalls - 01/20/2003 12:00 AM CDT documented in this encounter Plan of Treatment Not on filedocumented as of this encounter Visit Diagnoses Not on filedocumented in this encounter Care Teams Visual Communications Instructor Relationship Specialty Start Date End Date Madisyn Smalls APRN, CNP PCP - General 03/03/02 11/04/10 [address] [place] [address] documented as of this encounter
--- OUTSIDE RECORDS SUMMARY | 2022-05-04 05:34 | XMS_ITS | Encounter Summary ---
:1970 Author Organization [facility] Address [address] [place] [address] Care Team Providers Name Role Phone Steve Alston MD Primary Care Provider Encounter Details Date Type Department Care Team Description 06/08/2003 PN Conversion Only SUPPLIER QUALITY 3800 CONV [address] [facility] [place] [address] Social History Tobacco Use Types Packs/Day Years Used Date Smoking Tobacco: Never Assessed Sex Assigned at Date Recorded Not on file documented as of this encounter Plan of Treatment Not on filedocumented as of this encounter Visit Diagnoses Not on filedocumented in this encounter Care Teams Manager Ent Relationship Specialty Start Date End Date Steve Alston MD PCP - General 11/05/10 04/14/[address] [place] [address] [address] [place] [place] [address] documented as of this encounter
--- OUTSIDE RECORDS SUMMARY | 2022-05-04 05:34 | XMS_ITS | Encounter Summary ---
:1970 Author Organization [facility] Address [address] [place] [address] Care Team Providers Name Role Phone Madisyn Smalls APRN, AGUSTIN Primary Care Provider [phone] Encounter Details Date Type Department Care Team Description 03/03/2003 Office Visit [facility], BONE/SKIN NEOPLASM NOS; [address] Lisa Ambrosio MD BENIGN NEOPLASM SKIN NEC; [place], [place] [address] DYSCHROMIA OTHER; [phone] [place], [place] BENIGN SARAH SK IN LEG [id number] Social History Tobacco Use Types Packs/Day Years [...] it. 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
--- OUTSIDE RECORDS SUMMARY | 2022-05-04 05:34 | XMS_ITS | Encounter Summary ---
:1970 Author Organization [facility] Address [address], [place] [address] Care Team Providers Name Role Phone Madisyn Smalls APRN, CNP Primary Care Provider [phone] Encounter Details Date Type Department Care Team Description 04/02/2004 Office Visit [facility] Madisyn Smalls P REVENTIVE CARE EXAM Practice AGUSTIN FIELDS [address] [address] [phone] (Wo rk) Social History Tobacco Use Types [...] Final Value: See Separate Report Performed at [facility] CHOLESTEROL (mg/dl) Date Value 08/08/1998 166 HDL (mg/dl) Date Value 08/08/1998 54 Mammogram done? -Yes, date: neg Where: ig. Bone Density study done? -No testing done. Do you ever feel physically threatened or emotionally afraid -NO Tobacco Status reviewed? (see History Social-Substance) -YES front counter attendant offered? -NOT APPLICABLE. Aspirin taken daily? - NO Health Education given? -YES. Patient's phone [phone] (home) [phone] (work) Kimber Hanson LPN 04/02/2004 1:14 PM [...] Diagnoses Diagnosis Routine general medical examination at [facility] Routine general medical examination at a [facility] care facility documented in this encounter Care Teams Partner Alliance Manager Relationship Specialty Start Date End Date Madisyn Smalls APRN, TECHNICIAN TEST SYSTEMS PCP - General 03/03/02 11/04/10 [address] [place] [address] documented as of this encounter
--- OUTSIDE RECORDS SUMMARY | 2022-05-04 05:34 | XMS_ITS | Encounter Summary ---
:1970 Author Organization [facility] Address [address] [place] [address] Care Team Providers Name Role Phone Madisyn Smalls APRN, CNP Primary Care Provider [phone] Encounter Details Date Type Department Care Team Description 12/08/2003 Correspondence [facility] MAHESH Joiner CON[facility] TO [address] [facility] MD Hebert SURGICAL / LASER S. [address] PROCEDURE [place], [place] [address] [place], [place] [phone] [address] Social History Tobacco Use Types Packs/Day Years Used Date Smoking Tobacco: Never Assessed Sex Assigned at Date Recorded Not on file documented as of this encounter Progress Notes Hebert Joiner - 12/08/2003 12:00 AM CDT documented in this encounter Plan of Treatment Not on filedocumented as of this encounter Visit Diagnoses Not on filedocumented in this encounter Care Teams Solar Sales Representative And Assessor Relationship Specialty Start Date End Date Madisyn Smalls APRN, CNP PCP - General 03/03/02 11/04/10 [address] [place] [address] documented as of this encounter
--- OUTSIDE RECORDS SUMMARY | 2022-05-04 05:34 | XMS_ITS | Encounter Summary ---
:[address] [facility] Address [address] [address] Care Team Providers Name Role Phone Madisyn Smalls APRN, CNP Primary Care Provider [phone] Encounter Details Date Type Department Care Team Description 04/06/2004 Correspondence [facility] Madisyn Smalls, LAB TEST F/U Practice AGUSTIN FIELDS [address] [facility] [address] [place] [address] [place] [address] [phone] (Wo rk) Social History Tobacco Use Types [...] on filedocumented in this encounter Care Teams Sensor Specialist Relationship Specialty Start Date End Date Madisyn Smalls APRN, CNP PCP - General 03/03/02 11/04/10 [address] [place] [address] documented as of this encounter
--- OUTSIDE RECORDS SUMMARY | 2022-05-04 05:34 | XMS_ITS | Encounter Summary ---
:1970 Author Organization [employer] Address [address] [place] [address] Care Team Providers Name Role Phone Madisyn Smalls APRN, CNP Primary Care Provider [phone] Encounter Details Date Type Department Care Team Description 04/02/2004 Orders Only [place] [facility] Madisyn Smalls, [address] [facility] [place] AGUSTIN FIELDS [place], [place] [address] [facility] [phone] [place] [address] (Wo rk) Social History Tobacco [...] athologist Signature TSH 1.52 0.30 - 5.00 [facility] uIU/ml Thyroid Meds No [facility] Specimen Anatomical Collection Method Collection Time Receive d Time (Source) Location / / Volume Laterality 04/02/2004 1:45 PM 4 1:46 CDT PM CDT Madisyn Smalls APRN, CNP LAB_1 Performing Organization Address City/[facility] Code Phon e Number [facility] [phone] [facility] [address] [address] HEMOGRAM/PLTS/DIFF (04/02/2004 1:45 PM CDT) athologist Signature WBC 5.8 3.6 - 11.0 [facility] k/ul RBC 5.06 4.0 - 5.2 [facility] M/ul Hemoglobin 15.0 12.0 - [facility] 16.0 g/dl HCT 43.5 36.0 - [facility] 46.0 % MCV 86.0 80 - 100 [facility] fl MCH 29.6 26 - 34 pg [facility] MCHC 34.4 32 - 36 % [facility] RDW 12.6 11.5 - [facility] 14.5 % Platelets 256 150 - 450 [facility] k/ul PMN/Band 62 43 - 72 % [facility] Lymph 26 17 - 43 % [facility] Bledsoe 10 4 - 12 % [facility] Eos 1 0 - 8 % [facility] Baso 1 0 - 1 % [facility] Neutrophil 3.6 1.8 - 7.7 [facility] Absolute k/ul Lymph Absolute 1.5 1.0 - 4.8 [facility] k/ul Bledsoe Absolute 0.6 0.1 - 0.7 [facility] k/ul Eos Absolute 0.1 0.0 - 0.5 [facility] k/ul Baso Absolute 0.0 0.0 - 0.2 [facility] k/ul Specimen Anatomical Collection Method Collection Time Receive d Time (Source) Location / / Volume Laterality 04/02/2004 1:45 PM 4 1:46 CDT PM CDT Madisyn Smalls APRN, CNP LAB_1 Performing Organization Address City/State/ZIP Code Phon e Number [facility] [phone] [facility] [address] [address] GLUCOSE - RANDOM < 8HR FASTING (V77.1) (04/02/2004 1:45 PM CDT) P athologist Signature Glucose 73 65 - 115 [facility] mg/dl Hours Fasting 0 hours [facility] Specimen Anatomical Collection Method Collection Time Receive d Time (Source) Location / / Volume Laterality 04/02/2004 1:45 PM 4 1:46 CDT PM CDT Madisyn Smalls APRN, CNP LAB_1 Performing Organization Address [facility]/ZIP Code Phon e Number [facility] [phone] [facility] [address] [place] [phone] (ABNORMAL) CHOLESTEROL, TOTAL AND HDL (04/02/2004 1:45 PM CDT) Component Value Ref Test Analysis Performed At [facility] gist Range Method Time Signature Cholesterol 208 [...] Smalls APRN, CNP LAB_1 Performing Organization Address City/[facility]/ZIP [facility] Phon e Number [facility] [phone] [facility] [address] [place] [phone] documented in this encounter Visit Diagnoses Not on filedocumented in this encounter Care Teams Fractionation Plant Supervisor Relationship Specialty Start Date End Date Madisyn Smalls APRN, AGUSTIN PCP - General 03/03/02 11/04/10 [address] [place] [address] documented as of this encounter
--- OUTSIDE RECORDS SUMMARY | 2022-05-04 05:34 | XMS_ITS | Encounter Summary ---
:1970 Author Organization [facility] Address [address], [place] [address] Care Team Providers Name Role Phone Madisyn Smalls APRN, CNP Primary Care Provider [phone] Encounter Details Date Type Department Care Team Description 09/11/2002 [facility] Visit [facility] S INUSITIS NOS; [place] DYSFUNCT EUSTACHIAN TUBE [address] [place], [place] [address] Social History Tobacco Use Types Packs/Day Years Used Date Smoking Tobacco: Never Assessed Sex Assigned at Date Recorded Not on file documented as of this encounter Last Filed Vital Signs Vital Sign Reading Time Taken Comments Blood Pressure 98/66 09/11/2002 10:00 AM CARTRIDGE MAKER Pulse 76 09/11/2002 10:00 AM CARTRIDGE MAKER Temperature 37.6 ??C (99.6 ??F) 09/11/2002 10:00 AM CARTRIDGE MAKER Respiratory Rate 12 09/11/2002 10:00 AM CARTRIDGE MAKER Oxygen Saturation - - Inhaled Oxygen Concentration - - Weight - - Height - - Body Mass Index - - documented in this encounter Progress Notes 09/11/2002 10:00 AM CARTRIDGE MAKER Room # n/a Rooming time: 10:08 AM [...] mistreated by someone important to you? -NO reformatory attendant offered -NOT APPLICABLE. Health Education given -NO. Primary provider: Madisyn Smalls NP Contact phone number [phone] (home) [phone] (work) Alternate phone number . Ciera Meza [...] ACUTE SINUSITIS AND EUSTACHIAN TUBE DYSFUNCTION cc: RIDGE MAKER documented in this encounter Plan of Treatment Not on filedocumented as of this encounter Visit Diagnoses Diagnosis Acute sinusitis, unspecified Dysfunction of eustachian tube Dysfunction of Eustachian tube documented in this encounter Care Teams Matcher Relationship Specialty Start Date End Date Madisyn Smalls APRN, COOK NIGHT PCP - General 03/03/02 11/04/10 [address] [place] [address] documented as of this encounter
--- OUTSIDE RECORDS SUMMARY | 2022-05-04 05:34 | XMS_ITS | Encounter Summary ---
:1970 Author Organization [facility] Address [address] [place] [address] Care Team Providers Name Role Phone Madisyn Smalls APRN, AGUSTIN Primary Care Provider Encounter Details Date Type Department Care Team Description 12/05/2003 Office Visit [facility], DYSCHROMIA OTHER; [address] [place] [address] Lisa Ambrosio MD BENIGN SARAH SKIN LEG [place], [place] [address] [facility] [phone] [place] [address] Social History Tobacco Use Types Packs/Day Years [...] will be a charge of $191 for [employer] for 10 minutes, and $5 a minute thereafter, along with the [employer] destructive fee of approximately $100 to $150. [...] hip documented in this encounter Care Teams Court Attendant Relationship Specialty Start Date End Date Madisyn Smalls, DONNIE, BACKEND TESTER PCP - General 03/03/02 11/04/10 [address] [place] [address] documented as of this encounter
--- OUTSIDE RECORDS SUMMARY | 2022-05-04 05:34 | XMS_ITS | Encounter Summary ---
:1970 Author Organization [employer] Address [address] [place] [address] Care Team Providers Name Role Phone Madisyn Smalls APRN, AGUSTIN Primary Care Provider [phone] Encounter Details Date Type Department Care Team Description 12/08/2003 Office Visit [place] [facility] Rhys, PLASTIC SURGERY NEC; [address] [place] [address] Lisa Ambrosio MD DYSCHROMIA OTHER [place], [place] [address] 401 [facility] [phone] [place] [address] Social History Tobacco Use Types Packs/Day Years [...] cost, which would be $191 for the [employer] and $99 for [employer]. Note that these charges would be at [...] dyschromia documented in this encounter Care Teams Railroad Track Inspector Relationship Specialty Start Date End Date Madisyn Smalls APRN, SUBSTATION OPERATOR AUTOMATIC PCP - General 03/03/02 11/04/10 [address] [place] [address] documented as of this encounter
--- OUTSIDE RECORDS SUMMARY | 2022-05-04 05:34 | XMS_ITS | Encounter Summary ---
:1970 Author Organization [facility] Address [address] [place] [address] Care Team Providers Name Role Phone Luis Smalls APRN, CNP Primary Care Provider [phone] Encounter Details Date Type Department Care Team Description 04/02/2004 Orders Only [place] [facility] Luis Smalls, [address] [facility] AGUSTIN FIELDS [place], [place] [address] [facility] [phone] [place] [address] (Wo rk) Social History Tobacco [...] Component Value Ref Test Analysis Performed At [facility] Range Method Time Signature Cytology, Pap (NOTE) REGIONS Laundry Routeman Cytology Report Patient Name: RAHAT THOMASON Taken: 04/02/04 Received: 04/04/04 Reported: 04/12/04 Physician(s): LUIS SMALLS ([id number]) ?Source of Specimen Liquid routine Pap, cervical/endocervical: [...] 11:3 5 AM CDT Luis Smalls APRN BUNDLES HANGER LAB_1 Performing Organization Address City/State/ZIP Code Phon e Number [address] [id number] [place], [place] [phone] documented in this encounter Visit Diagnoses Not on filedocumented in this encounter Care Teams Mule Developer Relationship Specialty Start Date End Date Luis Smalls APRN, BUNDLES HANGER PCP - General 03/03/02 11/04/10 [address] [place] [address] documented as of this encounter
--- OUTSIDE RECORDS SUMMARY | 2022-05-04 05:34 | XMS_ITS | Encounter Summary ---
:1970 Author Organization [facility] Address [address] [place] [address] Care Team Providers Name Role Phone Madisyn Smalls APRN, CNP Primary Care Provider [phone] Encounter Details Date Type Department Care Team Description 12/08/2003 Correspondence [facility] MAHESH Joiner STATEMENT OF [address] [facility] MD Hebert NON-COVERAGE/BENEFICI S. [address] AMELIE AGREEMENT [place], [place] [address] [place], [place] [phone] [address] Social History Tobacco Use Types Packs/Day Years Used Date Smoking Tobacco: Never Assessed Sex Assigned at Date Recorded Not on file documented as of this encounter Progress Notes Hebert Joiner - 12/08/2003 12:00 AM CDT documented in this encounter Plan of Treatment Not on filedocumented as of this encounter Visit Diagnoses Not on filedocumented in this encounter Care Teams Woodenware Assembler Relationship Specialty Start Date End Date Madisyn Smalls APRN, CNP PCP - General 03/03/02 11/04/10 [address] [place] [address] documented as of this encounter
--- OUTSIDE RECORDS SUMMARY | 2022-05-04 05:35 | XMS_ITS | Encounter Summary ---
:1970 Author Organization [facility] Address [address] [place] [address] Care Team Providers Name Role Phone Unassigned, Provider Primary Care Provider Unavailable Encounter Details Date Type Department Care Team Description 12/11/2000 Orders Only [facility], [place] [address] Social History Tobacco Use Types Packs/Day Years Used Date Smoking Tobacco: Never Assessed Sex Assigned at Date Recorded Not on file documented as of this encounter Plan of Treatment Not on filedocumented as of this encounter Visit Diagnoses Not on filedocumented in this encounter Care Teams Stitch Bonding Machine Operator Relationship Specialty Start Date End Date Unassigned, Provider PCP - General 07/21/00 03/02/[address] [place] [address] documented as of this encounter
--- OUTSIDE RECORDS SUMMARY | 2022-05-04 05:35 | XMS_ITS | Encounter Summary ---
:1970 Author Organization [facility] Address [address] [place] [address] Care Team Providers Name Role Phone Britney Jarrett MD Primary Care Provider Encounter Details Date Type Department Care Team Description 08/12/2000 Orders Only Madisyn Villanueva, [address] [place]USTIN [place]DS [place], [place] [address] [facility] [phone] [place] [address] (Wo rk) Social History Tobacco Use Types Packs/Day Years Used Date Smoking Tobacco: Never Assessed Sex Assigned at Date Recorded Not on file documented as of this encounter Plan of Treatment Not on filedocumented as of this encounter Procedures Procedure Name Priority Date/Time Associated Diagnosis Comme nts STREP GRP A, RAPID Waiting 08/12/2000 1:12 PM Res ults for this SCREEN SCOOPER procedure are i n the results section. documented in this encounter Results RAPID, GPA STREP SCREEN (WAITI (08/12/2000 1:12 PM SCOOPER) [facility] Method Time Signature Patient Home [id number] [facility] Phone # Patient Work None [facility] Phone # Grp A Rapid Negative [facility] Screen Grp A Culture Negative [facility] Final Specimen Anatomical Collection Method Collection Time Receive d Time (Source) Location / / Volume Laterality 08/12/2000 1:12 PM 1 1:13 SCOOPER PM SCOOPER Madisyn Smalls APRN, CNP LAB_1 Performing Organization Address City/State/ZIP Code Phon e Number [facility] [phone] [facility] [address] [address] documented in this encounter Visit Diagnoses Not on filedocumented in this encounter Care Teams Assistant Property Manager Relationship Specialty Start Date End Date Britney Jarrett MD PCP - General 04/15/13 04/03/161999 [place] [address] documented as of this encounter
--- OUTSIDE RECORDS SUMMARY | 2022-05-04 05:35 | XMS_ITS | Encounter Summary ---
:1970 Author Organization [facility] Address [address] [place] [address] Care Team Providers Name Role Phone Unassigned, Provider Primary Care Provider Unavailable Encounter Details Date Type Department Care Team Description 12/27/2000 Office Visit [facility] ACUTE SINUSITIS NOS [address] [place], [place] [address] Social History Tobacco Use [...] unspecified documented in this encounter Care Teams Oceanographic Meteorologist Relationship Specialty Start Date End Date Unassigned, Provider PCP - General 07/21/00 03/02/[address] [place] [address] documented as of this encounter
--- OUTSIDE RECORDS SUMMARY | 2022-05-04 05:35 | XMS_ITS | Encounter Summary ---
:1970 Author Organization [facility] Address [address], [place] [address] Care Team Providers Name Role Phone Madisyn Smalls APRN, CNP Primary Care Provider [phone] Encounter Details Date Type Department Care Team Description 04/24/2002 [facility] U RI NOS; [place] ACUTE PHARYNGITIS(SORE THROA T) [address] [place], [place] [address] Social History Tobacco Use [...] important to you? no. Resources given? no. tanning salon attendant offered -not applicable. Health Education given -no. Primary provider: Madisyn Smalls NP Contact phone number [phone] (home) [phone] (work) Alternate phone number . Joann Tran [...] pharyngitis documented in this encounter Care Teams Cellophane Bath Mixer Relationship Specialty Start Date End Date Madisyn Smalls, DIRECTOR OF DIETARY, DUMP OPERATOR PCP - General 03/03/02 11/04/10 [address] [place] [address] documented as of this encounter
--- OUTSIDE RECORDS SUMMARY | 2022-05-04 05:35 | XMS_ITS | Encounter Summary ---
:1970 Author Organization [facility] Address [address], [place] [address] Care Team Providers Name Role Phone Unassigned, Provider Primary Care Provider Unavailable Encounter Details Date Type Department Care Team Description 12/08/2000 Office Visit [facility] Madisyn Smalls M ALAISE AND FATIGUE (OTHER); Practice BONDERIZER, INSTRUCTOR APPAREL MANUFACTURE MENSTRUAL DISORDER NOS [address] [facility] [address] [place] [address] [phone] (Wo rk) Social History Tobacco Use Types [...] tract documented in this encounter Care Teams Mercury Cell Cleaner Relationship Specialty Start Date End Date Unassigned, Provider PCP - General 07/21/00 03/02/02 [address] [place] [address] documented as of this encounter
--- OUTSIDE RECORDS SUMMARY | 2022-05-04 05:35 | XMS_ITS | Encounter Summary ---
:1970 Author Organization [facility] Address [address] [address] Care Team Providers Name Role Phone Unassigned, Provider Primary Care Provider Unavailable Encounter Details Date Type Department Care Team Description 12/22/2000 Office Visit [facility], Adult Av ACUTE PHARYNGITIS(SORE Practice THROAT) [address] [place], [place] [address] Social History Tobacco Use Types Packs/Day Years Used Date Smoking Tobacco: Never Assessed Sex Assigned at Date Recorded Not on file documented as of this encounter Plan of Treatment Not on filedocumented as of this encounter Visit Diagnoses Diagnosis Acute pharyngitis documented in this encounter Care Teams Row Boss Relationship Specialty Start Date End Date Unassigned, Provider PCP - General 07/21/00 03/02/[address] [place] [address] documented as of this encounter
--- OUTSIDE RECORDS SUMMARY | 2022-05-04 05:35 | XMS_ITS | Encounter Summary ---
:1970 Author Organization [facility] Address [address] [place] [address] Care Team Providers Name Role Phone Britney Jarrett MD Primary Care Provider Encounter Details Date Type Department Care Team Description 12/12/2000 Orders Only Madisyn Villanueva, [address] DONNIE, AGUSTIN [place], [place] [phone] [facility] [phone] [place] [address] (Wo rk) Social History Tobacco [...] PAP SMEAR, ROUTINE (12/12/2000 2:02 PM CDT) [facility] Method Time Signature Pap Smear, See Separate Report [facility] Routine Performed at [facility] Specimen Anatomical Collection Method Collection Time Receive d Time (Source) Location / / Volume Laterality 12/12/2000 2:02 PM 1 2:03 CDT PM CDT Madisyn Smalls APRN, CNP LAB_1 Performing Organization Address City/State/ZIP Code Phon e Number [facility] [phone] [facility] [address] [place] [address] documented in this encounter Visit Diagnoses Not on filedocumented in this encounter Care Teams Digital Retoucher Relationship Specialty Start Date End Date Britney Jarrett MD PCP - General 04/15/13 04/03/161999 [place] [address] documented as of this encounter
--- OUTSIDE RECORDS SUMMARY | 2022-05-04 05:35 | XMS_ITS | Encounter Summary ---
:1970 Author Organization [facility] Address [address] [place] [address] Care Team Providers Name Role Phone Madisyn Smalls APRN, CNP Primary Care Provider [phone] Reason for Visit Reason Comments HEARING LOSS OTITIS SINUSITIS Encounter Details Date Type Department Care Team Description 05/04/2002 Telephone Careline Christa Ibanez, HEARING LOSS; OTITIS; [address] RN SINUSITIS [place], [place] [address] AFTER HOURS CARE [phone] 2828 [facility], [address] Social History Tobacco Use Types [...] Sinusitis Dx, per Sinusitis Guidelines, Copyright(c) 2001 [employer] [facility] Center[facility] [employer] [facility]. [place], [place] ). Pt will await CB from clinic today. documented in this encounter Plan of Treatment Not on filedocumented as of this encounter Visit Diagnoses Not on filedocumented in this encounter Care Teams In Service Education Teacher Relationship Specialty Start Date End Date Madisyn Smalls APRN, BARREL LEVELER PCP - General 03/03/02 11/04/10 [address] [place] [address] documented as of this encounter
--- OUTSIDE RECORDS SUMMARY | 2022-05-04 05:35 | XMS_ITS | Encounter Summary ---
:1970 Author Organization [facility] Address [address] [place] [address] Care Team Providers Name Role Phone Madelin Becerril MD Primary Care Provider Reason for Visit Reason Comments PAIN, NOS VIA INTERFACE Encounter Details Date Type Department Care Team Description 03/26/2000 Office Visit [facility] TMD Estevan, Alesia [facility] [address] [place] [address] CONDITION [phone] Social History Tobacco Use Types Packs/Day Years Used Date Smoking Tobacco: Never Assessed Sex Assigned at Date Recorded Not on file documented as of this encounter Plan of Treatment Not on filedocumented as of this encounter Visit Diagnoses Diagnosis Psychic factors associated with diseases classified elsewhere (HRC) Psychic factors associated with diseases classified elsewhere documented in this encounter Care Teams Education Program Manager Relationship Specialty Start Date End Date Madelin Becerril MD PCP - General 07/17/1996 07/20/00 [address] [place] [address] documented as of this encounter
--- OUTSIDE RECORDS SUMMARY | 2022-05-04 05:35 | XMS_ITS | Encounter Summary ---
:1970 Author Organization [facility] Address [address] [place] [address] Care Team Providers Name Role Phone Madelin Becerril MD Primary Care Provider Reason for Visit Reason Comments PAIN, NOS VIA INTERFACE Encounter Details Date Type Department Care Team Description 02/27/2000 Office Visit [facility] [place] TMD Saravanan, Andrade MYALGIA AND MYOSITIS NOS; [address] C, DDS, MS ENTHESOPATHY, [place] [address] Social History Tobacco Use Types Packs/Day Years Used Date Smoking Tobacco: Never Assessed Sex Assigned at Date Recorded Not on file documented as of this encounter Plan of Treatment Not on filedocumented as of this encounter Visit Diagnoses Diagnosis Myalgia and myositis, unspecified Mylagia and myositis, unspecified Enthesopathy of unspecified site documented in this encounter Care Teams Thread Machine Operator Relationship Specialty Start Date End Date Madelin Becerril MD PCP - General 07/17/1996 07/20/[address] [place] [address] documented as of this encounter
--- OUTSIDE RECORDS SUMMARY | 2022-05-04 05:35 | XMS_ITS | Encounter Summary ---
:1970 Author Organization [facility] Address [address] [place] [address] Care Team Providers Name Role Phone Madisyn [...] STREP SCREEN (WAITI (04/24/2002 1:23 PM CDT) [facility] Method Time Signature Patient Home None [facility] Phone # Patient Work None [facility] Phone # Grp A Rapid Negative [facility] Screen Grp A Culture Negative [facility] Final Specimen Anatomical Collection Method Collection Time Receive d Time (Source) Location / / Volume Laterality 04/24/2002 1:23 PM 2 1:24 CDT PM CDT Full Range Avucc LAB_1 Performing Organization Address City/State/ZIP Code Phon e Number [facility] [phone] [facility] [address] [phone] documented in this encounter Visit Diagnoses Not on filedocumented in this encounter Care Teams Fruit Cutter Relationship Specialty Start Date End Date Madisyn Smlals APRN, CNP PCP - General 7/31/02 4/3/11 [address] [place] [address] documented as of this encounter
--- OUTSIDE RECORDS SUMMARY | 2022-05-04 05:35 | XMS_ITS | Encounter Summary ---
:[address] [facility] Address [address] [address] Care Team Providers Name Role Phone Unassigned, Provider Primary Care Provider Unavailable Encounter Details Date Type Department Care Team Description 12/27/2000 Orders Only [place] Robin Bradley MD Practice [facility] [address] [place] [address]. [address] [place] [address] [place] [address] [phone] (Wo rk) Social History Tobacco Use Types Packs/Day Years Used Date Smoking Tobacco: Never Assessed Sex Assigned at Date Recorded Not on file documented as of this encounter Plan of Treatment Not on filedocumented as of this encounter Visit Diagnoses Not on filedocumented in this encounter Care Teams Automatic Blocker Relationship Specialty Start Date End Date Unassigned, Provider PCP - General 07/21/00 03/02/02 [address] [place] [address] documented as of this encounter
--- OUTSIDE RECORDS SUMMARY | 2022-05-04 05:35 | XMS_ITS | Encounter Summary ---
:1970 Author Organization [facility] Address [address] [place] [address] Care Team Providers Name Role Phone Britney Jarrett MD Primary Care Provider Encounter Details Date Type Department Care Team Description 12/22/2000 Orders Only Madisyn Villanueva, [address] [place] [address], [place] [phone] [facility] [phone] [place] [address] (Wo rk) Social History Tobacco [...] STREP SCREEN (WAITI (12/22/2000 2:23 PM CDT) [facility] gist Method Time Signature Patient Home None [facility] Phone # Patient Work None [facility] Phone # Grp A Rapid Negative [facility] Screen Grp A Culture Negative [facility] Final Specimen Anatomical Collection Method Collection Time Receive d Time (Source) Location / / Volume Laterality 12/22/2000 2:23 PM 1 2:24 CDT PM CDT Madisyn Smalls APRN, CNP LAB_1 Performing Organization Address City/State/ZIP Code Phon e Number [facility] [phone] [facility] [address] [address] documented in this encounter Visit Diagnoses Not on filedocumented in this encounter Care Teams Reporting Manager Relationship Specialty Start Date End Date Britney Jarrett MD PCP - General 04/15/13 04/03/161999 [place] [address] documented as of this encounter
--- OUTSIDE RECORDS SUMMARY | 2022-05-04 05:35 | XMS_ITS | Encounter Summary ---
:1970 Author Organization [facility] Address [address] [address] Care Team Providers Name Role Phone Unassigned, Provider Primary Care Provider Unavailable Reason for Visit Reason Comments SORE THROAT, VIA INTERFACE Encounter Details Date Type Department Care Team Description 08/12/2000 Office Visit [facility] Madisyn Smalls A CUTE URI NOS; Practice RESOLUTE PROFESSIONAL, PHARMACEUTICAL PROCESS ENGINEER ACUTE PHARYNGITIS(SORE THROAT) [address] [facility] [address] [place] [address] [phone] (Wo rk) Social History Tobacco Use Types [...] week. IN SUMMARY :URI WITH PHARYNGITIS. cc: DISPENSER documented in this encounter Plan of Treatment Not on filedocumented as of this encounter Visit Diagnoses Diagnosis Acute upper respiratory infections of un specified site Acute pharyngitis documented in this encounter Care Teams Sewing Machines Salesperson Relationship Specialty Start Date End Date Unassigned, Provider PCP - General 07/21/00 03/02/[address] [place] [address] documented as of this encounter
--- OUTSIDE RECORDS SUMMARY | 2022-05-04 05:35 | XMS_ITS | Encounter Summary ---
:1970 Author Organization [facility] Address [address] [place] [address] Care Team Providers Name Role Phone Britney Jarrett MD Primary Care Provider Encounter Details Date Type Department Care Team Description 12/08/2000 Orders Only [facility] Madisyn Smalls H, [address] PACKAGE DESIGNER, TAX SPECIALIST [place], [place] [phone] [facility] [phone] [place] [address] (Wo rk) Social History Tobacco [...] - 5.00 [facility] uIU/ml Thyroid Meds No [facility] Specimen Anatomical Collection Method Collection Time Receive d Time (Source) Location / / Volume Laterality 12/08/2000 1:57 PM 1 1:58 CDT PM CDT Madisyn Smalls APRN, CNP LAB_1 Performing Organization Address [facility] Phon e Number [facility] [phone] [facility] [address] [place] [phone] F[facility] (12/08/2000 1:57 PM CDT) [facility] Method Time Signature FSH 6.0 mIU/ml [facility] FSH Expected Values- [facility] Prepubertal: ??<5.0 Follicular: ??2.5-10.2 Midcycle: ??3.4-33.4 Luteal: ??1.5-9.1 Postmenopausal: ??23.0-116.3 Specimen Anatomical Collection Method Collection Time Receive d Time (Source) Location / / Volume Laterality 12/08/2000 1:57 PM 1 1:58 CDT PM CDT Madisyn Smalls APRN, CNP LAB_1 Performing Organization Address [facility] Phon e Number [facility] [phone] [phone] GLUCOSE - RANDOM < 8HR FASTING) (12/08/2000 1:57 PM CDT) athologist Signature Glucose 105 65 - 115 [facility] mg/dl Hours Fasting 2.25 hours [facility] Specimen Anatomical Collection Method Collection Time Receive d Time (Source) Location / / Volume Laterality 12/08/2000 1:57 PM 1 1:58 CDT PM CDT Madisyn Smalls APRN, CNP LAB_1 Performing Organization Address [facility] Phon e Number [facility] [phone] [phone] HEMOGLOBIN, BLOOD (12/08/2000 1:57 PM CDT) P athologist Signature Hemoglobin 14.6 12.0 - 16.0 [facility] g/dl Specimen Anatomical Collection Method Collection Time Receive d Time (Source) Location / / Volume Laterality 12/08/2000 1:57 PM 1 1:58 CDT PM CDT Madisyn Smalls APRN, TAX SPECIALIST LAB_1 Performing Organization Address City/State/ZIP Code Phon e Number [facility] [phone] [facility] [address] [address] documented in this encounter Visit Diagnoses Not on filedocumented in this encounter Care Teams Patient Accounts Specialist Relationship Specialty Start Date End Date Britney Jarrett MD PCP - General 04/15/13 04/03/161999 [place] [address] documented as of this encounter
--- OUTSIDE RECORDS SUMMARY | 2022-05-04 05:35 | XMS_ITS | Encounter Summary ---
:1970 Author Organization [facility] Address [address] [place] [address] Care Team Providers Name Role Phone Madisyn Smalls APRN, AGUSTIN Primary Care Provider Reason for Visit Reason Comments Medication Request Encounter Details Date Type Department Care Team Description 05/02/2002 Telephone Careline Jorge Alberto Murray, Medication Request [address] [place], [place] [address] CARELINE [phone] [place], [place] [address] Social History Tobacco Use Types Packs/Day Years Used Date Smoking Tobacco: Never Assessed Sex Assigned at Date Recorded Not on file documented as of this encounter Nursing Notes 05/02/2002 11:59 PM CDT >> JORGE ALBERTO MURRAY [place] May 02, 2002 9:03 AM >> COMPLETED ON FriMay 02, 2002 9:40 AM >> CALL RECEIVED. Contact: [phone] [facility] [phone] Josie Booker calling with request for new medication: she is currently taking Amox. for an ear in fection and sinusitis. She states that she is not having any improvement in her sx, and she has hadZithromax in the past. Patient reports problems with no improvement.. Allergies reviewed and verified; NKDA. will route Rx request to quality improvement consultant provider, Dr.Thomas Kelly, and he ordered Zithromax 500 mg stat, and 250mg per day x 4 days. Rx called to [facility]. Call back plan: if no improvement or worsening of sx. documented in this encounter Plan of Treatment Not on filedocumented as of this encounter Visit Diagnoses Not on filedocumented in this encounter Care Teams Member Service Representative Relationship Specialty Start Date End Date Madisyn Smalls, DONNIE, DESIGN AND SALES CONSULTANT PCP - General 03/03/02 11/04/10 [address] [place] [address] documented as of this encounter
--- OUTSIDE RECORDS SUMMARY | 2022-05-04 05:35 | XMS_ITS | Encounter Summary ---
:1970 Author Organization [facility] Address [address] [place] [address] Care Team Providers Name Role Phone Unassigned, Provider Primary Care Provider Unavailable Encounter Details Date Type Department Care Team Description 09/29/2001 Office Visit Bandar Mitchell, ACUTE URI NOS Practice [address] [place] [address] [place] [address] [place], [place] [address] (Wo rk) Social History [...] Follow up prn. IN SUMMARY: URI. cc: OW FABRIC LOOM FIXER Bandar Haider - 09/29/2001 12:00 AM CSTS: [...] Follow up prn. IN SUMMARY: URI. cc: OW FABRIC LOOM FIXER documented in this encounter Plan of Treatment Not on filedocumented as of this encounter Visit Diagnoses Diagnosis Acute upper respiratory infections of un specified site documented in this encounter Care Teams Hot Top Liner Relationship Specialty Start Date End Date Unassigned, Provider PCP - General 07/21/00 03/02/[address] [place] [address] documented as of this encounter
--- OUTSIDE RECORDS SUMMARY | 2022-05-04 05:35 | XMS_ITS | Encounter Summary ---
:1970 Author Organization [facility] Address [address] [place] [address] Care Team Providers Name Role Phone Madelin Becerril MD Primary Care Provider Reason for Visit Reason Comments PAIN, NOS VIA INTERFACE Encounter Details Date Type Department Care Team Description 03/26/2000 Office Visit [facility] [place] TMD Rilesterr, Vanessa MYALGIA AND MYOSITIS [address] [place] [place], [place] [address] Social History Tobacco Use Types Packs/Day Years Used Date Smoking Tobacco: Never Assessed Sex Assigned at Date Recorded Not on file documented as of this encounter Plan of Treatment Not on filedocumented as of this encounter Visit Diagnoses Diagnosis Myalgia and myositis, unspecified Mylagia and myositis, unspecified documented in this encounter Care Teams Agricultural Engineer Relationship Specialty Start Date End Date Madelin Becerril MD PCP - General 07/17/1996 07/20/[address] [place] [address] documented as of this encounter
--- OUTSIDE RECORDS SUMMARY | 2022-05-04 05:35 | XMS_ITS | Encounter Summary ---
:1970 Author Organization [facility] Address [address] [place] [address] Care Team Providers Name Role Phone Madisyn Smalls APRN, CNP Primary Care Provider [phone] Encounter Details Date Type Department Care Team Description 12/11/2000 Orders Only Madisny Smalls APRN, CNP [address] [place] [address] (Wo rk) Social History Tobacco Use Types Packs/Day Years Used Date Smoking Tobacco: Never Assessed Sex Assigned at Date Recorded Not on file documented as of this encounter Plan of Treatment Not on filedocumented as of this encounter Procedures Procedure Name Priority Date/Time Associated Diagnosis Comme nts CABIN SERVICE AGENT CYTOLOGY Routine 12/11/2000 10:40 AM Results for this CDT procedure are i n the results section . documented in this encounter Results CABIN SERVICE AGENT CYTOLOGY (12/11/2000 10:40 AM CDT) [facility] Method Time Signature Bilingual Loan Processor Cytology Bilingual Loan Processor Cytology Report [facility] Patient Name: RAHAT THOMASON Taken: 12/11/00 Received: 12/15/00 Reported: 12/20/00 Physician(s): MADISYN SMALLS ([id number]) ? [id number] Final Cytologic Diagnosis Cervical Endocervical,routine: ? Satisfactory [...] Organization Address City/State/ZIP Code Phon e Number [address] [address] [place], [place] [phone] documented in this encounter Visit Diagnoses Not on filedocumented in this encounter Care Teams Bottom Turning Lathe Tender Relationship Specialty Start Date End Date Madisyn Smalls APRN, NAIL MACHINE OPERATOR PCP - General 03/03/02 11/04/10 [address] [place] [address] documented as of this encounter
--- OUTSIDE RECORDS SUMMARY | 2022-05-04 05:35 | XMS_ITS | Encounter Summary ---
:1970 Author Organization [facility] Address [address] [place] [address] Care Team Providers Name Role Phone Madisyn Smalls APRN, CNP Primary Care Provider [phone] Encounter Details Date Type Department Care Team Description 04/29/2002 Office Visit [facility] Bianca Esqueda, ACUTE URI NOS; Medicine MD OTITIS MEDIA NOS [address] [facility] [address] [place], [place] [address] [facility] [phone] [address] [place], [place] [address] (Wo rk) Social History [...] is a non-smoker. She has been using szyv-tsh-chdgdfa Sudafed on a regular basis which has [...] media documented in this encounter Care Teams Security Management Specialist Relationship Specialty Start Date End Date Madisyn Smalls APRN, PASTING MACHINE OPERATOR PCP - General 03/03/02 11/04/10 [address] [place] [address] documented as of this encounter
--- OUTSIDE RECORDS SUMMARY | 2022-05-04 05:35 | XMS_ITS | Encounter Summary ---
:1970 Author Organization [facility] Address [address] [place] [address] Care Team Providers Name Role Phone Madelin Becerril MD Primary Care Provider Reason for Visit Reason Comments PAIN, NOS VIA INTERFACE Encounter Details Date Type Department Care Team Description 03/26/2000 Office Visit [facility] [place] TMD Saravanan, Andrade MYALGIA AND MYOSITIS NOS; [address] C, DDS, MS ENTHESOPATHY, [place] [address] Social History Tobacco Use Types Packs/Day Years Used Date Smoking Tobacco: Never Assessed Sex Assigned at Date Recorded Not on file documented as of this encounter Plan of Treatment Not on filedocumented as of this encounter Visit Diagnoses Diagnosis Myalgia and myositis, unspecified Mylagia and myositis, unspecified Enthesopathy of unspecified site documented in this encounter Care Teams Radiographer Angiogram Relationship Specialty Start Date End Date Madelin Becerril MD PCP - General 07/17/1996 07/20/00 [address] [place] [address] documented as of this encounter
--- OUTSIDE RECORDS SUMMARY | 2022-05-04 05:35 | XMS_ITS | Encounter Summary ---
:1970 Author Organization [facility] Address [address], [place] [address] Care Team Providers Name Role Phone Unassigned, Provider Primary Care Provider Unavailable Encounter Details Date Type Department Care Team Description 07/24/2000 Office Visit [facility] Abby Quan VACC INE FOR INFLUENZA Practice MD [place] [address] [place] [address] [phone] Social History Tobacco Use Types Packs/Day Years Used Date Smoking Tobacco: Never Assessed Sex Assigned at Date Recorded Not on file documented as of this encounter Plan of Treatment Not on filedocumented as of this encounter Visit Diagnoses Diagnosis VACCINE FOR INFLUENZA documented in this encounter Care Teams Marketing Production Specialist Relationship Specialty Start Date End Date Unassigned, Provider PCP - General 07/21/00 03/02/[address] [place] [address] documented as of this encounter
--- OUTSIDE RECORDS SUMMARY | 2022-05-04 05:35 | XMS_ITS | Encounter Summary ---
:1970 Author Organization [facility] Address [address] [place] [address] Care Team Providers Name Role Phone Unassigned, Provider Primary Care Provider Unavailable Encounter Details Date Type Department Care Team Description 06/23/2001 Office Visit [facility], Dorothy Mccarthy FOR INFLUENZA Practice [address] [facility] [address] [facility] [address] [address] [place] [address] (Wo rk) Social History Tobacco Use Types Packs/Day Years Used Date Smoking Tobacco: Never Assessed Sex Assigned at Date Recorded Not on file documented as of this encounter Plan of Treatment Not on filedocumented as of this encounter Visit Diagnoses Diagnosis VACCINE FOR INFLUENZA documented in this encounter Care Teams Lye Peel Operator Relationship Specialty Start Date End Date Unassigned, Provider PCP - General 07/21/00 03/02/02 [address] [place] [address] documented as of this encounter
--- OUTSIDE RECORDS SUMMARY | 2022-05-04 05:35 | XMS_ITS | Encounter Summary ---
:1970 Author Organization [facility] Address [address] [place] [address] Care Team Providers Name Role Phone Madelin [...] her. 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 In terms of exercise, she exercises 30-40 minutes every other day (doing Nahid Armando, roller blading, riding the bicycle, or using her [place]). 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 For the past five years, they have been working on his business together out of their home. As a gas torch brazier, she reported that he is often traveling, which results in her doing a lot of single parenting. 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 MENTAL STATUS: The patient was a well [...] these different factors may affect her symptoms. Follett I - 316.00 (psychological factors associated with medical condition) Follett II - no diagnosis Follett III - TMJ symptoms Follett IV - balancing the responsibilities of work and home Follett V - GAF is 75-80 The amount [...] on filedocumented in this encounter Care Teams Kiln Operator Helper Relationship Specialty Start Date End Date Madelin Becerril MD PCP - General 07/17/1996 07/20/[address] [place] [address] documented as of this encounter
--- OUTSIDE RECORDS SUMMARY | 2022-05-04 05:35 | XMS_ITS | Encounter Summary ---
:1970 Author Organization [facility] Address [address] [address] Care Team Providers Name Role Phone Unassigned, Provider Primary Care Provider Unavailable Encounter Details Date Type Department Care Team Description 03/09/2001 Office Visit [facility] HEADACHE ; Practice MD [facility] [place] [address] Caryn Marcos [place] [address] [address] [address] [place] [address] Social History Tobacco Use Types Packs/Day Years [...] disturbance documented in this encounter Care Teams Installation And Repair Technician Relationship Specialty Start Date End Date Unassigned, Provider PCP - General 07/21/00 03/02/[address] [place] [address] documented as of this encounter
--- OUTSIDE RECORDS SUMMARY | 2022-05-04 05:35 | XMS_ITS | Encounter Summary ---
:1970 Author Organization [facility] Address [address] [place] [address] Care Team Providers Name Role Phone Unassigned, Provider Primary Care Provider Unavailable Encounter Details Date Type Department Care Team Description 12/11/2000 Office Visit [facility] Madisyn Smalls G YNECOLOGIC Practice CHAIN PERSON, REAL ESTATE SALES ASSOCIATE EXAMINATION [address] [facility] [address] [place] [address] [phone] (Wo rk) Social History Tobacco Use Types [...] history is negative for hypertension, hyperlipidemia, early [place] or diabetes mellitus. Paternal grandmother with breast [...] examination documented in this encounter Care Teams Undercover Cop Relationship Specialty Start Date End Date Unassigned, Provider PCP - General 07/21/00 03/02/[address] [place] [address] documented as of this encounter
[2022-05-04 05:36] LABS: Slide Review Reflex No
--- OUTSIDE RECORDS SUMMARY | 2022-05-04 05:36 | XMS_ITS | Encounter Summary ---
:1970 Author Organization [facility] Address [address] [place] [address] Care Team Providers Name Role Phone Luis Smalls APRN, AGUSTIN Primary Care Provider [phone] Encounter Details Date Type Department Care Team Description 12/24/1999 Orders Only Unknown, Physici an [address] [place], [place] [address] (Wo rk) Social History Tobacco Use Types Packs/Day Years Used Date Smoking Tobacco: Never Assessed Sex Assigned at Date Recorded Not on file documented as of this encounter Plan of Treatment Not on filedocumented as of this encounter Procedures Procedure Name Priority Date/Time Associated Diagnosis Comme nts SHOPPING CENTRE MANAGER CYTOLOGY Routine 12/24/1999 9:15 AM Results f or this CDT procedure are i n the results section . documented in this encounter Results SHOPPING CENTRE MANAGER CYTOLOGY (12/24/1999 9:15 AM CDT) [facility] Method Time Signature Sample Tailor Cytology Sample Tailor Cytology Report [facility] Patient Name: RAHAT THOMASON [...] History: Other Clinical Conditions: LAST PAP: 08/08/98 [facility] [id number] Other Related Clinical Data Specimen Anatomical Collection Method Collection Time Receive d Time (Source) Location / / Volume Laterality 12/24/1999 9:15 AM 0 CDT 10:27 AM CDT Physician Unknown UNLISTED CODE Performing Organization Address City/State/ZIP Code Phon e Number [address] [address] [place], [place] [phone] documented in this encounter Visit Diagnoses Not on filedocumented in this encounter Care Teams Button Puncher Relationship Specialty Start Date End Date Luis Smalls, DONNIE, VICE CHANCELLOR PCP - General 03/03/02 11/04/10 [address] [place] [address] documented as of this encounter
--- OUTSIDE RECORDS SUMMARY | 2022-05-04 05:36 | XMS_ITS | Encounter Summary ---
:1970 Author Organization [facility] Address [address] [place] [address] Care Team Providers Name Role Phone Madelin Becerril MD Primary Care Provider Encounter Details Date Type Department Care Team Description 05/12/1998 Office Visit [facility] Thien Covington, [facility] Practice [address] [facility] [address] [place] [address] [phone] Social History Tobacco Use Types Packs/Day Years Used Date Smoking Tobacco: Never Assessed Sex Assigned at Date Recorded Not on file documented as of this encounter Plan of Treatment Not on filedocumented as of this encounter Visit Diagnoses Diagnosis VACCINE FOR INFLUENZA documented in this encounter Care Teams Gaming Surveillance Observer Relationship Specialty Start Date End Date Madelin Becerril MD PCP - General 07/17/1996 07/20/00 [email or web address] [place] [address] documented as of this encounter
--- OUTSIDE RECORDS SUMMARY | 2022-05-04 05:36 | XMS_ITS | Encounter Summary ---
:1970 Author Organization [facility] Address [address] [place] [address] Care Team Providers Name Role Phone Madelin Becerril MD Primary Care Provider Reason for Visit Reason Comments PAIN, NOS VIA INTERFACE Encounter Details Date Type Department Care Team Description 01/23/2000 Office Visit [facility] TMD Frankie, Karmen A, MYALGIA AND MYOSITIS [address] [place] [place] [address] Social History Tobacco Use Types Packs/Day Years Used Date Smoking Tobacco: Never Assessed Sex Assigned at Date Recorded Not on file documented as of this encounter Plan of Treatment Not on filedocumented as of this encounter Visit Diagnoses Diagnosis Myalgia and myositis, unspecified Mylagia and myositis, unspecified documented in this encounter Care Teams Subway Train Operator Relationship Specialty Start Date End Date Madelin Becerril MD PCP - General 07/17/1996 07/20/[email or web address] [place] [address] documented as of this encounter
--- OUTSIDE RECORDS SUMMARY | 2022-05-04 05:36 | XMS_ITS | Encounter Summary ---
:1970 Author Organization [facility] Address [address], [place] [address] Care Team Providers Name Role Phone Britney Jarrett MD Primary Care Provider Encounter Details Date Type Department Care Team Description 01/23/2000 Orders Only Madelin Becerril MD [address] [place], [place] [address] (Wo rk) Social History [...] documented as of this encounter Care Teams Pediatrics Physician Relationship Specialty Start Date End Date Britney Jarrett MD PCP - General 04/04/161999 [place] [address] documented as of this encounter
--- OUTSIDE RECORDS SUMMARY | 2022-05-04 05:36 | XMS_ITS | Encounter Summary ---
:1970 Author Organization [facility] Address [address], [place] [address] Care Team Providers Name Role Phone Madelin Becerril MD Primary Care Provider Encounter Details Date Type Department Care Team Description 08/08/1998 Office Visit [facility] Madelin Becerril, PRE OP EXAM OTHER SPECIFIED; Practice MD OBESITY NOS [address] [facility] [address] [place], [place] [address] [phone] Social History Tobacco Use Types Packs/Day Years [...] unspecified documented in this encounter Care Teams Document Examiner Relationship Specialty Start Date End Date Madelin Becerril MD PCP - General 07/17/1996 07/20/[address] [place] [address] documented as of this encounter
--- OUTSIDE RECORDS SUMMARY | 2022-05-04 05:36 | XMS_ITS | Encounter Summary ---
:1970 Author Organization [facility] Address [address] [place] [address] Care Team Providers Name Role Phone Madelin Becerril MD Primary Care Provider Reason for Visit Reason Comments LACERATION, FINGER VIA INTERFACE Encounter Details Date Type Department Care Team Description 04/27/1999 Office Visit [facility] OPEN WO UND SITE NOS; [place] VACCINE FOR TETANUS + DIPHTH ERIA [address] [place], [place] [address] Social History Tobacco Use Types Packs/Day Years Used Date Smoking Tobacco: Never Assessed Sex Assigned at Date Recorded Not on file documented as of this encounter Progress Notes Omaira Godfrye - 04/27/1999 12:00 AM CDTS. 28-year-old lady [...] (Td) documented in this encounter Care Teams Wood Casket Maker Relationship Specialty Start Date End Date Madelin Becerril MD PCP - General 07/17/1996 07/20/[address] [place] [address] documented as of this encounter
--- OUTSIDE RECORDS SUMMARY | 2022-05-04 05:36 | XMS_ITS | Encounter Summary ---
:1970 Author Organization [facility] Address [address] [place] [address] Care Team Providers Name Role Phone Madelin Becerril MD Primary Care Provider Reason for Visit Reason Comments EARACHE Encounter Details Date Type Department Care Team Description 02/18/1998 Telephone Careline Christa Christian, RN EARACHE [address] [place], [place] [address] [phone] [place] [address] Social History Tobacco Use Types Packs/Day Years Used Date Smoking Tobacco: Never Assessed Sex Assigned at Date Recorded Not on file documented as of this encounter Nursing Notes 02/18/1998 11:59 PM CDT >> CALL RECEIVED. Contact: [phone] >> CHRISTA CHRISTIAN 02/18/1998 12:50 pm Patient [...] filedocumented in this encounter Care Teams Social Sciences Department Chair Relationship Specialty Start Date End Date Madelin eBcerril MD PCP - General 07/17/1996 07/20/00 [address] [place] [address] documented as of this encounter
--- OUTSIDE RECORDS SUMMARY | 2022-05-04 05:36 | XMS_ITS | Encounter Summary ---
:1970 Author Organization [facility] Address [address] [place] [address] Care Team Providers Name Role Phone Madelin Becerril MD Primary Care Provider Encounter Details Date Type Department Care Team Description 08/08/1998 Orders Only Madelin Becerril MD [address] [place], [place] [address] (Wo rk) Social History Tobacco Use Types Packs/Day Years Used Date Smoking Tobacco: Never Assessed Sex Assigned at Date Recorded Not on file documented as of this encounter Plan of Treatment Not on filedocumented as of this encounter Procedures Procedure Name Priority Date/Time Associated Diagnosis Comme nts HEMOGLOBIN, BLOOD Waiting 08/08/1998 2:51 PM Resu lts for this INSURANCE AUDITOR procedure are i n the results section. CHOLESTEROL, TOTAL Routine 08/08/1998 2:51 PM Res ults for this AND HDL INSURANCE AUDITOR procedure are i n the results section. documented in this encounter Results CHOLESTEROL, TOTAL AND HDL (08/08/1998 2:51 PM INSURANCE AUDITOR) P athologist Signature Cholesterol 166 <200 mg/dl [facility] HDL 54 >35 mg/dl [place] Specimen Anatomical Collection Method Collection Time Receive d Time (Source) Location / / Volume Laterality 08/08/1998 2:51 PM 199 9 2:52 INSURANCE AUDITOR PM INSURANCE AUDITOR Madelin Becerril MD LAB_1 Performing Organization Address City/State/ZIP Code Phon e Number [facility] [phone] [facility] [address] [address] HEMOGLOBIN, BLOOD (08/08/1998 2:51 PM INSURANCE AUDITOR) athologist Signature Hemoglobin 14.1 12.0 - 16.0 [facility] g/dl Specimen Anatomical Collection Method Collection Time Receive d Time (Source) Location / / Volume Laterality 08/08/1998 2:51 PM 9 2:52 INSURANCE AUDITOR PM INSURANCE AUDITOR Madelin Becerril MD LAB_1 Performing Organization Address City/State/ZIP Code Phon e Number [facility] [phone] [facility] [address] [address] documented in this encounter Visit Diagnoses Not on filedocumented in this encounter Care Teams Pulmonary Specialist Relationship Specialty Start Date End Date Madelin Becerril MD PCP - General 07/17/1996 07/20/[address] [place] [address] documented as of this encounter
--- OUTSIDE RECORDS SUMMARY | 2022-05-04 05:36 | XMS_ITS | Encounter Summary ---
:1970 Author Organization [facility] Address [address] [place] [address] Care Team Providers Name Role Phone Madelin Becerril MD Primary Care Provider Encounter Details Date Type Department Care Team Description 03/23/1998 Office Visit [place] [facility] Kilo Winston MD S [facility] FOLLOW-UP Medicine [address] [place], [place] [address] Social History Tobacco Use Types [...] surgery documented in this encounter Care Teams Licensed Psychologist Director Relationship Specialty Start Date End Date Madelin Becerril MD PCP - General 07/17/1996 07/20/[address] [place] [address] documented as of this encounter
--- OUTSIDE RECORDS SUMMARY | 2022-05-04 05:36 | XMS_ITS | Encounter Summary ---
:1970 Author Organization [facility] Address [address] [place] [address] Care Team Providers Name Role Phone Madelin Becerril MD Primary Care Provider Encounter Details Date Type Department Care Team Description 03/21/1998 Office Visit [facility] Enmanuel Hutchison MD CERVICALGIA [address] [facility] [address] [place], [place] [address] [place] [address] [phone] (Wo rk) Social History Tobacco Use Types [...] Cervicalgia documented in this encounter Care Teams Urban Planning Professor Relationship Specialty Start Date End Date Madelin Becerril MD PCP - General 07/17/1996 07/20/[address] [place] [address] documented as of this encounter
--- OUTSIDE RECORDS SUMMARY | 2022-05-04 05:36 | XMS_ITS | Encounter Summary ---
:1970 Author Organization [facility] Address [address] [place] [address] Care Team Providers Name Role Phone Madelin Becerril MD Primary Care Provider Reason for Visit Reason Comments Suture/Staple Removal VIA INTERFACE Encounter Details Date Type Department Care Team Description 05/04/1999 Office Visit [facility] Unknown, DRESSNG CHANGE Practice Physician SUTURE/STAPLE REMOVAL [address] [facility] [address], [place] [address] [place], [place] [phone] [address] Social History Tobacco Use Types Packs/Day Years Used Date Smoking Tobacco: Never Assessed Sex Assigned at Date Recorded Not on file documented as of this encounter Plan of Treatment Not on filedocumented as of this encounter Visit Diagnoses Diagnosis Attention to dressings and sutures documented in this encounter Care Teams Actuary Manager Relationship Specialty Start Date End Date Madelin Becerril MD PCP - General 07/17/1996 07/20/00 [address] [place] [address] documented as of this encounter
--- OUTSIDE RECORDS SUMMARY | 2022-05-04 05:36 | XMS_ITS | Encounter Summary ---
:1970 Author Organization [facility] Address [address] [place] [address] Care Team Providers Name Role Phone Madelin Becerril MD Primary Care Provider Encounter Details Date Type Department Care Team Description 02/18/1998 Office Visit [facility] Shirley Carrillo MD OTITIS MEDIA [facility] [address] [facility] [address] [place], [place] [phone] (Wo rk) Social [...] fluids, may use some ocean spray or mcoz-tzf-qehfuth nose spray for the next two to three days if needed. If symptoms increase or persist over the next three to five days she is to return to clinic for a recheck. cc: documented in this encounter Plan of Treatment Not on filedocumented as of this encounter Visit Diagnoses Diagnosis Unspecified otitis media documented in this encounter Care Teams Anger Control Counselor Relationship Specialty Start Date End Date Madelin Becerril MD PCP - General 07/17/1996 07/20/[address] [place] [address] documented as of this encounter
--- OUTSIDE RECORDS SUMMARY | 2022-05-04 05:36 | XMS_ITS | Encounter Summary ---
:1970 Author Organization [facility] Address [address] [place] [address] Care Team Providers Name Role Phone Madelin Becerril MD Primary Care Provider Encounter Details Date Type Department Care Team Description 06/14/1999 Orders Only Diane Johnston MD [address] [facility] 80 (Wo rk) Social History Tobacco Use Types Packs/Day Years Used Date Smoking Tobacco: Never Assessed Sex Assigned at Date Recorded Not on file documented as of this encounter Plan of Treatment Not on filedocumented as of this encounter Procedures Procedure Name Priority Date/Time Associated Diagnosis Comme nts VAGINAL WET PREP Waiting 06/14/1999 2:41 PM Resul ts for this CHIEF EMBALMER procedure are i n the results section. documented in this encounter Results WET PREP, VAGINAL (06/14/1999 2:41 PM CHIEF EMBALMER) [facility] Method Time Signature Epithelials Moderate [facility] % Atrophic 0 [facility] Epith WBC'S Occ [facility] Bacteria Moderate [facility] Clue Cells 0 [facility] Trichomonas 0 [facility] Yeast Positive [facility] pH 4.5 3.5 - 4.5 [facility] Comment Vaginal [facility] Cream Present Specimen Anatomical Collection Method Collection Time Receive d Time (Source) Location / / Volume Laterality 06/14/1999 2:41 PM 9 2:42 CHIEF EMBALMER PM CHIEF EMBALMER Diane Johnston MD LAB_1 Performing Organization Address City/State/ZIP Code Phon e Number [facility] [phone] [facility] [address] [address] documented in this encounter Visit Diagnoses Not on filedocumented in this encounter Care Teams Criminal Court Judge Relationship Specialty Start Date End Date Madelin Becerril MD PCP - General 07/17/1996 07/20/[address] [place] [address] documented as of this encounter
--- OUTSIDE RECORDS SUMMARY | 2022-05-04 05:36 | XMS_ITS | Encounter Summary ---
:1970 Author Organization [facility] Address [address], [place] [address] Care Team Providers Name Role Phone Britney Jarrett MD Primary Care Provider Encounter Details Date Type Department Care Team Description 02/18/1998 Orders Only ZzLadi [place] [address] Social History Tobacco Use Types Packs/Day Years [...] documented as of this encounter Care Teams Cheese Production Supervisor Relationship Specialty Start Date End Date Britney Jarrett MD PCP - General 04/04/161999 [place] [address] documented as of this encounter
--- OUTSIDE RECORDS SUMMARY | 2022-05-04 05:36 | XMS_ITS | Encounter Summary ---
:1970 Author Organization [facility] Address [address] [place] [address] Care Team Providers Name Role Phone Madelin Becerril MD Primary Care Provider Reason for Visit Reason Comments VAGINITIS VIA INTERFACE Encounter Details Date Type Department Care Team Description 06/14/1999 Office Visit [facility] Diane Johnston VAGINITIS/VULVOVAGINIT Practice BMD IS, UNSPEC(BACTERIAL V [address] [phone] [address] Social History Tobacco Use Types Packs/Day Years [...] d documented in this encounter Care Teams Stock Pitcher Relationship Specialty Start Date End Date Madelin Becerril MD PCP - General 07/17/1996 07/20/[address] [place] [address] documented as of this encounter
--- OUTSIDE RECORDS SUMMARY | 2022-05-04 05:36 | XMS_ITS | Encounter Summary ---
:1970 Author Organization [facility] Address [address] [place] [address] Care Team Providers Name Role Phone Madelin Becerril MD Primary Care Provider Reason for Visit Reason Comments OD EXAM VIA INTERFACE Encounter Details Date Type Department Care Team Description 07/12/1999 Office Visit [place] [facility] Consoer, Jignesh Haskins, OD MYOPIA [address] [place], [place] [address] Social History Tobacco Use Types Packs/Day Years Used Date Smoking Tobacco: Never Assessed Sex Assigned at Date Recorded Not on file documented as of this encounter Plan of Treatment Not on filedocumented as of this encounter Visit Diagnoses Diagnosis Myopia documented in this encounter Care Teams Freelance Graphic Designer Relationship Specialty Start Date End Date Madelin Becerril MD PCP - General 07/17/1996 07/20/[address] [place] [address] documented as of this encounter
--- OUTSIDE RECORDS SUMMARY | 2022-05-04 05:36 | XMS_ITS | Encounter Summary ---
:1970 Author Organization [facility] Address [address] [place] [address] Care Team Providers Name Role Phone Madelin Becerril MD Primary Care Provider Encounter Details Date Type Department Care Team Description 05/11/1998 Office Visit [facility] Madelin Becerril, STELLA HINKLE; Practice BENIGN SARAH SKIN LEG [address] [facility] [address] [place], [place] [address] [place] [address] [phone] (Wo rk) Social History Tobacco Use Types [...] hip documented in this encounter Care Teams Brickmason Supervisor Relationship Specialty Start Date End Date Madelin Becerril MD PCP - General 07/17/1996 07/20/00 [address] [address] documented as of this encounter
--- OUTSIDE RECORDS SUMMARY | 2022-05-04 05:36 | XMS_ITS | Encounter Summary ---
:1970 Author Organization [facility] Address [address] [place] [address] Care Team Providers Name Role Phone Madelin Becerril MD Primary Care Provider Reason for Visit Reason Comments LACERATION, FINGER av [facility] 24 min adult appt Encounter Details Date Type Department Care Team Description 04/27/1999 Telephone Careline Radha Morris, LACERATION, FINGER (av [address] RN [facility] 24 min adult appt) [place], [place] [address] [facility] [phone] [facility] [address] Social History Tobacco Use Types Packs/Day Years [...] on filedocumented in this encounter Care Teams Slab Stripper Relationship Specialty Start Date End Date Madelin Becerril MD PCP - General 07/17/1996 07/20/[address] [place] [address] documented as of this encounter
--- OUTSIDE RECORDS SUMMARY | 2022-05-04 05:36 | XMS_ITS | Encounter Summary ---
:1970 Author Organization [facility] Address [address] [place] [address] Care Team Providers Name Role Phone Madelin [...] on filedocumented in this encounter Care Teams Infrastructure Tech Relationship Specialty Start Date End Date Madelni Becerril MD PCP - General 07/17/1996 07/20/[address] [place] [address] documented as of this encounter
--- OUTSIDE RECORDS SUMMARY | 2022-05-04 05:36 | XMS_ITS | Encounter Summary ---
:1970 Author Organization [facility] Address [address] [place] [address] Care Team Providers Name Role Phone Madelin Becerril MD Primary Care Provider Encounter Details Date Type Department Care Team Description 01/16/1998 Office Visit [place] [facility] Kilo Winston MD S [facility] FOLLOW-UP Medicine [address] [place], [place] [address] Social History Tobacco Use Types [...] surgery documented in this encounter Care Teams Self Pay Specialist Relationship Specialty Start Date End Date Madelin Becerril MD PCP - General 07/17/1996 07/20/[address] [place] [address] documented as of this encounter
--- OUTSIDE RECORDS SUMMARY | 2022-05-04 05:36 | XMS_ITS | Encounter Summary ---
:1970 Author Organization [employer] Address [address] [place] [address] Care Team Providers Name Role Phone Madelin Becerril MD Primary Care Provider Reason for Visit Reason Comments PE AND PAP VIA INTERFACE Encounter Details Date Type Department Care Team Description 12/24/[address] [facility] Madisyn Smalls P REVENTIVE CARE EXAM; Practice PROFESSOR OF SPANISH, DEPARTMENT OPERATIONS MANAGER GYNECOLOGIC EXAMINATION; [address] [facility] [address] [facility] [place] SCREEN MAL NEOP-BREAST,UNSPEC; [place], [place] TM JOIN T DISORDER, UNSPEC [phone] (Wo rk) Social History Tobacco Use Types [...] out of their home. 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 Immunization up-to-date REVIEW OF SYSTEMS: General state [...] Diagnoses Diagnosis Routine general medical examination at [facility] facility Routine general medical examination at [facility] care facility Gynecological examination Breast screening, unspecified Temporomandibular joint disorders, unspe cified documented in this encounter Care Teams Process Planner Relationship Specialty Start Date End Date Madelin Becerril MD PCP - General 07/17/1996 07/20/00 [address] [place] [address] documented as of this encounter
--- OUTSIDE RECORDS SUMMARY | 2022-05-04 05:36 | XMS_ITS | Encounter Summary ---
:1970 Author Organization [facility] Address [address] [place] [address] Care Team Providers Name Role Phone Madelin [...] will notice clenching with exercising. 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
--- OUTSIDE RECORDS SUMMARY | 2022-05-04 05:36 | XMS_ITS | Encounter Summary ---
:1970 Author Organization [facility] Address [address], [place] [address] Care Team Providers Name Role Phone Madelin Becerril MD Primary Care Provider Reason for Visit Reason Comments MOLE,EVALUATION VIA INTERFACE Encounter Details Date Type Department Care Team Description 01/02/2000 Office Visit Caryn Marcos [facility] Bandar Haider SKIN DIS ORDER NOS Practice MD [place] [address] [place] [address] [place] [address] [place], [place] [address] (Wo rk) Social History [...] tissue documented in this encounter Care Teams Cable Lacer Relationship Specialty Start Date End Date Madelin Becerril MD PCP - General 07/17/1996 07/20/[address] [place] [address] documented as of this encounter
--- OUTSIDE RECORDS SUMMARY | 2022-05-04 05:36 | XMS_ITS | Encounter Summary ---
:1970 Author Organization [facility] Address [address] [place] [address] Care Team Providers Name Role Phone Britney Jarrett MD Primary Care Provider Encounter Details Date Type Department Care Team Description 12/24/1999 Orders Only Madisyn Villanueva, [address] [place], [place], [place] [phone] [facility] [place] [place] [phone] [place] [address] (Wo rk) Social History Tobacco [...] PAP SMEAR, ROUTINE (12/24/1999 9:15 AM CDT) [facility] Method Time Signature Pap Smear, See Separate Report [facility] Routine Performed at [facility] Specimen Anatomical Collection Method Collection Time Receive d Time (Source) Location / / Volume Laterality 12/24/1999 9:15 AM 0 3:46 CDT PM CDT Madisyn Smalls APRN, CNP LAB_1 Performing Organization Address City/State/ZIP Code Phon e Number [facility] [phone] [facility] [address] [place] [phone] documented in this encounter Visit Diagnoses Not on filedocumented in this encounter Care Teams Cupola Man Relationship Specialty Start Date End Date Britney Jarrett MD PCP - General 04/15/13 04/03/161999 [place] [address] documented as of this encounter
--- OUTSIDE RECORDS SUMMARY | 2022-05-04 05:36 | XMS_ITS | Encounter Summary ---
:1970 Author Organization [facility] Address [address] [place] [address] Care Team Providers Name Role Phone Madelin Becerril MD Primary Care Provider Reason for Visit Reason Comments PAIN, NOS VIA INTERFACE Encounter Details Date Type Department Care Team Description 01/28/2000 Office Visit [facility] Estevan, Alesia [facility] [address] 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
--- OUTSIDE RECORDS SUMMARY | 2022-05-04 05:36 | XMS_ITS | Encounter Summary ---
:1970 [facility] Address [address] [place] [address] Care Team Providers Name Role Phone Madelin Becerril MD Primary Care Provider Reason for Visit Reason Comments SHOT,FLU VIA INTERFACE Encounter Details Date Type Department Care Team Description 05/14/1999 [facility] Visit [facility], VACCINE FOR INFLUENZA Practice Physician [id number] [place] [address] [address], [place] [address] [place], [place] [phone] [address] Social History Tobacco Use Types Packs/Day Years Used Date Smoking Tobacco: Never Assessed Sex Assigned at Date Recorded Not on file documented as of this encounter Plan of Treatment Not on filedocumented as of this encounter Visit Diagnoses Diagnosis VACCINE FOR INFLUENZA documented in this encounter Care Teams Collar Cutter Relationship Specialty Start Date End Date Madelin Becerril MD PCP - General 07/17/1996 07/20/00 [address] [address] documented as of this encounter
--- OUTSIDE RECORDS SUMMARY | 2022-05-04 05:37 | XMS_ITS | Encounter Summary ---
:1970 Author Organization [facility] Address [address] [place] [address] Care Team Providers Name Role Phone Madelin [...] syndrome documented in this encounter Care Teams Program Director Group Work Relationship Specialty Start Date End Date Madelin Becerril MD PCP - General 07/17/1996 07/20/[address] [place] [address] documented as of this encounter
--- OUTSIDE RECORDS SUMMARY | 2022-05-04 05:37 | XMS_ITS | Encounter Summary ---
:1970 Author Organization [facility] Address [address] [place] [address] Care Team Providers Name Role Phone Madelin Becerril MD Primary Care Provider Encounter Details Date Type Department Care Team Description 03/07/1997 Office Visit Madelin Becerril MD PREVENTIVE CARE EXAM [address] [place], [place] [address] (Wo rk) Social History [...] Diagnosis Routine [facility] Routine general medical examination at [facility] care facility documented in this encounter Care Teams Able Seaman Relationship Specialty Start Date End Date Madelin Becerril MD PCP - General 07/17/1996 07/20/[address] [place] [address] documented as of this encounter
--- OUTSIDE RECORDS SUMMARY | 2022-05-04 05:37 | XMS_ITS | Encounter Summary ---
:1970 Author [facility] Address [address] [place] [address] Care Team Providers Name Role Phone Madelin Becerril MD Primary Care Provider Encounter Details Date Type Department Care Team Description 05/18/1997 Office Visit Bandar Haider MD VACCINE FOR INFLUENZA [address] [place], [place] [address] (Wo rk) Social History Tobacco Use Types Packs/Day Years Used Date Smoking Tobacco: Never Assessed Sex Assigned at Date Recorded Not on file documented as of this encounter Plan of Treatment Not on filedocumented as of this encounter Visit Diagnoses Diagnosis VACCINE FOR INFLUENZA documented in this encounter Care Teams Boiler Operator Helper Relationship Specialty Start Date End Date Madelin Becerril MD PCP - General 07/17/1996 07/20/[address] [place] [address] documented as of this encounter
--- OUTSIDE RECORDS SUMMARY | 2022-05-04 05:37 | XMS_ITS | Encounter Summary ---
:1970 Author Organization [facility] Address [address] [place] [address] Care Team Providers Name Role Phone Madelin Becerril MD Primary Care Provider Encounter Details Date Type Department Care Team Description 10/21/1997 Office Visit Madelin Becerril MD PREVENTIVE CARE EXAM [address] [place] [address] (Wo rk) Social History [...] Routine general medical examination at [facility] facility Routine general medical examination at [facility] care facility documented in this encounter Care Teams Food Sales Clerk Relationship Specialty Start Date End Date Madelin Becerril MD PCP - General 07/17/1996 07/20/[address] [place] [address] documented as of this encounter
--- OUTSIDE RECORDS SUMMARY | 2022-05-04 05:37 | XMS_ITS | Encounter Summary ---
:1970 Author Organization [facility] Address [address], [place] [address] Care Team Providers Name Role Phone Madelin Becerril MD Primary Care Provider Encounter Details Date Type Department Care Team Description 05/12/1996 Office Visit [place] MD VACCINE FOR INFLUENZA [facility] [address] [place], [place] [address] Social History Tobacco Use Types Packs/Day Years Used Date Smoking Tobacco: Never Assessed Sex Assigned at Date Recorded Not on file documented as of this encounter Plan of Treatment Not on filedocumented as of this encounter Visit Diagnoses Diagnosis VACCINE FOR INFLUENZA documented in this encounter Care Teams Substation Engineer Relationship Specialty Start Date End Date Madelin Becerril MD PCP - General 07/17/1996 07/20/00 [address] [place] [address] documented as of this encounter
--- OUTSIDE RECORDS SUMMARY | 2022-05-04 05:37 | XMS_ITS | Encounter Summary ---
:1970 Author Organization [facility] Address [address] [place] [address] Care Team Providers Name Role Phone Madelin Becerril MD Primary Care Provider Encounter Details Date Type Department Care Team Description 03/11/1996 Office Visit Jose E Baig CARPAL TUNNEL SYNDROME Practice MD Shayna [facility] [address] [address] [place] [address] Social History Tobacco Use Types Packs/Day Years Used Date Smoking Tobacco: Never Assessed Sex Assigned at Date Recorded Not on file documented as of this encounter Progress Notes Vipul Angeles - 03/11/1996 12:00 AM CDTS. Here for recurrent wrist pain. She has documented carpal tunnel syndrome and has had prison relief of sx's from a steroid injection [...] syndrome documented in this encounter Care Teams Hardware Installer Relationship Specialty Start Date End Date Madelin Becerril MD PCP - General 07/17/1996 07/20/[address] [place] [address] documented as of this encounter
--- OUTSIDE RECORDS SUMMARY | 2022-05-04 05:37 | XMS_ITS | Encounter Summary ---
:1970 Author Organization [facility] Address [address] [address] Care Team Providers Name Role Phone Britney [...] documented as of this encounter Care Teams Travel Agency Manager Relationship Specialty Start Date End Date Britney Jarrett MD PCP - General 04/04/161999 [place] [address] documented as of this encounter
--- OUTSIDE RECORDS SUMMARY | 2022-05-04 05:37 | XMS_ITS | Encounter Summary ---
:1970 Author Organization [facility] Address [address] [place] [address] Care Team Providers Name Role Phone Madelin [...] syndrome documented in this encounter Care Teams Ferry Boat Captain Relationship Specialty Start Date End Date Madelin Becerril MD PCP - General 07/17/1996 07/20/[address] [place] [address] documented as of this encounter
--- OUTSIDE RECORDS SUMMARY | 2022-05-04 05:37 | XMS_ITS | Encounter Summary ---
:1970 Author Organization [facility] Address [address] [place] [address] Care Team Providers Name Role Phone Madelin Becerril MD Primary Care Provider Encounter Details Date Type Department Care Team Description 07/24/1995 Office Visit Oni Meyer MD Carpal tunnel syndrome [address] [facility] [address] [place], [place] [address] (Wo rk) Social History Tobacco Use [...] syndrome documented in this encounter Care Teams Outcomes Specialist Relationship Specialty Start Date End Date Madelin Becerril MD PCP - General 07/17/1996 07/20/00 [address] [place] [address] documented as of this encounter
--- OUTSIDE RECORDS SUMMARY | 2022-05-04 05:37 | XMS_ITS | Encounter Summary ---
:1970 Author Organization [employer] Address [address] [place] [address] Care Team Providers Name Role Phone Madelin Becerril MD Primary Care Provider Encounter Details Date Type Department Care Team Description 10/25/1997 Orders Only Madelin Becerril MD LUMP OR MASS IN BREAST; [address] FAMILY HX-BREAST [place], [place] [address] (Wo rk) Social History [...] MD cc: Radiology IG Madelin Huber MD STONE POLISHER documented in this encounter Plan of Treatment Not on filedocumented as of this encounter Procedures Procedure Name Priority Date/Time Associated Diagnosis Comme nts MAMMOGRAM, 10/25/1997 12:00 AM Lump Or Mass In Resul ts for this BILATERAL DIAGNOSTI TOMBSTONE POLISHER Breast procedure are in Family Hx-Breast the results Malig section. documented in this encounter Results MAMMOGRAM, BILATERAL DIAGNOSTIC (10/25/1997 12:00 AM TOMBSTONE POLISHER) Anatomical Region Laterality Modality Breast Other Specimen [...] MD cc: Radiology IG Madelin Huber MD Madelin Becerril MD RAD_BI documented in this encounter Visit Diagnoses Diagnosis Lump or mass in breast Family history of malignant neoplasm of breast documented in this encounter Care Teams Automatic Tire Tester Relationship Specialty Start Date End Date Madelin Becerril MD PCP - General 07/17/1996 07/20/[address] [place] [address] documented as of this encounter
--- OUTSIDE RECORDS SUMMARY | 2022-05-04 05:37 | XMS_ITS | Encounter Summary ---
:1970 Author Organization [facility] Address [address] [place] [address] Care Team Providers Name Role Phone Madelin Becerril MD Primary Care Provider Encounter Details Date Type Department Care Team Description 11/25/1995 Office Visit Oni Meyer MD Carpal tunnel syndrome [address] [facility] [address] [place] [address] (Wo rk) Social History Tobacco Use [...] syndrome documented in this encounter Care Teams Pen Maker Relationship Specialty Start Date End Date Madelin Becerril MD PCP - General 07/17/1996 07/20/[address] [place] [address] documented as of this encounter
--- OUTSIDE RECORDS SUMMARY | 2022-05-04 05:37 | XMS_ITS | Encounter Summary ---
:1970 Author Organization [facility] Address [address] [place] [address] Care Team Providers Name Role Phone Madelin [...] cyst documented in this encounter Care Teams Hvac Design Engineer Relationship Specialty Start Date End Date Madelin Becerril MD PCP - General 07/17/1996 07/20/[address] [place] [address] documented as of this encounter
--- OUTSIDE RECORDS SUMMARY | 2022-05-04 05:37 | XMS_ITS | Encounter Summary ---
:1970 Author Organization [facility] Address [address] [place] [address] Care Team Providers Name Role Phone Madelin Becerril MD Primary Care Provider Encounter Details Date Type Department Care Team Description 11/03/1997 Office Visit [place] [facility] Kilo Winston DIFF CYSTIC Medicine MD MASTOPATHY [address] [place], [place] [address] Social History Tobacco Use Types [...] mastopathy documented in this encounter Care Teams Ammonium Nitrate Neutralizer Relationship Specialty Start Date End Date Madelin Becerril MD PCP - General 07/17/1996 07/20/[address] [place] [address] documented as of this encounter
--- OUTSIDE RECORDS SUMMARY | 2022-05-04 05:37 | XMS_ITS | Encounter Summary ---
:1970 Author Organization [facility] Address [address] [place] [address] Care Team Providers Name Role Phone Madelin Becerril MD Primary Care Provider Encounter Details Date Type Department Care Team Description 12/22/1997 Office Visit [place] [facility] Kilo Winston MD [facility] FOLLOW-UP Medicine [address] [facility] [place], [place] [address] Social History Tobacco Use Types [...] surgery documented in this encounter Care Teams Cooker Sulfite Relationship Specialty Start Date End Date Madelin Becerril MD PCP - General 07/17/1996 07/20/00 [address] [place] [address] documented as of this encounter
--- OUTSIDE RECORDS SUMMARY | 2022-05-04 05:37 | XMS_ITS | Encounter Summary ---
:1970 Author Organization [facility] Address [address] [place] [address] Care Team Providers Name Role Phone Madelin Becerril MD Primary Care Provider Encounter Details Date Type Department Care Team Description 05/01/1996 [facility] Visit [facility] Jose E Domingo, ACUTE URI [facility] [address] [facility] FAMILY PRACTICE [place], [place] [address] [facility] [phone] [place] [address] (Wo rk) Social History Tobacco Use Types Packs/Day Years Used Date Smoking Tobacco: Never Assessed Sex Assigned at Date Recorded Not on file documented as of this encounter Plan of Treatment Not on filedocumented as of this encounter Visit Diagnoses Diagnosis Acute upper respiratory infections of un specified site documented in this encounter Care Teams Nursing Staff Development Coordinator Relationship Specialty Start Date End Date Madelin Becerril MD PCP - General 07/17/1996 07/20/[address] [place] [address] documented as of this encounter
--- OUTSIDE RECORDS SUMMARY | 2022-05-04 05:37 | XMS_ITS | Encounter Summary ---
:1970 Author Organization [facility] Address [address] [place] [address] Care Team Providers Name Role Phone Madelin Becerril MD Primary Care Provider Encounter Details Date Type Department Care Team Description 08/10/1996 Office Visit Madelin Becerril MD OTITIS MEDIA NOS; [address] ACUTE PHARYNGITIS(SORE THROAT) [place], [place] [address] (Wo rk) Social History [...] pharyngitis documented in this encounter Care Teams Brick Shader Relationship Specialty Start Date End Date Madelin Becerril MD PCP - General 07/17/1996 07/20/[address] [place] [address] documented as of this encounter
--- OUTSIDE RECORDS SUMMARY | 2022-05-04 05:37 | XMS_ITS | Encounter Summary ---
:1970 Author Organization [facility] Address [address] [place] [address] Care Team Providers Name Role Phone Madelin Becerril MD Primary Care Provider Encounter Details Date Type Department Care Team Description 12/30/1996 Office Visit [facility], Jignesh Haskins, MYOPIA; [address] OD EYE & VISION EXAMINATION [place], [place] [address] Social History Tobacco Use Types Packs/Day Years Used Date Smoking Tobacco: Never Assessed Sex Assigned at Date Recorded Not on file documented as of this encounter Plan of Treatment Not on filedocumented as of this encounter Visit Diagnoses Diagnosis Myopia Examination of eyes and vision documented in this encounter Care Teams Clothing Man Relationship Specialty Start Date End Date Madelin Becerril MD PCP - General 07/17/1996 07/20/00 [address] [address] documented as of this encounter
--- OUTSIDE RECORDS SUMMARY | 2022-05-04 05:37 | XMS_ITS | Encounter Summary ---
:1970 Author Organization [facility] Address [address], [place] [address] Care Team Providers Name Role Phone Madelin Becerril MD Primary Care Provider Encounter Details Date Type Department Care Team Description 12/13/1997 Office Visit [facility] Madelin Becerril, LUM P OR MASS IN BREAST; Practice MD PREOP EXAM OTHER SPECIFIED [address] [place] [address] [address] [place], [place] [address] [phone] Social History Tobacco Use Types Packs/Day Years Used Date Smoking Tobacco: Never Assessed Sex Assigned at Date Recorded Not on file documented as of this encounter Plan of Treatment Not on filedocumented as of this encounter Visit Diagnoses Diagnosis Lump or mass in breast Other specified pre-operative examinatio n documented in this encounter Care Teams Sap Technical Architect Relationship Specialty Start Date End Date Madelin Becerril MD PCP - General 07/17/1996 07/20/00 [address] [place] [address] documented as of this encounter
--- OUTSIDE RECORDS SUMMARY | 2022-05-04 05:37 | XMS_ITS | Encounter Summary ---
:1970 Author Organization [facility] Address [address], [place] [address] Care Team Providers Name Role Phone Madelin Becerril MD Primary Care Provider Encounter Details Date Type Department Care Team Description 06/12/1995 Office Visit Oni Meyer MD Carpal tunnel syndrome [address] [facility] [address] [place], [place] [address] (Wo rk) Social History Tobacco Use [...] syndrome documented in this encounter Care Teams Test Boring Crew Chief Relationship Specialty Start Date End Date Madelin Becerril MD PCP - General 07/17/1996 07/20/[address] [place] [address] documented as of this encounter
--- OUTSIDE RECORDS SUMMARY | 2022-05-04 05:37 | XMS_ITS | Encounter Summary ---
:1970 Author Organization [facility] Address [address] [place] [address] Care Team Providers Name Role Phone Madelin Becerril MD Primary Care Provider Encounter Details Date Type Department Care Team Description 12/26/1997 [facility] Visit [facility] Franky Malagon MD [address] [address] [place] PHARYNGITIS(SORE [id number] THROAT) [place], [place] [phone] (W ork) [address] [phone] Social History Tobacco Use Types Packs/Day Years [...] pharyngitis documented in this encounter Care Teams Snowboard Instructor Relationship Specialty Start Date End Date Madelin Becerril MD PCP - General 07/17/1996 07/20/[address] [place] [address] documented as of this encounter
--- OUTSIDE RECORDS SUMMARY | 2022-05-04 05:37 | XMS_ITS | Encounter Summary ---
:1970 Author Organization [facility] Address [address] [place] [address] Care Team Providers Name Role Phone Madelin Becerril MD Primary Care Provider Encounter Details Date Type Department Care Team Description 12/13/1997 Notes/Orders Madelin Becerril MD [address] [place], [place] [address] (Wo rk) Social [...] [facility] [phone] [address] documented in this encounter Visit Diagnoses Not on filedocumented in this encounter Care Teams Utility Maintenance Worker Relationship Specialty Start Date End Date Madelin Becerril MD PCP - General 07/17/1996 07/20/[address] [place] [address] documented as of this encounter
--- OUTSIDE RECORDS SUMMARY | 2022-05-04 05:37 | XMS_ITS | Encounter Summary ---
:1970 Author Organization [facility] Address [address] [place] [address] Care Team Providers Name Role Phone Madelin Becerril MD Primary Care Provider Encounter Details Date Type Department Care Team Description 11/28/1995 Office Visit [facility] Ann Marie Rincon, Carpal tunnel syndrome [address] Lisa BARAKAT [place], [place] [address] Social History Tobacco Use Types Packs/Day Years Used Date Smoking Tobacco: Never Assessed Sex Assigned at Date Recorded Not on file documented as of this encounter Plan of Treatment Not on filedocumented as of this encounter Visit Diagnoses Diagnosis Carpal tunnel syndrome documented in this encounter Care Teams Sales Support Manager Relationship Specialty Start Date End Date Madelin Becerril MD PCP - General 07/17/1996 07/20/00 [address] [place] [address] documented as of this encounter
--- OUTSIDE RECORDS SUMMARY | 2022-05-04 05:37 | XMS_ITS | Encounter Summary ---
:1970 Author Organization [facility] Address [address] [address] Care Team Providers Name Role Phone Britney [...] documented as of this encounter Care Teams Conveyor Maintenance Mechanic Relationship Specialty Start Date End Date Britney Jarrett MD PCP - General 04/04/161999 [place] [address] documented as of this encounter
--- OUTSIDE RECORDS SUMMARY | 2022-05-04 05:37 | XMS_ITS | Encounter Summary ---
:1970 Author Organization [facility] Address [address] [place] [address] Care Team Providers Name Role Phone Madelin Becerril MD Primary Care Provider Reason for Visit Reason Comments RAO GUTIERREZ MD Encounter Details Date Type Department Care Team Description 12/26/1997 Telephone Careline Keily Mcknight SORE THROAT, MD [address] HORTICULTURAL FARMWORKER, WAIST CUTTER [place], [place] [address] [phone] [place], [place] [address] (Wo rk) Social History Tobacco Use Types Packs/Day Years Used Date Smoking Tobacco: Never Assessed Sex Assigned at Date Recorded Not on file documented as of this encounter Nursing Notes 12/26/1997 11:59 PM CDT >> CALL RECEIVED. Contact: [phone] self >> KEILY MCKNIGHT 12/26/1997 09:33 am sore throat x 10d, went away, now back again, no fever, no other sx, radiates to ears when swallows, no dyspnea, can swallow, very painful, throat red, no chills documented in this encounter Plan of Treatment Not on filedocumented as of this encounter Visit Diagnoses Not on filedocumented in this encounter Care Teams Foxing Cutting Machine Operator Relationship Specialty Start Date End Date Madelin Becerril MD PCP - General 07/17/1996 07/20/00 [address] [address] documented as of this encounter
--- OUTSIDE RECORDS SUMMARY | 2022-05-04 05:37 | XMS_ITS | Encounter Summary ---
:1970 Author Organization [facility] Address [address] [place] [address] Care Team Providers Name Role Phone Madelin Becerril MD Primary Care Provider Encounter Details Date Type Department Care Team Description 09/06/1997 Office Visit Ruddy Kelly MD UNSPECIFIED VIRAL INFECTION [address] [place] [address] (Wo rk) Social History Tobacco [...] of her frequent history of OM. cc: ATIENT CASE MANAGER documented in this encounter Plan of Treatment Not on filedocumented as of this encounter Visit Diagnoses Diagnosis Unspecified viral infection, in conditio ns classified elsewhere and of unspecified site documented in this encounter Care Teams Teleservices Representative Relationship Specialty Start Date End Date Madelin Becerril MD PCP - General 07/17/1996 07/20/00 [address] [place] [address] documented as of this encounter
--- OUTSIDE RECORDS SUMMARY | 2022-05-04 05:37 | XMS_ITS | Encounter Summary ---
:1970 Author Organization [facility] Address [address], [place] [address] Care Team Providers Name Role Phone Britney Jarrett MD Primary Care Provider Encounter Details Date Type Department Care Team Description 12/18/1995 Orders Only Bandar Santamaria MD [address] [place], [place] [address] Social History Tobacco Use [...] documented as of this encounter Care Teams Business Services Sales Agent Relationship Specialty Start Date End Date Britney Jarrett MD PCP - General 04/04/161999 [place] [address] documented as of this encounter
--- OUTSIDE RECORDS SUMMARY | 2022-05-04 05:37 | XMS_ITS | Encounter Summary ---
:1970 Author Organization [facility] Address [address] [place] [address] Care Team Providers Name Role Phone Madelin Becerril MD Primary Care Provider Encounter Details Date Type Department Care Team Description 06/10/1995 Office Visit Madelin Becerril MD Carpal tunnel syndrome [address] [place], [place] [address] (Wo rk) Social History [...] processes. She had FROM at her wrists. Molded Frames Assembler strength was 5/5 with thumb adduction 5/5. [...] Continue with wrist splints. F/u with Dr. Meyer or for injection if desired. cc: documented in this encounter Plan of Treatment Not on filedocumented as of this encounter Visit Diagnoses Diagnosis Carpal tunnel syndrome documented in this encounter Care Teams Shoe Sewing Machine Operator And Tender Relationship Specialty Start Date End Date Madelin Becerril MD PCP - General 07/17/1996 07/20/[address] [place] [address] documented as of this encounter
--- OUTSIDE RECORDS SUMMARY | 2022-05-04 05:38 | XMS_ITS | Encounter Summary ---
:1970 Author Organization [facility] Address [address] [place] [address] Care Team Providers Name Role Phone Madelin [...] normal documented in this encounter Care Teams Wordpress Developer Relationship Specialty Start Date End Date Madelin Becerril MD PCP - General 07/17/1996 07/20/00 [address] [address] documented as of this encounter
--- OUTSIDE RECORDS SUMMARY | 2022-05-04 05:38 | XMS_ITS | Encounter Summary ---
:1970 Author Organization [facility] Address [address] [place] [address] Care Team Providers Name Role Phone Madelin Becerril MD Primary Care Provider Encounter Details Date Type Department Care Team Description 06/04/1995 Office Visit Magan Bell MD VACCINE FOR INFLUENZA [address] [place] [address] (Wo rk) Social History Tobacco Use Types Packs/Day Years Used Date Smoking Tobacco: Never Assessed Sex Assigned at Date Recorded Not on file documented as of this encounter Plan of Treatment Not on filedocumented as of this encounter Visit Diagnoses Diagnosis VACCINE FOR INFLUENZA documented in this encounter Care Teams Door To Door Salesperson Relationship Specialty Start Date End Date Madelin Becerril MD PCP - General 07/17/1996 07/20/[address] [place] [address] documented as of this encounter
--- OUTSIDE RECORDS SUMMARY | 2022-05-04 05:38 | XMS_ITS | Encounter Summary ---
:1970 Author Organization [facility] Address [address] [place] [address] Care Team Providers Name Role Phone Madelin Becerril MD Primary Care Provider Encounter Details Date Type Department Care Team Description 07/22/1994 Office Visit Jose E Baig of skin Practice MD [facility] [address] [place], [place] [id number] Social History Tobacco Use Types Packs/Day Years [...] and numbness. She is not working for [employer] since last February and does 30-60 min. [...] TSH. Routine DT. Neck book. Ibuprofen. cc: OELECTRIC OPERATOR documented in this encounter Plan of Treatment Not on filedocumented as of this encounter Visit Diagnoses Diagnosis Disturbance of skin sensation documented in this encounter Care Teams Director Process Relationship Specialty Start Date End Date Madelin Becerril MD PCP - General 07/17/1996 07/20/00 [address] [place] [address] documented as of this encounter
--- OUTSIDE RECORDS SUMMARY | 2022-05-04 05:38 | XMS_ITS | Encounter Summary ---
:1970 Author Organization [facility] Address [address] [place] [address] Care Team Providers Name Role Phone Madelin Becerril MD Primary Care Provider Encounter Details Date Type Department Care Team Description 05/21/1995 Office Visit Enmanuel Hutchison M D Other general counseling and [address] [place] [address] management [phone] (Wo rk) Social History Tobacco Use Types [...] management documented in this encounter Care Teams Counterintelligence Agent Relationship Specialty Start Date End Date Madelin Becerril MD PCP - General 07/17/1996 07/20/[address] [place] [address] documented as of this encounter
--- OUTSIDE RECORDS SUMMARY | 2022-05-04 05:38 | XMS_ITS | Encounter Summary ---
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 O. Lt. knee is [...] leg documented in this encounter Care Teams Accuracy Expert Relationship Specialty Start Date End Date Madelin Becerril MD PCP - General 07/17/1996 07/20/[address] [place] [address] documented as of this encounter
--- OUTSIDE RECORDS SUMMARY | 2022-05-04 05:38 | XMS_ITS | Encounter Summary ---
:1970 Author Organization [facility] Address [address], [place] [address] Care Team Providers Name Role Phone Britney [...] documented as of this encounter Care Teams Parts Cataloguer Relationship Specialty Start Date End Date Britney aJrrett MD PCP - General 04/04/161999 [place] [address] documented as of this encounter
--- OUTSIDE RECORDS SUMMARY | 2022-05-04 05:38 | XMS_ITS | Encounter Summary ---
:1970 Author Organization [facility] Address [address] [place] [address] Care Team Providers Name Role Phone Madelin Becerril MD Primary Care Provider Encounter Details Date Type Department Care Team Description 05/20/1995 Office Visit Madelin Becerril MD Routine [address] follow-up [place], [place] [address] (Wo rk) Social History [...] degree tear and was sewn up by Ob-Real Estate Lawyer. She denies any problems at this time. [...] follow-up documented in this encounter Care Teams Dynamiter Relationship Specialty Start Date End Date Madelin Becerril MD PCP - General 07/17/1996 07/20/[address] [place] [address] documented as of this encounter
--- OUTSIDE RECORDS SUMMARY | 2022-05-04 05:38 | XMS_ITS | Encounter Summary ---
:1970 Author [facility] Address [address] [place] [address] Care Team Providers Name Role Phone Madelin [...] normal documented in this encounter Care Teams Sql Database Administrator Relationship Specialty Start Date End Date Madelin Becerril MD PCP - General 07/17/1996 07/20/00 [address] [address] documented as of this encounter
--- OUTSIDE RECORDS SUMMARY | 2022-05-04 05:38 | XMS_ITS | Encounter Summary ---
:1970 Author Organization [facility] Address [address] [place] [address] Care Team Providers Name Role Phone Madelin [...] normal documented in this encounter Care Teams Office Admin Relationship Specialty Start Date End Date Madelin Becerril MD PCP - General 07/17/1996 07/20/00 [address] [address] documented as of this encounter
--- OUTSIDE RECORDS SUMMARY | 2022-05-04 05:38 | XMS_ITS | Encounter Summary ---
:1970 Author Organization [facility] Address [address] [place] [address] Care Team Providers Name Role Phone Madelin Becerril MD Primary Care Provider Encounter Details Date Type Department Care Team Description 09/09/1994 Office Visit Thien Covington MD Supervision of other normal [address] [place] [address] (Wo rk) Social History Tobacco Use Types Packs/Day Years Used Date Smoking Tobacco: Never Assessed Sex Assigned at Date Recorded Not on file documented as of this encounter Plan of Treatment Not on filedocumented as of this encounter Visit Diagnoses Diagnosis Supervision of other normal documented in this encounter Care Teams Pathology Manager Relationship Specialty Start Date End Date Madelin Becerril MD PCP - General 07/17/1996 07/20/[address] [place] [address] documented as of this encounter
--- OUTSIDE RECORDS SUMMARY | 2022-05-04 05:38 | XMS_ITS | Encounter Summary ---
:1970 [facility] Address [address] [place] [address] Care Team Providers Name Role Phone Madelin [...] normal documented in this encounter Care Teams Hobber Relationship Specialty Start Date End Date Madelin Becerril MD PCP - General 07/17/1996 07/20/00 [address] [address] documented as of this encounter
--- OUTSIDE RECORDS SUMMARY | 2022-05-04 05:38 | XMS_ITS | Encounter Summary ---
:1970 Author Organization [facility] Address [address] [place] [address] Care Team Providers Name Role Phone Madelin Becerril MD Primary Care Provider Encounter Details Date Type Department Care Team Description 04/04/1995 [place] [address] [place], [place] [phone] (Wo rk) Social History Tobacco Use Types [...] liveborn documented in this encounter Care Teams Metal Patternmaker Relationship Specialty Start Date End Date Madelin Becerril MD PCP - General 07/17/1996 07/20/[address] [place] [address] documented as of this encounter
--- OUTSIDE RECORDS SUMMARY | 2022-05-04 05:38 | XMS_ITS | Encounter Summary ---
:1970 Author Organization [facility] Address [address] [place] [address] Care Team Providers Name Role Phone Madelin Becerril MD Primary Care Provider Encounter Details Date Type Department Care Team Description 12/10/1993 Office Visit Bandar Haider Locali zed superficial swelling, mass, or lump; General symptoms [place] [address] [place], [place] [address] (Wo rk) Social History [...] reveals a 1 cm diameter circular, lightly siu pigmented lesion w/out exudates. Urine test today [...] symptoms documented in this encounter Care Teams Auto Parts Counter Person Relationship Specialty Start Date End Date Madelin Becerril MD PCP - General 07/17/1996 07/20/00 [address] [place] [address] documented as of this encounter
--- OUTSIDE RECORDS SUMMARY | 2022-05-04 05:38 | XMS_ITS | Encounter Summary ---
:1970 [facility] Address [address] [place] [address] Care Team Providers Name Role Phone Madelin [...] normal documented in this encounter Care Teams Global Account Director Relationship Specialty Start Date End Date Madelin Becerril MD PCP - General 07/17/1996 07/20/00 [address] [address] documented as of this encounter
--- OUTSIDE RECORDS SUMMARY | 2022-05-04 05:38 | XMS_ITS | Encounter Summary ---
:1970 [facility] Address [address] [place] [address] Care Team Providers Name Role Phone Madelin Becerril MD Primary Care Provider Encounter Details Date Type Department Care Team Description 04/02/1995 Office Visit Abby Quan MD Supervision of other normal [address] [place] [address] (Wo rk) Social History Tobacco Use Types Packs/Day Years Used Date Smoking Tobacco: Never Assessed Sex Assigned at Date Recorded Not on file documented as of this encounter Plan of Treatment Not on filedocumented as of this encounter Visit Diagnoses Diagnosis Supervision of other normal documented in this encounter Care Teams Kit Planner Relationship Specialty Start Date End Date Madelin Becerril MD PCP - General 07/17/1996 07/20/[address] [place] [address] documented as of this encounter
--- OUTSIDE RECORDS SUMMARY | 2022-05-04 05:38 | XMS_ITS | Encounter Summary ---
:1970 Author Organization [facility] Address [address] [place] [address] Care Team Providers Name Role Phone Madelin [...] normal documented in this encounter Care Teams Battery Inspector Relationship Specialty Start Date End Date Madelin Becerril MD PCP - General 07/17/1996 07/20/00 [address] [address] documented as of this encounter
--- OUTSIDE RECORDS SUMMARY | 2022-05-04 05:38 | XMS_ITS | Encounter Summary ---
:1970 Author Organization [facility] Address [address] [place] [address] Care Team Providers Name Role Phone Madelin [...] normal documented in this encounter Care Teams Hot Air Furnace Installer Repairer Relationship Specialty Start Date End Date Madelin Becerril MD PCP - General 07/17/1996 07/20/00 [address] [address] documented as of this encounter
--- OUTSIDE RECORDS SUMMARY | 2022-05-04 05:38 | XMS_ITS | Encounter Summary ---
:1970 Author Organization [facility] Address [address] [place] [address] Care Team Providers Name Role Phone Madelin [...] normal documented in this encounter Care Teams Order Department Supervisor Relationship Specialty Start Date End Date Madelin Becerril MD PCP - General 07/17/1996 07/20/00 [address] [address] documented as of this encounter
--- OUTSIDE RECORDS SUMMARY | 2022-05-04 05:38 | XMS_ITS | Encounter Summary ---
:1970 Author Organization [facility] Address [address] [place] [address] Care Team Providers Name Role Phone Madelin Becerril MD Primary Care Provider Encounter Details Date Type Department Care Team Description 06/04/1995 Office Visit Harris Jarrett MD Carpal tunnel syndrome [address] [place], [place] [address] (Wo rk) Social History Tobacco Use Types Packs/Day Years Used Date Smoking Tobacco: Never Assessed Sex Assigned at Date Recorded Not on file documented as of this encounter Progress Notes Harris Jarrett MD - 06/04/1995 12:00 AM SUPERVISOR RIPRAP PLACING Josie's in with what I think is [...] do, I don't know who else. cc: RVISOR RIPRAP PLACING documented in this encounter Plan of Treatment Not on filedocumented as of this encounter Visit Diagnoses Diagnosis Carpal tunnel syndrome documented in this encounter Care Teams Yarn Preparation Supervisor Relationship Specialty Start Date End Date Madelin Becerril MD PCP - General 07/17/1996 07/20/00 [address] [place] [address] documented as of this encounter
--- OUTSIDE RECORDS SUMMARY | 2022-05-04 05:38 | XMS_ITS | Encounter Summary ---
:1970 Author Organization [facility] Address [address] [place] [address] Care Team Providers Name Role Phone Madelin [...] normal documented in this encounter Care Teams Director Workers Compensation Relationship Specialty Start Date End Date Madelin Becerril MD PCP - General 07/17/1996 07/20/00 [address] [address] documented as of this encounter
--- OUTSIDE RECORDS SUMMARY | 2022-05-04 05:38 | XMS_ITS | Encounter Summary ---
:1970 Author Organization [facility] Address [address] [place] [address] Care Team Providers Name Role Phone Madelin Becerril MD Primary Care Provider Encounter Details Date Type Department Care Team Description 09/13/[address] [facility] or excessive Practice MARIFER Storey weight gain in [address] , unspecified [place] [phone] as to episode of care [phone] Social History Tobacco Use Types Packs/Day Years [...] gain that results. cc: Cordelia Dorado R.D. T REPRESENTATIVE documented in this encounter Plan of Treatment Not on filedocumented as of this encounter Visit Diagnoses Diagnosis Edema or excessive weight gain in pregna ncy, unspecified as to episode of care documented in this encounter Care Teams Medical Receptionist Relationship Specialty Start Date End Date Madelin Becerril MD PCP - General 07/17/1996 07/20/[address] [place] [address] documented as of this encounter
--- OUTSIDE RECORDS SUMMARY | 2022-05-04 05:38 | XMS_ITS | Encounter Summary ---
:1970 Author Organization [facility] Address [address] [place] [address] Care Team Providers Name Role Phone Madelin [...] normal documented in this encounter Care Teams Coach Cleaner Relationship Specialty Start Date End Date Madelin Becerril MD PCP - General 07/17/1996 07/20/00 [address] [address] documented as of this encounter
--- OUTSIDE RECORDS SUMMARY | 2022-05-04 05:38 | XMS_ITS | Encounter Summary ---
:1970 Author Organization [facility] Address [address] [place] [address] Care Team Providers Name Role Phone Madelin Becerril MD Primary Care Provider Encounter Details Date Type Department Care Team Description 08/12/1994 Office Visit [facility] E [facility] [address] [place], [place] [phone] Social History Tobacco Use Types Packs/Day Years [...] Ob. Return for lst OB exam. cc: MOTIVE DRIVER documented in this encounter Plan of Treatment Not on filedocumented as of this encounter Visit Diagnoses Diagnosis Supervision of other normal documented in this encounter Care Teams Orthopedic Cast Specialist Relationship Specialty Start Date End Date Madelin Becerril MD PCP - General 07/17/1996 07/20/00 [address] [id number] documented as of this encounter
--- OUTSIDE RECORDS SUMMARY | 2022-05-04 05:38 | XMS_ITS | Encounter Summary ---
:1970 Author [facility] Address [address] [address] Care Team Providers Name Role Phone Madelin Becerril MD Primary Care Provider Encounter Details Date Type Department Care Team Description 01/01/1995 Office Visit [place] [facility] Graham Beaulieu ntenatal and Gynecology MD Arabella screening [address] [place] [address] Social History Tobacco Use Types Packs/Day Years Used Date Smoking Tobacco: Never Assessed Sex Assigned at Date Recorded Not on file documented as of this encounter Plan of Treatment Not on filedocumented as of this encounter Visit Diagnoses Diagnosis Other screening Other specified screening documented in this encounter Care Teams Mlt Relationship Specialty Start Date End Date Madelin Becerril MD PCP - General 07/17/1996 07/20/00 [address] [place] [address] documented as of this encounter
--- OUTSIDE RECORDS SUMMARY | 2022-05-04 05:38 | XMS_ITS | Encounter Summary ---
:1970 Author Organization [facility] Address [address] [place] [address] Care Team Providers Name Role Phone Madelin Becerril MD Primary Care Provider Encounter Details Date Type Department Care Team Description 09/17/1994 Office Visit Madelin Becerril MD Counseling; [address] Supervision of other normal [address] [address] (Wo rk) Social History Tobacco Use Types Packs/Day Years Used Date Smoking Tobacco: Never Assessed Sex Assigned at Date Recorded Not on file documented as of this encounter Plan of Treatment Not on filedocumented as of this encounter Visit Diagnoses Diagnosis Counseling Counseling NOS Supervision of other normal documented in this encounter Care Teams Hydro Plant Operator Relationship Specialty Start Date End Date Madelin Becerril MD PCP - General 07/17/1996 07/20/[address] [place] [address] documented as of this encounter
--- OUTSIDE RECORDS SUMMARY | 2022-05-04 05:38 | XMS_ITS | Encounter Summary ---
:1970 Author Organization [facility] Address [address] [place] [address] Care Team Providers Name Role Phone Madelin [...] normal documented in this encounter Care Teams Clinical Rehabilitation Coordinator Relationship Specialty Start Date End Date Madelin Becerril MD PCP - General 07/17/1996 07/20/00 [address] [address] documented as of this encounter
--- OUTSIDE RECORDS SUMMARY | 2022-05-04 05:38 | XMS_ITS | Encounter Summary ---
:1970 [facility] Address [address] [place] [address] Care Team Providers Name Role Phone Madelin [...] normal documented in this encounter Care Teams Primer Supervisor Relationship Specialty Start Date End Date Madelin Becerril MD PCP - General 07/17/1996 07/20/00 [address] [address] documented as of this encounter
--- OUTSIDE RECORDS SUMMARY | 2022-05-04 05:38 | XMS_ITS | Encounter Summary ---
:1970 Author Organization [facility] Address [address] [place] [address] Care Team Providers Name Role Phone Madelin [...] normal documented in this encounter Care Teams Flight Test Shop Mechanic Relationship Specialty Start Date End Date Madelin Becerril MD PCP - General 07/17/1996 07/20/00 [address] [id number] documented as of this encounter
--- OUTSIDE RECORDS SUMMARY | 2022-05-04 05:39 | XMS_ITS | Encounter Summary ---
:1970 Author Organization [facility] Address [address] [place] [address] Care Team Providers Name Role Phone Unavailable Primary Care Provider Unavailable Reason for Visit Outpatient (Routine) - Closed Specialty Diagnoses / Procedures Referred By Contact Refer red To Contact Neurology Diagnoses Mass Axilla Left Pain Back Thoracic Fatigue Primary Osteoarthritis Cervical Spine Cyst Renal Abnormal Magnetic Resonance Imaging Mu Kong D.O. [facility] Procedures Neurology - General neurology eConsult [address] [place] [address] [phone] Referral ID Status Reason Start Date Expiration Date Visits Requ ested Visits Authorized [id number] Closed 12/07/2021 12/07/2022 1 1 Encounter Details Date Type Department Care Team Description 12/11/2021 Internal E-Consult Department of Mu Kong D.O. [address] [place] [address] [phone] Mass Axilla Left; Neurology in Lyndon Camacho M.D., Ph.D. [address] [place] [phone] Pain Back Thoracic; [facility]; [place] Primary Osteoarthritis Cervi roberto Spine; [address] [facility] Cyst Renal; [place], [place] Abnormal Magne tic Resonance Imaging [phone] Social History Tobacco Use Types Packs/Day Years [...] or relatives? How often do you attend presybeterian or jewish More than 4 time s per year 11/30/2021 services? Do you belong to any clubs or organizations Yes 11/30/2021 such as presybeterian groups, unions, fraternal or athletic groups, or [...] have completed or the highest Anika, MEd, AUTOMOTIVE INTERNET SALES CONSULTANT, SINDY) degree you have received? Sex [...] chronic fatigue syndrome. 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
--- OUTSIDE RECORDS SUMMARY | 2022-05-04 05:39 | XMS_ITS | Encounter Summary ---
:1970 Author Organization [facility] Address [address] [place] [address] Care Team Providers Name Role Phone Unavailable Primary Care Provider Unavailable Encounter Details Date Type Department Care Team Description 12/04/2021 Hospital Encounter Department of Lorena, Nakia Johnson lgia; Laboratory Medicine Kathy Mi, M.S . Mass Axilla Left; and Pathology, 200 [facility] Pain Back Thoracic; [facility], in [place], [place] Pain Ba ck; [place], [phone] Screening Osteoporosis; [place] [phone] Gastroesophageal Reflux Dise ase; [address] [facility] (Work) Fatigue [place], [place] [phone] (Fax) [phone] Social History Tobacco Use Types Packs/Day Years [...] How often do you attend sikh or restorationist More than 4 time s per year [...] completed or the highest Anika, MEd, MACHINE LEATHER TRIMMER, SINDY) degree you have received? Sex Assigned [...] Screening section. Osteoporosis Gastroesophageal Reflux Disease Fatigue [place] ORGANIC ACID 1 QUANT 2 Routine 12/04/2021 [...] performa nce characteristics determined by [facility] in a manner consistent with CLIA requirements. This test has not been cleared or approved by the U.S. Aubrey d and Drug Administration. Specimen Anatomical Collection Method Collection Time Receive d Time (Source) Location / / Volume Laterality Blood 12/04/2021 7:27 AM 2 CDT 12:52 PM CDT Mu Kong D.O. LAB BLOOD NON ADD-ON Performing Organization Address City/[facility]/ZIP Code Phon e Number [facility] - [address] [place] [address] 55 [address] [place] [address] [address] tTG (Tissue Transglutaminase), Antibody, IgA (12/04/2021 7:27 AM CDT) Patholo gist Method Time Signature Tissue <1.2 <4.0 12/04/2021 [facility] Transglutaminase Ab, (Negative 4:29 PM CDT IgA, S ) U/mL Specimen Anatomical Collection Method Collection Time Receive d Time (Source) Location / / Volume Laterality Blood 12/04/2021 7:27 AM 2 CDT 11:35 AM CDT Mu Harmon.Silvestre. LAB BLOOD ADD-ON Performing Organization Address City/[facility]/ZIP Code Phon e Number [facility] [address] [place], [place] [address] 05 [facility] [place] [address] Laboratory Medicine and Pathology [address] [...] D.O. LAB BLOOD ADD-ON Performing Organization Address City/[facility]/ZIP Code Phon e Number [facility] - [address] [place], [place] [address] [address] [place] [address] Laboratories-[facility] [address] Rheumatoid Factor (12/04/2021 7:27 AM CDT) athologist Signature Rheumatoid <15 <15 IU/mL 12/04/2021 [facility] Factor, S 11:36 AM CDT Specimen Anatomical Collection Method Collection Time Receive d Time (Source) Location / / Volume Laterality Blood (Blood, 12/04/2021 7:27 AM 12/05/19 Venous) CDT 11:10 AM CDT Mu Kong D.O. LAB BLOOD ADD-ON Performing Organization Address City/[facility]/ZIP Code Phon e Number [facility] [address] [place], [place] [address] SUPPORT CENTER [facility] [place] [address] Laboratory Medicine and Pathology [address] [...] Organization Address City/State/ZIP Code Phon e Number [facility] - 200 [place], [place] [address] [facility] [place] [address] Laboratories-[facility] 200 [facility] Monoclonal Gammopathy Diagnostic (12/04/2021 7:27 AM CDT) [facility] Method Time Signature Therapeutic Unspecified 12/04/2021 [facility] Antibody 10:26 AM Administered? CDT Total Protein, 7.1 6.3 - 7.9 12/04/2021 [facility] S g/dL 11:01 AM CDT [place] Free 1.57 0.3300 - 12/04/2021 [facility] Light Chain, S 1.94 mg/dL 11:58 AM CDT Lambda Free 2.14 0.5700 - 12/04/2021 [facility] Light Chain, S 2.63 mg/dL 11:57 AM CDT [place]/Lambda 0.7336 0.2600 - 12/04/2021 [facility] FLC Ratio [...] AM CDT Isotype M-protein No monoclonal 12/05/2021 [facility] Isotype protein 7:52 AM CDT MALDI-TOF MS detected. Comment: ----ADDITIONAL INFORMATION---- The submitted sample was assayed by five separate immunopurifications for IgG, IgA, IgM, kappa and lambda. ??The r esult reflects the findings of either no monoclonal protein detected or those monoclonal immunoglobulins that were detected. This test was developed and its performa nce characteristics determined by [facility] in a manner consistent with CLIA requirements. This test has not been cleared or approved by the U.S. Aubrey d and Drug Administration. Specimen Anatomical Collection Method Collection Time Receive d Time (Source) Location / / Volume Laterality Blood (Blood, 12/04/2021 7:27 AM 12/05/19 Venous) CDT 10:28 AM CDT Narrative [facility] - 12/05/2021 7:52 AM CDT Specimen Information: Specimen ID: [id number] Specimen Type: Blood Specimen Collection Start Date: 2 ??7:27 AM Specimen Received Date: 12/04/2021 10:28 AM Specimen ID: [id number] Specimen Type: Blood Specimen Collection Start Date: 2 ??7:27 AM Specimen Received Date: 12/04/2021 10:25 AM Mu Kong D.O. LAB BLOOD ADD-ON Performing Organization Address City/State/ZIP Code Phon e Number [facility] [address] [place] [id number] [address] [place] [address] [place] [address] Laboratory Medicine and Pathology [address] [place] [address] Dr. CORREA CRP (C-Reactive Protein) (12/04/2021 7:27 AM CDT) athologist Signature C-Reactive <3.0 <=8.0 mg/L 12/04/2021 [facility] Protein (CRP), 2:09 PM CDT S Specimen Anatomical Collection Method Collection Time Receive d Time (Source) Location / / Volume Laterality Blood (Blood, 12/04/2021 7:27 AM 12/05/19 22 1:16 Venous) CDT PM CDT Mu Kong D.O. LAB BLOOD ADD-ON Performing Organization Address City/[facility]/ZIP [facility] Phon e Number [facility] - 200 [place], [place] [address] [place] [address] [facility] 200 [facility] Cortisol (12/04/2021 7:27 AM CDT) P athologist Signature Cortisol AM 10 7 - 25 12/04/2021 DTL Result mcg/dL 1:06 PM CDT Specimen Anatomical Collection Method Collection Time Receive d Time (Source) Location / / Volume Laterality Blood (Blood, 12/04/2021 7:27 AM 12/05/19 Venous) CDT 12:26 PM CDT Mu Kong D.O. LAB BLOOD ADD-ON Performing Organization Address City/[facility]/ZIP [facility] Phon e Number [facility] - [address] CK (Creatine Kinase) (12/04/2021 7:27 AM CDT) P athologist Signature Creatine Kinase 97 26 - 192 12/04/2021 DTL (CK), S U/L 2:09 PM CDT Specimen Anatomical Collection Method Collection Time Receive d Time (Source) Location / / Volume Laterality Blood (Blood, 12/04/2021 7:27 AM 12/05/19 22 1:16 Venous) CDT PM CDT Mu Kong D.O. LAB BLOOD ADD-ON Performing Organization Address City/[facility] Phon e Number [facility] - 200 [place], [place] [address] [place] [address] Celiac Disease Serology [place] (12/04/2021 7:27 AM CDT) Component Value Ref [...] 22 Venous) CDT 10:25 AM CDT Narrative [facility]PPORT [facility] R - 12/04/2021 10:22 PM CDT Specimen Information: Specimen ID: [id number] Specimen Type: Blood Specimen Collection Start Date: ??7:27 AM Specimen Received Date: 12/04/2021 10:25 AM Specimen ID: [id number] Specimen Type: Blood Specimen Collection Start Date: 2 ??7:27 AM Specimen Received Date: 12/04/2021 10:28 AM Mu Kong D.O. LAB BLOOD ADD-ON Performing Organization Address City/State/ZIP Code Phon e Number [facility] [address] [place] [address] [place] [address] Laboratory Medicine and Pathology [address] [place] (ABNORMAL) CBC with Differential, Blood (12/04/2021 7:27 AM CDT) [facility] Method Time Signature Hemoglobin 15.2 (H) [...] Organization Address City/State/ZIP Code Phon e Number [facility] - [address] [place], [place] [address] [facility] [place] [place] [address] Laboratories-[facility] 200 [facility] Antibody to Extractable Nuclear Antigen Evaluation (12/04/2021 7:27 AM CDT) P athologist Signature SS-A/Ro Ab, <0.2 <1.0 12/04/2021 [facility] IgG, S (Negative) 1:06 PM CDT U SS-B/La Ab, <0.2 <1.0 12/04/2021 [facility] IgG, S (Negative) 1:06 PM CDT U Sm Ab, IgG, S <0.2 <1.0 12/04/2021 [facility] (Negative) 1:05 PM CDT U MERCHANDISE SUPERVISOR Ab, IgG, S 0.4 <1.0 12/04/2021 [facility] [...] Organization Address City/State/ZIP Code Phon e Number [facility] [address] [place], [place] [address] [facility] [place] [address] Laboratory Medicine and Pathology [address] [place] Aldolase (12/04/2021 7:27 AM CDT) athologist Signature Aldolase, S 3.6 <7.7 U/L 12/04/2021 DT 10:11 AM CDT Specimen Anatomical Collection Method Collection Time Receive d Time (Source) Location / / Volume Laterality Blood (Blood, 12/04/2021 7:27 AM 12/05/19 22 9:17 Venous) CDT AM CDT Mu Kong D.O. LAB BLOOD NON ADD-ON Performing Organization Address City/[facility]/ZIP Code Phon e Number [facility] - [address] [place], [place] [address] [place] [address] Laboratories-[facility] 200 [facility] 25-Hydroxyvitamin D2 and D3 (12/04/2021 [...] performa nce characteristics determined by [facility] in a manner consistent with CLIA requirements. This test has not been cleared or approved by the U.S. Aubrey d and Drug Administration. Specimen Anatomical Collection Method Collection Time Receive d Time (Source) Location / / Volume Laterality Blood (Blood, 12/04/2021 7:27 AM 12/05/19 Venous) CDT 10:53 AM CDT Mu Kong D.O. LAB BLOOD ADD-ON Performing Organization Address City/[facility]/ZIP Code Phon e Number [facility] [address] [place], [place] [address] SUPPORT [facility] [place] [address] Laboratory Medicine and Pathology [address] [place] T4 (Thyroxine), Free (12/04/2021 7:27 AM CDT) athologist Signature T4 (Thyroxine), 1.3 0.9 - 1.7 12/04/2021 [facility] Free, S ng/dL 2:09 PM CDT Specimen Anatomical Collection Method Collection Time Receive d Time (Source) Location / / Volume Laterality Blood (Blood, 12/04/2021 7:27 AM 12/05/19 1:16 Venous) CDT PM CDT Mu Kong D.O. LAB BLOOD ADD-ON Performing Organization Address City/[facility]/ZIP Code Phon e Number [facility] - [address] [place], [place] [address] [facility] [place] [place] [address] Laboratories-[facility] [address] Pernicious Anemia [place] (12/04/2021 7:27 AM CDT) athologist Signature Vitamin B12 400 180 - 914 12/04/2021 [facility] Assay, S ng/L 12:52 PM CDT Comment: B-12 <400; MMA test was perform ed. Specimen Anatomical Collection Method Collection Time Receive d Time (Source) Location / / Volume Laterality Blood (Blood, 12/04/2021 7:27 AM 12/05/19 22 Venous) CDT 11:01 AM CDT Mu Kong D.O. LAB BLOOD NON ADD-ON Performing Organization Address City/State/ZIP Code Phon e Number [facility] [address] [place], [place] [address] [facility] [place] [address] Laboratory Medicine and Pathology [address] [place] NT-Pro B-Type Natriuretic Peptide (BNP) (12/04/2021 7:27 AM CDT) [facility] NT-Pro BNP 32 <=155 pg/mL 12/04/2021 DTL [...] D.O. LAB BLOOD ADD-ON Performing Organization Address City/[facility]/ZIP Code Phon e Number [facility] - [address] [place], [place] [address] [place] [id number] [place] [address] Ferritin (12/04/2021 7:27 AM CDT) [facility] Ferritin, S 95 11 - 307 12/04/2021 DTL mcg/L 1:16 PM CDT Specimen Anatomical Collection Method Collection Time Receive d Time (Source) Location / / Volume Laterality Blood (Blood, 12/04/2021 7:27 AM 12/05/19 Venous) CDT 12:26 PM CDT Mu Kong D.O. LAB BLOOD ADD-ON Performing Organization Address City/[facility] Phon e Number [facility] - [address] [place], [place] [address] [facility] [place], [place] [id number] [place] [address] D-Dimer (12/04/2021 7:27 AM [...] D.O. LAB BLOOD ADD-ON Performing Organization Address City/[facility] Phon e Number [facility] - [address] [place], [place] [address] [place] [address] Bilirubin, Direct (12/04/2021 7:27 AM CDT) athologist Signature Bilirubin, <0.2 0.0 - 0.3 12/04/2021 DT Direct, S mg/dL 2:09 PM CDT Specimen Anatomical Collection Method Collection Time Receive d Time (Source) Location / / Volume Laterality Blood (Blood, 12/04/2021 7:27 AM 12/05/19 1:16 Venous) CDT PM CDT Mu Kong D.O. LAB BLOOD ADD-ON Performing Organization Address City/State/[facility] Code Phon e Number [facility] - [address] [place], [place] [address] [place] [address] Dehydroepiandrosterone Sulfate (DHEA-S) (12/04/2021 7:27 AM CDT) Component Value Ref Test Analysis Performed At [facility] gist Range Method Time Signature Dehydroepiandrosterone 34 16 - 195 12/04/2021 [facility] Sulfate, S mcg/dL 11:26 AM CDT Specimen Anatomical Collection Method Collection Time Receive d Time (Source) Location / / Volume Laterality Blood (Blood, 12/04/2021 7:27 AM 05/03/20 22 Venous) CDT 10:34 AM CDT Nakia Carrillo M.D., M.S. LAB BLOOD ADD-ON Performing Organization Address City/[facility]/ZIP Code Phon e Number [facility] [address] [place], [place] [address] SUPPORT [facility] [place] [address] Laboratory Medicine and Pathology [address] [place] [address] Dr. CORREA Connective Tissue Diseases [place] (12/04/2021 7:27 AM CDT) athologist [facility] Antinuclear Ab, 0.3 <=1.0 12/04/2021 [facility] S (Negative) 4:02 PM CDT U Comment: ----ADDITIONAL INFORMATION---- Method: Enzyme-linked immunoassay using HEp-2 nuclear extract supplemented with purified antig ens. Cyclic Citrullinated <15.6 <20.0 (Negative) U 12/04/2021 5:11 PM [facility] Peptide Ab, S CDT Interpretation SEE COMMENT 12/04/2021 5:11 PM [facility] CDT Comment: Tests for antibodies to dsDNA and RAMÓN an tigens are not performed automatically unless the MARIUM r esult is > or = 3.0 U. ??Studies performed at [facility] indicate that positive MARIUM results <3.0 U are rarely a ccompanied by positive second order tests. Specimen Anatomical Collection Method Collection Time Receive d Time (Source) Location / / Volume Laterality Blood (Blood, 12/04/2021 7:27 AM 12/05/19 Venous) CDT 10:25 AM CDT Nakia Carrillo M.D., M.S. LAB BLOOD ADD-ON Performing Organization Address City/[facility]/ZIP Code Phon e Number [facility] [address] [place], [place] [address] [facility] [place] [address] Laboratory Medicine and Pathology [address] [place] [address] Dr. CORREA (ABNORMAL) Lipid Panel (12/04/2021 7:26 AM CDT) athologist [facility] Cholesterol, 269 (H) mg/dL 12/04/2021 DTL Total [...] 12/05/19 1:13 Venous) CDT PM CDT Mu oKng D.O. LAB BLOOD ADD-ON Performing Organization Address City/State/ZIP Code Phon e Number [facility] - 200 [place], [place] [address] [facility] [place] [address] Laboratories-[facility] 200 [facility] (ABNORMAL) Comprehensive Metabolic Panel (12/04/2021 [...] 12/04/2021 DTL Black/ mL/min/BSA 3:38 PM CDT Somali Comment: ----ADDITIONAL INFORMATION---- Estimated GFR calculated using [...] Organization Address City/State/ZIP Code Phon e Number [facility] - [address] [place], [place] [address] [place] [address] [place] [address] [facility] 200 [facility] Iron and Total Iron-Binding Capacity [...] D.O. LAB BLOOD ADD-ON Performing Organization Address City/[facility] Code Phon e Number [facility] - [id number] [place] [address] Thyroid Function [place] (12/04/2021 7:26 AM CDT) athologist Signature TSH, Sensitive 1.6 0.3 - 4.2 12/04/2021 DTL mIU/L 3:28 PM CDT Specimen Anatomical Collection Method Collection Time Receive d Time (Source) Location / / Volume Laterality Blood (Blood, 12/04/2021 7:26 AM 12/05/19 22 1:13 Venous) CDT PM CDT Nakia Carrillo M.D., M.S. LAB BLOOD ADD-ON Performing Organization Address City/State/ZIP Code Phon e Number [facility] - 200 [place], [place] [address] 05 [place], [place] [phone] [place] [address] documented in this encounter Visit Diagnoses Diagnosis Fibromyalgia Mass Axilla Left Pain Back Thoracic Pain Back Screening Osteoporosis Gastroesophageal Reflux Disease Fatigue documented in this encounter
--- OUTSIDE RECORDS SUMMARY | 2022-05-04 05:39 | XMS_ITS | Clinical Summary ---
:1970 Author Organization [facility] Address [address] [place] [address] Care Team Providers Name Role Phone Unavailable Primary Care Provider Unavailable Source Comments Patient records contain information from all sites at [facility]. For routine questions regarding patient records, call [phone] during business hours, M-F 8:00 AM - 5:00 PM Central Time. Record requests for emergency care only can be directed to [phone] at any time.[facility] Allergies Active Allergy Reactions Severity Noted [...] Added automatically from request for mckenna bonilla [phone] Stenosis Spinal 04/21/2019 Overview: Added automatically from request for mckenna bonilla [phone] Encounters Date Type Specialty Care Team Description 03/14/2022 Ancillary Procedure Radiology Saadiq, Abnormal Findings On Rayya A, Diagnostic Imag ing Of D.O. Other Parts Of Musculoskeletal System 02/01/2022 Clinical [facility], [facility] Yung Kraft R.N. from Last 3 Months Immunizations Name Administration [...] Marianne Booker Type 1 Diabetes Father Yovani Rizvisusan Type 2 Stroke Father Yovani Alejodidi 81 years old Arthritis Mother Jenniffer Alejoiller Breast cancer Mother Jenniffer Schiller Osteoporosis Mother Jenniffer Martinez Leukemia Paternal Grandmother Jolly Martinez Other cancer Sister Alondra Baocn Uterine cancer- 55 years old Relation Name [...] or relatives? How often do you attend jehovah's witness or scientologist More than 4 time s per year 11/30/2021 services? Do you belong to any clubs or organizations Yes 11/30/2021 such as jehovah's witness groups, unions, fraternal or athletic groups, or [...] slept in a skilled nursing (including now)? Education Answer Date Recorded What is the highest level of school Master's degree (e.g., M A, MS, 08/08/2019 you have completed or the highest Anika, MEd, MEDIA CONSULTANT OUTSIDE SALES, SINDY) degree you have received? Sex Assigned at Date Recorded Female 03/04/2018 7:21 PM CDT Last Filed Vital Signs Vital Sign Reading Time Taken Comments Blood Pressure 116/77 12/03/2021 7:48 AM CDT Pulse 81 12/03/2021 7:48 AM CDT Temperature 37 ??C (98.6 ??F) 08/14/2019 12:30 PM THREAD WINDER [employer]OMATIC Respiratory Rate 17 08/14/2019 12:30 PM THREAD WINDER [employer] Oxygen Saturation 98% 08/14/2019 12:34 PM THREAD WINDER [employer] Inhaled Oxygen Concentration - - Weight 67.8 [...] this topic Medical Devices Implanted Type Area Senior Android Software Engineer Device Shelf Model / Serial Identifier Expiration / Lot Date Allogenic, Femoral Head - [id number] - [id number] Bone or Posterior [facility] - 07/08/2021 [id number] / Implanted: Qty: 1 on 08/12/2019 by Steve Farias M.D. at [facility] Tissue : Spine Episcopal [id number] / Lumbar [place] [id number] Breast Implant-08/04/2009 Breast Bilateral Implanted: 08/04/2009 (Quantity not on file) Implant : Breast Hardware E.G. Pins/Screws/Rods-08/04/2008 Hardware Neck Implanted: 08/04/2008 (Quantity not on file) e.g. pins/screws /rods Description: C6-C7 part of fusion Spn Noble Exp Pr Ld 6.35x65 - Sna - [id number] Hardware e.g. Posterior: Spine Depuy [id number] / Implanted: Qty: 1 on 08/12/2019 by Steve Farias M.D. at [facility] pins/screws/rods Lumbar Synthes NA / NA Procedures [...] Nothing for demyelinating disease. Mu Kong D.O. IMG MRI PROCEDURES from Last 3 Months Insurance Payer Benefit Plan Subscriber ID Effective Dates Phone Address Type / Group [facility] [id number] [facility] [phone] [facility] [address] [place] [address] Advance Directives For more information, please contact: [phone] Latest Code Status on File Code Status Date Activated Date Inactivated Comments Full Code 08/12/2019 1:44 PM 08/14/2019 3:15 PM Full Code: Discussed
--- OUTSIDE RECORDS SUMMARY | 2022-05-04 05:39 | XMS_ITS | Encounter Summary ---
:1970 Author Organization [facility] Address [address] [place] [address] Care Team Providers Name Role Phone Unavailable Primary Care Provider Unavailable Encounter Details Date Type Department Care Team Description 12/03/2021 Diagnostic Division of Pulmonary Nakia Carrillo M.D ., Fibromyalgia Medicine in [facility] [address] [facility] [address] [place] [phone] (Wo rk) Social History Tobacco Use Types [...] How often do you attend islam or nondenominational More than 4 time s per year [...] have completed or the highest Anika, MEd, RESEARCH GENETICIST, SINDY) degree you have received? Sex Assigned [...] Organization Address City/State/ZIP Code Phon e Number [facility] documented in this encounter Visit Diagnoses Diagnosis Fibromyalgia documented in this encounter
--- OUTSIDE RECORDS SUMMARY | 2022-05-04 05:39 | XMS_ITS | Encounter Summary ---
:1970 Author Organization [facility] Address [address] [place] [address] Care Team Providers Name Role Phone Unavailable Primary Care Provider Unavailable Encounter Details Date Type Department Care Team Description 12/07/2021 Ancillary Department of Saadiq, Rayya Mass Axilla L eft; Procedure Radiology in A, D.O. Pain Back Thoracic; [place] [address] [address] [facility]; [place], [place] Primary Osteoarthritis Cervi roberto Spine [address] [facility] [address] [place], [place] [phone] (Work) Social History Tobacco Use Types Packs/Day [...] How often do you attend anabaptist or zoroastrian More than 4 time s [...] place to sleep or slept in a correction (including now)? Education Answer Date Recorded What is the highest level of school Master's degree (e.g., M A, MS, 08/08/2019 you have completed or the highest Anika, MEd, SOFTWARE BUSINESS ANALYST, ISNDY) degree you have received? Sex Assigned at [...]
--- OUTSIDE RECORDS SUMMARY | 2022-05-04 05:39 | XMS_ITS | Encounter Summary ---
:1970 Author Organization [facility] Address [address] [place] [address] Care Team Providers Name Role Phone Madelin Becerril MD Primary Care Provider Encounter Details Date Type Department Care Team Description 08/07/1993 Office Visit Radha Degroot AP RN, INSPECTION MACHINE TENDER Gynecological examination [address] [place], [place] [address] (Wo rk) Social History Tobacco Use Types Packs/Day Years Used Date Smoking Tobacco: Never Assessed Sex Assigned at Date Recorded Not on file documented as of this encounter Plan of Treatment Not on filedocumented as of this encounter Visit Diagnoses Diagnosis Gynecological examination documented in this encounter Care Teams Green Material Value Added Assessor Relationship Specialty Start Date End Date Madelin Becerril MD PCP - General 07/17/1996 07/20/[address] [place] [address] documented as of this encounter
--- OUTSIDE RECORDS SUMMARY | 2022-05-04 05:39 | XMS_ITS | Encounter Summary ---
:1970 Author Organization [facility] Address [address] [place] [address] Care Team Providers Name Role Phone Unavailable Primary Care Provider Unavailable Reason for Visit Reason Comments Fibromyalgia Encounter Details Date Type Department Care Team Description 01/07/2022 Education Integrative Medicine and Yung Botello, Fibromyalgia Health in [facility] [address] [facility] [address] [place] [phone] Social History Tobacco Use Types Packs/Day Years [...] How often do you attend druze or evangelical More than 4 time s [...] have completed or the highest Anika, MEd, REVIEW MANAGER, SINDY) degree you have received? Sex [...] Botello R.N. and Jagruti Guaman R.N. in [facility] to the patient in their [...] materials were provided: Fibromyalgia: road to wellness (BH6037-624), Chronic Fatigue: Road to Wellness (YQ7840 - 200), stretches and exercise guidelines to help with chronic painor fatigue (DU6430 kyk7785), Finding Reliable Health Information on the Internet (LQ6192), Time Management (FW9804), Time Management worksheet (AQD2297-60SM), Energy-saving Techniques (EX6791-30), Relaxation Skills to Relieve your Symptoms ([id number]), Exercise; Getting Started (AF9308-77naq3525),, Eat Well: Use the Plate Method (KW8608), How to get the Healthy sleep you need (XV0401-82moy4900),Gentle Yoga ([id number]), It's Your Life; Take Charge (QQ8957-61), My Personal Plan (TB9319-75) and Understanding Central Sensitization (TO3309-49) were also provided. ASSESSMENT / PLAN Patient [...]
--- OUTSIDE RECORDS SUMMARY | 2022-05-04 05:39 | XMS_ITS | Encounter Summary ---
:1970 Author Organization [facility] Address [address] [place] [address] Care Team Providers Name Role Phone Unavailable Primary Care Provider Unavailable Reason for Visit Reason Comments Review OSM Encounter Details Date Type Department Care Team Description 12/05/2021 Clinical Communication Division of General Farooq Kong, Review [facility] Internal Medicine in [place], [place] [address] [facility] [address] [place] [phone] Social History Tobacco Use Types Packs/Day Years [...] How often do you attend yarsanism or christianity More than 4 time s per year [...] have completed or the highest Anika, MEd, DIVER TENDER, SINDY) degree you have received? Sex Assigned at Date Recorded Female 03/04/2018 7:21 PM CDT documented as of this encounter Miscellaneous Notes Telephone Encounter - Mercy Combs - 12/05/2021 4:42 PM CDT Received OSM from [facility] [employer]. This has been scanned into the Patient's Chart in Infectious. RTN Appt: 12/07 Dr. Kong documented in this encounter Plan of Treatment Not on filedocumented as of this encounter Visit Diagnoses Not on filedocumented in this encounter
--- OUTSIDE RECORDS SUMMARY | 2022-05-04 05:39 | XMS_ITS | Encounter Summary ---
:1970 Author Organization [facility] Address [address] [place] [address] Care Team Providers Name Role Phone Unavailable Primary Care Provider Unavailable Reason for Referral Specialty Diagnoses / Procedures Referred By Contact Refer red To Contact RST Darvin [facility] [address] [place] [phone] Referral ID Status Reason Start Date Expiration Date Visits Requ ested Visits Authorized Encounter Details Date Type Department Care Team Description 01/31/2022 Education Integrative Medicine and Hanh Garcia F ibromyalgia (Primary Health in [facility]) [place] [address] [facility] [address] [place] [phone] Social History Tobacco Use Types Packs/Day Years [...] often do you attend jehovah's witness or zoroastrian More than 4 time s [...] have completed or the highest Anika, MEd, COMMERCIAL DRIVER'S LICENSE DRIVER, SINDY) degree you have received? Sex Assigned [...] and Brittanie Do; Healthy Living Program in [facility] to the patient in their home OBJECTIVE [...]
--- OUTSIDE RECORDS SUMMARY | 2022-05-04 05:39 | XMS_ITS | Encounter Summary ---
:1970 Author Organization [facility] Address [address] [place] [address] Care Team Providers Name Role Phone Unavailable Primary Care Provider Unavailable Reason for Visit Behavioral Health (Routine) - Closed Specialty Diagnoses / Procedures Referred By Contact Refer red To Contact Diagnoses Fibromyalgia Lamine Salvador M.D. [facility] Procedures OT Evaluate and treat - Mental health [address] [place] [phone] Referral ID Status Reason Start Date Expiration Date Visits Requ ested Visits Authorized [id number] Closed 12/18/2021 12/18/2022 1 1 Encounter Details Date Type Department Care Team Description 12/19/2021 Comprehensive Visit Department of Physical Sunds Lamine falcon M.D. [address] [place] [phone] Decline Functional Status (Primary Dx); Medicine and Domonique Park M.S., O.T. [address] [place] [phone] Fibromyalgia Rehabilitation in [place], [place] [address] [place] [phone] Social History Tobacco Use Types Packs/Day Years [...] or relatives? How often do you attend latter-day or advent More than 4 time s per year 11/30/2021 services? Do you belong to any clubs or organizations Yes 11/30/2021 such as latter-day groups, unions, fraternal or athletic groups, or [...] have completed or the highest Anika, MEd, BARGE MASTER, SINDY) degree you have received? Sex Assigned [...] evaluation and treatment- Biofeedback assisted relaxation Payor: [employer] / Plan: [employer] [place] / Product Type: [...] breathing exercises. 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 Due to [...]
--- OUTSIDE RECORDS SUMMARY | 2022-05-04 05:39 | XMS_ITS | Encounter Summary ---
:1970 Author Organization [facility] Address [address] [place] [address] Care Team Providers Name Role Phone Unavailable Primary Care Provider Unavailable Encounter Details Date Type Department Care Team Description 02/01/2022 Clinical Communication Integrative Medicine Yung Botello and Health in E, R.N. [place], [place] [address] [facility] [address] [place] [phone] Social History Tobacco Use Types Packs/Day Years [...] How often do you attend moravian or muslim More than 4 time s per year [...] have completed or the highest Anika, MEd, BOOM STICK WORKER, SINDY) degree you have received? Sex Assigned [...]
--- OUTSIDE RECORDS SUMMARY | 2022-05-04 05:39 | XMS_ITS | Encounter Summary ---
:1970 Author Organization [facility] Address [address] [place] [address] Care Team Providers Name Role Phone Steve Alston MD Primary Care Provider Encounter Details Date Type Department Care Team Description 08/04/1989 PN Conversion Only SECURITY PUBLIC SAFETY OFFICER [address] [facility] Steve Alston MD [address] [facility] [address] [address] [place] [address] (Wo rk) Social History Tobacco Use Types Packs/Day Years Used Date Smoking Tobacco: Never Assessed Sex Assigned at Date Recorded Not on file documented as of this encounter Plan of Treatment Not on filedocumented as of this encounter Visit Diagnoses Not on filedocumented in this encounter Care Teams Manager Human Capital Relationship Specialty Start Date End Date Steve Alston MD PCP - General 11/05/10 04/14/13 [address] [facility] [address] [place] [address] documented as of this encounter
--- OUTSIDE RECORDS SUMMARY | 2022-05-04 05:39 | XMS_ITS | Encounter Summary ---
:1970 Author Organization [facility] Address [address] [place] [address] Care Team Providers Name Role Phone Unavailable Primary Care Provider Unavailable Encounter Details Date Type Department Care Team Description 12/04/2021 Hospital Encounter Department of Saadiq, Rayya Mass Ax illa Left; Laboratory Medicine A, D.O. Fibromyalgia; and Pathology, [address] [facility] Pain Back Thoracic; [facility], in [place], [place] Pain Ba ck; [place], [phone] Screening Osteoporosis; [place] [phone] Gastroesophageal Reflux Dise ase; [address] [facility] (Work) Fatigue [place], [place] [phone] (Fax) [phone] Social History Tobacco Use Types Packs/Day Years [...] How often do you attend christian or restorationism More than 4 time s [...] have completed or the highest Anika, MEd, BARBER SHOP OPERATOR, SINDY) degree you have received? Sex [...] Results Dipstick, Urine (12/04/2021 7:35 AM CDT) [facility] gist Method Time Signature Hemoglobin, Negative [...] D.O. LAB URINE ORDERABLES Performing Organization Address City/[facility]/ZIP [facility] Phon e Number ED [facility] - [address] [place] [address] [address] [facility] Osmolality, Urine (12/04/2021 7:35 AM CDT) athologist [facility] Osmolality, U 194 150 - 1150 12/04/2021 DTL mOsm/kg 9:09 AM CDT Specimen Anatomical Collection Method Collection Time Receive d Time (Source) Location / / Volume Laterality Urine 12/04/2021 7:35 AM 2 8:20 CDT AM CDT Mu Kong D.O. LAB URINE ORDERABLES Performing Organization Address City/[facility]/ZIP [facility] Phon e Number ED [facility] - [address] [place] [address] [address] [facility] pH, Urine (12/04/2021 7:35 AM CDT) athologist Signature pH, U 5.5 4.5 - 8.0 12/04/2021 9:09 DTL AM CDT Specimen Anatomical Collection Method Collection Time Receive d Time (Source) Location / / Volume Laterality Urine 12/04/2021 7:35 AM 2 8:20 CDT AM CDT Mu Kong D.O. LAB URINE ORDERABLES Performing Organization Address [facility] Phon e Number ED [facility] - 200 [place], [place] [address] [facility] [place] [address] Microscopic Automated (12/04/2021 7:35 AM CDT) P athologist Signature Microscopy Normal 12/04/2021 DTL 8:58 AM CDT Squamous 1-3 /hpf 12/04/2021 DTL Epithelial 8:58 AM CDT Cells, U Specimen Anatomical Collection Method Collection Time Receive d Time (Source) Location / / Volume Laterality Urine 12/04/2021 7:35 AM 2 8:20 CDT AM CDT Mu Kong D.O. LAB URINE ORDERABLES Performing Organization Address [facility] Phon e Number ED [facility] - [address] [place] [address] [place] [address] Urinalysis with Microscopic: Urine, Midstream (12/04/2021 [...] Organization Address City/State/ZIP Code Phon e Number ED [facility] - [address] [place], [place] [address] [facility] [place] [place] [address] Laboratories-[facility] [address] documented in this encounter Visit Diagnoses Diagnosis Mass Axilla Left Fibromyalgia Pain Back Thoracic Pain Back Screening Osteoporosis Gastroesophageal Reflux Disease Fatigue documented in this encounter
--- OUTSIDE RECORDS SUMMARY | 2022-05-04 05:39 | XMS_ITS | Encounter Summary ---
:1970 Author Organization [facility] Address [address] [place] [address] Care Team Providers Name Role Phone Unavailable Primary Care Provider Unavailable Reason for Visit Reason Comments Fibromyalgia Outpatient (Routine) - Closed Specialty Diagnoses / Procedures Referred By Contact Refer red To Contact Integrative Medicine Diagnoses Fibromyalgia Nakia Carrillo M.D., [facility] M.S. [address] [place] [phone] Referral ID Status Reason Start Date Expiration Date Visits Requ ested Visits Authorized [id number] Closed 11/30/2021 11/30/2022 1 1 Encounter Details Date Type Department Care Team Description 12/18/2021 Nurse Only Integrative Medicine and Nakia Carrillo M.D., M.S. [address] [place] [phone] Fibromyalgia Health in [place], Manuel Finch, REarlN. [place] [address] [place] [phone] Social History Tobacco Use Types Packs/Day [...] How often do you attend christian or anabaptist More than 4 time s [...] have completed or the highest Anika, MEd, HIGH RIGGER, SINDY) degree you have received? 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 [...] syndrome. sister. OBJECTIVE PHYSICAL EXAM Refer to [facility] for mood assessment. The patient has the [...]
--- OUTSIDE RECORDS SUMMARY | 2022-05-04 05:39 | XMS_ITS | Encounter Summary ---
:1970 Author Organization [facility] Address [address] [place] [address] Care Team Providers Name Role Phone Unavailable Primary Care Provider Unavailable Encounter Details Date Type Department Care Team Description 03/14/2022 Ancillary Department of Mu Kong Abnormal Find ings On Procedure Radiology in A, D.O. Diagnostic Imaging Of [address] Other Parts [place], [place] Musculoskeletal System [address] [place] [phone] [place], [place] [phone] (Work) Social History Tobacco Use Types Packs/Day [...] How often do you attend jainism or pentecostalism More than 4 time s per year [...] have completed or the highest Anika, MEd, COASTAL TUG MATE, SINDY) degree you have received? Sex Assigned [...]
--- OUTSIDE RECORDS SUMMARY | 2022-05-04 05:39 | XMS_ITS | Encounter Summary ---
:1970 Author Organization [facility] Address [address] [place] [address] Care Team Providers Name Role Phone Unavailable Primary Care Provider Unavailable Encounter Details Date Type Department Care Team Description 12/07/2021 Ancillary Department of Saadiq, Rayya Mass Axilla L eft; Procedure Radiology in A, D.O. Pain Back Thoracic; [place] [address] [address] [facility]; [place], [place] Primary Osteoarthritis Cervi roberto Spine [address] [facility] [address] [place], [place] [phone] (Work) Social History Tobacco Use Types Packs/Day [...] or relatives? How often do you attend baptism or spiritism More than 4 time s per year 11/30/2021 services? Do you belong to any clubs or organizations Yes 11/30/2021 such as baptism groups, unions, fraternal or athletic groups, or [...] have completed or the highest Anika, MEd, PROGRAM AIDE, SINDY) degree you have received? Sex Assigned [...]
--- OUTSIDE RECORDS SUMMARY | 2022-05-04 05:39 | XMS_ITS | Encounter Summary ---
:1970 Author Organization [facility] Address [address] [place] [address] Care Team Providers Name Role Phone Unavailable Primary Care Provider Unavailable Reason for Visit Reason Comments Fibromyalgia Outpatient (Routine) - Closed Specialty Diagnoses / Procedures Referred By Contact Refer red To Contact Integrative Medicine Diagnoses Fibromyalgia [facility]., [facility] [address] [place] [phone] Referral ID Status Reason Start Date Expiration Date Visits Requ ested Visits Authorized [id number] Closed 11/30/2021 11/30/2022 1 1 Encounter Details Date Type Department Care Team Description 12/18/2021 Education Integrative Medicine and Nakia Carrillo M.D., M.S. [address] [place] [phone] [facility] in [facility] Manuel Finch, REarlNEarl [place] [address] [place] [address] [phone] Social History Tobacco Use Types Packs/Day [...] How often do you attend denominational or quaker More than 4 time s [...] have completed or the highest Anika, MEd, SUPERVISORY IT SPECIALIST, SINDY) degree you have received? Sex [...] provider visit Materials given: Managing your Fibromyalgia ([id number]) and Fibromyalgia folder including Fibromyalgia and Chronic Fatigue Suggested Resources, Vitamin D and Chronic Pain, Self-Management Tools, Time Management Worksheets (WI7409-13 and IU1607-23), Finding Reliable Health Information on the Internet ([id number]), Eat Well: Use the Plate Method ([id number]), How to get the Healthy sleep you need ([id number]), Managing Your Time for a Balanced Life ([id number]), suggested resources and business card, Gentle Yoga ([id number]), Exercise: Getting Started and Staying with it (QA9288- 92twg4282), It's Your Life... Take Charge (CR7222-13), Strength Training for Adults ([id number]), Stretches and Exercise Guidelines to Help with Chronic Pain or Fatigue ([id number]), Techniques to Help You Save Energy (BD9624- 34wfd2273), Using Relaxation Skills to Relieve Your Symptoms([id number]) For additional educational material please cut and paste to your browser search, the following the link below to be directed to digital education videos related to Fibromyalgia, Chronic Fatigue, and Central Sensitization provided by [facility]: [email or web address] All questions and concerns were addressed. [...]
--- OUTSIDE RECORDS SUMMARY | 2022-05-04 05:39 | XMS_ITS | Encounter Summary ---
:1970 Author Organization [facility] Address [address] [place] [address] Care Team Providers Name Role Phone Unavailable Primary Care Provider Unavailable Reason for Referral Outpatient (Routine) - Closed Specialty Diagnoses / Procedures Referred By Contact Refer red To Contact Diagnoses Mass Axilla Left Mu Kong [facility] Procedures US Axilla Non Breast Left [address] [place] [phone] Referral ID Status Reason Start Date Expiration Date Visits Requ ested Visits Authorized [id number] Closed 12/03/2021 12/03/2022 1 1 Reason for Visit Outpatient (Routine) - Closed Specialty Diagnoses / Procedures Referred By Contact Refer red To Contact Diagnoses Mass Axilla Left Mu Kong [facility] Procedures US Axilla Non Breast Left [address] [place] [phone] Referral ID Status Reason Start Date Expiration Date Visits Requ ested Visits Authorized [id number] Closed 12/03/2021 12/03/2022 1 1 Encounter Details Date Type Department Care Team Description 12/04/2021 Hospital Encounter Department of Mu Kong Mass Axilla Left Radiology, [facility] Building, in [address] [place], [place] [address] [place] [phone] [place], [place] [phone] (Work) [phone] Social History Tobacco Use Types Packs/Day Years [...] or relatives? How often do you attend religion or buddhist More than 4 time s per year 11/30/2021 services? Do you belong to any clubs or organizations Yes 11/30/2021 such as religion groups, unions, fraternal or athletic groups, or [...] have completed or the highest Anika, MEd, BAR USEFUL OR BUSSER, SINDY) degree you have received? Sex Assigned [...] mass or fluid collection in the region. uM DONOHUE US PROCEDURES documented in this encounter Visit Diagnoses Diagnosis Mass Axilla Left documented in this encounter
--- OUTSIDE RECORDS SUMMARY | 2022-05-04 05:39 | XMS_ITS | Encounter Summary ---
:1970 Author Organization [facility] Address [address] [place] [address] Care Team Providers Name Role Phone Unavailable Primary Care Provider Unavailable Encounter Details Date Type Department Care Team Description 12/10/2021 Orders Only Department of Vascular Patty Kong D.O. Medicine in [place], [facility] [address] [place], [place] [address] [facility] [address] [place] [phone] Social History Tobacco Use Types Packs/Day Years [...] How often do you attend mu-ism or hindu More than 4 time s [...] have completed or the highest Anika, MEd, CHAIR FINISHER, SINDY) degree you have received? Sex Assigned at Date Recorded Female 03/04/2018 7:21 PM CDT documented as of this encounter Plan of Treatment Not on filedocumented as of this encounter Visit Diagnoses Not on filedocumented in this encounter
--- OUTSIDE RECORDS SUMMARY | 2022-05-04 05:39 | XMS_ITS | Encounter Summary ---
:1970 Author Organization [facility] Address [address] [place] [address] Care Team Providers Name Role Phone Unavailable Primary Care Provider Unavailable Encounter Details Date Type Department Care Team Description 12/07/2021 Ancillary Department of Saadiq, Rayya Mass Axilla L eft; Procedure Radiology in A, D.O. Pain Back Thoracic; [place], [address] [place] [address] Fatigue; [place], [place] Primary Osteoarthritis Cervi roberto Spine; [address] [place] [address] Cyst Renal [place], [place] [phone] (Work) Social History Tobacco Use Types Packs/Day [...] How often do you attend religious or latter day More than 4 time s per year [...] have completed or the highest Anika, MEd, GENERAL FARMER, SINDY) degree you have received? Sex Assigned [...] cystic renal lesion considered les s likely. uM DONOHUE US PROCEDURES documented in this encounter Visit Diagnoses Diagnosis Mass Axilla Left Pain Back Thoracic Fatigue Primary Osteoarthritis Cervical Spine Cyst Renal documented in this encounter
--- OUTSIDE RECORDS SUMMARY | 2022-05-04 05:39 | XMS_ITS | Encounter Summary ---
:1970 Author Organization [facility] Address [address] [place] [address] Care Team Providers Name Role Phone Unavailable Primary Care Provider Unavailable Reason for Referral Behavioral Health (Routine) - Closed Specialty Diagnoses / Procedures Referred By Contact Refer red To Contact Diagnoses Fibromyalgia Lamine Salvador M.D. [facility] Procedures OT Evaluate and treat - Mental health [address] [place], [place] [phone] Referral ID Status Reason Start Date Expiration Date Visits Requ ested Visits Authorized [id number] Closed 12/18/2021 12/18/2022 1 1 Reason for Visit Outpatient (Routine) - Closed Specialty Diagnoses / Procedures Referred By Contact Refer red To Contact Integrative Medicine Diagnoses Fibromyalgia Nakia Carrillo M.D., [facility] [address] [place] [address] Referral ID Status Reason Start Date Expiration Date Visits Requ ested Visits Authorized [id number] Closed 11/30/2021 11/30/2022 1 1 Encounter Details Date Type Department Care Team Description 12/18/2021 Comprehensive Visit Integrative Medicine [place], Fibromyalgia and Health in Lamine Vines M.D. (Primary Dx) [place], [place] [address] [facility] [address] [place] [phone] Social History Tobacco Use Types Packs/Day Years [...] or relatives? How often do you attend faith or buddhism More than 4 time s per year 11/30/2021 services? Do you belong to any clubs or organizations Yes 11/30/2021 such as faith groups, unions, fraternal or athletic groups, or [...] have completed or the highest Anika, MEd, UNIFORM DESIGNER, SINDY) degree you have received? 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 Multiple nonpharmacologic therapies including mall plant caretaker, physical therapy, injections, stretching of the CBD [...] Patient meets both the 1990 and 2016 [place] [employer] diagnostic criteria for fibromyalgia. She additionally has multiple features of chronic fatigue syndrome, however no brain fog or orthostasis, therefore she does not fully meet the 2015 [place] of [employer] criteria for syndromic fatigue. 2. [...] patients. Several mediation apps are available on [employer] and the [employer]. She should perform this 10- 15 minutes twice daily for a couple of months and then assess its utility. Utilizing calming visualizations,such as nature scenes, can enhance the effect of the paced-breathing exercises (QuantiSenseube search: meditation and nature). Mind/body therapies, such [...] ready to sleep. ?? Meditation/Relaxation techniques : [email or web address].cfm?id=[email or web address] ?? Consider looking into the SHUTi online program for behavioral management of insomnia. It instructs in sleep hygiene, relaxation techniques, cognitive and stimulus control strategies to enhance sleep. She will also be invited to submit electronic sleep logs, and receive individualized feedback andsuggestions as to how to improve rest. ?? Consider Dr. Farhad Webb's 4-7-8 breathing technique for sleep (https://www.youtube.com/watch?v=[email or web address]). Insomnia unresponsive to the above may require [...] at 20 mg daily, increase over several ciqiv-qv-epnitk to 60 mg ?? Maximum dose: 60 mg daily Milnacipran (SNRI): Best for pain + mood symptoms. ?? Start at 6.25-12.5 mg daily, increase over several gduts-dg-mzjqri 25-50 mg ?? Maximum dose: 100 mg twice daily Pregabalin (Cxemw-4-ngnxw calcium channel ligand): Best for pain + sleep + paresthesia symptoms. ?? Start at 25 mg daily, increase over several azrku-jy-oeanfb to 50-75 mg ?? Maximum dose: 225 mg twice daily Non-FDA approved: Gabapentin: Best for pain + sleep + paresthesia symptoms. ?? Start at 100-300 mg nightly, increase over several gpzig-ro-pzloue to 600 mg ?? If efficacious, a morning or afternoon dose can be started with gradual uptitration ?? Maximum dose: 2400 mg total per day Amitriptyline or Nortriptyline: Best for pain + sleep + paresthesia symptoms. ?? Start at 10 mg nightly, and increase over several hsxzr-eq-tnbtdn to 50 mg ?? Maximum dose: 75 [...]
--- OUTSIDE RECORDS SUMMARY | 2022-05-04 05:39 | XMS_ITS | Encounter Summary ---
:1970 Author Organization [facility] Address [address] [place] [address] Care Team Providers Name Role Phone Unavailable Primary Care Provider Unavailable Reason for Referral Outpatient (Routine) - Closed Specialty Diagnoses / Procedures Referred By Contact Refer red To Contact Neurology Diagnoses Mass Axilla Left Pain Back Thoracic Fatigue Primary Osteoarthritis Cervical Spine Cyst Renal Abnormal Magnetic Resonance Imaging Mu Kong D.[facility]. [facility] Procedures Neurology - General neurology eConsult [address] [place] [address] Referral ID Status Reason Start Date Expiration Date Visits Requ ested Visits Authorized [id number] Closed 12/07/2021 12/07/2022 1 1 Reason for Visit Appointment Request (Routine) - Closed Specialty Diagnoses / Procedures Referred By Contact Refer red To Contact General Internal Medicine Referral ID Status Reason Start Date Expiration Date Visits Requ ested Visits Authorized [id number] Closed 11/30/2021 11/30/2022 1 Encounter Details Date Type Department Care Team Description 12/07/2021 Telemedicine Division of General Mu Kong Mass Axilla Left (Primary Dx); Internal Medicine in D.O. Pain Back Thoracic; [place], [place] [address] [facility] Fatigue; [address] [place], [place] Primary Osteoarthritis Cervi roberto Spine; [place] [address] Cyst Renal; [phone] Abnormal Magnetic Resonance Imaging Social History Tobacco [...] How often do you attend baptist or quaker More than 4 time s [...] have completed or the highest Anika, MEd, ANODIC TREATER, SINDY) degree you have received? Sex Assigned [...] breathing exercises. she was given information on [place] relaxationtechnique/Meditation breathing instruction Tarun (AT EASE). 3) [...]
--- OUTSIDE RECORDS SUMMARY | 2022-05-04 05:39 | XMS_ITS | Encounter Summary ---
:1970 Author Organization [facility] Address [address] [place] [address] Care Team Providers Name Role Phone Unavailable Primary Care Provider Unavailable Reason for Referral Outpatient (Routine) - Closed Specialty Diagnoses / Procedures Referred By Contact Refer red To Contact Diagnoses Mass Axilla Left Fibromyalgia Pain Back Thoracic Pain Back Screening Osteoporosis Gastroesophageal Reflux Disease Fatigue Mu Kong D.O. [facility] Procedures DX Chest AP or PA and Lateral 2 Views [address] [place] [phone] Referral ID Status Reason Start Date Expiration Date Visits Requ ested Visits Authorized [id number] Closed 12/03/2021 12/03/2022 1 1 Reason for Visit Outpatient (Routine) - Closed Specialty Diagnoses / Procedures Referred By Contact Refer red To Contact Diagnoses Mass Axilla Left Fibromyalgia Pain Back Thoracic Pain Back Screening Osteoporosis Gastroesophageal Reflux Disease Fatigue Mu Kong D.O. [facility] Procedures DX Chest AP or PA and Lateral 2 Views [address] [place] [address] Referral ID Status Reason Start Date Expiration Date Visits Requ ested Visits Authorized [id number] Closed 12/03/2021 12/03/2022 1 1 Encounter Details Date Type Department Care Team Description 12/04/2021 Hospital Encounter Department of Mu Kong Ax illa Left; Radiology, [place] Jagdish Iglesias Fibromyalgia; Building, in [address] [place] [address] Pain Back Thoracic; [place], [place] Pain Back; [place] [address] Screening Osteoporosis; [address] [facility] [phone] Gastroesophageal Reflux Dise ase; [place], [place] (Work) Fatigue [phone] Social History Tobacco Use Types Packs/Day Years [...] How often do you attend baptist or pentecostalism More than 4 time s [...] have completed or the highest Anika, MEd, DISPATCHER REFINERY, SINDY) degree you have received? Sex Assigned [...]
[2022-05-04 05:40] LABS: Appearance Urine Clear (Clear); Bilirubin Urine Negative (Negative); Blood Urine Negative (Negative); Glucose Urine Negative (Negative); Ketones Urine 1+ (Negative); Leukocyte Esterase Urine 1+ (Negative); Nitrite Urine Negative (Negative); Protein Urine Negative (Negative); Urobilinogen Urine 0.2 (0.2-1.0)
--- OUTSIDE RECORDS SUMMARY | 2022-05-04 05:40 | XMS_ITS | Encounter Summary ---
:1970 Author Organization [facility] Address [address] [place] [address] Care Team Providers Name Role Phone Unavailable Primary Care Provider Unavailable Encounter Details Date Type Department Care Team Description 12/15/2019 Hospital Encounter Department of Darin [facility] Status Radiology, Juan C Haskins M.D. [facility], in [address] [place] [address] [place] [address] [place], [place] [phone] (Work) [phone] Social History Tobacco Use Types Packs/Day Years [...] How often do you attend holiness or christian More than 4 time s per year [...] have completed or the highest Anika, MEd, VESSEL ORDINARY SEAMAN, SINDY) degree you have received? Sex Assigned [...] scoliosis evaluation. ??Posterior fusion L3-L5 wit h roebrt and pedicle screw fixation and bone grafting. [...]
--- OUTSIDE RECORDS SUMMARY | 2022-05-04 05:40 | XMS_ITS | Encounter Summary ---
:1970 Author Organization [facility] Address [address] [place] [address] Care Team Providers Name Role Phone Unavailable Primary Care Provider Unavailable Encounter Details Date Type Department Care Team Description 06/13/2021 Orders Only RST PCP HLTH Breonna Montes M.D. [address] [place], [place] [phone] (Wo rk) Social History [...] How often do you attend sikh or gnosticism More than 4 time s per year [...] have completed or the highest Anika, Tomas, LARD MIXER, SINDY) degree you have received? Sex Assigned at Date Recorded Female 03/04/2018 7:21 PM CDT documented as of this encounter Plan of Treatment Not on filedocumented as of this encounter Visit Diagnoses Not on filedocumented in this encounter
--- OUTSIDE RECORDS SUMMARY | 2022-05-04 05:40 | XMS_ITS | Encounter Summary ---
:1970 Author Organization [facility] Address [address] [place] [address] Care Team Providers Name Role Phone Unavailable Primary Care Provider Unavailable Reason for Referral Specialty Diagnoses / Procedures Referred By Contact Refer red To Contact Breonna Aquino M.D. [facility] [address] [place] [address] Referral ID Status Reason Start Date Expiration Date Visits Requ ested Visits Authorized UET SET UP PERSON Encounter Details Date Type Department Care Team Description 06/13/2021 Orders Only RST PCP [facility] [place] Breonna Aquino M.D. [address] [place], [place] [phone] (Wo rk) Social History [...] How often do you attend sikh or rastafari More than 4 time s per year [...] have completed or the highest Anika, MEd, SR. OPERATIONS MANAGER, SINDY) degree you have received? Sex [...]
--- OUTSIDE RECORDS SUMMARY | 2022-05-04 05:40 | XMS_ITS | Encounter Summary ---
:1970 Author Organization [facility] Address [address] [place] [address] Care Team Providers Name Role Phone Unavailable Primary Care Provider Unavailable Encounter Details Date Type Department Care Team Description 10/11/2019 Clinical Communication Department of Steve Jesus Orthopedic Surgery ashley Haskins M.D. [place], [place] [address] [facility] [address] [place] [address] [phone] Social History Tobacco Use Types Packs/Day Years [...] How often do you attend pentecostalism or amish More than 4 time s [...] completed or the highest Anika, MEd, BAR TURNER, SINDY) degree you have received? Sex Assigned at Date Recorded Female 03/04/2018 7:21 PM CDT documented as of this encounter Plan of Treatment Not on filedocumented as of this encounter Visit Diagnoses Not on filedocumented in this encounter
--- OUTSIDE RECORDS SUMMARY | 2022-05-04 05:40 | XMS_ITS | Encounter Summary ---
:1970 Author Organization [facility] Address [address] [place] [address] Care Team Providers Name Role Phone Unavailable Primary Care Provider Unavailable Reason for Visit Reason Comments COVID Inquiry Encounter Details Date Type Department Care Team Description 10/12/2020 Clinical Communication Department of TRINI Jesus Orthopedic Surgery in [place], [place] [address] [facility] [address] [place] [address] [phone] Social History Tobacco Use Types Packs/Day Years [...] How often do you attend jain or spiritism More than 4 time s [...] have completed or the highest Anika, MEd, PRELOAD SUPERVISOR, SINDY) degree you have received? Sex Assigned at Date Recorded Female 03/04/2018 7:21 PM CDT documented as of this encounter Miscellaneous Notes Telephone Encounter - Danelle Negrete - 10/12/2020 8:50 AM CST ([facility] and [facility] locations only: If the patient is not having symptoms and is requesting COVID-19 Nasal Swab testing only, use the process listed in the COVID-19 Patient Requesting COVID PCR Test OTG COVID-19 [place] Patient Requesting COVID PCR Test). In the past 20 days have you had a swab for COVID that tested positive? no Route reply to: RST ORS SCHEDULING Scheduling Contact Number: [phone] T CAREGIVER documented in this encounter Plan of Treatment Not on filedocumented as of this encounter Visit Diagnoses Not on filedocumented in this encounter
--- OUTSIDE RECORDS SUMMARY | 2022-05-04 05:40 | XMS_ITS | Encounter Summary ---
:1970 Author Organization [facility] Address [address] [place] [address] Care Team Providers Name Role Phone Unavailable Primary Care Provider Unavailable Reason for Visit Reason Onset Date Comments COVID Inquiry 12/17/2019 Encounter Details Date Type Department Care Team Description 12/17/2019 Clinical Communication Division of Gerard Fagan COVID Inquiry Endocrinology in [place], [place] [address] [facility] [address] [place] [phone] [phone] Social History Tobacco Use Types Packs/Day Years [...] How often do you attend quaker or muslim More than 4 time s [...] have completed or the highest Anika, MEd, RELATIONSHIP BANKER, SINDY) degree you have received? Sex Assigned [...] or possible COVID-19? no Scheduling Contact Number: [phone] documented in this encounter Plan of Treatment Not on filedocumented as of this encounter Visit Diagnoses Not on filedocumented in this encounter
--- OUTSIDE RECORDS SUMMARY | 2022-05-04 05:40 | XMS_ITS | Encounter Summary ---
:1970 Author Organization [facility] Address [address] [place] [address] Care Team Providers Name Role Phone Unavailable Primary Care Provider Unavailable Reason for Referral MRI/CAT/PET Scan (Routine) - Closed Specialty Diagnoses / Procedures Referred By Contact Refer red To Contact Radiology Diagnoses Arthrodesis Status Steve Jesus M.D. [facility] Procedures CT Lumbar Spine without IV Contrast [address] [place] [address] Referral ID Status Reason Start Date Expiration Date Visits Requ ested Visits Authorized [id number] Closed 08/12/2019 08/11/2020 1 1 Reason for Visit MRI/CAT/PET Scan (Routine) - Closed Specialty Diagnoses / Procedures Referred By Contact Refer red To Contact Radiology Diagnoses Arthrodesis Status Steve Jesus M.D. [facility] Procedures CT Lumbar Spine without IV Contrast [address] [place] [address] Referral ID Status Reason Start Date Expiration Date Visits Requ ested Visits Authorized [id number] Closed 08/12/2019 08/11/2020 1 1 Encounter Details Date Type Department Care Team Description 12/15/2019 Hospital Encounter Department of Darin Jesus Status Radiology, Inderjit Haskins M.D. Building, in [address] [place], [place] [address] [facility] [address] [place], [place] [phone] (Work) [phone] Social History Tobacco Use Types Packs/Day Years [...] How often do you attend samaritan or temple More than 4 time s per year [...] have completed or the highest Anika, MEd, SPORTS STATISTICIAN, SINDY) degree you have received? Sex Assigned [...]
--- OUTSIDE RECORDS SUMMARY | 2022-05-04 05:40 | XMS_ITS | Encounter Summary ---
:1970 Author Organization [facility] Address [address] [place] [address] Care Team Providers Name Role Phone Unavailable Primary Care Provider Unavailable Reason for Referral MRI/CAT/PET Scan (Routine) - Closed Specialty Diagnoses / Procedures Referred By Contact Refer red To Contact Radiology Diagnoses Arthrodesis Status Steve Jesus M.D. [facility] Procedures CT Lumbar Spine without IV Contrast [address] [place], [place] [phone] Referral ID Status Reason Start Date Expiration Date Visits Requ ested Visits Authorized [id number] Closed 08/12/2019 08/11/2020 1 1 EL REAMER Outpatient (Routine) - Closed Specialty Diagnoses / Procedures Referred By Contact Refer red To Contact Orthopedic Surgery Steve Jesus [facility] Kathy [address] [place] [address] Referral ID Status Reason Start Date Expiration Date Visits Requ ested Visits Authorized [id number] Closed 08/12/2019 08/11/2020 1 1 EL REAMER Reason for Visit Auth/Cert Specialty Diagnoses / Procedures Referred By Contact Refer red To Contact Diagnoses Preoperative Exam Stenosis Spinal Primary Osteoarthritis Lumbar Spine Radiculopathy Lumbosacral Spondylolisthesis Acquired Fusion Lumbar Spine Status Post Preoperative Exam [Z01.818] Stenosis Spinal [M48.00] Procedures CO KRISTOFER/FACE/FORAMIN 1 SEG LUMB CO KRISTOFER/FACE/FORAMIN EA ADD SEG CO ARTHRDSIS LUMB POSTR TECHNIQUE CO POSTR NON SEGM INSTRUMENTATION CO AUTOGRAFT LOCAL SPINE SURG CO LMNCTMY EXCISN LSN EXTRA LUMB DECOMPRESSION POSTERIOR LUMB AR WITH FUSION, Extend current fusion up to L3-4. proceed as indicated Referral ID Status Reason Start Date Expiration Date Visits Requ ested Visits Authorized [id number] 1 1 Encounter Details Date Type Department Care Team Description 08/12/2019 - Hospital Encounter [facility] Ann Marie, Stenosis Spinal (Primary Dx); 08/14/2019 [facility] Bai M.D. Arthrodesis Status; [facility] [address] [facility] Debility; [place], Eighth Floor [place], [place] Decline Functional Status [address] [place] [phone] [place], [place] [phone] (Work) [phone] Social History Tobacco Use Types Packs/Day Years [...] How often do you attend zoroastrian or oriental orthodox More than 4 time [...] have completed or the highest Anika, MEd, REPORT WRITER, SINDY) degree you have received? Sex Assigned at Date Recorded Female 03/04/2018 7:21 PM CDT documented as of this encounter Last Filed Vital Signs Vital Sign Reading Time Taken Comments Blood Pressure 129/61 08/14/2019 12:30 PM BARREL REAMER Pulse 115 08/14/2019 12:35 PM BARREL REAMER Temperature 37 ??C (98.6 ??F) 08/14/2019 12:30 PM BARREL REAMER Respiratory Rate 17 08/14/2019 12:30 PM BARREL REAMER Oxygen Saturation 98% 08/14/2019 12:34 PM BARREL REAMER Inhaled Oxygen Concentration - - Weight 61.4 kg (135 lb 5.8 oz) 08/12/2019 6:45 AM BARREL REAMER Height 154 cm (5' 0.63) 08/12/2019 6:45 AM BARREL REAMER Body Mass Index 25.89 08/12/2019 6:45 AM BARREL REAMER documented in this encounter Discharge Summaries Art [...] may contact Dr. Jesus's service through the [facility] strapping machine operator at . This number should not be used for routine questions that can be answered during business hours. If you have an emergency, please [phone]. If you have a brace or abdominal [...] the surgery date or by your home [facility] physician or Nurse Practitioner or Physician Tour Escort. Leave the operative dressing in place for [...] to L3-4, proceed as indicated. Steve Jesus M.D.Art Albert M.D. [facility] OR Josie Booker was taken to the [...] were provided to the patient and caregiver(s). EL REAMER documented in this encounter Discharge Instructions AttachmentsThe following attachments cannot be sent through Care Everywhere. Tramadol (By mouth) (Slovenian)documented in this encounter Medications at Time of [...] 6 am until 6 pm, please page [facility] at [phone] For urgent matters from 6 pm until 6 am, please page Regina Henderson at [facility] [phone] Art Lennon M.D. - 08/12/2019 2:02 PM [...] pm, please page Ann Marie service at [phone] For urgent matters from 6 pm until 6 am, please page [facility] at [facility] [phone] EL REAMER documented in this encounter Consult Notes Dillon Manriquez O.T. - 08/13/2019 2:19 PM CST Occupational Therapy Acute Hospital Inpatient Evaluation/Treatment SUBJECTIVE Patient's Name: Josie Booker Referring/Attending Provider: Steve Jesus M.D. Medical Diagnosis: Stenosis Spinal [M48.00] Stenosis Spinal [M48.00] Reason for Referral: Occupational Therapy Evaluation and Treatment PT/OT evaluation and treatment; orthopedic rehab; spine-no neuro deficits Onset Date: 08/12/19 Payor: [facility] / Plan: [facility] [place] / Product Type: PPO / [...] proceed as indicated.;Surgeon: Steve Jesus M.D.; Location: [facility] OR ??? OTHER SURGICAL HISTORY Shoulder surgery October 2017 ??? SPINE SURGERY 1984 (L5/S1 fusion) and 2009 C6/C7 fusion ??? 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 EL REAMER Rebecca Dunaway M.S., R.N. - 08/13/2019 11:43 AM CSTAssociated Order(s): IP CONSULT TO CARE MANAGEMENT Discharge Planning Assessment SUBJECTIVE Referral Data Referral Source: Provider/Service Referral Name: Cameron Ruiz Referral Reason: Discharge Planning Discharge Planning: Early screen discharge Who was present during the interview?: Patient, Spouse Installer Apprentice Services Used: No Patient Information Primary Caregiver: Self Accompanied by/Relationship: Juan Booker/Spouse Confucianist/Cultural Factors: [place] Diet/Texture: By mouth Legal Information Legal Decision Maker: Self Advance Directives: Power of Chief Console Operator for health care, Power of Chief Console Operator for finance Power of Chief Console Operator for Health Care Agent Name: Juan Booker Power of Chief Console Operator for Health Agent Contact Info: [phone] Power of Chief Console Operator for Finance Agent Name: Juan Booker Power of Chief Console Operator for Finance Agent Contact Info: [phone] OBJECTIVE Functional Status (ADLs) Functional Status: Independent Assistive Devices: Eyeglasses Level of Assistance: Independent Dressing: Independent Feeding: Independent Bathing: Independent Grooming: Independent Toileting: Independent Transfer to/from Bed, Chair Etc.: Independent Mobility: Independent Meal Prep: Independent Medication Setup/Administration: Independent Telephone Use: Independent Housekeeping: Independent Shopping: Independent Managing Finances: Independent Behavior: Oriented Communication: Can write, Talks, Understands speaking, Understands Slovenian, Reads Environmental Supports Home Environment: House Anticipated Modifications to the Patient's Home: None Anticipated Needs/Assistive Devices ADL Anticipated Needs: None Equipment Anticipated Needs: None Transportation Needs: Support from family Finance/Insurance Primary insurance: [place] Secondary insurance: N/A Does the Patient have [...] going needs. I reviewed my role of Employee Relations Specialist. Patient reviewed her current hospitalization and appears to have understanding, insight and competence of her needs. Patient reviewed her home environment and support system; reviewing that her primary healthcare market consultant - self and spouse will be able [...] Signed by: Rebecca Dunaway M.S., R.N. 08/13/2019 EL REAMER Megan Cooper P.T. - 08/13/2019 11:28 AM CST Physical Therapy Inpatient Evaluation/Treatment SUBJECTIVE Patient's Name: Josie Booker Referring/Attending Provider: Steve Jesus M.D. Medical Diagnosis: Stenosis Spinal [M48.00] Stenosis Spinal [M48.00] Reason for Referral: PT Evaluate and Treat PT/OT evaluation and treatment; orthopedic rehab; spine-no neuro deficits Onset Date: 08/12/19 Payor: [employer] / Plan: [employer] [place] / Product Type: PPO / PERTINENT [...] proceed as indicated.;Surgeon: Steve Jesus M.D.; Location: [facility] OR ??? OTHER SURGICAL HISTORY Shoulder surgery October 2017 ??? SPINE SURGERY 1984 (L5/S1 fusion) and 2009 C6/C7 fusion ??? TONSILLECTOMY 1978 History of Present Illness: s/p posterior lumbar decompression and extension of previous L4-S1 fusion up to L3 Prior Function / Occupational Profile Level of [employer]: Independent with ADLs and functional transfers Lives [...] Basic Mobility CMS Modifier: GENESIS Cooper P.T. EL REAMER documented in this encounter Nursing Notes Lino [...] for RN or MD at this time. EL REAMER Adina Pandya RAnita - 08/14/2019 3:39 AM [...] with minimal assistance. Will continue to monitor. EL REAMER Farhad Garcia R.N. - 08/13/2019 3:02 PM [...] Skin/Tissue integrity maintained or improved Outcome: Progressing EL REAMER Lino Ragland R.N. - 08/12/2019 6:13 PM CST Shift Goals: Clinical Goals for the Shift: adequate pain control Identify possible barriers to meeting goals/advancing plan of care: none End of Shift Summary: Pain tolerable with cold pack. Patient declines to take opioid medication unless she has higher pain. For activities, please refer to the service's order. EL REAMER documented in this encounter OR Notes Op Note - Steve Jesus M.D. - 08/12/2019 8:51 AM CST FULL OP NOTE Procedure(s): Posterior lumbar decompression, Extend current fusion up to L3-4, proceed as indicated. Surgeon(s) and Role: * Steve Jesus M.D. - Primary * Art Albert M.D. - Shelf Filler Anesthesia Type General Pre-operative Diagnosis Stenosis Spinal [...] laterally over the decorticated spine with a [facility] bone bank femoral head. Retractors were placed [...] Implant Name Type Inv. Item Serial No. Crm Specialist Lot No. LRB No. Used Action ALLOGENIC, FEMORAL HEAD - [id number] - [id number] Bone or Tissue ALLOGENIC, FEMORAL HEAD [id number] [facility] [id number] Posterior 1 Implanted SPN SCRW EXP SLD 6.35 7X45 - SNA - [id number] Hardware e.g. pins/screws/rods SPN SCRW EXP SLD 6.35 7X45 NA Depuy Synthes NA Posterior 4 Implanted SPN SCRW EXP SLD 6.35 8X55 - SNA - [id number] Hardware e.g. pins/screws/rods SPN SCRW EXP SLD 6.35 8X55 NA Depuy Synthes NA Posterior [address] EXP SGL MONO 6.35 - SNA - [id number] Hardware e.g. pins/screws/rods SPN SCRW ST EXP SGL MONO 6.35 NA Depuy Synthes NA Posterior 5 Implanted SPN YARY EXP CO LD 6.35X45 - SNA - [id number] Hardware e.g. pins/screws/rods SPN YARY EXP CO LD 6.35X45 NA Depuy Synthes NA Posterior 1 Implanted SPN YARY EXP CO LD 6.35X65 - SNA - [id number] Hardware e.g. pins/screws/rods SPN YARY EXP CO LD 6.35X65 NA Depuy Synthes NA Posterior 1 Implanted Steve Jesus M.D. EL REAMER Brief Op Note - Art Albert M.D. - 08/12/2019 8:51 AM CST BRIEF OP NOTE Procedure(s): Posterior lumbar decompression, Extend current fusion up to L3-4, proceed as indicated. Surgeon(s) and Role: * Steve Jesus M.D. - Primary * Art Albert M.D. - Shelf Filler Anesthesia Type General Pre-operative Diagnosis Stenosis Spinal [...] Implant Name Type Inv. Item Serial No. Crm Specialist Lot No. LRB No. Used Action ALLOGENIC, FEMORAL HEAD - [id number] - [id number] Bone or Tissue ALLOGENIC, FEMORAL HEAD [id number] [facility] [id number] Posterior 1 Implanted SPN SCRW EXP SLD 6.35 7X45 - SNA - [id number] Hardware e.g. pins/screws/rods SPN SCRW EXP SLD 6.35 7X45 NA Depuy Synthes NA Posterior 4 Implanted SPN SCRW EXP SLD 6.35 8X55 - SNA - [id number] Hardware e.g. pins/screws/rods SPN SCRW EXP SLD 6.35 8X55 NA Depuy Synthes NA Posterior [address] EXP SGL MONO 6.35 - SNA - [id number] Hardware e.g. pins/screws/rods SPN SCRW ST EXP SGL MONO 6.35 NA Depuy Synthes NA Posterior 5 Implanted SPN YARY EXP CO LD 6.35X45 - SNA - [id number] Hardware e.g. pins/screws/rods SPN YARY EXP CO LD 6.35X45 NA Depuy Synthes NA Posterior 1 Implanted SPN YARY EXP CO LD 6.35X65 - SNA - [id number] Hardware e.g. pins/screws/rods SPN YARY EXP CO LD 6.35X65 NA Depuy Synthes NA Posterior 1 Implanted Art Albert M.D. EL REAMER documented in this encounter Miscellaneous Notes Hospital [...] and any other co-managing teams dated 08/14/2019. EL REAMER documented in this encounter Plan of Treatment Scheduled Referrals Name Type Priority Associated Order Schedule Diagnoses Orthopedic Surgery Outpatient Referral Routine Ex pected: office visit 12/11/2019 (clinic) (Approximate), Expires: 08/12/2022 documented as of this encounter Procedures Procedure Name Priority Date/Time Associated Comments Diagnosis FL FLUORO LESS THAN RAD - Routine 08/12/2019 12:14 Res ults for 1 HOUR (most inpatients PM BARREL REAMER this proced ure and all are in the outpatients) results section. DECOMPRESSION 08/12/2019 7:09 Stenosis Spinal POSTERIOR LUMBAR AM BARREL REAMER WITH FUSION IONM - EMG Routine 08/12/2019 7:03 Results for AM BARREL REAMER this procedure are in the results section. [...] shoulder. Steve Jesus M.D. IMG DIAGNOSTIC IMAGING [facility] Fluoro Less Than 1 Hour (08/12/2019 12:14 PM BARREL REAMER) Specimen (Source) Anatomical Location Collection Method / Collectio n Time Received Time / Laterality Volume Narrative [facility] RST - 08/12/2019 12:15 PM CS T This exam does not require a radiologist review or interpretation. Please refer to the patient's medical record on this date for clinical details. Steve Jesus M.D. IMG FLUOROSCOPY PROCEDURES Performing Organization Address City/State/ZIP Code Phon e Number [facility] IONM - EMG (08/12/2019 7:03 AM BARREL REAMER) Specimen (Source) Anatomical Collection Method Collection Time Re ceived Time Location / / Volume Laterality 08/12/2019 10:00 AM BARREL REAMER Narrative EMG - 08/12/2019 12:26 PM BARREL REAMER 12-Aug-2019 ? Intraoperative Monitoring ? Final Report Study Number: 7 EMG Dormitory Supervisor: Oscar Choi. [phone] or [phone] Referred by: STEVE JESUS (127 or [phone]) Referred for: Referral Code: ?1959 RX: 1959 [...] for this surgery. Real-time neurophysiologic data was av[employer]uehnle Agrosystems lable for me to view and interrogate contemporaneously. Throughout monitoring, there were provis ions for continuous and immediate communication directly with the operating room team in the surg ical suite. Cameron Choi (127 or [phone])/[facility] Surgery ? Staff ?Minutes Dormitory Supervisor 114 ? Apprentice Plumber 114 ? This interpretation has been electron ically signed: Oscar Choi DO, PhD at 08/12/2019 12:25:12 PM BARREL REAMER Procedure Note Alex Choi, DEarlOEarl, Ph.D. - 020 12-Aug-2019 Intraoperative Monitoring Fi nal Report Study Number: 7 EMG Dormitory Supervisor: Oscar Choi. [phone] or [phone] Referred by: STEVE JESUS (127 or [phone]) Referred for: Referral Code: 1960 RX: 8 [...] surg ical suite. Cameron Choi (127 or [phone])/[facility] Surgery Staff Minutes Dormitory Supervisor 114 Apprentice Plumber 114 This interpretation has been electron ically signed: Oscar Choi DO, PhD at 08/12/2019 12:25:12 PM BARREL REAMER Steve Jesus M.D. NEUROLOGY ORDERABLES Performing Organization [...] PM 1,000 mg 400 mL/hr mg (OFIRMEV) BARREL REAMER 1,000 mg, intravenous, at 400 mL/hr, Administer [...] 1,000 mg (TYLENOL) Given 08/14/2019 12:37 PM BARREL REAMER 1,000 mg 1,000 mg, oral, Every 6 hours, First dose on Yadira 08/12/19 at 1930 Given 08/14/2019 6:40 AM BARREL REAMER 1,000 mg Given 08/14/2019 1:33 AM BARREL REAMER 1,000 mg bisacodyl suppository 10 mg (DULCOLAX) Given 08/14/2019 1:34 AM BARREL REAMER 10 mg 10 mg, rectal, Daily PRN, constipation, Starting on Fri08/12/19 at 1343, Ordered sequence of administration: polyethylene glycol, then bisacodyl until BM achieved. ceFAZolin in dextrose (iso-os) IVPB 2 New Bag 08/13/2019 4:04 AM BARREL REAMER 2 g 200 mL/hr g (ANCEF) 2 [...] Prophylaxis, surgical New Bag 08/12/2019 6:56 PM BARREL REAMER 2 g 200 mL/hr cyclobenzaprine tablet 5 mg (FLEXERIL) Given 08/14/2019 3:31 AM BARREL REAMER 5 mg 5 mg, oral, 3 times daily PRN, muscle spasms, Starting on Fri08/13/19 at 0620 Given 08/13/2019 4:14 PM BARREL REAMER 5 mg Given 08/13/2019 9:34 AM BARREL REAMER 5 mg droperidol injection 0.625 mg (INAPSINE) Given 08/12/2019 3:32 PM BARREL REAMER 0.625 mg 0.625 mg, intravenous, Every 6 [...] 25 mcg (SUBLIMAZE) Given 08/12/2019 1:25 PM BARREL REAMER 25 mcg 25 mcg, intravenous, Every 2 min PRN, For pain 4 or greater (maximum 100 mcg). If max dose of Fentanyl is reached and if pain is greater than 4, discontinue Fentanyl: give Hydromorphone, Starting on Yadira 08/12/19 at 0726, PACU (only) Given 08/12/2019 1:00 PM BARREL REAMER 25 mcg lactated ringers Continued from OR 08/12/2019 12:40 PM 20 mL/hr 20 mL/hr 20 mL/hr, intravenous, BARREL REAMER Continuous, Starting on Yadira 08/12/19 at 0900 lactated ringers Continued from OR 08/12/2019 12:40 PM 20 mL/hr 20 mL/hr 20 mL/hr, intravenous, BARREL REAMER Continuous, Starting on Yadira 08/12/19 at 0900, PACU & Post-Op NaCl 0.9% infusion Restarted 08/13/2019 4:35 AM BARREL REAMER 100 mL/hr 100 mL/hr 100 mL/hr, intravenous, Continuous, Starting on Yadira 08/12/19 at 1345, May discontinue when PO intake is greater than 500cc in an 8 hour shift. New Bag 08/12/2019 3:20 PM BARREL REAMER 100 mL/hr 100 mL/hr ondansetron (PF) injection 4 mg (ZOFRAN) Given 08/12/2019 7:09 PM BARREL REAMER 4 mg 4 mg, intravenous, Every 6 hours PRN, nausea, vomiting, Starting on Yadira 08/12/19 at 1730, For 48 hours, Reassess for nausea or vomiting after at least 10 minutes. If nausea or vomiting persists administer next ordered antiemetic medications (order for antiemetic medication administration ondansetron then droperidol then promethazine). promethazine injection 6.25 mg (PHENERGA N) Given 08/14/2019 1:34 AM BARREL REAMER 6.25 mg 6.25 mg, intravenous, Every 6 hours PRN, nausea, vomiting, Starting on Yadira 08/12/19 at 1343, For 48 hours, RASS must be -2 or higher to administer. Reassess for nausea/vomiting after at least 10 minutes. If nausea or vomiting persists administer next ordered antiemetic medications (order for antiemetic medication administration ondansetron then droperidol then promethazine). Given 08/13/2019 7:26 PM BARREL REAMER 6.25 mg Given 08/12/2019 9:58 PM BARREL REAMER 6.25 mg sennosides-docusate sodium 8.6-50 mg per Given 08/14/2019 9:15 A M BARREL REAMER 1 tablet tablet 1 tablet (SENOKOT-S) 1 tablet, oral, 2 times daily, First dose on Yadira 08/12/19 at 2100, Do not give if patient has diarrhea. Given 08/13/2019 8:23 PM BARREL REAMER 1 tablet Given 08/13/2019 8:25 AM BARREL REAMER 1 tablet traMADol tablet 100 mg (ULTRAM) 100 mg, oral, Every 6 hours PRN, moderat e pain or score 4-6 of 10, severe pain or score 7-10 of 10, Starting on Yadira 08/12/19 at 1343, First line therapy or for pain greater than comfort goal (not to exceed 400 mg in 24 hours). traMADol tablet 50 mg (ULTRAM) Given 08/13/2019 7:26 PM BARREL REAMER 50 mg 50 mg, oral, Every 6 hours PRN, mild pain or score 1-3 of 10, Starting on Yadira 08/12/19 at 1343, First line therapy documented in this encounter Active and Recently Administered Medications Times are shown in BARREL REAMER. Scheduled Medication Order 08/12/2019 08/13/2019 08/14/2019 acetaminophen [...] (COMPLETED) 0824 (Given - Provider: Bishop Gomez, DIGITAL PRODUCTION ARTIST, BOULEVARD GLASSWARE REPLACER)1124 (Given - Provider: Breonna Doll, DIGITAL PRODUCTION ARTIST, BOULEVARD GLASSWARE REPLACER) 2,000 mg (rounded from 1,475 mg = [...] (INAPSINE) 1532 (Given - Provider: Lino Ragland R.N.) 0.625 mg, intravenous, Every 6 hours PRN [...] Parmar REarlN.)1325 (Given - Provider: Madonna Parmar REarlNEarl) 25 mcg, intravenous, Every 2 min PRN, [...] RAnita) 0134 (Given - Provider: Adina addison R.NEarl) 6.25 mg, intravenous, Every 6 hours PRN, [...]
--- OUTSIDE RECORDS SUMMARY | 2022-05-04 05:40 | XMS_ITS | Encounter Summary ---
:1970 Author Organization [facility] Address [address] [place] [address] Care Team Providers Name Role Phone Unavailable Primary Care Provider Unavailable Encounter Details Date Type Department Care Team Description 12/20/2019 Hospital Encounter Department of Nakia Jesus Laboratory Medicine Steve Haskins M.D. Osteoporosis and Pathology, [address] [place] [address] in [place], [place] [address] [place] [address] [place], [place] (Work) [address] [phone] Social History Tobacco Use Types Packs/Day Years [...] How often do you attend methodist or mandaeism More than 4 time s [...] have completed or the highest Anika, MEd, EQUIPMENT ASSOCIATE, SINDY) degree you have received? Sex Assigned [...] Organization Address City/State/ZIP Code Phon e Number [facility] - [address] [place], [place] [address] [facility] [place] [address] [facility] [address] Calcium, Total (12/20/2019 10:02 AM CDT) athologist Signature Calcium, Total, 9.9 8.6 - 10.0 12/20/2019 DTL S mg/dL 12:04 PM CDT Specimen Anatomical Collection Method Collection Time Receive d Time (Source) Location / / Volume Laterality Blood (Blood, 12/20/2019 10:02 12/20/2019 Venous) AM CDT 11:03 AM CDT Steve Jesus M.D. LAB BLOOD ADD-ON Performing Organization Address City/[facility]/ZIP Code Phon e Number [facility] - 200 [place], [place] [address] [place] [address] [place] [address] Laboratories-[address] Phosphorus Inorganic (12/20/2019 10:02 AM CDT) P athologist Signature Phosphorus 4.2 2.5 - 4.5 12/20/2019 DTL (Inorganic), S mg/dL 12:04 PM CDT Specimen Anatomical Collection Method Collection Time Receive d Time (Source) Location / / Volume Laterality Blood (Blood, 12/20/2019 10:02 12/20/2019 Venous) AM CDT 11:03 AM CDT Steve Jesus M.D. LAB BLOOD ADD-ON Performing Organization Address [facility] Phon e Number [facility] [address] (ABNORMAL) Creatinine with Estimated GFR (12/20/2019 10:02 AM CDT) Analysis Performed At Patho logist Time Signature Creatinine 1.06 (H) 0.59 - 12/20/2019 DTL 1.04 mg/dL 12:04 PM CDT eGFR-Non 61 >=60 12/20/2019 DTL Black/ mL/min/BSA 12:04 PM CDT Honduran Comment: ----ADDITIONAL INFORMATION---- Estimated GFR calculated using [...] M.D. LAB BLOOD ADD-ON Performing Organization Address City/[facility]/ZIP Code Phon e Number [facility] - [address] [place], [place] [address] [facility] [place] [address] [facility] [address] 25-Hydroxyvitamin D2 and D3 (12/20/2019 10:01 AM CDT) P athologist Signature 25-Hydroxy D2 <4.0 ng/mL 12/21/2019 [facility] 11:56 PM CDT 25-Hydroxy D3 66 ng/mL 12/21/2019 [facility] 11:56 PM CDT 25-Hydroxy D 66 ng/mL 12/21/2019 [facility] Total 11:56 PM CDT Comment: Interpretation: 51-80 ng/mL (increased r isk of hypercalciuria) ----REFERENCE VALUE---- 25-HYDROXY D TOTAL (D2+D3) Optimum level s in the healthy population are 20-50, patients with bone disease may benefit from higher levels within this r beatriz. ----ADDITIONAL INFORMATION---- This test was developed and its performa nce characteristics determined by [facility] in a manner consistent with CLIA requirements. This test has not been cleared or approved by the U.S. Aubrey d and Drug Administration. Specimen Anatomical Collection Method Collection Time Receive d Time (Source) Location / / Volume Laterality Blood (Blood, 12/20/2019 10:01 12/20/2019 2:11 Venous) AM CDT PM CDT Steve Jesus M.D. LAB BLOOD ADD-ON Performing Organization Address City/State/ZIP Code Phon e Number [facility] [address] [place], [place] [address] [facility] [place] [address] Laboratory Medicine and Pathology [address] [place] documented in this encounter Visit Diagnoses Diagnosis Screening Osteoporosis documented in this encounter
--- OUTSIDE RECORDS SUMMARY | 2022-05-04 05:40 | XMS_ITS | Encounter Summary ---
:1970 Author Organization [facility] Address [address] [place] [address] Care Team Providers Name Role Phone Unavailable Primary Care Provider Unavailable Reason for Referral Outpatient (Routine) - Closed Specialty Diagnoses / Procedures Referred By Contact Refer red To Contact Diagnoses Mass Axilla Left Fibromyalgia Pain Back Thoracic Pain Back Screening Osteoporosis Gastroesophageal Reflux Disease Fatigue Mu Kong D.O. [facility] Procedures ECG 12 Lead [address] [place] [address] Referral ID Status Reason Start Date Expiration Date Visits Requ ested Visits Authorized [id number] Closed 12/03/2021 12/03/2022 1 1 utpatient (Routine) - Closed Specialty Diagnoses / Procedures Referred By Contact Refer red To Contact Diagnoses Mass Axilla Left Fibromyalgia Pain Back Thoracic Pain Back Screening Osteoporosis Gastroesophageal Reflux Disease Mu Crenshaw D.O. [place] Procedures DX Chest AP or PA and Lateral 2 Views [address] [place], [place] [address] Referral ID Status Reason Start Date Expiration Date Visits Requ ested Visits Authorized [id number] Closed 12/03/2021 12/03/2022 1 1 utpatient (Routine) - Closed Specialty Diagnoses / Procedures Referred By Contact Refer red To Contact Diagnoses Mass Axilla Left Mu Kong D.O. [facility] Procedures US Axilla Non Breast Left [address] [place], [place] [address] Referral ID Status Reason Start Date Expiration Date Visits Requ ested Visits Authorized [id number] Closed 12/03/2021 12/03/2022 1 1 Reason for [...] Expiration Date Visits Requ ested Visits Authorized [id number] Closed 11/26/2021 11/26/2022 1 1 Encounter Details Date Type Department Care Team Description 12/03/2021 Comprehensive Visit Division of Mu Kong Mass Ax illa Left (Primary Dx); General Internal Jagdish Iglesias Fibromyalgia; Medicine in [address] [facility] Pain Back Thoracic; [place], [place] Pain Back; [place] [address] Screening Osteoporosis; [address] [facility] [phone] Gastroesophageal Reflux Dise ase; [place], [place] (Work) Fatigue [phone] Social History Tobacco [...] How often do you attend latter-day or yazidi More than 4 time s [...] have completed or the highest Anika, MEd, TABLE GAMES DEALER, SINDY) degree you have received? Sex Assigned [...] Booker is a pleasant 51-year-old female from [place], [place], with a past medical historysignificant for [...] vaccine. It is of note that her [id number] to doses verde Moderna. Few weeks after [...] Microscopic: Urine, Midstream (12/04/2021 7:35 AM CDT) [facility] Method Time Signature Source Urine, Urine, [...] D.O. LAB URINE ORDERABLES Performing Organization Address City/[facility]/ZIP Code Phon e Number [facility] - [address] [place], [place] [address] [facility] [place] [address] [facility] 200 [facility] Sedimentation Rate (12/04/2021 7:27 AM CDT) Analysis Performed At Patho logist Time Signature Sedimentation 2 2 - 22 12/04/2021 DTL Rate, B mm/h 8:52 AM CDT Specimen Anatomical Collection Method Collection Time Receive d Time (Source) Location / / Volume Laterality Blood (Blood, 12/04/2021 7:27 AM 12/05/19 7:49 Venous) CDT AM CDT Mu Kong D.O. LAB BLOOD ADD-ON Performing Organization Address City/[facility]/ZIP Code Phon e Number [facility] - [address] [place], [place] [address] [place] [address] [facility] 200 [address] [facility] Rheumatoid Factor (12/04/2021 7:27 AM CDT) P athologist Signature Rheumatoid <15 <15 IU/mL 12/04/2021 [facility] Factor, S 11:36 AM CDT Specimen Anatomical Collection Method Collection Time Receive d Time (Source) Location / / Volume Laterality Blood (Blood, 12/04/2021 7:27 AM 12/05/19 Venous) CDT 11:10 AM CDT Mu Kong D.O. LAB BLOOD ADD-ON Performing Organization Address City/[facility]/ZIP [facility] Phon e Number [facility] [address] [place] [address] [facility] [place] [address] Laboratory Medicine and Pathology [address] [...] Organization Address City/State/ZIP Code Phon e Number [facility] - [address] [place] [address] [place] [address] [facility] 200 [facility] Monoclonal Gammopathy Diagnostic (12/04/2021 7:27 AM CDT) [facility] Method Time Signature Therapeutic Unspecified 12/04/2021 [facility] Antibody 10:26 AM Administered? CDT Total Protein, 7.1 6.3 - 7.9 12/04/2021 [facility] S g/dL 11:01 AM CDT Roberta Free 1.57 0.3300 - 12/04/2021 [facility] Light Chain, S 1.94 mg/dL 11:58 AM CDT Lambda Free 2.14 0.5700 - 12/04/2021 [facility] Light Chain, S 2.63 mg/dL 11:57 AM CDT Roberta/Lambda 0.7336 0.2600 - 12/04/2021 [facility] FLC Ratio [...] and its performa nce characteristics determined by [facility] in a manner consistent with CLIA requirements. This test has not been cleared or approved by the U.S. Aubrey d and Drug Administration. Specimen Anatomical Collection Method Collection Time Receive d Time (Source) Location / / Volume Laterality Blood (Blood, 12/04/2021 7:27 AM 12/05/19 22 Venous) CDT 10:28 AM CDT Narrative [facility] - 12/05/2021 7:52 AM CDT Specimen Information: Specimen ID: [id number] Specimen Type: Blood Specimen Collection Start Date: 2 ??7:27 AM Specimen Received Date: 12/04/2021 10:28 AM Specimen ID: [id number] Specimen Type: Blood Specimen Collection Start Date: 2 ??7:27 AM Specimen Received Date: 12/04/2021 10:25 AM Mu Kong D.O. LAB BLOOD ADD-ON Performing Organization Address City/State/ZIP Code Phon e Number [facility] [address] [place] [address] [place] [address] [place] [address] Laboratory Medicine and Pathology [address] [place] [address] Dr. CORREA CRP (C-Reactive Protein) (12/04/2021 7:27 [...] Organization Address City/State/ZIP Code Phon e Number [facility] - [address] [place], [place] [address] [facility] [place] [address] [facility] [address] [facility] Cortisol (12/04/2021 7:27 AM CDT) P athologist Signature Cortisol AM 10 7 - 25 12/04/2021 DTL Result mcg/dL 1:06 PM CDT Specimen Anatomical Collection Method Collection Time Receive d Time (Source) Location / / Volume Laterality Blood (Blood, 12/04/2021 7:27 AM 12/05/19 22 Venous) CDT 12:26 PM CDT Mu Kong D.O. LAB BLOOD ADD-ON Performing Organization Address City/State/ZIP Code Phon e Number [facility] - [address] [place], [place] [address] [facility] [place] [address] [facility] [address] [facility] CK (Creatine Kinase) (12/04/2021 7:27 AM CDT) [...] Organization Address City/State/ZIP Code Phon e Number [facility] - [address] [place], [place] [address] [facility] [place] [address] [facility] [address] [facility] Celiac Disease Serology [place] (12/04/2021 7:27 AM CDT) Component Value Ref Test Analysis Performed Pathologis t Range Method Time At Signature Immunoglobulin A 117 61 - 356 12/04/2021 [facility] (IgA), S mg/dL 11:28 AM CDT Celiac Disease Negative serology. Celiac di sease unlikely. However, approximately 10% of 12/04/2021 [facility] Interpretation patients with celiac disease are seronegative. Also, patients who are already 10:22 PM adhering to a gluten-free diet may be seronegative. If hema iac disease is CDT highly clinically suspected, consider HLA-DQ typing. Specimen Anatomical Collection Method Collection Time Receive d Time (Source) Location / / Volume Laterality Blood (Blood, 12/04/2021 7:27 AM 12/05/19 Venous) CDT 10:25 AM CDT Narrative [facility] - 12/04/2021 10:22 PM CDT Specimen Information: Specimen ID: [id number] Specimen Type: Blood Specimen Collection Start Date: 2 ??7:27 AM Specimen Received Date: 12/04/2021 10:25 AM Specimen ID: [id number] Specimen Type: Blood Specimen Collection Start Date: 2 ??7:27 AM Specimen Received Date: 12/04/2021 10:28 AM Mu Kong D.O. LAB BLOOD ADD-ON Performing Organization Address City/State/ZIP Code Phon e Number [facility] [address] [place] [address] SUPPORT [facility] [place] [address] Laboratory Medicine and Pathology [address] [place] [address] Dr. CORREA (ABNORMAL) CBC with Differential, Blood [...] Organization Address City/State/ZIP Code Phon e Number [facility] - [address] [place], [place] [address] [facility] [place] [address] [facility] [address] Antibody to Extractable Nuclear Antigen Evaluation (12/04/2021 7:27 AM CDT) P athologist Signature SS-A/Ro Ab, <0.2 <1.0 12/04/2021 [facility] IgG, S (Negative) 1:06 PM CDT U SS-B/La Ab, <0.2 <1.0 12/04/2021 [facility] IgG, S (Negative) 1:06 PM CDT U Sm Ab, IgG, S <0.2 <1.0 12/04/2021 [facility] (Negative) 1:05 PM CDT U NAIL MAKING MACHINE SETTER Ab, IgG, S 0.4 <1.0 12/04/2021 [facility] [...] D.O. LAB BLOOD ADD-ON Performing Organization Address City/[facility]/ZIP Code Phon e Number [facility] [address] [place] [address] [place] [address] Laboratory Medicine and Pathology [address] [place] Aldolase (12/04/2021 7:27 AM CDT) athologist Signature Aldolase, S 3.6 <7.7 U/L 12/04/2021 DT 10:11 AM CDT Specimen Anatomical Collection Method Collection Time Receive d Time (Source) Location / / Volume Laterality Blood (Blood, 12/04/2021 7:27 AM 12/05/19 22 9:17 Venous) CDT AM CDT Mu Kong D.O. LAB BLOOD NON ADD-ON Performing Organization Address City/[facility]/ZIP [facility] Phon e Number [facility] - [address] [place], [place] [address] [place] [address] [facility] [address] 25-Hydroxyvitamin D2 and D3 (12/04/2021 7:27 AM CDT) athologist Signature 25-Hydroxy D2 <4.0 ng/mL 12/04/2021 [facility] 11:27 PM CDT 25-Hydroxy D3 34 ng/mL 12/04/2021 [facility] 11:27 PM CDT 25-Hydroxy D 34 ng/mL 12/04/2021 [facility] Total 11:27 PM CDT Comment: ----REFERENCE VALUE---- 25-HYDROXY D TOTAL (D2+D3) Optimum level s in the healthy population are 20-50, patients with bone disease may benefit from higher levels within this r beatriz. ----ADDITIONAL INFORMATION---- This test was developed and its performa nce characteristics determined by [facility] in a manner consistent with CLIA requirements. This test has not been cleared or approved by the U.S. Aubrey d and Drug Administration. Specimen Anatomical Collection Method Collection Time Receive d Time (Source) Location / / Volume Laterality Blood (Blood, 12/04/2021 7:27 AM 12/05/19 Venous) CDT 10:53 AM CDT Mu Kong D.O. LAB BLOOD ADD-ON Performing Organization Address City/[facility] Phon e Number [facility] [address] [place], [place] [address] [place] [address] Laboratory Medicine and Pathology [address] [...] D.O. LAB BLOOD ADD-ON Performing Organization Address City/State/[facility] Phon e Number [facility] - [address] [place], [place] [address] [facility] [place] [address] [facility] [address] Pernicious Anemia [place] (12/04/2021 7:27 AM CDT) athologist Signature Vitamin B12 400 180 - 914 12/04/2021 [facility] Assay, S ng/L 12:52 PM CDT Comment: B-12 <400; MMA test was perform ed. Specimen Anatomical Collection Method Collection Time Receive d Time (Source) Location / / Volume Laterality Blood (Blood, 12/04/2021 7:27 AM 12/05/19 Venous) CDT 11:01 AM CDT Mu Kong D.O. LAB BLOOD NON ADD-ON Performing Organization Address City/State/ZIP Code Phon e Number [facility] [address] [place], [place] [address] [place] [address] Laboratory Medicine and Pathology [address] [...] Organization Address City/State/ZIP Code Phon e Number [facility] - [address] [place], [place] [address] [facility] [place] [address] [facility] [address] Ferritin (12/04/2021 7:27 AM CDT) athologist Signature Ferritin, S 95 11 - 307 12/04/2021 DTL mcg/L 1:16 PM CDT Specimen Anatomical Collection Method Collection Time Receive d Time (Source) Location / / Volume Laterality Blood (Blood, 12/04/2021 7:27 AM 12/05/19 22 Venous) CDT 12:26 PM CDT Mu Kong D.O. LAB BLOOD ADD-ON Performing Organization Address City/[facility]/ZIP Code Phon e Number [facility] - [address] [place], [place] [address] [place] [address] [place], [place] [phone] [place] [address] 200 [facility] D-Dimer (12/04/2021 7:27 AM CDT) athologist [...] D.O. LAB BLOOD ADD-ON Performing Organization Address City/[facility]/ZIP Code Phon e Number [facility] - [address] [place], [place] [address] [place] [address] [place], [place] [address] [place] [address] [facility] Bilirubin, Direct (12/04/2021 7:27 AM CDT) athologist Signature Bilirubin, <0.2 0.0 - 0.3 12/04/2021 DT Direct, S mg/dL 2:09 PM CDT Specimen Anatomical Collection Method Collection Time Receive d Time (Source) Location / / Volume Laterality Blood (Blood, 12/04/2021 7:27 AM 12/05/19 22 1:16 Venous) CDT PM CDT Mu Kong D.O. LAB BLOOD ADD-ON Performing Organization Address City/[facility]/ZIP Code Phon e Number [facility] - [address] [place], [place] [address] [place] [address] [place] [address] [facility] (ABNORMAL) Lipid Panel (12/04/2021 7:26 AM CDT) [...] Organization Address City/State/ZIP Code Phon e Number [facility] - [address] [place], [place] [address] [facility] [place] [address] [facility] [address] (ABNORMAL) [...] 12/04/2021 DTL Black/ mL/min/BSA 3:38 PM CDT [place] Comment: ----ADDITIONAL INFORMATION---- Estimated GFR calculated using [...] D.O. LAB BLOOD ADD-ON Performing Organization Address City/[facility]/ZIP [facility] Phon e Number [facility] - 200 [place], [place] [address] [place] [id number] [place] [address] Iron and Total Iron-Binding Capacity (12/04/2021 7:26 [...] D.O. LAB BLOOD ADD-ON Performing Organization Address City/[facility]/ZIP [facility] Phon e Number [facility] - [id number] [place] [address] ECG 12 Lead (12/03/2021 1:41 PM CDT) athologist Signature Ventricular Rate 74 BPM MUSE ECG/Min WI Interval 132 ms MUSE QRSD Interval 78 ms MUSE QT Interval 372 ms MUSE QTC Interval 412 ms MUSE P [place] 45 degrees MUSE R [place] 59 degrees MUSE T Wave [place] 67 degrees MUSE Specimen Anatomical Collection Method [...]
--- OUTSIDE RECORDS SUMMARY | 2022-05-04 05:40 | XMS_ITS | Encounter Summary ---
:1970 Author [address] [facility] Address [address] [place] [address] Care Team Providers Name Role Phone Unavailable Primary Care Provider Unavailable Encounter Details Date Type Department Care Team Description 12/01/2020 Hospital Encounter Department of [facility] Sp[facility] Radiology, Juan C Kraft M.D. [facility], in [address] [place] [address] [place] [address] [place], [place] [phone] [address] (Work) [phone] Social History Tobacco Use Types Packs/Day Years [...] How often do you attend confucianist or episcopal More than 4 time s [...] have completed or the highest Anika, MEd, GOVERNMENT DOCUMENTS LIBRARIAN, SINDY) degree you have received? Sex Assigned [...]
--- OUTSIDE RECORDS SUMMARY | 2022-05-04 05:40 | XMS_ITS | Encounter Summary ---
:1970 Author Organization [facility] Address [address] [place] [address] Care Team Providers Name Role Phone Unavailable Primary Care Provider Unavailable Reason for Visit Auth/Cert Specialty Diagnoses / Procedures Referred By Contact Refer red To Contact Diagnoses Preoperative Exam Stenosis Spinal Primary Osteoarthritis Lumbar Spine Radiculopathy Lumbosacral Spondylolisthesis Acquired Fusion Lumbar Spine Status Post Preoperative Exam [Z01.818] Stenosis Spinal [M48.00] Procedures UT KRISTOFER/FACE/FORAMIN 1 SEG LUMB UT KRISTOFER/FACE/FORAMIN EA ADD SEG UT ARTHRDSIS LUMB POSTR TECHNIQUE UT POSTR NON SEGM INSTRUMENTATION UT AUTOGRAFT LOCAL SPINE SURG UT LMNCTMY EXCISN LSN EXTRA LUMB DECOMPRESSION POSTERIOR LUMB AR WITH FUSION, Extend current fusion up to L3-4. proceed as indicated Referral ID Status Reason Start Date Expiration Date Visits Requ ested Visits Authorized [id number] 1 1 Encounter Details Date Type Department Care Team Description 08/12/2019 Anesthesia Event RST ROMB MAIN OR Tam Moulton III, M.D. 200 [place] [address] [address] [facility] Manan Newell M.D. [address] [place] [phone] [place] [address] Anesthesia Record Procedure Summary [...] 08/12/19; Placement GomezBishop W, Time: 749; Catheter MINE UTILITY OPERATOR, LYNETTE, DNAP Size: 18 G; Orientation: Right; [...] 1418 by Posterior; 04/24/21 Nakia Howard, R.N. [facility] (Removed by background Maya mustafa [facility] completion utility); Automated [facility] [employer] 1418 (Removed by background completion [...] or relatives? How often do you attend nondenominational or sikhism More than 4 time s per year 11/30/2021 services? Do you belong to any clubs or organizations Yes 11/30/2021 such as nondenominational groups, unions, fraternal or athletic groups, or [...] have completed or the highest Anika, MEd, CHANGE MANAGEMENT FACILITATOR, SINDY) degree you have received? Sex Assigned at Date Recorded Female 03/04/2018 7:21 PM CDT documented as of this encounter OR Notes Anesthesia Postprocedure Evaluation - Wong Lyon M.D. - 08/12/2019 1:15 PM CST Patient: Josie Booker Procedure Summary Date: 08/12/19 Room / Location: [address] / [facility] in [place], [place] Anesthesia Start: 34 Anesthesia Stop: 1246 [...] Post Op nausea/vomiting: none Hydration status: euvolemic ESALE LOAN PROCESSOR Anesthesia Procedure Notes - Bishop Gomez APRN, [...] Procedure outcome: successful Airway event: no complications ESALE LOAN PROCESSOR Anesthesia Preprocedure Evaluation - Manan Newell M.D. - 08/12/2019 7:18 AM CST Preprocedure Anesthesia & H&P Assessment Procedure Summary Date/Time: 08/12/19729 Procedure: Posterior lumbar decompression, Extend current fusion up to L3-4, proceed as indicated. (N/A Spine Lumbar) Diagnosis: Stenosis Spinal [M48.00] Pre-op diagnosis: Stenosis Spinal [M48.00]. Location: [address] / [facility] in [place], [place] Provider: Steve Jesus M.D. Pertinent components [...] with patient /legal guardian or through an sales broker. Risks/Benefits/Alternatives of Blood transfusion discussed with patient / legal guardian, including an opportunity to ask questions and/or decline some or all transfusion therapies. The patient / legalguardian consented to the use of all blood products, as deemed medically necessary Approval to Proceed: approved for anesthesia ESALE LOAN PROCESSOR documented in this encounter Plan of Treatment Not on filedocumented as of this encounter Procedures Procedure Name Priority Date/Time Associated Comments Diagnosis LDA ANE ENDOTRACHEAL Routine 08/12/2019 8:34 AM R esults for this AIRWAY WHOLESALE LOAN PROCESSOR procedure are i n the results section. documented in this encounter Results LDA ANE ENDOTRACHEAL AIRWAY (08/12/2019 8:34 AM WHOLESALE LOAN PROCESSOR) Narrative Bishop Gomez APRN, CRNA - 08/12/2019 8:34 AM WHOLESALE LOAN PROCESSOR Bishop Gomez APRN, CRNA ? 08/12/2019 ??8:35 [...] % injection New Bag 08/12/2019 11:18 AM WHOLESALE LOAN PROCESSOR intravenous, Continuous Infusion: Per Instructions PRN, Starting on Yadira 08/12/19 at 1118, Anesthesia Intra-op ceFAZolin injection 2,000 mg (ANCEF) Given 08/12/2019 11:24 AM WHOLESALE LOAN PROCESSOR 2 g 2,000 mg (rounded from 1,475 [...] Indications: Prophylaxis, surgical Given 08/12/2019 8:24 AM WHOLESALE LOAN PROCESSOR 2 g dexamethasone injection (DECADRON) Given 08/12/2019 8:42 AM WHOLESALE LOAN PROCESSOR 8 mg As needed, Starting on Yadira 08/12/19 at 0842, Anesthesia Intra-op fentaNYL injection (SUBLIMAZE) Given 08/12/2019 10:10 AM WHOLESALE LOAN PROCESSOR 25 mcg intravenous, As needed, Starting on Yadira 08/12/19 at 0743, Anesthesia Intra-op Given 08/12/2019 10:00 AM WHOLESALE LOAN PROCESSOR 25 mcg Given 08/12/2019 8:05 AM WHOLESALE LOAN PROCESSOR 50 mcg HYDROmorphone (PF) injection (DILAUDID) Given 08/12/2019 11:32 AM WHOLESALE LOAN PROCESSOR 0.2 mg As needed, Starting on Yadira 08/12/19 at 0847, Anesthesia Intra-op Given 08/12/2019 11:25 AM WHOLESALE LOAN PROCESSOR 0.2 mg Given 08/12/2019 9:17 AM WHOLESALE LOAN PROCESSOR 0.6 mg ketamine injection (KETALAR) Given 08/12/2019 7:43 AM WHOLESALE LOAN PROCESSOR 30 mg As needed, Starting on Yadira 08/12/19 at 0743, Anesthesia Intra-op ketorolac injection (TORADOL) Given 08/12/2019 12:46 PM WHOLESALE LOAN PROCESSOR 15 mg As needed, Starting on Yadira 08/12/19 at 1246, Anesthesia Intra-op lactated ringers New Bag 08/12/2019 11:52 AM WHOLESALE LOAN PROCESSOR intravenous, Continuous Infusion: Per Instructions PRN, Starting on Yadira 08/12/19 at 0734, Anesthesia Intra-op New Bag 08/12/2019 7:34 AM WHOLESALE LOAN PROCESSOR lactated ringers New Bag 08/12/2019 11:18 AM WHOLESALE LOAN PROCESSOR intravenous, Continuous Infusion: Per Instructions PRN, Starting on Yadira 08/12/19 at 0750, Anesthesia Intra-op New Bag 08/12/2019 10:08 AM WHOLESALE LOAN PROCESSOR New Bag 08/12/2019 7:50 AM WHOLESALE LOAN PROCESSOR lidocaine (PF) (cardiac) injection Given 08/12/2019 7:43 AM WHOLESALE LOAN PROCESSOR 100 mg intravenous, As needed, Starting on Yadira 08/12/19 at 0743, Anesthesia Intra-op ondansetron (PF) injection (ZOFRAN) Given 08/12/2019 11:51 AM WHOLESALE LOAN PROCESSOR 4 mg intravenous, As needed, Starting on Yadira 08/12/19 at 1151, Anesthesia Intra-op phenylephrine injection Given 08/12/2019 11:48 AM WHOLESALE LOAN PROCESSOR 100 mcg intravenous, As needed, Starting on Yadira 08/12/19 at 0842, Anesthesia Intra-op Given 08/12/2019 11:05 AM WHOLESALE LOAN PROCESSOR 100 mcg Given 08/12/2019 11:00 AM WHOLESALE LOAN PROCESSOR 50 mcg propofol 10 mg/mL infusion Rate/Dose 08/12/2019 65 mcg/kg/min 23.9 m L/hr (DIPRIVAN) Change 11:56 AM WHOLESALE LOAN PROCESSOR intravenous, Continuous Infusion: Per Instructions PRN, Starting on Yadira 08/12/19 at 0744, Anesthesia Intra-op Rate/Dose Change 08/12/2019 11:28 AM WHOLESALE LOAN PROCESSOR 75 mcg/kg/min 27.6 mL/hr Rate/Dose Change 08/12/2019 11:20 AM WHOLESALE LOAN PROCESSOR 100 mcg/kg/min 36.8 mL/hr propofol injection (DIPRIVAN) Given 08/12/2019 12:23 PM WHOLESALE LOAN PROCESSOR 40 mg intravenous, As needed, Starting on Yadira 08/12/19 at 0743, Anesthesia Intra-op Given 08/12/2019 11:21 AM WHOLESALE LOAN PROCESSOR 20 mg Given 08/12/2019 7:58 AM WHOLESALE LOAN PROCESSOR 50 mg succinylcholine (PF) injection (ANECTINE ) Given 08/12/2019 7:43 AM WHOLESALE LOAN PROCESSOR 140 mg intravenous, As needed, Starting on Yadira 08/12/19 at 0743, Anesthesia Intra-op sugammadex injection (BRIDION) Given 08/12/2019 12:23 PM WHOLESALE LOAN PROCESSOR 130 mg As needed, Starting on Yadira 08/12/19 at 1223, Anesthesia Intra-op tranexamic acid 600 mg in NaCl 0.9% IVPB New Bag 08/12/2019 8:04 AM WHOLESALE LOAN PROCESSOR 600 mg 600 mg (rounded from 590 mg = 10 mg/kg ? 59 kg Order-specific weight), intravenous, at 168 mL/hr, Administer over 20 Minutes, Once in surgery, OR use only, Starting on Yadira 08/12/19 at 0742, For 1 dose, Intra-Op tranexamic acid 8 mg/mL in New Bag 08/12/2019 8:25 AM WHOLESALE LOAN PROCESSOR 2 mg/kg/ hr 14.8 mL/hr NaCl 0.9% 250 mL infusion (CYKLOKAPRON) 2 mg/kg/hr ? 59 kg Order-specific weight (14.75 mL/hr, rounded to 14.8 mL/hr), intravenous, Continuous, Starting on Yadira 08/12/19 at 0745, Intra-Op, In OR until skin closure. Pharmacy to adjust infusion dose for renal function. premix bag documented in this encounter
--- OUTSIDE RECORDS SUMMARY | 2022-05-04 05:40 | XMS_ITS | Encounter Summary ---
:1970 Author Organization [facility] Address [address] [place] [address] Care Team Providers Name Role Phone Unavailable [...] How often do you attend jainism or adventist More than 4 time s per year [...] have completed or the highest Anika, MEd, JACKET CHANGER, SINDY) degree you have received? Sex Assigned at Date Recorded Female 03/04/2018 7:21 PM CDT documented as of this encounter Plan of Treatment Not on filedocumented as of this encounter Procedures Procedure Name Priority Date/Time Associated Comments Diagnosis ORTHOPEDIC SURGERY Routine 08/12/2019 12:00 PM Re sults for this IMAGE EXAM MOBILE EQUIPMENT MECHANIC procedure are i n the results section. documented in this encounter Results Unspecified-Orthopedic Surgery Image Exam (08/12/2019 12:00 PM MOBILE EQUIPMENT MECHANIC) Specimen (Source) Anatomical Location Collection Method / Collectio n Time Received Time / Laterality Volume Narrative IIMS - 08/13/2019 9:08 AM MOBILE EQUIPMENT MECHANIC This order has been created and auto-finalized [...]
--- OUTSIDE RECORDS SUMMARY | 2022-05-04 05:40 | XMS_ITS | Encounter Summary ---
:1970 Author Organization [facility] Address [address] [place] [address] Care Team Providers Name Role Phone Unavailable Primary Care Provider Unavailable Reason for Referral Outpatient (Routine) - Closed Specialty Diagnoses / Procedures Referred By Contact Refer red To Contact Integrative Medicine Diagnoses Fibromyalgia Nakia Carrillo M.D., [facility] [address] [place] [address] Referral ID Status Reason Start Date Expiration Date Visits Requ ested Visits Authorized [id number] Closed 11/30/2021 11/30/2022 1 1 Scheduling Instructions CM Reason for Visit Reason Comments Triage Encounter Details Date Type Department Care Team Description 11/29/2021 Clinical Communication Division of General Prescheduli ng, Triage Internal Medicine in Provider [place], [place] [address] [place] [phone] Social History Tobacco Use Types Packs/Day Years [...] or relatives? How often do you attend jewish or uatsdin More than 4 time s per year 11/30/2021 services? Do you belong to any clubs or organizations Yes 11/30/2021 such as jewish groups, unions, fraternal or athletic groups, or [...] slept in a care home (including now)? Education Answer Date Recorded What is the highest level of school Master's degree (e.g., M A, MS, 08/08/2019 you have completed or the highest Anika, MEd, BRAKE RIDER, SINDY) degree you have received? Sex Assigned at Date Recorded Female 03/04/2018 7:21 PM CDT documented as of this encounter Miscellaneous Notes Telephone Encounter - Stu Sood - 11/29/2021 7:37 AM CDT Josie Booker 1970 [id number] years Gender: Female Who filled out [...] 12 months Previous Eval: Yes Institution: [facility] ([facility])- Dr. Rodriguez and Dr. Mullins for Endoscopy and initial consultation [facility] for swallow test [facility] for EKG due to chest pain [...] a bit challenging when two doctors (at [facility]) potentially have different viewpoints. ADDITIONAL - [...] to 12 months Previous Eval: Yes Institution: [facility] ([facility]) [facility] Have had: Procedures (surgeries, [...] nerve decompression (one with Dr. Jesus at [place] in August of 2019) and I am [...] Previous Eval: Yes Institution: Dr. Jesus - [facility] Dr. Dupree - [facility] Have had: Procedures (surgeries, colonoscopies, biopsies, [...] DIAGNOSIS: Willing to attend [facility] or [facility] appointments - Probably yes DAILY MEDS: 3 OPIOIDS: No CURRENT DIALYSIS: No CURRENT HEALTH/PAST YEAR: Fair CONFIDENCE: Agree NOT AVAILABLE: January 14, February 18, Mar 18, Apr 08 PHONE: [phone] documented in this encounter Plan of Treatment Scheduled Referrals Name Type Priority Associated Diagnoses Order [facility] Integrative Medicine Outpatient Referral Routine Fibromyalgia Expected: - Fibromyalgia 12/04/2021, treatment program Expires: consult (clinic) 12/04/2022 documented as of this encounter Results Dehydroepiandrosterone Sulfate (DHEA-S) (12/04/2021 7:27 AM CDT) Component Value Ref Test Analysis Performed At [facility] Range Method Time Signature Dehydroepiandrosterone 34 16 - 195 12/04/2021 [facility] Sulfate, S mcg/dL 11:26 AM CDT Specimen Anatomical Collection Method Collection Time Receive d Time (Source) Location / / Volume Laterality Blood (Blood, 12/04/2021 7:27 AM 12/05/19 22 Venous) CDT 10:34 AM CDT Nakia Carrillo M.D., M.S. LAB BLOOD ADD-ON Performing Organization Address City/State/ZIP Code Phon e Number [facility] [address] [place] [address] [place] [address] Laboratory Medicine and Pathology [address] [place] [address] Dr. CORREA Connective Tissue Diseases [place] (12/04/2021 7:27 AM CDT) athologist Signature Antinuclear Ab, 0.3 <=1.0 12/04/2021 [facility] S (Negative) 4:02 PM CDT U Comment: ----ADDITIONAL INFORMATION---- Method: Enzyme-linked immunoassay using HEp-2 nuclear extract supplemented with purified antig ens. Cyclic Citrullinated <15.6 <20.0 (Negative) U 12/04/2021 5:11 PM [facility] Peptide Ab, S CDT Interpretation SEE COMMENT 12/04/2021 5:11 PM [facility] CDT Comment: Tests for antibodies to dsDNA and RAMÓN an tigens are not performed automatically unless the MARIUM r esult is > or = 3.0 U. ??Studies performed at [facility] indicate that positive MARIUM results <3.0 U are rarely a ccompanied by positive second order tests. Specimen Anatomical Collection Method Collection Time Receive d Time (Source) Location / / Volume Laterality Blood (Blood, 12/04/2021 7:27 AM 12/05/19 Venous) CDT 10:25 AM CDT Nakia Carrillo M.D., M.S. LAB BLOOD ADD-ON Performing Organization Address City/[facility] Phon e Number [facility] [address] [place] [address] [place] [address] Laboratory Medicine and Pathology [address] [place] [address] Dr. CORREA Thyroid Function [place] (12/04/2021 7:26 AM CDT) athologist Signature TSH, Sensitive 1.6 0.3 - 4.2 12/04/2021 [facility] mIU/L 3:28 PM CDT Specimen Anatomical Collection Method Collection Time Receive d Time (Source) Location / / Volume Laterality Blood (Blood, 12/04/2021 7:26 AM 12/05/19 22 1:13 Venous) CDT PM CDT Nakia Carrillo M.D., M.S. LAB BLOOD ADD-ON Performing Organization Address City/State/ZIP Code Phon e Number [facility] [address] [place], [place] [address] [facility] [address] Laboratories-[facility] [address] [place] Home Overnight Oximetry (12/03/2021) Specimen (Source) Anatomical Location Collection Method / Collectio n Time Received Time / Laterality Volume 12/03/2021 Narrative [facility] - 12/04/2021 3:28 PM CD T This result has an attachment that is no t available. See PDF report for results Procedure Note Luis Enrique Bowser M.D., M.P.H. - 12/04/2021 See PDF report for results Nakia Carrillo M.D., M.S. PFT ORDERABLES Performing Organization Address City/[facility] Code Phon e Number [facility] documented in this encounter Visit Diagnoses Diagnosis Fibromyalgia - Primary Lump In Axillary Tail Of The Left Breast Fibromyalgia documented in this encounter
--- OUTSIDE RECORDS SUMMARY | 2022-05-04 05:40 | XMS_ITS | Encounter Summary ---
:1970 Author Organization [facility] Address [address] [place] [address] Care Team Providers Name Role Phone Unavailable Primary Care Provider Unavailable Encounter Details Date Type Department Care Team Description 03/06/2021 Clinical Communication Department of Steve Jesus Orthopedic Surgery ashley Haskins M.D. [place], [place] [address] [facility] [address] [place] [phone] [phone] Social History Tobacco Use Types Packs/Day Years [...] or relatives? How often do you attend zoroastrianism or jehovah's witness More than 4 time s per year 11/30/2021 services? Do you belong to any clubs or organizations Yes 11/30/2021 such as zoroastrianism groups, unions, fraternal or athletic groups, or [...] have completed or the highest Anika, Tomas, COLLABORATIVE PHYSICIAN, SINDY) degree you have received? Sex Assigned at Date Recorded Female 03/04/2018 7:21 PM CDT documented as of this encounter Plan of Treatment Not on filedocumented as of this encounter Visit Diagnoses Not on filedocumented in this encounter
--- OUTSIDE RECORDS SUMMARY | 2022-05-04 05:40 | XMS_ITS | Encounter Summary ---
:1970 Author Organization [facility] Address [address] [place] [address] Care Team Providers Name Role Phone Unavailable Primary Care Provider Unavailable Reason for Visit Outpatient (Routine) - Closed Specialty Diagnoses / Procedures Referred By Contact Refer red To Contact Endocrinology Diagnoses Screening Osteoporosis Steve Jesus Crump Autumn Chavez [address] [place] [address] Referral ID Status Reason Start Date Expiration Date Visits Requ ested Visits Authorized [id number] Closed 09/14/2019 09/13/2020 1 1 Encounter Details Date Type Department Care Team Description 12/20/2019 Comprehensive Visit Division of Steve Jesus M.D. [address] [place] [phone] Osteopenia (Primary Dx); Endocrinology in Gerard Fagan M.D. [address] [place] [phone] Screening Osteoporosis [place], [place] [address] [place] [phone] Social History Tobacco Use Types Packs/Day Years [...] How often do you attend sikh or evangelical More than 4 time s [...] have completed or the highest Anika, Tomas, FINISH MOLDER, SINDY) degree you have received? Sex Assigned [...] medication to strengthen her bone density, then [id number] mg once a week would likely be [...] Gerard Fagan M.D. CT CT Job ID: [id number] documented in this encounter Plan of Treatment Not on filedocumented as of this encounter Visit Diagnoses Diagnosis Osteopenia - Primary Screening Osteoporosis documented in this encounter
--- OUTSIDE RECORDS SUMMARY | 2022-05-04 05:40 | XMS_ITS | Encounter Summary ---
:[address] [facility] Address [address] [place] [address] Care Team Providers Name Role Phone Unavailable Primary Care Provider Unavailable Reason for Visit Outpatient (Routine) - Closed Specialty Diagnoses / Procedures Referred By Contact Refer red To Contact Orthopedic Surgery Maria Teresa Villanueva M .D. [facility] [address] [place] [address] Referral ID Status Reason Start Date Expiration Date Visits Requ ested Visits Authorized [id number] Closed 12/15/2019 12/14/2020 1 1 Encounter Details Date Type Department Care Team Description 12/01/2020 Office Visit Department of Steve Jesus (Primary Dx); Orthopedic Surgery ashley Haskins M.D. Laminectomy Lumbar Status Post [place], [place] [address] [facility] [address] [place] [phone] Social History Tobacco Use Types Packs/Day Years [...] How often do you attend amish or spiritism More than 4 time s [...] have completed or the highest Anika, MEd, FURNACE ROASTER, SINDY) degree you have received? Sex [...]
--- OUTSIDE RECORDS SUMMARY | 2022-05-04 05:40 | XMS_ITS | Encounter Summary ---
:[address] [facility] Address [address] [place] [address] Care Team Providers Name Role Phone Unavailable Primary Care Provider Unavailable Reason for Visit Reason Comments COVID Nurse Line Encounter Details Date Type Department Care Team Description 12/01/2019 Clinical Communication Department of TRINI Jesus Nurse Line Orthopedic Surgery Steve Haskins M.D. in [place], [facility] [address] [place], [place] [address] [place] [phone] [place], [place] [phone] (Work) [phone] Social History Tobacco Use Types Packs/Day Years [...] How often do you attend anabaptist or moravian More than 4 time s per year [...] completed or the highest Anika, MEd, ASSISTANT QUALITY MANAGER, SINDY) degree you have received? Sex [...] Route reply to: Brittanie Young Contact Number: [phone] documented in this encounter Plan of Treatment Not on filedocumented as of this encounter Visit Diagnoses Not on filedocumented in this encounter
--- OUTSIDE RECORDS SUMMARY | 2022-05-04 05:40 | XMS_ITS | Encounter Summary ---
:1970 Author Organization [facility] Address [address] [place] [address] Care Team Providers Name Role Phone Unavailable Primary Care Provider Unavailable Reason for Visit Reason Comments COVID Inquiry Encounter Details Date Type Department Care Team Description 12/14/2019 Clinical Communication Department of TRINI Jesus Orthopedic Surgery in [place], [place] [address] [facility] [address] [place] [phone] Social History Tobacco Use Types Packs/Day Years [...] or relatives? How often do you attend bahai or gnosticist More than 4 time s per year 11/30/2021 services? Do you belong to any clubs or organizations Yes 11/30/2021 such as bahai groups, unions, fraternal or athletic groups, or [...] have completed or the highest Anika, MEd, FILLETER, SINDY) degree you have received? Sex Assigned [...] Route reply to: n/a Scheduling Contact Number: [phone] documented in this encounter Plan of Treatment Not on filedocumented as of this encounter Visit Diagnoses Not on filedocumented in this encounter
--- OUTSIDE RECORDS SUMMARY | 2022-05-04 05:40 | XMS_ITS | Encounter Summary ---
:1970 Author Organization [facility] Address [address] [place] [address] Care Team Providers Name Role Phone Unavailable Primary Care Provider Unavailable Reason for Visit Appointment Request (Routine) - Closed Specialty Diagnoses / Procedures Referred By Contact Refer red To Contact Orthopedic Surgery Diagnoses Pain Back Referral ID Status Reason Start Date Expiration Date Visits Requ ested Visits Authorized [id number] Closed 04/13/2021 04/13/2022 1 1 Encounter Details Date Type Department Care Team Description 06/21/2021 Telemedicine Department of [facility] Osteoa rthritis Orthopedic Surgery in [place] Cervical Spine (Primary [place], [place] [address] [facility]) [address] [place] [address] [phone] Social History Tobacco Use Types Packs/Day Years [...] or relatives? How often do you attend adventism or rastafarian More than 4 time s per year 11/30/2021 services? Do you belong to any clubs or organizations Yes 11/30/2021 such as adventism groups, unions, fraternal or athletic groups, or [...] have completed or the highest Anika, MEd, GRIPPER INSTALLER, SINDY) degree you have received? 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
--- OUTSIDE RECORDS SUMMARY | 2022-05-04 05:40 | XMS_ITS | Encounter Summary ---
:1970 Author Organization [facility] Address [address] [place] [address] Care Team Providers Name Role Phone Unavailable Primary Care Provider Unavailable Reason for Referral Outpatient (Routine) - Closed Specialty Diagnoses / Procedures Referred By Contact Refer red To Contact Orthopedic Surgery Maria Teresa Villanueva M .D. [facility] [address] [place] [address] Referral ID Status Reason Start Date Expiration Date Visits Requ ested Visits Authorized [id number] Closed 12/15/2019 12/14/2020 1 1 Physical Therapy (Routine) - Closed Specialty Diagnoses / Procedures Referred By Contact Refer red To Contact Massage Therapy Diagnoses Stenosis Spinal Maria Teresa Villanueva M.D. [address] [place] [address] Referral ID Status Reason Start Date Expiration Visits Visits Date Requested Authorized [id number] Closed Patient 12/15/2019 12/14/2020 1 1 Preference Physical Therapy (Routine) - Closed Specialty Diagnoses / Procedures Referred By Contact Refer red To Contact Physical Therapy Diagnoses Stenosis Spinal Maria Teresa Villanueva M.D. [address] [place] [address] Referral ID Status Reason Start Date Expiration Visits Visits Date Requested Authorized [id number] Closed Patient 12/15/2019 12/14/2020 1 1 Preference Reason for Visit Outpatient (Routine) - Closed Specialty Diagnoses / Procedures Referred By Contact Refer red To Contact [facility] [address] [place] [address] Referral ID Status Reason Start Date Expiration Date Visits Requ ested Visits Authorized [id number] Closed 08/12/2019 08/11/2020 1 1 Encounter Details Date Type Department Care Team Description 12/15/2019 Office Visit Department of Steve Jesus [facility] Orthopedic Surgery ashley Haskins M.D. (Primary Dx) [place], [place] [address] [email or web address] [address] [place] [phone] Social History Tobacco Use Types Packs/Day Years [...] How often do you attend baptism or hoahaoism More than 4 time s [...] have completed or the highest Anika, MEd, CANAL DRIVER, SINDY) degree you have received? Sex [...] Ext: 5/ 5/5 Wrist Flex: / 5/5 Engineering Patternmaker: /5 5/5 Lower Extremity: Left Right Iliopsoas: [...] Type Priority Associated Order Schedule Diagnoses PT non-[place] referral Outpatient Referral Routine Stenosis Spin al Expected: 12/15/2019 (Approximate), Expires: 12/14/2022 PT non-[place] referral Outpatient Referral Routine Stenosis Spin al [...]
--- OUTSIDE RECORDS SUMMARY | 2022-05-04 05:41 | XMS_ITS | Encounter Summary ---
:1970 Author Organization [facility] Address [address] [place] [address] Care Team Providers Name Role Phone Unavailable Primary Care Provider Unavailable Reason for Visit Reason Onset Date Comments Appointment 02/25/2019 [place] side injection Encounter Details Date Type Department Care Team Description 02/25/2019 Clinical Communication Department of Lauro Jesus ([place] Orthopedic Surgery Steve Haskins M.D. side injection) in [place] [address] [address] [place], [place] [address] [place] [phone] [place], [place] [phone] (Work) [phone] Social History Tobacco Use Types Packs/Day Years [...] How often do you attend congregation or anabaptist More than 4 time s [...] side injection. Please advise, thank you. Josie [phone] documented in this encounter Plan of Treatment Not on filedocumented as of this encounter Visit Diagnoses Not on filedocumented in this encounter
--- OUTSIDE RECORDS SUMMARY | 2022-05-04 05:41 | XMS_ITS | Encounter Summary ---
:1970 Author Organization [facility] Address [address] [place] [address] Care Team Providers Name Role Phone Unavailable Primary Care Provider Unavailable Reason for Referral Outpatient (Routine) - Closed Specialty Diagnoses / Procedures Referred By Contact Refer red To Contact Diagnoses Spondylosis Cervical Without Myelopathy Gali Loza P.A.-C., [facility] Procedures FL Cervical Spine Medial Branch Nerve Block Bilateral M.S. [address] [place], [place] [address] Referral ID Status Reason Start Date Expiration Date Visits Requ ested Visits Authorized [id number] Closed 01/19/2018 01/19/2019 1 1 Reason for Visit Outpatient (Routine) - Closed Specialty Diagnoses / Procedures Referred By Contact Refer red To Contact Diagnoses Spondylosis Cervical Without Myelopathy Gali Loza P.A.-C., [facility] Procedures FL Cervical Spine Medial Branch Nerve Block Bilateral M.S. [address] [place], [place] [address] Referral ID Status Reason Start Date Expiration Date Visits Requ ested Visits Authorized [id number] Closed 01/19/2018 01/19/2019 1 1 Encounter Details Date Type Department Care Team Description 01/19/2018 Hospital Encounter Division of Pain Gali Loza ndylosis Cervical Medicine in [place], Without Myelopa thy [place], [place] M.S. [address] [place] [address] [phone] Social History Tobacco Use Types Packs/Day Years [...] How often do you attend hinduism or advent More than 4 time s [...] or slept in a long-term (including now)? Sex Assigned at Date Recorded [...] for pain. calcium carbonate 1,500 mg Take 1 tablet by 0 08/201512/07/2020 (600 mg calcium) tablet mouth 2 (two) times a day. One in AM, one in PM cyclobenzaprine HCl Take by mouth as 0 01/30/2017 08/11/2019 (CYCLOBENZAPRINE ORAL) needed. gabapentin (NEURONTIN) 100 Take 100 mg by [...] decision maker.: Consent for transfusion was obtained [place] protocol: All relevant documentation and testing were [...] decision maker.: ??Consent for transfusion was obtained [place] protocol: ??All relevant documentation and testin g [...]
--- OUTSIDE RECORDS SUMMARY | 2022-05-04 05:41 | XMS_ITS | Encounter Summary ---
:1970 Author Organization [facility] Address [address] [place] [address] Care Team Providers Name Role Phone Unavailable Primary Care Provider Unavailable Reason for Visit Reason Onset Date Comments outside medical records 12/25/2017 Communication 12/25/2017 Encounter Details Date Type Department Care Team Description 12/25/2017 Clinical Communication Department of [facility] Orthopedic Surgery Steve Haskins M.D. records; in [place] [address] [address] [facility] [address] [facility] [phone] [phone] Social History Tobacco Use Types Packs/Day Years [...] How often do you attend buddhism or congregational More than 4 time s [...]
--- OUTSIDE RECORDS SUMMARY | 2022-05-04 05:41 | XMS_ITS | Encounter Summary ---
:1970 Author Organization [facility] Address [address] [place] [address] Care Team Providers Name Role Phone Unavailable Primary Care Provider Unavailable Reason for Referral MRI/CAT/PET Scan (Routine) - Closed Specialty Diagnoses / Procedures Referred By Contact Refer red To Contact Radiology Diagnoses Pain Low Back Unspecified Hebert Pereyra III, [facility] Procedures CT Lumbar Spine without IV Contrast SD CT LUMBAR SPINE WO CNTRST HC CT LUMBAR SPINE WO CNTRST SD CT LUMBAR SPINE WO CNTRST M.D. [address] [place] [address] Referral ID Status Reason Start Date Expiration Date Visits Requ ested Visits Authorized [id number] Closed 11/16/2018 11/16/2019 1 1 Reason for Visit MRI/CAT/PET Scan (Routine) - Closed Specialty Diagnoses / Procedures Referred By Contact Refer red To Contact Radiology Diagnoses Pain Low Back Unspecified Hebert Pereyra III, [facility] Procedures CT Lumbar Spine without IV Contrast SD CT LUMBAR SPINE WO CNTRST HC CT LUMBAR SPINE WO CNTRST SD CT LUMBAR SPINE WO CNTRST M.D. [address] [place] [address] Referral ID Status Reason Start Date Expiration Date Visits Requ ested Visits Authorized [id number] Closed 11/16/2018 11/16/2019 1 1 Encounter Details Date Type Department Care Team Description 11/20/2018 Hospital Encounter Department of Hebert Pereyra Low Back Radiology, Juan C MCDONALD M.D. Building, in 200 [place], [place] 200 [facility] [address] [place], [place] [phone] (Wo rk) [phone] Social History Tobacco Use Types Packs/Day Years [...] How often do you attend mormonism or tenriism More than 4 time s per year [...] slept in a group home (including now)? Sex Assigned at Date [...] N/A Computed Tomography ARZ LOS, Neuroradiology [facility] Specimen (Source) Anatomical Collection Method Collection Time [...]
--- OUTSIDE RECORDS SUMMARY | 2022-05-04 05:41 | XMS_ITS | Encounter Summary ---
:1970 Author Organization [facility] Address [address] [place] [address] Care Team Providers Name Role Phone Unavailable Primary Care Provider Unavailable Reason for Visit Reason Onset Date Comments away 07/31-08/07 before surgery 07/29/2019 Encounter Details Date Type Department Care Team Description 07/29/2019 Clinical Communication Department of Wilson, [facility] 07/31-08/07 Orthopedic Surgery Steve Haskins M.D. before surgery in [place] [address] [address] [place], [place] [address] [place] [address] [place], [place] [phone] (Work) [phone] Social History Tobacco Use Types Packs/Day Years [...] How often do you attend jewish or mormonism More than 4 time s [...] APRN, TATY, M.S. - 07/29/2019 2:32 PM WEAVER WIRE LOOM Noted. She is taking appropriate medications and does not need to stop any. Will not be contact the patient as we have no instructions that cannot be at her listing visit. She can be reassured if she calls back. ER WIRE LOOM Telephone Encounter - Radha Llamas - 07/29/2019 [...] call if needed and then here at [place] for appointments after that for preop appts and her surgery 08/12. ER WIRE LOOM documented in this encounter Plan of Treatment Not on filedocumented as of this encounter Visit Diagnoses Not on filedocumented in this encounter
--- OUTSIDE RECORDS SUMMARY | 2022-05-04 05:41 | XMS_ITS | Encounter Summary ---
:1970 Author Organization [facility] Address [address] [place] [address] Care Team Providers Name Role Phone Unavailable Primary Care Provider Unavailable Reason for Referral Outpatient (Routine) - Closed Specialty Diagnoses / Procedures Referred By Contact Refer red To Contact Diagnoses Pain Low Back Unspecified Hebert Pereyra III, [place] Procedures FL Lumbar Spine Facet Injection Left [facility] AND [facility] TECHNICAL RADIOLOGY PLACEHOLDER Kathy [address] [place] [address] Referral ID Status Reason Start Date Expiration Date Visits Requ ested Visits Authorized [id number] Closed 11/16/2018 11/16/2019 1 1 Reason for Visit Outpatient (Routine) - Closed Specialty Diagnoses / Procedures Referred By Contact Refer red To Contact Diagnoses Pain Low Back Unspecified Hebert Pereyra III, [place] Procedures [place] Lumbar Spine Facet Injection Left [facility] AND [facility] TECHNICAL RADIOLOGY PLACEHOLDER Kathy [address] [place] [address] Referral ID Status Reason Start Date Expiration Date Visits Requ ested Visits Authorized [id number] Closed 11/16/2018 11/16/2019 1 1 Encounter Details Date Type Department Care Team Description 11/20/2018 Hospital Encounter Department of Yoanna Pereyra rd, III, M.D. [address] [place] [phone] Pain Low Back Radiology, Ruth Post M.D. [address] [place] [phone] [facility], in [place], [place] [address] [place] [phone] Social History Tobacco Use Types Packs/Day Years [...] or relatives? How often do you attend restoration or jehovah's witness More than 4 time s per year 11/30/2021 services? Do you belong to any clubs or organizations Yes 11/30/2021 such as restoration groups, unions, fraternal or athletic groups, or [...] slept in a senior care (including now)? Sex Assigned at Date Recorded [...] Volume Laterality 11/20/2018 1:17 PM CDT Impressions [id number] - 11/20/2018 1:26 PM CDT IMPRESSION: Fluoroscopically-guided facet joint injection. NR Narrative [id number] - 11/20/2018 1:26 PM CDT EXAM: FL [...] the procedure in the presence of the [facility] personnel, a procedural pause was conducted to [...] the procedure in the presence of the [facility] personnel, a procedural pause was conducted to [...] Organization Address City/State/ZIP Code Phon e Number [id number] NA documented in this encounter Visit Diagnoses [...]
--- OUTSIDE RECORDS SUMMARY | 2022-05-04 05:41 | XMS_ITS | Encounter Summary ---
:1970 Author Organization [facility] Address [address] [place] [address] Care Team Providers Name Role Phone Unavailable Primary Care Provider Unavailable Encounter Details Date Type Department Care Team Description 08/11/2019 Hospital Encounter Department of [facility] Exam Laboratory Medicine Steve Haskins M.D. and Pathology, [address] in [place], [place] [address] [place] [place] [address] [place], [place] (Work) [address] [phone] Social History Tobacco Use Types Packs/Day Years [...] How often do you attend anabaptism or adventist More than 4 time s [...] have completed or the highest Anika, MEd, MANAGER PRODUCT, SINDY) degree you have received? Sex Assigned [...] Ex am Results for this PCR AM APRON OPERATOR procedure are i n the results section. MRSA CULTURE Routine 08/11/2019 8:14 Results for this AM APRON OPERATOR procedure are i n the results section. documented in this encounter Results (ABNORMAL) Staphylococcus aureus PCR (08/11/2019 8:17 AM APRON OPERATOR) Component Value Ref Range Test Analysis Performed Pathologis t Method Time At Signature Staphylococcus Swab, Nares 08/12/2019 DTL aureus PCR 1:13 PM APRON OPERATOR Specimen Source Result Positive Not 08/12/2019 DTL (A) Applicable 1:13 PM APRON OPERATOR Comment: ----ADDITIONAL INFORMATION---- This test was developed and its performa nce characteristics determined by [facility] in a manner consistent with CLIA requirements. This test has not been cleared or approved by the [place] d and Drug Administration. Specimen Anatomical Collection Method Collection Time Receive d Time (Source) Location / / Volume Laterality Varies (Nares) 08/11/2019 8:17 AM 020 8:45 APRON OPERATOR AM APRON OPERATOR Steve Jesus M.D. LAB MICROBIOLOGY - GENERAL O RDABILIO Performing Organization Address City/State/ZIP Code Phon e Number [facility] - [address] [place] [address] [facility] MRSA Culture (08/11/2019 8:14 AM APRON OPERATOR) Analysis Performed At Patho logist Time Signature MRSA Culture No growth 08/13/2019 DTL of MRSA 1:53 PM APRON OPERATOR Specimen Anatomical Collection Method Collection Time Receive d Time (Source) Location / / Volume Laterality Nares 08/11/2019 8:14 AM 0 APRON OPERATOR 11:53 AM APRON OPERATOR Comment: Specimen Source Site: SWAB Steve Jesus M.D. LAB MICROBIOLOGY - GENERAL O RDERABLES Performing Organization Address City/State/ZIP Code Phon e Number [facility] - [address] [place] [address] [facility] documented in this encounter Visit Diagnoses Diagnosis Preoperative Exam documented in this encounter
--- OUTSIDE RECORDS SUMMARY | 2022-05-04 05:41 | XMS_ITS | Encounter Summary ---
:1970 Author Organization [facility] Address [address] [place] [address] Care Team Providers Name Role Phone Unavailable Primary Care Provider Unavailable Reason for Visit Reason Onset Date Comments Predetermination needs info 06/16/2019 Encounter Details Date Type Department Care Team Description 06/16/2019 Clinical Department of Adriel Jesus on needs Communication Orthopedic Surgery Steve Haskins M.D. info in [address] [facility] [address] [phone] Social History Tobacco Use Types Packs/Day Years [...] or relatives? How often do you attend episcopal or confucianist More than 4 time s per year 11/30/2021 services? Do you belong to any clubs or organizations Yes 11/30/2021 such as episcopal groups, unions, fraternal or athletic groups, or [...] APRN, CNS, M.S. - 06/22/2019 4:13 PM MUSHROOM SPAWN MAKER Documentation complete ROOM SPAWN MAKER Telephone Encounter - Moon Cuello - 06/21/2019 4:10 PM CST Called Pre-Auth. It can be from a NURSE CONSULTANT, or someone from his team including a resident. ROOM SPAWN MAKER Telephone Encounter - Cristal Awan APRN, TATY, M.S. - 06/21/2019 3:59 PM MUSHROOM SPAWN MAKER I have the information. Can you check with PreD to see if the note HAS to be Dr. Jesus or if it can be a member of the team? Thanks. (Note to self: L3-4) ROOM SPAWN MAKER Telephone Encounter - Radha Llamas - 06/16/2019 4:26 PM CST Images from the original note were not included. Ladi Lala Carol Ann ?? This patient's insurance, [facility], requires a Pre Determination review prior to [...] pre determination can be submitted. Thank you! ROOM SPAWN MAKER documented in this encounter Plan of Treatment Not on filedocumented as of this encounter Visit Diagnoses Not on filedocumented in this encounter
--- OUTSIDE RECORDS SUMMARY | 2022-05-04 05:41 | XMS_ITS | Encounter Summary ---
:1970 Author Organization [facility] Address [address] [place] [address] Care Team Providers Name Role Phone Unavailable Primary Care Provider Unavailable Reason for Visit Outpatient (Routine) - Closed Specialty Diagnoses / Procedures Referred By Contact Refer red To Contact Pain Medicine Diagnoses Pain Back Steve Jesus M.D. [place] [address] [place] [phone] Referral ID Status Reason Start Date Expiration Date Visits Requ ested Visits Authorized [id number] Closed 10/05/2018 10/05/2019 1 1 Encounter Details Date Type Department Care Team Description 11/05/2018 Office Visit Division of Pain Romero Baker P.A.-Ana., M.S. 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 [address] [place] [phone] Pain Back; [place], Spondylolisthes is Lumbar Region; [place] Fusion Lumbar Spine Status P ost; [address] [place] [address] [place] [phone] Social History Tobacco Use Types Packs/Day Years [...] or relatives? How often do you attend temple or bahai More than 4 time s per year 11/30/2021 services? Do you belong to any clubs or organizations Yes 11/30/2021 such as temple groups, unions, fraternal or athletic groups, or [...] a fusion at L5-S1 when [facility]. Her back and lower extremity pain has been worsening over the past 1 year. She has 50% low back pain and 50% left lower extremity pain. She was seen at [facility] bya neurosurgeon and offered an anterior/posterior fusion [...] left L5-S1 transforaminal epidural steroid injection at [facility] in the city is which [...] I have discussed these findings with the COLTNO and we have jointly formulated our impressions and plan of care. Please see Ms. Solorzano's consult note for full details of our visit. Patient has exhausted all conventional treatment modalities to date for her chronic low back and lower extremity pain. She rightfully is trying to prevent spine surgery unless absolutely indicated. Shehas a spine surgeon the [facility] that wants to operate, but we shared [...]
--- OUTSIDE RECORDS SUMMARY | 2022-05-04 05:41 | XMS_ITS | Encounter Summary ---
:1970 Author Organization [facility] Address [address] [place] [address] Care Team Providers Name Role Phone Unavailable Primary Care Provider Unavailable Reason for Visit Reason Onset Date Comments Follow-up 10/05/2018 Encounter Details Date Type Department Care Team Description 10/05/2018 Clinical Communication Department of Steve Jesus Follow-up Orthopedic Surgery ashley Haskins M.D. [place], [place] [address] [facility] [address] [place] [phone] Social History Tobacco Use Types Packs/Day Years [...] How often do you attend sikh or worship More than 4 time s [...] or slept in a [facility] (including now)? Sex Assigned at Date Recorded Female 03/04/2018 7:21 PM CDT documented as of this encounter Miscellaneous Notes Telephone Encounter - Reyna Sanchez R.N. - 10/08/2018 12:39 PM BUFFING MACHINE OPERATOR SEMIAUTOMATIC What ever works for the patient, but have our appointment after she see's the pain clinic. Thank you ING MACHINE OPERATOR SEMIAUTOMATIC Telephone Encounter - Pedrito Orozco - 10/08/2018 10:21 AM CST There is not any days that Pain Clinic has availability when Dr. Jesus is in clinic through theend of December, does patient absolutely have to be seen on the same day as Pain Clinic or can it be two separate days with Pain Clinic first? ING MACHINE OPERATOR SEMIAUTOMATIC Telephone Encounter - Reyna Sanchez R.N. - 10/05/2018 3:08 PM BUFFING MACHINE OPERATOR SEMIAUTOMATIC Orders are in. ING MACHINE OPERATOR SEMIAUTOMATIC Telephone Encounter - Steve Jesus M.D. - 10/05/2018 2:27 PM BUFFING MACHINE OPERATOR SEMIAUTOMATIC Ok to return but do it same day as Pain Clinic consult. ING MACHINE OPERATOR SEMIAUTOMATIC Telephone Encounter - Pedrito Orozco - 10/05/2018 9:58 AM CST Patient calls and states she saw a physician at [facility] in [place] and they recommended that patient's next step [...] to schedule, if so any additional testing? ING MACHINE OPERATOR SEMIAUTOMATIC documented in this encounter Plan of Treatment Not on filedocumented as of this encounter Visit Diagnoses Not on filedocumented in this encounter
--- OUTSIDE RECORDS SUMMARY | 2022-05-04 05:41 | XMS_ITS | Encounter Summary ---
:1970 Author Organization [facility] Address [address] [place] [address] Care Team Providers Name Role Phone Unavailable Primary Care Provider Unavailable Reason for Referral Outpatient (Routine) - Closed Specialty Diagnoses / Procedures Referred By Contact Refer red To Contact Diagnoses Pain Back Steve Jesus M.D. [place] Procedures [place] Lumbar Spine Facet Injection Bilateral [facility] AND [facility] TECHNICAL RADIOLOGY PLACEHOLDER [place] INJ FACET JT LUMB/SAC 1 LVL [address] [place] [address] Referral ID Status Reason Start Date Expiration Date Visits Requ ested Visits Authorized [id number] Closed 02/25/2019 02/25/2020 1 1 Encounter Details Date Type Department Care Team Description 02/25/2019 Orders Only Department of Daniel, Reyna Pain Zoila k (Primary Dx) Orthopedic Surgery in A, R.N. [place], [place] [address] [facility] [address] [place] [phone] Social History Tobacco Use Types Packs/Day Years [...] How often do you attend methodist or yazidism More than 4 time s per year [...] Volume Laterality 02/25/2019 2:34 PM CDT Impressions [id number] - 02/25/2019 2:54 PM CDT Fluoroscopically-guided facet joint injections. NR Narrative [id number] - 02/25/2019 2:54 PM CDT EXAM: FL [...] the procedure in the presence of the [facility] personnel, a procedural pause was conducted to [...] the procedure in the presence of the [facility] personnel, a procedural pause was conducted to [...] Organization Address City/State/ZIP Code Phon e Number [id number] NA documented in this encounter Visit Diagnoses Diagnosis Pain Back Pain Back - Primary documented in this encounter
--- OUTSIDE RECORDS SUMMARY | 2022-05-04 05:41 | XMS_ITS | Encounter Summary ---
:1970 Author Organization [facility] Address [address] [place] [address] Care Team Providers Name Role Phone Unavailable [...] How often do you attend jain or anabaptist More than 4 time s [...]
--- OUTSIDE RECORDS SUMMARY | 2022-05-04 05:41 | XMS_ITS | Encounter Summary ---
:1970 Author Organization [facility] Address [address] [place] [address] Care Team Providers Name Role Phone Unavailable Primary Care Provider Unavailable Encounter Details Date Type Department Care Team Description 01/19/2018 Orders Only Division of Pain Medicine Gali Baker in [facility] maru [place], M.S. [address] [facility] [address] [place] [address] [place], [place] [phone] (Wo rk) Social History Tobacco Use Types [...] How often do you attend voodoo or congregational More than 4 time s [...]
--- OUTSIDE RECORDS SUMMARY | 2022-05-04 05:41 | XMS_ITS | Encounter Summary ---
:[address] [facility] Address [address] [place] [address] Care Team Providers Name Role Phone Unavailable Primary Care Provider Unavailable Reason for Visit Reason Onset Date Comments Follow-up 01/19/2018 Encounter Details Date Type Department Care Team Description 01/19/2018 Clinical Communication Division of Pain Medicine in Follow-up [place], [place] [address] [place] [address] Social History Tobacco Use Types Packs/Day [...] or relatives? How often do you attend alevism or baptist More than 4 time s per year 11/30/2021 services? Do you belong to any clubs or organizations Yes 11/30/2021 such as alevism groups, unions, fraternal or athletic groups, or [...] or slept in a longterm (including now)? Sex Assigned at Date Recorded [...]
--- OUTSIDE RECORDS SUMMARY | 2022-05-04 05:41 | XMS_ITS | Encounter Summary ---
:1970 Author Organization [facility] Address [address] [place] [address] Care Team Providers Name Role Phone Unavailable [...] Expiration Date Visits Requ ested Visits Authorized [id number] 1 1 Encounter Details Date Type Department Care Team Description 08/12/2019 Surgery RST ROMB MAIN OR Steve Jesus Posterior lumbar [address] Kathy Hsakins decompression, [place] [address] 200 [facility] current fusion up to [phone] [place], [place] L3-4, [place] [phone] indicated. Social History Tobacco Use Types Packs/Day [...] How often do you attend scientology or caodaism More than 4 time s [...] have completed or the highest Anika, MEd, RIDE ATTENDANT, SINDY) degree you have received? Sex Assigned at Date Recorded Female 03/04/2018 7:21 PM CDT documented as of this encounter Last Filed Vital Signs Vital Sign Reading Time Taken Comments Blood Pressure 128/84 08/12/2019 2:30 PM STULL HEWER Pulse 91 08/12/2019 2:45 PM STULL HEWER Temperature 36.3 ??C (97.3 ??F) 08/12/2019 1:50 PM STULL HEWER Respiratory Rate 15 08/12/2019 1:50 PM STULL HEWER Oxygen Saturation 93% 08/12/2019 2:45 PM STULL HEWER Inhaled Oxygen Concentration - - Weight 61.4 kg (135 lb 5.8 oz) 08/12/2019 6:45 AM STULL HEWER Height 154 cm (5' 0.63) 08/12/2019 6:45 AM STULL HEWER Body Mass Index 25.89 08/12/2019 6:45 AM STULL HEWER documented in this encounter Discharge Summaries Art [...] may contact Dr. Jesus's service through the [facility] hydraulic bull riveter operator at . This number should not [...] post the surgery date or by your [facility] physician or Nurse Practitioner or Physician Cook Tortilla. Leave the operative dressing in place for [...] indicated. Steve Jesus M.D.Braig, Zachary V., M.D. [facility] OR Josie Booker was taken to the [...] were provided to the patient and caregiver(s). L HEWER documented in this encounter Discharge Instructions AttachmentsThe following attachments cannot be sent through Care Everywhere. Tramadol (By mouth) (Egyptian)documented in this encounter Medications at Time of [...] CST PROGRESS NOTE Orthopedic Service: Dr. Jesus [facility] Admission Day: 08/12/2019 Hospital Day: 1 [...] pm, please page [place] service at [phone] For urgent matters from 6 pm until 6 am, please page [facility] at [place] [facility] [place] [phone] L HEWER Art Albert M.D. - 08/12/2019 2:02 PM [...] 6 am until 6 pm, please page [facility] at [phone] For urgent matters from 6 pm until 6 am, please page [facility] at [place] [place] [phone] L HEWER documented in this encounter Consult Notes Dillon Manriquez, O.T. - 08/13/2019 2:19 PM CST Occupational Therapy Acute Hospital Inpatient Evaluation/Treatment SUBJECTIVE Patient's Name: Josie Booker Referring/Attending Provider: Steve Jesus M.D. Medical Diagnosis: Stenosis Spinal [M48.00] Stenosis Spinal [M48.00] Reason for Referral: Occupational Therapy Evaluation and Treatment PT/OT evaluation and treatment; orthopedic rehab; spine-no neuro deficits Onset Date: 08/12/19 Payor: Facio / Plan: [facility] [place] / Product Type: PPO / [...] proceed as indicated.;Surgeon: Steve Jesus M.D.; Location: [facility] OR ??? OTHER SURGICAL HISTORY Shoulder surgery October 2017 ??? SPINE SURGERY 1984 (L5/S1 fusion) and 2009 C6/C7 fusion ??? 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 - 08/13/2019 11:43 AM CSTAssociated Order(s): IP CONSULT TO CARE MANAGEMENT Discharge Planning Assessment SUBJECTIVE Referral Data Referral Source: Provider/Service Referral Name: Cameron Ruiz Referral Reason: Discharge Planning Discharge Planning: Early screen discharge Who was present during the interview?: Patient, Spouse Land Agent Services Used: No Patient Information Primary Caregiver: Self Accompanied by/Relationship: Juan [place]/Spouse Restorationism/Cultural Factors: [place] Diet/Texture: By mouth Legal Information Legal Decision Maker: Self Advance Directives: Power of Machine Puller Over for health care, Power of Machine Puller Over for finance Power of Machine Puller Over for Health Care Agent Name: Juan Booker Power of Machine Puller Over for Health Agent Contact Info: [phone] Power of Machine Puller Over for Finance Agent Name: Juan Jhony Power of Machine Puller Over for Finance Agent Contact Info: [phone] OBJECTIVE Functional Status (ADLs) Functional Status: Independent Assistive Devices: Eyeglasses Level of Assistance: Independent Dressing: Independent Feeding: Independent Bathing: Independent Grooming: Independent Toileting: Independent Transfer to/from Bed, Chair Etc.: Independent Mobility: Independent Meal Prep: Independent Medication Setup/Administration: Independent Telephone Use: Independent Housekeeping: Independent Shopping: Independent Managing Finances: Independent Behavior: Oriented Communication: Can write, Talks, Understands speaking, Understands Egyptian, Reads Environmental Supports Home Environment: House Anticipated [...] going needs. I reviewed my role of Literary Agent. Patient reviewed her current hospitalization and appears to have understanding, insight and competence of her needs. Patient reviewed her home environment and support system; reviewing that her primary home health care provider - self and spouse will [...] Signed by: Rebecca Dunaway M.S., REarlN. 08/13/2019 L HEWER Megan Copoer P.T. - 08/13/2019 11:28 AM CST Physical Therapy Inpatient Evaluation/Treatment SUBJECTIVE Patient's Name: Josie Booker Referring/Attending Provider: Steve Jesus M.D. Medical Diagnosis: Stenosis Spinal [M48.00] Stenosis Spinal [M48.00] Reason for Referral: PT Evaluate and Treat PT/OT evaluation and treatment; orthopedic rehab; spine-no neuro deficits Onset Date: 08/12/19 Payor: Facio / Plan: [facility] [place] / Product Type: PPO / [...] proceed as indicated.;Surgeon: Steve Jesus M.D.; Location: [facility] OR ??? OTHER SURGICAL HISTORY Shoulder surgery October 2017 ??? SPINE SURGERY 1984 (L5/S1 fusion) and 2009 C6/C7 fusion ??? TONSILLECTOMY 1978 History of Present Illness: s/p posterior lumbar decompression and extension of previous L4-S1 fusion up to L3 Prior Function / Occupational Profile Level of [place]: Independent with ADLs and functional transfers Lives [...] needs met and questions answered. Outcome Measures -[facility] Inpatient Short Form: AM-PAC Mobility: How much [...] CMS 0-100% Score: 46.58 % Basic Mobility [facility] Modifier: GENESIS Cooper P.T. L HEWER documented in this encounter Nursing Notes Lino [...] for RN or MD at this time. L HEWER Adina Pandya R.N. - 08/14/2019 3:39 AM [...] with minimal assistance. Will continue to monitor. L HEWER Farhad Garcia R.N. - 08/13/2019 3:02 PM [...] half w/ walker. Adequate intake and output. L HEWER Geena Alex R.N. - 08/13/2019 5:03 AM [...] Skin/Tissue integrity maintained or improved Outcome: Progressing L HEWER Lino Ragland R.N. - 08/12/2019 6:13 PM CST Shift Goals: Clinical Goals for the Shift: adequate pain control Identify possible barriers to meeting goals/advancing plan of care: none End of Shift Summary: Pain tolerable with cold pack. Patient declines to take opioid medication unless she has higher pain. For activities, please refer to the service's order. L HEWER documented in this encounter OR Notes Op Note - Steve Jesus M.D. - 08/12/2019 8:51 AM CST FULL OP NOTE Procedure(s): Posterior lumbar decompression, Extend current fusion up to L3-4, proceed as indicated. Surgeon(s) and Role: * Steve Jesus M.D. - Primary * Art Albert M.D. - Superintendent Concrete Mixing Plant Anesthesia Type General Pre-operative Diagnosis Stenosis Spinal [...] laterally over the decorticated spine with a [facility] bone bank femoral head. Retractors were [...] Implant Name Type Inv. Item Serial No. Assembler Arranger Lot No. LRB No. Used Action ALLOGENIC, FEMORAL HEAD - [id number] - [id number] Bone or Tissue ALLOGENIC, FEMORAL HEAD [id number] [facility] [id number] Posterior 1 Implanted SPN SCRW EXP SLD 6.35 7X45 - SNA - [id number] Hardware e.g. pins/screws/rods SPN SCRW EXP SLD 6.35 7X45 NA Depuy Synthes NA Posterior 4 Implanted SPN SCRW EXP SLD 6.35 8X55 - SNA - [id number] Hardware e.g. pins/screws/rods SPN SCRW EXP SLD 6.35 8X55 NA Depuy Synthes NA Posterior [address] EXP SGL MONO 6.35 - SNA - [id number] Hardware e.g. pins/screws/rods SPN SCRW ST EXP SGL MONO 6.35 NA Depuy Synthes NA Posterior 5 Implanted SPN YARY EXP TN LD 6.35X45 - SNA - [id number] Hardware e.g. pins/screws/rods SPN YARY EXP TN LD 6.35X45 NA Depuy Synthes NA Posterior 1 Implanted SPN YARY EXP TN LD 6.35X65 - SNA - [id number] Hardware e.g. pins/screws/rods SPN YARY EXP TN LD 6.35X65 NA Depuy Synthes NA Posterior 1 Implanted Steve Jesus M.D. L HEWER Brief Op Note - Art Albert M.D. - 08/12/2019 8:51 AM CST BRIEF OP NOTE Procedure(s): Posterior lumbar decompression, Extend current fusion up to L3-4, proceed as indicated. Surgeon(s) and Role: * Steve Jesus M.D. - Primary * Art Albert M.D. - Superintendent Concrete Mixing Plant Anesthesia Type General Pre-operative Diagnosis Stenosis Spinal [...] Implant Name Type Inv. Item Serial No. Assembler Arranger Lot No. LRB No. Used Action ALLOGENIC, FEMORAL HEAD - [id number] - [id number] Bone or Tissue ALLOGENIC, FEMORAL HEAD [id number] [facility] [id number] Posterior 1 Implanted SPN SCRW EXP SLD 6.35 7X45 - SNA - [id number] Hardware e.g. pins/screws/rods SPN SCRW EXP SLD 6.35 7X45 NA Depuy Synthes NA Posterior 4 Implanted SPN SCRW EXP SLD 6.35 8X55 - SNA - [id number] Hardware e.g. pins/screws/rods SPN SCRW EXP SLD 6.35 8X55 NA Depuy Synthes NA Posterior [address] EXP SGL MONO 6.35 - SNA - [id number] Hardware e.g. pins/screws/rods SPN SCRW ST EXP SGL MONO 6.35 NA Depuy Synthes NA Posterior 5 Implanted SPN YARY EXP TN LD 6.35X45 - SNA - [id number] Hardware e.g. pins/screws/rods SPN YARY EXP TN LD 6.35X45 NA Depuy Synthes NA Posterior 1 Implanted SPN YARY EXP TN LD 6.35X65 - SNA - [id number] Hardware e.g. pins/screws/rods SPN YARY EXP TN LD 6.35X65 NA Depuy Synthes NA Posterior 1 Implanted Art Albert M.D. L HEWER documented in this encounter Miscellaneous Notes Hospital Course - Art Albert M.D. - 08/14/2019 7:41 AM CST Surgery Information This Encounter Past Procedures (08/14/2018 to Today) Date Procedures Providers Location 08/12/2019 Posterior lumbar decompression, Extend current fusion up to L3-4, proceed as indicated. Steve Jesus M.D.Braig, Zachary V., M.D. [facility] OR Josie Booker was taken to the [...] and any other co-managing teams dated 08/14/2019. L HEWER documented in this encounter Plan of Treatment Scheduled Referrals Name Type Priority Associated Order Schedule Diagnoses Orthopedic Surgery Outpatient Referral Routine Ex pected: office visit 12/11/2019 (clinic) (Approximate), Expires: 08/12/2022 documented as of this encounter Procedures Procedure Name Priority Date/Time Associated Comments Diagnosis FL FLUORO LESS THAN RAD - Routine 08/12/2019 12:14 Res ults for 1 HOUR (most inpatients PM STULL HEWER this proced ure and all are in the outpatients) results section. DECOMPRESSION 08/12/2019 7:09 Stenosis Spinal POSTERIOR LUMBAR AM STULL HEWER WITH FUSION IONM - EMG Routine 08/12/2019 7:03 Results for AM STULL HEWER this procedure are in the results section. [...] Less Than 1 Hour (08/12/2019 12:14 PM STULL HEWER) Specimen (Source) Anatomical Location Collection Method / [...] RST IONM - EMG (08/12/2019 7:03 AM STULL HEWER) Specimen (Source) Anatomical Collection Method Collection Time Re ceived Time Location / / Volume Laterality 08/12/2019 10:00 AM STULL HEWER Narrative [facility] EMG - 08/12/2019 12:26 PM STULL HEWER 12-Aug-2019 ? Intraoperative Monitoring ? Final Report Study Number: 7 EMG Tool Rental Technician: Oscar Choi. 127 or [phone] Referred by: STEVE JESUS (127 or [phone]) Referred for: Referral Code: ?1959 RX: 1959 [...] surg ical suite. Cameron Choi (127 or [phone])/[facility] Surgery ? Staff ?Minutes Tool Rental Technician 114 ? Toe Stripper 114 ? This interpretation has been electron ically signed: Oscar Choi, , PhD at 08/12/2019 12:25:12 PM STULL HEWER Procedure Note Alex Choi D.O., Ph.D. - 020 12-Aug-2019 Intraoperative Monitoring Fi nal Report Study Number: 7 EMG Tool Rental Technician: Oscar Choi. 127 or [phone] Referred by: STEVE JESUS (127 or [phone]) Referred for: Referral Code: 8 RX: 8 [...] surg ical suite. Cameron Choi (127 or [phone])/[facility] Surgery Staff Minutes Tool Rental Technician 114 Toe Stripper 114 This interpretation has been electron ically signed: Oscar Choi DO, PhD at 08/12/2019 12:25:12 PM STULL HEWER Steve Jesus M.D. NEUROLOGY ORDERABLES Performing Organization [...] tablet 1,000 mg Given 08/14/2019 12:37 PM STULL HEWER 1,00 0 mg (TYLENOL) 1,000 mg, oral, Every 6 hours, First dose on Yadira 08/12/19 at 1930 Given 08/14/2019 6:40 AM STULL HEWER 1,000 mg Given 08/14/2019 1:33 AM STULL HEWER 1,000 mg bisacodyl suppository 10 mg (DULCOLAX) Given 08/14/2019 1:34 AM STULL HEWER 10 mg 10 mg, rectal, Daily PRN, constipation, Starting on Yadira 08/12/19 at 1343, Ordered sequence of administration: polyethylene glycol, then bisacodyl until BM achieved. bupivacaine liposome (PF) 20 mL, bupivacaine Given 04/2020 11:50 AM STULL HEWER 50 mL 30 mL 50 mL injection As needed, Starting on Yadira 08/12/19 at 1150, Intra-Op cyclobenzaprine tablet 5 mg (FLEXERIL) Given 08/14/2019 3:31 AM STULL HEWER 5 mg 5 mg, oral, 3 times daily PRN, muscle spasms, Starting on Fri08/13/19 at 0620 Given 08/13/2019 4:14 PM STULL HEWER 5 mg Given 08/13/2019 9:34 AM STULL HEWER 5 mg droperidol injection 0.625 mg (INAPSINE) Given 08/12/2019 3:32 PM STULL HEWER 0.625 mg 0.625 mg, intravenous, Every 6 [...] microfibrillar collagen hemostat Given 08/12/2019 9:32 AM STULL HEWER 1 application Back powder (AVITENE FLOUR) As needed, Starting on Yadira 08/12/19 at 0932, Intra-Op ondansetron (PF) injection 4 mg (ZOFRAN) Given 08/12/2019 7:09 PM STULL HEWER 4 mg 4 mg, intravenous, Every 6 hours PRN, nausea, vomiting, Starting on Yadira 08/12/19 at 1730, For 48 hours, Reassess for nausea or vomiting after at least 10 minutes. If nausea or vomiting persists administer next ordered antiemetic medications (order for antiemetic medication administration ondansetron then droperidol then promethazine). povidone iodine 0.25% in NaCl 0.9% Given 08/12/2019 10:54 AM STULL HEWER 150 mL irrigation solution irrigation, Once in surgery, OR use only, Starting on Yadira 08/12/19 at 0742, For 1 dose, Intra-Op, IRRIGATION USE ONLY promethazine injection 6.25 mg (PHENERGA N) Given 08/14/2019 1:34 AM STULL HEWER 6.25 mg 6.25 mg, intravenous, Every 6 hours PRN, nausea, vomiting, Starting on Yadira 08/12/19 at 1343, For 48 hours, RASS must be -2 or higher to administer. Reassess for nausea/vomiting after at least 10 minutes. If nausea or vomiting persists administer next ordered antiemetic medications (order for antiemetic medication administration ondansetron then droperidol then promethazine). Given 08/13/2019 7:26 PM STULL HEWER 6.25 mg Given 08/12/2019 9:58 PM STULL HEWER 6.25 mg sennosides-docusate sodium 8.6-50 mg per Given 08/14/2019 9:15 A M STULL HEWER 1 tablet tablet 1 tablet (SENOKOT-S) 1 tablet, oral, 2 times daily, First dose on Yadira 08/12/19 at 2100, Do not give if patient has diarrhea. Given 08/13/2019 8:23 PM STULL HEWER 1 tablet Given 08/13/2019 8:25 AM STULL HEWER 1 tablet traMADol tablet 100 mg (ULTRAM) 100 mg, oral, Every 6 hours PRN, moderat e pain or score 4-6 of 10, severe pain or score 7-10 of 10, Starting on Yadira 1/9/20 at 1343, First line therapy or for pain greater than comfort goal (not to exceed 400 mg in 24 hours). traMADol tablet 50 mg (ULTRAM) Given 08/13/2019 7:26 PM STULL HEWER 50 mg 50 mg, oral, Every 6 hours PRN, mild pain or score 1-3 of 10, Starting on Yadira 08/12/19 at 1343, First line therapy documented in this encounter Active and Recently Administered Medications Times are shown in STULL HEWER. Scheduled Medication Order 08/12/2019 08/13/2019 08/14/2019 acetaminophen [...] 0824 (Given - Provider: Bishop Gomez APRN, COMPLIANCE ENGINEER PRODUCTS)1124 (Given - Provider: Breonna Doll APRN, COMPLIANCE ENGINEER PRODUCTS) 2,000 mg (rounded from 1,475 mg = [...] Provider: Farhad Garcia, R.N.)1614 (Given - Provider: Hrasha Frances R.N.) 0331 (Given - Provider: Adina [...] 804 (New Bag - Provider: Bishop Gomez, SUPERVISOR GLUING, COMPLIANCE ENGINEER PRODUCTS) 600 mg (rounded from 590 mg = [...]
--- OUTSIDE RECORDS SUMMARY | 2022-05-04 05:41 | XMS_ITS | Encounter Summary ---
:1970 Author Organization [facility] Address [address] [place] [address] Care Team Providers Name Role Phone Unavailable Primary Care Provider Unavailable Reason for Visit Outpatient (Routine) - Closed Specialty Diagnoses / Procedures Referred By Contact Refer red To Contact Orthopedic Surgery Hebert Pereyra III, [place] [address] [place] M.D. [address] [place] [address] Referral ID Status Reason Start Date Expiration Date Visits Requ ested Visits Authorized [id number] Closed 11/16/2018 11/16/2019 1 1 Encounter Details Date Type Department Care Team Description 11/20/2018 Office Visit Department of [place], Stenosis Spina l (Primary Dx); Orthopedic Surgery Steve Haskins M.D. Primary Osteoarthritis Lumbar Spine; in [address] Radiculopathy Lumbosacral; [place], [place] Spondylolisthesis Acquired; [address] [place] [phone] Fusion Lumbar Spine Status Post [place], [place] [phone] (Work) [phone] Social History Tobacco Use Types Packs/Day Years [...] How often do you attend lutheran or gnosticism More than 4 time s [...] reasonable for her to continue with an liay-ggl-twngudg NSAID to help with pain. We would [...]
--- OUTSIDE RECORDS SUMMARY | 2022-05-04 05:41 | XMS_ITS | Encounter Summary ---
:1970 Author Organization [facility] Address [address] [place] [address] Care Team Providers Name Role Phone Unavailable Primary Care Provider Unavailable Encounter Details Date Type Department Care Team Description 08/11/2019 Education Department of Orthopedic Steve Sandy M.D. [address] [place] [address] Preoperative Exam Surgery in [facility], Tam Varner R.N. [address] [place] [address] [place] [address] [place] [address] Social History Tobacco Use Types Packs/Day [...] How often do you attend congregation or buddhism More than 4 time s [...] have completed or the highest Anika, MEd, LIDDER, SINDY) degree you have received? Sex Assigned at Date Recorded Female 03/04/2018 7:21 PM CDT documented as of this encounter Progress Notes Tam Dan, R.N. - 08/11/2019 4:00 PM CST Spine Surgery ([id number]) given. Preventing Falls discussed. Pain Scale discussed. Peripheral nerve block education provided. New NPO guideline provided. Total Joint Replacement Brito Messages ([id number]) provided. Advance Directives ([id number]) provided. Anesthesia Options ([id number]) given. Patient and spouse attended orthopedic pre-operative class in preparation for Spine surgery on 08/12/[address] Jesus. Patient plans on discharging to Home Self Care. Patient currently has/owns no gait aides and was advised to not purchase any gait aides until after surgery. All questions answered; Patient verbalized understanding. 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
--- OUTSIDE RECORDS SUMMARY | 2022-05-04 05:41 | XMS_ITS | Encounter Summary ---
:1970 Author Organization [facility] Address [address] [place] [address] Care Team Providers Name Role Phone Unavailable Primary Care Provider Unavailable Reason for Visit Reason Onset Date Comments new orders 01/16/2018 Encounter Details Date Type Department Care Team Description 01/16/2018 Clinical Communication Department of Kwaku Jarvis new orders Orthopedic Surgery in .[place], [place] [address] [facility] [address] [place] [phone] Social History Tobacco Use Types Packs/Day Years [...] How often do you attend synagogue or spiritism More than 4 time s [...] for MVB-RFA did not transfer over from [facility]. Needing new orders that were originally sent by Dr Bennett. Jaleesa [phone] Thanks Rosey documented in this encounter Plan of Treatment Not on filedocumented as of this encounter Visit Diagnoses Diagnosis Pain Postoperative - Primary documented in this encounter
--- OUTSIDE RECORDS SUMMARY | 2022-05-04 05:41 | XMS_ITS | Encounter Summary ---
:[address] [facility] Address [address] [place] [address] Care Team Providers Name Role Phone Unavailable Primary Care Provider Unavailable Reason for Referral Outpatient (Routine) - Closed Specialty Diagnoses / Procedures Referred By Contact Refer red To Contact Diagnoses Preoperative Exam Steve Jesus M.D. [facility] Procedures BMD Bone Density Spine Hips [address] [place] [address] Referral ID Status Reason Start Date Expiration Date Visits Requ ested Visits Authorized [id number] Closed 04/21/2019 04/20/2020 1 1 OYMENT LEGAL ASSISTANT Reason for Visit Outpatient (Routine) - Closed Specialty Diagnoses / Procedures Referred By Contact Refer red To Contact Diagnoses Preoperative Exam Steve Jesus M.D. [facility] Procedures BMD Bone Density Spine Hips [address] [place] [address] Referral ID Status Reason Start Date Expiration Date Visits Requ ested Visits Authorized [id number] Closed 04/21/2019 04/20/2020 1 1 Encounter Details Date Type Department Care Team Description 08/11/2019 Hospital Encounter Department of Karly Jesusoper юлия Exam Radiology, Juan C Haskins M.D. [facility], in [address] [place], [place] [address] [facility] [place] [address] [place], [place] [phone] (Work) [phone] Social History Tobacco Use Types Packs/Day Years [...] How often do you attend jainism or spiritism More than 4 time s [...] have completed or the highest Anika, MEd, CARE TRANSITIONS NURSE, SINDY) degree you have received? Sex [...] for this SPINE HIPS (most inpatients AM EMPLOYMENT LEGAL ASSISTANT procedure a re in and all the results outpatients) section. documented in this encounter Results BMD Bone Density Spine Hips (08/11/2019 8:59 AM EMPLOYMENT LEGAL ASSISTANT) Anatomical Region Laterality Modality Hip, Lumbar Spine, Nuclear Medicine RST LOS, N/A Radiographic Imaging Musculoskeletal ARZ LOS, Muskuloskeletal FLA LOS Specimen (Source) Anatomical Collection Method Collection Time Re ceived Time Location / / Volume Laterality 08/11/2019 12:57 PM EMPLOYMENT LEGAL ASSISTANT Impressions 08/11/2019 12:57 PM EMPLOYMENT LEGAL ASSISTANT Osteopenia Narrative 08/11/2019 12:57 PM EMPLOYMENT LEGAL ASSISTANT EXAM: ??BMD BONE DENSITY SPINE HIPS FINDINGS: [...] image stored in the BMD study in [employer] the calculated ten year probability of fracture [...] including images and graphs, is available in [place]. In the absence of other causes of [...] evidence of skeletal fragility in the [facility]. Based on the bone density [...]
--- OUTSIDE RECORDS SUMMARY | 2022-05-04 05:41 | XMS_ITS | Encounter Summary ---
:1970 Author Organization [facility] Address [address] [place] [address] Care Team Providers Name Role Phone Unavailable Primary Care Provider Unavailable Reason for Referral MRI/CAT/PET Scan (Routine) - Closed Specialty Diagnoses / Procedures Referred By Contact Refer red To Contact Radiology Diagnoses Pain Low Back Unspecified Hebert Pereyra III Coch[facility] Autumn Procedures CT Lumbar Spine without IV Contrast CO CT LUMBAR SPINE WO CNTRST HC CT LUMBAR SPINE WO CNTRST CO CT LUMBAR SPINE WO CNTRST M.D. [address] [place], [place] [address] Referral ID Status Reason Start Date Expiration Date Visits Requ ested Visits Authorized [id number] Closed 11/16/2018 11/16/2019 1 1 Outpatient (Routine) - Closed Specialty Diagnoses / Procedures Referred By Contact Refer red To Contact Orthopedic Surgery Hebert Pereyra III [facility] Autumn Chavez [address] [place] [address] Referral ID Status Reason Start Date Expiration Date Visits Requ ested Visits Authorized [id number] Closed 11/16/2018 11/16/2019 1 1 Scheduling Instructions Please schedule on same day as CT and fa cet injection. Please schedule 2-3 hours after facet injection so we can assess r elief. Outpatient (Routine) - Closed Specialty Diagnoses / Procedures Referred By Contact Refer red To Contact Diagnoses Pain Low Back Unspecified Hebert Pereyra III [facility] Procedures FL Lumbar Spine Facet Injection Left [facility] PLACE[facility] TECHNICAL RADIOLOGY PLACEHOLDER Kathy [address] [place] [phone] Referral ID Status Reason Start Date Expiration Date Visits Requ ested Visits Authorized [id number] Closed 11/16/2018 11/16/2019 1 1 Reason for Visit Outpatient (Routine) - Closed Specialty Diagnoses / Procedures Referred By Contact Refer red To Contact Orthopedic Surgery Steve Jesus Cochran Autumn Chavez [address] [place] [address] Referral ID Status Reason Start Date Expiration Date Visits Requ ested Visits Authorized [id number] Closed 10/05/2018 10/05/2019 1 1 Encounter Details Date Type Department Care Team Description 11/16/2018 Office Visit Department of [place], Stenosis Spina l (Primary Dx); Orthopedic Surgery Steve Haskins M.D. Pain Low Back; in [address] Primary Osteoarthritis Lumbar Spine; [place], [place] Radiculopathy Lumbosacral; [address] [place] [address] Spondylolisthesis Acquired; [place], [place] [phone] [place] [phone] (Work) [phone] Social History Tobacco Use Types Packs/Day Years [...] or relatives? How often do you attend scientologist or anabaptist More than 4 time s per year 11/30/2021 services? Do you belong to any clubs or organizations Yes 11/30/2021 such as scientologist groups, unions, fraternal or athletic groups, or [...] or slept in a snf (including now)? Sex Assigned at Date Recorded [...] Ext: 12/06 12/06 Wrist Flex: 12/06 12/06 Jail Keeper: 12/06 12/06 Lower Extremity: Left Right Iliopsoas: [...] the near future. 3. Regular use of fagz-vji-qdohnck anti-inflammatory medication such as Aleve 4. All [...] Volume Laterality 11/20/2018 1:17 PM CDT Impressions [id number] - 11/20/2018 1:26 PM CDT IMPRESSION: Fluoroscopically-guided facet joint injection. NR Narrative [id number] - 11/20/2018 1:26 PM CDT EXAM: FL [...] the procedure in the presence of the [facility] personnel, a procedural pause was conducted to verify correct patient iden tity and verification of procedure to be performed and as applicable, correct shea e and site, correct patient position, availability of implants, special equipm ent, or special requirements, and all image and specimen identification data. The roles and responsibilities of care team members, residents, and fellows katelyn e discussed. Procedure Note Ruth Coe M.D. [...] the procedure in the presence of the [facility] personnel, a procedural pause was conducted [...] Organization Address City/State/ZIP Code Phon e Number [id number] NA CT Lumbar Spine without IV Contrast [...]
--- OUTSIDE RECORDS SUMMARY | 2022-05-04 05:41 | XMS_ITS | Encounter Summary ---
:1970 Author Organization [facility] Address [address] [place] [address] Care Team Providers Name Role Phone Unavailable Primary Care Provider Unavailable Reason for Referral Outpatient (Routine) - Closed Specialty Diagnoses / Procedures Referred By Contact Refer red To Contact Diagnoses Spondylosis Cervical Without Myelopathy Gali Loza P.A.-C., [facility] Procedures FL Cervical Spine Medial Branch Nerve Block Bilateral M.S. [address] [place] [address] Referral ID Status Reason Start Date Expiration Date Visits Requ ested Visits Authorized [id number] Closed 01/19/2018 01/19/2019 1 1 Encounter Details Date Type Department Care Team Description 01/19/2018 Comprehensive Visit Division of Pain Gali Loza ondylosis Cervical Medicine in [place], Without Myelopa thy [place], M.S. (Primary Dx) [place] [address] [facility] [address] [place] [phone] Social History Tobacco Use Types Packs/Day Years [...] How often do you attend temple or catholic More than 4 time s [...] or slept in a detention (including now)? Sex Assigned at Date Recorded [...] ILLNESS is a pleasant 47-year-old female from [place], [place] who presents the pain clinicunaccompanied. She [...] October 02, [address] Mccarthy at [facility]. Of note, has been seen in the [...] of eight hoursand to arrive with a laundry route driver for the radiofrequency ablation procedure. The [...] decision maker.: ??Consent for transfusion was obtained Hudson protocol: ??All relevant documentation and testin g [...]
--- OUTSIDE RECORDS SUMMARY | 2022-05-04 05:41 | XMS_ITS | Encounter Summary ---
:1970 Author Organization [facility] Address [address] [place] [address] Care Team Providers Name Role Phone Unavailable Primary Care Provider Unavailable Encounter Details Date Type Department Care Team Description 11/05/2018 Hospital Department of Jeanine, Pain Back; Encounter Radiology, Natalya Haskins, Spondylosis Lum bar Without Myelopathy; Inderjit Morin P.A.-C., M.S. Spondylolisthesis Lumbar Region in [place] [address] [address] [place], [place] [address] [place] [address] [place], [place] [phone] (Work) [phone] Social History Tobacco Use Types Packs/Day Years [...] How often do you attend bahai or jewish More than 4 time s [...] slept in a long term (including now)? Sex Assigned at Date Recorded [...]
--- OUTSIDE RECORDS SUMMARY | 2022-05-04 05:41 | XMS_ITS | Encounter Summary ---
:1970 Author Organization [facility] Address [address] [place] [address] Care Team Providers Name Role Phone Unavailable Primary Care Provider Unavailable Reason for Visit Reason Onset Date Comments work status report 05/07/2019 Adjust time requested off? 05/07/2019 Encounter Details Date Type Department Care Team Description 05/07/2019 Clinical Communication Department of [place] work status report; Orthopedic Surgery Steve Haskins M.D. Adjust time in [place] [address] [address] [facility] requested off? [place], [place] [address] [facility] [address] [place], [place] [phone] (Work) [phone] Social History Tobacco Use Types Packs/Day Years [...] or relatives? How often do you attend mandaeism or presybeterian More than 4 time s per year 11/30/2021 services? Do you belong to any clubs or organizations Yes 11/30/2021 such as mandaeism groups, unions, fraternal or athletic groups, or [...]
--- OUTSIDE RECORDS SUMMARY | 2022-05-04 05:41 | XMS_ITS | Encounter Summary ---
:1970 Author Organization [facility] Address [address] [place] [address] Care Team Providers Name Role Phone Unavailable Primary Care Provider Unavailable Encounter Details Date Type Department Care Team Description 06/22/2019 Documentation Department of Orthopedic Layla Jesus, Surgery in [place] [address] [address] [facility] [address] [place] [address] [phone] (Wo rk) Social History Tobacco Use Types [...] How often do you attend gnosticism or evangelical More than 4 time s [...] has been modifying her activities and utilizing dfhc-ogh-jxojtpe and prescription medication to attempt to palliate her symptoms. OPERATOR documented in this encounter Plan of Treatment Not on filedocumented as of this encounter Visit Diagnoses Not on filedocumented in this encounter
--- OUTSIDE RECORDS SUMMARY | 2022-05-04 05:41 | XMS_ITS | Encounter Summary ---
:1970 Author Organization [facility] Address [address] [place] [address] Care Team Providers Name Role Phone Unavailable Primary Care Provider Unavailable Reason for Visit Outpatient (Routine) - Closed Specialty Diagnoses / Procedures Referred By Contact Refer red To Contact Orthopedic Surgery Diagnoses [facility] [address] [place] [address] Referral ID Status Reason Start Date Expiration Date Visits Requ ested Visits Authorized [id number] Closed 04/21/2019 04/20/2020 1 1 Encounter Details Date Type Department Care Team Description 08/11/2019 Office Visit Department of Orthopedic Steve Jesus Preoperative Exam Surgery in Divine Fragoso M.D. [place] [address] [facility] [address] [place] [address] [phone] Social History Tobacco Use Types Packs/Day Years [...] How often do you attend alevism or anglican More than 4 time s per year [...] have completed or the highest Anika, MEd, PRACTICE PHYSICIAN, SINDY) degree you have received? Sex [...] Ext: 5/5 5/5 Wrist Flex: 5/5 5/5 Kinesiologist: 5/5 5/5 Lower Extremity: Left Right Iliopsoas: [...] 08/11/2019 10/09/2019 23:59 ??? Testing Location 08/11/2019 [facility] No new imaging to review ASSESSMENT / PLAN The patient reports today for preoperative education, administration and surgical listing. We have additionally reviewed the [place] Model of Care, advance directives, risks and benefits of surgical and nonsurgical treatment as well as the [facility] concurrent surgery policy. We will plan for [...] Feeling nervous, anxious or on edge: Yes ICAL STUDIES SPECIALIST documented in this encounter Plan of Treatment Not on filedocumented as of this encounter Visit Diagnoses Diagnosis Preoperative Exam documented in this encounter
--- OUTSIDE RECORDS SUMMARY | 2022-05-04 05:41 | XMS_ITS | Encounter Summary ---
:1970 Author Organization [facility] Address [address] [place] [address] Care Team Providers Name Role Phone Unavailable Primary Care Provider Unavailable Reason for Referral Outpatient (Routine) - Closed Specialty Diagnoses / Procedures Referred By Contact Refer red To Contact Pain Medicine Diagnoses Pain Back Steve Jesus M.D. [facility] [address] [place], [place] [address] Referral ID Status Reason Start Date Expiration Date Visits Requ ested Visits Authorized [id number] Closed 10/05/2018 10/05/2019 1 1 ONNEL RECRUITER Outpatient (Routine) - Closed Specialty Diagnoses / Procedures Referred By Contact Refer red To Contact [facility]opedic [facility] [address] [place] [address] Referral ID Status Reason Start Date Expiration Date Visits Requ ested Visits Authorized [id number] Closed 10/05/2018 10/05/2019 1 1 ONNEL RECRUITER Encounter Details Date Type Department Care Team Description 10/05/2018 Orders Only Department of Reyna Sanchez k (Primary Dx) Orthopedic Surgery in [place], [place] [address] [facility] [address] [place] [phone] Social History Tobacco Use Types Packs/Day Years [...] or relatives? How often do you attend congregational or scientology More than 4 time s per year 11/30/2021 services? Do you belong to any clubs or organizations Yes 11/30/2021 such as congregational groups, unions, fraternal or athletic groups, or [...]
--- OUTSIDE RECORDS SUMMARY | 2022-05-04 05:41 | XMS_ITS | Encounter Summary ---
:1970 Author Organization [facility] Address [address] [place] [address] Care Team Providers Name Role Phone Unavailable Primary Care Provider Unavailable Reason for Visit Reason Onset Date Comments Pre-visit Testing Orders 01/02/2018 Rhizotomy Medication Problem 01/02/2018 [employer] Appointment 01/02/2018 Will there be one sc heduled after injection? Encounter Details Date Type Department Care Team Description 01/02/2018 Clinical Communication Department of [place], Pre- visit Testing Orthopedic Surgery Steve Haskins M.D. Orders (Rhizotomy); in [place], [facility] [address] [facility] Medication Problem [place], [place] ([employer]); [address] [facility] [address] Appointment ([place], [place] [phone] there be one [phone] (Work) scheduled after [phone] injection?) (Fax) Social History Tobacco Use Types [...] How often do you attend jainism or baptism More than 4 time s [...]
--- OUTSIDE RECORDS SUMMARY | 2022-05-04 05:41 | XMS_ITS | Encounter Summary ---
:[address] [facility] Address [address] [place] [address] Care Team Providers Name Role Phone Unavailable Primary Care Provider Unavailable Reason for Visit Outpatient (Routine) - Closed Specialty Diagnoses / Procedures Referred By Contact Refer red To Contact General Surgery Diagnoses Preoperative Exam Steve Jesus [place] M.D. [address] [place] [address] Referral ID Status Reason Start Date Expiration Date Visits Requ ested Visits Authorized [id number] Closed 04/21/2019 04/20/2020 1 1 Encounter Details Date Type Department Care Team Description 08/11/2019 Comprehensive Visit Preoperative Steve Jesus M.D. [address] [place] [phone] Preoperative Exam (Primary Dx); Evaluation Center in Venita Cooper APRN, C.N.PEarl [address] [place] [phone] Stenosis Spinal [place], [place] [address] [place] [phone] Social History Tobacco Use Types Packs/Day Years [...] How often do you attend sabianism or sabianism More than 4 time s [...] have completed or the highest Anika, MEd, CO FOUNDER & CEO, SINDY) degree you have received? Sex Assigned at Date Recorded Female 03/04/2018 7:21 PM CDT documented as of this encounter Last Filed Vital Signs Vital Sign Reading Time Taken Comments Blood Pressure 117/79 08/11/2019 9:30 AM VOLLEYBALL COMMENTATOR Pulse 97 08/11/2019 9:30 AM VOLLEYBALL COMMENTATOR Temperature 36.3 ??C (97.3 ??F) 08/11/2019 9:30 AM VOLLEYBALL COMMENTATOR Respiratory Rate - - Oxygen Saturation 97% 08/11/2019 9:30 AM VOLLEYBALL COMMENTATOR Inhaled Oxygen Concentration - - Weight 62.6 kg (138 lb 0.1 oz) 08/11/2019 9:30 AM VOLLEYBALL COMMENTATOR Height 155.8 cm (5' 1.34) 08/11/2019 9:30 AM VOLLEYBALL COMMENTATOR Body Mass Index 25.79 08/11/2019 9:30 AM VOLLEYBALL COMMENTATOR documented in this encounter H&P Notes Venita Cooper APRN, C.N.P. - 08/11/2019 9:30 AM CST Preoperative Medical Evaluation Patient Name: Josie Booker Age: 49 y.o. Date of : 1970 Patient Address: [address] [place] [address] Primary Care Provider: No primary care provider [...] notes normal sinus rhythm #2 Stenosis Spinal EYBALL COMMENTATOR documented in this encounter Plan of Treatment Not on filedocumented as of this encounter Visit Diagnoses Diagnosis Preoperative Exam - Primary Stenosis Spinal documented in this encounter
--- OUTSIDE RECORDS SUMMARY | 2022-05-04 05:41 | XMS_ITS | Encounter Summary ---
:1970 Author Organization [facility] Address [address] [place] [address] Care Team Providers Name Role Phone Unavailable Primary Care Provider Unavailable Reason for Referral Outpatient (Routine) - Closed Specialty Diagnoses / Procedures Referred By Contact Refer red To Contact Diagnoses Pain Back Steve Jesus M.D. [facility] Procedures FL Lumbar Spine Facet Injection Bilateral [facility] PL[facility] TECHNICAL RADIOLOGY PLACEHOLDER [place] INJ FACET JT LUMB/SAC 1 LVL [address] [place], [place] [address] Referral ID Status Reason Start Date Expiration Date Visits Requ ested Visits Authorized [id number] Closed 02/25/2019 02/25/2020 1 1 Reason for Visit Outpatient (Routine) - Closed Specialty Diagnoses / Procedures Referred By Contact Refer red To Contact Diagnoses Pain Back Steve Jesus M.D. [facility] Procedures FL Lumbar Spine Facet Injection Bilateral [facility] PLACEHOLDER [facility] TECHNICAL RADIOLOGY PLACEHOLDER [place] INJ FACET JT LUMB/SAC 1 LVL [address] [place] [address] Referral ID Status Reason Start Date Expiration Date Visits Requ ested Visits Authorized [id number] Closed 02/25/2019 02/25/2020 1 1 Encounter Details Date Type Department Care Team Description 02/25/2019 Hospital Encounter Department of Radiology, Steve Wong M.D. [address] [place] [phone] Pain Back [employer], in James Coronado M.D. [address] [place] [phone] [place], [place] [address] [place] [address] Social History Tobacco Use Types Packs/Day [...] How often do you attend jewish or denominational More than 4 time s [...] Volume Laterality 02/25/2019 2:34 PM CDT Impressions [id number] - 02/25/2019 2:54 PM CDT Fluoroscopically-guided facet joint injections. NR Narrative [id number] - 02/25/2019 2:54 PM CDT EXAM: FL [...] the procedure in the presence of the [facility] personnel, a procedural pause was conducted [...] the procedure in the presence of the [facility] personnel, a procedural pause was conducted [...] Organization Address City/State/ZIP Code Phon e Number [id number] NA documented in this encounter Visit Diagnoses [...]
--- OUTSIDE RECORDS SUMMARY | 2022-05-04 05:41 | XMS_ITS | Encounter Summary ---
:1970 Author Organization [facility] Address [address] [place] [address] Care Team Providers Name Role Phone Unavailable Primary Care Provider Unavailable Reason for Visit Reason Onset Date Comments Pre-visit Testing Orders 05/19/2019 Encounter Details Date Type Department Care Team Description 05/19/2019 Clinical Communication Department of [place], Pre- visit Testing Orthopedic Surgery Steve Haskins M.D. Orders in [place], [address] [place] [address] [place] [address] [place], [place] [phone] (Work) [phone] Social History Tobacco Use Types Packs/Day Years [...] How often do you attend lutheran or adventism More than 4 time s per year [...]
--- OUTSIDE RECORDS SUMMARY | 2022-05-04 05:41 | XMS_ITS | Encounter Summary ---
:1970 Author Organization [facility] Address [address] [place] [address] Care Team Providers Name Role Phone Unavailable Primary Care Provider Unavailable Encounter Details Date Type Department Care Team Description 08/11/2019 Hospital Encounter Department of [facility] Exam Laboratory Medicine Steve Haskins M.D. and Pathology, [address] in [place], [place] [address] [place] [address] [place], [place] (Work) [address] [phone] Social History Tobacco Use Types Packs/Day Years [...] How often do you attend muslim or sikhism More than 4 time s [...] have completed or the highest Anika, MEd, LAWN MOWER SHARPENER, SINDY) degree you have received? Sex [...] Exam Resu lts for this DIFFERENTIAL, B CUSTOMER SUPPORT ADVISOR procedure ar e in the results section. TYPE AND SCREEN Routine 08/11/2019 8:17 AM Preoperative Exam R esults for this CUSTOMER SUPPORT ADVISOR procedure are i n the results section. BASIC METABOLIC Routine 08/11/2019 8:17 AM Preoperative Exam R esults for this PANEL, S/P CUSTOMER SUPPORT ADVISOR procedure are i n the results section. documented in this encounter Results Type and Screen (with reflex Antibody ID) (08/11/2019 8:17 AM CUSTOMER SUPPORT ADVISOR) Patholo gist Method Time Signature ABORh A Neg Not 08/11/2019 ETRM applicable 11:12 AM CUSTOMER SUPPORT ADVISOR Antibody Negative Negative 08/11/2019 ETRM Screen 11:25 AM CUSTOMER SUPPORT ADVISOR Type & Screen 10/09/2019 08/11/2019 ETRM Expiration 23:59 11:12 AM CUSTOMER SUPPORT ADVISOR Testing Grant DEFAULT 08/11/2019 ETRM Location 9:05 AM CUSTOMER SUPPORT ADVISOR Specimen Anatomical Collection Method Collection Time Receive d Time (Source) Location / / Volume Laterality Blood (Blood, 08/11/2019 8:17 AM 08/11/19 20 9:05 Venous) CUSTOMER SUPPORT ADVISOR AM CUSTOMER SUPPORT ADVISOR Steve Jesus M.D. LAB BLOOD BANK TEST ORDERABL ES Performing Organization Address City/State/ZIP Code Phon e Number [facility] - [address] [place], [place] [address] [facility] [place] [address] [facility] [address] CBC with Differential (08/11/2019 8:17 AM CUSTOMER SUPPORT ADVISOR) P athologist Signature Hemoglobin 14.0 11.6 - 08/11/2019 DTL 15.0 g/dL 8:59 AM CUSTOMER SUPPORT ADVISOR Hematocrit 43.4 35.5 - 08/11/2019 DTL 44.9 % 8:59 AM CUSTOMER SUPPORT ADVISOR Erythrocytes 4.96 3.92 - 08/11/2019 DTL 5.13 8:59 AM CUSTOMER SUPPORT ADVISOR x10(12)/L MCV 87.5 78.2 - 08/11/2019 DTL 97.9 fL 8:59 AM CUSTOMER SUPPORT ADVISOR RBC Distrib Width 12.8 12.2 - 08/11/2019 DTL 16.1 % 8:59 AM CUSTOMER SUPPORT ADVISOR Platelet Count 235 157 - 371 08/11/2019 DTL x10(9)/L 8:59 AM CUSTOMER SUPPORT ADVISOR Leukocytes 4.5 3.4 - 9.6 08/11/2019 DTL x10(9)/L 8:59 AM CUSTOMER SUPPORT ADVISOR Neutrophils 2.65 1.56 - 08/11/2019 DTL 6.45 8:59 AM CUSTOMER SUPPORT ADVISOR x10(9)/L Lymphocytes 1.16 0.95 - 08/11/2019 DTL 3.07 8:59 AM CUSTOMER SUPPORT ADVISOR x10(9)/L Monocytes 0.56 0.26 - 08/11/2019 DTL 0.81 8:59 AM CUSTOMER SUPPORT ADVISOR x10(9)/L Eosinophils 0.12 0.03 - 08/11/2019 DTL 0.48 8:59 AM CUSTOMER SUPPORT ADVISOR x10(9)/L Basophils 0.05 0.01 - 08/11/2019 DTL 0.08 8:59 AM CUSTOMER SUPPORT ADVISOR x10(9)/L Specimen Anatomical Collection Method Collection Time Receive d Time (Source) Location / / Volume Laterality Blood (Blood, 08/11/2019 8:17 AM 08/11/19 20 8:34 Venous) CUSTOMER SUPPORT ADVISOR AM CUSTOMER SUPPORT ADVISOR Steve Jesus M.D. LAB BLOOD ADD-ON Performing Organization Address City/State/[facility] Code Phon e Number [facility] - [address] [place] [address] [facility] [place] [address] [facility] 200 [facility] (ABNORMAL) BMP (Basic Metabolic Panel) (08/11/2019 8:17 AM CUSTOMER SUPPORT ADVISOR) Analysis Performed At Patho logist Time Signature Potassium, S 3.8 3.6 - 5.2 08/11/2019 DTL mmol/L 9:59 AM CUSTOMER SUPPORT ADVISOR Sodium, S 142 135 - 145 08/11/2019 DTL mmol/L 9:59 AM CUSTOMER SUPPORT ADVISOR Chloride, S 102 98 - 107 08/11/2019 DTL mmol/L 9:59 AM CUSTOMER SUPPORT ADVISOR Bicarbonate, S 29 22 - 29 08/11/2019 DTL mmol/L 9:59 AM CUSTOMER SUPPORT ADVISOR Anion Gap 11 7 - 15 08/11/2019 DTL 9:59 AM CUSTOMER SUPPORT ADVISOR BUN (Blood Urea 22 (H) 6 - 21 08/11/2019 DTL Nitrogen), S mg/dL 9:59 AM CUSTOMER SUPPORT ADVISOR Creatinine 1.06 (H) 0.59 - 08/11/2019 DTL 1.04 mg/dL 9:59 AM CUSTOMER SUPPORT ADVISOR eGFR-Non 61 >=60 08/11/2019 DTL Black/ mL/min/BSA 9:59 AM CUSTOMER SUPPORT ADVISOR [place]ian Comment: ----ADDITIONAL INFORMATION---- Estimated GFR calculated using the 2009 CKD_EPI creatinine equation. eGFR-Black/ 70 >=60 mL/min/BSA 2019 9:59 AM CUSTOMER SUPPORT ADVISOR DTL Comment: ----ADDITIONAL INFORMATION---- Estimated GFR calculated using the 2009 CKD_EPI creatinine equation. Calcium, Total, S 9.7 8.6 - 10.0 mg/dL 08/11/2019 9:59 AM CUSTOMER SUPPORT ADVISOR DTL Glucose, S 89 70 - 140 mg/dL 08/11/2019 9:59 AM CUSTOMER SUPPORT ADVISOR D TL Specimen Anatomical Collection Method Collection Time Receive d Time (Source) Location / / Volume Laterality Blood (Blood, 08/11/2019 8:17 AM 08/11/19 20 8:34 Venous) CUSTOMER SUPPORT ADVISOR AM CUSTOMER SUPPORT ADVISOR Steve Jesus M.D. LAB BLOOD ADD-ON Performing Organization Address City/State/ZIP Code Phon e Number [facility] - [address] [place], [place] [address] [facility] [place] [address] [facility] [address] documented in this encounter Visit Diagnoses Diagnosis Preoperative Exam documented in this encounter
--- OUTSIDE RECORDS SUMMARY | 2022-05-04 05:42 | XMS_ITS | Encounter Summary ---
:[address] [facility] Address [address] [place] [address] Care Team Providers Name Role Phone Unavailable [...] How often do you attend religion or sikhism More than 4 time s [...]
--- OUTSIDE RECORDS SUMMARY | 2022-05-04 05:42 | XMS_ITS | Encounter Summary ---
:1970 Author Organization [facility] Address [address] [place] [address] Care Team Providers Name Role Phone Unavailable [...] How often do you attend baptism or presybeterian More than 4 time s [...] AM Re sults for this IMAGE EXAM GINNER HELPER procedure are i n the results section. documented in this encounter Results ORTHOPEDIC SURGERY IMAGE EXAM (07/18/2017 11:40 AM GINNER HELPER) Specimen (Source) Anatomical Collection Method Collection Time Re ceived Time Location / / Volume Laterality 07/18/2017 11:38 AM GINNER HELPER Narrative [facility]S - 07/18/2017 11:53 AM GINNER HELPER This order has been created and auto-finalized [...]
--- OUTSIDE RECORDS SUMMARY | 2022-05-04 05:42 | XMS_ITS | Encounter Summary ---
:1970 Author Organization [facility] Address [address] [place] [address] Care Team Providers Name Role Phone Unavailable Primary Care Provider Unavailable Encounter Details Date Type Department Care Team Description 12/18/2017 Orders Only Division of Pain Medicine Gali Baker in [facility] maru Draper, M.S. [address] [facility] [address] [place] [address] [place], [place] [phone] (Wo rk) Social History Tobacco Use Types [...] How often do you attend tenriism or mandaeism More than 4 time s [...] or slept in a intermediate (including now)? Sex Assigned at Date Recorded Female 03/04/2018 7:21 PM CDT documented as of this encounter Plan of Treatment Not on filedocumented as of this encounter Visit Diagnoses Not on filedocumented in this encounter
--- OUTSIDE RECORDS SUMMARY | 2022-05-04 05:42 | XMS_ITS | Encounter Summary ---
:1970 Author Organization [facility] Address [address] [place] [address] Care Team Providers Name Role Phone Unavailable [...] How often do you attend amish or mormon More than 4 time s per year [...]
--- OUTSIDE RECORDS SUMMARY | 2022-05-04 05:42 | XMS_ITS | Encounter Summary ---
:1970 Author Organization [facility] Address [address] [place] [address] Care Team Providers Name Role Phone Unavailable [...] How often do you attend alevism or evangelical More than 4 time s [...]
--- OUTSIDE RECORDS SUMMARY | 2022-05-04 05:42 | XMS_ITS | Encounter Summary ---
:1970 Author Organization [facility] Address [address] [place] [address] Care Team Providers Name Role Phone Unavailable Primary Care Provider Unavailable Encounter Details Date Type Department Care Team Description 12/18/2017 Clinical Communication Division of Pain Gali Baker, Medicine in [place], P.A.-C., M.S. [place] [address] [address] [facility] [address] [place] [address] [phone] Social History Tobacco Use Types Packs/Day Years [...] How often do you attend congregation or yarsanism More than 4 time s [...]
--- OUTSIDE RECORDS SUMMARY | 2022-05-04 05:42 | XMS_ITS | Encounter Summary ---
:1970 Author Organization [facility] Address [address] [place] [address] Care Team Providers Name Role Phone Unavailable Primary Care Provider Unavailable Reason for Visit Reason Onset Date Comments meds questions 12/11/2017 Communication 12/11/2017 Encounter Details Date Type Department Care Team Description 12/11/2017 Clinical Communication Department of [place] [facility] questions; Orthopedic Surgery Steve Haskins M.D. Communication in [address] [facility] [address] [phone] Social History Tobacco Use Types Packs/Day Years [...] How often do you attend buddhist or bahai More than 4 time s [...] of pain management here at [facility]. They will be able to explain what to expect both during the diagnostic and therapeutic phases of treatment. Kofi Espinoza APRN Orthopedics Telephone Encounter - Radha Llamas - 12/11/2017 10:36 AM CDT Transferred message from [employer] dated 12/04 as Cristal attempted to call [...] If a different medication would [facility] to [facility] [place] [address]. #2 There was mention of Rhizotomy..schedule for [...]
--- OUTSIDE RECORDS SUMMARY | 2022-05-04 05:43 | XMS_ITS ---
:1970 Author Care Team Providers Name Role Phone JOE DE LOS SANTOS MD Primary Care Provider [phone] Allergies None recorded. Medications Name Status Start [...] Uncertain Behavior of Kidney Khadar Theodore MD: [facility] [place] [address], Ph. Social History Tobacco Smoking Status Never [...]
[2022-05-04 05:44] LABS: Color Urine Yellow (Yellow)
[2022-05-04 05:49] LABS: Albumin* 4.8 g/dL (3.3-5.0); Chloride* 106 mmol/L (96-114)
[2022-05-04 05:50] LABS: Potassium* 4.2 mmol/L (3.6-5.1); Sodium* 137 mmol/L (135-149)
[2022-05-04 05:52] LABS: Alkaline Phosphatase* 32 U/L (40-150); Aspartate Amino Transferase* 31 U/L (12-35); Bilirubin Total* 0.8 mg/dL (0.1-1.5); Blood Urea Nitrogen* 19 mg/dL (7-30); Carbon Dioxide* 21 mmol/L (20-32); Creatinine* 0.8 mg/dL (0.5-1.5); Est. Creatinine Clearance* 58.42; Estimated Glomerular Filt Rate 88 ml/min; Glucose* 123 mg/dL (60-115); Total Protein* 7.9 g/dL (6.0-8.3)
[2022-05-04 05:53] LABS: Alanine Aminotransferase* 20 U/L (4-35); Calcium* 9.4 mg/dL (8.4-10.6); Magnesium* 2.2 mg/dL (1.5-2.6)
[2022-05-04 05:58] LABS: RBC Urine 0-2 (0-2); WBC Urine 0-2 (0-5)
[2022-05-04 05:59] LABS: Squamous Epithelial Cell Urine Few (None-Few)
[2022-05-04 06:14] LABS: PCR FLU A Negative PCR FLU A (Negative); PCR FLU B Negative PCR FLU B (Negative); SARS PCR* Negative SARS-CoV-2 (Negative)
--- NOTE | 2022-05-04 06:27 | CRLHL7_ITS ---
For Patients: As a result of the Century Cures Act, medical imaging exams and procedure reports are released immediately into your electronic medical record. You may view this report before your referring provider. If you have questions, please contact your health care provider. INDICATION: Mid abdominal pain. COMPARISON: None. Technique: Ultrasound examination of the abdomen right upper quadrant. FINDINGS: No focal hepatic pathology. No evidence of cholelithiasis. Nondilated common bile duct measuring 6 mm in diameter. No pericholecystic fluid collections. Negative sonographic Valenzuela`s sign. No pancreatic pathology. The abdominal aorta is measuring 18 mm in diameter. The right kidney is measuring 9.8 x 4.3 x 4.7 cm without any obstructive uropathy or perinephric pathology. IMPRESSION: Negative ultrasound examination of the right upper quadrant of the abdomen. Dictated by Haseeb Albrecht MD @ 05/04/2022 8:20:41 AM (Electronically Signed)
[2022-05-04 07:36] VITALS: BP 120/82; PULSE 101; RESP 16; O2SAT 99
--- NOTE | 2022-05-04 07:37 | ED.NURSE ---
report received, care taken over. pt resting in bed. nausea improved. c/o epigastric pain and headache.
[2022-05-04] MEDS: KETOROLAC 15 MG/ML inj IVP (08:30)
--- NOTE | 2022-05-04 08:32 | ED.NURSE ---
pt sitting up on edge of bed, eating crackers and drinking sprite. toradol iv given for upper abd pain 10.
[2022-05-04 08:34] LABS: Amylase* 113 U/L (18-89)
[2022-05-04 08:35] LABS: Lipase* 191 U/L (23-300)
== END 2022-05-04 09:18 | disposition home or self-care (01) ==
PROVIDERS: Emergency Provider Family Medicine; PCP Family Medicine
DX: R10.9 Unspecified abdominal pain (principal)
CPT/HCPCS: 36415; 76705; 80053; 81001; 82150; 83605; 83690; 83735; 85025; 87631; 96361; 96374; 96375; 99284; J1885; J2405; J7030

== ENCOUNTER 2023-02-17 06:29 | Day surgery (SDC) | payer BC, SELFPAY ==
[2023-02-17] VITALS (7 sets, daily range): BP systolic 120–165; BP diastolic 71–101; PULSE 80–106; RESP 16; TEMP 36.2–36.4; O2SAT 95–100; BMI 28.3
[2023-02-17] MEDS: BUPIVACAINE 0.5% 30 ML INJECTION (07:00)
--- NOTE | 2023-02-17 07:31 | PM.ORPRC ---
Procedure Note Date of procedure: 02/17/23 Procedure: PREOPERATIVE DIAGNOSIS: 1. Right thumb flexor tenosynovitis - trigger thumb POSTOPERATIVE DIAGNOSIS: 1. Right thumb flexor tenosynovitis - trigger thumb PROCEDURE: 1. Right thumb flexor tendon sheath open release (A1 randy) SURGEON: Vinay Wilson MD. DIPLOMA DENTAL ASSISTANT: BRITTANI Brantley ANESTHESIA: Local anesthetic 6ml via 50:50 mixture of 1% Lidocaine with epi and 0.5% marcaine plain EBL: 1mL IMPLANTS: None TOURNIQUET: None COMPLICATIONS: None evident INDICATIONS: The patient is a pleasant 52-year-old female who has experienced right thumb catching/triggering for number of months. It has progressively gotten worse. Given the failure of nonoperative management, and how this affects daily life, surgery was recommended. DESCRIPTION OF PROCEDURE: Following a thorough discussion of risks, benefits, and alternatives consent was obtained and the operative digit(s) was marked. The patient was brought to the operating room and placed supine on the operating table. Local anesthesia induction was undertaken in preop holding. No antibiotics were administered as this was planned to be a local case only. Proper time-out was performed identifying proper patient, site, and procedure. The operative extremity was prepped and draped in the appropriate sterile fashion using ChloraPrep. A incision was made on the palmar surface of the hand overlying the MCP joint region of the appropriate digit(s) respecting the palmar creases being cautious not to cross these perpendicularly. Sharp incision through the skin, and blunt dissection through subcutaneous tissue allowing protection of crossing neurologic structures. The A1 randy was visualized directly. It was incised sharply with a 15 blade. It was released completely from its distal to proximal extent under direct visualization. The tendon was inspected and found to be mildly striated consistent with some friction. Otherwise, it was intact. The tendon was removed out of the wound, and further inspected. The patient was asked to manually flex and extend the digits and showed no further catching. The catching, which was visualized initially, was no longer evident with reproduction of a manual fist and relaxation. Closure was performed with 4-O nylon in interrupted fashion. Soft dressings were applied, and the patient was transferred to the recovery room in stable condition. PLAN: 1. Encourage elevation of the operative extremity. 2. Range of motion of the fingers and hand/wrist as tolerated. 3. Ibuprofen/acetaminophen and/or Percocet as needed for pain control. 4. Follow up with PA visit in 12-16 days for wound check and suture removal.
== END 2023-02-17 08:02 | disposition home or self-care (01) ==
PROVIDERS: PCP Family Medicine; Visit Provider Orthopaedic Surgery Sports Medicine
PROC: (CPT 26055; principal; 2023-02-17 07:15)
DX: M65.311 Trigger thumb, right thumb (principal); M65.841 Other synovitis and tenosynovitis, right hand
CPT/HCPCS: 26055; J0665

== ENCOUNTER 2023-06-23 15:32 | Outpatient (CLI) | payer BC, SELFPAY | END 2023-06-23 15:33 | disposition home or self-care (01) | PROVIDERS: PCP Family Medicine; Visit Provider Family Medicine | DX: Z00.00 Encounter for general adult medical examination without abnormal findings (principal); E78.5 Hyperlipidemia, unspecified; R53.83 Other fatigue; Z13.6 Encounter for screening for cardiovascular disorders | CPT/HCPCS: 80053; 80061; 84443 ==

== ENCOUNTER 2023-09-24 17:42 | Emergency (ER) | payer BC, SELFPAY ==
--- OUTSIDE RECORDS SUMMARY | 2023-09-24 17:48 | XMS_ITS | Clinical Summary ---
Author Name Unknown Organization [facility] Address [address] [place] [address]. [place] [address] Care Team Providers Care Media Production Support Manager Name Role Phone Clinic, [facility] Primary Care Provider Allergies No known active allergies Medications Medication Sig Dispensed Refills Start Date End Date Status Vitamins A & D (VITAMIN A & D) ointment Apply topically as needed for dry skin or irritation 0 Active oxyCODONE-acetamino phen (PERCOCET) 5-325 MG per tablet Take 1-2 tablets by mouth every 4 hours as needed for moderate to severe pain 15 tablet 0 06/24/2014 Active Pregabalin (LYRICA PO) Take 75 mg by mouth 2 times daily 0 Active CYCLOBENZAPRINE HCL PO 0 Active acetaminophen-codei ne (TYLENOL WITH CODEINE #3) 300-30 MG per tablet Take 1-2 tablets by mouth every 6 hours as needed for pain 12 tablet 0 05/09/2018 Active Social History Tobacco Use Types Packs/Day Years Used Date Smoking Tobacco: Never Alcohol Use Standard Drinks/Week Comments Yes 0 (1 standard drink = 0.6 oz pur e alcohol) Adolescent Education Answer Date Record ed Getting School Help Needed Not on file 05/04 Sex and Gender Information Value Date Recorded Sex Assigned at Not on file Gender Identity Not on file Sexual Orientation Not on file Last Filed Vital Signs Vital Sign Reading Time Taken Comments Blood Pressure 111/69 05/09/2018 3:30 AM CDT Pulse 76 05/09/2018 5:18 AM CDT Temperature 36.6 ??C (97.9 ??F) 05/09/2018 12:20 AM C DT Respiratory Rate 16 05/09/2018 5:18 AM CDT Oxygen Saturation 99% 05/09/2018 5:18 AM CDT Inhaled Oxygen Concentration - - Weight 58.5 kg (129 lb) 06/24/2014 7:51 PM FINANCIAL AID OFFICER Height 152.4 cm (5') 06/24/2014 7:51 PM FINANCIAL AID OFFICER Body Mass Index 25.19 06/24/2014 7:51 PM FINANCIAL AID OFFICER Plan of Treatment Health Maintenance Due Date Last Done Comments ADVANCE CARE PLANNING 1970 ANNUAL REVIEW OF HM ORDERS 1968 CT COLONOGRAPHY 1968 FIT 1968 FLEX SIG 1968 MAMMO SCREENING 1968 sDNA (Cologuard) 1970 COLONOSCOPY 1978 COLORECTAL CANCER SCREENING 1978 HIV SCREENING 1983 HEPATITIS C SCREENING 1986 YEARLY PREVENTIVE VISIT 02/06/2008 02/06/20 07, 04/05/2005, 04/02/2004, Additional history exists LIPID 2008 HEPATITIS B IMMUNIZATION (3 of 3 - Hep B Twinrix 3-dose series) 07/27/2015 02/24/2015, 01/19/2015 PAP 08/19/2016 08/19/2013 ZOSTER IMMUNIZATION (1 of 2) 2018 GLUCOSE 05/09/2021 05/09/2018, 06/24/2014 DTAP/TDAP/TD IMMUNIZATION (3 - Td or Tdap) 05/07/2022 05/07/2012, 02/23/2009, 04/27/1999, Additional history exists COVID-19 Vaccine ( season) 2023 06/08/2021, 10/27/2020, 09/28/2020 INFLUENZA VACCINE (#1) 2023 , 05/31/2019, 05/31/2019, Additional history exists PHQ-2 (once per calendar year) 2023 HPV IMMUNIZATION Aged Out No longer e ligible based on patient's age to complete this topic IPV IMMUNIZATION Aged Out No longer e ligible based on patient's age to complete this topic MENINGITIS IMMUNIZATION Aged Out No l onger eligible based on patient's age to complete this topic Pneumococcal Vaccine: Pediatrics (0 to 5 Years) and At-Risk Patients (6 to 64 Years) Aged Out No longer eligible based on patient's age to complete this topic RSV MONOCLONAL ANTIBODY Aged Out No l onger eligible based on patient's age to complete this topic Procedures Procedure Name Priority Date/Time Associated Diagnosis Comments CT IMAGING - HIM SCAN 07/04/2023 12:00 AM FINANCIAL AID OFFICER from Last 3 Months Results * CT IMAGING - HIM SCAN (07/04/2023 12:00 AM FINANCIAL AID OFFICER) Anatomical Region Laterality Modality Computed Tomogra phy 07/04/[address] ORDERABLES from Last 3 Months Care Teams Media Production Support Manager Relationship Specialty Start Date End Date Clinic, [place] [id number] [place] [address] PCP - General 05/09/18
--- OUTSIDE RECORDS SUMMARY | 2023-09-24 17:48 | XMS_ITS | Encounter Summary ---
Author Name Unknown Organization [facility] Address [address], [place] [address] Care Team Providers Care Type Copy Examiner Name Role Phone Britney Jarrett MD Primary Care Provider [phone] Encounter Details Date Type Department Care Team (Latest Contact Info) Description 02/18/1998 Orders Only [place] [address] Social History Tobacco Use Types Packs/Day Years Used Date Smoking Tobacco: Never Assessed Sex and Gender Information Value Date Recorded Sex Assigned at Not on file Gender Identity Not on file Sexual Orientation Not on file documented as of this encounter Plan of Treatment Upcoming Encounters Date Type Department Care Team (Late st Contact Info) Description 10/01/2023 1:20 PM CONFERENCE DIRECTOR Appointment TMD at [facility] [place] [address] [place] [address] Aracelis Siddiqui, [place], [place] [address] [place] [address] documented as of this encounter Visit Diagnoses Not on filedocumented in this encounter Additional Health Concerns Infection Onset Date Last Indicated Resolved Time R/O COVID19 03/08/2020 03/08/2020 03/11/2020 1:28 AM CDT documented as of this encounter Care Teams Type Copy Examiner Relationship Specialty Start Date End Date Britney Jarrett MD [address] [place] [address] PCP - General 04/04/16 documented as of this encounter
--- OUTSIDE RECORDS SUMMARY | 2023-09-24 17:48 | XMS_ITS | Patient Health Record ---
Author Name Unknown Organization [facility] Address [address] [place] [address] Care Team Providers Care Patient Support Associate Name Role Phone LashaKena Primary Care Provider [phone] ALLERGIES No Known Allergies REASON FOR REFERRAL No Information MEDICATIONS Medication SIG (Take, Route, Fr equency, Duration) Notes Start Date End Date Status Cyclobenzaprine HCl Active Calcium Active Vitamin D3 Active Probiotic Active SOCIAL HISTORY Tobacco Use: Social History Observation Description Date Details (start date - stop date) Never Smoker NA - NA Sex Assigned At : Social History Observation Description Sex Assigned At Unknown Tobacco Use/Smoking Question Answer Notes Are you a nonsmoker Alcohol Screen (Audit-C) Question Answer Notes Did you have a drink contain ing alcohol in the past year? Yes How often did you have a dri nk containing alcohol in the past year? Monthly or less (1 point) How many drinks did you have on a typical day when you were drinking in the past year? 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 Menopause (519989801) PLAN OF TREATMENT No Information Insurance Providers Payer Name Payer Address Payer Phone Subscriber Number Group Number Insured Name Patient Relationship to Insured Coverage Start Date Coverage End Date [employer]BS - (Client Bill) [address] [place] [address] [id number] Josie Booker Self - patient is the insured MEDICAL (GENERAL) HISTORY Medical History History ICD Code Arthritits Surgical History Surgery Date(Month/Year) Tonsils/adenoids- childhood tubes as child shoulder surgery 2018 carpal tunnel surgery 95 and 96 low back fusion neck fusion 2008 breast implants 2010 breast reduction 23 03 hernia repair 2019
--- OUTSIDE RECORDS SUMMARY | 2023-09-24 17:48 | XMS_ITS | Continuity of Care Document ---
Author Name Unknown Organization [facility] Address [address] [address] [place] [address] Phone Care Team Providers Care Java J2Ee Lead Name Role Phone Richard Mullins MD Unavailable [...] Diagnoses Date Provider Providers Copied on Encounter [facility], [address] [address], [place], [id number], [place] tel:[phone] [facility] No Information 2 Harpreet Ramos. [address] [facility], [place], [place], [id number] , [place]. tel: [phone] [facility], [address] [address], [place], [place], [address], [place] tel:[phone] [facility] No Information [address] [facility] [address], [address], [place], [place], [address] , [place]. tel: [phone] Established Level 4 [facility], [address] [address], [place], [place], [address], [place] tel:[phone] [facility] GI Symptoms or Concerns (chief complaint) Oropharyngeal dysphagia [address] [facility] [address], [address], [place], [place], [address] , [place]. tel: [phone] Referring Provider: Referral Self, USE FOR SELF REFERRALS. [facility], [address] [address], [place], [place], [address], [place] tel:[phone] [facility] No Information 2 Min MD Mcqueen. [address] [facility] [address], [address], [place], [place], [address] , [place]. tel: [phone] [facility], [address] [address], [place], [address], [place] tel:[phone] [facility] Gastroesophageal reflux disease without esophagitis 2 Min MD Mcqueen. [address] [facility] [address], [address], [place], [place], [address] , [place]. tel: [phone] [facility], [address] [address], [place], [place], [address], [place] tel:[phone] [facility] GI Symptoms or Concerns (chief complaint) Chronic GERDEsophageal dysphagiaDysphagi a, unspecifiedHeartb urnDysphagia, unspecified [address] [facility] [address], [address], [place], [place], [address] , [place]. tel:[phone] Referring Provider: Referral Self, USE FOR SELF REFERRALS. Office Cons New/estab Mod [facility], [address] [address], [place], [id number], [place] tel:[phone] [facility] Symptoms or Concerns (chief complaint) Gastroesophageal reflux disease, unspecified whether esophagitis presentDysphagia, unspecified typeEpigastric abdominal painHoarseness of voice 2 Min MD Mcqueen. [address] [facility], [place], [address] , [place]. tel:[phone] Referring Provider: Matt Erazo MD, [address] [facility] [place], [address]. tel:[phone] [facility], [address] [address], [place], [address], [place] tel:[phone] [facility] No Information 2 Parish Carranza. [address] [facility], [place], [address] , [place]. tel:[phone] Family History Family Member Type Diagnosis Age [...] Registry Payers Payer name Insurance type Covered libertarian ID Authoriza ticecil(s) [employer] [facility] [id number] Social History Type Description Quantity Date Captured [...]
--- OUTSIDE RECORDS SUMMARY | 2023-09-24 17:48 | XMS_ITS | Clinical Summary ---
Author Name Unknown Organization [facility] Address [place], [place] [address] Care Team Providers Care Display And Banner Designer Name Role Phone Nonstaff, Doctor Primary Care Provider Unavailab le Allergies Active Allergy Reactions Criticality Noted Date Comments Mold *Unknown 01/30/2017 sinus infection Medications Medication Sig Dispensed Refills Start Date End Date Status pregabalin (LYRICA) 100 mg capsule Take 75 mg by mouth. 0 Active Lactobac no.41-Bifidobact no.7 (PROBIOTIC-10) 70 mg (3 billion cell) cap 0 Acti ve acetaminophen (TYLENOL EXTRA STRGTH) 500 mg tablet Take 500 mg by mouth. 0 Active acetaminophen-codeine, 300-30 mg, (TYLENOL-CODEINE #3) tablet Take 1-2 Tabs by mouth. 0 05/09/2018 Active azithromycin (ZITHROMAX) 250 mg tablet TAKE 2 TABLETS BY MOUTH FOR ONE DAY THEN ONE TABLET DAILY FOR FOUR DAYS 0 09/10/2018 Active cefdinir (OMNICEF) 300 mg capsule TAKE ONE CAPSULE BY MOUTH TWICE A DAY FOR 10 DAYS 0 09/04/2018 Active cyclobenzaprine (FLEXERIL) 10 mg tablet Take 10 mg by mouth. 0 Active LYRICA 75 mg capsule 0 10/07/2018 Acti ve Active Problems No known active problems Social History Tobacco Use Types Packs/Day Years Used Date Smoking Tobacco: Never Assessed Sex and Gender Information Value Date Recorded Sex Assigned at Not on file Gender Identity Not on file Sexual Orientation Not on file Obstetrics History Last Filed [...] 1979 Depression screening for age 12+ 1980 HIV for age 15-65 1983 Hepatitis C screening for age 18-79 1986 Tetanus booster 1988 Colonoscopy through age 75 2013 Lipids for age 45-75 2013 Mammogram for age 45-75 2013 Zoster (shingles) series for age 50+ (1 of 2) 2018 BMI (ht and wt on same day) for age 18+ 10/21/2019 10/20/2018 Pap test for age 21-65 10/16/2021 9, 10/16/2018, 08/19/2013, Additional history exists Influenza for age 50-64 04/04/2023 Pneumococcal series for age 6-64 Aged Out No longer eligible based on patient's age to complete this topic Care Teams Display And Banner Designer Relationship Specialty Start Date End Date Nonstaff, Doctor NON STAFF DOCTOR PCP - General 06/14/11
--- OUTSIDE RECORDS SUMMARY | 2023-09-24 17:48 | XMS_ITS | Encounter Summary ---
Author Name Unknown Organization [facility] Address [address] [place] [address] Care Team Providers Care Donor Relations Manager Name Role Phone Britney Jarrett MD Primary Care Provider [phone] Encounter Details Date Type Department Care Team (Latest Contact Info) Description 06/10/1995 Orders Only Madelin Huber Social [...] st Contact Info) Description 10/01/2023 1:20 PM CURLING MACHINE OPERATOR Appointment TMD at [facility] [place] [address] [facility] [place] [address] Aracelis Siddiqui, DDS, MS [address] [place] [address] documented as of this encounter Visit Diagnoses Not on filedocumented in this encounter Additional Health Concerns Infection Onset Date Last Indicated Resolved Time R/O COVID19 03/08/2020 03/08/2020 03/11/2020 1:28 AM CDT documented as of this encounter Care Teams Donor Relations Manager Relationship Specialty Start Date End Date Britney Jarrett MD [address] [place] [address] PCP - General 04/04/16 documented as of this encounter
--- OUTSIDE RECORDS SUMMARY | 2023-09-24 17:48 | XMS_ITS | Encounter Summary ---
Author Name Unknown Organization [facility] Address [address] [address] Care Team Providers Care Bin Tripper Operator Name Role Phone Britney Jarrett MD Primary Care Provider [phone] Encounter Details Date Type Department Care Team (Latest Contact Info) Description 01/23/2000 Orders Only Madelin Becerril MD [address] [place] [address] Social History Tobacco Use Types Packs/Day Years Used Date Smoking Tobacco: Never Assessed Sex and Gender Information Value Date Recorded Sex Assigned at Not on file Gender Identity Not on file Sexual Orientation Not on file documented as of this encounter Plan of Treatment Upcoming Encounters Date Type Department Care Team (Late st Contact Info) Description 10/01/2023 1:20 PM PARADI TENDER Appointment TMD at [facility] [address] [facility] [place] [address] Aracelis Siddiqui, [place], [place] [address] [place] [address] documented as of this encounter Visit Diagnoses Not on filedocumented in this encounter Additional Health Concerns Infection Onset Date Last Indicated Resolved Time R/O COVID19 03/08/2020 03/08/2020 03/11/2020 1:28 AM CDT documented as of this encounter Care Teams Bin Tripper Operator Relationship Specialty Start Date End Date Britney Jarrett MD [address] [place] [address] PCP - General 04/04/16 documented as of this encounter
--- OUTSIDE RECORDS SUMMARY | 2023-09-24 17:48 | XMS_ITS | Encounter Summary ---
Author Name Unknown Organization [facility] Address [address] [place] [address] Care Team Providers Care Signal Operator Technical Name Role Phone Britney Jarrett MD Primary Care Provider [phone] Encounter Details Date Type Department Care Team (Latest Contact Info) Description 08/10/1996 Orders Only Madelin Huber Social [...] st Contact Info) Description 10/01/2023 1:20 PM STUDENT WORKER Appointment TMD at [facility] [place] [address] [facility] [place] [address] Aracelis Siddiqui, DDS, MS [address] [place] [address] documented as of this encounter Visit Diagnoses Not on filedocumented in this encounter Additional Health Concerns Infection Onset Date Last Indicated Resolved Time R/O COVID19 03/08/2020 03/08/2020 03/11/2020 1:28 AM CDT documented as of this encounter Care Teams Signal Operator Technical Relationship Specialty Start Date End Date Britney Jarrett MD [address] [place] [address] PCP - General 04/04/16 documented as of this encounter
--- OUTSIDE RECORDS SUMMARY | 2023-09-24 17:48 | XMS_ITS | Referral Summary ---
Author Name Unknown Organization [facility] Address [address] [place] [address]. [place] [address] Care Team Providers Care Pearl Fisherman Name Role Phone Clinic, [facility] Primary Care Provider Allergies No known active [...] 58.5 kg (129 lb) 06/24/2014 7:51 PM GENERAL SALES MANAGER Height 152.4 cm (5') 06/24/2014 7:51 PM GENERAL SALES MANAGER Body Mass Index 25.19 06/24/2014 7:51 PM GENERAL SALES MANAGER Plan of Treatment Not on file Procedures Procedure Name Priority Date/Time Associated Diagnosis Comments CT IMAGING - HIM SCAN 07/04/2023 12:00 AM GENERAL SALES MANAGER from Last 3 Months Results * CT IMAGING - HIM SCAN (07/04/2023 12:00 AM GENERAL SALES MANAGER) Anatomical Region Laterality Modality Computed Tomogra phy 07/04/[address] ORDERABLES from Last 3 Months Care Teams Pearl Fisherman Relationship Specialty Start Date End Date Clinic, [address] [address] PCP - General 05/09/18
--- OUTSIDE RECORDS SUMMARY | 2023-09-24 17:48 | XMS_ITS | Encounter Summary ---
Author Name Unknown Organization [facility] Address [address], [place] [address] Care Team Providers Care Home Office Representative Name Role Phone Britney Jarrett MD Primary Care Provider [phone] Encounter Details Date Type Department Care Team (Late Contact Info) Description 10/04/2018 Correspondence External to ORDER Social History Tobacco Use Types Packs/Day Years Used Date Smoking Tobacco: Never Smokeless Tobacco: Never Alcohol Use Standard Drinks/Week Comments Yes 0 (1 standard drink = 0.6 oz pur e alcohol) rare Sex and Gender Information Value Date Recorded Sex Assigned at Not on file Gender Identity Not on file Sexual Orientation Not on file documented as of this encounter Plan of Treatment Upcoming Encounters Date Type Department Care Team (Late Contact Info) Description 10/01/2023 1:20 PM FOREIGN AGENT Appointment TMD at [facility] [address] [place] [address] Aracelis Siddiqui, DDS, MS [address] [place] [address] documented as of this encounter Visit Diagnoses Not on filedocumented in this encounter Additional Health Concerns Infection Onset Date Last Indicated Resolved Time R/O COVID19 03/08/2020 03/08/2020 03/11/2020 1:28 AM CDT documented as of this encounter Care Teams Home Office Representative Relationship Specialty Start Date End Date Britney Jarrett MD [address] [place] [address] PCP - General 04/04/16 documented as of this encounter
--- OUTSIDE RECORDS SUMMARY | 2023-09-24 17:48 | XMS_ITS | Clinical Summary ---
Author Name Unknown Organization [facility] Address [address] [place] [address] Care Team Providers Care Muffler Mechanic Name Role Phone Britney Jarrett MD Primary Care Provider [phone] Source Comments You are receiving this document as you are listed as the primary care provider,follow-up provider, or the patient has been referred to you for consultation.This is in compliance with the Medicare and[facility] Hospitalca[facility] EHR Incentive Program,which states Providers who transition their patient to another setting of careor provider of care or refers their patient to another provider of care shouldprovide summary care record for each transition of care or referral. [facility] Allergies No known active allergies Medications Medication Sig Dispensed Refills Start Date End Date Status Probiotic Product (SUPER PROBIOTIC OR) Acti ve cyclobenzaprine (FLEXERIL) 10 MG tablet Take 10 mg by mouth three times a day as needed for Muscle Spasms. Active VITAMIN D OR 1,000 mg. 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 Chondrocalcinosis 08/24/2016 Overview: Chondrocalcinosis, left knee H/O cervical spine surgery 02/23/2014 Medial epicondylitis of elbow 02/11/2014 Unspecified disorder of mens truation and other abnormal bleeding from female genital tract 12/12/2005 Overview: 12/07Cesar Immunizations Name Administration Dates Next Due DT Ped 07/22/1994 Flu Vac (3+ yrs) 06/14/2003, 2,06/23/2001,07/24/20 00,05/14/1999 Influenza, Unspecified Formulation 05/12/1998,,05/12/1996 Td 04/27/1999,07/22/1994 Varicella 09/08/1997(Deferred: Immune by [facility] aden) Family History Medical History Relation Name Comments Diabetes Father Stroke Maternal Grandmother d 92 Heart Attack Paternal Grandfather d age 45 Cancer Paternal Grandmother breast ? 65 [...] = 0.6 oz pur e alcohol) rare PHQ-2 Answer Date Recorded PHQ-2 Score 0 03/08/2020 Sex and Gender Information Value Date Recorded Sex Assigned at Not on file Gender Identity Not on file Sexual Orientation Not on file Last Filed Vital Signs Vital Sign Reading Time Taken Comments Blood Pressure 123/72 03/22/2019 9:27 AM CDT Pulse 80 03/22/2019 9:27 AM CDT Temperature 36.8 ??C (98.2 ??F) 07/09/2020 10:[address] Respiratory Rate 18 03/22/2019 9:27 AM CDT Oxygen Saturation 97% 03/22/2019 9:27 AM CDT Inhaled Oxygen Concentration - - Weight 63.5 kg (140 lb) 03/27/2020 12:03 PM CDT Height 152.4 cm (5') 03/27/2020 12:03 PM CDT Body Mass Index 27.34 03/27/2020 12:03 PM CDT Plan of Treatment Upcoming Encounters Date Type Department Care Team (Late st Contact Info) Description 10/01/2023 1:20 PM BOILER HOUSE SUPERVISOR Appointment TMD at [facility] [address] [place] [address] Aracelis Siddiqui, DDS, MS [address] [place], [place] [id number] Health Maintenance Due Date Last Done Comments Colon Cancer Screening Plan Due 1968 Hep C Screening (Preventive Services) 1968 HIV Screening (Preventive Services) 1984 HepB (1) 1987 Mammogram 10/25/1998 10/25/1997 Cervical Cancer Screening Due 02/06/2007 02/05/2007, 04/02/2004, 05/17/2002, Additional history exists Adult Preventive Visit 02/06/2008 7, 04/05/2005, 04/02/2004, Additional history exists Cholesterol 2013 02/02/2007, 03/06, 08/08/1998 Zoster/Shingles (1 of 2) 2018 DTaP/Tdap/Td (5 - Tdap) 05/07/2022 05/07/20 12, 04/27/1999, 07/22/1994, Additional history exists COVID-19 Vaccine ( season) 2023 10/27/2020, 09/28/2020 Influenza (#1) 2023 04/28/2020, 05/05, 05/05/2018, Additional history exists HepA Aged Out 02/24/2015, 01/19/2015 No lo nger eligible based on patient's age to complete this topic Hib Aged Out No longer eligi ble based on patient's age to complete this topic IPV (Polio) Aged Out No longer eligi ble based on patient's age to complete this topic MCV4 Aged Out No longer eligi ble based on patient's age to complete this topic Pneumococcal Aged Out No longer eligi ble based on patient's age to complete this topic Medical Devices Implanted Type Area Firer Boiler Device Identifier Shelf Expiration Date Model / Serial / Lot Scr Deepa Rader - [id number] Implanted:Qty: 1 on 10/02/2017 by Terrell Mccarthy MD at [facility] [employer] Right: SHOULDER [employer] 05/03/2019 [id number] / 0 / [id number] Procedures Procedure Name Priority Date/Time Associated Diagnosis Comments PAP TEST, ROUTINE Routine 02/05/2007 2:4 0 PM CDT Screening for Malignant Neoplasm of the Cervix LIPID PANEL, FAST > 12 HOUR Routine 02/02/2007 8:24 AM CDT Screening for Lipoid Disorders MAMMOGRAM, BILATERAL DIAGNOSTI 10/25/1997 12:00 AM BOILER HOUSE SUPERVISOR Lump Or Mass In Breast Family Hx-Breast Malig from Last 3 Months or Most Recently Relevant to Health Maintenance Results * PAP TEST, ROUTINE [[id number]] (02/05/2007 2:40 PM CDT) Cytology, Pap (NOTE) Cash Management Specialist Cytology Report Patient Name: JOSIE THOMASON Taken: 02/05/2007 Received: 02/06/2007 Reported: 02/16/2007 Physician(s): MADISYN SMALLS ([id number]) ?Source of Specimen Liquid routine Pap, cervical/endocervi roberto: ?Specimen Adequacy ?Satisfactory for evaluation. ??Endocervical component present. ? Final Cytologic Interpretation/Res ult NEGATIVE FOR INTRAEPITHELIAL LESION OR MALIGNANCY (NILM) ? crw2/02/16/2007 Electronically Signed Out By Veronique Akins, ??CT (ASCP) Veronique Akins, ??CT (ASCP) ?Pap Smear History ?Date of Last Menstrual Period: ? 01/18/07 ?Contraceptive History: ?Not Stated/Unknown ?Other Clinical Conditions: ?LAST PAP: Normal HPV reflex testing requested with interpretation of ASCUS ? [facility] 02/05/2007 2:40 PM CDT 02/06/2007 6:18 AM CDT Madisyn Smalls APRN, [facility]_1 Performing Organization Address [facility] de Phone Number [facility] [address] [phone] * CHOLESTEROL LIPID PANEL FAST >12HR (02/02/2007 8:24 AM CDT) Cholesterol 154 <200 mg/dl [facility] Triglyceride 70 <200 mg/dl [facility] HDL 62 >35 mg/dl [facility] LDL, Calc. 78 mg/dl [facility] Hours Fasting 12 hours [facility] 02/02/2007 8:24 AM CDT 02/02/2007 8:25 AM CDT Madisyn Smalls APRN, [facility]1 Performing Organization Address [facility] de Phone Number [facility] [address] [place] [phone] * MAMMOGRAM, BILATERAL DIAGNOSTIC (10/25/1997 12:00 AM BOILER HOUSE SUPERVISOR) Anatomical Region Laterality Modality Breast Other 10/25/1997 Narrative Transcriptions Bandar Kumar - 10/25/1997 12:00 AM CSTCLINICAL DATA: BILAT MAMMO/PALPABLE/ADD'L VIEWS INTERPRETATION: BILATERAL MAMMOGRAM 10/25/97: Study includes focal compression views of the upper outer quadrant of the right breast. There are no suspicious masses or calcifications seen. There is no mammographic evidence for malignancy. ACR BIRADS CATEGORY 1 - NEGATIVE MAMMOGRAM Bandar Kumar MD cc: Radiology IG Madelin Huber MD Madelin Becerril MD RAD_BI from Last 3 Months or Most Recently Relevant to Health Maintenance Advance Directives Latest Code Status on File Code Status Date Activated Date Inactivated Comments None 03/07/2005 4:09 PM 03/07/2005 4:09 PM Care Teams Muffler Mechanic Relationship Specialty Start Date End Date Britney Jarrett MD [address] [place] [address] PCP - General 04/04/16
--- OUTSIDE RECORDS SUMMARY | 2023-09-24 17:48 | XMS_ITS | Encounter Summary ---
Author Name Unknown Organization [facility] Address [address] [address] Care Team Providers Care Pharm Tech Name Role Phone Britney Jarrett MD Primary Care Provider [phone] Encounter Details Date Type Department Care Team (Latest Contact Info) Description 12/18/1995 Orders Only Bandar Santamaria MD [address] [place] [address] Social History Tobacco Use Types Packs/Day Years Used Date Smoking Tobacco: Never Assessed Sex and Gender Information Value Date Recorded Sex Assigned at Not on file Gender Identity Not on file Sexual Orientation Not on file documented as of this encounter Plan of Treatment Upcoming Encounters Date Type Department Care Team (Late st Contact Info) Description 10/01/2023 1:20 PM ROD PULLER Appointment TMD at [facility] [address] [address] [place] [address] Aracelis Siddiqui, [place], [place] [address] [place] [address] documented as of this encounter Visit Diagnoses Not on filedocumented in this encounter Additional Health Concerns Infection Onset Date Last Indicated Resolved Time R/O COVID19 03/08/2020 03/08/2020 03/11/2020 1:28 AM CDT documented as of this encounter Care Teams Pharm Tech Relationship Specialty Start Date End Date Britney Jarrett MD [address] [place] [address] PCP - General 04/04/16 documented as of this encounter
--- OUTSIDE RECORDS SUMMARY | 2023-09-24 17:48 | XMS_ITS | Encounter Summary ---
Author Name Unknown Organization [facility] Address [address] [address] Care Team Providers Care Fast Food Cashier Name Role Phone Britney Jarrett MD Primary Care Provider Encounter Details Date Type Department Care Team (Latest Contact Info) Description 06/04/1995 Orders Only Harris Jarrett MD [address] [place] [address] Social History Tobacco Use Types Packs/Day Years Used Date Smoking Tobacco: Never Assessed Sex and Gender Information Value Date Recorded Sex Assigned at Not on file Gender Identity Not on file Sexual Orientation Not on file documented as of this encounter Plan of Treatment Upcoming Encounters Date Type Department Care Team (Late st Contact Info) Description 10/01/2023 1:20 PM FLAME BURNER Appointment TMD at [facility] [place] [address] [facility] [place] [address] Aracelis Siddiqui, [place], MS [address] [place] [address] documented as of this encounter Visit Diagnoses Not on filedocumented in this encounter Additional Health Concerns Infection Onset Date Last Indicated Resolved Time R/O COVID19 03/08/2020 03/08/2020 03/11/2020 1:28 AM CDT documented as of this encounter Care Teams Fast Food Cashier Relationship Specialty Start Date End Date Britney Jarrett MD [address] [place] [address] PCP - General 04/04/16 documented as of this encounter
--- OUTSIDE RECORDS SUMMARY | 2023-09-24 17:49 | XMS_ITS | Encounter Summary ---
Author Name Unknown Organization [facility] Address [address] [place] [address] Care Team Providers Care Metal Casket Maker Name Role Phone Britney Jarrett MD Primary Care Provider [phone] Encounter Details Date Type Department Care Team (Latest Contact Info) Description 02/25/1995 Orders Only Madelin Huber Social [...] st Contact Info) Description 10/01/2023 1:20 PM TANK BUILDER AND ERECTOR Appointment TMD at [facility] [place] [address] [facility] [place] [address] Aracelis Siddiqui, DDS, MS [address] [place] [address] documented as of this encounter Visit Diagnoses Not on filedocumented in this encounter Additional Health Concerns Infection Onset Date Last Indicated Resolved Time R/O COVID19 03/08/2020 03/08/2020 03/11/2020 1:28 AM CDT documented as of this encounter Care Teams Metal Casket Maker Relationship Specialty Start Date End Date Britney Jarrett MD [address] [place] [address] PCP - General 04/04/16 documented as of this encounter
--- OUTSIDE RECORDS SUMMARY | 2023-09-24 17:49 | XMS_ITS | Data Portability ---
Author Name Unknown Address [address] [place] [id number] Phone [phone] Organization [facility] Address [address] [place] [address] Care Team Providers Care Duty Manager Name Role Phone FILIBERTOJOE OSUNA Primary Care Provider Assessment Encounter Date Assessment Date Assessment LastModified by Organization Details LastModified Time 11/22/2020 11/22/2020 50 Y/O FEMALE, SEEN FOR EVALUATION OF A NEW 4MM RT RENAL LESION FOUND ON C.T. SCAN. TO SMALL TO REALLY EVALUATE ACCURATELY. MULTIPLE BACK SURGERIES. REVIEWED RECORDS, C.T. REPORT REVIEWED. PLAN RTC 12 MO C.T. FOLLOWUP OR FOLLOWUP AT [facility]. Not available 11/22/2020 16:05:23 Plan of Treatment Reminders Order Date Submit Date Provider Last Modified By Organization Details Last Modified Time Details Appointments None record ed. Lab None record ed. Referral None record ed. Procedures None record ed. Surgeries None record ed. Imaging None record ed. Medication Orders None record ed. Patient TargetsNo targets recorded. Patient InstructionsNo instructions recorded. Reason for Referral None Reported. Procedures Surgical History Date Name Laterality Status Provider Name and Address Organization Details Recorded Time Hernia repair w/mesh completed Khadar Theodore MD [address] [place] [address],[address], [place], [address], [facility] 11/22/2020 15:46:20 Unlisted procedure shoulder completed Khadar Theodore MD [address] [facility],[address], [place], [address], [facility] 11/22/2020 15:46:30 procedure on back completed Khadar Theodore MD [address] [place] [address],[address], [phone] 11/22/2020 15:46:41 Imaging Results None recorded. Procedure Notes None recorded. Medical Equipment None Reported. Medications Name Sig Start Date Stop Date Status Note LastModified by Organization Details LastModified Time cyclobenzapr ine 10 mg tablet TAKE ONE-HALF TO ONE TABLET BY MOUTH THREE TIMES DAILY NEEDED active Not Available Not Available No t Available azithromycin 250 mg tablet TAKE TWO TABLETS BY MOUTH ONE DOSE ON THE FIRST DAY, THEN TAKE ONE DAILY THEREAFT ER. 11/22 completed Not Available Not Available Not Available tramadol 50 mg tablet 11/22 completed Not Available Not Available Not Available cephalexin 500 mg capsule TAKE ONE CAPSULE BY MOUTH FOUR TIMES A DAY 11/22 completed Not Available Not Available Not Available diclofenac 50 mg-misoprost ol 200 mcg tablet,immed .and delayed release TAKE ONE TABLET BY MOUTH TWICE A DAY . DO NOT CRUSH OR CHEW . 11/22 completed Not Available Not Available Not Available oxycodone 5 mg tablet TAKE ONE TO TWO TABLETS BY MOUTH EVERY 4 HOURS NEEDED 11/22 completed Not Available Not Available Not Available Vitamin D3 active Not Available Not Av ailable Not Available Probiotic active Not Available Not Nancy ilable Not Available Vitals Date Recorded Body height Body mass index (BMI) Body weight Provider Name and Address Organization Details Last Updated DateTime 11/22/2020 152.4 cm 27.3 kg/m2 70393.93 g Khadar Theodore MD [address] [place] [address],[address], [phone] [place] [address] Urology 11/22/2020 15:44:06 Social History Question Answer Notes LastModified by Organizat ion Details LastModified Time Tobacco Smoking Status Never Smoker Khadar Theodore MD [address] [place] [address],[address], [phone] [place] [address] Urology 11/22/2020 15:45:34 What Was The Date Of Your Most Recent Tobacco Screening? 11/22/2020 Information not available 11/22/2020 Sex: Female Functional Status None recorded. Mental Status None recorded. Family History Nothing Reported. Medical History Condition Response Sexually Transmitted Infection N Diabetes N Other N Bleeding Disorder N High Blood Pressure N Kidney Stones N High Cholesterol N GERD/Acid Reflux N Heart Disease N Cancer N Depression N Lung Disease N Gynecological HistoryNo gynecological history recorded. Obstetrics History GPAL:G 0 P 0 0 0 0 Past Encounters Encounter ID Performer Location Encounter Start Date Encounter Closed Date Diagnosis/Indication [id number] Khadar Theodore MD [facility] [address] [place] [address] 11/22/2020 15:38:11 11/24/2020 10:13:14 Neoplasm of uncertain behavior of kidney Health Concerns Section Related Observation LastModified by Organization Detai ls LastModified Time None Recorded Concern Status LastModified by Organization Details LastModified Time None Recorded Advance Directives Directive None Recorded Payers Encounter Date Sequence Insurance Name Policy Number Policy Torres Covered Member ID Torres Member ID Guarantor Name 11/22/2020 1 [facility] [id number] Josie Booker [id number] Josie Booker Notes Date Note Type Note Provider Name and Address Organization Details Recorded Time 11/22/2020 text/html HPI Notes: 50 YOF HERE FOR A KIDNEY SYST AND LESION. 1.1 CYST ON RIGHT KIDNEY. 4MM LESION RIGHT KIDNEY. multiple back surgeries. Khadar Theodore MD [address] [facility],[address], [place], [address], [facility] 11/22/2020 16:06:23 OBGyn Episode No OBEpisode recorded.
[2023-09-24 17:52] VITALS: BP 120/76; PULSE 126; RESP 14; TEMP 36.9; O2SAT 96; BMI 28.3
--- NOTE | 2023-09-24 18:34 | ED.GENADULT ---
HPI - General Adult General Time Seen by Provider: 18:34 Date Seen: 09/24/23 Chief complaint: Nausea/Vomiting Stated complaint: Violent vomiting since 4 am Time Seen by Provider: 09/24/23 18:34 Source: patient and RN notes reviewed Mode of arrival: ambulatory Limitations: no limitations History of Present Illness HPI narrative: Josie is a very pleasant 53-year-old female with history of migraine, fatigue, hyperlipidemia who comes to the emergency room for evaluation of persistent vomiting. Patient states that she awoke early this morning at about 0400 hours and has had persistent vomiting since that time. She had 1 episode of diarrhea at the beginning of this and no episodes since. She describes it discomfort in the abdomen and she shows the epigastrium. She notes no fever or chills. She does have a headache and states her chest hurts from vomiting for so long. She notes that she has thrown up so much that there is nothing left to throw up. This has not happened to her in the past. She cannot recall eating any unusual foods and none of her family members have this. No unusual visual changes. Related Data Home Medications Medication Instructions Recorded Confirmed calcium carbonate 600 mg calcium 600 mg PO QDAY 06/23/23 09/24/23 (1,500 mg) tablet (Calcium) cholecalciferol (vitamin D3) 25 25 mcg PO QDAY 06/23/23 09/24/23 mcg (1,000 unit) capsule Allergies Allergy/AdvReac Type Severity Reaction Status Date / Time mold Allergy Unknown nasal Verified 06/23/23 15:10 congestion No Known Drug Intolerances Allergy Unknown Verified 06/23/23 15:10 shellfish derived Allergy Gastrointestinal Verified 06/23/23 15:10 Upset Review of Systems Status of ROS: Reports: 10 or more systems reviewed and unremarkable except as noted in History and below Const: Reports: fatigue; Denies: fever or chills Eyes: Denies: change in vision ENMT: Reports: nasal congestion (Chronic); Denies: throat pain or neck pain Cardio: Reports: chest pain (From vomiting); Denies: shortness of breath with exertion Resp: Denies: shortness of breath or cough GI: Reports: abdominal pain, nausea, vomiting and diarrhea : Denies: painful urination Musculo: Denies: back pain or neck pain Neuro: Reports: headache Endo: Reports: fatigue PFSH PFSH Medical History Herniated disc (02/23/09) Temporomandibular joint disorder ?M26.609 - Unspecified temporomandibular joint disorder, unspecified side (ICD-10) Post-operative nausea and vomiting ?R11.2 - Nausea with vomiting, unspecified (ICD-10) ?Z98.890 - Other specified postprocedural states (ICD-10) History of eustachian tube dysfunction ?Z86.69 - Personal history of other diseases of the nervous system and sense organs (ICD-10) Surgical History Status post trigger finger release (02/17/23) ?Z98.890 - Other specified postprocedural states (ICD-10) History of back surgery (08/2019) ?Z98.890 - Other specified postprocedural states (ICD-10) H/O bilateral breast reduction surgery ?Z98.890 - Other specified postprocedural states (ICD-10) H/O adenoidectomy ?Z90.89 - Acquired absence of other organs (ICD-10) History of carpal tunnel release (1994) ?Z98.890 - Other specified postprocedural states (ICD-10) History of tonsillectomy ?Z90.89 - Acquired absence of other organs (ICD-10) Status post cervical spinal arthrodesis (2009) ?Z98.1 - Arthrodesis status (ICD-10) History of spinal surgery (1984) ?Z98.890 - Other specified postprocedural states (ICD-10) History of shoulder surgery (2016) ?Z98.890 - Other specified postprocedural states (ICD-10) History of hernia repair ?Z98.890 - Other specified postprocedural states (ICD-10) ?Z87.19 - Personal history of other diseases of the digestive system (ICD-10) History of endometrial ablation ?Z98.890 - Other specified postprocedural states (ICD-10) History of breast augmentation ?Z98.82 - Breast implant status (ICD-10) Social History What is your current living situation?: I presently have a place to live In the past 12 months, utilities in danger of being shut off: no In past 12 months, lack of transportation kept you from medical appts, meetings, work, or getting things needed for daily living: no In the past 12 mos, have been you worried that your food would run out before you had money to buy more?: never true In the past 12 mos, the food you bought just didn't last and you didn't have money to buy more?: never true Smoking Status: Never smoker Do you use any of these nicotine containing products: None Second hand tobacco smoke exposure: No How often do you have a drink containing alcohol: 2-4 times a month How often do you have six or more drinks on one occasion: Never AUDIT-C Alcohol total score: 2 Non-prescribed substance use: denies use How often does anyone, including family, friends and others, physically hurt you: never How often does anyone, including family, friends and others, insult or talk down to you: never How often does anyone, including family, friends and others, threaten you with harm: never How often does anyone, including family, friends and others, scream or curse at you: never Little interest or pleasure in doing things: not at all Feeling down, depressed, or hopeless: several days service: No Exam Narrative: Exam Narrative: Alert and oriented. Shortly after starting our interview she had to vomit and she is retching without any vomit. EOM is full and pupils are equal round. Face symmetrical. Head is atraumatic. Heart with tachycardic rate but normal rhythm. Lungs are clear bilaterally. Abdomen shows tenderness diffusely but seems more superficial in muscular than deep. Negative Valenzuela sign. No lower extremity edema. Const: Vital Signs, click to edit/add: Vital Signs - 24 hr 09/24/23 17:52 09/24/23 21:15 Temperature 98.4 F Pulse Rate 104 H Pulse Rate [Pulse Oximeter] 126 H Respiratory Rate 14 16 Blood Pressure 104/58 L Blood Pressure [Ri ght Upper Arm] 120/76 Pulse Oximetry 96 95 Oxygen Delivery Me thod Room Air Room Air Documenting provider has reviewed patient's vital signs: yes Course Course ED Course: Differential diagnosis includes but is not limited to biliary colic, bowel obstruction, gastroenteritis, gastritis. At this time will place IV give 4 mg IV Zofran as well as 1 L of normal saline. Labs to include CBC, comprehensive panel, CRP, urinalysis, lipase. At this time consideration of CT if patient does not improved considerably. There have been no ill contacts at home and patient cannot recall any unusual food intake. Triple swab had been done prior to me seeing patient. Reevaluation(s) Reevaluation #1: Laboratory values are reassuring at this time. Patient is remarkably improved after Zofran. She still somewhat tachycardic and therefore will give 2nd L of normal saline. She is requesting something eat. We will have a trial of food. Reevaluation #2: Patient receives 2 L of saline. She notes that she has a headache we did give her Toradol which did not help quite as much as I had hoped. She states that she thinks she has a headache she has not eaten. She is given potato chips as well as Coca[employer]a. She is looking much improved. She is sitting up and not a guarding of her stomach. I think with the reassuring labs with a negative UA, normal LFTs, kidney function and white count we will be able to let her go home. I do not feel the need to pursue CT at this time given how good she is looking currently. She and her appear to be in agreement with this plan. Vital Signs Vital signs: Initial Vital Signs Temperature 98.4 F 09/24/23 17:52 Temperature Source Temporal Artery Scan 09/24/23 17:52 Pulse Rate 126 H 09/24/23 17:52 Pulse Rhythm Regular 09/24/23 17:52 Respiratory Rate 14 09/24/23 17:52 Blood Pressure 120/76 09/24/23 17:52 Blood Pressure Mean 90 09/24/23 17:52 Blood Pressure Position Sitting 09/24/23 17:52 Pulse Oximetry 96 09/24/23 17:52 Oxygen Delivery Method Room Air 09/24/23 17:52 Vital Signs Temperature 98.4 F 09/24/23 17:52 Pulse Rate 126 H 09/24/23 17:52 Respiratory Rate 14 09/24/23 17:52 Blood Pressure 120/76 09/24/23 17:52 Pulse Oximetry 96 09/24/23 17:52 Oxygen Delivery Method Room Air 09/24/23 17:52 Temperature 98.4 F 09/24/23 17:52 Pulse Rate 104 H 09/24/23 21:15 Respiratory Rate 16 09/24/23 21:15 Blood Pressure 104/58 L 09/24/23 21:15 Pulse Oximetry 95 09/24/23 21:15 Oxygen Delivery Method Room Air 09/24/23 21:15 Medications Administered Medications: Generic Name Dose Route Start Last Admin Trade Name Wilver PRN Reason Stop Dose Admin Sodium Chloride 1,000 mls @ 1,000 mls/hr 09/24/23 18:40 09/24/23 19:43 0.9 % Sodium Chloride 1000 Ml IV 09/24/23 19:39 Infused .Q1H STAN Infusion Sodium Chloride 1,000 mls @ 1,000 mls/hr 09/24/23 20:34 09/24/23 20:39 0.9 % Sodium Chloride 1000 Ml IV 09/24/23 21:33 1,000 mls/hr .Q1H STAN Administration Ketorolac Tromethamine 15 mg 09/24/23 20:13 09/24/23 20:36 Ketorolac 15 Mg/Ml Inj IVP 09/24/23 20:14 15 mg ONCE ONE Administration Ondansetron HCl 4 mg 09/24/23 18:39 09/24/23 19:06 Ondansetron 2 Mg/Ml Inj IVP 09/24/23 18:40 4 mg ONCE ONE Administration Medical Decision Making MDM Narrative Medical decision making narrative: 1. Vomiting-patient is noted to have had resolution of symptoms and now is eating able to drink. At this time I do not have explanation for her vomiting but initially she did have an episode of diarrhea so certainly this could be a viral gastroenteritis. Although no other members of the family have developed this. Her EKG was reassuring and suspect that that chest discomfort was actually sequela a of repeated vomiting. Her abdominal exam was reassuring and pain seems more superficial in muscular than deep. We did not pursue CT as she was so much improved. Patient will be discharged home on Zofran 4 mg ODT Q 8 hours p.r.n. 10. Via [employer]. 2. Headache-patient is feeling improved after eating. She does have a history of migraines and I do offer migraine cocktail but she feels that eating well helps this. 3. Disposition-home at this time. Return for worsening symptoms especially for increasing abdominal pain recurrence of vomiting and as needed. Medical Records Medical records reviewed: Yes I reviewed the patient's medical records Lab Data Lab results reviewed: Yes I reviewed the patient's lab results Labs: Lab Results 09/24/23 09/24/23 09/24/23 Range/Units 17:55 18:45 19:34 WBC 8.56 (4.50-11.00) K/uL RBC 5.18 (4.00-5.20) m/uL Hgb 15.0 (12.0-16.0) gm/dL Hct 43.9 (33.0-51.0) % MCV 85 (80-100) fL MCH 29 (26-34) pg MCHC 34 (32-36) gm/dL RDW Coeff of Loren 12.2 (11.5-15.5) % Plt Count 265 (140-440) K/uL Neut % (Auto) 84.2 H (42.0-72.0) % Lymph % (Auto) 7.0 L (20-44) % [place] % (Auto) 8.5 (0.0-11.0) % Eos % (Auto) 0.1 (0.0-7.0) % Baso % (Auto) 0.1 (0.0-3.0) % Neut # (Auto) 7.20 H (1.7-7.0) K/uL Lymph # (Auto) 0.60 L (0.90-2.90) K/uL [place] # (Auto) 0.70 (0.00-0.90) K/UL Eos # (Auto) 0.01 (0.00-0.50) K/uL Baso # (Auto) 0.01 (0.00-0.30) K/uL Abs Immat Gran (auto) 0.01 (0.00-0.30) K/uL Imm/Tot Granulo (auto) 0.1 % Sodium 138 (135-149) mmol/L Potassium 3.8 (3.6-5.1) mmol/L Chloride 104 (96-114) mmol/L Carbon Dioxide 24 (20-32) mmol/L Anion Gap 10 (7-15) mEq/L BUN 16 (7-30) mg/dL Creatinine 1.0 (0.5-1.5) mg/dL Estimated Creat Clear 45.66 Estimated GFR 67 ml/min Glucose 119 H (60-115) mg/dL Calcium 9.8 (8.4-10.6) mg/dL Total Bilirubin 0.7 (0.1-1.5) mg/dL AST 26 (12-35) U/L ALT 20 (4-35) U/L Alkaline Phosphatase 36 L (40-150) U/L C-Reactive Protein 1.7 H (0.5-1.0) mg/dL Total Protein 7.8 (6.0-8.3) g/dL Albumin 4.7 (3.3-5.0) g/dL Lipase 183 (23-300) U/L Urine Color Yellow (Yellow) Urine Appearance (Clear) Urine pH (5.0-8.5) Ur Specific [place] (1.000-1.030) Urine Protein (Negative) Urine Glucose (UA) (Negative) Urine Ketones (Negative) Urine Blood (Negative) Urine Nitrite (Negative) Urine Bilirubin (Negative) Urine Urobilinogen (0.2-1.0) Ur Leukocyte Esterase (Negative) Urine RBC (0-2) Urine WBC (0-5) Urine WBC Clumps Ur Squamous Epith Cells (None-Few) [place] Biurate Crystals Calcium Carbonate Cryst Calcium Phosphate Cryst Calcium Oxalate Crystal Cystine Crystals Uric Acid Crystals Triple Phos Crystals Sulfur Crystals Cholesterol Crystals Tyrosine Crystals Hippuric Acid Crystals Amorphous Sediment Other Sediment Urine Bacteria (None) Fatty Casts Hyaline Casts Fine Granular Casts Coarse Granular Casts Waxy Casts RBC Casts WBC Casts Other Casts Urine Starch Urine Mucus Urine Trichomonas Urine Yeast SARS-CoV-2 (PCR) Negative SARS-CoV-2 (Negative) Influenza Type A (PCR) Negative PCR FLU A (Negative) Influenza Type B (PCR) Negative PCR FLU B (Negative) RSV (PCR) Negative PCR RSV (Negative) 09/24/23 09/24/23 09/24/23 Range/Units 19:34 19:34 19:34 WBC (4.50-11.00) K/uL RBC (4.00-5.20) m/uL Hgb (12.0-16.0) gm/dL Hct (33.0-51.0) % MCV (80-100) fL MCH (26-34) pg MCHC (32-36) gm/dL RDW Coeff of Loren (11.5-15.5) % Plt Count (140-440) K/uL Neut % (Auto) (42.0-72.0) % Lymph % (Auto) (20-44) % [place] % (Auto) (0.0-11.0) % Eos % (Auto) (0.0-7.0) % Baso % (Auto) (0.0-3.0) % Neut # (Auto) (1.7-7.0) K/uL Lymph # (Auto) (0.90-2.90) K/uL [place] # (Auto) (0.00-0.90) K/UL Eos # (Auto) (0.00-0.50) K/uL Baso # (Auto) (0.00-0.30) K/uL Abs Immat Gran (auto) (0.00-0.30) K/uL Imm/Tot Granulo (auto) % Sodium (135-149) mmol/L Potassium (3.6-5.1) mmol/L Chloride (96-114) mmol/L Carbon Dioxide (20-32) mmol/L Anion Gap (7-15) mEq/L BUN (7-30) mg/dL Creatinine (0.5-1.5) mg/dL Estimated Creat Clear Estimated GFR ml/min Glucose (60-115) mg/dL Calcium (8.4-10.6) mg/dL Total Bilirubin (0.1-1.5) mg/dL AST (12-35) U/L ALT (4-35) U/L Alkaline Phosphatase (40-150) U/L C-Reactive Protein (0.5-1.0) mg/dL Total Protein (6.0-8.3) g/dL Albumin (3.3-5.0) g/dL Lipase (23-300) U/L Urine Color Cancelled (Yellow) Urine Appearance Clear Cancelled (Clear) Urine pH 5.5 Cancelled (5.0-8.5) Ur Specific [place] >= 1.030 (1.000-1.030) Urine Protein (Negative) Urine Glucose (UA) (Negative) Urine Ketones (Negative) Urine Blood (Negative) Urine Nitrite (Negative) Urine Bilirubin (Negative) Urine Urobilinogen (0.2-1.0) Ur Leukocyte Esterase (Negative) Urine RBC (0-2) Urine WBC (0-5) Urine WBC Clumps Ur Squamous Epith Cells (None-Few) [place] Biurate Crystals Calcium Carbonate Cryst Calcium Phosphate Cryst Calcium Oxalate Crystal Cystine Crystals Uric Acid Crystals Triple Phos Crystals Sulfur Crystals Cholesterol Crystals Tyrosine Crystals Hippuric Acid Crystals Amorphous Sediment Other Sediment Urine Bacteria (None) Fatty Casts Hyaline Casts Fine Granular Casts Coarse Granular Casts Waxy Casts RBC Casts WBC Casts Other Casts Urine Starch Urine Mucus Urine Trichomonas Urine Yeast SARS-CoV-2 (PCR) (Negative) Influenza Type A (PCR) (Negative) Influenza Type B (PCR) (Negative) RSV (PCR) (Negative) 09/24/23 09/24/23 09/24/23 Range/Units 19:34 19:34 19:34 WBC (4.50-11.00) K/uL RBC (4.00-5.20) m/uL Hgb (12.0-16.0) gm/dL Hct (33.0-51.0) % MCV (80-100) fL MCH (26-34) pg MCHC (32-36) gm/dL RDW Coeff of Loren (11.5-15.5) % Plt Count (140-440) K/uL Neut % (Auto) (42.0-72.0) % Lymph % (Auto) (20-44) % [place] % (Auto) (0.0-11.0) % Eos % (Auto) (0.0-7.0) % Baso % (Auto) (0.0-3.0) % Neut # (Auto) (1.7-7.0) K/uL Lymph # (Auto) (0.90-2.90) K/uL [place] # (Auto) (0.00-0.90) K/UL Eos # (Auto) (0.00-0.50) K/uL Baso # (Auto) (0.00-0.30) K/uL Abs Immat Gran (auto) (0.00-0.30) K/uL Imm/Tot Granulo (auto) % Sodium (135-149) mmol/L Potassium (3.6-5.1) mmol/L Chloride (96-114) mmol/L Carbon Dioxide (20-32) mmol/L Anion Gap (7-15) mEq/L BUN (7-30) mg/dL Creatinine (0.5-1.5) mg/dL Estimated Creat Clear Estimated GFR ml/min Glucose (60-115) mg/dL Calcium (8.4-10.6) mg/dL Total Bilirubin (0.1-1.5) mg/dL AST (12-35) U/L ALT (4-35) U/L Alkaline Phosphatase (40-150) U/L C-Reactive Protein (0.5-1.0) mg/dL Total Protein (6.0-8.3) g/dL Albumin (3.3-5.0) g/dL Lipase (23-300) U/L Urine Color (Yellow) Urine Appearance (Clear) Urine pH (5.0-8.5) Ur Specific [place] Cancelled (1.000-1.030) Urine Protein Negative Cancelled (Negative) Urine Glucose (UA) Negative Cancelled (Negative) Urine Ketones Negative (Negative) Urine Blood (Negative) Urine Nitrite (Negative) Urine Bilirubin (Negative) Urine Urobilinogen (0.2-1.0) Ur Leukocyte Esterase (Negative) Urine RBC (0-2) Urine WBC (0-5) Urine WBC Clumps Ur Squamous Epith Cells (None-Few) [place] Biurate Crystals Calcium Carbonate Cryst Calcium Phosphate Cryst Calcium Oxalate Crystal Cystine Crystals Uric Acid Crystals Triple Phos Crystals Sulfur Crystals Cholesterol Crystals Tyrosine Crystals Hippuric Acid Crystals Amorphous Sediment Other Sediment Urine Bacteria (None) Fatty Casts Hyaline Casts Fine Granular Casts Coarse Granular Casts Waxy Casts RBC Casts WBC Casts Other Casts Urine Starch Urine Mucus Urine Trichomonas Urine Yeast SARS-CoV-2 (PCR) (Negative) Influenza Type A (PCR) (Negative) Influenza Type B (PCR) (Negative) RSV (PCR) (Negative) 09/24/23 09/24/23 09/24/23 Range/Units 19:34 19:34 19:34 WBC (4.50-11.00) K/uL RBC (4.00-5.20) m/uL Hgb (12.0-16.0) gm/dL Hct (33.0-51.0) % MCV (80-100) fL MCH (26-34) pg MCHC (32-36) gm/dL RDW Coeff of Loren (11.5-15.5) % Plt Count (140-440) K/uL Neut % (Auto) (42.0-72.0) % Lymph % (Auto) (20-44) % [place] % (Auto) (0.0-11.0) % Eos % (Auto) (0.0-7.0) % Baso % (Auto) (0.0-3.0) % Neut # (Auto) (1.7-7.0) K/uL Lymph # (Auto) (0.90-2.90) K/uL [place] # (Auto) (0.00-0.90) K/UL Eos # (Auto) (0.00-0.50) K/uL Baso # (Auto) (0.00-0.30) K/uL Abs Immat Gran (auto) (0.00-0.30) K/uL Imm/Tot Granulo (auto) % Sodium (135-149) mmol/L Potassium (3.6-5.1) mmol/L Chloride (96-114) mmol/L Carbon Dioxide (20-32) mmol/L Anion Gap (7-15) mEq/L BUN (7-30) mg/dL Creatinine (0.5-1.5) mg/dL Estimated Creat Clear Estimated GFR ml/min Glucose (60-115) mg/dL Calcium (8.4-10.6) mg/dL Total Bilirubin (0.1-1.5) mg/dL AST (12-35) U/L ALT (4-35) U/L Alkaline Phosphatase (40-150) U/L C-Reactive Protein (0.5-1.0) mg/dL Total Protein (6.0-8.3) g/dL Albumin (3.3-5.0) g/dL Lipase (23-300) U/L Urine Color (Yellow) Urine Appearance (Clear) Urine pH (5.0-8.5) Ur Specific [place] (1.000-1.030) Urine Protein (Negative) Urine Glucose (UA) (Negative) Urine Ketones Cancelled (Negative) Urine Blood Trace-intact A Cancelled (Negative) Urine Nitrite Negative Cancelled (Negative) Urine Bilirubin Negative (Negative) Urine Urobilinogen (0.2-1.0) Ur Leukocyte Esterase (Negative) Urine RBC (0-2) Urine WBC (0-5) Urine WBC Clumps Ur Squamous Epith Cells (None-Few) [place] Biurate Crystals Calcium Carbonate Cryst Calcium Phosphate Cryst Calcium Oxalate Crystal Cystine Crystals Uric Acid Crystals Triple Phos Crystals Sulfur Crystals Cholesterol Crystals Tyrosine Crystals Hippuric Acid Crystals Amorphous Sediment Other Sediment Urine Bacteria (None) Fatty Casts Hyaline Casts Fine Granular Casts Coarse Granular Casts Waxy Casts RBC Casts WBC Casts Other Casts Urine Starch Urine Mucus Urine Trichomonas Urine Yeast SARS-CoV-2 (PCR) (Negative) Influenza Type A (PCR) (Negative) Influenza Type B (PCR) (Negative) RSV (PCR) (Negative) 09/24/23 09/24/23 09/24/23 Range/Units 19:34 19:34 19:34 WBC (4.50-11.00) K/uL RBC (4.00-5.20) m/uL Hgb (12.0-16.0) gm/dL Hct (33.0-51.0) % MCV (80-100) fL MCH (26-34) pg MCHC (32-36) gm/dL RDW Coeff of Loren (11.5-15.5) % Plt Count (140-440) K/uL Neut % (Auto) (42.0-72.0) % Lymph % (Auto) (20-44) % [place] % (Auto) (0.0-11.0) % Eos % (Auto) (0.0-7.0) % Baso % (Auto) (0.0-3.0) % Neut # (Auto) (1.7-7.0) K/uL Lymph # (Auto) (0.90-2.90) K/uL [place] # (Auto) (0.00-0.90) K/UL Eos # (Auto) (0.00-0.50) K/uL Baso # (Auto) (0.00-0.30) K/uL Abs Immat Gran (auto) (0.00-0.30) K/uL Imm/Tot Granulo (auto) % Sodium (135-149) mmol/L Potassium (3.6-5.1) mmol/L Chloride (96-114) mmol/L Carbon Dioxide (20-32) mmol/L Anion Gap (7-15) mEq/L BUN (7-30) mg/dL Creatinine (0.5-1.5) mg/dL Estimated Creat Clear Estimated GFR ml/min Glucose (60-115) mg/dL Calcium (8.4-10.6) mg/dL Total Bilirubin (0.1-1.5) mg/dL AST (12-35) U/L ALT (4-35) U/L Alkaline Phosphatase (40-150) U/L C-Reactive Protein (0.5-1.0) mg/dL Total Protein (6.0-8.3) g/dL Albumin (3.3-5.0) g/dL Lipase (23-300) U/L Urine Color (Yellow) Urine Appearance (Clear) Urine pH (5.0-8.5) Ur Specific [place] (1.000-1.030) Urine Protein (Negative) Urine Glucose (UA) (Negative) Urine Ketones (Negative) Urine Blood (Negative) Urine Nitrite (Negative) Urine Bilirubin Cancelled (Negative) Urine Urobilinogen 0.2 Cancelled (0.2-1.0) Ur Leukocyte Esterase Negative Cancelled (Negative) Urine RBC 0-2 (0-2) Urine WBC (0-5) Urine WBC Clumps Ur Squamous Epith Cells (None-Few) [place] Biurate Crystals Calcium Carbonate Cryst Calcium Phosphate Cryst Calcium Oxalate Crystal Cystine Crystals Uric Acid Crystals Triple Phos Crystals Sulfur Crystals Cholesterol Crystals Tyrosine Crystals Hippuric Acid Crystals Amorphous Sediment Other Sediment Urine Bacteria (None) Fatty Casts Hyaline Casts Fine Granular Casts Coarse Granular Casts Waxy Casts RBC Casts WBC Casts Other Casts Urine Starch Urine Mucus Urine Trichomonas Urine Yeast SARS-CoV-2 (PCR) (Negative) Influenza Type A (PCR) (Negative) Influenza Type B (PCR) (Negative) RSV (PCR) (Negative) 09/24/23 09/24/23 09/24/23 Range/Units 19:34 19:34 19:34 WBC (4.50-11.00) K/uL RBC (4.00-5.20) m/uL Hgb (12.0-16.0) gm/dL Hct (33.0-51.0) % MCV (80-100) fL MCH (26-34) pg MCHC (32-36) gm/dL RDW Coeff of Loren (11.5-15.5) % Plt Count (140-440) K/uL Neut % (Auto) (42.0-72.0) % Lymph % (Auto) (20-44) % [place] % (Auto) (0.0-11.0) % Eos % (Auto) (0.0-7.0) % Baso % (Auto) (0.0-3.0) % Neut # (Auto) (1.7-7.0) K/uL Lymph # (Auto) (0.90-2.90) K/uL [place] # (Auto) (0.00-0.90) K/UL Eos # (Auto) (0.00-0.50) K/uL Baso # (Auto) (0.00-0.30) K/uL Abs Immat Gran (auto) (0.00-0.30) K/uL Imm/Tot Granulo (auto) % Sodium (135-149) mmol/L Potassium (3.6-5.1) mmol/L Chloride (96-114) mmol/L Carbon Dioxide (20-32) mmol/L Anion Gap (7-15) mEq/L BUN (7-30) mg/dL Creatinine (0.5-1.5) mg/dL Estimated Creat Clear Estimated GFR ml/min Glucose (60-115) mg/dL Calcium (8.4-10.6) mg/dL Total Bilirubin (0.1-1.5) mg/dL AST (12-35) U/L ALT (4-35) U/L Alkaline Phosphatase (40-150) U/L C-Reactive Protein (0.5-1.0) mg/dL Total Protein (6.0-8.3) g/dL Albumin (3.3-5.0) g/dL Lipase (23-300) U/L Urine Color (Yellow) Urine Appearance (Clear) Urine pH (5.0-8.5) Ur Specific [place] (1.000-1.030) Urine Protein (Negative) Urine Glucose (UA) (Negative) Urine Ketones (Negative) Urine Blood (Negative) Urine Nitrite (Negative) Urine Bilirubin (Negative) Urine Urobilinogen (0.2-1.0) Ur Leukocyte Esterase (Negative) Urine RBC Cancelled (0-2) Urine WBC 0-2 Cancelled (0-5) Urine WBC Clumps Cancelled Ur Squamous Epith Cells None Cancelled (None-Few) [place] Biurate Crystals Cancelled Calcium Carbonate Cryst Cancelled Calcium Phosphate Cryst Cancelled Calcium Oxalate Crystal Cancelled Cystine Crystals Cancelled Uric Acid Crystals Cancelled Triple Phos Crystals Cancelled Sulfur Crystals Cancelled Cholesterol Crystals Cancelled Tyrosine Crystals Cancelled Hippuric Acid Crystals Cancelled Amorphous Sediment Cancelled Other Sediment Cancelled Urine Bacteria None (None) Fatty Casts Hyaline Casts Fine Granular Casts Coarse Granular Casts Waxy Casts RBC Casts WBC Casts Other Casts Urine Starch Urine Mucus Urine Trichomonas Urine Yeast SARS-CoV-2 (PCR) (Negative) Influenza Type A (PCR) (Negative) Influenza Type B (PCR) (Negative) RSV (PCR) (Negative) 09/24/23 Range/Units 19:34 WBC (4.50-11.00) K/uL RBC (4.00-5.20) m/uL Hgb (12.0-16.0) gm/dL Hct (33.0-51.0) % MCV (80-100) fL MCH (26-34) pg MCHC (32-36) gm/dL RDW Coeff of Loren (11.5-15.5) % Plt Count (140-440) K/uL Neut % (Auto) (42.0-72.0) % Lymph % (Auto) (20-44) % [place] % (Auto) (0.0-11.0) % Eos % (Auto) (0.0-7.0) % Baso % (Auto) (0.0-3.0) % Neut # (Auto) (1.7-7.0) K/uL Lymph # (Auto) (0.90-2.90) K/uL [place] # (Auto) (0.00-0.90) K/UL Eos # (Auto) (0.00-0.50) K/uL Baso # (Auto) (0.00-0.30) K/uL Abs Immat Gran (auto) (0.00-0.30) K/uL Imm/Tot Granulo (auto) % Sodium (135-149) mmol/L Potassium (3.6-5.1) mmol/L Chloride (96-114) mmol/L Carbon Dioxide (20-32) mmol/L Anion Gap (7-15) mEq/L BUN (7-30) mg/dL Creatinine (0.5-1.5) mg/dL Estimated Creat Clear Estimated GFR ml/min Glucose (60-115) mg/dL Calcium (8.4-10.6) mg/dL Total Bilirubin (0.1-1.5) mg/dL AST (12-35) U/L ALT (4-35) U/L Alkaline Phosphatase (40-150) U/L C-Reactive Protein (0.5-1.0) mg/dL Total Protein (6.0-8.3) g/dL Albumin (3.3-5.0) g/dL Lipase (23-300) U/L Urine Color (Yellow) Urine Appearance (Clear) Urine pH (5.0-8.5) Ur Specific [place] (1.000-1.030) Urine Protein (Negative) Urine Glucose (UA) (Negative) Urine Ketones (Negative) Urine Blood (Negative) Urine Nitrite (Negative) Urine Bilirubin (Negative) Urine Urobilinogen (0.2-1.0) Ur Leukocyte Esterase (Negative) Urine RBC (0-2) Urine WBC (0-5) Urine WBC Clumps Ur Squamous Epith Cells (None-Few) Korey Biurate Crystals Calcium Carbonate Cryst Calcium Phosphate Cryst Calcium Oxalate Crystal Cystine Crystals Uric Acid Crystals Triple Phos Crystals Sulfur Crystals Cholesterol Crystals Tyrosine Crystals Hippuric Acid Crystals Amorphous Sediment Other Sediment Urine Bacteria Cancelled (None) Fatty Casts Cancelled Hyaline Casts Cancelled Fine Granular Casts Cancelled Coarse Granular Casts Cancelled Waxy Casts Cancelled RBC Casts Cancelled WBC Casts Cancelled Other Casts Cancelled Urine Starch Cancelled Urine Mucus Cancelled Urine Trichomonas Cancelled Urine Yeast Cancelled SARS-CoV-2 (PCR) (Negative) Influenza Type A (PCR) (Negative) Influenza Type B (PCR) (Negative) RSV (PCR) (Negative) ECG Data Attestation: I personally reviewed and interpreted this ECG as follows: Interpretation: EKG by my read shows sinus rhythm at a rate of 97. Rather wondering baseline but I do not note any acute ST or T-wave changes. Discharge Plan Discharge Clinical Impression: Abdominal pain with vomiting Patient Disposition: Home, Self-Care Condition: Improved Additional Instructions: Suggest pushing fluids. Zofran may be used as needed for nausea. However, please return for continued vomiting, worsening pain and as needed. Prescriptions: No Action cholecalciferol (vitamin D3) 25 mcg (1,000 unit) capsule 25 mcg PO QDAY calcium carbonate [Calcium 600] 600 mg calcium (1,500 mg) tablet 600 mg PO QDAY Follow Up/Referrals: Jennifer De La Vega MD [Primary Care Provider] - Stand Alone Forms: MyHealth Info Instructions
[2023-09-24 18:46] LABS: PCR FLU A Negative PCR FLU A (Negative); PCR FLU B Negative PCR FLU B (Negative); PCR RSV Negative PCR RSV (Negative); SARS PCR* Negative SARS-CoV-2 (Negative)
[2023-09-24 19:03] LABS: Basophils Absolute Auto 0.01 K/uL (0.00-0.30); Basophils Percent Auto 0.1 % (0.0-3.0); Eosinophils Absolute Auto 0.01 K/uL (0.00-0.50); Eosinophils Percent Auto 0.1 % (0.0-7.0); Hematocrit 43.9 % (33.0-51.0); Immature Granulocytes Abs Auto 0.01 K/uL (0.00-0.30); Immature Granulocytes Pct Auto 0.1 %; Mean Corpuscular HGB Conc 34 gm/dL (32-36); Mean Corpuscular Hemoglobin 29 pg (26-34); Mean Corpuscular Volume 85 fL (80-100); Monocytes Percent Auto 8.5 % (0.0-11.0); Neutrophils Percent Auto 84.2 % (42.0-72.0); Platelet Count* 265 K/uL (140-440); RDW Coefficient of Variation % 12.2 % (11.5-15.5); Red Blood Count 5.18 m/uL (4.00-5.20); White Blood Count* 8.56 K/uL (4.50-11.00)
[2023-09-24] MEDS: 0.9 % SODIUM CHLORIDE 1000 ml 1,000 ML IV ×2 (19:06→20:39)
[2023-09-24] MEDS: ONDANSETRON 2 MG/ML inj 4 MG IVP (19:06)
[2023-09-24 19:07] LABS: Slide Review Reflex No
--- OUTSIDE RECORDS SUMMARY | 2023-09-24 19:15 | XMS_ITS | Continuity of Care Document ---
Author Name Unknown Organization [facility] Address [address] [address] [place] [address] Phone Care Team Providers Care Spice Miller Name Role Phone Richard Mullins MD Unavailable [...] Encounter [facility], [address] [address], [place], [id number], [place] tel:[phone] [facility] No Information 2 Harpreet Ramos. [address] [facility], [place], [place], [id number] , [place]. tel: [phone] [facility], [address] [address], [place], [place], [address], [place] tel:[phone] [facility] No Information 2 Harpreet Ramos. [address] [facility] [address], [place], [place], [address] , [place]. tel: [phone] Established Level 4 [facility], [address] [address], [place], [id number], [place] tel:[phone] [facility] GI Symptoms or Concerns (chief complaint) Oropharyngeal dysphagia 2 Harpreet Ramos. [address] [facility] [address], [place], [place], [id number] , [place]. tel: [phone] Referring Provider: Referral Self, USE FOR SELF REFERRALS. [facility], [address] [address], [place], [id number], [place] tel:[phone] [facility] No Information 2 Min MD Mcqueen. [address] [facility] [address], [place], [place], [address] , [place]. tel: [phone] [facility], [address] [address], [place], [address], [place] tel:[phone] [facility] Gastroesophageal reflux disease without esophagitis 2 Min MD Mcqueen. [address] [facility] [address], [place], [place], [id number] , [place]. tel: [phone] [facility], [address] [address], [place], [address], [place] tel:[phone] [facility] GI Symptoms or Concerns (chief complaint) Chronic GERDEsophageal dysphagiaDysphagi a, unspecifiedHeartb urnDysphagia, unspecified 2 Sera Kraft. [address] [facility] [address], [address], [place], [place], [address] , [place]. tel:[phone] Referring Provider: Referral Self, USE FOR SELF REFERRALS. Office Cons New/estab Mod [facility], [address] [address], [place], [id number], [place] tel:[phone] [facility] GI Symptoms or Concerns (chief complaint) Gastroesophageal reflux disease, unspecified whether esophagitis presentDysphagia, unspecified typeEpigastric abdominal painHoarseness of voice 2 Min MD Mcqueen. [address] [facility], [place], [address] , [place]. tel:[phone] Referring Provider: Matt Erazo MD, [address] [facility] [place], [address]. tel:[phone] [facility], [address] [address], [place], [address], [place] tel:[phone] [facility] No Information 2 Parish Carranza. [address] [facility], [place], [address] , [place]. tel:[phone] Family History Family Member Type Diagnosis Age [...] Registry Payers Payer name Insurance type Covered republican ID Authoriza ticecil(s) Blue Cross Of [facility] [id number] Social History Type Description Quantity Date Captured [...]
--- OUTSIDE RECORDS SUMMARY | 2023-09-24 19:16 | XMS_ITS | Encounter Summary ---
Author Name Unknown Organization [facility] Address [address] [place] [address] Care Team Providers Care Safe And Vault Service Mechanic Name Role Phone Britney Jarrett MD [...] st Contact Info) Description 10/01/2023 1:20 PM COBOL ENGINEER Appointment TMD at [facility] [place] [address] [facility] [place] [address] Aracelis Siddiqui, DDS, MS [address] [place] [address] documented as of this encounter Visit Diagnoses Not on filedocumented in this encounter Additional Health Concerns Infection Onset Date Last Indicated Resolved Time R/O COVID19 03/08/2020 03/08/2020 03/11/2020 1:28 AM CDT documented as of this encounter Care Teams Safe And Vault Service Mechanic Relationship Specialty Start Date End Date Britney Jarrett MD [address] [place] [address] PCP - General 04/04/16 documented as of this encounter
--- OUTSIDE RECORDS SUMMARY | 2023-09-24 19:16 | XMS_ITS | Encounter Summary ---
Author Name Unknown Organization [facility] Address [address] [place] [address] Care Team Providers Care Edge Stainer Machine Name Role Phone Britney Jarrett MD Primary Care Provider [phone] Encounter Details Date Type Department Care Team [...] st Contact Info) Description 10/01/2023 1:20 PM SENIOR CATEGORY MANAGER Appointment TMD at [facility] [place] [address] [employer] [facility] [employer] [facility] [place] [address] Aracelis Siddiqui, DDS, MS [address] [place] [address] documented as of this encounter Visit Diagnoses Not on filedocumented in this encounter Additional Health Concerns Infection Onset Date Last Indicated Resolved Time R/O COVID19 03/08/2020 03/08/2020 03/11/2020 1:28 AM CDT documented as of this encounter Care Teams Edge Stainer Machine Relationship Specialty Start Date End Date Britney Jarrett MD [address] [place] [address] PCP - General 04/04/16 documented as of this encounter
--- OUTSIDE RECORDS SUMMARY | 2023-09-24 19:16 | XMS_ITS | Clinical Summary ---
Author Name Unknown Organization [facility] Address [address] [place] [address] Care Team Providers Care Board Turner Name Role Phone Britney Jarrett MD Primary Care Provider [phone] Source Comments You are receiving this document as you are listed as the primary care provider,follow-up provider, or the patient has been referred to you for consultation.This is in compliance with the Medicare and[facility] EHR Incentive Program,which states Providers who [...] st Contact Info) Description 10/01/2023 1:20 PM COMPONENT ASSEMBLER Appointment TMD at [facility] [place] [address] [place] [address] Aracelis Siddiqui, DDS, MS [address] [place], [place] [id number] Health Maintenance Due Date Last Done Comments [...] this topic Medical Devices Implanted Type Area Small Equipment Operator Device Identifier Shelf Expiration Date Model / Serial / Lot Scr Deepa Rader - [id number] Implanted:Qty: 1 on 10/02/2017 by Terrell Mccarthy MD at [facility] Right: SHOULDER [employer] 05/03/2019 [id number] / 0 / [id number] Procedures Procedure Name Priority Date/Time Associated Diagnosis Comments PAP TEST, ROUTINE Routine 02/05/2007 2:4 0 PM CDT Screening for Malignant Neoplasm of the Cervix LIPID PANEL, FAST > 12 HOUR Routine 02/02/2007 8:24 AM CDT Screening for Lipoid Disorders MAMMOGRAM, BILATERAL DIAGNOSTI 10/25/1997 12:00 AM COMPONENT ASSEMBLER Lump Or Mass In Breast Family Hx-Breast Malig from Last 3 Months or Most Recently Relevant to Health Maintenance Results * PAP TEST, ROUTINE [[id number]] (02/05/2007 2:40 PM CDT) Cytology, Pap (NOTE) Meter Tester Cytology Report Patient Name: JOSIE THOMASON Taken: 02/05/2007 Received: 02/06/2007 Reported: 02/16/2007 Physician(s): MADISYN SMALLS ([id number]) ?Source of Specimen Liquid routine Pap, cervical/endocervi [...] testing requested with interpretation of ASCUS ? [facility] 02/05/2007 2:40 PM CDT 02/06/2007 6:18 AM CDT Madisyn Smalls APRN, [facility]_1 Performing Organization Address [facility] de Phone Number [facility] [address] [phone] * CHOLESTEROL LIPID PANEL FAST >12HR (02/02/2007 8:24 AM CDT) Cholesterol 154 <200 mg/dl [facility] Triglyceride 70 <200 mg/dl [facility] HDL 62 >35 mg/dl [facility] LDL, Calc. 78 mg/dl [facility] Hours Fasting 12 hours [facility] 02/02/2007 8:24 AM CDT 02/02/2007 8:25 AM CDT Madisyn Smalls APRN, [facility]1 Performing Organization Address [facility] de Phone Number [facility] [address] [place] [phone] * MAMMOGRAM, BILATERAL DIAGNOSTIC (10/25/1997 12:00 AM COMPONENT ASSEMBLER) Anatomical Region Laterality Modality Breast Other 10/25/1997 [...] 4:09 PM 03/07/2005 4:09 PM Care Teams Board Turner Relationship Specialty Start Date End Date Britney Jarrett MD [address] [place] [address] PCP - General 04/04/16
--- OUTSIDE RECORDS SUMMARY | 2023-09-24 19:16 | XMS_ITS | Encounter Summary ---
Author Name Unknown Organization [facility] Address [address] [place] [address] Care Team Providers Care Artillery Specialist Name Role Phone Britney Jarrett MD Primary Care Provider [phone] Encounter Details Date Type Department Care Team [...] st Contact Info) Description 10/01/2023 1:20 PM AIR TRAFFIC CONTROL SPECIALIST CENTER Appointment TMD at [facility] [place] [address] [facility] [place] [address] Aracelis Siddiqui, DDS, MS [address] [place] [address] documented as of this encounter Visit Diagnoses Not on filedocumented in this encounter Additional Health Concerns Infection Onset Date Last Indicated Resolved Time R/O COVID19 03/08/2020 03/08/2020 03/11/2020 1:28 AM CDT documented as of this encounter Care Teams Artillery Specialist Relationship Specialty Start Date End Date Britney Jarrett MD [address] [place] [address] PCP - General 04/04/16 documented as of this encounter
--- OUTSIDE RECORDS SUMMARY | 2023-09-24 19:16 | XMS_ITS | Encounter Summary ---
Author Name Unknown Organization [facility] Address [address] [address] Care Team Providers Care Forest Resources Professor Name Role Phone Britney Jarrett MD Primary Care Provider [phone] Encounter Details Date Type Department Care Team (Latest Contact Info) Description 12/18/1995 Orders Only Bandar Santamaria MD [address] [place] [address] Social History Tobacco Use Types Packs/Day Years Used Date Smoking Tobacco: Never Assessed Sex and Gender Information Value Date Recorded Sex Assigned at Not on file Gender Identity Not on file Sexual Orientation Not on file documented as of this encounter Plan of Treatment Upcoming Encounters Date Type Department Care Team (Late st Contact Info) Description 10/01/2023 1:20 PM SHUTTLE FINAL INSPECTOR Appointment TMD at [facility] [address] [facility] [place] [address] Aracelis Siddiqui, E[place], MS [address] [place] [address] documented as of this encounter Visit Diagnoses Not on filedocumented in this encounter Additional Health Concerns Infection Onset Date Last Indicated Resolved Time R/O COVID19 03/08/2020 03/08/2020 03/11/2020 1:28 AM CDT documented as of this encounter Care Teams Forest Resources Professor Relationship Specialty Start Date End Date Britney Jarrett MD [address] [place] [address] PCP - General 04/04/16 documented as of this encounter
--- OUTSIDE RECORDS SUMMARY | 2023-09-24 19:16 | XMS_ITS | Referral Summary ---
Author Name Unknown Organization [facility] Address [address] [place] [address]. [place] [address] Care Team Providers Care Wood Products Manufacturer Name Role Phone Clinic, [facility] Primary Care Provider Allergies No known active [...] 58.5 kg (129 lb) 06/24/2014 7:51 PM DENITRATOR Height 152.4 cm (5') 06/24/2014 7:51 PM DENITRATOR Body Mass Index 25.19 06/24/2014 7:51 PM DENITRATOR Plan of Treatment Not on file Procedures Procedure Name Priority Date/Time Associated Diagnosis Comments CT IMAGING - HIM SCAN 07/04/2023 12:00 AM DENITRATOR from Last 3 Months Results * CT IMAGING - HIM SCAN (07/04/2023 12:00 AM DENITRATOR) Anatomical Region Laterality Modality Computed Tomogra phy 07/04/[address] ORDERABLES from Last 3 Months Care Teams Wood Products Manufacturer Relationship Specialty Start Date End Date Clinic, [address] [address] PCP - General 05/09/18
--- OUTSIDE RECORDS SUMMARY | 2023-09-24 19:16 | XMS_ITS | Continuity of Care Document ---
Author Name Unknown Organization [facility] Address [address] [address] [place] [address] Phone Care Team Providers Care Health And Wellness Advisor Name Role Phone Richard Mullins MD Unavailable [...] Encounter [facility], [address] [address], [place], [id number], [place] tel:[phone] [facility] No Information 2 Harpreet Ramos. [address] [facility], [place], [place], [id number] , [place]. tel: [phone] [facility], [address] [address], [place], [address], [place] tel:[phone] [facility] No Information 2 Harpreet Ramos. [address] [facility] [address], [place], [place], [address] , [place]. tel: [phone] Established Level 4 [facility], [address] [address], [place], [address], [place] tel:[phone] [facility] GI Symptoms or Concerns (chief complaint) Oropharyngeal dysphagia 2 Harpreet Ramos. [address] [facility] [address], [place], [place], [address] , [place]. tel: [phone] Referring Provider: Referral Self, USE FOR SELF REFERRALS. [facility], [address] [address], [place], [address], [place] tel:[phone] [facility] No Information 2 Min MD Mcqueen. [address] [facility] [address], [place], [place], [address] , [place]. tel: [phone] [facility], [address] [address], [place], [address], [place] tel:[phone] [facility] Gastroesophageal reflux disease without esophagitis 2 Min MD Mcqueen. [address] [facility] [address], [place], [place], [address] , [place]. tel: [phone] [facility], [address] [address], [place], [address], [place] tel:[phone] [facility] GI Symptoms or Concerns (chief complaint) Chronic GERDEsophageal dysphagiaDysphagi a, unspecifiedHeartb urnDysphagia, unspecified 2 Sera Kraft. [address] [facility] [address], [place], [address] , [place]. tel:[phone] Referring Provider: Referral Self, USE FOR SELF REFERRALS. Office Cons New/estab Mod [facility], [address] [address], [place], [address], [place] tel:[phone] [facility] GI Symptoms or Concerns (chief complaint) Gastroesophageal reflux disease, unspecified whether esophagitis presentDysphagia, unspecified typeEpigastric abdominal painHoarseness of voice 2 Min MD Mcqueen. [address] [facility], [place], [address] , [place]. tel:[phone] Referring Provider: Matt Erazo MD, [address] [facility], [address]. tel:[phone] [facility], [address] [address], [place], [address], [place] tel:[phone] [facility] No Information 2 Parish Carranza. [address] [facility], [place], [address] , [place]. tel:[phone] Family History Family Member Type Diagnosis Age [...] libertarian ID Authoriza ticecil(s) Blue Cross Of [facility] [id number] Social History Type Description Quantity Date Captured [...]
--- OUTSIDE RECORDS SUMMARY | 2023-09-24 19:16 | XMS_ITS | Encounter Summary ---
Author Name Unknown Organization [facility] Address [address], [place] [address] Care Team Providers Care Tissue Technician Name Role Phone Britney Jarrett MD Primary Care Provider [phone] Encounter Details Date Type Department Care Team (Latest Contact Info) Description 06/04/1995 Orders Only Harris Jarrett MD [address] [place] [address] Social History Tobacco Use Types Packs/Day Years Used Date Smoking Tobacco: Never Assessed Sex and Gender Information Value Date Recorded Sex Assigned at Not on file Gender Identity Not on file Sexual Orientation Not on file documented as of this encounter Plan of Treatment Upcoming Encounters Date Type Department Care Team (Late st Contact Info) Description 10/01/2023 1:20 PM LIABILITY CLAIMS ADJUSTER Appointment TMD at [facility] [address] [place] [address] Aracelis Siddiqui, [place], MS [address] [place] [address] documented as of this encounter Visit Diagnoses Not on filedocumented in this encounter Additional Health Concerns Infection Onset Date Last Indicated Resolved Time R/O COVID19 03/08/2020 03/08/2020 03/11/2020 1:28 AM CDT documented as of this encounter Care Teams Tissue Technician Relationship Specialty Start Date End Date Britney Jarrett MD [address] [place] [address] PCP - General 04/04/16 documented as of this encounter
--- OUTSIDE RECORDS SUMMARY | 2023-09-24 19:16 | XMS_ITS | Clinical Summary ---
Author Name Unknown Organization [facility] Address [place], [place] [address] Care Team Providers Care National Opelint Analyst Name Role Phone Nonstaff, Doctor Primary Care [...] age to complete this topic Care Teams National Opelint Analyst Relationship Specialty Start Date End Date Nonstaff, Doctor NON STAFF DOCTOR PCP - General 06/14/11
--- OUTSIDE RECORDS SUMMARY | 2023-09-24 19:16 | XMS_ITS | Clinical Summary ---
Author Name Unknown Organization [facility] Address [address] [place] [address]. [place] [address] Care Team Providers Care Santa'S Helper Name Role Phone Clinic, [facility] Primary Care Provider Allergies No known active [...] 58.5 kg (129 lb) 06/24/2014 7:51 PM BAND TUMBLER Height 152.4 cm (5') 06/24/2014 7:51 PM BAND TUMBLER Body Mass Index 25.19 06/24/2014 7:51 PM BAND TUMBLER Plan of Treatment Health Maintenance Due Date [...] IMAGING - HIM SCAN 07/04/2023 12:00 AM BAND TUMBLER from Last 3 Months Results * CT IMAGING - HIM SCAN (07/04/2023 12:00 AM BAND TUMBLER) Anatomical Region Laterality Modality Computed Tomogra phy 07/04/[address] ORDERABLES from Last 3 Months Care Teams Santa'S Helper Relationship Specialty Start Date End Date Clinic, [place] [id number] [place] [address] PCP - General 05/09/18
--- OUTSIDE RECORDS SUMMARY | 2023-09-24 19:16 | XMS_ITS | Encounter Summary ---
Author Name Unknown Organization [facility] Address [address] [address] Care Team Providers Care Health Lead Name Role Phone Britney Jarrett MD Primary Care Provider [phone] Encounter Details Date Type Department Care Team (Latest Contact Info) Description 02/18/1998 Orders Only [place] [address] Social History Tobacco Use Types Packs/Day Years Used Date Smoking Tobacco: Never Assessed Sex and Gender Information Value Date Recorded Sex Assigned at Not on file Gender Identity Not on file Sexual Orientation Not on file documented as of this encounter Plan of Treatment Upcoming Encounters Date Type Department Care Team (Late st Contact Info) Description 10/01/2023 1:20 PM WATERMELON HARVESTING SUPERVISOR Appointment TMD at [facility] [address] [facility] [address] Aracelis Siddiqui, E[place], MS [address] [place] [address] documented as of this encounter Visit Diagnoses Not on filedocumented in this encounter Additional Health Concerns Infection Onset Date Last Indicated Resolved Time R/O COVID19 03/08/2020 03/08/2020 03/11/2020 1:28 AM CDT documented as of this encounter Care Teams Health Lead Relationship Specialty Start Date End Date Britney Jarrett MD [address] [place] [address] PCP - General 04/04/16 documented as of this encounter
--- OUTSIDE RECORDS SUMMARY | 2023-09-24 19:16 | XMS_ITS | Encounter Summary ---
Author Name Unknown Organization [facility] Address [address] [address] Care Team Providers Care Education Department Chair Name Role Phone Britney Jarrett MD Primary Care Provider [phone] Encounter Details Date Type Department Care Team (Latest Contact Info) Description 01/23/2000 Orders Only Madelin Becerril MD [address] [place] [address] Social History Tobacco Use Types Packs/Day Years Used Date Smoking Tobacco: Never Assessed Sex and Gender Information Value Date Recorded Sex Assigned at Not on file Gender Identity Not on file Sexual Orientation Not on file documented as of this encounter Plan of Treatment Upcoming Encounters Date Type Department Care Team (Late st Contact Info) Description 10/01/2023 1:20 PM BENCH WORKER HOLLOW HANDLE Appointment TMD at [facility] [place] [address] [place] [address] Aracelis Siddiqui, ERIKAS, MS [address] [place] [address] documented as of this encounter Visit Diagnoses Not on filedocumented in this encounter Additional Health Concerns Infection Onset Date Last Indicated Resolved Time R/O COVID19 03/08/2020 03/08/2020 03/11/2020 1:28 AM CDT documented as of this encounter Care Teams Education Department Chair Relationship Specialty Start Date End Date Britney Jarrett MD [address] [place] [address] PCP - General 04/04/16 documented as of this encounter
--- OUTSIDE RECORDS SUMMARY | 2023-09-24 19:16 | XMS_ITS | Encounter Summary ---
Author Name Unknown Organization [facility] Address [address], [place] [address] Care Team Providers Care Circuits Engineer Name Role Phone Britney Jarrett MD Primary Care Provider [phone] Encounter Details Date Type Department Care Team [...] (Late Contact Info) Description 10/01/2023 1:20 PM CROP NUTRITION SCIENTIST Appointment TMD at [facility] [address] [facility] [place] [address] Aracelis Siddiqui, DDS, MS [address] [place] [address] documented as of this encounter Visit Diagnoses Not on filedocumented in this encounter Additional Health Concerns Infection Onset Date Last Indicated Resolved Time R/O COVID19 03/08/2020 03/08/2020 03/11/2020 1:28 AM CDT documented as of this encounter Care Teams Circuits Engineer Relationship Specialty Start Date End Date Britney Jarrett MD [address] [place] [address] PCP - General 04/04/16 documented as of this encounter
[2023-09-24 19:27] LABS: Chloride* 104 mmol/L (96-114); Sodium* 138 mmol/L (135-149)
[2023-09-24 19:28] LABS: Albumin* 4.7 g/dL (3.3-5.0); Potassium* 3.8 mmol/L (3.6-5.1)
[2023-09-24 19:31] LABS: Alanine Aminotransferase* 20 U/L (4-35); Alkaline Phosphatase* 36 U/L (40-150); Anion Gap 10 mEq/L (7-15); Aspartate Amino Transferase* 26 U/L (12-35); Bilirubin Total* 0.7 mg/dL (0.1-1.5); Blood Urea Nitrogen* 16 mg/dL (7-30); Calcium* 9.8 mg/dL (8.4-10.6); Carbon Dioxide* 24 mmol/L (20-32); Est. Creatinine Clearance* 45.66; Estimated Glomerular Filt Rate 67 ml/min; Glucose* 119 mg/dL (60-115); Lipase* 183 U/L (23-300); Total Protein* 7.8 g/dL (6.0-8.3)
[2023-09-24 19:34] LABS: C Reactive Protein* 1.7 mg/dL (0.5-1.0)
[2023-09-24 19:51] LABS: Appearance Urine Clear (Clear); Bilirubin Urine Negative (Negative); Blood Urine Trace-intact (Negative); Color Urine Yellow (Yellow); Glucose Urine Negative (Negative); Ketones Urine Negative (Negative); Leukocyte Esterase Urine Negative (Negative); Nitrite Urine Negative (Negative); Protein Urine Negative (Negative); Specific Gravity Urine >= 1.030 (1.000-1.030); Urobilinogen Urine 0.2 (0.2-1.0); pH Urine 5.5 (5.0-8.5)
[2023-09-24 20:06] LABS: RBC Urine 0-2 (0-2); WBC Urine 0-2 (0-5)
[2023-09-24] MEDS: KETOROLAC 15 MG/ML inj IVP (20:36)
[2023-09-24 21:15] VITALS: BP 104/58; PULSE 104; RESP 16; O2SAT 95
== END 2023-09-24 21:47 | disposition home or self-care (01) ==
PROVIDERS: Emergency Provider Family Medicine; PCP Family Medicine
DX: R11.10 Vomiting, unspecified (principal); R10.9 Unspecified abdominal pain
CPT/HCPCS: 36415; 80053; 81001; 83690; 84484; 85025; 86140; 87631; 93005; 96374; 96375; 99284; J1885; J2405; J7030

== ENCOUNTER 2024-02-02 13:05 | Outpatient (CLI) | payer BC, SELFPAY ==
--- NOTE | 2024-02-02 13:00 | CRLHL7_ITS ---
For Patients: As a result of the Century Cures Act, medical imaging exams and procedure reports are released immediately into your electronic medical record. You may view this report before your referring provider. If you have questions, please contact your health care provider. BILATERAL SCREENING MAMMOGRAM WITH COMPUTER-AIDED DETECTION AND TOMOSYNTHESIS TECHNIQUE: CC, MLO and Implant displaced views were obtained. These mammographic images have been obtained using full-field digital technique. These mammographic images were interpreted with the benefit of computer-aided detection. Breast Tomosynthesis was used in this interpretation. COMPARISON FILM: 08/27/21, 02/13/21, 02/09/20. FINDINGS: There are scattered areas of fibroglandular density. IMPRESSION: There is no radiographic evidence for malignancy. ASSESSMENT: BI-RADS Category 2: Benign RECOMMENDATION: Routine screening mammogram in 1 year. A lay language report of this examination will be provided to the patient. Noe Baxter M.D. Diagnostic Radiologist [email or web address] SP/Dictated by: Noe Baxter MD @ 02/04/2024 1:47:00 PM (Electronically Signed)
--- OUTSIDE RECORDS SUMMARY | 2024-02-02 13:09 | XMS_ITS | Encounter Summary ---
Author Organization [facility] Address [address] [place] [address] Care Team Providers Care Die Finisher Forging Name Role Phone Britney Jarrett MD Primary Care Provider [phone] Encounter Details Date Type Department Care Team (Latest Contact Info) Description 01/23/2000 Orders Only Madelin Becerril MD [address] [place] [address] Social History Tobacco Use Types Packs/Day Years Used Date Smoking Tobacco: Never Assessed Sex and Gender Information Value Date Recorded Sex Assigned at Not on file Gender Identity Not on file Sexual Orientation Not on file documented as of this encounter Plan of Treatment Upcoming Encounters Date Type Department Care Team (Late st Contact Info) Description 02/19/2024 11:30 AM CDT Appointment TMD at [facility] [address] [facility] [place] [address] Aracelis Siddiqui DDS, MS [address] [place] [address] 05/05/2024 4:00 PM CDT Appointment TMD at [facility] [address] [place] [address] Aracelis Siddiqui DDS, MS [address] [place] [address] documented as of this encounter Visit Diagnoses Not on filedocumented in this encounter Additional Health Concerns Infection Onset Date Last Indicated Resolved Time R/O COVID19 03/08/2020 03/08/2020 03/11/2020 1:28 AM CDT documented as of this encounter Care Teams Die Finisher Forging Relationship Specialty Start Date End Date Britney Jarrett MD [address] [place] [address] PCP - General 04/04/16 documented as of this encounter
--- OUTSIDE RECORDS SUMMARY | 2024-02-02 13:09 | XMS_ITS | Encounter Summary ---
Author Organization [facility] Address [address] [place] [address] Care Team Providers Care Concaver Name Role Phone Britney Jarrett MD Primary Care Provider [phone] Encounter Details Date Type Department Care Team [...] 02/19/2024 11:30 AM CDT Appointment TMD at [facility] [address] [facility] [place] [address] Aracelis Siddiqui DDS, MS [address] [place] [address] 05/05/2024 4:00 PM CDT Appointment TMD at [facility] [address] [place] [facility] [place] [address] Aracelis Siddiqui DDS, MS [address] [place] [address] documented as of this encounter Visit Diagnoses Not on filedocumented in this encounter Additional Health Concerns Infection Onset Date Last Indicated Resolved Time R/O COVID19 03/08/2020 03/08/2020 03/11/2020 1:28 AM CDT documented as of this encounter Care Teams Concaver Relationship Specialty Start Date End Date Britney Jarrett MD [address] [place] [address] PCP - General 04/04/16 documented as of this encounter
--- OUTSIDE RECORDS SUMMARY | 2024-02-02 13:09 | XMS_ITS | Encounter Summary ---
Author Organization Pending sale to [facility] Address [address] [place] [address] Care Team Providers Care Molecular Spectroscopist Name Role Phone Britney Jarrett MD Primary Care Provider [phone] Encounter Details Date Type Department Care Team (Latest Contact Info) Description 06/04/1995 Orders Only Harris Jarrett MD [address] [place] [address] Social History Tobacco Use Types Packs/Day Years Used Date Smoking Tobacco: Never Assessed Sex and Gender Information Value Date Recorded Sex Assigned at Not on file Gender Identity Not on file Sexual Orientation Not on file documented as of this encounter Plan of Treatment Upcoming Encounters Date Type Department Care Team (Late st Contact Info) Description 02/19/2024 11:30 AM CDT Appointment TMD at [facility] [address] [facility] [place] [address] Aracelis Siddiqui DDS, MS [address] [place] [address] 05/05/2024 4:00 PM CDT Appointment TMD at [facility] [address] [facility] [place] [address] Aracelis Siddiqui DDS, MS [address] [place] [address] documented as of this encounter Visit Diagnoses Not on filedocumented in this encounter Additional Health Concerns Infection Onset Date Last Indicated Resolved Time R/O COVID19 03/08/2020 03/08/2020 03/11/2020 1:28 AM CDT documented as of this encounter Care Teams Molecular Spectroscopist Relationship Specialty Start Date End Date Britney Jarrett MD [address] [place] [address] PCP - General 04/04/16 documented as of this encounter
--- OUTSIDE RECORDS SUMMARY | 2024-02-02 13:09 | XMS_ITS | Referral Summary ---
Author Organization [facility] Address [address] [place] [address]. [place] [address] Care Team Providers Care Water Server Name Role Phone Clinic, [facility] Primary Care Provider Allergies No known active allergies Medications Medication Sig Dispensed Refills Start Date End Date Status Vitamins A & D (VITAMIN A & D) ointment Apply topically as needed for dry skin or irritation Active oxyCODONE-acetamino phen (PERCOCET) 5-325 MG per tablet Take 1-2 tablets by mouth every 4 hours as needed for moderate to severe pain 15 tablet 0 06/24/2014 Active Pregabalin (LYRICA PO) Take 75 mg by mouth 2 times daily Active CYCLOBENZAPRINE HCL PO Active acetaminophen-codei ne (TYLENOL WITH CODEINE #3) 300-30 MG per tablet Take 1-2 tablets by mouth every 6 hours as needed for pain 12 tablet 05/09/2018 Active Social History Tobacco Use Types [...] 58.5 kg (129 lb) 06/24/2014 7:51 PM AUTOMOBILE SPRING REPAIRER Height 152.4 cm (5') 06/24/2014 7:51 PM AUTOMOBILE SPRING REPAIRER Body Mass Index 25.19 06/24/2014 7:51 PM AUTOMOBILE SPRING REPAIRER Plan of Treatment Not on file Procedures Procedure Name Priority Date/Time Associated Diagnosis Comments BASIC METABOLIC PANEL STAT 05/09/2018 3:49 AM CDT Acute pain of left shoulder from Last 3 Months or Most Recently Relevant to Health Maintenance Results * (ABNORMAL) Basic metabolic panel (05/09/2018 3:49 AM CDT) Sodium 139 133 - 144 mmol/L 05/09/2018 4:23 AM [facility] Potassium 3.8 3.4 - 5.3 mmol/L 05/09/2018 4:23 AM [facility] Chloride 107 94 - 109 mmol/L 05/09/2018 4:23 AM [facility] Carbon Dioxide 27 20 - 32 mmol/L 05/09/2018 4:23 AM [facility] Anion Gap 5 3 - 14 mmol/L 05/09/2018 4:23 AM [facility] Glucose 104(H) 70 - 99 mg/dL 05/09/2018 4:23 AM [facility] Urea Nitrogen 19 7 - 30 mg/dL 05/09/2018 4:23 AM [facility] Creatinine 0.97 0.52 - 1.04 mg/dL 05/09/2018 4:23 AM [facility] GFR Estimate 61 >60 mL/min/1.7 m2 05/09/2018 4:23 AM [facility] Comment:Non GFR Calc GFR Estimate If Black 74 >60 mL/min/1.7 m2 05/09/2018 4:23 AM [facility] Comment: GFR Calc Calcium 8.1(L) 8.5 - 10.1 mg/dL 05/09/2018 4:23 AM [facility] Blood specimen (specimen) 05/09/2018 3:49 AM CDT 05/09/2018 4:11 AM CDT Nanci De La Vega MD LAB - BLOOD ORDERABL ES [facility] [address] [place] [address], [facility] [phone] from Last 3 Months or Most Recently Relevant to Health Maintenance Care Teams Water Server Relationship Specialty Start Date End Date Clinic, [address] [address] PCP - General 05/09/18
--- OUTSIDE RECORDS SUMMARY | 2024-02-02 13:09 | XMS_ITS | Encounter Summary ---
Author Organization [facility] Address [address] [place] [address] Care Team Providers Care Auriculotherapist Name Role Phone Britney Jarrett MD Primary Care Provider [phone] Reason for Visit * Reason Comments Other iTero scans sent to [facility] Dr[facility] Ventura patient scanned under Dr. Benitez Encounter Details Date Type Department Care Team (Late st Contact Info) Description 01/21/2024 Telephone TMD at [facility] [address] [place] [address] Yolis Reynolds LDA [address] [place] [place] [address] Other (iTero scans sent to [facility]ura patient scanned under Dr. Benitez) Social History Tobacco Use Types Packs/Day Years [...] documented as of this encounter Nursing Notes * Yolis Reynolds LDA - 01/21/2024 9:41 AM CDT Itero scans and bite registration sent to [facility] for hard splint insert at [place] on 02/19/24. DELMAR Orellana 01/21/2024, 9:41 AM documented in this encounter Plan of Treatment Upcoming Encounters Date Type Department Care Team (Late st Contact Info) Description 02/19/2024 11:30 AM CDT Appointment TMD at [facility] [place] [address] [place] [address] Aracelis Siddiqui DDS, MS [address] [place] [address] 05/05/2024 4:00 PM CDT Appointment TMD at [facility] [place] [address] [place] [address] Aracelis Siddiqui DDS, MS [address] [place] [address] documented as of this encounter Visit Diagnoses Not on filedocumented in this encounter Care Teams Auriculotherapist Relationship Specialty Start Date End Date Britney Jarrett MD [address] [place] [address] PCP - General 04/04/16 documented as of this encounter
--- OUTSIDE RECORDS SUMMARY | 2024-02-02 13:09 | XMS_ITS | Encounter Summary ---
Author Organization [facility] Address [address] [place] [address] Care Team Providers Care Food Preservation Scientist Name Role Phone Britney Jarrett MD Primary Care Provider [phone] Encounter Details Date Type Department Care Team [...] 02/19/2024 11:30 AM CDT Appointment TMD at [facility] [place] [address] [facility] [place] [address] Aracelis Siddiqui DDS, MS [address] [place] [address] 05/05/2024 4:00 PM CDT Appointment TMD at [facility] [address] [place] [facility] [place] [address] Aracelis Siddiqui DDS, MS [address] [place] [address] documented as of this encounter Visit Diagnoses Not on filedocumented in this encounter Additional Health Concerns Infection Onset Date Last Indicated Resolved Time R/O COVID19 03/08/2020 03/08/2020 03/11/2020 1:28 AM CDT documented as of this encounter Care Teams Food Preservation Scientist Relationship Specialty Start Date End Date Britney Jarrett MD [address] [place] [address] PCP - General 04/04/16 documented as of this encounter
--- OUTSIDE RECORDS SUMMARY | 2024-02-02 13:09 | XMS_ITS | Clinical Summary ---
Author Organization [facility] Address [address] [place] [address]. [place] [address] Care Team Providers Care Regional Business Development Manager Name Role Phone Clinic, [facility] Primary Care Provider Allergies No known [...] 58.5 kg (129 lb) 06/24/2014 7:51 PM WIRE FRAME MAKER Height 152.4 cm (5') 06/24/2014 7:51 PM WIRE FRAME MAKER Body Mass Index 25.19 06/24/2014 7:51 PM WIRE FRAME MAKER Plan of Treatment Health Maintenance Due Date [...] Vaccine ( season) 2023 06/08/2021, 10/27/2020, 09/28/2020 PHQ-2 (once per calendar year) 2023 INFLUENZA VACCINE (Season Ended) 2024 04/28/2020, 05/31/2019, 05/31/2019, Additional history exists HPV IMMUNIZATION Aged Out No longer e [...] 133 - 144 mmol/L 05/09/2018 4:23 AM [facility] Potassium 3.8 3.4 - 5.3 mmol/L 05/09/2018 4:23 AM [facility] Chloride 107 94 - 109 mmol/L 05/09/2018 4:23 AM [facility] Carbon Dioxide 27 20 - 32 mmol/L 05/09/2018 4:23 AM [facility] Anion Gap 5 3 - 14 mmol/L 05/09/2018 4:23 AM [facility] Glucose 104(H) 70 - 99 mg/dL 05/09/2018 4:23 AM [facility] Urea Nitrogen 19 7 - 30 mg/dL 05/09/2018 4:23 AM [facility] Creatinine 0.97 0.52 - 1.04 mg/dL 05/09/2018 4:23 AM [facility] GFR Estimate 61 >60 mL/min/1.7 m2 05/09/2018 4:23 AM [facility] Comment:Non GFR Calc GFR Estimate If Black 74 >60 mL/min/1.7 m2 05/09/2018 4:23 AM [facility] Comment: GFR Calc Calcium 8.1(L) 8.5 - 10.1 mg/dL 05/09/2018 4:23 AM [facility] Blood specimen (specimen) 05/09/2018 3:49 AM CDT 05/09/2018 4:11 AM CDT Nanci De La Vega MD LAB - BLOOD ORDERABL ES [facility] [address] [place] [place] [address], [facility] [phone] from Last 3 Months or Most Recently Relevant to Health Maintenance Care Teams Regional Business Development Manager Relationship Specialty Start Date End Date Clinic, [address] [address] PCP - General 05/09/18
--- OUTSIDE RECORDS SUMMARY | 2024-02-02 13:09 | XMS_ITS | Clinical Summary ---
Author Organization [facility] Address [place], [place] [address] Care Team Providers Care Hall Porter Name Role Phone Nonstaff, Doctor Primary Care Provider Unavailab le Allergies Active Allergy Reactions Criticality Noted Date Comments Mold *Unknown 01/30/2017 sinus infection Medications Medication Sig Dispensed Refills Start Date End Date Status pregabalin (LYRICA) 100 mg capsule Take 75 mg by mouth. Active Lactobac no.41-Bifidobact no.7 (PROBIOTIC-10) 70 mg (3 billion cell) cap Acti ve acetaminophen (TYLENOL EXTRA STRGTH) 500 mg tablet Take 500 mg by mouth. Active acetaminophen-codeine, 300-30 mg, (TYLENOL-CODEINE #3) tablet Take 1-2 Tabs by mouth. 05/09/2018 Active azithromycin (ZITHROMAX) 250 mg tablet TAKE 2 TABLETS BY MOUTH FOR ONE DAY THEN ONE TABLET DAILY FOR FOUR DAYS 0 09/10/2018 Active cefdinir (OMNICEF) 300 mg capsule TAKE ONE CAPSULE BY MOUTH TWICE A DAY FOR 10 DAYS 0 09/04/2018 Active cyclobenzaprine (FLEXERIL) 10 mg tablet Take 10 mg by mouth. Active LYRICA 75 mg capsule 0 10/07/2018 [...] Health Maintenance Due Date Last Done Comments Tdap 1979 Depression screening for age 12+ [...] 10/16/2021 9, 10/16/2018, 08/19/2013, Additional history exists COVID-19 vaccine series (2022-24 season) 2023 Influenza for age 50-64 04/04/2024 Pneumococcal series for age 6-64 Aged Out No longer eligible based on patient's age to complete this topic Procedures Procedure Name Priority Date/Time Associated Diagnosis Comments SAWMILL EQUIPMENT OPERATOR THIN PREP PAP SCREEN IMAGED Routine 10/16/2018 3:10 PM CDT from Last 3 Months or Most Recently Relevant to Health Maintenance Results * SAWMILL EQUIPMENT OPERATOR THIN PREP PAP SCREEN IMAGED (10/16/2018 3:10 PM CDT) Case Report Gynecologic Cytology Report ? Case: [id number] ? Authorizing Provider: ??Riana Dorsey PA-C ? Collected: ? 10/16/2018 1510 ? Ordering Location: ? [facility] ?Received: ?10/19/2018 1438 ? First Screen: ?Kamran Argueta ? Specimen: ?SAWMILL EQUIPMENT OPERATOR ThinPrep Vial Screening, Cervical/Vaginal ? 10/26/2018 9:52 AM CDT [facility] INTERPRETATION/ RESULT NEGATIVE FOR INTRAEPITHELIAL LESION OR MALIGNANCY (NIL) (none) 10/26/2018 9:52 AM [facility] IMEN ADEQUACY Satisfactory for evaluation Endocervical component present 10/26/2018 9:52 AM CDT [facility] HPV REQUEST HPV and PAP 10/26/2018 9:52 AM CDT [facility] Last Pap Date 10/26/2018 9:52 AM CDT [facility] Comment:2013 Last Pap Result NIL 9 9:52 AM CDT [facility] Menstrual Status Ablation 10/26/2018 9:52 AM [facility] Automated Review Successful 10/26/2018 9:52 AM T [facility] Comment:Specimen processed s uccessfully by automated acquisition consultant device, ThinPrep Imaging System, [employer] ANCILLARY TESTING SAWMILL EQUIPMENT OPERATOR HPV Ordered, Please see separate report 10/26/2018 9:52 AM [facility] Note The pap test is a screening technique, not a diagnostic procedure. ??It is used primarily to screen for squamous cancers and precursor lesions. ??Published studies have shown that it is subject to both false negative and false positive results. ??The pap test should not be used as the sole means to diagnose or exclude pre-malignant and malignant lesions. Cytology is screened and interpreted at [facility] - [address], [place] [address] and [facility] - [address]; [place] [address] and [facility] - [address]; [place] [address] and [facility] [address]; [place] [address] 10/26/2018 9:52 AM CDT [facility] Other (Cervical/Vagina l) 10/16/2018 3:10 PM CDT 10/19/2018 2:38 PM CDT Riana Dorsey PA-C PATHOLOGY/CYTOLOGY [facility] [address] [place] [address], from Last 3 Months or Most Recently Relevant to Health Maintenance Care Teams Hall Porter Relationship Specialty Start Date End Date Nonstaff, Doctor NON STAFF DOCTOR PCP - General 06/14/11
--- OUTSIDE RECORDS SUMMARY | 2024-02-02 13:09 | XMS_ITS | Patient Health Record ---
Author Organization [facility] Address [address] [place], [place] [id number] Care Team Providers Care Credentialing Manager Name Role Phone Nabeel Colby Primary Care Provider Allergies No Known Allergies Reason For Referral No Information Medications Medication SIG (Take, Route, Fr equency, Duration) Notes Start Date End Date Status Cyclobenzaprine HCl Active Calcium Active Vitamin D3 Active Probiotic Active Social History Tobacco Use: Social History Observation Description Date Details (start date - stop date) Never Smoker NA - NA Tobacco Use/Smoking Question Answer Notes Are you [...] drinks (1 point) Points 2 Interpretation Negative Problems Problem Type SNOMED Code ICD Code Onset Dates Problem Status W/U Status Risk Notes Problem 055579964 Menopausal and female climacteric states (N95.1) Active confirmed Problem 13951487 Chronic fatigue (R53.82) Active confirmed Problem Menopause (939613166) 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 Plan Of Treatment No Information Insurance Providers Payer Name Payer Address Payer Phone Subscriber Number Group Number Insured Name Patient Relationship to Insured Coverage Start Date Coverage End Date [employer] - (Client Bill) [address] [place] [address] [id number] Josie Booker Self - patient is the insured Medical (General) History Medical History History ICD Code Arthritits Surgical History Surgery Date(Month/Year) Tonsils/adenoids- childhood tubes as child shoulder surgery 2018 carpal tunnel surgery 95 and 96 low back fusion neck fusion 2009 breast implants 2010 breast reduction 23 03 hernia repair 2019
--- OUTSIDE RECORDS SUMMARY | 2024-02-02 13:09 | XMS_ITS | Encounter Summary ---
Author Organization [facility] Address [address], [place] [address] Care Team Providers Care Chlorinator Name Role Phone Britney Jarrett MD Primary Care Provider [phone] Encounter Details Date Type Department Care Team (Latest Contact Info) Description 01/21/2024 8:00 AM CDT Office Visit TMD at [facility] [address] [facility] [place] [address] Dick Benitez DDS, MS [address] [place] [address] Masticatory myalgia (Primary Dx); Myalgia of auxiliary muscles, head and neck; Arthralgia of right temporomandibular joint; Osteoarthritis of right temporomandibular joint Social History Tobacco Use Types Packs/Day Years [...] documented as of this encounter Progress Notes * Dick Benitez DDS, MS - 01/21/2024 8:00 AM CDT The progress notes for the last visit, with Dr. Ventura, here at [facility], follow: Progress Notes Aracelis Siddiqui, ANA, MS (DENTIST) Dental Encounter Date: 10/01/2023 Signed S CHIEF COMPLAINT: Josie Booker presents for evaluation of jaw pain on the right side. Referred by: self referral. HPI: Right sided jaw pain, right sided ear pain, repeated sinus infections. She knows she clenches and grinds her teeth. Has been seen at [facility] who is now outside of network; Also Previous patient of Dr. Coe's in 1999. Used a night made by [facility]. No longer using per their recommendation. Had injections on the right TMJ. Has done PT. First used a splint for several months, then had orthodontic treatment to straighten her teeth, now she is using Spark retainers. Has been seen by ENT. defect on the right hand side. Repeated sinus infections. Cone beam CT of the TMJs in 2020 from [facility]- images brought in by patient today.Per my review of the images there is irregularity and loss of cortical bone on the articular surfaceof the right mandibular condyle, osteophyte and limited mobility suggesting right TMJ DJD. MRI of the TMJs 12/04/2020 at [facility]: left TMJ normal, and right TMJ Stage IV internal derangement Radionuclide bone scan at [facility] 12/08/2020: mild diffuse radiotracer uptake on the right mandibular body which is nonspecific. Right sided jaw pain has been present for the last 2-3 years, and worse in the last 4 months. She doesn't know what triggered her symptoms at the time. She knows she is now grinding a lot more at night and clenching at night. She is also getting more sinus infections that don't go away and she endsup taking repeated rounds of antibiotics. She feels like she has ear infections, she has ear ringing, she is dizzy and has vertigo. Pain is localized on the right preauricular area. It is continuous.Achy pain with intensity of 5-6/10. Aggravated by grinding and clenching. Very noticeable muscle tightness on the right masseter when she first wakes up in the morning. She has had massages but the muscle doesn't relax. Pt reports she can open her mouth wide with some deviation. Keeping her mouth open is very difficult. No clicking sounds on a regular basis. No jaw locking. Bite changes not noticed, no discomfort. It does not hurt worse when she puts her teeth together. Diet consistency - tries to avoid crunchy foods. She is able to eat steak without a problem. She eats bagels infrequently but without a problem. She cuts her fruits, does not bite into foods. Facial asymmetry - she has noticed that her chin is deviated to the right, and has noticed it for about 20 years. She doesn't recall it from childhood, even though she was told at some point that it could be a defect. REVIEW OF SYSTEMS Constitutional: neg HEENT: sinus problems, ear pain, tinnitus, visual changes; adenoidectomy as a child. Turbinate reduction surgery 2.[address] scan of the sinuses in Jul 2023 because of repeated sinus infections - not enough to redo the procedure again. Ears checked at [facility], hearing test and evaluation and no positive findings and recommended to see TMD provider. Right eye pain and has seen eye doctor and retina specialist who has diagnosed her with a conditionand was told it didn't have to do with her face pain. Dental Pain:No.Last cleaning within the last within the last 6 months. Up to date.[facility] in [facility]: 03/22[facility]. Last one done in June 2023. Cardiovascular: neg. Musculoskeletal: cervical pain - fusion C6-C7 - Cervical xrays and neck MRI from [facility] 04/2021: disc degeneration with mild narrowing of the central canal at each level. Foraminal stenosis with arthrosis, moderate facet arthropathy and moderate foraminal stenosis. Fibromyalgia diagnosed at [facility] approx 2 years ago. Managing without any medication. Local osteoarthritis, other muscle or joint pain, lower back, has had 2 major back surgeries 5 backsurgeries in total with fusions and nerve decompression. Neurologic: headaches, 2-3 x per month seems to correlate with sinus infections. Frontal and aroundher eyes. [facility] evaluation and diagnosed with migraines. She was started on medication which made symptoms worse. Does not remember what medication it was. Respiratory: HST at [facility] 11/21/2020: AHI 3.2; Supine AHI 4.6; Left lateral 0.5; right lateral 2.5; Low oxygen 86%; Oxygen below 90% was 0.1% of the study. Weight at the time was 145 lb, same as now. She doesn't sleep on supine because it makes her vertigo worse. She snores per 's report. Gastrointestinal: acid reflux, in the past Endocrine: neg Psychiatric: sleep disturbance, has trouble staying asleep and sometimes has trouble going back to sleep. She goes to bed at 10:30 pm and is up at 4 am. She waits until she is very tired to go to sleep, she wakes up 2-3 times per night on average to either go to the bathroom or general pain, or hergrinding and clenching. Anxiety not diagnosed but anxious or sad about dealing with her health for years. She wants to feel better. She doesn't think she is depressed. She saw therapist when parents passed, about 4 years ago. Allergies/Auto-immune: yes PAST HX: Symptoms ongoing for a number of years. Subsides and comes back. PREVIOUS TX: Mouthguard, PT, injections. HEP: did them in the past and now started again - jaw forward movements, side to side, small yawning. She did isometric exercises in the past but they hurt. Saw oral and maxillofacial surgeon for evaluation Farhad Prieto 11/2020 - no surgery recommended. Niko tried cyclobenzaprine for her back. MEDICAL HX: Was seen in the ER last Friday, stomach bug. 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 . 2 grown children. 2 grandchildren. No pets. Caffeine intake; neg Activity: 3 x per week FAMILY HX: Family HX of TMD Father (has passed) O CONSTITUTIONAL: General Appearance/Communication: Patient presents alert, oriented in space and time, no acute distress. HEENT: no swelling on face, head or neck. No skin abnormalities. Chin is deviated to the right on resting closure. MANDIBULAR MOVEMENT: Openin without discomfort, 39 mm of max opening, jaw deflection to the right at the end of opening; no jaw noises. Pain on the bilateral TMJ area. Left: 11 mm - right preauricular area. Right: 10 mm - left preauricular Protrusive: 10 mm TMJ SOUNDS/MECHANICAL SIGNS: neg PALPATION: Temporalis: Left 2; Right 2 Masseter: Left 1; Right 1 Medial Pterygoid: Left 0; Right 0 Temporalis tendon: Left 3, Right 3 TMJs: Left 0; Right 1 SCM: Left 1; Right 1 Posterior Cervical: Left 1; Right 2 LYMPH NODES: WNL CRANIAL NERVES: cranial nerves V, VII, IX, X and XII are grossly intact OCCLUSION: Angle: Left 2; Right 2 Anterior Guidance: H: 3 mm V: 3 mm Missing Teeth: third molars Occlusal Plane Problems: dental midlines are centered. CO Stability ([place]): bilateral posterior and anterior solid contacts DENTAL INSPECTION: attrition on posterior teeth INTRAORAL SOFT TISSUE: medium tongue, medium length soft palate EXISTING APPLIANCES: not assessed TMJ Cone beam [facility]- Per my review of the images there is irregularity and loss of cortical bone on the articular surface of the right mandibular condyle, osteophyteand limited mobility suggesting right TMJ DJD. MRI of the TMJs 12/04/2020 at [facility]: left TMJ normal, and right TMJ Stage IV internal derangement HST at [facility] 11/21/2020: AHI 3.2; Supine AHI 4.6; Left lateral 0.5; right lateral 2.5; Low oxygen 86%; Oxygen below 90% was 0.1% of the study. Weight at the time was 145 lb A Diagnosis: Myofascial pain/local myalgia - masticatory and cervical, right TMJ Arthralgia, right TMJ Osteoarthritis CONTRIBUTING FACTORS: awake clenching, sleep bruxism, life interference from health issues, sleep disturbance. IMPRESSION: right sided jaw symptoms are duplicated today upon palpation of right masseter muscle. Most muscle sites palpated today are significantly tender, as is the right TMJ. Right TMJ DJD would explain facial asymmetry, jaw deflection from hypomobility. Previous treatments have included intraoral splint, PT, joint injection, surgery consultation. P I explained my findings and impressions, probable factors contributing to her presentation, treatment goals and options and prognosis. Patient instruction on self-care recommendations for temporomandibular disorders. Specifically, patient will focus on heat/ice application, limiting jaw use, awareness of jaw tensing habits and implementation of jaw relaxed position, bilateral chewing and pain free diet, limiting opening with yawning, avoiding pressure to her jaw. Instruction on jaw exercises provided in detail today - TMJ rotation, jaw massage/relaxation and jaw stretch. Explained goals of exercises and recommendation to practice through out the day for the next several weeks. Hand out provided. Recommended physical therapy evaluation and treatment. Goals are to help decrease muscle and joint pain, improve jaw mechanics. She can take cyclobenzaprine for jaw pain hs prn. Recommended fabrication of intraoral splint to wear during sleep to help decrease loading on TMJs and masticatory muscles and protect teeth. This is pending priorauthorization and she will return to have dental scans and bite registration at a later date. Lina Esteban, ERIKAS, MS Total time of 65 minutes spent preparing for visit, reviewing medical history and past evaluations and images, performing interview and exam, discussing plan of care, entering orders and documenting encounter. Progress notes for today's visit: S: CC: jaw and neck pain HPI: Pt presents to proceed with scans of the teeth and bite registration for fabrication of intraoral splint, and for follow up. She is pt of record with our clinic and has most recently seen Dr. Ventura. She has agreed to proceed with scans and bite registration with me taking the bite on behalf ofDr. Ventura, as Dr. Ventura is on leave. She has a long history of TMD. She was first assessed and treated at our clinic by Dr. Coe in 1999. Jaw symptoms: she is seeing a PT provider, has had a few visits, some flares in pain related to jawand neck symptoms, particularly neck ROS: no change in medical hx or meds. Denied dental and gingival pain Dental: Has Invisalign retainers and is hoping to continue to wear the upper retainer. Pt requests mandibular splint. PFSH: No changes O: Patient presents alert, oriented, no acute distress. There is no extraoral swelling, lymphadenopathy or asymmetry. Jaw function: jaw ROM >40 mm, TMJ noise: neg, pain: neg, opening pattern: mandible tracks straight Points tender to palpation: not assessed Intraoral examination: No masses or lesions detected on all aspects of the tongue, floor of the mouth, hard and soft palate, oropharynx, gingiva or buccal mucosa. Occlusion/ Intercuspal dental contacts:not assessed A Diagnosis: Myofascial pain/local myalgia - masticatory and cervical, right TMJ Arthralgia, right TMJ Osteoarthritis Progress: still symptomatic - some flares in jaw and neck symptoms. P: Discussed and agreed to proceed with fabrication of new intraoral splint/appliance. Today we proceeded with dental scans and bite registration for fabrication of of hard mandibular stabilization appliance, with thermoplastic material. This will be sent to [facility] for fabrication. Pt enquired about rigid material versus thermoplastic material. I advised pt that thermoplastic material may be better tolerated than rigid material and we use it more frequently - needs to be heated in order to conform to shapes of the crowns of teeth. She agreed to thermoplastic. The splint will be ready in 2 weeks. she will return for insertion and delivery of intraoral splintin the next several weeks. Scheduled with Dr. Ventura on 02/17/2024. Dick Benitez DDS, MS 01/22/2024, 6:35 AM documented in this encounter Plan of Treatment Upcoming Encounters Date Type Department Care Team (Late st Contact Info) Description 02/19/2024 11:30 AM CDT Appointment TMD at [facility] [place] [address] [facility] [place] [address] Aracelis Siddiqui DDS, MS [address] [place] [address] 05/05/2024 4:00 PM CDT Appointment TMD at [facility] [place] [address] [facility] [place] [place] [address] Aracelis Siddiqui DDS, MS [address] [place] [address] documented as of this encounter Visit Diagnoses Diagnosis Masticatory myalgia- Primary Mylagia and myositis, unspecified Myalgia of auxiliary muscles, head and neck Arthralgia of right temporomandibular joint Arthralgia of temporomandibular joint Osteoarthritis of right temporomandibular joint documented in this encounter Care Teams Chlorinator Relationship Specialty Start Date End Date Britney Jarrett MD [address] [place] [address] PCP - General 04/04/16 documented as of this encounter
--- OUTSIDE RECORDS SUMMARY | 2024-02-02 13:09 | XMS_ITS | Clinical Summary ---
Author Organization [facility] Address [address] [place] [address] Care Team Providers Care Supervisor Frame Sample And Pattern Name Role Phone Britney Jarrett MD Primary Care Provider [phone] Source Comments You are receiving this document as you are listed as the primary care provider,follow-up provider, or the patient has been referred to you for consultation.This is in compliance with the Medicare andSal[facility] Hospitalcaid EHR Incentive Program,which states Providers who transition their patient to another setting of careor provider of care or refers their patient to another provider of care shouldprovide summary care record for each transition of care or referral. [employer] Allergies Active Allergy Reactions Criticality Noted Date Comments [place] Cockroach Headache 10/01/2023 Mixed Ragweed Headache 10/01/2023 Medications Medication Sig Dispensed Refills Start Date End Date Status Probiotic Product (SUPER PROBIOTIC OR) Acti ve cyclobenzaprine (FLEXERIL) 10 MG tablet Take 10 mg by mouth three times a day as needed for Muscle Spasms. Active VITAMIN D OR 1,000 mg. 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 [address] Dick Benitez, ERIKAS, MS Masticatory myalgia (Primary Dx); Myalgia of auxiliary muscles, head and neck; Arthralgia of right temporomandibular joint; Osteoarthritis of right temporomandibular joint 01/21/2024 Telephone TMD at [facility] [place] [address] [place] [address] Yolis Reynolds, LDA Other (iTero scans sent to [facility] Dr. Ventura patient scanned under Dr. Benitez) from Last 3 Months Immunizations Name Administration Dates Next Due DT [...] 11:30 AM CDT Appointment TMD at [facility] [place] [address] [facility] [place] [address] Aracelis Siddiqui DDS, MS [address] [place] [address] 05/05/2024 4:00 PM CDT Appointment TMD at [facility] [place] [address] [facility] [place] [address] Aracelis Siddiqui DDS, MS [address] [place] [address] Health Maintenance Due Date Last Done Comments Colon Cancer Screening Plan Due 1968 Hep C Screening (Preventive Services) 1968 HIV Screening (Preventive Services) 1984 HepB (1) 1987 Mammogram 10/25/1998 10/25/1997 Cervical Cancer Screening Due 02/06/2007 02/05/2007, 04/02/2004, 05/17/2002, Additional history exists Adult Preventive Visit 02/06/2008 7, 04/05/2005, 04/02/2004, Additional history exists Cholesterol 2013 02/02/2007, 03/06, 08/08/1998 Zoster/Shingles (1 of 2) 2018 DTaP/Tdap/Td (6 - Tdap) 05/07/2022 05/07/20 12, 02/23/2009, 04/27/1999, Additional history exists COVID-19 Vaccine ( season) 2023 10/27/2020, 09/28/2020 Influenza (Season Ended) 2024 020, 05/31/2019, 05/05/2018, Additional history exists HepA Aged Out [...] this topic Medical Devices Implanted Type Area Greenskeeper Device Identifier Shelf Expiration Date Model / Serial / Lot Scr Biotend[employer] [facility] - [id number] Implanted:Qty: 1 on 10/02/2017 by Terrell Mccarthy MD at [facility] Right: SHOULDER [employer] 05/03/2019 [id number] / 0 / [id number] Procedures Procedure Name Priority Date/Time Associated Diagnosis Comments PAP TEST, ROUTINE Routine 02/05/2007 2:4 0 PM CDT Screening for Malignant Neoplasm of the Cervix LIPID PANEL, FAST > 12 HOUR Routine 02/02/2007 8:24 AM CDT Screening for Lipoid Disorders MAMMOGRAM, BILATERAL DIAGNOSTI 10/25/1997 12:00 AM WORLD GEOGRAPHY TEACHER Lump Or Mass In Breast Family Hx-Breast Malig from Last 3 Months or Most Recently Relevant to Health Maintenance Results * PAP TEST, ROUTINE [[id number]] (02/05/2007 2:40 PM CDT) Cytology, Pap (NOTE) Organization Development Consultant Cytology Report Patient Name: JOSIE THOMASON Taken: 02/05/2007 Received: 02/06/2007 Reported: 02/16/2007 Physician(s): MADISYN SMALLS ([id number]) ?Source of Specimen Liquid routine Pap, cervical/endocervi [...] testing requested with interpretation of ASCUS ? [facility] 02/05/2007 2:40 PM CDT 02/06/2007 6:18 AM CDT Madisyn Smalls [employer] COMMERCE DEVELOPER, CHECK CASHIER LAB_1 [facility] [address] [id number] * CHOLESTEROL LIPID PANEL FAST >12HR (02/02/2007 8:24 AM CDT) Cholesterol 154 <200 mg/dl [facility] Triglyceride 70 <200 mg/dl [facility] HDL 62 >35 mg/dl [facility] LDL, Calc. 78 mg/dl [facility] Hours Fasting 12 hours [facility] 02/02/2007 8:24 AM CDT 02/02/2007 8:25 AM CDT Madisyn Smalls [facility] [address] [id number] * MAMMOGRAM, BILATERAL DIAGNOSTIC (10/25/1997 12:00 AM WORLD GEOGRAPHY TEACHER) Anatomical Region Laterality Modality Breast Other 10/25/1997 [...] Recently Relevant to Health Maintenance Advance Directives * No Code Status (Latest Code Status on File) Date Activated Date Inactivated Comments 03/07/2005 4:09 PM 03/07/2005 4:09 PM Care Teams Supervisor Frame Sample And Pattern Relationship Specialty Start Date End Date Britney Jarrett MD [address] [place] [address] PCP - General 04/04/16
--- OUTSIDE RECORDS SUMMARY | 2024-02-02 13:09 | XMS_ITS | Encounter Summary ---
Author Organization [facility] Address [address] [place] [address] Care Team Providers Care Ballroom Dance Instructor Name Role Phone Britney Jarrett MD Primary Care Provider [phone] Encounter Details Date Type Department Care Team [...] 02/19/2024 11:30 AM CDT Appointment TMD at [facility] [place] [address] [facility] [place] [address] Aracelis Siddiqui DDS, MS [address] [place] [address] 05/05/2024 4:00 PM CDT Appointment TMD at [facility] [place] [address] [facility] [place] [address] Aracelis Siddiqui DDS, MS [address] [place] [address] documented as of this encounter Visit Diagnoses Not on filedocumented in this encounter Additional Health Concerns Infection Onset Date Last Indicated Resolved Time R/O COVID19 03/08/2020 03/08/2020 03/11/2020 1:28 AM CDT documented as of this encounter Care Teams Ballroom Dance Instructor Relationship Specialty Start Date End Date Britney Jarrett MD [address] [place] [address] PCP - General 04/04/16 documented as of this encounter
--- OUTSIDE RECORDS SUMMARY | 2024-02-02 13:09 | XMS_ITS | Encounter Summary ---
Author Organization [facility] Address [address] [place] [address] Care Team Providers Care Air Deodorizer Servicer Name Role Phone Britney Jarrett MD Primary Care Provider [phone] Encounter Details Date Type Department Care Team [...] Department Care Team (Late Contact Info) Description 02/19/2024 11:30 AM CDT Appointment TMD at [facility] [place] [address] [place] [address] Aracelis Siddiqui DDS, MS [address] [place] [address] 05/05/2024 4:00 PM CDT Appointment TMD at [facility] [place] [address] [place] [address] Aracelis Siddiqui DDS, MS [address] [place] [address] documented as of this encounter Visit Diagnoses Not on filedocumented in this encounter Additional Health Concerns Infection Onset Date Last Indicated Resolved Time R/O COVID19 03/08/2020 03/08/2020 03/11/2020 1:28 AM CDT documented as of this encounter Care Teams Air Deodorizer Servicer Relationship Specialty Start Date End Date Britney Jarrett MD [address] [place] [address] PCP - General 04/04/16 documented as of this encounter
--- OUTSIDE RECORDS SUMMARY | 2024-02-02 13:09 | XMS_ITS | Encounter Summary ---
Author Organization [facility] Address [address] [place] [address] Care Team Providers Care Air Pollution Specialist Name Role Phone Britney Jarrett MD Primary Care Provider [phone] Encounter Details Date Type Department Care Team (Latest Contact Info) Description 02/18/1998 Orders Only [place] [address] Social History Tobacco Use Types Packs/Day Years [...] 11:30 AM CDT Appointment TMD at [facility] [address] [facility] [place] [address] Aracelis Siddiqui DDS, MS [address] [place] [address] 05/05/2024 4:00 PM CDT Appointment TMD at [facility] [address] [facility] [place] [address] Aracelis Siddiqui DDS, MS [address] [place] [address] documented as of this encounter Visit Diagnoses Not on filedocumented in this encounter Additional Health Concerns Infection Onset Date Last Indicated Resolved Time R/O COVID19 03/08/2020 03/08/2020 03/11/2020 1:28 AM CDT documented as of this encounter Care Teams Air Pollution Specialist Relationship Specialty Start Date End Date Britney Jarrett MD [address] [place] [address] PCP - General 04/04/16 documented as of this encounter
--- OUTSIDE RECORDS SUMMARY | 2024-02-02 13:09 | XMS_ITS | Encounter Summary ---
Author Organization [facility] Address [address] [place] [address] Care Team Providers Care Business Intelligence Architect Name Role Phone Brtiney Jarrett MD Primary Care Provider [phone] Encounter Details Date Type Department Care Team (Latest Contact Info) Description 12/18/1995 Orders Only Bandar Santamaria MD [address] [place], [place] [id number] Social History Tobacco Use Types Packs/Day Years [...] AM CDT Appointment TMD at [facility] [place] [address] [facility] [place] [address] Aracelis Siddiqui DDS, MS [address] [place] [address] 05/05/2024 4:00 PM CDT Appointment TMD at [facility] [place] [address] [facility] [place] [address] Aracelis Siddiqui DDS, MS [address] [place] [address] documented as of this encounter Visit Diagnoses Not on filedocumented in this encounter Additional Health Concerns Infection Onset Date Last Indicated Resolved Time R/O COVID19 03/08/2020 03/08/2020 03/11/2020 1:28 AM CDT documented as of this encounter Care Teams Business Intelligence Architect Relationship Specialty Start Date End Date Britney Jarrett MD [address] [place] [address] PCP - General 04/04/16 documented as of this encounter
--- OUTSIDE RECORDS SUMMARY | 2024-02-02 13:10 | XMS_ITS | Data Portability ---
Author Organization [facility] Address [address] [place] [address] Care Team Providers Care Betting Agency Manager Name Role Phone FILIBERTO, JOE Primary Care Provider [phone] Assessment Encounter Date Assessment Date Assessment LastModified by Organization Details LastModified Time 11/22/2020 11/22/2020 50 Y/O FEMALE, SEEN FOR EVALUATION OF A NEW 4MM RT RENAL LESION FOUND ON C.T. SCAN. TO SMALL TO REALLY EVALUATE ACCURATELY. MULTIPLE BACK SURGERIES. REVIEWED RECORDS, C.T. REPORT REVIEWED. PLAN RTC 12 MO C.T. FOLLOWUP OR FOLLOWUP AT [place]. Not available 11/22/2020 16:05:23 Plan of Treatment [...] Hernia repair w/mesh completed Khadar Theodore MD [address] [place] [address],[address] [place] [address], [phone], [facility] 11/22/2020 15:46:20 Unlisted procedure shoulder completed Khadar Theodore MD [address] [place] [address],[address], [place], [address], [facility] 11/22/2020 15:46:30 procedure on back completed Khadar Theodore MD [address] [place] [address],[address], [place], [address] 11/22/2020 15:46:41 Imaging Results None recorded. [...] Updated DateTime 11/22/2020 152.4 cm 27.3 kg/m2 64185.93 g Khadar Theodore MD [address] [place] [address],[address], [phone] 11/22/2020 15:44:06 Social History Question Answer Notes LastModified by Organizat ion Details LastModified Time Tobacco Smoking Status Never Smoker Khadar Theodore MD [address] [place] [address],[address], [phone] 11/22/2020 15:45:34 What Was The Date Of Your Most Recent Tobacco Screening? 11/22/2020 Information not available 11/22/2020 Sex: Unknown Functional Status None recorded. Mental Status None recorded. Family History Nothing Reported. Medical History Condition Response Sexually Transmitted Infection N Diabetes N Other N Bleeding Disorder N High Blood Pressure N Kidney Stones N High Cholesterol N GERD/Acid Reflux N Heart Disease N Cancer N Lung Disease N Depression N Gynecological HistoryNo gynecological history recorded. Obstetrics History GPAL:G 0 P 0 0 0 0 Past Encounters Encounter ID Performer Location Encounter Start Date Encounter Closed Date Diagnosis/Indication Diagnosis SNOMED-CT Code [id number] Khadar Theodore MD [facility] [address] [place] [id number] 11/22/2020 15:38:11 11/24/2020 10:13:14 Neoplasm of uncertain behavior of kidney [id number] Health Concerns Section Related Observation LastModified by Organization Detai ls LastModified Time None Recorded Concern Status LastModified by Organization Details LastModified Time None Recorded Advance Directives Directive None Recorded Payers Encounter Date Sequence Insurance Name Policy Number Policy Torres Covered Member ID Torres Member ID Guarantor Name 11/22/2020 1 [facility] [id number] Josie Booker [id number] Josie Booker Notes Date Note Type Note Provider Name and Address Organization Details Recorded Time 11/22/2020 text/html HPI Notes: 50 YOF HERE FOR A KIDNEY SYST AND LESION. 1.1 CYST ON RIGHT KIDNEY. 4MM LESION RIGHT KIDNEY. multiple back surgeries. Khadar Theodore MD [address], [place], [address], [facility] 11/22/2020 16:06:23 OBGyn Episode No OBEpisode recorded.
--- OUTSIDE RECORDS SUMMARY | 2024-02-02 13:10 | XMS_ITS ---
Author Organization [facility] Address [address] [place] [address] Care Team Providers Care Monitoring And Evaluation Advisor Name Role Phone Unavailable Unavailable Unavailable Surgery Details Not on file Complications Check Surgery Details section. Procedure Estimated Blood Loss Check Surgery Details section. Procedure Findings Check Surgery Details section. Procedure Specimens Taken Check Surgery Details section.
--- OUTSIDE RECORDS SUMMARY | 2024-02-02 13:10 | XMS_ITS | Clinical Summary ---
Author Organization [facility] Address [address] [place] [address] Care Team Providers Care Tool Inspector Name Role Phone Elsewhere, Pcp Primary Care Provider Unavailabl e Source Comments Patient records contain information from all sites at [facility]. For routine questions regarding patient records, call [phone] during business hours, M-F 8:00 AM - 5:00 PM Central Time. Record requests for emergency care only can be directed to [phone] at any time.[facility] Allergies Active Allergy Reactions Criticality Noted Date Comments Mold Other (see comments) 01/30/2017 sinus infection Medications Medication Sig Dispensed Refills Start Date End Date Status acetaminophen (TYLENOL) 500 mg tablet Take 1,000 mg by mouth as needed for pain. Active cholecalciferol, vitamin D3, 25 mcg (1,000 Unit) tablet Take 1,000 Units by mouth every morning. Active cyclobenzaprine (FLEXERIL) 10 mg tablet Take 5-10 mg by mouth as needed for muscle spasms. Active Lactobacillus acidophilus (Probiotic) 10 billion cell capsule Take 1 capsule by mouth every morning. Active calcium carbonate 1,500 mg (600 mg calcium) tablet Take 600 mg of calcium by mouth daily. 09/19/2021 Active ubidecarenone (COENZYME Q10 ORAL) Take 1 capsule by mouth every other day. Patient unsure of dose Active Active Problems Problem Noted Date Diagnosed Date Primary Osteoarthritis Cervical Spine 12/07/2021 Cyst Renal 12/07/2021 Fatigue 12/03/2021 Screening Osteoporosis 12/03/2021 Pain Back Thoracic 12/03/2021 Fibromyalgia 12/03/2021 Mass Axilla Left 12/03/2021 Gastroesophageal Reflux Disease 12/03/2021 Preoperative Exam 04/21/2019 Overview: Added automatically from request for surgery [id number] Stenosis Spinal 04/21/2019 Overview: Added automatically from request for surgery [id number] Encounters Date Type Department Care Team Description 12/25/2023 3:48 PM CDT - 12/25/2023 11:59 PM CDT Hospital Encounter Department of Radiology, [facility], in [place], [place] [address] [place] [address] Steve Jesus M.D. Pain Cervical; Osteoporosis Discharge Disposition: Home or Self Care from Last 3 Months Immunizations Name Administration Dates Next Due DT, Pediatric 07/22/1994 HepA / HepB 02/24/2015,01/19/2015 Influenza TIV (IM) 05/06/2013, 2,05/28/2011,2009,06/14/2003,06/17/2002,06/23/2001,1 09/24/1999,05/14/1999 Influenza, Injectable, Quadrivalent 05/31/2019 Influenza, Seasonal, Injectable 05/06/20 13,05/07/2012,05/28/2011,2009,06/14/2003,06/17/2002,06/23/2001,1 09/24/1999,05/14/1999 Influenza, Unspecified 05/31/2019,1997,05/18/1997,1995 RZV (SHINGRIX) 12/03/2021(Deferred: Other) Td (Adult), adsorbed 04/27/1999,07/22/1994 Td Preservative Free (TENIVA C, DECAVAC) 02/23/1999 Tdap 05/07/2012,05/07/2012,02/23/2009 TyVi (inj) 01/19/2015 influenza vaccine quad (FLUZONE/FLUARIX) (6 months and older)(PF) 04/28/2020,05/05/2018,09/11/2017,2013 Family History Medical History Relation Name Comments Other cancer Brother Dmitriy Martinez Throat Cancer - 52 years old ADD Daughter Marianne Booker Diabetes Daughter Marianne Booker Type 1 Diabetes Father Yovani Martinez Type 2 Stroke Father Yovani Martinez 81 years old Arthritis Mother Jenniffer Alejoiller Breast cancer Mother Jenniffer Rizvir Osteoporosis Mother Jenniffer Alejoiller Leukemia Paternal Grandmother Jolly Martinez Other cancer Sister Alondra Bacon Uterine can cer- 55 years old Relation Name Status Comments Brother Dmitriy Martinez Daughter Marianne Booker Father Yovani Martinez Mother Jenniffer Martinez Paternal Grandmother Jolly Martinez Sister Alondra Bacon Social History Tobacco Use Types Packs/Day Years Used Date Smoking Tobacco: Never Smokeless Tobacco: Never Tobacco Cessation:Counseling Given: Not Answered Alcohol Use Standard Drinks/Week Comments Yes 0 (1 standard drink = 0.6 oz pur e alcohol) Humiliation, Afraid, Rape, and Kick questionnair e Answer Date Recorded Within the last year, have y ou been afraid of your partner or ex-partner? No 08/15/2022 Within the last year, have y ou been humiliated or emotionally abused in other ways by your partner or ex-partner? No Within the last year, have y ou been kicked, hit, slapped, or otherwise physically hurt by your partner or ex-partner? No 08/15/2022 Within the last year, have y ou been raped or forced to have any kind of sexual activity by your partner or ex-partner? No 08/15/2022 Social Connection and Isolat ion Panel [NHANES] Answer Date Recorded In a typical week, how many times do you talk on the phone with family, friends, or neighbors? Once a week 08/15/2022 How often do you get togethe r with friends or relatives? Once a week 08/15/2022 How often do you attend chur or baptism services? More than 4 times per year 08/15/2022 Do you belong to any clubs o r organizations such as amish groups, unions, fraternal or athletic groups, or school groups? Yes 08/15/2022 How often do you attend meet ings of the clubs or organizations you belong to? 1 to 4 times per year 08/15/2022 Are you , , di vorced, , never , or living with a partner? 08/15/2022 AUDIT-C Answer Date Recorded Q1: How often do you have a drink containing alc ohol? Never 08/15/2022 Q2: How many drinks containi ng alcohol do you have on a typical day when you are drinking? 1 or 2 08/15/2022 Q3: How often do you have six or more drinks on one occasion? Never 08/15/2022 Overall Financial Resource Strain (CARDIA) Answe r Date Recorded How hard is it for you to pa y for the very basics like food, housing, medical care, and heating? Not hard at all 08/15/2022 PHQ-2 Answer Date Recorded PHQ-2 Score 2 08/19/2022 [facility] - Occupational Stress Questionnaire Answer Date Recorded Do you feel stress - tense, restless, nervous, or anxious, or unable to sleep at night because your mind is troubled all the time - these days? To some extent 08/15/2022 Exercise Vital Sign Answer Date Recorde d On average, how many days pe r week do you engage in moderate to strenuous exercise (like a brisk walk)? 4 days 08/15/2022 On average, how many minutes do you engage in exercise at this level? 40 min 08/15/2022 Hunger Vital Sign Answer Date Recorded Within the past 12 months, y ou worried that your food would run out before you got the money to buy more. Never true 08/15/19 23 Within the past 12 months, t he food you bought just didn't last and you didn't have money to get more. Never true 08/15/2022 PRAPARE - Transportation Answer Date Re corded In the past 12 months, has l ack of transportation kept you from medical appointments or from getting medications? No 08/04 In the past 12 months, has l ack of transportation kept you from meetings, work, or from getting things needed for daily living? No 08/15/2022 Housing Stability Vital Sign Answer Deshaun e Recorded In the last 12 months, was t here a time when you were not able to pay the mortgage or rent on time? No 08/15/2022 In the last 12 months, how many places have you lived? 1 08/15/2022 In the last 12 months, was t here a time when you did not have a steady place to sleep or slept in a long term (including now)? No 08/15/2022 Depression Answer Date Recor ded PHQ-9 Total Score (max 27) 5 08/19 Nutrition Answer Date Recorded Nutrition: EVOO Fat Source No 08/15 On average, how many serving s of fruits and vegetables do you eat per day (serving size is equal to 1 cup or approximately the size of a tennis ball)? 2-3 08/15/2022 Dental Answer Date Recorded Dental: Regular Dentist Yes 11/30/19 Employment Answer Date Recorded Employment status Employed and actively working without restrictions 08/15/2022 Education Answer Date Recorded What is the highest level of school you have completed or the highest degree you have received? 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9 kg (149 lb 11.1 oz) 08/19/2022 8:10 AM OUTSOLE ROUNDER Height 151 cm (4' 11.45) 08/19/2022 8:10 AM OUTSOLE ROUNDER Body Mass Index 29.78 08/19/2022 8:10 AM OUTSOLE ROUNDER Plan of Treatment Upcoming Encounters Date Type Department Care Team (Late st Contact Info) Description 02/09/2024 9:00 AM CDT Office Visit Department of Orthopedic Surgery in [address] [address] Steve Jesus M.D. [address] [place] [phone] Discharge Disposition: Home or Self Care Health Maintenance Due Date Last Done Comments CT Colonography 1968 Cologuard 1968 FIT 1968 HIV Screening 1968 Hepatitis C Screening 1968 Hepatitis A Vaccines (3 of 3 - Hep A risk 3-dose series) 07/27/2015 02/24/2015, 01/19/2015 Hepatitis B Vaccines (3 of 3 - Hep B Twinrix 3-dose series) 07/27/2015 02/24/2015, 01/19/2015 Cervical Cancer Screening 10/16/20212018, 08/03/2014 (Performed elsewhere), 02/05/2007 Zoster Vaccines (2 of 2) 01/28/2022 12/03/2021 Mammogram 08/27/2022 08/27/2021, 02/01, 02/09/2020, Additional history exists COVID-19 Vaccine ( season) 2023 06/08/2021, 10/27/2020, 09/28/2020 Depression Screening (Annual PHQ-2) 08/04/2023 Fasting Glucose for Diabetes Screening 12/04/2024 12/04/2021, 08/11/2019 Lipid (Cholesterol) Screening 12/04/2026 12/04/2021, 08/03/2015 (Performed elsewhere) Colonoscopy 05/26/2029 05/26/2019 (Perf ormed elsewhere) Colorectal Cancer Screening 05/26/2029 DTaP,Tdap,and Td Vaccines (9 - Td or Tdap) 06/23/2033 06/23/2023, 05/07/2012, 05/07/2012, Additional history exists Influenza Vaccine Completed 06/23/2023, , 05/31/2019, Additional history exists Pneumococcal vaccine (0-64 years) Aged Out No longer eligible based on patient's age to complete this topic Medical Devices Implanted Type Area Pool Finisher Device Identifier Shelf Expiration Date Model / Serial / Lot Allogenic, Femoral Head - [id number] - [id number] Implanted:Qt y: 1 on 08/12/2019 by Steve Jesus M.D. at [facility] Bone or Tissue Posterior : Spine Lumbar [facility] 07/08/2021 [id number] / [id number] / [id number] Breast Implant-2009 Implanted: (Quantity not on file) Breast Implant Bilateral : Breast Hardware E.G. Pins/Screws/ Rods- 9 Implanted: (Quantity not on file) Hardware e.g. pins/screws /rods Neck Description:C6-C7 part of fu rodriguez Spn Scrw Exp Sld 6.35 7x45 - Sna - [id number] Implanted:Qt y: 4 on 08/12/2019 by Steve Jesus M.D. at [facility] Hardware e.g. pins/screws /rods Posterior : Spine Lumbar Depuy Synthes [id number] / NA / NA Spn Scrw Exp Sld 6.35 8x55 - Sna - [id number] Implanted:Qt y: 1 on 08/12/2019 by Steve Jesus M.D. at [facility] Hardware e.g. pins/screws /rods Posterior : Spine Lumbar Depuy Synthes [id number] / NA / NA Spn Scrw St Exp Sgl [place] 6.35 - Sna - [id number] Implanted:Qt y: 5 on 08/12/2019 by Steve Jesus M.D. at [facility] Hardware e.g. pins/screws /rods Posterior : Spine Lumbar Depuy Synthes [id number] / NA / NA Spn Noble Exp Pr Ld 6.35x45 - Sna - [id number] Implanted:Qt y: 1 on 08/12/2019 by Steve Jesus M.D. at [facility] Hardware e.g. pins/screws /rods Posterior : Spine Lumbar Depuy Synthes [id number] / NA / NA Spn Noble Exp Pr Ld 6.35x65 - Sna - [id number] Implanted:Qt y: 1 on 08/12/2019 by Steve Jesus M.D. at [facility] Hardware e.g. pins/screws /rods Posterior : Spine Lumbar Depuy Synthes [id number] / NA / NA Procedures Procedure Name Priority Date/Time Associated Diagnosis Comments BMD VERTEBRAL FRACTURE ASSESSMENT RAD - Routine (most inpatients and all outpatients) 12/25/2023 4:19 PM CDT Pain Cervical Osteoporosis BMD BONE DENSITY SPINE HIPS RAD - Routine (most inpatients and all outpatients) 12/25/2023 4:19 PM CDT Pain Cervical Osteoporosis OUTSIDE MR NEURO Routine 12/20/2023 10:2 0 AM CDT OUTSIDE MR NEURO Routine 12/20/2023 9:40 AM CDT OUTSIDE MR NEURO Routine 12/20/2023 9:25 AM CDT COMPREHENSIVE METABOLIC PANEL, S/P Routine 12/04/2021 7:26 AM CDT Mass Axilla Left Fibromyalgia Pain Back Thoracic Pain Back Screening Osteoporosis Gastroesophageal Reflux Disease Fatigue LIPID PANEL, S Routine 12/04/2021 7:26 AM CDT Mass Axilla Left Fibromyalgia Pain Back Thoracic Pain Back Screening Osteoporosis Gastroesophageal Reflux Disease Fatigue OUTSIDE MG MAMMOGRAM Routine 08/27/2021 9:50 AM OUTSOLE ROUNDER from Last 3 Months or Most Recently Relevant to Health Maintenance Results * BMD Vertebral Fracture Assessment (12/25/2023 4:19 PM CDT) Anatomical Region Laterality Modality Spine, Lumbar Spine, Thoraci c Spine, Nuclear Medicine RST LOS, Musculoskeletal ARZ LOS, Muskuloskeletal FLA LOS N/A Radiographic Imaging Impressions 12/25/2023 4:35 PM CDT No significant compression fractures identified on limited lateral view of thoracolumbar spine. Narrative 12/25/2023 4:35 PM CDT EXAM: ??BMD VERTEBRAL FRACTURE ASSESSMENT ----- VFA RESULTS ----- Region ?M/P Ratio ? A/P Ratio ? T4 ?81 ?85 ? T5 ?82 ?91 ? T6 ?85 ?96 ? T7 ?85 ?97 ? T8 ?84 ?95 ? T9 ?86 ?93 ? T10 ? 86 ?100 ? T11 ? 90 ?95 ? T12 ? 91 ?94 ? L1 ?90 ?103 ? L2 ?90 ?106 ? L3 ?95 ?106 ? L4 ?101 ? 103 ? An A/P or M/P ratio of <70% is likely to indicate a vertebral compression fracture. ??An A/P or M/P ratio of <80% or an A/P or M/P Z-score of -2.0 or less may also suggest a vertebral compression fracture. In either case, clinical correlation including review of the VFA images in QREADS is strongly recommended. ??Short vertebral heights and end plate abnormalities can be mistaken for vertebral fractures therefore if there is diagnostic uncertainty then spine radiography with a radiologist interpretation is recommended. Procedure Note Tu Huang M.D., Ph.D. - 12/25/2023 EXAM: BMD VERTEBRAL FRACTURE ASSESSMENT ----- VFA RESULTS ----- Region M/P Ratio A/P Ratio T4 81 85 T5 82 91 T6 85 96 T7 85 97 T8 84 95 T9 86 93 T10 86 100 T11 90 95 T12 91 94 L1 90 103 L2 90 106 L3 95 106 L4 101 103 An A/P or M/P ratio of <70% is likely to indicate a vertebral compressionfracture. An A/P or M/P ratio of <80% or an A/P or M/P Z-score of -2.0 orless may also suggest a vertebral compression fracture. In either case,clinical correlation including review of the VFA images in QREADS is strongly recommended. Shortvertebral heights and end plate abnormalities can be mistaken forvertebral fractures therefore if there is diagnostic uncertainty thenspine radiography with a radiologist interpretation is recommended. IMPRESSION: No significant compression fractures identified on limited lateral view ofthoracolumbar spine. Steve DONOHUE DXA PROCEDURE S * BMD Bone Density Spine Hips (12/25/2023 4:19 PM CDT) Anatomical Region Laterality Modality Hip, Lumbar Spine, Nuclear M edicine RST LOS, Musculoskeletal ARZ LOS, Muskuloskeletal FLA LOS N/A Radio graphic Imaging Impressions 12/25/2023 4:34 PM CDT Low bone density (Osteopenia) DualFemur (region: Neck Right) ?? Narrative 12/25/2023 4:34 PM CDT EXAM: ??BMD BONE DENSITY SPINE HIPS Bone Mineral Density (BMD) analysis performed on Vahna with serial number [id number]. ? COMPARISON: Serial Comparisons Left Total Hip results: Exam Date ? BMD ? T-score ? 08/11/2019 ?0.879 g/cm2 ?? -1.0 ? 12/25/2023 ? 0.856 g/cm2 ?? -1.2 ? Change vs. Previous (difference): -0.023 g/cm2 Change vs. Previous (%): -2.6 % The absolute BMD change from previous, -0.023 g/cm2, is greater than least significant change: No The absolute BMD change from baseline, -0.023 g/cm2, is greater than least significant change: No Right Total Hip results: Exam Date ? BMD ? T-score ? 08/11/2019 ?0.883 g/cm2 ?? -1.0 ? 12/25/2023 ? 0.869 g/cm2 ?? -1.1 ? Change vs. Previous (difference): -0.014 g/cm2 Change vs. Previous (%): -1.6 % The absolute BMD change from previous, -0.014 g/cm2, is greater than least significant change: No The absolute BMD change from baseline, -0.014 g/cm2, is greater than least significant change: No Combined Total Hip results: Exam Date ? BMD ? T-score ? 08/11/2019 ?0.881 g/cm2 ?? -1.0 ? 12/25/2023 ? 0.863 g/cm2 ?? -1.2 ? Change vs. Previous (difference): -0.018 g/cm2 Change vs. Previous (%): -2.0 % The absolute BMD change from previous, -0.018 g/cm2, is greater than least significant change: No The absolute BMD change from baseline, -0.018 g/cm2, is greater than least significant change: No ----- FINDINGS: Left Hip: Femur Neck: BMD = 0.792 g/cm2 T-score = -1.8 ?Z-score = -0.8 Total Hip: BMD = 0.856 g/cm2 T-score = -1.2 ?Z-score = -0.6 Right Hip: Femur Neck: BMD = 0.766 g/cm2 T-score = -2.0 ?? Z-score = -1.0 Total Hip: BMD = 0.869 g/cm2 T-score = -1.1 ?Z-score = -0.5 ? Please note: A more comprehensive DXA report, including images and graphs, is available in [facility]. In the absence of other causes of low BMD or demonstrated skeletal fragility, osteoporosis may be diagnosed in post-menopausal women and men at or above age 50 when the T-score is at or below -2.5 as defined by the WHO. Low bone density is present at T-scores between -1 and -2.5. The diagnosis in pre-menopausal women and men < age 50 can be based on low bone density or evidence of skeletal fragility in the appropriate clinical setting. Based on the lowest femur neck bone density results, and on the patient's answers to the Fracture Risk Assessment questionnaire (please refer to appropriate image stored in the BMD study in [facility]), the calculated ten year probability of fracture is: FRAX Risk Factors: None FRAX (10 yr probability) Major Osteoporotic Fracture: ??7.7 % Hip Fracture: ?0.9 % ? Today's spine scan is considered non-diagnostic according to ISCD Guidelines. L3-S1 spinal fusion Procedure Note Tu Huang M.D., Ph.D. - 12/25/2023 EXAM: BMD BONE DENSITY SPINE HIPS Bone Mineral Density (BMD) analysis performed on Vahna with serialnumber [id number]. COMPARISON: Serial Comparisons Left Total Hip results: Exam Date BMD T-score 08/11/2019 0.879 g/cm2 -1.0 12/25/2023 0.856 g/cm2 -1.2 Change vs. Previous (difference): -0.023 g/cm2 Change vs. Previous (%): -2.6 % The absolute BMD change from previous, -0.023 g/cm2, is greater than least significant change: No The absolute BMD change from baseline, -0.023 g/cm2, is greater than least significant change: No Right Total Hip results: Exam Date BMD T-score 08/11/2019 0.883 g/cm2 -1.0 12/25/2023 0.869 g/cm2 -1.1 Change vs. Previous (difference): -0.014 g/cm2 Change vs. Previous (%): -1.6 % The absolute BMD change from previous, -0.014 g/cm2, is greater than least significant change: No The absolute BMD change from baseline, -0.014 g/cm2, is greater than least significant change: No Combined Total Hip results: Exam Date BMD T-score 08/11/2019 0.881 g/cm2 -1.0 12/25/2023 0.863 g/cm2 -1.2 Change vs. Previous (difference): -0.018 g/cm2 Change vs. Previous (%): -2.0 % The absolute BMD change from previous, -0.018 g/cm2, is greater than least significant change: No The absolute BMD change from baseline, -0.018 g/cm2, is greater than least significant change: No ----- FINDINGS: Left Hip: Femur Neck: BMD = 0.792 g/cm2 T-score = -1.8 Z-score = -0.8 Total Hip: BMD = 0.856 g/cm2 T-score = -1.2 Z-score = -0.6 Right Hip: Femur Neck: BMD = 0.766 g/cm2 T-score = -2.0 Z-score = -1.0 Total Hip: BMD = 0.869 g/cm2 T-score = -1.1 Z-score = -0.5 Please note: A more comprehensive DXA report, including images and graphs,is available in [facility]. In the absence of other causes of low BMD or demonstrated skeletalfragility, osteoporosis may be diagnosed in post-menopausal women and menat or above age 50 when the T-score is at or below -2.5 as defined by theWHO. Low bone density is present at T-scores between -1 and -2.5. The diagnosis in pre-menopausal women andmen < age 50 can be based on low bone density or evidence of skeletalfragility in the appropriate clinical setting. Based on the lowest femur neck bone density results, and on the patient'sanswers to the Fracture Risk Assessment questionnaire (please refer toappropriate image stored in the BMD study in QREADS), the calculated tenyear probability of fracture is: FRAX Risk Factors: None FRAX (10 yr probability) Major Osteoporotic Fracture: 7.7 % Hip Fracture: 0.9 % Today's spine scan is considered non-diagnostic according to ISCDGuidelines. L3-S1 spinal fusion IMPRESSION: Low bone density (Osteopenia) DualFemur (region: Neck Right) Steve DONOHUE DXA PROCEDURE S * MR Cervical WO(Unpaired)-Outside MR Neuro (12/20/2023 10:20 AM CDT) Only the most recent of3 resultswithin the time period is included. Deann II - 12/22/2023 4:10 PM CDT This order has been created and auto-finalized to support the import of outside images. If available, original interpretation can be found on the Media Tab in Chart Review, in Document Viewer, or as an image in QREADS. If a re-interpretation or overread is required please follow defined workflow. ?? Provider Not In System IMG MRI PROCEDURE S [facility] NA * (ABNORMAL) Lipid Panel (12/04/2021 7:26 AM CDT) Cholesterol, Total 269(H) mg/dL 2021 2:21 PM CDT DTL Comment: ----REFERENCE VALUE---- Desirable: < 200 Borderline high: 200 - 239 High: > or = 240 Triglycerides 93 mg/dL 12/04/2021 2:21 PM CDT DTL Comment: ----REFERENCE VALUE---- Normal: <150 Borderline high: 150-199 High: 200-499 Very high: > or =500 Cholesterol, HDL, S 80 >=50 mg/dL 12/04/2021 2:21 PM CDT DTL Calculated LDL 170(H) mg/dL 12/04/2021 2:21 PM CDT DTL Comment: ----REFERENCE VALUE---- Desirable: <100 mg/dL Above Desirable: 100-129 mg/dL Borderline High: 130-159 mg/dL High: 160-189 mg/dL Very High: >=190 mg/dL Cholesterol, Non-HDL, Calculated 189(H) mg/dL 12/04/2021 2:21 PM CDT DTL Comment: ----REFERENCE VALUE---- Desirable: <130 Above Desirable: 130-159 Borderline high: 160-189 High: 190-219 Very high: > or =220 Blood (Blood, Venous) 12/04/2021 7:26 AM CDT 12/04/2021 1:13 PM CDT Mu [place] D.O. LAB BLOOD ADD-ON [facility] [address] [place] [address], [facility] DTL [facility] [address] [place] [address] * (ABNORMAL) Comprehensive Metabolic Panel (12/04/2021 7:26 AM CDT) [facility] Potassium, S 4.5 3.6 - 5.2 mmol/L 12/04/2021 3:38 PM CDT DTL Sodium, S 142 135 - 145 mmol/L 12/04/2021 3:38 PM CDT DTL Chloride, S 103 98 - 107 mmol/L 12/04/2021 3:38 PM CDT DTL Bicarbonate, S 26 22 - 29 mmol/L 12/04/2021 3:38 PM CDT DTL Anion Gap 13 7 - 15 12/04/2021 3:38 PM CDT DTL BUN (Blood Urea Nitrogen), S 18 6 - 21 mg/dL 12/04/2021 3:38 PM CDT DTL Creatinine 1.19(H) 0.59 - 1.04 mg/dL 12/04/2021 3:38 PM CDT DTL eGFR-Non Black/ 52(L) >=60 mL/min/BS A 12/04/2021 3:38 PM CDT DTL Comment: ----ADDITIONAL INFORMATION---- Estimated GFR calculated using the 2009 CKD_EPI creatinine equation. eGFR-Black/ 60 >=60 mL/min/BS A 12/04/2021 3:38 PM CDT DTL Comment: ----ADDITIONAL INFORMATION---- Estimated GFR calculated using the 2009 CKD_EPI creatinine equation. Calcium, Total, S 9.5 8.6 - 10.0 mg/dL 12/04/2021 3:38 PM CDT DTL Glucose, S 88 70 - 140 mg/dL 12/04/2021 3:38 PM CDT DTL Protein, Total, S 7.1 6.3 - 7.9 g/dL 12/04/2021 3:38 PM CDT DTL Albumin, S 5.0 3.5 - 5.0 g/dL 12/04/2021 3:38 PM CDT DTL Aspartate Aminotransferase (AST), S 24 8 - 43 U/L 12/04/2021 3:38 PM CDT DTL Alkaline Phosphatase, S 31(L) 35 - 104 U/L 12/04/2021 3:38 PM CDT DTL Alanine Aminotransferase (ALT), S 20 7 - 45 U/L 12/04/2021 3:38 PM CDT DTL Bilirubin, Total, S 0.5 <=1.2 mg/dL 12/04/2021 3:38 PM CDT DTL Blood (Blood, Venous) 12/04/2021 7:26 AM CDT 12/04/2021 2:29 PM CDT Mu [place] D.O. LAB BLOOD ADD-ON Performing Organization Address [facility] [facility] Co de Phone Number [facility] ([facility] [address] [place] [address], [facility] DTL [facility] [address] [place] [address] * DIAGNOSTIC MAMMO, BILAT, W/CAD-Outside Mammogram (08/27/2021 9:50 AM OUTSOLE ROUNDER) Narrative IIMS - 12/03/2021 10:39 AM CDT This order has been created and auto-finalized to support the import of outside images. If available, original interpretation can be found on the Media Tab in Chart Review, in Document Viewer, or as an image in QREADS. If a re-interpretation or overread is required please follow defined workflow. ?? Provider Not In System IMG BI PROCEDURES Performing Organization Address City/[facility] Co de Phone Number IIMS NA from Last 3 Months or Most Recently Relevant to Health Maintenance Advance Directives For more information, please contact: [phone] * Full Code (Latest Code Status on File) Date Activated Date Inactivated Comments 08/12/2019 1:44 PM 08/14/2019 3:15 PM Question Answer Comments Full Code: Discussed Care Teams Tool Inspector Relationship Specialty Start Date End Date Elsewhere, Pcp PCP - General Internal Medicine 08/16/22
--- OUTSIDE RECORDS SUMMARY | 2024-02-02 13:10 | XMS_ITS | Referral Summary ---
Author Organization [facility] Address [address] [place] [address] Care Team Providers Care Shagger Name Role Phone Elsewhere, Pcp Primary Care Provider Unavailabl e Source Comments Patient records contain information from all sites at [facility]. For routine questions regarding patient records, call [phone] during business hours, M-F 8:00 AM - 5:00 PM Central Time. Record requests for emergency care only can be directed to [phone] at any time.[facility] Encounters Date Type Department Care Team Description 12/25/2023 3:48 PM CDT - 12/25/2023 11:59 PM CDT Hospital Encounter Department of Radiology, [facility], in [place], [place] [address] [place] [address] Steve Jesus M.D. Pain Cervical; Osteoporosis Discharge Disposition: Home or Self Care from Last 3 Months Allergies Active Allergy Reactions Criticality Noted Date [...] Overview: Added automatically from request for surgery [id number] Stenosis Spinal 04/21/2019 Overview: Added automatically from request for surgery [id number] Immunizations Name Administration Dates Next Due DT, Pediatric 07/22/1994 HepA / HepB 02/24/2015,01/19/2015 Influenza TIV (IM) 05/06/2013, 2,05/28/2011,2009,06/14/2003,06/17/2002,06/23/2001,1 09/24/1999,05/14/1999 Influenza, Injectable, Quadrivalent 05/31/2019 Influenza, Seasonal, Injectable 05/06/20 13,05/07/2012,05/28/2011,2009,06/14/2003,06/17/2002,06/23/2001,1 09/24/1999,05/14/1999 Influenza, Unspecified 05/31/2019,1997,05/18/1997,1995 RZV (SHINGRIX) 12/03/2021(Deferred: Other) Td (Adult), adsorbed 04/27/1999,07/22/1994 Td Preservative Free (TENIVA C, DECAVAC) 02/23/1999 Tdap 05/07/2012,05/07/2012,02/23/2009 TyVi (inj) 01/19/2015 influenza vaccine quad (FLUZONE/FLUARIX) (6 months and older)(PF) 04/28/2020,05/05/2018,09/11/2017,2013 Social History Tobacco Use Types Packs/Day Years [...] How often do you attend chur or yazidi services? More than 4 times per year 08/15/2022 Do you belong to any clubs o r organizations such as religion groups, unions, fraternal or [...] Answer Date Recorded PHQ-2 Score 2 08/19/2022 [facility] Occupat ional [facility] - Occupational Stress Questionnaire Answer Date Recorded [...] or slept in a detention (including now)? No 08/15/2022 Depression Answer Date [...] Master's degree (e.g., MA, MS, Anika, MEd, ENVIRONMENTAL HEALTH MANAGER, SINDY) 08/08/2019 Sex and Gender Information Value Date Recorded Sex Assigned at Female 03/04/2018 7:21 PM CDT Gender Identity Female 03/04/2018 7:21 PM CDT Sexual Orientation Straight 03/04/2018 7: 21 PM CDT Last Filed Vital Signs Vital Sign Reading Time Taken Comments Blood Pressure 144/86 08/19/2022 8:10 AM REAL ESTATE ECONOMIST Pulse 84 08/19/2022 8:10 AM REAL ESTATE ECONOMIST Temperature 37 ??C (98.6 ??F) 08/14/2019 12: 30 PM REAL ESTATE ECONOMIST Respiratory Rate 17 08/14/2019 12:3 0 PM REAL ESTATE ECONOMIST Oxygen Saturation 98% 08/14/2019 12: 34 PM REAL ESTATE ECONOMIST Inhaled Oxygen Concentration - - Weight 67.9 kg (149 lb 11.1 oz) 08/19/2022 8:10 AM REAL ESTATE ECONOMIST Height 151 cm (4' 11.45) 08/19/2022 8:10 AM REAL ESTATE ECONOMIST Body Mass Index 29.78 08/19/2022 8:10 AM REAL ESTATE ECONOMIST Plan of Treatment Upcoming Encounters Date Type Department Care Team (Late st Contact Info) Description 02/09/2024 9:00 AM CDT Office Visit Department of Orthopedic Surgery in [address] [address] Steve Jesus M.D. [address] [place] [address] Discharge Disposition: Home or Self Care Medical Devices Implanted Type Area Steam Bone Press Tender Device Identifier Shelf Expiration Date Model / Serial / Lot Allogenic, Femoral Head - [id number] - [id number] Implanted:Qt y: 1 on 08/12/2019 by Steve Jesus M.D. at [facility] Bone or Tissue Posterior : Spine Lumbar [facility] 07/08/2021 [id number] / [id number] / [id number] Breast Implant-2009 Implanted: (Quantity not on file) Breast Implant Bilateral : Breast Hardware E.G. Pins/Screws/ Rods- 9 Implanted: (Quantity not on file) Hardware e.g. pins/screws /rods Neck Description:C6-C7 part of fu rodriguez Spn Scrw Exp Sld 6.35 7x45 - Sna - [id number] Implanted:Qt y: 4 on 08/12/2019 by Steve Jesus M.D. at [facility] Hardware e.g. pins/screws /rods Posterior : Spine Lumbar Depuy Synthes [id number] / NA / NA Spn Scrw Exp Sld 6.35 8x55 - Sna - [id number] Implanted:Qt y: 1 on 08/12/2019 by Steve Jesus M.D. at [facility] Hardware e.g. pins/screws /rods Posterior : Spine Lumbar Depuy Synthes [id number] / NA / NA Spn Scrw St Exp Sgl [place] 6.35 - Sna - [id number] Implanted:Qt y: 5 on 08/12/2019 by Steve Jesus M.D. at [facility] Hardware e.g. pins/screws /rods Posterior : Spine Lumbar Depuy Synthes [id number] / NA / NA Spn Noble Exp Pr Ld 6.35x45 - Sna - [id number] Implanted:Qt y: 1 on 08/12/2019 by Steve Jesus M.D. at [facility] Hardware e.g. pins/screws /rods Posterior : Spine Lumbar Depuy Synthes [id number] / NA / NA Spn Noble Exp Pr Ld 6.35x65 - Sna - [id number] Implanted:Qt y: 1 on 08/12/2019 by Steve Jesus M.D. at [facility] Hardware e.g. pins/screws /rods Posterior : Spine Lumbar Depuy Synthes [id number] / NA / NA Procedures Procedure Name [...] OUTSIDE MG MAMMOGRAM Routine 08/27/2021 9:50 AM REAL ESTATE ECONOMIST from Last 3 Months or Most Recently [...] on limited lateral view ofthoracolumbar spine. Steve Jesus M.D. Robin DXA PROCEDURE S * BMD Bone Density [...] Bone Mineral Density (BMD) analysis performed on [employer] with serial number [id number]. ? COMPARISON: Serial Comparisons Left Total Hip [...] including images and graphs, is available in [employer]. In the absence of other causes of [...] image stored in the BMD study in [employer]), the calculated ten year probability of fracture is: FRAX Risk Factors: None FRAX (10 yr probability) Major Osteoporotic Fracture: ??7.7 % Hip Fracture: ?0.9 % ? Today's spine scan is considered non-diagnostic according to ISCD Guidelines. L3-S1 spinal fusion Procedure Note Tu Huang M.D., Ph.D. - 12/25/2023 EXAM: BMD BONE DENSITY SPINE HIPS Bone Mineral Density (BMD) analysis performed on [employer] with serialnumber [id number]. COMPARISON: Serial Comparisons Left Total Hip results: [...] report, including images and graphs,is available in [employer]. In the absence of other causes of [...] resultswithin the time period is included. Deann [facility] - 12/22/2023 4:10 PM CDT This order has been created and auto-finalized to support the import of outside images. If available, original interpretation can be found on the Media Tab in Chart Review, in Document Viewer, or as an image in QREADS. If a re-interpretation or overread is required please follow defined workflow. ?? Provider Not In System IMG MRI PROCEDURE S IIMS NA * (ABNORMAL) Lipid Panel (12/04/2021 7:26 [...] CDT Mu Kong D.O. LAB BLOOD ADD-ON [facility] [place] [address] [place] [address], [facility] DTL [facility] [address] [place] [address] * (ABNORMAL) Comprehensive Metabolic Panel (12/04/2021 7:26 AM CDT) [facility] Potassium, S 4.5 3.6 - 5.2 mmol/L [...] D.O. LAB BLOOD ADD-ON Performing Organization Address City/[facility] Co de Phone Number [facility] [place] [address] [place] [address], [place] DTL [facility] [address] [place] [address] * DIAGNOSTIC MAMMO, BILAT, W/CAD-Outside Mammogram (08/27/2021 9:50 AM REAL ESTATE ECONOMIST) Narrative IIMS - 12/03/2021 10:39 AM CDT [...] System IMG BI PROCEDURES Performing Organization Address City/[facility] Co de Phone Number IIMS NA from Last 3 Months or Most Recently Relevant to Health Maintenance Advance Directives For more information, please contact: [phone] * Full Code (Latest Code Status on File) Date Activated Date Inactivated Comments 08/12/2019 1:44 PM 08/14/2019 3:15 PM Question Answer Comments Full Code: Discussed Care Teams Shagger Relationship Specialty Start Date End Date Elsewhere, Pcp PCP - General Internal Medicine 08/16/22
--- OUTSIDE RECORDS SUMMARY | 2024-02-02 13:10 | XMS_ITS | Encounter Summary ---
Author Organization [facility] Address [address] [place] [address] Care Team Providers Care Top Edge Beveler Name Role Phone Elsewhere, Pcp Primary Care Provider Unavailabl e Reason for Referral * Outpatient (Routine) - Closed Specialty Diagnoses / Procedures Referred By Contac t Referred To Contact Diagnoses Pain Cervical Osteoporosis Procedures BMD Vertebral Fracture Assessment Steve Jesus M.D. [address] [place] [address] [facility] Referral ID Status Reason Start Date Expiration Date Visits Re quested Visits Authorized [id number] Closed 10/14/2022 10/14/2023 1 1 * Outpatient (Routine) - Closed Specialty Diagnoses / Procedures Referred By Contac t Referred To Contact Diagnoses Pain Cervical Osteoporosis Procedures BMD Bone Density Spine Hips Steve Jesus M.D. [address] [place] [address] [facility] Referral ID Status Reason Start Date Expiration Date Visits Re quested Visits Authorized [id number] Closed 10/14/2022 10/14/2023 1 1 Reason for Visit * Outpatient (Routine) - Closed Specialty Diagnoses / Procedures Referred By Contac t Referred To Contact Diagnoses Pain Cervical Osteoporosis Procedures BMD Vertebral Fracture Assessment Steve Jesus M.D. [address] [place] [address] [facility] Referral ID Status Reason Start Date Expiration Date Visits Re quested Visits Authorized [id number] Closed 10/14/2022 10/14/2023 1 1 Encounter Details Date Type Department Care Team (Latest Contact Info) Description 12/25/2023 3:48 PM CDT - 12/25/2023 11:59 PM CDT Hospital Encounter Department of Radiology, [facility], in [place], [place] [address] [place] [address] Steve Jesus M.D. [address] [place] [address] Pain Cervical; Osteoporosis Discharge Disposition: Home or Self Care Social History Tobacco Use Types Packs/Day Years [...] week 08/15/2022 How often do you attend [facility] services? More than 4 times per year 08/15/2022 Do you belong to any clubs o r organizations such as mu-ism groups, unions, fraternal or [...] Answer Date Recorded PHQ-2 Score 2 08/19/2022 [facility] of Occupat ional [facility] - Occupational Stress Questionnaire Answer Date Recorded [...] or slept in a jail (including now)? No 08/15/2022 Depression Answer Date [...] Master's degree (e.g., MA, MS, Anika, MEd, [employer]PER[employer], SINDY) 08/08/2019 Sex and Gender Information Value Date Recorded Sex Assigned at Female 03/04/2018 7:21 PM CDT Gender Identity Female 03/04/2018 7:21 PM CDT Sexual Orientation Straight 03/04/2018 7: 21 PM CDT documented as of this encounter Medications at Time of Discharge Medication Sig Dispensed Refills Start Date End Date acetaminophen (TYLENOL) 500 mg tablet Take 1,000 mg by mouth as needed for pain. calcium carbonate 1,500 mg (600 mg calcium) tablet Take 600 mg of calcium by mouth daily. 09/19/2021 cholecalciferol, vitamin D3, 25 mcg (1,000 Unit) tablet Take 1,000 Units by mouth every morning. cyclobenzaprine (FLEXERIL) 10 mg tablet Take 5-10 mg by mouth as needed for muscle spasms. Lactobacillus acidophilus (Probiotic) 10 billion cell capsule Take 1 capsule by mouth every morning. ubidecarenone (COENZYME Q10 ORAL) Take 1 capsule by mouth every other day. Patient unsure of dose documented as of this encounter Plan of Treatment Upcoming Encounters Date Type Department Care Team (Late st Contact Info) Description 02/09/2024 9:00 AM CDT Office Visit Department of Orthopedic Surgery in [place], [place] [address] [place] [id number] Steve Jesus M.D. [address] [place] [address] Discharge Disposition: Home or Self Care documented as of this encounter Procedures Procedure Name Priority Date/Time Associated Diagnosis Comments BMD VERTEBRAL FRACTURE ASSESSMENT RAD - Routine (most inpatients and all outpatients) 12/25/2023 4:19 PM CDT Pain Cervical Osteoporosis BMD BONE DENSITY SPINE HIPS RAD - Routine (most inpatients and all outpatients) 12/25/2023 4:19 PM CDT Pain Cervical Osteoporosis documented in this encounter Results * BMD Vertebral Fracture Assessment (12/25/2023 [...] lateral view ofthoracolumbar spine. Steve Jesus M.D. [facility] [place]XA PROCEDURE S * BMD Bone Density [...] Bone Mineral Density (BMD) analysis performed on [employer] with serial number [id number]. ? COMPARISON: Serial Comparisons Left Total Hip [...] including images and graphs, is available in [employer]. In the absence of other causes of [...] image stored in the BMD study in [employer]), the calculated ten year probability of fracture is: FRAX Risk Factors: None FRAX (10 yr probability) Major Osteoporotic Fracture: ??7.7 % Hip Fracture: ?0.9 % ? Today's spine scan is considered non-diagnostic according to ISCD Guidelines. L3-S1 spinal fusion Procedure Note Tu Huang M.D., Ph.D. - 12/25/2023 EXAM: BMD BONE DENSITY SPINE HIPS Bone Mineral Density (BMD) analysis performed on [employer] with serialnumber [id number]. COMPARISON: Serial Comparisons Left Total Hip results: [...] report, including images and graphs,is available in [employer]. In the absence of other causes of [...] Neck Right) Steve DONOHUE DXA PROCEDURE S documented in this encounter Visit Diagnoses Diagnosis Pain Cervical Osteoporosis documented in this encounter Additional Health Concerns Assessment Noted Time PHQ-9 Depression Total Score: 5 08/19/19 23 7:26 AM MATHEMATICAL SCIENTIST documented as of this encounter Care Teams Top Edge Beveler Relationship Specialty Start Date End Date Elsewhere, Pcp PCP - General Internal Medicine 08/16/22 documented as of this encounter
== END 2024-02-02 13:06 | disposition home or self-care (01) ==
LOC: MAMMO 13:05
PROVIDERS: PCP Family Medicine; Visit Provider Family Medicine
DX: Z12.31 Encounter for screening mammogram for malignant neoplasm of breast (principal)
CPT/HCPCS: 77063; 77067

== ENCOUNTER 2024-07-02 15:06 | Outpatient (CLI) | payer BC, SELFPAY ==
--- OUTSIDE RECORDS SUMMARY | 2024-07-02 15:17 | XMS_ITS | Referral Summary ---
Author Organization [facility] Address [address] [place] [address] Care Team Providers Care Polisher And Sander Name Role Phone [facility], [facility] Primary Care Provider Allergies No known active allergies Medications Vitamins A & D (VITAMIN A & D) ointment Apply topically as needed for dry skin or irritation Active oxyCODONE-aceta minophen (PERCOCET) 5-325 MG per tablet Take 1-2 tablets by mouth every 4 hours as needed for moderate to severe pain 15 tablet 0 4 Active Pregabalin (LYRICA PO) Take 75 mg by mouth 2 times daily Active CYCLOBENZAPRINE HCL PO Active acetaminophen-c odeine (TYLENOL WITH CODEINE #3) 300-30 MG per tablet Take 1-2 tablets by mouth every 6 hours as needed for pain 12 tablet 8 Active Social History Tobacco Use Types Packs/Day Years Used Date Smoking Tobacco: Never Alcohol Use Standard Drinks/Week Comments Yes 0 (1 standard drink = 0.6 oz pur e alcohol) Adolescent Education Answer Date Record ed Getting School Help Needed Not on file 05/04 Comments Unknown Sex and Gender Information Value Date Recorded Sex Assigned at Not on file Legal Sex Female 3:23 AM WHEEL OF FORTUNE DEALER Gender Identity Not on file Sexual Orientation Not on file Last Filed Vital Signs Vital Sign Reading Time Taken Comments Blood Pressure 111/69 05/09/2018 3:30 AM CDT Pulse 76 05/09/2018 5:18 AM CDT Temperature 36.6 C (97.9 F) 05/09/2018 12:20 AM CDT Respiratory Rate 16 05/09/2018 5:18 AM CDT Oxygen Saturation 99% 05/09/2018 5:18 AM CDT Inhaled Oxygen Concentration - - Weight 58.5 kg (129 lb) 06/24/2014 7:51 PM WHEEL OF FORTUNE DEALER Height 152.4 cm (5') 06/24/2014 7:51 PM WHEEL OF FORTUNE DEALER Body Mass Index 25.19 06/24/2014 7:51 PM WHEEL OF FORTUNE DEALER Plan of Treatment Not on file Procedures Procedure Name Priority Date/Time Associated Diagnosis Comments BASIC METABOLIC PANEL STAT 05/09/2018 3:49 AM CDT Acute pain of left shoulder from Last 3 Months or Most Recently Relevant to Health Maintenance Results * (ABNORMAL) Basic metabolic panel (05/09/2018 3:49 AM CDT) Sodium 139 133 - 144 mmol/L 05/09/2018 4:23 AM [facility] Potassium 3.8 3.4 - 5.3 mmol/L 05/09/2018 4:23 AM [facility] Chloride 107 94 - 109 mmol/L 05/09/2018 4:23 AM [facility] Carbon Dioxide 27 20 - 32 mmol/L 05/09/2018 4:23 AM [facility] Anion Gap 5 3 - 14 mmol/L 05/09/2018 4:23 AM [facility] Glucose 104(H) 70 - 99 mg/dL 05/09/2018 4:23 AM [facility] Urea Nitrogen 19 7 - 30 mg/dL 05/09/2018 4:23 AM [facility] Creatinine 0.97 0.52 - 1.04 mg/dL 05/09/2018 4:23 AM [facility] GFR Estimate 61 >60 mL/min/1.7 m2 05/09/2018 4:23 AM [facility] Comment:Non GFR Calc GFR Estimate If Black 74 >60 mL/min/1.7 m2 05/09/2018 4:23 AM [facility] Comment: GFR Calc Calcium 8.1(L) 8.5 - 10.1 mg/dL 05/09/2018 4:23 AM [facility] Blood specimen (specimen) 05/09/2018 3:49 AM CDT 05/09/2018 4:11 AM CDT us Nanci De La Vega MD LAB - BLOOD ORDERABLES Final R esult [facility] [address] [place] [address], [facility] [phone] from Last 3 Months or Most Recently Relevant to Health Maintenance Insurance [place] Care Teams Polisher And Sander Relationship Specialty Start Date End Date Clinic, [address] [address] PCP - General 05/09/18
--- OUTSIDE RECORDS SUMMARY | 2024-07-02 15:17 | XMS_ITS | Clinical Summary ---
Author Organization [facility] Address [address] [place] [address] Care Team Providers Care Barrel Stave Inspector Name Role Phone [facility], [facility] Primary Care Provider Allergies No known [...] on file Legal Sex Female 3:23 AM BRIAR WOOD SORTER Gender Identity Not on file Sexual Orientation [...] 58.5 kg (129 lb) 06/24/2014 7:51 PM BRIAR WOOD SORTER Height 152.4 cm (5') 06/24/2014 7:51 PM BRIAR WOOD SORTER Body Mass Index 25.19 06/24/2014 7:51 PM BRIAR WOOD SORTER Plan of Treatment Health Maintenance Due Date [...] 05/07/2022 05/07/2012, 02/23/2009, 04/27/1999, Additional history exists PHQ-2 (once per calendar year) 2023 COVID-19 Vaccine ( - season) 2024 06/08/2021, 10/27/2020, 09/28/2020 INFLUENZA VACCINE (#1) 2024 , 05/31/2019, 05/31/2019, Additional history exists RSV VACCINE (1 - 1-dose 75+ series) 2043 HPV IMMUNIZATION Aged Out No longer e [...] LAB - BLOOD ORDERABLES Final R esult [facility] [address] [place] [address], [facility] [phone] from Last 3 Months or Most Recently Relevant to Health Maintenance Insurance [employer] Care Teams Barrel Stave Inspector Relationship Specialty Start Date End Date Clinic, [address] [address] PCP - General 05/09/18
--- OUTSIDE RECORDS SUMMARY | 2024-07-02 15:17 | XMS_ITS | Clinical Summary ---
Author Organization [facility] Address [place], [place] [address] Care Team Providers Care Recreation Therapist Name Role Phone Nonstaff, Doctor Primary Care [...] 08/19/2013, Additional history exists COVID-19 vaccine series (2023- season) 2024 Influenza for age 50-64 04/04/2024 Pneumococcal series for age 6-64 Aged Out No longer eligible based on patient's age to complete this topic Procedures Procedure Name Priority Date/Time Associated Diagnosis Comments CORK INSULATOR THIN PREP PAP SCREEN IMAGED Routine 10/16/2018 3:10 PM CDT from Last 3 Months or Most Recently Relevant to Health Maintenance Results * CORK INSULATOR THIN PREP PAP SCREEN IMAGED (10/16/2018 3:10 PM CDT) Case Report Gynecologic Cytology Report Case: [id number] Authorizing Provider: Riana Dorsey PA-C Collected: 10/16/2018 1510 Ordering Location: [facility] Received: 10/19/2018 1438 First Screen: Kamran Argueta Specimen: CORK INSULATOR ThinPrep Vial Screening, Cervical/Vaginal 10/26/2018 9:52 AM CDT [facility] INTERPRETATION/ RESULT NEGATIVE FOR INTRAEPITHELIAL LESION OR MALIGNANCY (NIL) (none) 10/26/2018 9:52 AM CDT [facility] IMEN ADEQUACY Satisfactory for evaluation Endocervical component present 10/26/2018 9:52 AM CDT [facility] HPV REQUEST HPV and PAP 10/26/2018 9:52 AM CDT [facility] Last Pap Date 10/26/2018 9:52 AM CDT [facility] Comment:2013 Last Pap Result NIL 9 9:52 AM CDT [facility] Menstrual Status Ablation 10/26/2018 9:52 AM CDT [facility] Automated Review Successful 10/26/2018 9:52 AM CDT [facility] Comment:Specimen processed s uccessfully by automated boiler or engine operator device, [employer] System, [employer] ANCILLARY TESTING CORK INSULATOR HPV Ordered, Please see separate report 10/26/2018 9:52 AM CDT [facility] Note The pap test is a screening technique, not a diagnostic procedure. It is used primarily to screen for squamous cancers and precursor lesions. Published studies have shown that it is subject to both false negative and false positive results. The pap test should not be used as the sole means to diagnose or exclude pre-malignant and malignant lesions. Cytology is screened and interpreted at [facility] - [address], [place] [address] and [facility] - [address] [place] [address]; [place] [address] and [facility] - [address]; [place] [address] and [facility] [address]; [place] [address] 10/26/2018 9:52 AM CDT [facility] Other (Cervical/Vagina l) 10/16/2018 3:10 PM CDT 10/19/2018 2:38 PM CDT Riana Dorsey PA-C PATHOLOGY/CYTOLOGY [facility] [address] [place] [address], [place] from Last 3 Months or Most Recently Relevant to Health Maintenance Care Teams Recreation Therapist Relationship Specialty Start Date End Date Nonstaff, Doctor NON STAFF DOCTOR PCP - General 06/14/11
--- OUTSIDE RECORDS SUMMARY | 2024-07-02 15:18 | XMS_ITS | Encounter Summary ---
Author Organization [facility] Address [address], [place] [address] Care Team Providers Care Tie Hacker Name Role Phone Britney Jarrett MD Primary Care Provider [phone] Encounter Details Date Type Department Care Team (Latest Contact Info) Description 01/23/2000 Orders Only Madelin Becerril MD [address] [place] [address] Social History Tobacco Use Types Packs/Day Years Used Date Smoking Tobacco: Never Assessed Sex and Gender Information Value Date Recorded Sex Assigned at Not on file Gender Identity Not on file Sexual Orientation Not on file documented as of this encounter Plan of Treatment Upcoming Encounters Date Type Department Care Team (Late st Contact Info) Description 08/24/2024 4:00 PM SHUTTLE THREADER Appointment TMD at [facility] [address] [facility] [place] [address] Aracelis Siddiqui, ERIKAS, MS [address] [place] [address] documented as of this encounter Visit Diagnoses Not on filedocumented in this encounter Additional Health Concerns Infection Onset Date Last Indicated Resolved Time R/O COVID19 03/08/2020 03/08/2020 03/11/2020 1:28 AM CDT documented as of this encounter Care Teams Tie Hacker Relationship Specialty Start Date End Date Britney Jarrett MD [address] [place] [address] PCP - General 04/04/16 documented as of this encounter
--- OUTSIDE RECORDS SUMMARY | 2024-07-02 15:18 | XMS_ITS | Encounter Summary ---
Author Organization [facility] Address [address] [place] [address] Care Team Providers Care Feed Mill Supervisor Name Role Phone Britney Jarrett MD Primary Care Provider [phone] Reason for Visit * Reason Comments Other 05/04/24 LM asking th at patient keep her appointment for 05/05 @ 4:00> would like to see her F/U even though she is junior well. If she would like to reschedule for another date I asked that she contact the office. Requested that she contact office to let us know what she would like to do. Encounter Details Date Type Department Care Team (Late st Contact Info) Description 05/04/2024 Telephone TMD at [facility] [place] [address] [place] [address] Yolis Reynolds, LDA [address] [place] [address] Other (05/04/24 LM asking that patient keep her appointment for 05/05 @ 4:00> would like to see her F/U even though she is junior well. If she would like to reschedule for another date I asked that she contact the office. Requested that she contact office to let us know what she would like to do. ) Social History Tobacco Use Types Packs/Day Years [...] Nursing Notes * Yolis Reynolds LDA - 05/04/2024 8:58 AM CDT 05/04/24 LM asking that patient keep her appointment for 05/05 @ 4:00> would like to see her F/U even though she is junior well. If she would like to reschedule for another date I asked that she contact the office. Requested that she contact office to let us know what she would like to do. documented in this encounter Plan of Treatment Upcoming Encounters Date Type Department Care Team (Late st Contact Info) Description 08/24/2024 4:00 PM AIRCRAFT HYDRAULIC EQUIPMENT MECHANIC Appointment TMD at [facility] [place] [address] [place] [address] Aracelis Siddiqui, DDS, MS [address] [place] [address] documented as of this encounter Visit Diagnoses Not on filedocumented in this encounter Care Teams Feed Mill Supervisor Relationship Specialty Start Date End Date Britney Jarrett MD [address] [place] [address] PCP - General 04/04/16 documented as of this encounter
--- OUTSIDE RECORDS SUMMARY | 2024-07-02 15:18 | XMS_ITS | Encounter Summary ---
Author Organization [facility] Address [address], [place] [address] Care Team Providers Care Marketing Intern Name Role Phone Britney Jarrett MD Primary Care Provider [phone] Encounter Details Date Type Department Care Team [...] st Contact Info) Description 08/24/2024 4:00 PM METEOROLOGICAL AIDE Appointment TMD at [facility] [address] [place] [address] Aracelis Siddiqui, DDS, MS [address] [place] [address] documented as of this encounter Visit Diagnoses Not on filedocumented in this encounter Additional Health Concerns Infection Onset Date Last Indicated Resolved Time R/O COVID19 03/08/2020 03/08/2020 03/11/2020 1:28 AM CDT documented as of this encounter Care Teams Marketing Intern Relationship Specialty Start Date End Date Britney Jarrett MD [address] [place] [address] PCP - General 04/04/16 documented as of this encounter
--- OUTSIDE RECORDS SUMMARY | 2024-07-02 15:18 | XMS_ITS | Clinical Summary ---
Author Organization [facility] Address [address] [place] [address] Care Team Providers Care Curtain Mender Name Role Phone Elsewhere, Pcp Primary Care Provider Unavailabl e Source Comments Patient records contain information from all sites at [facility]. For routine questions regarding patient records, call [phone] during business hours, M-F 8:00 AM - 5:00 PM Central Time. Record requests for emergency care only can be directed to [phone] at any time.[facility] Allergies Active Allergy Reactions Criticality Noted Date Comments Mold Other (see comments) 01/30/2017 sinus infection Medications acetaminophen (TYLENOL) 500 mg tablet Take 1,000 [...] of calcium by mouth daily. 09/19/2021 Active diclofenac-miSOP ROStol (Arthrotec 50) 50-200 mg-mcg per DR tablet Take 1 tablet by mouth 3 (three) times a day. Do not crush or chew. 90 tablet 3 03/18/2024 Active Active Problems Problem Noted Date Diagnosed Date Primary Osteoarthritis Cervical Spine 12/07/2021 Cyst Renal 12/07/2021 Fatigue 12/03/2021 Screening Osteoporosis 12/03/2021 Pain Back Thoracic 12/03/2021 Fibromyalgia 12/03/2021 Mass Axilla Left 12/03/2021 Gastroesophageal Reflux Disease 12/03/2021 Preoperative Exam 04/21/2019 Overview (04/21/2019): Added automatically from request for surgery [id number] Stenosis Spinal 04/21/2019 Overview (04/21/2019): Added automatically from request for surgery [id number] Immunizations Name Administration Dates Next Due DT, [...] Marianne Booker Type 1 Diabetes Father Yovani Schiller Type 2 Stroke Father Yovani Martinez 81 years old Arthritis Mother Jenniffer Martinez Breast cancer Mother Jenniffer Martinez Osteoporosis Mother Jenniffer Alejoiller Leukemia Paternal Grandmother [...] drink = 0.6 oz pur e alcohol) [facility] Utilities Answer Date Recorded In the past 12 months has e [employer], gas, oil, or water [employer] threatened to shut off services in your home? No 02/02/2024 Humiliation, Afraid, Rape, and Kick questionnair e [...] 08/15/2022 How often do you attend chur ch or mandaen services? More than 4 times per year 08/15/2022 Do you belong to any clubs o r organizations such as adventist groups, unions, fraternal or athletic groups, or [...] Answer Date Recorded PHQ-2 Score 2 08/19/2022 [facility] - Occupational Stress Questionnaire Answer Date Recorded [...] exercise (like a brisk walk)? 4 days 02/02/2024 On average, how many minutes do you engage in exercise at this level? 40 min 02/02/2024 Hunger Vital Sign Answer Date Recorded Within the past 12 months, y ou worried that your food would run out before you got the money to buy more. Never true 02/02/20 24 Within the past 12 months, t he food you bought just didn't last and you didn't have money to get more. Never true 02/02/2024 PRAPARE - Transportation Answer Date Re corded In the past 12 months, has l ack of transportation kept you from medical appointments or from getting medications? No 08/2023 In the past 12 months, has l ack of transportation kept you from meetings, work, or from getting things needed for daily living? No 02/02/2024 Depression Answer Date Recor ded PHQ-9 Total Score (max 27) 5 08/19 Nutrition Answer Date Recorded On average, how many serving s of fruits and vegetables do you eat per day (serving size is equal to 1 cup or approximately the size of a tennis ball)? 0-2 02/02/2024 Dental Answer Date Recorded Dental: Regular Dentist Yes 11/30/19 Employment Answer Date Recorded Employment status Employed and actively working without restrictions 02/02/2024 Housing Stability Answer Date Recorded What is your living situation today? I have a [facility] place to live 02/02/2024 Education Answer Date Recorded What is the highest level of school you have completed or the highest degree you have received? Master's degree (e.g., MA, MS, Anika, MEd, ELECTRIC MOTOR TESTER, SINDY) 08/08/2019 Comments No Sex and Gender Information Value Date Recorded Sex Assigned at Female 03/04/2018 7:21 PM CDT Legal Sex Female 12:39 PM SUPERVISOR PRINTING SHOP Gender Identity Female 03/04/2018 7:21 PM CDT Sexual Orientation Straight 03/04/2018 7: 21 PM CDT Last Filed Vital Signs Vital Sign Reading Time Taken Comments Blood Pressure 144/86 08/19/2022 8:10 AM SUPERVISOR PRINTING SHOP Pulse 84 08/19/2022 8:10 AM SUPERVISOR PRINTING SHOP Temperature 37 C (98.6 F) 08/14/2019 12:30 PM SUPERVISOR PRINTING SHOP Respiratory Rate 17 08/14/2019 12:30 PM SUPERVISOR PRINTING SHOP Oxygen Saturation 98% 08/14/2019 12:34 PM SUPERVISOR PRINTING SHOP Inhaled Oxygen Concentration - - Weight 69.9 kg (154 lb 1.6 oz) 02/09/2024 9:02 A M CDT Height 152.4 cm (5') 02/09/2024 9:02 AM CDT Body Mass Index 30.1 02/09/2024 9:02 AM CDT Plan of Treatment Health Maintenance Due Date Last Done Comments CT Colonography 1968 Cologuard 1968 FIT 1968 HIV Screening 1968 Hepatitis C Screening 1968 Hepatitis A Vaccines (3 of 3 - Hep A risk 3-dose series) 07/27/2015 02/24/2015, 01/19/2015 Hepatitis B Vaccines (3 of 3 - Hep B Twinrix 3-dose series) 07/27/2015 02/24/2015, 01/19/2015 Cervical/Vaginal Cancer Screening 10/16/2021 10/16/2018, 08/03/2014 (Performed elsewhere), 02/05/2007 Zoster Vaccines (2 of 2) 01/28/2022 12/03/2021 Mammogram 08/27/2022 08/27/2021, 02/01, 02/09/2020, Additional history exists Depression Screening (Annual PHQ-2) 08/04/2023 COVID-19 Vaccine ( season) 2024 06/08/2021, 10/27/2020, 09/28/2020 Influenza Vaccine (#1) 2024 , 04/28/2020, 05/31/2019, Additional history exists Fasting Glucose for Diabetes Screening 12/04/2024 12/04/2021, 08/11/2019 Lipid (Cholesterol) Screening 12/04/2026 12/04/2021, 08/03/2015 (Performed elsewhere) Colonoscopy 05/26/2029 05/26/2019 (Perf ormed elsewhere) Colorectal Cancer Screening 05/26/2029 DTaP,Tdap,and Td Vaccines (9 - Td or Tdap) 06/23/2033 06/23/2023, 05/07/2012, 05/07/2012, Additional history exists IPV Vaccines Aged Out No longer eligi ble based on patient's age to complete this topic Pneumococcal vaccine (0-64 years) Aged Out No longer eligible based on patient's age to complete this topic Medical Devices Implanted Type Area Steel Layout Worker Device Identifier Shelf Expiration Date Model / Serial / Lot Allogenic, Femoral Head - [id number] - [id number] Implanted:Qt y: 1 on 08/12/2019 by Steve Jesus M.D., M.S. at [facility] Bone or Tissue Posterior : Spine Lumbar [facility] 07/08/2021 [id number] / [id number] / [id number] Breast Implant-2009 Implanted: (Quantity not on file) Breast Implant Bilateral : Breast Hardware E.G. Pins/Screws/ Rods- 9 Implanted: (Quantity not on file) Hardware e.g. pins/screws /rods Neck Description:C6-C7 part of fu rodriguez Spn Scrw Exp Sld 6.35 7x45 - Sna - [id number] Implanted:Qt y: 4 on 08/12/2019 by Steve Jesus M.D., M.S. at [facility] Hardware e.g. pins/screws /rods Posterior : Spine Lumbar Depuy Synthes [id number] / NA / NA Spn Scrw Exp Sld 6.35 8x55 - Sna - [id number] Implanted:Qt y: 1 on 08/12/2019 by Steve Jesus M.D., M.S. at [facility] Hardware e.g. pins/screws /rods Posterior : Spine Lumbar Depuy Synthes [id number] / NA / NA Spn Scrw St Exp Sgl Baker 6.35 - Sna - [id number] Implanted:Qt y: 5 on 08/12/2019 by Steve Jesus M.D., M.S. at [facility] Hardware e.g. pins/screws /rods Posterior : Spine Lumbar Depuy Synthes [id number] / NA / NA Spn Noble Exp Pr Ld 6.35x45 - Sna - [id number] Implanted:Qt y: 1 on 08/12/2019 by Steve Jesus M.D., M.S. at [facility] Hardware e.g. pins/screws /rods Posterior : Spine Lumbar Depuy Synthes [id number] / NA / NA Spn Noble Exp Pr Ld 6.35x65 - Sna - [id number] Implanted:Qt y: 1 on 08/12/2019 by Steve Jesus M.D., M.S. at [facility] Hardware e.g. pins/screws /rods Posterior : Spine Lumbar Depuy Synthes [id number] / NA / NA Procedures Procedure Name Priority Date/Time Associated Diagnosis Comments COMPREHENSIVE METABOLIC PANEL, S/P Routine 12/04/2021 7:26 AM CDT Mass Axilla Left Fibromyalgia Pain Back Thoracic Pain Back Screening Osteoporosis Gastroesophageal Reflux Disease Fatigue LIPID PANEL, S Routine 12/04/2021 7:26 AM CDT Mass Axilla Left Fibromyalgia Pain Back Thoracic Pain Back Screening Osteoporosis Gastroesophageal Reflux Disease Fatigue OUTSIDE MG MAMMOGRAM Routine 08/27/2021 9:50 AM SUPERVISOR PRINTING SHOP from Last 3 Months or Most Recently Relevant to Health Maintenance Results * (ABNORMAL) Lipid Panel (12/04/2021 7:26 AM CDT) Pathologist [facility] Cholesterol, Total 269(H) mg/dL 2021 2:21 PM [...] 7:26 AM CDT 12/04/2021 1:13 PM CDT us Mu Kong D.O. LAB BLOOD ADD-ON Final Resul t [facility] [address] [place] [address], [facility] DTL [facility] [address] [place] [address] * (ABNORMAL) Comprehensive Metabolic Panel (12/04/2021 7:26 AM CDT) Pathologist [facility] Potassium, S 4.5 3.6 - 5.2 mmol/L [...] 7:26 AM CDT 12/04/2021 2:29 PM CDT us Mu Kong D.O. LAB BLOOD ADD-ON Final Resul t Performing Organization Address [facility] Co de Phone Number [facility] [address] [place] [address], [facility] DTL [facility] [address] [place] [address] * DIAGNOSTIC MAMMO, BILAT, W/CAD-Outside Mammogram (08/27/2021 9:50 AM SUPERVISOR PRINTING SHOP) Narrative [facility] - 12/03/2021 10:39 AM CDT This order has been created and auto-finalized to support the import of outside images. If available, original interpretation can be found on the Media Tab in Chart Review, in Document Viewer, or as an image in QREADS. If a re-interpretation or overread is required please follow defined workflow. us Provider Not In System IMG BI PROCEDURES Final R esult Performing Organization Address [facility] de Phone Number [facility] NA from Last 3 Months or Most Recently Relevant to Health Maintenance Insurance [facility] Advance Directives For more information, please contact: [phone] * Full Code (Latest Code Status on File) Date Activated Date Inactivated Comments 08/12/2019 1:44 PM 08/14/2019 3:15 PM Question Answer Comments Full Code: Discussed Care Teams Curtain Mender Relationship Specialty Start Date End Date Elsewhere, Pcp PCP - General Internal Medicine 08/16/22
--- OUTSIDE RECORDS SUMMARY | 2024-07-02 15:18 | XMS_ITS | Encounter Summary ---
Author Organization [facility] Address [address], [place] [address] Care Team Providers Care Carbide Grinder Name Role Phone Britney Jarrett MD Primary Care Provider [phone] Encounter Details Date Type Department Care Team [...] st Contact Info) Description 08/24/2024 4:00 PM JEWELRY REPAIRER Appointment TMD at [facility] [address] [place] [address] Aracelis Siddiqui, DDS, MS [address] [place] [address] documented as of this encounter Visit Diagnoses Not on filedocumented in this encounter Additional Health Concerns Infection Onset Date Last Indicated Resolved Time R/O COVID19 03/08/2020 03/08/2020 03/11/2020 1:28 AM CDT documented as of this encounter Care Teams Carbide Grinder Relationship Specialty Start Date End Date Britney Jarrett MD [address] [place] [address] PCP - General 04/04/16 documented as of this encounter
--- OUTSIDE RECORDS SUMMARY | 2024-07-02 15:18 | XMS_ITS ---
Author Organization [facility] Address [address] [place] [address] Care Team Providers Care Cylinder Worker Name Role Phone Unavailable Unavailable Unavailable Surgery Details Not on file Complications Check Surgery Details section. Procedure Estimated Blood Loss Check Surgery Details section. Procedure Findings Check Surgery Details section. Procedure Specimens Taken Check Surgery Details section.
--- OUTSIDE RECORDS SUMMARY | 2024-07-02 15:18 | XMS_ITS | Referral Summary ---
Author Organization [facility] Address [address] [place] [address] Care Team Providers Care Dairy Bar Manager Name Role Phone Elsewhere, Pcp Primary Care Provider Unavailabl e Source Comments Patient records contain information from all sites at [facility]. For routine questions regarding patient records, call [phone] during business hours, M-F 8:00 AM - 5:00 PM Central Time. Record requests for emergency care only can be directed to [phone] at any time.[facility] Allergies Active Allergy Reactions Criticality Noted Date [...] (04/21/2019): Added automatically from request for surgery [id number] Stenosis Spinal 04/21/2019 Overview (04/21/2019): Added automatically from request for surgery [id number] Immunizations Name Administration Dates Next Due DT, [...] drink = 0.6 oz pur e alcohol) [facility] Utilities Answer Date Recorded In the past 12 months has th e electric, gas, oil, or water company threatened to shut off services in your [...] often do you attend chur ch or protestant services? More than 4 times per year 08/15/2022 Do you belong to any clubs o r organizations such as anabaptism groups, unions, fraternal or [...] Answer Date Recorded PHQ-2 Score 2 08/19/2022 [facility] - Occupational Stress Questionnaire Answer Date Recorded [...] Date Recorded Dental: Regular Dentist Yes 11/30/19 22 Employment Answer Date Recorded Employment status Employed and actively working without restrictions 02/02/2024 Housing Stability Answer Date Recorded What is your living situation today? [facility] live 02/02/2024 Education Answer Date Recorded What is the highest level of school you have completed or the highest degree you have received? Master's degree (e.g., MA, MS, Anika, MEd, SUPERVISOR NUTRITIONAL YEAST, SINDY) 08/08/2019 Comments No Sex and Gender Information Value Date Recorded Sex Assigned at Female 03/04/2018 7:21 PM CDT Legal Sex Female 12:39 PM BUILD AND DEPLOYMENT ENGINEER Gender Identity Female 03/04/2018 7:21 PM CDT Sexual Orientation Straight 03/04/2018 7: 21 PM CDT Last Filed Vital Signs Vital Sign Reading Time Taken Comments Blood Pressure 144/86 08/19/2022 8:10 AM BUILD AND DEPLOYMENT ENGINEER Pulse 84 08/19/2022 8:10 AM BUILD AND DEPLOYMENT ENGINEER Temperature 37 C (98.6 F) 08/14/2019 12:30 PM BUILD AND DEPLOYMENT ENGINEER Respiratory Rate 17 08/14/2019 12:30 PM BUILD AND DEPLOYMENT ENGINEER Oxygen Saturation 98% 08/14/2019 12:34 PM BUILD AND DEPLOYMENT ENGINEER Inhaled Oxygen Concentration - - Weight 69.9 kg (154 lb 1.6 oz) 02/09/2024 9:02 A M CDT Height 152.4 cm (5') 02/09/2024 9:02 AM CDT Body Mass Index 30.1 02/09/2024 9:02 AM CDT Plan of Treatment Not on file Medical Devices Implanted Type Area Leather Stitcher Device Identifier Shelf Expiration Date Model / Serial / Lot Allogenic, Femoral Head - [id number] - [id number] Implanted:Qt y: 1 on 08/12/2019 by Steve Jesus M.D., M.S. at [facility] Bone or Tissue Posterior : Spine Lumbar [facility] 07/08/2021 [id number] / [id number] / [id number] Breast Implant-2009 Implanted: (Quantity not on file) Breast Implant Bilateral : Breast Hardware E.G. Pins/Screws/ Rods- 9 Implanted: (Quantity not on file) Hardware e.g. pins/screws /rods Neck Description:C6-C7 part of fu rodriguez Spn Scrw Exp Sld 6.35 7x45 - Sna - [id number] Implanted:Qt y: 4 on 08/12/2019 by Steve Jesus M.D., M.S. at [facility] Hardware e.g. pins/screws /rods Posterior : Spine Lumbar Depuy Synthes [id number] / NA / NA Spn Scrw Exp Sld 6.35 8x55 - Sna - [id number] Implanted:Qt y: 1 on 08/12/2019 by Steve Jesus M.D., M.S. at [facility] Hardware e.g. pins/screws /rods Posterior : Spine Lumbar Depuy Synthes [id number] / NA / NA Spn Scrw St Exp Sgl [place] 6.35 - Sna - [id number] Implanted:Qt y: 5 on 08/12/2019 by Steve Jesus M.D., M.S. at [facility] Hardware e.g. pins/screws /rods Posterior : Spine Lumbar Depuy Synthes 1799-02-000 / NA / NA Spn Noble Exp Pr Ld 6.35x45 - Sna - [id number] 0 Implanted:Qt y: 1 on 08/12/2019 by Steve Jesus M.D., M.S. at [facility] Hardware e.g. pins/screws /rods Posterior : Spine Lumbar Depuy Synthes [id number] / NA / NA Spn Noble Exp Pr Ld 6.35x65 - Sna - [id number] Implanted:Qt y: 1 on 08/12/2019 by Steve Jesus M.D., M.S. at [facility] Hardware e.g. pins/screws /rods Posterior : Spine Lumbar Depuy Synthes [id number] / NA / NA Procedures Procedure Name [...] OUTSIDE MG MAMMOGRAM Routine 08/27/2021 9:50 AM BUILD AND DEPLOYMENT ENGINEER from Last 3 Months or Most Recently Relevant to Health Maintenance Results * (ABNORMAL) Lipid Panel (12/04/2021 7:26 AM CDT) [facility] Cholesterol, Total 269(H) mg/dL 05/03/ 2022 2:21 PM CDT DTL Comment: ----REFERENCE VALUE---- [...] D.O. LAB BLOOD ADD-ON Final Resul t [facility] [address] [place] [address], [facility] [address] [place] [address] * (ABNORMAL) Comprehensive Metabolic Panel (12/04/2021 7:26 AM CDT) Potassium, S 4.5 3.6 - 5.2 mmol/L [...] D.O. LAB BLOOD ADD-ON Final Resul t [facility] [address] [place] [address], [place] DTL [facility] [address] [place] [address] * DIAGNOSTIC MAMMO, BILAT, W/CAD-Outside Mammogram (08/27/2021 9:50 AM BUILD AND DEPLOYMENT ENGINEER) Narrative [facility] - 12/03/2021 10:39 AM CDT [...] System IMG BI PROCEDURES Final R esult [facility] NA from Last 3 Months or Most Recently Relevant to Health Maintenance Insurance [place] [address] Advance Directives For more information, please contact: [phone] * Full Code (Latest Code Status on File) Date Activated Date Inactivated Comments 08/12/2019 1:44 PM 08/14/2019 3:15 PM Question Answer Comments Full Code: Discussed Care Teams Dairy Bar Manager Relationship Specialty Start Date End Date Elsewhere, Pcp PCP - General Internal Medicine 08/16/22
--- OUTSIDE RECORDS SUMMARY | 2024-07-02 15:18 | XMS_ITS | Encounter Summary ---
Author Organization Counts include 234 beds at the [facility] Address [address] [address] Care Team Providers Care Automobile Brake Bonder Name Role Phone Britney Jarrett MD Primary Care Provider [phone] Encounter Details Date Type Department Care Team (Late Contact Info) Description 10/04/2018 Correspondence External to HP ORDER [...] st Contact Info) Description 08/24/2024 4:00 PM COMPUTING TUTOR Appointment TMD at [facility] [place] [address] [facility] [place] [address] Aracelis Siddiqui, E[place]AS, [place] [address] [place] [address] documented as of this encounter Visit Diagnoses Not on filedocumented in this encounter Additional Health Concerns Infection Onset Date Last Indicated Resolved Time R/O COVID19 03/08/2020 03/08/2020 03/11/2020 1:28 AM CDT documented as of this encounter Care Teams Automobile Brake Bonder Relationship Specialty Start Date End Date Britney Jarrett MD [address] [place] [address] PCP - General 04/04/16 documented as of this encounter
--- OUTSIDE RECORDS SUMMARY | 2024-07-02 15:18 | XMS_ITS | Encounter Summary ---
Author Organization [facility] Address [address] [address] Care Team Providers Care Donor Center Technician Name Role Phone Britney Jarrett MD Primary Care Provider [phone] Encounter Details Date Type Department Care Team (Latest Contact Info) Description 02/18/1998 Orders Only ZzhaLadi [place] [address] Social History Tobacco Use Types Packs/Day Years Used Date Smoking Tobacco: Never Assessed Sex and Gender Information Value Date Recorded Sex Assigned at Not on file Gender Identity Not on file Sexual Orientation Not on file documented as of this encounter Plan of Treatment Upcoming Encounters Date Type Department Care Team (Late st Contact Info) Description 08/24/2024 4:00 PM NEWS CAMERA PERSON Appointment TMD at [facility] [place] [address] [address] [employer] [facility] [place] [address] Aracelis Siddiqui, DDS, MS [address] [place], [place] [id number] documented as of this encounter Visit Diagnoses Not on filedocumented in this encounter Additional Health Concerns Infection Onset Date Last Indicated Resolved Time R/O COVID19 03/08/2020 03/08/2020 03/11/2020 1:28 AM CDT documented as of this encounter Care Teams Donor Center Technician Relationship Specialty Start Date End Date Britney Jarrett MD [address] [place] [address] PCP - General 04/04/16 documented as of this encounter
--- OUTSIDE RECORDS SUMMARY | 2024-07-02 15:18 | XMS_ITS | Clinical Summary ---
Author Organization [facility] Address [address] [place] [address] Care Team Providers Care Homicide Squad Lieutenant Name Role Phone Britney Jarrett MD Primary Care Provider [phone] Source Comments You are receiving this document as you are listed as the primary care provider,follow-up provider, or the patient has been referred to you for consultation.This is in compliance with the Medicare and[facility] EHR Incentive Program,which states Providers who transition their patient to another setting of careor provider of care or refers their patient to another provider of care shouldprovide summary care record for each transition of care or referral. [facility] Allergies Active Allergy Reactions Criticality Noted Date Comments Kuwaiti Cockroach Headache 10/01/2023 Mixed Ragweed Headache 10/01/2023 [...] 03/27/2020 Status post lumbar spinal fusion 03/27/2020 Overview (03/27/2020): L3-4 and L5-S1 Calcific tendinitis of left shoulder 03/17/2017 Calcific tendonitis 08/26/2016 Overview (03/26/2017): Calcific tendonitis, right shoulder Discoid meniscus of knee 08/24/2016 Chondrocalcinosis 08/24/2016 Overview (03/26/2017): Chondrocalcinosis, left knee H/O cervical spine surgery 02/23/2014 Medial epicondylitis of elbow 02/11/2014 Unspecified disorder of mens truation and other abnormal bleeding from female genital tract 12/12/2005 Overview (12/12/2005): 12/07-Alesse Encounters Date Type Department Care Team Description 05/04/2024 Telephone TMD at [facility] [address] [place] [address] Yolis Reynolds, DELMAR Other (05/04/24 LM asking that patient keep her appointment for 05/05 @ 4:00> would like to see her F/U even though she is junior well. If she would like to reschedule for another date I asked that she contact the office. Requested that she contact office to let us know what she would like to do. ) from Last 3 Months Immunizations Name Administration [...] 80 03/22/2019 9:27 AM CDT Temperature 36.8 C (98.2 F) 07/09/2020 10:24 AM PERMIT COORDINATOR Respiratory Rate 18 03/22/2019 9:27 AM CDT Oxygen Saturation 97% 03/22/2019 9:27 AM CDT Inhaled Oxygen Concentration - - Weight 63.5 kg (140 lb) 03/27/2020 12:03 PM CDT Height 152.4 cm (5') 03/27/2020 12:03 PM CDT Body Mass Index 27.34 03/27/2020 12:03 PM CDT Plan of Treatment Upcoming Encounters Date Type Department Care Team (Late st Contact Info) Description 08/24/2024 4:00 PM PERMIT COORDINATOR Appointment TMD at [facility] [address] [address] [facility] [place] [address] Aracelis Siddiqui, DDS, MS [address] [place], [place] [id number] Health Maintenance Due Date Last Done Comments [...] Additional history exists COVID-19 Vaccine ( season) 2024 10/27/2020, 09/28/2020 Influenza (#1) 2024 04/28/2020, 05/05, 05/05/2018, Additional history exists HepA Aged Out 02/24/2015, 01/19/2015 No lo nger eligible based on patient's age to complete this topic Hib Aged Out No longer eligi ble based on patient's age to complete this topic IPV (Polio) Aged Out No longer eligi ble based on patient's age to complete this topic Infant RSV Aged Out No longer eligi ble based on patient's age to complete this topic MCV4 Aged Out No longer eligi ble based on patient's age to complete this topic Pneumococcal Aged Out No longer eligi ble based on patient's age to complete this topic Medical Devices Implanted Type Area Naval Surface Fire Support Planner Device Identifier Shelf Expiration Date Model / Serial / Lot Scr Biotendesis [facility] [id number] Implanted:Qty: 1 on 10/02/2017 by Terrell Mccarthy MD at [facility] Right: SHOULDER [employer] 05/03/2019 [id number] / 0 / [id number] Procedures Procedure Name Priority Date/Time Associated Diagnosis Comments PAP TEST, ROUTINE Routine 02/05/2007 2:4 0 PM CDT Screening for Malignant Neoplasm of the Cervix LIPID PANEL, FAST > 12 HOUR Routine 02/02/2007 8:24 AM CDT Screening for Lipoid Disorders MAMMOGRAM, BILATERAL DIAGNOSTI 10/25/1997 12:00 AM PERMIT COORDINATOR Lump Or Mass In Breast Family Hx-Breast Malig from Last 3 Months or Most Recently Relevant to Health Maintenance Results * PAP TEST, ROUTINE [[id number]] (02/05/2007 2:40 PM CDT) Cytology, Pap (NOTE) Industrial Editor Cytology Report Patient Name: RAHAT THOMASON Taken: 02/05/2007 Received: 02/06/2007 Reported: 02/16/2007 Physician(s): LUIS SMALLS ([id number]) Source of Specimen Liquid routine Pap, cervical/endocervi roberto: Specimen Adequacy Satisfactory for evaluation. Endocervical component present. Final Cytologic Interpretation/Res ult NEGATIVE FOR INTRAEPITHELIAL LESION OR MALIGNANCY (NILM) crw2/02/16/2007 Electronically Signed Out By NIMA Frausto (ASCP) NIMA Frausto (ASCP) Pap Smear History Date of Last Menstrual Period: 01/18/07 Contraceptive History: Not Stated/Unknown Other Clinical Conditions: LAST PAP: Normal HPV reflex testing requested with interpretation of [facility] 02/05/2007 2:40 PM CDT 02/06/2007 6:18 AM CDT Luis Smalls APRN, CNP LAB_1 Performing Organization Address [facility] de Phone Number [facility] [address] [place] [address] [phone] * CHOLESTEROL LIPID PANEL FAST >12HR (02/02/2007 8:24 AM CDT) Cholesterol 154 <200 mg/dl [facility] Triglyceride 70 <200 mg/dl [facility] HDL 62 >35 mg/dl [facility] LDL, Calc. 78 mg/dl [facility] Hours Fasting 12 hours [facility] 02/02/2007 8:24 AM CDT 02/02/2007 8:25 AM CDT Luis Smalls APRN, CNP LAB_1 Performing Organization Address [facility] de Phone Number [facility] [address] [place] [phone] * MAMMOGRAM, BILATERAL DIAGNOSTIC (10/25/1997 12:00 AM PERMIT COORDINATOR) Anatomical Region Laterality Modality Breast Other 10/25/1997 [...] 4:09 PM 03/07/2005 4:09 PM Care Teams Homicide Squad Lieutenant Relationship Specialty Start Date End Date Britney Jarrett MD [address] [place] [address] PCP - General 04/04/16
--- OUTSIDE RECORDS SUMMARY | 2024-07-02 15:18 | XMS_ITS | Encounter Summary ---
Author Organization [facility] Address [address] [address] Care Team Providers Care Weatherization And Housing Inspector Name Role Phone Britney Jarrett MD Primary Care Provider [phone] Encounter Details Date Type Department Care Team (Latest Contact Info) Description 06/04/1995 Orders Only Harris Jarrett MD [address] [place] [address] Social History Tobacco Use Types Packs/Day Years Used Date Smoking Tobacco: Never Assessed Sex and Gender Information Value Date Recorded Sex Assigned at Not on file Gender Identity Not on file Sexual Orientation Not on file documented as of this encounter Plan of Treatment Upcoming Encounters Date Type Department Care Team (Late st Contact Info) Description 08/24/2024 4:00 PM MICROBIOLOGY PROFESSOR Appointment TMD at [facility] [place] [address] [place] [address] Aracelis Siddiqui, [place], [place] [address] [place] [address] documented as of this encounter Visit Diagnoses Not on filedocumented in this encounter Additional Health Concerns Infection Onset Date Last Indicated Resolved Time R/O COVID19 03/08/2020 03/08/2020 03/11/2020 1:28 AM CDT documented as of this encounter Care Teams Weatherization And Housing Inspector Relationship Specialty Start Date End Date Britney Jarrett MD [address] [place] [address] PCP - General 04/04/16 documented as of this encounter
--- OUTSIDE RECORDS SUMMARY | 2024-07-02 15:18 | XMS_ITS | Encounter Summary ---
Author Organization [facility] Address [address] [address] Care Team Providers Care Stull Hewer Name Role Phone Britney Jarrett MD Primary Care Provider [phone] Encounter Details Date Type Department Care Team (Latest Contact Info) Description 12/18/1995 Orders Only Bandar Santamaria MD [address] [place] [address] Social History Tobacco Use Types Packs/Day Years Used Date Smoking Tobacco: Never Assessed Sex and Gender Information Value Date Recorded Sex Assigned at Not on file Gender Identity Not on file Sexual Orientation Not on file documented as of this encounter Plan of Treatment Upcoming Encounters Date Type Department Care Team (Late st Contact Info) Description 08/24/2024 4:00 PM COMMUNICATIONS CONSULTANT Appointment TMD at [facility] [address] [place], [place] [id number] Aracelis Siddiqui, DDS, MS [address] [place], [place] [id number] documented as of this encounter Visit Diagnoses Not on filedocumented in this encounter Additional Health Concerns Infection Onset Date Last Indicated Resolved Time R/O COVID19 03/08/2020 03/08/2020 03/11/2020 1:28 AM CDT documented as of this encounter Care Teams Stull Hewer Relationship Specialty Start Date End Date Britney Jarrett MD [address] [place] [address] PCP - General 04/04/16 documented as of this encounter
--- OUTSIDE RECORDS SUMMARY | 2024-07-02 15:18 | XMS_ITS | Encounter Summary ---
Author Organization [facility] Address [address] [address] Care Team Providers Care Hangar Attendant Name Role Phone Britney Jarrett MD Primary Care Provider [phone] Encounter Details Date Type Department Care Team [...] st Contact Info) Description 08/24/2024 4:00 PM TRAILER STEERER Appointment TMD at [facility] [address] [place] [address] Aracelis Siddiqui, DDS, MS [address] [place] [address] documented as of this encounter Visit Diagnoses Not on filedocumented in this encounter Additional Health Concerns Infection Onset Date Last Indicated Resolved Time R/O COVID19 03/08/2020 03/08/2020 03/11/2020 1:28 AM CDT documented as of this encounter Care Teams Hangar Attendant Relationship Specialty Start Date End Date Britney Jarrett MD [address] [place] [address] PCP - General 04/04/16 documented as of this encounter
[2024-07-06 23:12] LABS: HPV Source Endocervical; HPV, High Risk by TMA Not Detected
== END 2024-07-02 15:07 | disposition home or self-care (01) ==
PROVIDERS: PCP Family Medicine; Visit Provider Family Medicine
DX: N95.2 Postmenopausal atrophic vaginitis (principal); R68.82 Decreased libido; Z13.6 Encounter for screening for cardiovascular disorders; Z13.1 Encounter for screening for diabetes mellitus; Z12.4 Encounter for screening for malignant neoplasm of cervix
CPT/HCPCS: 80053; 80061; 84165; 85045; 87624; 87625; 88141; 88142

== ENCOUNTER 2024-12-09 07:55 | Outpatient (CLI) | payer BC, SELFPAY | END 2024-12-09 07:56 | disposition home or self-care (01) | PROVIDERS: PCP Family Medicine; Visit Provider Family Medicine | DX: R76.8 Other specified abnormal immunological findings in serum (principal); E78.5 Hyperlipidemia, unspecified; R82.90 Unspecified abnormal findings in urine | CPT/HCPCS: 80061; 82043; 82232; 82570; 85520; 85525; 85598; 85610; 85613; 85670; 85730; 86038; 86140; 86147; 86225; 87086 ==

== ENCOUNTER 2025-03-16 14:25 | Outpatient (CLI) | payer BC, SELFPAY ==
--- NOTE | 2025-03-16 14:40 | CRLHL7_ITS ---
For Patients: As a result of the Century Cures Act, medical imaging exams and procedure reports are released immediately into your electronic medical record. You may view this report before your referring provider. If you have questions, please contact your health care provider. INDICATION: BILATERAL SCREENING MAMMOGRAM W/IMPLANTS, ASYMPTOMATIC 54 Y/O FEMALE COMPARISON: 02/02/2024, , 02/13/2021 TECHNIQUE: Digital mammogram in CC and MLO projections including computer-aided detection (CAD) and tomosynthesis. BREAST COMPOSITION: There are scattered areas of fibroglandular density. FINDINGS: No suspicious findings. ASSESSMENT: BI-RADS 2 Benign RECOMMENDATION: Annual screening mammogram. A lay language report of this examination will be provided to the patient. Dictated by: Noe Baxter MD @ 03/17/2025 08:40:53 (Electronically Signed)
== END 2025-03-16 14:26 | disposition home or self-care (01) ==
LOC: MAMMO 14:25
PROVIDERS: PCP Family Medicine; Visit Provider Family Medicine
DX: Z12.31 Encounter for screening mammogram for malignant neoplasm of breast (principal); Z98.82 Breast implant status
CPT/HCPCS: 77063; 77067

== ENCOUNTER 2025-04-24 17:39 | Emergency (ER) | payer BC, SELFPAY ==
--- OUTSIDE RECORDS SUMMARY | 2021-12-14 05:12 | XMS_ITS | Continuity of Care Document ---
Author Organization [facility] Address [address] [address] [place] [address] Phone Care Team Providers Care Physician Office Assistant Name Role Phone Richard Mullins MD Unavailable Unavailable Allergies, Adverse Reactions, Alerts Substance Reaction Status Criticality grass pollen Active No Information Medications Medication Instructions Dosage Effective Dates (start - stop) Status Comments omeprazole 40 mg capsule,delayed release take 1 capsule by oral route 2 times every day before a meal 40 MG - Active cyclobenzaprine 10 mg tablet take 1 tablet by oral route 3 times every day 10 MG - Active Vitamin D3 10 mcg (400 unit) capsule - Active Calcium 500 500 mg calcium (1,250 mg) chewable tablet take 1 tablet by oral route every day 1 tablet - Active PROBIOTIC (unknown strength) take 1 tablet by oral route every day Not Available - Active Procedures Procedure Date Established Level 4 Ugi Endo; W/bx 1/mx Level Iv-surg Path Gross/micro Office Cons New/estab Mod Advance Directives Directive Yes / No Effective Date File Name No Information Encounters Encounter Description Practice Location Reason(s) For Visit Diagnoses Date Provider Providers Copied on Encounter [facility], [address] [address], [place], [id number], [place] tel:[phone] [facility] No Information 2 Harpreet Ramos. [address], [place], [place], [id number] , [place]. tel: [phone] [facility], [address] [address], [place], [id number], [place] tel:[phone] [facility] No Information 2 Harpreet Ramos. [address], [place], [place], [address] , [place]. tel: [phone] Established Level 4 [facility], [address] [address], [place], [address], [place] tel:[phone] [facility] GI Symptoms or Concerns (chief complaint) Oropharyngeal dysphagia 2 Harpreet Ramos. [address], [place], [place], [address] , [place]. tel: [phone] Referring Provider: Referral Self, USE FOR SELF REFERRALS. [facility], [address] [address], [place], [id number], [place] tel:[phone] [facility] No Information 2 Min MD Mcqueen. [address], [place], [address] , [place]. tel: [phone] [facility], [address] [address], [place], [place], [address], [place] tel:[phone] [facility] Gastroesophageal reflux disease without esophagitis 2 Min MD Mcqueen. [address], [address], [place], [place], [address] , [place]. tel: [phone] [facility], [address] [address], [place], [address], [place] tel:[phone] [facility] GI Symptoms or Concerns (chief complaint) Chronic GERDEsophageal dysphagiaDysphagi a, unspecifiedHeartb urnDysphagia, unspecified 2 Sera Kraft. [address], [address], [place], [place], [address] , [place]. tel:[phone] Referring Provider: Referral Self, USE FOR SELF REFERRALS. Office Cons New/estab Mod [facility], [address] [address], [place], [id number], [place] tel:[phone] [facility] GI Symptoms or Concerns (chief complaint) Gastroesophageal reflux disease, unspecified whether esophagitis presentDysphagia, unspecified typeEpigastric abdominal painHoarseness of voice 2 Min MD Mcqueen. [address] [facility], [address], [place], [address] , [place]. tel:[phone] Referring Provider: Matt Erazo MD, [address] [place], [address]. tel:[phone] [facility], [address] [address], [place], [id number], [place] tel:[phone] [facility] No Information 2 Parish Carranza. [address], [place], [id number] , [place]. [phone] Family History Family Member Type Diagnosis Age At Onset Father Problem (finding) Irritable bowel syndrom e Sister Problem (finding) malignant neoplasm of c ervix uteri Brother Problem (finding) malignant neoplasm of p harynx Mother Problem (finding) malignant neop lasm of breast in first degree relative Brother Problem (finding) cancer of the esophagus Immunizations Vaccine Date Status Comments SARS-COV-2 (COVID-19) vaccin e, mRNA, spike protein, LNP, preservative free, 30 mcg/0.3mL dose administered Note: [facility] bi-direct ional interface ; Source: Other Registry SARS-COV-2 (COVID-19) vaccin e, mRNA, spike protein, LNP, preservative free, 100 mcg/0.5mL dose or 50 mcg/0.25mL dose administered Note: [facility] bi -directional interface ; Source: Other Registry SARS-COV-2 (COVID-19) vaccin e, mRNA, spike protein, LNP, preservative free, 100 mcg or 50 mcg dose administered Note: [facility] bi-direct ional interface ; Source: Other Registry SARS-COV-2 (COVID-19) vaccin e, mRNA, spike protein, LNP, preservative free, 100 mcg/0.5mL dose or 50 mcg/0.25mL dose administered Note: [facility] bi -directional interface ; Source: Other Registry SARS-COV-2 (COVID-19) vaccin e, mRNA, spike protein, LNP, preservative free, 100 mcg or 50 mcg dose administered Note: [facility] bi-direct ional interface ; Source: Other Registry Influenza administered Note: [facility] bi-d irectional interface ; Source: Other Registry Afluria Qd administered Note: [facility] bi-directional interface ; Source: Other Registry Afluria Qd administered Note: [facility] bi-directional interface ; Source: Other Registry Twinrix administered Note: [facility] bi-d irectional interface ; Source: Other Registry typhoid Vi capsular polysaccharide vaccine administered Note: [facility] bi-dir ectional interface ; Source: Other Registry Twinrix administered Note: [facility] bi-d irectional interface ; Source: Other Registry Afluria Qd administered Note: [facility] bi-directional interface ; Source: Other Registry Influenza, seasonal, injectable administe red Note: [facility] bi- directional interface ; Source: Other Registry tetanus toxoid, reduced diphtheria toxoid, and acellular pertussis vaccine, adsorbed administered Note: [facility] b i-directional interface ; Source: Other Registry Influenza, seasonal, injectable administe red Note: [facility] bi- directional interface ; Source: Other Registry Influenza, seasonal, injectable administe red Note: [facility] bi- directional interface ; Source: Other Registry Influenza, seasonal, injectable administe red Note: [facility] bi- directional interface ; Source: Other Registry Influenza, seasonal, injectable administe red Note: [facility] bi- directional interface ; Source: Other Registry Influenza, seasonal, injectable administe red Note: [facility] bi- directional interface ; Source: Other Registry Influenza, seasonal, injectable administe red Note: [facility] bi- directional interface ; Source: Other Registry Influenza, seasonal, injectable administe red Note: [facility] bi- directional interface ; Source: Other Registry Influenza, seasonal, injectable administe red Note: [facility] bi- directional interface ; Source: Other Registry influenza virus vaccine, unspecified formulation administered Note: [facility] bi-di rectional interface ; Source: Other Registry influenza virus vaccine, unspecified formulation administered Note: [facility] bi-di rectional interface ; Source: Other Registry influenza virus vaccine, unspecified formulation administered Note: [facility] bi-di rectional interface ; Source: Other Registry Payers Payer name Insurance type Covered constitution party ID Authoriza ticecil(s) Blue Cross Of [facility] [id number] Social History Type Description Quantity Date Captured Comments Alcohol Use Details Unknown Caffeine Use Details Unknown Tobacco Use Status No Information Smoking Status No Information Sex Female Chief Complaint And Reason For Visit No Information Reason For Referral Reason For Referral No Information Plan Of Treatment Date Type Action Status Referral Ordered: Video And Clinical Swallow With Speech Pathologist, Treatment As Indicated Appointment date/timeframe: 12/07/2021 ordered Referral Ordered: EGD With Dilation Appointment date/timeframe: 10/12/2021 ordered History Of Present Illness Encounter Date Complaint History Of Prese nt Illness GI Symptoms or Concerns Josie may is seen today in followup. By history, she is a 51-year-old woman with a history of cervical fusion and 2 lumbar fusions, who is seen because of oropharyngeal dysphagia. She states that over the last 3-4 months, she has had difficulty swallowing, typically it occurs upon initiation. She is able to chew her food well, but the initial gulp becomes problematic for her. She does not describe difficulty with swallowing during the esophageal phase. Liquids and solids go down well once the initial swallow has been performed.With these symptoms, she was seen by ENT as she has had prior turbinate surgery. She was told that this possibly could be reflux and she was seen at our office for endoscopy. The study was negative, but a barium swallow did show that she did have reflux of barium. She has been on omeprazole, which has not helped her.I note that the swallowing difficulty does not occur with liquids. It only occurs with solids.None of this has been associa GI Symptoms or Concerns GI Symptoms or Concerns Josie is a very pleasant 51-year-old female who is here for GI consultation at the request of Dr. Cardenas regarding concerns for reflux disease.She has a history of cervical arthritis and is status post cervical fusion approximately 12 years ago.Since her surgery, she has been having intermittent episodes of dysphagia to solid food. The food seems to get stuck at the lower neck area. Over the years, this has progressed, and in addition, she has also been experiencing voice hoarseness. She denies any chest discomfort, but she does have occasional epigastric abdominal pain as well. She has had a repeat CT scan of her cervical spine, which showed residual arthritis, she has had followup with her surgeon and there is no plan to pursue further intervention at this time. She also had an esophagram, which showed normal esophagus and motility, and there was no evidence of stricture or mass, however, there was radiological evidence of moderate spontaneous reflux through the Functional Status Date Functional Assessmen t No Information Instructions Date Instruction Additional Infor rain Our plan is:1) start taking OTC pepcid 20 mg twice a day2) schedule an upper endoscopy with possible dilation 3) follow anti reflux precautions as we discussed, review the brochure4) depending on how you respond to pepcid, or what is seen on the upper endoscopy, a stronger acid damaris medication in the form of proton pump inhibitor (prilosec, protonix, etc) can be considered5) followup with [facility] as needed Related to Gastroesophageal reflux disease, unspecified whether esophagitis present Gastroesophageal Reflux Disease Related to Dysphagia, unspecified type Gastroesophageal Reflux Disease Related to Dysphagia, unspecified type Gastroesophageal Reflux Disease Related to Dysphagia, unspecified type Assessments Type Assessment Date No Information Patient Care Teams Name Effective Dates (start - stop) Status Members No Information
--- OUTSIDE RECORDS SUMMARY | 2021-12-14 05:12 | XMS_ITS | Continuity of Care Document ---
Author Organization [facility] Address [address] [address] [place] [address] Phone Care Team Providers Care Adjuster Arbitrator Name Role Phone Richard Mullins MD Unavailable [...] Encounter [facility], [address] [address], [place], [id number], [place] tel:[phone] [facility] No Information 2 Harpreet Ramos. [address] [facility], [address], [place], [place], [address] , [place]. tel: [phone] [facility], [address] [address], [place], [place], [address], [place] tel:[phone] [facility] No Information 2 Harpreet Ramos. [address] [facility] [address], [address], [place], [place], [address] , [place]. tel: [phone] Established Level 4 [facility], [address] [address], [place], [address], [place] tel:[phone] [facility] GI Symptoms or Concerns (chief complaint) Oropharyngeal dysphagia 2 Harpreet Ramos. [address] [facility] [address], [address], [place], [place], [address] , [place]. tel: [phone] Referring Provider: Referral Self, USE FOR SELF REFERRALS. [facility], [address] [address], [place], [address], [place] tel:[phone] [facility] No Information 2 Min MD Mcqueen. [address] [facility] [address], [address], [place], [place], [address] , [place]. tel: [phone] [facility], [address] [address], [place], [address], [place] tel:[phone] [facility] Gastroesophageal reflux disease without esophagitis 2 Min MD Mcqueen. [address] [facility] [address], [address], [place], [place], [address] , [place]. tel: [phone] [facility], [address] [address], [place], [address], [place] tel:[phone] [facility] GI Symptoms or Concerns (chief complaint) Chronic GERDEsophageal dysphagiaDysphagi a, unspecifiedHeartb urnDysphagia, unspecified 2 Sera Kraft. [address] [facility] [address], [address], [place], [place], [address] , [place]. tel:[phone] Referring Provider: Referral Self, USE FOR SELF REFERRALS. Office Cons New/estab Mod [facility], [address] [address], [place], [address], [place] tel:[phone] [facility] GI Symptoms or Concerns (chief complaint) Gastroesophageal reflux disease, unspecified whether esophagitis presentDysphagia, unspecified typeEpigastric abdominal painHoarseness of voice 2 Min MD Mcqueen. [address] [facility], [address], [place], [address] , [place]. tel:[phone] Referring Provider: Matt Erazo MD, [address] [place], [address]. tel:[phone] [facility], [address] [address], [place], [address], [place] tel:[phone] [facility] No Information 2 Parish Carranza. [address] [facility], [address], [place], [id number] , [place]. [phone] Family History Family Member Type Diagnosis Age [...] party ID Authoriza ticecil(s) [employer] Of [facility] [id number] Social History Type Description Quantity Date Captured [...]
[2025-04-24] VITALS (14 sets, daily range): BP systolic 98–135; BP diastolic 59–82; PULSE 97–120; RESP 16–20; TEMP 37.2–38.6; O2SAT 95–99
--- OUTSIDE RECORDS SUMMARY | 2025-04-24 17:42 | XMS_ITS | Encounter Summary ---
Author Organization [facility] Address [address], [place] [address] Care Team Providers Care [facility] Name Role Phone Britney Jarrett MD Primary Care Provider [phone] Encounter Details Date Type Department Care Team (Late st Contact Info) Description 10/04/2018 Correspondence External to [facility] ORDER Social History Tobacco Use Types Packs/Day Years Used Date Smoking Tobacco: Never Smokeless Tobacco: Never Alcohol Use Standard Drinks/Week Comments Yes 0 (1 standard drink = 0.6 oz pur e alcohol) rare Comments No Sex and Gender Information Value Date Recorded Sex Assigned at Not on file Legal Sex Female 4:16 AM CDT Gender Identity Not on file Sexual Orientation Not on file 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
--- OUTSIDE RECORDS SUMMARY | 2025-04-24 17:42 | XMS_ITS | Clinical Summary ---
Author Organization [facility] Address [address] [place] [address] Care Team Providers Care Beauty Sales Consultant Name Role Phone Britney Jarrett MD Primary Care Provider [phone] Source Comments You are receiving this document as you are listed as the primary care provider,follow-up provider, or the patient has been referred to you for consultation.This is in compliance with the Medicare and[facility]cent[facility],which states Providers who transition their patient to another setting of careor provider of care or refers their patient to another provider of care shouldprovide summary care record for each transition of care or referral. [employer] Allergies Active Allergy Reactions Criticality Noted Date Comments Macanese Cockroach Headache 10/01/2023 Mixed Ragweed Headache 10/01/2023 Medications Probiotic Product (SUPER PROBIOTIC OR) Active cyclobenzaprine (FLEXERIL) 10 MG tablet Take 10 [...] from female genital tract 12/12/2005 Overview (12/12/2005): Ale Immunizations Immunization Administration Dates Next Due DT Ped 07/22/1994 [...] Answer Date Recorded PHQ-2 Score 0 03/08/2020 Comments No Sex and Gender Information Value Date Recorded Sex Assigned at Not on file Legal Sex Female 4:16 AM CDT Gender Identity Not on file Sexual Orientation Not on file 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 Last Filed Vital Signs Vital Sign Reading Time Taken Comments Blood Pressure 123/72 03/22/2019 9:27 AM CDT Pulse 80 03/22/2019 9:27 AM CDT Temperature 36.8 C (98.2 F) 07/09/2020 10:24 AM WOUND CARE NURSE Respiratory Rate 18 03/22/2019 9:27 AM CDT [...] 1968 HIV Screening (Preventive Services) 1984 HepB Vaccine (1) 1987 Mammogram 10/25/1998 10/25/1997 Cervical Cancer Screening Due 02/06/2007 02/05/2007, 04/02/2004, 05/17/2002, Additional history exists Adult Preventive Visit 02/06/2008 7, 04/05/2005, 04/02/2004, Additional history exists Cholesterol 2013 02/02/2007, 03/06, 08/08/1998 Pneumococcal Vaccine 50+ Yrs (1 of 1 - PCV) 2018 Zoster/Shingles Vaccine (1 of 2) 2018 DTaP/Tdap/Td Vaccine (6 - Tdap) 05/07/2022 05/07/2012, 02/23/2009, [address]27/1999, Additional history exists COVID-19 Vaccine (3 - season) 2025 10/27/2020, 09/28/2020 Influenza Vaccine (#1) 2025 0, 05/31/2019, 05/05/2018, Additional history exists HepA Vaccine Aged Out 02/24/2015, 01/19/2015 No lo nger eligible based on patient's age to complete this topic Hib Vaccine Aged Out No longer eligi ble based on patient's age to complete this topic IPV (Polio) Vaccine Aged Out No longe r eligible based on patient's age to complete this topic MCV4 Vaccine Aged Out No longer eligi ble based on patient's age to complete this topic Meningococcal B Vaccine Aged Out No l onger eligible based on patient's age to complete this topic Medical Devices Implanted Type Area Correspondence Review Clerk Device Identifier Shelf Expiration Date Model / Serial / Lot Scr Biotendesis Dior - [id number] Implanted:Qty: 1 on 10/02/2017 by eTrrell Mccarthy MD at [facility] Right: SHOULDER [employer] 05/03/2019 [id number] / 0 / [id number] Procedures Procedure Name Priority Date/Time Associated Diagnosis Comments PAP TEST, ROUTINE Routine 02/05/2007 2:4 0 PM CDT Screening for Malignant Neoplasm of the Cervix LIPID PANEL, FAST > 12 HOUR Routine 02/02/2007 8:24 AM CDT Screening for Lipoid Disorders MAMMOGRAM, BILATERAL DIAGNOSTI 10/25/1997 12:00 AM WOUND CARE NURSE Lump Or Mass In Breast Family Hx-Breast Malig from Last 3 Months or Most Recently Relevant to Health Maintenance Results * PAP TEST, ROUTINE [[id number]] (02/05/2007 2:40 PM CDT) Cytology, Pap (NOTE) Auto Service Station Attendant Cytology Report Patient Name: JOSIE THOMASON Taken: 02/05/2007 Received: 02/06/2007 Reported: 02/16/2007 Physician(s): MADISYN SMALLS ([id number]) Source of Specimen Liquid routine Pap, cervical/endocervi [...] reflex testing requested with interpretation of [facility] 02/05/2007 2:40 PM CDT 02/06/2007 6:18 AM CDT us Madisyn Smalls BOOKIE, FRAMING MACHINE TENDER LAB_1 Fay l Result Performing Organization Address City/State/[facility] de Phone Number [facility] [address] [phone] * CHOLESTEROL LIPID PANEL FAST >12HR (02/02/2007 8:24 AM CDT) Cholesterol 154 <200 mg/dl [facility] Triglyceride 70 <200 mg/dl [facility] HDL 62 >35 mg/dl [facility] LDL, Calc. 78 mg/dl [facility] Hours Fasting 12 hours [facility] 02/02/2007 8:24 AM CDT 02/02/2007 8:25 AM CDT us Madisyn H Serina FIELDS, FRAMING MACHINE TENDER LAB_1 Fay l Result Performing Organization Address [facility] de Phone Number [facility] [address] [phone] * MAMMOGRAM, BILATERAL DIAGNOSTIC (10/25/1997 12:00 AM WOUND CARE NURSE) Anatomical Region Laterality Modality Breast Other 10/25/1997 [...] Madelin Huber MD Madelin Becerril MD RAD_BI Final Result from Last 3 Months or Most Recently Relevant to Health Maintenance Insurance [facility] [employer] Advance Directives * No Code Status (Latest Code Status on File) Date Activated Date Inactivated Comments 03/07/2005 4:09 PM 03/07/2005 4:09 PM Care Teams Beauty Sales Consultant Relationship Specialty Start Date End Date Britney Jarrett MD [address] [place] [address] PCP - General 04/04/16
--- OUTSIDE RECORDS SUMMARY | 2025-04-24 17:42 | XMS_ITS | Encounter Summary ---
Author Organization [facility] Address [address] [address] Care Team Providers Care Skid Road Worker Name Role Phone Britney Jarrett MD Primary Care Provider [phone] Encounter Details Date Type Department Care Team (Latest Contact Info) Description 12/18/1995 Orders Only Bandar Santamaria MD [address] [place] [address] Social History Tobacco Use Types Packs/Day Years Used Date Smoking Tobacco: Never Assessed Comments Unknown Sex and Gender Information Value [...] documented as of this encounter Care Teams Skid Road Worker Relationship Specialty Start Date End Date Britney Jarrett MD [address] [place] [address] PCP - General 04/04/16 documented as of this encounter
--- OUTSIDE RECORDS SUMMARY | 2025-04-24 17:42 | XMS_ITS | Encounter Summary ---
Author Organization [facility] Address [address] [address] Care Team Providers Care Art Glass Setter Name Role Phone Britney Jarrett MD Primary Care Provider [phone] Encounter Details Date Type Department Care Team [...] documented as of this encounter Care Teams Art Glass Setter Relationship Specialty Start Date End Date Britney Jarrett MD [address] [place] [address] PCP - General 04/04/16 documented as of this encounter
--- OUTSIDE RECORDS SUMMARY | 2025-04-24 17:42 | XMS_ITS | Patient Health Record ---
Author Organization [facility] Address [facility] [address] [place] [address] Care Team Providers Care Grain Packer Name Role Phone TRINIDAD RODRIGUEZ Unavailable [phone] Reason For Referral No Information Medications Medication SIG (Take, Route, Frequency, Duration) Notes Start Date End Date Status Vitamin D3 25 mcg (1,000 unit) capsule 0 *Reorder from [employer] for eRx and Interaction Alerts* Active Calcium 600 600 MG Tablet Oral 0 Active Acidophilus Probiotic Complex 250 million cell Capsule Oral 0 *Pick strength-form from [employer] for eRX* Active Cyclobenzaprine HCl 10 MG Tablet Add'l Sig. Dispense 30. Oral 29 08/25/2020 Active nhnkujxzo-tdxsxypu-jfcc agen lotion 0 *Reorder from EBIQU[employer]span for eRx and Interaction Alerts* Active Problems Problem Type SNOMED Code ICD Code Onset Dates Problem Status W/U Status Risk Notes Problem Chronic tension-type headache (912276103) Chronic tension-type headache, not intractable (G44.229) 2020 Active confirmed Chronic tension-type headache, not intractable Problem Bilateral otalgia (927200298) Otalgia, bilateral (H92.03) 2020 Active confirmed Otalgia, bilateral Problem Bilateral tinnitus (4800238554488) Tinnitus, bilateral (H93.13) 2020 Active confirmed Tinnitus, bilateral Problem Cervicalgia (38510257) Cervicalgia (M54.2) 2020 Active confirmed Cervicalgia Problem Enthesopathy (12411724) Other enthesopathies, not elsewhere classified (M77.8) 2020 Active confirmed Other enthesopathies, not elsewhere classified Problem Ankyloglossia (73867985) Ankyloglossia (Q38.1) 2020 Active confirmed Ankyloglossia 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 Problem Abnormal findings on diagnostic imaging of skull and head (217471341) Abnormal findings on diagnostic imaging of skull and head, not elsewhere classified (R93.0) 2020 Active confirmed Abnormal findings on diagnostic imaging of skull and head, not elsewhere classified Problem Screening for cancer (26595512) Encounter for screening for malignant neoplasm of oral cavity (Z12.81) 2020 Active confirmed Encounter for screening for malignant neoplasm of oral cavity Problem Screening for cancer (83190376) Encounter for screening for malignant neoplasm of other sites (Z12.89) 2020 Active confirmed Encounter for screening for malignant neoplasm of other sites Problem Arthralgia of temporomandibular joint (04248157) Arthralgia of bilateral temporomandibul ar joint (M26.623) 2020 Active confirmed Arthralgia of bilateral temporomandibula r joint Problem 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 [address] [place] [address] [id number] Josie Booker Self - patient is the insured
--- OUTSIDE RECORDS SUMMARY | 2025-04-24 17:42 | XMS_ITS | Encounter Summary ---
Author Organization [facility] Address [address] [address] Care Team Providers Care E Commerce Architect Name Role Phone Britney Jarrett MD Primary [...] documented as of this encounter Care Teams E Commerce Architect Relationship Specialty Start Date End Date Britney Jarrett MD [address] [place] [address] PCP - General 04/04/16 documented as of this encounter
--- OUTSIDE RECORDS SUMMARY | 2025-04-24 17:42 | XMS_ITS | Encounter Summary ---
[facility] Address [address], [place] [address] Care Team Providers Care Functional Manager Name Role Phone Britney Jarrett MD Primary Care Provider [phone] Encounter Details Date Type Department Care Team (Latest Contact Info) Description 02/18/1998 Orders Only [place] [address] Social History Tobacco Use Types Packs/Day Years [...] documented as of this encounter Care Teams Functional Manager Relationship Specialty Start Date End Date Britney Jarrett MD [address] [place] [address] PCP - General 04/04/16 documented as of this encounter
--- OUTSIDE RECORDS SUMMARY | 2025-04-24 17:42 | XMS_ITS | Encounter Summary ---
Author Organization [facility] Address [address] [address] Care Team Providers Care Receiving Manager Name Role Phone Britney Jarrett MD Primary Care Provider [phone] Encounter Details Date Type Department Care Team [...] documented as of this encounter Care Teams Receiving Manager Relationship Specialty Start Date End Date Britney Jarrett MD [address] [place] [address] PCP - General 04/04/16 documented as of this encounter
--- OUTSIDE RECORDS SUMMARY | 2025-04-24 17:42 | XMS_ITS | Encounter Summary ---
Author Organization [facility] Address [address], [place] [address] Care Team Providers Care Medical Csr Name Role Phone Britney Jarrett MD Primary Care Provider [phone] Encounter Details Date Type Department Care Team (Latest Contact Info) Description 01/23/2000 Orders Only Madelin Becerril MD [address] [place] [address] Social History Tobacco Use Types Packs/Day Years [...] documented as of this encounter Care Teams Medical Csr Relationship Specialty Start Date End Date Britney Jarrett MD [address] [place] [address] PCP - General 04/04/16 documented as of this encounter
--- OUTSIDE RECORDS SUMMARY | 2025-04-24 17:42 | XMS_ITS | Clinical Summary ---
Author Organization [facility] Address [address] [place] [address] Care Team Providers Care Fine Artist Name Role Phone [facility], [facility] Primary Care Provider Allergies No [...] on file Legal Sex Female 3:23 AM [facility] Gender Identity Not on file Sexual Orientation [...] 58.5 kg (129 lb) 06/24/2014 7:51 PM [facility] Height 152.4 cm (5') 06/24/2014 7:51 PM [facility] Body Mass Index 25.19 06/24/2014 7:51 PM [facility] Plan of Treatment Health Maintenance Due Date Last Done Comments ADVANCE CARE PLANNING 1968 ANNUAL REVIEW OF HM ORDERS 1968 CT COLONOGRAPHY 1968 FIT 1968 FLEX SIG 1968 MAMMO SCREENING 1968 sDNA (Cologuard) 1968 COLONOSCOPY 1978 COLORECTAL CANCER SCREENING 1978 HIV SCREENING 1983 HEPATITIS C SCREENING 1986 YEARLY PREVENTIVE VISIT 02/06/2008 02/06/20 07, 04/05/2005, 04/02/2004, Additional history exists LIPID 2008 HEPATITIS B VACCINE (3 of 3 - Hep B Twinrix 3-dose series) 07/27/2015 02/24/2015, 01/19/2015 PAP 08/19/2016 08/19/2013 PNEUMOCOCCAL VACCINE 50+ YEARS (1 of 1 - PCV) 2018 ZOSTER VACCINE (1 of 2) 2018 DIABETES SCREENING 05/09/2021 05/09/2018, 06/24/2014 DTAP/TDAP/TD VACCINE (3 - Td or Tdap) 05/07/2022 05/07/2012, 02/23/2009, 04/27/1999, Additional history exists PHQ-2 (once per calendar year) 2024 COVID-19 VACCINE ( - season) 2025 06/08/2021, 10/27/2020, 09/28/2020 INFLUENZA VACCINE (#1) 2025 0, 05/31/2019, 05/31/2019, Additional history exists HPV VACCINE (No Doses Required) Completed MENINGITIS VACCINE Aged Out No longer eligible based on [...] - 144 mmol/L 05/09/2018 4:23 AM [facility] Potassium 3.8 3.4 - 5.3 mmol/L 05/09/2018 4:23 AM [facility] Chloride 107 94 - 109 mmol/L 05/09/2018 4:[address] [facility] Carbon Dioxide 27 20 - 32 mmol/L 05/09/2018 4:[address] [facility] Anion Gap 5 3 - 14 mmol/L 05/09/2018 4:[address] [facility] Glucose 104(H) 70 - 99 mg/dL 05/09/2018 4:[address] [facility] Urea Nitrogen 19 7 - 30 mg/dL 05/09/2018 4:[address] [facility] Creatinine 0.97 0.52 - 1.04 mg/dL 05/09/2018 4:[address] [facility] GFR Estimate 61 >60 mL/min/1.7 m2 05/09/2018 4:[address] [facility] Comment:Non GFR Calc GFR Estimate If Black 74 >60 mL/min/1.7 m2 05/09/2018 4:[address] [facility] Comment: GFR Calc Calcium 8.1(L) 8.5 - 10.1 mg/dL 05/09/2018 4:[address] [facility] Blood specimen (specimen) 05/09/2018 3:49 AM CDT 05/09/2018 4:11 AM CDT us Nanci De La Vega MD LAB - BLOOD ORDERABLES Final R esult [facility] [address] [place] [address], [facility] [phone] from Last 3 Months or Most Recently Relevant to Health Maintenance Insurance [place] Care Teams Fine Artist Relationship Specialty Start Date End Date Clinic, [address] [address] PCP - General 05/09/18
--- OUTSIDE RECORDS SUMMARY | 2025-04-24 17:42 | XMS_ITS | Clinical Summary ---
Author Organization [facility] Address [address] [place] [address] Care Team Providers Care Surgical Supplies Sterilizer Name Role Phone Elsewhere, Pcp Primary Care Provider Unavailabl e Source Comments Patient records contain information from all sites at [facility]. For routine questions regarding patient records, call [phone] during business hours, M-F 8:00 AM - 5:00 PM Central Time. Record requests for emergency care only can be directed to [phone] at any time.[facility] Allergies Active Allergy Reactions Criticality Noted Date Comments Mold Other (see comments) 01/30/2017 sinus infection Ragweed Pollen Other (see comments) 02/07/2025 Runny nose, itchy eyes Medications acetaminophen (TYLENOL) 500 mg tablet Take [...] 600 mg of calcium by mouth daily. 2 Active diclofenac-miSOP ROStol (Arthrotec 50) 50-200 mg-mcg per DR tablet Take 1 tablet by mouth 3 (three) times a day. Do not crush or chew. 90 tablet 3 08/15/202 4 Active Additional Information Patient not taking.Reported on 02/07/2025 phentermine (Adipex-P) 37.5 mg capsule Take 37.5 mg by mouth daily before morning meal. One full tablet every other day 1/2 tablet every other day Active Active Problems Problem Noted Date Diagnosed Date Primary Osteoarthritis Cervical Spine 12/07/2021 Cyst Renal 12/07/2021 Fatigue 12/03/2021 Screening Osteoporosis 12/03/2021 Pain Back Thoracic 12/03/2021 Fibromyalgia 12/03/2021 Mass Axilla Left 12/03/2021 Gastroesophageal Reflux Disease 12/03/2021 Preoperative Exam 04/21/2019 Overview (04/21/2019): Added automatically from request for surgery [id number] Stenosis Spinal 04/21/2019 Overview (04/21/2019): Added automatically from request for surgery [id number] Encounters Date Type Department Care Team Description 02/07/2025 9:00 AM CDT Office Visit Department of Orthopedic Surgery in [address] [phone] Steve Jesus M.D., M.S. Pain Low Back Unspecified (Primary Dx); Spondylosis; Fusion Lumbar Spine Status Post; Pain Neck Mechanical; Primary Osteoarthritis Cervical Spine 02/07/2025 8:15 AM CDT - 02/07/2025 11:59 PM CDT Hospital Encounter Department of Radiology in [address] [phone] Steve Jesus M.D., M.S. Pain Low Back Unspecified; Spondylosis; Fusion Lumbar Spine Status Post; Pain Neck Mechanical; Primary Osteoarthritis Cervical Spine Discharge Disposition: Home or Self Care 02/01/2025 Clinical Communication Department of Orthopedic Surgery in [address] [address] Steve Jesus M.D., M.S. 01/25/2025 9:00 AM CDT - 01/25/2025 11:59 PM CDT Hospital Encounter Department of Radiology in [address] [place] [phone] Steve Jesus M.D., M.S. Pain Low Back Unspecified; Fusion Lumbar Spine Status Post; Pain Neck Mechanical; Primary Osteoarthritis Cervical Spine Discharge Disposition: Home or Self Care from Last 3 Months Immunizations Immunization Administration Dates Next Due DT, Pediatric 07/22/1994 [...] Relation Name Comments Other cancer Brother Dmitriy Alejoillesusan Throat Cancer - 52 years old ADD Daughter Marianne Booker Diabetes Daughter Marianne Booker Type 1 Diabetes Father Yovani Alejodidi Type 2 Stroke Father Yovani Alejodidi 81 years old Arthritis Mother Jenniffer Schiller Breast cancer Mother Jenniffer Schiller Osteoporosis Mother Jenniffer Schiller Leukemia Paternal Grandmother Jolly Michelle Other cancer Sister Alondra Bacon Uterine can cer- 55 years old Relation Name Status Comments Brother Dmitriy Martinez Alive Daughter Marianne Booker Father Yovani Martinez Mother Jenniffer Martinez Paternal Grandmother Jolly Martinez Sister Alondra Bacon Alive Social History Tobacco Use Types Packs/Day Years Used Date Smoking Tobacco: Never Smokeless Tobacco: Never Tobacco Cessation:Counseling Given: Not Answered Alcohol Use Standard Drinks/Week Comments Yes 0 (1 standard drink = 0.6 oz pur e alcohol) [facility] Utilities Answer Date Recorded In the past 12 months has e [employer], [employer], oil, or water [employer] threatened to shut off services in your [...] by your partner or ex-partner? No 08/15/2022 Hunger Vital Sign Answer Date Recorded [...] PHQ-9 Total Score (max 27) 5 08/19 Housing Stability Answer Date Recorded What is your living situation today? I have a [facility] place to live 02/02/2024 Education Answer Date Recorded What is the highest level of school you have completed or the highest degree you have received? 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 SERVICES DEVELOPER, SINDY) 08/08/2019 Comments No Sex and Gender Information Value Date Recorded Sex Assigned at Female 03/04/2018 7:21 PM CDT Legal Sex Female 12:39 PM INTERVENTIONAL PHYSICIAN Gender Identity Female 03/04/2018 7:21 PM CDT Sexual Orientation Straight 03/04/2018 7: 21 PM CDT Last Filed Vital Signs Vital Sign Reading Time Taken Comments Blood Pressure 144/86 08/19/2022 8:10 AM INTERVENTIONAL PHYSICIAN Pulse 84 08/19/2022 8:10 AM INTERVENTIONAL PHYSICIAN Temperature 37 C (98.6 F) 08/14/2019 12:30 PM INTERVENTIONAL PHYSICIAN Respiratory Rate 17 08/14/2019 12:30 PM INTERVENTIONAL PHYSICIAN Oxygen Saturation 98% 08/14/2019 12:34 PM INTERVENTIONAL PHYSICIAN Inhaled Oxygen Concentration - - Weight 69.9 kg (154 lb 1.6 oz) 02/09/2024 9:02 A M CDT Height 152.4 cm (5') 02/09/2024 9:02 AM CDT Body Mass Index 30.1 02/09/2024 9:02 AM CDT Plan of Treatment Health Maintenance Due Date Last Done Comments CT Colonography 1968 Cologuard 1968 FIT 1968 HIV Screening 1968 Hepatitis C Screening 1968 Hepatitis B Vaccines (3 of 3 - Hep B Twinrix 3-dose series) 07/27/2015 02/24/2015, 01/19/2015 Pneumococcal vaccine (50+ years) (1 of 1 - PCV) 2018 Zoster Vaccines (1 of 2) 2018 Cervical/Vaginal Cancer Screening 10/16/2021 10/16/2018, 08/03/2014 (Performed elsewhere), 02/05/2007 Mammogram 08/27/2022 08/27/2021, 02/01, 02/09/2020, Additional history exists Fasting Glucose for Diabetes Screening 12/04/2024 12/04/2021, 08/11/2019 COVID-19 Vaccine ( season) 2025 06/08/2021, 10/27/2020, 09/28/2020 Influenza Vaccine (#1) 2025 3, 04/28/2020, 05/31/2019, Additional history exists Lipid (Cholesterol) Screening 12/04/2026 12/04/2021, 08/03/2015 (Performed elsewhere) Colonoscopy 05/26/2029 05/26/2019 (Perf ormed elsewhere) Colorectal Cancer Screening 05/26/2029 DTaP,Tdap,and Td Vaccines (9 - Td or Tdap) 06/23/2033 06/23/2023, 05/07/2012, 05/07/2012, Additional history exists Depression Screening (Annual PHQ-2) Completed 02/02/2025 IPV Vaccines Aged Out No longer eligi ble based on patient's age to complete this topic Medical Devices Implanted Type Area Food And Beverage Attendant Device Identifier Shelf Expiration Date Model / Serial / Lot Allogenic, Femoral Head - [id number] - [id number] Implanted:Qt y: 1 on 08/12/2019 by Steve Jesus M.D., M.S. at [facility] Bone or Tissue Posterior : Spine Lumbar [facility] 07/08/2021 [id number] / [id number] / [id number] Breast Implant-2009 Implanted: (Quantity not on file) Breast Implant Bilateral : Breast Hardware E.G. Pins/Screws/ Rods- 9 Implanted: (Quantity not on file) Hardware e.g. pins/screws /rods Neck Description:C6-C7 part of fu rodriguez Spn Scrw Exp Sld 6.35 7x45 - Sna - [id number] Implanted:Qt y: 4 on 08/12/2019 by Steve Jesus M.D., M.S. at [facility] Hardware e.g. pins/screws /rods Posterior : Spine Lumbar Depuy Synthes [id number] / NA / NA Spn Scrw Exp Sld 6.35 8x55 - Sna - [id number] Implanted:Qt y: 1 on 08/12/2019 by Steve Jesus M.D., M.S. at [facility] Hardware e.g. pins/screws /rods Posterior : Spine Lumbar Depuy Synthes [id number] / NA / NA Spn Scrw St Exp Sgl [place] 6.35 - Sna - [id number] Implanted:Qt y: 5 on 08/12/2019 by Steve Jesus M.D., M.S. at [facility] Hardware e.g. pins/screws /rods Posterior : Spine Lumbar Depuy Synthes [id number] / NA / NA Spn Noble Exp Pr Ld 6.35x45 - Sna - [id number] Implanted:Qt y: 1 on 08/12/2019 by Steve Jesus M.D., M.S. at [facility] Hardware e.g. pins/screws /rods Posterior : Spine Lumbar Depuy Synthes [id number] / NA / NA Spn Noble Exp Pr Ld 6.35x65 - Sna - [id number] Implanted:Qt y: 1 on 08/12/2019 by Steve Jesus M.D., M.S. at [facility] Hardware e.g. pins/screws /rods Posterior : Spine Lumbar Depuy Synthes [id number] / NA / NA Procedures Procedure Name Priority Date/Time Associated Diagnosis Comments DX CERVICAL SPINE 4-5 VIEWS RAD - Routine (most inpatients and all outpatients) 02/07/2025 8:44 AM CDT Pain Neck Mechanical Primary Osteoarthritis Cervical Spine DX LUMBAR SPINE 2-3 VIEWS RAD - Routine (most inpatients and all outpatients) 02/07/2025 8:44 AM CDT Pain Low Back Unspecified Spondylosis Fusion Lumbar Spine Status Post BMD BONE DENSITY SPINE HIPS RAD - Routine (most inpatients and all outpatients) 01/25/2025 9:59 AM CDT Pain Low Back Unspecified Fusion Lumbar Spine Status Post Pain Neck Mechanical Primary Osteoarthritis Cervical Spine COMPREHENSIVE METABOLIC PANEL, S/P Routine 12/04/2021 7:26 AM CDT Mass Axilla Left Fibromyalgia Pain Back Thoracic Pain Back Screening Osteoporosis Gastroesophageal Reflux Disease Fatigue LIPID PANEL, S Routine 12/04/2021 7:26 AM CDT Mass Axilla Left Fibromyalgia Pain Back Thoracic Pain Back Screening Osteoporosis Gastroesophageal Reflux Disease Fatigue OUTSIDE MG MAMMOGRAM Routine 08/27/2021 9:50 AM INTERVENTIONAL PHYSICIAN from Last 3 Months or Most Recently Relevant to Health Maintenance Results * DX Lumbar Spine 2-3 Views (02/07/2025 8:44 AM CDT) Anatomical Region Laterality Modality Lumbar Spine, Musculoskeleta l RST LOS, Neuroradiology ARZ LOS, Muskuloskeletal FLA LOS N/A Digital Radiography Impressions 02/07/2025 9:09 AM CDT Prior radiographs obtained 12/01/2020. Postoperative changes from instrumented spinal fusion procedure and bone grafting spanning the L4-S1 segments with pedicle screw placement and connecting rods remaining intact. Similar magnitude of anterolisthesis of L5 on S1. Vertebral body heights are preserved. Multilevel spondylosis and bilateral SI arthrosis appears similar to prior. Suture anchors from hernia mesh repair. Narrative 02/07/2025 9:09 AM CDT EXAM: DX LUMBAR SPINE 2-3 VIEWS Procedure Note Noe Washburn M.D. - 02/07/2025 EXAM: DX LUMBAR SPINE 2-3 VIEWS IMPRESSION: Prior radiographs obtained 12/01/2020. Postoperative changes frominstrumented spinal fusion procedure and bone grafting spanning the L4-G6judnbeqr with pedicle screw placement and connecting rods remainingintact. Similar magnitude of anterolisthesis of L5 on S1. Vertebral body heights are preserved.Multilevel spondylosis and bilateral SI arthrosis appears similar toprior. Suture anchors from hernia mesh repair. Steve Jesus M.D., M.S. IMG DIAGNOSTIC IMAG ING PROCEDURES Final Result * DX Cervical Spine 4-5 Views (02/07/2025 8:44 AM CDT) Anatomical Region Laterality Modality Cervical Spine, Musculoskele robyn RST LOS, Neuroradiology ARZ LOS, Muskuloskeletal FLA LOS N/A Digita l Radiography Impressions 02/07/2025 9:10 AM CDT ACDF C6/7. No evidence of hardware fracturing or loosening. Grade 1 anterolisthesis of C3 on C4. No evidence of dynamic instability. Mild multilevel disc height loss and endplate spurring. Multilevel facet arthropathy and uncinate hypertrophy. Narrative 02/07/2025 9:10 AM CDT EXAM: DX CERVICAL SPINE 4-5 VIEWS Procedure Note Darin Ty M.D. - 02/07/2025 EXAM: DX CERVICAL SPINE 4-5 VIEWS IMPRESSION: ACDF C6/7. No evidence of hardware fracturing or loosening. Grade 1anterolisthesis of C3 on C4. No evidence of dynamic instability. Mildmultilevel disc height loss and endplate spurring. Multilevel facetarthropathy and uncinate hypertrophy. Steve Jesus M.D., M.S. IMG DIAGNOSTIC IMAG ING PROCEDURES Final Result * BMD Bone Density Spine Hips (01/25/2025 9:59 AM CDT) Anatomical Region Laterality Modality Hip, Lumbar Spine, Nuclear M edicine RST LOS, Musculoskeletal ARZ LOS, Muskuloskeletal FLA LOS N/A Radio graphic Imaging Impressions 01/25/2025 10:00 AM CDT Low bone density (Osteopenia) DualFemur (region: Neck Left) Low bone density (Osteopenia) DualFemur (region: Neck Right) Narrative 01/25/2025 10:00 AM CDT EXAM: BMD BONE DENSITY SPINE HIPS Bone Mineral Density (BMD) analysis performed on shopkick with serial number [id number]. FINDINGS: Left Hip: Femur Neck: BMD = 0.781 g/cm2 T-score = -1.9 Z-score = -0.8 Total Hip: BMD = 0.814 g/cm2 T-score = -1.5 Z-score = -0.8 Right Hip: Femur Neck: BMD = 0.773 g/cm2 T-score = -1.9 Z-score = -0.8 Total Hip: BMD = 0.829 g/cm2 T-score = -1.4 Z-score = -0.7 Lumbar Spine: L1: BMD = 1.015 g/cm2 L2: BMD = 1.111 g/cm2 Total Lumbar Spine (L1-L2): BMD = 1.063 g/cm2 T-score = -0.9 Z-score = 0.0 Trabecular Bone Score: L1-L2: TBS = 1.720 < 1.23: low 1.23 -1.31: borderline > 1.31: normal A low TBS has been associated with increased risk of fractures in certain populations. TBS should not be used alone to determine treatment recommendations. It can be used in conjunction with BMD and FRAX to inform management. Please note: A more comprehensive DXA report, including images and graphs, is available in MedDay. In the absence of other causes of [...] Based on the bone density results, and on the patient's answers to the Fracture Risk Assessment questionnaire (please refer to appropriate image stored in the BMD study in [employer]REApoLight), the calculated ten year probability of fracture is: FRAX Risk Factors: Family Hist. (Parent hip fracture) FRAX (10 yr probability) adjusted for TBS Major Osteoporotic Fracture: 7.2 % Hip Fracture: 0.2 % Procedure Note oNe Blas M.D. - 01/25/2025 EXAM: BMD BONE DENSITY SPINE HIPS Bone Mineral Density (BMD) analysis performed on shopkickwith serial number [id number]. FINDINGS: Left Hip: Femur Neck: BMD = 0.781 g/cm2 T-score = -1.9 Z-score = -0.8 Total Hip: BMD = 0.814 g/cm2 T-score = -1.5 Z-score = -0.8 Right Hip: Femur Neck: BMD = 0.773 g/cm2 T-score = -1.9 Z-score = -0.8 Total Hip: BMD = 0.829 g/cm2 T-score = -1.4 Z-score = -0.7 Lumbar Spine: L1: BMD = 1.015 g/cm2 L2: BMD = 1.111 g/cm2 Total Lumbar Spine (L1-L2): BMD = 1.063 g/cm2 T-score = -0.9 Z-score = 0.0 Trabecular Bone Score: L1-L2: TBS = 1.720 < 1.23: low 1.23 -1.31: borderline > 1.31: normal A low TBS has been associated with increased risk of fractures in certainpopulations. TBS should not be used alone to determine treatmentrecommendations. It can be used in conjunction with BMD and FRAX to informmanagement. Please note: A more comprehensive DXA report, including images and graphs,is available in QREADS. In the absence of other causes of [...] Based on the bone density results, and on the patient's answers to theFracture Risk Assessment questionnaire (please refer to appropriate imagestored in the BMD study in QREADS), the calculated ten year probability offracture is: FRAX Risk Factors: Family Hist. (Parent hip fracture) FRAX (10 yr probability) adjusted for TBS Major Osteoporotic Fracture: 7.2 % Hip Fracture: 0.2 % IMPRESSION: Low bone density (Osteopenia) DualFemur (region: Neck Left) Low bone density (Osteopenia) DualFemur (region: Neck Right) Steve Jesus M.D., M.S. G DXA PROCEDURES Final Result * (ABNORMAL) Lipid Panel (12/04/2021 7:26 AM CDT) [facility] Cholesterol, Total 269(H) mg/dL 2021 2:21 PM [...] D.O. LAB BLOOD ADD-ON Final Resul t [facility] [address] [place] [address], [facility] [address] [place] [address] * (ABNORMAL) Comprehensive Metabolic Panel (12/04/2021 7:26 [...] D.O. LAB BLOOD ADD-ON Final Resul t [facility] [address] [place] [address], [place] DTL [facility] [address] [place] [address] * DIAGNOSTIC MAMMO, BILAT, W/CAD-Outside Mammogram (08/27/2021 9:50 AM INTERVENTIONAL PHYSICIAN) Narrative [facility] - 12/03/2021 10:39 AM CDT [...] System IMG BI PROCEDURES Final R esult IIMS NA from Last 3 Months or Most Recently Relevant to Health Maintenance Insurance [facility] Advance Directives For more information, please contact: [phone] * Full Code (Latest Code Status on File) Date Activated Date Inactivated Comments 08/12/2019 1:44 PM 08/14/2019 3:15 PM Question Answer Comments Full Code: Discussed Care Teams Surgical Supplies Sterilizer Relationship Specialty Start Date End Date Elsewhere, Pcp PCP - General Internal Medicine 08/16/22
--- OUTSIDE RECORDS SUMMARY | 2025-04-24 17:42 | XMS_ITS | Encounter Summary ---
Author Organization [facility] Address [address] [address] Care Team Providers Care Paper Testing Supervisor Name Role Phone Britney Jarrett MD Primary Care Provider [phone] Encounter Details Date Type Department Care Team (Latest Contact Info) Description 06/04/1995 Orders Only Harris Jarrett MD [address] [place] [address] Social History Tobacco Use Types Packs/Day Years [...] documented as of this encounter Care Teams Paper Testing Supervisor Relationship Specialty Start Date End Date Britney Jarrett MD [address] [place] [address] PCP - General 04/04/16 documented as of this encounter
--- OUTSIDE RECORDS SUMMARY | 2025-04-24 17:42 | XMS_ITS | Clinical Summary ---
Author Organization [facility] Address [address] [place] [address] Care Team Providers Care Manager Center Name Role Phone Nonstaff, Doctor Primary Care Provider Unavailab le Allergies Active Allergy Reactions Criticality Noted Date Comments Mold *Unknown 01/30/2017 sinus infection Medications pregabalin (LYRICA) 100 mg capsule Take 75 mg by mouth. Active Lactobac no.41-Bifidobac t no.7 (PROBIOTIC-10) 70 mg (3 billion cell) cap Active acetaminophen (TYLENOL EXTRA STRGTH) 500 mg tablet Take 500 mg by mouth. Active acetaminophen-c odeine, 300-30 mg, (TYLENOL-CODEIN E #3) tablet Take 1-2 Tabs by mouth. [...] Active LYRICA 75 mg capsule 0 10/07/2018 Active Active Problems No known active problems Social History Tobacco Use Types Packs/Day Years Used Date Smoking Tobacco: Never Assessed Comments Unknown Sex and Gender Information Value Date Recorded Sex Assigned at Not on file Legal Sex Female 7:25 AM STEWARD/STEWARDESS ROOM Gender Identity Not on file Sexual Orientation [...] Health Maintenance Due Date Last Done Comments Tetanus booster 1979 Depression screening for age 12+ 1980 HIV for age 15-65 1983 Hepatitis C screening for ag e 18-79 1986 Hepatitis B series for 19+ ( 1 of 3 - 19+ 3-dose series) 1987 Colonoscopy through age 75 2013 Lipids for age 45-75 2013 Mammogram for age 45-75 2013 Pneumococcal series for age 50+ (1 of 1 - PCV) 2018 Zoster (shingles) series for age 50+ (1 of 2) 2018 BMI (ht and wt on same day) for age 18+ 10/21/2019 10/20/2018 Pap test for age 21-65 10/16/2021 9, 10/16/2018, 08/19/2013, Additional history exists COVID-19 vaccine series ( - 2023- season) 2025 Influenza Vaccine (#1) 2025 RSV vaccine for adults or (1 - 1-dose 75+ series) 2043 Procedures Procedure Name Priority Date/Time Associated Diagnosis Comments MANAGER MONEY THIN PREP PAP SCREEN IMAGED Routine 10/16/2018 3:10 PM CDT from Last 3 Months or Most Recently Relevant to Health Maintenance Results * MANAGER MONEY THIN PREP PAP SCREEN IMAGED (10/16/2018 3:10 PM CDT) Case Report Gynecologic Cytology Report Case: [id number] Authorizing Provider: Riana Dorsey PA-C Collected: 10/16/2018 1510 Ordering Location: [facility] Received: 10/19/2018 1431 First Screen: Kamran Argueta Specimen: MANAGER MONEY ThinPrep Vial Screening, Cervical/Vaginal 10/26/2018 9:52 AM CDT [facility] INTERPRETATION/ RESULT NEGATIVE FOR INTRAEPITHELIAL LESION OR MALIGNANCY (NIL) (none) 10/26/2018 9:52 AM CDT [facility] at 0952 CDT SPECIMEN ADEQUACY Satisfactory for evaluation Endocervical component present 10/26/2018 9:52 AM CDT [facility] HPV REQUEST HPV and PAP 10/26/2018 9:52 AM CDT [facility] Last Pap Date 10/26/2018 9:52 AM CDT [facility] Comment:2013 Last Pap Result NIL 9 9:52 AM CDT [facility] Menstrual Status Ablation 10/26/2018 9:52 AM CDT [facility] Automated Review Successful 10/26/2018 9:52 AM CDT [facility] Comment:Specimen processed s uccessfully by automated coke still cleaner device, VaxxasPrep Imaging System, [employer] ANCILLARY TESTING MANAGER MONEY HPV Ordered, Please see separate report 10/26/2018 9:52 AM CDT [facility] Note The pap test is a [...] lesions. Cytology is screened and interpreted at [facility] - [address], [place] [address] and [facility] - [address]; [place] [address] and [facility] - [address]; [place] [address] and [facility] [address]; [place] [address] 10/26/2018 9:52 AM CDT [facility] Other (Cervical/Vagina l) 10/16/2018 3:10 PM CDT 10/19/2018 2:38 PM CDT Riana Dorsey PA-C PATHOLOGY/CYTOLOGY Final Resu lt [facility] [address] [place] [address], [place] from Last 3 Months or Most Recently Relevant to Health Maintenance Insurance [facility] Care Teams Manager Center Relationship Specialty Start Date End Date Nonstaff, Doctor NON STAFF DOCTOR PCP - General 06/14/11
--- OUTSIDE RECORDS SUMMARY | 2025-04-24 17:42 | XMS_ITS | Patient Health Record ---
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 Plan Of Treatment No Information Insurance Providers Payer Name Payer Address Payer Phone Subscriber Number Group Number Insured Name Patient Relationship to Insured Coverage Start Date Coverage End Date BCBS - (Client Bill) [address] [place] [address] [id number] Josie Booker Self - patient is the insured Medical (General) History Medical History History ICD Code Arthritits Surgical History Surgery Date(Month/Year) Tonsils/adenoids- childhood tubes as child shoulder surgery 2018 carpal tunnel surgery 95 and 96 low back fusion neck fusion 2009 breast implants 2010 breast reduction 23 03 hernia repair 2019
[2025-04-24] MEDS: IBUPROFEN 400 MG TABLET 600 MG PO (18:06)
[2025-04-24 18:16] LABS: Appearance Urine Slightly Cloudy (Clear)
[2025-04-24 18:25] LABS: Hematocrit* 38.9 % (33.0-51.0); Hemoglobin* 13.4 gm/dL (12.0-16.0); Immature Granulocytes Pct Auto 0.1 %; Lactate* 0.9 mmol/L (0.5-1.9); Mean Corpuscular HGB Conc 34 gm/dL (32-36); Mean Corpuscular Hemoglobin 28 pg (26-34); Mean Corpuscular Volume 82 fL (80-100); RDW Coefficient of Variation % 11.7 % (11.5-15.5); Red Blood Count* 4.72 m/uL (4.00-5.20); White Blood Count* 11.69 K/uL (4.50-11.00)
[2025-04-24 18:28] LABS: Immature Granulocytes Abs Auto 0.00 K/uL (0.00-0.30); Lymphocytes Absolute Auto 0.60 K/uL (0.90-2.90); Slide Review Reflex No
[2025-04-24 18:44] LABS: Albumin* 4.0 g/dL (3.3-5.0); Chloride* 102 mmol/L (96-114)
[2025-04-24 18:45] LABS: Potassium* 3.7 mmol/L (3.6-5.1); Sodium* 133 mmol/L (135-149)
[2025-04-24 18:47] LABS: Blood Urea Nitrogen* 17 mg/dL (7-30); Creatinine* 0.9 mg/dL (0.5-1.5); Estimated Glomerular Filt Rate 75 ml/min
[2025-04-24 18:48] LABS: Alanine Aminotransferase* 15 U/L (4-35); Alkaline Phosphatase* 29 U/L (40-150); Anion Gap 10 mEq/L (7-15); Aspartate Amino Transferase* 26 U/L (12-35); Bilirubin Direct* 0.2 mg/dL (0.0-0.5); Bilirubin Total* 0.7 mg/dL (0.1-1.5); Calcium* 8.8 mg/dL (8.4-10.6); Carbon Dioxide* 21 mmol/L (20-32); Glucose* 93 mg/dL (60-115); Total Protein* 6.7 g/dL (6.0-8.3)
[2025-04-24 19:04] LABS: PCR FLU A Negative PCR FLU A (Negative); PCR FLU B Negative PCR FLU B (Negative); SARS PCR* Negative SARS-CoV-2 (Negative)
[2025-04-24 19:05] LABS: Procalcitonin* 0.07 ng/mL (<0.50)
[2025-04-24] MEDS: cefTRIAXone 1 GM in 0.9 % SODIUM CHLORIDE Mini-bag 100 ML IVPB (19:21)
--- NOTE | 2025-04-24 19:21 | ED.GENADULT ---
HPI - General Adult General Chief complaint: Back Injury/Pain Stated complaint: severe back pain uti Time Seen by Provider: 04/24/25 17:53 Source: patient Mode of arrival: ambulatory Limitations: no limitations History of Present Illness HPI narrative: 54-year-old female presenting today with left flank pain, suprapubic discomfort, dysuria and increased urinary frequency. Patient states that she was treated with for a UTI 2 weeks ago and has been done with her antibiotics for the last week. She had similar symptoms 2 weeks ago and thought that she had gotten better however in the last 48 hours her symptoms have returned. She feels nauseated, has not vomited. She has chills, decreased p.o. intake. No blood in her urine. Related Data Home Medications ?Medication ?Instructions ?Recorded ?Confirmed Lactobacillus 1 cap PO QDAY 07/02/24 04/24/25 acidophilus-Bifidobac.animalis 10 billion cell capsule (Digestive Probiotic) calcium carbonate (Calcium 600) 1,200 mg PO QDAY 07/02/24 04/24/25 loratadine 10 mg tablet (Claritin) 10 mg PO QDAY 07/02/24 04/24/25 tirzepatide (weight loss) 5 mg/0.5 5 mg subcut 04/13/25 04/13/25 mL subcutaneous pen injector (Zepbound) estradiol 2 mg tablet 2 mg PO DAILY 04/24/25 04/24/25 nitrofurantoin 1 cap PO BID 04/24/25 04/24/25 monohydrate/macrocrystals 100 mg capsule Previous Rx's ?Medication ?Instructions ?Recorded estradiol 0.01% (0.1 mg/gram) 1 appful vaginal 3XW #42.5 grams 07/08/24 vaginal cream calcitriol 0.25 mcg capsule 0.25 mcg PO QDAY #90 caps 07/12/24 cyclobenzaprine 5 mg tablet 5 mg PO BID PRN muscle spasm #90 08/19/24 tabs celecoxib 200 mg capsule (Celebrex) 200 mg PO BID PRN pain #90 caps 12/16/24 azithromycin 250 mg tablet See Rx Instructions PO .COMPLEX #6 01/11/25 tabs prednisone 20 mg tablet 20 mg PO QDAY #5 tabs 01/11/25 Allergies Allergy/AdvReac Type Severity Reaction Status Date / Time mold Allergy Unknown nasal Verified 04/24/25 17:50 congestion No Known Drug Intolerances Allergy Unknown Verified 04/13/25 08:34 shellfish derived Allergy Gastrointestinal Verified 04/24/25 17:50 Upset Review of Systems Status of ROS: Reports: 10 or more systems reviewed and unremarkable except as noted in History and below [facility] Medical History Positive MARIUM (antinuclear antibody) ?R76.8 - Other specified abnormal immunological findings in serum (ICD-10) Herniated disc (02/23/09) Temporomandibular joint disorder ?M26.609 - Unspecified temporomandibular joint disorder, unspecified side (ICD-10) Post-operative nausea and vomiting ?R11.2 - Nausea with vomiting, unspecified (ICD-10) ?Z98.890 - Other specified postprocedural states (ICD-10) History of eustachian tube dysfunction ?Z86.69 - Personal history of other diseases of the nervous system and sense organs (ICD-10) Surgical History Status post trigger finger release (02/17/23) ?Z98.890 - Other specified postprocedural states (ICD-10) History of back surgery (08/2019) ?Z98.890 - Other specified postprocedural states (ICD-10) H/O bilateral breast reduction surgery ?Z98.890 - Other specified postprocedural states (ICD-10) H/O adenoidectomy ?Z90.89 - Acquired absence of other organs (ICD-10) History of carpal tunnel release (1994) ?Z98.890 - Other specified postprocedural states (ICD-10) History of tonsillectomy ?Z90.89 - Acquired absence of other organs (ICD-10) Status post cervical spinal arthrodesis (2009) ?Z98.1 - Arthrodesis status (ICD-10) History of spinal surgery (1984) ?Z98.890 - Other specified postprocedural states (ICD-10) History of shoulder surgery (2016) ?Z98.890 - Other specified postprocedural states (ICD-10) History of hernia repair ?Z98.890 - Other specified postprocedural states (ICD-10) ?Z87.19 - Personal history of other diseases of the digestive system (ICD-10) History of endometrial ablation ?Z98.890 - Other specified postprocedural states (ICD-10) History of breast augmentation ?Z98.82 - Breast implant status (ICD-10) Family History Mother Multiple myeloma Pulmonary fibrosis Social History What is your current living situation?: I presently have a place to live Problems where you live: no known problems In the past 12 months, utilities in danger of being shut off: no In past 12 months, lack of transportation kept you from medical appts, meetings, work, or getting things needed for daily living: no In the past 12 mos, have been you worried that your food would run out before you had money to buy more?: never true In the past 12 mos, the food you bought just didn't last and you didn't have money to buy more?: never true Smoking Status: Never smoker Do you use any of these nicotine containing products: None Second hand tobacco smoke exposure: No How often do you have a drink containing alcohol: never AUDIT-C Alcohol total score: 0 Non-prescribed substance use: denies use How often does anyone, including family, friends and others, physically hurt you: never How often does anyone, including family, friends and others, insult or talk down to you: never How often does anyone, including family, friends and others, threaten you with harm: never How often does anyone, including family, friends and others, scream or curse at you: never service: No Exam Narrative: Exam Narrative: Well-nourished well-developed patient, tearful. Alert and oriented. Answers questions appropriately.Thoughts are goal oriented and rational. Patient speaks in full sentences without needing to catch their breath. HEENT: Normocephalic atraumatic. Pupils are equally round reactive to light. Extraocular muscles are intact. Conjunctivae are moist without any icterus noted. Moist mucous membranes. Cardiovascular: Heart is regular rate and rhythm S1 and S2 are present without any murmurs. Lungs: Clear to auscultation bilaterally no wheezes rhonchi or rales are appreciated. Patient takes deep breaths without any discomfort. Abdomen: Soft and nondistended with normal bowel sounds. She does have some suprapubic discomfort. She does have left-sided CVA tenderness, right side is normal. Extremities: Bilateral lower extremities are without edema. Skin: Well perfused without any obvious rashes. Const: Vital Signs, click to edit/add: Vital Signs - 24 hr 04/24/25 17:53 04/24/25 18:30 04/24/25 18:38 Temperature 101.5 F H Pulse Rate 104 H Pulse Rate [Pulse Oximeter] 120 H Respiratory Rate 20 Blood Pressure Blood Pressure [Ri ght Upper Arm] 135/75 114/82 Pulse Oximetry 97 Oxygen Delivery Me thod Room Air 04/24/25 18:45 04/24/25 19:00 04/24/25 19:01 Temperature Pulse Rate 104 H 104 H 107 H Pulse Rate [Pulse Oximeter] Respiratory Rate Blood Pressure 98/59 L Blood Pressure [Ri ght Upper Arm] Pulse Oximetry 99 95 95 Oxygen Delivery Me thod 04/24/25 19:02 04/24/25 19:13 04/24/25 19:15 Temperature 98.9 F Pulse Rate 107 H Pulse Rate [Pulse Oximeter] 102 H Respiratory Rate 16 Blood Pressure Blood Pressure [Ri ght Upper Arm] 118/75 Pulse Oximetry 97 98 Oxygen Delivery Me thod Room Air 04/24/25 19:16 04/24/25 19:17 04/24/25 19:30 Temperature Pulse Rate 104 H 105 H 102 H Pulse Rate [Pulse Oximeter] Respiratory Rate 16 Blood Pressure 118/75 Blood Pressure [Ri ght Upper Arm] Pulse Oximetry 97 98 96 Oxygen Delivery Me thod Room Air 04/24/25 19:31 04/24/25 20:20 Temperature Pulse Rate 102 H 97 Pulse Rate [Pulse Oximeter] Respiratory Rate 16 18 Blood Pressure 112/74 116/77 Blood Pressure [Ri ght Upper Arm] Pulse Oximetry 97 99 Oxygen Delivery Me thod Room Air Room Air Course Course ED Course: Symptoms concerning for pyelonephritis. Patient presents febrile with tachycardia. IV established and she received oral ibuprofen and 1 L of normal saline. CBC shows a white cell count of 11.6 with 91.8% neutrophils. Chemistries are unremarkable aside from a slightly low sodium at 1:33 a.m.. LFTs are unremarkable. CRP is normal. Urine analysis shows cloudy urine with 1+ leukocyte esterase, 2-5 RBCs and greater than 100 wbc's. Culture pending. Given her tachycardia we did go ahead and do an EKG which shows sinus tachycardia with a pulse of 103. At this time patient is given a dose of IV Rocephin. She does respond to the ibuprofen her temperature was only 98.9. Pulse goes from 120-102. Because she is still slightly tachycardic we did go ahead and give her another L of normal saline. Her blood pressure was 118/75 when this was started. Pulse came down to 95 after 2 L of fluid. Vital Signs Vital signs: Initial Vital Signs Temperature 101.5 F H 04/24/25 17:53 Temperature Source Temporal Artery Scan 04/24/25 17:53 Pulse Rate 120 H 04/24/25 17:53 Pulse Rhythm Regular 04/24/25 17:53 Respiratory Rate 20 04/24/25 17:53 Blood Pressure 135/75 04/24/25 17:53 Blood Pressure Mean 95 04/24/25 17:53 Oxygen Delivery Method Room Air 04/24/25 17:53 Vital Signs Temperature 101.5 F H 04/24/25 17:53 Pulse Rate 120 H 04/24/25 17:53 Respiratory Rate 20 04/24/25 17:53 Blood Pressure 135/75 04/24/25 17:53 Oxygen Delivery Method Room Air 04/24/25 17:53 Temperature 98.9 F 04/24/25 19:13 Pulse Rate 97 04/24/25 20:20 Respiratory Rate 18 04/24/25 20:20 Blood Pressure 116/77 04/24/25 20:20 Pulse Oximetry 99 04/24/25 20:20 Oxygen Delivery Method Room Air 04/24/25 20:20 Medications Administered Medications: Discontinued Medications Generic Name Dose Route Start Last Admin Trade Name Freq PRN Reason Stop Dose Admin Sodium Chloride 1,000 mls @ 1,000 mls/hr 04/24/25 18:00 04/24/25 19:25 0.9 % Sodium Chloride 1000 Ml IV 04/24/25 18:59 Infused .Q1H STAN Infusion Ceftriaxone Sodium 1 gm/ 100 mls @ 200 mls/hr 04/24/25 19:03 04/24/25 19:50 Sodium Chloride IVPB 04/24/25 19:04 Infused ONCE ONE Infusion Sodium Chloride 1,000 mls @ 1,000 mls/hr 04/24/25 19:30 04/24/25 20:33 0.9 % Sodium Chloride 1000 Ml IV 04/24/25 20:29 Infused .Q1H STAN Infusion Ibuprofen 600 mg 04/24/25 18:00 04/24/25 18:06 Ibuprofen 400 Mg Tablet PO 04/24/25 18:01 600 mg ONCE ONE Administration Medical Decision Making MDM Narrative Medical decision making narrative: 54-year-old female with fever, flank pain, urinary symptoms all consistent with pyelonephritis. Patient received 1 dose of IV Rocephin while she was here will send her home with ciprofloxacin 500 b.i.d. for a week. Recommend close follow-up. Lab Data Lab results reviewed: Yes I reviewed the patient's lab results Labs: Lab Results 04/24/25 04/24/25 Range/Units 18:15 Unknown WBC 11.69 H (4.50-11.00) K/uL RBC 4.72 (4.00-5.20) m/uL Hgb 13.4 (12.0-16.0) gm/dL Hct 38.9 (33.0-51.0) % MCV 82 (80-100) fL MCH 28 (26-34) pg MCHC 34 (32-36) gm/dL RDW Coeff of Loren 11.7 (11.5-15.5) % Plt Count 262 (140-440) K/uL Neut % (Auto) 91.8 H (42.0-72.0) % Lymph % (Auto) 4.9 L (20-44) % Dukes % (Auto) 2.6 (0.0-11.0) % Eos % (Auto) 0.3 (0.0-7.0) % Baso % (Auto) 0.3 (0.0-3.0) % Neut # (Auto) 10.70 H (1.7-7.0) K/uL Lymph # (Auto) 0.60 L (0.90-2.90) K/uL Dukes # (Auto) 0.30 (0.00-0.90) K/UL Eos # (Auto) 0.00 (0.00-0.50) K/uL Baso # (Auto) 0.00 (0.00-0.30) K/uL Abs Immat Gran (auto) 0.00 (0.00-0.30) K/uL Imm/Tot Granulo (auto) 0.1 % Sodium 133 L (135-149) mmol/L Potassium 3.7 (3.6-5.1) mmol/L Chloride 102 (96-114) mmol/L Carbon Dioxide 21 (20-32) mmol/L Anion Gap 10 (7-15) mEq/L BUN 17 (7-30) mg/dL Creatinine 0.9 (0.5-1.5) mg/dL Estimated GFR 75 ml/min Glucose 93 (60-115) mg/dL Lactate 0.9 (0.5-1.9) mmol/L Calcium 8.8 (8.4-10.6) mg/dL Total Bilirubin 0.7 (0.1-1.5) mg/dL Direct Bilirubin 0.2 (0.0-0.5) mg/dL AST 26 (12-35) U/L ALT 15 (4-35) U/L Alkaline Phosphatase 29 L (40-150) U/L C-Reactive Protein 0.8 (0.5-1.0) mg/dL Total Protein 6.7 (6.0-8.3) g/dL Albumin 4.0 (3.3-5.0) g/dL Procalcitonin 0.07 (<0.50) ng/mL Urine Color Yellow (Yellow) Urine Appearance Slightly Cloudy A (Clear) Urine pH 5.5 (5.0-8.5) Ur Specific [place] 1.015 (1.000-1.030) Urine Protein Negative (Negative) Urine Glucose (UA) Negative (Negative) Urine Ketones Trace A (Negative) Urine Blood Trace-intact A (Negative) Urine Nitrite Negative (Negative) Urine Bilirubin Negative (Negative) Urine Urobilinogen 0.2 (0.2-1.0) Ur Leukocyte Esterase 1+ A (Negative) Urine RBC 2-5 A (0-2) Urine WBC >100 A (0-5) Ur Squamous Epith Cells None (None-Few) Urine Bacteria Few A (None) SARS-CoV-2 (PCR) Negative SARS-CoV-2 (Negative) Influenza Type A (PCR) Negative PCR FLU A (Negative) Influenza Type B (PCR) Negative PCR FLU B (Negative) ECG Data Attestation: I personally reviewed and interpreted this ECG as follows: Discharge Plan Discharge Clinical Impression: Pyelonephritis Patient Disposition: Home, Self-Care Condition: Stable Additional Instructions: Take all antibiotics as prescribed. Can take your 1st dose in the morning. Recommend you follow-up with your primary care provider in 2-3 days for a recheck. You should return to the emergency department if you feel like your symptoms are getting worse instead of better despite antibiotic treatment. Ciprofloxacin 500 mg orally 2 times per day for 7 days sent to [facility]. Prescriptions: No Action Digestive Probiotic 10 billion cell capsule 1 cap PO QDAY loratadine [Claritin] 10 mg tablet 10 mg PO QDAY cyclobenzaprine 5 mg tablet 5 mg PO BID PRN (Reason: muscle spasm) Qty: 90 1RF Zepbound 5 mg/0.5 mL pen injector 5 mg subcut calcium carbonate [Calcium 600] 600 mg calcium (1,500 mg) tablet 1,200 mg PO QDAY celecoxib [Celebrex] 200 mg capsule 200 mg PO BID PRN (Reason: pain) Qty: 90 3RF nitrofurantoin monohyd/m-cryst 100 mg capsule 1 cap PO BID estradiol 2 mg tablet 2 mg PO DAILY estradiol 0.01 % (0.1 mg/gram) cream 1 appful vaginal 3XW Qty: 42.5 3RF calcitriol 0.25 mcg capsule 0.25 mcg PO QDAY Qty: 90 1RF azithromycin 250 mg tablet See Rx Instructions PO .COMPLEX Qty: 6 0RF Rx Instructions: For 250 mg dose pack: take 500 mg today (day 1), then 250 mg for 4 days (days 2-5) PO prednisone 20 mg tablet 20 mg PO QDAY Qty: 5 0RF Follow Up/Referrals: Jennifer De La Vega MD [Primary Care Provider, Family Practice] Stand Alone Forms: [employer] Info Instructions
== END 2025-04-24 20:39 | disposition home or self-care (01) ==
PROVIDERS: Emergency Provider Family Medicine; PCP Family Medicine
DX: N10 Acute pyelonephritis (principal)
CPT/HCPCS: 36415; 80048; 80076; 81001; 83605; 84145; 85025; 86140; 87086; 87631; 93005; 96365; 99284; A9270; J0696; J7030

== ENCOUNTER 2025-05-13 14:37 | Outpatient (CLI) | payer BC, SELFPAY | END 2025-05-13 14:38 | disposition home or self-care (01) | LOC: NFLDREF 05-16 18:35 | PROVIDERS: PCP Family Medicine; Referring Provider Family Medicine; Visit Provider Physician Assistant Medical | DX: N12 Tubulo-interstitial nephritis, not specified as acute or chronic (principal) | CPT/HCPCS: 87086 ==

== ENCOUNTER 2025-07-04 16:05 | Outpatient (CLI) | payer BC, SELFPAY | END 2025-07-04 16:06 | disposition home or self-care (01) | PROVIDERS: PCP Family Medicine; Visit Provider Family Medicine | DX: E11.9 Type 2 diabetes mellitus without complications (principal); E55.9 Vitamin D deficiency, unspecified; E78.5 Hyperlipidemia, unspecified | CPT/HCPCS: 80053; 80061; 82043; 82306; 82570 ==